=== PATIENT | male | born 1945 | race Caucasian/White ===

== ENCOUNTER 2023-05-25 09:12 | Emergency (ER) | payer MEDICARE, SELFPAY ==
[2023-05-25 09:17] VITALS: BP 200/100; PULSE 88; RESP 18; TEMP 36.7; O2SAT 98; BMI 28.7
--- NOTE | 2023-05-25 09:23 | PC.NURSE ---
PT C/O BILATERAL FOOT ITCHING. PT DOES APPEARS TO HAVE CHRONIC DISCOLORATION TO BILATERAL FOOT. PT STATES ATTEMPTED CREAM AT HOME WITH NO RELIEF. BILATERAL PEDAL PULSE STRONG
--- NOTE | 2023-05-25 09:34 | ED.SKABFB1 ---
HPI - Skin/Abscess/Foreign Bdy General Chief complaint: Skin/Abscess/Foreign Body Stated complaint: rash Time Seen by Provider: 05/25/23 09:34 Source: patient Mode of arrival: walk-in History of Present Illness HPI narrative: Presents to emergency department complaining of pruritus. Patient states he has been itchy since yesterday on my worse to bilateral feet and ankles and arms and back. He denies any rashes. Denies ever having anything like this before. He did an IV no bath and washed his feet and nothing has helped. He states he was not able to sleep all night because of the itchiness. She had some generic Benadryl he thinks he took 1 pill last night but did not take any this morning. He is on Coumadin his INR was 2.5 last time he had it checked last week. He denies any hematuria, dysuria. She denies any new medications. He has not changed detergents, or been exposed to anything unusual. Patient's states if he had a steroid he will feel better. He denies any nausea, vomiting. He states he took his hydralazine 100 mg by mouth this morning. Related Data Previous Rx's Medication Instructions Recorded hydroxyzine HCl 25 mg tablet 25 mg PO TID PRN itching #20 tabs 05/25/23 Allergies Allergy/AdvReac Type Severity Reaction Status Date / Time aspirin Allergy Unknown Verified 05/25/23 09:32 cephalexin [From Keflex] Allergy Unknown Verified 05/25/23 09:32 codeine Allergy Unknown Verified 05/25/23 09:32 indomethacin [From Indocin] Allergy Unknown Verified 05/25/23 09:32 metoclopramide [From Reglan] Allergy Unknown Verified 05/25/23 09:32 minocycline Allergy Unknown Verified 05/25/23 09:32 Penicillins Allergy Unknown Verified 05/25/23 09:32 Sulfa (Sulfonamide Allergy Unknown Verified 05/25/23 09:32 Antibiotics) tetracycline Allergy Unknown Verified 05/25/23 09:32 erytromycin ethylsuccinate Allergy Unknown Uncoded 05/25/23 09:32 Review of Systems ROS Status of ROS 10 or more systems reviewed and unremarkable except as noted in history and below Exam Narrative Exam Narrative: Nurses notes and vital signs reviewed and patient is not hypoxic. General: Nontoxic, Well-appearing and in no apparent distress. Skin: Warm, dry, no pallor noted. Excoriation to bilateral lower extremities feet and ankles. Right mid back and forearms. Head: Normocephalic, atraumatic. Neck: Supple, non-tender. Eye: Pupils are equal, round and EOMI. No scleral icterus. Ears, Nose, Mouth, and Throat: TM clear, no posterior oropharynx erythema or nasal mucosal hypertrophy, uvula is mid-line Oral mucosa is moist Cardiovascular: Regular Rate and Rhythm without murmur, gallop or rub. Respiratory: No accessory muscle use or respiratory distress. Lungs are clear to auscultation, no wheezing, rales or rhonchi Chest Wall: no tenderness Back: No midline thoracic or lumbar vertebral tenderness. No CVA tenderness Musculoskeletal: normal ROM, no calf or popliteal tenderness, no lower extremity edema/swelling, GI: Abdomen is soft, non-distended. Normal bowel sounds. No masses appreciated. No tenderness to palpation. No rebound, guarding, or rigidity noted. Neurological: A&O x4. No cranial nerve dysfunction observed. No truncal ataxia. Moves all extremities. Psychiatric: Cooperative and interactive. Normal mood and affect. Constitutional Vital Signs, click to edit/add: Last Vital Signs Temp 98.0 F 05/25/23 09:17 Pulse 88 05/25/23 09:17 Resp 18 05/25/23 09:17 BP 150/80 H 05/25/23 13:03 Pulse Ox 98 05/25/23 09:17 O2 Del Method Room Air 05/25/23 09:17 Course Vital Signs Vital signs: Vital Signs Temperature 98.0 F 05/25/23 09:17 Pulse Rate 88 05/25/23 09:17 Respiratory Rate 18 05/25/23 09:17 Blood Pressure 200/100 H 05/25/23 09:17 Pulse Oximetry 98 05/25/23 09:17 Oxygen Delivery Method Room Air 05/25/23 09:17 Temperature 98.0 F 05/25/23 09:17 Pulse Rate 88 05/25/23 09:17 Respiratory Rate 18 05/25/23 09:17 Blood Pressure 150/80 H 05/25/23 13:03 Pulse Oximetry 98 05/25/23 09:17 Oxygen Delivery Method Room Air 05/25/23 09:17 MDM - Skin/Abscess/Foreign Bdy MDM Narrative Medical decision making narrative: Patient was given Benadryl which helped a little bit but was still stating that he was a chief. Patient was given Decadron. He has requested steroid. I did lab work just because of the patient's history. We will also discussed warfarin rash but there is no signs of erythema multiforme. Patient has chronic kidney disease. The rest of his labs are unremarkable. Patient was given a prescription for Hydroxyzine, and advised follow-up with primary care doctor in the morning. At this time the patient is without objective evidence of an acute process requiring hospitalization or inpatient management. The patient has remained hemodynamically stable. No additional indication for emergent studies at this time. I answered all questions. Discussed discharge instructions including standard anticipatory guidance and what should prompt a return to the emergency department, including if they get worse are not getting better or develops any new or concerning symptoms. I've given them specific time frame in which to follow-up, and who to follow-up with. The patient demonstrates understanding. Patient is nontoxic and stable for discharge with outpatient follow-up. This note was created with the assistance of a speech recognition program. Although the intention is to generate documents that actually reflects the content of the visit, no guarantees can be provided that every mistake has been identified and corrected by editing. Differential Diagnosis Differential diagnosis: Likely abscess of skin or subcutaneous tissue, viral exanthem, dermatophytosis, urticaria, herpes zoster, allergic reaction to drug, cellulitis, eczema, insect bites, impetigo and contact dermatitis Lab Data Attestation: I reviewed the patient's lab results. Labs: Lab Results 05/25/23 Range/Units 09:49 WBC 7.7 (4.0-11.0) 10^3/uL RBC 3.66 L (4.70-6.10) 10^6/uL Hgb 11.5 L (14.0-18.0) g/dL Hct 34.3 L (42.0-54.0) % MCV 93.7 (80.0-94.0) fL MCH 31.4 (25.9-34.0) pg MCHC 33.5 (29.9-35.2) g/dL RDW 14.2 (11.0-15.0) % Plt Count 175 (150-450) 10^3/uL MPV 9.3 L (9.5-13.5) fL Neut % (Auto) 71.4 (43.0-75.0) % Lymph % (Auto) 12.7 L (20.5-60.0) % [place] % (Auto) 9.4 (1.7-12.0) % Eos % (Auto) 5.6 (0.9-7.0) % Baso % (Auto) 0.5 (0.2-2.0) % Neut # (Auto) 5.5 (1.4-6.5) 10^3/uL Lymph # (Auto) 1.0 L (1.2-3.8) 10^3/uL [place] # (Auto) 0.7 (0.3-0.8) 10^3/uL Eos # (Auto) 0.4 (0.0-0.7) 10^3/uL Baso # (Auto) 0.0 (0.0-0.1) 10^3/uL Abs Immat Gran (auto) 0.03 (0.00-0.03) 10^3/uL Imm/Tot Granulo (auto) 0.4 (0.0-0.5) % PT 21.9 H (9.0-11.6) sec INR 2.16 Sodium 141 (136-145) mmol/L Potassium 3.4 L (3.5-5.1) mmol/L Chloride 103 (98-107) mmol/L Carbon Dioxide 28.5 (21.0-32.0) mmol/L Anion Gap 12.9 BUN 26.0 H (7.0-18.0) mg/dL Creatinine 2.03 H (0.70-1.30) mg/dL Est GFR ( Amer) 39 L (>=60) Est GFR (Non-Af Amer) 32 L (>=60) BUN/Creatinine Ratio 12.8 Glucose 97 (74-106) mg/dL Calcium 8.4 L (8.5-10.1) mg/dL Total Bilirubin 0.4 (0.2-1.0) mg/dL AST 13 L (15-37) U/L ALT 18 (16-63) U/L Alkaline Phosphatase 94 (46-116) U/L Total Protein 7.6 (6.4-8.2) g/dL Albumin 3.8 (3.4-5.0) g/dL Globulin 3.8 g/dL Albumin/Globulin Ratio 1.0 Discharge Plan Discharge Chief Complaint: Skin/Abscess/Foreign Body Clinical Impression: Dermatitis, Chronic kidney disease (CKD), Hypertension Patient Disposition: Home, Self-Care Time of Disposition Decision: 13:06 Condition: Good Mode of Transportation: Private Vehicle Prescriptions / Home Meds: New hydroxyzine HCl 25 mg tablet 25 mg PO TID PRN (Reason: itching) Qty: 20 0RF Instructions: Chronic Kidney Disease (ED), Chronic Hypertension (ED), Dermatitis (ED) Stand Alone Forms: Portal Instructions Referrals: Physician,Non-Staff, MD [Primary Care Provider] - 1 week Discharge Date/Time: 05/25/23 13:19
[2023-05-25] MEDS: DIPHENHYDRAMINE HCL 50 MG/ML (1ML) VIAL IV (09:55)
[2023-05-25 09:58] LABS: Basophils Percent Auto 0.5 % (0.2-2.0); Eosinophils Absolute Auto 0.4 10^3/uL (0.0-0.7); Eosinophils Percent Auto 5.6 % (0.9-7.0); Hematocrit 34.3 % (42.0-54.0); Hemoglobin 11.5 g/dL (14.0-18.0); Immature Granulocytes Abs Auto 0.03 10^3/uL (0.00-0.03); Immature Granulocytes Pct Auto 0.4 % (0.0-0.5); Lymphocytes Percent Auto 12.7 % (20.5-60.0); Mean Corpuscular HGB Conc 33.5 g/dL (29.9-35.2); Mean Corpuscular Hemoglobin 31.4 pg (25.9-34.0); Mean Corpuscular Volume 93.7 fL (80.0-94.0); Mean Platelet Volume 9.3 fL (9.5-13.5); Monocytes Absolute Auto 0.7 10^3/uL (0.3-0.8); Monocytes Percent Auto 9.4 % (1.7-12.0); Neutrophils Absolute Auto 5.5 10^3/uL (1.4-6.5); Neutrophils Percent Auto 71.4 % (43.0-75.0); Platelet Count 175 10^3/uL (150-450); Red Blood Count 3.66 10^6/uL (4.70-6.10); Red Cell Distribution Width 14.2 % (11.0-15.0); White Blood Count 7.7 10^3/uL (4.0-11.0)
[2023-05-25 10:18] LABS: INR 2.16; Prothrombin Time 21.9 sec (9.0-11.6)
[2023-05-25 10:24] VITALS: BP 220/100
[2023-05-25] MEDS: HYDRALAZINE HCL 25 MG TABLET 50 MG PO (10:24)
[2023-05-25 10:25] LABS: Alanine Aminotransferase 18 U/L (16-63); Albumin Level 3.8 g/dL (3.4-5.0); Alkaline Phosphatase 94 U/L (46-116); Anion Gap 12.9; Aspartate Amino Transferase 13 U/L (15-37); BUN Creatinine Ratio 12.8; Bilirubin Total 0.4 mg/dL (0.2-1.0); Calcium 8.4 mg/dL (8.5-10.1); Carbon Dioxide 28.5 mmol/L (21.0-32.0); Chloride 103 mmol/L (98-107); Estimated GFR (African America 39 (>=60); Estimated GFR (Non-African Ame 32 (>=60); Globulin 3.8 g/dL; Glucose 97 mg/dL (74-106); Potassium 3.4 mmol/L (3.5-5.1); Sodium 141 mmol/L (136-145); Total Protein 7.6 g/dL (6.4-8.2)
[2023-05-25 11:35] VITALS: BP 220/100
[2023-05-25 12:21] VITALS: BP 220/100
[2023-05-25] MEDS: LORAZEPAM 2 MG/ML 1 ML VIAL 1 MG IV (12:21)
[2023-05-25] MEDS: ENALAPRILAT DIHYDRATE 1.25 MG/ML VIAL 2.5 MG IV (12:21)
[2023-05-25 13:03] VITALS: BP 150/80
== END 2023-05-25 13:19 | disposition home or self-care (01) ==
PROVIDERS: Emergency Provider Emergency Medicine
DX: Z79.01 Long term (current) use of anticoagulants (principal); L30.9 Dermatitis, unspecified; I12.9 Hypertensive chronic kidney disease with stage 1 through stage 4 chronic kidney disease, or unspecified chronic kidney disease; N18.9 Chronic kidney disease, unspecified
CPT/HCPCS: 36415; 80053; 85025; 85610; 96374; 96375; 99284

== ENCOUNTER 2023-06-02 20:13 | Emergency (ER) | payer MEDICARE, SELFPAY ==
[2023-06-02 20:39] VITALS: BP 179/79; PULSE 87; RESP 18; TEMP 37.1; BMI 26.2
--- NOTE | 2023-06-02 22:05 | ED.GENADUL1 ---
HPI - General Adult General Chief complaint: Abdominal Pain Stated complaint: constipation Time Seen by Provider: 06/02/23 21:57 Source: patient Mode of arrival: walker History of Present Illness HPI narrative: This 77-year-old male presents for evaluation of constipation. He states he has not taken his MiraLAX or stool softeners in the past 3 days and has not been able to have a bowel movement for the past 3 days. He did take MiraLAX this morning. He is not passing gas. He states he is unable to have a bowel movement. He is mildly nauseated but not had any vomiting. He has not recently had any diarrhea. He is not on any narcotic analgesics. He denies any chest pain or shortness of breath. He has been urinating normally. Related Data Home Medications Medication Instructions Recorded Confirmed carvedilol 6.25 mg tablet 6.25 mg PO DAILY 06/02/23 06/02/23 duloxetine 60 mg capsule,delayed 60 mg PO QAM 06/02/23 06/02/23 release dutasteride 0.5 mg capsule 0.5 mg PO DAILY 06/02/23 06/02/23 lactulose 10 gram/15 mL oral 15 ml PO DAILY 06/02/23 06/02/23 solution (Constulose) liothyronine 5 mcg tablet 5 mcg PO DAILY 06/02/23 06/02/23 magnesium oxide 400 mg (241.3 mg 400 mg PO DAILY 06/02/23 06/02/23 magnesium) tablet montelukast 10 mg tablet 10 mg PO DAILY 06/02/23 06/02/23 pantoprazole 20 mg tablet,delayed 20 mg PO DAILY 06/02/23 06/02/23 release rosuvastatin 5 mg tablet 5 mg PO DAILY 06/02/23 06/02/23 tamsulosin 0.4 mg capsule 0.4 mg PO BID 06/02/23 06/02/23 warfarin 5 mg tablet 5 mg PO DAILY 06/02/23 06/02/23 Previous Rx's Medication Instructions Recorded hydroxyzine HCl 25 mg tablet 25 mg PO TID PRN itching #20 tabs 05/25/23 Allergies Allergy/AdvReac Type Severity Reaction Status Date / Time aspirin Allergy Unknown Verified 05/25/23 09:32 cephalexin [From Keflex] Allergy Unknown Verified 05/25/23 09:32 codeine Allergy Unknown Verified 05/25/23 09:32 indomethacin [From Indocin] Allergy Unknown Verified 05/25/23 09:32 metoclopramide [From Reglan] Allergy Unknown Verified 05/25/23 09:32 minocycline Allergy Unknown Verified 05/25/23 09:32 Penicillins Allergy Unknown Verified 05/25/23 09:32 Sulfa (Sulfonamide Allergy Unknown Verified 05/25/23 09:32 Antibiotics) tetracycline Allergy Unknown Verified 05/25/23 09:32 erytromycin ethylsuccinate Allergy Unknown Uncoded 05/25/23 09:32 Review of Systems ROS Status of ROS 10 or more systems reviewed and unremarkable except as noted in history and below Exam Narrative Exam Narrative: Nurses note and vital signs reviewed and patient is not hypoxic.He is lying on his left side, no respiratory distress General: The patient appears well and in no apparent distress. Patient is resting comfortably on cart. Skin: Warm, dry, no pallor noted. There is no rash noted. Head: Normocephalic, atraumatic Eye: Normal conjunctiva, no drainage, EOMI. PERRL Cardiovascular: Regular Rate and Rhythm 1S2, no murmurs rubs or gallops appreciated Respiratory: Patient is in no distress, no accessory muscle use, lungs are clear to auscultation, no wheezing, rales or rhonchi Back: non-tender, no CVA tenderness bilaterally to percussion. GI: Normal bowel sounds, Soft with distended, nontender, large amount of soft stool in rectal vault, no rectal masses or bleeding noted Musculoskeletal: The patient has no evidence of calf tenderness, no pitting edema, symmetrical pulses noted bilaterally Neurological: A&O x4, normal speech Psychiatric: Cooperative Constitutional Vital Signs, click to edit/add: Last Vital Signs Temp 98.7 F 06/02/23 20:39 Pulse 87 06/02/23 20:39 Resp 18 06/02/23 20:39 BP 179/79 H 06/02/23 20:39 Course Course Hospital Course: 50 cc of surgilube was placed into the patients rectum and approx 30 minutes later he had a large formed bowel movmement, he then received a soap suds enema and passed a large volume of soft stool with resolution of his discomfort. He will be discharged home with [facility] to resume his medications to prevent constipation and a Rx for colace. Vital Signs Vital signs: Vital Signs Temperature 98.7 F 06/02/23 20:39 Pulse Rate 87 06/02/23 20:39 Respiratory Rate 18 06/02/23 20:39 Blood Pressure 179/79 H 06/02/23 20:39 Temperature 98.7 F 06/02/23 20:39 Pulse Rate 87 08 20:39 Respiratory Rate 18 06/02/23 20:39 Blood Pressure 179/79 H 06/02/23 20:39 Medical Decision Making [facility] Narrative Medical decision making narrative: This 77-year-old male presents for evaluation of constipation for the past 3 days. He is supposed to be taking MiraLAX on a daily basis but did not take it for the past 3 days until earlier today when he realized he was constipated. His abdomen is soft. He has not having any vomiting. He has not had any narcotic analgesics. His abdomen was soft. There was a large volume of soft stool in his rectum that he was unable to pass. 50 mL of surgery lube was placed into the rectum to loosen up his stool and he was unable to have a bowel movement on his own. He was then given a soapsuds enema with a large volume of stool recovered. He is feeling better and will be discharged home with prescription for Colace to use for the next 10 days. Discharge Plan Discharge Chief Complaint: Abdominal Pain Clinical Impression: Constipation Patient Disposition: Home, Self-Care Time of Disposition Decision: 23:38 Condition: Good Prescriptions / Home Meds: No Action hydroxyzine HCl 25 mg tablet 25 mg PO TID PRN (Reason: itching) Qty: 20 0RF carvedilol 6.25 mg tablet 6.25 mg PO DAILY duloxetine 60 mg capsule,delayed release(DR/EC) 60 mg PO QAM dutasteride 0.5 mg capsule 0.5 mg PO DAILY lactulose [Constulose] 10 gram/15 mL solution 15 ml PO DAILY liothyronine 5 mcg tablet 5 mcg PO DAILY magnesium oxide 400 mg (241.3 mg magnesium) tablet 400 mg PO DAILY montelukast 10 mg tablet 10 mg PO DAILY pantoprazole 20 mg tablet,delayed release (DR/EC) 20 mg PO DAILY rosuvastatin 5 mg tablet 5 mg PO DAILY tamsulosin 0.4 mg capsule 0.4 mg PO BID warfarin 5 mg tablet 5 mg PO DAILY Stand Alone Forms: Portal Instructions Referrals: Physician,Non-Staff, MD [Primary Care Provider] - 1 week
== END 2023-06-03 00:13 | disposition home or self-care (01) ==
PROVIDERS: Emergency Provider Emergency Medicine
DX: K59.00 Constipation, unspecified (principal); Z79.899 Other long term (current) drug therapy; Z79.01 Long term (current) use of anticoagulants
CPT/HCPCS: 99283

== ENCOUNTER 2023-08-25 14:07 | Emergency (ER) | payer MEDICARE, SELFPAY ==
[2023-08-25 14:09] VITALS: BP 184/96; PULSE 71; RESP 20; TEMP 36.9; O2SAT 98; BMI 25.7
--- NOTE | 2023-08-25 14:26 | XR_ITS ---
The [address] [address] Patient Name: ALBIN VILLALTA MRN: [id number] date: 1945 Sex: M Assigned Patient Location: ER Current Patient Location: ED.MAIN Accession/Order Number: [id number] Exam Date: 08/25/2023 14:40 Report Date: 08/25/2023 15:19 At the request of: SHANNON GREGORY Procedure: XR abdomen 1V EXAMINATION: XR abdomen 1V HISTORY: constipation , post abdominal pain, painful to sit COMPARISON: No relevant comparison available. FINDINGS: BOWEL GAS PATTERN: Large amount of stool within rectal vault. No abnormal bowel dilation or evidence of obstruction. CALCIFICATIONS: None significant. OTHER: Right scoliotic curvature of lumbar spine. Prior left hip replacement. Filter within the IVC. XR/XR abdomen 1V IMPRESSION: 1. Large stool ball within rectal vault suggestive of fecal impaction. No bowel obstruction. Electronically authenticated by: RILEY NEVES Date: 08/25/2023 15:19
--- NOTE | 2023-08-25 14:27 | ED.ABDPAIN1 ---
Documented by User: JUAN Lyons 08/25/23 16:03 HPI - Abdominal Pain General Chief Complaint: Abdominal Pain Stated Complaint: CONSTIPATION Time Seen by Provider: 08/25/23 14:26 Source: patient Mode of arrival: ambulance Limitations: no limitations History of Present Illness HPI narrative: 77-year-old male presents by squad for requesting an enema for constipation. His last good sized bowel movement was 3 days ago. He tried MiraLAX and a couple fleets enemas today with minimal relief. He is still passing gas. He states that he is uncomfortable. Denies radiation of pain. Denies fever, back pain, dysuria, n/v/d Related Data Home Medications Medication Instructions Recorded Confirmed carvedilol 6.25 mg tablet 6.25 mg PO DAILY 06/02/23 06/02/23 duloxetine 60 mg capsule,delayed 60 mg PO QAM 06/02/23 06/02/23 release dutasteride 0.5 mg capsule 0.5 mg PO DAILY 06/02/23 06/02/23 lactulose 10 gram/15 mL oral 15 ml PO DAILY 06/02/23 06/02/23 solution (Constulose) liothyronine 5 mcg tablet 5 mcg PO DAILY 06/02/23 06/02/23 magnesium oxide 400 mg (241.3 mg 400 mg PO DAILY 06/02/23 06/02/23 magnesium) tablet montelukast 10 mg tablet 10 mg PO DAILY 06/02/23 06/02/23 pantoprazole 20 mg tablet,delayed 20 mg PO DAILY 06/02/23 06/02/23 release rosuvastatin 5 mg tablet 5 mg PO DAILY 06/02/23 06/02/23 tamsulosin 0.4 mg capsule 0.4 mg PO BID 06/02/23 06/02/23 warfarin 5 mg tablet 5 mg PO DAILY 06/02/23 06/02/23 Previous Rx's Medication Instructions Recorded hydroxyzine HCl 25 mg tablet 25 mg PO TID PRN itching #20 tabs 05/25/23 Allergies Allergy/AdvReac Type Severity Reaction Status Date / Time aspirin Allergy Unknown Verified 05/25/23 09:32 cephalexin [From Keflex] Allergy Unknown Verified 05/25/23 09:32 codeine Allergy Unknown Verified 05/25/23 09:32 indomethacin [From Indocin] Allergy Unknown Verified 05/25/23 09:32 metoclopramide [From Reglan] Allergy Unknown Verified 05/25/23 09:32 minocycline Allergy Unknown Verified 05/25/23 09:32 Penicillins Allergy Unknown Verified 05/25/23 09:32 Sulfa (Sulfonamide Allergy Unknown Verified 05/25/23 09:32 Antibiotics) tetracycline Allergy Unknown Verified 05/25/23 09:32 erytromycin ethylsuccinate Allergy Unknown Uncoded 05/25/23 09:32 Review of Systems ROS Status of ROS 10 or more systems reviewed and unremarkable except as noted in history and below [facility] Social History Smoking status: Never smoker Exam Narrative Exam Narrative: General: alert, no distress, talking in full an complete sentences skin: warm, dry, intact head: normocephalic, atraumatic eyes: EOMI nose: nares patent neck: supple, trachea midline respiratory: non-labored extremities: FROM x 4, strength +5/5 abd: soft, minimal generalized tenderness, no guarding or rigidity, no peritoneal signs, normal BS neuro: A&Ox3 psych: appropriate mood and affect, cooperative Constitutional Vital Signs, click to edit/add: Last Vital Signs Temp 98.5 F 08/25/23 14:09 Pulse 71 08/25/23 14:09 Resp 20 08/25/23 14:09 BP 184/96 H 08/25/23 14:09 Pulse Ox 98 08/25/23 14:09 O2 Del Method Room Air 08/25/23 14:09 Course Vital Signs Vital signs: Vital Signs Temperature 98.5 F 08/25/23 14:09 Pulse Rate 71 08/25/23 14:09 Respiratory Rate 20 08/25/23 14:09 Blood Pressure 184/96 H 08/25/23 14:09 Pulse Oximetry 98 08/25/23 14:09 Oxygen Delivery Method Room Air 08/25/23 14:09 Temperature 98.5 F 08/25/23 14:09 Pulse Rate 71 08/25/23 14:09 Respiratory Rate 20 08/25/23 14:09 Blood Pressure 184/96 H 08/25/23 14:09 Pulse Oximetry 98 08/25/23 14:09 Oxygen Delivery Method Room Air 08/25/23 14:09 MDM - Abdominal Pain MDM Narrative Medical decision making narrative: Prelim x-ray shows a fecal impaction will be given a soapsuds enema. Patient had significant relief as fecal impaction was removed and he had 3 large bowel movements and complete relief of his pain. F/u with PCP. afebrile, not tachypneic, not tachycardic, tolerating p.o., not hypoxic, non toxic appearing and ambulating at baseline and hemodynamically stable to be d/c. answered all questions. pt in agreement with tx. educated when to return to ER. Discharge Plan Discharge Chief Complaint: Abdominal Pain Clinical Impression: Fecal impaction in rectum Constipation Qualifiers: Constipation type: unspecified constipation type Qualified Code(s): K59.00 - Constipation, unspecified Patient Disposition: Home, Self-Care Time of Disposition Decision: 16:01 Condition: Good Mode of Transportation: Private Vehicle Prescriptions / Home Meds: No Action hydroxyzine HCl 25 mg tablet 25 mg PO TID PRN (Reason: itching) Qty: 20 0RF carvedilol 6.25 mg tablet 6.25 mg PO DAILY duloxetine 60 mg capsule,delayed release(DR/EC) 60 mg PO QAM dutasteride 0.5 mg capsule 0.5 mg PO DAILY lactulose [Constulose] 10 gram/15 mL solution 15 ml PO DAILY liothyronine 5 mcg tablet 5 mcg PO DAILY magnesium oxide 400 mg (241.3 mg magnesium) tablet 400 mg PO DAILY montelukast 10 mg tablet 10 mg PO DAILY pantoprazole 20 mg tablet,delayed release (DR/EC) 20 mg PO DAILY rosuvastatin 5 mg tablet 5 mg PO DAILY tamsulosin 0.4 mg capsule 0.4 mg PO BID warfarin 5 mg tablet 5 mg PO DAILY Instructions: Constipation (ED), Fecal Impaction (ED) Stand Alone Forms: Portal Instructions Referrals: Physician,Non-Staff, [Primary Care Provider] - 1 week Documented by User: Jose Armando Egan MD 08/25/23 16:22 HPI - Abdominal Pain General Chief Complaint: Abdominal Pain Stated Complaint: CONSTIPATION Time Seen by Provider: 10/30/23 14:26 Related Data Home Medications Medication Instructions Recorded Confirmed carvedilol 6.25 mg tablet 6.25 mg PO DAILY 06/02/23 06/02/23 duloxetine 60 mg capsule,delayed 60 mg PO QAM 06/02/23 06/02/23 release dutasteride 0.5 mg capsule 0.5 mg PO DAILY 06/02/23 06/02/23 lactulose 10 gram/15 mL oral 15 ml PO DAILY 06/02/23 06/02/23 solution (Constulose) liothyronine 5 mcg tablet 5 mcg PO DAILY 06/02/23 06/02/23 magnesium oxide 400 mg (241.3 mg 400 mg PO DAILY 06/02/23 06/02/23 magnesium) tablet montelukast 10 mg tablet 10 mg PO DAILY 06/02/23 06/02/23 pantoprazole 20 mg tablet,delayed 20 mg PO DAILY 06/02/23 06/02/23 release rosuvastatin 5 mg tablet 5 mg PO DAILY 06/02/23 06/02/23 tamsulosin 0.4 mg capsule 0.4 mg PO BID 06/02/23 06/02/23 warfarin 5 mg tablet 5 mg PO DAILY 06/02/23 06/02/23 Previous Rx's Medication Instructions Recorded hydroxyzine HCl 25 mg tablet 25 mg PO TID PRN itching #20 tabs 05/25/23 Allergies Allergy/AdvReac Type Severity Reaction Status Date / Time aspirin Allergy Unknown Verified 05/25/23 09:32 cephalexin [From Keflex] Allergy Unknown Verified 05/25/23 09:32 codeine Allergy Unknown Verified 05/25/23 09:32 indomethacin [From Indocin] Allergy Unknown Verified 05/25/23 09:32 metoclopramide [From Reglan] Allergy Unknown Verified 05/25/23 09:32 minocycline Allergy Unknown Verified 05/25/23 09:32 Penicillins Allergy Unknown Verified 05/25/23 09:32 Sulfa (Sulfonamide Allergy Unknown Verified 05/25/23 09:32 Antibiotics) tetracycline Allergy Unknown Verified 05/25/23 09:32 erytromycin ethylsuccinate Allergy Unknown Uncoded 05/25/23 09:32 PFSH PFSH Social History Smoking status: Never smoker Exam Constitutional Vital Signs, click to edit/add: Last Vital Signs Temp 98.5 F 10/30/23 14:09 Pulse 71 08/25/23 14:09 Resp 20 08/25/23 14:09 BP 184/96 H 08/25/23 14:09 Pulse Ox 98 08/25/23 14:09 O2 Del Method Room Air 08/25/23 14:09 Course Vital Signs Vital signs: Vital Signs Temperature 98.5 F 08/25/23 14:09 Pulse Rate 71 08/25/23 14:09 Respiratory Rate 20 08/25/23 14:09 Blood Pressure 184/96 H 08/25/23 14:09 Pulse Oximetry 98 08/25/23 14:09 Oxygen Delivery Method Room Air 08/25/23 14:09 Temperature 98.5 F 08/25/23 14:09 Pulse Rate 71 08/25/23 14:09 Respiratory Rate 20 08/25/23 14:09 Blood Pressure 184/96 H 08/25/23 14:09 Pulse Oximetry 98 08/25/23 14:09 Oxygen Delivery Method Room Air 08/25/23 14:09 MDM - Abdominal Pain MDM Narrative Medical decision making narrative: Prelim x-ray shows a fecal impaction will be given a soapsuds enema. Patient had significant relief as fecal impaction was removed and he had 3 large bowel movements and complete relief of his pain. F/u with PCP. afebrile, not tachypneic, not tachycardic, tolerating p.o., not hypoxic, non toxic appearing and ambulating at baseline and hemodynamically stable to be d/c. answered all questions. pt in agreement with tx. educated when to return to ER. I, Dr Egan, have reviewed the above progress note and course of action in the ER; agree with the above. I have personally seen and evaluated this patient, gone over history and physical, and discussed disposition and treatment plan with the patient. Discharge Plan Discharge Chief Complaint: Abdominal Pain Clinical Impression: Fecal impaction in rectum Constipation Qualifiers: Constipation type: unspecified constipation type Qualified Code(s): K59.00 - Constipation, unspecified Patient Disposition: Home, Self-Care Time of Disposition Decision: 16:01 Condition: Good Mode of Transportation: Private Vehicle Prescriptions / Home Meds: No Action hydroxyzine HCl 25 mg tablet 25 mg PO TID PRN (Reason: itching) Qty: 20 0RF carvedilol 6.25 mg tablet 6.25 mg PO DAILY duloxetine 60 mg capsule,delayed release(DR/EC) 60 mg PO QAM dutasteride 0.5 mg capsule 0.5 mg PO DAILY lactulose [Constulose] 10 gram/15 mL solution 15 ml PO DAILY liothyronine 5 mcg tablet 5 mcg PO DAILY magnesium oxide 400 mg (241.3 mg magnesium) tablet 400 mg PO DAILY montelukast 10 mg tablet 10 mg PO DAILY pantoprazole 20 mg tablet,delayed release (DR/EC) 20 mg PO DAILY rosuvastatin 5 mg tablet 5 mg PO DAILY tamsulosin 0.4 mg capsule 0.4 mg PO BID warfarin 5 mg tablet 5 mg PO DAILY Instructions: Constipation (ED), Fecal Impaction (ED) Stand Alone Forms: Portal Instructions Referrals: Physician,Non-Staff, MD [Primary Care Provider] - 1 week
== END 2023-08-25 16:50 | disposition home or self-care (01) ==
PROVIDERS: Emergency Provider Emergency Medicine; PCP Internal Medicine
DX: K56.41 Fecal impaction (principal); Z79.899 Other long term (current) drug therapy; Z79.890 Hormone replacement therapy; Z79.01 Long term (current) use of anticoagulants
CPT/HCPCS: 74018; 99283

== ENCOUNTER 2023-11-28 16:11 | Emergency (ER) | payer MEDICARE, SELFPAY ==
--- NOTE | 2023-11-28 16:17 | ED.GENADUL1 ---
HPI - General Adult General Chief complaint: Abdominal Pain Stated complaint: Frequent Urination, Constipation Time Seen by Provider: 11/28/23 16:17 History of Present Illness HPI narrative: This patient is here complaining of frequency of urination. He has not seen any blood in urine. He does not have any back or flank pain. He is a very limited historian. He does admit to having a TURP several years ago. He admits to some hesitancy urination. He also admits to not having much of a bowel movement for the last several days despite taking some [id number] laxatives. He is not currently on any antibiotics. Allergy was noted. Related Data Home Medications Medication Instructions Recorded Confirmed carvedilol 6.25 mg tablet 6.25 mg PO DAILY 06/02/23 11/28/23 duloxetine 60 mg capsule,delayed 60 mg PO QAM 06/02/23 11/28/23 release dutasteride 0.5 mg capsule 0.5 mg PO DAILY 06/02/23 11/28/23 lactulose 10 gram/15 mL oral 15 ml PO DAILY 06/02/23 06/02/23 solution (Constulose) liothyronine 5 mcg tablet 5 mcg PO DAILY 06/02/23 11/28/23 magnesium oxide 400 mg (241.3 mg 400 mg PO DAILY 06/02/23 11/28/23 magnesium) tablet montelukast 10 mg tablet 10 mg PO DAILY 06/02/23 11/28/23 pantoprazole 20 mg tablet,delayed 20 mg PO DAILY 06/02/23 06/02/23 release rosuvastatin 5 mg tablet 5 mg PO DAILY 06/02/23 11/28/23 tamsulosin 0.4 mg capsule 0.4 mg PO BID 06/02/23 11/28/23 warfarin 5 mg tablet 5 mg PO DAILY 06/02/23 11/28/23 baclofen 10 mg tablet 10 mg PO BEDTIME 11/28/23 11/28/23 furosemide 40 mg tablet 40 mg PO DAILY 11/28/23 11/28/23 Previous Rx's Medication Instructions Recorded hydroxyzine HCl 25 mg tablet 25 mg PO TID PRN itching #20 tabs 05/25/23 Allergies Allergy/AdvReac Type Severity Reaction Status Date / Time aspirin Allergy Unknown Verified 05/25/23 09:32 cephalexin [From Keflex] Allergy Unknown Verified 05/25/23 09:32 codeine Allergy Unknown Verified 05/25/23 09:32 indomethacin [From Indocin] Allergy Unknown Verified 05/25/23 09:32 metoclopramide [From Reglan] Allergy Unknown Verified 05/25/23 09:32 minocycline Allergy Unknown Verified 05/25/23 09:32 Penicillins Allergy Unknown Verified 05/25/23 09:32 Sulfa (Sulfonamide Allergy Unknown Verified 05/25/23 09:32 Antibiotics) tetracycline Allergy Unknown Verified 05/25/23 09:32 erytromycin ethylsuccinate Allergy Unknown Uncoded 05/25/23 09:32 PFSH PFSH Social History Smoking status: Never smoker Exam Narrative Exam Narrative: Awake alert does not appear to be uncomfortable. Examination abdomen it is not distended there is no peritoneal findings or discomfort with palpation. External genitalia appear normal. He does have a diaper on. His legs do not show any peripheral edema. We asked the patient to void and then we did a postvoid bladder scan. He voided approximately 400 cc clear yellow urine. His postvoid bladder scan showed 70 cc urine. Medical Decision Making MDM Narrative Medical decision making narrative: The patient's urinalysis does not indicate any infection. His kidney function is stable. Glucose is normal. Does not have any indication of sepsis or urinary tract infection at this time. He has constipated, the abdominal series confirms stool bolus at the rectum. We will advise a fleets enema. Discharge Plan Discharge Chief Complaint: Abdominal Pain Clinical Impression: Acute constipation Patient Disposition: Home, Self-Care Time of Disposition Decision: 17:38 Prescriptions / Home Meds: No Action hydroxyzine HCl 25 mg tablet 25 mg PO TID PRN (Reason: itching) Qty: 20 0RF carvedilol 6.25 mg tablet 6.25 mg PO DAILY duloxetine 60 mg capsule,delayed release(DR/EC) 60 mg PO QAM dutasteride 0.5 mg capsule 0.5 mg PO DAILY lactulose [Constulose] 10 gram/15 mL solution 15 ml PO DAILY liothyronine 5 mcg tablet 5 mcg PO DAILY magnesium oxide 400 mg (241.3 mg magnesium) tablet 400 mg PO DAILY montelukast 10 mg tablet 10 mg PO DAILY pantoprazole 20 mg tablet,delayed release (DR/EC) 20 mg PO DAILY rosuvastatin 5 mg tablet 5 mg PO DAILY tamsulosin 0.4 mg capsule 0.4 mg PO BID warfarin 5 mg tablet 5 mg PO DAILY baclofen 10 mg tablet 10 mg PO BEDTIME furosemide 40 mg tablet 40 mg PO DAILY Additional Instructions: Use fleets enema. Antibiotics are not necessary as there is no infection. Follow-up with your primary care doctor as needed Stand Alone Forms: Portal Instructions Referrals: TAHIR MCGUIRE MD [Primary Care Provider] - 1 week
[2023-11-28 16:20] VITALS: BP 220/94; PULSE 75; RESP 16; TEMP 36.8; O2SAT 100; BMI 27.0
--- OUTSIDE RECORDS SUMMARY | 2023-11-28 16:27 | XMS_ITS | CCD ---
Author Name Unknown Address [address] [place] [address] Organization [facility] Care Team Providers Care Protective Signal Repairer Name Role Phone YARBROUGHCLARITZA Coleman Unavailable Unavailable NADERER, RUBEN SHIRA Unavailable Unavailabl e NADERER, RUBEN SHIRA Unavailable Unavailabl e NADERER, RUBEN SHIRA Unavailable Unavailabl e NADERER, RUBEN SHIRA Unavailable Unavailabl e NADERER, RUBEN SHIRA Unavailable Unavailabl e NADERER, RUBEN SHIRA Unavailable Unavailabl e NADERER, RUBEN SHIRA Unavailable Unavailabl e NADERER, RUBEN SHIRA Unavailable Unavailabl e NADERER, RUBEN SHIRA Unavailable Unavailabl e NADERER, RUBEN SHIRA Unavailable Unavailabl e NADERER, RUBEN SHIRA Unavailable Unavailabl e NADERER, RUBEN SHIRA Unavailable Unavailabl e NADERER, RUBEN SHIRA Unavailable Unavailabl e KAMMONA, KITTY A Unavailable Unavailable CINDY, ISIDRO FRANKY Unavailable Unavailable CINDY, ISIDRO FRANKY Unavailable Unavailable CINDY, ISIDRO FRANKY Unavailable Unavailable CINDY, ISIDRO FRANKY Unavailable Unavailable CINDY, ISIDRO FRANKY Unavailable Unavailable CINDY, ISIDRO FRANKY Unavailable Unavailable FORRESTERALBERT MENA Unavailable Unavailab le EDD, AHMED Unavailable Unavailable EDD, AHMED Unavailable Unavailable CINDY, ISIDRO FRANKY Unavailable Unavailable UNKNOWN, PHYSICIAN Referring Unavailable CALEB, INOCENCIA Admitting Unavailable JENNIFER YOST Attending Unavailable THEE MCGUIRE Primary Care Unavailable MAYNOR, DR HARO Primary Care Unavailable EDMUND POWELL Admitting Unavailable EDMUND POWELL Attending Unavailable EDMUND POWELL Consulting Unavailable SARY RIGGS Consulting Unavailable DEVENDRA GUTIERREZ Consulting Unavailable MELANIONE, DR HARO Primary Care Unavailable PAY ., DR CASANOVA Admitting Unavailable PAY ., DR CASANOVA Attending Unavailable PAY ., DR CASANOVA Consulting Unavailable VALONE, DR HARO Primary Care Unavailable VALONE, DR HARO Admitting Unavailable VALONE, DR HARO Attending Unavailable VALONE, DR HARO Primary Care Unavailable TERESA ., DR RICKS Admitting Unavailable TERESA ., DR RICKS Attending Unavailable WEST, DR MIKA Romero Consulting Unavailable ALEXIS ., JUAN FELDER Consulting UnavailJOSSELYN Cameron Consulting Unavailable NON STAFF Primary Care Provider UnavailLINO Drew Emergency Provider MarjorieBrittany Unavailable Michael Amador Attending Unavailable Michael Amador Admitting Unavailable NON STAFF Primary Care Unavailable DEBRA MUNGUIA Attending Unavailable Allergies Allergy Classification Reported Allergen(s) Allergy Type Date of Onset Reaction(s) Facility (3 sources) Aspirin Drug Allergy 06-24-20 13 Unknown Reaction [facility] Repository (3 sources) Cephalexin Drug Allergy 06-24-20 13 Unknown [facility] (3 sources) Codeine Drug Allergy 06-24-20 13 Unknown Reaction [facility] (2 sources) Erythromycin Drug Allergy 11-23-19 19 Unknown Reaction [facility] (2 sources) Iothalamate Drug Allergy 06-24-20 13 [facility] (3 sources) Minocycline Drug Allergy 06-24-20 13 Unknown Reaction [facility] (1 source) Penicillin Drug Allergy 11-23-19 19 [facility] (2 sources) Procyclidine Drug Allergy 06-24-20 13 [facility] (1 source) Sulfamethoxazole / Trimethoprim Drug Allergy 11-23-19 19 [facility] (3 sources) Sulfonamides (Antibiotic) Drug allergy (disorder) 04-27-20 17 Unknown Reaction [facility] (3 sources) Tetracycline Drug Allergy 06-24-20 13 Unknown Reaction [facility] (2 sources) Penicillins Drug allergy (disorder) 06-24-[address] [facility] Repository (1 source) E.E.S. Drug allergy (disorder) 06-24-[address] [facility] (3 sources) Cephalexin; Translations: [cephalexin] Drug Allergy 10-18-20 23 Unknown Reaction, Unknown [facility] (3 sources) Indomethacin; Translations: [indomethacin] Drug Allergy 10-18-20 Unknown Reaction, Unknown [facility] (1 source) Aspirin Drug Allergy Unknown [facility] Other (1 source) Codeine Drug Allergy Unknown [facility] Other (1 source) Erythromycin Drug Allergy Unknown [facility] Other (1 source) Metoclopramide Drug Allergy Unknown [facility] Other (1 source) Minocycline Drug Allergy Unknown [facility] Other (1 source) Penicillin G Drug Allergy Unknown Viroblock [facility] Other (1 source) Sulfamethoxazole / Trimethoprim Drug Allergy Unknown [facility] Other (1 source) Tetracycline Drug Allergy Unknown Viroblock [facility] Other (1 source) Aspirin Drug Allergy 10-18-20 [facility] Repository (1 source) Codeine Drug Allergy 10-18-20 [facility] (1 source) Erythromycin Drug Allergy 10-18-20 [facility] (1 source) Minocycline Drug Allergy 10-18-20 [facility] (1 source) Penicillins Drug allergy (disorder) 10-18-20 [facility] (1 source) Sulfonamides (Antibiotic) Drug allergy (disorder) 10-18-20 [facility] (1 source) Tetracycline Drug Allergy 10-18-20 [facility] Medications Current Medications Medication Drug Class(es) Dates Sig (Normalized) Sig (Original) carvedilol 6.25 mg oral tablet (1 source) alpha-Adrenergic Mae, beta-Adrenergic Mae Start: 10-18-2023 Carvedilol Active MG TABLET October 18, 2023 12:00am Centrum - (1 source) clindamycin 300 mg oral capsule (1 source) Lincosamide Antibacterial Start: 10-18-2023 take 300 mg by mouth four times daily Clindamycin Hcl Active 300 MG PO Four times daily 40 October 18, 2023 12:00am Clopidogrel & Aspirin (1 source) DULoxetine 60 mg delayed release oral capsule (2 sources) Serotonin and Norepinephrine Reuptake Inhibitor Start: 10-18-2023 Duloxetine Active MG PO October 18, 2023 12:00am Finerenone (1 source) Start: 10-18-2023 Finerenone (Ke rendia) 10 mg Tablet Active MG TABLET October 18, 2023 12:00am Furosemide (1 source) Loop Diuretic hydrALAZINE hydrochloride 100 mg oral tablet (2 sources) Arteriolar Vasodilator Start: 10-18-2023 Hydralazine Active M G TABLET October 18, 2023 12:00am Lactulose (1 source) Osmotic Laxative Start: 10-18-2023 Lactulose (Constulose) 10 gram/15 mL Syrup Active GM PO October 18, 2023 12:00am levothyroxine sodium 0.15 mg oral tablet (1 source) l-Thyroxine take 1 tablet by mouth once daily in the morning Magnesium (1 source) magnesium oxide 400 mg oral tablet (1 source) Start: 10-18-2023 Magnesium Oxide Active MG TABLET October 18, 2023 12:00am montelukast 10 mg oral tablet (2 sources) Leukotriene Receptor Antagonist Start: 10-18-2023 Montelukast Active MG TABLET October 18, 2023 12:00am pantoprazole 40 mg delayed release oral tablet (2 sources) Proton Pump Inhibitor Start: 10-18-2023 Pantoprazole Active MG PO October 18, 2023 12:00am Polyethylene Glycols (1 source) predniSONE 1 mg oral tablet (1 source) Start: 10-18-2023 Prednisone Active MG TABLET October 18, 2023 12:00am rosuvastatin calcium 5 mg oral tablet (1 source) HMG-CoA Reductase Inhibitor Start: 10-18-2023 Rosuvastatin Active MG TABLET October 18, 2023 12:00am tamsulosin hydrochloride 0.4 mg oral capsule (2 sources) alpha-Adrenergic Mae Start: 10-18-2023 Tamsulosin Active MG PO October 18, 2023 12:00am take 1 capsule by mouth every tw enty-four hours Vitamin D3 (1 source) warfarin sodium 5 mg oral tablet (1 source) Vitamin K Antagonist Start: 10-18-2023 Warfarin Active MG TABLET October 18, 2023 12:00am Problems Active Problems Problem Classification Problem Date Documented Da te Episodic/Chronic Anxiety disorders (1 source) Anxiety disorder, unspecified; Translations: [ANXIETY DISORDER UNSPECIFIED] Onset: 3 Chronic Congestive heart failure; nonhypertensive (1 source) Heart failure, unspecified; Translations: [HEART FAILURE UNSPECIFIED] Onset: 3 Chronic Disorders of lipid metabolism (1 source) Hyperlipidemia, unspecified; Translations: [Hyperlipidemia, unspecified] Onset: 8 Chronic Diverticulosis and diverticulitis (1 source) 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; Translations: [Diverticulosis of large intestine without perforation or abscess without bleeding] Chronic Esophageal disorders (1 source) Gastroesophageal reflux disease without esophagitis; Translations: [Gastro-esophageal reflux disease without esophagitis] Chronic Essential hypertension (2 sources) Essential (primary) hypertension; Translations: [Essential (primary) hypertension] Onset: 7 Chronic Gastroduodenal ulcer (2 sources) Peptic ulcer, site unspecified, unspecified as acute or chronic, without hemorrhage or perforation; Translations: [Peptic ulcer, site unspecified, unspecified as acute or chronic, without hemorrhage or perforation] Onset: 8 Chronic Genitourinary symptoms and ill-defined conditions (2 sources) Frequency of micturition; Translations: [Frequency of micturition] Onset: 8 Episodic Hemorrhoids (2 sources) Residual hemorrhoidal skin tags; Translations: [Hemorrhoids] Onset: 2 Episodic Hypertension with complications and secondary hypertension (1 source) Hypertensive heart disease with heart failure; Translations: [HTN HEART DISEASE W/HEART FAIL] Onset: 3 Chronic Malaise and fatigue (4 sources) Other fatigue; Translations: [Lack of energy] Onset: 7 Episodic Mood disorders (5 sources) Major depressive disorder, single episode, severe without psychotic features; Translations: [Major depressive disorder, recurrent severe without psychotic features] Onset: 8 Chronic Mood disorders (1 source) Mood disorders; Translations: [DEPRESSION UNSPECIFIED] Onset: 3 Other and unspecified benign neoplasm (1 source) History of polyp of colon; Translations: [Personal history of colonic polyps] Episodic Other gastrointestinal disorders (1 source) 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; Translations: [Irritable bowel syndrome with constipation] Chronic Other gastrointestinal disorders (1 source) Constipation; Translations: [Constipation, unspecified] Episodic Other nutritional; endocrine; and metabolic disorders (1 source) Weight loss; Translations: [Abnormal weight loss] Episodic Other skin disorders (2 sources) Localized swelling, mass and lump, head; Translations: [Localized swelling, mass and lump, head] Onset: 3 Episodic Other upper respiratory disease (1 source) Abscess of nasal septum; Translations: [Abscess, furuncle and carbuncle of nose] 10-18-2023 Episodic Suicide and intentional self-inflicted injury (1 source) Suicide attempt, initial encounter; Translations: [Suicide attempt, initial encounter] Onset: 8 Thyroid disorders (1 source) Hypothyroidism, unspecified; Translations: [HYPOTHYROIDISM UNSPECIFIED] Onset: 3 Chronic Unclassified (1 source) CONTACT W/AND (SUSP) EXPOS COVID-19; Translations: [CONTACT W/AND (SUSP) EXPOS COVID-19] Onset: 3 Past or Other Problems Problem Classification Problem Date Documented Da te Episodic/Chronic Abdominal hernia (1 source) Diaphragmatic hernia without obstruction or gangrene; Translations: [DIAPH HERNIA W/O OBST/GANGRENE] Onset: 10-31-2022 Episodic Abdominal pain (5 sources) Generalized abdominal pain; Translations: [Right lower quadrant pain] Onset: 03-12-2018 Episodic Gastrointestinal hemorrhage (4 sources) Hemorrhage of anus and rectum; Translations: [HEMORRHAGE OF ANUS AND RECTUM] Onset: 09-10-2022 Episodic Other aftercare (3 sources) Other retirement (current) drug therapy; Translations: [Other planisher (current) drug therapy] Onset: 03-12-2018 Episodic Other aftercare (1 source) care home (current) use of anticoagulants; Translations: [STONEHAND CURRNT USE ANTICOAGULANTS] Onset: 10-31-2022 Episodic Other and unspecified benign neoplasm (1 source) Personal history of colonic polyps; Translations: [PERSONAL HISTORY OF COLONIC POLYPS] Onset: 09-11-2022 Episodic Other fractures (1 source) Collapsed vertebra, not elsewhere classified, lumbar region, subsequent encounter for fracture with routine healing; Translations: [COLLAPSED VERT NEC LUMB SUB RTN HL] Onset: 07-20-2022 Episodic Other gastrointestinal disorders (1 source) Constipation, unspecified; Translations: [CONSTIPATION UNSPECIFIED] Onset: 05-15-2022 Episodic Other lower respiratory disease (4 sources) Shortness of breath; Translations: [SHORTNESS OF BREATH] Onset: 10-30-2022 Episodic Other nutritional; endocrine; and metabolic disorders (1 source) Abnormal weight loss; Translations: [Abnormal weight loss] Onset: 06-12-2018 Episodic Other upper respiratory infections (1 source) Acute maxillary sinusitis, unspecified; Translations: [Acute maxillary sinusitis, unspecified] Onset: 05-04-2018 Episodic Phlebitis; thrombophlebitis and thromboembolism (1 source) Personal history of other venous thrombosis and embolism; Translations: [PERS HX OTH VENOUS THROMBOSIS AND EMBO] Onset: 10-31-2022 Episodic Residual codes; unclassified (1 source) Acquired absence of other specified parts of digestive tract; Translations: [ACQ ABSENCE OTH PART DIGESTV TRACT] Onset: 10-31-2022 Episodic Unclassified (1 source) Encounter for screening for lipoid disorders; Translations: [Encounter for screening for lipoid disorders] Onset: 06-15-2018 Episodic Results Test Name Value Interpretation Reference Range Facility Activated partial thrombopla stin time (aPTT) in platelet poor plasma by coagulation aOrdered By: Michael Amador on 10-18-2023 aPTT Coag (PPP) [Time] 31.2 s 25.1-36.5 [facility] Comment on above: A hematocrit value g reater than 55% may lead to inaccurate results in coagulation testing. Patients having hematocrit values >55% require a special collection tube for coagulation studies. Please contact the laboratory at [phone] for redraw instructions. Alanine aminotransferase [En zymatic activity/volume] in Serum or PlasmaOrdered By: Michael Amador on 10-18-2023 ALT [Catalytic activity/Vol] 9 U/L 7-52 [facility] Albumin [Mass/volume] in Ser um or Plasma by Bromocresol green (BCG) dye binding methoOrdered By: Michael Amador on 10-18-2023 Albumin BCG dye [Mass/Vol] 3.9 g/dL 3.5-5.7 [facility] Alkaline phosphatase [Enzyma tic activity/volume] in Serum or PlasmaOrdered By: Michael Amador on 10-18-2023 ALP [Catalytic activity/Vol] 65 U/L 34-104 [facility] Aspartate aminotransferase [ Enzymatic activity/volume] in Serum or PlasmaOrdered By: Michael Amador on 10-18-2023 AST [Catalytic activity/Vol] 12 U/L 13-39 [facility] Basophils Auto (Bld) [#/Vol] Ordered By: Michael Amador on 10-18-2023 Basophils (Bld) [#/Vol] 0.0 10*3/uL 0.0-0.2 [facility] Basophils/100 WBC Auto (Bld) Ordered By: Michael Amador on 10-18-2023 Basophils/100 WBC (Bld) 0.3 % . [facility] Bilirubin.total [Mass/volume ] in Serum or PlasmaOrdered By: Michael Amador on 10-18-2023 Bilirubin [Mass/Vol] 0.5 mg/dL 0.3-1.0 [facility] Blood Cultureon 10-18-2023 Bacteria identified Cx Nom (Bld) NO GROWTH 5 DAYS PERFORMED BY: [place] [address] PATHOLOGIST TRANSITION TEACHER DAVID VERA M.D. [facility] Comment on above: Performed By: #### P TT, CUBLD, CBC, LACTIC, CMP, PT #### [facility] [address] [place] [id number] [facility] Bacteria identified Cx Nom (Bld) NO GROWTH 5 DAYS PERFORMED BY: [place] [address] PATHOLOGIST TRANSITION TEACHER DAVID VERA M.D. [facility] Comment on above: Performed By: #### P TT, CUBLD, CBC, LACTIC, CMP, PT #### [facility] [address] [place], [place] [id number] [place] CT sinus wo conon 10-18-2023 CT sinus wo con [facility] [place] [address] [place] [id number] Scan Report Signed Patient: Niels Mccullough JR MR#: [id number] : 1945 Acct:[id number] Age/Sex: 77 / M ADM Date: 10/18/23 Loc: ER Room: Type: [facility] ER Attending Dr: Copies to: Michael Amador APRN Ordering Provider: Michael Amador APRN Date of Service: 10/18/23 CT/CT sinus wo con: swelling nasal septum, abscess CT PARANASAL SINUSES WITHOUT CONTRAST: CLINICAL HISTORY: Swelling at the face and nose for the past 5 days. No relief with antibiotics. COMPARISON: None TECHNIQUE: Contiguous axial unenhanced images were obtained through the paranasal sinuses. Coronal reconstructions were also performed. This CT exam was performed using one or more following dose reduction techniques: Automated exposure control, adjustment of the mA and/or kV according to patient size, or use of iterative reconstruction technique. FINDINGS: There is appropriate development and pneumatization. There is minor frontal, ethmoid and sphenoid mucosal thickening. No air-fluid levels are present. The ostiomeatal complexes are patent. The nasal passages are clear. The no mastoid disease is seen. There is no bony destruction. Incidental note is made of degenerative change at the end of the condyles, greater on the right. The orbital contents appear symmetric. There is soft tissue swelling at the nose. Shotty upper cervical lymph nodes are seen. CT/CT sinus wo con IMPRESSION: MINIMAL CHRONIC SINUSITIS. SOFT TISSUE SWELLING AT THE NOSE. Impression dictated by: Rachel Briseno M.D.10/18/2023 1:17 PM Dictation Location: [place] [address] Transcribed By: [facility] 10/18/23 1317 Dictated By: Rachel Briseno MD 10/18/23 1312 Signed By: 10/18/23 1317 Normal [facility] Calcium [Mass/volume] in Ser um or PlasmaOrdered By: Michael Amador on 10-18-2023 Calcium [Mass/Vol] 9.0 mg/dL 8.6-10.3 [facility] Carbon dioxide, total [Moles /volume] in Serum or PlasmaOrdered By: Michael Amador on 10-18-2023 CO2 [Moles/Vol] 23.9 mmol/L 21.0-31.0 [facility] Chloride [Moles/volume] in S beth or PlasmaOrdered By: Michael Amador on 10-18-2023 Chloride [Moles/Vol] 105 mmol/L 98-107 [facility] Complete Blood Count Auto Di ffon 10-18-2023 Basophils (Bld) [#/Vol] 0.0 10*3/uL Normal 0.0-0.2 [facility] Comment on above: Result Comment: PERF ORMED BY: [place] [address] PATHOLOGIST TRANSITION TEACHER DAVID VERA M.D. Performed By: #### P TT, CUBLD, CBC, LACTIC, CMP, PT #### [address] Basophils/100 WBC (Bld) 0.3 % Normal . [facility] Comment on above: Performed By: #### P TT, CUBLD, CBC, LACTIC, CMP, PT #### [address] Eosinophils (Bld) [#/Vol] 0.1 10*3/uL Normal 0.0-0.45 [facility] Comment on above: Performed By: #### P TT, CUBLD, CBC, LACTIC, CMP, PT #### [address] Eosinophils/100 WBC (Bld) 0.9 % Normal . [facility] Comment on above: Performed By: #### P TT, CUBLD, CBC, LACTIC, CMP, PT #### [address] Erythrocyte distribution width (RBC) [Ratio] 14.9 % High 12.0-14.8 [facility] Comment on above: Performed By: #### P TT, CUBLD, CBC, LACTIC, CMP, PT #### [address] Hematocrit (Bld) [Volume fraction] 29.9 % Low 38.8-50.0 [facility] Comment on above: Performed By: #### P TT, CUBLD, CBC, LACTIC, CMP, PT #### [address] Hemoglobin (Bld) [Mass/Vol] 10.2 g/dL Low 13.0-17.0 [facility] Comment on above: Performed By: #### P TT, CUBLD, CBC, LACTIC, CMP, PT #### [address] Lymphocytes (Bld) [#/Vol] 0.9 10*3/uL Low 1.00-4.8 [facility] Comment on above: Performed By: #### P TT, CUBLD, CBC, LACTIC, CMP, PT #### [address] Lymphocytes/100 WBC (Bld) 10.2 % Normal . [facility] Comment on above: Performed By: #### P TT, CUBLD, CBC, LACTIC, CMP, PT #### [address] MCH (RBC) [Entitic mass] 32.4 pg Normal 27.5-35.2 [facility] Comment on above: Performed By: #### P TT, CUBLD, CBC, LACTIC, CMP, PT #### [address] MCV (RBC) [Entitic vol] 94.7 fL Normal 83.5-101 [facility] Comment on above: Performed By: #### P TT, CUBLD, CBC, LACTIC, CMP, PT #### [address] Mean Corpuscular HGB Conc 34.2 g/dL Normal 32.5-35.6 [facility] Comment on above: Performed By: #### P TT, CUBLD, CBC, LACTIC, CMP, PT #### [address] Monocytes (Bld) [#/Vol] 0.9 10*3/uL High 0.0-0.8 [facility] Comment on above: Performed By: #### P TT, CUBLD, CBC, LACTIC, CMP, PT #### [address] Monocytes/100 WBC (Bld) 19.23 % Normal 0.00-20.00 [facility] Comment on above: Performed By: #### P TT, CUBLD, CBC, LACTIC, CMP, PT #### [address] Monocytes/100 WBC (Bld) 9.6 % Normal . [facility] Comment on above: Performed By: #### P TT, CUBLD, CBC, LACTIC, CMP, PT #### [address] Neutrophils (Bld) [#/Vol] 7.2 10*3/uL Normal 1.8-7.7 [facility] Comment on above: Performed By: #### P TT, CUBLD, CBC, LACTIC, CMP, PT #### [address] Neutrophils/100 WBC (Bld) 79.0 % Normal . [facility] Comment on above: Performed By: #### P TT, CUBLD, CBC, LACTIC, CMP, PT #### [address] NRBC% 0.0 /100{WBC} Normal 0-0.5 [facility] Comment on above: Performed By: #### P TT, CUBLD, CBC, LACTIC, CMP, PT #### [address] Platelet mean volume (Bld) [Entitic vol] 7.0 fL Normal 6.6-10.1 [facility] Comment on above: Performed By: #### P TT, CUBLD, CBC, LACTIC, CMP, PT #### [place] [address] [place] Platelets (Bld) [#/Vol] 202 10*3/uL Normal 150-450 [facility] Comment on above: Performed By: #### P TT, CUBLD, CBC, LACTIC, CMP, PT #### [address] [place] [address] [place] RBC (Bld) [#/Vol] 3.15 10*6/uL Low 3.90-5.60 [facility] Comment on above: Performed By: #### P TT, CUBLD, CBC, LACTIC, CMP, PT #### [address] WBC (Bld) [#/Vol] 9.1 10*3/uL Normal 4.1-10.5 [facility] Comment on above: Performed By: #### P TT, CUBLD, CBC, LACTIC, CMP, PT #### [address] Comprehensive Metabolic Pane kalia 10-18-2023 Albumin [Mass/Vol] 3.9 g/dL Normal 3.5-5.7 [facility] Comment on above: Performed By: #### P TT, CUBLD, CBC, LACTIC, CMP, PT #### [address] Albumin/Globulin [Mass ratio] 1.1 {ratio} Normal [facility] Comment on above: Performed By: #### P TT, CUBLD, CBC, LACTIC, CMP, PT #### [address] ALP [Catalytic activity/Vol] 65 U/L Normal 34-104 [facility] Comment on above: Performed By: #### P TT, CUBLD, CBC, LACTIC, CMP, PT #### [address] ALT [Catalytic activity/Vol] 9 U/L Normal 7-52 [facility] Comment on above: Performed By: #### P TT, CUBLD, CBC, LACTIC, CMP, PT #### [address] Anion gap [Moles/Vol] 9.8 mmol/L Normal 6.0-15.0 [facility] Comment on above: Performed By: #### P TT, CUBLD, CBC, LACTIC, CMP, PT #### [facility] [address] AST [Catalytic activity/Vol] 12 U/L Low 13-39 [facility] Comment on above: Performed By: #### P TT, CUBLD, CBC, LACTIC, CMP, PT #### [facility] [address] Bilirubin [Mass/Vol] 0.5 mg/dL Normal 0.3-1.0 [facility] Comment on above: Performed By: #### P TT, CUBLD, CBC, LACTIC, CMP, PT #### [facility] [address] Calcium [Mass/Vol] 9.0 mg/dL Normal 8.6-10.3 [facility] Comment on above: Performed By: #### P TT, CUBLD, CBC, LACTIC, CMP, PT #### [address] Chloride [Moles/Vol] 105 mmol/L Normal 98-107 [facility] Comment on above: Performed By: #### P TT, CUBLD, CBC, LACTIC, CMP, PT #### [address] CO2 [Moles/Vol] 23.9 mmol/L Normal 21.0-31.0 [facility] Comment on above: Performed By: #### P TT, CUBLD, CBC, LACTIC, CMP, PT #### [facility] [address] [place] [address] [place] Creatinine [Mass/Vol] 1.98 mg/dL High 0.70-1.30 [facility] Comment on above: Performed By: #### P TT, CUBLD, CBC, LACTIC, CMP, PT #### [place] [address] [place] Creatinine Clr Calc Pharmacy 35.87 Normal [facility] Comment on above: Result Comment: PERF ORMED BY: [place] [address] PATHOLOGIST TRANSITION TEACHER JIANLAN SUN M.D. Performed By: #### P TT, CUBLD, CBC, LACTIC, CMP, PT #### [facility] [address] GFR/1.73 sq M.predicted MDRD (S/P/Bld) [Vol rate/Area] 34.364 mL/min/{1.73_m2} Normal [facility] [place] Comment on above: Performed By: #### P TT, CUBLD, CBC, LACTIC, CMP, PT #### [facility] [address] Globulin (S) [Mass/Vol] 3.7 g/dL [facility] Comment on above: Performed By: #### P TT, CUBLD, CBC, LACTIC, CMP, PT #### [facility] [address] Glucose [Mass/Vol] 114 mg/dL High 70-100 [facility] Comment on above: Result Comment: [facility] Glucose Reference Range is dependent on time and content of last meal. Glucose of more than 200 mg/dL in a nonstressed, ambulatory subject supports the diagnosis of Diabetes Mellitus. ADA recommended reference range Performed By: #### P TT, CUBLD, CBC, LACTIC, CMP, PT #### [facility] [address] Potassium [Moles/Vol] 3.7 mmol/L Normal 3.5-5.1 [facility] Comment on above: Performed By: #### P TT, CUBLD, CBC, LACTIC, CMP, PT #### [facility] [address] Protein [Mass/Vol] 7.6 g/dL Normal 6.4-8.9 [facility] Comment on above: Performed By: #### P TT, CUBLD, CBC, LACTIC, CMP, PT #### [facility] [address] Sodium [Moles/Vol] 135 mmol/L Low 136-145 [facility] Comment on above: Performed By: #### P TT, CUBLD, CBC, LACTIC, CMP, PT #### [facility] [address] [place] [address] [place] Urea nitrogen [Mass/Vol] 31 mg/dL High 7- [facility] Comment on above: Performed By: #### P TT, CUBLD, CBC, LACTIC, CMP, PT #### [facility] [address] [place] [address] [place] Creatinine [Mass/volume] in Serum or PlasmaOrdered By: Michael Amador on 10-18-2023 Creatinine [Mass/Vol] 1.98 mg/dL 0.70-1.30 [facility] ECG 12 lead ECGon 10-18-2023 ECG 12 lead ECG [facility] [place] [address] [place] [address] Electrocardiograph Report Signed Patient: Niels Mccullough JR MR#: [id number] : 1945 Acct:[id number] Age/Sex: 77 / M ADM Date: 10/18/23 Loc: ER Room: Type: [facility] ER Attending Dr: Ordering Provider: Michael Amador APRN Date of Service: 10/18/23 ECG/ECG 12 lead ECG: Dental/Oral Copies to: Test Reason : Blood Pressure : / mmHG Vent. Rate : 084 BPM Atrial Rate : 084 BPM P-R Int : 218 ms QRS Dur : 096 ms QT Int : 422 ms P-R-T Axes : 063 033 082 degrees QTc Int : 498 ms Sinus rhythm with 1st degree AV block Prolonged QT Abnormal ECG No previous ECGs available Confirmed by JAYESH ALEX MD ([id number]) on 10/18/2023 3:35:24 PM Referred By: Electronically Signed By:JAYESH ALEX MD Transcribed By: MUS Signed By Jayesh Alex MD 10/18/23 1537 Normal [facility] Eosinophils Auto (Bld) [#/Vo l]Ordered By: Michael Amador on 10-18-2023 Eosinophils (Bld) [#/Vol] 0.1 10*3/uL 0.0-0.45 [facility] Eosinophils/100 WBC Auto (Bl d)Ordered By: Michael Amador on 10-18-2023 Eosinophils/100 WBC (Bld) 0.9 % . [facility] Erythrocyte distribution wid th Auto (RBC) [Ratio]Ordered By: Michael Amador on 10-18-2023 Erythrocyte distribution width (RBC) [Ratio] 14.9 % 12.0-14.8 [facility] Globulin Calc (S) [Mass/Vol] Ordered By: Mihcael Amador on 10-18-2023 Globulin (S) [Mass/Vol] 3.7 g/dL [facility] Glucose [Mass/volume] in Ser um or PlasmaOrdered By: Michael Amador on 10-18-2023 Glucose [Mass/Vol] 114 mg/dL 70-100 [facility] Comment on above: ADA recommended refe rence rangeRandom Glucose Reference Range is dependent on time and content of last meal. Glucose of more than 200 mg/dL in a nonstressed, ambulatory subject supports the diagnosis of Diabetes Mellitus. Hematocrit Auto (Bld) [Volum e fraction]Ordered By: Michael Amador on 10-18-2023 Hematocrit (Bld) [Volume fraction] 29.9 % 38.8-50.0 [facility] Hemoglobin [Mass/volume] in BloodOrdered By: Michael Amador on 10-18-2023 Hemoglobin (Bld) [Mass/Vol] 10.2 g/dL 13.0-17.0 [facility] INR in Platelet poor plasma by Coagulation assayOrdered By: Michael Amador on 10-18-2023 INR Coag (PPP) [Relative time] 1.4 {INR} [facility] Comment on above: INR Therapeutic Rang e A) Pre- and Peroperative OAT started two weeks before surgery. NOT HIP SURGERY: 1.5 - 2.5 HIP SURGERY: 2 - 3B) Primary and secondary prevention of venous THROMBOSIS: 2 - 3C) Active venous thrombosis, pulmonary embolismand prevention of recurrent venous thrombosis: 2 - 3D) Prevention of arterial thromboembolismincluding patients with mechanical heart valves: 3 - 4.5 Lactate [Moles/volume] in Se rum or PlasmaOrdered By: Michael Amador on 10-18-2023 Lactate [Moles/Vol] 0.7 mmol/L 0.5-2.2 [facility] Lactic Acidon 10-18-2023 Lactate [Moles/Vol] 0.7 mmol/L Normal 0.5-2.2 [facility] Comment on above: Result Comment: PERF ORMED BY: [facility] [address] [place] [address] PATHOLOGIST TRANSITION TEACHER DAVID VERA M.D. Performed By: #### P TT, CUBLD, CBC, LACTIC, CMP, PT #### [facility] [address] Leukocytes [#/volume] correc alexys for nucleated erythrocytes in Blood by Automated counOrdered By: Michael Amador on 10-18-2023 WBC corrected for nucl RBC Auto (Bld) [#/Vol] 9.1 10*3/uL 4.1-10.5 [facility] Lymphocytes Auto (Bld) [#/Vo l]Ordered By: Michael Amador on 10-18-2023 Lymphocytes (Bld) [#/Vol] 0.9 10*3/uL 1.00-4.8 [facility] Lymphocytes/100 WBC Auto (Bl d)Ordered By: Michael Amador on 10-18-2023 Lymphocytes/100 WBC (Bld) 10.2 % . [facility] MCH Auto (RBC) [Entitic mass ]Ordered By: Michael Amador on 10-18-2023 MCH (RBC) [Entitic mass] 32.4 pg 27.5-35.2 [facility] MCHC Auto (RBC) [Mass/Vol]Or dered By: Michael Amador on 10-18-2023 MCHC (RBC) [Mass/Vol] 34.2 g/dL 32.5-35.6 [facility] MCV Auto (RBC) [Entitic vol] Ordered By: Michael Amador on 10-18-2023 MCV (RBC) [Entitic vol] 94.7 fL 83.5-101 [facility] Monocyte distribution width [Entitic volume] in Blood by AutomatedOrdered By: Michael Amador on 10-18-2023 Monocyte distribution width Auto (Bld) [Entitic vol] 19.23 % 0.00-20.00 [facility] Monocytes Auto (Bld) [#/Vol] Ordered By: Michael Amador on 10-18-2023 Monocytes (Bld) [#/Vol] 0.9 10*3/uL 0.0-0.8 [facility] Monocytes/100 WBC Auto (Bld) Ordered By: Michael Amador on 10-18-2023 Monocytes/100 WBC (Bld) 9.6 % . [facility] Neutrophils Auto (Bld) [#/Vo l]Ordered By: Michael Amador on 10-18-2023 Neutrophils (Bld) [#/Vol] 7.2 10*3/uL 1.8-7.7 [facility] Neutrophils/100 WBC Auto (Bl d)Ordered By: Michael Amador on 10-18-2023 Neutrophils/100 WBC (Bld) 79.0 % . [facility] No Panel InformationOrdered By: Michael Amador on 10-18-2023 Estimated GFR (CKD-EPI) 34.364 mL/Min [facility] Pharmacy Creatinine Clearance (Chem 35.87 [facility] Nucleated erythrocytes [Pres ence] in Blood by Automated countOrdered By: Michael Amador on 10-18-2023 Nucleated RBC Auto Ql (Bld) 0.0 /100{WBC} 0-0.5 [facility] Partial Thromboplastin Timeo n 10-18-2023 aPTT Coag (Bld) [Time] 31.2 s Normal 25.1-36.5 [facility] Comment on above: Result Comment: A he matocrit value greater than 55% may lead to inaccurate results in coagulation testing. Patients having hematocrit values >55% require a special collection tube for coagulation studies. Please contact the laboratory at [phone] for redraw instructions. PERFORMED BY: [place] [address] PATHOLOGIST TRANSITION TEACHER DAVID VERA M.D. Performed By: #### P TT, CUBLD, CBC, LACTIC, CMP, PT #### [address] Platelet mean volume Auto (B ld) [Entitic vol]Ordered By: Michael Amador on 10-18-2023 Platelet mean volume (Bld) [Entitic vol] 7.0 fL 6.6-10.1 [facility] Platelets Auto (Bld) [#/Vol] Ordered By: Michael Amador on 10-18-2023 Platelets (Bld) [#/Vol] 202 10*3/uL 150-450 [facility] Potassium [Moles/volume] in Serum or PlasmaOrdered By: Michael Amador on 10-18-2023 Potassium [Moles/Vol] 3.7 mmol/L 3.5-5.1 [facility] Protein [Mass/volume] in Ser um or PlasmaOrdered By: Michael Amador on 10-18-2023 Protein [Mass/Vol] 7.6 g/dL 6.4-8.9 [facility] Prothrombin Time INRon 10-18 INR Coag (PPP) [Relative time] 1.4 {INR} Normal [facility] Comment on above: Result Comment: INR Therapeutic Range A) Pre- and Peroperative OAT started two weeks before surgery. NOT HIP SURGERY: 1.5 - 2.5 HIP SURGERY: 2 - 3 B) Primary and secondary prevention of venous THROMBOSIS: 2 - 3 C) Active venous thrombosis, pulmonary embolism and prevention of recurrent venous thrombosis: 2 - 3 D) Prevention of arterial thromboembolism including patients with mechanical heart valves: 3 - 4.5 Performed By: #### P TT, CUBLD, CBC, LACTIC, CMP, PT #### [facility] [address] [place] [id number] [facility] PT Coag (PPP) [Time] 16.6 s High 9.0-12.9 [facility] Comment on above: Result Comment: A he matocrit value greater than 55% may lead to inaccurate results in coagulation testing. Patients having hematocrit values >55% require a special collection tube for coagulation studies. Please contact the laboratory at [phone] for redraw instructions. Performed By: #### P TT, CUBLD, CBC, LACTIC, CMP, PT #### [facility] [address] [place] [id number] [facility] Prothrombin time (PT)Ordered By: Michael Amador on 10-18-2023 PT Coag (PPP) [Time] 16.6 s 9.0-12.9 [facility] Comment on above: A hematocrit value g reater than 55% may lead to inaccurate results in coagulation testing. Patients having hematocrit values >55% require a special collection tube for coagulation studies. Please contact the laboratory at [phone] for redraw instructions. RBC Auto (Bld) [#/Vol]Ordere d By: Michael Amador on 10-18-2023 RBC (Bld) [#/Vol] 3.15 10*6/uL 3.90-5.60 [facility] Serum or plasma albumin/glob ulin mass ratioOrdered By: Michael Amador on 10-18-2023 Albumin/Globulin [Mass ratio] 1.1 {ratio} [facility] Serum or plasma anion gap de terminationOrdered By: Michael Amador on 10-18-2023 Anion gap [Moles/Vol] 9.8 mmol/L 6.0-15.0 [facility] Sodium [Moles/volume] in Ser um or PlasmaOrdered By: Michael Amador on 10-18-2023 Sodium [Moles/Vol] 135 mmol/L 136-145 [facility] Superficial Wound Cultureon 10-18-2023 Superficial Wound Culture ORGANISM: Staphylococcus aureus (O:STAAUR) Quantity of Growth Light Growth Aerobic DRE Charge (PCMIC38) SUSCEPTIBILITY ORGANISM: O:STAAUR ANTIBIOTIC INTERPRETATION DRE Azithromycin R >4 Ceftaroline S <0.5 Ciprofloxacin S <1 Clindamycin S 0.5 Levofloxacin S <1 Linezolid S 2 Oxacillin S 0.5 Penicillin JAMIE >2 Tetracycline S <4 Trimethoprim/Sulfamethoxaz ole S <0.5 Vancomycin S 1 S = SUSCEPTIBLE I = INTERMEDIATE R = RESISTANT BLANK = DATA NOT AVAILABLE, OR DRUG NOT ADVISABLE OR TESTED R* = RESISTANCE DUE TO EXTENDED SPECTRUM BETA-LACTAMASES ESBL = EXTENDED SPECTRUM BETA-LACTAMASE TFG = THYMIDINE-DEPENDENT STRAIN JAMIE = BETA-LACTAMASE POSITIVE IB = INDUCIBLE BETA-LACTAMASE. APPEARS IN PLACE OF 'S' WITH SPECIES KNOWN TO POSSESS INDUCIBLE BETA-LACTAMASES. POTENTIALLY THEY MAY BECOME RESISTANT TO ALL B-LACTAM DRUGS. PERFORMED BY: [place] [address] PATHOLOGIST TRANSITION TEACHER DAVID VERA M.D. Normal [facility] Comment on above: Performed By: #### C USUP #### [address] Urea nitrogen [Mass/volume] in Serum or PlasmaOrdered By: Michael Amador on 10-18-2023 Urea nitrogen [Mass/Vol] 31 mg/dL 05-20 [facility] WBC Auto (Bld) [#/Vol]Ordere d By: Michael Amador on 10-18-2023 WBC (Bld) [#/Vol] 9.1 10*3/uL 4.1-10.5 [facility] BNPon 10-30-2022 Natriuretic peptide B (Bld) [Mass/Vol] 4309.0 pg/mL Critically high <=1,800.0 [facility] Comment on above: Performed By: #### C BC #### [facility] [address] [place] [address] Dr. Kelsea Guillermo CBC AUTO DIFFon 10-30-2022 BASO # 0.0 103/ul Normal 0.0-0.1 [facility] Comment on above: Performed By: #### C BC #### [facility] [address] [place] [address] Dr. Kelsea Guillermo Basophils/100 WBC (Bld) 0.4 % Normal 0.2-2.0 [facility] Comment on above: Performed By: #### C BC #### [facility] [address] [place] [address] [address] Kelsea Guillermo EO # 0.5 103/ul Normal 0.0-0.[address] [facility] Comment on above: Performed By: #### C BC #### [facility] [address] [place] [address] Dr. Kelsea Guillermo Eosinophils/100 WBC (Bld) 6.4 % Normal 0.9-7.0 [facility] Comment on above: Performed By: #### C BC #### [facility] [address] [place] [address] Dr. Kelsea Guillermo Erythrocyte distribution width (RBC) [Ratio] 13.3 % Normal 11.0-15.0 [facility] Comment on above: Performed By: #### C BC #### [facility] [address] [place] [address] Dr. Kelsea Guillermo Hematocrit (Bld) [Volume fraction] 33.9 % Critically low 42.0-54.0 [facility] Comment on above: Performed By: #### C BC #### [facility] [address] [place] [address] Dr. Kelsea Guillermo Hemoglobin (Bld) [Mass/Vol] 11.6 g/dL Critically low 14.0-18.0 [facility] Comment on above: Performed By: #### C BC #### [facility] [address] [place] [address] Dr. Kelsea Guillermo IG # 0.02 10e3/ul Normal 0.00-0.03 [facility] Comment on above: Performed By: #### C BC #### [facility] [address] [place] [address] Dr. Kelsea Guillermo IG % 0.3 % Normal 0.0-0.5 [facility] Comment on above: Performed By: #### C BC #### [facility] [address] [place] [address] Dr. Kelsea Guillermo LYMPH # 1.0 103/ul Critically low 1.2-3.[address] [facility] Comment on above: Performed By: #### C BC #### [facility] [address] [place] [address] Dr. Kelsea Guillermo Lymphocytes/100 WBC (Bld) 14.0 % Critically low 20.5-60.0 [facility] Comment on above: Performed By: #### C BC #### [facility] [address] [place] [address] Dr. Kelsea Guillermo MANUAL DIFF REQ NO Normal [facility] Comment on above: Performed By: #### C BC #### [facility] [address] [place] [address] Dr. Kelsea Guillermo MCH (RBC) [Entitic mass] 32.5 pg Normal 25.9-34.[address] [facility] Comment on above: Performed By: #### C BC #### [facility] [address] [place] [address] Dr. Kelsea Guillermo MCHC (RBC) [Mass/Vol] 34.2 g/dL Normal 29.9-35.[address] [facility] Comment on above: Performed By: #### C BC #### [facility] [address] [place] [address] Dr. Kelsea Guillermo MCV (RBC) [Entitic vol] 95.0 fL Critically high 80.0-94.0 [facility] Comment on above: Performed By: #### C BC #### [facility] [address] [place] [address] Dr. Kelsea Guillermo MONO # 0.6 103/ul Normal 0.3-0.8 [facility] Comment on above: Performed By: #### C BC #### [facility] [address] [place] [address] Dr. Kelsea Guillermo Monocytes/100 WBC (Bld) 8.7 % Normal 1.7-12.0 [facility] Comment on above: Performed By: #### C BC #### [facility] [address] [place] [address] Dr. Kelsea Guillermo NEUT # 5.0 103/ul Normal 1.4-6.[address] [facility] Comment on above: Performed By: #### C BC #### [facility] [address] [place] [address] Dr. Kelsea Guillermo Neutrophils/100 WBC (Bld) 70.2 % Normal 43.0-75.[address] [facility] Comment on above: Performed By: #### C BC #### [facility] [address] [place] [address] Dr. Kelsea Guillermo Platelet mean volume (Bld) [Entitic vol] 9.1 fL Critically low 9.5-13.[address] [facility] Comment on above: Performed By: #### C BC #### [facility] [address] [place], [place] [address] Dr. Kelsea Guillermo PLT 171 103/ul Normal 150-[address] [facility] Comment on above: Performed By: #### C BC #### [facility] [address] [place], [place] [address] Dr. Kelsea Guillermo RBC 3.57 106/ul Critically low 4.70-6.[address] [facility] Comment on above: Performed By: #### C BC #### [facility] [address] [place], [place] [address] Dr. Kelsea Guillermo WBC 7.2 103/ul Normal 4.0-11.0 [facility] Comment on above: Performed By: #### C BC #### [facility] [address] [place], [place] [address] HEAD WO CONon 10-30-2022 CT HEAD WO CON CT SCAN OF THE HEAD WITHOUT CONTRAST, 10/30/2022 7:21 PM EST: COMPARISON: None CLINICAL HISTORY: HEADACHE and shortness of breath. TECHNIQUE: 3 mm axial images performed through the head without contrast. 3 mm sagittal and coronal MPR reconstructions performed. Dose reduction techniques were achieved by using automated exposure control and/or adjustment of mA and/or kV according to patient size and/or use of iterative reconstruction technique. FINDINGS: Age-related cerebral and cerebellar atrophy with associated ventricular prominence. Nonspecific periventricular white matter low attenuation, likely a sequela of small vessel disease. Some vague hypodensity seen along the peripheral aspect of the occipital lobes bilaterally, right greater than left (image #27, series 5). Some mild edema in this region cannot be excluded. No acute hemorrhage, or midline shift. Visualized paranasal sinuses, mastoid air cells and bony structures are unremarkable. Cerumen seen in the left external auditory canal. IMPRESSION: 1. Some vague hypodensity along the peripheral aspect of the occipital lobes bilaterally, right greater than left which may correspond to some nonspecific edema although this may also be chronic etiology. If this is of acute clinical concern MRI of the head without and with contrast can be considered. 2. Some age-related atrophy with associated ventricular prominence and periventricular white matter small vessel disease. 3. Mild chronic changes of left sphenoid sinusitis. 4. Cerumen in the left external auditory canal. results were called by Dr. Truong Elam to Dr. Tennille Jorge At 10/30/2022 8:26 PM EST. Electronically authenticated by: Truong ELAM Date: 2022-10-30 21:[address] [facility]on SARS-CoV-2 (COVID-19) RNA SHALA+probe Ql (Unsp spec) Not detected Normal NOT DETECTED [facility] Comment on above: Result Comment: When diagnostic testing is negative, the possibility of a false negative should be considered in the context of a patient's recent exposures and the presence of clinical signs and symptoms consistent with SARS-CoV-2. This test is not yet approved or cleared by the [place] FDA. When there are no FDA-approved or cleared tests available, and other criteria are met, FDA can make tests available under an emergency access mechanism called an Emergency Use Authorization (EUA). The EUA for this test is supported by the [place] of Health and Human Service's declaration that circumstances exist to justify the emergency use of in vitro diagnostics for the detection and/or diagnosis of the virus that causes COVID-19. This EUA will remain in effect for the duration of the COVID-19 declaration justifying emergency of IVDs, unless it is terminated or revoked by the FDA (after which the test may no longer be used). Performed By: #### [facility] #### [facility] [address] [place] [address] Dr. Kelsea Guillermo INFLUENZA A AND B AGon 10-30 [facility] SEE BELOW Normal [facility] Comment on above: Result Comment: Nega tive for Flu A protein angiten. Infection due to Flu A cannot be ruled out. Flu A angiten in the sample may be below the detection limit of the test. Performed By: #### C #### [facility] [address] [place] [address] Dr. [facility] Normal [facility] Comment on above: Result Comment: Nega tive for Flu B protein antigen. Infection due to Flu B cannot be ruled out. Flu B antigen in the sample may be below the detection limit of the test. Performed By: #### C BC #### [facility] [address] [place] [address] Dr. Kelsea Guillermo INFLUENZA A AG Negative Normal NEGATIVE SEE COMMENT [facility] Comment on above: Performed By: #### C BC #### [facility] [address] [place] [address] Dr. Kelsea Guillermo INFLUENZA B AG Negative Normal NEGATIVE SEE COMMENT [facility] Comment on above: Performed By: #### C BC #### [facility] [address] [place] [address] Dr. Kelsea Guillermo PROF 14(COMP METB)on 023 Albumin [Mass/Vol] 3.7 g/dL Normal 3.4-5.0 [facility] Comment on above: Performed By: #### C BC #### [facility] [address] [place] [address] Dr. Kelsea Guillermo Albumin/Globulin [Mass ratio] 0.9 {ratio} Normal [facility] Comment on above: Performed By: #### C BC #### [facility] [address] [place] [address] Dr. Kelsea Guillermo ALP [Catalytic activity/Vol] 110 U/L Normal 46-116 [facility] Comment on above: Performed By: #### C BC #### [facility] [address] [place] [address] Dr. Kelsea Guillermo ALT [Catalytic activity/Vol] 12 U/L Critically low 16-63 [facility] Comment on above: Performed By: #### C BC #### [facility] [address] [place] [address] Dr. Kelsea Guillermo Anion gap [Moles/Vol] 12.3 mmol/L Normal [facility] Comment on above: Performed By: #### C BC #### [facility] [address] [place] [address] Dr. Kelsea Guillermo AST [Catalytic activity/Vol] 18 U/L Normal 15-37 [facility] Comment on above: Performed By: #### C BC #### [facility] [address] [place] [address] [address] Kelsea Guillermo Bilirubin [Mass/Vol] 0.3 mg/dL Normal 0.2-1.0 [facility] Comment on above: Performed By: #### C BC #### [facility] [address] [place] [address] [address] Kelsea Guillermo Calcium [Mass/Vol] 8.4 mg/dL Critically low 8.5-10.1 [facility] [place] Comment on above: Performed By: #### C BC #### [facility] [address] [place] [address] [address] Kelsea Guillermo Chloride [Moles/Vol] 100 mmol/L Normal 98-107 [facility] Comment on above: Performed By: #### C BC #### [facility] [address] [place] [address] Dr. Kelsea Guillermo CO2 [Moles/Vol] 26.7 mmol/L Normal 21.0-32.0 [facility] Comment on above: Performed By: #### C BC #### [facility] [address] [place] [address] Dr. Kelsea Guillermo Creatinine [Mass/Vol] 2.01 mg/dL Critically high 0.70-1.30 [facility] Comment on above: Performed By: #### C BC #### [facility] [address] [place] [address] Dr. Kelsea Guillermo EGFR-AF NIGERIEN 39 mL/min/1.73m2 Critically low >=[address] [facility] Comment on above: Performed By: #### C BC #### [facility] [address] [place] [address] Dr. Kelsea Guillermo EGFR-NON AF NIGERIEN 32 mL/min/1.73m2 Critically low >=60 [facility] Comment on above: Performed By: #### C BC #### [facility] [address] [place] [address] Dr. Kelsea Guillermo Globulin (S) [Mass/Vol] 3.9 g/dL Normal [facility] Comment on above: Performed By: #### C BC #### [facility] [address] [address] [address] Kelsea Guillermo Glucose [Mass/Vol] 108 mg/dL Critically high 74-106 T [facility] Comment on above: Performed By: #### C BC #### [facility] [address] [address] [address] Kelsea Guillermo Potassium [Moles/Vol] 3.0 mmol/L Critically low 3.5-5.1 [facility] Comment on above: Performed By: #### C BC #### [facility] [address] [address] [address] Kelsea Guillermo Protein [Mass/Vol] 7.6 g/dL Normal 6.4-8.2 [facility] Comment on above: Performed By: #### C BC #### [facility] [address] [address] [address] Kelsea Guillermo Sodium [Moles/Vol] 136 mmol/L Normal 136-145 [facility] Comment on above: Performed By: #### C BC #### [facility] [address] [address] [address] Kelsea Guillermo Urea nitrogen [Mass/Vol] 24.0 mg/dL Critically high 7.0-18.0 [facility] Comment on above: Performed By: #### C BC #### [facility] [address] [address] [address] Kelsea Guillermo Urea nitrogen/Creatinine [Mass ratio] 11.9 mg/mg Normal [facility] Comment on above: Performed By: #### C BC #### [facility] [address] [address] [address] Kelsea Guillermo PROTIMEon 10-30-2022 INR Coag (PPP) [Relative time] 2.35 {INR} Normal [facility] Comment on above: Performed By: #### P T, PTT #### [facility] [address] [place] [address] Dr. Kelsea Guillermo INR GUIDELINES SEE BELOW Normal [facility] Comment on above: Result Comment: AGUILA RED INR: 2.0 - 3.0 CONDITIONS NOT LISTED BELOW 2.5 - 3.5 FOR PROSTHETIC HEART VALVE REPLACEMENT 2.5 - 3.5 RECURRENT THROMBOSIS Performed By: #### P T, PTT #### [facility] [address] [address] [address] Kelsea Guillermo PT Coag (PPP) [Time] 24.0 s Critically high 9.0-11.[address] [facility] Comment on above: Performed By: #### P T, PTT #### [facility] [address] [address] [address] Kelsea Guillermo PTTon 10-30-2022 aPTT Coag (Bld) [Time] 47.8 s Critically high 22.3-36. [address] [facility] Comment on above: Performed By: #### P T, PTT #### [facility] [address] [place] [address] Dr. Kelsea Guillermo TROPONIN, HIGH SENSITIVITYon 10-30-2022 HSTROP 21.8 pg/mL Normal 4.0-76.[address] [facility] Comment on above: Result Comment: CUT- OFF POINTS HAVE BEEN ESTABLISHED BASED ON THE FOURTH UNIVERSAL DEFINITIONS OF MYOCARDIAL INFARCTION. THE UPPER REFERENCE LIMIT (URL) OF TROPONIN, DEFINED THE 99TH PERCENTILE OF cTnI DISTRIBUTION IN A REFERENCE POPULATION, HAS BEEN CONFIRMED THE DECISION THRESHOLD FOR GA DIAGNOSIS. Performed By: #### C BC #### [facility] [address] [place] [address] Dr. Kelsea Guillermo XR CHEST 1 Von 10-30-2022 XR CHEST 1 V EXAMINATION: XR CHES T 1 V HISTORY: SHORTNESS OF BREATH COMPARISON: 05/13/2022 TECHNIQUE: AP erect FINDINGS: LUNGS: No significant pulmonary parenchymal abnormalities. VASCULATURE: No increased pulmonary vasculature. PLEURA: No pneumothorax, effusion, or pleural thickening. CARDIAC: No cardiomegaly or cardiac silhouette abnormality. MEDIASTINUM: No visible mass or adenopathy. BONES: No fracture or visible bone lesion. OTHER: Negative. IMPRESSION: No acute disease. Electronically authenticated by: MIKA MARI Date: 2022-10-30 20:[address] [facility] PROTIMEon 09-10-2022 INR Coag (PPP) [Relative time] 2.04 {INR} Normal [facility] Comment on above: Performed By: #### C BC #### [facility] [address] [place] [address] Dr. Kelsea Guillermo INR GUIDELINES SEE BELOW Normal [facility] Comment on above: Result Comment: AGUILA RED INR: 2.0 - 3.0 CONDITIONS NOT LISTED BELOW 2.5 - 3.5 FOR PROSTHETIC HEART VALVE REPLACEMENT 2.5 - 3.5 RECURRENT THROMBOSIS Performed By: #### C BC #### [facility] [address] [place] [address] Dr. Kelsea Guillermo PT Coag (PPP) [Time] 21.0 s Critically high 9.0-11.6 [facility] Comment on above: Performed By: #### C BC #### [facility] [address] [place] [address] Dr. Kelsea Guillermo CARDIAC ISIDRO 3-6on 2 CK [Catalytic activity/Vol] 62 U/L Normal 39-308 [facility] Comment on above: Performed By: #### C MREP #### [facility] [address] [place] [address] Dr. Kelsea Guillermo CK.MB [Mass/Vol] 1.28 ng/mL Normal <=3.[address] [facility] Comment on above: Performed By: #### C MREP #### [facility] [address] [place] [address] Dr. Kelsea uGillermo HSTROP 19.5 pg/mL Normal 4.0-76.1 [facility] Comment on above: Result Comment: CUT- OFF POINTS HAVE BEEN ESTABLISHED BASED ON THE FOURTH UNIVERSAL DEFINITIONS OF MYOCARDIAL INFARCTION. THE UPPER REFERENCE LIMIT (URL) OF TROPONIN, DEFINED THE 99TH PERCENTILE OF cTnI DISTRIBUTION IN A REFERENCE POPULATION, HAS BEEN CONFIRMED THE DECISION THRESHOLD FOR GA DIAGNOSIS. Performed By: #### C MREP #### [facility] [address] [place] [address] ABD/PELVIS WO CONon 05-14 CT ABD/PELVIS WO CON STUDY: CT abdomen p robert noncontrast TECHNIQUE: Axial slices were obtained from the diaphragmatic domes through the pelvis without intravenous contrast. Coronal and sagittal reformats were provided. Dose reduction techniques were achieved by using automated exposure control and/or adjustment of mA and/or kV according to patient size and/or use of iterative reconstruction technique. COMPARISON: CT abdomen pelvis 05/25/2020 HISTORY: Pain FINDINGS: Chest: Reticulations in bilateral lung bases may be senescent or related to interstitial process. There is calcific coronary artery disease. No pleural or pericardial effusion. Liver: Normal contour and attenuation. Biliary: The gallbladder is surgically absent. Common bile duct is unremarkable. Adrenals: Normal. Pancreas: Punctate parenchymal calcifications suggest prior pancreatitis. Spleen: Normal size. Renal: No hydronephrosis. Nonobstructing collecting system calcification in the left lower pole. The ureters are normal in course and caliber. The urinary bladder is unremarkable. Hollow viscera: Normal caliber. Large colonic diverticular burden. No acute inflammatory changes. Moderate to large retained colonic stool burden. Limited evaluation of the rectum metallic streak artifact Vascular: Atherosclerosis without aneurysm. IVC filter appears appropriate in position. Mesentery/retroperitoneum: No free fluid, free air or focal stranding. No pathologically enlarged lymph nodes. Pelvic viscera: Within normal limits. MSK: Moderate height loss of L1 compression deformity is compared to prior exam 05/25/2020. Uncomplicated appearing left total hip arthroplasty. There is approximately 4 mm retropulsion of posterior elements into the canal, progressed from 1 to 2 mm previously. Peripheral soft tissues are unremarkable. IMPRESSION: 1. No acute abdominopelvic findings. 2. Interval progression of compression deformity in L1. 3. Moderate to large retained colonic stool burden. Electronically authenticated by: SARY RIGGS Date: 2022-05-13 22:51 Normal [facility] LACTATE/LACTIC ACIDon 2021 Lactate [Moles/Vol] 0.5 mmol/L Normal 0.4-1.9 [facility] Comment on above: Performed By: #### L ACT #### [facility] [address] [address] [address] Kelsea Guillermo CARDIAC ISIDRO ADMITon 022 CK [Catalytic activity/Vol] 71 U/L Normal 39-[address] [facility] Comment on above: Performed By: #### C MP, CMADM #### [facility] [address] [place], [place] [address] Dr. Kelsea Guillermo CK.MB [Mass/Vol] 1.26 ng/mL Normal <=3.60 [facility] Comment on above: Performed By: #### C ALICIA, CMADM #### [facility] [address] [address] [address] Kelsea Guillermo HSTROP 17.5 pg/mL Normal 4.0-76.1 [facility] Comment on above: Result Comment: CUT- OFF POINTS HAVE BEEN ESTABLISHED BASED ON THE FOURTH UNIVERSAL DEFINITIONS OF MYOCARDIAL INFARCTION. THE UPPER REFERENCE LIMIT (URL) OF TROPONIN, DEFINED THE 99TH PERCENTILE OF cTnI DISTRIBUTION IN A REFERENCE POPULATION, HAS BEEN CONFIRMED THE DECISION THRESHOLD FOR GA DIAGNOSIS. Performed By: #### C ALICIA, CMADM #### [facility] [address] [address] [address] Kelsea Guillermo ROLAND 115 ng/mL Critically high 16-96 [facility] Comment on above: Performed By: #### C ALICIA, CMADM #### [facility] [address] [place] [address] Dr. Kelsea Guillermo CBC AUTO DIFFon 05-13-2022 BASO # 0.0 103/ul Normal 0.0-0.1 [facility] Comment on above: Performed By: #### C BC #### [facility] [address] [address] [address] Kelsea Guillermo Basophils/100 WBC (Bld) 0.5 % Normal 0.2-2.0 [facility] Comment on above: Performed By: #### C BC #### [facility] [address] [place] [address] Dr. Kelsea Guillermo EO # 0.4 103/ul Normal 0.0-0.[address] [facility] Comment on above: Performed By: #### C BC #### [facility] [address] [address] [address] Kelsea Guillermo Eosinophils/100 WBC (Bld) 5.3 % Normal 0.9-7.0 [facility] Comment on above: Performed By: #### C BC #### [facility] [address] [place] [address] Dr. Kelsea Guillermo Erythrocyte distribution width (RBC) [Ratio] 14.0 % Normal 11.0-15.0 [facility] Comment on above: Performed By: #### C BC #### [facility] [address] [place] [address] Dr. Kelsea Guillermo Hematocrit (Bld) [Volume fraction] 36.7 % Critically low 42.0-54.0 [facility] Comment on above: Performed By: #### C BC #### [facility] [address] [place] [address] Dr. Kelsea Guillermo Hemoglobin (Bld) [Mass/Vol] 11.8 g/dL Critically low 14.0-18.0 [facility] Comment on above: Performed By: #### C BC #### [facility] [address] [place] [address] Dr. Kelsea Guillermo IG # 0.09 10e3/ul Critically high 0.00-0.03 [facility] Comment on above: Performed By: #### C BC #### [facility] [address] [place] [address] Dr. Kelsea Guillermo IG % 1.2 % Critically high 0.0-0.5 [facility] Comment on above: Performed By: #### C BC #### [facility] [address] [place] [address] Dr. Kelsea Guillermo LYMPH # 1.6 103/ul Normal 1.2-3.8 [facility] Comment on above: Performed By: #### C BC #### [facility] [address] [place] [address] Dr. Kelsea Guillermo Lymphocytes/100 WBC (Bld) 21.9 % Normal 20.5-60.0 [facility] Comment on above: Performed By: #### C BC #### [facility] [address] [place] [address] Dr. Kelsea Guillermo MANUAL DIFF REQ NO Normal [facility] Comment on above: Performed By: #### C BC #### [facility] [address] [place] [address] Dr. Kelsea Guillermo MCH (RBC) [Entitic mass] 31.7 pg Normal 25.9-34.0 [facility] Comment on above: Performed By: #### C BC #### [facility] [address] [address] [address] Kelsea Guillermo MCHC (RBC) [Mass/Vol] 32.2 g/dL Normal 29.9-35.2 [facility] Comment on above: Performed By: #### C BC #### [facility] [address] [address] [address] Kelsea Guillermo MCV (RBC) [Entitic vol] 98.7 fL Critically high 80.0-94.0 [facility] Comment on above: Performed By: #### C BC #### [facility] [address] [place] [address] Dr. Kelsea Guillermo MONO # 0.7 103/ul Normal 0.3-0.8 [facility] Comment on above: Performed By: #### C BC #### [facility] [address] [place] [address] Dr. Kelsea Guillermo Monocytes/100 WBC (Bld) 9.4 % Normal 1.7-12.0 [facility] Comment on above: Performed By: #### C BC #### [facility] [address] [place] [address] Dr. Kelsea Guillermo NEUT # 4.5 103/ul Normal 1.4-6.5 [facility] Comment on above: Performed By: #### C BC #### [facility] [address] [place] [address] Dr. Kelsea Guillermo Neutrophils/100 WBC (Bld) 61.7 % Normal 43.0-75.[address] [facility] Comment on above: Performed By: #### C BC #### [facility] [address] [place] [address] Dr. Kelsea Guillermo Platelet mean volume (Bld) [Entitic vol] 9.3 fL Critically low 9.5-13.5 [facility] Comment on above: Performed By: #### C BC #### [facility] [address] [place] [address] Dr. Kelsea Guillermo PLT 207 103/ul Normal 150-[address] [facility] Comment on above: Performed By: #### C BC #### [facility] [address] [place] [address] Dr. Kelsea Guillermo RBC 3.72 106/ul Critically low 4.70-6.[address] [facility] Comment on above: Performed By: #### C BC #### [facility] [address] [place] [address] Dr. Kelsea Guillermo WBC 7.4 103/ul Normal 4.0-11.0 [facility] Comment on above: Performed By: #### C BC #### [facility] [address] [place] [address] Dr. Kelsea Guillermo ER URINE PROFILEon 2 Bilirubin Ql (U) Negative Normal NEGATIVE [facility] Comment on above: Performed By: #### C BC #### [facility] [address] [place] [address] Dr. Kelsea Guillermo Clarity (U) CLEAR Normal CLEAR [facility] Comment on above: Performed By: #### C BC #### [facility] [address] [place] [address] Dr. Kelsea Guillermo Color (U) LT. YELLOW Normal YELLOW [facility] Comment on above: Performed By: #### C BC #### [facility] [address] [place] [address] Dr. Kelsea CAMPBELL A micrscopic examina tion will be performed if indicated. Normal [facility] Comment on above: Performed By: #### C BC #### [facility] [address] [place] [address] Dr. Kelsea Guillermo Glucose Ql (U) Negative Normal NEGATIVE [facility] Comment on above: Performed By: #### C BC #### [facility] [address] [place] [address] Dr. Kelsea Guillermo Hemoglobin Ql (U) Negative Normal NEGATIVE [facility] Comment on above: Performed By: #### C BC #### [facility] [address] [place] [address] Dr. Kelsea Guillermo Ketones Ql (U) Negative Normal NEGATIVE [facility] Comment on above: Performed By: #### C BC #### [facility] [address] [place] [address] Dr. Kelsea Guillermo LEUKOCYTES Negative Normal NEGATIVE [facility] Comment on above: Performed By: #### C BC #### [facility] [address] [place] [address] Dr. Kelsea Guillermo Nitrite Ql (U) Negative Normal NEGATIVE [facility] Comment on above: Performed By: #### C BC #### [facility] [address] [place] [address] Dr. Kelsea Guillermo pH (U) 5.5 [pH] Normal 5-9 [facility] Comment on above: Performed By: #### C BC #### [facility] [address] [place] [address] Dr. Kelsea Guillermo Protein (U) [Mass/Vol] 30 mg/dL Abnormal NEGAT CANDACE/ TRACE [facility] Comment on above: Performed By: #### C BC #### [facility] [address] [place] [address] Dr. Kelsea Guillermo SPEC GRAVITY 1.020 Normal 1.005-<=1. 025 [facility] Comment on above: Performed By: #### C BC #### [facility] [address] [place] [address] Dr. Kelsea Guillermo UR MICRO IND NOT INDICATED Normal [facility] Comment on above: Performed By: #### C BC #### [facility] [address] [place] [address] Dr. Kelsea Guillermo Urobilinogen Qn (U) 0.2 {Jennifer'U}/dL Normal 0.2 - 1. 0 [facility] Comment on above: Performed By: #### C BC #### [facility] [address] [place] [address] Dr. Kelsea Guillermo LACTATE/LACTIC ACIDon 2021 Lactate [Moles/Vol] 0.8 mmol/L Normal 0.4-1.9 [facility] Comment on above: Performed By: #### C BC #### [facility] [address] [place] [address] Dr. Kelsea Guillermo PROF 14(COMP METB)on 022 Albumin [Mass/Vol] 3.7 g/dL Normal 3.4-5.0 [facility] Comment on above: Performed By: #### C MARK VARGAS #### [facility] [address] [address] [address] Kelsea Guillermo Albumin/Globulin [Mass ratio] 0.9 {ratio} Normal [facility] Comment on above: Performed By: #### C ALICIA, MARK #### [facility] [address] [address] [address] Kelsea Guillermo ALP [Catalytic activity/Vol] 133 U/L Critically high 46-116 [facility] Comment on above: Performed By: #### C MARK VARGAS #### [facility] [address] [address] [address] Kelsea Guillermo ALT [Catalytic activity/Vol] 18 U/L Normal 16-63 [facility] Comment on above: Performed By: #### C MARK VARGAS #### [facility] [address] [address] [address] Kelsea Guillermo Anion gap [Moles/Vol] 12.5 mmol/L Normal [facility] Comment on above: Performed By: #### C MARK VARGAS #### [facility] [address] [place] [address] Dr. Kelsea Guillermo AST [Catalytic activity/Vol] 14 U/L Critically low 15-37 [facility] Comment on above: Performed By: #### C MARK VARGAS #### [facility] [address] [address] [address] Kelsea Guillermo Bilirubin [Mass/Vol] 0.3 mg/dL Normal 0.2-1.0 [facility] Comment on above: Performed By: #### C MARK VARGAS #### [facility] [address] [address] [address] Kelsea Guillermo Calcium [Mass/Vol] 9.0 mg/dL Normal 8.5-10.1 [facility] Comment on above: Performed By: #### C MARK VARGAS #### [facility] [address] [address] [address] Kelsea Guillermo Chloride [Moles/Vol] 102 mmol/L Normal 98-[address] [facility] Comment on above: Performed By: #### C ALICIA, CMADM #### [facility] [address] [address] [address] Kelsea Guillermo CO2 [Moles/Vol] 27.7 mmol/L Normal 21.0-32.0 [facility] Comment on above: Performed By: #### C ALICIA, CMADM #### [facility] [address] [address] [address] Kelsea Guillermo Creatinine [Mass/Vol] 1.83 mg/dL Critically high 0.70-1.[address] [facility] Comment on above: Performed By: #### C ALICIA, CMADM #### [facility] [address] [place] [address] Dr. Kelsea Guillermo EGFR-AF NIGERIEN 44 mL/min/1.73m2 Critically low >=[address] [facility] Comment on above: Performed By: #### C ALICIA, CMADM #### [facility] [address] [address] [address] Kelsea Guillermo EGFR-NON AF NIGERIEN 36 mL/min/1.73m2 Critically low >=[address] [facility] Comment on above: Performed By: #### C ALICIA, CMADM #### [facility] [address] [place] [address] Dr. Kelsea Guillermo Globulin (S) [Mass/Vol] 4.2 g/dL Normal [facility] Comment on above: Performed By: #### C ALICIA, CMADM #### [facility] [address] [address] [address] Kelsea Guillermo Glucose [Mass/Vol] 101 mg/dL Normal 74-[address] [facility] Comment on above: Performed By: #### C ALICIA, CMADM #### [facility] [address] [place] [address] Dr. Kelsea Guillermo Potassium [Moles/Vol] 4.2 mmol/L Normal 3.5-5.[address] [facility] Comment on above: Performed By: #### C ALICIA, CMADM #### [facility] [address] [address] [address] Kelsea Guillermo Protein [Mass/Vol] 7.9 g/dL Normal 6.4-8.[address] [facility] Comment on above: Performed By: #### C ALICIA, CMADM #### [facility] [address] [place], [place] [address] Dr. Kelsea Guillermo Sodium [Moles/Vol] 138 mmol/L Normal 136-[address] [facility] Comment on above: Performed By: #### C ALICIA, CMADM #### [facility] [address] [address] [address] eKlsea Guillermo Urea nitrogen [Mass/Vol] 24.0 mg/dL Critically high 7.0-18.0 [facility] Comment on above: Performed By: #### C ALICIA, CMADM #### [facility] [address] [address] [address] Kelsea Guillermo Urea nitrogen/Creatinine [Mass ratio] 13.1 mg/mg Normal [facility] Comment on above: Performed By: #### C ALICIA, CMADM #### [facility] [address] [address] [address] Kelsea Guillermo XR CHEST 1 Von 05-13-2022 XR CHEST 1 V EXAM: XR CHEST 1 V a t 1957 hours HISTORY: Pain COMPARISON: 02/23/2021 TECHNIQUE: AP upright portable chest x-ray FINDINGS: The heart is not enlarged and the vasculature is not distended. No acute infiltrate, effusion or pneumothorax is identified. Slight chronic changes are seen at the left lung base and costophrenic angle. The osseous structures are grossly intact. IMPRESSION: No acute infiltrate or evidence of cardiac decompensation. The overall appearance of the chest is unchanged. Electronically authenticated by: DEVENDRA GUTIERREZ Date: 2022-05-13 20:[address] [facility] HIP LEFT 1 OR 2 VWS WITH PEL VISon 02-15-2022 HIP LEFT 1 OR 2 VWS WITH PELVIS [facility] Department of Radiology [address] [place] [id number] Patient Name: NIELS MCCULLOUGH : 1945 Sex: M Age: Race: White Pt. 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 COMPARISON: 02/04/2022 FINDINGS: The previously described left hip arthroplasty is again seen and is stable in appearance. Deformity of the left femoral neck is felt to be related to previous trauma and surgeries. No hardware abnormalities are seen. The remainder the visualized osseous structures are intact. There is a catheter in the mid pelvis with its tip most likely in urinary bladder. IMPRESSION: Normal-appearing left hip arthroplasty. Electronically signed: Mika Bolaños. Transcribed by: [email or web address], User Resident: Electronically Signed by: MIKA BOLAÑOS @ 02/18/2022 11:21 AM Normal [facility] Comment on above: Order Comment: evalu ate for Aspiration BASIC METABOLIC PANELon 04-1 Calcium [Mass/Vol] 7.7 mg/dL Low 8.6-10.3 [facility] Comment on above: Order Comment: No: D o not add to previous draw Performed By: #### 0 [id number] ####[facility] [place] [address], [facility] Chloride [Moles/Vol] 106 mmol/L Normal 98-107 [facility] Comment on above: Order Comment: No: D o not add to previous draw Performed By: #### 0 0071 ####[facility] [place] [address], [place] CO2 [Moles/Vol] 24 mmol/L Normal 21-31 [facility] Comment on above: Order Comment: No: D o not add to previous draw Performed By: #### 0 0071 ####[facility] [place] [address], [facility] Creatinine [Mass/Vol] 1.56 mg/dL High 0.70-1.30 [facility] Comment on above: Order Comment: No: D o not add to previous draw Performed By: #### 0 0071 ####[facility] [place] [address], [facility] eGFR- 53 ml/min/1.73sq m Abnormal >60 [facility] Comment on above: Order Comment: No: D o not add to previous draw Result Comment: Calc ulation may not be valid for patients over 70 years Performed By: #### 0 0071 ####[facility] [place] [address], [facility] eGFR- non- 44 ml/min/1.73sq m Abnormal >60 [facility] Comment on above: Order Comment: No: D o not add to previous draw Result Comment: Calc ulation may not be valid for patients over 70 years Performed By: #### 0 0071 ####[facility] [place] [address], [place] Glucose [Mass/Vol] 104 mg/dL High 70-100 [facility] Comment on above: Order Comment: No: D o not add to previous draw Performed By: #### 0 0071 ####[facility] [place] [address], [facility] Potassium [Moles/Vol] 3.8 mmol/L Normal 3.5-5.1 [facility] Comment on above: Order Comment: No: D o not add to previous draw Performed By: #### 0 0071 ####[facility] [place] [address], [facility] Sodium [Moles/Vol] 137 mmol/L Normal 136-145 [facility] Comment on above: Order Comment: No: D o not add to previous draw Performed By: #### 0 0071 ####[facility] [place] [address], [facility] Urea nitrogen [Mass/Vol] 27 mg/dL High 7-25 [facility] Comment on above: Order Comment: No: D o not add to previous draw Performed By: #### 0 0071 ####[facility] [facility].[address] CBC COMPLETE BLOOD COUNTon 0 - Erythrocyte distribution width (RBC) [Ratio] 14.5 % Normal 11.5-15.0 [facility] Comment on above: Order Comment: LEFT HIP SCREW HEAD TISSUE Performed By: #### 3 0338 #### [facility] [address] [place] [address], [facility] Hematocrit (Bld) [Volume fraction] 24.7 % Low 39.0-50.0 [facility] Comment on above: Order Comment: LEFT HIP SCREW HEAD TISSUE Performed By: #### 3 0338 #### [facility] [address] [place] [address], [facility] Hemoglobin (Bld) [Mass/Vol] 8.1 g/dL Low 13.0-17.0 [facility] Comment on above: Order Comment: LEFT HIP SCREW HEAD TISSUE Performed By: #### 3 0338 #### [facility] [address] MCH (RBC) [Entitic mass] 32.5 pg Normal 27.0-33.0 [facility] Comment on above: Order Comment: LEFT HIP SCREW HEAD TISSUE Performed By: #### 3 0338 #### [facility] [address] MCHC (RBC) [Mass/Vol] 32.8 g/dL Normal 32.0-35.0 [facility] Comment on above: Order Comment: LEFT HIP SCREW HEAD TISSUE Performed By: #### 3 0338 #### [facility] [address] [place] [address], [facility] MCV (RBC) [Entitic vol] 99.2 fL High 82.0-98.0 [facility] Comment on above: Order Comment: LEFT HIP SCREW HEAD TISSUE Performed By: #### 3 0338 #### [facility] [address] Nucleated RBC/100 WBC (Bld) [Ratio] 0 % Normal 0-0 [facility] Comment on above: Order Comment: LEFT HIP SCREW HEAD TISSUE Performed By: #### 3 0338 #### [facility] [address] [place] [address], [facility] PLAT CNT 177 10*3/uL Normal 150-400 [facility] Comment on above: Order Comment: LEFT HIP SCREW HEAD TISSUE Performed By: #### 3 0338 #### [facility] [address] [facility] [address], [facility] RBC (Bld) [#/Vol] 2.49 10*6/uL Low 4.20-5.70 [facility] Comment on above: Order Comment: LEFT HIP SCREW HEAD TISSUE Performed By: #### 3 0338 #### [facility] [address] WBC (Bld) [#/Vol] 10.19 10*3/uL Normal 4.00-10.60 [facility] Comment on above: Order Comment: LEFT HIP SCREW HEAD TISSUE Performed By: #### 3 0338 #### [facility] [address] [place] [address], [facility] PROTHROMBIN TIMEon 2 INR Coag (PPP) [Relative time] 1.25 {INR} High 0.91-1.16 [facility] Comment on above: Order Comment: LEFT HIP FLUID #2 Result Comment: ACCC P RECOMMENDED INR FOR WARFARIN THERAPY --------- ------- CONDITION INR PROPHYLAXIS OF VENOUS THROMBOSIS 2-3 (HIGH-RISK SURGERY) TREATMENT OF VENOUS THROMBOSIS 2-3 TREATMENT OF PULMONARY EMBOLISM 2-3 PREVENTION OF SYSTEMIC EMBOLISM: 2-3 ACUTE MYOCARDIAL INFARCTION TISSUE HEART VALVES VALVULAR HEART DISEASE ATRIAL FIBRILLATION RECURRENT SYSTEMIC EMBOLISM MECHANICAL HEART VALVE 2.5-3.5 FROM: ORAL ANTICOAGULANTS. MECHANISM OF ACTION, CLINICAL EFFECTIVENESS, AND OPTIMAL THERAPEUTIC RANGE. CHEST 1995;108:231S-246S. Performed By: #### 3 0318 #### [facility] [address] [place] [address], [facility] PT Coag (PPP) [Time] 15.7 s High 12.3-14.8 [facility] Comment on above: Order Comment: LEFT HIP FLUID #2 Result Comment: ALL RESULTS MUST BE INTERPRETED WITH RESPECT TO BLOOD DRAWING ARTIFACT OR DILUTION ERROR OF ANTICOAGULANT AT THE TIME OF SAMPLING. Performed By: #### 3 0318 #### [facility] [address] [place] [address], [facility] BASIC METABOLIC PANELon 04- Calcium [Mass/Vol] 7.9 mg/dL Low 8.6-10.3 [facility] Comment on above: Order Comment: evalu ate for Aspiration Performed By: #### 0 0071 ####[facility] [place] [address], [facility] Chloride [Moles/Vol] 104 mmol/L Normal 98-107 [facility] Comment on above: Order Comment: evalu ate for Aspiration Performed By: #### 0 0071 ####[facility] [place] [address], [facility] CO2 [Moles/Vol] 27 mmol/L Normal 21-31 [facility] Comment on above: Order Comment: evalu ate for Aspiration Performed By: #### 0 0071 ####[facility] [place] [address], [facility] Creatinine [Mass/Vol] 1.78 mg/dL High 0.70-1.30 [facility] Comment on above: Order Comment: evalu ate for Aspiration Performed By: #### 0 0071 ####[facility] [place] [address], [facility] eGFR- 45 ml/min/1.73sq m Abnormal >60 [facility] Comment on above: Order Comment: evalu ate for Aspiration Result Comment: Calc ulation may not be valid for patients over 70 years Performed By: #### 0 0071 ####[facility] [place] [address], [facility] eGFR- non- 37 ml/min/1.73sq m Abnormal >60 [facility] Comment on above: Order Comment: evalu ate for Aspiration Result Comment: Calc ulation may not be valid for patients over 70 years Performed By: #### 0 0071 ####[facility] [facility].[address] Glucose [Mass/Vol] 115 mg/dL High 70-100 [facility] Comment on above: Order Comment: evalu ate for Aspiration Performed By: #### 0 0071 ####[facility] [facility] [place] [address], [facility] Potassium [Moles/Vol] 3.6 mmol/L Normal 3.5-5.1 [facility] Comment on above: Order Comment: evalu ate for Aspiration Performed By: #### 0 0071 ####[facility] [facility].[address] Sodium [Moles/Vol] 136 mmol/L Normal 136-145 [facility] Comment on above: Order Comment: evalu ate for Aspiration Performed By: #### 0 0071 ####[facility] [facility].[address] Urea nitrogen [Mass/Vol] 35 mg/dL High 7-25 [facility] Comment on above: Order Comment: evalu ate for Aspiration Performed By: #### 0 0071 ####[facility] CBC W/DIFFon 02-06-2022 ABS IMM GRANS 0.1 10*3/uL Normal 0.0-0.2 [facility] Comment on above: Order Comment: No: D o not add to previous draw Performed By: #### 5 0103 #### [facility] [address] [place] [address], [facility] ABS NEUTROPHILS 9.3 10*3/uL High 1.6-7.6 [facility] Comment on above: Order Comment: No: D o not add to previous draw Performed By: #### 5 0103 #### [facility] [address] [place] [address], [facility] Basophils (Bld) [#/Vol] 0.0 10*3/uL Normal 0.0-0.2 [facility] Comment on above: Order Comment: No: D o not add to previous draw Performed By: #### 5 0103 #### [facility] [address] [place] [address], [facility] Basophils/100 WBC (Bld) 0.3 % Normal 0.0-1.0 [facility] Comment on above: Order Comment: No: D o not add to previous draw Performed By: #### 5 0103 #### [facility] [address] [place] [id number], [facility] Eosinophils (Bld) [#/Vol] 0.1 10*3/uL Normal 0.0-0.5 [facility] Comment on above: Order Comment: No: D o not add to previous draw Performed By: #### 5 0103 #### [facility] [address] [place] [id number], [facility] Eosinophils/100 WBC (Bld) 0.4 % Normal 0.0-6.0 [facility] Comment on above: Order Comment: No: D o not add to previous draw Performed By: #### 5 0103 #### [facility] [address] [place] [address], [facility] Erythrocyte distribution width (RBC) [Ratio] 14.6 % Normal 11.5-15.0 [facility] Comment on above: Order Comment: No: D o not add to previous draw Performed By: #### 5 0103 #### [facility] [address] [place] [id number], [facility] Hematocrit (Bld) [Volume fraction] 25.3 % Low 39.0-50.0 [facility] Comment on above: Order Comment: No: D o not add to previous draw Performed By: #### 5 0103 #### [facility] [address] [place] [id number], [facility] Hemoglobin (Bld) [Mass/Vol] 8.3 g/dL Low 13.0-17.0 [facility] Comment on above: Order Comment: No: D o not add to previous draw Performed By: #### 5 0103 #### [facility] [address] [place] [address], [facility] IMMATURE GRANS 0.6 % Normal 0.0-1.0 [facility] Comment on above: Order Comment: No: D o not add to previous draw Performed By: #### 5 0103 #### [facility] [address] [place] [address], [facility] Lymphocytes (Bld) [#/Vol] 1.3 10*3/uL Normal 1.2-4.0 [facility] Comment on above: Order Comment: No: D o not add to previous draw Performed By: #### 5 0103 #### [facility] [address] [facility] [place] [address], [facility] Lymphocytes/100 WBC (Bld) 10.8 % Low 20.0-45.0 [facility] Comment on above: Order Comment: No: D o not add to previous draw Performed By: #### 5 0103 #### [facility] [address] [facility] [place] [address], [facility] MCH (RBC) [Entitic mass] 31.8 pg Normal 27.0-33.0 [facility] Comment on above: Order Comment: No: D o not add to previous draw Performed By: #### 5 0103 #### [facility] [address] [place] [address], [facility] MCHC (RBC) [Mass/Vol] 32.8 g/dL Normal 32.0-35.0 [facility] Comment on above: Order Comment: No: D o not add to previous draw Performed By: #### 5 0103 #### [facility] [address] [place] [id number], [facility] MCV (RBC) [Entitic vol] 96.9 fL Normal 82.0-98.0 [facility] Comment on above: Order Comment: No: D o not add to previous draw Performed By: #### 5 0103 #### [facility] [address] [place] [address], [facility] Monocytes (Bld) [#/Vol] 1.1 10*3/uL High 0.1-1.0 [facility] Comment on above: Order Comment: No: D o not add to previous draw Performed By: #### 5 0103 #### [facility] [address] [place] [address], [facility] MONOS 9.1 % Normal 5.0-12.0 [facility] Comment on above: Order Comment: No: D o not add to previous draw Performed By: #### 5 0103 #### [facility] [address] [facility] [place] [address], [facility] Neutrophils/100 WBC (Bld) 78.8 % High 40.0-72.0 [facility] Comment on above: Order Comment: No: D o not add to previous draw Performed By: #### 5 0103 #### [facility] [address] [place] [address], [facility] Nucleated RBC/100 WBC (Bld) [Ratio] 0 % Normal 0-0 [facility] Comment on above: Order Comment: No: D o not add to previous draw Performed By: #### 5 0103 #### [facility] [address] [place] [address], [facility] PLAT CNT 182 10*3/uL Normal 150-400 [facility] Comment on above: Order Comment: No: D o not add to previous draw Performed By: #### 5 0103 #### [facility] [address] [facility] [place] [address], [facility] RBC (Bld) [#/Vol] 2.61 10*6/uL Low 4.20-5.70 [facility] Comment on above: Order Comment: No: D o not add to previous draw Performed By: #### 5 0103 #### [facility] [address] [facility]. [address] WBC (Bld) [#/Vol] 11.78 10*3/uL High 4.00-10.60 [facility] Comment on above: Order Comment: No: D o not add to previous draw Performed By: #### 5 0103 #### [facility] [address] [facility]. [address] PROTHROMBIN TIMEon 2 INR Coag (PPP) [Relative time] 1.18 {INR} High 0.91-1.16 [facility] Comment on above: Order Comment: No: D o not add to previous draw Result Comment: ACCC P RECOMMENDED INR FOR WARFARIN THERAPY --------- ------- CONDITION INR PROPHYLAXIS OF VENOUS THROMBOSIS 2-3 (HIGH-RISK SURGERY) TREATMENT OF VENOUS THROMBOSIS 2-3 TREATMENT OF PULMONARY EMBOLISM 2-3 PREVENTION OF SYSTEMIC EMBOLISM: 2-3 ACUTE MYOCARDIAL INFARCTION TISSUE HEART VALVES VALVULAR HEART DISEASE ATRIAL FIBRILLATION RECURRENT SYSTEMIC EMBOLISM MECHANICAL HEART VALVE 2.5-3.5 FROM: ORAL ANTICOAGULANTS. MECHANISM OF ACTION, CLINICAL EFFECTIVENESS, AND OPTIMAL THERAPEUTIC RANGE. CHEST 1995;108:231S-246S. Performed By: #### 5 6101 ####[facility] PT Coag (PPP) [Time] 15.1 s High 12.3-14.8 [facility] Comment on above: Order Comment: No: D o not add to previous draw Result Comment: ALL RESULTS MUST BE INTERPRETED WITH RESPECT TO BLOOD DRAWING ARTIFACT OR DILUTION ERROR OF ANTICOAGULANT AT THE TIME OF SAMPLING. Performed By: #### 5 6101 ####[facility] [place] [address], [place] UA,MICROSCOPIC REQUIREDon Appearance (U) SL CLOUDY Abnormal CLEAR The [facility] Comment on above: Order Comment: No: D o not add to previous draw Performed By: #### 9 0150 #### [facility] [address] [place] [address], [place] Bilirubin Ql (U) Negative Normal NEGATIVE The [facility] Comment on above: Order Comment: No: D o not add to previous draw Performed By: #### 9 0150 #### [facility] [address] [place] [address], [place] Color (U) YELLOW Normal YELLOW The [facility] Comment on above: Order Comment: No: D o not add to previous draw Performed By: #### 9 0150 #### [facility] [address] [place] [address], [place] EPIS NONE SEEN Normal FEW,OCC,NO NE SEEN The [facility] Comment on above: Order Comment: No: D o not add to previous draw Performed By: #### 9 0150 #### [facility] [address] [place] [address], [place] Glucose Ql (U) Negative Normal NEGATIVE The [facility] Comment on above: Order Comment: No: D o not add to previous draw Performed By: #### 9 0150 #### [facility] [address] [place] [address], [place] Hemoglobin Ql (U) SMALL Abnormal NEGATIVE The [facility] Comment on above: Order Comment: No: D o not add to previous draw Performed By: #### 9 0150 #### [facility] [address] [place] [address], [place] KETONE Negative Normal NEGATIVE The [facility] Comment on above: Order Comment: No: D o not add to previous draw Performed By: #### 9 0150 #### [facility] [address] [place] [address], [facility] LEUK JALYN Negative Normal NEGATIVE The [facility] Comment on above: Order Comment: No: D o not add to previous draw Performed By: #### 9 0150 #### [facility] [address] [place] [address], [facility] Nitrite Ql (U) Negative Normal NEGATIVE The [facility] Comment on above: Order Comment: No: D o not add to previous draw Performed By: #### 9 0150 #### [facility] [address] [place] [address], [facility] pH (U) 5.0 [pH] Normal 5.0-8.0 [facility] Comment on above: Order Comment: No: D o not add to previous draw Performed By: #### 9 0150 #### [facility] [address] [place] [address], [facility] Protein Ql (U) 30 mg/dL Abnormal NEGATIVE The [facility] Comment on above: Order Comment: No: D o not add to previous draw Performed By: #### 9 0150 #### [facility] [address] [place] [address], [facility] RBC 3-5 Abnormal NONE SEEN The [facility] Comment on above: Order Comment: No: D o not add to previous draw Performed By: #### 9 0150 #### [facility] [address] [place] [address], [facility] SPEC GRAV 1.016 Normal 1.015-1.02 0 [facility] Comment on above: Order Comment: No: D o not add to previous draw Performed By: #### 9 0150 #### [facility] [address] [place] [address], [facility] WBC UA 0-2 Abnormal NONE SEEN The [facility] Comment on above: Order Comment: No: D o not add to previous draw Performed By: #### 9 0150 #### [facility] [address] APTTon 02-05-2022 aPTT Coag (Bld) [Time] 34.1 s Normal 25.0-35.0 Th e [facility] Comment on above: Order Comment: if no t already doneNo: Do not add to previous draw Result Comment: ALL RESULTS MUST BE INTERPRETED WITH RESPECT TO BLOOD DRAWING ARTIFACT OR DILUTION ERROR OF ANTICOAGULANT AT THE TIME OF SAMPLING. THE APTT SHOULD NOT BE USED TO MONITOR UNFRACTIONATED HEPARIN THERAPY, THIS LABORATORY NO LONGER HAS AN ESTABLISHED THERAPEUTIC RANGE BASED ON THE APTT. IT IS RECOMMENDED THAT THE [facility] - HEPARIN ASSAY (ANTI-XA ACTIVITY) BE USED FOR THIS PURPOSE. Performed By: #### 5 7307, [id number] ####[facility] BASIC METABOLIC PANELon 01-25 Calcium [Mass/Vol] 8.2 mg/dL Low 8.6-10.3 The [facility] Comment on above: Order Comment: evalu ate for Aspiration Performed By: #### 0 0071 ####[facility] [place] [address], [facility] Chloride [Moles/Vol] 108 mmol/L High 98-107 The [facility] Comment on above: Order Comment: evalu ate for Aspiration Performed By: #### 0 0071 ####[facility] [place] [address], [facility] CO2 [Moles/Vol] 22 mmol/L Normal 21-31 The [facility] Comment on above: Order Comment: evalu ate for Aspiration Performed By: #### 0 0071 ####[facility] [place] [address], [facility] Creatinine [Mass/Vol] 1.64 mg/dL High 0.70-1.30 The [facility] Comment on above: Order Comment: evalu ate for Aspiration Performed By: #### 0 0071 ####[facility] [place] [address], [facility] eGFR- 50 ml/min/1.73sq m Abnormal >60 The [facility] Comment on above: Order Comment: evalu ate for Aspiration Result Comment: Calc ulation may not be valid for patients over 70 years Performed By: #### 0 0071 ####[facility] [place] [address], [facility] eGFR- non- 41 ml/min/1.73sq m Abnormal >60 The [facility] Comment on above: Order Comment: evalu ate for Aspiration Result Comment: Calc ulation may not be valid for patients over 70 years Performed By: #### 0 0071 ####[facility] [place] [address], [facility] Glucose [Mass/Vol] 145 mg/dL High 70-100 The [facility] Comment on above: Order Comment: evalu ate for Aspiration Performed By: #### 0 0071 ####[facility] [place] [address], [facility] Potassium [Moles/Vol] 3.9 mmol/L Normal 3.5-5.1 The [facility] Comment on above: Order Comment: evalu ate for Aspiration Performed By: #### 0 0071 ####[facility] [place] [address], [place] Sodium [Moles/Vol] 137 mmol/L Normal 136-145 The [facility] Comment on above: Order Comment: evalu ate for Aspiration Performed By: #### 0 0071 ####[facility] [place] [address], [place] Urea nitrogen [Mass/Vol] 27 mg/dL High 7-25 The [facility] Comment on above: Order Comment: evalu ate for Aspiration Performed By: #### 0 0071 ####[facility], [place] [address] Operative Reporton 2 Operative Report MR#: [id number] I [facility] Pt. Name: Niels Mccullough Jr Room #: [id number] Discharge Date: Birthdate: 1945 OPERATIVE REPORT DATE OF SURGERY: 02/04/2022 SURGEON: Vineet Gomez M.D. PRIMARY CARE PHYSICIAN: Thee Mcguire D.O. ASSISTANTS: 1. Paulino Britton M.D., resident orthopedic surgery. 2. first lamin Peterson. ANESTHESIA: By Dr. Nayak and Dr. Salazar. TYPE OF ANESTHESIA: General along with arterial line. PREOPERATIVE DIAGNOSES: 1. 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 2. 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 3. 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 4. Limb length discrepancy, left shorter as compared to right side by about 1.5 inches. SECONDARY DIAGNOSIS: 1. Cardiovascular disease with chronic anticoagulation. 2. Lumbosacral degenerative arthritis and radiculopathy with severe wasting of the hip girdle muscles. POSTOPERATIVE DIAGNOSES: 1. 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 2. 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 3. 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 4. Limb length discrepancy, left shorter as compared to right side by about 1.5 inches. PROCEDURES PERFORMED: 1. Conversion left total hip arthroplasty after removal of left hip hardware, debridement, and washout. 2. Superficial and deep removal of heterotrophic ossification, left hip joint along with debridement and complex primary hip arthroplasty. 3. Superficial and deep primary closure with bone grafting, left hip joint. BLOOD LOSS: More than usual 600 mL at the end of the procedure. SPECIMENS: Culture and sensitivity from the hip joint as well as multiple areas: 1. Fresh tissue from the left hip joint fluid. 2. Left hip fluid from the nail area. 3. Left hip head fresh tissue. 4. Intramedullary fresh tissue. IMPLANTS USED: 1. Alex and Nephew reflection 3-hole cup size 58 mm outer diameter with 3-hole hemispherical cup stick-tied coated. 2. 6.5 x 40 mm screw. 3. 6.5 x 25 mm screw. 4. Dual mobility Oxinium liner, inner diameter 44 mm and 58 mm outer diameter Oxinium dual mobility liner. 5. 28 mm inner diameter and 44 mm outer diameter dual mobility insert XLT. 6. Oxinium 28 mm outer diameter +0 taper adapter femoral head zirconium 2.5 Nb. 7. REDAPT femoral high offset size 19H, 240 mm length sleeveless stem revision femoral component. OTHER COMPLICATIONS: None. INDICATIONS FOR THE PROCEDURE: Mr. Mccullough is a 76-year-old male, who is known to have severe deafness and is status post left intertrochanteric fracture that was treated by Dr. King that went into loss of malunion initially with a further nonunion with shortening of the left lower extremity and severe pain of his left hip joint. The patient was seen at an outside ER and had x-rays, which revealed cut-out of the left femoral head screw into the acetabulum leading to further pain and difficulty in ambulation along with severe shortening of the left hip joint. The patient had x-rays, which reveal severe shortening of the left lower extremity with severe HO at the transverse acetabular ligament as well as cut-out of the femoral hip screw along with lateralization and secondary degenerative arthritis of the hip joint. The patient is unable to ambulate due to the severe pain. X-rays showed above-mentioned diagnosis. The patient is indicated for conversion to left hip arthroplasty. Details of the procedure and risks and benefits and treatment options were discussed at length with the patient. Risks and benefits were discussed, which are but not restricted to bleeding, infection, neurovascular injury, residual pain, stiffness, anesthetic risk, deep vein thrombosis, pulmonary embolism, myocardial infarction, stroke, mortality less than 1%, recurrent dislocations due to severe scarring and shortening, limb length discrepancy, need for further revision hip arthroplasty, need for posterior precautions at all times, physical therapy, use of a pillow in between 2 legs for prevention of dislocation, blood loss requiring f (more content not included)... Normal [facility] PROTHROMBIN TIMEon 2 INR Coag (PPP) [Relative time] 1.27 {INR} High 0.91-1.16 [facility] Comment on above: Order Comment: if no t already doneNo: Do not add to previous draw Result Comment: ACCC P RECOMMENDED INR FOR WARFARIN THERAPY --------- ------- CONDITION INR PROPHYLAXIS OF VENOUS THROMBOSIS 2-3 (HIGH-RISK SURGERY) TREATMENT OF VENOUS THROMBOSIS 2-3 TREATMENT OF PULMONARY EMBOLISM 2-3 PREVENTION OF SYSTEMIC EMBOLISM: 2-3 ACUTE MYOCARDIAL INFARCTION TISSUE HEART VALVES VALVULAR HEART DISEASE ATRIAL FIBRILLATION RECURRENT SYSTEMIC EMBOLISM MECHANICAL HEART VALVE 2.5-3.5 FROM: ORAL ANTICOAGULANTS. MECHANISM OF ACTION, CLINICAL EFFECTIVENESS, AND OPTIMAL THERAPEUTIC RANGE. CHEST 1995;108:231S-246S. Performed By: #### 5 7307, [id number] ####[facility].[address] PT Coag (PPP) [Time] 15.9 s High 12.3-14.8 [facility] Comment on above: Order Comment: if no t already doneNo: Do not add to previous draw Result Comment: ALL RESULTS MUST BE INTERPRETED WITH RESPECT TO BLOOD DRAWING ARTIFACT OR DILUTION ERROR OF ANTICOAGULANT AT THE TIME OF SAMPLING. Performed By: #### 5 7307, 35050 ####[facility].[address] *ANAEROBIC CULTUREon 022 *ANAEROBIC CULTURE Clinical Report: (D) Specimen/Source: TISSUE/INTRAOP SPEC Collected: 02/04/2022 17:29 Status: Final Last Updated: 02/09/2022 07:31 (1) LEFT HIP SCREW HEAD TISSUE CULT RES (Final) No Anaerobes Isolated 5 Days Normal [facility] Comment on above: Order Comment: No: D o not add to previous draw Performed By: #### 9 0150 #### [facility] [address] [place] [address], [facility] *ANAEROBIC CULTURE Clinical Report: (D) Specimen/Source: TISSUE/INTRAOP SPEC Collected: 02/04/2022 17:28 Status: Final Last Updated: 02/09/2022 07:31 (1) LEFT HIP NAIL HEAD CULT RES (Final) No Anaerobes Isolated 5 Days Normal [facility] Comment on above: Order Comment: LEFT HIP SCREW HEAD TISSUE Performed By: #### 3 0338 #### [facility] [address] [place] [address], [facility] *ANAEROBIC CULTURE Clinical Report: (D) Specimen/Source: FLUID/INTRAOP SPEC Collected: 02/04/2022 17:28 Status: Final Last Updated: 02/09/2022 07:31 (1) LEFT HIP FLUID #2 CULT RES (Final) No Anaerobes Isolated 5 Days Normal [facility] Comment on above: Order Comment: LEFT HIP SCREW HEAD TISSUE Performed By: #### 3 0338 #### [facility] [address] [place] [address], [facility] *ANAEROBIC CULTURE Clinical Report: (D) Specimen/Source: FLUID/INTRAOP SPEC Collected: 02/04/2022 17:26 Status: Final Last Updated: 02/09/2022 07:31 (1) LEFT HIP FLUID #1 CULT RES (Final) No Anaerobes Isolated 5 Days Normal [facility] Comment on above: Order Comment: LEFT HIP FLUID #2 Performed By: #### 3 0318 #### [facility] [address] [place] [address], [facility] *ANAEROBIC CULTURE Clinical Report: (D) Specimen/Source: TISSUE/INTRAOP SPEC Collected: 02/04/2022 17:25 Status: Final Last Updated: 02/09/2022 07:31 (1) LEFT HIP CULT RES (Final) No Anaerobes Isolated 5 Days Normal [facility] Comment on above: Order Comment: No: D o not add to previous draw Performed By: #### 9 0150 #### [facility] [address] [place] [address], [facility] *BODY FLUID CULTUREon 2021 *BODY FLUID CULTURE Clinical Report: (D) Specimen/Source: FLUID/INTRAOP SPEC Collected: 02/04/2022 17:28 Status: Final Last Updated: 02/09/2022 06:34 (1) LEFT HIP FLUID #2 GRAM (Final) Moderate Polys No Bacteria Seen CULT RES (Final) No Growth Day 5 Normal [facility] Comment on above: Order Comment: LEFT HIP FLUID #2 Performed By: #### 3 0318 #### [facility] [address] [place] [address], [facility] *BODY FLUID CULTURE Clinical Report: (D) Specimen/Source: FLUID/INTRAOP SPEC Collected: 02/04/2022 17:26 Status: Final Last Updated: 02/09/2022 06:34 (1) LEFT HIP FLUID #1 GRAM (Final) Moderate Polys No Bacteria Seen CULT RES (Final) No Growth Day 5 Normal [facility] Comment on above: Order Comment: LEFT HIP SCREW HEAD TISSUE Performed By: #### 3 0338 #### [facility] [address] [place] [address], [facility] *FUNGAL CULTUREon 02-04-2022 *FUNGAL CULTURE Clinical Report: (D) Specimen/Source: TISSUE/INTRAOP SPEC Collected: 02/04/2022 17:29 Status: Final Last Updated: 04/10/2022 08:13 (1) LEFT HIP SCREW HEAD TISSUE FS (Final) No Yeast or Fungal Elements Seen CULT RES (Final) Culture negative for fungus Normal [facility] Comment on above: Order Comment: LEFT HIP SCREW HEAD TISSUE Performed By: #### 3 0338 #### [facility] [address] [place] [address], [facility] *FUNGAL CULTURE Clinical Report: (D) Specimen/Source: FLUID/INTRAOP SPEC Collected: 02/04/2022 17:28 Status: Final Last Updated: 04/10/2022 08:13 (1) LEFT HIP FLUID #2 FS (Final) No Yeast or Fungal Elements Seen CULT RES (Final) Culture negative for fungus Normal [facility] Comment on above: Order Comment: LEFT HIP FLUID #2 Performed By: #### 3 0323 #### [facility] [address] [place] [address], [facility] *FUNGAL CULTURE Clinical Report: (D) Specimen/Source: TISSUE/INTRAOP SPEC Collected: 02/04/2022 17:28 Status: Final Last Updated: 04/10/2022 08:13 (1) LEFT HIP NAIL HEAD FS (Final) No Yeast or Fungal Elements Seen CULT RES (Final) Culture negative for fungus Normal [facility] Comment on above: Order Comment: LEFT HIP SCREW HEAD TISSUE Performed By: #### 3 0338 #### [facility] [address] [place] [address], [facility] *FUNGAL CULTURE Clinical Report: (D) Specimen/Source: FLUID/INTRAOP SPEC Collected: 02/04/2022 17:26 Status: Final Last Updated: 04/10/2022 08:13 (1) LEFT HIP FLUID #1 FS (Final) No Yeast or Fungal Elements Seen CULT RES (Final) Culture negative for fungus Normal [facility] Comment on above: Order Comment: LEFT HIP FLUID #2 Performed By: #### 3 0318 #### [facility] [address] [place] [address], [facility] *FUNGAL CULTURE Clinical Report: (D) Specimen/Source: TISSUE/INTRAOP SPEC Collected: 02/04/2022 17:25 Status: Final Last Updated: 04/10/2022 08:13 (1) LEFT HIP FS (Final) No Yeast or Fungal Elements Seen CULT RES (Final) Culture negative for fungus Normal [facility] Comment on above: Order Comment: LEFT HIP Performed By: #### 3 0323 #### [facility] [address] *TISSUE CULTUREon 02-04-2022 *TISSUE CULTURE Clinical Report: (D) Specimen/Source: TISSUE/INTRAOP SPEC Collected: 02/04/2022 17:29 Status: Final Last Updated: 02/09/2022 06:34 (1) LEFT HIP SCREW HEAD TISSUE GRAM (Final) Moderate Polys No Bacteria Seen CULT RES (Final) No Growth Day 5 Normal [facility] Comment on above: Order Comment: LEFT HIP SCREW HEAD TISSUE Performed By: #### 3 0338 #### [facility] [address] *TISSUE CULTURE Clinical Report: (D) Specimen/Source: TISSUE/INTRAOP SPEC Collected: 02/04/2022 17:28 Status: Final Last Updated: 02/09/2022 06:33 (1) LEFT HIP NAIL HEAD GRAM (Final) Moderate Polys No Bacteria Seen CULT RES (Final) No Growth Day 5 Normal [facility] Comment on above: Order Comment: LEFT HIP FLUID #2 Performed By: #### 3 0318 #### [facility] [address] *TISSUE CULTURE Clinical Report: (D) Specimen/Source: TISSUE/INTRAOP SPEC Collected: 02/04/2022 17:25 Status: Final Last Updated: 02/09/2022 06:33 (1) LEFT HIP GRAM (Final) Many Polys No Bacteria Seen CULT RES (Final) No Growth Day 5 Normal [facility] Comment on above: Order Comment: LEFT HIP SCREW HEAD TISSUE Performed By: #### 3 0338 #### [facility] [address] APTTon 02-04-2022 aPTT Coag (Bld) [Time] 43.4 s High 25.0-35.0 Th e [facility] Comment on above: Order Comment: No: D o not add to previous draw Result Comment: ALL RESULTS MUST BE INTERPRETED WITH RESPECT TO BLOOD DRAWING ARTIFACT OR DILUTION ERROR OF ANTICOAGULANT AT THE TIME OF SAMPLING. THE APTT SHOULD NOT BE USED TO MONITOR UNFRACTIONATED HEPARIN THERAPY, THIS LABORATORY NO LONGER HAS AN ESTABLISHED THERAPEUTIC RANGE BASED ON THE APTT. IT IS RECOMMENDED THAT THE [facility] - HEPARIN ASSAY (ANTI-XA ACTIVITY) BE USED FOR THIS PURPOSE. Performed By: #### 5 7307, 67324 ####[facility] [place] [address], [facility] ARTERIAL BLOOD GAS W/COOXon 02-04-2022 BASE EXCESS -2 mmol/L Normal -2-3 [facility] Comment on above: Performed By: #### 3 0318 #### [facility] [address] [place] [address], [facility] COHB 1.5 % Normal 0.0-1.5 [facility] Comment on above: Performed By: #### 3 0318 #### [facility] [address] [place] [address], [facility] DELIVERY SYSTEMS OR VENT Normal [facility] Comment on above: Performed By: #### 3 0318 #### [facility] [address] [place] [address], [facility] HCO3 (Bld) [Moles/Vol] 22 mmol/L Normal 21-28 Th e [facility] Comment on above: Performed By: #### 3 0318 #### [facility] [address] [place] [address], [facility] METHB 0.6 % Normal 0.0-1.5 [facility] Comment on above: Performed By: #### 3 0318 #### [facility] [address] [place] [address], [facility] MODALITY OR VENT Normal [facility] Comment on above: Performed By: #### 3 0318 #### [facility] [address] [place] [address], [facility] Oxygen (Bld) [Partial pressure] 203 mm[Hg] Critically high 83-108 [facility] Comment on above: Performed By: #### 3 0318 #### [facility] [address] [place] [address], [facility] Oxygen saturation in Blood 97.8 % High 94.0-97.0 [facility] Comment on above: Performed By: #### 3 0318 #### [facility] [address] [place] [address], [facility] PCO2 35 mmHg Normal 35-45 [facility] Comment on above: Performed By: #### 3 0318 #### [facility] [address] [place] [address], [facility] pH (Bld) 7.41 [pH] Normal 7.35-7.45 [facility] Comment on above: Performed By: #### 3 0318 #### [facility] [address] [place] [address], [facility] THB 10.0 g/dL Low 12.0-16.3 [facility] Comment on above: Performed By: #### 3 0318 #### [facility] [address] [place] [address], [facility] BASIC METABOLIC PANELon 01-25 Calcium [Mass/Vol] 8.6 mg/dL Normal 8.6-10.3 [facility] Comment on above: Order Comment: evalu ate for Aspiration Performed By: #### 1 0070, 34334, 03550 ####[facility] [place] [address], [facility] Chloride [Moles/Vol] 106 mmol/L Normal 98-107 [facility] Comment on above: Order Comment: evalu ate for Aspiration Performed By: #### 1 0, 10629, 46199 ####[facility] [place] [address], [place] CO2 [Moles/Vol] 25 mmol/L Normal 21-31 [facility] Comment on above: Order Comment: evalu ate for Aspiration Performed By: #### 1 0070, 09007, 57414 ####[facility] [place] [address], [facility] Creatinine [Mass/Vol] 1.52 mg/dL High 0.70-1.30 [facility] Comment on above: Order Comment: evalu ate for Aspiration Performed By: #### 1 0, 03975, 65137 ####[facility] [place] [address], [facility] eGFR- 54 ml/min/1.73sq m Abnormal >60 [facility] Comment on above: Order Comment: evalu ate for Aspiration Result Comment: Calc ulation may not be valid for patients over 70 years Performed By: #### 1 0, 54122, 12668 ####[facility] [place] [address], [facility] eGFR- non- 45 ml/min/1.73sq m Abnormal >60 [facility] Comment on above: Order Comment: evalu ate for Aspiration Result Comment: Calc ulation may not be valid for patients over 70 years Performed By: #### 1 0, 33948, 38556 ####[facility] [place] [address], [facility] Glucose [Mass/Vol] 98 mg/dL Normal 70-100 [facility] Comment on above: Order Comment: evalu ate for Aspiration Performed By: #### 1 0070, 22060, 49623 ####[facility] [place] [address], [place] Potassium [Moles/Vol] 3.7 mmol/L Normal 3.5-5.1 [facility] Comment on above: Order Comment: evalu ate for Aspiration Performed By: #### 1 0070, 92926, 48843 ####[facility] [place] [address], [place] Sodium [Moles/Vol] 139 mmol/L Normal 136-145 [facility] Comment on above: Order Comment: evalu ate for Aspiration Performed By: #### 1 0070, 91714, 54208 ####[facility] Urea nitrogen [Mass/Vol] 25 mg/dL Normal 7-25 [facility] Comment on above: Order Comment: evalu ate for Aspiration Performed By: #### 1 0070, 78112, 96577 ####[facility] CALCIUM IONIZED CBGLon 02-04 IONIZED CALCIUM 1.11 mmol/L Low 1.13-1.32 [facility] Comment on above: Performed By: #### 3 0318 #### [facility] [address] CBC COMPLETE BLOOD COUNTon 0 02-04-2022 Erythrocyte distribution width (RBC) [Ratio] 14.4 % Normal 11.5-15.0 [facility] Comment on above: Order Comment: LEFT HIP SCREW HEAD TISSUE Performed By: #### 3 0338 #### [facility] [address] [place] [address], [facility] Hematocrit (Bld) [Volume fraction] 34.1 % Low 39.0-50.0 [facility] Comment on above: Order Comment: LEFT HIP SCREW HEAD TISSUE Performed By: #### 3 0338 #### [facility] [address] [place] [address], [facility] Hemoglobin (Bld) [Mass/Vol] 11.3 g/dL Low 13.0-17.0 [facility] Comment on above: Order Comment: LEFT HIP SCREW HEAD TISSUE Performed By: #### 3 0338 #### [facility] [address] [place] [address], [facility] MCH (RBC) [Entitic mass] 32.1 pg Normal 27.0-33.0 [facility] Comment on above: Order Comment: LEFT HIP SCREW HEAD TISSUE Performed By: #### 3 0338 #### [facility] [address] [place] [address], [facility] MCHC (RBC) [Mass/Vol] 33.1 g/dL Normal 32.0-35.0 [facility] Comment on above: Order Comment: LEFT HIP SCREW HEAD TISSUE Performed By: #### 3 0338 #### [facility] [address] [place] [address], [facility] MCV (RBC) [Entitic vol] 96.9 fL Normal 82.0-98.0 [facility] Comment on above: Order Comment: LEFT HIP SCREW HEAD TISSUE Performed By: #### 3 0338 #### [facility] [address] [place] [address], [facility] Nucleated RBC/100 WBC (Bld) [Ratio] 0 % Normal 0-0 [facility] Comment on above: Order Comment: LEFT HIP SCREW HEAD TISSUE Performed By: #### 3 0338 #### [facility] [address] [place] [address], [facility] PLAT CNT 213 10*3/uL Normal 150-400 [facility] Comment on above: Order Comment: LEFT HIP SCREW HEAD TISSUE Performed By: #### 3 0338 #### [facility] [address] [place] [address], [facility] RBC (Bld) [#/Vol] 3.52 10*6/uL Low 4.20-5.70 [facility] Comment on above: Order Comment: LEFT HIP SCREW HEAD TISSUE Performed By: #### 3 0338 #### [facility] [address] [place] [address], [facility] WBC (Bld) [#/Vol] 8.15 10*3/uL Normal 4.00-10.60 [facility] Comment on above: Order Comment: LEFT HIP SCREW HEAD TISSUE Performed By: #### 3 0338 #### [facility] [address] [place] [address], [facility] MAGNESIUM BLOODon 02-04-2022 Magnesium [Mass/Vol] 2.2 mg/dL Normal 1.9-2.7 [facility] Comment on above: Order Comment: evalu ate for Aspiration Performed By: #### 1 0070, 08524, 19506 ####[facility] [place] [address], [facility] PHOSPHORUS BLOODon 2 Phosphate [Mass/Vol] 3.0 mg/dL Normal 2.5-5.0 [facility] Comment on above: Order Comment: No: D o not add to previous draw Performed By: #### 1 0070, 34291, 35764 ####[facility] [place] [address], [facility] POC GLUCOSE LABon 02-04-2022 Glucose [Mass/Vol] 99 mg/dL Normal 70-100 [facility] Comment on above: Performed By: #### 8 5499 ####[facility] [facility].[address] POC SARS COV2 IDon 2 SARS-CoV-2 (COVID-19) RNA SHALA+probe Ql (Unsp spec) Negative Normal NEGATIVE [facility] Comment on above: Result Comment: ID N OW COVID-19 assay performed on the ID NOW Instrument is a rapid molecular in vitro diagnostic test utilizing an isothermal nucleic acid amplification technology intended for the qualitative detection of nucleic acid from the SARS-CoV-2 virus in direct anterior nasal (nasal), nasopharyngeal or throat swabs from individuals who are suspected of COVID-19 by their healthcare provider within the first seven days of the onset of symptoms. Testing is limited to laboratories certified under the Clinical Laboratory Improvement Amendments of 1988 (CLIA), 42 U.S.C. ???263a,that meet the requirements to perform high, moderate, or waived complexity tests. The ID NOW COVID-19 assay is also authorized for use at the Point of Care (POC), i.e., in patient care settings operating under a CLIA Certificate of Waiver, Certificate of Compliance, or Certificate of Accreditation. Performed By: #### 3 1921 #### [place] [address], [facility] PORTABLE HIP LEFT 1 OR 2 VWS WITH PELVISon 02-04-2022 PORTABLE HIP LEFT 1 OR 2 VWS WITH PELVIS [facility] Department of Radiology [address] [place] [id number] Patient Name: NIELS MCCULLOUGH : 1945 Sex: M Age: Race: White Pt. Location: [id number] Patient Status: I Ordered Date: 02/04/2022 8:00:00 PM Completed Date: 02/04/2022 09:21 PM Requesting Provider: PAULINO BRITTON Attending Provider: MICHAEL MALONE Report Copy To: Signs & Symptoms: Post OP History: Comments: Hardware Evaluation, in PACU Exam: PORTABLE HIP LEFT 1 OR 2 VWS WITH PELVIS PORTABLE HIP LEFT 1 OR 2 VWS WITH PELVIS 02/04/2022 9:21 PM CLINICAL INDICATIONS: Post OP TECHNOLOGIST COMMENTS: Hardware Evaluation, post op left hip. QUESTION FOR THE RADIOLOGIST: Hardware Evaluation, in PACU PROTOCOL: AP(PA) and Lateral views were obtained. 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 Transcribed by: [email or web address], User Resident: Electronically Signed by: NOHEMI GRAVES @ 02/04/2022 09:32 PM Normal [facility] Comment on above: Order Comment: evalu ate for Aspiration POTASSIUM WHOLE BLOOD CBGLon 02-04-2022 Potassium [Moles/Vol] 3.5 mmol/L Normal 3.4-5.2 [facility] Comment on above: Performed By: #### 3 0318 #### [facility] [address] PROTHROMBIN TIMEon INR Coag (PPP) [Relative time] 1.70 {INR} High 0.91-1.16 [facility] Comment on above: Order Comment: No: D o not add to previous draw Result Comment: ACCC P RECOMMENDED INR FOR WARFARIN THERAPY --------- ------- CONDITION INR PROPHYLAXIS OF VENOUS THROMBOSIS 2-3 (HIGH-RISK SURGERY) TREATMENT OF VENOUS THROMBOSIS 2-3 TREATMENT OF PULMONARY EMBOLISM 2-3 PREVENTION OF SYSTEMIC EMBOLISM: 2-3 ACUTE MYOCARDIAL INFARCTION TISSUE HEART VALVES VALVULAR HEART DISEASE ATRIAL FIBRILLATION RECURRENT SYSTEMIC EMBOLISM MECHANICAL HEART VALVE 2.5-3.5 FROM: ORAL ANTICOAGULANTS. MECHANISM OF ACTION, CLINICAL EFFECTIVENESS, AND OPTIMAL THERAPEUTIC RANGE. CHEST 1995;108:231S-246S. Performed By: #### 5 7307, [id number] ####[facility] [facility] [address], [facility] PT Coag (PPP) [Time] 20.0 s High 12.3-14.8 [facility] Comment on above: Order Comment: No: D o not add to previous draw Result Comment: ALL RESULTS MUST BE INTERPRETED WITH RESPECT TO BLOOD DRAWING ARTIFACT OR DILUTION ERROR OF ANTICOAGULANT AT THE TIME OF SAMPLING. Performed By: #### 5 7307, [id number] ####[facility] [facility] [place] [address], [facility] INR Coag (PPP) [Relative time] 2.90 {INR} High 0.91-1.16 [facility] Comment on above: Order Comment: 12 ho urs post vitamin K administration/pre-procedure warfarin reversalNo: Do not add to previous draw Result Comment: ACCC P RECOMMENDED INR FOR WARFARIN THERAPY --------- ------- CONDITION INR PROPHYLAXIS OF VENOUS THROMBOSIS 2-3 (HIGH-RISK SURGERY) TREATMENT OF VENOUS THROMBOSIS 2-3 TREATMENT OF PULMONARY EMBOLISM 2-3 PREVENTION OF SYSTEMIC EMBOLISM: 2-3 ACUTE MYOCARDIAL INFARCTION TISSUE HEART VALVES VALVULAR HEART DISEASE ATRIAL FIBRILLATION RECURRENT SYSTEMIC EMBOLISM MECHANICAL HEART VALVE 2.5-3.5 FROM: ORAL ANTICOAGULANTS. MECHANISM OF ACTION, CLINICAL EFFECTIVENESS, AND OPTIMAL THERAPEUTIC RANGE. CHEST 1995;108:231S-246S. Performed By: #### 5 6101 ####[place] [address] [facility] [address], [facility] PT Coag (PPP) [Time] 30.1 s High 12.3-14.8 [facility] Comment on above: Order Comment: 12 ho urs post vitamin K administration/pre-procedure warfarin reversalNo: Do not add to previous draw Result Comment: ALL RESULTS MUST BE INTERPRETED WITH RESPECT TO BLOOD DRAWING ARTIFACT OR DILUTION ERROR OF ANTICOAGULANT AT THE TIME OF SAMPLING. Performed By: #### 5 6101 ####[facility] [facility] [place] [address], [facility] RBC'S 1 UNITon 02-04-2022 CROSSMATCH INTERP 1 COMP Normal [facility] Comment on above: Performed By: #### 8 6001 ####[facility] [facility] [place] [address], [facility] PRODUCT CODE 1 E0336 Normal [facility] Comment on above: Performed By: #### 8 6001 ####[facility] [facility] [place] [address], [facility] PRODUCT STATUS 1 RE Normal [facility] Comment on above: Result Comment: Resu lt changed by IF on 02/08/2022 07:21. The previous value was XM. Performed By: #### 8 6001 ####[facility] [facility] [place] [address], [facility] UNIT ABO 1 O Normal [facility] Comment on above: Performed By: #### 8 6001 ####[facility] [facility] [place] [address], [facility] UNIT ID 1 [id number] Normal [facility] Comment on above: Performed By: #### 8 6001 ####[facility] [place] [address], [facility] UNIT RH 1 Negative Normal [facility] Comment on above: Performed By: #### 8 6001 ####[facility] [place] [address], [facility] SODIUM WHOLE BLOOD CBGLon Sodium [Moles/Vol] 136.0 mmol/L Normal 136.0-146 . 0 [facility] Comment on above: Performed By: #### 3 0318 #### [facility] [address] [facility] [address], [facility] TYPE AND SCREENon 02-04-2022 ABO INTERPRETATION O Normal [facility] Comment on above: Performed By: #### 3 0318 #### [facility] [address] [place] [address], [facility] RH INTERPRETATION Negative Normal [facility] Comment on above: Performed By: #### 3 0318 #### [facility] [address] [facility]. [address] APTTon 02-03-2022 aPTT Coag (Bld) [Time] 64.0 s High 25.0-35.0 Th e [facility] Comment on above: Result Comment: ALL RESULTS MUST BE INTERPRETED WITH RESPECT TO BLOOD DRAWING ARTIFACT OR DILUTION ERROR OF ANTICOAGULANT AT THE TIME OF SAMPLING. THE APTT SHOULD NOT BE USED TO MONITOR UNFRACTIONATED HEPARIN THERAPY, THIS LABORATORY NO LONGER HAS AN ESTABLISHED THERAPEUTIC RANGE BASED ON THE APTT. IT IS RECOMMENDED THAT THE [facility] - HEPARIN ASSAY (ANTI-XA ACTIVITY) BE USED FOR THIS PURPOSE. Performed By: #### 5 6101, [id number] ####[facility] CBC W/DIFFon 02-03-2022 ABS IMM GRANS 0.0 10*3/uL Normal 0.0-0.2 [facility] Comment on above: Performed By: #### 3 0338 #### [facility] [address] [facility] [address], [facility] ABS NEUTROPHILS 5.8 10*3/uL Normal 1.6-7.6 [facility] Comment on above: Performed By: #### 3 0338 #### [facility] [address] [place] [address], [facility] Basophils (Bld) [#/Vol] 0.0 10*3/uL Normal 0.0-0.2 [facility] Comment on above: Performed By: #### 3 0338 #### [facility] [address] [place] [address], [facility] Basophils/100 WBC (Bld) 0.5 % Normal 0.0-1.0 [facility] Comment on above: Performed By: #### 3 0338 #### [facility] [address] [place] [address], [facility] Eosinophils (Bld) [#/Vol] 0.2 10*3/uL Normal 0.0-0.5 [facility] Comment on above: Performed By: #### 3 0338 #### [facility] [address] [place] [address], [facility] Eosinophils/100 WBC (Bld) 2.1 % Normal 0.0-6.0 [facility] Comment on above: Performed By: #### 3 0338 #### [facility] [address] [facility] Erythrocyte distribution width (RBC) [Ratio] 14.2 % Normal 11.5-15.0 [facility] Comment on above: Performed By: #### 3 0338 #### [facility] [address] [place] [address], [facility] Hematocrit (Bld) [Volume fraction] 33.2 % Low 39.0-50.0 [facility] Comment on above: Performed By: #### 3 0338 #### [facility] [address] [place] [address], [facility] Hemoglobin (Bld) [Mass/Vol] 11.3 g/dL Low 13.0-17.0 [facility] Comment on above: Performed By: #### 3 0338 #### [facility] [address] [place] [address], [facility] IMMATURE GRANS 0.4 % Normal 0.0-1.0 [facility] Comment on above: Performed By: #### 3 0338 #### [facility] [address] [facility] [address] Lymphocytes (Bld) [#/Vol] 1.0 10*3/uL Low 1.2-4.0 [facility] Comment on above: Performed By: #### 3 0338 #### [facility] [address] [facility] [place] [address], [facility] Lymphocytes/100 WBC (Bld) 12.6 % Low 20.0-45.0 [facility] Comment on above: Performed By: #### 3 0338 #### [facility] [address] MCH (RBC) [Entitic mass] 32.2 pg Normal 27.0-33.0 [facility] Comment on above: Performed By: #### 3 0338 #### [facility] [address] [facility]. [address] MCHC (RBC) [Mass/Vol] 34.0 g/dL Normal 32.0-35.0 [facility] Comment on above: Performed By: #### 3 0338 #### [facility] [address] [place] [address], [facility] MCV (RBC) [Entitic vol] 94.6 fL Normal 82.0-98.0 [facility] Comment on above: Performed By: #### 3 0338 #### [facility] [address] [facility] [address], [facility] Monocytes (Bld) [#/Vol] 0.7 10*3/uL Normal 0.1-1.0 [facility] Comment on above: Performed By: #### 3 0338 #### [facility] [address] [place] [address], [facility] MONOS 9.2 % Normal 5.0-12.0 [facility] Comment on above: Performed By: #### 3 0338 #### [facility] [address] Neutrophils/100 WBC (Bld) 75.2 % High 40.0-72.0 [facility] Comment on above: Performed By: #### 3 0338 #### [facility] [address] [facility]. [address] Nucleated RBC/100 WBC (Bld) [Ratio] 0 % Normal 0-0 [facility] Comment on above: Performed By: #### 3 0338 #### [facility] [address] PLAT CNT 190 10*3/uL Normal 150-400 [facility] Comment on above: Performed By: #### 3 0338 #### [facility] [address] RBC (Bld) [#/Vol] 3.51 10*6/uL Low 4.20-5.70 [facility] Comment on above: Performed By: #### 3 0338 #### [facility] [address] WBC (Bld) [#/Vol] 7.75 10*3/uL Normal 4.00-10.60 [facility] Comment on above: Performed By: #### 3 0338 #### [facility] [address] COMP METABOLIC PANELon 02-03 Albumin [Mass/Vol] 3.7 g/dL Normal 3.5-5.7 [facility] Comment on above: Performed By: #### 3 0318 #### [facility] [address] ALKALINE PHOSPH 89 IU/L Normal 34-104 [facility] Comment on above: Performed By: #### 3 0318 #### [facility] [address] [place] [address], [facility] ALT [Catalytic activity/Vol] 10 U/L Normal 7-52 [facility] Comment on above: Performed By: #### 3 0318 #### [facility] [address] [place] [address], [place] AST [Catalytic activity/Vol] 16 U/L Normal 13-39 [facility] Comment on above: Performed By: #### 3 0318 #### [facility] [address] [place] [address], [place] Bilirubin [Mass/Vol] 0.6 mg/dL Normal 0.3-1.0 [facility] Comment on above: Performed By: #### 3 0318 #### [facility] [address] [place] [address], [place] Calcium [Mass/Vol] 8.6 mg/dL Normal 8.6-10.3 [facility] Comment on above: Performed By: #### 3 0318 #### [facility] [address] [place] [address], [facility] Chloride [Moles/Vol] 103 mmol/L Normal 98-107 [facility] Comment on above: Performed By: #### 3 0318 #### [facility] [address] [place] [address], [place] CO2 [Moles/Vol] 27 mmol/L Normal 21-31 [facility] Comment on above: Performed By: #### 3 0318 #### [facility] [address] [place] [address], [place] Creatinine [Mass/Vol] 1.62 mg/dL High 0.70-1.30 [facility] Comment on above: Performed By: #### 3 0318 #### [facility] [address] [place] [address], [place] eGFR- 51 ml/min/1.73sq m Abnormal >60 [facility] Comment on above: Result Comment: Calc ulation may not be valid for patients over 70 years Performed By: #### 3 0318 #### [facility] [address] [place] [address], [facility] eGFR- non- 42 ml/min/1.73sq m Abnormal >60 [facility] Comment on above: Result Comment: Calc ulation may not be valid for patients over 70 years Performed By: #### 3 0318 #### [facility] [address] [place] [address], [place] Glucose [Mass/Vol] 90 mg/dL Normal 70-100 [facility] Comment on above: Performed By: #### 3 0318 #### [facility] [address] [place] [address], [place] Potassium [Moles/Vol] 3.5 mmol/L Normal 3.5-5.1 [facility] Comment on above: Performed By: #### 3 0318 #### [facility] [address] [place] [address], [place] Protein [Mass/Vol] 6.6 g/dL Normal 6.0-8.3 [facility] Comment on above: Performed By: #### 3 0318 #### [facility] [address] [place] [address], [place] Sodium [Moles/Vol] 138 mmol/L Normal 136-145 [facility] Comment on above: Performed By: #### 3 0318 #### [facility] [address] [place] [address], [place] Urea nitrogen [Mass/Vol] 23 mg/dL Normal 7-25 [facility] Comment on above: Performed By: #### 3 0318 #### [facility] [address] [place] [address], [place] POC SARS COV2 ANTIGEN NEGATI VEon 02-03-2022 POC SARS COV2 ANTIGEN NEG Negative Normal NEGATIVE [facility] Comment on above: Result Comment: Nega tive results should be treated as presumptive and confirmation with a molecular assay, if necessary, for patient management, may be performed. Negative results do not rule out SARS-CoV-2 infection and not should be used as the sole basis for treatment or patient management decisions, including infection control decisions. Negative results should be considered in the context of a patient's recent exposures, history, and the presence of clinical signs and symptoms consistent with COVID-19. The Clarity COVID-19 Antigen Rapid Test Cassette is a rapid chromatographic immunoassay intended for the qualitative detection of the nucleocapsid protein antigen from SARS-CoV-2 in direct nasopharyngeal swab (PANEL CUTTER) specimens from individuals who are suspected of COVID-19 by their healthcare provider within the first six days of symptom onset. Testing is limited to laboratories certified under the Clinical Laboratory Improvement Amendments of 1988 (CLIA), 42 U.S.C. ???263a, that meet the requirements to perform moderate complexity, high complexity, or waived tests. This test is authorized for use at the Point of Care (POC), i.e., in patient care settings operating under a CLIA Certificate of Waiver, Certificate of Compliance, or Certificate of Accreditation. Performed By: #### 3 2044 #### [address] PORTABLE CHEST 1 VIEWon 04- PORTABLE CHEST 1 VIEW [facility] Department of Radiology [address] [place] [id number] Patient Name: NIELS MCCULLOUGH : 1945 Sex: M Age: Race: White Pt. Location: [facility] Patient Status: E Ordered Date: 02/03/2022 8:05:00 AM Completed Date: 02/03/2022 08:31 AM Requesting Provider: TOMY BARLOW Attending Provider: CLIFF ALEX Report Copy To: Signs & Symptoms: Hypertension History: Comments: evaluate for Aspiration Exam: PORTABLE CHEST 1 VIEW PORTABLE CHEST 1 VIEW 02/03/2022 8:31 AM CLINICAL INDICATIONS: Hypertension TECHNOLOGIST COMMENTS: Hypertension QUESTION FOR THE RADIOLOGIST: evaluate for Aspiration PROTOCOL: AP(PA) view was obtained. COMPARISON: None FINDINGS: The trachea is midline. The heart is mildly prominent. There is interstitial prominence and perihilar vascular prominence with subtle bibasilar hazy airspace opacities. These findings are suggestive of congestive heart failure. The bony thorax is grossly intact. IMPRESSION: The heart is mildly prominent. There is interstitial prominence and perihilar vascular prominence with subtle bibasilar hazy airspace opacities. These findings are suggestive of congestive heart failure. Electronically signed: Isidro Nieto. Transcribed by: [email or web address], User Resident: Electronically Signed by: ISIDRO NIETO @ 02/03/2022 08:48 AM Normal [facility] Comment on above: Order Comment: evalu ate for Aspiration PROTHROMBIN TIMEon 2 INR Coag (PPP) [Relative time] 3.58 {INR} High 0.91-1.16 [facility] Comment on above: Order Comment: No: D o not add to previous draw Result Comment: ACCC P RECOMMENDED INR FOR WARFARIN THERAPY --------- ------- CONDITION INR PROPHYLAXIS OF VENOUS THROMBOSIS 2-3 (HIGH-RISK SURGERY) TREATMENT OF VENOUS THROMBOSIS 2-3 TREATMENT OF PULMONARY EMBOLISM 2-3 PREVENTION OF SYSTEMIC EMBOLISM: 2-3 ACUTE MYOCARDIAL INFARCTION TISSUE HEART VALVES VALVULAR HEART DISEASE ATRIAL FIBRILLATION RECURRENT SYSTEMIC EMBOLISM MECHANICAL HEART VALVE 2.5-3.5 FROM: ORAL ANTICOAGULANTS. MECHANISM OF ACTION, CLINICAL EFFECTIVENESS, AND OPTIMAL THERAPEUTIC RANGE. CHEST 1995;108:231S-246S. Performed By: #### 5 6101 ####[facility] PT Coag (PPP) [Time] 35.4 s High 12.3-14.8 [facility] Comment on above: Order Comment: No: D o not add to previous draw Result Comment: ALL RESULTS MUST BE INTERPRETED WITH RESPECT TO BLOOD DRAWING ARTIFACT OR DILUTION ERROR OF ANTICOAGULANT AT THE TIME OF SAMPLING. Performed By: #### 5 6101 ####[facility] INR Coag (PPP) [Relative time] 3.62 {INR} High 0.91-1.16 [facility] Comment on above: Result Comment: ACCC P RECOMMENDED INR FOR WARFARIN THERAPY --------- ------- CONDITION INR PROPHYLAXIS OF VENOUS THROMBOSIS 2-3 (HIGH-RISK SURGERY) TREATMENT OF VENOUS THROMBOSIS 2-3 TREATMENT OF PULMONARY EMBOLISM 2-3 PREVENTION OF SYSTEMIC EMBOLISM: 2-3 ACUTE MYOCARDIAL INFARCTION TISSUE HEART VALVES VALVULAR HEART DISEASE ATRIAL FIBRILLATION RECURRENT SYSTEMIC EMBOLISM MECHANICAL HEART VALVE 2.5-3.5 FROM: ORAL ANTICOAGULANTS. MECHANISM OF ACTION, CLINICAL EFFECTIVENESS, AND OPTIMAL THERAPEUTIC RANGE. CHEST 1995;108:231S-246S. Performed By: #### 3 0338 #### [facility] [address] [place] [address], [facility] PT Coag (PPP) [Time] 35.8 s High 12.3-14.8 [facility] Comment on above: Result Comment: ALL RESULTS MUST BE INTERPRETED WITH RESPECT TO BLOOD DRAWING ARTIFACT OR DILUTION ERROR OF ANTICOAGULANT AT THE TIME OF SAMPLING. Performed By: #### 3 0338 #### [facility] [address] [place] [id number], [facility] RBC'S 2 UNITSon 02-03-2022 CROSSMATCH INTERP 1 COMP Normal [facility] Comment on above: Performed By: #### 8 6002 ####[facility] [place] [address], [facility] CROSSMATCH INTERP 2 COMP Normal [facility] Comment on above: Performed By: #### 8 6002 ####[facility] [facility] PRODUCT CODE 1 E0336 Normal [facility] Comment on above: Performed By: #### 8 6002 ####[facility] [place] [address], [facility] PRODUCT CODE 2 E0336 Normal [facility] Comment on above: Performed By: #### 8 6002 ####[facility] [facility] [place] [address], [facility] PRODUCT STATUS 1 RE Normal [facility] Comment on above: Result Comment: Resu lt changed by IF on 02/04/2022 19:14. The previous value was XM. Result changed by IF on 02/04/2022 20:42. The previous value was IS. Result changed by IF on 02/08/2022 07:21. The previous value was XM. Performed By: #### 8 6002 ####[facility] PRODUCT STATUS 2 RE Normal [facility] Comment on above: Result Comment: Resu lt changed by IF on 02/04/2022 19:16. The previous value was XM. Performed By: #### 8 6002 ####[facility] [facility], [place] [id number] [place] [address] UNIT ABO 1 O Normal [facility] Comment on above: Performed By: #### 8 6002 ####[facility] [facility], [place] [address] [place] [address] UNIT ABO 2 O Normal [facility] Comment on above: Performed By: #### 8 6002 ####[facility] [facility].[address] UNIT ID 1 [id number] Normal [facility] Comment on above: Performed By: #### 8 6002 ####[facility] [facility].[address] UNIT ID 2 [id number] Normal [facility] Comment on above: Performed By: #### 8 6002 ####[facility] [facility].[address] UNIT RH 1 Negative Normal [facility] Comment on above: Performed By: #### 8 6002 ####[facility] [facility], [place] [address] [place] [address] UNIT RH 2 Negative Normal [facility] Comment on above: Performed By: #### 8 6002 ####[facility] [facility].[address] UA w/Reflex Cultureon 2017 Acetoacetic Acid,Ur Negative Normal NEG [facility] Comment on above: Performed By: #### U AX, UMICAO ####[facility] [place] [address] Bilirubin, SemiQt,Ur Negative Normal NEG [facility] Comment on above: Performed By: #### U AX, UMICAO ####[facility] [place] [address] Color YELLOW Normal YEL [facility] Comment on above: Performed By: #### U AX, UMICAO ####[address] [address] Glucose,Semi-qnt,Ur Negative Normal NEG [facility] Comment on above: Performed By: #### U AX, UMICAO ####[address] [address] Hemoglobin, Ur Negative Normal NEG [facility] Comment on above: Performed By: #### U AX, UMICAO ####[address] [place] [address] Leuckocyte Esterase Negative Normal NEG [facility] Comment on above: Performed By: #### U AX, UMICAO ####[address] [address] Nitrite,Ur Negative Normal NEG [facility] Comment on above: Performed By: #### U AX, UMICAO ####[address] [address] PH,Ur 7.0 Normal 5.0-8.0 [facility] Comment on above: Performed By: #### U AX, UMICAO ####[address] [address] Protein, Semi-qnt,Ur Negative Normal NEG [facility] Comment on above: Performed By: #### U AX, UMICAO ####[address] [address] Spec. [place],Ur 1.005 Normal 1.000-1.03 0 [facility] Comment on above: Performed By: #### ALYSSIA BRADFORD ####[address] [address] Turbidity CLOUDY Abnormal CLEAR [facility] Comment on above: Performed By: #### U ALYSSIA ALBRECHT ####[address] [address] Urobilinogen,Ur Normal Normal NORM [facility] Comment on above: Performed By: #### ALYSSIA BRADFORD ####[address] [address] Comment NOT REPORTED Normal [facility] Comment on above: Performed By: #### ALYSSIA BRADFORD ####[address] [address] Urinalysis,Microon [phone] ----- Normal [facility] Comment on above: Performed By: #### ALYSSIA BRADFORD ####[address] [address] Bacteria FEW Abnormal NONE [facility] Comment on above: Performed By: #### U ALYSSIA ALBRECHT ####[address] [address] Epithelial cells 0 TO 2 Normal [facility] Comment on above: Performed By: #### U AXALYSSIA ####[address] [address] RBC Test strip #/vol (U) 0 TO 2 Normal [facility] Comment on above: Performed By: #### U ALYSSIA ALBRECHT ####[address] [address] Urine WBC's 0 TO 2 Normal [facility] Comment on above: Performed By: #### U AX, UMICAO ####[facility] [place] [address] Amorphous Sediment NOT REPORTED Normal NONE [facility] Comment on above: Performed By: #### U AX, UMICAO ####[facility] [place] [address] Casts NOT REPORTED Normal [facility] Comment on above: Performed By: #### U AX, UMICAO ####[address] [address] Crystals NOT REPORTED Normal NONE [facility] Comment on above: Performed By: #### U AX, UMICAO ####[address] [address] Epithelial, Renal NOT REPORTED Normal 0 [facility] Comment on above: Performed By: #### U AX, UMICAO ####[address] [address] Mucus Strands NOT REPORTED Normal NONE [facility] Comment on above: Performed By: #### U AX, UMICAO ####[address] [place] [address] Other Observations NOT REPORTED Normal NREQ [facility] Comment on above: Performed By: #### U AX, UMICAO ####[address] [address] Trichomonas NOT REPORTED Normal NONE [facility] Comment on above: Performed By: #### U AX, UMICAO ####[address] [place] [address] Yeast NOT REPORTED Normal NONE [facility] Comment on above: Performed By: #### U AX, DICKO ####[facility] [place] [address] Acetaminophenon 08-16-2018 Acetaminophen mass conc <5 Low 10-30 [facility] Comment on above: Performed By: #### T ABA HERNADEZ, BMP ####[address] [place] [address] CBC with Diffon 08-16-2018 Abs. Basophil 0.03 k/uL Normal 0.00-0.20 [facility] Comment on above: Performed By: #### T ABA HERNADEZ, BMP ####[address] [place] [address] Abs.Imm.Granulocyte <0.03 Normal 0.00-0.30 [facility] Comment on above: Performed By: #### T ABA HERNADEZ, BMP ####[address] [place] [address] Abs.Neutrophil (Seg) 3.19 k/uL Normal 1.50-8.[address] [facility] Comment on above: Performed By: #### T ABA HERNADEZ, BMP ####[address] [place] [address] Basophils/100 WBC Auto (Bld) 1 % Normal 0-2 [facility] Comment on above: Performed By: #### T ABA HERNADEZ, BMP ####[address] [place] [address] Eosinophils Auto #/vol (Bld) 0.17 10*3/uL Normal 0.00-0.44 [facility] Comment on above: Performed By: #### T ABA HERNADEZ, BMP ####[address] [place] [address] Eosinophils/100 WBC Auto (Bld) 3 % Normal 1-4 [facility] Comment on above: Performed By: #### T ABA HERNADEZ, BMP ####[address] , [place] [address] Erythrocyte distribution width Auto Ratio (RBC) 12.6 % Normal 11.8-14.4 [facility] Comment on above: Performed By: #### T ABA HERNADEZ, BMP ####[address] , [facility] Hematocrit Auto Volume Fraction (Bld) 39.4 % Low 40.7-50.3 [facility] Comment on above: Performed By: #### T ABA HERNADEZ, BMP ####[address] [place] [address] Hemoglobin mass conc (Bld) 13.5 g/dL Normal 13.0-17.0 [facility] Comment on above: Performed By: #### T ABA HERNADEZ, BMP ####[address] , [place] [address] Immature granulocytes #/vol (Bld) 0 % Normal 0 [facility] Comment on above: Performed By: #### T ABA HERNADEZ, BMP ####[address] , [facility] Lymphocytes Auto #/vol (Bld) 1.54 10*3/uL Normal 1.10-3.70 [facility] Comment on above: Performed By: #### T ABA HERNADEZ, BMP ####[address] , [place] [address] Lymphocytes/100 WBC Auto (Bld) 28 % Normal 24-43 [facility] Comment on above: Performed By: #### T ABA HERNADEZ, BMP ####[address] [place] [address] MCH Auto Entitic mass (RBC) 33.4 pg Normal 25.2-33.5 [facility] Comment on above: Performed By: #### T ABA HERNADEZ, BMP ####[address] , [facility] MCHC Auto mass conc (RBC) 34.3 g/dL Normal 28.4-34.8 [facility] Comment on above: Performed By: #### T SH, CDP, BMP ####[address] , [facility] MCV Auto Entitic volume (RBC) 97.5 fL Normal 82.6-102.9 [facility] Comment on above: Performed By: #### T SH, CDP, BMP ####[address] [place] [address] Monocytes Auto #/vol (Bld) 0.66 10*3/uL Normal 0.10-1.20 [facility] Comment on above: Performed By: #### T SH, CDP, BMP ####[address] , [place] [address] Monocytes/100 WBC Auto (Bld) 12 % Normal 3-12 [facility] Comment on above: Performed By: #### T SH, CDP, BMP ####[address] [place] [address] Neutrophil (Seg) 56 % Normal 36-65 [facility] Comment on above: Performed By: #### T SH, CDP, BMP ####[address] [place] [address] NRBC Automated 0.0 per 100 WBC Normal 0.0 [facility] Comment on above: Performed By: #### T SH, CDP, BMP ####[address] [place] [id number] Platelet mean volume Auto Entitic volume (Bld) 8.7 fL Normal 8.1-13.5 [facility] Comment on above: Performed By: #### T SH, CDP, BMP ####[address] [place] [address] Platelets Auto #/vol (Bld) 163 10*3/uL Normal 138-453 [facility] Comment on above: Performed By: #### T ABA HERNADEZ, BMP ####[address] [place] [address] RBC Auto #/vol (Bld) 4.04 10*6/uL Low 4.21-5.77 [facility] Comment on above: Performed By: #### T ABA HERNADEZ, BMP ####[address] [place] [address] WBC Auto #/vol (Bld) 5.6 10*3/uL Normal 3.5-11.3 [facility] Comment on above: Performed By: #### T ABA HERNADEZ, BMP ####[address] [place] [address] Auto Diff Performed NOT REPORTED Normal [facility] Comment on above: Performed By: #### T ABA HERNADEZ, BMP ####[address] [place] [address] Platelets Auto #/vol (Bld) NOT REPORTED Normal [facility] Comment on above: Performed By: #### T ABA HERNADEZ, BMP ####[address] [place] [address] RBC morphology finding Nom (Bld) NOT REPORTED Normal [facility] Comment on above: Performed By: #### T ABA HERNADEZ, BMP ####[address] [place] [address] WBC Morphology NOT REPORTED Normal [facility] Comment on above: Performed By: #### T ABA HERNADEZ, BMP ####[address] [place] [address] Comp Metabolic Profon 2017 (cont.) Normal [facility] Comment on above: Result Comment: Aver age GFR for 70 or more years old: 75 mL/min/1.73sq mChronic Kidney Disease: <60 mL/min/1.73sq mKidney failure: <15 mL/min/1.73sq meGFR calculated using average adult body mass. Additional eGFR calculator available at:http://www.Bday/multiple_crcl_2012.htm Performed By: #### T ABA HERNADEZ, BMP ####[address] [place] [address] Albumin mass conc 4.0 g/dL Normal 3.5-5.2 [facility] Comment on above: Performed By: #### T ABA HERNADEZ, BMP ####[address] [place] [address] Albumin/Globulin mass ratio 1.7 {ratio} Normal 1.0-2.5 [facility] Comment on above: Performed By: #### T ABA HERNADEZ, BMP ####[address] [place] [id number] Alkaline Phos 71 U/L Normal 40-129 [facility] Comment on above: Performed By: #### T ABA HERNADEZ, BMP ####[address] [place] [address] ALT enzyme act/vol 10 U/L Normal 5-41 [facility] Comment on above: Performed By: #### T ABA HERNADEZ, BMP ####[address] , [facility]83 Anion gap 3 molar conc 10 mmol/L Normal 9-17 [facility] Comment on above: Performed By: #### T ABA HERNADEZ, BMP ####[address] [place] [address] AST enzyme act/vol 14 U/L Normal <40 [facility] Comment on above: Performed By: #### T ABA HERNADEZ, BMP ####[address] [place] [id number] Bilirubin Ql (U) 0.57 mg/dL Normal 0.3-1.2 [facility] Comment on above: Performed By: #### T MARICARMEN CDP, BMP ####[address] [place] [address] BUN/CRE Ratio 9 Normal 9-20 [facility] Comment on above: Performed By: #### T SH, CDP, BMP ####[address] [place] [address] Calcium mass conc 8.9 mg/dL Normal 8.6-10.4 [facility] Comment on above: Performed By: #### T ABA HERNADEZ, BMP ####[address] [place] [address] Chloride molar conc 95 mmol/L Low 98-107 [facility] Comment on above: Performed By: #### T ABA HERNADEZ, BMP ####[address] [place] [address] CO2 molar conc 29 mmol/L Normal 20-31 [facility] Comment on above: Performed By: #### T ABA HERNADEZ, BMP ####[address] [place] [address] Creatinine mass conc 1.42 mg/dL High 0.70-1.[address] [facility] Comment on above: Performed By: #### T MARICARMEN CDP, BMP ####[address] [place] [address] GFR, Amer 60 mL/min Low >60 [facility] Comment on above: Performed By: #### T MARICARMEN CDP, BMP ####[address] [place] [address] GFR,non Amer 49 mL/min Low >[address] [facility] Comment on above: Performed By: #### T SH, CDP, BMP ####[address] [place] [address] Glucose mass conc 111 mg/dL High 70-99 [facility] Comment on above: Performed By: #### T AAB HERNADEZ, BMP ####[address] [place] [address] Potassium molar conc 4.0 mmol/L Normal 3.7-5.[address] [facility] Comment on above: Performed By: #### T ABA HERNADEZ, BMP ####[address] [place] [address] Protein mass conc 6.4 g/dL Normal 6.4-8.3 [facility] Comment on above: Performed By: #### T ABA HERNADEZ, BMP ####[address] [place] [address] Sodium molar conc 134 mmol/L Low 135-144 [facility] Comment on above: Performed By: #### T ABA HERNADEZ, BMP ####[address] [place] [address] Staging: Normal [facility] Comment on above: Result Comment: Stag e 1: Some kidney damage normal GFRStage 2: Mild kidney damage GFR 60-89Stage 3: Moderate kidney damage GFR 30-59Stage 4: Severe kidney damage GFR 15-29Stage 5: Severe kidney damage GFR <15ESRD - chronic treatment by dialysis or transplant Performed By: #### T ABA HERNADEZ, BMP ####[address] [place] [address] Urea nitrogen mass conc 13 mg/dL Normal 8-23 [facility] Comment on above: Performed By: #### T ABA HERNADEZ, BMP ####[address] [place] [address] Drug Scr, Abuse, Uron 2017 Amphetamine(s),Ur Negative Normal NEG [facility] Comment on above: Performed By: #### T ABA HERNADEZ, BMP ####[address] [place] [address] Barbiturate(s),Ur Negative Normal NEG [facility] Comment on above: Performed By: #### T SH, CDP, BMP ####[address] [place] [address] Base excess Calculated molar conc (Bld) Negative Normal NEG [facility] Comment on above: Performed By: #### T SH, CDP, BMP ####[address] [place] [address] Benzodiazepine(s) Positive Abnormal NEG [facility] Comment on above: Performed By: #### T SH, CDP, BMP ####[facility] [address] [place] [address] Buprenorphrine, Ur Negative Normal NEG [facility] Comment on above: Performed By: #### T SH, CDP, BMP ####[facility] [address] , [facility]83 Cannabinoid(s),Ur Negative Normal NEG [facility] Comment on above: Performed By: #### T SH, CDP, BMP ####[facility] [address] [place] [address] Methadone Ql (U) Negative Normal NEG [facility] Comment on above: Performed By: #### T SH, CDP, BMP ####[facility] [address] , [facility] Methamphetamine, Ur Negative Normal NEG [facility] Comment on above: Performed By: #### T SH, CDP, BMP ####[facility] [address] [place] [address] Opiate(s), Ur Negative Normal NEG [facility] Comment on above: Performed By: #### T SH, CDP, BMP ####[address] [place] [address] Oxycodone, Urine Negative Normal NEG [facility] Comment on above: Performed By: #### T SH, CDP, BMP ####[address] [place] [address] Phencyclidine, Ur Negative Normal NEG [facility] Comment on above: Performed By: #### T ABA HERNADEZ, BMP ####[address] [place] [address] Propoxyphene,Urine Negative Normal NEG [facility] Comment on above: Performed By: #### T ABA HERNADEZ, BMP ####[address] [place] [address] Tricyclic antidepressants Screen Ql (U) Negative Normal NEG [facility] Comment on above: Result Comment: Drug screen results are to be used for medical purposes only. All positive results are unconfirmed. Testing for employment or legal uses should be sent to a reference laboratory for confirmation. Performed By: #### T ABA HERNADEZ, BMP ####[address] [place] [address] Interpretive Info NOT REPORTED Normal [facility] Comment on above: Performed By: #### T ABA HERNADEZ, BMP ####[address] [place] [address] MDMA, Urine NOT REPORTED Normal NEG [facility] Comment on above: Performed By: #### T ABA HERNADEZ, BMP ####[address] [place] [address] ED Noteon 08-16-2018 HIM IP Note OR Arcade Attendant Normal [facility] HIM IP Note OR Arcade Attendant Normal [facility] HIM IP Note OR Arcade Attendant Normal [facility] HIM IP Note OR Arcade Attendant Normal [facility] HIM IP Note OR Arcade Attendant Normal [facility] HIM IP Note OR Arcade Attendant Normal [facility] HIM IP Note OR Arcade Attendant Normal [facility] HIM IP Note OR Arcade Attendant Normal [facility] HIM IP Note OR Arcade Attendant Normal [facility] HIM IP Note OR Arcade Attendant Normal [facility] HIM IP Note OR Arcade Attendant Normal [facility] HIM IP Note OR Arcade Attendant Normal [facility] HIM IP Note OR Arcade Attendant Normal [facility] HIM IP Note OR Arcade Attendant Normal [facility] HIM IP Note OR Arcade Attendant Normal [facility] HIM IP Note OR Arcade Attendant Normal [facility] HIM IP Note OR Arcade Attendant Normal [facility] HIM IP Note OR Arcade Attendant Normal [facility] HIM IP Note OR Arcade Attendant Normal [facility] ED Provider Noteon 8 HIM IP Note OR Arcade Attendant Normal [facility] Ethanol Alcoholon 08-16-2018 Ethanol mass conc mg/dL Normal <10 [facility] Comment on above: Performed By: #### T ABA HERNADEZ, BMP ####[address] [place] [address] Ethanol percent <0.010 Normal [facility] Comment on above: Performed By: #### T ABA HERNADEZ, BMP ####[address] [place] [address] Salicylateon 08-16-2018 Salicylate <1 Low 3-10 [facility] Comment on above: Performed By: #### T ABA HERNADEZ, BMP ####[address] [place] [address] Thyroid Stim. Horm.on 2017 Thyrotropin Qn 0.80 m[IU]/L Normal 0.30-5.00 [facility] Comment on above: Performed By: #### T ABA HERNADEZ, BMP ####[address] , [place] [address] Thyroxine, Freeon 08-16-2018 Thyroxine, Free 1.43 ng/dL Normal 0.93-1.70 [facility] Comment on above: Performed By: #### T ABA HERNADEZ, BMP ####[address] [place] [address] Urinalysis w/ Microon 2017 ----- Normal [facility] Comment on above: Performed By: #### T ABA HERNADEZ, BMP ####[address] [place] [address] Acetaminophen mass conc Negative Normal NEG [facility] Comment on above: Performed By: #### T SH, CDP, BMP ####[address] [place] [address] Bacteria TRACE Abnormal NONE [facility] Comment on above: Performed By: #### T SH, CDP, BMP ####[address] [place] [address] Bilirubin, SemiQt,Ur Negative Normal NEG [facility] Comment on above: Performed By: #### T SH, CDP, BMP ####[address] [place] [address] Color YELLOW Normal YEL [facility] Comment on above: Performed By: #### T SH, CDP, BMP ####[address] [place] [address] Epithelial cells 0 TO 2 Normal 0-5 [facility] Comment on above: Performed By: #### T SH, CDP, BMP ####[address] [place] [address] Glucose,Semi-qnt,Ur Negative Normal [facility] Comment on above: Performed By: #### T SH, CDP, BMP ####[address] [place] [address] Hemoglobin, Ur Negative Normal [facility] Comment on above: Performed By: #### T SH, CDP, BMP ####[address] [place] [address] Leuckocyte Esterase Negative Normal [facility] Comment on above: Performed By: #### T SH, CDP, BMP ####[address] [place] [address] Nitrite,Ur Negative Normal NEG [facility] Comment on above: Performed By: #### T SH, CDP, BMP ####[address] [place] [address] PH,Ur 7.0 Normal 5.0-9.0 [facility] Comment on above: Performed By: #### T MARICARMEN CDP, BMP ####[address] [place] [address] Protein mass conc Negative Normal NEG [facility] Comment on above: Performed By: #### T MARICARMEN CDP, BMP ####[address] [place] [address] RBC Test strip #/vol (U) 0 TO 2 Normal 0-2 [facility] Comment on above: Performed By: #### T ABA HERNADEZ, BMP ####[address] [place] [address] Spec. [place],Ur <1.005 Low 1.010-1.02 0 [facility] Comment on above: Performed By: #### T ABA HERNADEZ, BMP ####[address] [place] [address] Turbidity CLEAR Normal CLEAR [facility] Comment on above: Performed By: #### T ABA HERNADEZ, BMP ####[address] [place] [address] Urine WBC's 0 TO 2 Normal 0-5 [facility] Comment on above: Performed By: #### T MARICARMEN CDP, BMP ####[address] [place] [address] Urobilinogen,Ur Normal Normal NORM [facility] Comment on above: Performed By: #### T MARICARMEN CDP, BMP ####[address] [place] [address] Amorphous Sediment NOT REPORTED Normal NONE [facility] Comment on above: Performed By: #### T MARICARMEN CDP, BMP ####[address] [place] [address] Casts NOT REPORTED Normal [facility] Comment on above: Performed By: #### T SH, CDP, BMP ####[address] [place] [address] Comment NOT REPORTED Normal [facility] Comment on above: Performed By: #### T SH, CDP, BMP ####[address] [place] [address] Crystals NOT REPORTED Normal NONE [facility] Comment on above: Performed By: #### T SH, CDP, BMP ####[address] [place] [address] Epithelial, Renal NOT REPORTED Normal 0 [facility] Comment on above: Performed By: #### T SH, CDP, BMP ####[address] [place] [address] Mucus Strands NOT REPORTED Normal NONE [facility] Comment on above: Performed By: #### T SH, CDP, BMP ####[address] [place] [address] Other Observations NOT REPORTED Normal NREQ [facility] Comment on above: Performed By: #### T SH, CDP, BMP ####[address] [place] [address] Trichomonas NOT REPORTED Normal NONE [facility] Comment on above: Performed By: #### T SH, CDP, BMP ####[address] [place] [address] Yeast NOT REPORTED Normal NONE [facility] Comment on above: Performed By: #### T SH, CDP, BMP ####[address] [place] [address] APTTon 08-06-2018 aPTT Coag time (Bld) 28.4 s Normal 23.2-34.[address] [facility] Comment on above: Performed By: #### T ABA HERNADEZ, BMP ####[address] , [place] [address] CBC with Diffon 08-06-2018 Abs. Basophil 0.03 k/uL Normal 0.00-0.20 [facility] Comment on above: Performed By: #### T ABA HERNADEZ, BMP ####[address] [place] [address] Abs.Imm.Granulocyte <0.03 Normal 0.00-0.30 [facility] Comment on above: Performed By: #### T ABA HERNADEZ BMP ####[address] [place] [address] Abs.Neutrophil (Seg) 4.25 k/uL Normal 1.50-8.[address] [facility] Comment on above: Performed By: #### T ABA HERNADEZ BMP ####[address] , [place] [address] Basophils/100 WBC Auto (Bld) 1 % Normal 0-2 [facility] Comment on above: Performed By: #### T ABA HERNADEZ BMP ####[address] [place] [address] Eosinophils Auto #/vol (Bld) 0.20 10*3/uL Normal 0.00-0.44 [facility] Comment on above: Performed By: #### T ABA HERNADEZ, BMP ####[address] [place] [address] Eosinophils/100 WBC Auto (Bld) 3 % Normal 1-4 [facility] Comment on above: Performed By: #### T ABA HERNADEZ, BMP ####[address] [place] [address] Erythrocyte distribution width Auto Ratio (RBC) 12.2 % Normal 11.8-14.4 [facility] Comment on above: Performed By: #### T ABA HERNADEZ, BMP ####[address] , [place] [address] Hematocrit Auto Volume Fraction (Bld) 39.4 % Low 40.7-50.3 [facility] Comment on above: Performed By: #### T MARICARMEN CDP, BMP ####[address] , [place] [address] Hemoglobin mass conc (Bld) 13.7 g/dL Normal 13.0-17.0 [facility] Comment on above: Performed By: #### T ABA HERNADEZ, BMP ####[address] , [facility]83 Immature granulocytes #/vol (Bld) 0 % Normal 0 [facility] Comment on above: Performed By: #### T ABA HERNADEZ, BMP ####[address] , [place] [address] Lymphocytes Auto #/vol (Bld) 1.12 10*3/uL Normal 1.10-3.70 [facility] Comment on above: Performed By: #### T ABA HERNADEZ, BMP ####[address] [place] [id number] Lymphocytes/100 WBC Auto (Bld) 18 % Low 24-43 [facility] Comment on above: Performed By: #### T ABA HERNADEZ, BMP ####[address] , [place] [address] MCH Auto Entitic mass (RBC) 33.6 pg High 25.2-33.5 [facility] Comment on above: Performed By: #### T ABA HERNADEZ, BMP ####[address] [place] [id number] MCHC Auto mass conc (RBC) 34.8 g/dL Normal 28.4-34.8 [facility] Comment on above: Performed By: #### T ABA HERNADEZ, BMP ####[address] , [facility] MCV Auto Entitic volume (RBC) 96.6 fL Normal 82.6-102.9 [facility] Comment on above: Performed By: #### T SH, CDP, BMP ####[address] [place] [address] Monocytes Auto #/vol (Bld) 0.61 10*3/uL Normal 0.10-1.20 [facility] Comment on above: Performed By: #### T SH, CDP, BMP ####[address] , [place] [address] Monocytes/100 WBC Auto (Bld) 10 % Normal 3-12 [facility] Comment on above: Performed By: #### T MARICARMEN, CDP, BMP ####[address] , [facility] Neutrophil (Seg) 68 % High 36-65 [facility] Comment on above: Performed By: #### T SH, CDP, BMP ####[address] , [facility] NRBC Automated 0.0 per 100 WBC Normal 0.0 [facility] Comment on above: Performed By: #### T MARICARMEN, CDP, BMP ####[address] [place] [address] Platelet mean volume Auto Entitic volume (Bld) 8.7 fL Normal 8.1-13.5 [facility] Comment on above: Performed By: #### T SH, CDP, BMP ####[address] [place] [address] Platelets Auto #/vol (Bld) 192 10*3/uL Normal 138-453 [facility] Comment on above: Performed By: #### T SH, CDP, BMP ####[address] , [facility] RBC Auto #/vol (Bld) 4.08 10*6/uL Low 4.21-5.77 [facility] Comment on above: Performed By: #### T ABA HERNADEZ, BMP ####[address] [place] [address] WBC Auto #/vol (Bld) 6.2 10*3/uL Normal 3.5-11.3 [facility] Comment on above: Performed By: #### ABA OLSON, BMP ####[address] [place] [address] Auto Diff Performed NOT REPORTED Normal [facility] Comment on above: Performed By: #### ABA OLSON, BMP ####[address] [place] [address] Platelets Auto #/vol (Bld) NOT REPORTED Normal [facility] Comment on above: Performed By: #### ABA OLSON, BMP ####[address] [place] [address] RBC morphology finding Nom (Bld) NOT REPORTED Normal [facility] Comment on above: Performed By: #### ABA OLSON, BMP ####[address] [place] [address] WBC Morphology NOT REPORTED Normal [facility] Comment on above: Performed By: #### ABA OLSON, BMP ####[address] [place] [address] CT ABDOMEN PELVIS WO CONTRAS Ton 08-06-2018 CT ABDOMEN PELVIS WO CONTRAST EXAMINATION:CT OF THE ABDOMEN AND PELVIS WITHOUT CONTRAST 08/06/2018 1:08 pmTECHNIQUE:CT of the abdomen and pelvis was performed without the administration ofintravenous contrast. Multiplanar reformatted images are provided for review.Dose modulation, iterative reconstruction, and/or weight based adjustment ofthe mA/kV was utilized to reduce the radiation dose to as low as reasonablyachievable.JAMEEL RISON:03/12/2018HISTORY:OR DERING SYSTEM PROVIDED HISTORY: ABD painTECHNOLOGIST PROVIDED HISTORY:FINDINGS:Lower Chest: Bibasilar peripheral reticular septal thickening consistent withmild fibrosis. UnchangedOrgans:The liver, spleen, pancreas and adrenal glands show no significantabnormality. Gallbladder is also grossly normal showing no evidence forgallstones.Bilateral renal pelvis. Nonobstructing 2 mm lower pole calculus in the leftkidney. No hydronephrosis. No ureteric calculus.GI/Bowel: There is limited evaluation due to absence of oral contrast.Stomach grossly normal. Small bowel shows no obstruction or focal lesions.Appendectomy. Colonic diverticulosis. No acute process.Pelvis: Urinary bladder grossly normal. No suspicious pelvic mass.Peritoneum/Retroperit oneum: No free intraperitoneal fluid or significantlymphadenopathy . IVC filter with the proximal and 3 cm caudad to the rightrenal vein.Bones/Soft Tissues: Dextrocurvature of the lumbar spine. Diffusedegenerative changes. No evidence for umbilical hernia or inguinal herniaIMPRESSION: 1. There is a 2 mm nonobstructing calculus lower pole left kidney. Noureteric calculi.2. No acute infective or inflammatory process.3. Minor bibasilar fibrosis unchanged.Interpreted by:FARRAH Arredondoigned by:Ketan Hartley MD08/06/18inal result Normal [facility] CT HEAD WO CONTRASTon 2017 CT HEAD WO CONTRAST EXAMINATION:CT OF TH E HEAD WITHOUT CONTRAST 08/06/2018 1:05 pmTECHNIQUE:CT of the head was performed without the administration of intravenouscontrast. Dose modulation, iterative reconstruction, and/or weight basedadjustment of the mA/kV was utilized to reduce the radiation dose to as lowas reasonably achievable.COMPARISON:None .HISTORY:ORDERING SYSTEM PROVIDED HISTORY: weaknessTECHNOLOGIST PROVIDED HISTORY:FINDINGS:BRAIN/RAMONA TRICLES: There is no acute intracranial hemorrhage, mass effect ormidline shift. No abnormal extra-axial fluid collection. The ray-whitedifferentiation is maintained without evidence of an acute infarct. There isno evidence of hydrocephalus. Scattered hypodensities are present in thewhite matter likely related to chronic microvascular change.ORBITS: The visualized portion of the orbits demonstrate no acute abnormality.SINUSES: Mild inflammatory changes are present the ethmoid air cells.Remainder of the paranasal sinuses are adequately aerated. Mastoid air cellsare adequately aerated.SOFT TISSUES/SKULL: No acute abnormality of the visualized skull or softtissues.IEstimated biologic radiation dose for this procedure:1381.76 mGy/cm2.IMPRESSION: No acute intracranial abnormality. Senescent changes including chronicmicrovascular change.Interpreted by:FARRAH Robbinsigned by:Ayanna Abrams MD08/06/inal result Normal [facility] Comp Metabolic Profon 2017 (cont.) Normal [facility] Comment on above: Result Comment: Aver age GFR for 70 or more years old: 75 mL/min/1.73sq mChronic Kidney Disease: <60 mL/min/1.73sq mKidney failure: <15 mL/min/1.73sq meGFR calculated using average adult body mass. Additional eGFR calculator available at:http://www.Bday/multiple_crcl_2011.htm Performed By: #### T ABA HERNADEZ BMP ####[address] [place] [address] Albumin mass conc 4.0 g/dL Normal 3.5-5.2 [facility] Comment on above: Performed By: #### ABA OLSON BMP ####[address] [place] [address] Albumin/Globulin mass ratio 1.4 {ratio} Normal 1.0-2.5 [facility] Comment on above: Performed By: #### ABA OLSON BMP ####[address] [place] [id number] Alkaline Phos 79 U/L Normal 40-129 [facility] Comment on above: Performed By: #### ABA OLSON BMP ####[address] [place] [address] ALT enzyme act/vol 11 U/L Normal 5-41 [facility] Comment on above: Performed By: #### ABA OLSON, BMP ####[address] [place] [id number] Anion gap 3 molar conc 12 mmol/L Normal 9-17 [facility] Comment on above: Performed By: #### T ABA HERNADEZ, BMP ####[address] [place] [address] AST enzyme act/vol 15 U/L Normal <40 [facility] Comment on above: Performed By: #### T ABA HERNADEZ, BMP ####[address] , [facility]83 Bilirubin Ql (U) 0.41 mg/dL Normal 0.3-1.2 [facility] Comment on above: Performed By: #### T ABA HERNADEZ, BMP ####[address] [place] [address] BUN/CRE Ratio 8 Low 9-20 [facility] Comment on above: Performed By: #### T ABA HERNADEZ, BMP ####[address] [place] [address] Calcium mass conc 9.1 mg/dL Normal 8.6-10.4 [facility] Comment on above: Performed By: #### T ABA HERNADEZ, BMP ####[address] [place] [address] Chloride molar conc 96 mmol/L Low 98-107 [facility] Comment on above: Performed By: #### T ABA HERNADEZ, BMP ####[address] [place] [address] CO2 molar conc 25 mmol/L Normal 20-31 [facility] Comment on above: Performed By: #### T ABA HERNADEZ, BMP ####[address] [place] [address] Creatinine mass conc 1.45 mg/dL High 0.70-1.[address] [facility] Comment on above: Performed By: #### T ABA HERNADEZ, BMP ####[address] [place] [address] GFR, Amer 58 mL/min Low >60 [facility] Comment on above: Performed By: #### T MARICARMEN CDP, BMP ####[address] [place] [address] GFR,non Amer 48 mL/min Low >[address] [facility] Comment on above: Performed By: #### T MARICARMEN, CDP, BMP ####[address] [place] [address] Glucose mass conc 100 mg/dL High 70-99 [facility] Comment on above: Performed By: #### T ABA HERNADEZ, BMP ####[address] [place] [address] Potassium molar conc 3.7 mmol/L Normal 3.7-5.[address] [facility] Comment on above: Performed By: #### T ABA HERNADEZ, BMP ####[address] [place] [address] Protein mass conc 6.8 g/dL Normal 6.4-8.3 [facility] Comment on above: Performed By: #### T MARICARMEN, CDP, BMP ####[address] [place] [address] Sodium molar conc 133 mmol/L Low 135-144 [facility] Comment on above: Performed By: #### T MARICARMEN, CDP, BMP ####[address] [place] [address] Staging: Normal [facility] Comment on above: Result Comment: Stag e 1: Some kidney damage normal GFRStage 2: Mild kidney damage GFR 60-89Stage 3: Moderate kidney damage GFR 30-59Stage 4: Severe kidney damage GFR 15-29Stage 5: Severe kidney damage GFR <15ESRD - chronic treatment by dialysis or transplant Performed By: #### T MARICARMEN, CDP, BMP ####[address] , [place] [phone] [phone] nitrogen mass conc 11 mg/dL Normal 8-23 [facility] Comment on above: Performed By: #### ABA OLSON, SHERRY ####[address] , [place] [phone] Provider Noteon 8 HIM IP Note OR [employer] Attendant Normal [facility] Lactic Acidon 08-06-2018 Lactate molar conc 0.8 mmol/L Normal 0.5-2.2 [facility] Comment on above: Performed By: #### ABA OLSON, BMP ####[address] [place] [address] Lactic Acid,Whole Bl NOT REPORTED Normal 0.7-2.1 [facility] Comment on above: Performed By: #### ABA OLSON BMP ####[address] [place] [address] PTon 08-06-2018 INR Coag RelTime (PPP) 1.0 {INR} Normal 0.9-1.2 [facility] Comment on above: Performed By: #### ABA OLSON BMP ####[address] [place] [address] Prothrombin time (PT) Coag time (PPP) 10.6 s Normal 9.7-12.2 [facility] Comment on above: Performed By: #### ABA OLSON, BMP ####[address] , [place] [id number](308 Thyroid Stim. Horm.on 2017 Thyrotropin Qn 0.37 m[IU]/L Normal 0.30-5.00 [facility] Comment on above: Performed By: #### ABA OLSON, BMP ####[address] [place] [address] Urinalysis, Routineon 2017 Acetaminophen mass conc Negative Normal NEG [facility] Comment on above: Performed By: #### T SH, CDP, BMP ####[address] [place] [address] Bilirubin, SemiQt,Ur Negative Normal NEG [facility] Comment on above: Performed By: #### T SH, CDP, BMP ####[address] [place] [address] Color YELLOW Normal YEL [facility] Comment on above: Performed By: #### T SH, CDP, BMP ####[address] [place] [address] Glucose,Semi-qnt,Ur Negative Normal NEG [facility] Comment on above: Performed By: #### T SH, CDP, BMP ####[address] [place] [address] Hemoglobin, Ur TRACE Abnormal NEG [facility] Comment on above: Performed By: #### T SH, CDP, BMP ####[address] [place] [address] Leuckocyte Esterase Negative Normal [facility] Comment on above: Performed By: #### T MARICARMEN, CDP, BMP ####[address] [place] [address] Nitrite,Ur Negative Normal NEG [facility] Comment on above: Performed By: #### T SH, CDP, BMP ####[address] [place] [address] PH,Ur 7.0 Normal 5.0-9.0 [facility] Comment on above: Performed By: #### T SH, CDP, BMP ####[address] [place] [address] Protein mass conc Negative Normal NEG [facility] Comment on above: Performed By: #### T SH, CDP, BMP ####[address] [place] [address] Spec. [place],Ur <1.005 Low 1.010-1.02 0 [facility] Comment on above: Performed By: #### T ABA HERNADEZ, BMP ####[address] [place] [id number] Turbidity CLEAR Normal CLEAR [facility] Comment on above: Performed By: #### T ABA HERNADEZ, BMP ####[address] [place] [address] Urobilinogen,Ur Normal Normal NORM [facility] Comment on above: Performed By: #### T ABA HERNADEZ, BMP ####[address] [place] [address] Comment NOT REPORTED Normal [facility] Comment on above: Performed By: #### T ABA HERNADEZ, BMP ####[address] [place] [address] Urinalysis,Microon 8 ----- Normal [facility] Comment on above: Performed By: #### T ABA HERNADEZ, BMP ####[address] [place] [address] Epithelial cells 0 TO 2 Normal 0-5 [facility] Comment on above: Performed By: #### T ABA HERNADEZ, BMP ####[address] [place] [address] RBC Test strip #/vol (U) 0 TO 2 Normal 0-2 [facility] Comment on above: Performed By: #### T ABA HERNADEZ, BMP ####[address] [place] [address] Urine WBC's 0 TO 2 Normal 0-5 [facility] Comment on above: Performed By: #### T ABA HERNADEZ, BMP ####[address] [place] [address] Amorphous Sediment NOT REPORTED Normal NONE [facility] Comment on above: Performed By: #### T SH, CDP, BMP ####[address] [place] [address] Bacteria NOT REPORTED Normal NONE [facility] Comment on above: Performed By: #### T SH, CDP, BMP ####[address] [place] [address] Casts NOT REPORTED Normal [facility] Comment on above: Performed By: #### T SH, CDP, BMP ####[address] [place] [address] Crystals NOT REPORTED Normal NONE [facility] Comment on above: Performed By: #### T SH, CDP, BMP ####[address] [place] [address] Epithelial, Renal NOT REPORTED Normal 0 [facility] Comment on above: Performed By: #### T SH, CDP, BMP ####[address] [place] [address] Mucus Strands NOT REPORTED Normal [facility] Comment on above: Performed By: #### T SH, CDP, BMP ####[address] [place] [address] Other Observations NOT REPORTED Normal NREQ [facility] Comment on above: Performed By: #### T SH, CDP, BMP ####[address] [place] [address] Trichomonas NOT REPORTED Normal NONE [facility] Comment on above: Performed By: #### T SH, CDP, BMP ####[address] [place] [address] Yeast NOT REPORTED Normal NONE [facility] Comment on above: Performed By: #### T SH, CDP, BMP ####[address] [place] [address] UA w/Reflex Cultureon 2017 Acetoacetic Acid,Ur Negative Normal [facility] Comment on above: Performed By: #### T SH, CDP, BMP ####[address] [place] [address] Bilirubin, SemiQt,Ur Negative Normal [facility] Comment on above: Performed By: #### T SH, CDP, BMP ####[address] [place] [address] Color YELLOW Normal YEL [facility] Comment on above: Performed By: #### T SH, CDP, BMP ####[address] [place] [address] Glucose,Semi-qnt,Ur Negative Normal [facility] Comment on above: Performed By: #### T SH, CDP, BMP ####[address] [place] [address] Hemoglobin, Ur Negative Normal [facility] Comment on above: Performed By: #### T SH, CDP, BMP ####[address] [place] [address] Leuckocyte Esterase Negative Normal [facility] Comment on above: Performed By: #### T SH, CDP, BMP ####[address] [place] [address] Nitrite,Ur Negative Normal [facility] Comment on above: Performed By: #### T SH, CDP, BMP ####[address] [place] [address] PH,Ur 7.0 Normal 5.0-9.0 [facility] Comment on above: Performed By: #### T SH, CDP, BMP ####[address] [place] [address] Protein, Semi-qnt,Ur Negative Normal NEG [facility] Comment on above: Performed By: #### T MARICARMEN, CDP, BMP ####[address] [place] [address] Spec. [place],Ur <1.005 Low 1.010-1.02 0 [facility] Comment on above: Performed By: #### T MARICARMEN, CDP, BMP ####[address] [place] [address] Turbidity CLEAR Normal CLEAR [facility] Comment on above: Performed By: #### T MARICARMEN, CDP, BMP ####[address] [place] [address] Urobilinogen,Ur Normal Normal NORM [facility] Comment on above: Performed By: #### T MARICARMEN CDP, BMP ####[address] [place] [address] Comment NOT REPORTED Normal [facility] Comment on above: Performed By: #### T ABA HERNADEZ, BMP ####[address] [place] [address] Urinalysis,Microon 8 ----- Normal [facility] Comment on above: Performed By: #### T MARICARMEN, CDP, BMP ####[address] [place] [address] Epithelial cells 0 TO 2 Normal 0-5 [facility] Comment on above: Performed By: #### T MARICARMEN, CDP, BMP ####[address] [place] [address] RBC Test strip #/vol (U) 0 TO 2 Normal 0-2 [facility] Comment on above: Performed By: #### T MARICARMEN, CDP, BMP ####[address] [place] [address] Urine WBC's 0 TO 2 Normal 0-5 [facility] Comment on above: Performed By: #### T MARICARMEN, CDP, BMP ####[address] [place] [address] Amorphous Sediment NOT REPORTED Normal NONE [facility] Comment on above: Performed By: #### T SH, CDP, BMP ####[address] [place] [address] Bacteria NOT REPORTED Normal NONE [facility] Comment on above: Performed By: #### T MARICARMEN, CDP, BMP ####[address] [place] [address] Casts NOT REPORTED Normal [facility] Comment on above: Performed By: #### T MARICARMEN CDP, BMP ####[address] [place] [address] Crystals NOT REPORTED Normal NONE [facility] Comment on above: Performed By: #### T MARICARMEN CDP, BMP ####[address] [place] [address] Epithelial, Renal NOT REPORTED Normal 0 [facility] Comment on above: Performed By: #### T MARICARMEN CDP, BMP ####[address] [place] [address] Mucus Strands NOT REPORTED Normal NONE [facility] Comment on above: Performed By: #### T MARICARMEN CDP, BMP ####[address] [place] [address] Other Observations NOT REPORTED Normal NREQ [facility] Comment on above: Performed By: #### T SH, CDP, BMP ####[address] [place] [address] Trichomonas NOT REPORTED Normal NONE [facility] Comment on above: Performed By: #### T SH, CDP, BMP ####[address] [place] [address] Yeast NOT REPORTED Normal NONE [facility] Comment on above: Performed By: #### T SH, CDP, BMP ####[address] , [place] [address] CBC with Diffon 06-15-2018 Abs. Basophil <0.03 Normal 0.00-0.20 [facility] Comment on above: Performed By: #### T ABA HERNADEZ, BMP ####[address] , [facility] Abs.Imm.Granulocyte 0.03 k/uL Normal 0.00-0.30 [facility] Comment on above: Performed By: #### T ABA HERNADEZ, BMP ####[address] [place] [address] Abs.Neutrophil (Seg) 3.87 k/uL Normal 1.50-8.[address] [facility] Comment on above: Performed By: #### T ABA HERNADEZ, BMP ####[address] , [place] [address] Basophils/100 WBC Auto (Bld) 0 % Normal 0-2 [facility] Comment on above: Performed By: #### T ABA HERNADEZ, BMP ####[address] [place] [address] Eosinophils Auto #/vol (Bld) 0.34 10*3/uL Normal 0.00-0.44 [facility] Comment on above: Performed By: #### T ABA HERNADEZ, BMP ####[address] , [place] [address] Eosinophils/100 WBC Auto (Bld) 6 % High 1-4 [facility] Comment on above: Performed By: #### T ABA HERNADEZ, BMP ####[address] [place] [address] Erythrocyte distribution width Auto Ratio (RBC) 12.9 % Normal 11.8-14.4 [facility] Comment on above: Performed By: #### T ABA HERNADEZ, BMP ####[address] [place] [id number] Hematocrit Auto Volume Fraction (Bld) 40.4 % Low 40.7-50.3 [facility] Comment on above: Performed By: #### T MARICARMEN CDP, BMP ####[address] , [facility] Hemoglobin mass conc (Bld) 14.0 g/dL Normal 13.0-17.0 [facility] Comment on above: Performed By: #### T MARICARMEN, CDP, BMP ####[address] [place] [address] Immature granulocytes #/vol (Bld) 1 % High 0 [facility] Comment on above: Performed By: #### T ABA HERNADEZ, BMP ####[address] [place] [id number] Lymphocytes Auto #/vol (Bld) 1.24 10*3/uL Normal 1.10-3.70 [facility] Comment on above: Performed By: #### T ABA HERNADEZ, BMP ####[address] [place] [address] Lymphocytes/100 WBC Auto (Bld) 21 % Low 24-43 [facility] Comment on above: Performed By: #### T MARICARMEN, ABA, BMP ####[address] [place] [address] MCH Auto Entitic mass (RBC) 33.7 pg High 25.2-33.5 [facility] Comment on above: Performed By: #### T MARICARMEN, CDP, BMP ####[address] [place] [address] MCHC Auto mass conc (RBC) 34.7 g/dL Normal 28.4-34.8 [facility] Comment on above: Performed By: #### T MARICARMEN, CDP, BMP ####[address] [place] [address] MCV Auto Entitic volume (RBC) 97.1 fL Normal 82.6-102.9 [facility] Comment on above: Performed By: #### T ABA HERNADEZ, BMP ####[address] , [facility] Monocytes Auto #/vol (Bld) 0.46 10*3/uL Normal 0.10-1.20 [facility] Comment on above: Performed By: #### T MARICARMEN, CDP, BMP ####[address] , [facility] Monocytes/100 WBC Auto (Bld) 8 % Normal 3-12 [facility] Comment on above: Performed By: #### T ABA HERNADEZ, BMP ####[address] , [facility]83 Neutrophil (Seg) 64 % Normal 36-65 [facility] Comment on above: Performed By: #### T ABA HERNADEZ, BMP ####[address] , [place] [address] NRBC Automated 0.0 per 100 WBC Normal 0.0 [facility] Comment on above: Performed By: #### T ABA HERNADEZ, BMP ####[address] , [facility] Platelet mean volume Auto Entitic volume (Bld) 9.0 fL Normal 8.1-13.5 [facility] Comment on above: Performed By: #### T MARICARMEN, ABA, BMP ####[address] , [facility] Platelets Auto #/vol (Bld) 157 10*3/uL Normal 138-453 [facility] Comment on above: Performed By: #### T MARICARMEN, CDP, BMP ####[address] , [facility] RBC Auto #/vol (Bld) 4.16 10*6/uL Low 4.21-5.77 [facility] Comment on above: Performed By: #### T ABA HERNADEZ, BMP ####[address] , [place] [address] WBC Auto #/vol (Bld) 6.0 10*3/uL Normal 3.5-11.3 [facility] Comment on above: Performed By: #### T ABA HERNADEZ, BMP ####[address] [place] [address] Auto Diff Performed NOT REPORTED Normal [facility] Comment on above: Performed By: #### T ABA HERNADEZ, BMP ####[address] [place] [address] Platelets Auto #/vol (Bld) NOT REPORTED Normal [facility] Comment on above: Performed By: #### T ABA HERNADEZ, BMP ####[address] [place] [address] RBC morphology finding Nom (Bld) NOT REPORTED Normal [facility] Comment on above: Performed By: #### T ABA HERNADEZ, BMP ####[address] [place] [address] WBC Morphology NOT REPORTED Normal [facility] Comment on above: Performed By: #### T ABA HERNADEZ, BMP ####[address] , [facility] Comp Metabol,Fastingon 06-15 (cont.) Normal [facility] Comment on above: Result Comment: Aver age GFR for 70 or more years old: 75 mL/min/1.73sq mChronic Kidney Disease: <60 mL/min/1.73sq mKidney failure: <15 mL/min/1.73sq meGFR calculated using average adult body mass. Additional eGFR calculator available at:http://www.[employer]emeriX/multiple_crcl_2012.htm Performed By: #### T ABA HERNADEZ, BMP ####[address] [place] [address] Albumin mass conc 4.0 g/dL Normal 3.5-5.2 [facility] Comment on above: Performed By: #### T MARICARMEN, CDP, BMP ####[address] [place] [address] Albumin/Globulin mass ratio 1.5 {ratio} Normal 1.0-2.5 [facility] Comment on above: Performed By: #### T MARICARMEN, CDP, BMP ####[address] [place] [address] Alkaline Phos 74 U/L Normal 40-129 [facility] Comment on above: Performed By: #### T MARICARMEN, CDP, BMP ####[address] [place] [address] ALT enzyme act/vol 10 U/L Normal 5-41 [facility] Comment on above: Performed By: #### T MARICARMEN, CDP, BMP ####[address] [place] [address] Anion gap 3 molar conc 11 mmol/L Normal 9-17 [facility] Comment on above: Performed By: #### T MARICARMEN, CDP, BMP ####[address] [place] [address] AST enzyme act/vol 15 U/L Normal <40 [facility] Comment on above: Performed By: #### T MARICARMEN, CDP, BMP ####[address] [place] [address] Bilirubin Ql (U) 0.50 mg/dL Normal 0.3-1.2 [facility] [facility] Comment on above: Performed By: #### T MARICARMEN, CDP, BMP ####[address] [place] [address] BUN/CRE Ratio 9 Normal 9-20 [facility] Comment on above: Performed By: #### T SH, CDP, BMP ####[address] [place] [address] Calcium mass conc 9.6 mg/dL Normal 8.6-10.4 [facility] Comment on above: Performed By: #### T SH, CDP, BMP ####[address] [place] [address] Chloride molar conc 102 mmol/L Normal 98-107 [facility] Comment on above: Performed By: #### T SH, CDP, BMP ####[address] [place] [address] CO2 molar conc 28 mmol/L Normal 20-31 [facility] Comment on above: Performed By: #### T SH, CDP, BMP ####[address] [place] [address] Creatinine mass conc 1.71 mg/dL High 0.70-1.[address] [facility] Comment on above: Performed By: #### T SH, CDP, BMP ####[address] [place] [address] GFR, Amer 48 mL/min Low >60 [facility] Comment on above: Performed By: #### T SH, CDP, BMP ####[address] [place] [address] GFR,non Amer 40 mL/min Low >[address] [facility] Comment on above: Performed By: #### T SH, CDP, BMP ####[address] [place] [address] Glucose mass conc 95 mg/dL Normal 70-99 [facility] Comment on above: Performed By: #### T SH, CDP, BMP ####[address] [place] [address] Potassium molar conc 4.3 mmol/L Normal 3.7-5.[address] [facility] Comment on above: Performed By: #### T SH, CDP, BMP ####[address] [place] [address] Protein mass conc 6.7 g/dL Normal 6.4-8.3 [facility] Comment on above: Performed By: #### T SH, CDP, BMP ####[address] [place] [address] Sodium molar conc 141 mmol/L Normal 135-144 [facility] Comment on above: Performed By: #### T SH, CDP, BMP ####[address] [place] [address] Staging: Normal [facility] Comment on above: Result Comment: Stag e 1: Some kidney damage normal GFRStage 2: Mild kidney damage GFR 60-89Stage 3: Moderate kidney damage GFR 30-59Stage 4: Severe kidney damage GFR 15-29Stage 5: Severe kidney damage GFR <15ESRD - chronic treatment by dialysis or transplant Performed By: #### T SH, CDP, BMP ####[address] [place] [address] Urea nitrogen mass conc 15 mg/dL Normal 8-23 [facility] Comment on above: Performed By: #### T MARICARMEN, CDP, BMP ####[address] [place] [address] Lipid Prof, Fastingon 2017 Cholesterol in HDL mass conc 53 mg/dL Normal >40 [facility] Comment on above: Result Comment: HDL Guidelines: <40 Undesirable 40-59 Borderline >59 Desirable Performed By: #### T SH, CDP, BMP ####[address] [place] [address] Cholesterol in LDL mass conc 55 mg/dL Normal 0-130 [facility] Comment on above: Result Comment: LDL Guidelines: <100 Desirable 100-129 Near to/above Desirable 130-159 Borderline >159 UndesirableDirect (measured) LDL and calculated LDL are not interchangeable tests. Performed By: #### T ABA HERNADEZ, BMP ####[address] [place] [address] Cholesterol mass conc 137 mg/dL Normal <200 [facility] Comment on above: Result Comment: Chol esterol Guidelines: <200 Desirable 200-240 Borderline >240 Undesirable Performed By: #### T ABA HERNADEZ, BMP ####[address] [place] [address] Cholesterol.total/Chol esterol in HDL mass ratio 2.6 {ratio} Normal <5 [facility] Comment on above: Performed By: #### T ABA HERNADEZ, BMP ####[address] [place] [address] Triglyceride,Fasting 147 mg/dL Normal <[address] [facility] Comment on above: Result Comment: Trig lyceride Guidelines: <150 Desirable 150- 199 Borderline 200-499 High >499 Very high Based on AHA Guidelines for fasting triglyceride, July 2012. Performed By: #### T ABA HERNADEZ, BMP ####[address] [place] [address] Cholesterol in VLDL mass conc NOT REPORTED Normal 11-25 [facility] Comment on above: Performed By: #### T ABA HERNADEZ, BMP ####[address] [place] [address] Thyroid Stim. Horm.on 2017 Thyrotropin Qn 0.43 m[IU]/L Normal 0.30-5.00 [facility] Comment on above: Performed By: #### T ABA HERNADEZ, BMP ####[address] [place] [address] Thyroxine, Freeon 06-15-2018 Thyroxine, Free 1.37 ng/dL Normal 0.93-1.70 [facility] Comment on above: Performed By: #### T ABA HERNADEZ, BMP ####[address] [place] [address] Group A Strep DNAon 05-05-20 18 Group A Strep DNA Specimen Description .THROAT SWABSpecial Requests NOT REPORTEDDirect Exam Negative: Specimen negative for Streptococcus pyogenes by DNA amplification.Report Status FINAL 05/05/2018 [facility] Comment on above: Performed By: #### G ASDNA ####[address] [phone] [place] [address] Strep Gr A Direct Agon 05-04 S. pyogenes Ag IA Ql (Unsp spec) Specimen Description .THROATSpecial Requests NOT REPORTEDDirect Exam Rapid Strep A negative. A negative Rapid Group A Strep Screen result does not rule out the possibility of Group A Streptococci in the specimen. A Group A strep DNA test will be performed. Report Status FINAL 05/04/2018 [facility] Comment on above: Performed By: #### S GPA ####[address] [place] [address] XR CHEST (2 VW)on 05-04-2018 Thyrotropin Qn REPORT: Chest, 2 views.INDICATION: Cough.FINDINGS: PA and lateral views of the chest show the heart to be normal in size. There may be mild underlying COPD. The lung lorenzo and costophrenic angles are clear. There is no evidence of a pneumothorax or free air beneath the diaphragm.Final report electronically signed by Bijan Miranda on 05/04/2018 10:57 AMIMPRESSION: NO ACTIVE INFILTRATE OR VASCULAR CONGESTION.Interpreted by:FARRAH Shresthaigned by:Bijan Miranda MD05/04/18inal result Normal [facility] H. pylori Antigenon 03-31-20 18 H. pylori Antigen Specimen Description .FECES Performed at [address] [place] [address] [phone] Special Requests NOT REPORTEDDirect Exam NEGATIVE Performed at [address] [id number] [phone] Report Status FINAL 03/31/2018 [facility] Comment on above: Performed By: #### F HPY ####[address] [place] [phone] [place] [address] CT ABDOMEN PELVIS W IV CONTR Suresh 03-13-2018 CT ABDOMEN PELVIS W IV CONTRAST REPORT: CT abdomen and pelvis with contrastTECHNIQUE: Contiguous thin axial slices through the abdomen and pelvis obtained after administration of 100 mL Isovue-300 IV as per protocol. Axial, coronal and sagittal reformats were made from the source images.INDICATION: Abdominal pain, generalizedFINDINGS: Compared to 09/13/2017ABDOMEN: Chronic changes in the lung bases. The liver is normal in size and contour. No focal hepatic lesion is identified. Gallbladder is surgically absent. No intra-or extrahepatic biliary ductal dilation. Normal symmetric enhancement of both kidneys. No perinephric inflammation, hydronephrosis or mass lesion. Punctate nonobstructing left nephrolith. The adrenal glands, spleen and pancreas are normal. Non-aneurysmal abdominal aorta. No free intraperitoneal air.PELVIS: No dilated loops of bowel, bowel wall thickening or pneumatosis. The appendix is surgically absent. Extensive diverticulosis but no acute diverticulitis. No free pelvic fluid. Degenerative changes of the spine and pelvis.1. No acute process seen in the abdomen or pelvis2. Punctate nonobstructing left nephrolith3. Extensive diverticulosisFinal report electronically signed by Jessa Garcia on 03/13/2018 9:14 AMInterpreted by:FARRAH Zelayaigned by:Jessa Garcia MD03/13/inal result Normal [facility] Basic Metabolic Profon 03-12 (cont.) Normal [facility] Comment on above: Result Comment: Aver age GFR for 70 or more years old: 75 mL/min/1.73sq mChronic Kidney Disease: <60 mL/min/1.73sq mKidney failure: <15 mL/min/1.73sq meGFR calculated using average adult body mass. Additional eGFR calculator available at:http://www.[employer]emeriX/multiple_crcl_2012.htm Performed By: #### B MP ####[address] [place] [address] Anion gap 3 molar conc 12 mmol/L Normal 9-17 [facility] Comment on above: Performed By: #### B MP ####[facility] [place] [address] BUN/CRE Ratio 13 Normal 9-20 [facility] Comment on above: Performed By: #### B MP ####[address] [place] [address] Calcium mass conc 9.2 mg/dL Normal 8.6-10.4 [facility] Comment on above: Performed By: #### B MP ####[address] [place] [address] Chloride molar conc 98 mmol/L Normal 98-107 [facility] Comment on above: Performed By: #### B MP ####[address] [place] [address] CO2 molar conc 27 mmol/L Normal 20-31 [facility] Comment on above: Performed By: #### B MP ####[address] [place] [address] Creatinine mass conc 1.44 mg/dL High 0.70-1.[address] [facility] Comment on above: Performed By: #### B MP ####[address] [place] [address] GFR, Amer 59 mL/min Low >60 [facility] Comment on above: Performed By: #### B MP ####[address] [place] [address] GFR,non Amer 48 mL/min Low >[address] [facility] Comment on above: Performed By: #### B MP ####[address] [place] [address] Glucose mass conc 98 mg/dL Normal 70-99 [facility] Comment on above: Performed By: #### B MP ####[address] [place] [address] Potassium molar conc 4.4 mmol/L Normal 3.7-5.[address] [facility] Comment on above: Performed By: #### B MP ####[address] [place] [address] Sodium molar conc 137 mmol/L Normal 135-144 [facility] Comment on above: Performed By: #### B MP ####[address] [place] [address] Staging: Normal [facility] Comment on above: Result Comment: Stag e 1: Some kidney damage normal GFRStage 2: Mild kidney damage GFR 60-89Stage 3: Moderate kidney damage GFR 30-59Stage 4: Severe kidney damage GFR 15-29Stage 5: Severe kidney damage GFR <15ESRD - chronic treatment by dialysis or transplantPerformed at [address] [place] [address] Performed By: #### B MP ####[address] [place] [address] Urea nitrogen mass conc 18 mg/dL Normal 8-23 [facility] Comment on above: Performed By: #### B MP ####[address] [id number] Basic Metabolic Profon 10-14 (cont.) Normal [facility] Comment on above: Result Comment: Aver age GFR for 70 or more years old: 75 mL/min/1.73sq mChronic Kidney Disease: <60 mL/min/1.73sq mKidney failure: <15 mL/min/1.73sq meGFR calculated using average adult body mass. Additional eGFR calculator available at:http://www.[employer].NemeriX/multiple_crcl_2011.htm Performed By: #### T SH, CDP, BMP ####[address] [place] [address] Anion gap 3 molar conc 13 mmol/L Normal 9-17 [facility] Comment on above: Performed By: #### T ABA HERNADEZ, BMP ####[address] [place] [address] BUN/CRE Ratio 16 Normal 9-20 [facility] Comment on above: Performed By: #### T ABA HERNADEZ, BMP ####[address] , [facility] Calcium mass conc 9.2 mg/dL Normal 8.6-10.4 [facility] Comment on above: Performed By: #### T ABA HERNADEZ, BMP ####[address] [place] [address] Chloride molar conc 94 mmol/L Low 98-107 [facility] Comment on above: Performed By: #### T ABA HERNADEZ, BMP ####[address] , [place] [address] CO2 molar conc 26 mmol/L Normal 20-31 [facility] Comment on above: Performed By: #### T ABA HERNADEZ, BMP ####[address] [place] [address] Creatinine mass conc 1.60 mg/dL High 0.70-1.[address] [facility] Comment on above: Performed By: #### T ABA HERNADEZ, BMP ####[address] , [facility] GFR, Amer 52 mL/min Low >60 [facility] Comment on above: Performed By: #### T ABA HERNADEZ, BMP ####[address] [place] [address] GFR,non Amer 43 mL/min Low >[address] [facility] Comment on above: Performed By: #### T ABA HERNADEZ, BMP ####[address] [place] [address] Glucose mass conc 108 mg/dL High 70-99 [facility] Comment on above: Performed By: #### T ABA HERNADEZ BMP ####[address] [place] [address] Potassium molar conc 3.9 mmol/L Normal 3.7-5.[address] [facility] Comment on above: Performed By: #### ABA OLSON, BMP ####[address] [place] [address] Sodium molar conc 133 mmol/L Low 135-144 [facility] Comment on above: Performed By: #### ABA OLSON BMP ####[address] [place] [address] Staging: Normal [facility] Comment on above: Result Comment: Stag e 1: Some kidney damage normal GFRStage 2: Mild kidney damage GFR 60-89Stage 3: Moderate kidney damage GFR 30-59Stage 4: Severe kidney damage GFR 15-29Stage 5: Severe kidney damage GFR <15ESRD - chronic treatment by dialysis or transplantPerformed at [address] [place] [address] Performed By: #### ABA OLSON BMP ####[address] [place] [address] Urea nitrogen mass conc 25 mg/dL High 8-23 [facility] Comment on above: Performed By: #### ABA OLSON BMP ####[address] [place] [address] CBC with Diffon 10-14-2017 Abs. Basophil 0.00 k/uL Normal 0.0-0.2 [facility] Comment on above: Performed By: #### ABA OLSON, BMP ####[address] [place] [address] Abs.Neutrophil (Seg) 8.99 k/uL High 1.8-7.[address] [facility] Comment on above: Performed By: #### T SH CDP, BMP ####[address] , [place] [address] Basophils/100 WBC Auto (Bld) 0 % Normal 0-2 [facility] Comment on above: Performed By: #### T SH CDP, BMP ####[address] , [place] [address] Eosinophils Auto #/vol (Bld) 0.21 10*3/uL Normal 0.0-0.4 [facility] Comment on above: Performed By: #### T ABA HERNADEZ, BMP ####[address] , [facility]83 Eosinophils/100 WBC Auto (Bld) 2 % Normal 0-8 [facility] Comment on above: Performed By: #### T MARICARMEN CDP, BMP ####[address] , [place] [address] Lymphocytes Auto #/vol (Bld) 1.18 10*3/uL Normal 1.0-4.8 [facility] Comment on above: Performed By: #### T ABA HERNADEZ, BMP ####[address] , [facility]83 Lymphocytes/100 WBC Auto (Bld) 11 % Low 24-44 [facility] Comment on above: Performed By: #### T MARICARMEN CDP, BMP ####[address] , [place] [address] Monocytes Auto #/vol (Bld) 0.32 10*3/uL Normal 0.0-1.0 [facility] Comment on above: Performed By: #### T MARICARMEN CDP, BMP ####[address] , [facility]83 Monocytes/100 WBC Auto (Bld) 3 % Normal 0-12 [facility] Comment on above: Performed By: #### T SH, CDP, BMP ####[address] [place] [address] Morphology Interp Azar (Bld) Normal Normal [facility] Comment on above: Result Comment: Perf ormed at [address] [place] [address] Performed By: #### T ABA HERNADEZ, BMP ####[address] [place] [address] Neutrophil (Seg) 84 % High 36-66 [facility] Comment on above: Performed By: #### T ABA HERNADEZ, BMP ####[address] [place] [address] Erythrocyte distribution width Auto Ratio (RBC) 14.0 % Normal 12.1-15.2 [facility] Comment on above: Performed By: #### T ABA HERNADEZ, BMP ####[address] [place] [address] Hematocrit Auto Volume Fraction (Bld) 44.7 % Normal 41-53 [facility] Comment on above: Performed By: #### T ABA HERNADEZ, BMP ####[address] [place] [address] Hemoglobin mass conc (Bld) 14.6 g/dL Normal 13.5-17.0 [facility] Comment on above: Performed By: #### T ABA HERNADEZ, BMP ####[address] [place] [address] MCH Auto Entitic mass (RBC) 32.2 pg Normal 26-34 [facility] Comment on above: Performed By: #### T ABA HERNADEZ, BMP ####[address] [place] [address] MCHC Auto mass conc (RBC) 32.6 g/dL Normal 31-37 [facility] Comment on above: Performed By: #### T ABA HERNADEZ, BMP ####[address] [place] [address] MCV Auto Entitic volume (RBC) 98.7 fL Normal 80-100 [facility] Comment on above: Performed By: #### T ABA HERNADEZ, BMP ####[address] [place] [address] Platelet mean volume Auto Entitic volume (Bld) 7.3 fL Normal 6.0-12.0 [facility] Comment on above: Performed By: #### T ABA HERNADEZ, BMP ####[address] [place] [address] Platelets Auto #/vol (Bld) 216 10*3/uL Normal 140-450 [facility] Comment on above: Performed By: #### T ABA HERNADEZ, BMP ####[address] [place] [address] RBC Auto #/vol (Bld) 4.53 10*6/uL Normal 4.5-5.9 [facility] Comment on above: Performed By: #### T ABA HERNADEZ, BMP ####[address] [place] [address] WBC Auto #/vol (Bld) 10.7 10*3/uL Normal 3.5-11.0 [facility] Comment on above: Performed By: #### T ABA HERNADEZ, BMP ####[address] [place] [address] Abs.Imm.Granulocyte NOT REPORTED Normal 0.00-0.30 [facility] Comment on above: Performed By: #### T ABA HERNADEZ, BMP ####[address] [place] [address] Auto Diff Performed NOT REPORTED Normal [facility] Comment on above: Performed By: #### T ABA HERNADEZ, BMP ####[address] , [place] [address] Immature granulocytes #/vol (Bld) NOT REPORTED Normal 0 [facility] Comment on above: Performed By: #### T ABA HERNADEZ, BMP ####[address] , [place] [phone] Platelets Auto #/vol (Bld) NOT REPORTED Normal [facility] Comment on above: Performed By: #### T MARICARMEN, ABA, BMP ####[address] , [place] [address] RBC morphology finding Nom (Bld) NOT REPORTED Normal [facility] Comment on above: Performed By: #### T MARICARMEN, ABA, BMP ####[address] [place] [address] WBC Morphology NOT REPORTED Normal [facility] Comment on above: Performed By: #### T MARICARMEN, ABA, BMP ####[address] , [place] [address] Thyroid Stim. Horm.on 2016 Thyrotropin Qn 0.23 m[IU]/L Low 0.30-5.00 [facility] Comment on above: Result Comment: Perf ormed at [address] [place] [address] Performed By: #### T MARICARMEN, ABA, BMP ####[address] [place] [address] PSA, [employer] 10-01-2017 Prostatic Spec. Ag 0.42 ug/L Normal <4.1 [facility] Comment on above: Result Comment: The Deonte ECLIA assay is used. Results obtained with different assay methods cannot be used interchangeably.Performed at [address] [place] [id number] [phone] Performed By: #### P SAD ####[address] [place] [address] Vital Signs Date Time Vital Sign Value Performing Clinician Facility 10-18-2023 12:16-0500 Heart rate 84 /min [facility] 10-18-2023 11:43-0500 Body height 185.42 cm [facility] 10-18-2023 11:43-0500 Body temperature 98.3 [degF] [facility] 10-18-2023 11:43-0500 Body weight 90.9 kg [facility] 10-18-2023 11:43-0500 Diastolic blood pressure 66 mm[Hg] [facility] 10-18-2023 11:43-0500 Respiratory rate 21 /min [facility] 10-18-2023 11:43-0500 SaO2% (BldA) [Mass fraction] 97 % [facility] 10-18-2023 11:43-0500 Systolic blood pressure 142 mm[Hg] [facility] 10-18-2023 10:20-0500 Body height 185.42 cm Brittany Amador Other [facility] Other 10-18-2023 10:20-0500 Body mass index (BMI) [Ratio] 26.36 kg/m2 Brittany Amador Other [facility] Other 10-18-2023 10:20-0500 Body temperature 98.9 [degF] Brittany Marjorie Other [facility] Other 10-18-2023 10:20-0500 Body weight 90.63 kg Brittany Amador Other [facility] Other 10-18-2023 10:20-0500 Respiratory rate 18 /min Brittany Amador Other [facility] Other 10-18-2023 10:20-0500 SaO2% (BldA) [Mass fraction] 99 % Brittany Amador Other [facility] Other Encounters Encounter Date Encounter Type Care Provider Facility Start: 11-20-2023 End: 11-20-2023 ambulatory DEBRA MUNGUIA Not Available Start: 10-18-2023 End: 10-18-2023 ambulatory Brittany Amador Other [facility] Other Start: 10-18-2023 Patient encounter procedure Brittany Amador [facility] Start: 10-18-2023 End: 10-18-2023 Emergency department patient visit Michael Amador Facility:[facility] Start: 10-18-2023 End: 10-18-2023 Emergency department patient visit [facility] Work Phone: Start: 03-10-[address] THEE MCGUIRE Facil ity:[facility] Start: 10-30-2022 End: 10-30-[address] THEE MCGUIRE Facility:[facility] Start: 09-10-2022 End: 09-10-[address] THEE MCGUIRE Facility:[facility] Start: 05-13-2022 End: 05-14-[address] THEE MCGUIRE Facility:[facility] Start: 02-03-2022 End: 02-07-2022 Evaluation and management of inpatient PHYSICIAN UNKNOWN Facility:[facility] Start: 08-17-2018 End: 08-31-2018 Evaluation and management of inpatient [facility] Start: 08-16-2018 End: 08-16-2018 Emergency department patient visit [facility] Start: 08-06-2018 End: 08-06-2018 Emergency department patient visit ISIDRO [facility] Start: 08-03-2018 End: 08-04-2018 Patient encounter [facility] WILKINS [facility] Start: 06-15-2018 End: 06-16-2018 [facility] Start: 05-04-2018 End: 05-04-2018 Emergency department patient visit [facility] Start: 03-30-2018 End: 03-31-2018 Patient encounter [facility]EN SILVA [facility] Start: 03-27-2018 End: 03-28-2018 [facility] Start: 03-12-2018 End: 03-15-2018 [facility] Start: 10-14-2017 End: 10-15-2017 [facility] Start: 10-01-2017 End: 10-02-2017 Patient encounter [facility] YARBR[facility] Procedures Date Procedure Procedure Detail Performing Clinician Start: 10-18-2023 CT of paranasal sinu s without contrast Start: 02-04-2022 Antibody screen PHYSICI AN UNKNOWN Comment on above: Performed By: #### 3 [id number] #### [address] Start: 08-31-2018 DISCHARGE PATIENT PJ PUGA Start: 08-19-2018 Microscopic urinalysis PJ PUGA Start: 08-19-2018 URINE RT REFLEX TO CULTURE PJ PUGA Start: 08-17-2018 DIETARY NUTRITION SUPPLEMENTS PJ MANCERAA Start: 08-17-2018 PATIENT STATUS (FROM ED OR OR/PROCEDURAL) PJ PUGA Start: 08-17-2018 IP CONSULT TO SOCIAL SECRETARY AL MEDICINE PJ PUGA Start: 08-17-2018 DIET GENERAL PJ GRAHAM UA Start: 08-17-2018 IP CONSULT TO DIETITIAN PJ PUGA Start: 08-17-2018 IP CONSULT TO HISTOR Y AND PHYSICAL PJ MANCERAA Start: 08-17-2018 MISCELLANEOUS NURSIN G CARE ORDER (SPECIFY) PJ PUGA Start: 08-17-2018 OT EVAL AND TREAT PJ MANCERAA Start: 08-17-2018 PT EVAL AND TREAT PJ PUGA Start: 08-17-2018 FULL CODE JP GRAHAM UA Start: 08-17-2018 MONITOR PJ GRAHAM UA Start: 08-16-2018 URINE DRUG SCREEN TK YARBROUGH Start: 08-16-2018 Urnls dip stick/tabl et reagent auto microscopy CLARITZA YARBORUGH Start: 08-16-2018 EKG 12-LEAD CLARITZA GIVENS Start: 08-16-2018 ACETAMINOPHEN LEVEL HEIDY YARBROUGH Start: 08-16-2018 Assay of free thyroxine CLARITZA YARBROUGH Start: 08-16-2018 Assay of thyroid sti mulating hormone tsh CLARITZA YARBROUGH Start: 08-16-2018 Blood count complete auto&auto difrntl wbc CLARITZA YARBROUGH Start: 08-16-2018 Comprehensive metabolic panel CLARITZA YARBROUGH Start: 08-16-2018 ETHANOL CLARITZA WA TERS Start: 08-16-2018 SALICYLATE LEVEL HEMANT K YARBROUGH Start: 08-16-2018 TELEMETRY MONITORING PA TRICK YARBROUGH Start: 08-16-2018 VITAL SIGNS CLARITZA WA TERS Start: 08-16-2018 SUICIDE PRECAUTIONS PAT SHAWANDA YARBROUGH Start: 08-06-2018 Ct abdomen & pelvis w/o contrast material CLARITZA YARBROUGH Start: 08-06-2018 Ct head/brain w/o co ntrast material CLARITZA YARBROUGH Start: 08-06-2018 Microscopic urinalysis CLARITZA YARBROUGH Start: 08-06-2018 Urnls dip stick/tabl et rgnt auto w/o microscopy CLARITZA YARBROUGH Start: 08-06-2018 INSERT PERIPHERAL IV PA TRICK YARBROUGH Start: 08-06-2018 EKG 12-LEAD CLARITZA WA TERS Start: 08-06-2018 Blood count complete auto&auto difrntl wbc CLARITZA YARBROUGH Start: 08-06-2018 Comprehensive metabolic panel CLARITZA YARBROUGH Start: 08-06-2018 LACTIC ACID, PLASMA PAT SHAWANDA YARBROUGH Start: 08-06-2018 Prothrombin time HEMANT K YARBROUGH Start: 08-06-2018 Thromboplastin time partial plasma/whole blood CLARITZA YARBROUGH Start: 08-06-2018 Assay of thyroid sti mulating hormone tsh CLARITZA YARBROUGH Start: 08-03-2018 Microscopic urinalysis CLARITZA YARBROUGH Start: 08-03-2018 URINE RT REFLEX TO CULTURE CLARITZA YARBROUGH Start: 06-15-2018 Assay of free thyroxine CLARITZA YARBROUGH Start: 06-15-2018 Assay of thyroid sti mulating hormone tsh CLARITZA YARBROUGH Start: 06-15-2018 Blood count complete auto&auto difrntl wbc CLARITZA YARBROUGH Start: 06-15-2018 Comprehensive metabolic panel CLARITZA YARBROUGH Start: 06-15-2018 Lipid panel CLARITZA WA TERS Start: 05-04-2018 Radiologic exam chest 2 views CLARITZA YARBROUGH Start: 05-04-2018 STREP A DNA PROBE, AMPLIFICATION CLARITZA YARBROUGH Start: 05-04-2018 STREP SCREEN GROUP A THROAT CLARITZA YARBROUGH Start: 03-30-2018 H. PYLORI ANTIGEN PATRI CK YARBROUGH Start: 03-12-2018 Ct abdomen & pelvis w/contrast material CLARITZA YARBROUGH Start: 03-12-2018 Basic metabolic pane l calcium total CLARITZA YARBROUGH Start: 10-14-2017 Basic metabolic 2000 panel - Serum or Plasma CLARITZA YARBROUGH Start: 10-14-2017 CBC WITH AUTO DIFFERENTIAL CLARITZA YARBROUGH Start: 10-14-2017 TSH WITHOUT REFLEX PATR ICK YARBROUGH Start: 10-01-2017 PSA, DIAGNOSTIC CLARITZA YARBROUGH Plan of Treatment Date Care Activity Detail Author Start: 10-18-2023 Bacteria identified in Blood by Culture [facility] Start: 10-18-2023 Superficial Wound Culture Superficial Wound Culture [facility] Bacteria identified in Unspecified specimen by Aerobe culture [facility] Patient Education Cellulitis (Sk in Infection), Adult (DC) [facility] Work Phone: Patient referral [facility] Work Phone: Payers Date Payer Category Payer Self-pay 2023 Unknown [id number] 2015 Medicare [id number] 1959 Medicare [id number] 1959 Private Health Insurance [id number] 1945 Unknown [id number] 2..[id number] 1945 Unknown [id number] 2.840.1.340634.3.579.2.173 1945 Unknown [id number] 2.16.840.1.448094.3.579.2.173 1945 Unknown [id number] 2.16.840.1.870594.3.579.2.173 1945 Unknown [id number] 2.16.840.1.441996.3.579.2.173 1945 Unknown [id number] 2.16.840.1.700302.3.579.2.173 1946 Unknown [id number] 2.16.840.1.060341.3.579.2.173 1946 Unknown [id number] 2.16.840.1.075507.3.579.2.173 1946 Unknown [id number] 2.16.840.1.635553.3.579.2.173 1946 Unknown [id number] 2.16.840.1.133018.3.579.2.173 1945 Unknown [id number] 2.16.840.1.945477.3.579.2.173 1945 Unknown [id number] 2.16.840.1.019448.3.579.2.176 1945 Unknown [id number] 2.16.840.1.569428.3.579.2.647 1945 Unknown [id number] 2.16.840.1.120181.3.579.2.593 1945 Unknown [id number] 2.16.840.1.022479.3.579.2.593 1946 Unknown [id number] 2.16.840.1.340470.3.579.2.593 1946 Unknown [id number] 2.16.840.1.346499.3.579.2.593 1945 Unknown [id number] 2.16.840.1.439375.3.579.2.125 9 Unknown [facility] BC/BS [id number] Unknown HCAP/HFA/FAP Active M [id number] Unknown [id number] 2.16.840.1.505447.3.579.2.531 Social History Date Type Detail Facility Start: 10-18-2023 Tobacco smoking status NHIS Never smoked tobacco (finding) [facility] Start: 1945 Sex Assigned At Male F [facility] Sex Assigned At Sex Assigned At Bir th Aiea [employer] Other Evaluation note 10-18-2023 Note Date & Type Note Facility 10-18-2023 Evaluation note Encounter Date Diagnosis Assessment Notes Sep, Facial swelling (ICD-10 - R22.0) Patient is referred to the emergency room due to failed outpatient therapy of 2 different antibiotics, worsening swelling of his face. [facility] Other Discharge summary note 02-07-2022 Note Date & Type Note Facility 02-07-2022 Note MR#: [id number] I [facility] Pt. Name: Niels Mccullough Jr Admitted: 02/03/2022 Discharged: 02/07/2022 Date of : 1945 Physician: Jennifer Yost MD DISCHARGE SUMMARY FINAL DIAGNOSES: 1. 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 2. Postoperative anemia. 3. Acute kidney injury. 4. Chronic anticoagulation with Coumadin. 5. Constipation. 6. Acute urinary retention. 7. History of deep vein thrombosis, on Coumadin. 8. Supratherapeutic INR. 9. Essential hypertension. HISTORY OF PRESENT ILLNESS AND HOSPITALIZATION COURSE: The patient is a 76-year-old male, who presented to the emergency department at [facility] as a transfer from an outside hospital due to left hip pain. This pain started almost 3 to 4 days prior to his presentation. X-ray at the outside hospital showed failed left cephalomedullary nail with screw cut out to through the femoral head as well as collapse of prior intertrochanteric fracture. The patient was admitted to the medical floor and he was seen by the Orthopedic Services. He had a left total hip arthroplasty done on February 04, 2022. During his hospitalization, he was found to have an acute kidney injury related to prerenal azotemia and he was started on IV fluids. Apparently, he takes Lasix as needed and that was held on discharge. On admission, his INR was supratherapeutic and was given vitamin K preoperatively. Postoperatively, Coumadin was resumed and he was bridged with Lovenox for 3 days. During his hospitalization, he was having constipation and he was given enema. He was also having acute urinary retention, which is related to the constipation and Augustin catheter was inserted. The patient will need to follow up with Urology as an outpatient. The patient was discharged in stable condition to [facility] facility on February 07, 2022. Plan of care was discussed with the son on the day of the discharge. MEDICATIONS ON DISCHARGE: As per the medication reconciliation list. INSTRUCTIONS ON DISCHARGE: Instructed to follow up with PCP within 1 week of discharge to repeat BMP and CBC. He was instructed to follow up with the orthopedic doctors as an outpatient and follow up with Urology as an outpatient. TIME OF DISCHARGE: 43 minutes. Electronically Signed by: Jennifer Yost MD 02/08/2022 03:29 P Jennifer Yost MD Date Dict: 02/07/2022/12:42 P/Jennifer Yost MD Date Trans: 02/07/2022 12:59 P/freddy [id number] cc: Thee Mcguire D.O. [address] [place] [address] José. [facility] [address] [facility] Evaluation note Note Date & Type Note Facility Evaluation note No assessment information [facility] Work Phone: History general Narrative - Reported Note Date & Type Note Facility History general Narrative - Reported Type Medical History prostatism Medical History Hypothyroidism Medical History chronic depression Medical History hypertension Surgical History TONSILLECTOMY Surgical History HEMORRHOIDS Surgical History INGUINAL HERNIA X2 RIGHT AND LE FT Surgical History RIGHT TESTICLE REMOVED/INFECTIO N 2013 Surgical History CHOLECYSTECTOMY/INFECTION Surgical History APPENDECTOMY Surgical History PROSTATE TURP Surgical History FEET INGROWN TOENAILS AND WARTS Hospitalization History SEE ABOVE Hospitalization History ADMITTED FOR LOW SODIUM 2017 [facility] Other Summary Purpose Family History No Family History Records FoundNo Family History Records FoundNo Family History Records FoundNo Family History Records FoundNo Family History Records FoundNo Family History Records Found Advance Directives No Advanced Directives Records Found Advance Directive Response Recorded Date/ Time Advance Directives No September 12:05pm Chief Complaint and Reason for Visit Chief Complaint facial swelling Additional Source Comments (unrecognized sect ion and content) No Status Records FoundNo Status Records FoundNo Status Records FoundNo Status Records FoundNo Status Records FoundNo Status Records Found INFORMATION SOURCE (unrecogn ized section and content) DATE CREATED AUTHOR 09/15/2018 [facility] DATE CREATED AUTHOR AUTHOR'S ORGANIZ ATION 10/03/2018 [facility] DATE CREATED AUTHOR AUTHOR'S ORGANIZ ATION 04/10/2022 [facility] DATE CREATED AUTHOR AUTHOR'S ORGANIZ ATION 03/11/2023 [facility] DATE CREATED AUTHOR AUTHOR'S ORGANIZ ATION 11/01/2023 [facility] DATE CREATED AUTHOR AUTHOR'S ORGANIZ ATION 11/22/2023 [facility] [employer] Care Teams (unrecognized sec tion and content) Team Status: Active Member Role Status Dates NON STAFF Primary Care Provider Active Team Status: Inactive Member Role Status Dates NON STAFF Primary Care Provider Active Michael Amador APRN Emergency Provider Active Goals (unrecognized section and content) Goals may be documented in a n alternate sectionNo Information REASON FOR VISIT (unrecogniz ed section and content) SINUS INFECTION, FACE SWOLLE N, CAN GET ANYTHING OUT OF NOSE, HARD TO BREATHE FOR RECORDS PERTAINING TO PATIENTS WHO ARE OR HAVE BEEN ENROLLED IN A CHEMICAL DEPENDENCY/SUBSTANCEABUSE PROGRAM, SOME INFORMATION MAY BE OMITTED. This clinical summary was aggregated from multiple sources. Caution should be exercised in using it in the provision of clinical care. This summary normalizes information from multiple sources, and as a consequence, information in this document may materially change the coding, format and clinical context of patient data. In addition, data may be omitted in some cases. CLINICAL DECISIONS SHOULD BE BASED ON THE PRIMARY CLINICAL RECORDS. [facility] [employer] [facility] provides no warranty or guarantee of the accuracy or completeness of information in this document.
[2023-11-28 16:28] VITALS: PULSE 75; RESP 21; O2SAT 99
--- NOTE | 2023-11-28 16:28 | ECG_ITS ---
[facility] Test Date: 2023-11-28 Pat Name: ALBIN VILLALTA Department: Room: - Gender: Male Emergency Room Doctor: : 1945 Requested By: TAHIR MCGUIRE Order Number: [id number] Reading MD: MARTHA WHITE Measurements Intervals Delta Rate: 76 P: 50 SD: 244 QRS: 44 QRSD: 106 T: 77 QT: 414 QTc: 444 Interpretive Statements 1100 Sinus rhythm 1570 with occasional ventricular premature complexes 2231 First degree AV block [address] depression 9150 abnormal ECG Compared to ECG 10/30/2022 18:51:26 No significant changes Electronically Signed On 11-30-2023 5:55:16 EST by MARTHA WHITE
[2023-11-28 16:30] VITALS: PULSE 74; RESP 13; O2SAT 99
--- NOTE | 2023-11-28 16:40 | XR_ITS ---
[address] [address] Patient Name: ALBIN VILLALTA MRN: [id number] date: 1945 Sex: M Assigned Patient Location: ER Current Patient Location: ED.MAIN Accession/Order Number: [id number] Exam Date: 11/28/2023 17:10 Report Date: 11/28/2023 17:46 At the request of: AVA QUEEN Procedure: XR acute abdomen series EXAM: XR acute abdomen series HISTORY: Abdominal pain COMPARISON: 08/25/2023 TECHNIQUE: Abdominal X-ray, 1 view FINDINGS: Support devices: None. Bowel: Mild dilatation of the transverse colon with air-fluid level. Stool is noted in the descending colon up to rectum. Follow-up is recommended to evaluate resolution. Additional findings: Degenerative changes of the lumbar spine and dextroscoliosis of the upper lumbar spine. IVC filter is noted overlying L2-L3 vertebral body. XR/XR acute abdomen series IMPRESSION: Mild dilatation of the transverse colon with air-fluid level. Stool is noted in the descending colon up to rectum. Follow-up is recommended to evaluate resolution. Electronically authenticated by: AMISH GUPTA Date: 11/28/2023 17:46
[2023-11-28 17:22] LABS: Alanine Aminotransferase 14 U/L (16-63); Albumin Globulin Ratio 0.8; Albumin Level 3.4 g/dL (3.4-5.0); Alkaline Phosphatase 92 U/L (46-116); Anion Gap 6.9; Aspartate Amino Transferase 14 U/L (15-37); BUN Creatinine Ratio 14.7; Bilirubin Total 0.3 mg/dL (0.2-1.0); Calcium 8.5 mg/dL (8.5-10.1); Carbon Dioxide 27.7 mmol/L (21.0-32.0); Chloride 102 mmol/L (98-107); Estimated GFR (African America 42 (>=60); Estimated GFR (Non-African Ame 34 (>=60); Globulin 4.2 g/dL; Glucose 109 mg/dL (74-106); Potassium 3.6 mmol/L (3.5-5.1); Sodium 133 mmol/L (136-145); Total Protein 7.6 g/dL (6.4-8.2)
[2023-11-28 17:26] LABS: Basophils Percent Auto 0.3 % (0.2-2.0); Eosinophils Absolute Auto 0.3 10^3/uL (0.0-0.7); Eosinophils Percent Auto 4.8 % (0.9-7.0); Hemoglobin 9.1 g/dL (14.0-18.0); Immature Granulocytes Abs Auto 0.01 10^3/uL (0.00-0.03); Immature Granulocytes Pct Auto 0.2 % (0.0-0.5); Lymphocytes Percent Auto 16.1 % (20.5-60.0); Mean Corpuscular HGB Conc 31.4 g/dL (29.9-35.2); Mean Corpuscular Hemoglobin 30.3 pg (25.9-34.0); Mean Corpuscular Volume 96.7 fL (80.0-94.0); Monocytes Absolute Auto 0.6 10^3/uL (0.3-0.8); Monocytes Percent Auto 10.7 % (1.7-12.0); Neutrophils Absolute Auto 4.1 10^3/uL (1.4-6.5); Neutrophils Percent Auto 67.9 % (43.0-75.0); Platelet Count 164 10^3/uL (150-450); Red Cell Distribution Width 14.2 % (11.0-15.0)
[2023-11-28 17:27] LABS: Bilirubin Urine NEGATIVE (NEGATIVE); Blood Urine NEGATIVE (NEGATIVE); Clarity Urine CLEAR (CLEAR); Color Urine LT. YELLOW (YELLOW); Glucose Urine UA NEGATIVE (NEGATIVE); Ketones Urine NEGATIVE (NEGATIVE); Leukocyte Esterase Urine NEGATIVE (NEGATIVE); Nitrite Urine NEGATIVE (NEGATIVE); Protein Urine TRACE mg/dL (NEG/TRACE); Specific Gravity Urine <=1.005 (1.005-1.025); Urobilinogen Urine 0.2 EU/dL (0.2-1.0)
[2023-11-28 17:32] LABS: Urine Microscopic Indicated NO
[2023-11-28 18:05] VITALS: BP 180/90
== END 2023-11-28 18:09 | disposition home or self-care (01) ==
PROVIDERS: Emergency Provider Emergency Medicine Emergency Medical Services; PCP Internal Medicine
DX: K59.00 Constipation, unspecified (principal); Z79.899 Other long term (current) drug therapy; Z79.01 Long term (current) use of anticoagulants; Z79.890 Hormone replacement therapy
CPT/HCPCS: 36415; 74022; 80053; 81003; 85025; 93005; 99285

== ENCOUNTER 2024-03-21 08:19 | Emergency (ER) | payer MEDICARE, SELFPAY ==
[2024-03-21 08:22] VITALS: BP 160/77; PULSE 90; TEMP 36.8; O2SAT 98; BMI 27.7
--- OUTSIDE RECORDS SUMMARY | 2024-03-21 08:24 | XMS_ITS | CCD ---
Author Organization [facility] Care Team Providers Care Packager Name Role Phone CLARITZA YARBROUGH Coleman Unavailable Unavailable NADERER, RUBEN SHIRA Unavailable [...] Unavailable CINDY, ISIDRO FRANKY Unavailable Unavailable FORRESTERALBERT L Unavailable Unavailab le EDD, AHMED Unavailable Unavailable EDD, AHMED Unavailable Unavailable CINDY, ISIDRO FRANKY Unavailable Unavailable UNKNOWN, PHYSICIAN Referring Unavailable CALEB, INOCENCIA Admitting Unavailable JENNIFER YOST Attending Unavailable THEE MCGUIRE Primary Care Unavailable MAYNOR, DR HARO Primary Care Unavailable EDMUND POWELL Admitting Unavailable EDMUND POWELL Attending Unavailable EDMUND POWELL Consulting Unavailable SARY RIGGS Consulting Unavailable DEVENDRA GUTIERREZ Consulting Unavailable MAYNOR, DR HARO Primary Care Unavailable PAY ., DR CASANOVA Admitting Unavailable PAY ., DR CASANOVA Attending Unavailable PAY ., DR CASANOVA Consulting Unavailable MELANIONE, DR HARO Primary Care Unavailable VALONE, DR HARO Admitting Unavailable VALONE, DR HARO Attending Unavailable VALONE, DR HARO Primary Care Unavailable HAY ., DR RICKS Admitting Unavailable HAY ., DR RICKS Attending Unavailable WESSON, DR MIKA Romero Consulting Unavailable ALEXIS ., JUAN FELDER Consulting UnavailJOSSELYN Cameron Consulting Unavailable NON STAFF Primary Care Provider UnavailLINO Drew Emergency Provider MarjorieBrittany Unavailable Michael Amador Attending Unavailable Michael Amador Admitting Unavailable NON STAFF Primary Care Unavailable DEBRA MUNGUIA Attending Unavailable DEBRA MUNGUIA Attending Unavailable Allergies Allergy Classification Reported Allergen(s) Allergy Type Date of Onset Reaction(s) Facility (3 sources) Aspirin Drug Allergy 06-24-20 13 Unknown Reaction [facility] Repository (3 sources) Cephalexin Drug Allergy 06-24-20 13 Unknown [facility] Repository (3 sources) Codeine Drug Allergy 06-24-20 13 Unknown Reaction [facility] Repository (2 sources) Erythromycin Drug Allergy 11-23-19 19 Unknown Reaction [facility] Repository (2 sources) Iothalamate Drug Allergy 06-24-20 13 [facility] Repository (3 sources) Minocycline Drug Allergy 06-24-20 13 Unknown Reaction [facility] Repository (1 source) Penicillin Drug Allergy 11-23-19 19 [facility] Repository (2 sources) Procyclidine Drug Allergy 06-24-20 13 [facility] Repository (1 source) Sulfamethoxazole / Trimethoprim Drug Allergy 11-23-19 19 [facility] Repository (3 sources) Sulfonamides (Antibiotic) Drug allergy (disorder) 04-27-20 17 Unknown Reaction [facility] Repository (3 sources) Tetracycline Drug Allergy 06-24-20 13 Unknown Reaction [facility] Repository (2 sources) Penicillins Drug allergy (disorder) 06-24-20 13 Swelling [facility] Repository (1 source) E.E.S. Drug allergy (disorder) 06-24-20 13 [facility] Repository (3 sources) Cephalexin; Translations: [cephalexin] Drug Allergy 10-18-20 Unknown Reaction, Unknown [facility] (3 sources) Indomethacin; Translations: [indomethacin] Drug Allergy 10-18-20 Unknown Reaction, Unknown [facility] (1 source) Aspirin Drug Allergy Unknown [facility] Other (1 source) Codeine Drug Allergy Unknown [facility] Other (1 source) Erythromycin Drug Allergy Unknown [facility] Other (1 source) Metoclopramide Drug Allergy Unknown [facility] Other (1 source) Minocycline Drug Allergy Unknown [facility] Other (1 source) Penicillin G Drug Allergy Unknown [facility] Other (1 source) Sulfamethoxazole / Trimethoprim Drug Allergy Unknown [facility] Other (1 source) Tetracycline Drug Allergy Unknown [facility] Other (1 source) Aspirin Drug Allergy 10-18-20 [facility] Repository (1 source) Codeine Drug Allergy 10-18-20 [facility] Repository (1 source) Erythromycin Drug Allergy 10-18-20 [facility] Repository (1 source) Metoclopramide Drug Allergy 10-18-20 [facility] Repository (1 source) Minocycline Drug Allergy 10-18-20 [facility] Repository (1 source) Penicillin Drug Allergy 10-18-20 [facility] Repository (1 source) Penicillins Drug allergy (disorder) 10-18-20 [facility] Repository (1 source) Sulfamethoxazole Drug Allergy 10-18-20 [facility] Repository (1 source) Sulfonamides (Antibiotic) Drug allergy (disorder) 10-18-20 [facility] Repository (1 source) Tetracycline Drug Allergy 10-18-20 [facility] Repository (1 source) Trimethoprim Drug Allergy 10-18-20 [facility] Repository Medications Current Medications Medication Drug Class(es) [...] 09-10-2022 Episodic Other aftercare (3 sources) 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; Translations: [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] Onset: 03-12-2018 Episodic Other aftercare (1 source) terminal carman (current) use of anticoagulants; Translations: [JAIL CURRNT USE ANTICOAGULANTS] Onset: 10-31-2022 Episodic Other and unspecified benign neoplasm (1 source) Personal history of colonic polyps; Translations: [PERSONAL HISTORY OF COLONIC POLYPS] Onset: 09-11-2022 Episodic Other fractures (1 source) Collapsed vertebra, not elsewhere classified, lumbar region, subsequent encounter for fracture with routine healing; Translations: [COLLAPSED VERT NEC LUMB SUB RTN HL] Onset: 05-15-2022 Episodic Other gastrointestinal disorders (1 source) Constipation, [...] aPTT Coag (PPP) [Time] 31.2 s 25.1-36.5 [facility] Comment on above: A hematocrit value g reater than 55% may lead to inaccurate results in coagulation testing. Patients having hematocrit values >55% require a special collection tube for coagulation studies. Please contact the laboratory at [phone] for redraw instructions. Alanine aminotransferase [En zymatic activity/volume] in Serum or PlasmaOrdered By: Michael Amador on 10-18-2023 ALT [Catalytic activity/Vol] 9 U/L 7-52 [facility] Albumin [Mass/volume] in Ser um or Plasma by Bromocresol green (BCG) dye binding methoOrdered By: Michael Amador on 10-18-2023 Albumin BCG dye [Mass/Vol] 3.9 g/dL 3.5-5.7 [facility] Alkaline phosphatase [Enzyma tic activity/volume] in Serum or PlasmaOrdered By: Michael Amador on 10-18-2023 ALP [Catalytic activity/Vol] 65 U/L 34-104 [facility] Aspartate aminotransferase [ Enzymatic activity/volume] in Serum or PlasmaOrdered By: Michael Amador on 10-18-2023 AST [Catalytic activity/Vol] 12 U/L 13-39 [facility] Basophils Auto (Bld) [#/Vol] Ordered By: Michael Amador on 10-18-2023 Basophils (Bld) [#/Vol] 0.0 10*3/uL 0.0-0.2 [facility] Basophils/100 WBC Auto (Bld) Ordered By: Michael Amador on 10-18-2023 Basophils/100 WBC (Bld) 0.3 % . [facility] Bilirubin.total [Mass/volume ] in Serum or PlasmaOrdered By: Michael Amador on 10-18-2023 Bilirubin [Mass/Vol] 0.5 mg/dL 0.3-1.0 [facility] Blood Cultureon 10-18-2023 Bacteria identified Cx Nom (Bld) NO GROWTH 5 DAYS PERFORMED BY: [place] [address] PATHOLOGIST STATEMENT PROCESSOR DAVID VERA M.D. [facility] Comment on above: Performed By: #### P TT, CUBLD, CBC, LACTIC, CMP, PT #### [facility] [address] [place] [address] Bacteria identified Cx Nom (Bld) NO GROWTH 5 DAYS PERFORMED BY: [place] [address] PATHOLOGIST STATEMENT PROCESSOR DAVID VERA M.D. [facility] Comment on above: Performed By: #### P TT, CUBLD, CBC, LACTIC, CMP, PT #### [facility] [address] [place] [address] [facility] [address] sinus wo conon 10-18-2023 CT sinus wo con [facility] [address] [place] [id number] Scan Report Signed Patient: Niels Mccullough JR MR#: [id number] : 1945 Acct:[id number] Age/Sex: 77 / M ADM Date: 10/18/23 Loc: ER Room: Type: [facility] ER Attending Dr: Copies to: Michael Amador [...] Rachel Briseno M.D.10/18/2023 1:17 PM Dictation Location: [place] [address] Transcribed By: [facility] 10/18/231316 Dictated By: Rachel Briseno MD 10/18/231311 Signed By: 10/18/23 1317 [facility] Calcium [Mass/volume] in Ser um or PlasmaOrdered By: Michael Amador on 10-18-2023 Calcium [Mass/Vol] 9.0 mg/dL 8.6-10.[address] [facility] Carbon dioxide, total [Moles /volume] in Serum or PlasmaOrdered By: Michael Amador on 10-18-2023 CO2 [Moles/Vol] 23.9 mmol/L 21.0-31.0 [facility] Chloride [Moles/volume] in S beth or PlasmaOrdered By: Michael Amador on 10-18-2023 Chloride [Moles/Vol] 105 mmol/L 98-107 [facility] Complete Blood Count Auto Di ffon 10-18-2023 Basophils (Bld) [#/Vol] 0.0 10*3/uL Normal 0.0-0.2 [facility] Comment on above: Result Comment: PERF ORMED BY: [place] [address] PATHOLOGIST STATEMENT PROCESSOR DAVID VERA M.D. Performed By: #### P TT, CUBLD, CBC, LACTIC, CMP, PT #### [address] Basophils/100 WBC (Bld) 0.3 % Normal . [facility] Comment on above: Performed By: #### P TT, CUBLD, CBC, LACTIC, CMP, PT #### [facility] [address] [place] [address] Eosinophils (Bld) [#/Vol] 0.1 10*3/uL Normal 0.0-0.45 [facility] Comment on above: Performed By: #### P TT, CUBLD, CBC, LACTIC, CMP, PT #### [address] Eosinophils/100 WBC (Bld) 0.9 % Normal . [facility] Comment on above: Performed By: #### P TT, CUBLD, CBC, LACTIC, CMP, PT #### [address] Erythrocyte distribution width (RBC) [Ratio] 14.9 % High 12.0-14.8 [facility] Comment on above: Performed By: #### P TT, CUBLD, CBC, LACTIC, CMP, PT #### [address] Hematocrit (Bld) [Volume fraction] 29.9 % Low 38.8-50.0 [facility] Comment on above: Performed By: #### P TT, CUBLD, CBC, LACTIC, CMP, PT #### [address] Hemoglobin (Bld) [Mass/Vol] 10.2 g/dL Low 13.0-17.0 [facility] Comment on above: Performed By: #### P TT, CUBLD, CBC, LACTIC, CMP, PT #### [address] Lymphocytes (Bld) [#/Vol] 0.9 10*3/uL Low 1.00-4.8 [facility] Comment on above: Performed By: #### P TT, CUBLD, CBC, LACTIC, CMP, PT #### [address] Lymphocytes/100 WBC (Bld) 10.2 % Normal . [facility] Comment on above: Performed By: #### P TT, CUBLD, CBC, LACTIC, CMP, PT #### [address] MCH (RBC) [Entitic mass] 32.4 pg Normal 27.5-35.2 [facility] Comment on above: Performed By: #### P TT, CUBLD, CBC, LACTIC, CMP, PT #### [address] MCV (RBC) [Entitic vol] 94.7 fL Normal 83.5-101 [facility] Comment on above: Performed By: #### P TT, CUBLD, CBC, LACTIC, CMP, PT #### [address] Mean Corpuscular HGB Conc 34.2 g/dL Normal 32.5-35.6 [facility] Comment on above: Performed By: #### P TT, CUBLD, CBC, LACTIC, CMP, PT #### [address] Monocytes (Bld) [#/Vol] 0.9 10*3/uL High 0.0-0.8 [facility] Comment on above: Performed By: #### P TT, CUBLD, CBC, LACTIC, CMP, PT #### [address] Monocytes/100 WBC (Bld) 19.23 % Normal 0.00-20.00 [facility] Comment on above: Performed By: #### P TT, CUBLD, CBC, LACTIC, CMP, PT #### [address] Monocytes/100 WBC (Bld) 9.6 % Normal . [facility] Comment on above: Performed By: #### P TT, CUBLD, CBC, LACTIC, CMP, PT #### [address] Neutrophils (Bld) [#/Vol] 7.2 10*3/uL Normal 1.8-7.7 [facility] Comment on above: Performed By: #### P TT, CUBLD, CBC, LACTIC, CMP, PT #### [address] Neutrophils/100 WBC (Bld) 79.0 % Normal . [facility] Comment on above: Performed By: #### P TT, CUBLD, CBC, LACTIC, CMP, PT #### [address] NRBC% 0.0 /100{WBC} Normal 0-0.5 [facility] Comment on above: Performed By: #### P TT, CUBLD, CBC, LACTIC, CMP, PT #### [address] Platelet mean volume (Bld) [Entitic vol] 7.0 fL Normal 6.6-10.1 [facility] Comment on above: Performed By: #### P TT, CUBLD, CBC, LACTIC, CMP, PT #### [facility] [address] Platelets (Bld) [#/Vol] 202 10*3/uL Normal 150-450 [facility] Comment on above: Performed By: #### P TT, CUBLD, CBC, LACTIC, CMP, PT #### [facility] [address] RBC (Bld) [#/Vol] 3.15 10*6/uL Low 3.90-5.60 [facility] Comment on above: Performed By: #### P TT, CUBLD, CBC, LACTIC, CMP, PT #### [facility] [address] WBC (Bld) [#/Vol] 9.1 10*3/uL Normal 4.1-10.[address] [facility] Comment on above: Performed By: #### P TT, CUBLD, CBC, LACTIC, CMP, PT #### [facility] [address] [place] [address] Comprehensive Metabolic Pane kalia 10-18-2023 Albumin [Mass/Vol] 3.9 g/dL Normal 3.5-5.[address] [facility] Comment on above: Performed By: #### P TT, CUBLD, CBC, LACTIC, CMP, PT #### [address] Albumin/Globulin [Mass ratio] 1.1 {ratio} Normal [facility] Comment on above: Performed By: #### P TT, CUBLD, CBC, LACTIC, CMP, PT #### [facility] [address] [place] [address] ALP [Catalytic activity/Vol] 65 U/L Normal 34-104 [facility] Comment on above: Performed By: #### P TT, CUBLD, CBC, LACTIC, CMP, PT #### [address] ALT [Catalytic activity/Vol] 9 U/L Normal 7-52 [facility] Comment on above: Performed By: #### P TT, CUBLD, CBC, LACTIC, CMP, PT #### [facility] [address] [place] [address] Anion gap [Moles/Vol] 9.8 mmol/L Normal 6.0-15.0 [facility] Comment on above: Performed By: #### P TT, CUBLD, CBC, LACTIC, CMP, PT #### [address] AST [Catalytic activity/Vol] 12 U/L Low 13-39 [facility] Comment on above: Performed By: #### P TT, CUBLD, CBC, LACTIC, CMP, PT #### [address] Bilirubin [Mass/Vol] 0.5 mg/dL Normal 0.3-1.0 [facility] Comment on above: Performed By: #### P TT, CUBLD, CBC, LACTIC, CMP, PT #### [address] Calcium [Mass/Vol] 9.0 mg/dL Normal 8.6-10.[address] [facility] Comment on above: Performed By: #### P TT, CUBLD, CBC, LACTIC, CMP, PT #### [address] Chloride [Moles/Vol] 105 mmol/L Normal 98-107 [facility] Comment on above: Performed By: #### P TT, CUBLD, CBC, LACTIC, CMP, PT #### [address] CO2 [Moles/Vol] 23.9 mmol/L Normal 21.0-31.0 [facility] Comment on above: Performed By: #### P TT, CUBLD, CBC, LACTIC, CMP, PT #### [address] Creatinine [Mass/Vol] 1.98 mg/dL High 0.70-1.30 [facility] Comment on above: Performed By: #### P TT, CUBLD, CBC, LACTIC, CMP, PT #### [address] [place] [address] [place] Creatinine Clr Calc Pharmacy 35.87 [facility] Comment on above: Result Comment: PERF ORMED BY: [place] [address] PATHOLOGIST STATEMENT PROCESSOR DAVID VERA M.D. Performed By: #### P TT, CUBLD, CBC, LACTIC, CMP, PT #### [address] GFR/1.73 sq M.predicted MDRD (S/P/Bld) [Vol rate/Area] 34.364 mL/min/{1.73_m2} [facility] Comment on above: Performed By: #### P TT, CUBLD, CBC, LACTIC, CMP, PT #### [address] Globulin (S) [Mass/Vol] 3.7 g/dL [facility] Comment on above: Performed By: #### P TT, CUBLD, CBC, LACTIC, CMP, PT #### [address] Glucose [Mass/Vol] 114 mg/dL High 70-[address] [facility] Comment on above: Result Comment: [facility] Glucose Reference Range is dependent on time and content of last meal. Glucose of more than 200 mg/dL in a nonstressed, ambulatory subject supports the diagnosis of Diabetes Mellitus. ADA recommended reference range Performed By: #### P TT, CUBLD, CBC, LACTIC, CMP, PT #### [address] Potassium [Moles/Vol] 3.7 mmol/L Normal 3.5-5.1 [facility] Comment on above: Performed By: #### P TT, CUBLD, CBC, LACTIC, CMP, PT #### [address] Protein [Mass/Vol] 7.6 g/dL Normal 6.4-8.[address] [facility] Comment on above: Performed By: #### P TT, CUBLD, CBC, LACTIC, CMP, PT #### [facility] [address] [place] [address] [place] Sodium [Moles/Vol] 135 mmol/L Low 136-[address] [facility] Comment on above: Performed By: #### P TT, CUBLD, CBC, LACTIC, CMP, PT #### [facility] [address] [place] [address] [place] Urea nitrogen [Mass/Vol] 31 mg/dL High 7-25 [facility] Comment on above: Performed By: #### P TT, CUBLD, CBC, LACTIC, CMP, PT #### [facility] [address] [place] [address] [place] Creatinine [Mass/volume] in Serum or PlasmaOrdered By: Michael Amador on 10-18-2023 Creatinine [Mass/Vol] 1.98 mg/dL 0.70-1.30 [facility] ECG 12 lead ECGon 10-18-2023 ECG 12 lead ECG [facility] [address] [place] [address] [place] [address] Electrocardiograph Report Signed Patient: Niels Mccullough JR MR#: [id number] : 1945 Acct:[id number] Age/Sex: 77 / M ADM Date: 10/18/23 Loc: ER Room: Type: [facility] ER Attending Dr: Ordering Provider: Michael [...] MUS Signed By Jayesh Alex MD 10/18/23 0545 Normal [facility] Eosinophils Auto (Bld) [#/Vo l]Ordered By: Michael Amador on 10-18-2023 Eosinophils (Bld) [#/Vol] 0.1 10*3/uL 0.0-0.45 [facility] Eosinophils/100 WBC Auto (Bl d)Ordered By: Michael Amador on 10-18-2023 Eosinophils/100 WBC (Bld) 0.9 % . [facility] Erythrocyte distribution wid th Auto (RBC) [Ratio]Ordered By: Michael Amador on 10-18-2023 Erythrocyte distribution width (RBC) [Ratio] 14.9 % 12.0-14.8 [facility] Globulin Calc (S) [Mass/Vol] Ordered By: Michael Amador on 10-18-2023 Globulin (S) [Mass/Vol] 3.7 g/dL [facility] Glucose [Mass/volume] in Ser um or PlasmaOrdered By: Michael Amador on 10-18-2023 Glucose [Mass/Vol] 114 mg/dL 70-[address] [facility] Comment on above: ADA recommended refe rence rangeRandom Glucose Reference Range is dependent on time and content of last meal. Glucose of more than 200 mg/dL in a nonstressed, ambulatory subject supports the diagnosis of Diabetes Mellitus. Hematocrit Auto (Bld) [Volum e fraction]Ordered By: Michael Amador on 10-18-2023 Hematocrit (Bld) [Volume fraction] 29.9 % 38.8-50.0 [facility] Hemoglobin [Mass/volume] in BloodOrdered By: Michael Amador 10-18-2023 Hemoglobin (Bld) [Mass/Vol] 10.2 g/dL 13.0-17.0 [facility] INR in Platelet poor plasma by Coagulation assayOrdered By: Michael Amador on 10-18-2023 INR Coag (PPP) [Relative time] 1.4 {INR} [facility] Comment on above: INR Therapeutic Rang e [...] on 10-18-2023 Lactate [Moles/Vol] 0.7 mmol/L 0.5-2.2 [facility] Lactic Acidon 10-18-2023 Lactate [Moles/Vol] 0.7 mmol/L Normal 0.5-2.2 [facility] Comment on above: Result Comment: PERF ORMED BY: [facility] [address] [place] [address] PATHOLOGIST STATEMENT PROCESSOR DAVID VERA M.D. Performed By: #### P TT, CUBLD, CBC, LACTIC, CMP, PT #### [facility] [address] [place] [address] Leukocytes [#/volume] correc alexys for nucleated erythrocytes in Blood by Automated counOrdered By: Michael Amador on 10-18-2023 WBC corrected for nucl RBC Auto (Bld) [#/Vol] 9.1 10*3/uL 4.1-10.5 [facility] Lymphocytes Auto (Bld) [#/Vo l]Ordered By: Michael Amador on 10-18-2023 Lymphocytes (Bld) [#/Vol] 0.9 10*3/uL 1.00-4.8 [facility] Lymphocytes/100 WBC Auto (Bl d)Ordered By: Michael Amador on 10-18-2023 Lymphocytes/100 WBC (Bld) 10.2 % . [facility] MCH Auto (RBC) [Entitic mass ]Ordered By: Michael Amador on 10-18-2023 MCH (RBC) [Entitic mass] 32.4 pg 27.5-35.2 [facility] MCHC Auto (RBC) [Mass/Vol]Or dered By: Michael Amador on 10-18-2023 MCHC (RBC) [Mass/Vol] 34.2 g/dL 32.5-35.6 [facility] MCV Auto (RBC) [Entitic vol] Ordered By: Michael Amador on 10-18-2023 MCV (RBC) [Entitic vol] 94.7 fL 83.5-101 [facility] Monocyte distribution width [Entitic volume] in Blood by AutomatedOrdered By: Michael Amador on 10-18-2023 Monocyte distribution width Auto (Bld) [Entitic vol] 19.23 % 0.00-20.00 [facility] Monocytes Auto (Bld) [#/Vol] Ordered By: Michael Amador on 10-18-2023 Monocytes (Bld) [#/Vol] 0.9 10*3/uL 0.0-0.8 [facility] Monocytes/100 WBC Auto (Bld) Ordered By: Michael Amador on 10-18-2023 Monocytes/100 WBC (Bld) 9.6 % . [facility] Neutrophils Auto (Bld) [#/Vo l]Ordered By: Michael Amador on 10-18-2023 Neutrophils (Bld) [#/Vol] 7.2 10*3/uL 1.8-7.7 [facility] Neutrophils/100 WBC Auto (Bl d)Ordered By: Michael Amador on 10-18-2023 Neutrophils/100 WBC (Bld) 79.0 % . [facility] No Panel InformationOrdered By: Michael Amador on 10-18-2023 Estimated GFR (CKD-EPI) 34.364 mL/Min [facility] Creatinine Clearance (Chem 35.87 [facility] Nucleated erythrocytes [Pres ence] in Blood by Automated countOrdered By: Michael Amador on 10-18-2023 Nucleated RBC Auto Ql (Bld) 0.0 /100{WBC} 0-0.5 [facility] Partial Thromboplastin Timeo n 10-18-2023 aPTT Coag (Bld) [Time] 31.2 s Normal 25.1-36.5 [facility] Comment on above: Result Comment: A he matocrit value greater than 55% may lead to inaccurate results in coagulation testing. Patients having hematocrit values >55% require a special collection tube for coagulation studies. Please contact the laboratory at [phone] for redraw instructions. PERFORMED BY: [facility] [address] PATHOLOGIST STATEMENT PROCESSOR JIANLAN SUN M.D. Performed By: #### P TT, CUBLD, CBC, LACTIC, CMP, PT #### [facility] [address] [place] [id number] [facility] Platelet mean volume Auto (B ld) [Entitic vol]Ordered By: Michael Amador on 10-18-2023 Platelet mean volume (Bld) [Entitic vol] 7.0 fL 6.6-10.1 [facility] Platelets Auto (Bld) [#/Vol] Ordered By: Michael Amador on 10-18-2023 Platelets (Bld) [#/Vol] 202 10*3/uL 150-450 [facility] Potassium [Moles/volume] in Serum or PlasmaOrdered By: Michael Amador on 10-18-2023 Potassium [Moles/Vol] 3.7 mmol/L 3.5-5.1 [facility] Protein [Mass/volume] in Ser um or PlasmaOrdered By: Michael Amador on 10-18-2023 Protein [Mass/Vol] 7.6 g/dL 6.4-8.[address] [facility] Prothrombin Time INRon 10-18 INR Coag (PPP) [Relative time] 1.4 {INR} Normal [facility] Comment on above: Result Comment: INR Therapeutic [...] TT, CUBLD, CBC, LACTIC, CMP, PT #### [facility] [address] [place] [address] [place] PT Coag (PPP) [Time] 16.6 s High 9.0-12.9 [facility] Comment on above: Result Comment: A he matocrit value greater than 55% may lead to inaccurate results in coagulation testing. Patients having hematocrit values >55% require a special collection tube for coagulation studies. Please contact the laboratory at [phone] for redraw instructions. Performed By: #### P TT, CUBLD, CBC, LACTIC, CMP, PT #### [facility] [address] Prothrombin time (PT)Ordered By: Michael Amador on 10-18-2023 PT Coag (PPP) [Time] 16.6 s 9.0-12.9 [facility] Comment on above: A hematocrit value g reater than 55% may lead to inaccurate results in coagulation testing. Patients having hematocrit values >55% require a special collection tube for coagulation studies. Please contact the laboratory at [phone] for redraw instructions. RBC Auto (Bld) [#/Vol]Ordere d By: Michael Amador on 10-18-2023 RBC (Bld) [#/Vol] 3.15 10*6/uL 3.90-5.60 [facility] Serum or plasma albumin/glob ulin mass ratioOrdered By: Michael Amador on 10-18-2023 Albumin/Globulin [Mass ratio] 1.1 {ratio} [facility] Serum or plasma anion gap de terminationOrdered By: Michael Amador on 10-18-2023 Anion gap [Moles/Vol] 9.8 mmol/L 6.0-15.0 [facility] Sodium [Moles/volume] in Ser um or PlasmaOrdered By: Michael Amador on 10-18-2023 Sodium [Moles/Vol] 135 mmol/L 136-[address] [facility] Superficial Wound Cultureon 10-18-2023 Superficial Wound [...] EXTENDED SPECTRUM BETA-LACTAMASE TFG = THYMIDINE-DEPENDENT STRAIN AJMIE = BETA-LACTAMASE POSITIVE IB = INDUCIBLE BETA-LACTAMASE. APPEARS IN PLACE OF 'S' WITH SPECIES KNOWN TO POSSESS INDUCIBLE BETA-LACTAMASES. POTENTIALLY THEY MAY BECOME RESISTANT TO ALL B-LACTAM DRUGS. PERFORMED BY: [facility] [address] [place] [address] PATHOLOGIST STATEMENT PROCESSOR DAVID VERA M.D. Normal [facility] Comment on above: Performed By: #### C USUP #### [address] Urea nitrogen [Mass/volume] in Serum or PlasmaOrdered By: Michael Amador on 10-18-2023 Urea nitrogen [Mass/Vol] 31 mg/dL 7- [facility] WBC Auto (Bld) [#/Vol]Ordere d By: Michael Amador on 10-18-2023 WBC (Bld) [#/Vol] 9.1 10*3/uL 4.1-10.[address] [facility] BNPon 10-30-2022 Natriuretic peptide B (Bld) [Mass/Vol] 4309.0 pg/mL Critically high <=1,800.0 [facility] Comment on above: Performed By: #### C BC #### [facility] [address] [address] [address] Kelsea Guillermo CBC AUTO DIFFon 10-30-2022 BASO # 0.0 103/ul Normal 0.0-0.1 [facility] Comment on above: Performed By: #### C BC #### [facility] [address] [address] [address] Kelsea Guillermo Basophils/100 WBC (Bld) 0.4 % Normal 0.2-2.0 [facility] Comment on above: Performed By: #### C BC #### [facility] [address] [address] [address] Kelsea Guillermo EO # 0.5 103/ul Normal 0.0-0.7 [facility] Comment on above: Performed By: #### C BC #### [facility] [address] [place] [address] Dr. Kelsea Guillermo Eosinophils/100 WBC (Bld) 6.4 % Normal 0.9-7.0 [facility] Comment on above: Performed By: #### C BC #### [facility] [address] [place] [address] Dr. Kelsea Guillermo Erythrocyte distribution width (RBC) [Ratio] 13.3 % Normal 11.0-15.0 [facility] Comment on above: Performed By: #### C BC #### [facility] [address] [place] [address] Dr. Kelsea Guillermo Hematocrit (Bld) [Volume fraction] 33.9 % Critically low 42.0-54.0 [facility] Comment on above: Performed By: #### C BC #### [facility] [address] [place] [address] Dr. Kelsea Guillermo Hemoglobin (Bld) [Mass/Vol] 11.6 g/dL Critically low 14.0-18.0 [facility] Comment on above: Performed By: #### C BC #### [facility] [address] [place] [address] Dr. Kelsea Guillermo IG # 0.02 10e3/ul Normal 0.00-0.03 [facility] Comment on above: Performed By: #### C BC #### [facility] [address] [place] [address] Dr. Kelsea Guillermo IG % 0.3 % Normal 0.0-0.5 [facility] Comment on above: Performed By: #### C BC #### [facility] [address] [place] [address] Dr. Kelsea Guillermo LYMPH # 1.0 103/ul Critically low 1.2-3.8 [facility] Comment on above: Performed By: #### C BC #### [facility] [address] [place] [address] Dr. Kelsea Guillermo Lymphocytes/100 WBC (Bld) 14.0 % Critically low 20.5-60.0 [facility] Comment on above: Performed By: #### C BC #### [facility] [address] [place] [address] Dr. Kelsea Guillermo MANUAL DIFF REQ NO Normal [facility] Comment on above: Performed By: #### C BC #### [facility] [address] [place] [address] Dr. Kelsea Guillermo MCH (RBC) [Entitic mass] 32.5 pg Normal 25.9-34.0 [facility] Comment on above: Performed By: #### C BC #### [facility] [address] [place] [address] Dr. Kelsea Guillermo MCHC (RBC) [Mass/Vol] 34.2 g/dL Normal 29.9-35.2 [facility] Comment on above: Performed By: #### C BC #### [facility] [address] [place] [address] Dr. Kelsea Guillermo MCV (RBC) [Entitic vol] 95.0 fL Critically high 80.0-94.0 [facility] Comment on above: Performed By: #### C BC #### [facility] [address] [place] [address] Dr. Kelsea Guillermo MONO # 0.6 103/ul Normal 0.3-0.8 [facility] Comment on above: Performed By: #### C BC #### [facility] [address] [place] [address] Dr. Kelsea Guillermo Monocytes/100 WBC (Bld) 8.7 % Normal 1.7-12.0 [facility] Comment on above: Performed By: #### C BC #### [facility] [address] [place] [address] Dr. Kelsea Guillermo NEUT # 5.0 103/ul Normal 1.4-6.5 [facility] Comment on above: Performed By: #### C BC #### [facility] [address] [place] [address] Dr. Kelsea Guillermo Neutrophils/100 WBC (Bld) 70.2 % Normal 43.0-75.0 [facility] Comment on above: Performed By: #### C BC #### [facility] [address] [place], [place] [address] Dr. Kelsea Guillermo Platelet mean volume (Bld) [Entitic vol] 9.1 fL Critically low 9.5-13.5 [facility] Comment on above: Performed By: #### C BC #### [facility] [address] [place], [place] [address] Dr. Kelsea Guillermo PLT 171 103/ul Normal 150-450 [facility] Comment on above: Performed By: #### C BC #### [facility] [id number] Kelsea Guillermo RBC 3.57 106/ul Critically low 4.70-6.10 [facility] Comment on above: Performed By: #### C BC #### [facility] [address] [address] [address] Kelsea Guillermo WBC 7.2 103/ul Normal 4.0-11.0 [facility] Comment on above: Performed By: #### C BC #### [facility] [address] HEAD WO CONon [...] Truong ELAM Date: 2022-10-30 21:14 Normal [facility] Covid-19 PCR (CVDTBH)on SARS-CoV-2 (COVID-19) RNA SHALA+probe Ql (Unsp spec) Not detected Normal NOT DETECTED [facility] Comment on above: Result Comment: When diagnostic [...] for this test is supported by the [place] of Health and Human Service's declaration that [...] longer be used). Performed By: #### [facility] #### [facility] [address] [place] [address] Dr. Kelsea Guillermo INFLUENZA A AND B AGon 10-30 INFLUANEGH SEE BELOW Normal [facility] Comment on above: Result Comment: Nega tive for Flu A protein angiten. Infection due to Flu A cannot be ruled out. Flu A angiten in the sample may be below the detection limit of the test. Performed By: #### C BC #### [facility] [address] [place] [address] Dr. Kelsea Guillermo [facility] SEE BELOW Normal [facility] Comment on above: Result Comment: Nega tive for Flu B protein antigen. Infection due to Flu B cannot be ruled out. Flu B antigen in the sample may be below the detection limit of the test. Performed By: #### C BC #### [facility] [address] [place] [address] Dr. Kelsea Guillermo INFLUENZA A AG Negative Normal NEGATIVE SEE COMMENT [facility] Comment on above: Performed By: #### C BC #### [facility] [address] [place] [address] Dr. Kelsea Guillermo INFLUENZA B AG Negative Normal NEGATIVE SEE COMMENT [facility] Comment on above: Performed By: #### C BC #### [facility] [address] [place] [address] Dr. Kelsea Guillermo PROF 14(COMP METB)on 023 Albumin [Mass/Vol] 3.7 g/dL Normal 3.4-5.0 [facility] Comment on above: Performed By: #### C BC #### [facility] [address] [place] [address] Dr. Kelsea Guillermo Albumin/Globulin [Mass ratio] 0.9 {ratio} Normal [facility] Comment on above: Performed By: #### C BC #### [facility] [address] [place] [address] Dr. Kelsea Guillermo ALP [Catalytic activity/Vol] 110 U/L Normal 46-116 [facility] Comment on above: Performed By: #### C BC #### [facility] [address] [place] [address] Dr. Kelsea Guillermo ALT [Catalytic activity/Vol] 12 U/L Critically low 16-63 [facility] Comment on above: Performed By: #### C BC #### [facility] [address] [place] [address] Dr. Kelsea Guillermo Anion gap [Moles/Vol] 12.3 mmol/L Normal [facility] Comment on above: Performed By: #### C BC #### [facility] [address] [address] [address] Kelsea Guillermo AST [Catalytic activity/Vol] 18 U/L Normal 15-37 [facility] Comment on above: Performed By: #### C BC #### [facility] [address] [address] [address] Kelsea Guillermo Bilirubin [Mass/Vol] 0.3 mg/dL Normal 0.2-1.0 [facility] Comment on above: Performed By: #### C BC #### [facility] [address] [address] [address] Kelsea Guillermo Calcium [Mass/Vol] 8.4 mg/dL Critically low 8.5-10.1 [facility] Comment on above: Performed By: #### C BC #### [facility] [address] [place] [address] Dr. Kelsea Guillermo Chloride [Moles/Vol] 100 mmol/L Normal 98-107 [facility] Comment on above: Performed By: #### C BC #### [facility] [address] [address] [address] Kelsea Guillermo CO2 [Moles/Vol] 26.7 mmol/L Normal 21.0-32.0 [facility] Comment on above: Performed By: #### C BC #### [facility] [address] [place] [address] Dr. Kelsea Guillermo Creatinine [Mass/Vol] 2.01 mg/dL Critically high 0.70-1.30 [facility] Comment on above: Performed By: #### C BC #### [facility] [address] [address] [address] Kelsea Guillermo EGFR-AF GAMBIAN 39 mL/min/1.73m2 Critically low >=60 [facility] Comment on above: Performed By: #### C BC #### [facility] [address] [address] [address] Kelsea Guillermo EGFR-NON AF GAMBIAN 32 mL/min/1.73m2 Critically low >=60 [facility] Comment on above: Performed By: #### C BC #### [facility] [address] [address] [address] Kelsea Guillermo Globulin (S) [Mass/Vol] 3.9 g/dL Normal [facility] Comment on above: Performed By: #### C BC #### [facility] [address] [address] [address] Kelsea Guillermo Glucose [Mass/Vol] 108 mg/dL Critically high 74-106 [facility] Comment on above: Performed By: #### C BC #### [facility] [address] [place] [address] Dr. Kelsea Guillermo Potassium [Moles/Vol] 3.0 mmol/L Critically low 3.5-5.1 [facility] Comment on above: Performed By: #### C BC #### [facility] [address] [place] [address] Dr. Kelsea Guillermo Protein [Mass/Vol] 7.6 g/dL Normal 6.4-8.2 [facility] Comment on above: Performed By: #### C BC #### [facility] [address] [place] [address] Dr. Kelsea Guillermo Sodium [Moles/Vol] 136 mmol/L Normal 136-145 [facility] Comment on above: Performed By: #### C BC #### [facility] [address] [place] [address] Dr. Kelsea Guillermo Urea nitrogen [Mass/Vol] 24.0 mg/dL Critically high 7.0-18.0 [facility] Comment on above: Performed By: #### C BC #### [facility] [address] [place] [address] Dr. Kelsea Guillermo Urea nitrogen/Creatinine [Mass ratio] 11.9 mg/mg Normal [facility] Comment on above: Performed By: #### C BC #### [facility] [address] [place] [address] Dr. Kelsea Guillermo PROTIMEon 10-30-2022 INR Coag (PPP) [Relative time] 2.35 {INR} Normal [facility] Comment on above: Performed By: #### P T, PTT #### [facility] [address] [address] [address] Kelsea Guillermo INR GUIDELINES SEE BELOW Normal [facility] Comment on above: Result Comment: AGUILA RED INR: 2.0 - 3.0 CONDITIONS NOT LISTED BELOW 2.5 - 3.5 FOR PROSTHETIC HEART VALVE REPLACEMENT 2.5 - 3.5 RECURRENT THROMBOSIS Performed By: #### P T, PTT #### [facility] [address] [place] [address] Dr. Kelsea Guillermo PT Coag (PPP) [Time] 24.0 s Critically high 9.0-11.6 [facility] Comment on above: Performed By: #### P T, PTT #### [facility] [address] [place] [address] Dr. Kelsea Guillermo PTTon 10-30-2022 aPTT Coag (Bld) [Time] 47.8 s Critically high 22.3-36. 2 [facility] Comment on above: Performed By: #### P T, PTT #### [facility] [address] [place] [address] Dr. Kelsea Guillermo TROPONIN, HIGH SENSITIVITYon 10-30-2022 HSTROP 21.8 pg/mL Normal 4.0-76.1 [facility] Comment on above: Result Comment: CUT- OFF POINTS HAVE BEEN ESTABLISHED BASED ON THE FOURTH UNIVERSAL DEFINITIONS OF MYOCARDIAL INFARCTION. THE UPPER REFERENCE LIMIT (URL) OF TROPONIN, DEFINED THE 99TH PERCENTILE OF cTnI DISTRIBUTION IN A REFERENCE POPULATION, HAS BEEN CONFIRMED THE DECISION THRESHOLD FOR NM DIAGNOSIS. Performed By: #### C BC #### [facility] [address] [place] [address] Dr. Kelsea Guillermo XR CHEST 1 Von [...] MIKA MARI Date: 2022-10-30 20:10 Normal [facility] PROTIMEon 09-10-2022 INR Coag (PPP) [Relative time] 2.04 {INR} Normal [facility] Comment on above: Performed By: #### C BC #### [facility] [address] [place] [address] Dr. Kelsea Guillermo INR GUIDELINES SEE BELOW Normal [facility] Comment on above: Result Comment: AGUILA RED INR: 2.0 - 3.0 CONDITIONS NOT LISTED BELOW 2.5 - 3.5 FOR PROSTHETIC HEART VALVE REPLACEMENT 2.5 - 3.5 RECURRENT THROMBOSIS Performed By: #### C BC #### [facility] [address] [place] [address] Dr. Kelsea Guillermo PT Coag (PPP) [Time] 21.0 s Critically high 9.0-11.6 [facility] Comment on above: Performed By: #### C BC #### [facility] [address] [place] [address] Dr. Kelsea Guillermo CARDIAC ISIDRO 3-6on 2 CK [Catalytic activity/Vol] 62 U/L Normal 39-308 [facility] Comment on above: Performed By: #### C MREP #### [facility] [address] [place] [address] Dr. Kelsea Guillermo CK.MB [Mass/Vol] 1.28 ng/mL Normal <=3.60 [facility] Comment on above: Performed By: #### C MREP #### [facility] [address] [place] [address] Dr. Kelsea Guillermo HSTROP 19.5 pg/mL Normal 4.0-76.1 [facility] Comment on above: Result Comment: CUT- OFF POINTS HAVE BEEN ESTABLISHED BASED ON THE FOURTH UNIVERSAL DEFINITIONS OF MYOCARDIAL INFARCTION. THE UPPER REFERENCE LIMIT (URL) OF TROPONIN, DEFINED THE 99TH PERCENTILE OF cTnI DISTRIBUTION IN A REFERENCE POPULATION, HAS BEEN CONFIRMED THE DECISION THRESHOLD FOR NM DIAGNOSIS. Performed By: #### C MREP #### [facility] [address] [place] [address] ABD/PELVIS WO CONon [...] by: SARY RIGGS Date: 2022-05-13 22:51 Normal [facility] LACTATE/LACTIC ACIDon 2021 Lactate [Moles/Vol] 0.5 mmol/L Normal 0.4-1.9 [facility] Comment on above: Performed By: #### L ACT #### [facility] [address] [place] [address] Dr. Kelsea Guillermo CARDIAC ISIDRO ADMITon 022 CK [Catalytic activity/Vol] 71 U/L Normal 39-308 [facility] Comment on above: Performed By: #### C LARISA VARGASDM #### [facility] [address] [place] [address] Dr. Kelsea Guillermo CK.MB [Mass/Vol] 1.26 ng/mL Normal <=3.60 [facility] Comment on above: Performed By: #### C LARISA VARGASDM #### [facility] [address] [place] [address] Dr. Kelsea Guillermo HSTROP 17.5 pg/mL Normal 4.0-76.1 [facility] Comment on above: Result Comment: CUT- OFF POINTS HAVE BEEN ESTABLISHED BASED ON THE FOURTH UNIVERSAL DEFINITIONS OF MYOCARDIAL INFARCTION. THE UPPER REFERENCE LIMIT (URL) OF TROPONIN, DEFINED THE 99TH PERCENTILE OF cTnI DISTRIBUTION IN A REFERENCE POPULATION, HAS BEEN CONFIRMED THE DECISION THRESHOLD FOR NM DIAGNOSIS. Performed By: #### C MARK VARGAS #### [facility] [address] [place] [address] Dr. Kelsea Guillermo ROLAND 115 ng/mL Critically high 16-96 [facility] Comment on above: Performed By: #### C MARK VARGAS #### [facility] [address] [place] [address] Dr. Kelsea Guillermo CBC AUTO DIFFon 05-13-2022 BASO # 0.0 103/ul Normal 0.0-0.1 [facility] Comment on above: Performed By: #### C BC #### [facility] [address] [place] [address] Dr. Kelsea Guillermo Basophils/100 WBC (Bld) 0.5 % Normal 0.2-2.0 [facility] Comment on above: Performed By: #### C BC #### [facility] [address] [place] [address] Dr. Kelsea Guillermo EO # 0.4 103/ul Normal 0.0-0.7 [facility] Comment on above: Performed By: #### C BC #### [facility] [address] [place] [address] Dr. Kelsea Guillermo Eosinophils/100 WBC (Bld) 5.3 % Normal 0.9-7.0 [facility] Comment on above: Performed By: #### C BC #### [facility] [address] [place] [address] Dr. Kelsea Guillermo Erythrocyte distribution width (RBC) [Ratio] 14.0 % Normal 11.0-15.0 [facility] Comment on above: Performed By: #### C BC #### [facility] [address] [place] [address] Dr. Kelsea Guillermo Hematocrit (Bld) [Volume fraction] 36.7 % Critically low 42.0-54.0 [facility] Comment on above: Performed By: #### C BC #### [facility] [address] [place] [address] Dr. Kelsea Guillermo Hemoglobin (Bld) [Mass/Vol] 11.8 g/dL Critically low 14.0-18.0 [facility] Comment on above: Performed By: #### C BC #### [facility] [address] [place] [address] Dr. Kelsea Guillermo IG # 0.09 10e3/ul Critically high 0.00-0.03 [facility] Comment on above: Performed By: #### C BC #### [facility] [address] [place] [address] Dr. Kelsea Guillermo IG % 1.2 % Critically high 0.0-0.5 [facility] Comment on above: Performed By: #### C BC #### [facility] [address] [place] [address] Dr. Kelsea Guillermo LYMPH # 1.6 103/ul Normal 1.2-3.8 [facility] Comment on above: Performed By: #### C BC #### [facility] [address] [place] [address] Dr. Kelsea Guillermo Lymphocytes/100 WBC (Bld) 21.9 % Normal 20.5-60.0 [facility] Comment on above: Performed By: #### C BC #### [facility] [address] [place] [address] Dr. Kelsea Guillermo MANUAL DIFF REQ NO Normal [facility] Comment on above: Performed By: #### C BC #### [facility] [address] [address] [address] Kelsea Guillermo MCH (RBC) [Entitic mass] 31.7 pg Normal 25.9-34.0 [facility] Comment on above: Performed By: #### C BC #### [facility] [address] [address] [address] Kelsea Guillermo MCHC (RBC) [Mass/Vol] 32.2 g/dL Normal 29.9-35.2 [facility] Comment on above: Performed By: #### C BC #### [facility] [address] [place] [address] Dr. Kelsea Guillermo MCV (RBC) [Entitic vol] 98.7 fL Critically high 80.0-94.0 [facility] Comment on above: Performed By: #### C BC #### [facility] [address] [place] [address] Dr. Kelsea Guillermo MONO # 0.7 103/ul Normal 0.3-0.8 [facility] Comment on above: Performed By: #### C BC #### [facility] [address] [place] [address] Dr. Kelsea Guillermo Monocytes/100 WBC (Bld) 9.4 % Normal 1.7-12.0 [facility] Comment on above: Performed By: #### C BC #### [facility] [address] [place] [address] Dr. Kelsea Guillermo NEUT # 4.5 103/ul Normal 1.4-6.5 [facility] Comment on above: Performed By: #### C BC #### [facility] [address] [place] [address] Dr. Kelsea Guillermo Neutrophils/100 WBC (Bld) 61.7 % Normal 43.0-75.0 [facility] Comment on above: Performed By: #### C BC #### [facility] [address] [place] [address] Dr. Kelsea Guillermo Platelet mean volume (Bld) [Entitic vol] 9.3 fL Critically low 9.5-13.5 [facility] Comment on above: Performed By: #### C BC #### [facility] [address] [place] [address] Dr. Kelsea Guillermo PLT 207 103/ul Normal 150-450 [facility] Comment on above: Performed By: #### C BC #### [facility] [address] [place] [address] Dr. Kelsea Guillermo RBC 3.72 106/ul Critically low 4.70-6.10 [facility] Comment on above: Performed By: #### C BC #### [facility] [address] [place] [address] Dr. Kelsea Guillermo WBC 7.4 103/ul Normal 4.0-11.0 [facility] Comment on above: Performed By: #### C BC #### [facility] [address] [place] [address] Dr. Kelsea Guillermo ER URINE PROFILEon 2 Bilirubin Ql (U) Negative Normal NEGATIVE [facility] Comment on above: Performed By: #### C BC #### [facility] [address] [place] [address] Dr. Kelsea Guillermo Clarity (U) CLEAR Normal CLEAR [facility] Comment on above: Performed By: #### C BC #### [facility] [address] [place] [address] Dr. Kelsea Guillermo Color (U) LT. YELLOW Normal YELLOW [facility] Comment on above: Performed By: #### C BC #### [facility] [address] [place] [address] Dr. Kelsea Guillermo ERUANOOPD A micrscopic examina tion will be performed if indicated. Normal [facility] Comment on above: Performed By: #### C BC #### [facility] [address] [place] [address] Dr. Kelsea Guillermo Glucose Ql (U) Negative Normal NEGATIVE [facility] Comment on above: Performed By: #### C BC #### [facility] [address] [place] [address] Dr. Kelsea Guillermo Hemoglobin Ql (U) Negative Normal NEGATIVE [facility] Comment on above: Performed By: #### C BC #### [facility] [address] [place] [address] Dr. Kelsea Guillermo Ketones Ql (U) Negative Normal NEGATIVE [facility] Comment on above: Performed By: #### C BC #### [facility] [address] [place] [address] Dr. Kelsea Guillermo LEUKOCYTES Negative Normal NEGATIVE [facility] Comment on above: Performed By: #### C BC #### [facility] [address] [place] [address] Dr. Kelsea Guillermo Nitrite Ql (U) Negative Normal NEGATIVE [facility] Comment on above: Performed By: #### C BC #### [facility] [address] [place] [address] Dr. Kelsea Guillermo pH (U) 5.5 [pH] Normal 5-9 [facility] Comment on above: Performed By: #### C BC #### [facility] [address] [place] [address] Dr. Kelsea Guillermo Protein (U) [Mass/Vol] 30 mg/dL Abnormal NEGAT CANDACE/ TRACE [facility] Comment on above: Performed By: #### C BC #### [facility] [address] [place] [address] Dr. Kelsea Guillermo SPEC GRAVITY 1.020 Normal 1.005-<=1. 025 [facility] Comment on above: Performed By: #### C BC #### [facility] [address] [place] [address] Dr. Kelsea Guillermo UR MICRO IND NOT INDICATED Normal [facility] Comment on above: Performed By: #### C BC #### [facility] [address] [place] [address] Dr. Kelsea Guillermo Urobilinogen Qn (U) 0.2 {Jennifer'U}/dL Normal 0.2 - 1. 0 [facility] Comment on above: Performed By: #### C BC #### [facility] [address] [place] [address] Dr. Kelsea Guillermo LACTATE/LACTIC ACIDon 2021 Lactate [Moles/Vol] 0.8 mmol/L Normal 0.4-1.9 [facility] Comment on above: Performed By: #### C BC #### [facility] [address] [address] [address] Kelsea Guillermo PROF 14(COMP METB)on 022 Albumin [Mass/Vol] 3.7 g/dL Normal 3.4-5.0 [facility] Comment on above: Performed By: #### C ALICIA, LARISADM #### [facility] [address] [address] [address] Kelsea Guillermo Albumin/Globulin [Mass ratio] 0.9 {ratio} Normal [facility] Comment on above: Performed By: #### C ALICIA, LARISADM #### [facility] [address] [place] [address] Dr. Kelsea Guillermo ALP [Catalytic activity/Vol] 133 U/L Critically high 46-116 [facility] Comment on above: Performed By: #### C ALICIA, CMADM #### [facility] [address] [place] [address] Dr. Kelsea Guillermo ALT [Catalytic activity/Vol] 18 U/L Normal 16-63 [facility] Comment on above: Performed By: #### C ALICIA, LARISADM #### [facility] [address] [address] [address] Kelsea Guillermo Anion gap [Moles/Vol] 12.5 mmol/L Normal [facility] Comment on above: Performed By: #### C ALICIA, CMADM #### [facility] [address] [place] [address] Dr. Kelsea Guillermo AST [Catalytic activity/Vol] 14 U/L Critically low 15-37 [facility] Comment on above: Performed By: #### C ALICIA, CMADM #### [facility] [address] [place] [address] Dr. Kelsea Guillermo Bilirubin [Mass/Vol] 0.3 mg/dL Normal 0.2-1.0 [facility] Comment on above: Performed By: #### C ALICIA, CMADM #### [facility] [address] [address] [address] Kelsea Guillermo Calcium [Mass/Vol] 9.0 mg/dL Normal 8.5-10.1 [facility] Comment on above: Performed By: #### C ALICIA, CMADM #### [facility] [address] [place] [address] Dr. Kelsea Guillermo Chloride [Moles/Vol] 102 mmol/L Normal 98-107 [facility] Comment on above: Performed By: #### C ALICIA, CMADM #### [facility] [address] [place] [address] Dr. Kelsea Guillermo CO2 [Moles/Vol] 27.7 mmol/L Normal 21.0-32.0 [facility] Comment on above: Performed By: #### C ALICIA, CMADM #### [facility] [address] [place] [address] Dr. Kelsea Guillermo Creatinine [Mass/Vol] 1.83 mg/dL Critically high 0.70-1.30 [facility] Comment on above: Performed By: #### C ALICIA, CMADM #### [facility] [address] [place] [address] Dr. Kelsea Guillermo EGFR-AF GAMBIAN 44 mL/min/1.73m2 Critically low >=60 [facility] Comment on above: Performed By: #### C ALICIA, CMADM #### [facility] [address] [place] [address] Dr. Kelsea Guillermo EGFR-NON AF GAMBIAN 36 mL/min/1.73m2 Critically low >=60 [facility] Comment on above: Performed By: #### C ALICIA, CMADM #### [facility] [address] [place] [address] Dr. Kelsea Guillermo Globulin (S) [Mass/Vol] 4.2 g/dL Normal [facility] Comment on above: Performed By: #### C ALICIA, CMADM #### [facility] [address] [place] [address] Dr. Kelsea Guillermo Glucose [Mass/Vol] 101 mg/dL Normal 74-106 [facility] Comment on above: Performed By: #### C ALICIA, CMADM #### [facility] [address] [address] [address] Kelsea Guillermo Potassium [Moles/Vol] 4.2 mmol/L Normal 3.5-5.1 [facility] Comment on above: Performed By: #### C MP, CMADM #### [facility] [address] [address] [address] Kelsea Guillermo Protein [Mass/Vol] 7.9 g/dL Normal 6.4-8.2 [facility] Comment on above: Performed By: #### C MP, CMADM #### [facility] [address] [address] [address] Kelsea Guillermo Sodium [Moles/Vol] 138 mmol/L Normal 136-145 [facility] Comment on above: Performed By: #### C ALICIA, CMADM #### [facility] [address] [address] [address] Kelsea Guillermo Urea nitrogen [Mass/Vol] 24.0 mg/dL Critically high 7.0-18.0 [facility] Comment on above: Performed By: #### C ALICIA, CMADM #### [facility] [address] [address] [address] Kelsea Guillermo Urea nitrogen/Creatinine [Mass ratio] 13.1 mg/mg Normal [facility] Comment on above: Performed By: #### C ALICIA, CMADM #### [facility] [address] [address] [address] Kelsea Guillermo XR CHEST 1 Von [...] DEVENDRA GUTIERREZ Date: 2022-05-13 20:48 Normal [facility] HIP LEFT 1 OR 2 VWS WITH PEL VISon 02-15-2022 HIP LEFT 1 OR 2 VWS WITH PELVIS [facility] Department of Radiology [address] [place] [address] Patient Name: NIELS MCCULLOUGH : 1945 [...] arthroplasty. Electronically signed: Mika Bolaños. Transcribed by: [email or web address], User Resident: Electronically Signed by: MIKA BOLAÑOS @ 02/18/2022 11:21 AM Normal [facility] Comment on above: Order Comment: evalu ate for Aspiration BASIC METABOLIC PANELon 01-25 Calcium [Mass/Vol] 7.7 mg/dL Low 8.6-10.3 [facility] Comment on above: Order Comment: No: D o not add to previous draw Performed By: #### 0 0071 ####[facility] [place] [address], [facility] Chloride [Moles/Vol] 106 mmol/L Normal 98-107 [facility] Comment on above: Order Comment: No: D o not add to previous draw Performed By: #### 0 0071 ####[facility] [place] [address], [facility] CO2 [Moles/Vol] 24 mmol/L Normal 21-31 [facility] Comment on above: Order Comment: No: D o not add to previous draw Performed By: #### 0 0071 ####[facility] [place] [address], [facility] Creatinine [Mass/Vol] 1.56 mg/dL High 0.70-1.30 [facility] Comment on above: Order Comment: No: D o not add to previous draw Performed By: #### 0 0071 ####[facility] [place] [address], [facility] eGFR- 53 ml/min/1.73sq m Abnormal >60 [facility] Comment on above: Order Comment: No: D o not add to previous draw Result Comment: Calc ulation may not be valid for patients over 70 years Performed By: #### 0 0071 ####[facility] [place] [address], [facility] eGFR- non- 44 ml/min/1.73sq m Abnormal >60 [facility] Comment on above: Order Comment: No: D o not add to previous draw Result Comment: Calc ulation may not be valid for patients over 70 years Performed By: #### 0 0071 ####[facility] [place] [address], [facility] Glucose [Mass/Vol] 104 mg/dL High 70-100 [facility] Comment on above: Order Comment: No: D o not add to previous draw Performed By: #### 0 0071 ####[facility] [place] [address], [facility] Potassium [Moles/Vol] 3.8 mmol/L Normal 3.5-5.1 [facility] Comment on above: Order Comment: No: D o not add to previous draw Performed By: #### 0 0071 ####[facility] [place] [address], [facility] Sodium [Moles/Vol] 137 mmol/L Normal 136-145 [facility] Comment on above: Order Comment: No: D o not add to previous draw Performed By: #### 0 0071 ####[facility] [facility] [place] [address], [facility] Urea nitrogen [Mass/Vol] 27 mg/dL High 7-25 [facility] Comment on above: Order Comment: No: D o not add to previous draw Performed By: #### 0 0071 ####[facility] [facility] [place] [address], [facility] CBC COMPLETE BLOOD COUNTon 0 - Erythrocyte distribution width (RBC) [Ratio] 14.5 % Normal 11.5-15.0 [facility] Comment on above: Order Comment: LEFT HIP SCREW HEAD TISSUE Performed By: #### 3 0338 #### [facility] [address] [place] [address], [facility] Hematocrit (Bld) [Volume fraction] 24.7 % Low 39.0-50.0 [facility] Comment on above: Order Comment: LEFT HIP SCREW HEAD TISSUE Performed By: #### 3 0338 #### [facility] [address] Hemoglobin (Bld) [Mass/Vol] 8.1 g/dL Low 13.0-17.0 [facility] Comment on above: Order Comment: LEFT HIP SCREW HEAD TISSUE Performed By: #### 3 0338 #### [facility] [address] MCH (RBC) [Entitic mass] 32.5 pg Normal 27.0-33.0 [facility] Comment on above: Order Comment: LEFT HIP SCREW HEAD TISSUE Performed By: #### 3 0338 #### [facility] [address] MCHC (RBC) [Mass/Vol] 32.8 g/dL Normal 32.0-35.0 [facility] Comment on above: Order Comment: LEFT HIP SCREW HEAD TISSUE Performed By: #### 3 0338 #### [facility] [address] [facility]. [address] MCV (RBC) [Entitic vol] 99.2 fL High 82.0-98.0 [facility] Comment on above: Order Comment: LEFT HIP SCREW HEAD TISSUE Performed By: #### 3 0338 #### [facility] [address] [facility]. [address] Nucleated RBC/100 WBC (Bld) [Ratio] 0 % Normal 0-0 [facility] Comment on above: Order Comment: LEFT HIP SCREW HEAD TISSUE Performed By: #### 3 0338 #### [facility] [address] [facility] [place] [address], [facility] PLAT CNT 177 10*3/uL Normal 150-400 [facility] Comment on above: Order Comment: LEFT HIP SCREW HEAD TISSUE Performed By: #### 3 0338 #### [facility] [address] [place] [address], [facility] RBC (Bld) [#/Vol] 2.49 10*6/uL Low 4.20-5.70 [facility] Comment on above: Order Comment: LEFT HIP SCREW HEAD TISSUE Performed By: #### 3 0338 #### [facility] [address] [place] [address], [facility] WBC (Bld) [#/Vol] 10.19 10*3/uL Normal 4.00-10.60 [facility] Comment on above: Order Comment: LEFT HIP SCREW HEAD TISSUE Performed By: #### 3 0338 #### [facility] [address] [facility]. [address] PROTHROMBIN TIMEon 2 INR Coag (PPP) [Relative time] 1.25 {INR} High 0.91-1.16 [facility] Comment on above: Order Comment: LEFT HIP [...] 1995;[id number]. Performed By: #### 3 0318 #### [facility] [address] [place] [address], [place] PT Coag (PPP) [Time] 15.7 s High 12.3-14.8 [facility] Comment on above: Order Comment: LEFT HIP FLUID #2 Result Comment: ALL RESULTS MUST BE INTERPRETED WITH RESPECT TO BLOOD DRAWING ARTIFACT OR DILUTION ERROR OF ANTICOAGULANT AT THE TIME OF SAMPLING. Performed By: #### 3 0318 #### [facility] [address] [place] [address], [facility] BASIC METABOLIC PANELon - Calcium [Mass/Vol] 7.9 mg/dL Low 8.6-10.3 [facility] Comment on above: Order Comment: evalu ate for Aspiration Performed By: #### 0 0071 ####[facility] [place] [address], [facility] Chloride [Moles/Vol] 104 mmol/L Normal 98-107 [facility] Comment on above: Order Comment: evalu ate for Aspiration Performed By: #### 0 0071 ####[facility] [place] [address], [facility] CO2 [Moles/Vol] 27 mmol/L Normal 21-31 [facility] Comment on above: Order Comment: evalu ate for Aspiration Performed By: #### 0 0071 ####[facility] [place] [address], [facility] Creatinine [Mass/Vol] 1.78 mg/dL High 0.70-1.30 [facility] Comment on above: Order Comment: evalu ate for Aspiration Performed By: #### 0 0071 ####[facility] [place] [address], [facility] eGFR- 45 ml/min/1.73sq m Abnormal >60 [facility] Comment on above: Order Comment: evalu ate for Aspiration Result Comment: Calc ulation may not be valid for patients over 70 years Performed By: #### 0 0071 ####[facility] [place] [address], [facility] eGFR- non- 37 ml/min/1.73sq m Abnormal >60 [facility] Comment on above: Order Comment: evalu ate for Aspiration Result Comment: Calc ulation may not be valid for patients over 70 years Performed By: #### 0 0071 ####[facility] [place] [address], [facility] Glucose [Mass/Vol] 115 mg/dL High 70-100 [facility] Comment on above: Order Comment: evalu ate for Aspiration Performed By: #### 0 0071 ####[facility] Potassium [Moles/Vol] 3.6 mmol/L Normal 3.5-5.1 [facility] Comment on above: Order Comment: evalu ate for Aspiration Performed By: #### 0 0071 ####[facility] Sodium [Moles/Vol] 136 mmol/L Normal 136-145 [facility] Comment on above: Order Comment: evalu ate for Aspiration Performed By: #### 0 0071 ####[facility] Urea nitrogen [Mass/Vol] 35 mg/dL High 7-25 [facility] Comment on above: Order Comment: evalu ate for Aspiration Performed By: #### 0 0071 ####[facility] CBC W/DIFFon 02-06-2022 ABS IMM GRANS 0.1 10*3/uL Normal 0.0-0.2 [facility] Comment on above: Order Comment: No: D o not add to previous draw Performed By: #### 5 0103 #### [facility] [address] [place] [address], [facility] ABS NEUTROPHILS 9.3 10*3/uL High 1.6-7.6 [facility] Comment on above: Order Comment: No: D o not add to previous draw Performed By: #### 5 0103 #### [facility] [address] [place] [address], [place] Basophils (Bld) [#/Vol] 0.0 10*3/uL Normal 0.0-0.2 [facility] Comment on above: Order Comment: No: D o not add to previous draw Performed By: #### 5 0103 #### [facility] [address] [place] [address], [place] Basophils/100 WBC (Bld) 0.3 % Normal 0.0-1.0 [facility] Comment on above: Order Comment: No: D o not add to previous draw Performed By: #### 5 0103 #### [facility] [address] [place] [address], [place] Eosinophils (Bld) [#/Vol] 0.1 10*3/uL Normal 0.0-0.5 [facility] Comment on above: Order Comment: No: D o not add to previous draw Performed By: #### 5 0103 #### [facility] [address] [place] [address], [facility] Eosinophils/100 WBC (Bld) 0.4 % Normal 0.0-6.0 [facility] Comment on above: Order Comment: No: D o not add to previous draw Performed By: #### 5 0103 #### [facility] [address] [place] [address], [place] Erythrocyte distribution width (RBC) [Ratio] 14.6 % Normal 11.5-15.0 [facility] Comment on above: Order Comment: No: D o not add to previous draw Performed By: #### 5 0103 #### [facility] [address] [place] [address], [place] Hematocrit (Bld) [Volume fraction] 25.3 % Low 39.0-50.0 [facility] Comment on above: Order Comment: No: D o not add to previous draw Performed By: #### 5 0103 #### [facility] [address] [place] [id number], [facility] Hemoglobin (Bld) [Mass/Vol] 8.3 g/dL Low 13.0-17.0 [facility] Comment on above: Order Comment: No: D o not add to previous draw Performed By: #### 5 0103 #### [facility] [address] [place] [id number], [facility] IMMATURE GRANS 0.6 % Normal 0.0-1.0 [facility] Comment on above: Order Comment: No: D o not add to previous draw Performed By: #### 5 0103 #### [facility] [address] [place] [id number], [facility] Lymphocytes (Bld) [#/Vol] 1.3 10*3/uL Normal 1.2-4.0 [facility] Comment on above: Order Comment: No: D o not add to previous draw Performed By: #### 5 0103 #### [facility] [address] [facility] [place] [address], [facility] Lymphocytes/100 WBC (Bld) 10.8 % Low 20.0-45.0 [facility] Comment on above: Order Comment: No: D o not add to previous draw Performed By: #### 5 0103 #### [facility] [address] [facility] [place] [address], [facility] MCH (RBC) [Entitic mass] 31.8 pg Normal 27.0-33.0 [facility] Comment on above: Order Comment: No: D o not add to previous draw Performed By: #### 5 0103 #### [facility] [address] [place] [id number], [facility] MCHC (RBC) [Mass/Vol] 32.8 g/dL Normal 32.0-35.0 [facility] Comment on above: Order Comment: No: D o not add to previous draw Performed By: #### 5 0103 #### [facility] [address] [place] [address], [facility] MCV (RBC) [Entitic vol] 96.9 fL Normal 82.0-98.0 [facility] Comment on above: Order Comment: No: D o not add to previous draw Performed By: #### 5 0103 #### [facility] [address] [facility] [address], [facility] Monocytes (Bld) [#/Vol] 1.1 10*3/uL High 0.1-1.0 [facility] Comment on above: Order Comment: No: D o not add to previous draw Performed By: #### 5 3 #### [facility] [address] [facility] [place] [address], [facility] MONOS 9.1 % Normal 5.0-12.0 [facility] Comment on above: Order Comment: No: D o not add to previous draw Performed By: #### 5 3 #### [facility] [address] [facility] [place] [address], [facility] Neutrophils/100 WBC (Bld) 78.8 % High 40.0-72.0 [facility] Comment on above: Order Comment: No: D o not add to previous draw Performed By: #### 5 0103 #### [facility] [address] [facility] [place] [address], [facility] Nucleated RBC/100 WBC (Bld) [Ratio] 0 % Normal 0-0 [facility] Comment on above: Order Comment: No: D o not add to previous draw Performed By: #### 5 0103 #### [facility] [address] [facility] [place] [address], [facility] PLAT CNT 182 10*3/uL Normal 150-400 The [facility] Comment on above: Order Comment: No: D o not add to previous draw Performed By: #### 5 3 #### [facility] [address] [place] [address], [facility] RBC (Bld) [#/Vol] 2.61 10*6/uL Low 4.20-5.70 [facility] Comment on above: Order Comment: No: D o not add to previous draw Performed By: #### 5 0103 #### [facility] [address] [facility] [place] [address], [facility] WBC (Bld) [#/Vol] 11.78 10*3/uL High 4.00-10.60 [facility] Comment on above: Order Comment: No: D o not add to previous draw Performed By: #### 5 0103 #### [facility] [address] [facility] PROTHROMBIN TIMEon 2 INR Coag (PPP) [Relative time] 1.18 {INR} High 0.91-1.16 [facility] Comment on above: Order Comment: No: D [...] CHEST 1995;108:231S-246S. Performed By: #### 5 6101 ####[facility] [place] [address], [place] PT Coag (PPP) [Time] 15.1 s High 12.3-14.8 [facility] Comment on above: Order Comment: No: D o not add to previous draw Result Comment: ALL RESULTS MUST BE INTERPRETED WITH RESPECT TO BLOOD DRAWING ARTIFACT OR DILUTION ERROR OF ANTICOAGULANT AT THE TIME OF SAMPLING. Performed By: #### 5 6101 ####[facility] [place] [address], [place] UA,MICROSCOPIC REQUIREDon Appearance (U) SL CLOUDY Abnormal CLEAR [facility] Comment on above: Order Comment: No: D o not add to previous draw Performed By: #### 9 0150 #### [facility] [address] [place] [address], [place] Bilirubin Ql (U) Negative Normal NEGATIVE The [facility] Comment on above: Order Comment: No: D o not add to previous draw Performed By: #### 9 0150 #### [facility] [address] [place] [address], [place] Color (U) YELLOW Normal YELLOW [facility] Comment on above: Order Comment: No: D o not add to previous draw Performed By: #### 9 0150 #### [facility] [address] [place] [address], [place] EPIS NONE SEEN Normal FEW,OCC,NO NE SEEN [facility] Comment on above: Order Comment: No: D o not add to previous draw Performed By: #### 9 0150 #### [facility] [address] [place] [address], [place] Glucose Ql (U) Negative Normal NEGATIVE The [facility] Comment on above: Order Comment: No: D o not add to previous draw Performed By: #### 9 0150 #### [facility] [address] [place] [address], [place] Hemoglobin Ql (U) SMALL Abnormal NEGATIVE The [facility] Comment on above: Order Comment: No: D o not add to previous draw Performed By: #### 9 0150 #### [facility] [address] [place] [address], [facility] KETONE Negative Normal NEGATIVE The [facility] Comment on above: Order Comment: No: D o not add to previous draw Performed By: #### 9 0150 #### [facility] [address] [place] [address], [facility] LEUK JALYN Negative Normal NEGATIVE The [facility] Comment on above: Order Comment: No: D o not add to previous draw Performed By: #### 9 0150 #### [facility] [address] [place] [address], [facility] Nitrite Ql (U) Negative Normal NEGATIVE The [facility] Comment on above: Order Comment: No: D o not add to previous draw Performed By: #### 9 0150 #### [facility] [address] [place] [address], [facility] pH (U) 5.0 [pH] Normal 5.0-8.0 [facility] Comment on above: Order Comment: No: D o not add to previous draw Performed By: #### 9 0150 #### [facility] [address] [place] [address], [facility] Protein Ql (U) 30 mg/dL Abnormal NEGATIVE The [facility] Comment on above: Order Comment: No: D o not add to previous draw Performed By: #### 9 0150 #### [facility] [address] [place] [address], [facility] RBC 3-5 Abnormal NONE SEEN The [facility] Comment on above: Order Comment: No: D o not add to previous draw Performed By: #### 9 0150 #### [facility] [address] [place] [address], [facility] SPEC GRAV 1.016 Normal 1.015-1.02 0 [facility] Comment on above: Order Comment: No: D o not add to previous draw Performed By: #### 9 0150 #### [facility] [address] [place] [address], [facility] WBC UA 0-2 Abnormal NONE SEEN The [facility] Comment on above: Order Comment: No: D o not add to previous draw Performed By: #### 9 0150 #### [facility] [address] [place] [address], [facility] APTTon 02-05-2022 aPTT Coag (Bld) [Time] 34.1 s Normal 25.0-35.0 Th e [facility] Comment on above: Order Comment: if no [...] THIS PURPOSE. Performed By: #### 5 7307, 70910 ####[facility] BASIC METABOLIC PANELon 01-25 Calcium [Mass/Vol] 8.2 mg/dL Low 8.6-10.3 [facility] Comment on above: Order Comment: evalu ate for Aspiration Performed By: #### 0 0071 ####[facility] [place] [address], [facility] Chloride [Moles/Vol] 108 mmol/L High 98-107 [facility] Comment on above: Order Comment: evalu ate for Aspiration Performed By: #### 0 0071 ####[facility] [place] [address], [facility] CO2 [Moles/Vol] 22 mmol/L Normal 21-31 [facility] Comment on above: Order Comment: evalu ate for Aspiration Performed By: #### 0 0071 ####[facility] [place] [address], [facility] Creatinine [Mass/Vol] 1.64 mg/dL High 0.70-1.30 [facility] Comment on above: Order Comment: evalu ate for Aspiration Performed By: #### 0 0071 ####[facility] [place] [address], [facility] eGFR- 50 ml/min/1.73sq m Abnormal >60 [facility] Comment on above: Order Comment: evalu ate for Aspiration Result Comment: Calc ulation may not be valid for patients over 70 years Performed By: #### 0 0071 ####[facility] eGFR- non- 41 ml/min/1.73sq m Abnormal >60 The [facility] Comment on above: Order Comment: evalu ate for Aspiration Result Comment: Calc ulation may not be valid for patients over 70 years Performed By: #### 0 0071 ####[facility] [place] [address], [facility] Glucose [Mass/Vol] 145 mg/dL High 70-100 The [facility] Comment on above: Order Comment: evalu ate for Aspiration Performed By: #### 0 0071 ####[facility] [place] [address], [facility] Potassium [Moles/Vol] 3.9 mmol/L Normal 3.5-5.1 [facility] Comment on above: Order Comment: evalu ate for Aspiration Performed By: #### 0 0071 ####[facility] [place] [address], [facility] Sodium [Moles/Vol] 137 mmol/L Normal 136-145 The [facility] Comment on above: Order Comment: evalu ate for Aspiration Performed By: #### 0 0071 ####[facility] Urea nitrogen [Mass/Vol] 27 mg/dL High 7-25 [facility] Comment on above: Order Comment: evalu ate for Aspiration Performed By: #### 0 0071 ####[facility] Operative Reporton 2 Operative Report MR#: [id number] I [facility] Pt. Name: Niels Mccullough Jr Room #: [id number] Discharge Date: Birthdate: 1945 OPERATIVE REPORT DATE [...] f (more content not included)... Normal The [facility] PROTHROMBIN TIMEon 2 INR Coag (PPP) [Relative time] 1.27 {INR} High 0.91-1.16 The [facility] Comment on above: Order Comment: if no [...] CHEST 1995;108:231S-246S. Performed By: #### 5 7307, [id number] ####[facility] PT Coag (PPP) [Time] 15.9 s High 12.3-14.8 The [facility] Comment on above: Order Comment: if no t already doneNo: Do not add to previous draw Result Comment: ALL RESULTS MUST BE INTERPRETED WITH RESPECT TO BLOOD DRAWING ARTIFACT OR DILUTION ERROR OF ANTICOAGULANT AT THE TIME OF SAMPLING. Performed By: #### 5 7307, 79095 ####[facility] *ANAEROBIC CULTUREon 022 *ANAEROBIC CULTURE Clinical Report: (D) Specimen/Source: TISSUE/INTRAOP SPEC Collected: 02/04/2022 17:29 Status: Final Last Updated: 02/09/2022 07:31 (1) LEFT HIP SCREW HEAD TISSUE CULT RES (Final) No Anaerobes Isolated 5 Days Normal The [facility] Comment on above: Order Comment: No: D o not add to previous draw Performed By: #### 9 0150 #### [facility] [address] [place] [address], [facility] *ANAEROBIC CULTURE Clinical Report: (D) Specimen/Source: TISSUE/INTRAOP SPEC Collected: 02/04/2022 17:28 Status: Final Last Updated: 02/09/2022 07:31 (1) LEFT HIP NAIL HEAD CULT RES (Final) No Anaerobes Isolated 5 Days Normal The [facility] Comment on above: Order Comment: LEFT HIP SCREW HEAD TISSUE Performed By: #### 3 0338 #### [facility] [address] [place] [address], [facility] *ANAEROBIC CULTURE Clinical Report: (D) Specimen/Source: FLUID/INTRAOP SPEC Collected: 02/04/2022 17:28 Status: Final Last Updated: 02/09/2022 07:31 (1) LEFT HIP FLUID #2 CULT RES (Final) No Anaerobes Isolated 5 Days Normal The [facility] Comment on above: Order Comment: LEFT HIP SCREW HEAD TISSUE Performed By: #### 3 0338 #### [facility] [address] [place] [address], [facility] *ANAEROBIC CULTURE Clinical Report: (D) Specimen/Source: FLUID/INTRAOP SPEC Collected: 02/04/2022 17:26 Status: Final Last Updated: 02/09/2022 07:31 (1) LEFT HIP FLUID #1 CULT RES (Final) No Anaerobes Isolated 5 Days Normal The [facility] Comment on above: Order Comment: LEFT HIP FLUID #2 Performed By: #### 3 0318 #### [facility] [address] [place] [address], [facility] *ANAEROBIC CULTURE Clinical Report: (D) Specimen/Source: TISSUE/INTRAOP SPEC Collected: 02/04/2022 17:25 Status: Final Last Updated: 02/09/2022 07:31 (1) LEFT HIP CULT RES (Final) No Anaerobes Isolated 5 Days Normal The [facility] Comment on above: Order Comment: No: D o not add to previous draw Performed By: #### 9 0150 #### [facility] [address] [place] [address], [facility] *BODY FLUID CULTUREon 2021 *BODY FLUID CULTURE Clinical Report: (D) Specimen/Source: FLUID/INTRAOP SPEC Collected: 02/04/2022 17:28 Status: Final Last Updated: 02/09/2022 06:34 (1) LEFT HIP FLUID #2 GRAM (Final) Moderate Polys No Bacteria Seen CULT RES (Final) No Growth Day 5 Normal The [facility] Comment on above: Order Comment: LEFT HIP FLUID #2 Performed By: #### 3 0318 #### [facility] [address] [place] [address], [facility] *BODY FLUID CULTURE Clinical Report: (D) Specimen/Source: FLUID/INTRAOP SPEC Collected: 02/04/2022 17:26 Status: Final Last Updated: 02/09/2022 06:34 (1) LEFT HIP FLUID #1 GRAM (Final) Moderate Polys No Bacteria Seen CULT RES (Final) No Growth Day 5 Normal The [facility] Comment on above: Order Comment: LEFT HIP SCREW HEAD TISSUE Performed By: #### 3 0338 #### [facility] [address] [place] [address], [facility] *FUNGAL CULTUREon 02-04-2022 *FUNGAL CULTURE Clinical Report: (D) Specimen/Source: TISSUE/INTRAOP SPEC Collected: 02/04/2022 17:29 Status: Final Last Updated: 04/10/2022 08:13 (1) LEFT HIP SCREW HEAD TISSUE FS (Final) No Yeast or Fungal Elements Seen CULT RES (Final) Culture negative for fungus Normal The [facility] Comment on above: Order Comment: LEFT HIP SCREW HEAD TISSUE Performed By: #### 3 0338 #### [facility] [address] [place] [address], [facility] *FUNGAL CULTURE Clinical Report: (D) Specimen/Source: FLUID/INTRAOP SPEC Collected: 02/04/2022 17:28 Status: Final Last Updated: 04/10/2022 08:13 (1) LEFT HIP FLUID #2 FS (Final) No Yeast or Fungal Elements Seen CULT RES (Final) Culture negative for fungus Normal The [facility] Comment on above: Order Comment: LEFT HIP FLUID #2 Performed By: #### 3 0323 #### [facility] [address] [place] [address], [facility] *FUNGAL CULTURE Clinical Report: (D) Specimen/Source: TISSUE/INTRAOP SPEC Collected: 02/04/2022 17:28 Status: Final Last Updated: 04/10/2022 08:13 (1) LEFT HIP NAIL HEAD FS (Final) No Yeast or Fungal Elements Seen CULT RES (Final) Culture negative for fungus Normal The [facility] Comment on above: Order Comment: LEFT HIP SCREW HEAD TISSUE Performed By: #### 3 0338 #### [facility] [address] [place] [address], [facility] *FUNGAL CULTURE Clinical Report: (D) Specimen/Source: FLUID/INTRAOP SPEC Collected: 02/04/2022 17:26 Status: Final Last Updated: 04/10/2022 08:13 (1) LEFT HIP FLUID #1 FS (Final) No Yeast or Fungal Elements Seen CULT RES (Final) Culture negative for fungus Normal The [facility] Comment on above: Order Comment: LEFT HIP FLUID #2 Performed By: #### 3 0318 #### [facility] [address] [place] [address], [facility] *FUNGAL CULTURE Clinical Report: (D) Specimen/Source: TISSUE/INTRAOP SPEC Collected: 02/04/2022 17:25 Status: Final Last Updated: 04/10/2022 08:13 (1) LEFT HIP FS (Final) No Yeast or Fungal Elements Seen CULT RES (Final) Culture negative for fungus Normal The [facility] Comment on above: Order Comment: LEFT HIP Performed By: #### 3 0323 #### [facility] [address] *TISSUE CULTUREon 02-04-2022 *TISSUE CULTURE Clinical Report: (D) Specimen/Source: TISSUE/INTRAOP SPEC Collected: 02/04/2022 17:29 Status: Final Last Updated: 02/09/2022 06:34 (1) LEFT HIP SCREW HEAD TISSUE GRAM (Final) Moderate Polys No Bacteria Seen CULT RES (Final) No Growth Day 5 Normal The [facility] Comment on above: Order Comment: LEFT HIP SCREW HEAD TISSUE Performed By: #### 3 0338 #### [facility] [address] *TISSUE CULTURE Clinical Report: (D) Specimen/Source: TISSUE/INTRAOP SPEC Collected: 02/04/2022 17:28 Status: Final Last Updated: 02/09/2022 06:33 (1) LEFT HIP NAIL HEAD GRAM (Final) Moderate Polys No Bacteria Seen CULT RES (Final) No Growth Day 5 Normal The [facility] Comment on above: Order Comment: LEFT HIP FLUID #2 Performed By: #### 3 0318 #### [facility] [address] *TISSUE CULTURE Clinical Report: (D) Specimen/Source: TISSUE/INTRAOP SPEC Collected: 02/04/2022 17:25 Status: Final Last Updated: 02/09/2022 06:33 (1) LEFT HIP GRAM (Final) Many Polys No Bacteria Seen CULT RES (Final) No Growth Day 5 Normal The [facility] Comment on above: Order Comment: LEFT HIP SCREW HEAD TISSUE Performed By: #### 3 0338 #### [facility] [address] APTTon 02-04-2022 aPTT Coag (Bld) [Time] 43.4 s High 25.0-35.0 Th e [facility] Comment on above: Order Comment: No: D [...] THIS PURPOSE. Performed By: #### 5 7307, 82977 ####[facility] ARTERIAL BLOOD GAS W/COOXon 02-04-2022 BASE EXCESS -2 mmol/L Normal -2-3 The [facility] Comment on above: Performed By: #### 3 0318 #### [facility] [address] [facility]. [address] COHB 1.5 % Normal 0.0-1.5 The [facility] Comment on above: Performed By: #### 3 0318 #### [facility] [address] DELIVERY SYSTEMS OR VENT Normal The [facility] Comment on above: Performed By: #### 3 0318 #### [facility] [address] [place] [address], [facility] HCO3 (Bld) [Moles/Vol] 22 mmol/L Normal 21-28 Th e [facility] Comment on above: Performed By: #### 3 0318 #### [facility] [address] [facility] [place] [address], [facility] METHB 0.6 % Normal 0.0-1.5 The [facility] Comment on above: Performed By: #### 3 0318 #### [facility] [address] [place] [address], [facility] MODALITY OR VENT Normal The [facility] Comment on above: Performed By: #### 3 0318 #### [facility] [address] [place] [address], [facility] Oxygen (Bld) [Partial pressure] 203 mm[Hg] Critically high 83-108 The [facility] Comment on above: Performed By: #### 3 0318 #### [facility] [address] Oxygen saturation in Blood 97.8 % High 94.0-97.0 The [facility] Comment on above: Performed By: #### 3 0318 #### [facility] [address] [facility]. [address] PCO2 35 mmHg Normal 35-45 The [facility] Comment on above: Performed By: #### 3 0318 #### [facility] [address] pH (Bld) 7.41 [pH] Normal 7.35-7.45 The [facility] Comment on above: Performed By: #### 3 0318 #### [facility] [address] [facility]. [address] THB 10.0 g/dL Low 12.0-16.3 The [facility] Comment on above: Performed By: #### 3 0318 #### [facility] [address] [facility]. [address] BASIC METABOLIC PANELon 04- Calcium [Mass/Vol] 8.6 mg/dL Normal 8.6-10.3 The [facility] Comment on above: Order Comment: evalu ate for Aspiration Performed By: #### 1 0070, [id number], 70664 ####[facility] [facility].[address] Chloride [Moles/Vol] 106 mmol/L Normal 98-107 The [facility] Comment on above: Order Comment: evalu ate for Aspiration Performed By: #### 1 0070, 03624, 66491 ####[facility] [id number], [facility] CO2 [Moles/Vol] 25 mmol/L Normal 21-31 The [facility] Comment on above: Order Comment: evalu ate for Aspiration Performed By: #### 1 0070, 37032, 25470 ####[facility] [place] [address], [place] Creatinine [Mass/Vol] 1.52 mg/dL High 0.70-1.30 The [facility] Comment on above: Order Comment: evalu ate for Aspiration Performed By: #### 1 0070, 00765, 26124 ####[facility] [place] [address], [facility] eGFR- 54 ml/min/1.73sq m Abnormal >60 The [facility] Comment on above: Order Comment: evalu ate for Aspiration Result Comment: Calc ulation may not be valid for patients over 70 years Performed By: #### 1 0070, 91908, 20298 ####[facility] [place] [address], [facility] eGFR- non- 45 ml/min/1.73sq m Abnormal >60 The [facility] Comment on above: Order Comment: evalu ate for Aspiration Result Comment: Calc ulation may not be valid for patients over 70 years Performed By: #### 1 0070, 58624, 10001 ####[facility] [place] [address], [place] Glucose [Mass/Vol] 98 mg/dL Normal 70-100 The [facility] Comment on above: Order Comment: evalu ate for Aspiration Performed By: #### 1 0070, 34148, 39344 ####[facility] [place] [address], [place] Potassium [Moles/Vol] 3.7 mmol/L Normal 3.5-5.1 The [facility] Comment on above: Order Comment: evalu ate for Aspiration Performed By: #### 1 0070, 87517, 57571 ####[facility] [place] [address], [facility] Sodium [Moles/Vol] 139 mmol/L Normal 136-145 The [facility] Comment on above: Order Comment: evalu ate for Aspiration Performed By: #### 1 0070, 52499, 06998 ####[facility] [place] [address], [facility] Urea nitrogen [Mass/Vol] 25 mg/dL Normal 7-25 The [facility] Comment on above: Order Comment: evalu ate for Aspiration Performed By: #### 1 0070, 31233, 70365 ####[facility] [place] [address], [facility] CALCIUM IONIZED CBGLon 02-04 IONIZED CALCIUM 1.11 mmol/L Low 1.13-1.32 The [facility] Comment on above: Performed By: #### 3 0318 #### [facility] [address] [place] [address], [facility] CBC COMPLETE BLOOD COUNTon 0 02-04-2022 Erythrocyte distribution width (RBC) [Ratio] 14.4 % Normal 11.5-15.0 The [facility] Comment on above: Order Comment: LEFT HIP SCREW HEAD TISSUE Performed By: #### 3 0338 #### [facility] [address] [place] [address], [facility] Hematocrit (Bld) [Volume fraction] 34.1 % Low 39.0-50.0 The [facility] Comment on above: Order Comment: LEFT HIP SCREW HEAD TISSUE Performed By: #### 3 0338 #### [facility] [address] [place] [address], [place] Hemoglobin (Bld) [Mass/Vol] 11.3 g/dL Low 13.0-17.0 The [facility] Comment on above: Order Comment: LEFT HIP SCREW HEAD TISSUE Performed By: #### 3 0338 #### [facility] [address] [place] [address], [facility] MCH (RBC) [Entitic mass] 32.1 pg Normal 27.0-33.0 [facility] Comment on above: Order Comment: LEFT HIP SCREW HEAD TISSUE Performed By: #### 3 0338 #### [facility] [address] [place] [address], [facility] MCHC (RBC) [Mass/Vol] 33.1 g/dL Normal 32.0-35.0 The [facility] Comment on above: Order Comment: LEFT HIP SCREW HEAD TISSUE Performed By: #### 3 0338 #### [facility] [address] [place] [address], [facility] MCV (RBC) [Entitic vol] 96.9 fL Normal 82.0-98.0 [facility] [facility] Comment on above: Order Comment: LEFT HIP SCREW HEAD TISSUE Performed By: #### 3 0338 #### [facility] [address] [place] [address], [facility] Nucleated RBC/100 WBC (Bld) [Ratio] 0 % Normal 0-0 [facility] Comment on above: Order Comment: LEFT HIP SCREW HEAD TISSUE Performed By: #### 3 0338 #### [facility] [address] [place] [address], [facility] PLAT CNT 213 10*3/uL Normal 150-400 [facility] Comment on above: Order Comment: LEFT HIP SCREW HEAD TISSUE Performed By: #### 3 0338 #### [facility] [address] [facility] [place] [address], [facility] RBC (Bld) [#/Vol] 3.52 10*6/uL Low 4.20-5.70 [facility] Comment on above: Order Comment: LEFT HIP SCREW HEAD TISSUE Performed By: #### 3 0338 #### [facility] [address] [place] [address], [facility] WBC (Bld) [#/Vol] 8.15 10*3/uL Normal 4.00-10.60 [facility] Comment on above: Order Comment: LEFT HIP SCREW HEAD TISSUE Performed By: #### 3 0338 #### [facility] [address] [place] [address], [facility] MAGNESIUM BLOODon 02-04-2022 Magnesium [Mass/Vol] 2.2 mg/dL Normal 1.9-2.7 [facility] Comment on above: Order Comment: evalu ate for Aspiration Performed By: #### 1 0070, [id number], 89712 ####[facility] PHOSPHORUS BLOODon 2 Phosphate [Mass/Vol] 3.0 mg/dL Normal 2.5-5.0 [facility] Comment on above: Order Comment: No: D o not add to previous draw Performed By: #### 1 0070, [id number], [id number] ####[facility] POC GLUCOSE LABon 02-04-2022 Glucose [Mass/Vol] 99 mg/dL Normal 70-100 [facility] Comment on above: Performed By: #### 8 5499 ####[facility] POC SARS COV2 IDon 2 SARS-CoV-2 (COVID-19) RNA SHALA+probe Ql (Unsp spec) Negative Normal NEGATIVE [facility] Comment on above: Result Comment: ID N [...] under the Clinical Laboratory Improvement Amendments of 1987 (CLIA), 42 U.S.C. ???263a,that meet the requirements to perform high, moderate, or waived complexity tests. The ID NOW COVID-19 assay is also authorized for use at the Point of Care (POC), i.e., in patient care settings operating under a CLIA Certificate of Waiver, Certificate of Compliance, or Certificate of Accreditation. Performed By: #### 3 1921 #### [address] PORTABLE HIP LEFT 1 OR 2 VWS WITH PELVISon 02-04-2022 PORTABLE HIP LEFT 1 OR 2 VWS WITH PELVIS [facility] Department of Radiology [address] [place] [id number] Patient Name: NIELS MCCULLOUGH : 1945 Sex: M Age: Race: White Pt. Location: [id number] Patient Status: I Ordered Date: 02/04/2022 8:00:00 [...] fracture Electronically signed: Nohemi Graves. Transcribed by: [email or web address], User Resident: Electronically Signed by: NOHEMI GRAVES @ 02/04/2022 09:32 PM Normal [facility] Comment on above: Order Comment: evalu ate for Aspiration POTASSIUM WHOLE BLOOD CBGLon 02-04-2022 Potassium [Moles/Vol] 3.5 mmol/L Normal 3.4-5.2 [facility] Comment on above: Performed By: #### 3 0318 #### [facility] [address] [facility]. [address] PROTHROMBIN TIMEon 2 INR Coag (PPP) [Relative time] 1.70 {INR} High 0.91-1.16 [facility] Comment on above: Order Comment: No: D [...] CHEST 1995;108:231S-246S. Performed By: #### 5 7307, 15482 ####[facility] [facility] [place] [address], [facility] PT Coag (PPP) [Time] 20.0 s High 12.3-14.8 [facility] Comment on above: Order Comment: No: D o not add to previous draw Result Comment: ALL RESULTS MUST BE INTERPRETED WITH RESPECT TO BLOOD DRAWING ARTIFACT OR DILUTION ERROR OF ANTICOAGULANT AT THE TIME OF SAMPLING. Performed By: #### 5 7307, 18335 ####[facility] [facility] [place] [address], [facility] INR Coag (PPP) [Relative time] 2.90 {INR} High 0.91-1.16 [facility] Comment on above: Order Comment: 12 ho [...] CHEST 1995;108:231S-246S. Performed By: #### 5 6101 ####[facility] [place] [address], [facility] PT Coag (PPP) [Time] 30.1 s High 12.3-14.8 [facility] Comment on above: Order Comment: 12 ho urs post vitamin K administration/pre-procedure warfarin reversalNo: Do not add to previous draw Result Comment: ALL RESULTS MUST BE INTERPRETED WITH RESPECT TO BLOOD DRAWING ARTIFACT OR DILUTION ERROR OF ANTICOAGULANT AT THE TIME OF SAMPLING. Performed By: #### 5 6101 ####[facility] [place] [address], [facility] RBC'S 1 UNITon 02-04-2022 CROSSMATCH INTERP 1 COMP Normal [facility] Comment on above: Performed By: #### 8 6001 ####[facility] [facility] [place] [address], [facility] PRODUCT CODE 1 E0336 Normal [facility] Comment on above: Performed By: #### 8 6001 ####[facility] [facility] [place] [address], [facility] PRODUCT STATUS 1 RE Normal [facility] Comment on above: Result Comment: Resu lt changed by IF on 02/08/2022 07:21. The previous value was XM. Performed By: #### 8 6001 ####[facility] [facility] [place] [address], [facility] UNIT ABO 1 O Normal [facility] Comment on above: Performed By: #### 8 6001 ####[facility] [place] [address], [facility] UNIT ID 1 [id number] Normal [facility] Comment on above: Performed By: #### 8 6001 ####[facility] [place] [address], [place] UNIT RH 1 Negative Normal [facility] Comment on above: Performed By: #### 8 6001 ####[facility] [place] [address], [facility] SODIUM WHOLE BLOOD CBGLon Sodium [Moles/Vol] 136.0 mmol/L Normal 136.0-146 . 0 [facility] Comment on above: Performed By: #### 3 0318 #### [facility] [address] [facility] [place] [address], [facility] TYPE AND SCREENon 02-04-2022 ABO INTERPRETATION O Normal [facility] Comment on above: Performed By: #### 3 0318 #### [facility] [address] [facility]. [address] RH INTERPRETATION Negative Normal [facility] Comment on above: Performed By: #### 3 0318 #### [facility] [address] [facility]. [address] APTTon 02-03-2022 aPTT Coag (Bld) [Time] 64.0 s High 25.0-35.0 Th e [facility] Comment on above: Result Comment: ALL RESULTS [...] THIS PURPOSE. Performed By: #### 5 6101, 45446 ####[facility] [facility] [place] [address], [facility] CBC W/DIFFon 02-03-2022 ABS IMM GRANS 0.0 10*3/uL Normal 0.0-0.2 [facility] Comment on above: Performed By: #### 3 0338 #### [facility] [address] [place] [address], [facility] ABS NEUTROPHILS 5.8 10*3/uL Normal 1.6-7.6 [facility] Comment on above: Performed By: #### 3 0338 #### [facility] [address] [place] [address], [facility] Basophils (Bld) [#/Vol] 0.0 10*3/uL Normal 0.0-0.2 [facility] Comment on above: Performed By: #### 3 0338 #### [facility] [address] [place] [address], [facility] Basophils/100 WBC (Bld) 0.5 % Normal 0.0-1.0 [facility] Comment on above: Performed By: #### 3 0338 #### [facility] [address] [place] [address], [facility] Eosinophils (Bld) [#/Vol] 0.2 10*3/uL Normal 0.0-0.5 [facility] Comment on above: Performed By: #### 3 0338 #### [facility] [address] [place] [address], [facility] Eosinophils/100 WBC (Bld) 2.1 % Normal 0.0-6.0 [facility] Comment on above: Performed By: #### 3 0338 #### [facility] [address] [place] [address], [facility] Erythrocyte distribution width (RBC) [Ratio] 14.2 % Normal 11.5-15.0 [facility] Comment on above: Performed By: #### 3 0338 #### [facility] [address] [place] [address], [facility] Hematocrit (Bld) [Volume fraction] 33.2 % Low 39.0-50.0 [facility] Comment on above: Performed By: #### 3 0338 #### [facility] [address] [place] [address], [facility] Hemoglobin (Bld) [Mass/Vol] 11.3 g/dL Low 13.0-17.0 [facility] Comment on above: Performed By: #### 3 0338 #### [facility] [address] [facility] [address], [facility] IMMATURE GRANS 0.4 % Normal 0.0-1.0 [facility] Comment on above: Performed By: #### 3 0338 #### [facility] [address] [place] [address], [facility] Lymphocytes (Bld) [#/Vol] 1.0 10*3/uL Low 1.2-4.0 [facility] Comment on above: Performed By: #### 3 0338 #### [facility] [address] [place] [address], [facility] Lymphocytes/100 WBC (Bld) 12.6 % Low 20.0-45.0 [facility] Comment on above: Performed By: #### 3 0338 #### [facility] [address] [place] [address], [facility] MCH (RBC) [Entitic mass] 32.2 pg Normal 27.0-33.0 [facility] Comment on above: Performed By: #### 3 0338 #### [facility] [address] [place] [address], [facility] MCHC (RBC) [Mass/Vol] 34.0 g/dL Normal 32.0-35.0 [facility] Comment on above: Performed By: #### 3 0338 #### [facility] [address] [place] [address], [facility] MCV (RBC) [Entitic vol] 94.6 fL Normal 82.0-98.0 [facility] Comment on above: Performed By: #### 3 0338 #### [facility] [address] [place] [address], [facility] Monocytes (Bld) [#/Vol] 0.7 10*3/uL Normal 0.1-1.0 [facility] Comment on above: Performed By: #### 3 0338 #### [facility] [address] [place] [address], [facility] MONOS 9.2 % Normal 5.0-12.0 [facility] Comment on above: Performed By: #### 3 0338 #### [facility] [address] [place] [address], [facility] Neutrophils/100 WBC (Bld) 75.2 % High 40.0-72.0 [facility] Comment on above: Performed By: #### 3 0338 #### [facility] [address] [facility] [place] [address], [facility] Nucleated RBC/100 WBC (Bld) [Ratio] 0 % Normal 0-0 [facility] Comment on above: Performed By: #### 3 0338 #### [facility] [address] [place] [address], [facility] PLAT CNT 190 10*3/uL Normal 150-400 [facility] Comment on above: Performed By: #### 3 0338 #### [facility] [address] [facility] [place] [address], [facility] RBC (Bld) [#/Vol] 3.51 10*6/uL Low 4.20-5.70 [facility] Comment on above: Performed By: #### 3 0338 #### [facility] [address] [facility] [place] [address], [facility] WBC (Bld) [#/Vol] 7.75 10*3/uL Normal 4.00-10.60 [facility] Comment on above: Performed By: #### 3 0338 #### [facility] [address] [place] [address], [facility] COMP METABOLIC PANELon 02-03 Albumin [Mass/Vol] 3.7 g/dL Normal 3.5-5.7 [facility] Comment on above: Performed By: #### 3 0318 #### [facility] [address] [place] [address], [place] ALKALINE PHOSPH 89 IU/L Normal 34-104 [facility] Comment on above: Performed By: #### 3 0318 #### [facility] [address] [place] [address], [place] ALT [Catalytic activity/Vol] 10 U/L Normal 7-52 [facility] Comment on above: Performed By: #### 3 0318 #### [facility] [address] [place] [address], [place] AST [Catalytic activity/Vol] 16 U/L Normal 13-39 [facility] Comment on above: Performed By: #### 3 0318 #### [facility] [address] [place] [address], [place] Bilirubin [Mass/Vol] 0.6 mg/dL Normal 0.3-1.0 [facility] Comment on above: Performed By: #### 3 0318 #### [facility] [address] [place] [address], [place] Calcium [Mass/Vol] 8.6 mg/dL Normal 8.6-10.3 [facility] Comment on above: Performed By: #### 3 0318 #### [facility] [address] [place] [address], [place] Chloride [Moles/Vol] 103 mmol/L Normal 98-107 [facility] Comment on above: Performed By: #### 3 0318 #### [facility] [address] [place] [address], [place] CO2 [Moles/Vol] 27 mmol/L Normal 21-31 [facility] Comment on above: Performed By: #### 3 0318 #### [facility] [address] [place] [address], [place] Creatinine [Mass/Vol] 1.62 mg/dL High 0.70-1.30 [facility] Comment on above: Performed By: #### 3 0318 #### [facility] [address] [place] [address], [place] eGFR- 51 ml/min/1.73sq m Abnormal >60 [facility] Comment on above: Result Comment: Calc ulation may not be valid for patients over 70 years Performed By: #### 3 0318 #### [facility] [address] [place] [address], [place] eGFR- non- 42 ml/min/1.73sq m Abnormal >60 [facility] Comment on above: Result Comment: Calc ulation may not be valid for patients over 70 years Performed By: #### 3 0318 #### [facility] [address] [place] [address], [place] Glucose [Mass/Vol] 90 mg/dL Normal 70-100 [facility] Comment on above: Performed By: #### 3 0318 #### [facility] [address] [place] [address], [place] Potassium [Moles/Vol] 3.5 mmol/L Normal 3.5-5.1 [facility] Comment on above: Performed By: #### 3 0318 #### [facility] [address] [place] [address], [place] Protein [Mass/Vol] 6.6 g/dL Normal 6.0-8.3 [facility] Comment on above: Performed By: #### 3 0318 #### [facility] [address] [place] [address], [place] Sodium [Moles/Vol] 138 mmol/L Normal 136-145 [facility] Comment on above: Performed By: #### 3 0318 #### [facility] [address] [place] [address], [place] Urea nitrogen [Mass/Vol] 23 mg/dL Normal 7-25 [facility] Comment on above: Performed By: #### 3 0318 #### [address] POC SARS COV2 ANTIGEN NEGATI VEon 02-03-2022 POC SARS COV2 ANTIGEN NEG Negative Normal NEGATIVE [facility] Comment on above: Result Comment: Nega tive [...] antigen from SARS-CoV-2 in direct nasopharyngeal swab (WIND[employer]ELOPER) specimens from individuals who are suspected of [...] Accreditation. Performed By: #### 3 2044 #### [address] PORTABLE CHEST 1 VIEWon 01-25 PORTABLE CHEST 1 VIEW [facility] Department of Radiology [address] [place] [address] Patient Name: NIELS MCCULLOUGH : 1945 Sex: M Age: Race: White Pt. Location: [facility] Patient Status: E Ordered Date: 02/03/2022 8:05:00 [...] failure. Electronically signed: Isidro Nieto. Transcribed by: [email or web address], User Resident: Electronically Signed by: ISIDRO NIETO @ 02/03/2022 08:48 AM Normal [facility] Comment on above: Order Comment: evalu ate for Aspiration PROTHROMBIN TIMEon 2 INR Coag (PPP) [Relative time] 3.58 {INR} High 0.91-1.16 [facility] Comment on above: Order Comment: No: D o not add to previous draw Result Comment: [facility] P RECOMMENDED INR FOR WARFARIN THERAPY --------- [...] CHEST 1995;108:231S-246S. Performed By: #### 5 6101 ####[facility] PT Coag (PPP) [Time] 35.4 s High 12.3-14.8 [facility] Comment on above: Order Comment: No: D o not add to previous draw Result Comment: ALL RESULTS MUST BE INTERPRETED WITH RESPECT TO BLOOD DRAWING ARTIFACT OR DILUTION ERROR OF ANTICOAGULANT AT THE TIME OF SAMPLING. Performed By: #### 5 6101 ####[facility] [facility].[address] INR Coag (PPP) [Relative time] 3.62 {INR} High 0.91-1.16 [facility] Comment on above: Result Comment: [facility] P [...] 1995;108:231S-246S. Performed By: #### 3 0338 #### [facility] [address] [place] [address], [facility] PT Coag (PPP) [Time] 35.8 s High 12.3-14.8 [facility] Comment on above: Result Comment: ALL RESULTS MUST BE INTERPRETED WITH RESPECT TO BLOOD DRAWING ARTIFACT OR DILUTION ERROR OF ANTICOAGULANT AT THE TIME OF SAMPLING. Performed By: #### 3 0338 #### [facility] [address] [place] [address], [facility] RBC'S 2 UNITSon 02-03-2022 CROSSMATCH INTERP 1 COMP Normal [facility] Comment on above: Performed By: #### 8 6002 ####[facility] [facility] [place] [address], [facility] CROSSMATCH INTERP 2 COMP Normal [facility] Comment on above: Performed By: #### 8 6002 ####[facility] [facility] [place] [address], [facility] PRODUCT CODE 1 E0336 Normal [facility] Comment on above: Performed By: #### 8 6002 ####[facility] [facility] [place] [address], [facility] PRODUCT CODE 2 E0336 Normal [facility] Comment on above: Performed By: #### 8 6002 ####[facility] [facility] [place] [address], [facility] PRODUCT STATUS 1 RE Normal [facility] Comment on above: Result Comment: Resu lt changed by IF on 02/04/2022 19:14. The previous value was XM. Result changed by IF on 02/04/2022 20:42. The previous value was IS. Result changed by IF on 02/08/2022 07:21. The previous value was XM. Performed By: #### 8 6002 ####[facility] [place] [address], [facility] PRODUCT STATUS 2 RE Normal [facility] Comment on above: Result Comment: Resu lt changed by IF on 02/04/2022 19:16. The previous value was XM. Performed By: #### 8 6002 ####[facility] [place] [address], [facility] UNIT ABO 1 O Normal [facility] Comment on above: Performed By: #### 8 6002 ####[facility] [place] [address], [facility] UNIT ABO 2 O Normal [facility] Comment on above: Performed By: #### 8 6002 ####[facility] [place] [address], [facility] UNIT ID 1 [id number] Normal [facility] Comment on above: Performed By: #### 8 6002 ####[facility] [place] [address], [facility] UNIT ID 2 [id number] Normal [facility] Comment on above: Performed By: #### 8 6002 ####[facility] [place] [address], [facility] UNIT RH 1 Negative Normal [facility] Comment on above: Performed By: #### 8 6002 ####[facility] [place] [address], [facility] UNIT RH 2 Negative Normal [facility] Comment on above: Performed By: #### 8 6002 ####[facility] [place] [address], [place] UA w/Reflex Cultureon 2017 Acetoacetic Acid,Ur Negative Normal NEG [facility] Comment on above: Performed By: #### U AXDICKO ####[address] [address] Bilirubin, SemiQt,Ur Negative Normal NEG [facility] Comment on above: Performed By: #### U AXERICICAO ####[address] [address] Color YELLOW Normal YEL [facility] Comment on above: Performed By: #### U ALYSSIA ALBRECHT ####[address] [address] Glucose,Semi-qnt,Ur Negative Normal NEG [facility] Comment on above: Performed By: #### ERIC BRADFORDICAO ####[address] [place] [address] Hemoglobin, Ur Negative Normal NEG [facility] Comment on above: Performed By: #### DICK BRADFORDO ####[address] [place] [address] Leuckocyte Esterase Negative Normal NEG [facility] Comment on above: Performed By: #### U AXERICICAO ####[address] [place] [address] Nitrite,Ur Negative Normal NEG [facility] Comment on above: Performed By: #### U AX UMICAO ####[address] [address] PH,Ur 7.0 Normal 5.0-8.0 [facility] Comment on above: Performed By: #### U AX UMICAO ####[address] [place] [address] Protein, Semi-qnt,Ur Negative Normal NEG [facility] Comment on above: Performed By: #### ALYSSIA BRADFORD ####[address] [address] Spec. [place],Ur 1.005 Normal 1.000-1.03 0 [facility] Comment on above: Performed By: #### ALYSSIA BRADFORD ####[address] [address] Turbidity CLOUDY Abnormal CLEAR [facility] Comment on above: Performed By: #### ALYSSIA BRADFORD ####[address] [address] Urobilinogen,Ur Normal Normal NORM [facility] Comment on above: Performed By: #### ALYSSIA BRADFORD ####[address] [address] Comment NOT REPORTED Normal [facility] Comment on above: Performed By: #### ALYSSIA BRADFORD ####[address] [address] Urinalysis,Microon 8 ----- Normal [facility] Comment on above: Performed By: #### ALYSSIA BRADFORD ####[address] [address] Bacteria FEW Abnormal NONE [facility] Comment on above: Performed By: #### ALYSSIA BRADFORD ####[address] [address] Epithelial cells 0 TO 2 Normal [facility] Comment on above: Performed By: #### ALYSSIA BRADFORD ####[address] [place] [address] RBC Test strip #/vol (U) 0 TO 2 Normal [facility] Comment on above: Performed By: #### U AX, UMICAO ####[address] [address] Urine WBC's 0 TO 2 Normal [facility] Comment on above: Performed By: #### U AX, UMICAO ####[address] [address] Amorphous Sediment NOT REPORTED Normal NONE [facility] Comment on above: Performed By: #### U AX UMICAO ####[address] [address] Casts NOT REPORTED Normal [facility] Comment on above: Performed By: #### U AX, UMICAO ####[address] [address] Crystals NOT REPORTED Normal NONE [facility] Comment on above: Performed By: #### U AX, UMICAO ####[address] [address] Epithelial, Renal NOT REPORTED Normal 0 [facility] Comment on above: Performed By: #### U AX, UMICAO ####[address] [address] Mucus Strands NOT REPORTED Normal NONE [facility] Comment on above: Performed By: #### U AX, UMICAO ####[address] [place] [address] Other Observations NOT REPORTED Normal NREQ [facility] Comment on above: Performed By: #### U AX, UMICAO ####[address] [address] Trichomonas NOT REPORTED Normal NONE [facility] Comment on above: Performed By: #### U ALYSSIA ALBRECHT ####[facility] [facility] [place] [address] Yeast NOT REPORTED Normal NONE [facility] Comment on above: Performed By: #### U ALYSSIA ALBRECHT ####[facility] [facility] [place] [address] Acetaminophenon 08-16-2018 Acetaminophen mass conc <5 Low 10-30 [facility] Comment on above: Performed By: #### T ABA HERNADEZ, BMP ####[address] [place] [address] CBC with Diffon 08-16-2018 Abs. Basophil 0.03 k/uL Normal 0.00-0.20 [facility] Comment on above: Performed By: #### T ABA HERNADEZ, BMP ####[address] [place] [address] Abs.Imm.Granulocyte <0.03 Normal 0.00-0.30 [facility] Comment on above: Performed By: #### T ABA HERNADEZ, BMP ####[address] [place] [address] Abs.Neutrophil (Seg) 3.19 k/uL Normal 1.50-8.10 [facility] Comment on above: Performed By: #### T ABA HERNADEZ, BMP ####[address] [place] [address] Basophils/100 WBC Auto (Bld) 1 % Normal 0-2 [facility] Comment on above: Performed By: #### T ABA HERNADEZ, BMP ####[address] [place] [address] Eosinophils Auto #/vol (Bld) 0.17 10*3/uL Normal 0.00-0.44 [facility] Comment on above: Performed By: #### T ABA HERNADEZ, BMP ####[address] , [place] [address] Eosinophils/100 WBC Auto (Bld) 3 % Normal 1-4 [facility] Comment on above: Performed By: #### T MARICARMEN CDP, BMP ####[address] , [place] [address] Erythrocyte distribution width Auto Ratio (RBC) 12.6 % Normal 11.8-14.4 [facility] Comment on above: Performed By: #### T ABA HERNADEZ, BMP ####[address] , [place] [address] Hematocrit Auto Volume Fraction (Bld) 39.4 % Low 40.7-50.3 [facility] Comment on above: Performed By: #### T ABA HERNADEZ, BMP ####[address] , [place] [address] Hemoglobin mass conc (Bld) 13.5 g/dL Normal 13.0-17.0 [facility] Comment on above: Performed By: #### T ABA HERNADEZ, BMP ####[address] , [place] [address] Immature granulocytes #/vol (Bld) 0 % Normal 0 [facility] Comment on above: Performed By: #### T ABA HRENADEZ, BMP ####[address] , [place] [address] Lymphocytes Auto #/vol (Bld) 1.54 10*3/uL Normal 1.10-3.70 [facility] Comment on above: Performed By: #### T ABA HERNADEZ, BMP ####[address] [place] [address] Lymphocytes/100 WBC Auto (Bld) 28 % Normal 24-43 [facility] Comment on above: Performed By: #### T ABA HERNADEZ, BMP ####[address] , [facility]83 MCH Auto Entitic mass (RBC) 33.4 pg Normal 25.2-33.5 [facility] Comment on above: Performed By: #### T ABA HERNADEZ, BMP ####[address] [place] [id number] MCHC Auto mass conc (RBC) 34.3 g/dL Normal 28.4-34.8 [facility] Comment on above: Performed By: #### T ABA HERNADEZ, BMP ####[address] [place] [address] MCV Auto Entitic volume (RBC) 97.5 fL Normal 82.6-102.9 [facility] Comment on above: Performed By: #### T ABA HERNADEZ, BMP ####[address] [place] [address] Monocytes Auto #/vol (Bld) 0.66 10*3/uL Normal 0.10-1.20 [facility] Comment on above: Performed By: #### T ABA HERNADEZ, BMP ####[address] , [facility]83 Monocytes/100 WBC Auto (Bld) 12 % Normal 3-12 [facility] Comment on above: Performed By: #### T ABA HERNADEZ, BMP ####[address] , [facility]83 Neutrophil (Seg) 56 % Normal 36-65 [facility] Comment on above: Performed By: #### T ABA HERNADEZ, BMP ####[address] [place] [address] NRBC Automated 0.0 per 100 WBC Normal 0.0 [facility] Comment on above: Performed By: #### T ABA HERNADEZ, BMP ####[address] [place] [address] Platelet mean volume Auto Entitic volume (Bld) 8.7 fL Normal 8.1-13.5 [facility] Comment on above: Performed By: #### T ABA HERNADEZ, BMP ####[address] [place] [address] Platelets Auto #/vol (Bld) 163 10*3/uL Normal 138-453 [facility] Comment on above: Performed By: #### T MARICARMEN, CDP, BMP ####[address] [place] [address] RBC Auto #/vol (Bld) 4.04 10*6/uL Low 4.21-5.77 [facility] Comment on above: Performed By: #### T ABA HERNADEZ, BMP ####[address] [place] [address] WBC Auto #/vol (Bld) 5.6 10*3/uL Normal 3.5-11.3 [facility] Comment on above: Performed By: #### T ABA HERNADEZ, BMP ####[address] [place] [address] Auto Diff Performed NOT REPORTED Normal [facility] Comment on above: Performed By: #### T ABA HERNADEZ, BMP ####[address] [place] [address] Platelets Auto #/vol (Bld) NOT REPORTED Normal [facility] Comment on above: Performed By: #### T MARICARMEN, CDP, BMP ####[address] [place] [address] RBC morphology finding Nom (Bld) NOT REPORTED Normal [facility] Comment on above: Performed By: #### T MARICARMEN, CDP, BMP ####[address] [place] [address] WBC Morphology NOT REPORTED Normal [facility] Comment on above: Performed By: #### T MARICARMEN, CDP, BMP ####[address] [place] [address] Comp Metabolic Profon 2017 (cont.) Normal [facility] Comment on above: Result Comment: Aver age GFR for 70 or more years old: 75 mL/min/1.73sq mChronic Kidney Disease: <60 mL/min/1.73sq mKidney failure: <15 mL/min/1.73sq meGFR calculated using average adult body mass. Additional eGFR calculator available at:http://www.[employer]/multiple_crcl_2012.htm Performed By: #### T ABA HERNADEZ BMP ####[address] [place] [address] Albumin mass conc 4.0 g/dL Normal 3.5-5.2 [facility] Comment on above: Performed By: #### T ABA HERNADEZ BMP ####[address] [place] [address] Albumin/Globulin mass ratio 1.7 {ratio} Normal 1.0-2.5 [facility] Comment on above: Performed By: #### ABA OLSON BMP ####[address] [place] [address] Alkaline Phos 71 U/L Normal 40-129 [facility] Comment on above: Performed By: #### T ABA HERNADEZ, BMP ####[address] [place] [address] ALT enzyme act/vol 10 U/L Normal 5-41 [facility] Comment on above: Performed By: #### T ABA HERNADEZ, BMP ####[address] [place] [address] Anion gap 3 molar conc 10 mmol/L Normal 9-17 [facility] Comment on above: Performed By: #### T ABA HERNADEZ, BMP ####[address] [place] [address] AST enzyme act/vol 14 U/L Normal <40 [facility] Comment on above: Performed By: #### T ABA HERNADEZ, BMP ####[address] [place] [address] Bilirubin Ql (U) 0.57 mg/dL Normal 0.3-1.2 [facility] Comment on above: Performed By: #### T ABA HERNADEZ, BMP ####[address] [place] [address] BUN/CRE Ratio 9 Normal 9-20 [facility] Comment on above: Performed By: #### T ABA HERNADEZ BMP ####[address] [place] [address] Calcium mass conc 8.9 mg/dL Normal 8.6-10.4 [facility] Comment on above: Performed By: #### T ABA HERNADEZ, BMP ####[address] [place] [address] Chloride molar conc 95 mmol/L Low 98-107 [facility] Comment on above: Performed By: #### T ABA HERNADEZ, BMP ####[address] [place] [address] CO2 molar conc 29 mmol/L Normal 20-31 [facility] Comment on above: Performed By: #### T ABA HERNADEZ, BMP ####[address] [place] [address] Creatinine mass conc 1.42 mg/dL High 0.70-1.20 [facility] Comment on above: Performed By: #### T ABA HERNADEZ, BMP ####[address] [place] [address] GFR, Amer 60 mL/min Low >60 [facility] Comment on above: Performed By: #### T ABA HERNADEZ, BMP ####[address] [place] [address] GFR,non Amer 49 mL/min Low >60 [facility] Comment on above: Performed By: #### T ABA HERNADEZ, BMP ####[address] [place] [address] Glucose mass conc 111 mg/dL High 70-99 [facility] Comment on above: Performed By: #### T ABA HERNADEZ, BMP ####[address] [place] [address] Potassium molar conc 4.0 mmol/L Normal 3.7-5.3 [facility] Comment on above: Performed By: #### T ABA HERNADEZ, BMP ####[address] [place] [address] Protein mass conc 6.4 g/dL Normal 6.4-8.3 [facility] Comment on above: Performed By: #### T ABA HERNADEZ, BMP ####[address] [place] [address] Sodium molar conc 134 mmol/L Low 135-144 [facility] Comment on above: Performed By: #### T ABA HERNADEZ, BMP ####[address] [place] [address] Staging: Normal [facility] Comment on above: Result Comment: Stag e 1: Some kidney damage normal GFRStage 2: Mild kidney damage GFR 60-89Stage 3: Moderate kidney damage GFR 30-59Stage 4: Severe kidney damage GFR 15-29Stage 5: Severe kidney damage GFR <15ESRD - chronic treatment by dialysis or transplant Performed By: #### T ABA HERNADEZ, BMP ####[address] [place] [address] Urea nitrogen mass conc 13 mg/dL Normal 8-23 [facility] Comment on above: Performed By: #### T ABA HERNADEZ, BMP ####[address] [place] [address] Drug Scr, Abuse, Uron 2017 Amphetamine(s),Ur Negative Normal NEG [facility] Comment on above: Performed By: #### T SH, CDP, BMP ####[address] [place] [address] Barbiturate(s),Ur Negative Normal [facility] Comment on above: Performed By: #### T SH, CDP, BMP ####[address] [place] [address] Base excess Calculated molar conc (Bld) Negative Normal NEG [facility] Comment on above: Performed By: #### T SH, CDP, BMP ####[address] [place] [address] Benzodiazepine(s) Positive Abnormal [facility] Comment on above: Performed By: #### T SH, CDP, BMP ####[facility] [address] [place] [address] Buprenorphrine, Ur Negative Normal [facility] Comment on above: Performed By: #### T SH, CDP, BMP ####[facility] [address] [place] [address] Cannabinoid(s),Ur Negative Normal [facility] Comment on above: Performed By: #### T SH, CDP, BMP ####[facility] [address] [place] [address] Methadone Ql (U) Negative Normal [facility] Comment on above: Performed By: #### T SH, CDP, BMP ####[address] [place] [address] Methamphetamine, Ur Negative Normal [facility] Comment on above: Performed By: #### T SH, CDP, BMP ####[address] [place] [address] Opiate(s), Ur Negative Normal NEG [facility] Comment on above: Performed By: #### T MARICARMEN CDP, BMP ####[address] [place] [address] Oxycodone, Urine Negative Normal NEG [facility] Comment on above: Performed By: #### T MARICARMEN CDP, BMP ####[address] [place] [address] Phencyclidine, Ur Negative Normal NEG [facility] Comment on above: Performed By: #### T MARICARMEN CDP, BMP ####[address] [place] [address] Propoxyphene,Urine Negative Normal NEG [facility] Comment on above: Performed By: #### T MARICARMEN CDP, BMP ####[address] [place] [address] Tricyclic antidepressants Screen Ql (U) Negative Normal NEG [facility] Comment on above: Result Comment: Drug screen results are to be used for medical purposes only. All positive results are unconfirmed. Testing for employment or legal uses should be sent to a reference laboratory for confirmation. Performed By: #### T ABA HERNADEZ, BMP ####[address] [place] [address] Interpretive Info NOT REPORTED Normal [facility] Comment on above: Performed By: #### T ABA HERNADEZ, BMP ####[address] [place] [address] MDMA, Urine NOT REPORTED Normal NEG [facility] Comment on above: Performed By: #### T ABA HERNADEZ, BMP ####[address] , [place] [address] ED Noteon 08-16-2018 HIM IP Note OR Emergency Response Technician Normal [facility] HIM IP Note OR Emergency Response Technician Normal [facility] HIM IP Note OR Emergency Response Technician Normal [facility] HIM IP Note OR Emergency Response Technician Normal [facility] HIM IP Note OR Emergency Response Technician Normal [facility] HIM IP Note OR Emergency Response Technician Normal [facility] HIM IP Note OR Emergency Response Technician Normal [facility] HIM IP Note OR Emergency Response Technician Normal [facility] HIM IP Note OR Emergency Response Technician Normal [facility] HIM IP Note OR Emergency Response Technician Normal [facility] HIM IP Note OR Emergency Response Technician Normal [facility] HIM IP Note OR Emergency Response Technician Normal [facility] HIM IP Note OR Emergency Response Technician Normal [facility] HIM IP Note OR Emergency Response Technician Normal [facility] HIM IP Note OR Emergency Response Technician Normal [facility] HIM IP Note OR Emergency Response Technician Normal [facility] HIM IP Note OR Emergency Response Technician Normal [facility] HIM IP Note OR Emergency Response Technician Normal [facility] HIM IP Note OR Emergency Response Technician Normal [facility] ED Provider Noteon 8 HIM IP Note OR Emergency Response Technician Normal [facility] Ethanol Alcoholon 08-16-2018 Ethanol mass conc mg/dL Normal <10 [facility] Comment on above: Performed By: #### T ABA HERNADEZ, BMP ####[address] [place] [address] Ethanol percent <0.010 Normal [facility] Comment on above: Performed By: #### T ABA HERNADEZ, BMP ####[address] [place] [address] Salicylateon 08-16-2018 Salicylate <1 Low 3-10 [facility] Comment on above: Performed By: #### T ABA HERNADEZ, BMP ####[facility] [address] [place] [address] Thyroid Stim. Horm.on 2017 Thyrotropin Qn 0.80 m[IU]/L Normal 0.30-5.00 [facility] Comment on above: Performed By: #### T ABA HERNADEZ, BMP ####[address] [place] [address] Thyroxine, Freeon 08-16-2018 Thyroxine, Free 1.43 ng/dL Normal 0.93-1.70 [facility] Comment on above: Performed By: #### T ABA HERNADEZ, BMP ####[address] [place] [address] Urinalysis w/ Microon 2017 ----- Normal [facility] Comment on above: Performed By: #### T MARICARMEN CDP, BMP ####[address] [place] [address] Acetaminophen mass conc Negative Normal NEG [facility] Comment on above: Performed By: #### T MARICARMEN CDP, BMP ####[address] [place] [address] Bacteria TRACE Abnormal NONE [facility] Comment on above: Performed By: #### T ABA HERNADEZ, BMP ####[address] [place] [address] Bilirubin, SemiQt,Ur Negative Normal NEG [facility] Comment on above: Performed By: #### T ABA HERNADEZ, BMP ####[address] [place] [address] Color YELLOW Normal YEL [facility] Comment on above: Performed By: #### T ABA HERNADEZ, BMP ####[address] [place] [address] Epithelial cells 0 TO 2 Normal 0-5 [facility] Comment on above: Performed By: #### T ABA HERNADEZ, BMP ####[address] [place] [address] Glucose,Semi-qnt,Ur Negative Normal [facility] Comment on above: Performed By: #### T ABA HERNADEZ, BMP ####[address] [place] [address] Hemoglobin, Ur Negative Normal [facility] Comment on above: Performed By: #### T ABA HERNADEZ, BMP ####[address] [place] [address] Leuckocyte Esterase Negative Normal NEG [facility] Comment on above: Performed By: #### T SH, CDP, BMP ####[address] [place] [address] Nitrite,Ur Negative Normal NEG [facility] Comment on above: Performed By: #### T SH, CDP, BMP ####[address] [place] [address] PH,Ur 7.0 Normal 5.0-9.0 [facility] Comment on above: Performed By: #### T SH, CDP, BMP ####[address] [place] [address] Protein mass conc Negative Normal NEG [facility] Comment on above: Performed By: #### T SH, CDP, BMP ####[address] [place] [address] RBC Test strip #/vol (U) 0 TO 2 Normal 0-2 [facility] Comment on above: Performed By: #### T SH, CDP, BMP ####[address] [place] [address] Spec. [place],Ur <1.005 Low 1.010-1.02 0 [facility] Comment on above: Performed By: #### T SH, CDP, BMP ####[address] [place] [address] Turbidity CLEAR Normal CLEAR [facility] Comment on above: Performed By: #### T SH, CDP, BMP ####[address] [place] [address] Urine WBC's 0 TO 2 Normal 0-5 [facility] Comment on above: Performed By: #### T SH, CDP, BMP ####[address] [place] [address] Urobilinogen,Ur Normal Normal NORM [facility] Comment on above: Performed By: #### T SH, CDP, BMP ####[address] [place] [address] Amorphous Sediment NOT REPORTED Normal NONE [facility] Comment on above: Performed By: #### T SH, CDP, BMP ####[address] [place] [address] Casts NOT REPORTED Normal [facility] Comment on above: Performed By: #### T MARICARMEN, CDP, BMP ####[address] [place] [address] Comment NOT REPORTED Normal [facility] Comment on above: Performed By: #### T MARICARMEN CDP, BMP ####[address] [place] [address] Crystals NOT REPORTED Normal NONE [facility] Comment on above: Performed By: #### T ABA HERNADEZ, BMP ####[address] [place] [address] Epithelial, Renal NOT REPORTED Normal 0 [facility] Comment on above: Performed By: #### T ABA HERNADEZ, BMP ####[address] [place] [address] Mucus Strands NOT REPORTED Normal NONE [facility] Comment on above: Performed By: #### T ABA HERNADEZ, BMP ####[address] [place] [address] Other Observations NOT REPORTED Normal NREQ [facility] Comment on above: Performed By: #### T MARICARMEN, CDP, BMP ####[address] [place] [address] Trichomonas NOT REPORTED Normal NONE [facility] Comment on above: Performed By: #### T SH, CDP, BMP ####[address] [place] [address] Yeast NOT REPORTED Normal NONE [facility] Comment on above: Performed By: #### T ABA HERNADEZ, BMP ####[address] , [place] [address] APTTon 08-06-2018 aPTT Coag time (Bld) 28.4 s Normal 23.2-34.4 [facility] Comment on above: Performed By: #### T ABA HERNADEZ, BMP ####[address] , [place] [address] CBC with Diffon 08-06-2018 Abs. Basophil 0.03 k/uL Normal 0.00-0.20 [facility] Comment on above: Performed By: #### T ABA HERNADEZ, BMP ####[address] [place] [address] Abs.Imm.Granulocyte <0.03 Normal 0.00-0.30 [facility] Comment on above: Performed By: #### T ABA HERNADEZ, BMP ####[address] [place] [address] Abs.Neutrophil (Seg) 4.25 k/uL Normal 1.50-8.10 [facility] Comment on above: Performed By: #### T ABA HERNADEZ, BMP ####[address] [place] [address] Basophils/100 WBC Auto (Bld) 1 % Normal 0-2 [facility] Comment on above: Performed By: #### T ABA HERNADEZ, BMP ####[address] [place] [address] Eosinophils Auto #/vol (Bld) 0.20 10*3/uL Normal 0.00-0.44 [facility] Comment on above: Performed By: #### T ABA HERNADEZ, BMP ####[address] [place] [address] Eosinophils/100 WBC Auto (Bld) 3 % Normal 1-4 [facility] Comment on above: Performed By: #### T ABA HERNADEZ, BMP ####[address] [place] [address] Erythrocyte distribution width Auto Ratio (RBC) 12.2 % Normal 11.8-14.4 [facility] Comment on above: Performed By: #### T ABA HERNADEZ, BMP ####[address] [place] [address] Hematocrit Auto Volume Fraction (Bld) 39.4 % Low 40.7-50.3 [facility] Comment on above: Performed By: #### T ABA HERNADEZ, BMP ####[address] [place] [address] Hemoglobin mass conc (Bld) 13.7 g/dL Normal 13.0-17.0 [facility] Comment on above: Performed By: #### T ABA HERNADEZ, BMP ####[address] , [place] [address] Immature granulocytes #/vol (Bld) 0 % Normal 0 [facility] Comment on above: Performed By: #### T ABA HERNADEZ, BMP ####[address] [place] [address] Lymphocytes Auto #/vol (Bld) 1.12 10*3/uL Normal 1.10-3.70 [facility] Comment on above: Performed By: #### T ABA HERNADEZ, BMP ####[address] , [place] [address] Lymphocytes/100 WBC Auto (Bld) 18 % Low 24-43 [facility] Comment on above: Performed By: #### T ABA HERNADEZ, BMP ####[address] [place] [address] MCH Auto Entitic mass (RBC) 33.6 pg High 25.2-33.5 [facility] Comment on above: Performed By: #### T ABA HERNADEZ, BMP ####[address] , [facility] MCHC Auto mass conc (RBC) 34.8 g/dL Normal 28.4-34.8 [facility] Comment on above: Performed By: #### T SH, CDP, BMP ####[address] , [facility] MCV Auto Entitic volume (RBC) 96.6 fL Normal 82.6-102.9 [facility] Comment on above: Performed By: #### T SH, CDP, BMP ####[address] , [place] [address] Monocytes Auto #/vol (Bld) 0.61 10*3/uL Normal 0.10-1.20 [facility] Comment on above: Performed By: #### T MARICARMEN, CDP, BMP ####[address] , [place] [address] Monocytes/100 WBC Auto (Bld) 10 % Normal 3-12 [facility] Comment on above: Performed By: #### T MARICARMEN, ABA, BMP ####[address] , [place] [address] Neutrophil (Seg) 68 % High 36-65 [facility] Comment on above: Performed By: #### T MARICARMEN, CDP, BMP ####[address] , [place] [address] NRBC Automated 0.0 per 100 WBC Normal 0.0 [facility] Comment on above: Performed By: #### T SH, CDP, BMP ####[address] [place] [address] Platelet mean volume Auto Entitic volume (Bld) 8.7 fL Normal 8.1-13.5 [facility] Comment on above: Performed By: #### T SH, CDP, BMP ####[address] [place] [address] Platelets Auto #/vol (Bld) 192 10*3/uL Normal 138-453 [facility] Comment on above: Performed By: #### T ABA HERNADEZ, BMP ####[address] [place] [address] RBC Auto #/vol (Bld) 4.08 10*6/uL Low 4.21-5.77 [facility] Comment on above: Performed By: #### ABA OLSON, BMP ####[address] [place] [address] WBC Auto #/vol (Bld) 6.2 10*3/uL Normal 3.5-11.3 [facility] Comment on above: Performed By: #### T ABA HERNADEZ, BMP ####[address] [place] [address] Auto Diff Performed NOT REPORTED Normal [facility] Comment on above: Performed By: #### ABA OLSON, BMP ####[address] [place] [address] Platelets Auto #/vol (Bld) NOT REPORTED Normal [facility] Comment on above: Performed By: #### T ABA HERNADEZ, BMP ####[address] [place] [address] RBC morphology finding Nom (Bld) NOT REPORTED Normal [facility] Comment on above: Performed By: #### T ABA HERNADEZ, BMP ####[address] [place] [address] WBC Morphology NOT REPORTED Normal [facility] Comment on above: Performed By: #### ABA OLSON, BMP ####[address] [place] [address] CT ABDOMEN PELVIS WO CONTRAS Ton 08-06-2018 [...] Minor bibasilar fibrosis unchanged.Interpreted by:FARRAH Arredondoigned by:Ketan Hatrley MD08/06/inal result Normal [facility] CT HEAD WO CONTRASTon 2017 CT HEAD [...] including chronicmicrovascular change.Interpreted by:FARRAH Robbinsigned by:Ayanna Abrams MD08/06/18inal result Normal [facility] Comp Metabolic Profon 2017 (cont.) Normal [facility] Comment on above: Result Comment: Aver age GFR for 70 or more years old: 75 mL/min/1.73sq mChronic Kidney Disease: <60 mL/min/1.73sq mKidney failure: <15 mL/min/1.73sq meGFR calculated using average adult body mass. Additional eGFR calculator available at:http://[email or web address]/multiple_crcl_2012.htm Performed By: #### T ABA HERNADEZ BMP ####[address] [place] [address] Albumin mass conc 4.0 g/dL Normal 3.5-5.2 [facility] Comment on above: Performed By: #### T ABA HERNADEZ BMP ####[address] [place] [address] Albumin/Globulin mass ratio 1.4 {ratio} Normal 1.0-2.5 [facility] Comment on above: Performed By: #### T ABA HERNADEZ BMP ####[address] [place] [address] Alkaline Phos 79 U/L Normal 40-129 [facility] Comment on above: Performed By: #### T ABA HERNADEZ BMP ####[address] [place] [address] ALT enzyme act/vol 11 U/L Normal 5-41 [facility] Comment on above: Performed By: #### T MARICARMEN CDP, BMP ####[address] [place] [address] Anion gap 3 molar conc 12 mmol/L Normal 9-17 [facility] Comment on above: Performed By: #### T MARICARMEN CDP, BMP ####[address] [place] [address] AST enzyme act/vol 15 U/L Normal <40 [facility] Comment on above: Performed By: #### T ABA HERNADEZ, BMP ####[address] [place] [address] Bilirubin Ql (U) 0.41 mg/dL Normal 0.3-1.2 [facility] Comment on above: Performed By: #### T ABA HERNADEZ, BMP ####[address] [place] [address] BUN/CRE Ratio 8 Low 9-20 [facility] Comment on above: Performed By: #### T ABA HERNADEZ, BMP ####[address] [place] [address] Calcium mass conc 9.1 mg/dL Normal 8.6-10.4 [facility] Comment on above: Performed By: #### T MARICARMEN CDP, BMP ####[address] [place] [address] Chloride molar conc 96 mmol/L Low 98-107 [facility] Comment on above: Performed By: #### T MARICARMEN CDP, BMP ####[address] [place] [address] CO2 molar conc 25 mmol/L Normal 20-31 [facility] Comment on above: Performed By: #### T ABA HERNADEZ, BMP ####[address] [place] [address] Creatinine mass conc 1.45 mg/dL High 0.70-1.20 [facility] Comment on above: Performed By: #### T SH, CDP, BMP ####[address] [place] [address] GFR, Amer 58 mL/min Low >60 [facility] Comment on above: Performed By: #### T SH, CDP, BMP ####[address] [place] [address] GFR,non Amer 48 mL/min Low >60 [facility] Comment on above: Performed By: #### T SH, CDP, BMP ####[address] [place] [address] Glucose mass conc 100 mg/dL High 70-99 [facility] Comment on above: Performed By: #### T SH, CDP, BMP ####[address] [place] [address] Potassium molar conc 3.7 mmol/L Normal 3.7-5.3 [facility] Comment on above: Performed By: #### T SH, CDP, BMP ####[address] [place] [address] Protein mass conc 6.8 g/dL Normal 6.4-8.3 [facility] Comment on above: Performed By: #### T SH, CDP, BMP ####[address] [place] [address] Sodium molar conc 133 mmol/L Low 135-144 [facility] Comment on above: Performed By: #### T SH, CDP, BMP ####[address] [place] [address] Staging: Normal [facility] Comment on above: Result Comment: Stag e 1: Some kidney damage normal GFRStage 2: Mild kidney damage GFR 60-89Stage 3: Moderate kidney damage GFR 30-59Stage 4: Severe kidney damage GFR 15-29Stage 5: Severe kidney damage GFR <15ESRD - chronic treatment by dialysis or transplant Performed By: #### T ABA HERNADEZ BMP ####[address] [place] [address] Urea nitrogen mass conc 11 mg/dL Normal 8-23 [facility] Comment on above: Performed By: #### T ABA HERNADEZ, BMP ####[address] [place] [address] ED Provider Noteon 8 HIM IP Note OR Emergency Response Technician Normal [facility] Lactic Acidon 08-06-2018 Lactate molar conc 0.8 mmol/L Normal 0.5-2.2 [facility] Comment on above: Performed By: #### ABA OLSON BMP ####[address] [place] [address] Lactic Acid,Whole Bl NOT REPORTED Normal 0.7-2.1 [facility] Comment on above: Performed By: #### ABA OLSON BMP ####[address] [place] [address] PTon 08-06-2018 INR Coag RelTime (PPP) 1.0 {INR} Normal 0.9-1.2 [facility] Comment on above: Performed By: #### ABA OLSON, BMP ####[address] [place] [address] Prothrombin time (PT) Coag time (PPP) 10.6 s Normal 9.7-12.2 [facility] Comment on above: Performed By: #### ABA OLSON BMP ####[address] , [place] [address] Thyroid Stim. Horm.on 2017 Thyrotropin Qn 0.37 m[IU]/L Normal 0.30-5.00 [facility] Comment on above: Performed By: #### T SH, CDP, BMP ####[address] [place] [address] Urinalysis, Routineon 2017 Acetaminophen mass conc Negative Normal NEG [facility] Comment on above: Performed By: #### T SH, CDP, BMP ####[address] [place] [address] Bilirubin, SemiQt,Ur Negative Normal NEG [facility] Comment on above: Performed By: #### T SH, CDP, BMP ####[address] [place] [address] Color YELLOW Normal [facility] Comment on above: Performed By: #### T SH, CDP, BMP ####[address] [place] [address] Glucose,Semi-qnt,Ur Negative Normal [facility] Comment on above: Performed By: #### T SH, CDP, BMP ####[address] [place] [address] Hemoglobin, Ur TRACE Abnormal NEG [facility] Comment on above: Performed By: #### T SH, CDP, BMP ####[address] [place] [address] Leuckocyte Esterase Negative Normal [facility] Comment on above: Performed By: #### T SH, CDP, BMP ####[address] [place] [address] Nitrite,Ur Negative Normal [facility] Comment on above: Performed By: #### T SH, CDP, BMP ####[address] [place] [address] PH,Ur 7.0 Normal 5.0-9.0 [facility] Comment on above: Performed By: #### T SH, CDP, BMP ####[address] [place] [address] Protein mass conc Negative Normal NEG [facility] Comment on above: Performed By: #### T ABA HERNADEZ, BMP ####[address] [place] [address] Spec. [place],Ur <1.005 Low 1.010-1.02 0 [facility] Comment on above: Performed By: #### T ABA HERNADEZ, BMP ####[address] [place] [address] Turbidity CLEAR Normal CLEAR [facility] Comment on above: Performed By: #### T ABA HERNADEZ, BMP ####[address] [place] [address] Urobilinogen,Ur Normal Normal NORM [facility] Comment on above: Performed By: #### T ABA HERNADEZ, BMP ####[address] [place] [address] Comment NOT REPORTED Normal [facility] Comment on above: Performed By: #### T ABA HERNADEZ, BMP ####[address] [place] [address] Urinalysis,Microon 8 ----- Normal [facility] Comment on above: Performed By: #### T ABA HERNADEZ, BMP ####[address] [place] [address] Epithelial cells 0 TO 2 Normal 0-5 [facility] Comment on above: Performed By: #### T ABA HERNADEZ, BMP ####[address] [place] [address] RBC Test strip #/vol (U) 0 TO 2 Normal 0-2 [facility] Comment on above: Performed By: #### T ABA HERNADEZ, BMP ####[address] [place] [address] Urine WBC's 0 TO 2 Normal 0-5 [facility] Comment on above: Performed By: #### T SH, CDP, BMP ####[address] [place] [address] Amorphous Sediment NOT REPORTED Normal NONE [facility] Comment on above: Performed By: #### T SH, CDP, BMP ####[address] [place] [address] Bacteria NOT REPORTED Normal NONE [facility] Comment on above: Performed By: #### T SH, CDP, BMP ####[address] [place] [address] Casts NOT REPORTED Normal [facility] Comment on above: Performed By: #### T SH, CDP, BMP ####[address] [place] [address] Crystals NOT REPORTED Normal NONE [facility] Comment on above: Performed By: #### T SH, CDP, BMP ####[address] [place] [address] Epithelial, Renal NOT REPORTED Normal 0 [facility] Comment on above: Performed By: #### T SH, CDP, BMP ####[address] [place] [address] Mucus Strands NOT REPORTED Normal NONE [facility] Comment on above: Performed By: #### T SH, CDP, BMP ####[address] [place] [address] Other Observations NOT REPORTED Normal NREQ [facility] Comment on above: Performed By: #### T SH, CDP, BMP ####[address] [place] [address] Trichomonas NOT REPORTED Normal NONE [facility] Comment on above: Performed By: #### T SH, CDP, BMP ####[address] [place] [address] Yeast NOT REPORTED Normal NONE [facility] Comment on above: Performed By: #### T ABA HERNADEZ, BMP ####[address] [place] [address] UA w/Reflex Cultureon 2017 Acetoacetic Acid,Ur Negative Normal NEG [facility] Comment on above: Performed By: #### T MARICARMEN CDP, BMP ####[address] [place] [address] Bilirubin, SemiQt,Ur Negative Normal NEG [facility] Comment on above: Performed By: #### T ABA HERNADEZ, BMP ####[address] [place] [address] Color YELLOW Normal YEL [facility] Comment on above: Performed By: #### T ABA HERNADEZ, BMP ####[address] [place] [address] Glucose,Semi-qnt,Ur Negative Normal [facility] Comment on above: Performed By: #### T ABA HERNADEZ, BMP ####[address] [place] [address] Hemoglobin, Ur Negative Normal [facility] Comment on above: Performed By: #### T ABA HERNADEZ, BMP ####[address] [place] [address] Leuckocyte Esterase Negative Normal NEG [facility] Comment on above: Performed By: #### T MARICARMEN CDP, BMP ####[address] [place] [address] Nitrite,Ur Negative Normal [facility] Comment on above: Performed By: #### T MARICARMEN CDP, BMP ####[address] [place] [address] PH,Ur 7.0 Normal 5.0-9.0 [facility] Comment on above: Performed By: #### T SH, CDP, BMP ####[address] [place] [address] Protein, Semi-qnt,Ur Negative Normal NEG [facility] Comment on above: Performed By: #### T SH, CDP, BMP ####[address] [place] [address] Spec. [place],Ur <1.005 Low 1.010-1.02 0 [facility] Comment on above: Performed By: #### T SH, CDP, BMP ####[address] [place] [address] Turbidity CLEAR Normal CLEAR [facility] Comment on above: Performed By: #### T SH, CDP, BMP ####[address] [place] [address] Urobilinogen,Ur Normal Normal NORM [facility] Comment on above: Performed By: #### T SH, CDP, BMP ####[address] [place] [address] Comment NOT REPORTED Normal [facility] Comment on above: Performed By: #### T SH, CDP, BMP ####[address] [place] [address] Urinalysis,Microon 8 ----- Normal [facility] Comment on above: Performed By: #### T SH, CDP, BMP ####[address] [place] [address] Epithelial cells 0 TO 2 Normal 0-5 [facility] Comment on above: Performed By: #### T SH, CDP, BMP ####[address] [place] [address] RBC Test strip #/vol (U) 0 TO 2 Normal 0-2 [facility] Comment on above: Performed By: #### T MARICARMEN CDP, BMP ####[address] [place] [address] Urine WBC's 0 TO 2 Normal 0-5 [facility] Comment on above: Performed By: #### T MARICARMEN, CDP, BMP ####[address] [place] [address] Amorphous Sediment NOT REPORTED Normal NONE [facility] Comment on above: Performed By: #### T MARICARMEN, CDP, BMP ####[address] [place] [address] Bacteria NOT REPORTED Normal NONE [facility] Comment on above: Performed By: #### T MARICARMEN CDP, BMP ####[address] [place] [address] Casts NOT REPORTED Normal [facility] Comment on above: Performed By: #### T MARICARMEN CDP, BMP ####[address] [place] [address] Crystals NOT REPORTED Normal NONE [facility] Comment on above: Performed By: #### T MARICARMEN CDP, BMP ####[address] [place] [address] Epithelial, Renal NOT REPORTED Normal 0 [facility] Comment on above: Performed By: #### T MARICARMEN CDP, BMP ####[address] [place] [address] Mucus Strands NOT REPORTED Normal NONE [facility] Comment on above: Performed By: #### T MARICARMEN CDP, BMP ####[address] [place] [address] Other Observations NOT REPORTED [facility] Comment on above: Performed By: #### T MARICARMEN, CDP, BMP ####[address] [place] [address] Trichomonas NOT REPORTED Normal NONE [facility] Comment on above: Performed By: #### T ABA HERNADEZ, BMP ####[address] [place] [address] Yeast NOT REPORTED Normal NONE [facility] Comment on above: Performed By: #### T ABA HERNADEZ, BMP ####[address] [place] [address] CBC with Diffon 06-15-2018 Abs. Basophil <0.03 Normal 0.00-0.20 [facility] Comment on above: Performed By: #### T ABA HERNADEZ, BMP ####[address] [place] [address] Abs.Imm.Granulocyte 0.03 k/uL Normal 0.00-0.30 [facility] Comment on above: Performed By: #### T ABA HERNADEZ, BMP ####[address] [place] [address] Abs.Neutrophil (Seg) 3.87 k/uL Normal 1.50-8.10 [facility] Comment on above: Performed By: #### T ABA HERNADEZ, BMP ####[address] [place] [address] Basophils/100 WBC Auto (Bld) 0 % Normal 0-2 [facility] Comment on above: Performed By: #### T ABA HERNADEZ, BMP ####[address] [place] [address] Eosinophils Auto #/vol (Bld) 0.34 10*3/uL Normal 0.00-0.44 [facility] Comment on above: Performed By: #### T ABA HERNADEZ, BMP ####[address] [place] [address] Eosinophils/100 WBC Auto (Bld) 6 % High 1-4 [facility] Comment on above: Performed By: #### T ABA HERNADEZ, BMP ####[address] , [facility] Erythrocyte distribution width Auto Ratio (RBC) 12.9 % Normal 11.8-14.4 [facility] Comment on above: Performed By: #### T MARICARMEN CDP, BMP ####[address] , [place] [address] Hematocrit Auto Volume Fraction (Bld) 40.4 % Low 40.7-50.3 [facility] Comment on above: Performed By: #### T ABA HERNADEZ, BMP ####[address] [place] [id number] Hemoglobin mass conc (Bld) 14.0 g/dL Normal 13.0-17.0 [facility] Comment on above: Performed By: #### T ABA HERNADEZ, BMP ####[address] , [place] [address] Immature granulocytes #/vol (Bld) 1 % High 0 [facility] Comment on above: Performed By: #### T AAB HERNADEZ, BMP ####[address] , [place] [address] Lymphocytes Auto #/vol (Bld) 1.24 10*3/uL Normal 1.10-3.70 [facility] Comment on above: Performed By: #### T ABA HERNADEZ, BMP ####[address] , [facility] Lymphocytes/100 WBC Auto (Bld) 21 % Low 24-43 [facility] Comment on above: Performed By: #### T ABA HERNADEZ, BMP ####[address] [place] [id number] MCH Auto Entitic mass (RBC) 33.7 pg High 25.2-33.5 [facility] Comment on above: Performed By: #### T ABA HERNADEZ, BMP ####[address] [place] [address] MCHC Auto mass conc (RBC) 34.7 g/dL Normal 28.4-34.8 [facility] Comment on above: Performed By: #### T MARICARMEN CDP, BMP ####[address] , [facility] MCV Auto Entitic volume (RBC) 97.1 fL Normal 82.6-102.9 [facility] Comment on above: Performed By: #### T MARICARMEN, CDP, BMP ####[address] [place] [address] Monocytes Auto #/vol (Bld) 0.46 10*3/uL Normal 0.10-1.20 [facility] Comment on above: Performed By: #### T MARICARMEN, CDP, BMP ####[address] , [facility] Monocytes/100 WBC Auto (Bld) 8 % Normal 3-12 [facility] Comment on above: Performed By: #### T MARICARMEN, ABA, BMP ####[address] [place] [address] Neutrophil (Seg) 64 % Normal 36-65 [facility] Comment on above: Performed By: #### T MARICARMEN, CDP, BMP ####[address] [place] [address] NRBC Automated 0.0 per 100 WBC Normal 0.0 [facility] Comment on above: Performed By: #### T SH, CDP, BMP ####[address] [place] [address] Platelet mean volume Auto Entitic volume (Bld) 9.0 fL Normal 8.1-13.5 [facility] Comment on above: Performed By: #### T MARICARMEN, CDP, BMP ####[address] [place] [address] Platelets Auto #/vol (Bld) 157 10*3/uL Normal 138-453 [facility] Comment on above: Performed By: #### T ABA HERNADEZ, BMP ####[address] [place] [address] RBC Auto #/vol (Bld) 4.16 10*6/uL Low 4.21-5.77 [facility] Comment on above: Performed By: #### T ABA HERNADEZ, BMP ####[address] [place] [address] WBC Auto #/vol (Bld) 6.0 10*3/uL Normal 3.5-11.3 [facility] Comment on above: Performed By: #### T ABA HERNADEZ, BMP ####[address] [place] [address] Auto Diff Performed NOT REPORTED Normal [facility] Comment on above: Performed By: #### T ABA HERNADEZ, BMP ####[address] [place] [address] Platelets Auto #/vol (Bld) NOT REPORTED Normal [facility] Comment on above: Performed By: #### T ABA HERNADEZ, BMP ####[address] [place] [address] RBC morphology finding Nom (Bld) NOT REPORTED Normal [facility] Comment on above: Performed By: #### T ABA HERNADEZ, BMP ####[address] [place] [address] WBC Morphology NOT REPORTED Normal [facility] Comment on above: Performed By: #### T ABA HERNADEZ, BMP ####[address] [place] [address] Comp Metabol,Fastingon 06-15 (cont.) Normal [facility] Comment on above: Result Comment: Aver age GFR for 70 or more years old: 75 mL/min/1.73sq mChronic Kidney Disease: <60 mL/min/1.73sq mKidney failure: <15 mL/min/1.73sq meGFR calculated using average adult body mass. Additional eGFR calculator available at:http://www.[employer]/multiple_crcl_2012.htm Performed By: #### T ABA HERNADEZ, BMP ####[address] [place] [address] Albumin mass conc 4.0 g/dL Normal 3.5-5.2 [facility] Comment on above: Performed By: #### T ABA HERNADEZ, BMP ####[address] [place] [address] Albumin/Globulin mass ratio 1.5 {ratio} Normal 1.0-2.5 [facility] Comment on above: Performed By: #### T ABA HERNADEZ, BMP ####[address] [place] [address] Alkaline Phos 74 U/L Normal 40-129 [facility] Comment on above: Performed By: #### T ABA HERNADEZ, BMP ####[address] [place] [address] ALT enzyme act/vol 10 U/L Normal 5-41 [facility] Comment on above: Performed By: #### T ABA HERNADEZ, BMP ####[address] [place] [address] Anion gap 3 molar conc 11 mmol/L Normal 9-17 [facility] Comment on above: Performed By: #### T ABA HERNADEZ, BMP ####[address] [place] [address] AST enzyme act/vol 15 U/L Normal <40 [facility] Comment on above: Performed By: #### T MARICARMEN, CDP, BMP ####[address] [place] [address] Bilirubin Ql (U) 0.50 mg/dL Normal 0.3-1.2 [facility] Comment on above: Performed By: #### T SH, CDP, BMP ####[address] [place] [address] BUN/CRE Ratio 9 Normal 9-20 [facility] Comment on above: Performed By: #### T SH, CDP, BMP ####[address] [place] [address] Calcium mass conc 9.6 mg/dL Normal 8.6-10.4 [facility] Comment on above: Performed By: #### T SH, CDP, BMP ####[address] [place] [address] Chloride molar conc 102 mmol/L Normal 98-107 [facility] Comment on above: Performed By: #### T SH, CDP, BMP ####[address] [place] [address] CO2 molar conc 28 mmol/L Normal 20-31 [facility] Comment on above: Performed By: #### T SH, CDP, BMP ####[address] [place] [address] Creatinine mass conc 1.71 mg/dL High 0.70-1.20 [facility] Comment on above: Performed By: #### T SH, CDP, BMP ####[address] [place] [address] GFR, Amer 48 mL/min Low >60 [facility] Comment on above: Performed By: #### T SH, CDP, BMP ####[address] [place] [address] GFR,non Amer 40 mL/min Low >60 [facility] Comment on above: Performed By: #### T SH, CDP, BMP ####[address] [place] [address] Glucose mass conc 95 mg/dL Normal 70-99 [facility] Comment on above: Performed By: #### T SH, CDP, BMP ####[address] [place] [address] Potassium molar conc 4.3 mmol/L Normal 3.7-5.3 [facility] Comment on above: Performed By: #### T SH, CDP, BMP ####[address] [place] [address] Protein mass conc 6.7 g/dL Normal 6.4-8.3 [facility] Comment on above: Performed By: #### T MARICARMEN, CDP, BMP ####[address] [place] [address] Sodium molar conc 141 mmol/L Normal 135-144 [facility] Comment on above: Performed By: #### T MARICARMEN, CDP, BMP ####[address] [place] [address] Staging: Normal [facility] Comment on above: Result Comment: Stag e 1: Some kidney damage normal GFRStage 2: Mild kidney damage GFR 60-89Stage 3: Moderate kidney damage GFR 30-59Stage 4: Severe kidney damage GFR 15-29Stage 5: Severe kidney damage GFR <15ESRD - chronic treatment by dialysis or transplant Performed By: #### T SH, CDP, BMP ####[address] [place] [address] Urea nitrogen mass conc 15 mg/dL Normal 8-23 [facility] Comment on above: Performed By: #### T SH, CDP, BMP ####[address] [place] [address] Lipid Prof, Fastingon 2017 Cholesterol in HDL mass conc 53 mg/dL Normal >40 [facility] Comment on above: Result Comment: HDL Guidelines: <40 Undesirable 40-59 Borderline >59 Desirable Performed By: #### T SH, CDP, BMP ####[address] [place] [address] Cholesterol in LDL mass conc 55 mg/dL Normal 0-130 [facility] Comment on above: Result Comment: LDL Guidelines: <100 Desirable 100-129 Near to/above Desirable 130-159 Borderline >159 UndesirableDirect (measured) LDL and calculated LDL are not interchangeable tests. Performed By: #### T ABA HERNADEZ, BMP ####[address] [place] [address] Cholesterol mass conc 137 mg/dL Normal <200 [facility] Comment on above: Result Comment: Chol esterol Guidelines: <200 Desirable 200-240 Borderline >240 Undesirable Performed By: #### T ABA HERNADEZ, BMP ####[address] [place] [address] Cholesterol.total/Chol esterol in HDL mass ratio 2.6 {ratio} Normal <5 [facility] Comment on above: Performed By: #### T ABA HERNADEZ, BMP ####[address] [facility] Triglyceride,Fasting 147 mg/dL Normal <150 [facility] Comment on above: Result Comment: Trig lyceride Guidelines: <150 Desirable 150- 199 Borderline 200-499 High >499 Very high Based on AHA Guidelines for fasting triglyceride, July 2012. Performed By: #### T ABA HERNADEZ, BMP ####[address] [place] [address] Cholesterol in VLDL mass conc NOT REPORTED Normal 11-25 [facility] Comment on above: Performed By: #### T ABA HERNADEZ, BMP ####[address] [place] [address] Thyroid Stim. Horm.on 2017 Thyrotropin Qn 0.43 m[IU]/L Normal 0.30-5.00 [facility] Comment on above: Performed By: #### T ABA HERNADEZ, BMP ####[address] [place] [address] Thyroxine, Freeon 06-15-2018 Thyroxine, Free 1.37 ng/dL Normal 0.93-1.70 [facility] Comment on above: Performed By: #### T SH, CDP, BMP ####[address] [place] [address] Group A Strep DNAon 05-05-20 18 Group A Strep DNA Specimen Description .THROAT SWABSpecial Requests NOT REPORTEDDirect Exam Negative: Specimen negative for Streptococcus pyogenes by DNA amplification.Report Status FINAL 05/05/2018 [facility] Comment on above: Performed By: #### G ASDNA ####[address] [place], [place] [phone] [place] [address] Strep Gr A Direct Agon 05-04 S. pyogenes Ag IA Ql (Unsp spec) Specimen Description .THROATSpecial Requests NOT REPORTEDDirect Exam Rapid Strep A negative. A negative Rapid Group A Strep Screen result does not rule out the possibility of Group A Streptococci in the specimen. A Group A strep DNA test will be performed. Report Status FINAL 05/04/2018 [facility] Comment on above: Performed By: #### S GPA ####[address] [place] [address] XR CHEST (2 VW)on 05-04-2018 [...] CONGESTION.Interpreted by:FARRAH Shresthaigned by:Bijan Miranda MD05/04/18inal result [facility] H. pylori Antigenon 03-31-20 18 H. pylori Antigen Specimen Description .FECES Performed at [address] [place] [address] [phone] Special Requests NOT REPORTEDDirect Exam NEGATIVE Performed at [facility] [address] [place], [place] [id number] [phone] Report Status FINAL 03/31/2018 Normal [facility] Comment on above: Performed By: #### F HPY ####[facility] [place] [phone] [place] [address] CT ABDOMEN PELVIS W IV [...] 03/13/2018 9:14 AMInterpreted by:FARRAH Zelayaigned by:Jessa Garcia MD03/13/18inal result Normal [facility] Basic Metabolic Profon 03-12 (cont.) Normal [facility] Comment on above: Result Comment: Aver age GFR for 70 or more years old: 75 mL/min/1.73sq mChronic Kidney Disease: <60 mL/min/1.73sq mKidney failure: <15 mL/min/1.73sq meGFR calculated using average adult body mass. Additional eGFR calculator available at:http://www.[employer].PostPath/multiple_crcl_2011.htm Performed By: #### B MP ####[address] [place] [address] Anion gap 3 molar conc 12 mmol/L Normal 9-17 [facility] Comment on above: Performed By: #### B MP ####[address] [place] [address] BUN/CRE Ratio 13 Normal 9-20 [facility] Comment on above: Performed By: #### B MP ####[address] [place] [address] Calcium mass conc 9.2 mg/dL Normal 8.6-10.4 [facility] Comment on above: Performed By: #### B MP ####[address] [place] [address] Chloride molar conc 98 mmol/L Normal 98-107 [facility] Comment on above: Performed By: #### B MP ####[address] [place] [address] CO2 molar conc 27 mmol/L Normal 20-31 [facility] Comment on above: Performed By: #### B MP ####[address] [place] [address] Creatinine mass conc 1.44 mg/dL High 0.70-1.20 [facility] Comment on above: Performed By: #### B MP ####[address] [place] [address] GFR, Amer 59 mL/min Low >60 [facility] Comment on above: Performed By: #### B MP ####[address] [place] [address] GFR,non Amer 48 mL/min Low >60 [facility] Comment on above: Performed By: #### B MP ####[address] , [place] [phone] Glucose mass conc 98 mg/dL Normal 70-99 [facility] Comment on above: Performed By: #### B MP ####[address] [phone] Potassium molar conc 4.4 mmol/L Normal 3.7-5.3 [facility] Comment on above: Performed By: #### B MP ####[address] [phone] Sodium molar conc 137 mmol/L Normal 135-144 [facility] Comment on above: Performed By: #### B MP ####[address] [address] Staging: Normal [facility] Comment on above: Result Comment: Stag e 1: Some kidney damage normal GFRStage 2: Mild kidney damage GFR 60-89Stage 3: Moderate kidney damage GFR 30-59Stage 4: Severe kidney damage GFR 15-29Stage 5: Severe kidney damage GFR <15ESRD - chronic treatment by dialysis or transplantPerformed at [address] [place], [place] [id number] [phone] Performed By: #### B MP ####[address] , [place] [phone] Urea nitrogen mass conc 18 mg/dL Normal 8-23 [facility] Comment on above: Performed By: #### B MP ####[address] , [place] [id number] Basic Metabolic Profon 10-14 (cont.) Normal [facility] Comment on above: Result Comment: Aver age GFR for 70 or more years old: 75 mL/min/1.73sq mChronic Kidney Disease: <60 mL/min/1.73sq mKidney failure: <15 mL/min/1.73sq meGFR calculated using average adult body mass. Additional eGFR calculator available at:http://www.[employer].PostPath/multiple_crcl_2012.htm Performed By: #### T ABA HERNADEZ, BMP ####[address] [place] [address] Anion gap 3 molar conc 13 mmol/L Normal 9-17 [facility] Comment on above: Performed By: #### T ABA HERNADEZ, BMP ####[address] [place] [address] BUN/CRE Ratio 16 Normal 9-20 [facility] Comment on above: Performed By: #### T ABA HERNADEZ, BMP ####[address] [place] [address] Calcium mass conc 9.2 mg/dL Normal 8.6-10.4 [facility] Comment on above: Performed By: #### T ABA HERNADEZ, BMP ####[address] [place] [address] Chloride molar conc 94 mmol/L Low 98-107 [facility] Comment on above: Performed By: #### T ABA HERNADEZ, BMP ####[address] [place] [address] CO2 molar conc 26 mmol/L Normal 20-31 [facility] Comment on above: Performed By: #### T ABA HERNADEZ, BMP ####[address] [place] [address] Creatinine mass conc 1.60 mg/dL High 0.70-1.20 [facility] Comment on above: Performed By: #### T ABA HERNADEZ, BMP ####[address] [place] [address] GFR, Amer 52 mL/min Low >60 [facility] Comment on above: Performed By: #### T ABA HERNADEZ, BMP ####[address] [place] [address] GFR,non Amer 43 mL/min Low >60 [facility] Comment on above: Performed By: #### T ABA HERNADEZ, BMP ####[address] [place] [address] Glucose mass conc 108 mg/dL High 70-99 [facility] Comment on above: Performed By: #### T ABA HERNADEZ, BMP ####[address] [place] [address] Potassium molar conc 3.9 mmol/L Normal 3.7-5.3 [facility] Comment on above: Performed By: #### T ABA HERNADEZ, BMP ####[address] [place] [address] Sodium molar conc 133 mmol/L Low 135-144 [facility] Comment on above: Performed By: #### T ABA HERNADEZ, BMP ####[address] [place] [address] Staging: Normal [facility] Comment on above: Result Comment: Stag e 1: Some kidney damage normal GFRStage 2: Mild kidney damage GFR 60-89Stage 3: Moderate kidney damage GFR 30-59Stage 4: Severe kidney damage GFR 15-29Stage 5: Severe kidney damage GFR <15ESRD - chronic treatment by dialysis or transplantPerformed at [address] [place] [address] Performed By: #### T ABA HERNADEZ, BMP ####[address] [place] [address] Urea nitrogen mass conc 25 mg/dL High 8-23 [facility] Comment on above: Performed By: #### T ABA HERNADEZ, BMP ####[address] [place] [address] CBC with Diffon 10-14-2017 Abs. Basophil 0.00 k/uL Normal 0.0-0.2 [facility] Comment on above: Performed By: #### T ABA HERNADEZ, BMP ####[address] [place] [address] Abs.Neutrophil (Seg) 8.99 k/uL High 1.8-7.7 [facility] Comment on above: Performed By: #### T ABA HERNADEZ, BMP ####[address] , [facility] Basophils/100 WBC Auto (Bld) 0 % Normal 0-2 [facility] Comment on above: Performed By: #### T ABA HERNADEZ, BMP ####[address] [place] [address] Eosinophils Auto #/vol (Bld) 0.21 10*3/uL Normal 0.0-0.4 [facility] Comment on above: Performed By: #### T ABA HERNADEZ, BMP ####[address] [place] [address] Eosinophils/100 WBC Auto (Bld) 2 % Normal 0-8 [facility] Comment on above: Performed By: #### T ABA HERNADEZ, BMP ####[address] [place] [id number] Lymphocytes Auto #/vol (Bld) 1.18 10*3/uL Normal 1.0-4.8 [facility] Comment on above: Performed By: #### T ABA HERNADEZ, BMP ####[address] , [facility]83 Lymphocytes/100 WBC Auto (Bld) 11 % Low 24-44 [facility] Comment on above: Performed By: #### T ABA HERNADEZ, BMP ####[address] [place] [id number] Monocytes Auto #/vol (Bld) 0.32 10*3/uL Normal 0.0-1.0 [facility] Comment on above: Performed By: #### T ABA HERNADEZ, BMP ####[address] [place] [address] Monocytes/100 WBC Auto (Bld) 3 % Normal 0-12 [facility] Comment on above: Performed By: #### T ABA HERNADEZ, BMP ####[address] [place] [address] Morphology Interp Azar (Bld) Normal Normal [facility] Comment on above: Result Comment: Perf ormed at [address] [place] [address] Performed By: #### T ABA HERNADEZ, BMP ####[address] [place] [address] Neutrophil (Seg) 84 % High 36-66 [facility] Comment on above: Performed By: #### T ABA HERNADEZ, BMP ####[address] [place] [address] Erythrocyte distribution width Auto Ratio (RBC) 14.0 % Normal 12.1-15.2 [facility] Comment on above: Performed By: #### T ABA HERNADEZ, BMP ####[address] [place] [address] Hematocrit Auto Volume Fraction (Bld) 44.7 % Normal 41-53 [facility] Comment on above: Performed By: #### T ABA HERNADEZ, BMP ####[address] [place] [address] Hemoglobin mass conc (Bld) 14.6 g/dL Normal 13.5-17.0 [facility] Comment on above: Performed By: #### T ABA HERNADEZ, BMP ####[address] [place] [address] MCH Auto Entitic mass (RBC) 32.2 pg Normal 26-34 [facility] Comment on above: Performed By: #### T ABA HERNADEZ, BMP ####[address] [place] [address] MCHC Auto mass conc (RBC) 32.6 g/dL Normal 31-37 [facility] Comment on above: Performed By: #### T ABA HERNADEZ, BMP ####[address] [place] [address] MCV Auto Entitic volume (RBC) 98.7 fL Normal 80-100 [facility] Comment on above: Performed By: #### T ABA HERNADEZ, BMP ####[address] [place] [address] Platelet mean volume Auto Entitic volume (Bld) 7.3 fL Normal 6.0-12.0 [facility] Comment on above: Performed By: #### T ABA HERNADEZ, BMP ####[address] [place] [address] Platelets Auto #/vol (Bld) 216 10*3/uL Normal 140-450 [facility] Comment on above: Performed By: #### T ABA HERNADEZ, BMP ####[address] [place] [address] RBC Auto #/vol (Bld) 4.53 10*6/uL Normal 4.5-5.9 [facility] Comment on above: Performed By: #### T ABA HERNADEZ, BMP ####[address] [place] [address] WBC Auto #/vol (Bld) 10.7 10*3/uL Normal 3.5-11.0 [facility] Comment on above: Performed By: #### T ABA HERNADEZ, BMP ####[address] [place] [address] Abs.Imm.Granulocyte NOT REPORTED Normal 0.00-0.30 [facility] Comment on above: Performed By: #### T ABA HERNADEZ, BMP ####[address] [place] [address] Auto Diff Performed NOT REPORTED Normal [facility] Comment on above: Performed By: #### T ABA HERNADEZ, BMP ####[address] [place] [address] Immature granulocytes #/vol (Bld) NOT REPORTED Normal 0 [facility] Comment on above: Performed By: #### T ABA HERNADEZ, BMP ####[address] [place] [address] Platelets Auto #/vol (Bld) NOT REPORTED Normal [facility] Comment on above: Performed By: #### T ABA HERNADEZ, BMP ####[address] [place] [address] RBC morphology finding Nom (Bld) NOT REPORTED Normal [facility] Comment on above: Performed By: #### T ABA HERNADEZ, BMP ####[address] [place] [address] WBC Morphology NOT REPORTED Normal [facility] Comment on above: Performed By: #### T ABA HERNADEZ, BMP ####[address] [place] [address] Thyroid Stim. Horm.on 2016 Thyrotropin Qn 0.23 m[IU]/L Low 0.30-5.00 [facility] Comment on above: Result Comment: Perf ormed at [address] [place] [address] Performed By: #### T ABA HERNADEZ, BMP ####[address] [place] [address] PSA, [employer] 10-01-2017 Prostatic Spec. Ag 0.42 ug/L Normal <4.1 [facility] Comment on above: Result Comment: The Deonte ECLIA assay is used. Results obtained with different assay methods cannot be used interchangeably.Performed at [address] [place] [address] [phone] Performed By: #### P SAD ####[address] [place] [address] Vital Signs Date Time Vital Sign Value Performing Clinician Facility 10-18-2023 12:16-0500 Heart rate 84 /min [facility] 10-18-2023 11:43-0500 Body height 185.42 cm [facility] 10-18-2023 11:43-0500 Body temperature 98.3 [degF] [facility] 10-18-2023 11:43-0500 Body weight 90.9 kg [facility] 10-18-2023 11:43-0500 Diastolic blood pressure 66 mm[Hg] [facility] 10-18-2023 11:43-0500 Respiratory rate 21 /min [facility] 10-18-2023 11:43-0500 SaO2% (BldA) [Mass fraction] 97 % [facility] 10-18-2023 11:43-0500 Systolic blood pressure 142 mm[Hg] [facility] 10-18-2023 10:20-0500 Body height 185.42 cm Brittany Amador Other [facility] [employer] Other 10-18-2023 10:20-0500 Body mass index (BMI) [Ratio] 26.36 kg/m2 Brittany Amador Other [facility] [employer] Other 10-18-2023 10:20-0500 Body temperature 98.9 [degF] Brittany Amador Other [facility] Other 10-18-2023 10:20-0500 Body weight 90.63 kg Brittany Amador Other [facility] Other 10-18-2023 10:20-0500 Respiratory rate 18 /min Brittany Amador Other [facility] Other 10-18-2023 10:20-0500 SaO2% (BldA) [Mass fraction] 99 % Brittany Adenmond Other [facility] Other Encounters Encounter Date Encounter Type Care Provider Facility Start: 02-26-2024 End: 02-26-2024 ambulatory DEBRA MUNGUIA Not Available Start: 11-20-2023 End: 11-20-2023 ambulatory DEBRA MUNGUIA Not Available Start: 10-18-2023 End: 10-18-2023 ambulatory Brittany Adenmond Other [facility] Other Start: 10-18-2023 Patient encounter procedure Brittany Adenmond [facility] Start: 10-18-2023 End: 10-18-2023 Emergency department patient visit Michael Amador Facility:[facility] Start: 10-18-2023 End: 10-18-2023 Emergency department patient visit [facility] Work Phone: Start: 03-10-[address] THEE MCGUIRE [facility] ity:H1 Start: 10-30-2022 End: 10-30-[address] THEE MCGUIRE Facility:[facility]1 Start: 09-10-2022 End: 09-10-[address] THEE MCGUIRE Facility:[facility] Start: 05-13-2022 End: 05-14-[address] THEE MCGUIRE Facility:[facility] Start: 02-03-2022 End: 02-07-2022 Evaluation and management of inpatient PHYSICIAN UNKNOWN Facility:[facility] Start: 08-17-2018 End: 08-31-2018 [facility] Start: 08-16-2018 End: 08-16-2018 Emergency department patient visit [facility] Start: 08-06-2018 End: 08-06-2018 Emergency department patient visit [facility] Start: 08-03-2018 End: 08-04-2018 Patient encounter ISIDRO [facility] Start: 06-15-2018 End: 06-16-2018 Patient encounter ISIDRO WHITE [facility] Start: 05-04-2018 End: 05-04-2018 [facility] Start: 03-30-2018 End: 03-31-2018 Patient encounter RUBEN RIOS [facility] Start: 03-27-2018 End: 03-28-2018 Patient encounter RUBEN RIOS [facility] Start: 03-12-2018 End: 03-15-2018 Patient encounter RUBEN RIOS [facility] Start: 10-14-2017 End: 10-15-2017 [facility] Start: 10-01-2017 End: 10-02-2017 Patient encounter CLARITZA YARBROUGH [facility] Procedures Date Procedure Procedure Detail Performing Clinician Start: 10-18-2023 CT of paranasal sinu s without contrast Start: 02-04-2022 Antibody screen PHYSICI AN UNKNOWN Comment on above: Performed By: #### 3 0318 #### [address] Start: 08-31-2018 DISCHARGE PATIENT PJ PUGA Start: 08-19-2018 Microscopic urinalysis PJ PUGA Start: 08-19-2018 URINE RT REFLEX TO CULTURE PJ PARRJUA Start: 08-17-2018 DIETARY NUTRITION SUPPLEMENTS PJ PARRJUA Start: 08-17-2018 PATIENT STATUS (FROM ED OR OR/PROCEDURAL) PJ PARRJUA Start: 08-17-2018 IP CONSULT TO FIELD IRONWORKER AL MEDICINE PJ PARRJUA Start: 08-17-2018 DIET GENERAL ANOOPTIMMY MUSTAFA Start: 08-17-2018 IP CONSULT TO DIETITIAN ANOOPTMIMY PUGA Start: 08-17-2018 IP CONSULT TO HISTOR Y AND PHYSICAL ANOOPTIMMY PUGA Start: 08-17-2018 MISCELLANEOUS NURSIN G CARE ORDER (SPECIFY) PJ PARRJUA Start: 08-17-2018 OT EVAL AND TREAT PJ PARRJUA Start: 08-17-2018 PT EVAL AND TREAT PJ PARRJUA Start: 08-17-2018 FULL CODE AHTIMMY MUSTAFA Start: 08-17-2018 MONITOR PJ MUSTAFA Start: 08-16-2018 URINE DRUG SCREEN PATRI CK YARBROUGH Start: 08-16-2018 Urnls dip stick/tabl et reagent auto microscopy CLARITZA YARBROUGH Start: 08-16-2018 EKG 12-LEAD CLARITZA TODD TERS Start: 08-16-2018 ACETAMINOPHEN LEVEL PAT SHAWANDA YARBROUGH Start: 08-16-2018 Assay of free thyroxine [...] CLARITZA YARBROUGH Start: 06-15-2018 Comprehensive metabolic panel CLARITZASHAWANDA YARBROUGH Start: 06-15-2018 Lipid panel CLARITZA GIVENS Start: 05-04-2018 Radiologic exam chest 2 views CLARITZASHAWANDA YARBROUGH Start: 05-04-2018 STREP A DNA PROBE, AMPLIFICATION CLARITZA YARBROUGH Start: 05-04-2018 STREP SCREEN GROUP A THROAT CLARITZASHAWANDA YARBROUGH Start: 03-30-2018 H. PYLORI ANTIGEN PATRI CK YARBROUGH Start: 03-12-2018 Ct abdomen & pelvis w/contrast material CLARITZASHAWANDA YARBROUGH Start: 03-12-2018 Basic metabolic pane l calcium total CLARITZA YARBROUGH Start: 10-14-2017 Basic metabolic 2000 panel - Serum or Plasma CLARITZASHAWANDA YARBROUGH Start: 10-14-2017 CBC WITH AUTO DIFFERENTIAL CLARITZASHAWANDA YARBROUGH Start: 10-14-2017 TSH WITHOUT REFLEX PATR ICK YARBROUGH Start: 10-01-2017 PSA, DIAGNOSTIC CLARITZASHAWANDA YARBROUGH Plan of Treatment Date Care Activity Detail Author Start: 10-18-2023 Bacteria identified in Blood by Culture [facility] Start: 10-18-2023 Superficial Wound Culture Superficial Wound Culture [facility] Bacteria identified in Unspecified specimen by Aerobe culture [facility] Patient Education Cellulitis (Sk in Infection), Adult (DC) [facility] Work Phone: Patient referral [facility] Work Phone: Payers Date Payer Category Payer Self-pay 2023 Unknown [id number] 2015 Medicare [id number] 1958 Medicare [id number] 1959 Private Health Insurance [id number] 1945 Unknown [id number] 2..840.1.295315.3.579.2.173 1946 Unknown [id number] 2.0.1.037981.3.579.2.173 1946 Unknown [id number] 2..840.1.156948.3.579.2.173 1946 Unknown [id number] 2.16.840.1.811191.3.579.2.173 1946 Unknown [id number] 2.16.840.1.307600.3.579.2.173 1946 Unknown [id number] 2.16.840.1.545079.3.579.2.173 1946 Unknown [id number] 2.16.840.1.167429.3.579.2.173 1946 Unknown [id number] 2.16.840.1.010851.3.579.2.173 1946 Unknown [id number] 2.16.840.1.876401.3.579.2.173 1946 Unknown [id number] 2.16.840.1.179246.3.579.2.173 1946 Unknown [id number] 2.16.840.1.589146.3.579.2.173 1946 Unknown [id number] 2.16.840.1.324397.3.579.2.176 1946 Unknown [id number] 2.16.840.1.869165.3.579.2.647 1946 Unknown [id number] 2.16.840.1.486467.3.579.2.593 1946 Unknown [id number] 2.16.840.1.556102.3.579.2.593 1946 Unknown [id number] 2.16.840.1.146160.3.579.2.593 1946 Unknown [id number] 2.16.840.1.786923.3.579.2.593 1946 Unknown [id number] 2.16.840.1.098534.3.579.2.125 9 1946 Unknown [id number] 2.16.840.1.397607.3.579.2.125 9 Unknown [place] BC/BS [id number] Unknown HCAP/HFA/FAP Active M [id number] Unknown [id number] 2.16.840.1.938529.3.579.2.531 Social History Date Type Detail Facility Start: 10-18-2023 Tobacco smoking status NHIS Never smoked tobacco (finding) [facility] Start: 1945 Sex Assigned At Male F [facility] Sex Assigned At Sex Assigned At Bir th [facility] Other Evaluation note 10-18-2023 Note Date & Type Note Facility 10-18-2023 Evaluation note Encounter Date Diagnosis Assessment Notes Sep, Facial swelling (ICD-10 - R22.0) Patient is referred to the emergency room due to failed outpatient therapy of 2 different antibiotics, worsening swelling of his face. [facility] [employer] Other Discharge summary note 02-07-2022 Note Date & Type Note Facility 02-07-2022 Note MR#: [id number] I [facility] Pt. Name: Jamel Perez Niels Monique Admitted: 02/03/2022 Discharged: 02/07/2022 Date of : [...] who presented to the emergency department at [facility] as a transfer from an outside hospital [...] patient was discharged in stable condition to nursing home facility on February 07, 2022. Plan of [...] Yost MD Date Trans: 02/07/2022 12:59 P/freddy [id number] cc: Thee Mcguire D.O. [facility] [address] [facility] Evaluation note Note Date & Type Note Facility Evaluation note No [facility] Work [facility]: History general Narrative - Reported Note Date & Type Note Facility History general Narrative - Reported Type Medical History prostatism Medical History Hypothyroidism Medical History chronic depression Medical History hypertension Surgical History TONSILLECTOMY Surgical History HEMORRHOIDS Surgical History INGUINAL HERNIA X2 RIGHT AND LE FT Surgical History RIGHT TESTICLE REMOVED/INFECTIO N 2012 Surgical History CHOLECYSTECTOMY/INFECTION Surgical History APPENDECTOMY Surgical History PROSTATE TURP Surgical History FEET INGROWN TOENAILS AND WARTS Hospitalization History SEE ABOVE Hospitalization History ADMITTED FOR LOW SODIUM 2016 [facility] Other Summary Purpose Family History No Family [...] section and content) DATE CREATED AUTHOR 09/15/2018 [facility] DATE CREATED AUTHOR AUTHOR'S ORGANIZ ATION 10/03/2018 [facility] DATE CREATED AUTHOR AUTHOR'S ORGANIZ ATION 04/10/2022 [facility] DATE CREATED AUTHOR AUTHOR'S ORGANIZ ATION 03/11/2023 [facility] DATE CREATED AUTHOR AUTHOR'S ORGANIZ ATION 12/05/2023 [facility] DATE CREATED AUTHOR AUTHOR'S ORGANIZ ATION 02/27/2024 [facility] EPIC Care Teams (unrecognized [...] BE BASED ON THE PRIMARY CLINICAL RECORDS. [facility] provides no warranty or guarantee of the accuracy or completeness of information in this document.
[2024-03-21 08:31] VITALS: O2SAT 97
--- NOTE | 2024-03-21 08:40 | XR_ITS ---
[address] [address] Patient Name: ALBIN VILLALTA MRN: [id number] date: 1945 Sex: M Assigned Patient Location: ER Current Patient Location: ER Accession/Order Number: [id number] Exam Date: 03/21/2024 09:00 Report Date: 03/21/2024 09:49 At the request of: CHARLEE SILVA Procedure: XR lumbar spine 2-3V EXAMINATION: XR lumbar spine 2-3V, XR sacrum coccyx min 2V HISTORY: pain COMPARISON: CT abdomen pelvis 05/13/2022 FINDINGS: BONES: Moderate right convex curvature of lumbar spine. Stable moderate compression fracture of L1. Multilevel moderate-marked degenerative facet arthropathy. DISC SPACES: Multilevel moderate disc space narrowing. PARASPINOUS: Filter within the IVC. Left hip replacement. OTHER: Negative. XR/XR lumbar spine 2-3V IMPRESSION: 1. No appreciable acute abnormality of the thoracic or lumbar spine. 2. Stable multilevel degenerative changes. 3. Grossly stable remote compression fracture of L1. Electronically authenticated by: RILEY NEVES Date: 03/21/2024 09:49
--- NOTE | 2024-03-21 08:40 | XR_ITS ---
[address] [address] Patient Name: ALBIN VILLALTA MRN: [id number] date: 1945 Sex: M Assigned Patient Location: ER Current Patient Location: ER Accession/Order Number: [id number] Exam Date: 03/21/2024 09:00 Report Date: 03/21/2024 09:49 At the request of: CHARLEE SILVA Procedure: XR sacrum coccyx min 2V EXAMINATION: XR lumbar spine 2-3V, XR sacrum coccyx min 2V HISTORY: pain COMPARISON: CT abdomen pelvis 05/13/2022 FINDINGS: BONES: Moderate right convex curvature of lumbar spine. Stable moderate compression fracture of L1. Multilevel moderate-marked degenerative facet arthropathy. DISC SPACES: Multilevel moderate disc space narrowing. PARASPINOUS: Filter within the IVC. Left hip replacement. OTHER: Negative. XR/XR sacrum coccyx min 2V IMPRESSION: 1. No appreciable acute abnormality of the thoracic or lumbar spine. 2. Stable multilevel degenerative changes. 3. Grossly stable remote compression fracture of L1. Electronically authenticated by: RILEY NEVES Date: 03/21/2024 09:49
[2024-03-21] MEDS: TRAMADOL HCL 50 MG TABLET PO (09:08)
[2024-03-21] MEDS: PREDNISONE 20 MG TABLET 40 MG PO (09:08)
[2024-03-21 10:06] VITALS: BP 160/78; PULSE 73; O2SAT 99
--- NOTE | 2024-03-21 10:22 | CT_ITS ---
[address] [address] Patient Name: ALBIN VILLALTA MRN: [id number] date: 1945 Sex: M Assigned Patient Location: ER Current Patient Location: ER Accession/Order Number: [id number] Exam Date: 03/21/2024 10:50 Report Date: 03/21/2024 11:54 At the request of: CHARLEE SILVA Procedure: CT abdomen pelvis wo con EXAMINATION: CT abdomen pelvis wo con HISTORY: back pain and abd pain COMPARISON: CT abdomen pelvis 05/13/2022 TECHNIQUE: Axial, Coronal, and Sagittal images were obtained without and/or with IV contrast as indicated by examination type. Dose reduction techniques were achieved by using automated exposure control and/or adjustment of mA and/or kV according to patient size and/or use of iterative reconstruction technique. FINDINGS: LUNG BASES: No visible pulmonary or pleural disease. LIVER: No enlargement, atrophy, suspicious density, or significant focal lesion. BILIARY: Cholecystectomy. PANCREAS: No lesion, fluid collection, or abnormal duct dilatation. SPLEEN: No enlargement or focal lesion. ADRENALS: No mass or enlargement. KIDNEYS: Nonobstructing 4 mm stone within left kidney. BOWEL/MESENTERY: Mild circumferential wall thickening and trace amount of stranding of the pericolonic fat involving the hepatic flexure. Mild colitis of distal colon without acute inflammatory changes. No bowel obstruction. AORTA/VASCULAR: Filter within the IVC. No aortic aneurysm or dissection. RETROPERITONEUM: No mass or adenopathy. LYMPH NODES: No adenopathy. URINARY BLADDER: No visible focal wall thickening, lesion, or calculus. PELVIC ORGANS: No visible mass. Pelvic organs appropriate for patient age. ABDOMINAL WALL: No mass or hernia. BONES: Right convex curvature of thoracolumbar spine. Moderate compression fracture of L1 and multilevel degenerative disc disease. Prior left hip replacement. OTHER: Negative. CT/CT abdomen pelvis wo con IMPRESSION: 1. Possible mild colitis involving the hepatic flexure of the colon. 2. Nonobstructing left nephrolithiasis. 3. Stable moderate compression fracture of L1 vertebral body and multilevel degenerative changes. Electronically authenticated by: RILEY NEVES Date: 03/21/2024 11:54
[2024-03-21 10:39] LABS: Basophils Percent Auto 0.4 % (0.2-2.0); Eosinophils Absolute Auto 0.5 10^3/uL (0.0-0.7); Eosinophils Percent Auto 5.9 % (0.9-7.0); Hematocrit 31.8 % (42.0-54.0); Hemoglobin 10.2 g/dL (14.0-18.0); Immature Granulocytes Abs Auto 0.03 10^3/uL (0.00-0.03); Immature Granulocytes Pct Auto 0.4 % (0.0-0.5); Lymphocytes Absolute Auto 1.1 10^3/uL (1.2-3.8); Lymphocytes Percent Auto 13.4 % (20.5-60.0); Mean Corpuscular HGB Conc 32.1 g/dL (29.9-35.2); Mean Corpuscular Volume 90.3 fL (80.0-94.0); Mean Platelet Volume 9.7 fL (9.5-13.5); Monocytes Absolute Auto 0.6 10^3/uL (0.3-0.8); Monocytes Percent Auto 6.9 % (1.7-12.0); Neutrophils Absolute Auto 6.2 10^3/uL (1.4-6.5); Platelet Count 198 10^3/uL (150-450); Red Blood Count 3.52 10^6/uL (4.70-6.10); Red Cell Distribution Width 16.7 % (11.0-15.0); White Blood Count 8.5 10^3/uL (4.0-11.0)
[2024-03-21 10:55] LABS: INR 2.74; Prothrombin Time 26.3 sec (9.0-11.6)
[2024-03-21 10:58] VITALS: BP 170/90; PULSE 80; O2SAT 98
[2024-03-21 10:59] LABS: Carbon Dioxide 27.4 mmol/L (21.0-32.0); Chloride 99 mmol/L (98-107); Glucose 122 mg/dL (74-106); Potassium 3.4 mmol/L (3.5-5.1); Sodium 139 mmol/L (136-145)
[2024-03-21 11:00] LABS: Alanine Aminotransferase 20 U/L (16-63); Albumin Globulin Ratio 0.9; Albumin Level 4.1 g/dL (3.4-5.0); Alkaline Phosphatase 116 U/L (46-116); Aspartate Amino Transferase 22 U/L (15-37); Bilirubin Total 0.4 mg/dL (0.2-1.0); Calcium 8.9 mg/dL (8.5-10.1); Estimated GFR (African America 34 (>=60); Estimated GFR (Non-African Ame 28 (>=60); Globulin 4.4 g/dL; Total Protein 8.5 g/dL (6.4-8.2)
--- NOTE | 2024-03-21 11:05 | ED.GENADUL1 ---
HPI HPI - General Adult General Chief complaint: Back Pain/Injury Stated complaint: BACK PAIN Time Seen by Provider: 03/21/24 08:33 Source: patient Mode of arrival: walk-in Limitations: no limitations History of Present Illness HPI narrative: The patient have history of chronic back pain coming to the ER after he was trying to sit down yesterday when he started having pain also on the, he did not have any fall or trauma but he mentioned that he might have slid too quickly to the chair, the patient denies any numbness tingling down his legs denies any weakness, no incontinence of urine or stool Related Data Home Medications ?Medication ?Instructions ?Recorded ?Confirmed carvedilol 6.25 mg tablet 6.25 mg PO DAILY 06/02/23 11/28/23 duloxetine 60 mg capsule,delayed 60 mg PO QAM 06/02/23 11/28/23 release dutasteride 0.5 mg capsule 0.5 mg PO DAILY 06/02/23 11/28/23 lactulose 10 gram/15 mL oral 15 ml PO DAILY 06/02/23 06/02/23 solution (Constulose) liothyronine 5 mcg tablet 5 mcg PO DAILY 06/02/23 11/28/23 magnesium oxide 400 mg (241.3 mg 400 mg PO DAILY 06/02/23 11/28/23 magnesium) tablet montelukast 10 mg tablet 10 mg PO DAILY 06/02/23 11/28/23 pantoprazole 20 mg tablet,delayed 20 mg PO DAILY 06/02/23 06/02/23 release rosuvastatin 5 mg tablet 5 mg PO DAILY 06/02/23 11/28/23 tamsulosin 0.4 mg capsule 0.4 mg PO BID 06/02/23 11/28/23 warfarin 5 mg tablet 5 mg PO DAILY 06/02/23 11/28/23 baclofen 10 mg tablet 10 mg PO BEDTIME 11/28/23 11/28/23 furosemide 40 mg tablet 40 mg PO DAILY 11/28/23 11/28/23 trazodone 50 mg tablet mg 03/21/24 Previous Rx's ?Medication ?Instructions ?Recorded hydroxyzine HCl 25 mg tablet 25 mg PO TID PRN itching #20 tabs 05/25/23 prednisone 20 mg tablet 40 mg (2 x 20 mg) PO DAILY #10 tabs 03/21/24 tramadol 50 mg tablet 50 mg PO Q6H PRN pain #12 tabs 03/21/24 Allergies Allergy/AdvReac Type Severity Reaction Status Date / Time aspirin Allergy Unknown Verified 05/25/23 09:32 cephalexin [From Keflex] Allergy Unknown Verified 05/25/23 09:32 codeine Allergy Unknown Verified 05/25/23 09:32 indomethacin [From Indocin] Allergy Unknown Verified 05/25/23 09:32 metoclopramide [From Reglan] Allergy Unknown Verified 05/25/23 09:32 minocycline Allergy Unknown Verified 05/25/23 09:32 Penicillins Allergy Unknown Verified 05/25/23 09:32 Sulfa (Sulfonamide Allergy Unknown Verified 05/25/23 09:32 Antibiotics) tetracycline Allergy Unknown Verified 05/25/23 09:32 erytromycin ethylsuccinate Allergy Unknown Uncoded 05/25/23 09:32 Opioid HPI Opioid Management Most Recent Opioid Data: Last ED Pain Assessment 03/21/24 11:46 Review of Systems ROS Status of ROS 10 or more systems reviewed and unremarkable except as noted in history and below [facility] Social History Smoking status: Never smoker Exam Narrative Exam Narrative: Nurses notes and vital signs reviewed and patient is not hypoxic. General: Well-appearing and in no apparent distress. Skin: Warm, dry, no pallor noted. No rash. Head: Normocephalic, atraumatic. Neck: Supple, non-tender. Eye: Pupils are equal, round and EOMI. No scleral icterus. Ears, Nose, Mouth, and Throat: TM are clear, no nasal mucosal hypertrophy. Oral mucosa is moist, no posterior oropharynx erythema, uvula is mid-line Cardiovascular: Regular Rate and Rhythm without murmur, gallop or rub. Respiratory: No accessory muscle use or respiratory distress. Lungs are clear to auscultation, no wheezing, rales or rhonchi Chest Wall: no tenderness Back: No midline thoracic or lumbar vertebral tenderness. No CVA tenderness the patient have only very mild tenderness in the upper sacral area as well as the right paraspinal muscle level Musculoskeletal: normal ROM, no calf or popliteal tenderness, no lower extremity edema/swelling GI: Abdomen is soft, non-distended. Normal bowel sounds. No masses appreciated. No tenderness to palpation. No rebound, guarding, or rigidity noted. Neurological: A&O x4. No cranial nerve dysfunction observed. No truncal ataxia. Moves all extremities. Sensation intact. Psychiatric: Cooperative and interactive. Normal mood and affect. Constitutional Vital Signs, click to edit/add: Last Vital Signs Temp 98.3 F 03/21/24 08:22 Pulse 80 03/21/24 11:46 Resp 18 03/21/24 11:46 BP 166/80 H 03/21/24 11:46 Pulse Ox 95 03/21/24 11:46 O2 Del Method Room Air 03/21/24 08:31 Course Vital Signs Vital signs: Vital Signs Temperature 98.3 F 03/21/24 08:22 Pulse Rate 90 03/21/24 08:22 Respiratory Rate 18 03/21/24 08:22 Blood Pressure 160/77 H 03/21/24 08:22 Pulse Oximetry 98 03/21/24 08:22 Oxygen Delivery Method Room Air 03/21/24 08:22 Temperature 98.3 F 03/21/24 08:22 Pulse Rate 80 03/21/24 11:46 Respiratory Rate 18 03/21/24 11:46 Blood Pressure 166/80 H 03/21/24 11:46 Pulse Oximetry 95 03/21/24 11:46 Oxygen Delivery Method Room Air 03/21/24 08:31 Medical Decision Making MDM Narrative Medical decision making narrative: CBC and chemistry showed no acute significant pathology but there is a mild increase in the creatinine The patient blood pressure was 150 systolic at the bedside evaluation with a manual blood pressure check INR therapeutic The patient feeling better after initial treatment the CAT scan of the abdomen pelvis showed no acute significant pathology except for the compression fracture The patient instructed to follow-up with his primary care doctor as outpatient for further evaluation his blood pressure And he also instructed to use prednisone for the next 5 days as well as tramadol as needed for pain The patient is to follow up with primary care physician in next 2-3 days or to return to the emergency department should any of the signs or symptoms worsen or new symptoms develop. The patient agrees with the following Diagnosis and Treatment plan and the patient will be discharged home. Lab Data Labs: Lab Results 03/21/24 Range/Units 10:29 WBC 8.5 (4.0-11.0) 10^3/uL RBC 3.52 L (4.70-6.10) 10^6/uL Hgb 10.2 L (14.0-18.0) g/dL Hct 31.8 L (42.0-54.0) % MCV 90.3 (80.0-94.0) fL MCH 29.0 (25.9-34.0) pg MCHC 32.1 (29.9-35.2) g/dL RDW 16.7 H (11.0-15.0) % Plt Count 198 (150-450) 10^3/uL MPV 9.7 (9.5-13.5) fL Neut % (Auto) 73.0 (43.0-75.0) % Lymph % (Auto) 13.4 L (20.5-60.0) % [place] % (Auto) 6.9 (1.7-12.0) % Eos % (Auto) 5.9 (0.9-7.0) % Baso % (Auto) 0.4 (0.2-2.0) % Neut # (Auto) 6.2 (1.4-6.5) 10^3/uL Lymph # (Auto) 1.1 L (1.2-3.8) 10^3/uL [place] # (Auto) 0.6 (0.3-0.8) 10^3/uL Eos # (Auto) 0.5 (0.0-0.7) 10^3/uL Baso # (Auto) 0.0 (0.0-0.1) 10^3/uL Abs Immat Gran (auto) 0.03 (0.00-0.03) 10^3/uL Imm/Tot Granulo (auto) 0.4 (0.0-0.5) % PT 26.3 H (9.0-11.6) sec INR 2.74 Sodium 139 (136-145) mmol/L Potassium 3.4 L (3.5-5.1) mmol/L Chloride 99 (98-107) mmol/L Carbon Dioxide 27.4 (21.0-32.0) mmol/L Anion Gap 16.0 BUN 34.0 H (7.0-18.0) mg/dL Creatinine 2.27 H (0.70-1.30) mg/dL Est GFR ( Amer) 34 L (>=60) Est GFR (Non-Af Amer) 28 L (>=60) BUN/Creatinine Ratio 15.0 Glucose 122 H (74-106) mg/dL Calcium 8.9 (8.5-10.1) mg/dL Total Bilirubin 0.4 (0.2-1.0) mg/dL AST 22 (15-37) U/L ALT 20 (16-63) U/L Alkaline Phosphatase 116 (46-116) U/L Total Protein 8.5 H (6.4-8.2) g/dL Albumin 4.1 (3.4-5.0) g/dL Globulin 4.4 g/dL Albumin/Globulin Ratio 0.9 Discharge Plan Discharge Stand Alone Forms: Portal Instructions Chief Complaint: Back Pain/Injury Clinical Impression: Strain of lumbar region Qualifiers: Encounter type: initial encounter Qualified Code(s): S39.012A - Strain of muscle, fascia and tendon of lower back, initial encounter Patient Disposition: Home, Self-Care Time of Disposition Decision: 09:55 Condition: Good Prescriptions / Home Meds: New tramadol 50 mg tablet 50 mg PO Q6H PRN (Reason: pain ) Qty: 12 0RF prednisone 20 mg tablet 40 mg PO DAILY Qty: 10 0RF No Action trazodone 50 mg tablet hydroxyzine HCl 25 mg tablet 25 mg PO TID PRN (Reason: itching) Qty: 20 0RF carvedilol 6.25 mg tablet 6.25 mg PO DAILY duloxetine 60 mg capsule,delayed release(DR/EC) 60 mg PO QAM dutasteride 0.5 mg capsule 0.5 mg PO DAILY lactulose [Constulose] 10 gram/15 mL solution 15 ml PO DAILY liothyronine 5 mcg tablet 5 mcg PO DAILY magnesium oxide 400 mg (241.3 mg magnesium) tablet 400 mg PO DAILY montelukast 10 mg tablet 10 mg PO DAILY pantoprazole 20 mg tablet,delayed release (DR/EC) 20 mg PO DAILY rosuvastatin 5 mg tablet 5 mg PO DAILY tamsulosin 0.4 mg capsule 0.4 mg PO BID warfarin 5 mg tablet 5 mg PO DAILY baclofen 10 mg tablet 10 mg PO BEDTIME furosemide 40 mg tablet 40 mg PO DAILY Print Language: Croatian Instructions: Back Pain (ED) Referrals: TAHIR MCGUIRE MD [Primary Care Provider] - 1 week
[2024-03-21 11:46] VITALS: BP 166/80; PULSE 80; O2SAT 95
[2024-03-21 12:19] VITALS: BP 166/82; PULSE 83; O2SAT 98
== END 2024-03-21 12:23 | disposition home or self-care (01) ==
PROVIDERS: Emergency Provider Emergency Medicine; PCP Internal Medicine
DX: S39.012A Strain of muscle, fascia and tendon of lower back, initial encounter (principal); X50.9XXA Other and unspecified overexertion or strenuous movements or postures, initial encounter; Z79.01 Long term (current) use of anticoagulants
CPT/HCPCS: 36415; 72100; 72220; 74176; 80053; 85025; 85610; 99285

== ENCOUNTER 2024-04-10 05:53 | Emergency (ER) | payer MEDICARE, SELFPAY ==
[2024-04-10] VITALS (15 sets, daily range): BP systolic 154–218; BP diastolic 80–92; PULSE 72–84; TEMP 37.1; O2SAT 95–99; BMI 27.1
--- OUTSIDE RECORDS SUMMARY | 2024-04-10 06:01 | XMS_ITS ---
Patient Summarization (C-CDA 2.1 CCD) Created on: April 10, 2024 NIELS MCCULLOUGH JR. : 1945 Sex: Male Author Organization Sample organization Care Team Providers Care Qa Engineer Name Role Phone CLARITZA YARBROUGH Coleman Unavailable [...] CINDY, ISIDRO FRANKY Unavailable Unavailable CINDY, ISIDRO FARNKY Unavailable Unavailable FORRESTER, ALBERT L Unavailable Unavailab le EDD, AHMED Unavailable Unavailable EDD, AHMED Unavailable Unavailable CINDY, ISIDRO FRANKY Unavailable Unavailable UNKNOWN, PHYSICIAN Referring Unavailable CALEB, INOCENCIA Admitting Unavailable JENNIFER YOST Attending Unavailable THEE MCGUIRE Primary Care Unavailable VALONE, DR HARO Primary Care Unavailable EDMUND POWELL Admitting Unavailable EDMUND POWELL Attending Unavailable DEMUND POWELL Consulting Unavailable SARY RIGGS Consulting Unavailable DEVENDRA GUTIERREZ Consulting Unavailable VALONE, DR HARO Primary Care Unavailable PAY ., DR CASANOVA Admitting Unavailable PAY ., DR CASANOVA Attending Unavailable PAY ., DR CASANOVA Consulting Unavailable VALONE, DR HARO Primary Care Unavailable VALONE, DR HARO Admitting Unavailable VALONE, DR HARO Attending Unavailable VALONE, DR HARO Primary Care Unavailable HAY ., DR RICKS Admitting Unavailable HAY ., DR RICKS Attending Unavailable WEST, DR MIKA V Consulting Unavailable ALEXIS ., JUAN FELDER Consulting [...] Drug Allergy 06-24-20 13 Unknown Reaction [facility] (3 sources) Cephalexin Drug Allergy 06-24-20 13 Unknown [facility] (3 sources) Codeine Drug Allergy 06-24-20 13 Unknown Reaction [facility] (2 sources) Erythromycin Drug Allergy 11-23-19 19 Unknown Reaction [facility] (2 sources) Iothalamate Drug Allergy 06-24-20 13 [facility] (3 sources) Minocycline Drug Allergy 06-24-20 13 Unknown Reaction [facility] (1 source) Penicillin Drug Allergy 11-23-19 19 [facility] (2 sources) Procyclidine Drug Allergy 06-24-20 13 [facility] (1 source) Sulfamethoxazole / Trimethoprim Drug Allergy 11-23-19 19 [facility] (3 sources) Sulfonamides (Antibiotic) Drug allergy (disorder) 04-27-20 17 Unknown Reaction [facility] (3 sources) Tetracycline Drug Allergy 06-24-20 13 Unknown Reaction [facility] (2 sources) Penicillins Drug allergy (disorder) 06-24-20 13 Swelling [facility] (1 source) E.E.S. Drug allergy (disorder) 06-24-20 13 [facility] (3 sources) Cephalexin; Translations: [cephalexin] Drug Allergy 10-18-20 Unknown Reaction, Unknown [facility] (3 sources) Indomethacin; Translations: [indomethacin] Drug Allergy 10-18-20 Unknown Reaction, Unknown [facility] (1 source) Aspirin Drug Allergy Unknown [facility] Other (1 source) Codeine Drug Allergy Unknown [facility] Other (1 source) Erythromycin Drug Allergy Unknown [facility] Other (1 source) Metoclopramide Drug Allergy Unknown [facility] Other (1 source) Minocycline Drug Allergy Unknown [facility] Other (1 source) Penicillin G Drug Allergy Unknown [facility] Other (1 source) Sulfamethoxazole / Trimethoprim Drug Allergy Unknown [facility] Other (1 source) Tetracycline Drug Allergy Unknown [facility] Other (1 source) Aspirin Drug Allergy 10-18-20 [facility] (1 source) Codeine Drug Allergy 10-18-20 [facility] (1 source) Erythromycin Drug Allergy 10-18-20 [facility] (1 source) Metoclopramide Drug Allergy 10-18-20 [facility] (1 source) Minocycline Drug Allergy 10-18-20 [facility] (1 source) Penicillin Drug Allergy 10-18-20 [facility] (1 source) Penicillins Drug allergy (disorder) 10-18-20 [facility] (1 source) Sulfamethoxazole Drug Allergy 10-18-20 [facility] (1 source) Sulfonamides (Antibiotic) Drug allergy (disorder) 10-18-20 [facility] (1 source) Tetracycline Drug Allergy 10-18-20 [facility] (1 source) Trimethoprim Drug Allergy 10-18-20 [facility] Repository Encounters Encounter Date Encounter Type Care Provider Facility Start: 02-26-2024 End: 02-26-2024 ambulatory DEBRA MUNGUIA Not Available Start: 11-20-2023 End: 11-20-2023 ambulatory DEBRA MUNGUIA Not Available Start: 10-18-2023 End: 10-18-2023 ambulatory Brittany Amador Other [facility] Other Start: 10-18-2023 Patient encounter procedure Brittany Amador [facility] Richard Start: 10-18-2023 End: 10-18-2023 Emergency department patient visit Michael Amador Facility:[facility] Start: 10-18-2023 End: 10-18-2023 Emergency department patient visit [facility] Work Phone: Start: 03-10-[address] THEE MCGUIRE Facil ity:[facility]1 Start: 10-30-2022 End: 10-30-[address] THEE MCGUIRE Facility:[facility] Start: 09-10-2022 End: 09-10-[address] THEE MCGUIRE Facility:[facility] Start: 05-13-2022 End: 05-14-[address] THEE MCGUIRE Facility:[facility] Start: 02-03-2022 End: 02-07-2022 Evaluation and management of inpatient PHYSICIAN UNKNOWN Facility:[facility] Start: 08-17-2018 End: 08-31-2018 Evaluation and management of inpatient [facility] Start: 08-16-2018 End: 08-16-2018 Emergency department patient visit [facility] Start: 08-06-2018 End: 08-06-2018 Emergency department patient visit [facility] Start: 08-03-2018 End: 08-04-2018 Patient encounter [facility] Start: 06-15-2018 End: 06-16-2018 Patient encounter ISIDRO [facility] Start: 05-04-2018 End: 05-04-2018 Emergency department patient visit [facility] Start: 03-30-2018 End: 03-31-2018 Patient encounter [facility]EN [facility] Start: 03-27-2018 End: 03-28-2018 Patient encounter RUBEN RIOS [facility] Start: 03-12-2018 End: 03-15-2018 Patient encounter RUBEN RIOS [facility] Start: 10-14-2017 End: 10-15-2017 Patient encounter RUBEN [facility] Start: 10-01-2017 End: 10-02-2017 Patient encounter CLARITZA [facility] Medications Current Medications Medication Drug Class(es) Dates [...] Active MG TABLET October 18, 2023 12:00am Payers Date Payer Category Payer Self-pay 2023 Unknown [id number] 2015 Medicare [id number] 1959 Medicare [id number] 1959 Private Health Insurance [id number] 1945 Unknown [id number] 1945 Unknown [id number] 2.16840.1.483510.3.579.2.173 1945 Unknown [id number] .[id number] 1945 Unknown [id number] 2.16.840.1.569258.3.579.2.173 1945 Unknown [id number] 2.16.840.1.230378.3.579.2.173 1945 Unknown [id number] 2.16.840.1.264083.3.579.2.173 1945 Unknown [id number] 2.16.840.1.482874.3.579.2.173 1945 Unknown [id number] 2.16.840.1.810064.3.579.2.173 1945 Unknown [id number] 2.16.840.1.322413.3.579.2.173 1945 Unknown [id number] 2.16.840.1.979111.3.579.2.173 1945 Unknown [id number] 2.16.840.1.266737.3.579.2.173 1945 Unknown [id number] 2.16.840.1.055465.3.579.2.176 1945 Unknown [id number] 2.16.840.1.684737.3.579.2.647 1945 Unknown [id number] 2.16.840.1.718354.3.579.2.593 1945 Unknown [id number] 2.16.840.1.810918.3.579.2.593 1945 Unknown [id number] 2.16.840.1.990561.3.579.2.593 1945 Unknown [id number] 2.16.840.1.995262.3.579.2.593 1945 Unknown [id number] 2.16.840.1.679845.3.579.2.125 9 1945 Unknown [id number] 2.16.840.1.898747.3.579.2.125 9 Unknown Delia BC/BS [id number] Unknown HCAP/HFA/FAP Active M [id number] Unknown [id number] [id number]1 Plan of Treatment Date Care Activity Detail Author Start: 10-18-2023 Bacteria identified in Blood by Culture [facility] Start: 10-18-2023 Superficial Wound Culture Superficial Wound Culture [facility] Bacteria identified in Unspecified specimen by Aerobe culture [facility] Patient Education Cellulitis (Sk in Infection), Adult (DC) [facility] Work Phone: Patient referral [facility] Work Phone: Problems Active Problems Problem Classification Problem Date [...] 09-10-2022 Episodic Other aftercare (3 sources) Other assisted (current) drug therapy; Translations: [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 Start: 08-31-2018 DISCHARGE PATIENT PJ PUGA Start: 08-19-2018 Microscopic urinalysis PJ PARRJUA Start: 08-19-2018 URINE RT REFLEX TO CULTURE PJ PUGA Start: 08-17-2018 DIETARY NUTRITION SUPPLEMENTS PJ PUGA Start: 08-17-2018 PATIENT STATUS (FROM ED OR OR/PROCEDURAL) PJ PUGA Start: 08-17-2018 IP CONSULT TO SCHOOL PSYCHOLOGIST ASSISTANT AL MEDICINE PJ PUGA Start: 08-17-2018 DIET GENERAL PJ MUSTAFA Start: 08-17-2018 IP CONSULT TO DIETITIAN PJ PUGA Start: 08-17-2018 IP CONSULT TO HISTOR Y AND PHYSICAL PJ PUGA Start: 08-17-2018 MISCELLANEOUS NURSIN G CARE ORDER (SPECIFY) PJ PUGA Start: 08-17-2018 OT EVAL AND TREAT PJ PUGA Start: 08-17-2018 PT EVAL AND TREAT PJ PUGA Start: 08-17-2018 FULL CODE PJ MUSTAFA Start: 08-17-2018 MONITOR PJ MUSTAFA Start: 08-16-2018 URINE DRUG SCREEN PATRI CK YARBROUGH Start: 08-16-2018 Urnls dip stick/tabl et reagent auto microscopy CLARITZA YARBROUGH Start: 08-16-2018 EKG 12-LEAD CLARITZA WA TERS Start: 08-16-2018 ACETAMINOPHEN LEVEL PAT SHAWANDA [...] complete auto&auto difrntl wbc CLARITZA YARBROUGH Start: 10-11-2018 Comprehensive metabolic panel CLARITZA YARBROUGH Start: 08-06-2018 [...] YARBROUGH Start: 10-01-2017 PSA, DIAGNOSTIC CLARITZA YARBROUGH Results Test Name Value Interpretation Reference Range Facility Activated partial thrombopla stin time (aPTT) in platelet poor plasma by coagulation aOrdered By: Michael Amador on 10-18-2023 aPTT Coag (PPP) [Time] 31.2 s 25.1-36.5 [facility] Comment on above: A hematocrit value g reater than 55% may lead to inaccurate results in coagulation testing. Patients having hematocrit values >55% require a special collection tube for coagulation studies. Please contact the laboratory at [phone] for redraw instructions. Alanine aminotransferase [En zymatic activity/volume] in Serum or PlasmaOrdered By: Michael Amador on 10-18-2023 ALT [Catalytic activity/Vol] 9 U/L 7-52 [facility] Albumin [Mass/volume] in Ser um or Plasma by Bromocresol green (BCG) dye binding methoOrdered By: Michael Amador on 10-18-2023 Albumin BCG dye [Mass/Vol] 3.9 g/dL 3.5-5.7 [facility] Alkaline phosphatase [Enzyma tic activity/volume] in Serum or PlasmaOrdered By: Michael Amador on 10-18-2023 ALP [Catalytic activity/Vol] 65 U/L 34-104 [facility] Aspartate aminotransferase [ Enzymatic activity/volume] in Serum or PlasmaOrdered By: Michael Amador on 10-18-2023 AST [Catalytic activity/Vol] 12 U/L 13-39 [facility] Basophils Auto (Bld) [#/Vol] Ordered By: Michael Amador on 10-18-2023 Basophils (Bld) [#/Vol] 0.0 10*3/uL 0.0-0.2 [facility] Basophils/100 WBC Auto (Bld) Ordered By: Michael Amador on 10-18-2023 Basophils/100 WBC (Bld) 0.3 % . [facility] Bilirubin.total [Mass/volume ] in Serum or PlasmaOrdered By: Michael Amador on 10-18-2023 Bilirubin [Mass/Vol] 0.5 mg/dL 0.3-1.0 [facility] Blood Cultureon 10-18-2023 Bacteria identified Cx Nom (Bld) NO GROWTH 5 DAYS PERFORMED BY: [place] [address] PATHOLOGIST BAKER SECOND DAVID VERA M.D. Normal [facility] Comment on above: Performed By: #### P TT, CUBLD, CBC, LACTIC, CMP, PT #### [facility] [address] [place] [address] CT sinus wo conon 10-18-2023 CT sinus wo con [facility] Main [place] [address] [place] [address] CT Scan Report Signed Patient: Niels Mccullough JR MR#: [id number] : 1945 Acct:[id number] Age/Sex: 77 / M ADM Date: 10/18/23 Loc: ER Room: Type: [facility] ER Attending Dr: Copies to: Michael Amador [...] Rachel Briseno M.D.10/18/2023 1:17 PM Dictation Location: [place] [address] Transcribed By: EMILIO 10/18/23 131 Dictated By: Rachel Briseno MD 10/18/23 1312 Signed By: 10/18/23 1317 Normal [facility] Calcium [Mass/volume] in Ser um or PlasmaOrdered By: Michael Amador on 10-18-2023 Calcium [Mass/Vol] 9.0 mg/dL 8.6-10.3 [facility] Carbon dioxide, total [Moles /volume] in Serum or PlasmaOrdered By: Michael Amador on 10-18-2023 CO2 [Moles/Vol] 23.9 mmol/L 21.0-31.0 [facility] Chloride [Moles/volume] in S beth or PlasmaOrdered By: Michael Amador on 10-18-2023 Chloride [Moles/Vol] 105 mmol/L 98-107 [facility] Complete Blood Count Auto Di ffon 10-18-2023 Basophils (Bld) [#/Vol] 0.0 10*3/uL Normal 0.0-0.2 [facility] Comment on above: Result Comment: PERF ORMED BY: [place] [address] PATHOLOGIST BAKER SECOND DAVID VERA M.D. Performed By: #### P TT, CUBLD, CBC, LACTIC, CMP, PT #### [address] Basophils/100 WBC (Bld) 0.3 % Normal . [facility] Comment on above: Performed By: #### P TT, CUBLD, CBC, LACTIC, CMP, PT #### [facility] [address] [place] [address] Eosinophils (Bld) [#/Vol] 0.1 10*3/uL Normal 0.0-0.45 [facility] Comment on above: Performed By: #### P TT, CUBLD, CBC, LACTIC, CMP, PT #### [facility] [address] [place] [address] Eosinophils/100 WBC (Bld) 0.9 % Normal . [facility] Comment on above: Performed By: #### P TT, CUBLD, CBC, LACTIC, CMP, PT #### [facility] [address] [place] [address] Erythrocyte distribution width (RBC) [Ratio] 14.9 % High 12.0-14.8 [facility] Comment on above: Performed By: #### P TT, CUBLD, CBC, LACTIC, CMP, PT #### [facility] [address] [place] [address] Hematocrit (Bld) [Volume fraction] 29.9 % Low 38.8-50.0 [facility] Comment on above: Performed By: #### P TT, CUBLD, CBC, LACTIC, CMP, PT #### [address] [place] [address] [place] Hemoglobin (Bld) [Mass/Vol] 10.2 g/dL Low 13.0-17.0 [facility] Comment on above: Performed By: #### P TT, CUBLD, CBC, LACTIC, CMP, PT #### [address] Lymphocytes (Bld) [#/Vol] 0.9 10*3/uL Low 1.00-4.8 [facility] Comment on above: Performed By: #### P TT, CUBLD, CBC, LACTIC, CMP, PT #### [address] Lymphocytes/100 WBC (Bld) 10.2 % Normal . [facility] Comment on above: Performed By: #### P TT, CUBLD, CBC, LACTIC, CMP, PT #### [address] MCH (RBC) [Entitic mass] 32.4 pg Normal 27.5-35.2 [facility] Comment on above: Performed By: #### P TT, CUBLD, CBC, LACTIC, CMP, PT #### [address] MCV (RBC) [Entitic vol] 94.7 fL Normal 83.5-101 [facility] Comment on above: Performed By: #### P TT, CUBLD, CBC, LACTIC, CMP, PT #### [address] Mean Corpuscular HGB Conc 34.2 g/dL Normal 32.5-35.6 [facility] Comment on above: Performed By: #### P TT, CUBLD, CBC, LACTIC, CMP, PT #### [address] Monocytes (Bld) [#/Vol] 0.9 10*3/uL High 0.0-0.8 [facility] Comment on above: Performed By: #### P TT, CUBLD, CBC, LACTIC, CMP, PT #### [place] [address] [place] Monocytes/100 WBC (Bld) 19.23 % Normal 0.00-20.00 [facility] Comment on above: Performed By: #### P TT, CUBLD, CBC, LACTIC, CMP, PT #### [address] Monocytes/100 WBC (Bld) 9.6 % Normal . [facility] Comment on above: Performed By: #### P TT, CUBLD, CBC, LACTIC, CMP, PT #### [address] Neutrophils (Bld) [#/Vol] 7.2 10*3/uL Normal 1.8-7.7 [facility] Comment on above: Performed By: #### P TT, CUBLD, CBC, LACTIC, CMP, PT #### [address] Neutrophils/100 WBC (Bld) 79.0 % Normal . [facility] Comment on above: Performed By: #### P TT, CUBLD, CBC, LACTIC, CMP, PT #### [place] [address] [place] NRBC% 0.0 /100{WBC} Normal 0-0.5 [facility] Comment on above: Performed By: #### P TT, CUBLD, CBC, LACTIC, CMP, PT #### [place] [address] [place] Platelet mean volume (Bld) [Entitic vol] 7.0 fL Normal 6.6-10.1 [facility] Comment on above: Performed By: #### P TT, CUBLD, CBC, LACTIC, CMP, PT #### [place] [address] [place] Platelets (Bld) [#/Vol] 202 10*3/uL Normal 150-450 [facility] Comment on above: Performed By: #### P TT, CUBLD, CBC, LACTIC, CMP, PT #### [place] [address] [place] RBC (Bld) [#/Vol] 3.15 10*6/uL Low 3.90-5.60 [facility] Comment on above: Performed By: #### P TT, CUBLD, CBC, LACTIC, CMP, PT #### [address] WBC (Bld) [#/Vol] 9.1 10*3/uL Normal 4.1-10.5 [facility] Comment on above: Performed By: #### P TT, CUBLD, CBC, LACTIC, CMP, PT #### [address] Comprehensive Metabolic Pane k[place] 10-18-2023 Albumin [Mass/Vol] 3.9 g/dL Normal 3.5-5.7 [facility] Comment on above: Performed By: #### P TT, CUBLD, CBC, LACTIC, CMP, PT #### [address] Albumin/Globulin [Mass ratio] 1.1 {ratio} Normal [facility] Comment on above: Performed By: #### P TT, CUBLD, CBC, LACTIC, CMP, PT #### [address] ALP [Catalytic activity/Vol] 65 U/L Normal 34-104 [facility] Comment on above: Performed By: #### P TT, CUBLD, CBC, LACTIC, CMP, PT #### [address] ALT [Catalytic activity/Vol] 9 U/L Normal 7-52 [facility] Comment on above: Performed By: #### P TT, CUBLD, CBC, LACTIC, CMP, PT #### [address] Anion gap [Moles/Vol] 9.8 mmol/L Normal 6.0-15.0 [facility] Comment on above: Performed By: #### P TT, CUBLD, CBC, LACTIC, CMP, PT #### [address] AST [Catalytic activity/Vol] 12 U/L Low 13-39 [facility] Comment on above: Performed By: #### P TT, CUBLD, CBC, LACTIC, CMP, PT #### [facility] [address] Bilirubin [Mass/Vol] 0.5 mg/dL Normal 0.3-1.0 [facility] Comment on above: Performed By: #### P TT, CUBLD, CBC, LACTIC, CMP, PT #### [facility] [address] Calcium [Mass/Vol] 9.0 mg/dL Normal 8.6-10.3 [facility] Comment on above: Performed By: #### P TT, CUBLD, CBC, LACTIC, CMP, PT #### [facility] [address] Chloride [Moles/Vol] 105 mmol/L Normal 98-107 [facility] Comment on above: Performed By: #### P TT, CUBLD, CBC, LACTIC, CMP, PT #### [facility] [address] CO2 [Moles/Vol] 23.9 mmol/L Normal 21.0-31.0 [facility] Comment on above: Performed By: #### P TT, CUBLD, CBC, LACTIC, CMP, PT #### [facility] [address] [place] [address] [place] Creatinine [Mass/Vol] 1.98 mg/dL High 0.70-1.30 [facility] Comment on above: Performed By: #### P TT, CUBLD, CBC, LACTIC, CMP, PT #### [facility] [address] [place] [address] [place] Creatinine Clr Calc Pharmacy 35.87 Normal [facility] Comment on above: Result Comment: PERF ORMED BY: [place] [address] PATHOLOGIST BAKER SECOND DAVID VERA M.D. Performed By: #### P TT, CUBLD, CBC, LACTIC, CMP, PT #### [facility] [address] [place] [address] [place] GFR/1.73 sq M.predicted MDRD (S/P/Bld) [Vol rate/Area] 34.364 mL/min/{1.73_m2} Normal [facility] Comment on above: Performed By: #### P TT, CUBLD, CBC, LACTIC, CMP, PT #### [facility] [address] Globulin (S) [Mass/Vol] 3.7 g/dL [facility] Comment on above: Performed By: #### P TT, CUBLD, CBC, LACTIC, CMP, PT #### [facility] [address] Glucose [Mass/Vol] 114 mg/dL High 70-100 [facility] Comment on above: Result Comment: [place] Glucose Reference Range is dependent on time and content of last meal. Glucose of more than 200 mg/dL in a nonstressed, ambulatory subject supports the diagnosis of Diabetes Mellitus. ADA recommended reference range Performed By: #### P TT, CUBLD, CBC, LACTIC, CMP, PT #### [facility] [address] Potassium [Moles/Vol] 3.7 mmol/L Normal 3.5-5.1 [facility] Comment on above: Performed By: #### P TT, CUBLD, CBC, LACTIC, CMP, PT #### [facility] [address] [place] [address] [place] Protein [Mass/Vol] 7.6 g/dL Normal 6.4-8.9 [facility] Comment on above: Performed By: #### P TT, CUBLD, CBC, LACTIC, CMP, PT #### [facility] [address] [place] [address] [place] Sodium [Moles/Vol] 135 mmol/L Low 136-145 [facility] Comment on above: Performed By: #### P TT, CUBLD, CBC, LACTIC, CMP, PT #### [facility] [address] [place] [address] [place] Urea nitrogen [Mass/Vol] 31 mg/dL High 7-25 [facility] Comment on above: Performed By: #### P TT, CUBLD, CBC, LACTIC, CMP, PT #### [facility] [address] Creatinine [Mass/volume] in Serum or PlasmaOrdered By: Michael Amador on 10-18-2023 Creatinine [Mass/Vol] 1.98 mg/dL 0.70-1.30 [facility] ECG 12 lead ECGon 10-18-2023 ECG 12 lead ECG [facility] Main [place] [address] [place] [address] Electrocardiograph Report Signed Patient: Niels Mccullough JR MR#: [id number] : 1945 Acct:[id number] Age/Sex: 77 / M ADM Date: 10/18/23 Loc: ER Room: Type: [facility] ER Attending Dr: Ordering Provider: Michael Amador [...] MUS Signed By Jayesh Alex MD 10/18/23 1535 Normal [facility] Eosinophils Auto (Bld) [#/Vo l]Ordered By: Michael Amador on 10-18-2023 Eosinophils (Bld) [#/Vol] 0.1 10*3/uL 0.0-0.45 [facility] Eosinophils/100 WBC Auto (Bl d)Ordered By: Michael Amador on 10-18-2023 Eosinophils/100 WBC (Bld) 0.9 % . [facility] Erythrocyte distribution wid th Auto (RBC) [Ratio]Ordered By: Michael Amador on 10-18-2023 Erythrocyte distribution width (RBC) [Ratio] 14.9 % 12.0-14.8 [facility] Globulin Calc (S) [Mass/Vol] Ordered By: Michael Amador on 10-18-2023 Globulin (S) [Mass/Vol] 3.7 g/dL [facility] Glucose [Mass/volume] in Ser um or PlasmaOrdered By: Michael Amador on 10-18-2023 Glucose [Mass/Vol] 114 mg/dL 70-100 [facility] Comment on above: ADA recommended refe rence rangeRandom Glucose Reference Range is dependent on time and content of last meal. Glucose of more than 200 mg/dL in a nonstressed, ambulatory subject supports the diagnosis of Diabetes Mellitus. Hematocrit Auto (Bld) [Volum e fraction]Ordered By: Michael Amador on 10-18-2023 Hematocrit (Bld) [Volume fraction] 29.9 % 38.8-50.0 [facility] Hemoglobin [Mass/volume] in BloodOrdered By: Michael Amador on 10-18-2023 Hemoglobin (Bld) [Mass/Vol] 10.2 g/dL 13.0-17.0 [facility] INR in Platelet poor plasma by Coagulation assayOrdered By: Michael Amador on 10-18-2023 INR Coag (PPP) [Relative time] 1.4 {INR} [facility] Comment on above: INR Therapeutic Rang [...] Lactate [Moles/Vol] 0.7 mmol/L 0.5-2.2 [facility] Lactic Acidon 10-18-2023 Lactate [Moles/Vol] 0.7 mmol/L Normal 0.5-2.2 [facility] Comment on above: Result Comment: PERF ORMED BY: [facility] [address] [place] [address] PATHOLOGIST BAKER SECOND DAVID VERA M.D. Performed By: #### P TT, CUBLD, CBC, LACTIC, CMP, PT #### [facility] [address] Leukocytes [#/volume] correc alexys for nucleated erythrocytes in Blood by Automated counOrdered By: Michael Amador on 10-18-2023 WBC corrected for nucl RBC Auto (Bld) [#/Vol] 9.1 10*3/uL 4.1-10.5 [facility] Lymphocytes Auto (Bld) [#/Vo l]Ordered By: Michael Amador on 10-18-2023 Lymphocytes (Bld) [#/Vol] 0.9 10*3/uL 1.00-4.8 [facility] Lymphocytes/100 WBC Auto (Bl d)Ordered By: Michael Amador on 10-18-2023 Lymphocytes/100 WBC (Bld) 10.2 % . [facility] MCH Auto (RBC) [Entitic mass ]Ordered By: Michael Amador on 10-18-2023 MCH (RBC) [Entitic mass] 32.4 pg 27.5-35.2 [facility] MCHC Auto (RBC) [Mass/Vol]Or dered By: Michael Amador on 10-18-2023 MCHC (RBC) [Mass/Vol] 34.2 g/dL 32.5-35.6 [facility] MCV Auto (RBC) [Entitic vol] Ordered By: Michael Amador on 10-18-2023 MCV (RBC) [Entitic vol] 94.7 fL 83.5-101 [facility] Monocyte distribution width [Entitic volume] in Blood by AutomatedOrdered By: Michael Amador on 10-18-2023 Monocyte distribution width Auto (Bld) [Entitic vol] 19.23 % 0.00-20.00 [facility] Monocytes Auto (Bld) [#/Vol] Ordered By: Michael Amador on 10-18-2023 Monocytes (Bld) [#/Vol] 0.9 10*3/uL 0.0-0.8 [facility] Monocytes/100 WBC Auto (Bld) Ordered By: Michael Amador on 10-18-2023 Monocytes/100 WBC (Bld) 9.6 % . [facility] Neutrophils Auto (Bld) [#/Vo l]Ordered By: Michael Amador on 10-18-2023 Neutrophils (Bld) [#/Vol] 7.2 10*3/uL 1.8-7.7 [facility] Neutrophils/100 WBC Auto (Bl d)Ordered By: Michael Amador on 10-18-2023 Neutrophils/100 WBC (Bld) 79.0 % . [facility] No Panel InformationOrdered By: Michael Amador on 10-18-2023 Estimated GFR (CKD-EPI) 34.364 mL/Min [facility] Creatinine Clearance (Chem 35.87 [facility] Nucleated erythrocytes [Pres ence] in Blood by Automated countOrdered By: Michael Amador on 10-18-2023 Nucleated RBC Auto Ql (Bld) 0.0 /100{WBC} 0-0.5 [facility] Partial Thromboplastin Timeo n 10-18-2023 aPTT Coag (Bld) [Time] 31.2 s Normal 25.1-36.5 [facility] Comment on above: Result Comment: A he matocrit value greater than 55% may lead to inaccurate results in coagulation testing. Patients having hematocrit values >55% require a special collection tube for coagulation studies. Please contact the laboratory at [phone] for redraw instructions. PERFORMED BY: [place] [address] PATHOLOGIST BAKER SECOND DAVID VERA M.D. Performed By: #### P TT, CUBLD, CBC, LACTIC, CMP, PT #### [address] Platelet mean volume Auto (B ld) [Entitic vol]Ordered By: Michael Amador on 10-18-2023 Platelet mean volume (Bld) [Entitic vol] 7.0 fL 6.6-10.1 [facility] Platelets Auto (Bld) [#/Vol] Ordered By: Michael Amador on 10-18-2023 Platelets (Bld) [#/Vol] 202 10*3/uL 150-450 [facility] Potassium [Moles/volume] in Serum or PlasmaOrdered By: Michael Amador on 10-18-2023 Potassium [Moles/Vol] 3.7 mmol/L 3.5-5.1 [facility] Protein [Mass/volume] in Ser um or PlasmaOrdered By: Michael Amador on 10-18-2023 Protein [Mass/Vol] 7.6 g/dL 6.4-8.9 [facility] Prothrombin Time INRon 10-18 INR Coag (PPP) [Relative time] 1.4 {INR} Normal [facility] Comment on above: Result Comment: INR [...] TT, CUBLD, CBC, LACTIC, CMP, PT #### [facility] [address] PT Coag (PPP) [Time] 16.6 s High 9.0-12.9 [facility] Comment on above: Result Comment: A he matocrit value greater than 55% may lead to inaccurate results in coagulation testing. Patients having hematocrit values >55% require a special collection tube for coagulation studies. Please contact the laboratory at [phone] for redraw instructions. Performed By: #### P TT, CUBLD, CBC, LACTIC, CMP, PT #### [facility] [address] Prothrombin time (PT)Ordered By: Michael Amador on 10-18-2023 PT Coag (PPP) [Time] 16.6 s 9.0-12.9 [facility] Comment on above: A hematocrit value g reater than 55% may lead to inaccurate results in coagulation testing. Patients having hematocrit values >55% require a special collection tube for coagulation studies. Please contact the laboratory at [phone] for redraw instructions. RBC Auto (Bld) [#/Vol]Ordere d By: Michael Amador on 10-18-2023 RBC (Bld) [#/Vol] 3.15 10*6/uL 3.90-5.60 [facility] Serum or plasma albumin/glob ulin mass ratioOrdered By: Michael Amador on 10-18-2023 Albumin/Globulin [Mass ratio] 1.1 {ratio} [facility] Serum or plasma anion gap de terminationOrdered By: Michael Amador on 10-18-2023 Anion gap [Moles/Vol] 9.8 mmol/L 6.0-15.0 [facility] Sodium [Moles/volume] in Ser um or PlasmaOrdered By: Michael Amador on 10-18-2023 Sodium [Moles/Vol] 135 mmol/L 136-145 [facility] Superficial Wound Cultureon 10-18-2023 Superficial Wound Culture ORGANISM: Staphylococcus aureus (O:STAAUR) Quantity of Growth Light Growth Aerobic DRE Charge (PCMIC38) SUSCEPTIBILITY ORGANISM: O:STAAUR ANTIBIOTIC INTERPRETATION RDE Azithromycin R >4 Ceftaroline S <0.5 Ciprofloxacin [...] RESISTANT TO ALL B-LACTAM DRUGS. PERFORMED BY: [facility] [address] [place] [address] PATHOLOGIST BAKER SECOND DAVID VERA M.D. Normal [facility] Comment on above: Performed By: #### C USUP #### [address] Urea nitrogen [Mass/volume] in Serum or PlasmaOrdered By: Michael Amador on 10-18-2023 Urea nitrogen [Mass/Vol] 31 mg/dL 05-20 [facility] WBC Auto (Bld) [#/Vol]Ordere d By: Michael Amador on 10-18-2023 WBC (Bld) [#/Vol] 9.1 10*3/uL 4.1-10.5 [facility] BNPon 10-30-2022 Natriuretic peptide B (Bld) [Mass/Vol] 4309.0 pg/mL Critically high <=1,800.0 [facility] Comment on above: Performed By: #### C BC #### [facility] [address] [place] [address] Dr. Kelsea Guillermo CBC AUTO DIFFon 10-30-2022 BASO # 0.0 103/ul Normal 0.0-0.1 [facility] Comment on above: Performed By: #### C BC #### [facility] [address] [place] [address] [address] Kelsea Guillermo Basophils/100 WBC (Bld) 0.4 % Normal 0.2-2.0 [facility] Comment on above: Performed By: #### C BC #### [facility] [address] [place] [address] Dr. Kelsea Guillermo EO # 0.5 103/ul Normal 0.0-0.7 [facility] Comment on above: Performed By: #### C BC #### [facility] [address] [address] [address] Kelsea Guillermo Eosinophils/100 WBC (Bld) 6.4 % Normal 0.9-7.0 [facility] Comment on above: Performed By: #### C BC #### [facility] [address] [place] [address] Dr. Kelsea Guillermo Erythrocyte distribution width (RBC) [Ratio] 13.3 % Normal 11.0-15.0 [facility] Comment on above: Performed By: #### C BC #### [facility] [address] [place] [address] Dr. Kelsea Guillermo Hematocrit (Bld) [Volume fraction] 33.9 % Critically low 42.0-54.0 [facility] Comment on above: Performed By: #### C BC #### [facility] [address] [place] [address] Dr. Kelsea Guillermo Hemoglobin (Bld) [Mass/Vol] 11.6 g/dL Critically low 14.0-18.0 [facility] Comment on above: Performed By: #### C BC #### [facility] [address] [place] [address] Dr. Kelsea Guillermo IG # 0.02 10e3/ul Normal 0.00-0.03 [facility] Comment on above: Performed By: #### C BC #### [facility] [address] [place] [address] Dr. Kelsea Guillermo IG % 0.3 % Normal 0.0-0.5 [facility] Comment on above: Performed By: #### C BC #### [facility] [address] [place] [address] Dr. Kelsea Guillermo LYMPH # 1.0 103/ul Critically low 1.2-3.8 [facility] Comment on above: Performed By: #### C BC #### [facility] [address] [place] [address] Dr. Kelsea Guillermo Lymphocytes/100 WBC (Bld) 14.0 % Critically low 20.5-60.0 [facility] Comment on above: Performed By: #### C BC #### [facility] [address] [place] [address] Dr. Kelsea Guillermo MANUAL DIFF REQ NO Normal [facility] Comment on above: Performed By: #### C BC #### [facility] [address] [place] [address] Dr. Kelsea Guillermo MCH (RBC) [Entitic mass] 32.5 pg Normal 25.9-34.0 [facility] Comment on above: Performed By: #### C BC #### [facility] [address] [place] [address] Dr. Kelsea Guillermo MCHC (RBC) [Mass/Vol] 34.2 g/dL Normal 29.9-35.2 [facility] Comment on above: Performed By: #### C BC #### [facility] [address] [place] [address] Dr. Kelsea Guillermo MCV (RBC) [Entitic vol] 95.0 fL Critically high 80.0-94.0 [facility] Comment on above: Performed By: #### C BC #### [facility] [address] [place] [address] Dr. Kelsea Guillermo MONO # 0.6 103/ul Normal 0.3-0.8 [facility] Comment on above: Performed By: #### C BC #### [facility] [address] [place] [address] Dr. Kelsea Guillermo Monocytes/100 WBC (Bld) 8.7 % Normal 1.7-12.0 [facility] Comment on above: Performed By: #### C BC #### [facility] [address] [place] [address] Dr. Kelsea Guillermo NEUT # 5.0 103/ul Normal 1.4-6.5 [facility] Comment on above: Performed By: #### C BC #### [facility] [address] [place] [address] Dr. Kelsea Guillermo Neutrophils/100 WBC (Bld) 70.2 % Normal 43.0-75.0 [facility] Comment on above: Performed By: #### C BC #### [facility] [address] [place] [address] Dr. Kelsea Guillermo Platelet mean volume (Bld) [Entitic vol] 9.1 fL Critically low 9.5-13.5 [facility] Comment on above: Performed By: #### C BC #### [facility] [address] [place] [address] Dr. Kelsea Guillermo PLT 171 103/ul Normal 150-450 [facility] Comment on above: Performed By: #### C BC #### [facility] [address] [address] [address] Kelsea Guillermo RBC 3.57 106/ul Critically low 4.70-6.10 [facility] Comment on above: Performed By: #### C BC #### [facility] [id number] Kelsea Guillermo WBC 7.2 103/ul Normal 4.0-11.0 [facility] Comment on above: Performed By: #### C BC #### [facility] [id number] Kelsea Guillermo CT HEAD WO CONon [...] Truong ELAM Date: 2022-10-30 21:14 Normal [facility] Covid-19 PCR (CVDTB)on SARS-CoV-2 (COVID-19) RNA SHALA+probe Ql (Unsp spec) Not detected Normal NOT DETECTED [facility] Comment on above: Result Comment: When diagnostic [...] for this test is supported by the Senior Accounts Payable Clerk of Health and Human Service's declaration that [...] longer be used). Performed By: #### C VDTB #### [facility] [address] [place] [address] Dr. Kelsea Guillermo INFLUENZA A AND B AGon 10-30 [facility] SEE BELOW Normal [facility] Comment on above: Result Comment: Nega tive for Flu A protein angiten. Infection due to Flu A cannot be ruled out. Flu A angiten in the sample may be below the detection limit of the test. Performed By: #### C BC #### [facility] [address] [place] [address] Dr. [facility]ill[facility] BEL[facility] Normal [facility] Comment on above: Result Comment: Nega tive for Flu B protein antigen. Infection due to Flu B cannot be ruled out. Flu B antigen in the sample may be below the detection limit of the test. Performed By: #### C BC #### [facility] [address] [place] [address] Dr. Kelsea Guillermo INFLUENZA A AG Negative Normal NEGATIVE SEE COMMENT [facility] Comment on above: Performed By: #### C BC #### [facility] [address] [place] [address] Dr. Kelsea Guillermo INFLUENZA B AG Negative Normal NEGATIVE SEE COMMENT [facility] Comment on above: Performed By: #### C BC #### [facility] [address] [place] [address] Dr. Kelsea Guillermo PROF 14(COMP METB)on 023 Albumin [Mass/Vol] 3.7 g/dL Normal 3.4-5.0 [facility] Comment on above: Performed By: #### C BC #### [facility] [address] [place] [address] Dr. Kelsea Guillermo Albumin/Globulin [Mass ratio] 0.9 {ratio} Normal [facility] Comment on above: Performed By: #### C BC #### [facility] [address] [place] [address] Dr. Kelsea Guillermo ALP [Catalytic activity/Vol] 110 U/L Normal 46-116 [facility] Comment on above: Performed By: #### C BC #### [facility] [address] [place] [address] Dr. Kelsea Guillermo ALT [Catalytic activity/Vol] 12 U/L Critically low 16-63 [facility] Comment on above: Performed By: #### C BC #### [facility] [address] [place] [address] Dr. Kelsea Guillermo Anion gap [Moles/Vol] 12.3 mmol/L Normal [facility] Comment on above: Performed By: #### C BC #### [facility] [address] [place] [address] Dr. Kelsea Guillermo AST [Catalytic activity/Vol] 18 U/L Normal 15-37 [facility] Comment on above: Performed By: #### C BC #### [facility] [address] [place] [address] Dr. Kelsea Guillermo Bilirubin [Mass/Vol] 0.3 mg/dL Normal 0.2-1.0 [facility] Comment on above: Performed By: #### C BC #### [facility] [address] [place] [address] Dr. Kelsea Guillermo Calcium [Mass/Vol] 8.4 mg/dL Critically low 8.5-10.1 [facility] Comment on above: Performed By: #### C BC #### [facility] [address] [address] [address] Kelsea Guillermo Chloride [Moles/Vol] 100 mmol/L Normal 98-107 [facility] Comment on above: Performed By: #### C BC #### [facility] [address] [place] [address] Dr. Kelsea Guillermo CO2 [Moles/Vol] 26.7 mmol/L Normal 21.0-32.0 [facility] Comment on above: Performed By: #### C BC #### [facility] [address] [place] [address] Dr. Kelsea Guillermo Creatinine [Mass/Vol] 2.01 mg/dL Critically high 0.70-1.30 [facility] Comment on above: Performed By: #### C BC #### [facility] [address] [place] [address] Dr. Kelsea Guillermo EGFR-AF NIGERIAN 39 mL/min/1.73m2 Critically low >=60 [facility] Comment on above: Performed By: #### C BC #### [facility] [address] [place] [address] Dr. Kelsea Guillermo EGFR-NON AF NIGERIAN 32 mL/min/1.73m2 Critically low >=60 [facility] Comment on above: Performed By: #### C BC #### [facility] [address] [place] [address] Dr. Kelsea Guillermo Globulin (S) [Mass/Vol] 3.9 g/dL Normal [facility] Comment on above: Performed By: #### C BC #### [facility] [address] [place] [address] Dr. Kelsea Guillermo Glucose [Mass/Vol] 108 mg/dL Critically high 74-106 [facility] Comment on above: Performed By: #### C BC #### [facility] [address] [address] [address] Kelsea Guillermo Potassium [Moles/Vol] 3.0 mmol/L Critically low 3.5-5.1 [facility] Comment on above: Performed By: #### C BC #### [facility] [address] [place] [address] Dr. Kelsea Guillermo Protein [Mass/Vol] 7.6 g/dL Normal 6.4-8.2 [facility] Comment on above: Performed By: #### C BC #### [facility] [address] [place] [address] Dr. Kelsea Guillermo Sodium [Moles/Vol] 136 mmol/L Normal 136-145 [facility] Comment on above: Performed By: #### C BC #### [facility] [address] [place] [address] Dr. Kelsea Guillermo Urea nitrogen [Mass/Vol] 24.0 mg/dL Critically high 7.0-18.0 [facility] Comment on above: Performed By: #### C BC #### [facility] [address] [place] [address] Dr. Kelsea Guillermo Urea nitrogen/Creatinine [Mass ratio] 11.9 mg/mg Normal [facility] Comment on above: Performed By: #### C BC #### [facility] [address] [place] [address] Dr. Kelsea Guillermo PROTIMEon 10-30-2022 INR Coag (PPP) [Relative time] 2.35 {INR} Normal [facility] Comment on above: Performed By: #### P T, PTT #### [facility] [address] [place] [address] Dr. Kelsea Guillermo INR GUIDELINES SEE BELOW Normal [facility] Comment on above: Result Comment: AGUILA RED INR: 2.0 - 3.0 CONDITIONS NOT LISTED BELOW 2.5 - 3.5 FOR PROSTHETIC HEART VALVE REPLACEMENT 2.5 - 3.5 RECURRENT THROMBOSIS Performed By: #### P T, PTT #### [facility] [address] [place] [address] Dr. Kelsea Guillermo PT Coag (PPP) [Time] 24.0 s Critically high 9.0-11.6 [facility] Comment on above: Performed By: #### P T, PTT #### [facility] [address] [place] [address] Dr. Kelsea Guillermo PTTon 10-30-2022 aPTT Coag (Bld) [Time] 47.8 s Critically high 22.3-36. 2 [facility] Comment on above: Performed By: #### P T, PTT #### [facility] [address] [place] [address] Dr. Kelsea Guillermo TROPONIN, HIGH SENSITIVITYon 10-30-2022 HSTROP 21.8 pg/mL Normal 4.0-76.1 [facility] Comment on above: Result Comment: CUT- OFF POINTS HAVE BEEN ESTABLISHED BASED ON THE FOURTH UNIVERSAL DEFINITIONS OF MYOCARDIAL INFARCTION. THE UPPER REFERENCE LIMIT (URL) OF TROPONIN, DEFINED THE 99TH PERCENTILE OF cTnI DISTRIBUTION IN A REFERENCE POPULATION, HAS BEEN CONFIRMED THE DECISION THRESHOLD FOR OK DIAGNOSIS. Performed By: #### C BC #### [facility] [address] [place] [address] Dr. Kelsea Guillermo XR CHEST 1 Von [...] MIKA MARI Date: 2022-10-30 20:10 Normal [facility] PROTIMEon 09-10-2022 INR Coag (PPP) [Relative time] 2.04 {INR} Normal [facility] Comment on above: Performed By: #### C BC #### [facility] [address] [place] [address] Dr. Kelsea Guillermo INR GUIDELINES SEE BELOW Normal [facility] Comment on above: Result Comment: AGUILA RED INR: 2.0 - 3.0 CONDITIONS NOT LISTED BELOW 2.5 - 3.5 FOR PROSTHETIC HEART VALVE REPLACEMENT 2.5 - 3.5 RECURRENT THROMBOSIS Performed By: #### C BC #### [facility] [address] [place], [place] [address] Dr. Kelsea Guillermo PT Coag (PPP) [Time] 21.0 s Critically high 9.0-11.6 [facility] Comment on above: Performed By: #### C BC #### [facility] [address] [place], [place] [address] Dr. Kelsea Guillermo CARDIAC ISIDRO 3-6on 2 CK [Catalytic activity/Vol] 62 U/L Normal 39-308 [facility] Comment on above: Performed By: #### C MREP #### [facility] [address] [place] [address] Dr. Kelsea Guillermo CK.MB [Mass/Vol] 1.28 ng/mL Normal <=3.60 [facility] Comment on above: Performed By: #### C MREP #### [facility] [address] [place] [address] Dr. Kelsea Guillermo HSTROP 19.5 pg/mL Normal 4.0-76.1 [facility] Comment on above: Result Comment: CUT- OFF POINTS HAVE BEEN ESTABLISHED BASED ON THE FOURTH UNIVERSAL DEFINITIONS OF MYOCARDIAL INFARCTION. THE UPPER REFERENCE LIMIT (URL) OF TROPONIN, DEFINED THE 99TH PERCENTILE OF cTnI DISTRIBUTION IN A REFERENCE POPULATION, HAS BEEN CONFIRMED THE DECISION THRESHOLD FOR OK DIAGNOSIS. Performed By: #### C MREP #### [facility] [address] [place] [id number] ABD/PELVIS WO CONon [...] SARY RIGGS Date: 2022-05-13 22:51 Normal [facility] LACTATE/LACTIC ACIDon 2021 Lactate [Moles/Vol] 0.5 mmol/L Normal 0.4-1.9 [facility] Comment on above: Performed By: #### L ACT #### [facility] [address] [place], [place] [address] Dr. Kelsea Guillermo CARDIAC ISIDRO ADMITon 022 CK [Catalytic activity/Vol] 71 U/L Normal 39-308 [facility] Comment on above: Performed By: #### C MARK VARGAS #### [facility] [address] [place], [place] [address] Dr. Kelsea Guillermo CK.MB [Mass/Vol] 1.26 ng/mL Normal <=3.60 [facility] Comment on above: Performed By: #### C MARK VARGAS #### [facility] [address] [place] [address] Dr. Kelsea Guillermo HSTROP 17.5 pg/mL Normal 4.0-76.1 [facility] Comment on above: Result Comment: CUT- OFF POINTS HAVE BEEN ESTABLISHED BASED ON THE FOURTH UNIVERSAL DEFINITIONS OF MYOCARDIAL INFARCTION. THE UPPER REFERENCE LIMIT (URL) OF TROPONIN, DEFINED THE 99TH PERCENTILE OF cTnI DISTRIBUTION IN A REFERENCE POPULATION, HAS BEEN CONFIRMED THE DECISION THRESHOLD FOR OK DIAGNOSIS. Performed By: #### C ALICIA, CMADM #### [facility] [address] [place] [address] Dr. Kelsea Guillermo ROLAND 115 ng/mL Critically high 16-96 [facility] Comment on above: Performed By: #### C LARISA VARGASDM #### [facility] [address] [place] [address] Dr. Kelsea Guillermo CBC AUTO DIFFon 05-13-2022 BASO # 0.0 103/ul Normal 0.0-0.1 [facility] Comment on above: Performed By: #### C BC #### [facility] [address] [place] [address] Dr. Kelsea Guillermo Basophils/100 WBC (Bld) 0.5 % Normal 0.2-2.0 [facility] Comment on above: Performed By: #### C BC #### [facility] [address] [place] [address] Dr. Kelsea Guillermo EO # 0.4 103/ul Normal 0.0-0.7 [facility] Comment on above: Performed By: #### C BC #### [facility] [address] [place] [address] Dr. Kelsea Guillermo Eosinophils/100 WBC (Bld) 5.3 % Normal 0.9-7.0 [facility] Comment on above: Performed By: #### C BC #### [facility] [address] [place] [address] Dr. Kelsea Guillermo Erythrocyte distribution width (RBC) [Ratio] 14.0 % Normal 11.0-15.0 [facility] Comment on above: Performed By: #### C BC #### [facility] [address] [place] [address] Dr. Kelsea Guillermo Hematocrit (Bld) [Volume fraction] 36.7 % Critically low 42.0-54.0 [facility] Comment on above: Performed By: #### C BC #### [facility] [address] [place] [address] Dr. Kelsea Guillermo Hemoglobin (Bld) [Mass/Vol] 11.8 g/dL Critically low 14.0-18.0 [facility] Comment on above: Performed By: #### C BC #### [facility] [address] [place] [address] Dr. Kelsea Guillermo IG # 0.09 10e3/ul Critically high 0.00-0.03 [facility] Comment on above: Performed By: #### C BC #### [facility] [address] [place] [address] Dr. Kelsea Guillermo IG % 1.2 % Critically high 0.0-0.5 [facility] Comment on above: Performed By: #### C BC #### [facility] [address] [place] [address] Dr. Kelsea Guillermo LYMPH # 1.6 103/ul Normal 1.2-3.8 [facility] Comment on above: Performed By: #### C BC #### [facility] [address] [place] [address] Dr. Kelsea Guillermo Lymphocytes/100 WBC (Bld) 21.9 % Normal 20.5-60.0 [facility] Comment on above: Performed By: #### C BC #### [facility] [address] [place] [address] Dr. Kelsea Guillermo MANUAL DIFF REQ NO Normal [facility] Comment on above: Performed By: #### C BC #### [facility] [address] [place] [address] Dr. Kelsea Guillermo MCH (RBC) [Entitic mass] 31.7 pg Normal 25.9-34.0 [facility] Comment on above: Performed By: #### C BC #### [facility] [address] [place], [place] [id number] Dr. Kelsea Guillermo MCHC (RBC) [Mass/Vol] 32.2 g/dL Normal 29.9-35.2 [facility] Comment on above: Performed By: #### C BC #### [facility] [address] [place] [address] Dr. Kelsea Guillermo MCV (RBC) [Entitic vol] 98.7 fL Critically high 80.0-94.0 [facility] Comment on above: Performed By: #### C BC #### [facility] [address] [place] [address] Dr. Kelsea Guillermo MONO # 0.7 103/ul Normal 0.3-0.8 [facility] Comment on above: Performed By: #### C BC #### [facility] [address] [place] [address] Dr. Kelsea Guillermo Monocytes/100 WBC (Bld) 9.4 % Normal 1.7-12.0 [facility] Comment on above: Performed By: #### C BC #### [facility] [address] [place] [address] Dr. Klesea Guillermo NEUT # 4.5 103/ul Normal 1.4-6.5 [facility] Comment on above: Performed By: #### C BC #### [facility] [address] [place] [address] Dr. Kelsea Guillermo Neutrophils/100 WBC (Bld) 61.7 % Normal 43.0-75.0 [facility] Comment on above: Performed By: #### C BC #### [facility] [address] [place] [address] Dr. Kelsea Guillermo Platelet mean volume (Bld) [Entitic vol] 9.3 fL Critically low 9.5-13.5 [facility] Comment on above: Performed By: #### C BC #### [facility] [address] [place] [address] Dr. Kelsea Guillermo PLT 207 103/ul Normal 150-450 [facility] Comment on above: Performed By: #### C BC #### [facility] [address] [place] [address] Dr. Kelsea Guillermo RBC 3.72 106/ul Critically low 4.70-6.10 [facility] Comment on above: Performed By: #### C BC #### [facility] [address] [place] [address] Dr. Kelsea Guillermo WBC 7.4 103/ul Normal 4.0-11.0 [facility] Comment on above: Performed By: #### C BC #### [facility] [address] [place] [address] Dr. Kelsea Guillermo ER URINE PROFILEon 2 Bilirubin Ql (U) Negative Normal NEGATIVE [facility] Comment on above: Performed By: #### C BC #### [facility] [address] [place] [address] Dr. Kelsea Guillermo Clarity (U) CLEAR Normal CLEAR [facility] Comment on above: Performed By: #### C BC #### [facility] [address] [place] [address] Dr. Kelsea Guillermo Color (U) LT. YELLOW Normal YELLOW [facility] Comment on above: Performed By: #### C BC #### [facility] [address] [place] [address] Dr. Kelsea CAMPBELL A micrscopic examina tion will be performed if indicated. Normal [facility] Comment on above: Performed By: #### C BC #### [facility] [address] [place] [address] Dr. Kelsea Guillermo Glucose Ql (U) Negative Normal NEGATIVE [facility] Comment on above: Performed By: #### C BC #### [facility] [address] [place] [address] Dr. Kelsea Guillermo Hemoglobin Ql (U) Negative Normal NEGATIVE [facility] Comment on above: Performed By: #### C BC #### [facility] [address] [place] [address] Dr. Kelsea Guillermo Ketones Ql (U) Negative Normal NEGATIVE [facility] Comment on above: Performed By: #### C BC #### [facility] [address] [place] [address] Dr. Kelsea Guillermo LEUKOCYTES Negative Normal NEGATIVE [facility] Comment on above: Performed By: #### C BC #### [facility] [address] [place] [address] Dr. Kelsea Guillermo Nitrite Ql (U) Negative Normal NEGATIVE [facility] Comment on above: Performed By: #### C BC #### [facility] [address] [place] [address] Dr. Kelsea Guillermo pH (U) 5.5 [pH] Normal 5-9 [facility] Comment on above: Performed By: #### C BC #### [facility] [address] [place] [address] Dr. Kelsea Guillermo Protein (U) [Mass/Vol] 30 mg/dL Abnormal NEGAT CANDACE/ TRACE [facility] Comment on above: Performed By: #### C BC #### [facility] [address] [place] [address] Dr. Kelsea Guillermo SPEC GRAVITY 1.020 Normal 1.005-<=1. 025 [facility] Comment on above: Performed By: #### C BC #### [facility] [address] [place] [address] Dr. Kelsea Guillermo UR MICRO IND NOT INDICATED Normal [facility] Comment on above: Performed By: #### C BC #### [facility] [address] [place] [address] Dr. Kelsea Guillermo Urobilinogen Qn (U) 0.2 {Jennifer'U}/dL Normal 0.2 - 1. 0 [facility] Comment on above: Performed By: #### C BC #### [facility] [address] [place] [address] Dr. Kelsea Guillermo LACTATE/LACTIC ACIDon 2021 Lactate [Moles/Vol] 0.8 mmol/L Normal 0.4-1.9 [facility] Comment on above: Performed By: #### C BC #### [facility] [address] [place] [address] Dr. Kelsea Guillermo PROF 14(COMP METB)on 022 Albumin [Mass/Vol] 3.7 g/dL Normal 3.4-5.0 [facility] Comment on above: Performed By: #### C MP, CMADM #### [facility] [address] [address] [address] Kelsea Guillermo Albumin/Globulin [Mass ratio] 0.9 {ratio} Normal [facility] Comment on above: Performed By: #### C MP, CMADM #### [facility] [address] [address] [address] Kelsea Guillermo ALP [Catalytic activity/Vol] 133 U/L Critically high 46-116 [facility] Comment on above: Performed By: #### C MP, CMADM #### [facility] [address] [address] [address] Kelsea Guillermo ALT [Catalytic activity/Vol] 18 U/L Normal 16-63 [facility] Comment on above: Performed By: #### C MP, CMADM #### [facility] [address] [address] [address] Kelsea Guillermo Anion gap [Moles/Vol] 12.5 mmol/L Normal [facility] Comment on above: Performed By: #### C MP, CMADM #### [facility] [address] [address] [address] Kelsea Guillermo AST [Catalytic activity/Vol] 14 U/L Critically low 15-37 [facility] Comment on above: Performed By: #### C MP, CMADM #### [facility] [address] [address] [address] Kelsea Guillermo Bilirubin [Mass/Vol] 0.3 mg/dL Normal 0.2-1.0 [facility] Comment on above: Performed By: #### C MP, CMADM #### [facility] [address] [address] [address] Kelsea Guillermo Calcium [Mass/Vol] 9.0 mg/dL Normal 8.5-10.1 [facility] Comment on above: Performed By: #### C MP, CMADM #### [facility] [address] [address] [address] Kelsea Guillermo Chloride [Moles/Vol] 102 mmol/L Normal 98-107 [facility] Comment on above: Performed By: #### C ALICIA, CMADM #### [facility] [address] [place] [address] Dr. Kelsea Guillermo CO2 [Moles/Vol] 27.7 mmol/L Normal 21.0-32.0 [facility] Comment on above: Performed By: #### C MP, CMADM #### [facility] [address] [place] [address] Dr. Kelsea Guillermo Creatinine [Mass/Vol] 1.83 mg/dL Critically high 0.70-1.30 [facility] Comment on above: Performed By: #### C ALICIA, CMADM #### [facility] [address] [place] [address] Dr. Kelsea Guillermo EGFR-AF NIGERIAN 44 mL/min/1.73m2 Critically low >=60 [facility] Comment on above: Performed By: #### C ALICIA, CMADM #### [facility] [address] [place] [address] Dr. Kelsea Guillermo EGFR-NON AF NIGERIAN 36 mL/min/1.73m2 Critically low >=60 [facility] Comment on above: Performed By: #### C ALICIA, CMADM #### [facility] [address] [place] [address] Dr. Kelsea Guillermo Globulin (S) [Mass/Vol] 4.2 g/dL Normal [facility] Comment on above: Performed By: #### C ALICIA, CMADM #### [facility] [address] [place] [address] Dr. Kelsea Guillermo Glucose [Mass/Vol] 101 mg/dL Normal 74-106 [facility] Comment on above: Performed By: #### C ALICIA, CMADM #### [facility] [address] [place] [address] Dr. Kelsea Guillermo Potassium [Moles/Vol] 4.2 mmol/L Normal 3.5-5.1 [facility] Comment on above: Performed By: #### C ALICIA, CMADM #### [facility] [address] [place] [address] Dr. Kelsea Guillermo Protein [Mass/Vol] 7.9 g/dL Normal 6.4-8.2 [facility] Comment on above: Performed By: #### C ALICIA, CMADM #### [facility] [address] [address] [address] Kelsea Guillermo Sodium [Moles/Vol] 138 mmol/L Normal 136-145 [facility] Comment on above: Performed By: #### C ALICIA, CMADM #### [facility] [address] [place] [address] Dr. Kelsea Guillermo Urea nitrogen [Mass/Vol] 24.0 mg/dL Critically high 7.0-18.0 [facility] Comment on above: Performed By: #### C ALICIA, CMADM #### [facility] [address] [place] [address] Dr. Kelsea Guillermo Urea nitrogen/Creatinine [Mass ratio] 13.1 mg/mg Normal [facility] Comment on above: Performed By: #### C ALICIA, CMADM #### [facility] [address] [place] [address] Dr. Kelsea Guillermo XR CHEST 1 Von [...] DEVENDRA GUTIERREZ Date: 2022-05-13 20:48 Normal [facility] HIP LEFT 1 OR 2 VWS WITH PEL VISon 02-15-2022 HIP LEFT 1 OR 2 VWS WITH PELVIS [facility] Department of Radiology [address] [place] [id number] Patient Name: NIELS MCCULLOUGH : 1945 [...] arthroplasty. Electronically signed: Mika Bolaños. Transcribed by: [email or web address], User Resident: Electronically Signed by: MIKA BOLAÑOS @ 02/18/2022 11:21 AM Normal [facility] Comment on above: Order Comment: evalu ate for Aspiration BASIC METABOLIC PANELon 04-1 Calcium [Mass/Vol] 7.7 mg/dL Low 8.6-10.3 [facility] Comment on above: Order Comment: No: D o not add to previous draw Performed By: #### 0 0071 ####[facility] [id number], [facility] Chloride [Moles/Vol] 106 mmol/L Normal 98-107 [facility] Comment on above: Order Comment: No: D o not add to previous draw Performed By: #### 0 0071 ####[facility] [place] [address], [facility] CO2 [Moles/Vol] 24 mmol/L Normal 21-31 [facility] Comment on above: Order Comment: No: D o not add to previous draw Performed By: #### 0 0071 ####[facility] [id number], [facility] Creatinine [Mass/Vol] 1.56 mg/dL High 0.70-1.30 [facility] Comment on above: Order Comment: No: D o not add to previous draw Performed By: #### 0 0071 ####[facility] [facility] [place] [address], [facility] eGFR- 53 ml/min/1.73sq m Abnormal >60 [facility] Comment on above: Order Comment: No: D o not add to previous draw Result Comment: Calc ulation may not be valid for patients over 70 years Performed By: #### 0 0071 ####[facility] [facility] [place] [address], [facility] eGFR- non- 44 ml/min/1.73sq m Abnormal >60 [facility] Comment on above: Order Comment: No: D o not add to previous draw Result Comment: Calc ulation may not be valid for patients over 70 years Performed By: #### 0 0071 ####[facility] [place] [address], [facility] Glucose [Mass/Vol] 104 mg/dL High 70-100 [facility] Comment on above: Order Comment: No: D o not add to previous draw Performed By: #### 0 0071 ####[facility] [place] [address], [facility] Potassium [Moles/Vol] 3.8 mmol/L Normal 3.5-5.1 [facility] Comment on above: Order Comment: No: D o not add to previous draw Performed By: #### 0 0071 ####[facility] [place] [address], [facility] Sodium [Moles/Vol] 137 mmol/L Normal 136-145 [facility] Comment on above: Order Comment: No: D o not add to previous draw Performed By: #### 0 0071 ####[facility] [facility] [place] [address], [facility] Urea nitrogen [Mass/Vol] 27 mg/dL High 7-25 [facility] Comment on above: Order Comment: No: D o not add to previous draw Performed By: #### 0 0071 ####[facility] [facility] CBC COMPLETE BLOOD COUNTon 0 - Erythrocyte distribution width (RBC) [Ratio] 14.5 % Normal 11.5-15.0 [facility] Comment on above: Order Comment: LEFT HIP SCREW HEAD TISSUE Performed By: #### 3 0338 #### [facility] [address] [place] [address], [facility] Hematocrit (Bld) [Volume fraction] 24.7 % Low 39.0-50.0 [facility] Comment on above: Order Comment: LEFT HIP SCREW HEAD TISSUE Performed By: #### 3 0338 #### [facility] [address] [place] [address], [facility] Hemoglobin (Bld) [Mass/Vol] 8.1 g/dL Low 13.0-17.0 [facility] Comment on above: Order Comment: LEFT HIP SCREW HEAD TISSUE Performed By: #### 3 0338 #### [facility] [address] [place] [address], [facility] MCH (RBC) [Entitic mass] 32.5 pg Normal 27.0-33.0 [facility] Comment on above: Order Comment: LEFT HIP SCREW HEAD TISSUE Performed By: #### 3 0338 #### [facility] [address] [place] [address], [facility] MCHC (RBC) [Mass/Vol] 32.8 g/dL Normal 32.0-35.0 [facility] Comment on above: Order Comment: LEFT HIP SCREW HEAD TISSUE Performed By: #### 3 0338 #### [facility] [address] [place] [address], [facility] MCV (RBC) [Entitic vol] 99.2 fL High 82.0-98.0 [facility] Comment on above: Order Comment: LEFT HIP SCREW HEAD TISSUE Performed By: #### 3 0338 #### [facility] [address] [place] [address], [facility] Nucleated RBC/100 WBC (Bld) [Ratio] 0 % Normal 0-0 [facility] Comment on above: Order Comment: LEFT HIP SCREW HEAD TISSUE Performed By: #### 3 0338 #### [facility] [address] [place] [address], [facility] PLAT CNT 177 10*3/uL Normal 150-400 [facility] Comment on above: Order Comment: LEFT HIP SCREW HEAD TISSUE Performed By: #### 3 0338 #### [facility] [address] [place] [address], [facility] RBC (Bld) [#/Vol] 2.49 10*6/uL Low 4.20-5.70 [facility] Comment on above: Order Comment: LEFT HIP SCREW HEAD TISSUE Performed By: #### 3 0338 #### [facility] [address] WBC (Bld) [#/Vol] 10.19 10*3/uL Normal 4.00-10.60 [facility] Comment on above: Order Comment: LEFT HIP SCREW HEAD TISSUE Performed By: #### 3 0338 #### [facility] [address] PROTHROMBIN TIMEon 2 INR Coag (PPP) [Relative time] 1.25 {INR} High 0.91-1.16 [facility] Comment on above: Order Comment: LEFT [...] 1995;108:[id number]. Performed By: #### 3 0318 #### [facility] [address] [place] [address], [facility] PT Coag (PPP) [Time] 15.7 s High 12.3-14.8 [facility] Comment on above: Order Comment: LEFT HIP FLUID #2 Result Comment: ALL RESULTS MUST BE INTERPRETED WITH RESPECT TO BLOOD DRAWING ARTIFACT OR DILUTION ERROR OF ANTICOAGULANT AT THE TIME OF SAMPLING. Performed By: #### 3 0318 #### [facility] [address] [place] [address], [facility] BASIC METABOLIC PANELon 04-1 Calcium [Mass/Vol] 7.9 mg/dL Low 8.6-10.3 [facility] Comment on above: Order Comment: evalu ate for Aspiration Performed By: #### 0 0071 ####[facility] [place] [address], [place] Chloride [Moles/Vol] 104 mmol/L Normal 98-107 [facility] Comment on above: Order Comment: evalu ate for Aspiration Performed By: #### 0 0071 ####[facility] [place] [address], [place] CO2 [Moles/Vol] 27 mmol/L Normal 21-31 [facility] Comment on above: Order Comment: evalu ate for Aspiration Performed By: #### 0 0071 ####[facility] [place] [address], [facility] Creatinine [Mass/Vol] 1.78 mg/dL High 0.70-1.30 [facility] Comment on above: Order Comment: evalu ate for Aspiration Performed By: #### 0 0071 ####[facility] [facility] [place] [address], [facility] eGFR- 45 ml/min/1.73sq m Abnormal >60 [facility] Comment on above: Order Comment: evalu ate for Aspiration Result Comment: Calc ulation may not be valid for patients over 70 years Performed By: #### 0 0071 ####[facility] [place] [address], [facility] eGFR- non- 37 ml/min/1.73sq m Abnormal >60 [facility] Comment on above: Order Comment: evalu ate for Aspiration Result Comment: Calc ulation may not be valid for patients over 70 years Performed By: #### 0 0071 ####[facility] [place] [address], [place] Glucose [Mass/Vol] 115 mg/dL High 70-100 [facility] Comment on above: Order Comment: evalu ate for Aspiration Performed By: #### 0 0071 ####[facility] [facility] [place] [address], [facility] Potassium [Moles/Vol] 3.6 mmol/L Normal 3.5-5.1 [facility] Comment on above: Order Comment: evalu ate for Aspiration Performed By: #### 0 0071 ####[facility] [facility] [place] [address], [facility] Sodium [Moles/Vol] 136 mmol/L Normal 136-145 [facility] Comment on above: Order Comment: evalu ate for Aspiration Performed By: #### 0 0071 ####[facility] [facility].[address] Urea nitrogen [Mass/Vol] 35 mg/dL High 7-25 [facility] Comment on above: Order Comment: evalu ate for Aspiration Performed By: #### 0 0071 ####[facility] [facility] [place] [address], [facility] CBC W/DIFFon 02-06-2022 ABS IMM GRANS 0.1 10*3/uL Normal 0.0-0.2 [facility] Comment on above: Order Comment: No: D o not add to previous draw Performed By: #### 5 0103 #### [facility] [address] [facility] [place] [address], [facility] ABS NEUTROPHILS 9.3 10*3/uL High 1.6-7.6 [facility] Comment on above: Order Comment: No: D o not add to previous draw Performed By: #### 5 0103 #### [facility] [address] [facility] [place] [address], [facility] Basophils (Bld) [#/Vol] 0.0 10*3/uL Normal 0.0-0.2 [facility] Comment on above: Order Comment: No: D o not add to previous draw Performed By: #### 5 0103 #### [facility] [address] [place] [address], [facility] Basophils/100 WBC (Bld) 0.3 % Normal 0.0-1.0 [facility] Comment on above: Order Comment: No: D o not add to previous draw Performed By: #### 5 0103 #### [facility] [address] [place] [id number], [facility] Eosinophils (Bld) [#/Vol] 0.1 10*3/uL Normal 0.0-0.5 [facility] Comment on above: Order Comment: No: D o not add to previous draw Performed By: #### 5 0103 #### [facility] [address] [place] [address], [facility] Eosinophils/100 WBC (Bld) 0.4 % Normal 0.0-6.0 [facility] Comment on above: Order Comment: No: D o not add to previous draw Performed By: #### 5 0103 #### [facility] [address] [facility] [address], [facility] Erythrocyte distribution width (RBC) [Ratio] 14.6 % Normal 11.5-15.0 [facility] Comment on above: Order Comment: No: D o not add to previous draw Performed By: #### 5 0103 #### [facility] [address] [place] [id number], [facility] Hematocrit (Bld) [Volume fraction] 25.3 % Low 39.0-50.0 [facility] Comment on above: Order Comment: No: D o not add to previous draw Performed By: #### 5 0103 #### [facility] [address] [place] [id number], [facility] Hemoglobin (Bld) [Mass/Vol] 8.3 g/dL Low 13.0-17.0 [facility] Comment on above: Order Comment: No: D o not add to previous draw Performed By: #### 5 0103 #### [facility] [address] [place] [address], [facility] IMMATURE GRANS 0.6 % Normal 0.0-1.0 [facility] Comment on above: Order Comment: No: D o not add to previous draw Performed By: #### 5 0103 #### [facility] [address] [place] [address], [facility] Lymphocytes (Bld) [#/Vol] 1.3 10*3/uL Normal 1.2-4.0 [facility] Comment on above: Order Comment: No: D o not add to previous draw Performed By: #### 5 0103 #### [facility] [address] [place] [address], [facility] Lymphocytes/100 WBC (Bld) 10.8 % Low 20.0-45.0 [facility] Comment on above: Order Comment: No: D o not add to previous draw Performed By: #### 5 0103 #### [facility] [address] [facility] [place] [address], [facility] MCH (RBC) [Entitic mass] 31.8 pg Normal 27.0-33.0 [facility] Comment on above: Order Comment: No: D o not add to previous draw Performed By: #### 5 0103 #### [facility] [address] [facility] [place] [address], [facility] MCHC (RBC) [Mass/Vol] 32.8 g/dL Normal 32.0-35.0 [facility] Comment on above: Order Comment: No: D o not add to previous draw Performed By: #### 5 0103 #### [facility] [address] [place] [address], [facility] MCV (RBC) [Entitic vol] 96.9 fL Normal 82.0-98.0 [facility] Comment on above: Order Comment: No: D o not add to previous draw Performed By: #### 5 0103 #### [facility] [address] [place] [address], [facility] Monocytes (Bld) [#/Vol] 1.1 10*3/uL High 0.1-1.0 [facility] Comment on above: Order Comment: No: D o not add to previous draw Performed By: #### 5 0103 #### [facility] [address] [place] [address], [facility] MONOS 9.1 % Normal 5.0-12.0 [facility] Comment on above: Order Comment: No: D o not add to previous draw Performed By: #### 5 0103 #### [facility] [address] [place] [address], [facility] Neutrophils/100 WBC (Bld) 78.8 % High 40.0-72.0 [facility] Comment on above: Order Comment: No: D o not add to previous draw Performed By: #### 5 0103 #### [facility] [address] [place] [id number], [facility] Nucleated RBC/100 WBC (Bld) [Ratio] 0 % Normal 0-0 [facility] Comment on above: Order Comment: No: D o not add to previous draw Performed By: #### 5 0103 #### [facility] [address] [place] [id number], [facility] PLAT CNT 182 10*3/uL Normal 150-400 [facility] Comment on above: Order Comment: No: D o not add to previous draw Performed By: #### 5 0103 #### [facility] [address] [place] [id number], [facility] RBC (Bld) [#/Vol] 2.61 10*6/uL Low 4.20-5.70 [facility] Comment on above: Order Comment: No: D o not add to previous draw Performed By: #### 5 0103 #### [facility] [address] [facility]. [address] WBC (Bld) [#/Vol] 11.78 10*3/uL High 4.00-10.60 [facility] Comment on above: Order Comment: No: D o not add to previous draw Performed By: #### 5 0103 #### [facility] [address] PROTHROMBIN TIMEon 2 INR Coag (PPP) [Relative time] 1.18 {INR} High 0.91-1.16 [facility] Comment on above: Order Comment: No: [...] CHEST 1995;108:231S-246S. Performed By: #### 5 6101 ####[facility] PT Coag (PPP) [Time] 15.1 s High 12.3-14.8 [facility] Comment on above: Order Comment: No: D o not add to previous draw Result Comment: ALL RESULTS MUST BE INTERPRETED WITH RESPECT TO BLOOD DRAWING ARTIFACT OR DILUTION ERROR OF ANTICOAGULANT AT THE TIME OF SAMPLING. Performed By: #### 5 6101 ####[facility] [place] [address], [place] UA,MICROSCOPIC REQUIREDon Appearance (U) SL CLOUDY Abnormal CLEAR [facility] Comment on above: Order Comment: No: D o not add to previous draw Performed By: #### 9 0150 #### [facility] [address] [place] [address], [place] Bilirubin Ql (U) Negative Normal NEGATIVE [facility] Comment on above: Order Comment: No: D o not add to previous draw Performed By: #### 9 0150 #### [facility] [address] [place] [address], [place] Color (U) YELLOW Normal YELLOW [facility] Comment on above: Order Comment: No: D o not add to previous draw Performed By: #### 9 0150 #### [facility] [address] [place] [address], [place] EPIS NONE SEEN Normal FEW,OCC,NO NE SEEN [facility] Comment on above: Order Comment: No: D o not add to previous draw Performed By: #### 9 0150 #### [facility] [address] [place] [address], [place] Glucose Ql (U) Negative Normal NEGATIVE [facility] Comment on above: Order Comment: No: D o not add to previous draw Performed By: #### 9 0150 #### [facility] [address] [place] [address], [place] Hemoglobin Ql (U) SMALL Abnormal NEGATIVE [facility] Comment on above: Order Comment: No: D o not add to previous draw Performed By: #### 9 0150 #### [facility] [address] [place] [address], [place] KETONE Negative Normal NEGATIVE [facility] Comment on above: Order Comment: No: D o not add to previous draw Performed By: #### 9 0150 #### [facility] [address] [place] [address], [facility] LEUK JALYN Negative Normal NEGATIVE [facility] Comment on above: Order Comment: No: D o not add to previous draw Performed By: #### 9 0150 #### [facility] [address] [place] [address], [facility] Nitrite Ql (U) Negative Normal NEGATIVE [facility] Comment on above: Order Comment: No: D o not add to previous draw Performed By: #### 9 0150 #### [facility] [address] [place] [address], [facility] pH (U) 5.0 [pH] Normal 5.0-8.0 [facility] Comment on above: Order Comment: No: D o not add to previous draw Performed By: #### 9 0150 #### [facility] [address] [place] [address], [facility] Protein Ql (U) 30 mg/dL Abnormal NEGATIVE [facility] Comment on above: Order Comment: No: D o not add to previous draw Performed By: #### 9 0150 #### [facility] [address] [facility] [place] [address], [facility] RBC 3-5 Abnormal NONE SEEN [facility] Comment on above: Order Comment: No: D o not add to previous draw Performed By: #### 9 0150 #### [facility] [address] [place] [address], [facility] SPEC GRAV 1.016 Normal 1.015-1.02 0 [facility] Comment on above: Order Comment: No: D o not add to previous draw Performed By: #### 9 0150 #### [facility] [address] [place] [address], [facility] WBC UA 0-2 Abnormal NONE SEEN [facility] Comment on above: Order Comment: No: D o not add to previous draw Performed By: #### 9 0150 #### [facility] [address] [place] [address], [facility] APTTon 02-05-2022 aPTT Coag (Bld) [Time] 34.1 s Normal 25.0-35.0 [facility] Comment on above: Order Comment: if [...] THIS PURPOSE. Performed By: #### 5 7307, 28092 ####[facility]3000 [facility].[address] BASIC METABOLIC PANELon 01-25 Calcium [Mass/Vol] 8.2 mg/dL Low 8.6-10.3 [facility] Comment on above: Order Comment: evalu ate for Aspiration Performed By: #### 0 0071 ####[facility] [facility] [place] [address], [facility] Chloride [Moles/Vol] 108 mmol/L High 98-107 [facility] Comment on above: Order Comment: evalu ate for Aspiration Performed By: #### 0 0071 ####[facility] [facility] [place] [address], [facility] CO2 [Moles/Vol] 22 mmol/L Normal 21-31 [facility] Comment on above: Order Comment: evalu ate for Aspiration Performed By: #### 0 0071 ####[facility] [facility] [place] [address], [facility] Creatinine [Mass/Vol] 1.64 mg/dL High 0.70-1.30 [facility] Comment on above: Order Comment: evalu ate for Aspiration Performed By: #### 0 0071 ####[facility] [place] [address], [facility] eGFR- 50 ml/min/1.73sq m Abnormal >60 [facility] Comment on above: Order Comment: evalu ate for Aspiration Result Comment: Calc ulation may not be valid for patients over 70 years Performed By: #### 0 0071 ####[facility] [place] [address], [facility] eGFR- non- 41 ml/min/1.73sq m Abnormal >60 [facility] Comment on above: Order Comment: evalu ate for Aspiration Result Comment: Calc ulation may not be valid for patients over 70 years Performed By: #### 0 0071 ####[facility] [place] [address], [facility] Glucose [Mass/Vol] 145 mg/dL High 70-100 [facility] Comment on above: Order Comment: evalu ate for Aspiration Performed By: #### 0 0071 ####[facility] [place] [address], [place] Potassium [Moles/Vol] 3.9 mmol/L Normal 3.5-5.1 [facility] Comment on above: Order Comment: evalu ate for Aspiration Performed By: #### 0 0071 ####[facility] [place] [address], [place] Sodium [Moles/Vol] 137 mmol/L Normal 136-145 [facility] Comment on above: Order Comment: evalu ate for Aspiration Performed By: #### 0 0071 ####[facility] [place] [address], [place] Urea nitrogen [Mass/Vol] 27 mg/dL High 7-25 [facility] Comment on above: Order Comment: evalu ate for Aspiration Performed By: #### 0 0071 ####[facility] [place] [address], [facility] Operative Reporton 2 Operative Report MR#: [id number] [facility] Pt. Name: Niels Mccullough Jr Room #: [id number] Discharge Date: Birthdate: 1945 OPERATIVE REPORT DATE OF SURGERY: 02/04/2022 SURGEON: Vineet Gomez M.D. PRIMARY CARE PHYSICIAN: Thee Mcguire D.O. ASSISTANTS: 1. Paulino Britton M.D., resident orthopedic surgery. 2. first Kristen assist. ANESTHESIA: By Dr. Nayak and Dr. Salazar. [...] f (more content not included)... Normal [facility] PROTHROMBIN TIMEon 2 INR Coag (PPP) [Relative time] 1.27 {INR} High 0.91-1.16 [facility] Comment on above: Order Comment: if [...] CHEST 1995;108:231S-246S. Performed By: #### 5 7307, 69989 ####[facility] PT Coag (PPP) [Time] 15.9 s High 12.3-14.8 [facility] Comment on above: Order Comment: if no t already doneNo: Do not add to previous draw Result Comment: ALL RESULTS MUST BE INTERPRETED WITH RESPECT TO BLOOD DRAWING ARTIFACT OR DILUTION ERROR OF ANTICOAGULANT AT THE TIME OF SAMPLING. Performed By: #### 5 7307, 79853 ####[facility] *ANAEROBIC CULTUREon 04-11-2 022 *ANAEROBIC CULTURE Clinical Report: (D) Specimen/Source: TISSUE/INTRAOP SPEC Collected: 02/04/2022 17:25 Status: Final Last Updated: 02/09/2022 07:31 (1) LEFT HIP CULT RES (Final) No Anaerobes Isolated 5 Days Normal [facility] Comment on above: Order Comment: No: D o not add to previous draw Performed By: #### 9 0150 #### [facility] [address] [place] [address], [facility] *ANAEROBIC CULTURE Clinical Report: (D) Specimen/Source: FLUID/INTRAOP SPEC Collected: 02/04/2022 17:26 Status: Final Last Updated: 02/09/2022 07:31 (1) LEFT HIP FLUID #1 CULT RES (Final) No Anaerobes Isolated 5 Days Normal [facility] Comment on above: Order Comment: LEFT HIP FLUID #2 Performed By: #### 3 0318 #### [facility] [address] [place] [address], [facility] *ANAEROBIC CULTURE Clinical Report: (D) Specimen/Source: TISSUE/INTRAOP SPEC Collected: 02/04/2022 17:28 Status: Final Last Updated: 02/09/2022 07:31 (1) LEFT HIP NAIL HEAD CULT RES (Final) No Anaerobes Isolated 5 Days Normal [facility] Comment on above: Order Comment: LEFT HIP SCREW HEAD TISSUE Performed By: #### 3 0338 #### [facility] [address] [place] [address], [facility] *ANAEROBIC CULTURE Clinical Report: (D) Specimen/Source: FLUID/INTRAOP SPEC Collected: 02/04/2022 17:28 Status: Final Last Updated: 02/09/2022 07:31 (1) LEFT HIP FLUID #2 CULT RES (Final) No Anaerobes Isolated 5 Days Normal [facility] Comment on above: Order Comment: LEFT HIP SCREW HEAD TISSUE Performed By: #### 3 0338 #### [facility] [address] [facility] [address], [facility] *ANAEROBIC CULTURE Clinical Report: (D) Specimen/Source: TISSUE/INTRAOP SPEC Collected: 02/04/2022 17:29 Status: Final Last Updated: 02/09/2022 07:31 (1) LEFT HIP SCREW HEAD TISSUE CULT RES (Final) No Anaerobes Isolated 5 Days Normal [facility] Comment on above: Order Comment: No: D o not add to previous draw Performed By: #### 9 0150 #### [facility] [address] [place] [address], [facility] *BODY FLUID CULTUREon 2021 *BODY FLUID CULTURE Clinical Report: (D) Specimen/Source: FLUID/INTRAOP SPEC Collected: 02/04/2022 17:26 Status: Final Last Updated: 02/09/2022 06:34 (1) LEFT HIP FLUID #1 GRAM (Final) Moderate Polys No Bacteria Seen CULT RES (Final) No Growth Day 5 Normal [facility] Comment on above: Order Comment: LEFT HIP SCREW HEAD TISSUE Performed By: #### 3 0338 #### [facility] [address] *BODY FLUID CULTURE Clinical Report: (D) Specimen/Source: FLUID/INTRAOP SPEC Collected: 02/04/2022 17:28 Status: Final Last Updated: 02/09/2022 06:34 (1) LEFT HIP FLUID #2 GRAM (Final) Moderate Polys No Bacteria Seen CULT RES (Final) No Growth Day 5 Normal [facility] Comment on above: Order Comment: LEFT HIP FLUID #2 Performed By: #### 3 0318 #### [facility] [address] [place] [address], [facility] *FUNGAL CULTUREon 02-04-2022 *FUNGAL CULTURE Clinical Report: (D) Specimen/Source: TISSUE/INTRAOP SPEC Collected: 02/04/2022 17:25 Status: Final Last Updated: 04/10/2022 08:13 (1) LEFT HIP FS (Final) No Yeast or Fungal Elements Seen CULT RES (Final) Culture negative for fungus Normal [facility] Comment on above: Order Comment: LEFT HIP Performed By: #### 3 0323 #### [facility] [address] *FUNGAL CULTURE Clinical Report: (D) Specimen/Source: FLUID/INTRAOP SPEC Collected: 02/04/2022 17:26 Status: Final Last Updated: 04/10/2022 08:13 (1) LEFT HIP FLUID #1 FS (Final) No Yeast or Fungal Elements Seen CULT RES (Final) Culture negative for fungus Normal [facility] Comment on above: Order Comment: LEFT HIP FLUID #2 Performed By: #### 3 0318 #### [facility] [address] [place] [address], [facility] *FUNGAL CULTURE Clinical Report: (D) Specimen/Source: FLUID/INTRAOP SPEC Collected: 02/04/2022 17:28 Status: Final Last Updated: 04/10/2022 08:13 (1) LEFT HIP FLUID #2 FS (Final) No Yeast or Fungal Elements Seen CULT RES (Final) Culture negative for fungus Normal [facility] Comment on above: Order Comment: LEFT HIP FLUID #2 Performed By: #### 3 0323 #### [facility] [address] [place] [address], [facility] *FUNGAL CULTURE Clinical Report: (D) Specimen/Source: TISSUE/INTRAOP SPEC Collected: 02/04/2022 17:28 Status: Final Last Updated: 04/10/2022 08:13 (1) LEFT HIP NAIL HEAD FS (Final) No Yeast or Fungal Elements Seen CULT RES (Final) Culture negative for fungus Normal [facility] Comment on above: Order Comment: LEFT HIP SCREW HEAD TISSUE Performed By: #### 3 0338 #### [facility] [address] [place] [address], [facility] *FUNGAL CULTURE Clinical Report: (D) Specimen/Source: TISSUE/INTRAOP SPEC Collected: 02/04/2022 17:29 Status: Final Last Updated: 04/10/2022 08:13 (1) LEFT HIP SCREW HEAD TISSUE FS (Final) No Yeast or Fungal Elements Seen CULT RES (Final) Culture negative for fungus Normal [facility] Comment on above: Order Comment: LEFT HIP SCREW HEAD TISSUE Performed By: #### 3 0338 #### [facility] [address] [place], [place] [address] [place] [address] *TISSUE CULTUREon 02-04-2022 *TISSUE CULTURE Clinical Report: (D) Specimen/Source: TISSUE/INTRAOP SPEC Collected: 02/04/2022 17:25 Status: Final Last Updated: 02/09/2022 06:33 (1) LEFT HIP GRAM (Final) Many Polys No Bacteria Seen CULT RES (Final) No Growth Day 5 Normal [facility] Comment on above: Order Comment: LEFT HIP SCREW HEAD TISSUE Performed By: #### 3 0338 #### [facility] [address] [place], [place] [address] [place] [address] *TISSUE CULTURE Clinical Report: (D) Specimen/Source: TISSUE/INTRAOP SPEC Collected: 02/04/2022 17:28 Status: Final Last Updated: 02/09/2022 06:33 (1) LEFT HIP NAIL HEAD GRAM (Final) Moderate Polys No Bacteria Seen CULT RES (Final) No Growth Day 5 Normal [facility] Comment on above: Order Comment: LEFT HIP FLUID #2 Performed By: #### 3 0318 #### [facility] [address] [place] [address], [facility] *TISSUE CULTURE Clinical Report: (D) Specimen/Source: TISSUE/INTRAOP SPEC Collected: 02/04/2022 17:29 Status: Final Last Updated: 02/09/2022 06:34 (1) LEFT HIP SCREW HEAD TISSUE GRAM (Final) Moderate Polys No Bacteria Seen CULT RES (Final) No Growth Day 5 Normal [facility] Comment on above: Order Comment: LEFT HIP SCREW HEAD TISSUE Performed By: #### 3 0338 #### [facility] [address] [place] [address], [facility] APTTon 02-04-2022 aPTT Coag (Bld) [Time] 43.4 s High 25.0-35.0 [facility] Comment on above: Order Comment: No: [...] THIS PURPOSE. Performed By: #### 5 7307, 07363 ####[facility] [place] [address], [facility] ARTERIAL BLOOD GAS W/COOXon 02-04-2022 BASE EXCESS -2 mmol/L Normal -2-3 [facility] Comment on above: Performed By: #### 3 0318 #### [facility] [address] [place] [address], [place] COHB 1.5 % Normal 0.0-1.5 [facility] Comment on above: Performed By: #### 3 8 #### [facility] [address] [place] [address], [facility] DELIVERY SYSTEMS OR VENT Normal [facility] Comment on above: Performed By: #### 3 0318 #### [facility] [address] [place] [address], [place] HCO3 (Bld) [Moles/Vol] 22 mmol/L Normal 21-28 [facility] Comment on above: Performed By: #### 3 8 #### [facility] [address] [place] [address], [place] METHB 0.6 % Normal 0.0-1.5 [facility] Comment on above: Performed By: #### 3 0318 #### [facility] [address] [place] [address], [place] MODALITY OR VENT Normal [facility] Comment on above: Performed By: #### 3 0318 #### [facility] [address] [place] [address], [place] Oxygen (Bld) [Partial pressure] 203 mm[Hg] Critically high 83-108 [facility] Comment on above: Performed By: #### 3 8 #### [facility] [address] [place] [address], [place] Oxygen saturation in Blood 97.8 % High 94.0-97.0 [facility] Comment on above: Performed By: #### 3 0318 #### [facility] [address] [place] [address], [place] PCO2 35 mmHg Normal 35-45 [facility] Comment on above: Performed By: #### 3 0318 #### [facility] [address] [place] [address], [place] pH (Bld) 7.41 [pH] Normal 7.35-7.45 [facility] Comment on above: Performed By: #### 3 0318 #### [facility] [address] [place] [address], [place] THB 10.0 g/dL Low 12.0-16.3 [facility] Comment on above: Performed By: #### 3 0318 #### [facility] [address] [place] [address], [place] BASIC METABOLIC PANELon 01-25 Calcium [Mass/Vol] 8.6 mg/dL Normal 8.6-10.3 [facility] Comment on above: Order Comment: evalu ate for Aspiration Performed By: #### 1 69, 01570, 94388 ####[facility] [place] [address], [place] Chloride [Moles/Vol] 106 mmol/L Normal 98-107 [facility] Comment on above: Order Comment: evalu ate for Aspiration Performed By: #### 1 69, 66719, 11398 ####[facility] [place] [address], [place] CO2 [Moles/Vol] 25 mmol/L Normal 21-31 [facility] Comment on above: Order Comment: evalu ate for Aspiration Performed By: #### 1 69, , 74083 ####[facility] [place] [address], [facility] Creatinine [Mass/Vol] 1.52 mg/dL High 0.70-1.30 [facility] Comment on above: Order Comment: evalu ate for Aspiration Performed By: #### 1 0, 13341, 19311 ####[facility] [place] [address], [facility] eGFR- 54 ml/min/1.73sq m Abnormal >60 [facility] Comment on above: Order Comment: evalu ate for Aspiration Result Comment: Calc ulation may not be valid for patients over 70 years Performed By: #### 1 0, 56436, 01415 ####[facility] [place] [address], [facility] eGFR- non- 45 ml/min/1.73sq m Abnormal >60 [facility] Comment on above: Order Comment: evalu ate for Aspiration Result Comment: Calc ulation may not be valid for patients over 70 years Performed By: #### 1 0, 02151, 30408 ####[facility] [place] [address], [facility] Glucose [Mass/Vol] 98 mg/dL Normal 70-100 [facility] Comment on above: Order Comment: evalu ate for Aspiration Performed By: #### 1 0, 19411, 92868 ####[facility] [place] [address], [place] Potassium [Moles/Vol] 3.7 mmol/L Normal 3.5-5.1 [facility] Comment on above: Order Comment: evalu ate for Aspiration Performed By: #### 1 0070, 41937, 24091 ####[facility] [place] [address], [place] Sodium [Moles/Vol] 139 mmol/L Normal 136-145 [facility] Comment on above: Order Comment: evalu ate for Aspiration Performed By: #### 1 0070, 74287, 30473 ####[facility] Urea nitrogen [Mass/Vol] 25 mg/dL Normal 7-25 [facility] Comment on above: Order Comment: evalu ate for Aspiration Performed By: #### 1 0070, 89959, 69888 ####[facility] CALCIUM IONIZED CBGLon 02-04 IONIZED CALCIUM 1.11 mmol/L Low 1.13-1.32 [facility] Comment on above: Performed By: #### 3 0318 #### [facility] [address] CBC COMPLETE BLOOD COUNTon 0 02-04-2022 Erythrocyte distribution width (RBC) [Ratio] 14.4 % Normal 11.5-15.0 [facility] Comment on above: Order Comment: LEFT HIP SCREW HEAD TISSUE Performed By: #### 3 0338 #### [facility] [address] [facility] [place] [address], [facility] Hematocrit (Bld) [Volume fraction] 34.1 % Low 39.0-50.0 [facility] Comment on above: Order Comment: LEFT HIP SCREW HEAD TISSUE Performed By: #### 3 0338 #### [facility] [address] [place] [address], [facility] Hemoglobin (Bld) [Mass/Vol] 11.3 g/dL Low 13.0-17.0 [facility] Comment on above: Order Comment: LEFT HIP SCREW HEAD TISSUE Performed By: #### 3 0338 #### [facility] [address] [place] [address], [facility] MCH (RBC) [Entitic mass] 32.1 pg Normal 27.0-33.0 [facility] Comment on above: Order Comment: LEFT HIP SCREW HEAD TISSUE Performed By: #### 3 0338 #### [facility] [address] [place] [id number], [facility] MCHC (RBC) [Mass/Vol] 33.1 g/dL Normal 32.0-35.0 [facility] Comment on above: Order Comment: LEFT HIP SCREW HEAD TISSUE Performed By: #### 3 0338 #### [facility] [address] [place] [address], [facility] MCV (RBC) [Entitic vol] 96.9 fL Normal 82.0-98.0 [facility] Comment on above: Order Comment: LEFT HIP SCREW HEAD TISSUE Performed By: #### 3 0338 #### [facility] [address] [facility] [place] [address], [facility] Nucleated RBC/100 WBC (Bld) [Ratio] 0 % Normal 0-0 [facility] Comment on above: Order Comment: LEFT HIP SCREW HEAD TISSUE Performed By: #### 3 0338 #### [facility] [address] [place] [address], [facility] PLAT CNT 213 10*3/uL Normal 150-400 [facility] Comment on above: Order Comment: LEFT HIP SCREW HEAD TISSUE Performed By: #### 3 0338 #### [facility] [address] [facility] [place] [id number], [facility] RBC (Bld) [#/Vol] 3.52 10*6/uL Low 4.20-5.70 [facility] Comment on above: Order Comment: LEFT HIP SCREW HEAD TISSUE Performed By: #### 3 0338 #### [facility] [address] [place] [id number], [facility] WBC (Bld) [#/Vol] 8.15 10*3/uL Normal 4.00-10.60 [facility] Comment on above: Order Comment: LEFT HIP SCREW HEAD TISSUE Performed By: #### 3 0338 #### [facility] [address] [place] [id number], [facility] MAGNESIUM BLOODon 02-04-2022 Magnesium [Mass/Vol] 2.2 mg/dL Normal 1.9-2.7 [facility] Comment on above: Order Comment: evalu ate for Aspiration Performed By: #### 1 0070, 91948, 39672 ####[facility] [facility] [place] [address], [facility] PHOSPHORUS BLOODon 2 Phosphate [Mass/Vol] 3.0 mg/dL Normal 2.5-5.0 [facility] Comment on above: Order Comment: No: D o not add to previous draw Performed By: #### 1 0070, 49318, 87877 ####[facility]3000 [facility].[address] POC GLUCOSE LABon 02-04-2022 Glucose [Mass/Vol] 99 mg/dL Normal 70-100 [facility] Comment on above: Performed By: #### 8 5499 ####[facility]3000 [facility].[address] POC SARS COV2 IDon 2 SARS-CoV-2 (COVID-19) RNA SHALA+probe Ql (Unsp spec) Negative Normal NEGATIVE [facility] Comment on above: Result Comment: ID [...] Accreditation. Performed By: #### 3 1921 #### [place], [place] [address], [facility] PORTABLE HIP LEFT 1 OR 2 VWS WITH PELVISon 02-04-2022 PORTABLE HIP LEFT 1 OR 2 VWS WITH PELVIS [facility] Department of Radiology [address] [place] [phone] Patient Name: NIELS MCCULLOUGH : 1945 Sex: M Age: Race: White Pt. Location: [address] [place] [address] Patient Status: I Ordered Date: 02/04/2022 8:00:00 [...] fracture Electronically signed: Nohemi Graves. Transcribed by: [email or web address], User Resident: Electronically Signed by: NOHEMI GRAVES @ 02/04/2022 09:32 PM Normal [facility] Comment on above: Order Comment: evalu ate for Aspiration POTASSIUM WHOLE BLOOD CBGLon 02-04-2022 Potassium [Moles/Vol] 3.5 mmol/L Normal 3.4-5.2 [facility] Comment on above: Performed By: #### 3 0318 #### [facility] 3000 [facility]. [address] PROTHROMBIN TIMEon 2 INR Coag (PPP) [Relative time] 2.90 {INR} High 0.91-1.16 [facility] Comment on above: Order Comment: 12 [...] RANGE. CHEST 1995;108:231S-246S. Performed By: #### 5 6100 ####[facility] [place] [address], [facility] INR Coag (PPP) [Relative time] 1.70 {INR} High 0.91-1.16 [facility] Comment on above: Order Comment: No: [...] CHEST 1995;108:231S-246S. Performed By: #### 5 7307, [address]37[address] ####[facility] [place] [address], [facility] PT Coag (PPP) [Time] 30.1 s High 12.3-14.8 [facility] Comment on above: Order Comment: 12 ho urs post vitamin K administration/pre-procedure warfarin reversalNo: Do not add to previous draw Result Comment: ALL RESULTS MUST BE INTERPRETED WITH RESPECT TO BLOOD DRAWING ARTIFACT OR DILUTION ERROR OF ANTICOAGULANT AT THE TIME OF SAMPLING. Performed By: #### 5 6101 ####[facility] [facility] [place] [address], [facility] PT Coag (PPP) [Time] 20.0 s High 12.3-14.8 [facility] Comment on above: Order Comment: No: D o not add to previous draw Result Comment: ALL RESULTS MUST BE INTERPRETED WITH RESPECT TO BLOOD DRAWING ARTIFACT OR DILUTION ERROR OF ANTICOAGULANT AT THE TIME OF SAMPLING. Performed By: #### 5 7307, [id number] ####[facility] [facility] [place] [address], [facility] RBC'S 1 UNITon 02-04-2022 CROSSMATCH INTERP 1 COMP Normal [facility] Comment on above: Performed By: #### 8 6001 ####[facility] [facility].[address] PRODUCT CODE 1 E0336 Normal [facility] Comment on above: Performed By: #### 8 6001 ####[facility]3000 [facility].[address] PRODUCT STATUS 1 RE Normal [facility] Comment on above: Result Comment: Resu lt changed by IF on 02/08/2022 07:21. The previous value was XM. Performed By: #### 8 6001 ####[facility] [facility].[address] UNIT ABO 1 O Normal [facility] Comment on above: Performed By: #### 8 6001 ####[facility] [facility].[address] UNIT ID 1 [id number] Normal [facility] Comment on above: Performed By: #### 8 6001 ####[facility] [facility].[address] UNIT RH 1 Negative Normal [facility] Comment on above: Performed By: #### 8 6001 ####[facility] [facility] [place] [address], [facility] SODIUM WHOLE BLOOD CBGLon Sodium [Moles/Vol] 136.0 mmol/L Normal 136.0-146 . 0 [facility] Comment on above: Performed By: #### 3 0318 #### [facility] [address] TYPE AND SCREENon 02-04-2022 ABO INTERPRETATION O Normal [facility] Comment on above: Performed By: #### 3 0318 #### [facility] [address] RH INTERPRETATION Negative Normal [facility] Comment on above: Performed By: #### 3 0318 #### [facility] [address] APTTon 02-03-2022 aPTT Coag (Bld) [Time] 64.0 s High 25.0-35.0 Th e [facility] Comment on above: Result Comment: ALL [...] THIS PURPOSE. Performed By: #### 5 6101, [id number] ####[facility] CBC W/DIFFon 02-03-2022 ABS IMM GRANS 0.0 10*3/uL Normal 0.0-0.2 [facility] Comment on above: Performed By: #### 3 0338 #### [facility] [address] ABS NEUTROPHILS 5.8 10*3/uL Normal 1.6-7.6 [facility] Comment on above: Performed By: #### 3 0338 #### [facility] [address] Basophils (Bld) [#/Vol] 0.0 10*3/uL Normal 0.0-0.2 [facility] Comment on above: Performed By: #### 3 0338 #### [facility] [address] [place] [address], [facility] Basophils/100 WBC (Bld) 0.5 % Normal 0.0-1.0 [facility] Comment on above: Performed By: #### 3 0338 #### [facility] [address] [facility] [place] [address], [facility] Eosinophils (Bld) [#/Vol] 0.2 10*3/uL Normal 0.0-0.5 [facility] Comment on above: Performed By: #### 3 0338 #### [facility] [address] [facility] [place] [address], [facility] Eosinophils/100 WBC (Bld) 2.1 % Normal 0.0-6.0 [facility] Comment on above: Performed By: #### 3 0338 #### [facility] [address] Erythrocyte distribution width (RBC) [Ratio] 14.2 % Normal 11.5-15.0 [facility] Comment on above: Performed By: #### 3 0338 #### [facility] [address] Hematocrit (Bld) [Volume fraction] 33.2 % Low 39.0-50.0 [facility] Comment on above: Performed By: #### 3 0338 #### [facility] [address] [facility] [place] [address], [facility] Hemoglobin (Bld) [Mass/Vol] 11.3 g/dL Low 13.0-17.0 [facility] Comment on above: Performed By: #### 3 0338 #### [facility] [address] [place] [address], [facility] IMMATURE GRANS 0.4 % Normal 0.0-1.0 [facility] Comment on above: Performed By: #### 3 0338 #### [facility] [address] Lymphocytes (Bld) [#/Vol] 1.0 10*3/uL Low 1.2-4.0 [facility] Comment on above: Performed By: #### 3 0338 #### [facility] [address] Lymphocytes/100 WBC (Bld) 12.6 % Low 20.0-45.0 [facility] Comment on above: Performed By: #### 3 0338 #### [facility] [address] MCH (RBC) [Entitic mass] 32.2 pg Normal 27.0-33.0 [facility] Comment on above: Performed By: #### 3 0338 #### [facility] [address] MCHC (RBC) [Mass/Vol] 34.0 g/dL Normal 32.0-35.0 [facility] Comment on above: Performed By: #### 3 0338 #### [facility] [address] MCV (RBC) [Entitic vol] 94.6 fL Normal 82.0-98.0 [facility] Comment on above: Performed By: #### 3 0338 #### [facility] [address] [place] [address], [facility] Monocytes (Bld) [#/Vol] 0.7 10*3/uL Normal 0.1-1.0 [facility] Comment on above: Performed By: #### 3 0338 #### [facility] [address] [place] [address], [facility] MONOS 9.2 % Normal 5.0-12.0 [facility] Comment on above: Performed By: #### 3 0338 #### [facility] [address] [place] [address], [facility] Neutrophils/100 WBC (Bld) 75.2 % High 40.0-72.0 [facility] Comment on above: Performed By: #### 3 0338 #### [facility] [address] [facility] [place] [address], [facility] Nucleated RBC/100 WBC (Bld) [Ratio] 0 % Normal 0-0 [facility] Comment on above: Performed By: #### 3 0338 #### [facility] [address] [facility] [place] [address], [facility] PLAT CNT 190 10*3/uL Normal 150-400 [facility] Comment on above: Performed By: #### 3 0338 #### [facility] [address] [facility]. [address] RBC (Bld) [#/Vol] 3.51 10*6/uL Low 4.20-5.70 [facility] Comment on above: Performed By: #### 3 0338 #### [facility] [address] [facility]. [address] WBC (Bld) [#/Vol] 7.75 10*3/uL Normal 4.00-10.60 [facility] Comment on above: Performed By: #### 3 0338 #### [facility] [address] [facility]. [address] COMP METABOLIC PANELon 02-03 Albumin [Mass/Vol] 3.7 g/dL Normal 3.5-5.7 [facility] Comment on above: Performed By: #### 3 0318 #### [facility] [address] [facility]. [address] ALKALINE PHOSPH 89 IU/L Normal 34-104 [facility] Comment on above: Performed By: #### 3 0318 #### [facility] [address] [facility]. [address] ALT [Catalytic activity/Vol] 10 U/L Normal 7-52 [facility] Comment on above: Performed By: #### 3 0318 #### [facility] [address] [place] [address], [facility] AST [Catalytic activity/Vol] 16 U/L Normal 13-39 [facility] Comment on above: Performed By: #### 3 0318 #### [facility] [address] [place] [address], [facility] Bilirubin [Mass/Vol] 0.6 mg/dL Normal 0.3-1.0 [facility] Comment on above: Performed By: #### 3 0318 #### [facility] [address] [place] [address], [facility] Calcium [Mass/Vol] 8.6 mg/dL Normal 8.6-10.3 [facility] Comment on above: Performed By: #### 3 0318 #### [facility] [address] [place] [address], [facility] Chloride [Moles/Vol] 103 mmol/L Normal 98-107 [facility] Comment on above: Performed By: #### 3 0318 #### [facility] [address] [place] [address], [facility] CO2 [Moles/Vol] 27 mmol/L Normal 21-31 [facility] Comment on above: Performed By: #### 3 0318 #### [facility] [address] [place] [address], [facility] Creatinine [Mass/Vol] 1.62 mg/dL High 0.70-1.30 [facility] Comment on above: Performed By: #### 3 0318 #### [facility] [address] [place] [address], [facility] eGFR- 51 ml/min/1.73sq m Abnormal >60 [facility] Comment on above: Result Comment: Calc ulation may not be valid for patients over 70 years Performed By: #### 3 0318 #### [facility] [address] [place] [address], [facility] eGFR- non- 42 ml/min/1.73sq m Abnormal >60 [facility] Comment on above: Result Comment: Calc ulation may not be valid for patients over 70 years Performed By: #### 3 0318 #### [facility] [address] [place] [address], [facility] Glucose [Mass/Vol] 90 mg/dL Normal 70-100 [facility] Comment on above: Performed By: #### 3 0318 #### [facility] [address] [place] [address], [facility] Potassium [Moles/Vol] 3.5 mmol/L Normal 3.5-5.1 [facility] Comment on above: Performed By: #### 3 0318 #### [facility] [address] [place] [address], [facility] Protein [Mass/Vol] 6.6 g/dL Normal 6.0-8.3 [facility] Comment on above: Performed By: #### 3 0318 #### [facility] [address] [place] [address], [facility] Sodium [Moles/Vol] 138 mmol/L Normal 136-145 [facility] Comment on above: Performed By: #### 3 0318 #### [facility] [address] [place] [address], [facility] Urea nitrogen [Mass/Vol] 23 mg/dL Normal 7-25 [facility] Comment on above: Performed By: #### 3 0318 #### [facility] [address] [place] [address], [facility] POC SARS COV2 ANTIGEN NEGATI VEon 02-03-2022 POC SARS COV2 ANTIGEN NEG Negative Normal NEGATIVE [facility] Comment on above: Result Comment: Nega [...] antigen from SARS-CoV-2 in direct nasopharyngeal swab ([employer]) specimens from individuals who are suspected of [...] Accreditation. Performed By: #### 3 2044 #### [address] PORTABLE CHEST 1 VIEWon 04- PORTABLE CHEST 1 VIEW [facility] Department of Radiology [address] [place] [phone] Patient Name: NIELS MCCULLOUGH : 1945 Sex: M Age: Race: White Pt. Location: [facility] Patient Status: E Ordered Date: 02/03/2022 8:05:00 [...] failure. Electronically signed: Isidro Nieto. Transcribed by: [email or web address], User Resident: Electronically Signed by: ISIDRO NIETO @ 02/03/2022 08:48 AM Normal [facility] Comment on above: Order Comment: evalu ate for Aspiration PROTHROMBIN TIMEon 2 INR Coag (PPP) [Relative time] 3.62 {INR} High 0.91-1.16 [facility] Comment on above: Result Comment: ACCC [...] 1995;108:231S-246S. Performed By: #### 3 0338 #### [facility] [address] [place] [address], [facility] INR Coag (PPP) [Relative time] 3.58 {INR} High 0.91-1.16 [facility] Comment on above: Order Comment: No: [...] CHEST 1995;108:231S-246S. Performed By: #### 5 6101 ####[facility] [facility] [address], [facility] PT Coag (PPP) [Time] 35.8 s High 12.3-14.8 [facility] Comment on above: Result Comment: ALL RESULTS MUST BE INTERPRETED WITH RESPECT TO BLOOD DRAWING ARTIFACT OR DILUTION ERROR OF ANTICOAGULANT AT THE TIME OF SAMPLING. Performed By: #### 3 0338 #### [facility] [address] PT Coag (PPP) [Time] 35.4 s High 12.3-14.8 [facility] Comment on above: Order Comment: No: D o not add to previous draw Result Comment: ALL RESULTS MUST BE INTERPRETED WITH RESPECT TO BLOOD DRAWING ARTIFACT OR DILUTION ERROR OF ANTICOAGULANT AT THE TIME OF SAMPLING. Performed By: #### 5 6101 ####[facility] [facility].[address] RBC'S 2 UNITSon 02-03-2022 CROSSMATCH INTERP 1 COMP Normal [facility] Comment on above: Performed By: #### 8 6002 ####[facility] [facility].[address] CROSSMATCH INTERP 2 COMP Normal [facility] Comment on above: Performed By: #### 8 6002 ####[facility] [facility].[address] PRODUCT CODE 1 E0336 Normal [facility] Comment on above: Performed By: #### 8 6002 ####[facility] [facility] [place] [address], [facility] PRODUCT CODE 2 E0336 Normal [facility] Comment on above: Performed By: #### 8 6002 ####[facility]3000 [facility].[address] PRODUCT STATUS 1 RE Normal [facility] Comment on above: Result Comment: Resu lt changed by IF on 02/04/2022 19:14. The previous value was XM. Result changed by IF on 02/04/2022 20:42. The previous value was IS. Result changed by IF on 02/08/2022 07:21. The previous value was XM. Performed By: #### 8 6002 ####[facility] [facility] [place] [address], [facility] PRODUCT STATUS 2 RE Normal [facility] Comment on above: Result Comment: Resu lt changed by IF on 02/04/2022 19:16. The previous value was XM. Performed By: #### 8 6002 ####[facility] [facility] [place] [address], [facility] UNIT ABO 1 O Normal [facility] Comment on above: Performed By: #### 8 6002 ####[facility] [facility] [place] [address], [facility] UNIT ABO 2 O Normal [facility] Comment on above: Performed By: #### 8 6002 ####[facility] [facility].[place], [place] [address] [place] [address] UNIT ID 1 [id number] Normal [facility] Comment on above: Performed By: #### 8 6002 ####[facility]3000 [facility].[address] UNIT ID 2 [id number] Normal [facility] Comment on above: Performed By: #### 8 6002 ####[facility] [facility] [place] [address], [facility] UNIT RH 1 Negative Normal [facility] Comment on above: Performed By: #### 8 6002 ####[facility] [facility].[place], [place] [address] [place] [address] UNIT RH 2 Negative Normal [facility] Comment on above: Performed By: #### 8 6002 ####[facility] [facility] [place] [address], [facility] UA w/Reflex Cultureon 2017 Acetoacetic Acid,Ur Negative Normal NEG [facility] Comment on above: Performed By: #### U AX UMDEEPTHIO ####[facility] [place] [address] Bilirubin, SemiQt,Ur Negative Normal NEG [facility] Comment on above: Performed By: #### U AX, UMICAO ####[facility] [place] [address] Color YELLOW Normal YEL [facility] Comment on above: Performed By: #### U AX, UMICAO ####[facility] [place] [address] Comment NOT REPORTED Normal [facility] Comment on above: Performed By: #### U AX, UMICAO ####[facility] [place] [address] Glucose,Semi-qnt,Ur Negative Normal NEG [facility] Comment on above: Performed By: #### U AX, UMICAO ####[facility] [place] [address] Hemoglobin, Ur Negative Normal NEG [facility] Comment on above: Performed By: #### U AX, UMICAO ####[facility] [place] [address] Leuckocyte Esterase Negative Normal NEG [facility] Comment on above: Performed By: #### U AX, UMICAO ####[facility] [place] [address] Nitrite,Ur Negative Normal NEG [facility] Comment on above: Performed By: #### U AX, UMICAO ####[facility] [place] [address] PH,Ur 7.0 Normal 5.0-8.0 [facility] Comment on above: Performed By: #### U AX, UMICAO ####[facility] [place] [address] Protein, Semi-qnt,Ur Negative Normal NEG [facility] Comment on above: Performed By: #### U AX, UMICAO ####[facility] [place] [address] Spec. [place],Ur 1.005 Normal 1.000-1.03 0 [facility] Comment on above: Performed By: #### U AX, UMICAO ####[address] [address] Turbidity CLOUDY Abnormal CLEAR [facility] Comment on above: Performed By: #### U AX, UMICAO ####[address] [address] Urobilinogen,Ur Normal Normal NORM [facility] Comment on above: Performed By: #### U AX, UMICAO ####[address] [address] Urinalysis,Microon 8 ----- Normal [facility] Comment on above: Performed By: #### U AX, UMICAO ####[address] [address] Amorphous Sediment NOT REPORTED Normal NONE [facility] Comment on above: Performed By: #### U AX, UMICAO ####[address] [address] Bacteria FEW Abnormal NONE [facility] Comment on above: Performed By: #### U AX, UMICAO ####[address] [address] Casts NOT REPORTED Normal [facility] Comment on above: Performed By: #### U AX, UMICAO ####[address] [address] Crystals NOT REPORTED Normal NONE [facility] Comment on above: Performed By: #### U AX, UMICAO ####[facility] [facility] [place] [address] Epithelial cells 0 TO [address] [facility] Comment on above: Performed By: #### U AX, UMICAO ####[facility] [facility] [place] [address] Epithelial, Renal NOT REPORTED Normal 0 [facility] Comment on above: Performed By: #### U AX, UMICAO ####[facility] [facility] [place] [address] Mucus Strands NOT REPORTED Normal NONE [facility] Comment on above: Performed By: #### U AX, UMICAO ####[facility] [place] [address].[facility] [place] [address] Other Observations NOT REPORTED Normal NREQ [facility] Comment on above: Performed By: #### U AX, UMICAO ####[facility] [facility] [place] [address] RBC Test strip #/vol (U) 0 TO 2 Normal [facility] Comment on above: Performed By: #### U AX, UMICAO ####[facility] [facility] [place] [address] Trichomonas NOT REPORTED Normal NONE [facility] Comment on above: Performed By: #### U AX, UMICAO ####[facility] [facility] [place] [address] Urine WBC's 0 TO 2 Normal [facility] Comment on above: Performed By: #### U AX, UMICAO ####[address] [place] [address] Yeast NOT REPORTED Normal NONE [facility] Comment on above: Performed By: #### U AX, UMICAO ####[facility] [place] [address] Acetaminophenon 08-16-2018 Acetaminophen mass conc <5 Low 10-30 [facility] Comment on above: Performed By: #### T ABA HERNADEZ, BMP ####[address] [place] [address] CBC with Diffon 08-16-2018 Abs. Basophil 0.03 k/uL Normal 0.00-0.20 [facility] Comment on above: Performed By: #### T ABA HERNADEZ, BMP ####[address] [place] [address] Abs.Imm.Granulocyte <0.03 Normal 0.00-0.30 [facility] Comment on above: Performed By: #### T ABA HERNADEZ, BMP ####[address] [place] [address] Abs.Neutrophil (Seg) 3.19 k/uL Normal 1.50-8.10 [facility] Comment on above: Performed By: #### T ABA HERNADEZ, BMP ####[address] [place] [address] Auto Diff Performed NOT REPORTED Normal [facility] Comment on above: Performed By: #### T ABA HERNADEZ, BMP ####[address] [place] [address] Basophils/100 WBC Auto (Bld) 1 % Normal 0-2 [facility] Comment on above: Performed By: #### T ABA HERNADEZ, BMP ####[address] [place] [address] Eosinophils Auto #/vol (Bld) 0.17 10*3/uL Normal 0.00-0.44 [facility] Comment on above: Performed By: #### T ABA HERNADEZ, BMP ####[address] [place] [id number] Eosinophils/100 WBC Auto (Bld) 3 % Normal 1-4 [facility] Comment on above: Performed By: #### T ABA HERNADEZ, BMP ####[address] , [facility] Erythrocyte distribution width Auto Ratio (RBC) 12.6 % Normal 11.8-14.4 [facility] Comment on above: Performed By: #### T ABA HERNADEZ, BMP ####[address] , [facility]83 Hematocrit Auto Volume Fraction (Bld) 39.4 % Low 40.7-50.3 [facility] Comment on above: Performed By: #### T ABA HERNADEZ, BMP ####[address] , [place] [address] Hemoglobin mass conc (Bld) 13.5 g/dL Normal 13.0-17.0 [facility] Comment on above: Performed By: #### T ABA HERNADEZ, BMP ####[address] , [facility]83 Immature granulocytes #/vol (Bld) 0 % Normal 0 [facility] Comment on above: Performed By: #### T ABA HERNADEZ, BMP ####[address] , [facility]83 Lymphocytes Auto #/vol (Bld) 1.54 10*3/uL Normal 1.10-3.70 [facility] Comment on above: Performed By: #### T ABA HERNADEZ, BMP ####[address] , [facility]83 Lymphocytes/100 WBC Auto (Bld) 28 % Normal 24-43 [facility] Comment on above: Performed By: #### T ABA HERNADEZ, BMP ####[address] , [facility]83 MCH Auto Entitic mass (RBC) 33.4 pg Normal 25.2-33.5 [facility] Comment on above: Performed By: #### T ABA HERNADEZ, BMP ####[address] , [place] [address] MCHC Auto mass conc (RBC) 34.3 g/dL Normal 28.4-34.8 [facility] Comment on above: Performed By: #### T ABA HERNADEZ, BMP ####[address] , [facility]83 MCV Auto Entitic volume (RBC) 97.5 fL Normal 82.6-102.9 [facility] Comment on above: Performed By: #### T ABA HERNADEZ, BMP ####[address] , [facility]83 Monocytes Auto #/vol (Bld) 0.66 10*3/uL Normal 0.10-1.20 [facility] Comment on above: Performed By: #### T ABA HERNADEZ, BMP ####[address] , [place] [address] Monocytes/100 WBC Auto (Bld) 12 % Normal 3-12 [facility] Comment on above: Performed By: #### T ABA HERNADEZ, BMP ####[address] , [facility]83 Neutrophil (Seg) 56 % Normal 36-65 [facility] Comment on above: Performed By: #### T ABA HERNADEZ, BMP ####[address] , [place] [address] NRBC Automated 0.0 per 100 WBC Normal 0.0 [facility] Comment on above: Performed By: #### T ABA HERNADEZ, BMP ####[address] , [facility]83 Platelet mean volume Auto Entitic volume (Bld) 8.7 fL Normal 8.1-13.5 [facility] Comment on above: Performed By: #### T MARICARMEN CDP, BMP ####[address] [place] [address] Platelets Auto #/vol (Bld) NOT REPORTED Normal [facility] Comment on above: Performed By: #### T SH, CDP, BMP ####[address] [place] [address] Platelets Auto #/vol (Bld) 163 10*3/uL Normal 138-453 [facility] Comment on above: Performed By: #### T MARICARMEN, CDP, BMP ####[address] [place] [address] RBC Auto #/vol (Bld) 4.04 10*6/uL Low 4.21-5.77 [facility] Comment on above: Performed By: #### T ABA HERNADEZ, BMP ####[address] [place] [address] RBC morphology finding Nom (Bld) NOT REPORTED Normal [facility] Comment on above: Performed By: #### T ABA HERNADEZ, BMP ####[address] [place] [address] WBC Auto #/vol (Bld) 5.6 10*3/uL Normal 3.5-11.3 [facility] Comment on above: Performed By: #### T ABA HERNADEZ, BMP ####[address] [place] [address] WBC Morphology NOT REPORTED Normal [facility] Comment on above: Performed By: #### T ABA HERNADEZ, BMP ####[address] [place] [address] Comp Metabolic Profon 2017 (cont.) Normal [facility] Comment on above: Result Comment: Aver age GFR for 70 or more years old: 75 mL/min/1.73sq mChronic Kidney Disease: <60 mL/min/1.73sq mKidney failure: <15 mL/min/1.73sq meGFR calculated using average adult body mass. Additional eGFR calculator available at:http://www.Bizen.Cleanify/multiple_crcl_2012.htm Performed By: #### T ABA HERNADEZ, BMP ####[address] [place] [address] Albumin mass conc 4.0 g/dL Normal 3.5-5.2 [facility] Comment on above: Performed By: #### T ABA HERNADEZ, BMP ####[address] [place] [address] Albumin/Globulin mass ratio 1.7 {ratio} Normal 1.0-2.5 [facility] Comment on above: Performed By: #### T ABA HERNADEZ, BMP ####[address] [place] [address] Alkaline Phos 71 U/L Normal 40-129 [facility] Comment on above: Performed By: #### T ABA HERNADEZ, BMP ####[address] [place] [address] ALT enzyme act/vol 10 U/L Normal 5-41 [facility] Comment on above: Performed By: #### T ABA HERNADEZ, BMP ####[address] [place] [address] Anion gap 3 molar conc 10 mmol/L Normal 9-17 [facility] Comment on above: Performed By: #### T ABA HERNADEZ, BMP ####[address] [place] [address] AST enzyme act/vol 14 U/L Normal <40 [facility] Comment on above: Performed By: #### T ABA HERNADEZ, BMP ####[address] [place] [address] Bilirubin Ql (U) 0.57 mg/dL Normal 0.3-1.2 [facility] Comment on above: Performed By: #### T SH, CDP, BMP ####[facility] [place] [address] BUN/CRE Ratio 9 Normal 9-20 [facility] Comment on above: Performed By: #### T SH, CDP, BMP ####[facility] [place] [address] Calcium mass conc 8.9 mg/dL Normal 8.6-10.4 [facility] Comment on above: Performed By: #### T SH, CDP, BMP ####[address] [place] [address] Chloride molar conc 95 mmol/L Low 98-107 [facility] Comment on above: Performed By: #### T SH, CDP, BMP ####[address] [place] [address] CO2 molar conc 29 mmol/L Normal 20-31 [facility] Comment on above: Performed By: #### T SH, CDP, BMP ####[address] [place] [address] Creatinine mass conc 1.42 mg/dL High 0.70-1.20 [facility] Comment on above: Performed By: #### T SH, CDP, BMP ####[address] [place] [address] GFR, Amer 60 mL/min Low >60 [facility] Comment on above: Performed By: #### T SH, CDP, BMP ####[address] [place] [address] GFR,non Amer 49 mL/min Low >60 [facility] Comment on above: Performed By: #### T SH, CDP, BMP ####[address] [place] [address] Glucose mass conc 111 mg/dL High 70-99 [facility] Comment on above: Performed By: #### T SH, CDP, BMP ####[address] [place] [address] Potassium molar conc 4.0 mmol/L Normal 3.7-5.3 [facility] Comment on above: Performed By: #### T SH, CDP, BMP ####[address] [place] [address] Protein mass conc 6.4 g/dL Normal 6.4-8.3 [facility] Comment on above: Performed By: #### T SH, CDP, BMP ####[address] [place] [address] Sodium molar conc 134 mmol/L Low 135-144 [facility] Comment on above: Performed By: #### T SH, CDP, BMP ####[address] [place] [address] Staging: Normal [facility] Comment on above: Result Comment: Stag e 1: Some kidney damage normal GFRStage 2: Mild kidney damage GFR 60-89Stage 3: Moderate kidney damage GFR 30-59Stage 4: Severe kidney damage GFR 15-29Stage 5: Severe kidney damage GFR <15ESRD - chronic treatment by dialysis or transplant Performed By: #### T SH, CDP, BMP ####[address] [place] [address] Urea nitrogen mass conc 13 mg/dL Normal 8-23 [facility] Comment on above: Performed By: #### T SH, CDP, BMP ####[address] [place] [address] Drug Scr, Abuse, Uron 2017 Amphetamine(s),Ur Negative Normal NEG [facility] Comment on above: Performed By: #### T SH, CDP, BMP ####[address] [place] [address] Barbiturate(s),Ur Negative Normal NEG [facility] Comment on above: Performed By: #### T SH, CDP, BMP ####[address] [place] [address] Base excess Calculated molar conc (Bld) Negative Normal NEG [facility] Comment on above: Performed By: #### T SH, CDP, BMP ####[address] [place] [address] Benzodiazepine(s) Positive Abnormal NEG [facility] Comment on above: Performed By: #### T SH, CDP, BMP ####[address] [place] [address] Buprenorphrine, Ur Negative Normal NEG [facility] Comment on above: Performed By: #### T SH, CDP, BMP ####[address] [place] [address] Cannabinoid(s),Ur Negative Normal [facility] Comment on above: Performed By: #### T SH, CDP, BMP ####[address] [place] [address] Interpretive Info NOT REPORTED Normal [facility] Comment on above: Performed By: #### T SH, CDP, BMP ####[address] [place] [address] MDMA, Urine NOT REPORTED Normal NEG [facility] Comment on above: Performed By: #### T SH, CDP, BMP ####[address] [place] [address] Methadone Ql (U) Negative Normal NEG [facility] Comment on above: Performed By: #### T SH, CDP, BMP ####[address] [place] [address] Methamphetamine, Ur Negative Normal [facility] Comment on above: Performed By: #### T SH, CDP, BMP ####[address] [place] [address] Opiate(s), Ur Negative Normal NEG [facility] Comment on above: Performed By: #### T ABA HERNADEZ, BMP ####[address] , [place] [address] Oxycodone, Urine Negative Normal NEG [facility] Comment on above: Performed By: #### T ABA HERNADEZ, BMP ####[address] [place] [address] Phencyclidine, Ur Negative Normal NEG [facility] Comment on above: Performed By: #### T ABA HERNADEZ, BMP ####[address] , [place] [address] Propoxyphene,Urine Negative Normal NEG [facility] Comment on above: Performed By: #### T ABA HERNADEZ, BMP ####[address] [place] [address] Tricyclic antidepressants Screen Ql (U) Negative Normal NEG [facility] Comment on above: Result Comment: Drug screen results are to be used for medical purposes only. All positive results are unconfirmed. Testing for employment or legal uses should be sent to a reference laboratory for confirmation. Performed By: #### T ABA HERNADEZ, BMP ####[address] , [place] [address] ED Noteon 08-16-2018 HIM IP Note OR Bobbin Dumper Normal [facility] HIM IP Note OR Bobbin Dumper Normal [facility] HIM IP Note OR Bobbin Dumper [facility] HIM IP Note OR Bobbin Dumper Normal [facility] ED Provider Noteon 8 HIM IP Note OR Bobbin Dumper Normal [facility] Ethanol Alcoholon 08-16-2018 Ethanol mass conc mg/dL Normal <10 [facility] Comment on above: Performed By: #### T SH, CDP, BMP ####[address] [place] [address] Ethanol percent <0.010 Normal [facility] Comment on above: Performed By: #### T ABA HERNADEZ, BMP ####[address] [place] [address] Salicylateon 08-16-2018 Salicylate <1 Low 3-10 [facility] Comment on above: Performed By: #### T ABA HERNADEZ, BMP ####[address] [place] [address] Thyroid Stim. Horm.on 2017 Thyrotropin Qn 0.80 m[IU]/L Normal 0.30-5.00 [facility] Comment on above: Performed By: #### T ABA HERNADEZ, BMP ####[address] [place] [address] Thyroxine, Freeon 08-16-2018 Thyroxine, Free 1.43 ng/dL Normal 0.93-1.70 [facility] Comment on above: Performed By: #### T ABA HERNADEZ, BMP ####[address] [place] [address] Urinalysis w/ Microon 2017 ----- Normal [facility] Comment on above: Performed By: #### T ABA HERNADEZ, BMP ####[address] [place] [address] Acetaminophen mass conc Negative Normal NEG [facility] Comment on above: Performed By: #### T ABA HERNADEZ, BMP ####[address] [place] [address] Amorphous Sediment NOT REPORTED Normal NONE [facility] Comment on above: Performed By: #### T ABA HERNADEZ, BMP ####[address] [place] [address] Bacteria TRACE Abnormal NONE [facility] Comment on above: Performed By: #### T ABA HERNADEZ, BMP ####[address] [place] [address] Bilirubin, SemiQt,Ur Negative Normal NEG [facility] Comment on above: Performed By: #### T SH, CDP, BMP ####[address] [place] [address] Casts NOT REPORTED Normal [facility] Comment on above: Performed By: #### T SH, CDP, BMP ####[address] [place] [address] Color YELLOW Normal YEL [facility] Comment on above: Performed By: #### T SH, CDP, BMP ####[address] [place] [address] Comment NOT REPORTED Normal [facility] Comment on above: Performed By: #### T SH, CDP, BMP ####[address] [place] [address] Crystals NOT REPORTED Normal NONE [facility] Comment on above: Performed By: #### T SH, CDP, BMP ####[address] [place] [address] Epithelial cells 0 TO 2 Normal 0-5 [facility] Comment on above: Performed By: #### T SH, CDP, BMP ####[address] [place] [address] Epithelial, Renal NOT REPORTED Normal 0 [facility] Comment on above: Performed By: #### T SH, CDP, BMP ####[address] [place] [address] Glucose,Semi-qnt,Ur Negative Normal NEG [facility] Comment on above: Performed By: #### T SH, CDP, BMP ####[address] [place] [address] Hemoglobin, Ur Negative Normal NEG [facility] Comment on above: Performed By: #### T SH, CDP, BMP ####[address] [place] [address] Leuckocyte Esterase Negative Normal NEG [facility] Comment on above: Performed By: #### T ABA HERNADEZ, BMP ####[address] [place] [address] Mucus Strands NOT REPORTED Normal NONE [facility] Comment on above: Performed By: #### T MARICARMEN CDP, BMP ####[address] [place] [address] Nitrite,Ur Negative Normal NEG [facility] Comment on above: Performed By: #### T ABA HERNADEZ, BMP ####[address] [place] [address] Other Observations NOT REPORTED Normal NREQ [facility] Comment on above: Performed By: #### T ABA HERNADEZ, BMP ####[address] , [facility]83 PH,Ur 7.0 Normal 5.0-9.0 [facility] Comment on above: Performed By: #### T ABA HERNADEZ, BMP ####[address] [place] [address] Protein mass conc Negative Normal NEG [facility] Comment on above: Performed By: #### T ABA HERNADEZ, BMP ####[address] , [facility]83 RBC Test strip #/vol (U) 0 TO 2 Normal 0-2 [facility] Comment on above: Performed By: #### T MARICARMEN, CDP, BMP ####[address] [place] [address] Spec. [place],Ur <1.005 Low 1.010-1.02 0 [facility] Comment on above: Performed By: #### T MARICARMEN, CDP, BMP ####[address] [place] [address] Trichomonas NOT REPORTED Normal NONE [facility] Comment on above: Performed By: #### T SH, CDP, BMP ####[address] [place] [address] Turbidity CLEAR Normal CLEAR [facility] Comment on above: Performed By: #### T SH, CDP, BMP ####[address] [place] [id number] Urine WBC's 0 TO 2 Normal 0-5 [facility] Comment on above: Performed By: #### T SH, CDP, BMP ####[address] [place] [address] Urobilinogen,Ur Normal Normal NORM [facility] Comment on above: Performed By: #### T MARICARMEN, CDP, BMP ####[address] [place] [address] Yeast NOT REPORTED Normal NONE [facility] Comment on above: Performed By: #### T MARICARMEN, CDP, BMP ####[address] [place] [address] APTTon 08-06-2018 aPTT Coag time (Bld) 28.4 s Normal 23.2-34.4 [facility] Comment on above: Performed By: #### T MARICARMEN, CDP, BMP ####[address] [place] [address] CBC with Diffon 08-06-2018 Abs. Basophil 0.03 k/uL Normal 0.00-0.20 [facility] Comment on above: Performed By: #### T MARICARMEN, CDP, BMP ####[address] [place] [address] Abs.Imm.Granulocyte <0.03 Normal 0.00-0.30 [facility] Comment on above: Performed By: #### T SH, CDP, BMP ####[address] [place] [address] Abs.Neutrophil (Seg) 4.25 k/uL Normal 1.50-8.10 [facility] Comment on above: Performed By: #### T ABA HERNADEZ, BMP ####[address] [place] [address] Auto Diff Performed NOT REPORTED Normal [facility] Comment on above: Performed By: #### T ABA HERNADEZ, BMP ####[address] [place] [address] Basophils/100 WBC Auto (Bld) 1 % Normal 0-2 [facility] Comment on above: Performed By: #### T ABA HERNADEZ, BMP ####[address] [place] [address] Eosinophils Auto #/vol (Bld) 0.20 10*3/uL Normal 0.00-0.44 [facility] Comment on above: Performed By: #### T ABA HERNADEZ, BMP ####[address] , [facility]83 Eosinophils/100 WBC Auto (Bld) 3 % Normal 1-4 [facility] Comment on above: Performed By: #### T ABA HERNADEZ, BMP ####[address] [place] [address] Erythrocyte distribution width Auto Ratio (RBC) 12.2 % Normal 11.8-14.4 [facility] Comment on above: Performed By: #### T ABA HERNADEZ, BMP ####[address] [place] [address] Hematocrit Auto Volume Fraction (Bld) 39.4 % Low 40.7-50.3 [facility] Comment on above: Performed By: #### T ABA HERNADEZ, BMP ####[address] [place] [address] Hemoglobin mass conc (Bld) 13.7 g/dL Normal 13.0-17.0 [facility] Comment on above: Performed By: #### T ABA HERNADEZ, BMP ####[address] , [place] [address] Immature granulocytes #/vol (Bld) 0 % Normal 0 [facility] Comment on above: Performed By: #### T ABA HERNADEZ, BMP ####[address] , [place] [address] Lymphocytes Auto #/vol (Bld) 1.12 10*3/uL Normal 1.10-3.70 [facility] Comment on above: Performed By: #### T ABA HERNADEZ, BMP ####[address] [place] [address] Lymphocytes/100 WBC Auto (Bld) 18 % Low 24-43 [facility] Comment on above: Performed By: #### T ABA HERNADEZ, BMP ####[address] , [place] [address] MCH Auto Entitic mass (RBC) 33.6 pg High 25.2-33.5 [facility] Comment on above: Performed By: #### T ABA HERNADEZ, BMP ####[address] , [facility]83 MCHC Auto mass conc (RBC) 34.8 g/dL Normal 28.4-34.8 [facility] Comment on above: Performed By: #### T ABA HERNADEZ, BMP ####[address] [place] [address] MCV Auto Entitic volume (RBC) 96.6 fL Normal 82.6-102.9 [facility] Comment on above: Performed By: #### T ABA HERNADEZ, BMP ####[address] [place] [address] Monocytes Auto #/vol (Bld) 0.61 10*3/uL Normal 0.10-1.20 [facility] Comment on above: Performed By: #### T ABA HERNADEZ, BMP ####[address] [place] [address] Monocytes/100 WBC Auto (Bld) 10 % Normal 3-12 [facility] Comment on above: Performed By: #### T SH, CDP, BMP ####[address] [place] [address] Neutrophil (Seg) 68 % High 36-65 [facility] Comment on above: Performed By: #### T SH, CDP, BMP ####[address] [place] [address] NRBC Automated 0.0 per 100 WBC Normal 0.0 [facility] Comment on above: Performed By: #### T MARICARMEN, CDP, BMP ####[address] [place] [id number] Platelet mean volume Auto Entitic volume (Bld) 8.7 fL Normal 8.1-13.5 [facility] Comment on above: Performed By: #### T ABA HERNADEZ, BMP ####[address] [place] [address] Platelets Auto #/vol (Bld) NOT REPORTED Normal [facility] Comment on above: Performed By: #### T MARICARMEN, CDP, BMP ####[address] [place] [address] Platelets Auto #/vol (Bld) 192 10*3/uL Normal 138-453 [facility] Comment on above: Performed By: #### T MARICARMEN, CDP, BMP ####[address] [place] [address] RBC Auto #/vol (Bld) 4.08 10*6/uL Low 4.21-5.77 [facility] Comment on above: Performed By: #### T SH, CDP, BMP ####[address] , [facility]83 RBC morphology finding Nom (Bld) NOT REPORTED Normal [facility] Comment on above: Performed By: #### T ABA HERNADEZ, BMP ####[address] [place] [address] WBC Auto #/vol (Bld) 6.2 10*3/uL Normal 3.5-11.3 [facility] Comment on above: Performed By: #### T ABA HERNADEZ, BMP ####[address] [place] [address] WBC Morphology NOT REPORTED Normal [facility] Comment on above: Performed By: #### T ABA HERNADEZ, BMP ####[address] [place] [address] CT ABDOMEN PELVIS WO CONTRAS Ton 08-06-2018 [...] as reasonablyachievable.JAMEEL RISON:03/12/2018HISTORY:OR DERING SYSTEM PROVIDED HISTORY: [facility] painTECHNOLOGIST PROVIDED HISTORY:FINDINGS:Lower Chest: Bibasilar peripheral 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 Additional eGFR calculator available at:http://www.Bizen.com/multiple_crcl_2012.htm Performed By: #### T ABA HERNADEZ, BMP ####[address] [place] [address] Albumin mass conc 4.0 g/dL Normal 3.5-5.2 [facility] Comment on above: Performed By: #### T ABA HERNADEZ, BMP ####[address] [place] [address] Albumin/Globulin mass ratio 1.4 {ratio} Normal 1.0-2.5 [facility] Comment on above: Performed By: #### ABA OLSON, BMP ####[address] [place] [address] Alkaline Phos 79 U/L Normal 40-129 [facility] Comment on above: Performed By: #### ABA OLSON, BMP ####[address] [place] [address] ALT enzyme act/vol 11 U/L Normal 5-41 [facility] Comment on above: Performed By: #### T ABA HERNADEZ, BMP ####[address] [place] [address] Anion gap 3 molar conc 12 mmol/L Normal 9-17 [facility] Comment on above: Performed By: #### T ABA HERNADEZ, BMP ####[address] [place] [address] AST enzyme act/vol 15 U/L Normal <40 [facility] Comment on above: Performed By: #### T ABA HERNADEZ, BMP ####[address] [place] [address] Bilirubin Ql (U) 0.41 mg/dL Normal 0.3-1.2 [facility] Comment on above: Performed By: #### ABA OLSON, BMP ####[address] [place] [address] BUN/CRE Ratio 8 Low 9-20 [facility] Comment on above: Performed By: #### T MARICARMEN CDP, BMP ####[address] [place] [address] Calcium mass conc 9.1 mg/dL Normal 8.6-10.4 [facility] Comment on above: Performed By: #### T MARICARMEN CDP, BMP ####[address] [place] [address] Chloride molar conc 96 mmol/L Low 98-107 [facility] Comment on above: Performed By: #### T ABA HERNADEZ, BMP ####[address] [place] [address] CO2 molar conc 25 mmol/L Normal 20-31 [facility] Comment on above: Performed By: #### T ABA HERNADEZ, BMP ####[address] [place] [address] Creatinine mass conc 1.45 mg/dL High 0.70-1.20 [facility] Comment on above: Performed By: #### T ABA HERNADEZ, BMP ####[address] [place] [address] GFR, Amer 58 mL/min Low >60 [facility] Comment on above: Performed By: #### T MARICARMEN CDP, BMP ####[address] [place] [address] GFR,non Amer 48 mL/min Low >60 [facility] Comment on above: Performed By: #### T MARICARMEN CDP, BMP ####[address] [place] [address] Glucose mass conc 100 mg/dL High 70-99 [facility] Comment on above: Performed By: #### T MARICARMEN CDP, BMP ####[address] [place] [address] Potassium molar conc 3.7 mmol/L Normal 3.7-5.3 [facility] Comment on above: Performed By: #### T ABA HERNADEZ, BMP ####[address] [place] [address] Protein mass conc 6.8 g/dL Normal 6.4-8.3 [facility] Comment on above: Performed By: #### T ABA HERNADEZ, BMP ####[address] [place] [address] Sodium molar conc 133 mmol/L Low 135-144 [facility] Comment on above: Performed By: #### T ABA HERNADEZ, BMP ####[address] [place] [address] Staging: Normal [facility] Comment on above: Result Comment: Stag e 1: Some kidney damage normal GFRStage 2: Mild kidney damage GFR 60-89Stage 3: Moderate kidney damage GFR 30-59Stage 4: Severe kidney damage GFR 15-29Stage 5: Severe kidney damage GFR <15ESRD - chronic treatment by dialysis or transplant Performed By: #### T ABA HERNADEZ, BMP ####[address] [place] [address] Urea nitrogen mass conc 11 mg/dL Normal 8-23 [facility] Comment on above: Performed By: #### T ABA HERNADEZ, BMP ####[address] , [place] [address] ED Provider Noteon 8 HIM IP Note OR Bobbin Dumper Normal [facility] Lactic Acidon 08-06-2018 Lactate molar conc 0.8 mmol/L Normal 0.5-2.2 [facility] Comment on above: Performed By: #### T ABA HERNADEZ, BMP ####[address] [place] [address] Lactic Acid,Whole Bl NOT REPORTED Normal 0.7-2.1 [facility] Comment on above: Performed By: #### T ABA HERNADEZ, BMP ####[address] [place] [address] PTon 08-06-2018 INR Coag RelTime (PPP) 1.0 {INR} Normal 0.9-1.2 [facility] Comment on above: Performed By: #### T ABA HERNADEZ, BMP ####[address] [place] [address] Prothrombin time (PT) Coag time (PPP) 10.6 s Normal 9.7-12.2 [facility] Comment on above: Performed By: #### T ABA HERNADEZ, BMP ####[address] [place] [address] Thyroid Stim. Horm.on 2017 Thyrotropin Qn 0.37 m[IU]/L Normal 0.30-5.00 [facility] Comment on above: Performed By: #### T ABA HERNADEZ, BMP ####[address] [place] [address] Urinalysis, Routineon 2017 Acetaminophen mass conc Negative Normal NEG [facility] Comment on above: Performed By: #### T ABA HERNADEZ, BMP ####[address] [place] [address] Bilirubin, SemiQt,Ur Negative Normal NEG [facility] Comment on above: Performed By: #### T ABA HERNADEZ, BMP ####[address] [place] [address] Color YELLOW Normal YEL [facility] Comment on above: Performed By: #### T ABA HERNADEZ, BMP ####[address] [place] [address] Comment NOT REPORTED Normal [facility] Comment on above: Performed By: #### T ABA HERNADEZ, BMP ####[address] [place] [address] Glucose,Semi-qnt,Ur Negative Normal NEG [facility] Comment on above: Performed By: #### T MARICARMEN CDP, BMP ####[address] [place] [address] Hemoglobin, Ur TRACE Abnormal NEG [facility] Comment on above: Performed By: #### T ABA HERNADEZ, BMP ####[address] [place] [address] Leuckocyte Esterase Negative Normal NEG [facility] Comment on above: Performed By: #### T ABA HERNADEZ, BMP ####[address] [place] [address] Nitrite,Ur Negative Normal NEG [facility] Comment on above: Performed By: #### T ABA HERNADEZ, BMP ####[address] [place] [address] PH,Ur 7.0 Normal 5.0-9.0 [facility] Comment on above: Performed By: #### T ABA HERNADEZ, BMP ####[address] [place] [address] Protein mass conc Negative Normal NEG [facility] Comment on above: Performed By: #### T ABA HERNADEZ, BMP ####[address] [place] [address] Spec. [place],Ur <1.005 Low 1.010-1.02 0 [facility] Comment on above: Performed By: #### T ABA HERNADEZ, BMP ####[address] [place] [address] Turbidity CLEAR Normal CLEAR [facility] Comment on above: Performed By: #### T ABA HERNADEZ, BMP ####[address] [place] [address] Urobilinogen,Ur Normal Normal NORM [facility] Comment on above: Performed By: #### T SH, CDP, BMP ####[address] [place] [address] Urinalysis,Microon 8 ----- Normal [facility] Comment on above: Performed By: #### T SH, CDP, BMP ####[address] [place] [address] Amorphous Sediment NOT REPORTED Normal NONE [facility] Comment on above: Performed By: #### T SH, CDP, BMP ####[address] [place] [address] Bacteria NOT REPORTED Normal NONE [facility] Comment on above: Performed By: #### T SH, CDP, BMP ####[address] [place] [address] Casts NOT REPORTED Normal [facility] Comment on above: Performed By: #### T SH, CDP, BMP ####[address] [place] [address] Crystals NOT REPORTED Normal NONE [facility] Comment on above: Performed By: #### T SH, CDP, BMP ####[address] [place] [address] Epithelial cells 0 TO 2 Normal 0-5 [facility] Comment on above: Performed By: #### T SH, CDP, BMP ####[address] [place] [address] Epithelial, Renal NOT REPORTED Normal 0 [facility] Comment on above: Performed By: #### T SH, CDP, BMP ####[address] [place] [address] Mucus Strands NOT REPORTED Normal NONE [facility] Comment on above: Performed By: #### T SH, CDP, BMP ####[address] [place] [address] Other Observations NOT REPORTED Normal NREQ [facility] Comment on above: Performed By: #### T ABA HERNADEZ, BMP ####[address] [place] [address] RBC Test strip #/vol (U) 0 TO 2 Normal 0-2 [facility] Comment on above: Performed By: #### T ABA HERNADEZ, BMP ####[address] [place] [address] Trichomonas NOT REPORTED Normal NONE [facility] Comment on above: Performed By: #### T ABA HERNADEZ, BMP ####[address] [place] [address] Urine WBC's 0 TO 2 Normal 0-5 [facility] Comment on above: Performed By: #### T ABA HERNADEZ, BMP ####[address] [place] [address] Yeast NOT REPORTED Normal NONE [facility] Comment on above: Performed By: #### T ABA HERNADEZ, BMP ####[address] [place] [address] UA w/Reflex Cultureon 2017 Acetoacetic Acid,Ur Negative Normal NEG [facility] Comment on above: Performed By: #### T ABA HERNADEZ, BMP ####[address] [place] [address] Bilirubin, SemiQt,Ur Negative Normal NEG [facility] Comment on above: Performed By: #### T ABA HERNADEZ, BMP ####[address] [place] [address] Color YELLOW Normal YEL [facility] Comment on above: Performed By: #### T ABA HERNADEZ, BMP ####[address] [place] [address] Comment NOT REPORTED Normal [facility] Comment on above: Performed By: #### T SH, CDP, BMP ####[address] [place] [address] Glucose,Semi-qnt,Ur Negative Normal NEG [facility] Comment on above: Performed By: #### T SH, CDP, BMP ####[address] [place] [address] Hemoglobin, Ur Negative Normal NEG [facility] Comment on above: Performed By: #### T SH, CDP, BMP ####[address] [place] [address] Leuckocyte Esterase Negative Normal NEG [facility] Comment on above: Performed By: #### T SH, CDP, BMP ####[address] [place] [address] Nitrite,Ur Negative Normal NEG [facility] Comment on above: Performed By: #### T SH, CDP, BMP ####[address] [place] [address] PH,Ur 7.0 Normal 5.0-9.0 [facility] Comment on above: Performed By: #### T SH, CDP, BMP ####[address] [place] [address] Protein, Semi-qnt,Ur Negative Normal NEG [facility] Comment on above: Performed By: #### T SH, CDP, BMP ####[address] [place] [address] Spec. [place],Ur <1.005 Low 1.010-1.02 0 [facility] Comment on above: Performed By: #### T SH, CDP, BMP ####[address] [place] [address] Turbidity CLEAR Normal CLEAR [facility] Comment on above: Performed By: #### T SH, CDP, BMP ####[address] [place] [address] Urobilinogen,Ur Normal Normal NORM [facility] Comment on above: Performed By: #### T SH, CDP, BMP ####[address] [place] [address] Urinalysis,Microon 8 ----- Normal [facility] Comment on above: Performed By: #### T SH, CDP, BMP ####[address] [place] [address] Amorphous Sediment NOT REPORTED Normal NONE [facility] Comment on above: Performed By: #### T MARICARMEN, CDP, BMP ####[address] [place] [address] Bacteria NOT REPORTED Normal NONE [facility] Comment on above: Performed By: #### T MARICARMEN, CDP, BMP ####[address] [place] [address] Casts NOT REPORTED Normal [facility] Comment on above: Performed By: #### T MARICARMEN, CDP, BMP ####[address] [place] [address] Crystals NOT REPORTED Normal NONE [facility] Comment on above: Performed By: #### T MARICARMEN, CDP, BMP ####[address] [place] [address] Epithelial cells 0 TO 2 Normal 0-5 [facility] Comment on above: Performed By: #### T SH, CDP, BMP ####[address] [place] [address] Epithelial, Renal NOT REPORTED Normal 0 [facility] Comment on above: Performed By: #### T SH, CDP, BMP ####[address] [place] [address] Mucus Strands NOT REPORTED Normal NONE [facility] Comment on above: Performed By: #### T SH, CDP, BMP ####[address] [place] [address] Other Observations NOT REPORTED [facility] Comment on above: Performed By: #### T SH, CDP, BMP ####[address] , [place] [address] RBC Test strip #/vol (U) 0 TO 2 Normal 0-2 [facility] Comment on above: Performed By: #### T SH, ABA, BMP ####[address] [place] [address] Trichomonas NOT REPORTED Normal NONE [facility] Comment on above: Performed By: #### T MARICARMEN, CDP, BMP ####[address] [place] [address] Urine WBC's 0 TO 2 Normal 0-5 [facility] Comment on above: Performed By: #### T MARICARMEN, ABA, BMP ####[address] , [place] [address] Yeast NOT REPORTED Normal [facility] Comment on above: Performed By: #### T MARICARMEN, CDP, BMP ####[address] [place] [address] CBC with Diffon 06-15-2018 Abs. Basophil <0.03 Normal 0.00-0.20 [facility] Comment on above: Performed By: #### T SH, CDP, BMP ####[address] [place] [address] Abs.Imm.Granulocyte 0.03 k/uL Normal 0.00-0.30 [facility] Comment on above: Performed By: #### T SH, CDP, BMP ####[address] , [facility]83 Abs.Neutrophil (Seg) 3.87 k/uL Normal 1.50-8.10 [facility] Comment on above: Performed By: #### T ABA HERNADEZ, BMP ####[address] , [place] [address] Auto Diff Performed NOT REPORTED Normal [facility] Comment on above: Performed By: #### T ABA HERNADEZ, BMP ####[address] , [facility] Basophils/100 WBC Auto (Bld) 0 % Normal 0-2 [facility] Comment on above: Performed By: #### T ABA HERNADEZ, BMP ####[address] [place] [address] Eosinophils Auto #/vol (Bld) 0.34 10*3/uL Normal 0.00-0.44 [facility] Comment on above: Performed By: #### T ABA HERNADEZ, BMP ####[address] , [place] [address] Eosinophils/100 WBC Auto (Bld) 6 % High 1-4 [facility] Comment on above: Performed By: #### T ABA HERNADEZ, BMP ####[address] [place] [address] Erythrocyte distribution width Auto Ratio (RBC) 12.9 % Normal 11.8-14.4 [facility] Comment on above: Performed By: #### T ABA HERNADEZ, BMP ####[address] , [facility]83 Hematocrit Auto Volume Fraction (Bld) 40.4 % Low 40.7-50.3 [facility] Comment on above: Performed By: #### T ABA HERNADEZ, BMP ####[address] [place] [address] Hemoglobin mass conc (Bld) 14.0 g/dL Normal 13.0-17.0 [facility] Comment on above: Performed By: #### T ABA HERNADEZ, BMP ####[address] [place] [address] Immature granulocytes #/vol (Bld) 1 % High 0 [facility] Comment on above: Performed By: #### T ABA HERNADEZ, BMP ####[address] , [place] [address] Lymphocytes Auto #/vol (Bld) 1.24 10*3/uL Normal 1.10-3.70 [facility] Comment on above: Performed By: #### T ABA HERNADEZ, BMP ####[address] [place] [address] Lymphocytes/100 WBC Auto (Bld) 21 % Low 24-43 [facility] Comment on above: Performed By: #### T ABA HERNADEZ, BMP ####[address] , [place] [address] MCH Auto Entitic mass (RBC) 33.7 pg High 25.2-33.5 [facility] Comment on above: Performed By: #### T ABA HERNADEZ, BMP ####[address] [place] [address] MCHC Auto mass conc (RBC) 34.7 g/dL Normal 28.4-34.8 [facility] Comment on above: Performed By: #### T ABA HERNADEZ, BMP ####[address] , [place] [address] MCV Auto Entitic volume (RBC) 97.1 fL Normal 82.6-102.9 [facility] Comment on above: Performed By: #### T ABA HERNADEZ, BMP ####[address] [place] [address] Monocytes Auto #/vol (Bld) 0.46 10*3/uL Normal 0.10-1.20 [facility] Comment on above: Performed By: #### T ABA HERNADEZ, BMP ####[address] [place] [address] Monocytes/100 WBC Auto (Bld) 8 % Normal 3-12 [facility] Comment on above: Performed By: #### T ABA HERNADEZ, BMP ####[address] [place] [address] Neutrophil (Seg) 64 % Normal 36-65 [facility] Comment on above: Performed By: #### T ABA HERNADEZ, BMP ####[address] [place] [address] NRBC Automated 0.0 per 100 WBC Normal 0.0 [facility] Comment on above: Performed By: #### T ABA HERNADEZ, BMP ####[address] [place] [address] Platelet mean volume Auto Entitic volume (Bld) 9.0 fL Normal 8.1-13.5 [facility] Comment on above: Performed By: #### T ABA HERNADEZ, BMP ####[address] [place] [address] Platelets Auto #/vol (Bld) NOT REPORTED Normal [facility] Comment on above: Performed By: #### T ABA HERNADEZ, BMP ####[address] [place] [address] Platelets Auto #/vol (Bld) 157 10*3/uL Normal 138-453 [facility] Comment on above: Performed By: #### T ABA HERNADEZ, BMP ####[address] [place] [address] RBC Auto #/vol (Bld) 4.16 10*6/uL Low 4.21-5.77 [facility] Comment on above: Performed By: #### T ABA HERNADEZ, BMP ####[address] [place] [address] RBC morphology finding Nom (Bld) NOT REPORTED Normal [facility] Comment on above: Performed By: #### T ABA HERNADEZ, BMP ####[address] [place] [address] WBC Auto #/vol (Bld) 6.0 10*3/uL Normal 3.5-11.3 [facility] Comment on above: Performed By: #### T ABA HERNADEZ, BMP ####[address] [place] [address] WBC Morphology NOT REPORTED Normal [facility] Comment on above: Performed By: #### T ABA HERNADEZ, BMP ####[address] [place] [address] Comp Metabol,Fastingon 06-15 (cont.) Normal [facility] Comment on above: Result Comment: Aver age GFR for 70 or more years old: 75 mL/min/1.73sq mChronic Kidney Disease: <60 mL/min/1.73sq mKidney failure: <15 mL/min/1.73sq meGFR calculated using average adult body mass. Additional eGFR calculator available at:http://www.Freespee/multiple_crcl_2012.htm Performed By: #### T ABA HERNADEZ, BMP ####[address] [place] [address] Albumin mass conc 4.0 g/dL Normal 3.5-5.2 [facility] Comment on above: Performed By: #### T ABA HERNADEZ, BMP ####[address] [place] [address] Albumin/Globulin mass ratio 1.5 {ratio} Normal 1.0-2.5 [facility] Comment on above: Performed By: #### T ABA HERNADEZ, BMP ####[address] [place] [address] Alkaline Phos 74 U/L Normal 40-129 [facility] Comment on above: Performed By: #### T MARICARMEN, CDP, BMP ####[address] [place] [address] ALT enzyme act/vol 10 U/L Normal 5-41 [facility] Comment on above: Performed By: #### T SH, CDP, BMP ####[address] [place] [address] Anion gap 3 molar conc 11 mmol/L Normal 9-17 [facility] Comment on above: Performed By: #### T SH, CDP, BMP ####[address] [place] [address] AST enzyme act/vol 15 U/L Normal <40 [facility] Comment on above: Performed By: #### T SH, CDP, BMP ####[address] [place] [address] Bilirubin Ql (U) 0.50 mg/dL Normal 0.3-1.2 [facility] Comment on above: Performed By: #### T MARICARMEN, CDP, BMP ####[address] [place] [address] BUN/CRE Ratio 9 Normal 9-20 [facility] Comment on above: Performed By: #### T MARICARMEN, CDP, BMP ####[address] [place] [address] Calcium mass conc 9.6 mg/dL Normal 8.6-10.4 [facility] Comment on above: Performed By: #### T SH, CDP, BMP ####[address] [place] [address] Chloride molar conc 102 mmol/L Normal 98-107 [facility] Comment on above: Performed By: #### T SH, CDP, BMP ####[address] [place] [address] CO2 molar conc 28 mmol/L Normal 20-31 [facility] Comment on above: Performed By: #### T SH, CDP, BMP ####[address] [place] [address] Creatinine mass conc 1.71 mg/dL High 0.70-1.20 [facility] Comment on above: Performed By: #### T SH, CDP, BMP ####[address] [place] [address] GFR, Amer 48 mL/min Low >60 [facility] Comment on above: Performed By: #### T SH, CDP, BMP ####[address] [place] [address] GFR,non Amer 40 mL/min Low >60 [facility] Comment on above: Performed By: #### T SH, CDP, BMP ####[address] [place] [address] Glucose mass conc 95 mg/dL Normal 70-99 [facility] Comment on above: Performed By: #### T SH, CDP, BMP ####[address] [place] [address] Potassium molar conc 4.3 mmol/L Normal 3.7-5.3 [facility] Comment on above: Performed By: #### T SH, CDP, BMP ####[address] [place] [address] Protein mass conc 6.7 g/dL Normal 6.4-8.3 [facility] Comment on above: Performed By: #### T SH, CDP, BMP ####[address] [place] [address] Sodium molar conc 141 mmol/L Normal 135-144 [facility] Comment on above: Performed By: #### T SH, CDP, BMP ####[address] [place] [address] Staging: Normal [facility] Comment on above: Result Comment: Stag e 1: Some kidney damage normal GFRStage 2: Mild kidney damage GFR 60-89Stage 3: Moderate kidney damage GFR 30-59Stage 4: Severe kidney damage GFR 15-29Stage 5: Severe kidney damage GFR <15ESRD - chronic treatment by dialysis or transplant Performed By: #### T ABA HERNADEZ, BMP ####[address] [place] [address] Urea nitrogen mass conc 15 mg/dL Normal 8-23 [facility] Comment on above: Performed By: #### T MARICARMEN, ABA, BMP ####[address] [place] [address] Lipid Prof, Fastingon 2017 Cholesterol in HDL mass conc 53 mg/dL Normal >40 [facility] Comment on above: Result Comment: HDL Guidelines: <40 Undesirable 40-59 Borderline >59 Desirable Performed By: #### T ABA HERNADEZ, BMP ####[address] [place] [address] Cholesterol in LDL mass conc 55 mg/dL Normal 0-130 [facility] Comment on above: Result Comment: LDL Guidelines: <100 Desirable 100-129 Near to/above Desirable 130-159 Borderline >159 UndesirableDirect (measured) LDL and calculated LDL are not interchangeable tests. Performed By: #### T ABA HERNADEZ, BMP ####[address] [place] [address] Cholesterol in VLDL mass conc NOT REPORTED Normal 1-30 [facility] Comment on above: Performed By: #### T MARICARMEN, ABA, BMP ####[address] [place] [address] Cholesterol mass conc 137 mg/dL Normal <200 [facility] Comment on above: Result Comment: Chol esterol Guidelines: <200 Desirable 200-240 Borderline >240 Undesirable Performed By: #### T MARICARMEN, ABA, BMP ####[address] [place] [address] Cholesterol.total/Chol esterol in HDL mass ratio 2.6 {ratio} Normal <5 [facility] Comment on above: Performed By: #### T ABA HERNADEZ, BMP ####[address] [place], [place] [phone] Triglyceride,Fasting 147 mg/dL Normal <150 [facility] Comment on above: Result Comment: Trig lyceride Guidelines: <150 Desirable 150- 199 Borderline 200-499 High >499 Very high Based on AHA Guidelines for fasting triglyceride, July 2012. Performed By: #### T ABA HERNADEZ, BMP ####[address] [place] [address] Thyroid Stim. Horm.on 2017 Thyrotropin Qn 0.43 m[IU]/L Normal 0.30-5.00 [facility] Comment on above: Performed By: #### T ABA HERNADEZ, BMP ####[address] [place], [place] [phone] Thyroxine, Freeon 06-15-2018 Thyroxine, Free 1.37 ng/dL Normal 0.93-1.70 [facility] Comment on above: Performed By: #### T ABA HERNADEZ, BMP ####[address] [place], [place] [address] Group A Strep DNAon 05-05-20 18 Group A Strep DNA Specimen Description .THROAT SWABSpecial Requests NOT REPORTEDDirect Exam Negative: Specimen negative for Streptococcus pyogenes by DNA amplification.Report Status FINAL 05/05/2018 Normal [facility] Comment on above: Performed By: #### G ASDNA ####[facility] [address] [place] [phone] [place], [place] [address] Strep Gr A Direct Agon 05-04 S. pyogenes Ag IA Ql (Unsp spec) Specimen Description .THROATSpecial Requests NOT REPORTEDDirect Exam Rapid Strep A negative. A negative Rapid Group A Strep Screen result does not rule out the possibility of Group A Streptococci in the specimen. A Group A strep DNA test will be performed. Report Status FINAL 05/04/2018 [facility] Comment on above: Performed By: #### S GPA ####[address] [place] [address] XR CHEST (2 VW)on 05-04-2018 Thyrotropin [...] OR VASCULAR CONGESTION.Interpreted by:FARRAH Shresthaigned by:Bijan Miranda MD05/04/inal result Normal [facility] H. pylori Antigenon 03-31-20 H. pylori Antigen Specimen Description .FECES Performed at [address] [place] [address] [phone] Special Requests NOT REPORTEDDirect Exam NEGATIVE Performed at [address] [id number] [phone] Report Status FINAL 03/31/2018 [facility] Comment on above: Performed By: #### F HPY ####[address] [phone] [place] [address] CT ABDOMEN PELVIS W IV CONTR [...] by:FARRAH Zelayaigned by:Jessa Garcia MD03/13/18inal result Normal [facility] Basic Metabolic Profon 03-12 (cont.) Normal [facility] Comment on above: Result Comment: Aver age GFR for 70 or more years old: 75 mL/min/1.73sq mChronic Kidney Disease: <60 mL/min/1.73sq mKidney failure: <15 mL/min/1.73sq meGFR calculated using average adult body mass. Additional eGFR calculator available at:http://www.Bizen.Cleanify/multiple_crcl_2012.htm Performed By: #### B MP ####[address] [place] [address] Anion gap 3 molar conc 12 mmol/L Normal 9-17 [facility] Comment on above: Performed By: #### B MP ####[address] [place] [address] BUN/CRE Ratio 13 Normal 9-20 [facility] Comment on above: Performed By: #### B MP ####[address] [place] [address] Calcium mass conc 9.2 mg/dL Normal 8.6-10.4 [facility] Comment on above: Performed By: #### B MP ####[address] [place] [address] Chloride molar conc 98 mmol/L Normal 98-107 [facility] Comment on above: Performed By: #### B MP ####[facility] [place] [address] CO2 molar conc 27 mmol/L Normal 20-31 [facility] Comment on above: Performed By: #### B MP ####[facility] [place] [address] Creatinine mass conc 1.44 mg/dL High 0.70-1.20 [facility] Comment on above: Performed By: #### B MP ####[facility] [place] [address] GFR, Amer 59 mL/min Low >60 [facility] Comment on above: Performed By: #### B MP ####[address] [place] [address] GFR,non Amer 48 mL/min Low >60 [facility] Comment on above: Performed By: #### B MP ####[address] [place] [address] Glucose mass conc 98 mg/dL Normal 70-99 [facility] Comment on above: Performed By: #### B MP ####[address] [place] [address] Potassium molar conc 4.4 mmol/L Normal 3.7-5.3 [facility] Comment on above: Performed By: #### B MP ####[address] [place] [address] Sodium molar conc 137 mmol/L Normal 135-144 [facility] Comment on above: Performed By: #### B MP ####[address] [place] [address] Staging: Normal [facility] Comment on above: Result Comment: Stag e 1: Some kidney damage normal GFRStage 2: Mild kidney damage GFR 60-89Stage 3: Moderate kidney damage GFR 30-59Stage 4: Severe kidney damage GFR 15-29Stage 5: Severe kidney damage GFR <15ESRD - chronic treatment by dialysis or transplantPerformed at [address] [place], [place] [id number] [phone] Performed By: #### B MP ####[address] , [place] [phone] Urea nitrogen mass conc 18 mg/dL Normal 8-23 [facility] Comment on above: Performed By: #### B MP ####[address] , [place] [address] Basic Metabolic Profon 10-14 (cont.) Normal [facility] Comment on above: Result Comment: Aver age GFR for 70 or more years old: 75 mL/min/1.73sq mChronic Kidney Disease: <60 mL/min/1.73sq mKidney failure: <15 mL/min/1.73sq meGFR calculated using average adult body mass. Additional eGFR calculator available at:http://www.Bizen.Cleanify/multiple_crcl_2012.htm Performed By: #### T ABA HERNADEZ, BMP ####[address] [place] [address] Anion gap 3 molar conc 13 mmol/L Normal 9-17 [facility] Comment on above: Performed By: #### T ABA HERNADEZ, BMP ####[address] [place] [address] BUN/CRE Ratio 16 Normal 9-20 [facility] Comment on above: Performed By: #### T ABA HERNADEZ, BMP ####[address] [place] [address] Calcium mass conc 9.2 mg/dL Normal 8.6-10.4 [facility] Comment on above: Performed By: #### T ABA HERNADEZ, BMP ####[address] [place] [address] Chloride molar conc 94 mmol/L Low 98-107 [facility] Comment on above: Performed By: #### T ABA HERNADEZ, BMP ####[address] [place] [address] CO2 molar conc 26 mmol/L Normal 20-31 [facility] Comment on above: Performed By: #### T ABA HERNADEZ, BMP ####[address] [place] [address] Creatinine mass conc 1.60 mg/dL High 0.70-1.20 [facility] Comment on above: Performed By: #### T ABA HERNADEZ, BMP ####[address] [place] [address] GFR, Amer 52 mL/min Low >60 [facility] Comment on above: Performed By: #### T ABA HERNADEZ, BMP ####[address] [place] [address] GFR,non Amer 43 mL/min Low >60 [facility] Comment on above: Performed By: #### T ABA HERNADEZ, BMP ####[address] [place] [address] Glucose mass conc 108 mg/dL High 70-99 [facility] Comment on above: Performed By: #### T ABA HERNADEZ, BMP ####[address] [place] [address] Potassium molar conc 3.9 mmol/L Normal 3.7-5.3 [facility] Comment on above: Performed By: #### T ABA HERNADEZ, BMP ####[address] [place] [address] Sodium molar conc 133 mmol/L Low 135-144 [facility] Comment on above: Performed By: #### T ABA HERNADEZ, BMP ####[address] [place] [address] Staging: Normal [facility] Comment on above: Result Comment: Stag e 1: Some kidney damage normal GFRStage 2: Mild kidney damage GFR 60-89Stage 3: Moderate kidney damage GFR 30-59Stage 4: Severe kidney damage GFR 15-29Stage 5: Severe kidney damage GFR <15ESRD - chronic treatment by dialysis or transplantPerformed at [address] [place] [address] Performed By: #### T MARICARMEN, ABA, BMP ####[address] , [facility]83 Urea nitrogen mass conc 25 mg/dL High 8- [facility] Comment on above: Performed By: #### T ABA HERNADEZ, BMP ####[address] , [place] [address] CBC with Diffon 10-14-2017 Abs. Basophil 0.00 k/uL Normal 0.0-0.2 [facility] Comment on above: Performed By: #### T ABA HERNADEZ, BMP ####[address] [place] [address] Abs.Imm.Granulocyte NOT REPORTED Normal 0.00-0.30 [facility] Comment on above: Performed By: #### T ABA HERNADEZ, BMP ####[address] , [place] [address] Abs.Neutrophil (Seg) 8.99 k/uL High 1.8-7.7 [facility] Comment on above: Performed By: #### T MARICARMEN, CDP, BMP ####[address] , [place] [address] Auto Diff Performed NOT REPORTED Normal [facility] Comment on above: Performed By: #### T MARICARMEN, CDP, BMP ####[address] [place] [id number] Basophils/100 WBC Auto (Bld) 0 % Normal 0-2 [facility] Comment on above: Performed By: #### T ABA HERNADEZ, BMP ####[address] [place] [address] Eosinophils Auto #/vol (Bld) 0.21 10*3/uL Normal 0.0-0.4 [facility] Comment on above: Performed By: #### T ABA HERNADEZ, BMP ####[address] [place] [address] Eosinophils/100 WBC Auto (Bld) 2 % Normal 0-8 [facility] Comment on above: Performed By: #### T ABA HERNADEZ, BMP ####[address] [place] [address] Erythrocyte distribution width Auto Ratio (RBC) 14.0 % Normal 12.1-15.2 [facility] Comment on above: Performed By: #### T ABA HERNADEZ, BMP ####[address] , [place] [address] Hematocrit Auto Volume Fraction (Bld) 44.7 % Normal 41-53 [facility] Comment on above: Performed By: #### T ABA HERNADEZ, BMP ####[address] [place] [address] Hemoglobin mass conc (Bld) 14.6 g/dL Normal 13.5-17.0 [facility] Comment on above: Performed By: #### T ABA HERNADEZ, BMP ####[address] [place] [address] Immature granulocytes #/vol (Bld) NOT REPORTED Normal 0 [facility] Comment on above: Performed By: #### T ABA HERNADEZ, BMP ####[address] [place] [address] Lymphocytes Auto #/vol (Bld) 1.18 10*3/uL Normal 1.0-4.8 [facility] Comment on above: Performed By: #### T SH, CDP, BMP ####[address] , [place] [address] Lymphocytes/100 WBC Auto (Bld) 11 % Low 24-44 [facility] Comment on above: Performed By: #### T SH, CDP, BMP ####[address] , [facility]83 MCH Auto Entitic mass (RBC) 32.2 pg Normal 26-34 [facility] Comment on above: Performed By: #### T MARICARMEN, CDP, BMP ####[address] , [place] [address] MCHC Auto mass conc (RBC) 32.6 g/dL Normal 31-37 [facility] Comment on above: Performed By: #### T ABA HERNADEZ, BMP ####[address] [place] [address] MCV Auto Entitic volume (RBC) 98.7 fL Normal 80-100 [facility] Comment on above: Performed By: #### T ABA HERNADEZ, BMP ####[address] , [place] [address] Monocytes Auto #/vol (Bld) 0.32 10*3/uL Normal 0.0-1.0 [facility] Comment on above: Performed By: #### T ABA HERNADEZ, BMP ####[address] , [facility]83 Monocytes/100 WBC Auto (Bld) 3 % Normal 0-12 [facility] Comment on above: Performed By: #### T ABA HERNADEZ, BMP ####[address] [place] [address] Morphology Interp Azar (Bld) Normal Normal [facility] Comment on above: Result Comment: Perf ormed at [address] [place], [place] [address] Performed By: #### T MARICARMEN, CDP, BMP ####[address] [place] [address] Neutrophil (Seg) 84 % High 36-66 [facility] Comment on above: Performed By: #### T SH, CDP, BMP ####[address] [place] [address] Platelet mean volume Auto Entitic volume (Bld) 7.3 fL Normal 6.0-12.0 [facility] Comment on above: Performed By: #### T MARICARMEN, CDP, BMP ####[address] [place] [address] Platelets Auto #/vol (Bld) NOT REPORTED Normal [facility] Comment on above: Performed By: #### T MARICARMEN CDP, BMP ####[address] [place] [address] Platelets Auto #/vol (Bld) 216 10*3/uL Normal 140-450 [facility] Comment on above: Performed By: #### T ABA HERNADEZ, BMP ####[address] [place] [address] RBC Auto #/vol (Bld) 4.53 10*6/uL Normal 4.5-5.9 [facility] Comment on above: Performed By: #### T MARICARMEN, CDP, BMP ####[address] [place] [address] RBC morphology finding Nom (Bld) NOT REPORTED Normal [facility] Comment on above: Performed By: #### T SH, CDP, BMP ####[address] [place] [address] WBC Auto #/vol (Bld) 10.7 10*3/uL Normal 3.5-11.0 [facility] Comment on above: Performed By: #### T MARICARMEN, CDP, BMP ####[address] [place], [place] [id number] WBC Morphology NOT REPORTED Normal [facility] Comment on above: Performed By: #### T AAB HERNADEZ, BMP ####[address] [id number] Thyroid Stim. Horm.on 2016 Thyrotropin Qn 0.23 m[IU]/L Low 0.30-5.00 [facility] Comment on above: Result Comment: Perf ormed at [address] [place] [address] Performed By: #### T ABA HERNADEZ, BMP ####[address] [place] [address] PSA, [employer] 10-01-2017 Prostatic Spec. Ag 0.42 ug/L Normal <4.1 [facility] Comment on above: Result Comment: The [employer]onte ECLIA assay is used. Results obtained with different assay methods cannot be used interchangeably.Performed at [address] [place] [id number] [phone] Performed By: #### P SAD ####[address] [id number] Social History Date Type Detail Facility Start: 10-18-2023 Tobacco smoking status NHIS Never smoked tobacco (finding) [facility] Start: 1945 Sex Assigned At Male F [facility] Sex Assigned At Sex Assigned At [facility] [employer] Other Vital Signs Date Time Vital Sign Value Performing Clinician Facility 10-18-2023 12:16-0500 Heart rate 84 /min [facility] 10-18-2023 11:43-0500 Body height 185.42 cm [facility] 10-18-2023 11:43-0500 Body temperature 98.3 [degF] [facility] 10-18-2023 11:43-0500 Body weight 90.9 kg [facility] 10-18-2023 11:43-0500 Diastolic blood pressure 66 mm[Hg] [facility] 10-18-2023 11:43-0500 Respiratory rate 21 /min [facility] 10-18-2023 11:43-0500 SaO2% (BldA) [Mass fraction] 97 % [facility] 10-18-2023 11:43-0500 Systolic blood pressure 142 mm[Hg] [facility] 10-18-2023 10:20-0500 Body height 185.42 cm Brittany Amador Other [facility] Other 10-18-2023 10:20-0500 Body mass index (BMI) [Ratio] 26.36 kg/m2 Brittany Amador Other [facility] Other 10-18-2023 10:20-0500 Body temperature 98.9 [degF] Brittany Amador Other [facility] Other 10-18-2023 10:20-0500 Body weight 90.63 kg Brittany Amador Other [facility] Other 10-18-2023 10:20-0500 Respiratory rate 18 /min Brittany Amador Other [facility] Other 10-18-2023 10:20-0500 SaO2% (BldA) [Mass fraction] 99 % Brittany Amador Other [facility] Other Evaluation note 10-18-2023 Note Date & Type Note Facility 10-18-2023 Evaluation note Encounter Date Diagnosis Assessment Notes Sep, Facial swelling (ICD-10 - R22.0) Patient is referred to the emergency room due to failed outpatient therapy of 2 different antibiotics, worsening swelling of his face. [facility] Other Discharge summary note 02-07-2022 Note Date & Type Note Facility 02-07-2022 Note MR#: [id number] I [facility] Pt. Name: Niels Mccullough Jr Admitted: [...] who presented to the emergency department at [facility] as a transfer from an outside hospital [...] patient [facility] on [facility] 07, 2022. Plan of [...] P/Jennifer Yost MD Date Trans: 02/07/2022 12:59 P/mmo [id number] cc: Thee Mcguire D.O. [facility] [place] [address] [facility] Evaluation note Note Date & Type Note Facility Evaluation note No assessment information [facility]: History general Narrative [...] Hospitalization History ADMITTED FOR LOW SODIUM 2017 [facility] Other Summary Purpose Family History No Family [...] section and content) DATE CREATED AUTHOR 09/15/2018 [facility] DATE CREATED AUTHOR AUTHOR'S ORGANIZ ATION 10/03/2018 [facility] DATE CREATED AUTHOR AUTHOR'S ORGANIZ ATION 04/10/2022 [facility] DATE CREATED AUTHOR AUTHOR'S ORGANIZ ATION 03/11/2023 [facility] DATE CREATED AUTHOR AUTHOR'S ORGANIZ ATION 12/05/2023 [facility] DATE CREATED AUTHOR AUTHOR'S ORGANIZ ATION 02/27/2024 [facility] Care Teams (unrecognized sec tion and content) [...] BE BASED ON THE PRIMARY CLINICAL RECORDS. [employer] provides no warranty or guarantee of the accuracy or completeness of information in this document.
--- NOTE | 2024-04-10 06:17 | ED.BACK1 ---
Documented by User: Siva Rehman MD 04/10/24 19:33 HPI HPI - Back Pain/Injury General Chief Complaint: Urogenital-Male Stated Complaint: BACK PAIN Time Seen by Provider: 04/10/24 06:16 Source: patient Mode of arrival: ambulance Limitations: no limitations History of Present Illness HPI Narrative: patient has past history of DVT and takes coumadin. Long history of back pain. States his physician gives him injections in his back over the past couple of years. Last time he had injections was this past Friday. States the injection did not help and now his sciatica pain is worse. Denies weakness of the RLE. Also states he is on flomax and a water pill to help him to urinate. Does not feel they are working as well in the past couple of days. Not passing much urine and worried about his kidney. No fever. legs do not feel weak. laying on the left hip to lessen right sciatica pain BP is elevated. Did not take his BP medication. Denies headache or dizziness Related Data Home Medications ?Medication ?Instructions ?Recorded ?Confirmed carvedilol 6.25 mg tablet 6.25 mg PO DAILY 06/02/23 04/10/24 duloxetine 60 mg capsule,delayed 60 mg PO QAM 06/02/23 04/10/24 release dutasteride 0.5 mg capsule 0.5 mg PO DAILY 06/02/23 04/10/24 lactulose 10 gram/15 mL oral 15 ml PO DAILY 06/02/23 04/10/24 solution (Constulose) liothyronine 5 mcg tablet 5 mcg PO DAILY 06/02/23 04/10/24 magnesium oxide 400 mg (241.3 mg 400 mg PO DAILY 06/02/23 04/10/24 magnesium) tablet montelukast 10 mg tablet 10 mg PO DAILY 06/02/23 04/10/24 pantoprazole 20 mg tablet,delayed 20 mg PO DAILY 06/02/23 04/10/24 release rosuvastatin 5 mg tablet 5 mg PO DAILY 06/02/23 04/10/24 tamsulosin 0.4 mg capsule 0.4 mg PO BID 06/02/23 04/10/24 warfarin 5 mg tablet 5 mg PO DAILY 06/02/23 04/10/24 baclofen 10 mg tablet 10 mg PO BEDTIME 11/28/23 11/28/23 furosemide 40 mg tablet 40 mg PO DAILY 11/28/23 04/10/24 trazodone 50 mg tablet 50 mg PO BEDTIME 03/21/24 04/10/24 Previous Rx's ?Medication ?Instructions ?Recorded hydroxyzine HCl 25 mg tablet 25 mg PO TID PRN itching #20 tabs 05/25/23 methylprednisolone 4 mg tablets in 4 mg PO DAILY #21 ea 04/10/24 a dose pack (Medrol (Codey)) tramadol 50 mg tablet 50 mg PO BID PRN pain #6 tabs 04/10/24 Allergies Allergy/AdvReac Type Severity Reaction Status Date / Time aspirin Allergy Unknown Verified 05/25/23 09:32 cephalexin [From Keflex] Allergy Unknown Verified 05/25/23 09:32 codeine Allergy Unknown Verified 05/25/23 09:32 indomethacin [From Indocin] Allergy Unknown Verified 05/25/23 09:32 metoclopramide [From Reglan] Allergy Unknown Verified 05/25/23 09:32 minocycline Allergy Unknown Verified 05/25/23 09:32 Penicillins Allergy Unknown Verified 05/25/23 09:32 Sulfa (Sulfonamide Allergy Unknown Verified 05/25/23 09:32 Antibiotics) tetracycline Allergy Unknown Verified 05/25/23 09:32 erytromycin ethylsuccinate Allergy Unknown Uncoded 05/25/23 09:32 Opioid HPI Opioid Management Most Recent Opioid Data: Last Pain Scale 10 04/10/24 06:47 Last ED Pain Assessment 04/10/24 08:17 Last MAR Pain Assessment 04/10/24 06:47 Review of Systems ROS Status of ROS 10 or more systems reviewed and unremarkable except as noted in history and below [facility] Social History Smoking status: Never smoker Exam Constitutional Vital Signs, click to edit/add: Last Vital Signs Temp 98.7 F 04/10/24 05:55 Pulse 77 04/10/24 10:15 Resp 16 04/10/24 10:15 BP 154/82 H 04/10/24 10:15 Pulse Ox 99 04/10/24 10:15 O2 Del Method Room Air 04/10/24 05:55 Common normals: no apparent distress (mod distress), oriented x3, alert and well nourished HENNM Common normals: normocephalic Eye Common normals: EOMs intact bilaterally and conjunctivae normal Respiratory Common normals: normal respiratory effort, no retractions and no use of accessory muscles Cardio Common normals: regular rate, regular rhythm, S1 normal heart sound and S2 normal heart sound GI Common normals: Normal to inspection, nondistended, normoactive bowel sounds present, soft to palpation and non-tender Back & Pelvis Other: right SI tenderness that reprodues pain Extremity Common normals: normal to inspection and full ROM Neuro Common normals: oriented x3, CN's II-XII intact bilaterally, moves all extremities and no focal motor deficits Psych Appearance: grossly normal Course Vital Signs Vital signs: Vital Signs Temperature 98.7 F 04/10/24 05:55 Pulse Rate 83 04/10/24 05:55 Respiratory Rate 16 04/10/24 05:55 Blood Pressure 218/92 H 04/10/24 05:55 Pulse Oximetry 98 04/10/24 05:55 Oxygen Delivery Method Room Air 04/10/24 05:55 Temperature 98.7 F 04/10/24 05:55 Pulse Rate 77 04/10/24 10:15 Respiratory Rate 16 04/10/24 10:15 Blood Pressure 154/82 H 04/10/24 10:15 Pulse Oximetry 99 04/10/24 10:15 Oxygen Delivery Method Room Air 04/10/24 05:55 MDM - Back Pain/Injury MDM Narrative Medical decision making narrative: patient presents with complicated history of right sciatica pain for which he has received injection on and off for a few years. Last injection 5 days ago. States did not help and now pain is worse. Also complaining of decreased urine output and does not feel his flomax is working. Normal bowel movement. Pain radiates down the right lower extremity and he denies leg weakness. BP is elevated due to pain and him not taking him BP medication. labs ordered along with medication for his pain and BP. bladder scan also ordered. care transferred to Dr Perdomo at shift change Lab Data Labs: Lab Results 04/10/24 04/10/24 Range/Units 05:55 07:10 WBC 6.2 (4.0-11.0) 10^3/uL RBC 3.04 L (4.70-6.10) 10^6/uL Hgb 8.7 L (14.0-18.0) g/dL Hct 27.0 L (42.0-54.0) % MCV 88.8 (80.0-94.0) fL MCH 28.6 (25.9-34.0) pg MCHC 32.2 (29.9-35.2) g/dL RDW 16.6 H (11.0-15.0) % Plt Count 194 (150-450) 10^3/uL MPV 9.5 (9.5-13.5) fL Neut % (Auto) 66.7 (43.0-75.0) % Lymph % (Auto) 18.1 L (20.5-60.0) % [place] % (Auto) 11.5 (1.7-12.0) % Eos % (Auto) 2.9 (0.9-7.0) % Baso % (Auto) 0.5 (0.2-2.0) % Neut # (Auto) 4.1 (1.4-6.5) 10^3/uL Lymph # (Auto) 1.1 L (1.2-3.8) 10^3/uL [place] # (Auto) 0.7 (0.3-0.8) 10^3/uL Eos # (Auto) 0.2 (0.0-0.7) 10^3/uL Baso # (Auto) 0.0 (0.0-0.1) 10^3/uL Abs Immat Gran (auto) 0.02 (0.00-0.03) 10^3/uL Imm/Tot Granulo (auto) 0.3 (0.0-0.5) % PT 26.1 H (9.0-11.6) sec INR 2.72 Sodium 138 (136-145) mmol/L Potassium 3.6 (3.5-5.1) mmol/L Chloride 99 (98-107) mmol/L Carbon Dioxide 27.6 (21.0-32.0) mmol/L Anion Gap 15.0 BUN 31.0 H (7.0-18.0) mg/dL Creatinine 2.33 H (0.70-1.30) mg/dL Est GFR ( Amer) 33 L (>=60) Est GFR (Non-Af Amer) 27 L (>=60) BUN/Creatinine Ratio 13.3 Glucose 101 (74-106) mg/dL Lactate 0.7 (0.4-2.0) mmol/L Calcium 8.2 L (8.5-10.1) mg/dL Troponin I High Sens 22.4 (4.0-76.1) pg/mL Urine Color Lt. yellow (YELLOW) Urine Clarity Clear (CLEAR) Urine pH 6.0 (5.0-9.0) Ur Specific [place] <=1.005 A (1.005-1.025) Urine Protein Negative (NEG/TRACE) mg/dL Urine Glucose (UA) Negative (NEGATIVE) mg/dL Urine Ketones Negative (NEGATIVE) mg/dL Urine Occult Blood Negative (NEGATIVE) Urine Nitrite Negative (NEGATIVE) Urine Bilirubin Negative (NEGATIVE) Urine Urobilinogen 0.2 (0.2-1.0) EU/dL Ur Leukocyte Esterase Negative (NEGATIVE) Discharge Plan Discharge Stand Alone Forms: Portal Instructions Chief Complaint: Urogenital-Male Clinical Impression: Hypertensive urgency, Right sciatic nerve pain, Benign prostatic hyperplasia (BPH) with straining on urination Patient Disposition: Home, Self-Care Time of Disposition Decision: 08:38 Condition: Good Mode of Transportation: Private Vehicle Prescriptions / Home Meds: New tramadol 50 mg tablet 50 mg PO BID PRN (Reason: pain) Qty: 6 0RF methylprednisolone [Medrol (Codey)] 4 mg tablets,dose pack 4 mg PO DAILY Qty: 21 0RF Rx Instructions: TAKE PER DOSEPAK INSTRUCTIONS No Action trazodone 50 mg tablet 50 mg PO BEDTIME hydroxyzine HCl 25 mg tablet 25 mg PO TID PRN (Reason: itching) Qty: 20 0RF carvedilol 6.25 mg tablet 6.25 mg PO DAILY duloxetine 60 mg capsule,delayed release(DR/EC) 60 mg PO QAM dutasteride 0.5 mg capsule 0.5 mg PO DAILY lactulose [Constulose] 10 gram/15 mL solution 15 ml PO DAILY liothyronine 5 mcg tablet 5 mcg PO DAILY magnesium oxide 400 mg (241.3 mg magnesium) tablet 400 mg PO DAILY montelukast 10 mg tablet 10 mg PO DAILY pantoprazole 20 mg tablet,delayed release (DR/EC) 20 mg PO DAILY rosuvastatin 5 mg tablet 5 mg PO DAILY tamsulosin 0.4 mg capsule 0.4 mg PO BID warfarin 5 mg tablet 5 mg PO DAILY baclofen 10 mg tablet 10 mg PO BEDTIME furosemide 40 mg tablet 40 mg PO DAILY Print Language: Kenyan Instructions: Hypertensive Crisis (ED), Back Pain (ED) Additional Instructions: Call the office of your primary care doctor to arrange for follow-up within the above-stated timeframe. Follow-up with your primary care doctor about this ED visit. You should review your labs, imaging, and diagnoses from this ED visit with your primary care physician. There may be non-emergent findings that need further evaluation. If you were prescribed medications you should discuss possible side-effects and drug interactions with your pharmacist. Call 911 or go to the nearest Emergency Department if you develop any new or worsening symptoms. Seek immediate medical attention if you develop: increasing pain, numbness, tingling, weakness, loss of motion in your arms or legs, loss of control of your urine or stool, fever, abdominal pain, chest pain, shortness of breath, or any new or worsening symptoms. If you are unable to urinate for greater than 6 hours or having increasing abdominal pain return to the ED. Follow-up with whomever manages your Warfarin closely and let them know you need an INR check this week. New medications have the potential to cause your INR level to become unstable. You should have your INR monitored closely over the next week. Return to the ED with any signs of bleeding. Referrals: TAHIR MCGUIRE MD [Primary Care Provider] - 1 week Harsha Benitez MD [Physician] - 1 week (Follow-up to discuss your difficulty initiating urine stream. ) Discharge Date/Time: 04/10/24 10:17 Documented by User: Navin Perdomo MD 04/10/24 08:50 HPI HPI - Back Pain/Injury General Chief Complaint: Urogenital-Male Stated Complaint: BACK PAIN Time Seen by Provider: 04/10/24 06:16 Related Data Home Medications ?Medication ?Instructions ?Recorded ?Confirmed carvedilol 6.25 mg tablet 6.25 mg PO DAILY 06/02/23 04/10/24 duloxetine 60 mg capsule,delayed 60 mg PO QAM 06/02/23 04/10/24 release dutasteride 0.5 mg capsule 0.5 mg PO DAILY 06/02/23 04/10/24 lactulose 10 gram/15 mL oral 15 ml PO DAILY 06/02/23 04/10/24 solution (Constulose) liothyronine 5 mcg tablet 5 mcg PO DAILY 06/02/23 04/10/24 magnesium oxide 400 mg (241.3 mg 400 mg PO DAILY 06/02/23 04/10/24 magnesium) tablet montelukast 10 mg tablet 10 mg PO DAILY 06/02/23 04/10/24 pantoprazole 20 mg tablet,delayed 20 mg PO DAILY 06/02/23 04/10/24 release rosuvastatin 5 mg tablet 5 mg PO DAILY 06/02/23 04/10/24 tamsulosin 0.4 mg capsule 0.4 mg PO BID 06/02/23 04/10/24 warfarin 5 mg tablet 5 mg PO DAILY 06/02/23 04/10/24 baclofen 10 mg tablet 10 mg PO BEDTIME 11/28/23 11/28/23 furosemide 40 mg tablet 40 mg PO DAILY 11/28/23 04/10/24 trazodone 50 mg tablet 50 mg PO BEDTIME 03/21/24 04/10/24 Previous Rx's ?Medication ?Instructions ?Recorded hydroxyzine HCl 25 mg tablet 25 mg PO TID PRN itching #20 tabs 05/25/23 methylprednisolone 4 mg tablets in 4 mg PO DAILY #21 ea 04/10/24 a dose pack (Medrol (Codey)) tramadol 50 mg tablet 50 mg PO BID PRN pain #6 tabs 04/10/24 Allergies Allergy/AdvReac Type Severity Reaction Status Date / Time aspirin Allergy Unknown Verified 05/25/23 09:32 cephalexin [From Keflex] Allergy Unknown Verified 05/25/23 09:32 codeine Allergy Unknown Verified 05/25/23 09:32 indomethacin [From Indocin] Allergy Unknown Verified 05/25/23 09:32 metoclopramide [From Reglan] Allergy Unknown Verified 05/25/23 09:32 minocycline Allergy Unknown Verified 05/25/23 09:32 Penicillins Allergy Unknown Verified 05/25/23 09:32 Sulfa (Sulfonamide Allergy Unknown Verified 05/25/23 09:32 Antibiotics) tetracycline Allergy Unknown Verified 05/25/23 09:32 erytromycin ethylsuccinate Allergy Unknown Uncoded 05/25/23 09:32 Opioid HPI Opioid Management Most Recent Opioid Data: Last Pain Scale 10 04/10/24 06:47 Last ED Pain Assessment 04/10/24 08:17 Last MAR Pain Assessment 04/10/24 06:47 [facility] Social History Smoking status: Never smoker Exam Constitutional Vital Signs, click to edit/add: Last Vital Signs Temp 98.7 F 04/10/24 05:55 Pulse 77 04/10/24 10:15 Resp 16 04/10/24 10:15 BP 154/82 H 04/10/24 10:15 Pulse Ox 99 04/10/24 10:15 O2 Del Method Room Air 04/10/24 05:55 Course Vital Signs Vital signs: Vital Signs Temperature 98.7 F 04/10/24 05:55 Pulse Rate 83 04/10/24 05:55 Respiratory Rate 16 04/10/24 05:55 Blood Pressure 218/92 H 04/10/24 05:55 Pulse Oximetry 98 04/10/24 05:55 Oxygen Delivery Method Room Air 04/10/24 05:55 Temperature 98.7 F 04/10/24 05:55 Pulse Rate 77 04/10/24 10:15 Respiratory Rate 16 04/10/24 10:15 Blood Pressure 154/82 H 04/10/24 10:15 Pulse Oximetry 99 04/10/24 10:15 Oxygen Delivery Method Room Air 04/10/24 05:55 MDM - Back Pain/Injury MDM Narrative Medical decision making narrative: patient presents with complicated history of right sciatica pain for which he has received injection on and off for a few years. Last injection 5 days ago. States did not help and now pain is worse. Also complaining of decreased urine output and does not feel his flomax is working. Normal bowel movement. Pain radiates down the right lower extremity and he denies leg weakness. BP is elevated due to pain and him not taking him BP medication. labs ordered along with medication for his pain and BP. bladder scan also ordered. care transferred to Dr Perdomo at shift change Signout note: Patient seen and evaluated at the bedside. His blood pressure has decreased significantly. His pain is significantly improved. He is able ambulated the department at his baseline. He did not have any urine retention. His renal function is at his baseline. Urinalysis without evidence of infection. Findings were discussed with the patient. He has acute on chronic back pain, typical for him. There is no signs of acute cord compressing lesion. Patient has had longstanding issues with BPH, has trouble initiating urine stream. He is not acutely retaining at this time. Recommended follow-up with Dr. Benitez. Discussed return precautions to the ER for this. Patient reports tramadol and steroids have worked for him in the past for his sciatica flares. These will be prescribed. Patient is on Coumadin however, we discussed the risk of unstable INR. We discussed return precautions for this. We discussed follow-up with his prescribing physician for early INR checked this week to ensure that he is not becoming supratherapeutic. Patient agrees with this plan. Return precautions were discussed. All questions were answered. The patient was discharged home. Navin Perdomo DO, [facility] Medical Records Attestation: I reviewed the patient's medical records. Lab Data Attestation: I reviewed the patient's lab results. Labs: Lab Results 04/10/24 04/10/24 Range/Units 05:55 07:10 WBC 6.2 (4.0-11.0) 10^3/uL RBC 3.04 L (4.70-6.10) 10^6/uL Hgb 8.7 L (14.0-18.0) g/dL Hct 27.0 L (42.0-54.0) % MCV 88.8 (80.0-94.0) fL MCH 28.6 (25.9-34.0) pg MCHC 32.2 (29.9-35.2) g/dL RDW 16.6 H (11.0-15.0) % Plt Count 194 (150-450) 10^3/uL MPV 9.5 (9.5-13.5) fL Neut % (Auto) 66.7 (43.0-75.0) % Lymph % (Auto) 18.1 L (20.5-60.0) % [place] % (Auto) 11.5 (1.7-12.0) % Eos % (Auto) 2.9 (0.9-7.0) % Baso % (Auto) 0.5 (0.2-2.0) % Neut # (Auto) 4.1 (1.4-6.5) 10^3/uL Lymph # (Auto) 1.1 L (1.2-3.8) 10^3/uL [place] # (Auto) 0.7 (0.3-0.8) 10^3/uL Eos # (Auto) 0.2 (0.0-0.7) 10^3/uL Baso # (Auto) 0.0 (0.0-0.1) 10^3/uL Abs Immat Gran (auto) 0.02 (0.00-0.03) 10^3/uL Imm/Tot Granulo (auto) 0.3 (0.0-0.5) % PT 26.1 H (9.0-11.6) sec INR 2.72 Sodium 138 (136-145) mmol/L Potassium 3.6 (3.5-5.1) mmol/L Chloride 99 (98-107) mmol/L Carbon Dioxide 27.6 (21.0-32.0) mmol/L Anion Gap 15.0 BUN 31.0 H (7.0-18.0) mg/dL Creatinine 2.33 H (0.70-1.30) mg/dL Est GFR ( Amer) 33 L (>=60) Est GFR (Non-Af Amer) 27 L (>=60) BUN/Creatinine Ratio 13.3 Glucose 101 (74-106) mg/dL Lactate 0.7 (0.4-2.0) mmol/L Calcium 8.2 L (8.5-10.1) mg/dL Troponin I High Sens 22.4 (4.0-76.1) pg/mL Urine Color Lt. yellow (YELLOW) Urine Clarity Clear (CLEAR) Urine pH 6.0 (5.0-9.0) Ur Specific [place] <=1.005 A (1.005-1.025) Urine Protein Negative (NEG/TRACE) mg/dL Urine Glucose (UA) Negative (NEGATIVE) mg/dL Urine Ketones Negative (NEGATIVE) mg/dL Urine Occult Blood Negative (NEGATIVE) Urine Nitrite Negative (NEGATIVE) Urine Bilirubin Negative (NEGATIVE) Urine Urobilinogen 0.2 (0.2-1.0) EU/dL Ur Leukocyte Esterase Negative (NEGATIVE) Discharge Plan Discharge Stand Alone Forms: Portal Instructions Chief Complaint: Urogenital-Male Clinical Impression: Hypertensive urgency, Right sciatic nerve pain, Benign prostatic hyperplasia (BPH) with straining on urination Patient Disposition: Home, Self-Care Time of Disposition Decision: 08:38 Condition: Good Mode of Transportation: Private Vehicle Prescriptions / Home Meds: New tramadol 50 mg tablet 50 mg PO BID PRN (Reason: pain) Qty: 6 0RF methylprednisolone [Medrol (Codey)] 4 mg tablets,dose pack 4 mg PO DAILY Qty: 21 0RF Rx Instructions: TAKE PER DOSEPAK INSTRUCTIONS No Action trazodone 50 mg tablet 50 mg PO BEDTIME hydroxyzine HCl 25 mg tablet 25 mg PO TID PRN (Reason: itching) Qty: 20 0RF carvedilol 6.25 mg tablet 6.25 mg PO DAILY duloxetine 60 mg capsule,delayed release(DR/EC) 60 mg PO QAM dutasteride 0.5 mg capsule 0.5 mg PO DAILY lactulose [Constulose] 10 gram/15 mL solution 15 ml PO DAILY liothyronine 5 mcg tablet 5 mcg PO DAILY magnesium oxide 400 mg (241.3 mg magnesium) tablet 400 mg PO DAILY montelukast 10 mg tablet 10 mg PO DAILY pantoprazole 20 mg tablet,delayed release (DR/EC) 20 mg PO DAILY rosuvastatin 5 mg tablet 5 mg PO DAILY tamsulosin 0.4 mg capsule 0.4 mg PO BID warfarin 5 mg tablet 5 mg PO DAILY baclofen 10 mg tablet 10 mg PO BEDTIME furosemide 40 mg tablet 40 mg PO DAILY Print Language: [place] Instructions: Hypertensive Crisis (ED), Back Pain (ED) Additional Instructions: Call the office of your primary care doctor to arrange for follow-up within the above-stated timeframe. Follow-up with your primary care doctor about this ED visit. You should review your labs, imaging, and diagnoses from this ED visit with your primary care physician. There may be non-emergent findings that need further evaluation. If you were prescribed medications you should discuss possible side-effects and drug interactions with your pharmacist. Call 911 or go to the nearest Emergency Department if you develop any new or worsening symptoms. Seek immediate medical attention if you develop: increasing pain, numbness, tingling, weakness, loss of motion in your arms or legs, loss of control of your urine or stool, fever, abdominal pain, chest pain, shortness of breath, or any new or worsening symptoms. If you are unable to urinate for greater than 6 hours or having increasing abdominal pain return to the ED. Follow-up with whomever manages your Warfarin closely and let them know you need an INR check this week. New medications have the potential to cause your INR level to become unstable. You should have your INR monitored closely over the next week. Return to the ED with any signs of bleeding. Referrals: TAHIR MCGUIRE MD [Primary Care Provider] - 1 week Harsha Benitez MD [Physician] - 1 week (Follow-up to discuss your difficulty initiating urine stream. ) Discharge Date/Time: 04/10/24 10:17
[2024-04-10 06:34] LABS: Basophils Percent Auto 0.5 % (0.2-2.0); Eosinophils Absolute Auto 0.2 10^3/uL (0.0-0.7); Eosinophils Percent Auto 2.9 % (0.9-7.0); Hemoglobin 8.7 g/dL (14.0-18.0); Immature Granulocytes Abs Auto 0.02 10^3/uL (0.00-0.03); Immature Granulocytes Pct Auto 0.3 % (0.0-0.5); Lymphocytes Absolute Auto 1.1 10^3/uL (1.2-3.8); Lymphocytes Percent Auto 18.1 % (20.5-60.0); Mean Corpuscular HGB Conc 32.2 g/dL (29.9-35.2); Mean Corpuscular Hemoglobin 28.6 pg (25.9-34.0); Mean Corpuscular Volume 88.8 fL (80.0-94.0); Mean Platelet Volume 9.5 fL (9.5-13.5); Monocytes Absolute Auto 0.7 10^3/uL (0.3-0.8); Monocytes Percent Auto 11.5 % (1.7-12.0); Neutrophils Absolute Auto 4.1 10^3/uL (1.4-6.5); Neutrophils Percent Auto 66.7 % (43.0-75.0); Platelet Count 194 10^3/uL (150-450); Red Blood Count 3.04 10^6/uL (4.70-6.10); Red Cell Distribution Width 16.6 % (11.0-15.0); White Blood Count 6.2 10^3/uL (4.0-11.0)
[2024-04-10 06:39] LABS: INR 2.72; Prothrombin Time 26.1 sec (9.0-11.6)
[2024-04-10 06:46] LABS: BUN Creatinine Ratio 13.3; Calcium 8.2 mg/dL (8.5-10.1); Carbon Dioxide 27.6 mmol/L (21.0-32.0); Chloride 99 mmol/L (98-107); Estimated GFR (African America 33 (>=60); Estimated GFR (Non-African Ame 27 (>=60); Glucose 101 mg/dL (74-106); Potassium 3.6 mmol/L (3.5-5.1); Sodium 138 mmol/L (136-145); Troponin I High Sensitivity 22.4 pg/mL (4.0-76.1)
[2024-04-10] MEDS: FENTANYL CITRATE/PF 100 MCG/2 ML VIAL IV (06:47)
[2024-04-10] MEDS: METHYLPREDNISOLONE SOD SUCC PF 125 MG/2 ML VIAL IVP (06:47)
[2024-04-10] MEDS: HYDRALAZINE HCL 20 MG/ML VIAL 5 MG IVP (06:48)
[2024-04-10] MEDS: LIDOCAINE 2% JELLY 20 ML UR (06:48)
[2024-04-10 06:49] LABS: Lactate/Lactic Acid 0.7 mmol/L (0.4-2.0)
[2024-04-10 07:49] LABS: Bilirubin Urine NEGATIVE (NEGATIVE); Blood Urine NEGATIVE (NEGATIVE); Clarity Urine CLEAR (CLEAR); Color Urine LT. YELLOW (YELLOW); Glucose Urine UA NEGATIVE (NEGATIVE); Ketones Urine NEGATIVE (NEGATIVE); Leukocyte Esterase Urine NEGATIVE (NEGATIVE); Nitrite Urine NEGATIVE (NEGATIVE); Protein Urine NEGATIVE (NEG/TRACE); Specific Gravity Urine <=1.005 (1.005-1.025); Urobilinogen Urine 0.2 EU/dL (0.2-1.0)
[2024-04-10 07:55] LABS: Urine Microscopic Indicated NO
== END 2024-04-10 10:17 | disposition home or self-care (01) ==
PROVIDERS: Internal Medicine; Emergency Provider Student in an Organized Health Care Education/Training Program; PCP Internal Medicine
DX: M54.31 Sciatica, right side (principal); I16.0 Hypertensive urgency; N40.1 Benign prostatic hyperplasia with lower urinary tract symptoms; R39.16 Straining to void; Z86.718 Personal history of other venous thrombosis and embolism; Z79.01 Long term (current) use of anticoagulants
CPT/HCPCS: 36415; 80048; 81003; 83605; 84484; 85025; 85610; 99284; J0360; J2919; J3010

== ENCOUNTER 2024-04-12 13:25 | Emergency (ER) | payer MEDICARE, SELFPAY ==
[2024-04-12 13:28] VITALS: BP 157/74; PULSE 77; TEMP 37; O2SAT 97; BMI 27.1
--- NOTE | 2024-04-12 13:33 | ED_ITS ---
HPI HPI - General Adult General Chief complaint: Abdominal Pain Stated complaint: 3 DAYS CONSTIPATION Time Seen by Provider: 04/12/24 13:31 Source: patient Mode of arrival: walk-in Limitations: no limitations History of Present Illness HPI narrative: This patient arrived by squad. He called from his home where he lives independently. He says his son checks in on him once a day or so. He said he has not had a bowel movement since last . He tried taking enema at home and got a little bit but not much. He has been here before for that problem. He has not had any vomiting. Does not have severe abdominal pain. He also tried some MiraLAX and lactulose at home as well. Has not been running a fever at home. He does not offer any other complaints except he said he felt little bit dizzy when he standing up and he felt that he might be dehydrated Related Data Home Medications ?Medication ?Instructions ?Recorded ?Confirmed carvedilol 6.25 mg tablet 6.25 mg PO DAILY 06/02/23 04/10/24 duloxetine 60 mg capsule,delayed 60 mg PO QAM 06/02/23 04/10/24 release dutasteride 0.5 mg capsule 0.5 mg PO DAILY 06/02/23 04/10/24 lactulose 10 gram/15 mL oral 15 ml PO DAILY 06/02/23 04/10/24 solution (Constulose) liothyronine 5 mcg tablet 5 mcg PO DAILY 06/02/23 04/10/24 magnesium oxide 400 mg (241.3 mg 400 mg PO DAILY 06/02/23 04/10/24 magnesium) tablet montelukast 10 mg tablet 10 mg PO DAILY 06/02/23 04/10/24 pantoprazole 20 mg tablet,delayed 20 mg PO DAILY 06/02/23 04/10/24 release rosuvastatin 5 mg tablet 5 mg PO DAILY 06/02/23 04/10/24 tamsulosin 0.4 mg capsule 0.4 mg PO BID 06/02/23 04/10/24 warfarin 5 mg tablet 5 mg PO DAILY 06/02/23 04/10/24 baclofen 10 mg tablet 10 mg PO BEDTIME 11/28/23 11/28/23 furosemide 40 mg tablet 40 mg PO DAILY 11/28/23 04/10/24 trazodone 50 mg tablet 50 mg PO BEDTIME 03/21/24 04/10/24 Previous Rx's ?Medication ?Instructions ?Recorded hydroxyzine HCl 25 mg tablet 25 mg PO TID PRN itching #20 tabs 05/25/23 methylprednisolone 4 mg tablets in 4 mg PO DAILY #21 ea 04/10/24 a dose pack (Medrol (Codey)) tramadol 50 mg tablet 50 mg PO BID PRN pain #6 tabs 04/10/24 Allergies Allergy/AdvReac Type Severity Reaction Status Date / Time aspirin Allergy Unknown Verified 05/25/23 09:32 cephalexin [From Keflex] Allergy Unknown Verified 05/25/23 09:32 codeine Allergy Unknown Verified 05/25/23 09:32 indomethacin [From Indocin] Allergy Unknown Verified 05/25/23 09:32 metoclopramide [From Reglan] Allergy Unknown Verified 05/25/23 09:32 minocycline Allergy Unknown Verified 05/25/23 09:32 Penicillins Allergy Unknown Verified 05/25/23 09:32 Sulfa (Sulfonamide Allergy Unknown Verified 05/25/23 09:32 Antibiotics) tetracycline Allergy Unknown Verified 05/25/23 09:32 erytromycin ethylsuccinate Allergy Unknown Uncoded 05/25/23 09:32 Opioid HPI Opioid Management Most Recent Opioid Data: Last Pain Scale 10 04/10/24 06:47 Last ED Pain Assessment 04/10/24 08:17 [facility] Social History Smoking status: Never smoker Exam Narrative Exam Narrative: Awake alert [place] x 3. Reasonable historian. Vital signs are stable he does not appear acutely ill or toxic. He is not writhing in discomfort and is resting comfortably. Examination abdomen shows her to be nondistended there is no rebound rigidity or peritoneal findings. Has no tenderness in the right or upper or right lower quadrant. No tenderness to palpation left lower quadrant. He just has diffuse fullness in the lower suprapubic area. Constitutional Vital Signs, click to edit/add: Last Vital Signs Temp 98.6 F 04/12/24 13:28 Pulse 85 04/12/24 16:35 Resp 18 04/12/24 16:35 BP 136/88 04/12/24 16:35 Pulse Ox 96 04/12/24 16:35 O2 Del Method Room Air 04/12/24 16:35 Course Vital Signs Vital signs: Vital Signs Temperature 98.6 F 04/12/24 13:28 Pulse Rate 77 04/12/24 13:28 Respiratory Rate 18 04/12/24 13:28 Blood Pressure 157/74 H 04/12/24 13:28 Pulse Oximetry 97 04/12/24 13:28 Oxygen Delivery Method Room Air 04/12/24 13:28 Temperature 98.6 F 04/12/24 13:28 Pulse Rate 85 04/12/24 16:35 Respiratory Rate 18 04/12/24 16:35 Blood Pressure 136/88 04/12/24 16:35 Pulse Oximetry 96 04/12/24 16:35 Oxygen Delivery Method Room Air 04/12/24 16:35 Medical Decision Making MDM Narrative Medical decision making narrative: Patient is abdominal series consistent with with a very large stool burden in the rectal vault area. Also his TSH is substantially elevated which may contribute to the constipation problem. He is taking supplemental thyroid medication. His BUN modestly elevated consistent with clinical dehydration. He we will give some fluids and administer the enema. His primary care doctor will have to adjust her thyroid medications as appropriate. Initial enema but numbers were unsuccessful. He was not able to retain fluids but with persistence and a digital rectal examination he had a very large bowel movement. His TSH is substantially elevated and this was discussed with his primary care doctor. He also was recently in the hospital and was given Ultram for low back pain which may be contributing so I will switch him to Toradol. I did reexamine his ribs there is no evidence of bruising or ecchymosis over his left anterior lateral chest wall area. Abdominal series x-ray chest study does not show any obvious pneumothorax hemothorax or rib abnormality. I do not believe he would necessarily benefit from a rib study x-ray I told him he has bruised ribs. Will treat him empirically Lab Data Labs: Lab Results 04/12/24 Range/Units 13:46 WBC 8.7 (4.0-11.0) 10^3/uL RBC 3.24 L (4.70-6.10) 10^6/uL Hgb 9.1 L (14.0-18.0) g/dL Hct 29.2 L (42.0-54.0) % MCV 90.1 (80.0-94.0) fL MCH 28.1 (25.9-34.0) pg MCHC 31.2 (29.9-35.2) g/dL RDW 17.0 H (11.0-15.0) % Plt Count 220 (150-450) 10^3/uL MPV 9.0 L (9.5-13.5) fL Neut % (Auto) 73.8 (43.0-75.0) % Lymph % (Auto) 16.7 L (20.5-60.0) % [place] % (Auto) 8.4 (1.7-12.0) % Eos % (Auto) 0.6 L (0.9-7.0) % Baso % (Auto) 0.2 (0.2-2.0) % Neut # (Auto) 6.4 (1.4-6.5) 10^3/uL Lymph # (Auto) 1.5 (1.2-3.8) 10^3/uL [place] # (Auto) 0.7 (0.3-0.8) 10^3/uL Eos # (Auto) 0.1 (0.0-0.7) 10^3/uL Baso # (Auto) 0.0 (0.0-0.1) 10^3/uL Abs Immat Gran (auto) 0.03 (0.00-0.03) 10^3/uL Imm/Tot Granulo (auto) 0.3 (0.0-0.5) % Sodium 138 (136-145) mmol/L Potassium 3.4 L (3.5-5.1) mmol/L Chloride 100 (98-107) mmol/L Carbon Dioxide 27.4 (21.0-32.0) mmol/L Anion Gap 14.0 BUN 35.0 H (7.0-18.0) mg/dL Creatinine 2.38 H (0.70-1.30) mg/dL Est GFR ( Amer) 32 L (>=60) Est GFR (Non-Af Amer) 27 L (>=60) BUN/Creatinine Ratio 14.7 Glucose 107 H (74-106) mg/dL Calcium 8.4 L (8.5-10.1) mg/dL Total Bilirubin 0.4 (0.2-1.0) mg/dL AST 21 (15-37) U/L ALT 23 (16-63) U/L Alkaline Phosphatase 99 (46-116) U/L Total Protein 7.4 (6.4-8.2) g/dL Albumin 3.4 (3.4-5.0) g/dL Globulin 4.0 g/dL Albumin/Globulin Ratio 0.9 Lipase 21.0 (16.0-77.0) U/L TSH 11.824 H (0.358-3.740) uIU/mL Discharge Plan Discharge Chief Complaint: Abdominal Pain Clinical Impression: Constipation Qualifiers: Constipation type: unspecified constipation type Qualified Code(s): K59.00 - Constipation, unspecified Prescriptions / Home Meds: No Action trazodone 50 mg tablet 50 mg PO BEDTIME hydroxyzine HCl 25 mg tablet 25 mg PO TID PRN (Reason: itching) Qty: 20 0RF carvedilol 6.25 mg tablet 6.25 mg PO DAILY duloxetine 60 mg capsule,delayed release(DR/EC) 60 mg PO QAM dutasteride 0.5 mg capsule 0.5 mg PO DAILY lactulose [Constulose] 10 gram/15 mL solution 15 ml PO DAILY liothyronine 5 mcg tablet 5 mcg PO DAILY magnesium oxide 400 mg (241.3 mg magnesium) tablet 400 mg PO DAILY montelukast 10 mg tablet 10 mg PO DAILY pantoprazole 20 mg tablet,delayed release (DR/EC) 20 mg PO DAILY rosuvastatin 5 mg tablet 5 mg PO DAILY tamsulosin 0.4 mg capsule 0.4 mg PO BID warfarin 5 mg tablet 5 mg PO DAILY baclofen 10 mg tablet 10 mg PO BEDTIME furosemide 40 mg tablet 40 mg PO DAILY tramadol 50 mg tablet 50 mg PO BID PRN (Reason: pain) Qty: 6 0RF methylprednisolone [Medrol (Codey)] 4 mg tablets,dose pack 4 mg PO DAILY Qty: 21 0RF Rx Instructions: TAKE PER DOSEPAK INSTRUCTIONS Print Language: American Referrals: TAHIR MCGUIRE MD [Primary Care Provider] - 1 week
[2024-04-12] MEDS: 0.9 % SODIUM CHLORIDE 1,000 ML 1000 ML IV (13:45)
[2024-04-12 13:59] LABS: Basophils Percent Auto 0.2 % (0.2-2.0); Eosinophils Absolute Auto 0.1 10^3/uL (0.0-0.7); Eosinophils Percent Auto 0.6 % (0.9-7.0); Hematocrit 29.2 % (42.0-54.0); Hemoglobin 9.1 g/dL (14.0-18.0); Immature Granulocytes Abs Auto 0.03 10^3/uL (0.00-0.03); Immature Granulocytes Pct Auto 0.3 % (0.0-0.5); Lymphocytes Absolute Auto 1.5 10^3/uL (1.2-3.8); Lymphocytes Percent Auto 16.7 % (20.5-60.0); Mean Corpuscular HGB Conc 31.2 g/dL (29.9-35.2); Mean Corpuscular Hemoglobin 28.1 pg (25.9-34.0); Mean Corpuscular Volume 90.1 fL (80.0-94.0); Monocytes Absolute Auto 0.7 10^3/uL (0.3-0.8); Monocytes Percent Auto 8.4 % (1.7-12.0); Neutrophils Absolute Auto 6.4 10^3/uL (1.4-6.5); Neutrophils Percent Auto 73.8 % (43.0-75.0); Platelet Count 220 10^3/uL (150-450); Red Blood Count 3.24 10^6/uL (4.70-6.10); White Blood Count 8.7 10^3/uL (4.0-11.0)
--- NOTE | 2024-04-12 14:05 | XR_ITS ---
The [address] [address] Patient Name: ALBIN VILLALTA MRN: [id number] date: 1945 Sex: M Assigned Patient Location: ED.MAIN Current Patient Location: ED.MAIN Accession/Order Number: [id number] Exam Date: 04/12/2024 13:50 Report Date: 04/12/2024 14:21 At the request of: AVA QUEEN Procedure: XR acute abdomen series EXAMINATION: XR acute abdomen series HISTORY: Abdominal pain COMPARISON: XR acute abdomen series 11/28/2023 FINDINGS: LUNGS: Approximately 1.5 cm subtle rounded opacity within lateral right midlung. Chronic opacity within lateral left lung base suspected represent a prominent pericardial fat pad. MEDIASTINUM: No abnormal widening. BOWEL GAS PATTERN: Air-filled ascending and transverse colon with moderate amount of stool in the descending and sigmoid colon. Large amount stool suspected within the rectal vault. FREE AIR: None. CALCIFICATIONS: None significant. BONES: [Replacement. Scoliotic curvature and degenerative changes of lumbar spine. OTHER: Filter within IVC. XR/XR acute abdomen series IMPRESSION: 1. Small patchy opacities within right midlung; acute infiltrates suspected. Development of a lung nodule since 11/28/23 cannot be excluded. 2. Large amount stool within rectal vault suggestive of fecal impaction. Moderate amount of stool within mid-distal colon. Electronically authenticated by: RILEY NEVES Date: 04/12/2024 14:21
[2024-04-12 14:15] LABS: Alanine Aminotransferase 23 U/L (16-63); Albumin Globulin Ratio 0.9; Albumin Level 3.4 g/dL (3.4-5.0); Alkaline Phosphatase 99 U/L (46-116); Aspartate Amino Transferase 21 U/L (15-37); BUN Creatinine Ratio 14.7; Bilirubin Total 0.4 mg/dL (0.2-1.0); Calcium 8.4 mg/dL (8.5-10.1); Carbon Dioxide 27.4 mmol/L (21.0-32.0); Chloride 100 mmol/L (98-107); Estimated GFR (African America 32 (>=60); Estimated GFR (Non-African Ame 27 (>=60); Glucose 107 mg/dL (74-106); Potassium 3.4 mmol/L (3.5-5.1); Sodium 138 mmol/L (136-145); Total Protein 7.4 g/dL (6.4-8.2)
[2024-04-12 14:23] LABS: Thyroid Stimulating Hormone 11.824 uIU/mL (0.358-3.740)
[2024-04-12 16:35] VITALS: BP 136/88; PULSE 85; O2SAT 96
--- NOTE | 2024-04-12 16:41 | PC.NURSE ---
Patient had large BM after 2 enemas and digital disimpaction. Patient does feel relief but is concerned about it happening again.
== END 2024-04-12 17:31 | disposition home or self-care (01) ==
PROVIDERS: Emergency Provider Emergency Medicine Emergency Medical Services; PCP Internal Medicine
DX: K59.00 Constipation, unspecified (principal)
CPT/HCPCS: 36415; 74022; 80053; 83690; 84443; 85025; 96360; 99285

== ENCOUNTER 2024-08-03 02:24 | Emergency (ER) | payer MEDICARE, SELFPAY ==
[2024-08-03 02:30] VITALS: BP 204/97; PULSE 80; TEMP 37; O2SAT 97; BMI 26.4
--- NOTE | 2024-08-03 02:32 | ED_ITS ---
HPI - Abdominal Pain General Chief Complaint: Abdominal Pain Stated Complaint: ABD PAIN Time Seen by Provider: 08/03/24 02:25 Source: patient Mode of arrival: ambulance Limitations: no limitations History of Present Illness HPI narrative: This 78-year-old male with a history of constipation is brought to the emergency department by EMS from home for evaluation of lower abdominal pain and urinary retention. The patient states he has been having urinary issues for the past several weeks. He states he has been straining all night to try to urinate but has not been successful. He has pain in his lower abdomen. He does have a history of constipation but states that he has had 2 bowel movements throughout the day yesterday and does not think he is constipated. He denies any chest pain or shortness of breath. He has not had a fever. The last time he urinated was at 5 PM last night and is currently 2:30 AM. He denies any back pain. He denies any fevers or chills. He has not had any vomiting or diarrhea. Related Data Home Medications ?Medication ?Instructions ?Recorded ?Confirmed carvedilol 6.25 mg tablet 6.25 mg PO DAILY 06/02/23 04/10/24 duloxetine 60 mg capsule,delayed 60 mg PO QAM 06/02/23 04/10/24 release dutasteride 0.5 mg capsule 0.5 mg PO DAILY 06/02/23 04/10/24 lactulose 10 gram/15 mL oral 15 ml PO DAILY 06/02/23 04/10/24 solution (Constulose) liothyronine 5 mcg tablet 5 mcg PO DAILY 06/02/23 04/10/24 magnesium oxide 400 mg (241.3 mg 400 mg PO DAILY 06/02/23 04/10/24 magnesium) tablet montelukast 10 mg tablet 10 mg PO DAILY 06/02/23 04/10/24 pantoprazole 20 mg tablet,delayed 20 mg PO DAILY 06/02/23 04/10/24 release rosuvastatin 5 mg tablet 5 mg PO DAILY 06/02/23 04/10/24 tamsulosin 0.4 mg capsule 0.4 mg PO BID 06/02/23 04/10/24 warfarin 5 mg tablet 5 mg PO DAILY 06/02/23 04/10/24 baclofen 10 mg tablet 10 mg PO BEDTIME 11/28/23 11/28/23 furosemide 40 mg tablet 40 mg PO DAILY 11/28/23 04/10/24 trazodone 50 mg tablet 50 mg PO BEDTIME 03/21/24 04/10/24 Previous Rx's ?Medication ?Instructions ?Recorded hydroxyzine HCl 25 mg tablet 25 mg PO TID PRN itching #20 tabs 05/25/23 methylprednisolone 4 mg tablets in 4 mg PO DAILY #21 ea 04/10/24 a dose pack (Medrol (Codey)) tramadol 50 mg tablet 50 mg PO BID PRN pain #6 tabs 04/10/24 Allergies Allergy/AdvReac Type Severity Reaction Status Date / Time aspirin Allergy Unknown Unknown Verified 08/03/24 02:30 cephalexin [From Keflex] Allergy Unknown Unknown Verified 08/03/24 02:30 codeine Allergy Unknown Unknown Verified 08/03/24 02:30 indomethacin [From Indocin] Allergy Unknown Unknown Verified 08/03/24 02:30 metoclopramide [From Reglan] Allergy Unknown Unknown Verified 08/03/24 02:30 minocycline Allergy Unknown Unknown Verified 08/03/24 02:30 Penicillins Allergy Unknown Unknown Verified 08/03/24 02:30 Sulfa (Sulfonamide Allergy Unknown Unknown Verified 08/03/24 02:30 Antibiotics) tetracycline Allergy Unknown Unknown Verified 08/03/24 02:30 erytromycin ethylsuccinate Allergy Unknown Unknown Uncoded 08/03/24 02:30 Review of Systems ROS Status of ROS 10 or more systems reviewed and unremark able except as noted in history and below PFSH PFSH Social History Smoking status: Never smoker Little interest or pleasure in doing things: not at all Feeling down, depressed, or hopeless: not at all Exam Narrative Exam Narrative: Vital signs and Nursing Notes reviewed: Patient is afebrile with a normal pulse, blood pressure is elevated at 204/97, he is not hypoxic with pulse ox of 97% on room air General: Awake, alert, oriented, nontoxic but uncomfortable appearing elderly male, no respiratory distress HEENT: Normocephalic atraumatic, mucous membranes are moist and pink, eyes are clear, normal conjunctiva, vision is grossly intact Neck: Supple, no meningeal signs, no anterior or posterior cervical lymphadenopathy Chest: Lungs are clear to auscultation with good air entry, there is no wheezing rhonchi or rales appreciated no accessory muscle use, patient is speaking in complete sentences-no chest wall tenderness to palpation CVS: Regular rate and rhythm S1-S2, no murmurs rubs or gallops, pulses are brisk and equal bilaterally ABD: Soft, lateral lower abdominal pain with tenderness and fullness over the bladder, bladder scan revealed greater than 600 cc of retained urine in the bladder Extremities: Moving all extremities, no lower extremity tenderness or swelling noted, negative Homans' sign, pulses are brisk and equal bilaterally Skin: Normal in appearance without rash,pallor, petechiae or purpura Neuro: No focal deficits; speech is clear, there is no facial droop, upper and lower extremity strength and sensation is intact Constitutional Vital Signs, click to edit/add: Last Vital Signs Temp 98.6 F 08/03/24 02:30 Pulse 78 08/03/24 03:47 Resp 18 08/03/24 03:47 BP 189/99 H 08/03/24 03:47 Pulse Ox 95 08/03/24 03:47 O2 Del Method Room Air 08/03/24 03:47 Course Vital Signs Vital signs: Vital Signs Temperature 98.6 F 08/03/24 02:30 Pulse Rate 80 08/03/24 02:30 Respiratory Rate 20 08/03/24 02:30 Blood Pressure 204/97 H 08/03/24 02:30 Pulse Oximetry 97 08/03/24 02:30 Oxygen Delivery Method Room Air 08/03/24 02:30 Temperature 98.6 F 08/03/24 02:30 Pulse Rate 78 08/03/24 03:47 Respiratory Rate 18 08/03/24 03:47 Blood Pressure 189/99 H 08/03/24 03:47 Pulse Oximetry 95 08/03/24 03:47 Oxygen Delivery Method Room Air 08/03/24 03:47 MDM - Abdominal Pain MDM Narrative Medical decision making narrative: This 78-year-old male with a history of chronic constipation and BPH presents for evaluation of lower abdominal pain and urinary retention. He had been trying to urinate all night since 5 PM but was unable to pass any urine. His bladder was distended upon arrival and a Augustin catheter was placed with return of greater than 600 cc of clear yellow urine. Urine is negative for infection. Due to the abdominal pain and history of constipation and x-ray was ordered that shows a questionable dilated loop of bowel in the left hemiabdomen that was concerning for bowel obstruction. A noncontrast CT scan was ordered. He has a normal white count, his hemoglobin is mildly low at 9.5. Platelet count was stable at 163. His creatinine is mildly elevated compared to his baseline at 2 .5. Electrolytes and liver function tests are otherwise normal. He was given IV fluids. He has not required any pain medication or nausea medication. Non contrast CT scan of the abdomen pelvis was ordered and the results are included in the body of this report. It does not show any bowel obstruction but does show nonobstructive bowel gas pattern with a large amount of stool within the colon. This may be part of the reason the patient has urinary retention. It shows a stable 4.8 mm right renal cyst and a 3.1 mm nonobstructive left renal calculus with atherosclerotic disease colonic diverticula without diverticulitis and a small hiatal hernia. The results of the CT scan were discussed with the patient. He is anxious to be discharged home. He will be discharged home with the Augustin catheter in place and has follow-up with Dr. Mcguire in 2 days. He is currently on MiraLAX and lactulose and was encouraged to continue taking that for his constipation. Medical Records Attestation: I reviewed the patient's medical records. Medical records narrative: [place] [address] XRay Report Signed Patient: ALBIN VILLALTA Jr. MR#: [id number] : 1945 Acct:[id number] Age/Sex: 78 / M ADM Date: 08/03/24 Loc: ER Attending Dr: Ordering Physician: Kelly Chinchilla Date of Service: 08/03/24 Procedure(s): XR acute abdomen series Accession Number(s): [id number] cc: Kelly Chinchilla; TAHIR MCGUIRE D.O.~ The [address] [address] Patient Name: ALBIN VILLALTA MRN: [id number] date: 1945 Sex: M Assigned Patient Location: ER Current Patient Location: ER Accession/Order Number: [id number] Exam Date: 08/03/2024 03:18 Report Date: 08/03/2024 04:04 At the request of: KELLY MARKER Procedure: XR acute abdomen series EXAM: XR acute abdomen series HISTORY: abdominal pain, hx constipation COMPARISON: Acute abdomen series dated 04/12/2024. TECHNIQUE: One view of the chest and 2 views of the abdomen were obtained. FINDINGS: Dental amalgam is noted. An IVC filter is noted. A left hip arthroplasty is partially imaged. The cardiac silhouette is stable in size. Aortic atherosclerotic disease is seen. There is interstitial prominence. Again seen are hazy airspace opacities in the mid right lung. There is no significant pneumothorax or pleural effusion. There is an air-filled dilated loop of small bowel measuring up to 3.5 cm. No intraperitoneal free air is seen. No acute osseous abnormality is seen. XR/XR acute abdomen series IMPRESSION: 1. Interstitial prominence that could represent edema and/or bronchitis. 2. Stable airspace opacities in the mid right lung. These could be further evaluated with a CT of the chest as clinically indicated. 3. There is an air-filled dilated loop of small bowel in the left hemiabdomen which could represent enteritis or an early small bowel obstruction. Electronically authenticated by: Octavio ESTRADA Date: 08/03/2024 04:04 [place] [address] CT Scan Report Signed Patient: ALBIN VILLALTA Jr. MR#: [id number] : 1945 Acct:[id number] Age/Sex: 78 / M ADM Date: 08/03/24 Loc: ER Attending Dr: Ordering Physician: Kelly Chinchilla Date of Service: 08/03/24 Procedure(s): CT abdomen pelvis wo con Accession Number(s): [id number] cc: TAHIR MCGUIRE D.O.~ The [address] [address] Patient Name: ALBIN VILLALTA MRN: [id number] date: 1945 Sex: M Assigned Patient Location: ER Current Patient Location: ER Accession/Order Number: [id number] Exam Date: 08/03/2024 04:50 Report Date: 08/03/2024 05:30 At the request of: KELLY MARKER Procedure: CT abdomen pelvis wo con EXAM: CT abdomen pelvis wo con HISTORY: Bowel gas pattern suggesting either an enteritis or early small bowel obstruction on the acute abdominal series dated 2023. COMPARISON: Acute abdominal series dated 08/03/[address] abdomen/pelvis dated 03/21/2020. TECHNIQUE: Routine CT abdomen/pelvis without intravenous contrast. FINDINGS: Lung bases: The interstitial markings and groundglass opacities at both lung bases are stable. There is no new consolidation or pleural effusion. Liver: Unremarkable. Gallbladder: Previous cholecystectomy. There is no significant biliary dilatation. Pancreas: There are a few small calcifications within the pancreas. Spleen: Unremarkable. Adrenal glands: Unremarkable. Kidneys: There is a stable 4.8 mm Bosniak 2 right renal cyst, complicated with proteinaceous debris and/or blood degradation products. There is a 3.1 mm nonobstructive left renal calculus. Bowel: There is a large amount of stool within the colon. There are colonic diverticula without diverticulitis. The appendix is not identified. There is a small hiatal hernia. The distal esophagus is unremarkable. There is gastric wall thickening which may be accentuated by underdistention. Fluid and air-fluid levels within nondilated jejunal and ileal small bowel loops. Correlate with clinical symptoms of a gastroenteritis. At the present time, the bowel gas pattern does not appear obstructive. Inflammation: There is no free air, free fluid or inflammatory reaction. Vasculature: Mild aortic valvular calcification. Mild mitral annular calcification. Mild atheromatous calcification descending thoracic and abdominal aorta. Mild atheromatous calcification iliac and right common femoral artery. The caval filter within the IVC is unchanged in position, 2.1 cm below the renal veins. Lymphadenopathy: There are no pathologically enlarged lymph nodes. Pelvis: A portion of the pelvis is obscured by beam hardening artifact from a left hip replacement. The balloon tip of a Augustin catheter is within the urinary bladder. The small amount of gas within the urinary bladder is most likely related to the Augustin catheter. There is circumferential thickening of the wall the urinary bladder which may in part be related to underdistention. Correlation should be made with a urinalysis to exclude a cystitis. The prostate gland is small. Osseous: The bony structures are osteopenic. There is mild to moderate dextroscoliosis of the thoracic spine. There is a stable compression fracture of the L1 vertebral body. There are degenerative changes at numerous levels along the thoracolumbar spine. There is a partially imaged left hip replacement. There are mild degenerative changes at the right hip joint. CT/CT abdomen pelvis wo con IMPRESSION: The bowel gas pattern is nonobstructive with a large amount of stool within the colon. There are colonic diverticula without diverticulitis. There is a small hiatal hernia. There is gastric wall thickening which may be accentuated by underdistention and fluid and air-fluid levels within nondilated jejunal and ileal small bowel loops. Correlate with clinical findings of a gastroenteritis. There is no free air, free fluid or inflammatory reaction. Stable 4.8 mm Bosniak 2 right renal cyst. There is a 3.1 mm nonobstructive left renal calculus. Atherosclerotic disease as described. Stable caval filter within the IVC, 2.1 cm below the renal veins. Balloon tip of a Augustin catheter within the urinary bladder. The gas within the urinary bladder is most likely related to the Augustin catheter. There is circumferential thickening of the wall the urinary bladder which may in part be related to underdistention. Correlation should be made with a urinalysis to exclude a cystitis. The bony structures are osteopenic. Stable compression fracture of the L1 vertebral body. Electronically authenticated by: DEVENDRA MILLER Date: 08/03/2024 05:30 Lab Data Labs: Lab Results 08/03/24 08/03/24 Range/Units 02:55 02:56 WBC 6.3 (4.0-11.0) 10^3/uL RBC 3.30 L (4.70-6.10) 10^6/uL Hgb 9.5 L (14.0-18.0) g/dL Hct 29.7 L (42.0-54.0) % MCV 90.0 (80.0-94.0) fL MCH 28.8 (25.9-34.0) pg MCHC 32.0 (29.9-35.2) g/dL RDW 15.4 H (11.0-15.0) % Plt Count 163 (150-450) 10^3/uL MPV 9.6 (9.5-13.5) fL Neut % (Auto) 51.6 (43.0-75.0) % Lymph % (Auto) 24.2 (20.5-60.0) % [place] % (Auto) 13.4 H (1.7-12.0) % Eos % (Auto) 10.0 H (0.9-7.0) % Baso % (Auto) 0.6 (0.2-2.0) % Neut # (Auto) 3.3 (1.4-6.5) 10^3/uL Lymph # (Auto) 1.5 (1.2-3.8) 10^3/uL [place] # (Auto) 0.9 H (0.3-0.8) 10^3/uL Eos # (Auto) 0.6 (0.0-0.7) 10^3/uL Baso # (Auto) 0.0 (0.0-0.1) 10^3/uL Abs Immat Gran (auto) 0.01 (0.00-0.03) 10^3/uL Imm/Tot Granulo (auto) 0.2 (0.0-0.5) % PT 11.2 (9.0-11.6) sec INR 1.06 Sodium 137 (136-145) mmol/L Potassium 3.5 (3.5-5.1) mmol/L Chloride 99 (98-107) mmol/L Carbon Dioxide 24.8 (21.0-32.0) mmol/L Anion Gap 16.7 BUN 31.0 H (7.0-18.0) mg/dL Creatinine 2.51 H (0.70-1.30) mg/dL Est GFR ( Amer) 30 L (>=60 mL/min/1.73m^2) Est GFR (Non-Af Amer) 25 L (>=60 mL/min/1.73m^2) BUN/Creatinine Ratio 12.4 Glucose 106 (74-106) mg/dL Lactate 0.6 (0.4-2.0) mmol/L Calcium 8.9 (8.5-10.1) mg/dL Total Bilirubin 0.3 (0.2-1.0) mg/dL AST 14 L (15-37) U/L ALT 13 L (16-63) U/L Alkaline Phosphatase 88 (46-116) U/L Total Protein 7.5 (6.4-8.2) g/dL Albumin 3.8 (3.4-5.0) g/dL Globulin 3.7 g/dL Albumin/Globulin Ratio 1.0 Urine Color Lt. yellow (YELLOW) Urine Clarity Clear (CLEAR) Urine pH 6.0 (5.0-9.0) Ur Specific [place] 1.010 (1.005-1.025) Urine Protein Negative (NEG/TRACE) mg/dL Urine Glucose (UA) Negative (NEGATIVE) mg/dL Urine Ketones Negative (NEGATIVE) mg/dL Urine Occult Blood Negative (NEGATIVE) Urine Nitrite Negative (NEGATIVE) Urine Bilirubin Negative (NEGATIVE) Urine Urobilinogen 0.2 (0.2-1.0) EU/dL Ur Leukocyte Esterase Negative (NEGATIVE) Urine RBC None seen (0-2) #/HPF Urine WBC None seen (NONE SEEN) #/HPF Ur Squamous Epith Cells None seen (NONE/RARE) #/LPF Urine Crystals None seen (None Seen) #/HPF Urine Bacteria Trace A (NONE SEEN) #/HPF Urine Casts None seen (NONE SEEN) #/LPF Urine Mucus None seen (NONE SEEN) Discharge Plan Discharge Chief Complaint: Abdominal Pain Clinical Impression: Acute urinary retention, Acute on chronic renal insufficiency Patient Disposition: Home, Self-Care Time of Disposition Decision: 06:11 Condition: Good Prescriptions / Home Meds: No Action trazodone 50 mg tablet 50 mg PO BEDTIME hydroxyzine HCl 25 mg tablet 25 mg PO TID PRN (Reason: itching) Qty: 20 0RF carvedilol 6.25 mg tablet 6.25 mg PO DAILY duloxetine 60 mg capsule,delayed release(DR/EC) 60 mg PO QAM dutasteride 0.5 mg capsule 0.5 mg PO DAILY lactulose [Constulose] 10 gram/15 mL solution 15 ml PO DAILY liothyronine 5 mcg tablet 5 mcg PO DAILY magnesium oxide 400 mg (241.3 mg magnesium) tablet 400 mg PO DAILY montelukast 10 mg tablet 10 mg PO DAILY pantoprazole 20 mg tablet,delayed release (DR/EC) 20 mg PO DAILY rosuvastatin 5 mg tablet 5 mg PO DAILY tamsulosin 0.4 mg capsule 0.4 mg PO BID warfarin 5 mg tablet 5 mg PO DAILY baclofen 10 mg tablet 10 mg PO BEDTIME furosemide 40 mg tablet 40 mg PO DAILY tramadol 50 mg tablet 50 mg PO BID PRN (Reason: pain) Qty: 6 0RF methylprednisolone [Medrol (Codey)] 4 mg tablets,dose pack 4 mg PO DAILY Qty: 21 0RF Rx Instructions: TAKE PER DOSEPAK INSTRUCTIONS Print Language: Sudanese Instructions: Urinary Retention in Men (ED), Chronic Kidney Disease (ED), Augustin Catheter Placement and Care (ED) Referrals: TAHIR MCGUIRE DO [Primary Care Provider] - 1 week Harsha Benitez MD [Physician] - 1 week (acute urinary retention)
--- NOTE | 2024-08-03 02:39 | XR_ITS ---
The [address] [address] Patient Name: ALBIN VILLALTA MRN: [id number] date: 1945 Sex: M Assigned Patient Location: ER Current Patient Location: ER Accession/Order Number: [id number] Exam Date: 08/03/2024 03:18 Report Date: 08/03/2024 04:04 At the request of: TRACIE MARKER Procedure: XR acute abdomen series EXAM: XR acute abdomen series HISTORY: abdominal pain, hx constipation COMPARISON: Acute abdomen series dated 04/12/2024. TECHNIQUE: One view of the chest and 2 views of the abdomen were obtained. FINDINGS: Dental amalgam is noted. An IVC filter is noted. A left hip arthroplasty is partially imaged. The cardiac silhouette is stable in size. Aortic atherosclerotic disease is seen. There is interstitial prominence. Again seen are hazy airspace opacities in the mid right lung. There is no significant pneumothorax or pleural effusion. There is an air-filled dilated loop of small bowel measuring up to 3.5 cm. No intraperitoneal free air is seen. No acute osseous abnormality is seen. XR/XR acute abdomen series IMPRESSION: 1. Interstitial prominence that could represent edema and/or bronchitis. 2. Stable airspace opacities in the mid right lung. These could be further evaluated with a CT of the chest as clinically indicated. 3. There is an air-filled dilated loop of small bowel in the left hemiabdomen which could represent enteritis or an early small bowel obstruction. Electronically authenticated by: Octavio ESTRADA Date: 08/03/2024 04:04
[2024-08-03] MEDS: LIDOCAINE 2% JELLY 10 ML UR (02:46)
[2024-08-03 03:08] LABS: Basophils Percent Auto 0.6 % (0.2-2.0); Eosinophils Absolute Auto 0.6 10^3/uL (0.0-0.7); Hematocrit 29.7 % (42.0-54.0); Hemoglobin 9.5 g/dL (14.0-18.0); Immature Granulocytes Abs Auto 0.01 10^3/uL (0.00-0.03); Immature Granulocytes Pct Auto 0.2 % (0.0-0.5); Lymphocytes Absolute Auto 1.5 10^3/uL (1.2-3.8); Lymphocytes Percent Auto 24.2 % (20.5-60.0); Mean Corpuscular Hemoglobin 28.8 pg (25.9-34.0); Mean Platelet Volume 9.6 fL (9.5-13.5); Monocytes Absolute Auto 0.9 10^3/uL (0.3-0.8); Monocytes Percent Auto 13.4 % (1.7-12.0); Neutrophils Absolute Auto 3.3 10^3/uL (1.4-6.5); Neutrophils Percent Auto 51.6 % (43.0-75.0); Platelet Count 163 10^3/uL (150-450); Red Cell Distribution Width 15.4 % (11.0-15.0); White Blood Count 6.3 10^3/uL (4.0-11.0)
[2024-08-03 03:08] LABS: Bilirubin Urine NEGATIVE (NEGATIVE); Blood Urine NEGATIVE (NEGATIVE); Clarity Urine CLEAR (CLEAR); Color Urine LT. YELLOW (YELLOW); Glucose Urine UA NEGATIVE (NEGATIVE); Ketones Urine NEGATIVE (NEGATIVE); Leukocyte Esterase Urine NEGATIVE (NEGATIVE); Nitrite Urine NEGATIVE (NEGATIVE); Protein Urine NEGATIVE (NEG/TRACE); Urobilinogen Urine 0.2 EU/dL (0.2-1.0)
--- OUTSIDE RECORDS SUMMARY | 2024-08-03 03:14 | XMS_ITS | CCD ---
Author Organization [facility] Care Team Providers Care Manager Actuarial Name Role Phone CLARITZA YARBROUGH Coleman Unavailable [...] Unavailable PAY ., DR CASANOVA Consulting Unavailable MAYNOR, DR HARO Primary Care Unavailable VALONE, DR HARO Admitting Unavailable VALONE, DR HARO Attending Unavailable VALONE, DR HARO Primary Care Unavailable HAY ., DR RICKS Admitting Unavailable HAY ., DR RICKS Attending Unavailable STELLA, DR MIKA Romero Consulting Unavailable ALEXIS ., JUAN FELDER Consulting UnavailJOSSELYN Cameron Consulting Unavailable NON STAFF Primary Care Provider UnavailLINO Drew Emergency Provider [phone] MarjorieBrittany Unavailable Michael Amador Attending Unavailable Michael Amador Admitting Unavailable NON STAFF Primary Care Unavailable DEBRA MUNGIUA Attending Unavailable DEBRA MUNGUIA Attending Unavailable DEBRA MUNGUIA Attending Unavailable Allergies Allergy Classification Reported Allergen(s) Allergy Type Date of Onset Reaction(s) Facility (3 sources) Aspirin Drug Allergy 06-24-20 13 Unknown Reaction [facility] Repository (3 sources) Cephalexin Drug Allergy 06-24-20 13 Unknown [facility] (3 sources) Codeine Drug Allergy 06-24-20 13 Unknown Reaction [facility] Rep[facility] (2 sources) Erythromycin Drug Allergy 11-23-19 19 Unknown Reaction [facility] (2 sources) Iothalamate Drug Allergy 06-24-20 13 [facility] Rep[facility] (3 sources) Minocycline Drug Allergy 06-24-20 13 Unknown Reaction [facility] (1 source) Penicillin Drug Allergy 11-23-19 19 [facility] Rep[facility] (2 sources) Procyclidine Drug Allergy 06-24-20 13 [facility] (1 source) Sulfamethoxazole / Trimethoprim Drug Allergy 11-23-19 19 [facility] (3 sources) Sulfonamides (Antibiotic) Drug allergy (disorder) 04-27-20 17 Unknown Reaction [facility] (3 sources) Tetracycline Drug Allergy 06-24-20 13 Unknown Reaction [facility] (2 sources) Penicillins Drug allergy (disorder) 06-24-20 13 Swelling [facility] Rep[facility] (1 source) E.E.S. Drug allergy (disorder) 06-24-20 13 [facility] Rep[facility] (3 sources) Cephalexin; Translations: [cephalexin] Drug Allergy 10-18-20 23 Unknown Reaction, Unknown [facility] (3 sources) Indomethacin; Translations: [indomethacin] Drug Allergy 10-18-20 Unknown Reaction, Unknown [facility] (1 source) Aspirin Drug Allergy Unknown [facility] Other (1 source) Codeine Drug Allergy Unknown [facility] Other (1 source) Erythromycin Drug Allergy Unknown [facility] Other (1 source) Metoclopramide Drug Allergy Unknown [facility] Other (1 source) Minocycline Drug Allergy Unknown [facility] Other (1 source) Penicillin G Drug Allergy Unknown [facility] Other (1 source) Sulfamethoxazole / Trimethoprim Drug Allergy Unknown [facility] Other (1 source) Tetracycline Drug Allergy Unknown [facility] Other (1 source) Aspirin Drug Allergy 10-18-20 [facility] Repository (1 source) Codeine Drug Allergy 10-18-20 [facility] Repository (1 source) Erythromycin Drug Allergy 10-18-20 [facility] Repository (1 source) Metoclopramide Drug Allergy 10-18-20 [facility] Repository (1 source) Minocycline Drug Allergy 10-18-20 [facility] Repository (1 source) Penicillin Drug Allergy 10-18-20 [facility] Repository (1 source) Penicillins Drug allergy (disorder) 10-18-20 [facility] Repository (1 source) Sulfamethoxazole Drug Allergy 10-18-20 [facility] Repository (1 source) Sulfonamides (Antibiotic) Drug allergy (disorder) 10-18-20 [facility] Repository (1 source) Tetracycline Drug Allergy 10-18-20 [facility] Repository (1 source) Trimethoprim Drug Allergy 10-18-20 [facility] Repository Medications Current Medications Medication [...] 09-10-2022 Episodic Other aftercare (3 sources) Other fci (current) drug therapy; Translations: [Other fci (current) drug therapy] Onset: 03-12-2018 Episodic Other aftercare (1 source) 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 Patients having hematocrit values >55% require a special collection tube for coagulation studies. Please contact the laboratory at [phone] for redraw instructions. Alanine aminotransferase [En zymatic activity/volume] in Serum or PlasmaOrdered By: Michael Amador on 10-18-2023 ALT [Catalytic activity/Vol] 9 U/L 7-52 [facility] Albumin [Mass/volume] in Ser um or Plasma by Bromocresol green (BCG) dye binding methoOrdered By: Michael Amador on 10-18-2023 Albumin BCG dye [Mass/Vol] 3.9 g/dL 3.5-5.7 [facility] Alkaline phosphatase [Enzyma tic activity/volume] in Serum or PlasmaOrdered By: Michael Amador on 10-18-2023 ALP [Catalytic activity/Vol] 65 U/L 34-104 [facility] Aspartate aminotransferase [ Enzymatic activity/volume] in Serum or PlasmaOrdered By: Michael Amador on 10-18-2023 AST [Catalytic activity/Vol] 12 U/L 13-39 [facility] Basophils Auto (Bld) [#/Vol] Ordered By: Michael Amador on 10-18-2023 Basophils (Bld) [#/Vol] 0.0 10*3/uL 0.0-0.2 [facility] Basophils/100 WBC Auto (Bld) Ordered By: Michael Amador on 10-18-2023 Basophils/100 WBC (Bld) 0.3 % . [facility] Bilirubin.total [Mass/volume ] in Serum or PlasmaOrdered By: Michael Amador on 10-18-2023 Bilirubin [Mass/Vol] 0.5 mg/dL 0.3-1.0 [facility] Blood Cultureon 10-18-2023 Bacteria identified Cx Nom (Bld) NO GROWTH 5 DAYS PERFORMED BY: [place] [address] PATHOLOGIST EXPANDER MACHINE OPERATOR DAVID VERA M.D. [facility] Comment on above: Performed By: #### P TT, CUBLD, CBC, LACTIC, CMP, PT #### [address] Bacteria identified Cx Nom (Bld) NO GROWTH 5 DAYS PERFORMED BY: [place] [address] PATHOLOGIST EXPANDER MACHINE OPERATOR DVAID VERA M.D. [facility] Comment on above: Performed By: #### P TT, CUBLD, CBC, LACTIC, CMP, PT #### [facility] [address] [id number] [facility] CT sinus wo conon 10-18-2023 CT sinus wo con [facility] [place] [id number] Scan Report Signed Patient: Niels Mccullough JR MR#: [id number] : 1945 Acct:[id number] Age/Sex: 77 / M ADM Date: 10/18/23 Loc: ER Room: Type: [facility] ER Attending Dr: Copies to: Michael [...] Rachel Briseno M.D.10/18/2023 1:17 PM Dictation Location: [place] [address] Transcribed By: [facility] 10/18/231316 Dictated By: Rachel Briseno MD 10/18/231311 Signed By: 10/18/23 131 [facility] Calcium [Mass/volume] in Ser um or PlasmaOrdered By: Michael Amador on 10-18-2023 Calcium [Mass/Vol] 9.0 mg/dL 8.6-10.[address] [facility] Carbon dioxide, total [Moles /volume] in Serum or PlasmaOrdered By: Michael Amador on 10-18-2023 CO2 [Moles/Vol] 23.9 mmol/L 21.0-31.0 [facility] Chloride [Moles/volume] in S beth or PlasmaOrdered By: Michael Amador on 10-18-2023 Chloride [Moles/Vol] 105 mmol/L 98-107 [facility] Complete Blood Count Auto Di ffon 10-18-2023 Basophils (Bld) [#/Vol] 0.0 10*3/uL Normal 0.0-0.2 [facility] Comment on above: Result Comment: PERF ORMED BY: [place] [address] PATHOLOGIST EXPANDER MACHINE OPERATOR DAVID VERA M.D. Performed By: #### P TT, CUBLD, CBC, LACTIC, CMP, PT #### [facility] [address] [place] [address] Basophils/100 WBC (Bld) 0.3 % Normal . [facility] Comment on above: Performed By: #### P TT, CUBLD, CBC, LACTIC, CMP, PT #### [facility] [address] [place] [address] Eosinophils (Bld) [#/Vol] 0.1 10*3/uL Normal 0.0-0.45 [facility] Comment on above: Performed By: #### P TT, CUBLD, CBC, LACTIC, CMP, PT #### [facility] [address] [place] [address] Eosinophils/100 WBC (Bld) 0.9 % Normal . [facility] Comment on above: Performed By: #### P TT, CUBLD, CBC, LACTIC, CMP, PT #### [facility] [address] [place] [address] Erythrocyte distribution width (RBC) [Ratio] 14.9 % High 12.0-14.8 [facility] Comment on above: Performed By: #### P TT, CUBLD, CBC, LACTIC, CMP, PT #### [address] Hematocrit (Bld) [Volume fraction] 29.9 % Low 38.8-50.0 [facility] Comment on above: Performed By: #### P TT, CUBLD, CBC, LACTIC, CMP, PT #### [address] Hemoglobin (Bld) [Mass/Vol] 10.2 g/dL Low 13.0-17.0 [facility] Comment on above: Performed By: #### P TT, CUBLD, CBC, LACTIC, CMP, PT #### [address] Lymphocytes (Bld) [#/Vol] 0.9 10*3/uL Low 1.00-4.8 [facility] Comment on above: Performed By: #### P TT, CUBLD, CBC, LACTIC, CMP, PT #### [address] Lymphocytes/100 WBC (Bld) 10.2 % Normal . [facility] Comment on above: Performed By: #### P TT, CUBLD, CBC, LACTIC, CMP, PT #### [address] MCH (RBC) [Entitic mass] 32.4 pg Normal 27.5-35.2 [facility] Comment on above: Performed By: #### P TT, CUBLD, CBC, LACTIC, CMP, PT #### [address] MCV (RBC) [Entitic vol] 94.7 fL Normal 83.5-101 [facility] Comment on above: Performed By: #### P TT, CUBLD, CBC, LACTIC, CMP, PT #### [address] Mean Corpuscular HGB Conc 34.2 g/dL Normal 32.5-35.6 [facility] Comment on above: Performed By: #### P TT, CUBLD, CBC, LACTIC, CMP, PT #### [address] Monocytes (Bld) [#/Vol] 0.9 10*3/uL High 0.0-0.8 [facility] Comment on above: Performed By: #### P TT, CUBLD, CBC, LACTIC, CMP, PT #### [place] [address] [place] Monocytes/100 WBC (Bld) 19.23 % Normal 0.00-20.00 [facility] Comment on above: Performed By: #### P TT, CUBLD, CBC, LACTIC, CMP, PT #### [address] Monocytes/100 WBC (Bld) 9.6 % Normal . [facility] Comment on above: Performed By: #### P TT, CUBLD, CBC, LACTIC, CMP, PT #### [address] Neutrophils (Bld) [#/Vol] 7.2 10*3/uL Normal 1.8-7.7 [facility] Comment on above: Performed By: #### P TT, CUBLD, CBC, LACTIC, CMP, PT #### [address] Neutrophils/100 WBC (Bld) 79.0 % Normal . [facility] Comment on above: Performed By: #### P TT, CUBLD, CBC, LACTIC, CMP, PT #### [address] NRBC% 0.0 /100{WBC} Normal 0-0.5 [facility] Comment on above: Performed By: #### P TT, CUBLD, CBC, LACTIC, CMP, PT #### [address] Platelet mean volume (Bld) [Entitic vol] 7.0 fL Normal 6.6-10.1 [facility] Comment on above: Performed By: #### P TT, CUBLD, CBC, LACTIC, CMP, PT #### [facility] [address] Platelets (Bld) [#/Vol] 202 10*3/uL Normal 150-450 [facility] Comment on above: Performed By: #### P TT, CUBLD, CBC, LACTIC, CMP, PT #### [facility] [address] [place] [address] RBC (Bld) [#/Vol] 3.15 10*6/uL Low 3.90-5.60 [facility] Comment on above: Performed By: #### P TT, CUBLD, CBC, LACTIC, CMP, PT #### [facility] [address] [place] [address] WBC (Bld) [#/Vol] 9.1 10*3/uL Normal 4.1-10.[address] [facility] Comment on above: Performed By: #### P TT, CUBLD, CBC, LACTIC, CMP, PT #### [facility] [address] [place] [address] Comprehensive Metabolic Pane kalia 10-18-2023 Albumin [Mass/Vol] 3.9 g/dL Normal 3.5-5.[address] [facility] Comment on above: Performed By: #### P TT, CUBLD, CBC, LACTIC, CMP, PT #### [address] Albumin/Globulin [Mass ratio] 1.1 {ratio} Normal [facility] Comment on above: Performed By: #### P TT, CUBLD, CBC, LACTIC, CMP, PT #### [facility] [address] [place] [address] ALP [Catalytic activity/Vol] 65 U/L Normal 34-104 [facility] Comment on above: Performed By: #### P TT, CUBLD, CBC, LACTIC, CMP, PT #### [facility] [address] [place] [address] ALT [Catalytic activity/Vol] 9 U/L Normal 7-52 [facility] Comment on above: Performed By: #### P TT, CUBLD, CBC, LACTIC, CMP, PT #### [address] Anion gap [Moles/Vol] 9.8 mmol/L Normal 6.0-15.0 [facility] Comment on above: Performed By: #### P TT, CUBLD, CBC, LACTIC, CMP, PT #### [address] AST [Catalytic activity/Vol] 12 U/L Low 13-39 [facility] Comment on above: Performed By: #### P TT, CUBLD, CBC, LACTIC, CMP, PT #### [address] Bilirubin [Mass/Vol] 0.5 mg/dL Normal 0.3-1.0 [facility] Comment on above: Performed By: #### P TT, CUBLD, CBC, LACTIC, CMP, PT #### [address] Calcium [Mass/Vol] 9.0 mg/dL Normal 8.6-10.[address] [facility] Comment on above: Performed By: #### P TT, CUBLD, CBC, LACTIC, CMP, PT #### [address] Chloride [Moles/Vol] 105 mmol/L Normal 98-107 [facility] Comment on above: Performed By: #### P TT, CUBLD, CBC, LACTIC, CMP, PT #### [address] CO2 [Moles/Vol] 23.9 mmol/L Normal 21.0-31.0 [facility] Comment on above: Performed By: #### P TT, CUBLD, CBC, LACTIC, CMP, PT #### [address] Creatinine [Mass/Vol] 1.98 mg/dL High 0.70-1.30 [facility] Comment on above: Performed By: #### P TT, CUBLD, CBC, LACTIC, CMP, PT #### [address] Creatinine Clr Calc Pharmacy 35.87 [facility] Comment on above: Result Comment: PERF ORMED BY: [place] [address] PATHOLOGIST EXPANDER MACHINE OPERATOR DAVID VERA M.D. Performed By: #### P TT, CUBLD, CBC, LACTIC, CMP, PT #### [address] GFR/1.73 sq M.predicted MDRD (S/P/Bld) [Vol rate/Area] 34.364 mL/min/{1.73_m2} [facility] Comment on above: Performed By: #### P TT, CUBLD, CBC, LACTIC, CMP, PT #### [address] Globulin (S) [Mass/Vol] 3.7 g/dL [facility] Comment on above: Performed By: #### P TT, CUBLD, CBC, LACTIC, CMP, PT #### [address] Glucose [Mass/Vol] 114 mg/dL High 70-[address] [facility] Comment on above: Result Comment: [place] om Glucose Reference Range is dependent on time and content of last meal. Glucose of more than 200 mg/dL in a nonstressed, ambulatory subject supports the diagnosis of Diabetes Mellitus. ADA recommended reference range Performed By: #### P TT, CUBLD, CBC, LACTIC, CMP, PT #### [address] Potassium [Moles/Vol] 3.7 mmol/L Normal 3.5-5.1 [facility] Comment on above: Performed By: #### P TT, CUBLD, CBC, LACTIC, CMP, PT #### [address] Protein [Mass/Vol] 7.6 g/dL Normal 6.4-8.[address] [facility] Comment on above: Performed By: #### P TT, CUBLD, CBC, LACTIC, CMP, PT #### [facility] [address] [id number] [place] Sodium [Moles/Vol] 135 mmol/L Low 136-[address] [facility] Comment on above: Performed By: #### P TT, CUBLD, CBC, LACTIC, CMP, PT #### [facility] [address] [id number] [place] Urea nitrogen [Mass/Vol] 31 mg/dL High 7-25 [facility] Comment on above: Performed By: #### P TT, CUBLD, CBC, LACTIC, CMP, PT #### [facility] [address] Creatinine [Mass/volume] in Serum or PlasmaOrdered By: Michael Amador on 10-18-2023 Creatinine [Mass/Vol] 1.98 mg/dL 0.70-1.30 [facility] ECG 12 lead ECGon 10-18-2023 ECG 12 lead ECG [facility] [place] [address] [place] [address] Electrocardiograph Report Signed Patient: Niels Mccullough JR MR#: [id number] : 1945 Acct:[id number] Age/Sex: 77 / M ADM Date: 10/18/23 Loc: ER Room: Type: [facility] ER Attending Dr: Ordering Provider: Michael [...] MUS Signed By Jayesh Alex MD 10/18/23 5417 Normal [facility] Eosinophils Auto (Bld) [#/Vo l]Ordered By: Michael Amador on 10-18-2023 Eosinophils (Bld) [#/Vol] 0.1 10*3/uL 0.0-0.45 [facility] Eosinophils/100 WBC Auto (Bl d)Ordered By: Michael Amador on 10-18-2023 Eosinophils/100 WBC (Bld) 0.9 % . [facility] Erythrocyte distribution wid th Auto (RBC) [Ratio]Ordered By: Michael Amador on 10-18-2023 Erythrocyte distribution width (RBC) [Ratio] 14.9 % 12.0-14.8 [facility] Globulin Calc (S) [Mass/Vol] Ordered By: Michael Amador on 10-18-2023 Globulin (S) [Mass/Vol] 3.7 g/dL [facility] Glucose [Mass/volume] in Ser um or PlasmaOrdered By: Michael Amador on 10-18-2023 Glucose [Mass/Vol] 114 mg/dL 70-[address] [facility] Comment on above: ADA recommended refe rence rangeRandom Glucose Reference Range is dependent on time and content of last meal. Glucose of more than 200 mg/dL in a nonstressed, ambulatory subject supports the diagnosis of Diabetes Mellitus. Hematocrit Auto (Bld) [Volum e fraction]Ordered By: Michael Amador on 10-18-2023 Hematocrit (Bld) [Volume fraction] 29.9 % 38.8-50.0 [facility] Hemoglobin [Mass/volume] in BloodOrdered By: Michael Amador on 10-18-2023 Hemoglobin (Bld) [Mass/Vol] 10.2 g/dL 13.0-17.0 [facility] INR in Platelet poor plasma by Coagulation assayOrdered By: Michael Amador on 10-18-2023 INR Coag (PPP) [Relative time] 1.4 {INR} [facility] Comment on above: INR Therapeutic [...] on 10-18-2023 Lactate [Moles/Vol] 0.7 mmol/L 0.5-2.2 [facility] Lactic Acidon 10-18-2023 Lactate [Moles/Vol] 0.7 mmol/L Normal 0.5-2.2 [facility] Comment on above: Result Comment: PERF ORMED BY: [facility] [address] [place] [address] PATHOLOGIST EXPANDER MACHINE OPERATOR DAVID VERA M.D. Performed By: #### P TT, CUBLD, CBC, LACTIC, CMP, PT #### [address] Leukocytes [#/volume] correc alexys for nucleated erythrocytes in Blood by Automated counOrdered By: Michael Amador on 10-18-2023 WBC corrected for nucl RBC Auto (Bld) [#/Vol] 9.1 10*3/uL 4.1-10.5 [facility] Lymphocytes Auto (Bld) [#/Vo l]Ordered By: Michael Amador on 10-18-2023 Lymphocytes (Bld) [#/Vol] 0.9 10*3/uL 1.00-4.8 [facility] Lymphocytes/100 WBC Auto (Bl d)Ordered By: Michael Amador on 10-18-2023 Lymphocytes/100 WBC (Bld) 10.2 % . [facility] MCH Auto (RBC) [Entitic mass ]Ordered By: Michael Amador on 10-18-2023 MCH (RBC) [Entitic mass] 32.4 pg 27.5-35.2 [facility] MCHC Auto (RBC) [Mass/Vol]Or dered By: Michael Amador on 10-18-2023 MCHC (RBC) [Mass/Vol] 34.2 g/dL 32.5-35.6 [facility] MCV Auto (RBC) [Entitic vol] Ordered By: Michael Amaodr on 10-18-2023 MCV (RBC) [Entitic vol] 94.7 fL 83.5-101 [facility] Monocyte distribution width [Entitic volume] in Blood by AutomatedOrdered By: Michael Amador on 10-18-2023 Monocyte distribution width Auto (Bld) [Entitic vol] 19.23 % 0.00-20.00 [facility] Monocytes Auto (Bld) [#/Vol] Ordered By: Michael Amador on 10-18-2023 Monocytes (Bld) [#/Vol] 0.9 10*3/uL 0.0-0.8 [facility] Monocytes/100 WBC Auto (Bld) Ordered By: Michael Amador on 10-18-2023 Monocytes/100 WBC (Bld) 9.6 % . [facility] Neutrophils Auto (Bld) [#/Vo l]Ordered By: Michael Amador on 10-18-2023 Neutrophils (Bld) [#/Vol] 7.2 10*3/uL 1.8-7.7 [facility] Neutrophils/100 WBC Auto (Bl d)Ordered By: Michael Amador on 10-18-2023 Neutrophils/100 WBC (Bld) 79.0 % . [facility] No Panel InformationOrdered By: Michael Amador on 10-18-2023 Estimated GFR (CKD-EPI) 34.364 mL/Min [facility] Pharmacy Creatinine Clearance (Chem 35.87 [facility] Nucleated erythrocytes [Pres ence] in Blood by Automated countOrdered By: Michael Amador on 10-18-2023 Nucleated RBC Auto Ql (Bld) 0.0 /100{WBC} 0-0.5 [facility] Partial Thromboplastin Timeo n 10-18-2023 aPTT Coag (Bld) [Time] 31.2 s Normal 25.1-36.5 [facility] Comment on above: Result Comment: A he matocrit value greater than 55% may lead to inaccurate results in coagulation testing. Patients having hematocrit values >55% require a special collection tube for coagulation studies. Please contact the laboratory at [phone] for redraw instructions. PERFORMED BY: [place] [address] [place] [address] PATHOLOGIST EXPANDER MACHINE OPERATOR DAVID VERA M.D. Performed By: #### P TT, CUBLD, CBC, LACTIC, CMP, PT #### [facility] [address] [id number] [facility] Platelet mean volume Auto (B ld) [Entitic vol]Ordered By: Michael Amador on 10-18-2023 Platelet mean volume (Bld) [Entitic vol] 7.0 fL 6.6-10.1 [facility] Platelets Auto (Bld) [#/Vol] Ordered By: Michael Amador on 10-18-2023 Platelets (Bld) [#/Vol] 202 10*3/uL 150-450 [facility] Potassium [Moles/volume] in Serum or PlasmaOrdered By: Michael Amador on 10-18-2023 Potassium [Moles/Vol] 3.7 mmol/L 3.5-5.1 [facility] Protein [Mass/volume] in Ser um or PlasmaOrdered By: Michael Amador on 10-18-2023 Protein [Mass/Vol] 7.6 g/dL 6.4-8.[address] [facility] Prothrombin Time INRon 10-18 INR Coag (PPP) [Relative time] 1.4 {INR} Normal [facility] Comment on above: Result Comment: [...] TT, CUBLD, CBC, LACTIC, CMP, PT #### [facility] [address] [id number] [facility] PT Coag (PPP) [Time] 16.6 s High 9.0-12.9 [facility] Comment on above: Result Comment: A he matocrit value greater than 55% may lead to inaccurate results in coagulation testing. Patients having hematocrit values >55% require a special collection tube for coagulation studies. Please contact the laboratory at [phone] for redraw instructions. Performed By: #### P TT, CUBLD, CBC, LACTIC, CMP, PT #### [facility] [address] Prothrombin time (PT)Ordered By: Michael Amador on 10-18-2023 PT Coag (PPP) [Time] 16.6 s 9.0-12.9 [facility] Comment on above: A hematocrit value g reater than 55% may lead to inaccurate results in coagulation testing. Patients having hematocrit values >55% require a special collection tube for coagulation studies. Please contact the laboratory at [phone] for redraw instructions. RBC Auto (Bld) [#/Vol]Ordere d By: Michael Amador on 10-18-2023 RBC (Bld) [#/Vol] 3.15 10*6/uL 3.90-5.60 [facility] Serum or plasma albumin/glob ulin mass ratioOrdered By: Michael Amador on 10-18-2023 Albumin/Globulin [Mass ratio] 1.1 {ratio} [facility] Serum or plasma anion gap de terminationOrdered By: Michael Amador on 10-18-2023 Anion gap [Moles/Vol] 9.8 mmol/L 6.0-15.0 [facility] Sodium [Moles/volume] in Ser um or PlasmaOrdered By: Michael Amador on 10-18-2023 Sodium [Moles/Vol] 135 mmol/L 136-[address] [facility] Superficial Wound Cultureon 10-18-2023 Superficial Wound Culture [...] RESISTANT TO ALL B-LACTAM DRUGS. PERFORMED BY: [facility] [address] [place] [address] PATHOLOGIST EXPANDER MACHINE OPERATOR DAVID VERA M.D. Normal [facility] Comment on above: Performed By: #### C USUP #### [address] Urea nitrogen [Mass/volume] in Serum or PlasmaOrdered By: Michael Amador on 10-18-2023 Urea nitrogen [Mass/Vol] 31 mg/dL 7 [facility] WBC Auto (Bld) [#/Vol]Ordere d By: Michael Amador on 10-18-2023 WBC (Bld) [#/Vol] 9.1 10*3/uL 4.1-10.[address] [facility] BNPon 10-30-2022 Natriuretic peptide B (Bld) [Mass/Vol] 4309.0 pg/mL Critically high <=1,800.0 [facility] Comment on above: Performed By: #### C BC #### [facility] [address] [address] [address] Kelsea Guillermo CBC AUTO DIFFon 10-30-2022 BASO # 0.0 103/ul Normal 0.0-0.1 [facility] Comment on above: Performed By: #### C BC #### [facility] [address] [address] [address] Kelsea Guillermo Basophils/100 WBC (Bld) 0.4 % Normal 0.2-2.0 [facility] Comment on above: Performed By: #### C BC #### [facility] [address] [address] [address] Kelsea Guillermo EO # 0.5 103/ul Normal 0.0-0.7 [facility] Comment on above: Performed By: #### C BC #### [facility] [address] [place] [address] Dr. Kelsea Guillermo Eosinophils/100 WBC (Bld) 6.4 % Normal 0.9-7.0 [facility] Comment on above: Performed By: #### C BC #### [facility] [address] [place] [address] Dr. Kelsea Guillermo Erythrocyte distribution width (RBC) [Ratio] 13.3 % Normal 11.0-15.0 [facility] Comment on above: Performed By: #### C BC #### [facility] [address] [place] [address] Dr. Kelsea Guillermo Hematocrit (Bld) [Volume fraction] 33.9 % Critically low 42.0-54.0 [facility] Comment on above: Performed By: #### C BC #### [facility] [address] [place] [address] Dr. Kelsea Guillermo Hemoglobin (Bld) [Mass/Vol] 11.6 g/dL Critically low 14.0-18.0 [facility] Comment on above: Performed By: #### C BC #### [facility] [address] [place] [address] Dr. Kelsea Guillermo IG # 0.02 10e3/ul Normal 0.00-0.03 [facility] Comment on above: Performed By: #### C BC #### [facility] [address] [place] [address] Dr. Kelsea Guillermo IG % 0.3 % Normal 0.0-0.5 [facility] Comment on above: Performed By: #### C BC #### [facility] [address] [place] [address] Dr. Kelsea Guillermo LYMPH # 1.0 103/ul Critically low 1.2-3.8 [facility] Comment on above: Performed By: #### C BC #### [facility] [address] [place] [address] Dr. Kelsea Guillermo Lymphocytes/100 WBC (Bld) 14.0 % Critically low 20.5-60.0 [facility] Comment on above: Performed By: #### C BC #### [facility] [address] [place] [address] Dr. Kelsea Guillermo MANUAL DIFF REQ NO Normal [facility] Comment on above: Performed By: #### C BC #### [facility] [address] [place] [address] Dr. Kelsea Guillermo MCH (RBC) [Entitic mass] 32.5 pg Normal 25.9-34.0 [facility] Comment on above: Performed By: #### C BC #### [facility] [address] [place] [address] Dr. Kelsea Guillermo MCHC (RBC) [Mass/Vol] 34.2 g/dL Normal 29.9-35.2 [facility] Comment on above: Performed By: #### C BC #### [facility] [address] [place] [address] Dr. Kelsea Guillermo MCV (RBC) [Entitic vol] 95.0 fL Critically high 80.0-94.0 [facility] Comment on above: Performed By: #### C BC #### [facility] [address] [place] [address] Dr. Kelsea Guillermo MONO # 0.6 103/ul Normal 0.3-0.8 [facility] Comment on above: Performed By: #### C BC #### [facility] [address] [place] [address] Dr. Kelsea Guillermo Monocytes/100 WBC (Bld) 8.7 % Normal 1.7-12.0 [facility] Comment on above: Performed By: #### C BC #### [facility] [address] [place] [address] Dr. Kelsea Guillermo NEUT # 5.0 103/ul Normal 1.4-6.5 [facility] Comment on above: Performed By: #### C BC #### [facility] [address] [place] [address] Dr. Kelsea Guillermo Neutrophils/100 WBC (Bld) 70.2 % Normal 43.0-75.0 [facility] Comment on above: Performed By: #### C BC #### [facility] [address] [place], [place] [address] Dr. Kelsea Guillermo Platelet mean volume (Bld) [Entitic vol] 9.1 fL Critically low 9.5-13.5 [facility] Comment on above: Performed By: #### C BC #### [facility] [address] [place], [place] [address] Dr. Kelsea Guillermo PLT 171 103/ul Normal 150-450 [facility] Comment on above: Performed By: #### C BC #### [facility] [address] [place], [place] [address] Dr. Kelsea Guillermo RBC 3.57 106/ul Critically low 4.70-6.10 [facility] Comment on above: Performed By: #### C BC #### [facility] [address] [place], [place] [address] Dr. Kelsea Guillermo WBC 7.2 103/ul Normal 4.0-11.0 [facility] Comment on above: Performed By: #### C BC #### [facility] [address] [place], [place] [address] HEAD WO CONon [...] Truong ELAM Date: 2022-10-30 21:14 Normal [facility] Covid-19 PCR ([facility])on SARS-CoV-2 (COVID-19) RNA SHALA+probe Ql (Unsp spec) Not detected Normal NOT DETECTED [facility] Comment on above: Result Comment: When diagnostic [...] for this test is supported by the [place] of Health and Human Service's declaration that [...] longer be used). Performed By: #### C [facility] #### [facility] [address] [place] [address] Dr. Kelsea Guillermo INFLUENZA A AND B AGon 10-30 INFLUANEGH SEE BELOW Normal [facility] Comment on above: Result Comment: Nega tive for Flu A protein angiten. Infection due to Flu A cannot be ruled out. Flu A angiten in the sample may be below the detection limit of the test. Performed By: #### C BC #### [facility] [address] [place] [address] Dr. Kelsea Guillermo [facility] SEE BELOW Normal [facility] Comment on above: Result Comment: Nega tive for Flu B protein antigen. Infection due to Flu B cannot be ruled out. Flu B antigen in the sample may be below the detection limit of the test. Performed By: #### C BC #### [facility] [address] [place] [address] Dr. Kelsea Guillermo INFLUENZA A AG Negative Normal NEGATIVE SEE COMMENT [facility] Comment on above: Performed By: #### C BC #### [facility] [address] [place] [address] Dr. Kelsea Guillermo INFLUENZA B AG Negative Normal NEGATIVE SEE COMMENT [facility] Comment on above: Performed By: #### C BC #### [facility] [address] [place] [address] Dr. Kelsea Guillermo PROF 14(COMP METB)on 023 Albumin [Mass/Vol] 3.7 g/dL Normal 3.4-5.0 [facility] Comment on above: Performed By: #### C BC #### [facility] [address] [place] [address] Dr. Kelsea Guillermo Albumin/Globulin [Mass ratio] 0.9 {ratio} Normal [facility] Comment on above: Performed By: #### C BC #### [facility] [address] [place] [address] Dr. Kelsea Guillermo ALP [Catalytic activity/Vol] 110 U/L Normal 46-116 [facility] Comment on above: Performed By: #### C BC #### [facility] [address] [place] [address] Dr. Kelsea Guillermo ALT [Catalytic activity/Vol] 12 U/L Critically low 16-63 [facility] Comment on above: Performed By: #### C BC #### [facility] [address] [place] [address] Dr. Kelsea Guillermo Anion gap [Moles/Vol] 12.3 mmol/L Normal [facility] Comment on above: Performed By: #### C BC #### [facility] [address] [address] [address] Kelsea Guillermo AST [Catalytic activity/Vol] 18 U/L Normal 15-37 [facility] Comment on above: Performed By: #### C BC #### [facility] [address] [address] [address] Kelsea Guillermo Bilirubin [Mass/Vol] 0.3 mg/dL Normal 0.2-1.0 [facility] Comment on above: Performed By: #### C BC #### [facility] [address] [address] [address] Kelsea Guillermo Calcium [Mass/Vol] 8.4 mg/dL Critically low 8.5-10.1 [facility] Comment on above: Performed By: #### C BC #### [facility] [address] [address] [address] Kelsea Guillermo Chloride [Moles/Vol] 100 mmol/L Normal 98-107 [facility] Comment on above: Performed By: #### C BC #### [facility] [address] [address] [address] Kelsea Guillermo CO2 [Moles/Vol] 26.7 mmol/L Normal 21.0-32.0 [facility] Comment on above: Performed By: #### C BC #### [facility] [address] [address] [address] Kelsea Guillermo Creatinine [Mass/Vol] 2.01 mg/dL Critically high 0.70-1.30 [facility] Comment on above: Performed By: #### C BC #### [facility] [address] [address] [address] Kelsea Guillermo EGFR-AF GUYANESE 39 mL/min/1.73m2 Critically low >=60 [facility] Comment on above: Performed By: #### C BC #### [facility] [address] [address] [address] Kelsea Guillermo EGFR-NON AF GUYANESE 32 mL/min/1.73m2 Critically low >=60 [facility] Comment on above: Performed By: #### C BC #### [facility] [address] [address] [address] Kelsea Guillermo Globulin (S) [Mass/Vol] 3.9 g/dL Normal [facility] Comment on above: Performed By: #### C BC #### [facility] [address] [address] [address] Kelsea Guillermo Glucose [Mass/Vol] 108 mg/dL Critically high 74-106 [facility] Comment on above: Performed By: #### C BC #### [facility] [address] [place] [address] Dr. Kelsea Guillermo Potassium [Moles/Vol] 3.0 mmol/L Critically low 3.5-5.1 [facility] Comment on above: Performed By: #### C BC #### [facility] [address] [place] [address] Dr. Kelsea Guillermo Protein [Mass/Vol] 7.6 g/dL Normal 6.4-8.2 [facility] Comment on above: Performed By: #### C BC #### [facility] [address] [place] [address] Dr. Kelsea Guillermo Sodium [Moles/Vol] 136 mmol/L Normal 136-145 [facility] Comment on above: Performed By: #### C BC #### [facility] [address] [place] [address] Dr. Kelsea Guillermo Urea nitrogen [Mass/Vol] 24.0 mg/dL Critically high 7.0-18.0 [facility] Comment on above: Performed By: #### C BC #### [facility] [address] [place] [address] Dr. Kelsea Guillermo Urea nitrogen/Creatinine [Mass ratio] 11.9 mg/mg Normal [facility] Comment on above: Performed By: #### C BC #### [facility] [address] [place] [address] Dr. Kelsea Guillermo PROTIMEon 10-30-2022 INR Coag (PPP) [Relative time] 2.35 {INR} Normal [facility] Comment on above: Performed By: #### P T, PTT #### [facility] [address] [place] [address] Dr. Kelsea Guillermo INR GUIDELINES SEE BELOW Normal [facility] Comment on above: Result Comment: AGUILA RED INR: 2.0 - 3.0 CONDITIONS NOT LISTED BELOW 2.5 - 3.5 FOR PROSTHETIC HEART VALVE REPLACEMENT 2.5 - 3.5 RECURRENT THROMBOSIS Performed By: #### P T, PTT #### [facility] [address] [place] [address] Dr. Kelsea Guillermo PT Coag (PPP) [Time] 24.0 s Critically high 9.0-11.6 [facility] Comment on above: Performed By: #### P T, PTT #### [facility] [address] [place] [address] Dr. Kelsea Guillermo PTTon 10-30-2022 aPTT Coag (Bld) [Time] 47.8 s Critically high 22.3-36. 2 [facility] Comment on above: Performed By: #### P T, PTT #### [facility] [address] [place] [address] Dr. Kelsea Guillermo TROPONIN, HIGH SENSITIVITYon 10-30-2022 HSTROP 21.8 pg/mL Normal 4.0-76.1 [facility] Comment on above: Result Comment: CUT- OFF POINTS HAVE BEEN ESTABLISHED BASED ON THE FOURTH UNIVERSAL DEFINITIONS OF MYOCARDIAL INFARCTION. THE UPPER REFERENCE LIMIT (URL) OF TROPONIN, DEFINED THE 99TH PERCENTILE OF cTnI DISTRIBUTION IN A REFERENCE POPULATION, HAS BEEN CONFIRMED THE DECISION THRESHOLD FOR PR DIAGNOSIS. Performed By: #### C BC #### [facility] [address] [place] [address] Dr. Kelsea Guillermo XR CHEST 1 Von [...] MIKA MARI Date: 2022-10-30 20:10 Normal [facility] PROTIMEon 09-10-2022 INR Coag (PPP) [Relative time] 2.04 {INR} Normal [facility] Comment on above: Performed By: #### C BC #### [facility] [address] [place] [address] Dr. Kelsea Guillermo INR GUIDELINES SEE BELOW Normal [facility] Comment on above: Result Comment: AGUILA RED INR: 2.0 - 3.0 CONDITIONS NOT LISTED BELOW 2.5 - 3.5 FOR PROSTHETIC HEART VALVE REPLACEMENT 2.5 - 3.5 RECURRENT THROMBOSIS Performed By: #### C BC #### [facility] [address] [place] [address] Dr. Kelsea Guillermo PT Coag (PPP) [Time] 21.0 s Critically high 9.0-11.6 [facility] Comment on above: Performed By: #### C BC #### [facility] [address] [place] [address] Dr. Kelsea Guillermo CARDIAC ISIDRO 3-6on 2 CK [Catalytic activity/Vol] 62 U/L Normal 39-308 [facility] Comment on above: Performed By: #### C MREP #### [facility] [address] [place] [address] Dr. Kelsea Guillermo CK.MB [Mass/Vol] 1.28 ng/mL Normal <=3.60 [facility] Comment on above: Performed By: #### C MREP #### [facility] [address] [place] [address] Dr. Kelsea Guillermo HSTROP 19.5 pg/mL Normal 4.0-76.1 [facility] Comment on above: Result Comment: CUT- OFF POINTS HAVE BEEN ESTABLISHED BASED ON THE FOURTH UNIVERSAL DEFINITIONS OF MYOCARDIAL INFARCTION. THE UPPER REFERENCE LIMIT (URL) OF TROPONIN, DEFINED THE 99TH PERCENTILE OF cTnI DISTRIBUTION IN A REFERENCE POPULATION, HAS BEEN CONFIRMED THE DECISION THRESHOLD FOR PR DIAGNOSIS. Performed By: #### C MREP #### [facility] [address] [place] [address] ABD/PELVIS WO CONon [...] SARY RIGGS Date: 2022-05-13 22:51 Normal [facility] LACTATE/LACTIC ACIDon 2021 Lactate [Moles/Vol] 0.5 mmol/L Normal 0.4-1.9 [facility] Comment on above: Performed By: #### L ACT #### [facility] [address] [address] [address] Kelsea Guillermo CARDIAC ISIDRO ADMITon 022 CK [Catalytic activity/Vol] 71 U/L Normal 39-308 [facility] Comment on above: Performed By: #### C MARK VARGAS #### [facility] [address] [place] [address] Dr. Kelsea Guillermo CK.MB [Mass/Vol] 1.26 ng/mL Normal <=3.60 [facility] Comment on above: Performed By: #### C MARK VARGAS #### [facility] [address] [place] [address] Dr. Kelsea Guillermo HSTROP 17.5 pg/mL Normal 4.0-76.1 [facility] Comment on above: Result Comment: CUT- OFF POINTS HAVE BEEN ESTABLISHED BASED ON THE FOURTH UNIVERSAL DEFINITIONS OF MYOCARDIAL INFARCTION. THE UPPER REFERENCE LIMIT (URL) OF TROPONIN, DEFINED THE 99TH PERCENTILE OF cTnI DISTRIBUTION IN A REFERENCE POPULATION, HAS BEEN CONFIRMED THE DECISION THRESHOLD FOR PR DIAGNOSIS. Performed By: #### C MARK VARGAS #### [facility] [address] [place] [address] Dr. Kelsea Guillermo ROLAND 115 ng/mL Critically high 16-96 [facility] Comment on above: Performed By: #### C MARK VARGAS #### [facility] [address] [place] [address] Dr. Kelsea Guillermo CBC AUTO DIFFon 05-13-2022 BASO # 0.0 103/ul Normal 0.0-0.1 [facility] Comment on above: Performed By: #### C BC #### [facility] [address] [place] [address] Dr. Kelsea Guillermo Basophils/100 WBC (Bld) 0.5 % Normal 0.2-2.0 [facility] Comment on above: Performed By: #### C BC #### [facility] [address] [place] [address] Dr. Kelsea Guillermo EO # 0.4 103/ul Normal 0.0-0.7 [facility] Comment on above: Performed By: #### C BC #### [facility] [address] [place] [address] Dr. Kelsea Guillermo Eosinophils/100 WBC (Bld) 5.3 % Normal 0.9-7.0 [facility] Comment on above: Performed By: #### C BC #### [facility] [address] [place] [address] Dr. Kelsea Guillermo Erythrocyte distribution width (RBC) [Ratio] 14.0 % Normal 11.0-15.0 [facility] Comment on above: Performed By: #### C BC #### [facility] [address] [place] [address] Dr. Kelsea Guillermo Hematocrit (Bld) [Volume fraction] 36.7 % Critically low 42.0-54.0 [facility] Comment on above: Performed By: #### C BC #### [facility] [address] [place] [address] Dr. Kelsea Guillermo Hemoglobin (Bld) [Mass/Vol] 11.8 g/dL Critically low 14.0-18.0 [facility] Comment on above: Performed By: #### C BC #### [facility] [address] [place] [address] Dr. Kelsea Guillermo IG # 0.09 10e3/ul Critically high 0.00-0.03 [facility] Comment on above: Performed By: #### C BC #### [facility] [address] [place] [address] Dr. Kelsea Guillermo IG % 1.2 % Critically high 0.0-0.5 [facility] Comment on above: Performed By: #### C BC #### [facility] [address] [place] [address] Dr. Kelsea Guillermo LYMPH # 1.6 103/ul Normal 1.2-3.8 [facility] Comment on above: Performed By: #### C BC #### [facility] [address] [place] [address] Dr. Kelsea Guillermo Lymphocytes/100 WBC (Bld) 21.9 % Normal 20.5-60.0 [facility] Comment on above: Performed By: #### C BC #### [facility] [address] [place] [address] Dr. Kelsea Guillermo MANUAL DIFF REQ NO Normal [facility] Comment on above: Performed By: #### C BC #### [facility] [address] [place] [address] Dr. Kelsea Guillermo MCH (RBC) [Entitic mass] 31.7 pg Normal 25.9-34.0 [facility] Comment on above: Performed By: #### C BC #### [facility] [address] [place] [address] Dr. Kelsea Guillermo MCHC (RBC) [Mass/Vol] 32.2 g/dL Normal 29.9-35.2 [facility] Comment on above: Performed By: #### C BC #### [facility] [address] [place] [address] Dr. Kelsea Guillermo MCV (RBC) [Entitic vol] 98.7 fL Critically high 80.0-94.0 [facility] Comment on above: Performed By: #### C BC #### [facility] [address] [place] [address] Dr. Kelsea Guillermo MONO # 0.7 103/ul Normal 0.3-0.8 [facility] Comment on above: Performed By: #### C BC #### [facility] [address] [place] [address] Dr. Kelsea Guillermo Monocytes/100 WBC (Bld) 9.4 % Normal 1.7-12.0 [facility] Comment on above: Performed By: #### C BC #### [facility] [address] [place] [address] Dr. Kelsea Guillermo NEUT # 4.5 103/ul Normal 1.4-6.5 [facility] Comment on above: Performed By: #### C BC #### [facility] [address] [place] [address] Dr. Kelsea Guillermo Neutrophils/100 WBC (Bld) 61.7 % Normal 43.0-75.0 [facility] Comment on above: Performed By: #### C BC #### [facility] [address] [place] [address] Dr. Kelsea Guillermo Platelet mean volume (Bld) [Entitic vol] 9.3 fL Critically low 9.5-13.5 [facility] Comment on above: Performed By: #### C BC #### [facility] [address] [place] [address] Dr. Kelsea Guillermo PLT 207 103/ul Normal 150-450 [facility] Comment on above: Performed By: #### C BC #### [facility] [address] [place] [address] Dr. Kelsea Guillermo RBC 3.72 106/ul Critically low 4.70-6.10 [facility] Comment on above: Performed By: #### C BC #### [facility] [address] [place] [address] Dr. Kelsea Guillermo WBC 7.4 103/ul Normal 4.0-11.0 [facility] Comment on above: Performed By: #### C BC #### [facility] [address] [place] [address] Dr. Kelsea Guillermo ER URINE PROFILEon 2 Bilirubin Ql (U) Negative Normal NEGATIVE [facility] Comment on above: Performed By: #### C BC #### [facility] [address] [place] [address] Dr. Kelsea Guillermo Clarity (U) CLEAR Normal CLEAR [facility] Comment on above: Performed By: #### C BC #### [facility] [address] [place] [address] Dr. Kelsea Guillermo Color (U) LT. YELLOW Normal YELLOW [facility] Comment on above: Performed By: #### C BC #### [facility] [address] [place] [address] Dr. Kelsea Guillermo ERUAHDustin A micrscopic examina tion will be performed if indicated. Normal [facility] Comment on above: Performed By: #### C BC #### [facility] [address] [place] [address] Dr. Kelsea Guillermo Glucose Ql (U) Negative Normal NEGATIVE [facility] Comment on above: Performed By: #### C BC #### [facility] [address] [place] [address] Dr. Kelsea Guillermo Hemoglobin Ql (U) Negative Normal NEGATIVE [facility] Comment on above: Performed By: #### C BC #### [facility] [address] [place] [address] Dr. Kelsea Guillermo Ketones Ql (U) Negative Normal NEGATIVE [facility] Comment on above: Performed By: #### C BC #### [facility] [address] [place] [address] Dr. Kelsea Guillermo LEUKOCYTES Negative Normal NEGATIVE [facility] Comment on above: Performed By: #### C BC #### [facility] [address] [place] [address] Dr. Kelsea Guillermo Nitrite Ql (U) Negative Normal NEGATIVE [facility] Comment on above: Performed By: #### C BC #### [facility] [address] [place] [address] Dr. Kelsea Guillermo pH (U) 5.5 [pH] Normal 5-9 [facility] Comment on above: Performed By: #### C BC #### [facility] [address] [place] [address] Dr. Kelsea Guillermo Protein (U) [Mass/Vol] 30 mg/dL Abnormal NEGAT CANDACE/ TRACE [facility] Comment on above: Performed By: #### C BC #### [facility] [address] [place] [address] Dr. Kelsea Guillermo SPEC GRAVITY 1.020 Normal 1.005-<=1. 025 [facility] Comment on above: Performed By: #### C BC #### [facility] [address] [place] [address] Dr. Kelsea Guillermo UR MICRO IND NOT INDICATED Normal [facility] Comment on above: Performed By: #### C BC #### [facility] [address] [place] [address] Dr. Kelsea Guillermo Urobilinogen Qn (U) 0.2 {Jennifer'U}/dL Normal 0.2 - 1. 0 [facility] Comment on above: Performed By: #### C BC #### [facility] [address] [place] [address] Dr. Kelsea Guillermo LACTATE/LACTIC ACIDon 2021 Lactate [Moles/Vol] 0.8 mmol/L Normal 0.4-1.9 [facility] Comment on above: Performed By: #### C BC #### [facility] [address] [place] [address] Dr. Kelsea Guillermo PROF 14(COMP METB)on 022 Albumin [Mass/Vol] 3.7 g/dL Normal 3.4-5.0 [facility] Comment on above: Performed By: #### C ALICIA, CMADM #### [facility] [address] [place] [address] Dr. Kelsea Guillermo Albumin/Globulin [Mass ratio] 0.9 {ratio} Normal [facility] Comment on above: Performed By: #### C ALICIA, CMADM #### [facility] [address] [place] [address] Dr. Kelsea Guillermo ALP [Catalytic activity/Vol] 133 U/L Critically high 46-116 [facility] Comment on above: Performed By: #### C ALICIA, CMADM #### [facility] [address] [place] [address] Dr. Kelsea Guillermo ALT [Catalytic activity/Vol] 18 U/L Normal 16-63 [facility] Comment on above: Performed By: #### C ALICIA, CMADM #### [facility] [address] [place] [address] Dr. Kelsea Guillermo Anion gap [Moles/Vol] 12.5 mmol/L Normal [facility] Comment on above: Performed By: #### C ALICIA, CMADM #### [facility] [address] [place] [address] Dr. Kelsea Guillermo AST [Catalytic activity/Vol] 14 U/L Critically low 15-37 [facility] Comment on above: Performed By: #### C ALICIA, CMADM #### [facility] [address] [place] [address] Dr. Kelsea Guillermo Bilirubin [Mass/Vol] 0.3 mg/dL Normal 0.2-1.0 [facility] Comment on above: Performed By: #### C MP, CMADM #### [facility] [address] [address] [address] Kelsea Guillermo Calcium [Mass/Vol] 9.0 mg/dL Normal 8.5-10.1 [facility] Comment on above: Performed By: #### C MP, CMADM #### [facility] [address] [address] [address] Kelsea Guillermo Chloride [Moles/Vol] 102 mmol/L Normal 98-107 [facility] Comment on above: Performed By: #### C MP, CMADM #### [facility] [address] [address] [address] Kelsea Guillermo CO2 [Moles/Vol] 27.7 mmol/L Normal 21.0-32.0 [facility] Comment on above: Performed By: #### C MP, CMADM #### [facility] [address] [place] [address] Dr. Kelsea Guillermo Creatinine [Mass/Vol] 1.83 mg/dL Critically high 0.70-1.30 [facility] Comment on above: Performed By: #### C MP, CMADM #### [facility] [address] [address] [address] Kelsea Guillermo EGFR-AF GUYANESE 44 mL/min/1.73m2 Critically low >=60 [facility] Comment on above: Performed By: #### C MP, CMADM #### [facility] [address] [address] [address] Kelsea Guillermo EGFR-NON AF GUYANESE 36 mL/min/1.73m2 Critically low >=60 [facility] Comment on above: Performed By: #### C MP, CMADM #### [facility] [address] [address] [address] Kelsea Guillermo Globulin (S) [Mass/Vol] 4.2 g/dL Normal [facility] Comment on above: Performed By: #### C MP, CMADM #### [facility] [address] [address] [address] Kelsea Guillermo Glucose [Mass/Vol] 101 mg/dL Normal 74-106 [facility] Comment on above: Performed By: #### C MP, CMADM #### [facility] [address] [address] [address] Kelsea Guillermo Potassium [Moles/Vol] 4.2 mmol/L Normal 3.5-5.1 [facility] Comment on above: Performed By: #### C MP, CMADM #### [facility] [address] [address] [address] Kelsea Guillermo Protein [Mass/Vol] 7.9 g/dL Normal 6.4-8.2 [facility] Comment on above: Performed By: #### C MP, CMADM #### [facility] [address] [address] [address] Kelsea Guillermo Sodium [Moles/Vol] 138 mmol/L Normal 136-145 [facility] Comment on above: Performed By: #### C MP, CMADM #### [facility] [address] [address] [address] Kelsea Guillermo Urea nitrogen [Mass/Vol] 24.0 mg/dL Critically high 7.0-18.0 [facility] Comment on above: Performed By: #### C MP, CMADM #### [facility] [address] [place] [address] Dr. Kelsea Guillermo Urea nitrogen/Creatinine [Mass ratio] 13.1 mg/mg Normal [facility] Comment on above: Performed By: #### C ALICIA, CMADM #### [facility] [address] [place] [address] Dr. Kelsea Guillermo XR CHEST 1 Von [...] DEVENDRA GUTIERREZ Date: 2022-05-13 20:48 Normal [facility] HIP LEFT 1 OR 2 VWS WITH PEL VISon 02-15-2022 HIP LEFT 1 OR 2 VWS WITH PELVIS [facility] Department of Radiology [address] [place] [address] Patient Name: NIELS MCCULLOUGH : 1945 Sex: M Age: Race: White Pt. Location: 85 Patient Status: D Ordered Date: 02/15/2022 2:40:00 [...] arthroplasty. Electronically signed: Mika Bolaños. Transcribed by: [email or web address], User Resident: Electronically Signed by: MIKA BOLAÑOS @ 02/18/2022 11:21 AM Normal [facility] Comment on above: Order Comment: evalu ate for Aspiration BASIC METABOLIC PANELon 01-25 Calcium [Mass/Vol] 7.7 mg/dL Low 8.6-10.3 [facility] Comment on above: Order Comment: No: D o not add to previous draw Performed By: #### 0 0071 ####[facility] [place] [address], [facility] Chloride [Moles/Vol] 106 mmol/L Normal 98-107 [facility] Comment on above: Order Comment: No: D o not add to previous draw Performed By: #### 0 0071 ####[facility] [place] [address], [facility] CO2 [Moles/Vol] 24 mmol/L Normal 21-31 [facility] Comment on above: Order Comment: No: D o not add to previous draw Performed By: #### 0 0071 ####[facility] [place] [address], [facility] Creatinine [Mass/Vol] 1.56 mg/dL High 0.70-1.30 [facility] Comment on above: Order Comment: No: D o not add to previous draw Performed By: #### 0 0071 ####[facility] [place] [address], [facility] eGFR- 53 ml/min/1.73sq m Abnormal >60 [facility] Comment on above: Order Comment: No: D o not add to previous draw Result Comment: Calc ulation may not be valid for patients over 70 years Performed By: #### 0 0071 ####[facility] [place] [address], [facility] eGFR- non- 44 ml/min/1.73sq m Abnormal >60 [facility] Comment on above: Order Comment: No: D o not add to previous draw Result Comment: Calc ulation may not be valid for patients over 70 years Performed By: #### 0 0071 ####[facility] [place] [address], [facility] Glucose [Mass/Vol] 104 mg/dL High 70-100 [facility] Comment on above: Order Comment: No: D o not add to previous draw Performed By: #### 0 0071 ####[facility] [facility] [address], [facility] Potassium [Moles/Vol] 3.8 mmol/L Normal 3.5-5.1 [facility] Comment on above: Order Comment: No: D o not add to previous draw Performed By: #### 0 0071 ####[facility] [facility] [address], [facility] Sodium [Moles/Vol] 137 mmol/L Normal 136-145 [facility] Comment on above: Order Comment: No: D o not add to previous draw Performed By: #### 0 0071 ####[facility] [facility] [address], [facility] Urea nitrogen [Mass/Vol] 27 mg/dL High 7-25 [facility] Comment on above: Order Comment: No: D o not add to previous draw Performed By: #### 0 0071 ####[facility] [facility].[address] CBC COMPLETE BLOOD COUNTon 0 - Erythrocyte distribution width (RBC) [Ratio] 14.5 % Normal 11.5-15.0 [facility] Comment on above: Order Comment: LEFT HIP SCREW HEAD TISSUE Performed By: #### 3 0338 #### [facility] [address] [place] [id number], [facility] Hematocrit (Bld) [Volume fraction] 24.7 % Low 39.0-50.0 [facility] Comment on above: Order Comment: LEFT HIP SCREW HEAD TISSUE Performed By: #### 3 0338 #### [facility] [address] [place] [address], [facility] Hemoglobin (Bld) [Mass/Vol] 8.1 g/dL Low 13.0-17.0 [facility] Comment on above: Order Comment: LEFT HIP SCREW HEAD TISSUE Performed By: #### 3 0338 #### [facility] [address] [facility] [place] [address], [facility] MCH (RBC) [Entitic mass] 32.5 pg Normal 27.0-33.0 [facility] Comment on above: Order Comment: LEFT HIP SCREW HEAD TISSUE Performed By: #### 3 0338 #### [facility] [address] [facility] [place] [address], [facility] MCHC (RBC) [Mass/Vol] 32.8 g/dL Normal 32.0-35.0 [facility] Comment on above: Order Comment: LEFT HIP SCREW HEAD TISSUE Performed By: #### 3 0338 #### [facility] [address] [place] [address], [facility] MCV (RBC) [Entitic vol] 99.2 fL High 82.0-98.0 [facility] Comment on above: Order Comment: LEFT HIP SCREW HEAD TISSUE Performed By: #### 3 0338 #### [facility] [address] Nucleated RBC/100 WBC (Bld) [Ratio] 0 % Normal 0-0 [facility] Comment on above: Order Comment: LEFT HIP SCREW HEAD TISSUE Performed By: #### 3 0338 #### [facility] [address] [place] [address], [facility] PLAT CNT 177 10*3/uL Normal 150-400 [facility] Comment on above: Order Comment: LEFT HIP SCREW HEAD TISSUE Performed By: #### 3 0338 #### [facility] [address] [place] [address], [facility] RBC (Bld) [#/Vol] 2.49 10*6/uL Low 4.20-5.70 [facility] Comment on above: Order Comment: LEFT HIP SCREW HEAD TISSUE Performed By: #### 3 0338 #### [facility] [address] [place] [address], [facility] WBC (Bld) [#/Vol] 10.19 10*3/uL Normal 4.00-10.60 [facility] Comment on above: Order Comment: LEFT HIP SCREW HEAD TISSUE Performed By: #### 3 0338 #### [facility] [address] [facility]. [address] PROTHROMBIN TIMEon 2 INR Coag (PPP) [Relative time] 1.25 {INR} High 0.91-1.16 [facility] Comment on above: Order Comment: LEFT [...] 1995;[id number]. Performed By: #### 3 0318 #### [facility] [address] [place] [address], [facility] PT Coag (PPP) [Time] 15.7 s High 12.3-14.8 The [facility] Comment on above: Order Comment: LEFT HIP FLUID #2 Result Comment: ALL RESULTS MUST BE INTERPRETED WITH RESPECT TO BLOOD DRAWING ARTIFACT OR DILUTION ERROR OF ANTICOAGULANT AT THE TIME OF SAMPLING. Performed By: #### 3 0318 #### [facility] [address] [place] [address], [facility] BASIC METABOLIC PANELon - Calcium [Mass/Vol] 7.9 mg/dL Low 8.6-10.3 [facility] Comment on above: Order Comment: evalu ate for Aspiration Performed By: #### 0 0071 ####[facility] [place] [address], [facility] Chloride [Moles/Vol] 104 mmol/L Normal 98-107 [facility] Comment on above: Order Comment: evalu ate for Aspiration Performed By: #### 0 0071 ####[facility] [place] [address], [facility] CO2 [Moles/Vol] 27 mmol/L Normal 21-31 [facility] Comment on above: Order Comment: evalu ate for Aspiration Performed By: #### 0 0071 ####[facility] [facility] [address], [facility] Creatinine [Mass/Vol] 1.78 mg/dL High 0.70-1.30 The [facility] Comment on above: Order Comment: evalu ate for Aspiration Performed By: #### 0 0071 ####[facility] [place] [address], [facility] eGFR- 45 ml/min/1.73sq m Abnormal >60 [facility] Comment on above: Order Comment: evalu ate for Aspiration Result Comment: Calc ulation may not be valid for patients over 70 years Performed By: #### 0 0071 ####[facility] eGFR- non- 37 ml/min/1.73sq m Abnormal >60 [facility] Comment on above: Order Comment: evalu ate for Aspiration Result Comment: Calc ulation may not be valid for patients over 70 years Performed By: #### 0 0071 ####[facility] [facility] [place] [address], [facility] Glucose [Mass/Vol] 115 mg/dL High 70-100 The [facility] Comment on above: Order Comment: evalu ate for Aspiration Performed By: #### 0 0071 ####[facility] [facility].[address] Potassium [Moles/Vol] 3.6 mmol/L Normal 3.5-5.1 [facility] Comment on above: Order Comment: evalu ate for Aspiration Performed By: #### 0 0071 ####[facility] [facility].[address] Sodium [Moles/Vol] 136 mmol/L Normal 136-145 [facility] Comment on above: Order Comment: evalu ate for Aspiration Performed By: #### 0 0071 ####[facility] [facility].[address] Urea nitrogen [Mass/Vol] 35 mg/dL High 7-25 [facility] Comment on above: Order Comment: evalu ate for Aspiration Performed By: #### 0 0071 ####[facility] [facility] [place] [address], [facility] CBC W/DIFFon 02-06-2022 ABS IMM GRANS 0.1 10*3/uL Normal 0.0-0.2 [facility] Comment on above: Order Comment: No: D o not add to previous draw Performed By: #### 5 0103 #### [facility] [address] [place] [address], [facility] ABS NEUTROPHILS 9.3 10*3/uL High 1.6-7.6 [facility] Comment on above: Order Comment: No: D o not add to previous draw Performed By: #### 5 0103 #### [facility] [address] [place] [address], [facility] Basophils (Bld) [#/Vol] 0.0 10*3/uL Normal 0.0-0.2 [facility] Comment on above: Order Comment: No: D o not add to previous draw Performed By: #### 5 0103 #### [facility] [address] [place] [address], [facility] Basophils/100 WBC (Bld) 0.3 % Normal 0.0-1.0 [facility] Comment on above: Order Comment: No: D o not add to previous draw Performed By: #### 5 0103 #### [facility] [address] [place] [address], [facility] Eosinophils (Bld) [#/Vol] 0.1 10*3/uL Normal 0.0-0.5 [facility] Comment on above: Order Comment: No: D o not add to previous draw Performed By: #### 5 0103 #### [facility] [address] [place] [address], [facility] Eosinophils/100 WBC (Bld) 0.4 % Normal 0.0-6.0 [facility] Comment on above: Order Comment: No: D o not add to previous draw Performed By: #### 5 0103 #### [facility] [address] [place] [address], [facility] Erythrocyte distribution width (RBC) [Ratio] 14.6 % Normal 11.5-15.0 [facility] Comment on above: Order Comment: No: D o not add to previous draw Performed By: #### 5 0103 #### [facility] [address] [place] [address], [place] Hematocrit (Bld) [Volume fraction] 25.3 % Low 39.0-50.0 [facility] Comment on above: Order Comment: No: D o not add to previous draw Performed By: #### 5 0103 #### [facility] [address] [place] [address], [facility] Hemoglobin (Bld) [Mass/Vol] 8.3 g/dL Low 13.0-17.0 [facility] Comment on above: Order Comment: No: D o not add to previous draw Performed By: #### 5 0103 #### [facility] [address] [place] [address], [facility] IMMATURE GRANS 0.6 % Normal 0.0-1.0 [facility] Comment on above: Order Comment: No: D o not add to previous draw Performed By: #### 5 0103 #### [facility] [address] [facility] [place] [address], [facility] Lymphocytes (Bld) [#/Vol] 1.3 10*3/uL Normal 1.2-4.0 [facility] Comment on above: Order Comment: No: D o not add to previous draw Performed By: #### 5 0103 #### [facility] [address] [facility] [place] [address], [facility] Lymphocytes/100 WBC (Bld) 10.8 % Low 20.0-45.0 [facility] Comment on above: Order Comment: No: D o not add to previous draw Performed By: #### 5 0103 #### [facility] [address] [facility] [place] [address], [facility] MCH (RBC) [Entitic mass] 31.8 pg Normal 27.0-33.0 [facility] Comment on above: Order Comment: No: D o not add to previous draw Performed By: #### 5 0103 #### [facility] [address] [place] [id number], [facility] MCHC (RBC) [Mass/Vol] 32.8 g/dL Normal 32.0-35.0 [facility] Comment on above: Order Comment: No: D o not add to previous draw Performed By: #### 5 0103 #### [facility] [address] [facility] [place] [address], [facility] MCV (RBC) [Entitic vol] 96.9 fL Normal 82.0-98.0 [facility] Comment on above: Order Comment: No: D o not add to previous draw Performed By: #### 5 0103 #### [facility] [address] [place] [address], [facility] Monocytes (Bld) [#/Vol] 1.1 10*3/uL High 0.1-1.0 [facility] Comment on above: Order Comment: No: D o not add to previous draw Performed By: #### 5 0103 #### [facility] [address] [place] [address], [facility] MONOS 9.1 % Normal 5.0-12.0 [facility] Comment on above: Order Comment: No: D o not add to previous draw Performed By: #### 5 0103 #### [facility] [address] [facility] [address], [facility] Neutrophils/100 WBC (Bld) 78.8 % High 40.0-72.0 [facility] Comment on above: Order Comment: No: D o not add to previous draw Performed By: #### 5 0103 #### [facility] [address] [place] [address], [facility] Nucleated RBC/100 WBC (Bld) [Ratio] 0 % Normal 0-0 [facility] Comment on above: Order Comment: No: D o not add to previous draw Performed By: #### 5 0103 #### [facility] [address] [place] [address], [facility] PLAT CNT 182 10*3/uL Normal 150-400 [facility] Comment on above: Order Comment: No: D o not add to previous draw Performed By: #### 5 3 #### [facility] [address] [place] [address], [facility] RBC (Bld) [#/Vol] 2.61 10*6/uL Low 4.20-5.70 [facility] Comment on above: Order Comment: No: D o not add to previous draw Performed By: #### 5 0103 #### [facility] [address] [place] [address], [facility] WBC (Bld) [#/Vol] 11.78 10*3/uL High 4.00-10.60 [facility] Comment on above: Order Comment: No: D o not add to previous draw Performed By: #### 5 0103 #### [facility] [address] [facility] [address] PROTHROMBIN TIMEon 2 INR Coag (PPP) [Relative time] 1.18 {INR} High 0.91-1.16 [facility] Comment on above: Order Comment: No: [...] RANGE. CHEST 1995;108:231S-246S. Performed By: #### 5 2821 ####[facility] [place] [address], [place] PT Coag (PPP) [Time] 15.1 s High 12.3-14.8 [facility] Comment on above: Order Comment: No: D o not add to previous draw Result Comment: ALL RESULTS MUST BE INTERPRETED WITH RESPECT TO BLOOD DRAWING ARTIFACT OR DILUTION ERROR OF ANTICOAGULANT AT THE TIME OF SAMPLING. Performed By: #### 5 6101 ####[facility] [place] [address], [place] UA,MICROSCOPIC REQUIREDon Appearance (U) SL CLOUDY Abnormal CLEAR [facility] Comment on above: Order Comment: No: D o not add to previous draw Performed By: #### 9 0150 #### [facility] [address] [place] [address], [place] Bilirubin Ql (U) Negative Normal NEGATIVE [facility] Comment on above: Order Comment: No: D o not add to previous draw Performed By: #### 9 0150 #### [facility] [address] [place] [address], [place] Color (U) YELLOW Normal YELLOW [facility] Comment on above: Order Comment: No: D o not add to previous draw Performed By: #### 9 0150 #### [facility] [address] [place] [address], [place] EPIS NONE SEEN Normal FEW,OCC,NO NE SEEN [facility] Comment on above: Order Comment: No: D o not add to previous draw Performed By: #### 9 0150 #### [facility] [address] [place] [address], [place] Glucose Ql (U) Negative Normal NEGATIVE [facility] Comment on above: Order Comment: No: D o not add to previous draw Performed By: #### 9 0150 #### [facility] [address] [place] [address], [place] Hemoglobin Ql (U) SMALL Abnormal NEGATIVE [facility] Comment on above: Order Comment: No: D o not add to previous draw Performed By: #### 9 0150 #### [facility] [address] [place] [address], [facility] KETONE Negative Normal NEGATIVE [facility] Comment on above: Order Comment: No: D o not add to previous draw Performed By: #### 9 0150 #### [facility] [address] [place] [address], [facility] LEUK JALYN Negative Normal NEGATIVE [facility] Comment on above: Order Comment: No: D o not add to previous draw Performed By: #### 9 0150 #### [facility] [address] [place] [address], [place] Nitrite Ql (U) Negative Normal NEGATIVE [facility] Comment on above: Order Comment: No: D o not add to previous draw Performed By: #### 9 0150 #### [facility] [address] [place] [address], [facility] pH (U) 5.0 [pH] Normal 5.0-8.0 [facility] Comment on above: Order Comment: No: D o not add to previous draw Performed By: #### 9 0150 #### [facility] [address] [place] [address], [facility] Protein Ql (U) 30 mg/dL Abnormal NEGATIVE [facility] Comment on above: Order Comment: No: D o not add to previous draw Performed By: #### 9 0150 #### [facility] [address] [place] [address], [facility] RBC 3-5 Abnormal NONE SEEN [facility] Comment on above: Order Comment: No: D o not add to previous draw Performed By: #### 9 0150 #### [facility] [address] [place] [address], [place] SPEC GRAV 1.016 Normal 1.015-1.02 0 [facility] Comment on above: Order Comment: No: D o not add to previous draw Performed By: #### 9 0150 #### [facility] [address] [facility] [place] [address], [facility] WBC UA 0-2 Abnormal NONE SEEN [facility] Comment on above: Order Comment: No: D o not add to previous draw Performed By: #### 9 0150 #### [facility] [address] [facility]. [address] APTTon 02-05-2022 aPTT Coag (Bld) [Time] 34.1 s Normal 25.0-35.0 Th e [facility] Comment on above: Order Comment: if [...] THIS PURPOSE. Performed By: #### 5 7307, [id number] ####[facility] BASIC METABOLIC PANELon 01-25 Calcium [Mass/Vol] 8.2 mg/dL Low 8.6-10.3 [facility] Comment on above: Order Comment: evalu ate for Aspiration Performed By: #### 0 0071 ####[facility] [place] [address], [facility] Chloride [Moles/Vol] 108 mmol/L High 98-107 [facility] Comment on above: Order Comment: evalu ate for Aspiration Performed By: #### 0 0071 ####[facility] [place] [address], [facility] CO2 [Moles/Vol] 22 mmol/L Normal 21-31 [facility] Comment on above: Order Comment: evalu ate for Aspiration Performed By: #### 0 0071 ####[facility] [place] [address], [facility] Creatinine [Mass/Vol] 1.64 mg/dL High 0.70-1.30 [facility] Comment on above: Order Comment: evalu ate for Aspiration Performed By: #### 0 0071 ####[facility] [place] [address], [facility] eGFR- 50 ml/min/1.73sq m Abnormal >60 [facility] Comment on above: Order Comment: evalu ate for Aspiration Result Comment: Calc ulation may not be valid for patients over 70 years Performed By: #### 0 0071 ####[facility] [place] [address], [facility] eGFR- non- 41 ml/min/1.73sq m Abnormal >60 [facility] Comment on above: Order Comment: evalu ate for Aspiration Result Comment: Calc ulation may not be valid for patients over 70 years Performed By: #### 0 0071 ####[facility] [place] [address], [facility] Glucose [Mass/Vol] 145 mg/dL High 70-100 [facility] Comment on above: Order Comment: evalu ate for Aspiration Performed By: #### 0 0071 ####[facility] [place] [address], [facility] Potassium [Moles/Vol] 3.9 mmol/L Normal 3.5-5.1 [facility] Comment on above: Order Comment: evalu ate for Aspiration Performed By: #### 0 0071 ####[facility] [place] [address], [facility] Sodium [Moles/Vol] 137 mmol/L Normal 136-145 [facility] Comment on above: Order Comment: evalu ate for Aspiration Performed By: #### 0 0071 ####[facility] [place] [address], [facility] Urea nitrogen [Mass/Vol] 27 mg/dL High 7-25 [facility] Comment on above: Order Comment: evalu ate for Aspiration Performed By: #### 0 0071 ####[facility] Operative Reporton 2 Operative Report MR#: [id number] I [facility] Pt. Name: Niels Mccullough Jr Room #: 6AB [id number] Discharge Date: Birthdate: 1945 OPERATIVE REPORT DATE [...] f (more content not included)... Normal [facility] PROTHROMBIN TIMEon 2 INR Coag (PPP) [Relative time] 1.27 {INR} High 0.91-1.16 [facility] Comment on above: Order Comment: if [...] CHEST 1995;108:231S-246S. Performed By: #### 5 7307, 74423 ####[facility] PT Coag (PPP) [Time] 15.9 s High 12.3-14.8 [facility] Comment on above: Order Comment: if no t already doneNo: Do not add to previous draw Result Comment: ALL RESULTS MUST BE INTERPRETED WITH RESPECT TO BLOOD DRAWING ARTIFACT OR DILUTION ERROR OF ANTICOAGULANT AT THE TIME OF SAMPLING. Performed By: #### 5 7307, 63055 ####[facility] *ANAEROBIC CULTUREon 022 *ANAEROBIC CULTURE Clinical Report: (D) Specimen/Source: TISSUE/INTRAOP SPEC Collected: 02/04/2022 17:29 Status: Final Last Updated: 02/09/2022 07:31 (1) LEFT HIP SCREW HEAD TISSUE CULT RES (Final) No Anaerobes Isolated 5 Days Normal [facility] Comment on above: Order Comment: No: D o not add to previous draw Performed By: #### 9 0150 #### [facility] [address] [place] [address], [facility] *ANAEROBIC CULTURE Clinical Report: (D) Specimen/Source: TISSUE/INTRAOP SPEC Collected: 02/04/2022 17:28 Status: Final Last Updated: 02/09/2022 07:31 (1) LEFT HIP NAIL HEAD CULT RES (Final) No Anaerobes Isolated 5 Days Normal [facility] Comment on above: Order Comment: LEFT HIP SCREW HEAD TISSUE Performed By: #### 3 0338 #### [facility] [address] [facility] [place] [address], [facility] *ANAEROBIC CULTURE Clinical Report: (D) Specimen/Source: FLUID/INTRAOP SPEC Collected: 02/04/2022 17:28 Status: Final Last Updated: 02/09/2022 07:31 (1) LEFT HIP FLUID #2 CULT RES (Final) No Anaerobes Isolated 5 Days Normal [facility] Comment on above: Order Comment: LEFT HIP SCREW HEAD TISSUE Performed By: #### 3 0338 #### [facility] [address] [place] [address], [facility] *ANAEROBIC CULTURE Clinical Report: (D) Specimen/Source: FLUID/INTRAOP SPEC Collected: 02/04/2022 17:26 Status: Final Last Updated: 02/09/2022 07:31 (1) LEFT HIP FLUID #1 CULT RES (Final) No Anaerobes Isolated 5 Days Normal [facility] Comment on above: Order Comment: LEFT HIP FLUID #2 Performed By: #### 3 0318 #### [facility] [address] [place] [address], [facility] *ANAEROBIC CULTURE Clinical Report: (D) Specimen/Source: TISSUE/INTRAOP SPEC Collected: 02/04/2022 17:25 Status: Final Last Updated: 02/09/2022 07:31 (1) LEFT HIP CULT RES (Final) No Anaerobes Isolated 5 Days Normal [facility] Comment on above: Order Comment: No: D o not add to previous draw Performed By: #### 9 0150 #### [facility] [address] [place] [address], [facility] *BODY FLUID CULTUREon 2021 *BODY FLUID CULTURE Clinical Report: (D) Specimen/Source: FLUID/INTRAOP SPEC Collected: 02/04/2022 17:28 Status: Final Last Updated: 02/09/2022 06:34 (1) LEFT HIP FLUID #2 GRAM (Final) Moderate Polys No Bacteria Seen CULT RES (Final) No Growth Day 5 Normal [facility] Comment on above: Order Comment: LEFT HIP FLUID #2 Performed By: #### 3 0318 #### [facility] [address] [facility] [place] [address], [facility] *BODY FLUID CULTURE Clinical Report: (D) Specimen/Source: FLUID/INTRAOP SPEC Collected: 02/04/2022 17:26 Status: Final Last Updated: 02/09/2022 06:34 (1) LEFT HIP FLUID #1 GRAM (Final) Moderate Polys No Bacteria Seen CULT RES (Final) No Growth Day 5 Normal [facility] Comment on above: Order Comment: LEFT HIP SCREW HEAD TISSUE Performed By: #### 3 0338 #### [facility] [address] [facility] [place] [address], [facility] *FUNGAL CULTUREon 02-04-2022 *FUNGAL CULTURE Clinical Report: (D) Specimen/Source: TISSUE/INTRAOP SPEC Collected: 02/04/2022 17:29 Status: Final Last Updated: 04/10/2022 08:13 (1) LEFT HIP SCREW HEAD TISSUE FS (Final) No Yeast or Fungal Elements Seen CULT RES (Final) Culture negative for fungus Normal [facility] Comment on above: Order Comment: LEFT HIP SCREW HEAD TISSUE Performed By: #### 3 0338 #### [facility] [address] *FUNGAL CULTURE Clinical Report: (D) Specimen/Source: FLUID/INTRAOP SPEC Collected: 02/04/2022 17:28 Status: Final Last Updated: 04/10/2022 08:13 (1) LEFT HIP FLUID #2 FS (Final) No Yeast or Fungal Elements Seen CULT RES (Final) Culture negative for fungus Normal [facility] Comment on above: Order Comment: LEFT HIP FLUID #2 Performed By: #### 3 0323 #### [facility] [address] [place] [address], [facility] *FUNGAL CULTURE Clinical Report: (D) Specimen/Source: TISSUE/INTRAOP SPEC Collected: 02/04/2022 17:28 Status: Final Last Updated: 04/10/2022 08:13 (1) LEFT HIP NAIL HEAD FS (Final) No Yeast or Fungal Elements Seen CULT RES (Final) Culture negative for fungus Normal [facility] Comment on above: Order Comment: LEFT HIP SCREW HEAD TISSUE Performed By: #### 3 0338 #### [facility] [address] [place] [address], [facility] *FUNGAL CULTURE Clinical Report: (D) Specimen/Source: FLUID/INTRAOP SPEC Collected: 02/04/2022 17:26 Status: Final Last Updated: 04/10/2022 08:13 (1) LEFT HIP FLUID #1 FS (Final) No Yeast or Fungal Elements Seen CULT RES (Final) Culture negative for fungus Normal [facility] Comment on above: Order Comment: LEFT HIP FLUID #2 Performed By: #### 3 0318 #### [facility] [address] [place] [address], [place] *FUNGAL CULTURE Clinical Report: (D) Specimen/Source: TISSUE/INTRAOP SPEC Collected: 02/04/2022 17:25 Status: Final Last Updated: 04/10/2022 08:13 (1) LEFT HIP FS (Final) No Yeast or Fungal Elements Seen CULT RES (Final) Culture negative for fungus Normal [facility] Comment on above: Order Comment: LEFT HIP Performed By: #### 3 0323 #### [facility] [address] [place] [address], [facility] *TISSUE CULTUREon 02-04-2022 *TISSUE CULTURE Clinical Report: (D) Specimen/Source: TISSUE/INTRAOP SPEC Collected: 02/04/2022 17:29 Status: Final Last Updated: 02/09/2022 06:34 (1) LEFT HIP SCREW HEAD TISSUE GRAM (Final) Moderate Polys No Bacteria Seen CULT RES (Final) No Growth Day 5 Normal [facility] Comment on above: Order Comment: LEFT HIP SCREW HEAD TISSUE Performed By: #### 3 0338 #### [facility] [address] [place] [address], [facility] *TISSUE CULTURE Clinical Report: (D) Specimen/Source: TISSUE/INTRAOP SPEC Collected: 02/04/2022 17:28 Status: Final Last Updated: 02/09/2022 06:33 (1) LEFT HIP NAIL HEAD GRAM (Final) Moderate Polys No Bacteria Seen CULT RES (Final) No Growth Day 5 Normal [facility] Comment on above: Order Comment: LEFT HIP FLUID #2 Performed By: #### 3 0318 #### [facility] [address] [place] [address], [facility] *TISSUE CULTURE Clinical Report: (D) Specimen/Source: TISSUE/INTRAOP SPEC Collected: 02/04/2022 17:25 Status: Final Last Updated: 02/09/2022 06:33 (1) LEFT HIP GRAM (Final) Many Polys No Bacteria Seen CULT RES (Final) No Growth Day 5 Normal [facility] Comment on above: Order Comment: LEFT HIP SCREW HEAD TISSUE Performed By: #### 3 0338 #### [facility] [address] APTTon 02-04-2022 aPTT Coag (Bld) [Time] 43.4 s High 25.0-35.0 Th e [facility] Comment on above: Order Comment: No: [...] THIS PURPOSE. Performed By: #### 5 7307, 70600 ####[facility] ARTERIAL BLOOD GAS W/COOXon 02-04-2022 BASE EXCESS -2 mmol/L Normal -2-3 [facility] Comment on above: Performed By: #### 3 0318 #### [facility] [address] COHB 1.5 % Normal 0.0-1.5 [facility] Comment on above: Performed By: #### 3 0318 #### [facility] [address] DELIVERY SYSTEMS OR VENT Normal [facility] Comment on above: Performed By: #### 3 0318 #### [facility] [address] HCO3 (Bld) [Moles/Vol] 22 mmol/L Normal 21-28 Th e [facility] Comment on above: Performed By: #### 3 0318 #### [facility] [address] [place] [address], [facility] METHB 0.6 % Normal 0.0-1.5 [facility] Comment on above: Performed By: #### 3 0318 #### [facility] [address] [place] [address], [facility] MODALITY OR VENT Normal [facility] Comment on above: Performed By: #### 3 0318 #### [facility] [address] [place] [address], [facility] Oxygen (Bld) [Partial pressure] 203 mm[Hg] Critically high 83-108 [facility] Comment on above: Performed By: #### 3 0318 #### [facility] [address] Oxygen saturation in Blood 97.8 % High 94.0-97.0 [facility] Comment on above: Performed By: #### 3 0318 #### [facility] [address] [facility] [place] [address], [facility] PCO2 35 mmHg Normal 35-45 [facility] Comment on above: Performed By: #### 3 0318 #### [facility] [address] [facility] [place] [address], [facility] pH (Bld) 7.41 [pH] Normal 7.35-7.45 [facility] Comment on above: Performed By: #### 3 0318 #### [facility] [address] [facility] [place] [address], [facility] THB 10.0 g/dL Low 12.0-16.3 [facility] Comment on above: Performed By: #### 3 0318 #### [facility] [address] [place] [address], [facility] BASIC METABOLIC PANELon 04- Calcium [Mass/Vol] 8.6 mg/dL Normal 8.6-10.3 [facility] Comment on above: Order Comment: evalu ate for Aspiration Performed By: #### 1 0070, 79454, 70877 ####[facility] [place] [address], [facility] Chloride [Moles/Vol] 106 mmol/L Normal 98-107 [facility] Comment on above: Order Comment: evalu ate for Aspiration Performed By: #### 1 0070, 64449, 34254 ####[facility] [place] [address], [facility] CO2 [Moles/Vol] 25 mmol/L Normal 21-31 [facility] Comment on above: Order Comment: evalu ate for Aspiration Performed By: #### 1 0070, 78821, 74759 ####[facility] [place] [address], [place] Creatinine [Mass/Vol] 1.52 mg/dL High 0.70-1.30 [facility] Comment on above: Order Comment: evalu ate for Aspiration Performed By: #### 1 0070, 78515, 60281 ####[facility] [place] [address], [facility] eGFR- 54 ml/min/1.73sq m Abnormal >60 [facility] Comment on above: Order Comment: evalu ate for Aspiration Result Comment: Calc ulation may not be valid for patients over 70 years Performed By: #### 1 0070, 37338, 20108 ####[facility] [place] [address], [place] eGFR- non- 45 ml/min/1.73sq m Abnormal >60 [facility] Comment on above: Order Comment: evalu ate for Aspiration Result Comment: Calc ulation may not be valid for patients over 70 years Performed By: #### 1 0070, 08495, 24260 ####[facility] [place] [address], [place] Glucose [Mass/Vol] 98 mg/dL Normal 70-100 [facility] Comment on above: Order Comment: evalu ate for Aspiration Performed By: #### 1 0070, 84670, 76682 ####[facility] [place] [address], [place] Potassium [Moles/Vol] 3.7 mmol/L Normal 3.5-5.1 [facility] Comment on above: Order Comment: evalu ate for Aspiration Performed By: #### 1 0070, 86557, 87663 ####[facility] [place] [address], [facility] Sodium [Moles/Vol] 139 mmol/L Normal 136-145 [facility] Comment on above: Order Comment: evalu ate for Aspiration Performed By: #### 1 0070, 87320, 47303 ####[facility] [place] [address], [facility] Urea nitrogen [Mass/Vol] 25 mg/dL Normal 7-25 [facility] Comment on above: Order Comment: evalu ate for Aspiration Performed By: #### 1 0070, 00482, 86684 ####[facility] [place] [address], [facility] CALCIUM IONIZED CBGLon 02-04 IONIZED CALCIUM 1.11 mmol/L Low 1.13-1.32 [facility] Comment on above: Performed By: #### 3 0318 #### [facility] [address] [place] [address], [facility] CBC COMPLETE BLOOD COUNTon 0 02-04-2022 Erythrocyte distribution width (RBC) [Ratio] 14.4 % Normal 11.5-15.0 [facility] Comment on above: Order Comment: LEFT HIP SCREW HEAD TISSUE Performed By: #### 3 0338 #### [facility] [address] [place] [address], [facility] Hematocrit (Bld) [Volume fraction] 34.1 % Low 39.0-50.0 [facility] Comment on above: Order Comment: LEFT HIP SCREW HEAD TISSUE Performed By: #### 3 0338 #### [facility] [address] [place] [address], [facility] Hemoglobin (Bld) [Mass/Vol] 11.3 g/dL Low 13.0-17.0 [facility] Comment on above: Order Comment: LEFT HIP SCREW HEAD TISSUE Performed By: #### 3 0338 #### [facility] [address] [facility] [place] [address], [facility] MCH (RBC) [Entitic mass] 32.1 pg Normal 27.0-33.0 [facility] Comment on above: Order Comment: LEFT HIP SCREW HEAD TISSUE Performed By: #### 3 0338 #### [facility] [address] [facility] MCHC (RBC) [Mass/Vol] 33.1 g/dL Normal 32.0-35.0 [facility] Comment on above: Order Comment: LEFT HIP SCREW HEAD TISSUE Performed By: #### 3 0338 #### [facility] [address] [facility] MCV (RBC) [Entitic vol] 96.9 fL Normal 82.0-98.0 [facility] Comment on above: Order Comment: LEFT HIP SCREW HEAD TISSUE Performed By: #### 3 0338 #### [facility] [address] Nucleated RBC/100 WBC (Bld) [Ratio] 0 % Normal 0-0 [facility] Comment on above: Order Comment: LEFT HIP SCREW HEAD TISSUE Performed By: #### 3 0338 #### [facility] [address] [place] [address], [facility] PLAT CNT 213 10*3/uL Normal 150-400 [facility] Comment on above: Order Comment: LEFT HIP SCREW HEAD TISSUE Performed By: #### 3 0338 #### [facility] [address] [facility] [place] [address], [facility] RBC (Bld) [#/Vol] 3.52 10*6/uL Low 4.20-5.70 [facility] Comment on above: Order Comment: LEFT HIP SCREW HEAD TISSUE Performed By: #### 3 0338 #### [facility] [address] WBC (Bld) [#/Vol] 8.15 10*3/uL Normal 4.00-10.60 [facility] Comment on above: Order Comment: LEFT HIP SCREW HEAD TISSUE Performed By: #### 3 0338 #### [facility] [address] [place] [address], [facility] MAGNESIUM BLOODon 02-04-2022 Magnesium [Mass/Vol] 2.2 mg/dL Normal 1.9-2.7 [facility] Comment on above: Order Comment: evalu ate for Aspiration Performed By: #### 1 0070, [id number], 69831 ####[facility] PHOSPHORUS BLOODon 2 Phosphate [Mass/Vol] 3.0 mg/dL Normal 2.5-5.0 The [facility] Comment on above: Order Comment: No: D o not add to previous draw Performed By: #### 1 0070, 44168, 42679 ####[facility] POC GLUCOSE LABon 02-04-2022 Glucose [Mass/Vol] 99 mg/dL Normal 70-100 [facility] Comment on above: Performed By: #### 8 5499 ####[facility] POC SARS COV2 IDon 2 SARS-CoV-2 (COVID-19) RNA SHALA+probe Ql (Unsp spec) Negative Normal NEGATIVE The [facility] Comment on above: Result Comment: ID [...] Accreditation. Performed By: #### 3 1921 #### [address] PORTABLE HIP LEFT 1 OR 2 VWS WITH PELVISon 02-04-2022 PORTABLE HIP LEFT 1 OR 2 VWS WITH PELVIS [facility] Department of Radiology [address] [place] [id number] Patient Name: NIELS MCCULLOUGH : 1945 Sex: M Age: Race: White Pt. Location: [address] [place] [address] Patient Status: I Ordered Date: 02/04/2022 8:00:00 [...] fracture Electronically signed: Nohemi Graves. Transcribed by: [id number], User Resident: Electronically Signed by: NOHEMI GRAVES @ 02/04/2022 09:32 PM Normal [facility] Comment on above: Order Comment: evalu ate for Aspiration POTASSIUM WHOLE BLOOD CBGLon 02-04-2022 Potassium [Moles/Vol] 3.5 mmol/L Normal 3.4-5.2 [facility] Comment on above: Performed By: #### 3 0318 #### [facility] [address] PROTHROMBIN TIMEon 2 INR Coag (PPP) [Relative time] 1.70 {INR} High 0.91-1.16 The [facility] Comment on above: Order Comment: No: [...] CHEST 1995;108:231S-246S. Performed By: #### 5 7307, 50698 ####[facility]3000 [facility] [place] [address], [facility] PT Coag (PPP) [Time] 20.0 s High 12.3-14.8 The [facility] Comment on above: Order Comment: No: D o not add to previous draw Result Comment: ALL RESULTS MUST BE INTERPRETED WITH RESPECT TO BLOOD DRAWING ARTIFACT OR DILUTION ERROR OF ANTICOAGULANT AT THE TIME OF SAMPLING. Performed By: #### 5 7307, 94814 ####[facility]3000 [facility].[address] INR Coag (PPP) [Relative time] 2.90 {INR} High 0.91-1.16 The [facility] Comment on above: Order Comment: 12 [...] CHEST 1995;108:231S-246S. Performed By: #### 5 6101 ####[facility] [place] [address], [facility] PT Coag (PPP) [Time] 30.1 s High 12.3-14.8 The [facility] Comment on above: Order Comment: 12 ho urs post vitamin K administration/pre-procedure warfarin reversalNo: Do not add to previous draw Result Comment: ALL RESULTS MUST BE INTERPRETED WITH RESPECT TO BLOOD DRAWING ARTIFACT OR DILUTION ERROR OF ANTICOAGULANT AT THE TIME OF SAMPLING. Performed By: #### 5 6101 ####[facility]3000 [facility] [place] [address], [facility] RBC'S 1 UNITon 02-04-2022 CROSSMATCH INTERP 1 COMP Normal [facility] Comment on above: Performed By: #### 8 6001 ####[facility]3000 [facility] [place] [address], [facility] PRODUCT CODE 1 E0336 Normal [facility] Comment on above: Performed By: #### 8 6001 ####[facility] [facility] [place] [address], [facility] PRODUCT STATUS 1 RE Normal [facility] Comment on above: Result Comment: Resu lt changed by IF on 02/08/2022 07:21. The previous value was XM. Performed By: #### 8 6001 ####[facility] [facility] [place] [address], [facility] UNIT ABO 1 O Normal [facility] Comment on above: Performed By: #### 8 6001 ####[facility] [facility] [place] [address], [facility] UNIT ID 1 [id number] Normal The [facility] Comment on above: Performed By: #### 8 6001 ####[facility] [facility] [place] [address], [facility] UNIT RH 1 Negative Normal [facility] Comment on above: Performed By: #### 8 6001 ####[facility]3000 [facility].[address] SODIUM WHOLE BLOOD CBGLon Sodium [Moles/Vol] 136.0 mmol/L Normal 136.0-146 . 0 [facility] Comment on above: Performed By: #### 3 0318 #### [facility] [address] [facility] [place] [address], [facility] TYPE AND SCREENon 02-04-2022 ABO INTERPRETATION O Normal The [facility] Comment on above: Performed By: #### 3 0318 #### [facility] [address] [facility] [place] [address], [facility] RH INTERPRETATION Negative Normal [facility] Comment on above: Performed By: #### 3 0318 #### [facility] [address] [facility]. [address] APTTon 02-03-2022 aPTT Coag (Bld) [Time] 64.0 s High 25.0-35.0 Th e [facility] Comment on above: Result Comment: ALL [...] THIS PURPOSE. Performed By: #### 5 6101, 79821 ####[facility]3000 [facility] [address], [facility] CBC W/DIFFon 02-03-2022 ABS IMM GRANS 0.0 10*3/uL Normal 0.0-0.2 The [facility] Comment on above: Performed By: #### 3 0338 #### [facility] [address] [facility] [place] [address], [facility] ABS NEUTROPHILS 5.8 10*3/uL Normal 1.6-7.6 The [facility] Comment on above: Performed By: #### 3 0338 #### [facility] [address] [place] [address], [facility] Basophils (Bld) [#/Vol] 0.0 10*3/uL Normal 0.0-0.2 The [facility] Comment on above: Performed By: #### 3 0338 #### [facility] [address] [place] [address], [facility] Basophils/100 WBC (Bld) 0.5 % Normal 0.0-1.0 The [facility] Comment on above: Performed By: #### 3 0338 #### [facility] [address] [place] [address], [facility] Eosinophils (Bld) [#/Vol] 0.2 10*3/uL Normal 0.0-0.5 The [facility] Comment on above: Performed By: #### 3 0338 #### [facility] [address] [place] [address], [facility] Eosinophils/100 WBC (Bld) 2.1 % Normal 0.0-6.0 The [facility] Comment on above: Performed By: #### 3 0338 #### [facility] [address] [place] [address], [facility] Erythrocyte distribution width (RBC) [Ratio] 14.2 % Normal 11.5-15.0 The [facility] Comment on above: Performed By: #### 3 0338 #### [facility] [address] [place] [id number], [facility] Hematocrit (Bld) [Volume fraction] 33.2 % Low 39.0-50.0 The [facility] Comment on above: Performed By: #### 3 0338 #### [facility] [address] [place] [address], [facility] Hemoglobin (Bld) [Mass/Vol] 11.3 g/dL Low 13.0-17.0 The [facility] Comment on above: Performed By: #### 3 0338 #### [facility] [address] IMMATURE GRANS 0.4 % Normal 0.0-1.0 The [facility] Comment on above: Performed By: #### 3 0338 #### [facility] [address] [place] [address], [facility] Lymphocytes (Bld) [#/Vol] 1.0 10*3/uL Low 1.2-4.0 The [facility] Comment on above: Performed By: #### 3 0338 #### [facility] [address] [place] [address], [facility] Lymphocytes/100 WBC (Bld) 12.6 % Low 20.0-45.0 The [facility] Comment on above: Performed By: #### 3 0338 #### [facility] [address] MCH (RBC) [Entitic mass] 32.2 pg Normal 27.0-33.0 The [facility] Comment on above: Performed By: #### 3 0338 #### [facility] [address] [place] [address], [facility] MCHC (RBC) [Mass/Vol] 34.0 g/dL Normal 32.0-35.0 The [facility] Comment on above: Performed By: #### 3 0338 #### [facility] [address] [place] [address], [facility] MCV (RBC) [Entitic vol] 94.6 fL Normal 82.0-98.0 The [facility] Comment on above: Performed By: #### 3 0338 #### [facility] [address] [place] [address], [facility] Monocytes (Bld) [#/Vol] 0.7 10*3/uL Normal 0.1-1.0 The [facility] Comment on above: Performed By: #### 3 0338 #### [facility] [address] [place] [address], [facility] MONOS 9.2 % Normal 5.0-12.0 The [facility] Comment on above: Performed By: #### 3 0338 #### [facility] [address] [place] [address], [facility] Neutrophils/100 WBC (Bld) 75.2 % High 40.0-72.0 The [facility] Comment on above: Performed By: #### 3 0338 #### [facility] [address] [facility] [place] [address], [facility] Nucleated RBC/100 WBC (Bld) [Ratio] 0 % Normal 0-0 The [facility] Comment on above: Performed By: #### 3 0338 #### [facility] [address] [facility] [place] [address], [facility] PLAT CNT 190 10*3/uL Normal 150-400 [facility] Comment on above: Performed By: #### 3 0338 #### [facility] [address] [facility] [place] [address], [facility] RBC (Bld) [#/Vol] 3.51 10*6/uL Low 4.20-5.70 [facility] Comment on above: Performed By: #### 3 0338 #### [facility] [address] [facility] [address], [facility] WBC (Bld) [#/Vol] 7.75 10*3/uL Normal 4.00-10.60 [facility] Comment on above: Performed By: #### 3 0338 #### [facility] [address] [facility]. [address] COMP METABOLIC PANELon 02-03 Albumin [Mass/Vol] 3.7 g/dL Normal 3.5-5.7 [facility] Comment on above: Performed By: #### 3 0318 #### [facility] [address] [place] [address], [place] ALKALINE PHOSPH 89 IU/L Normal 34-104 [facility] Comment on above: Performed By: #### 3 0318 #### [facility] [address] [place] [address], [place] ALT [Catalytic activity/Vol] 10 U/L Normal 7-52 [facility] Comment on above: Performed By: #### 3 0318 #### [facility] [address] [place] [address], [place] AST [Catalytic activity/Vol] 16 U/L Normal 13-39 [facility] Comment on above: Performed By: #### 3 0318 #### [facility] [address] [place] [address], [place] Bilirubin [Mass/Vol] 0.6 mg/dL Normal 0.3-1.0 [facility] Comment on above: Performed By: #### 3 0318 #### [facility] [address] [place] [address], [place] Calcium [Mass/Vol] 8.6 mg/dL Normal 8.6-10.3 [facility] Comment on above: Performed By: #### 3 0318 #### [facility] [address] [place] [address], [place] Chloride [Moles/Vol] 103 mmol/L Normal 98-107 [facility] Comment on above: Performed By: #### 3 0318 #### [facility] [address] [place] [address], [place] CO2 [Moles/Vol] 27 mmol/L Normal 21-31 [facility] Comment on above: Performed By: #### 3 0318 #### [facility] [address] [place] [address], [place] Creatinine [Mass/Vol] 1.62 mg/dL High 0.70-1.30 [facility] Comment on above: Performed By: #### 3 0318 #### [facility] [address] [place] [address], [place] eGFR- 51 ml/min/1.73sq m Abnormal >60 [facility] Comment on above: Result Comment: Calc ulation may not be valid for patients over 70 years Performed By: #### 3 0318 #### [facility] [address] [place] [address], [place] eGFR- non- 42 ml/min/1.73sq m Abnormal >60 [facility] Comment on above: Result Comment: Calc ulation may not be valid for patients over 70 years Performed By: #### 3 0318 #### [facility] [address] [place] [address], [place] Glucose [Mass/Vol] 90 mg/dL Normal 70-100 [facility] Comment on above: Performed By: #### 3 0318 #### [facility] [address] [place] [address], [place] Potassium [Moles/Vol] 3.5 mmol/L Normal 3.5-5.1 [facility] Comment on above: Performed By: #### 3 0318 #### [facility] [address] [place] [address], [place] Protein [Mass/Vol] 6.6 g/dL Normal 6.0-8.3 [facility] Comment on above: Performed By: #### 3 0318 #### [facility] [address] [place] [address], [place] Sodium [Moles/Vol] 138 mmol/L Normal 136-145 [facility] Comment on above: Performed By: #### 3 0318 #### [facility] [address] [place] [address], [place] Urea nitrogen [Mass/Vol] 23 mg/dL Normal 7-25 [facility] Comment on above: Performed By: #### 3 0318 #### [address] POC SARS COV2 ANTIGEN NEGATI VEon 02-03-2022 POC SARS COV2 ANTIGEN NEG Negative Normal NEGATIVE [facility] Comment on above: Result Comment: Nega [...] antigen from SARS-CoV-2 in direct nasopharyngeal swab ([employer]) specimens from individuals who are suspected of [...] Accreditation. Performed By: #### 3 2044 #### [address] PORTABLE CHEST 1 VIEWon 01-25 PORTABLE CHEST 1 VIEW [facility] Department of Radiology [address] [place] [id number] Patient Name: NIELS MCCULLOUGH : 1945 Sex: M Age: Race: White Pt. Location: [facility] Patient Status: E Ordered Date: 02/03/2022 [...] failure. Electronically signed: Isidro Nieto. Transcribed by: [id number], User Resident: Electronically Signed by: ISIDRO NIETO @ 02/03/2022 08:48 AM Normal [facility] Comment on above: Order Comment: evalu ate for Aspiration PROTHROMBIN TIMEon 2 INR Coag (PPP) [Relative time] 3.58 {INR} High 0.91-1.16 [facility] Comment on above: Order Comment: No: D o not add to previous draw Result Comment: ACC P RECOMMENDED INR FOR WARFARIN THERAPY --------- [...] CHEST 1995;108:231S-246S. Performed By: #### 5 6101 ####[facility] PT Coag (PPP) [Time] 35.4 s High 12.3-14.8 [facility] Comment on above: Order Comment: No: D o not add to previous draw Result Comment: ALL RESULTS MUST BE INTERPRETED WITH RESPECT TO BLOOD DRAWING ARTIFACT OR DILUTION ERROR OF ANTICOAGULANT AT THE TIME OF SAMPLING. Performed By: #### 5 6101 ####[facility] INR Coag (PPP) [Relative time] 3.62 {INR} High 0.91-1.16 [facility] Comment on above: Result Comment: ACCC [...] 1995;108:231S-246S. Performed By: #### 3 0338 #### [facility] [address] [place] [address], [facility] PT Coag (PPP) [Time] 35.8 s High 12.3-14.8 [facility] Comment on above: Result Comment: ALL RESULTS MUST BE INTERPRETED WITH RESPECT TO BLOOD DRAWING ARTIFACT OR DILUTION ERROR OF ANTICOAGULANT AT THE TIME OF SAMPLING. Performed By: #### 3 0338 #### [facility] [address] [place] [address], [facility] RBC'S 2 UNITSon 02-03-2022 CROSSMATCH INTERP 1 COMP Normal [facility] Comment on above: Performed By: #### 8 6002 ####[facility] [facility] [address], [facility] CROSSMATCH INTERP 2 COMP Normal [facility] Comment on above: Performed By: #### 8 6002 ####[facility] [facility] [address], [facility] PRODUCT CODE 1 E0336 Normal [facility] Comment on above: Performed By: #### 8 6002 ####[facility] [facility] [place] [address], [facility] PRODUCT CODE 2 E0336 Normal [facility] Comment on above: Performed By: #### 8 6002 ####[facility] [facility] [address], [facility] PRODUCT STATUS 1 RE Normal [facility] Comment on above: Result Comment: Resu lt changed by IF on 02/04/2022 19:14. The previous value was XM. Result changed by IF on 02/04/2022 20:42. The previous value was IS. Result changed by IF on 02/08/2022 07:21. The previous value was XM. Performed By: #### 8 6002 ####[facility] [place] [address], [facility] PRODUCT STATUS 2 RE Normal [facility] Comment on above: Result Comment: Resu lt changed by IF on 02/04/2022 19:16. The previous value was XM. Performed By: #### 8 6002 ####[facility] [place] [address], [facility] UNIT ABO 1 O Normal [facility] Comment on above: Performed By: #### 8 6002 ####[facility] [place] [address], [facility] UNIT ABO 2 O Normal [facility] Comment on above: Performed By: #### 8 6002 ####[facility] [place] [address], [facility] UNIT ID 1 [id number] Normal [facility] Comment on above: Performed By: #### 8 6002 ####[facility] [place] [address], [facility] UNIT ID 2 [id number] Normal [facility] Comment on above: Performed By: #### 8 6002 ####[facility] [place] [address], [place] UNIT RH 1 Negative Normal [facility] Comment on above: Performed By: #### 8 6002 ####[facility] [place] [address], [place] UNIT RH 2 Negative Normal [facility] Comment on above: Performed By: #### 8 6002 ####[facility], [place] [address] UA w/Reflex Cultureon 2017 Acetoacetic Acid,Ur Negative Normal NEG [facility] Comment on above: Performed By: #### DICK BRADFORDO ####[facility] [place] [address] Bilirubin, SemiQt,Ur Negative Normal NEG [facility] Comment on above: Performed By: #### DICK BRADFORDO ####[facility] [place] [address] Color YELLOW Normal YEL [facility] Comment on above: Performed By: #### ALYSSIA BRADFORD ####[address] [address] Glucose,Semi-qnt,Ur Negative Normal NEG [facility] Comment on above: Performed By: #### ALYSSIA BRADFORD ####[address] [address] Hemoglobin, Ur Negative Normal NEG [facility] Comment on above: Performed By: #### ALYSSIA BRADFORD ####[address] [address] Leuckocyte Esterase Negative Normal NEG [facility] Comment on above: Performed By: #### ERIC BRADFORDICAO ####[address] [address] Nitrite,Ur Negative Normal NEG [facility] Comment on above: Performed By: #### U AXERICICAO ####[address] [address] PH,Ur 7.0 Normal 5.0-8.0 [facility] Comment on above: Performed By: #### U ERIC ALBRECHTICAO ####[address] [place] [address] Protein, Semi-qnt,Ur Negative Normal NEG [facility] Comment on above: Performed By: #### ALYSSIA BRADFORD ####[address] [address] Spec. [place],Ur 1.005 Normal 1.000-1.03 0 [facility] Comment on above: Performed By: #### ALYSSIA BRADFORD ####[address] [address] Turbidity CLOUDY Abnormal CLEAR [facility] Comment on above: Performed By: #### ALYSSIA BRADFORD ####[address] [address] Urobilinogen,Ur Normal Normal NORM [facility] Comment on above: Performed By: #### ALYSSIA BRADFORD ####[address] [address] Comment NOT REPORTED Normal [facility] Comment on above: Performed By: #### ALYSSIA BRADFORD ####[address] [address] Urinalysis,Microon 201 8 ----- Normal [facility] Comment on above: Performed By: #### ALYSSIA BRADFORD ####[address] [address] Bacteria FEW Abnormal NONE [facility] Comment on above: Performed By: #### ALYSSIA BRADFORD ####[address] [address] Epithelial cells 0 TO 2 Normal [facility] Comment on above: Performed By: #### ALYSSIA BRADFORD ####[place] [address] [place] [address] RBC Test strip #/vol (U) 0 TO 2 Normal [facility] Comment on above: Performed By: #### U AX, UMICAO ####[facility] [place] [address] Urine WBC's 0 TO 2 Normal [facility] Comment on above: Performed By: #### U AX UMICAO ####[facility] [place] [address] Amorphous Sediment NOT REPORTED Normal NONE [facility] Comment on above: Performed By: #### U AX UMICAO ####[address] [place] [address] Casts NOT REPORTED Normal [facility] Comment on above: Performed By: #### U AX UMICAO ####[address] [place] [address] Crystals NOT REPORTED Normal NONE [facility] Comment on above: Performed By: #### U AX UMICAO ####[address] [place] [address] Epithelial, Renal NOT REPORTED Normal 0 [facility] Comment on above: Performed By: #### U AX UMICAO ####[address] [place] [address] Mucus Strands NOT REPORTED Normal NONE [facility] Comment on above: Performed By: #### U AX, UMICAO ####[address] [place] [address] Other Observations NOT REPORTED Normal NREQ [facility] Comment on above: Performed By: #### U AX UMICAO ####[address] [place] [address] Trichomonas NOT REPORTED Normal NONE [facility] Comment on above: Performed By: #### U ALYSSIA ALBRECHT ####[facility] [facility] [place] [address] Yeast NOT REPORTED Normal NONE [facility] Comment on above: Performed By: #### U ALYSSIA ALBRECHT ####[facility] [facility] [place] [address] Acetaminophenon 08-16-2018 Acetaminophen mass conc <5 Low 10-30 [facility] Comment on above: Performed By: #### T ABA HERNADEZ, BMP ####[address] [place] [id number] CBC with Diffon 08-16-2018 Abs. Basophil 0.03 k/uL Normal 0.00-0.20 [facility] Comment on above: Performed By: #### T ABA HERNADEZ, BMP ####[address] [place] [address] Abs.Imm.Granulocyte <0.03 Normal 0.00-0.30 [facility] Comment on above: Performed By: #### T ABA HERNADEZ, BMP ####[address] [place] [address] Abs.Neutrophil (Seg) 3.19 k/uL Normal 1.50-8.10 [facility] Comment on above: Performed By: #### T ABA HERNADEZ, BMP ####[address] [place] [address] Basophils/100 WBC Auto (Bld) 1 % Normal 0-2 [facility] Comment on above: Performed By: #### T ABA HERNADEZ, BMP ####[address] [place] [address] Eosinophils Auto #/vol (Bld) 0.17 10*3/uL Normal 0.00-0.44 [facility] Comment on above: Performed By: #### T ABA HERNADEZ, BMP ####[address] , [place] [address] Eosinophils/100 WBC Auto (Bld) 3 % Normal 1-4 [facility] Comment on above: Performed By: #### T ABA HERNADEZ, BMP ####[address] , [place] [address] Erythrocyte distribution width Auto Ratio (RBC) 12.6 % Normal 11.8-14.4 [facility] Comment on above: Performed By: #### T ABA HERNADEZ, BMP ####[address] , [place] [address] Hematocrit Auto Volume Fraction (Bld) 39.4 % Low 40.7-50.3 [facility] Comment on above: Performed By: #### T ABA HERNADEZ, BMP ####[address] , [place] [address] Hemoglobin mass conc (Bld) 13.5 g/dL Normal 13.0-17.0 [facility] Comment on above: Performed By: #### T ABA HERNADEZ, BMP ####[address] , [place] [address] Immature granulocytes #/vol (Bld) 0 % Normal 0 [facility] Comment on above: Performed By: #### T ABA HERNADEZ, BMP ####[address] , [place] [address] Lymphocytes Auto #/vol (Bld) 1.54 10*3/uL Normal 1.10-3.70 [facility] Comment on above: Performed By: #### T ABA HERNADEZ, BMP ####[address] , [facility] Lymphocytes/100 WBC Auto (Bld) 28 % Normal 24-43 [facility] Comment on above: Performed By: #### T ABA HERNADEZ, BMP ####[address] [place] [address] MCH Auto Entitic mass (RBC) 33.4 pg Normal 25.2-33.5 [facility] Comment on above: Performed By: #### T ABA HERNADEZ, BMP ####[address] [place] [address] MCHC Auto mass conc (RBC) 34.3 g/dL Normal 28.4-34.8 [facility] Comment on above: Performed By: #### T ABA HERNADEZ, BMP ####[address] [place] [address] MCV Auto Entitic volume (RBC) 97.5 fL Normal 82.6-102.9 [facility] Comment on above: Performed By: #### T ABA HERNADEZ, BMP ####[address] [place] [address] Monocytes Auto #/vol (Bld) 0.66 10*3/uL Normal 0.10-1.20 [facility] Comment on above: Performed By: #### T ABA HERNADEZ, BMP ####[address] [place] [address] Monocytes/100 WBC Auto (Bld) 12 % Normal 3-12 [facility] Comment on above: Performed By: #### T ABA HERNADEZ, BMP ####[address] [place] [address] Neutrophil (Seg) 56 % Normal 36-65 [facility] Comment on above: Performed By: #### T ABA HERNADEZ, BMP ####[address] [place] [address] NRBC Automated 0.0 per 100 WBC Normal 0.0 [facility] Comment on above: Performed By: #### T ABA HERNADEZ, BMP ####[address] [place] [address] Platelet mean volume Auto Entitic volume (Bld) 8.7 fL Normal 8.1-13.5 [facility] Comment on above: Performed By: #### T MARICARMEN CDP, BMP ####[address] [place] [address] Platelets Auto #/vol (Bld) 163 10*3/uL Normal 138-453 [facility] Comment on above: Performed By: #### T MARICARMEN, CDP, BMP ####[address] [place] [address] RBC Auto #/vol (Bld) 4.04 10*6/uL Low 4.21-5.77 [facility] Comment on above: Performed By: #### T ABA HERNADEZ, BMP ####[address] [place] [address] WBC Auto #/vol (Bld) 5.6 10*3/uL Normal 3.5-11.3 [facility] Comment on above: Performed By: #### T ABA HERNADEZ, BMP ####[address] [place] [address] Auto Diff Performed NOT REPORTED Normal [facility] Comment on above: Performed By: #### T ABA HERNADEZ, BMP ####[address] [place] [address] Platelets Auto #/vol (Bld) NOT REPORTED Normal [facility] Comment on above: Performed By: #### T MARICARMEN, CDP, BMP ####[address] [place] [address] RBC morphology finding Nom (Bld) NOT REPORTED Normal [facility] Comment on above: Performed By: #### T MARICARMEN, CDP, BMP ####[address] [place] [address] WBC Morphology NOT REPORTED Normal [facility] Comment on above: Performed By: #### T SH, CDP, BMP ####[address] [place] [address] Comp Metabolic Profon 2017 (cont.) Normal [facility] Comment on above: Result Comment: Aver age GFR for 70 or more years old: 75 mL/min/1.73sq mChronic Kidney Disease: <60 mL/min/1.73sq mKidney failure: <15 mL/min/1.73sq meGFR calculated using average adult body mass. Additional eGFR calculator available at:http://www.InnoCentive/multiple_crcl_2011.htm Performed By: #### T ABA HERNADEZ, BMP ####[address] [place] [address] Albumin mass conc 4.0 g/dL Normal 3.5-5.2 [facility] Comment on above: Performed By: #### ABA OLSON BMP ####[address] [place] [address] Albumin/Globulin mass ratio 1.7 {ratio} Normal 1.0-2.5 [facility] Comment on above: Performed By: #### ABA OLSON, BMP ####[address] [place] [address] Alkaline Phos 71 U/L Normal 40-129 [facility] Comment on above: Performed By: #### ABA OLSON, BMP ####[address] [place] [address] ALT enzyme act/vol 10 U/L Normal 5-41 [facility] Comment on above: Performed By: #### ABA OLSON, BMP ####[address] [place] [address] Anion gap 3 molar conc 10 mmol/L Normal 9-17 [facility] Comment on above: Performed By: #### ABA OLSON, BMP ####[address] [place] [address] AST enzyme act/vol 14 U/L Normal <40 [facility] Comment on above: Performed By: #### T ABA HERNADEZ, BMP ####[address] [place] [address] Bilirubin Ql (U) 0.57 mg/dL Normal 0.3-1.2 [facility] Comment on above: Performed By: #### T ABA HERNADEZ, BMP ####[address] [place] [address] BUN/CRE Ratio 9 Normal 9-20 [facility] Comment on above: Performed By: #### T ABA HERNADEZ, BMP ####[address] [place] [address] Calcium mass conc 8.9 mg/dL Normal 8.6-10.4 [facility] Comment on above: Performed By: #### T ABA HERNADEZ, BMP ####[address] [place] [address] Chloride molar conc 95 mmol/L Low 98-107 [facility] Comment on above: Performed By: #### T ABA HERNADEZ, BMP ####[address] [place] [address] CO2 molar conc 29 mmol/L Normal 20-31 [facility] Comment on above: Performed By: #### T ABA HERNADEZ, BMP ####[address] [place] [address] Creatinine mass conc 1.42 mg/dL High 0.70-1.20 [facility] Comment on above: Performed By: #### T ABA HERNADEZ, BMP ####[address] [place] [address] GFR, Amer 60 mL/min Low >60 [facility] Comment on above: Performed By: #### T ABA HERNADEZ, BMP ####[address] [place] [address] GFR,non Amer 49 mL/min Low >60 [facility] Comment on above: Performed By: #### T ABA HERNADEZ, BMP ####[address] [place] [address] Glucose mass conc 111 mg/dL High 70-99 [facility] Comment on above: Performed By: #### T ABA HERNADEZ, BMP ####[address] [place] [address] Potassium molar conc 4.0 mmol/L Normal 3.7-5.3 [facility] Comment on above: Performed By: #### T ABA HERNADEZ, BMP ####[address] [place] [address] Protein mass conc 6.4 g/dL Normal 6.4-8.3 [facility] Comment on above: Performed By: #### T ABA HERNADEZ, BMP ####[address] [place] [address] Sodium molar conc 134 mmol/L Low 135-144 [facility] Comment on above: Performed By: #### T ABA HERNADEZ, BMP ####[address] [place] [address] Staging: Normal [facility] Comment on above: Result Comment: Stag e 1: Some kidney damage normal GFRStage 2: Mild kidney damage GFR 60-89Stage 3: Moderate kidney damage GFR 30-59Stage 4: Severe kidney damage GFR 15-29Stage 5: Severe kidney damage GFR <15ESRD - chronic treatment by dialysis or transplant Performed By: #### T MARICARMEN CDP, BMP ####[address] [place] [address] Urea nitrogen mass conc 13 mg/dL Normal 8-23 [facility] Comment on above: Performed By: #### T ABA HERNADEZ, BMP ####[address] [place] [address] Drug Scr, Abuse, Uron 2017 Amphetamine(s),Ur Negative Normal NEG [facility] Comment on above: Performed By: #### T SH, CDP, BMP ####[address] [place] [address] Barbiturate(s),Ur Negative Normal NEG [facility] Comment on above: Performed By: #### T SH, CDP, BMP ####[address] [place] [address] Base excess Calculated molar conc (Bld) Negative Normal [facility] Comment on above: Performed By: #### T SH, CDP, BMP ####[address] [place] [address] Benzodiazepine(s) Positive Abnormal NEG [facility] Comment on above: Performed By: #### T SH, CDP, BMP ####[facility] [address] [place] [address] Buprenorphrine, Ur Negative Normal [facility] Comment on above: Performed By: #### T SH, CDP, BMP ####[address] [place] [address] Cannabinoid(s),Ur Negative Normal [facility] Comment on above: Performed By: #### T SH, CDP, BMP ####[facility] [address] [place] [address] Methadone Ql (U) Negative Normal [facility] Comment on above: Performed By: #### T SH, CDP, BMP ####[facility] [address] [place] [address] Methamphetamine, Ur Negative Normal [facility] Comment on above: Performed By: #### T SH, CDP, BMP ####[address] [place] [address] Opiate(s), Ur Negative Normal NEG [facility] Comment on above: Performed By: #### T ABA HERNADEZ, BMP ####[address] [place] [address] Oxycodone, Urine Negative Normal NEG [facility] Comment on above: Performed By: #### T ABA HERNADEZ, BMP ####[address] [place] [address] Phencyclidine, Ur Negative Normal NEG [facility] Comment on above: Performed By: #### T ABA HERNADEZ, BMP ####[address] [place] [address] Propoxyphene,Urine Negative Normal NEG [facility] Comment on above: Performed By: #### T ABA HERNADEZ, BMP ####[address] [place] [address] Tricyclic antidepressants Screen Ql (U) Negative Normal NEG [facility] Comment on above: Result Comment: Drug screen results are to be used for medical purposes only. All positive results are unconfirmed. Testing for employment or legal uses should be sent to a reference laboratory for confirmation. Performed By: #### T ABA HERNADEZ, BMP ####[address] [place] [address] Interpretive Info NOT REPORTED Normal [facility] Comment on above: Performed By: #### T ABA HERNADEZ, BMP ####[address] [place] [address] MDMA, Urine NOT REPORTED Normal NEG [facility] Comment on above: Performed By: #### T ABA HERNADEZ, BMP ####[address] [place], [place] [address] ED Noteon 08-16-2018 HIM IP Note OR Blind Lacer Normal [facility] HIM IP Note OR [place] Normal [facility] HIM IP Note OR [place] Normal [facility] HIM IP Note OR [place] Normal [facility] HIM IP Note OR [place] Normal [facility] HIM IP Note OR [place] Normal [facility] HIM IP Note OR [place] Normal [facility] HIM IP Note OR [place] Normal [facility] HIM IP Note OR [place] Normal [facility] HIM IP Note OR [place] Normal [facility] HIM IP Note OR [place] Normal [facility] HIM IP Note OR [place] Normal [facility] HIM IP Note OR [place] Normal [facility] HIM IP Note OR [place] Normal [facility] HIM IP Note OR [place] Normal [facility] HIM IP Note OR [place] Normal [facility] HIM IP Note OR [place] Normal [facility] HIM IP Note OR [place] Normal [facility] HIM IP Note OR [place] Normal [facility] ED Provider Noteon 8 HIM IP Note OR [place] Normal [facility] Ethanol Alcoholon 08-16-2018 Ethanol mass conc mg/dL Normal <10 [facility] Comment on above: Performed By: #### T ABA HERNADEZ, BMP ####[address] , [place] [address] Ethanol percent <0.010 Normal [facility] Comment on above: Performed By: #### T ABA HERNADEZ BMP ####[address] , [facility]83 Salicylateon 08-16-2018 Salicylate <1 Low 3-10 [facility] Comment on above: Performed By: #### T ABA HERNADEZ BMP ####[address] [place] [address] Thyroid Stim. Horm.on 2017 Thyrotropin Qn 0.80 m[IU]/L Normal 0.30-5.00 [facility] Comment on above: Performed By: #### T ABA HERNADEZ, BMP ####[address] [place] [id number] Thyroxine, Freeon 08-16-2018 Thyroxine, Free 1.43 ng/dL Normal 0.93-1.70 [facility] Comment on above: Performed By: #### T SH, CDP, BMP ####[address] [place] [address] Urinalysis w/ Microon 2017 ----- Normal [facility] Comment on above: Performed By: #### T MARICARMEN, CDP, BMP ####[address] [place] [address] Acetaminophen mass conc Negative Normal NEG [facility] Comment on above: Performed By: #### T MARICARMEN, CDP, BMP ####[address] [place] [address] Bacteria TRACE Abnormal NONE [facility] Comment on above: Performed By: #### T MARICARMEN CDP, BMP ####[address] [place] [address] Bilirubin, SemiQt,Ur Negative Normal NEG [facility] Comment on above: Performed By: #### T MARICARMEN CDP, BMP ####[address] [place] [address] Color YELLOW Normal YEL [facility] Comment on above: Performed By: #### T MARICARMEN CDP, BMP ####[address] [place] [address] Epithelial cells 0 TO 2 Normal 0-5 [facility] Comment on above: Performed By: #### T MARICARMEN CDP, BMP ####[address] [place] [address] Glucose,Semi-qnt,Ur Negative Normal NEG [facility] Comment on above: Performed By: #### T MARICARMEN CDP, BMP ####[address] [place] [address] Hemoglobin, Ur Negative Normal NEG [facility] Comment on above: Performed By: #### T MARICARMEN, CDP, BMP ####[address] [place] [address] Leuckocyte Esterase Negative Normal NEG [facility] Comment on above: Performed By: #### T SH, CDP, BMP ####[address] [place] [address] Nitrite,Ur Negative Normal NEG [facility] Comment on above: Performed By: #### T SH, CDP, BMP ####[address] [place] [address] PH,Ur 7.0 Normal 5.0-9.0 [facility] Comment on above: Performed By: #### T SH, CDP, BMP ####[address] [place] [address] Protein mass conc Negative Normal NEG [facility] Comment on above: Performed By: #### T SH, CDP, BMP ####[address] [place] [address] RBC Test strip #/vol (U) 0 TO 2 Normal 0-2 [facility] Comment on above: Performed By: #### T SH, CDP, BMP ####[address] [place] [address] Spec. [place],Ur <1.005 Low 1.010-1.02 0 [facility] Comment on above: Performed By: #### T SH, CDP, BMP ####[address] [place] [address] Turbidity CLEAR Normal CLEAR [facility] Comment on above: Performed By: #### T SH, CDP, BMP ####[address] [place] [address] Urine WBC's 0 TO 2 Normal 0-5 [facility] Comment on above: Performed By: #### T SH, CDP, BMP ####[address] [place] [address] Urobilinogen,Ur Normal Normal NORM [facility] Comment on above: Performed By: #### T SH, CDP, BMP ####[address] [place] [address] Amorphous Sediment NOT REPORTED Normal NONE [facility] Comment on above: Performed By: #### T SH, CDP, BMP ####[address] [place] [address] Casts NOT REPORTED Normal [facility] Comment on above: Performed By: #### T SH, CDP, BMP ####[address] [place] [address] Comment NOT REPORTED Normal [facility] Comment on above: Performed By: #### T SH, CDP, BMP ####[address] [place] [address] Crystals NOT REPORTED Normal NONE [facility] Comment on above: Performed By: #### T MARICARMEN CDP, BMP ####[address] [place] [address] Epithelial, Renal NOT REPORTED Normal 0 [facility] Comment on above: Performed By: #### T MARICARMEN CDP, BMP ####[address] [place] [address] Mucus Strands NOT REPORTED Normal NONE [facility] Comment on above: Performed By: #### T MARICARMEN CDP, BMP ####[address] [place] [address] Other Observations NOT REPORTED Normal NREQ [facility] Comment on above: Performed By: #### T SH, CDP, BMP ####[address] [place] [address] Trichomonas NOT REPORTED Normal NONE [facility] Comment on above: Performed By: #### T SH, CDP, BMP ####[address] [place] [address] Yeast NOT REPORTED Normal NONE [facility] Comment on above: Performed By: #### T ABA HERNADEZ, BMP ####[address] , [place] [address] APTTon 08-06-2018 aPTT Coag time (Bld) 28.4 s Normal 23.2-34.4 [facility] Comment on above: Performed By: #### T ABA HERNADEZ, BMP ####[address] , [place] [address] CBC with Diffon 08-06-2018 Abs. Basophil 0.03 k/uL Normal 0.00-0.20 [facility] Comment on above: Performed By: #### T ABA HERNADEZ, BMP ####[address] , [place] [address] Abs.Imm.Granulocyte <0.03 Normal 0.00-0.30 [facility] Comment on above: Performed By: #### ABA OLSON, BMP ####[address] , [place] [address] Abs.Neutrophil (Seg) 4.25 k/uL Normal 1.50-8.10 [facility] Comment on above: Performed By: #### T ABA HERNADEZ, BMP ####[address] , [facility] Basophils/100 WBC Auto (Bld) 1 % Normal 0-2 [facility] Comment on above: Performed By: #### T ABA HERNADEZ, BMP ####[address] , [place] [address] Eosinophils Auto #/vol (Bld) 0.20 10*3/uL Normal 0.00-0.44 [facility] Comment on above: Performed By: #### T ABA HERNADEZ, BMP ####[address] , [place] [address] Eosinophils/100 WBC Auto (Bld) 3 % Normal 1-4 [facility] Comment on above: Performed By: #### T ABA HERNADEZ, BMP ####[address] , [place] [address] Erythrocyte distribution width Auto Ratio (RBC) 12.2 % Normal 11.8-14.4 [facility] Comment on above: Performed By: #### T ABA HERNADEZ, BMP ####[address] , [place] [address] Hematocrit Auto Volume Fraction (Bld) 39.4 % Low 40.7-50.3 [facility] Comment on above: Performed By: #### T ABA HERNADEZ, BMP ####[address] [place] [address] Hemoglobin mass conc (Bld) 13.7 g/dL Normal 13.0-17.0 [facility] Comment on above: Performed By: #### T ABA HERNADEZ, BMP ####[address] , [place] [address] Immature granulocytes #/vol (Bld) 0 % Normal 0 [facility] Comment on above: Performed By: #### T ABA HERNADEZ, BMP ####[address] , [place] [address] Lymphocytes Auto #/vol (Bld) 1.12 10*3/uL Normal 1.10-3.70 [facility] Comment on above: Performed By: #### T ABA HERNADEZ, BMP ####[address] [place] [address] Lymphocytes/100 WBC Auto (Bld) 18 % Low 24-43 [facility] Comment on above: Performed By: #### T ABA HERNADEZ, BMP ####[address] [place] [address] MCH Auto Entitic mass (RBC) 33.6 pg High 25.2-33.5 [facility] Comment on above: Performed By: #### T ABA HERNADEZ, BMP ####[address] [place] [address] MCHC Auto mass conc (RBC) 34.8 g/dL Normal 28.4-34.8 [facility] Comment on above: Performed By: #### T SH CDP, BMP ####[address] [place] [id number] MCV Auto Entitic volume (RBC) 96.6 fL Normal 82.6-102.9 [facility] Comment on above: Performed By: #### T MARICARMEN, CDP, BMP ####[address] [place] [address] Monocytes Auto #/vol (Bld) 0.61 10*3/uL Normal 0.10-1.20 [facility] Comment on above: Performed By: #### T ABA HERNADEZ, BMP ####[address] , [facility]83 Monocytes/100 WBC Auto (Bld) 10 % Normal 3-12 [facility] Comment on above: Performed By: #### T ABA HERNADEZ, BMP ####[address] [place] [id number] Neutrophil (Seg) 68 % High 36-65 [facility] Comment on above: Performed By: #### T MARICARMEN CDP, BMP ####[address] [place] [address] NRBC Automated 0.0 per 100 WBC Normal 0.0 [facility] Comment on above: Performed By: #### T MARICARMEN, CDP, BMP ####[address] [place] [address] Platelet mean volume Auto Entitic volume (Bld) 8.7 fL Normal 8.1-13.5 [facility] Comment on above: Performed By: #### T MARICARMEN, CDP, BMP ####[address] [place] [id number] Platelets Auto #/vol (Bld) 192 10*3/uL Normal 138-453 [facility] Comment on above: Performed By: #### T ABA HERNADEZ, BMP ####[address] [place] [address] RBC Auto #/vol (Bld) 4.08 10*6/uL Low 4.21-5.77 [facility] Comment on above: Performed By: #### T ABA HERNADEZ, BMP ####[address] [place] [address] WBC Auto #/vol (Bld) 6.2 10*3/uL Normal 3.5-11.3 [facility] Comment on above: Performed By: #### T ABA HERNADEZ, BMP ####[address] [place] [address] Auto Diff Performed NOT REPORTED Normal [facility] Comment on above: Performed By: #### T ABA HERNADEZ, BMP ####[address] [place] [address] Platelets Auto #/vol (Bld) NOT REPORTED Normal [facility] Comment on above: Performed By: #### T ABA HERNADEZ, BMP ####[address] [place] [address] RBC morphology finding Nom (Bld) NOT REPORTED Normal [facility] Comment on above: Performed By: #### T ABA HERNADEZ, BMP ####[address] [place] [address] WBC Morphology NOT REPORTED Normal [facility] Comment on above: Performed By: #### T ABA HERNADEZ, BMP ####[address] [place] [address] CT ABDOMEN PELVIS WO CONTRAS Ton 08-06-2018 [...] by:FARRAH Arredondoigned by:Ketan Hartley MD08/06/18inal result Normal [facility] CT HEAD WO CONTRASTon 2017 CT [...] by:FARRAH Robbinsigned by:Ayanna Abrams MD08/06/18inal result Normal [facility] Comp Metabolic Profon 2017 (cont.) Normal [facility] Comment on above: Result Comment: Aver age GFR for 70 or more years old: 75 mL/min/1.73sq mChronic Kidney Disease: <60 mL/min/1.73sq mKidney failure: <15 mL/min/1.73sq meGFR calculated using average adult body mass. Additional eGFR calculator available at:http://www.[employer].Pixelated/multiple_crcl_2012.htm Performed By: #### T ABA HERNADEZ, BMP ####[address] [place] [address] Albumin mass conc 4.0 g/dL Normal 3.5-5.2 [facility] Comment on above: Performed By: #### T ABA HERNADEZ, BMP ####[address] [place] [address] Albumin/Globulin mass ratio 1.4 {ratio} Normal 1.0-2.5 [facility] Comment on above: Performed By: #### T ABA HERNADEZ, BMP ####[address] [place] [address] Alkaline Phos 79 U/L Normal 40-129 [facility] Comment on above: Performed By: #### T SH, CDP, BMP ####[address] [place] [address] ALT enzyme act/vol 11 U/L Normal 5-41 [facility] Comment on above: Performed By: #### T SH, CDP, BMP ####[address] [place] [address] Anion gap 3 molar conc 12 mmol/L Normal 9-17 [facility] Comment on above: Performed By: #### T MARICARMEN, CDP, BMP ####[address] [place] [address] AST enzyme act/vol 15 U/L Normal <40 [facility] Comment on above: Performed By: #### T MARICARMEN, CDP, BMP ####[address] [place] [address] Bilirubin Ql (U) 0.41 mg/dL Normal 0.3-1.2 [facility] Comment on above: Performed By: #### T MARICARMEN CDP, BMP ####[address] [place] [address] BUN/CRE Ratio 8 Low 9-20 [facility] Comment on above: Performed By: #### T MARICARMEN, CDP, BMP ####[address] [place] [address] Calcium mass conc 9.1 mg/dL Normal 8.6-10.4 [facility] Comment on above: Performed By: #### T MARICARMEN, CDP, BMP ####[address] [place] [address] Chloride molar conc 96 mmol/L Low 98-107 [facility] Comment on above: Performed By: #### T MARICARMEN, CDP, BMP ####[address] [place] [address] CO2 molar conc 25 mmol/L Normal 20-31 [facility] Comment on above: Performed By: #### T MARICARMEN, CDP, BMP ####[address] [place] [address] Creatinine mass conc 1.45 mg/dL High 0.70-1.20 [facility] Comment on above: Performed By: #### T SH, CDP, BMP ####[address] [place] [address] GFR, Amer 58 mL/min Low >60 [facility] Comment on above: Performed By: #### T SH, CDP, BMP ####[address] [place] [address] GFR,non Amer 48 mL/min Low >60 [facility] Comment on above: Performed By: #### T SH, CDP, BMP ####[address] [place] [address] Glucose mass conc 100 mg/dL High 70-99 [facility] Comment on above: Performed By: #### T SH, CDP, BMP ####[address] [place] [address] Potassium molar conc 3.7 mmol/L Normal 3.7-5.3 [facility] Comment on above: Performed By: #### T SH, CDP, BMP ####[address] [place] [address] Protein mass conc 6.8 g/dL Normal 6.4-8.3 [facility] Comment on above: Performed By: #### T SH, CDP, BMP ####[address] [place] [address] Sodium molar conc 133 mmol/L Low 135-144 [facility] Comment on above: Performed By: #### T SH, CDP, BMP ####[address] [place] [address] Staging: Normal [facility] Comment on above: Result Comment: Stag e 1: Some kidney damage normal GFRStage 2: Mild kidney damage GFR 60-89Stage 3: Moderate kidney damage GFR 30-59Stage 4: Severe kidney damage GFR 15-29Stage 5: Severe kidney damage GFR <15ESRD - chronic treatment by dialysis or transplant Performed By: #### T ABA HERNADEZ BMP ####[address] [place], [place] [address] Urea nitrogen mass conc 11 mg/dL Normal 8-23 [facility] Comment on above: Performed By: #### T ABA HERNADEZ BMP ####[address] [place] [address] ED Provider Noteon 8 HIM IP Note OR Blind Lacer Normal [facility] Lactic Acidon 08-06-2018 Lactate molar conc 0.8 mmol/L Normal 0.5-2.2 [facility] Comment on above: Performed By: #### ABA OLSON BMP ####[address] [place] [address] Lactic Acid,Whole Bl NOT REPORTED Normal 0.7-2.1 [facility] Comment on above: Performed By: #### ABA OLSON BMP ####[address] [place], [place] [phone] PTon 08-06-2018 INR Coag RelTime (PPP) 1.0 {INR} Normal 0.9-1.2 [facility] Comment on above: Performed By: #### ABA OLSON BMP ####[address] [place], [place] [id number] Prothrombin time (PT) Coag time (PPP) 10.6 s Normal 9.7-12.2 [facility] Comment on above: Performed By: #### ABA OLSON, BMP ####[address] [place] [address] Thyroid Stim. Horm.on 2017 Thyrotropin Qn 0.37 m[IU]/L Normal 0.30-5.00 [facility] Comment on above: Performed By: #### T SH, CDP, BMP ####[address] [place] [address] Urinalysis, Routineon 2017 Acetaminophen mass conc Negative Normal NEG [facility] Comment on above: Performed By: #### T SH, CDP, BMP ####[address] [place] [address] Bilirubin, SemiQt,Ur Negative Normal NEG [facility] Comment on above: Performed By: #### T SH, CDP, BMP ####[address] [place] [address] Color YELLOW Normal YEL [facility] Comment on above: Performed By: #### T SH, CDP, BMP ####[address] [place] [address] Glucose,Semi-qnt,Ur Negative Normal [facility] Comment on above: Performed By: #### T SH, CDP, BMP ####[address] [place] [address] Hemoglobin, Ur TRACE Abnormal NEG [facility] Comment on above: Performed By: #### T SH, CDP, BMP ####[address] [place] [address] Leuckocyte Esterase Negative Normal NEG [facility] Comment on above: Performed By: #### T SH, CDP, BMP ####[address] [place] [address] Nitrite,Ur Negative Normal [facility] Comment on above: Performed By: #### T SH, CDP, BMP ####[address] [place] [address] PH,Ur 7.0 Normal 5.0-9.0 [facility] Comment on above: Performed By: #### T SH, CDP, BMP ####[address] [place] [address] Protein mass conc Negative Normal NEG [facility] Comment on above: Performed By: #### T ABA HERNADEZ, BMP ####[address] [place] [address] Spec. [place],Ur <1.005 Low 1.010-1.02 0 [facility] Comment on above: Performed By: #### T ABA HERNADEZ, BMP ####[address] [place] [address] Turbidity CLEAR Normal CLEAR [facility] Comment on above: Performed By: #### T ABA HERNADEZ, BMP ####[address] [place] [address] Urobilinogen,Ur Normal Normal NORM [facility] Comment on above: Performed By: #### T ABA HERNADEZ, BMP ####[address] [place] [address] Comment NOT REPORTED Normal [facility] Comment on above: Performed By: #### T ABA HERNADEZ, BMP ####[address] [place] [address] Urinalysis,Microon 8 ----- Normal [facility] Comment on above: Performed By: #### T ABA HERNADEZ, BMP ####[address] [place] [address] Epithelial cells 0 TO 2 Normal 0-5 [facility] Comment on above: Performed By: #### T ABA HERNADEZ, BMP ####[address] [place] [address] RBC Test strip #/vol (U) 0 TO 2 Normal 0-2 [facility] Comment on above: Performed By: #### T ABA HERNADEZ, BMP ####[address] [place] [address] Urine WBC's 0 TO 2 Normal 0-5 [facility] Comment on above: Performed By: #### T SH CDP, BMP ####[address] [place] [address] Amorphous Sediment NOT REPORTED Normal NONE [facility] Comment on above: Performed By: #### T SH, CDP, BMP ####[address] [place] [address] Bacteria NOT REPORTED Normal NONE [facility] Comment on above: Performed By: #### T MARICARMEN CDP, BMP ####[address] [place] [address] Casts NOT REPORTED Normal [facility] Comment on above: Performed By: #### T MARICARMEN CDP, BMP ####[address] [place] [address] Crystals NOT REPORTED Normal NONE [facility] Comment on above: Performed By: #### T SH CDP, BMP ####[address] [place] [address] Epithelial, Renal NOT REPORTED Normal 0 [facility] Comment on above: Performed By: #### T SH CDP, BMP ####[address] [place] [address] Mucus Strands NOT REPORTED Normal NONE [facility] Comment on above: Performed By: #### T SH, CDP, BMP ####[address] [place] [address] Other Observations NOT REPORTED Normal NREQ [facility] Comment on above: Performed By: #### T SH, CDP, BMP ####[address] [place] [address] Trichomonas NOT REPORTED Normal NONE [facility] Comment on above: Performed By: #### T SH, CDP, BMP ####[address] [place] [address] Yeast NOT REPORTED Normal NONE [facility] Comment on above: Performed By: #### T ABA HERNADEZ, BMP ####[address] [place] [address] UA w/Reflex Cultureon 2017 Acetoacetic Acid,Ur Negative Normal NEG [facility] Comment on above: Performed By: #### T ABA HERNADEZ, BMP ####[address] [place] [address] Bilirubin, SemiQt,Ur Negative Normal NEG [facility] Comment on above: Performed By: #### T ABA HERNADEZ, BMP ####[address] [place] [address] Color YELLOW Normal YEL [facility] Comment on above: Performed By: #### T ABA HERNADEZ, BMP ####[address] [place] [address] Glucose,Semi-qnt,Ur Negative Normal [facility] Comment on above: Performed By: #### T ABA HERNADEZ, BMP ####[address] [place] [address] Hemoglobin, Ur Negative Normal NEG [facility] Comment on above: Performed By: #### T ABA HERNADEZ, BMP ####[address] [place] [address] Leuckocyte Esterase Negative Normal NEG [facility] Comment on above: Performed By: #### T ABA HERNADEZ, BMP ####[address] [place] [address] Nitrite,Ur Negative Normal [facility] Comment on above: Performed By: #### T ABA HERNADEZ, BMP ####[address] [place] [address] PH,Ur 7.0 Normal 5.0-9.0 [facility] Comment on above: Performed By: #### T SH, CDP, BMP ####[address] [place] [address] Protein, Semi-qnt,Ur Negative Normal NEG [facility] Comment on above: Performed By: #### T SH, CDP, BMP ####[address] [place] [address] Spec. [place],Ur <1.005 Low 1.010-1.02 0 [facility] Comment on above: Performed By: #### T MARICARMEN, CDP, BMP ####[address] [place] [address] Turbidity CLEAR Normal CLEAR [facility] Comment on above: Performed By: #### T MARICARMEN, CDP, BMP ####[address] , [facility] Urobilinogen,Ur Normal Normal NORM [facility] Comment on above: Performed By: #### T SH, CDP, BMP ####[address] [place] [address] Comment NOT REPORTED Normal [facility] Comment on above: Performed By: #### T SH, CDP, BMP ####[address] [place] [address] Urinalysis,Microon 8 ----- Normal [facility] Comment on above: Performed By: #### T SH, CDP, BMP ####[address] [place] [address] Epithelial cells 0 TO 2 Normal 0-5 [facility] Comment on above: Performed By: #### T SH, CDP, BMP ####[address] [place] [address] RBC Test strip #/vol (U) 0 TO 2 Normal 0-2 [facility] Comment on above: Performed By: #### T SH CDP, BMP ####[address] [place] [address] Urine WBC's 0 TO 2 Normal 0-5 [facility] Comment on above: Performed By: #### T SH, CDP, BMP ####[address] [place] [address] Amorphous Sediment NOT REPORTED Normal NONE [facility] Comment on above: Performed By: #### T MARICARMEN, CDP, BMP ####[address] [place] [address] Bacteria NOT REPORTED Normal NONE [facility] Comment on above: Performed By: #### T MARICARMEN, CDP, BMP ####[address] [place] [address] Casts NOT REPORTED Normal [facility] Comment on above: Performed By: #### T MARICARMEN CDP, BMP ####[address] [place] [address] Crystals NOT REPORTED Normal NONE [facility] Comment on above: Performed By: #### T MARICARMEN CDP, BMP ####[address] [place] [address] Epithelial, Renal NOT REPORTED Normal 0 [facility] Comment on above: Performed By: #### T MARICARMEN, CDP, BMP ####[address] [place] [address] Mucus Strands NOT REPORTED Normal [facility] Comment on above: Performed By: #### T MARICARMEN CDP, BMP ####[address] [place] [address] Other Observations NOT REPORTED Normal NREQ [facility] Comment on above: Performed By: #### T MARICARMEN, CDP, BMP ####[address] [place] [address] Trichomonas NOT REPORTED Normal NONE [facility] Comment on above: Performed By: #### T ABA HERNADEZ, BMP ####[address] [place] [address] Yeast NOT REPORTED Normal NONE [facility] Comment on above: Performed By: #### T ABA HERNADEZ, BMP ####[address] [place] [address] CBC with Diffon 06-15-2018 Abs. Basophil <0.03 Normal 0.00-0.20 [facility] Comment on above: Performed By: #### T ABA HERNADEZ, BMP ####[address] [place] [address] Abs.Imm.Granulocyte 0.03 k/uL Normal 0.00-0.30 [facility] Comment on above: Performed By: #### T BAA HERNADEZ, BMP ####[address] [place] [address] Abs.Neutrophil (Seg) 3.87 k/uL Normal 1.50-8.10 [facility] Comment on above: Performed By: #### T ABA HERNADEZ BMP ####[address] [place] [address] Basophils/100 WBC Auto (Bld) 0 % Normal 0-2 [facility] Comment on above: Performed By: #### T ABA HERNADEZ, BMP ####[address] [place] [address] Eosinophils Auto #/vol (Bld) 0.34 10*3/uL Normal 0.00-0.44 [facility] Comment on above: Performed By: #### T ABA HERNADEZ, BMP ####[address] [place] [address] Eosinophils/100 WBC Auto (Bld) 6 % High 1-4 [facility] Comment on above: Performed By: #### T ABA HERNADEZ, BMP ####[address] [place] [address] Erythrocyte distribution width Auto Ratio (RBC) 12.9 % Normal 11.8-14.4 [facility] Comment on above: Performed By: #### T ABA HERNADEZ, BMP ####[address] [place] [address] Hematocrit Auto Volume Fraction (Bld) 40.4 % Low 40.7-50.3 [facility] Comment on above: Performed By: #### T ABA HERNADEZ, BMP ####[address] [place] [address] Hemoglobin mass conc (Bld) 14.0 g/dL Normal 13.0-17.0 [facility] Comment on above: Performed By: #### T ABA HERNADEZ, BMP ####[address] [place] [address] Immature granulocytes #/vol (Bld) 1 % High 0 [facility] Comment on above: Performed By: #### T ABA HERNADEZ, BMP ####[address] [place] [address] Lymphocytes Auto #/vol (Bld) 1.24 10*3/uL Normal 1.10-3.70 [facility] Comment on above: Performed By: #### T ABA HERNADEZ, BMP ####[address] [place] [address] Lymphocytes/100 WBC Auto (Bld) 21 % Low 24-43 [facility] Comment on above: Performed By: #### T ABA HERNADEZ, BMP ####[address] [place] [id number] MCH Auto Entitic mass (RBC) 33.7 pg High 25.2-33.5 [facility] Comment on above: Performed By: #### T ABA HERNADEZ, BMP ####[address] , [facility] MCHC Auto mass conc (RBC) 34.7 g/dL Normal 28.4-34.8 [facility] Comment on above: Performed By: #### T MARICARMEN, CDP, BMP ####[address] , [facility] MCV Auto Entitic volume (RBC) 97.1 fL Normal 82.6-102.9 [facility] Comment on above: Performed By: #### T SH, CDP, BMP ####[address] , [place] [address] Monocytes Auto #/vol (Bld) 0.46 10*3/uL Normal 0.10-1.20 [facility] Comment on above: Performed By: #### T MARICARMEN, ABA, BMP ####[address] , [facility] Monocytes/100 WBC Auto (Bld) 8 % Normal 3-12 [facility] Comment on above: Performed By: #### T MARICARMEN, ABA, BMP ####[address] , [place] [address] Neutrophil (Seg) 64 % Normal 36-65 [facility] Comment on above: Performed By: #### T MARICARMEN, CDP, BMP ####[address] , [facility] NRBC Automated 0.0 per 100 WBC Normal 0.0 [facility] Comment on above: Performed By: #### T SH, CDP, BMP ####[address] , [facility] Platelet mean volume Auto Entitic volume (Bld) 9.0 fL Normal 8.1-13.5 [facility] Comment on above: Performed By: #### T SH, CDP, BMP ####[address] , [facility] Platelets Auto #/vol (Bld) 157 10*3/uL Normal 138-453 [facility] Comment on above: Performed By: #### T ABA HERNADEZ, BMP ####[address] [place] [address] RBC Auto #/vol (Bld) 4.16 10*6/uL Low 4.21-5.77 [facility] Comment on above: Performed By: #### T ABA HERNADEZ, BMP ####[address] [place] [address] WBC Auto #/vol (Bld) 6.0 10*3/uL Normal 3.5-11.3 [facility] Comment on above: Performed By: #### T ABA HERNADEZ, BMP ####[address] [place] [address] Auto Diff Performed NOT REPORTED Normal [facility] Comment on above: Performed By: #### ABA OLSON, BMP ####[address] [place] [address] Platelets Auto #/vol (Bld) NOT REPORTED Normal [facility] Comment on above: Performed By: #### T ABA HERNADEZ, BMP ####[address] [place] [address] RBC morphology finding Nom (Bld) NOT REPORTED Normal [facility] Comment on above: Performed By: #### T ABA HERNADEZ, BMP ####[address] [place] [address] WBC Morphology NOT REPORTED Normal [facility] Comment on above: Performed By: #### ABA OLSON, BMP ####[address] [place] [address] Comp Metabol,Fastingon 06-15 (cont.) Normal [facility] Comment on above: Result Comment: Aver age GFR for 70 or more years old: 75 mL/min/1.73sq mChronic Kidney Disease: <60 mL/min/1.73sq mKidney failure: <15 mL/min/1.73sq meGFR calculated using average adult body mass. Additional eGFR calculator available at:http://www.Inno[employer]ive/multiple_crcl_2012.htm Performed By: #### T ABA HERNADEZ, BMP ####[address] [place] [address] Albumin mass conc 4.0 g/dL Normal 3.5-5.2 [facility] Comment on above: Performed By: #### T ABA HERNADEZ, BMP ####[address] [place] [address] Albumin/Globulin mass ratio 1.5 {ratio} Normal 1.0-2.5 [facility] Comment on above: Performed By: #### T ABA HERNADEZ, BMP ####[address] [place] [address] Alkaline Phos 74 U/L Normal 40-129 [facility] Comment on above: Performed By: #### T ABA HERNADEZ, BMP ####[address] [place] [address] ALT enzyme act/vol 10 U/L Normal 5-41 [facility] Comment on above: Performed By: #### T ABA HERNADEZ, BMP ####[address] [place] [address] Anion gap 3 molar conc 11 mmol/L Normal 9-17 [facility] Comment on above: Performed By: #### T ABA HERNADEZ, BMP ####[address] [place] [address] AST enzyme act/vol 15 U/L Normal <40 [facility] Comment on above: Performed By: #### T ABA HERNADEZ, BMP ####[address] [place] [address] Bilirubin Ql (U) 0.50 mg/dL Normal 0.3-1.2 [facility] Comment on above: Performed By: #### T SH, CDP, BMP ####[address] [place] [address] BUN/CRE Ratio 9 Normal 9-20 [facility] Comment on above: Performed By: #### T SH, CDP, BMP ####[address] [place] [address] Calcium mass conc 9.6 mg/dL Normal 8.6-10.4 [facility] Comment on above: Performed By: #### T SH, CDP, BMP ####[address] [place] [address] Chloride molar conc 102 mmol/L Normal 98-107 [facility] Comment on above: Performed By: #### T SH, CDP, BMP ####[address] [place] [address] CO2 molar conc 28 mmol/L Normal 20-31 [facility] Comment on above: Performed By: #### T SH, CDP, BMP ####[address] [place] [address] Creatinine mass conc 1.71 mg/dL High 0.70-1.20 [facility] Comment on above: Performed By: #### T SH, CDP, BMP ####[address] [place] [address] GFR, Amer 48 mL/min Low >60 [facility] Comment on above: Performed By: #### T SH, CDP, BMP ####[address] [place] [address] GFR,non Amer 40 mL/min Low >60 [facility] Comment on above: Performed By: #### T SH, CDP, BMP ####[address] [place] [address] Glucose mass conc 95 mg/dL Normal 70-99 [facility] Comment on above: Performed By: #### T ABA HERNADEZ, BMP ####[address] [place] [address] Potassium molar conc 4.3 mmol/L Normal 3.7-5.3 [facility] Comment on above: Performed By: #### T ABA HERNADEZ, BMP ####[address] [place] [address] Protein mass conc 6.7 g/dL Normal 6.4-8.3 [facility] Comment on above: Performed By: #### T ABA HERNADEZ, BMP ####[address] [place] [address] Sodium molar conc 141 mmol/L Normal 135-144 [facility] Comment on above: Performed By: #### T ABA HERNADEZ, BMP ####[address] [place] [address] Staging: Normal [facility] Comment on above: Result Comment: Stag e 1: Some kidney damage normal GFRStage 2: Mild kidney damage GFR 60-89Stage 3: Moderate kidney damage GFR 30-59Stage 4: Severe kidney damage GFR 15-29Stage 5: Severe kidney damage GFR <15ESRD - chronic treatment by dialysis or transplant Performed By: #### T ABA HERNADEZ, BMP ####[address] [place] [address] Urea nitrogen mass conc 15 mg/dL Normal 8-23 [facility] Comment on above: Performed By: #### T ABA HERNADEZ, BMP ####[address] [place] [address] Lipid Prof, Fastingon 2017 Cholesterol in HDL mass conc 53 mg/dL Normal >40 [facility] Comment on above: Result Comment: HDL Guidelines: <40 Undesirable 40-59 Borderline >59 Desirable Performed By: #### T ABA HERNADEZ, BMP ####[address] [place] [address] Cholesterol in LDL mass conc 55 mg/dL Normal 0-130 [facility] Comment on above: Result Comment: LDL Guidelines: <100 Desirable 100-129 Near to/above Desirable 130-159 Borderline >159 UndesirableDirect (measured) LDL and calculated LDL are not interchangeable tests. Performed By: #### T ABA HERNADEZ, BMP ####[address] [place] [address] Cholesterol mass conc 137 mg/dL Normal <200 [facility] Comment on above: Result Comment: Chol esterol Guidelines: <200 Desirable 200-240 Borderline >240 Undesirable Performed By: #### T ABA HERNADEZ, BMP ####[address] [place] [address] Cholesterol.total/Chol esterol in HDL mass ratio 2.6 {ratio} Normal <5 [facility] Comment on above: Performed By: #### T ABA HERNADEZ, BMP ####[address] [place] [address] Triglyceride,Fasting 147 mg/dL Normal <150 [facility] Comment on above: Result Comment: Trig lyceride Guidelines: <150 Desirable 150- 199 Borderline 200-499 High >499 Very high Based on AHA Guidelines for fasting triglyceride, July 2012. Performed By: #### T ABA HERNADEZ, BMP ####[address] [place] [address] Cholesterol in VLDL mass conc NOT REPORTED Normal -30 [facility] Comment on above: Performed By: #### T BAA HERNADEZ, BMP ####[address] [place] [address] Thyroid Stim. Horm.on 2017 Thyrotropin Qn 0.43 m[IU]/L Normal 0.30-5.00 [facility] Comment on above: Performed By: #### T ABA HERNADEZ, BMP ####[address] [place] [address] Thyroxine, Freeon 06-15-2018 Thyroxine, Free 1.37 ng/dL Normal 0.93-1.70 [facility] Comment on above: Performed By: #### T SH, CDP, BMP ####[address] [place] [address] Group A Strep DNAon 05-05-20 18 Group A Strep DNA Specimen Description .THROAT SWABSpecial Requests NOT REPORTEDDirect Exam Negative: Specimen negative for Streptococcus pyogenes by DNA amplification.Report Status FINAL 05/05/2018 [facility] Comment on above: Performed By: #### G ASDNA ####[place] [address] [place], [place] [phone] [place] [address] Strep Gr A Direct Agon 05-04 S. pyogenes Ag IA Ql (Unsp spec) Specimen Description .THROATSpecial Requests NOT REPORTEDDirect Exam Rapid Strep A negative. A negative Rapid Group A Strep Screen result does not rule out the possibility of Group A Streptococci in the specimen. A Group A strep DNA test will be performed. Report Status FINAL 05/04/2018 [facility] Comment on above: Performed By: #### S GPA ####[address] [place] [address] XR CHEST (2 VW)on 05-04-2018 [...] OR VASCULAR CONGESTION.Interpreted by:FARRAH Shresthaigned by:Bijan Miranda MD05/04/18Final result [facility] H. pylori Antigenon 03-31-20 18 H. pylori Antigen Specimen Description .FECES Performed at [address] [place] [address] [phone] Special Requests NOT REPORTEDDirect Exam NEGATIVE Performed at [facility] [address] [place] [address] [phone] Report Status FINAL 03/31/2018 Normal [facility] Comment on above: Performed By: #### F HPY ####[facility] [place], [place] [phone] [place] [address] CT ABDOMEN PELVIS W IV [...] by:FARRAH Zelayaigned by:Jessa Garcia MD03/13/18inal result Normal [facility] Basic Metabolic Profon 03-12 (cont.) Normal [facility] Comment on above: Result Comment: Aver age GFR for 70 or more years old: 75 mL/min/1.73sq mChronic Kidney Disease: <60 mL/min/1.73sq mKidney failure: <15 mL/min/1.73sq meGFR calculated using average adult body mass. Additional eGFR calculator available at:http://www.[employer].Pixelated/multiple_crcl_2011.htm Performed By: #### B MP ####[address] [place] [address] Anion gap 3 molar conc 12 mmol/L Normal 9-17 [facility] Comment on above: Performed By: #### B MP ####[address] [place] [address] BUN/CRE Ratio 13 Normal 9-20 [facility] Comment on above: Performed By: #### B MP ####[address] [place] [address] Calcium mass conc 9.2 mg/dL Normal 8.6-10.4 [facility] Comment on above: Performed By: #### B MP ####[address] [place] [address] Chloride molar conc 98 mmol/L Normal 98-107 [facility] Comment on above: Performed By: #### B MP ####[address] [place] [address] CO2 molar conc 27 mmol/L Normal 20-31 [facility] Comment on above: Performed By: #### B MP ####[address] [place] [address] Creatinine mass conc 1.44 mg/dL High 0.70-1.20 [facility] Comment on above: Performed By: #### B MP ####[address] [place] [address] GFR, Amer 59 mL/min Low >60 [facility] Comment on above: Performed By: #### B MP ####[address] [place] [address] GFR,non Amer 48 mL/min Low >60 [facility] Comment on above: Performed By: #### B MP ####[address] [phone] Glucose mass conc 98 mg/dL Normal 70-99 [facility] Comment on above: Performed By: #### B MP ####[address] [place] [address] Potassium molar conc 4.4 mmol/L Normal 3.7-5.3 [facility] Comment on above: Performed By: #### B MP ####[address] [place] [address] Sodium molar conc 137 mmol/L Normal 135-144 [facility] Comment on above: Performed By: #### B MP ####[address] [place] [address] Staging: Normal [facility] Comment on above: Result Comment: Stag e 1: Some kidney damage normal GFRStage 2: Mild kidney damage GFR 60-89Stage 3: Moderate kidney damage GFR 30-59Stage 4: Severe kidney damage GFR 15-29Stage 5: Severe kidney damage GFR <15ESRD - chronic treatment by dialysis or transplantPerformed at [address] [place] [address] Performed By: #### B MP ####[address] [place] [address] Urea nitrogen mass conc 18 mg/dL Normal 8-23 [facility] Comment on above: Performed By: #### B MP ####[address] [place] [address] Basic Metabolic Profon 10-14 (cont.) Normal [facility] Comment on above: Result Comment: Aver age GFR for 70 or more years old: 75 mL/min/1.73sq mChronic Kidney Disease: <60 mL/min/1.73sq mKidney failure: <15 mL/min/1.73sq meGFR calculated using average adult body mass. Additional eGFR calculator available at:http://[email or web address] on Demand.Pixelated/multiple_crcl_2011.htm Performed By: #### T ABA HERNADEZ, BMP ####[address] [place] [address] Anion gap 3 molar conc 13 mmol/L Normal 9-17 [facility] Comment on above: Performed By: #### T ABA HERNADEZ, BMP ####[address] [place] [address] BUN/CRE Ratio 16 Normal 9-20 [facility] Comment on above: Performed By: #### T ABA HERNADEZ, BMP ####[address] [place] [address] Calcium mass conc 9.2 mg/dL Normal 8.6-10.4 [facility] Comment on above: Performed By: #### T ABA HERNADEZ, BMP ####[address] [place] [address] Chloride molar conc 94 mmol/L Low 98-107 [facility] Comment on above: Performed By: #### T ABA HERNADEZ, BMP ####[address] [place] [address] CO2 molar conc 26 mmol/L Normal 20-31 [facility] Comment on above: Performed By: #### T ABA HERNADEZ, BMP ####[address] [place] [address] Creatinine mass conc 1.60 mg/dL High 0.70-1.20 [facility] Comment on above: Performed By: #### T ABA HERNADEZ, BMP ####[address] [place] [address] GFR, Amer 52 mL/min Low >60 [facility] Comment on above: Performed By: #### T ABA HERNADEZ, BMP ####[address] [place] [address] GFR,non Amer 43 mL/min Low >60 [facility] Comment on above: Performed By: #### T ABA HERNADEZ, BMP ####[address] [place] [address] Glucose mass conc 108 mg/dL High 70-99 [facility] Comment on above: Performed By: #### T ABA HERNADEZ, BMP ####[address] [place] [address] Potassium molar conc 3.9 mmol/L Normal 3.7-5.3 [facility] Comment on above: Performed By: #### T ABA HERNADEZ, BMP ####[address] [place] [address] Sodium molar conc 133 mmol/L Low 135-144 [facility] Comment on above: Performed By: #### T ABA HERNADEZ, BMP ####[address] [place] [address] Staging: Normal [facility] Comment on above: Result Comment: Stag e 1: Some kidney damage normal GFRStage 2: Mild kidney damage GFR 60-89Stage 3: Moderate kidney damage GFR 30-59Stage 4: Severe kidney damage GFR 15-29Stage 5: Severe kidney damage GFR <15ESRD - chronic treatment by dialysis or transplantPerformed at [address] [place] [address] Performed By: #### T ABA HERNADEZ, BMP ####[address] [place] [address] Urea nitrogen mass conc 25 mg/dL High 8-23 [facility] Comment on above: Performed By: #### T ABA HERNADEZ, BMP ####[address] [place] [address] CBC with Diffon 10-14-2017 Abs. Basophil 0.00 k/uL Normal 0.0-0.2 [facility] Comment on above: Performed By: #### T MARICARMEN CDP, BMP ####[address] , [place] [address] Abs.Neutrophil (Seg) 8.99 k/uL High 1.8-7.7 [facility] Comment on above: Performed By: #### T MARICARMEN CDP, BMP ####[address] , [facility] Basophils/100 WBC Auto (Bld) 0 % Normal 0-2 [facility] Comment on above: Performed By: #### T ABA HERNADEZ, BMP ####[address] , [place] [address] Eosinophils Auto #/vol (Bld) 0.21 10*3/uL Normal 0.0-0.4 [facility] Comment on above: Performed By: #### T ABA HERNADEZ, BMP ####[address] , [place] [address] Eosinophils/100 WBC Auto (Bld) 2 % Normal 0-8 [facility] Comment on above: Performed By: #### T ABA HERNADEZ, BMP ####[address] , [facility] Lymphocytes Auto #/vol (Bld) 1.18 10*3/uL Normal 1.0-4.8 [facility] Comment on above: Performed By: #### T MARICARMEN CDP, BMP ####[address] , [place] [address] Lymphocytes/100 WBC Auto (Bld) 11 % Low 24-44 [facility] Comment on above: Performed By: #### T MARICARMEN CDP, BMP ####[address] , [place] [address] Monocytes Auto #/vol (Bld) 0.32 10*3/uL Normal 0.0-1.0 [facility] Comment on above: Performed By: #### T ABA HERNADEZ, BMP ####[address] [place] [address] Monocytes/100 WBC Auto (Bld) 3 % Normal 0-12 [facility] Comment on above: Performed By: #### T ABA HERNADEZ, BMP ####[address] [place] [address] Morphology Interp Azar (Bld) Normal Normal [facility] Comment on above: Result Comment: Perf ormed at [address] [place] [address] Performed By: #### T ABA HERNADEZ, BMP ####[address] [place] [address] Neutrophil (Seg) 84 % High 36-66 [facility] Comment on above: Performed By: #### T ABA HERNADEZ, BMP ####[address] [place] [address] Erythrocyte distribution width Auto Ratio (RBC) 14.0 % Normal 12.1-15.2 [facility] Comment on above: Performed By: #### T ABA HERNADEZ, BMP ####[address] [place] [address] Hematocrit Auto Volume Fraction (Bld) 44.7 % Normal 41-53 [facility] Comment on above: Performed By: #### T ABA HERNADEZ, BMP ####[address] [place] [address] Hemoglobin mass conc (Bld) 14.6 g/dL Normal 13.5-17.0 [facility] Comment on above: Performed By: #### T MARICARMEN CDP, BMP ####[address] [place] [address] MCH Auto Entitic mass (RBC) 32.2 pg Normal 26-34 [facility] Comment on above: Performed By: #### T SH, CDP, BMP ####[address] [place] [address] MCHC Auto mass conc (RBC) 32.6 g/dL Normal 31-37 [facility] Comment on above: Performed By: #### T ABA HERNADEZ, BMP ####[address] , [facility]83 MCV Auto Entitic volume (RBC) 98.7 fL Normal 80-100 [facility] Comment on above: Performed By: #### T ABA HERNADEZ, BMP ####[address] [place] [id number] Platelet mean volume Auto Entitic volume (Bld) 7.3 fL Normal 6.0-12.0 [facility] Comment on above: Performed By: #### T ABA HERNADEZ, BMP ####[address] [place] [address] Platelets Auto #/vol (Bld) 216 10*3/uL Normal 140-450 [facility] Comment on above: Performed By: #### T ABA HERNADEZ, BMP ####[address] , [facility]83 RBC Auto #/vol (Bld) 4.53 10*6/uL Normal 4.5-5.9 [facility] Comment on above: Performed By: #### T ABA HERNADEZ, BMP ####[address] [place] [address] WBC Auto #/vol (Bld) 10.7 10*3/uL Normal 3.5-11.0 [facility] Comment on above: Performed By: #### T ABA HERNADEZ, BMP ####[address] [place] [id number] Abs.Imm.Granulocyte NOT REPORTED Normal 0.00-0.30 [facility] Comment on above: Performed By: #### T ABA HERNADEZ, BMP ####[address] [place] [address] Auto Diff Performed NOT REPORTED Normal [facility] Comment on above: Performed By: #### T ABA HERNADEZ, BMP ####[address] [place] [address] Immature granulocytes #/vol (Bld) NOT REPORTED Normal 0 [facility] Comment on above: Performed By: #### T ABA HERNADEZ, BMP ####[address] [place] [address] Platelets Auto #/vol (Bld) NOT REPORTED Normal [facility] Comment on above: Performed By: #### T ABA HERNADEZ, BMP ####[address] [place] [address] RBC morphology finding Nom (Bld) NOT REPORTED Normal [facility] Comment on above: Performed By: #### T ABA HERNADEZ, BMP ####[address] [place] [address] WBC Morphology NOT REPORTED Normal [facility] Comment on above: Performed By: #### T ABA HERNADEZ, BMP ####[address] [place] [address] Thyroid Stim. Horm.on 2016 Thyrotropin Qn 0.23 m[IU]/L Low 0.30-5.00 [facility] Comment on above: Result Comment: Perf ormed at [address] [place] [address] Performed By: #### T ABA HERNADEZ, BMP ####[address] [place] [address] PSA, [employer] 10-01-2017 Prostatic Spec. Ag 0.42 ug/L Normal <4.1 [facility] Comment on above: Result Comment: The Deonte ECLIA assay is used. Results obtained with different assay methods cannot be used interchangeably.Performed at [address] [place] [address] ([phone] Performed By: #### P SAD ####[address] [place] [address] Vital Signs Date Time Vital Sign Value Performing Clinician Facility 10-18-2023 12:16-0500 Heart rate 84 /min [facility] 10-18-2023 11:43-0500 Body height 185.42 cm [facility] 10-18-2023 11:43-0500 Body temperature 98.3 [degF] [facility] 10-18-2023 11:43-0500 Body weight 90.9 kg [facility] 10-18-2023 11:43-0500 Diastolic blood pressure 66 mm[Hg] [facility] 10-18-2023 11:43-0500 Respiratory rate 21 /min [facility] 10-18-2023 11:43-0500 SaO2% (BldA) [Mass fraction] 97 % [facility] 10-18-2023 11:43-0500 Systolic blood pressure 142 mm[Hg] [facility] 10-18-2023 10:20-0500 Body height 185.42 cm Brittany Amador Other [facility] [employer] Other 10-18-2023 10:20-0500 Body mass index (BMI) [Ratio] 26.36 kg/m2 Brittany Amador Other [employer] [facility] [employer] Other 10-18-2023 10:20-0500 Body temperature 98.9 [degF] Brittany Amador Other [facility] Other 10-18-2023 10:20-0500 Body weight 90.63 kg Brittany Amador Other [employer] [facility] [employer] Other 10-18-2023 10:20-0500 Respiratory rate 18 /min Brittany Amador Other [facility] Other 10-18-2023 10:20-0500 SaO2% (BldA) [Mass fraction] 99 % Brittany Marjorie Other [facility] Other Encounters Encounter Date Encounter Type Care Provider Facility Start: 06-16-2024 ambulatory Facility:Óscar Ramirez Start: 06-10-2024 End: 06-10-2024 ambulatory DEBRA MUNGUIA Not Available Start: 02-26-2024 End: 02-26-2024 ambulatory DEBRA MUNGUIA Not Available Start: 11-20-2023 End: 11-20-2023 ambulatory DEBRA MUNGUIA Not Available Start: 10-18-2023 End: 10-18-2023 ambulatory Brittany Marjorie Other [facility] Other Start: 10-18-2023 Patient encounter procedure Brittany Amador [facility] Start: 10-18-2023 End: 10-18-2023 Emergency department patient visit Michael Amador Facility:[facility] Start: 10-18-2023 End: 10-18-2023 Emergency department patient visit [facility] Work Phone: Start: 03-10-[address] THEE MCGUIRE [facility] ity:H1 Start: 10-30-2022 End: 10-30-[address] THEE MCGUIRE Facility:[facility]1 Start: 09-10-2022 End: 09-10-[address] THEE MCGUIRE Facility:[facility]1 Start: 05-13-2022 End: 05-14-[address] THEE MCGUIRE Facility:[facility]1 Start: 02-03-2022 End: 02-07-2022 Evaluation and management of inpatient PHYSICIAN UNKNOWN Facility:[facility] Start: 08-17-2018 End: 08-31-2018 Evaluation and management of inpatient PJ EDD [facility] Start: 08-16-2018 End: 08-16-2018 Emergency department patient visit ISIDRO WHITE [facility] Start: 08-06-2018 End: 08-06-2018 Emergency department patient visit ISIDRO WILKINS CINDY [facility] Start: 08-03-2018 End: 08-04-2018 [facility] Start: 06-15-2018 End: 06-16-2018 [facility] Start: 05-04-2018 End: 05-04-2018 Emergency department [facility] Start: 03-30-2018 End: 03-31-2018 Patient encounter [facility] RIOS [facility] Start: 03-27-2018 End: 03-28-2018 [facility] Start: 03-12-2018 End: 03-15-2018 [facility] Start: 10-14-2017 End: 10-15-2017 Patient encounter [facility] Start: 10-01-2017 End: 10-02-2017 [facility] Procedures Date Procedure Procedure Detail Performing Clinician Start: 10-18-2023 CT of paranasal sinu s without contrast Start: 02-04-2022 Antibody screen PHYSICI AN UNKNOWN Comment on above: Performed By: #### 3 0318 #### [address] Start: 08-31-2018 DISCHARGE PATIENT PJ PUGA Start: 08-19-2018 Microscopic urinalysis PJ PARRJUA Start: 08-19-2018 URINE RT REFLEX TO CULTURE JP PARRJUA Start: 08-17-2018 DIETARY NUTRITION SUPPLEMENTS ANOOPMED EDD Start: 08-17-2018 PATIENT STATUS (FROM ED OR OR/PROCEDURAL) PJ PARRJUA Start: 08-17-2018 IP CONSULT TO TECHNICAL LEAD AL MEDICINE PJ PUGA Start: 08-17-2018 DIET GENERAL ANOOPTIMMY MUSTAFA Start: 08-17-2018 IP CONSULT TO DIETITIAN ANOOPTIMMY PUGA Start: 08-17-2018 IP CONSULT TO HISTOR Y AND PHYSICAL ANOOPTIMMY PUGA Start: 08-17-2018 MISCELLANEOUS NURSIN G CARE ORDER (SPECIFY) PJ PUGA Start: 08-17-2018 OT EVAL AND TREAT PJ MANCERAA Start: 08-17-2018 PT EVAL AND TREAT PJ MANCERAA Start: 08-17-2018 FULL CODE PJ MUSTAFA Start: [...] YARBROUGH Start: 06-15-2018 Assay of free thyroxine CLARTIZA YARBROUGH Start: 06-15-2018 Assay of thyroid sti mulating hormone tsh CLARITZA YARBROUGH Start: 06-15-2018 Blood count complete auto&auto difrntl wbc CLARITZA YARBROUGH Start: 06-15-2018 Comprehensive metabolic panel CLARITZA YARBROUGH Start: 06-15-2018 Lipid panel CLARITZA GIVENS Start: 05-04-2018 Radiologic exam chest 2 views CLARITZA YARBROUGH Start: 05-04-2018 STREP A DNA PROBE, AMPLIFICATION CLARITZA YARBROUGH Start: 05-04-2018 STREP SCREEN GROUP A THROAT CLARITZASHAWANDA YARBROUGH Start: 03-30-2018 H. PYLORI ANTIGEN PATRI CK YARBROUGH Start: 03-12-2018 Ct abdomen & pelvis w/contrast material CLARITZASHAWANDA YARBROUGH Start: 03-12-2018 Basic metabolic pane l calcium total CLARITZASHAWANDA YARBROUGH Start: 10-14-2017 Basic metabolic 2000 panel - Serum or Plasma CLARITZA YARBROUGH Start: 10-14-2017 CBC WITH AUTO DIFFERENTIAL CLARITZASHAWANDA YARBROUGH Start: 10-14-2017 TSH WITHOUT REFLEX PATR ICK YARBROUGH Start: 10-01-2017 PSA, DIAGNOSTIC CLARITZA YARBROUGH Plan of Treatment Date Care Activity Detail Author Start: 10-18-2023 Bacteria identified in Blood by Culture [facility] Start: 10-18-2023 Superficial Wound Culture Superficial Wound Culture [facility] Bacteria identified in Unspecified specimen by Aerobe culture [facility] Patient Education Cellulitis (Sk in Infection), Adult (DC) [facility] Work Phone: Patient referral [facility] Work Phone: Payers Date Payer Category Payer Self-pay 2023 Unknown [id number] 2015 Medicare [id number] 2012 Unknown [id number] 1959 Medicare [id number] 1959 Private Health Insurance [id number] 1945 Unknown [id number] [id number] 1946 Unknown [id number] 2.16.840.1.481466.3.579.2.173 1946 Unknown [id number] 2.16.840.1.847683.3.579.2.173 1946 Unknown [id number] 2.16.840.1.028682.3.579.2.173 1946 Unknown [id number] 2.16.840.1.625204.3.579.2.173 1946 Unknown [id number] 2.16.840.1.335281.3.579.2.173 1946 Unknown [id number] 2.16.840.1.797541.3.579.2.173 1946 Unknown [id number] 2.16.840.1.197983.3.579.2.173 1946 Unknown [id number] 2.16840.1.374551.3.579.2.173 1946 Unknown [id number] 2.16.840.1.861420.3.579.2.173 1946 Unknown [id number] 2.16.840.1.138778.3.579.2.173 1946 Unknown [id number] 2.16.840.1.819299.3.579.2.176 1946 Unknown [id number] 2.16.840.1.790758.3.579.2.647 1946 Unknown [id number] 2.16.840.1.953913.3.579.2.593 1946 Unknown [id number] 2.16.840.1.041568.3.579.2.593 1946 Unknown [id number] 2.16.840.1.954239.3.579.2.593 1946 Unknown [id number] 2.16.840.1.023250.3.579.2.593 1946 Unknown [id number] 2.16.840.1.586957.3.579.2.125 9 1946 Unknown [id number] 2.16.840.1.016318.3.579.2.125 9 1946 Unknown [id number] 2.16.840.1.413848.3.579.2.125 9 Unknown [employer] BC/BS [id number] Unknown HCAP/HFA/FAP Active M [id number] Unknown [id number] 2.16.840.1.791235.3.579.2.531 Social History Date Type Detail Facility Start: 10-18-2023 Tobacco smoking status NHIS Never smoked tobacco (finding) [facility] Start: 1945 Sex Assigned At Male F [facility] Sex Assigned At Sex Assigned At Bir th [facility] Other Evaluation note 10-18-2023 Note Date & Type Note Facility 10-18-2023 Evaluation note Encounter Date Diagnosis Assessment Notes Sep, Facial swelling (ICD-10 - R22.0) Patient is referred to the emergency room due to failed outpatient therapy of 2 different antibiotics, worsening swelling of his face. [facility] Other Discharge summary note 02-07-2022 Note Date & Type Note Facility 02-07-2022 Note MR#: [id number] I [facility] Pt. Name: Niels Mccullough Jr Admitted: [...] who presented to the emergency department at [facility] as a transfer from an outside hospital [...] [facility] on February 07, 2022. Plan of [...] by: Jennifer Yost MD 02/08/2022 03:29 P eJnnifer Yost MD Date Dict: 02/07/2022/12:42 P/Jennifer Yost MD Date Trans: 02/07/2022 12:59 P/freddy [id number] cc: Thee Mcguire D.O. [address] [place] [address] [place] [address] [facility] Evaluation note Note Date & Type Note Facility Evaluation note No assessment information availa [facility] Work Phone: History general Narrative - [...] Hospitalization History ADMITTED FOR LOW SODIUM 2017 [facility] Other Summary Purpose Family History No Family [...] section and content) DATE CREATED AUTHOR 09/15/2018 [facility] DATE CREATED AUTHOR AUTHOR'S ORGANIZ ATION 10/03/2018 [facility] DATE CREATED AUTHOR AUTHOR'S ORGANIZ ATION 04/10/2022 [facility] DATE CREATED AUTHOR AUTHOR'S ORGANIZ ATION 03/11/2023 [facility] DATE CREATED AUTHOR AUTHOR'S ORGANIZ ATION 12/05/2023 [facility] DATE CREATED AUTHOR AUTHOR'S ORGANIZ ATION 06/12/2024 [facility] EPIC DATE CREATED AUTHOR AUTHOR'S ORGANIZ ATION 06/18/2024 [facility] Care Teams (unrecognized sec tion and content) [...] BE BASED ON THE PRIMARY CLINICAL RECORDS. [facility]. provides no warranty or guarantee of the accuracy or completeness of information in this document.
[2024-08-03 03:20] LABS: INR 1.06; Prothrombin Time 11.2 sec (9.0-11.6)
[2024-08-03 03:24] LABS: Lactate/Lactic Acid 0.6 mmol/L (0.4-2.0)
[2024-08-03 03:30] LABS: Alanine Aminotransferase 13 U/L (16-63); Albumin Level 3.8 g/dL (3.4-5.0); Alkaline Phosphatase 88 U/L (46-116); Anion Gap 16.7; Aspartate Amino Transferase 14 U/L (15-37); BUN Creatinine Ratio 12.4; Bilirubin Total 0.3 mg/dL (0.2-1.0); Calcium 8.9 mg/dL (8.5-10.1); Carbon Dioxide 24.8 mmol/L (21.0-32.0); Chloride 99 mmol/L (98-107); Estimated GFR (African America 30 (>=60 mL/min/1.73m^2); Estimated GFR (Non-African Ame 25 (>=60 mL/min/1.73m^2); Globulin 3.7 g/dL; Glucose 106 mg/dL (74-106); Potassium 3.5 mmol/L (3.5-5.1); Sodium 137 mmol/L (136-145); Total Protein 7.5 g/dL (6.4-8.2)
[2024-08-03 03:36] LABS: Bacteria Urine TRACE #/HPF (NONE SEEN); Cast Seen? NONE SEEN #/LPF (NONE SEEN); Crystals Seen? None Seen #/HPF (None Seen); Mucus Urine NONE SEEN (NONE SEEN); RBC Urine NONE SEEN #/HPF (0-2); Squamous Epithelial Cell Urine NONE SEEN #/LPF (NONE/RARE); WBC Urine NONE SEEN #/HPF (NONE SEEN)
[2024-08-03 03:47] VITALS: BP 189/99; PULSE 78; O2SAT 95
--- NOTE | 2024-08-03 04:13 | CT_ITS ---
The [address] [address] Patient Name: ALBIN VILLALTA MRN: [id number] date: 1945 Sex: M Assigned Patient Location: ER Current Patient Location: ER Accession/Order Number: [id number] Exam Date: 08/03/2024 04:50 Report Date: 08/03/2024 05:30 At the request of: TRACIE MARKER Procedure: CT abdomen pelvis wo con EXAM: CT abdomen pelvis wo con HISTORY: Bowel gas pattern suggesting either an enteritis or early small bowel obstruction on the acute abdominal series dated 2023. COMPARISON: Acute abdominal series dated 08/03/[address] abdomen/pelvis dated 03/21/2020. TECHNIQUE: Routine CT abdomen/pelvis without intravenous contrast. FINDINGS: Lung bases: The interstitial markings and groundglass opacities at both lung bases are stable. There is no new consolidation or pleural effusion. Liver: Unremarkable. Gallbladder: Previous cholecystectomy. There is no significant biliary dilatation. Pancreas: There are a few small calcifications within the pancreas. Spleen: Unremarkable. Adrenal glands: Unremarkable. Kidneys: There is a stable 4.8 mm Bosniak 2 right renal cyst, complicated with proteinaceous debris and/or blood degradation products. There is a 3.1 mm nonobstructive left renal calculus. Bowel: There is a large amount of stool within the colon. There are colonic diverticula without diverticulitis. The appendix is not identified. There is a small hiatal hernia. The distal esophagus is unremarkable. There is gastric wall thickening which may be accentuated by underdistention. Fluid and air-fluid levels within nondilated jejunal and ileal small bowel loops. Correlate with clinical symptoms of a gastroenteritis. At the present time, the bowel gas pattern does not appear obstructive. Inflammation: There is no free air, free fluid or inflammatory reaction. Vasculature: Mild aortic valvular calcification. Mild mitral annular calcification. Mild atheromatous calcification descending thoracic and abdominal aorta. Mild atheromatous calcification iliac and right common femoral artery. The caval filter within the IVC is unchanged in position, 2.1 cm below the renal veins. Lymphadenopathy: There are no pathologically enlarged lymph nodes. Pelvis: A portion of the pelvis is obscured by beam hardening artifact from a left hip replacement. The balloon tip of a Augustin catheter is within the urinary bladder. The small amount of gas within the urinary bladder is most likely related to the Augustin catheter. There is circumferential thickening of the wall the urinary bladder which may in part be related to underdistention. Correlation should be made with a urinalysis to exclude a cystitis. The prostate gland is small. Osseous: The bony structures are osteopenic. There is mild to moderate dextroscoliosis of the thoracic spine. There is a stable compression fracture of the L1 vertebral body. There are degenerative changes at numerous levels along the thoracolumbar spine. There is a partially imaged left hip replacement. There are mild degenerative changes at the right hip joint. CT/CT abdomen pelvis wo con IMPRESSION: The bowel gas pattern is nonobstructive with a large amount of stool within the colon. There are colonic diverticula without diverticulitis. There is a small hiatal hernia. There is gastric wall thickening which may be accentuated by underdistention and fluid and air-fluid levels within nondilated jejunal and ileal small bowel loops. Correlate with clinical findings of a gastroenteritis. There is no free air, free fluid or inflammatory reaction. Stable 4.8 mm Bosniak 2 right renal cyst. There is a 3.1 mm nonobstructive left renal calculus. Atherosclerotic disease as described. Stable caval filter within the IVC, 2.1 cm below the renal veins. Balloon tip of a Augustin catheter within the urinary bladder. The gas within the urinary bladder is most likely related to the Augustin catheter. There is circumferential thickening of the wall the urinary bladder which may in part be related to underdistention. Correlation should be made with a urinalysis to exclude a cystitis. The bony structures are osteopenic. Stable compression fracture of the L1 vertebral body. Electronically authenticated by: DEVENDRA MILLER Date: 08/03/2024 05:30
== END 2024-08-03 06:40 | disposition home or self-care (01) ==
PROVIDERS: Emergency Provider Emergency Medicine; PCP Internal Medicine
DX: R33.9 Retention of urine, unspecified (principal); N18.9 Chronic kidney disease, unspecified
CPT/HCPCS: 36415; 51702; 74022; 74176; 80053; 81001; 83605; 85025; 85610; 99285

== ENCOUNTER 2024-09-20 07:03 | Emergency (ER) | payer MEDICARE, SELFPAY ==
[2024-09-20 07:06] VITALS: BP 168/91; PULSE 88; TEMP 36.8; O2SAT 98; BMI 27.1
--- NOTE | 2024-09-20 07:20 | ED.GENADUL1 ---
HPI HPI - General Adult General Chief complaint: Urogenital-Male Stated complaint: URINARY RETENTION Time Seen by Provider: 09/20/24 07:18 Source: patient Mode of arrival: ambulance Limitations: physical limitation History of Present Illness HPI narrative: Patient is a 78-year-old male who is presenting to the ER with chief complaint of urinary retention. Patient has had a Augustin catheter previously. Patient has prostate history, he has not exactly or specifically sure what he has. Patient has a few test coming up in October at Dr. Benitez to see what type of prostate history is undergoing. Patient has no fever or chills. Patient has moderate to severe suprapubic discomfort. Patient is coming in by EMS. Patient has no nausea, vomiting, diarrhea, constipation, or any other acute complaints. Patient says that he has only 1 testicle, it was removed 2030 years ago because he kept getting urinary tract infections. All systems are negative except as noted/marked. All systems reviewed and otherwise negative. Nurses note and vital signs reviewed and patient is not hypoxic. General: The patient appears well and in no apparent distress. Patient is resting comfortably on cart. Patient is not toxic, lethargic, or listless Skin: Warm, dry, no pallor noted. There is no rash noted. No petechiae, purpura. Head: Normocephalic, atraumatic Eye: Normal conjunctiva, no drainage, EOMI. PERRL Ears, Nose, Mouth, and Throat: oral mucosa is moist. Nares patent. Mouth without vesicles. Cardiovascular: Regular Rate and Rhythm, no murmur, gallop, rub Respiratory: Patient is in no distress, no accessory muscle use, lungs are clear to auscultation, no wheezing, rales or rhonchi Back: non-tender, no CVA tenderness bilaterally to percussion. No CT LS midline pain GI: Moderate to severe suprapubic tenderness to palpation, otherwise the rest of his abdomen is no tenderness to palpation, no masses appreciated. No rebound, guarding, or rigidity noted. No distention. : Patient is circumcised, patient has 1 testicle, no tenderness to palpation to his testicle, no rash, lesion, redness, or any other acute signs of infection to the perineum, scrotum, penis. Musculoskeletal: Patient has full range of motion of all of the extremities, no motor, sensory, or focal neurological deficits Neurological: A&O x4, normal speech Psychiatric: Cooperative Related Data Home Medications ?Medication ?Instructions ?Recorded ?Confirmed carvedilol 6.25 mg tablet 6.25 mg PO DAILY 06/02/23 04/10/24 duloxetine 60 mg capsule,delayed 60 mg PO QAM 06/02/23 04/10/24 release dutasteride 0.5 mg capsule 0.5 mg PO DAILY 06/02/23 04/10/24 lactulose 10 gram/15 mL oral 15 ml PO DAILY 06/02/23 04/10/24 solution (Constulose) liothyronine 5 mcg tablet 5 mcg PO DAILY 06/02/23 04/10/24 magnesium oxide 400 mg (241.3 mg 400 mg PO DAILY 06/02/23 04/10/24 magnesium) tablet montelukast 10 mg tablet 10 mg PO DAILY 06/02/23 04/10/24 pantoprazole 20 mg tablet,delayed 20 mg PO DAILY 06/02/23 04/10/24 release rosuvastatin 5 mg tablet 5 mg PO DAILY 06/02/23 04/10/24 tamsulosin 0.4 mg capsule 0.4 mg PO BID 06/02/23 04/10/24 warfarin 5 mg tablet 5 mg PO DAILY 06/02/23 04/10/24 baclofen 10 mg tablet 10 mg PO BEDTIME 11/28/23 11/28/23 furosemide 40 mg tablet 40 mg PO DAILY 11/28/23 04/10/24 trazodone 50 mg tablet 50 mg PO BEDTIME 03/21/24 04/10/24 Previous Rx's ?Medication ?Instructions ?Recorded hydroxyzine HCl 25 mg tablet 25 mg PO TID PRN itching #20 tabs 05/25/23 methylprednisolone 4 mg tablets in 4 mg PO DAILY #21 ea 04/10/24 a dose pack (Medrol (Codey)) tramadol 50 mg tablet 50 mg PO BID PRN pain #6 tabs 04/10/24 Allergies Allergy/AdvReac Type Severity Reaction Status Date / Time aspirin Allergy Unknown Unknown Verified 08/03/24 02:30 cephalexin (From Keflex) Allergy Unknown Unknown Verified 08/03/24 02:30 codeine Allergy Unknown Unknown Verified 08/03/24 02:30 indomethacin (From Indocin) Allergy Unknown Unknown Verified 08/03/24 02:30 metoclopramide (From Reglan) Allergy Unknown Unknown Verified 08/03/24 02:30 minocycline Allergy Unknown Unknown Verified 08/03/24 02:30 Penicillins Allergy Unknown Unknown Verified 08/03/24 02:30 Sulfa (Sulfonamide Allergy Unknown Unknown Verified 08/03/24 02:30 Antibiotics) tetracycline Allergy Unknown Unknown Verified 08/03/24 02:30 erytromycin ethylsuccinate Allergy Unknown Unknown Uncoded 08/03/24 02:30 Opioid HPI Opioid Management Most Recent Opioid Data: Last Pain Scale 10 04/10/24 06:47 04/10/24 PFS PFS Social History Smoking status: Never smoker Little interest or pleasure in doing things: not at all Feeling down, depressed, or hopeless: not at all Exam Constitutional Vital Signs, click to edit/add: Last Vital Signs Temp 98.2 F 09/20/24 07:06 Pulse 88 09/20/24 07:06 Resp 18 09/20/24 07:06 BP 168/91 H 09/20/24 07:06 Pulse Ox 98 09/20/24 07:06 O2 Del Method Nasal Cannula 09/20/24 07:06 Course Vital Signs Vital signs: Vital Signs Temperature 98.2 F 09/20/24 07:06 Pulse Rate 88 09/20/24 07:06 Respiratory Rate 18 09/20/24 07:06 Blood Pressure 168/91 H 09/20/24 07:06 Pulse Oximetry 98 09/20/24 07:06 Oxygen Delivery Method Nasal Cannula 09/20/24 07:06 Temperature 98.2 F 09/20/24 07:06 Pulse Rate 88 09/20/24 07:06 Respiratory Rate 18 09/20/24 07:06 Blood Pressure 168/91 H 09/20/24 07:06 Pulse Oximetry 98 09/20/24 07:06 Oxygen Delivery Method Nasal Cannula 09/20/24 07:06 Medical Decision Making MDM Narrative Medical decision making narrative: Patient urine is clean. Initial bladder scan was approximately 375 cc. Patient has had over 800 cc out when bladder has been drained with Augustin catheter. Patient feels much better. Patient has minimal pain, spasm and discomfort at discharge, he is given a Tylenol. Otherwise patient feels much better. Patient will follow-up with PCP and Dr. Benitez. Augustin catheter education was done at bedside and on discharge paperwork. No question at discharge. Lab Data Labs: Lab Results 09/20/24 Range/Units 07:50 Urine Color Lt. yellow (YELLOW) Urine Clarity Clear (CLEAR) Urine pH 6.0 (5.0-9.0) Ur Specific [place] 1.010 (1.005-1.025) Urine Protein Trace (NEG/TRACE) mg/dL Urine Glucose (UA) Negative (NEGATIVE) mg/dL Urine Ketones Negative (NEGATIVE) mg/dL Urine Occult Blood Negative (NEGATIVE) Urine Nitrite Negative (NEGATIVE) Urine Bilirubin Negative (NEGATIVE) Urine Urobilinogen 0.2 (0.2-1.0) EU/dL Ur Leukocyte Esterase Negative (NEGATIVE) Urine RBC 0-2 (0-2) #/HPF Urine WBC None seen (NONE SEEN) #/HPF Ur Squamous Epith Cells Rare (NONE/RARE) #/LPF Urine Crystals None seen (None Seen) #/HPF Urine Bacteria Trace A (NONE SEEN) #/HPF Urine Casts None seen (NONE SEEN) #/LPF Urine Mucus None seen (NONE SEEN) Discharge Plan Discharge Chief Complaint: Urogenital-Male Clinical Impression: Acute urinary retention Patient Disposition: Home, Self-Care Time of Disposition Decision: 08:19 Condition: Fair Prescriptions / Home Meds: No Action trazodone 50 mg tablet 50 mg PO BEDTIME hydroxyzine HCl 25 mg tablet 25 mg PO TID PRN (Reason: itching) Qty: 20 0RF carvedilol 6.25 mg tablet 6.25 mg PO DAILY duloxetine 60 mg capsule,delayed release(DR/EC) 60 mg PO QAM dutasteride 0.5 mg capsule 0.5 mg PO DAILY lactulose [Constulose] 10 gram/15 mL solution 15 ml PO DAILY liothyronine 5 mcg tablet 5 mcg PO DAILY magnesium oxide 400 mg (241.3 mg magnesium) tablet 400 mg PO DAILY montelukast 10 mg tablet 10 mg PO DAILY pantoprazole 20 mg tablet,delayed release (DR/EC) 20 mg PO DAILY rosuvastatin 5 mg tablet 5 mg PO DAILY tamsulosin 0.4 mg capsule 0.4 mg PO BID warfarin 5 mg tablet 5 mg PO DAILY baclofen 10 mg tablet 10 mg PO BEDTIME furosemide 40 mg tablet 40 mg PO DAILY tramadol 50 mg tablet 50 mg PO BID PRN (Reason: pain) Qty: 6 0RF methylprednisolone [Medrol (Codey)] 4 mg tablets,dose pack 4 mg PO DAILY Qty: 21 0RF Rx Instructions: TAKE PER DOSEPAK INSTRUCTIONS Print Language: Serbian Instructions: Urinary Retention in Men (ED), Augustin Catheter Placement and Care (ED) Additional Instructions: Augustin catheter education done at bedside and on discharge paperwork. Call Dr. Benitez office today to move up your appointment from October secondary to urinary retention and because you have a Augustin catheter in place. Follow-up with your PCP as needed as well. Referrals: TAHIR MCGUIRE DO [Primary Care Provider] - 1 week Harsha Benitez MD [Physician] - 1 week
[2024-09-20 07:58] LABS: Bilirubin Urine NEGATIVE (NEGATIVE); Blood Urine NEGATIVE (NEGATIVE); Clarity Urine CLEAR (CLEAR); Color Urine LT. YELLOW (YELLOW); Glucose Urine UA NEGATIVE (NEGATIVE); Ketones Urine NEGATIVE (NEGATIVE); Leukocyte Esterase Urine NEGATIVE (NEGATIVE); Nitrite Urine NEGATIVE (NEGATIVE); Protein Urine TRACE mg/dL (NEG/TRACE); Urobilinogen Urine 0.2 EU/dL (0.2-1.0)
--- NOTE | 2024-09-20 08:02 | PC.NURSE ---
PT HAD A GUIDO CATHETER FOR APPROX 5 WEEKS -- MANAGED BY DR YARBROUGH. RECENTLY TOOK IT OUT AND NOW HAVING LOWER ABD PRESSURE AND URINARY RETENTION. BLADDER SCAN 378ML. PLACED GUIDO CATHETER.
[2024-09-20] MEDS: ACETAMINOPHEN 325 MG TABLET 650 MG PO (08:19)
[2024-09-20 08:21] LABS: Bacteria Urine TRACE #/HPF (NONE SEEN); Cast Seen? NONE SEEN #/LPF (NONE SEEN); Crystals Seen? None Seen #/HPF (None Seen); Mucus Urine NONE SEEN (NONE SEEN); RBC Urine 0-2 #/HPF (0-2); Squamous Epithelial Cell Urine RARE #/LPF (NONE/RARE); WBC Urine NONE SEEN #/HPF (NONE SEEN)
== END 2024-09-20 09:00 | disposition home or self-care (01) ==
PROVIDERS: Emergency Provider Emergency Medicine; PCP Internal Medicine
DX: R33.9 Retention of urine, unspecified (principal); Z87.440 Personal history of urinary (tract) infections
CPT/HCPCS: 51702; 81001; 99283

== ENCOUNTER 2024-09-28 04:26 | Emergency (ER) | payer MEDICARE, SELFPAY ==
[2024-09-28] VITALS (19 sets, daily range): BP systolic 148–188; BP diastolic 71–88; PULSE 69–79; TEMP 36.4; O2SAT 94–97; BMI 26.4
--- NOTE | 2024-09-28 04:39 | ED_ITS ---
HPI HPI - General Adult General Chief complaint: Chest Pain Stated complaint: CHEST PAIN Time Seen by Provider: 09/28/24 04:39 Source: patient Mode of arrival: ambulance Limitations: no limitations History of Present Illness HPI narrative: Patient presenting to the urgency department for evaluation of chest pain. Patient states that for the last 2 hours she has been having chest pain, co nstant, 10 out of 10 right in the center of his chest. No radiation. No shortness of breath, nausea, vomiting, diaphoresis. EMS reports they gave him a sublingual nitro which did not change the pain. He has had no radiation of the pain. Over the last 2 hours nothing is made it better, nothing is made it worse. Is not positional, is not reproducible. Has been constant for the last 2 hours. Patient states this is never happened in the past. States that he has a history of CHF, and hypertension but no CAD or hyperlipidemia. Denies smoking. Denies significant family cardiac history. No recent travel, cancer, surgery, immobility. No complaints at this time Related Data Home Medications ?Medication ?Instructions ?Recorded ?Confirmed carvedilol 6.25 mg tablet 6.25 mg PO DAILY 06/02/23 09/28/24 duloxetine 60 mg capsule,delayed 60 mg PO QAM 06/02/23 09/28/24 release dutasteride 0.5 mg capsule 0.5 mg PO DAILY 06/02/23 09/28/24 lactulose 10 gram/15 mL oral 15 ml PO DAILY 06/02/23 04/10/24 solution (Constulose) liothyronine 5 mcg tablet 5 mcg PO DAILY 06/02/23 09/28/24 magnesium oxide 400 mg (241.3 mg 400 mg PO DAILY 06/02/23 04/10/24 magnesium) tablet montelukast 10 mg tablet 10 mg PO DAILY 06/02/23 09/28/24 pantoprazole 20 mg tablet,delayed 20 mg PO DAILY 06/02/23 09/28/24 release rosuvastatin 5 mg tablet 5 mg PO DAILY 06/02/23 09/28/24 tamsulosin 0.4 mg capsule 0.4 mg PO BID 06/02/23 09/28/24 furosemide 40 mg tablet 40 mg PO DAILY 11/28/23 09/28/24 trazodone 50 mg tablet 50 mg PO BEDTIME 03/21/24 09/28/24 Previous Rx's ?Medication ?Instructions ?Recorded hydroxyzine HCl 25 mg tablet 25 mg PO TID PRN itching #20 tabs 05/25/23 methylprednisolone 4 mg tablets in 4 mg PO DAILY #21 ea 04/10/24 a dose pack (Medrol (Codey)) tramadol 50 mg tablet 50 mg PO BID PRN pain #6 tabs 04/10/24 Allergies Allergy/AdvReac Type Severity Reaction Status Date / Time aspirin Allergy Unknown Unknown Verified 09/28/24 04:32 cephalexin (From Keflex) Allergy Unknown Unknown Verified 09/28/24 04:32 codeine Allergy Unknown Unknown Verified 09/28/24 04:32 indomethacin (From Indocin) Allergy Unknown Unknown Verified 09/28/24 04:32 metoclopramide (From Reglan) Allergy Unknown Unknown Verified 09/28/24 04:32 minocycline Allergy Unknown Unknown Verified 09/28/24 04:32 Penicillins Allergy Unknown Unknown Verified 09/28/24 04:32 Sulfa (Sulfonamide Allergy Unknown Unknown Verified 09/28/24 04:32 Antibiotics) tetracycline Allergy Unknown Unknown Verified 09/28/24 04:32 erytromycin ethylsuccinate Allergy Unknown Unknown Uncoded 09/28/24 04:32 Opioid HPI Opioid Management Most Recent Opioid Data: Last Pain Scale 2 09/28/24 04:42 09/28/24 Review of Systems ROS Narrative Negative unless otherwise stated in the HPI PFSH PFSH Social History Smoking status: Never smoker Little interest or pleasure in doing things: not at all Feeling down, depressed, or hopeless: not at all Exam Narrative Exam Narrative: General: NAD, AAOx3, no distress Neck: Supple, no LAD, no bruit Respiratory: respiratory effort normal, speaks in full sentences, no tripod position, no accessory muscle use. Lungs clear to auscultation without rhonchi, wheezes, rales Cardiac: Regular rate and rhythm, no edema, regular s1/s2, no m/g/r Abdomen: Soft, ND/NT. No evidence of fluid wave. No pulsatile masses on exam, rebound tenderness, [place]me[place] sign or pain over Mcburney's point. Constitutional Vital Signs, click to edit/add: Last Vital Signs Temp 97.6 F 09/28/24 04:27 Pulse 70 09/28/24 06:10 Resp 17 09/28/24 06:10 BP 153/88 H 09/28/24 06:00 Pulse Ox 97 09/28/24 06:10 O2 Del Method Room Air 09/28/24 04:27 Course Vital Signs Vital signs: Vital Signs Temperature 97.6 F 09/28/24 04:27 Pulse Rate 74 09/28/24 04:27 Respiratory Rate 18 09/28/24 04:27 Blood Pressure 188/88 H 09/28/24 04:27 Pulse Oximetry 97 09/28/24 04:27 Oxygen Delivery Method Room Air 09/28/24 04:27 Temperature 97.6 F 09/28/24 04:27 Pulse Rate 70 09/28/24 06:10 Respiratory Rate 17 09/28/24 06:10 Blood Pressure 153/88 H 09/28/24 06:00 Pulse Oximetry 97 09/28/24 06:10 Oxygen Delivery Method Room Air 09/28/24 04:27 Medical Decision Making MDM Narrative Medical decision making narrative: MDM Patient with history as above presented with chest pain. History obtained from patient. Patient was nontoxic, stable. Ambulatory. Exam as above. EKG reviewed. Labs reviewed. Independently reviewed imaging. Reviewed external records. Differential diagnosis considered. Overall presentation is consistent with chest pain, hypokalemia 0543 patient states pain is significantly improved 0641 patient states pain has come back a little bit, sublingual nitro was ordered. Patient thinks it was the morphine that helped him prior. Potassium was noted to be low, was supplemented in the emergency department. 0700 patient was signed out at normal change of shift pending repeat troponin for ultimate disposition. Patient does not want to go patient theoretically has a heart score of 4 and would qualify for inpatient. will await second troponin Lab Data Labs: Lab Results 09/28/24 Range/Units 04:35 WBC 6.3 (4.0-11.0) 10^3/uL RBC 3.19 L (4.70-6.10) 10^6/uL Hgb 9.2 L (14.0-18.0) g/dL Hct 29.3 L (42.0-54.0) % MCV 91.8 (80.0-94.0) fL MCH 28.8 (25.9-34.0) pg MCHC 31.4 (29.9-35.2) g/dL RDW 15.8 H (11.0-15.0) % Plt Count 212 (150-450) 10^3/uL MPV 9.5 (9.5-13.5) fL Neut % (Auto) 58.3 (43.0-75.0) % Lymph % (Auto) 21.2 (20.5-60.0) % [place] % (Auto) 11.0 (1.7-12.0) % Eos % (Auto) 8.8 H (0.9-7.0) % Baso % (Auto) 0.5 (0.2-2.0) % Neut # (Auto) 3.7 (1.4-6.5) 10^3/uL Lymph # (Auto) 1.3 (1.2-3.8) 10^3/uL [place] # (Auto) 0.7 (0.3-0.8) 10^3/uL Eos # (Auto) 0.6 (0.0-0.7) 10^3/uL Baso # (Auto) 0.0 (0.0-0.1) 10^3/uL Abs Immat Gran (auto) 0.01 (0.00-0.03) 10^3/uL Imm/Tot Granulo (auto) 0.2 (0.0-0.5) % PT 10.3 (9.0-11.6) sec INR 0.97 APTT 25.3 (22.3-36.2) sec Sodium 140 (136-145) mmol/L Potassium 3.3 L (3.5-5.1) mmol/L Chloride 103 (98-107) mmol/L Carbon Dioxide 28.4 (21.0-32.0) mmol/L Anion Gap 11.9 BUN 24.0 H (7.0-18.0) mg/dL Creatinine 2.09 H (0.70-1.30) mg/dL Est GFR ( Amer) 38 L (>=60 mL/min/1.73m^2) Est GFR (Non-Af Amer) 31 L (>=60 mL/min/1.73m^2) BUN/Creatinine Ratio 11.5 Glucose 111 H (74-106) mg/dL Calcium 8.9 (8.5-10.1) mg/dL Total Bilirubin 0.3 (0.2-1.0) mg/dL AST 12 L (15-37) U/L ALT 13 L (16-63) U/L Alkaline Phosphatase 82 (46-116) U/L Troponin I High Sens 38.3 (4.0-76.1) pg/mL Total Protein 7.0 (6.4-8.2) g/dL Albumin 3.2 L (3.4-5.0) g/dL Globulin 3.8 g/dL Albumin/Globulin Ratio 0.8 Discharge Plan Discharge Chief Complaint: Chest Pain Clinical Impression: Chest pain, Acute hypokalemia Patient Disposition: Still a Patient Prescriptions / Home Meds: No Action trazodone 50 mg tablet 50 mg PO BEDTIME hydroxyzine HCl 25 mg tablet 25 mg PO TID PRN (Reason: itching) Qty: 20 0RF carvedilol 6.25 mg tablet 6.25 mg PO DAILY duloxetine 60 mg capsule,delayed release(DR/EC) 60 mg PO QAM dutasteride 0.5 mg capsule 0.5 mg PO DAILY lactulose [Constulose] 10 gram/15 mL solution 15 ml PO DAILY liothyronine 5 mcg tablet 5 mcg PO DAILY magnesium oxide 400 mg (241.3 mg magnesium) tablet 400 mg PO DAILY montelukast 10 mg tablet 10 mg PO DAILY pantoprazole 20 mg tablet,delayed release (DR/EC) 20 mg PO DAILY rosuvastatin 5 mg tablet 5 mg PO DAILY tamsulosin 0.4 mg capsule 0.4 mg PO BID furosemide 40 mg tablet 40 mg PO DAILY tramadol 50 mg tablet 50 mg PO BID PRN (Reason: pain) Qty: 6 0RF methylprednisolone [Medrol (Codey)] 4 mg tablets,dose pack 4 mg PO DAILY Qty: 21 0RF Rx Instructions: TAKE PER DOSEPAK INSTRUCTIONS Print Language: [place]ib[place]ian Referrals: TAHIR MCGUIRE DO [Primary Care Provider] - 1 week
--- OUTSIDE RECORDS SUMMARY | 2024-09-28 04:41 | XMS_ITS | CCD ---
Author Organization [facility] Care Team Providers Care Indirect Fire Infantryman Name Role Phone CLARITZA YARBROUGH Coleman Unavailable [...] NADERER, RUBEN SHIRA Unavailable Unavailabl e NADERER, URBEN SHIRA Unavailable Unavailabl e NADERER, RUBEN SHIRA [...] Admitting Unavailable EDMUND POWELL Attending Unavailable EDMUND POEWLL Consulting Unavailable SARY RIGGS Consulting Unavailable DEVENDRA [...] Unavailable HAY ., DR RICKS Attending Unavailable [place], DR MKIA Romero Consulting Unavailable ALEXIS ., JUAN FELDER Consulting UnavailJOSSELYN Cameron Consulting Unavailable NON STAFF Primary Care Provider UnavailLINO Drew Emergency Provider MarjorieBrittany Unavailable Michael Amador Attending Unavailable Michael Amador Admitting Unavailable NON STAFF Primary Care Unavailable DEBRA MUNGUIA Attending Unavailable DEBRA MUNGUIA Attending Unavailable DEBRA MUNGUIA Attending Unavailable THEE MCGUIRE JR Primary Care Physician Elizabeth Victoria Attending Unavailable Elizabeth Victoria Attending Unavailable Claritza YARBROUGH Attending Unavailable Elizabeth Victoria Attending Unavailable Elizabeth Victoria Attending Unavailable Allergies Allergy Classification Reported Allergen(s) Allergy Type Date of Onset Reaction(s) Facility (4 sources) Aspirin; Translations: [aspirin] Drug Allergy 06-24-20 13 Unknown Reaction [facility] Repository (4 sources) Cephalexin; Translations: [Keflex] Drug Allergy 06-24-20 13 Unknown [facility] Repository (4 sources) Codeine; Translations: [codeine] Drug Allergy 06-24-20 13 Unknown Reaction [facility] Repository (2 sources) Erythromycin Drug Allergy 11-23-19 19 Unknown Reaction [facility] (2 sources) Iothalamate Drug Allergy 06-24-20 13 [facility] Rep[facility] (4 sources) Minocycline; Translations: [minocycline] Drug Allergy 06-24-20 13 Unknown Reaction [facility] (6 sources) Penicillin; Translations: [penicillin] Drug Allergy 11-23-19 19 Nausea (finding) [facility] (2 sources) Procyclidine Drug Allergy 06-24-20 13 [facility] (1 source) Sulfamethoxazole / Trimethoprim Drug Allergy 11-23-19 19 [facility] (3 sources) Sulfonamides (Antibiotic) Drug allergy (disorder) 04-27-20 17 Unknown Reaction [facility] (4 sources) Tetracycline; Translations: [tetracycline] Drug Allergy 06-24-20 13 Unknown Reaction [facility] (2 sources) Penicillins Drug allergy (disorder) 06-24-20 13 Swelling [facility] (1 source) E.E.S. Drug allergy (disorder) 06-24-20 13 [facility] (12 sources) Cephalexin; Translations: [cephalexin] Drug Allergy 10-18-20 Nausea (finding), Diarrhea (finding) [facility] (8 sources) Indomethacin; Translations: [indomethacin] Drug Allergy 10-18-20 Nausea (finding) [facility] (5 sources) Aspirin; Translations: [aspirin] Drug Allergy Fatigue (finding) [facility] (5 sources) Codeine; Translations: [codeine] Drug Allergy Nausea (finding) [facility] (6 sources) Erythromycin; Translations: [erythromycin] Drug Allergy Nausea (finding) [facility] (1 source) Metoclopramide Drug Allergy Unknown [facility] Other (5 sources) Minocycline; Translations: [minocycline] Drug Allergy Eruption of skin (disorder) [facility] (1 source) Penicillin G Drug Allergy Unknown [facility] Other (1 source) Sulfamethoxazole / Trimethoprim Drug Allergy Unknown [facility] Other (5 sources) Tetracycline; Translations: [tetracycline] Drug Allergy Nausea (finding) [facility] (1 source) Aspirin Drug Allergy 10-18-20 [facility] (1 source) Codeine Drug Allergy 10-18-20 [facility] (1 source) Erythromycin Drug Allergy 10-18-20 [facility] (1 source) Metoclopramide Drug Allergy 10-18-20 [facility] (1 source) Minocycline Drug Allergy 10-18-20 [facility] (1 source) Penicillin Drug Allergy 10-18-20 [facility] (1 source) Penicillins Drug allergy (disorder) 10-18-20 [facility] (1 source) Sulfamethoxazole Drug Allergy 10-18-20 [facility] (1 source) Sulfonamides (Antibiotic) Drug allergy (disorder) 10-18-20 [facility] (1 source) Tetracycline Drug Allergy 10-18-20 [facility] (1 source) Trimethoprim Drug Allergy 10-18-20 [facility] (5 sources) Sulfonamides (Antibiotic); Translations: [sulfa drugs] Propensity to adverse reactions to drug Nausea (finding) [facility] Medications Current Medications Medication Drug Class(es) Dates Sig (Normalized) Sig (Original) Antihistamine & Nasal Decongestant 60 mg-120 mg oral tablet, extended release (4 sources) Start: 08-12-2024 take 1 tablet by mouth every twelve hours Antihistamine & Nasal Decongestant 60 mg-120 mg oral tablet, extended release tab(s), Oral, q12hr, Refill(s) 0 Start Date: 08/12/24 Status: Ordered carvedilol 6.25 mg oral tablet (5 sources) alpha-Adrenergic Mae, beta-Adrenergic Mae Start: 08-12-2024 take 1 tablet by mouth once daily in the morning carvedilol 6.25 mg Tab take 1 tablet by mouth every morning Start Date: 08/12/24 Status: Ordered Start: 10-18-2023 Carvedilol Act candace MG TABLET October 18, 2023 12:00am Centrum - (1 source) clindamycin 300 mg oral capsule (1 source) Lincosamide Antibacterial Start: 10-18-20 take 300 mg by mouth four times daily Clindamycin Hcl Active 300 MG PO Four times daily 40 October 18, 2023 12:00am Clopidogrel & Aspirin (1 source) DULoxetine 60 mg delayed release oral capsule (6 sources) Serotonin and Norepinephrine Reuptake Inhibitor Start: 08-12-20 take 1 capsule by mouth at bedtime duloxetine 60 mg oral delayed release capsule TAKE 1 CAPSULE AT BEDTIME. Start Date: 08/12/24 Status: Ordered Start: 10-18-2023 Duloxetine Act candace MG PO October 18, 2023 12:00am dutasteride 0.5 mg oral capsule (4 sources) 5-alpha Reductase Inhibitor Start: 08-12-2024 take 1 capsule by mouth once daily dutasteride 0.5 mg Cap TAKE 1 CAPSULE BY MOUTH EVERY DAY Start Date: 08/12/24 Status: Ordered Finerenone (1 source) Start: 10-18-2023 Finerenone (Kerendia) 10 mg Tablet Active MG TABLET October 18, 2023 12:00am finerenone 20 MG Oral Tablet [Kerendia] (4 sources) Start: 08-12-2024 take 1 mg by mouth once daily Kerendia 20 mg oral tablet mg tab(s), Oral, Daily, Refills(s) 0 Start Date: 08/12/24 Status: Ordered Furosemide (1 source) Loop Diuretic hydrALAZINE hydrochloride 100 mg oral tablet (6 sources) Arteriolar Vasodilator Start: 08-12-2024 take 1 tablet by mouth twice daily hydrALAZINE 100 mg oral tablet 100 mg = 1 tab(s), Oral, BID, # 180 tab(s), Refills(s) 0 Start Date: 08/12/24 Status: Ordered Start: 10-18-2023 Hydralazine Ac tive MG TABLET October 18, 2023 12:00am Lactulose (1 source) Osmotic Laxative Start: 10-18-2023 Lactulose (Constulose) 10 gram/15 mL Syrup Active GM PO October 18, 2023 12:00am levothyroxine sodium 0.15 mg oral tablet (1 source) l-Thyroxine take 1 tablet by mouth once daily in the morning Magnesium (1 source) magnesium oxide 400 mg oral tablet (5 sources) Start: 08-12-2024 take 1 tablet by mouth once daily magnesium oxide 400 mg Tab take 1 tablet by mouth once daily Start Date: 08/12/24 Status: Ordered Start: 10-18-2023 Magnesium Oxid e Active MG TABLET October 18, 2023 12:00am montelukast 10 mg oral tablet (10 sources) Leukotriene Receptor Antagonist Start: 08-12-2024 take 1 tablet by mouth once daily montelukast 10 mg Tab take 1 tablet by mouth once daily Start Date: 08/12/24 Status: Ordered Start: 10-18-2023 Montelukast Ac tive MG TABLET October 18, 2023 12:00am Polyethylene Glycols (1 source) predniSONE 1 mg oral tablet (1 source) Start: 3 Prednisone Active MG TABLET October 18, 2023 12:00am rivaroxaban 15 mg oral tablet (2 sources) Factor Xa Inhibitor Start: 4 End: 4 take 1 tablet by mouth twice daily Xarelto 15 mg oral tablet 15 mg, Oral, BID, DVT/PE Treatment and CrCl 30 ml/min and above, X 21 day(s), # 42 tab(s), Refills(s) 0 Start Date: 08/12/24 Stop Date: 09/02/24 Status: Ordered tamsulosin hydrochloride 0.4 mg oral capsule (6 sources) alpha-Adrenergic Mae Start: 4 take 1 capsule by mouth twice daily tamsulosin 0.4 mg Cap 0.4 mg = 1 cap(s), TAKE 1 CAPSULE BY MOUTH TWICE DAILY Start Date: 08/12/24 Status: Ordered Start: 10-18-2023 Tamsulosin Act candace MG PO October 18, 2023 12:00am take 1 capsule by [facility] every twenty-four hours Vitamin D3 (1 source) warfarin sodium 5 mg oral tablet (1 source) Vitamin K Antagonist Start: 10-18-2023 Warfarin Active MG TABLET October 18, 2023 12:00am Completed/Discontinued Medications Medication Drug Class(es) Dates Sig (Normalized) Sig (Original) liothyronine sodium 0.005 mg oral tablet (4 sources) l-Triiodothyroni ne Start: 08-12-2024 liothyronine 5 mcg Tab 5 mcg = 1 tab(s), TAKE 4 TABLETS BY MOUTH ON MON, FRI, FRI, AND SUN. - TAKE 3 TABLETS ON FRI, , AND SAT. Start Date: 08/12/24 Status: Ordered pantoprazole 20 mg delayed release oral tablet (6 sources) Proton Pump Inhibitor Start: 08-12-2024 take 1 tablet by mouth once daily Pantoprazole [address] Tab 20 mg = 1 tab(s), take 1 tablet by mouth once daily Start Date: 08/12/24 Status: Ordered Start: 10-18-2023 Pantoprazole A ctive MG PO October 18, 2023 12:00am rosuvastatin calcium 5 mg oral tablet (5 sources) HMG-CoA Reductase Inhibitor Start: 08-12-2024 take 1 tablet by mouth once daily rosuvastatin 5 mg Tab 5 mg = 1 tab(s), take 1 tablet by mouth once daily Start Date: 08/12/24 Status: Ordered Start: 10-18-2023 Rosuvastatin A ctive MG TABLET October 18, 2023 12:00am traZODone hydrochloride 50 mg oral tablet (4 sources) Serotonin Reuptake Inhibitor Start: 08-12-2024 take 1 tablet by mouth at bedtime traZODONE 50 mg Tab 50 mg = 1 tab(s), TAKE 1 TABLET BY MOUTH AT BEDTIME Start Date: 08/12/24 Status: Ordered Problems Active Problems Problem Classification Problem Date Documented Da te Episodic/Chronic Anxiety disorders (1 source) Anxiety disorder, unspecified; Translations: [ANXIETY DISORDER UNSPECIFIED] Onset: 3 Chronic Calculus of urinary tract (1 source) Kidney stone; Translations: [Calculus of kidney] Onset: 4 Episodic Congestive heart failure; nonhypertensive (1 source) Heart [...] 8 Chronic Genitourinary symptoms and ill-defined conditions (4 sources) Frequency of micturition; Translations: [Retention of urine] Onset: 8 Episodic Hemorrhoids (2 sources) Residual hemorrhoidal skin tags; Translations: [Hemorrhoids] Onset: 2 Episodic Hyperplasia of prostate (2 sources) Benign prostatic hypertrophy with outflow obstruction; Translations: [Benign prostatic hyperplasia with lower urinary tract symptoms] Onset: 4 Chronic Hypertension with complications and secondary hypertension (1 [...] [Personal history of colonic polyps] Episodic Other diseases of kidney and ureters (1 source) 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; Translations: [Cyst of kidney, acquired] Onset: 4 Episodic Other diseases of kidney and ureters (1 source) Urinary tract obstruction; Translations: [Other obstructive and reflux uropathy] Onset: 4 Episodic Other gastrointestinal disorders (1 source) 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; Translations: [Irritable bowel syndrome with constipation] Chronic Other gastrointestinal disorders (2 sources) Constipation, unspecified; Translations: [CONSTIPATION UNSPECIFIED] Onset: 2 Episodic Other gastrointestinal disorders (1 source) Constipation; Translations: [...] 09-10-2022 Episodic Other aftercare (3 sources) Other keeper helper (current) drug therapy; Translations: [Other keeper helper (current) drug therapy] Onset: 03-12-2018 Episodic Other aftercare (1 source) nursing home (current) use of anticoagulants; Translations: [LONG-TERM CURRNT USE ANTICOAGULANTS] Onset: 10-31-2022 Episodic Other and unspecified benign neoplasm (1 source) Personal history of colonic polyps; Translations: [PERSONAL HISTORY OF COLONIC POLYPS] Onset: 09-11-2022 Episodic Other fractures (1 source) Collapsed vertebra, not elsewhere classified, lumbar region, subsequent encounter for fracture with routine healing; Translations: [COLLAPSED VERT NEC LUMB SUB RTN HL] Onset: 05-15-2022 Episodic Other lower respiratory disease [...] Test Name Value Interpretation Reference Range Facility Ambulatory Visit Summaryon 1 Ambulatory Visit Summary Ambulatory Visit Summary NIELS MCCULLOUGH JR :1945 Visit Date:08/12/2024 Ambulatory Visit Instructions Your Diagnosis Urinary retention Constipation BPH with urinary obstruction Kidney stone Renal cyst Other obstructive and reflux uropathy Your Care Team Attending Physician - Julien WALLS, Elizabeth Foote Primary Care Physician - THEE MCGUIRE JR, DO This Is Your Medications List Contact prescribing physician if questions or concerns carvedilol (carvedilol 6.25 mg Tab) duloxetine (duloxetine 60 mg oral delayed release capsule) dutasteride (dutasteride 0.5 mg Cap) fexofenadine-pseudoephedri ne (Antihistamine & Nasal Decongestant 60 mg-120 mg oral tablet, extended release) finerenone (Kerendia 20 mg oral tablet) hydrALAZINE (hydrALAZINE 100 mg oral tablet) liothyronine (liothyronine 5 mcg Tab) magnesium oxide (magnesium oxide 400 mg Tab) montelukast (montelukast 10 mg Tab) montelukast (montelukast 10 mg Tab) pantoprazole (Pantoprazole [address] Tab) rivaroxaban (Xarelto 15 mg oral tablet) rosuvastatin (rosuvastatin 5 mg Tab) tamsulosin (tamsulosin 0.4 mg Cap) trazodone (traZODONE 50 mg Tab) Discharge Vitals Heart Rate (Peripheral) 70 Blood Pressure 142/72 Height 180 cm Height 71 in Weight 78 kg Weight 171.6 lb BMI 24.07 What to do next Scheduled Follow-Up Appointments 2023 8:30 AM EST Where: [facility] [address] [id number]- Medications What How Much When Instructions Unchanged carvedilol (carvedilol 6.25 mg Tab) take 1 tablet by mouth every morning Contact prescribing physician if questions or concerns Unchanged duloxetine (duloxetine 60 mg oral delayed release capsule) TAKE 1 CAPSULE AT BEDTIME. Contact prescribing physician if questions or concerns Unchanged dutasteride (dutasteride 0.5 mg Cap) TAKE 1 CAPSULE BY MOUTH EVERY DAY Contact prescribing physician if questions or concerns Unchanged fexofenadine-pseudoephedri ne (Antihistamine & Nasal Decongestant 60 mg-120 mg oral tablet, extended release) By Mouth Every 12 hours Contact prescribing physician if questions or concerns Unchanged finerenone (Kerendia 20 mg oral tablet) By Mouth Every day Contact prescribing physician if questions or concerns Unchanged hydrALAZINE (hydrALAZINE 100 mg oral tablet) 1 Tablets By Mouth 2 times a day Contact prescribing physician if questions or concerns Unchanged liothyronine (liothyronine 5 mcg Tab) 1 Tablets TAKE 4 TABLETS BY MOUTH ON MON, WED, FRI, AND FRI. - TAKE 3 TABLETS ON FRI, , AND SAT. Contact prescribing physician if questions or concerns Unchanged magnesium oxide (magnesium oxide 400 mg Tab) take 1 tablet by mouth once daily Contact prescribing physician if questions or concerns Unchanged montelukast (montelukast 10 mg Tab) take 1 tablet by mouth once daily Contact prescribing physician if questions or concerns Unchanged montelukast (montelukast 10 mg Tab) take 1 tablet by mouth once daily Contact prescribing physician if questions or concerns Unchanged pantoprazole (Pantoprazole [address] Tab) 1 Tablets take 1 tablet by mouth once daily Contact prescribing physician if questions or concerns Unchanged rivaroxaban (Xarelto 15 mg oral tablet) 15 Milligram By Mouth 2 times a day Duration: 21 Days DVT/ PE Treatment and CrCl 30 ml/ min and above Contact prescribing physician if questions or concerns Unchanged rosuvastatin (rosuvastatin 5 mg Tab) 1 Tablets take 1 tablet by mouth once daily Contact prescribing physician if questions or concerns Unchanged tamsulosin (tamsulosin 0.4 mg Cap) 1 Capsules TAKE 1 CAPSULE BY MOUTH TWICE DAILY Contact prescribing physician if questions or concerns Unchanged trazodone (traZODONE 50 mg Tab) 1 Tablets TAKE 1 TABLET BY MOUTH AT BEDTIME Contact prescribing physician if questions or concerns Allergies Keflex (Diarrhea) aspirin (Fatigue) cephalexin (Nausea) codeine (Nausea) erythromycin (Nauseous) indomethacin (Nauseous) minocycline (Rash) penicillin (Nausea) sulfa drugs (Nausea) tetracycline (Nausea) Patient Survey You may receive a survey via text or e-mail asking about your office visit. Please share your experience with us by completing your survey. We appreciate your feedback and thank you for choosing us for your care. Normal [facility] Activated partial thrombopla stin time (aPTT) in platelet poor plasma by coagulation aOrdered By: Michael Amador on 10-18-2023 aPTT Coag (PPP) [Time] 31.2 s 25.1-36.5 [facility] Comment on above: A hematocrit value g reater than 55% may lead to inaccurate results in coagulation testing. Patients having hematocrit values >55% require a special collection tube for coagulation studies. Please contact the laboratory at [phone] for redraw instructions. Alanine aminotransferase [En zymatic activity/volume] in Serum or PlasmaOrdered By: Michael Amador on 10-18-2023 ALT [Catalytic activity/Vol] 9 U/L 7-52 [facility] Albumin [Mass/volume] in Ser um or Plasma by Bromocresol green (BCG) dye binding methoOrdered By: Michael Amador on 10-18-2023 Albumin BCG dye [Mass/Vol] 3.9 g/dL 3.5-5.7 [facility] Alkaline phosphatase [Enzyma tic activity/volume] in Serum or PlasmaOrdered By: Michael Amador on 10-18-2023 ALP [Catalytic activity/Vol] 65 U/L 34-104 [facility] Aspartate aminotransferase [ Enzymatic activity/volume] in Serum or PlasmaOrdered By: Michael Amador on 10-18-2023 AST [Catalytic activity/Vol] 12 U/L 13-39 [facility] Basophils Auto (Bld) [#/Vol] Ordered By: Michael Amador on 10-18-2023 Basophils (Bld) [#/Vol] 0.0 10*3/uL 0.0-0.2 [facility] Basophils/100 WBC Auto (Bld) Ordered By: Michael Amador on 10-18-2023 Basophils/100 WBC (Bld) 0.3 % . [facility] Bilirubin.total [Mass/volume ] in Serum or PlasmaOrdered By: Michael Amador on 10-18-2023 Bilirubin [Mass/Vol] 0.5 mg/dL 0.3-1.0 [facility] Blood Cultureon 10-18-2023 Bacteria identified Cx Nom (Bld) NO GROWTH 5 DAYS PERFORMED BY: [place] [address] PATHOLOGIST [employer]OTTOM WORKER DAVID VERA M.D. [facility] Comment on above: Performed By: #### P TT, CUBLD, CBC, LACTIC, CMP, PT #### [facility] [address] [place] [address] Bacteria identified Cx Nom (Bld) NO GROWTH 5 DAYS PERFORMED BY: [place] [address] PATHOLOGIST [employer]OTTOM WORKER DAVID VERA M.D. [facility] Comment on above: Performed By: #### P TT, CUBLD, CBC, LACTIC, CMP, PT #### [address] sinus wo conon 10-18-2023 CT sinus wo con [facility] [place] [address] [place] [address] CT Scan Report Signed Patient: Niels Mccullough JR MR#: [id number] : 1945 Acct:[id number] Age/Sex: 77 / M ADM Date: 10/18/23 Loc: ER Room: Type: [facility] ER Attending Dr: Copies to: Michael [...] Rachel Briseno M.D.10/18/2023 1:17 PM Dictation Location: [place] [address] Transcribed By: [facility] 10/18/23 131 Dictated By: Rachel Briseno MD 10/18/23 1312 Signed By: 10/18/23 131 Normal [facility] Calcium [Mass/volume] in Ser um or PlasmaOrdered By: Michael Amador on 10-18-2023 Calcium [Mass/Vol] 9.0 mg/dL 8.6-10.3 [facility] Carbon dioxide, total [Moles /volume] in Serum or PlasmaOrdered By: Michael Amador on 10-18-2023 CO2 [Moles/Vol] 23.9 mmol/L 21.0-31.0 [facility] Chloride [Moles/volume] in S beth or PlasmaOrdered By: Michael Amador on 10-18-2023 Chloride [Moles/Vol] 105 mmol/L 98-107 [facility] Complete Blood Count Auto Di ffon 10-18-2023 Basophils (Bld) [#/Vol] 0.0 10*3/uL Normal 0.0-0.2 [facility] Comment on above: Result Comment: PERF ORMED BY: [place] [address] PATHOLOGIST [employer] WORKER DAVID VERA M.D. Performed By: #### P TT, CUBLD, CBC, LACTIC, CMP, PT #### [address] Basophils/100 WBC (Bld) 0.3 % Normal . [facility] Comment on above: Performed By: #### P TT, CUBLD, CBC, LACTIC, CMP, PT #### [address] Eosinophils (Bld) [#/Vol] 0.1 10*3/uL Normal 0.0-0.45 [facility] Comment on above: Performed By: #### P TT, CUBLD, CBC, LACTIC, CMP, PT #### [address] Eosinophils/100 WBC (Bld) 0.9 % Normal . [facility] Comment on above: Performed By: #### P TT, CUBLD, CBC, LACTIC, CMP, PT #### [address] Erythrocyte distribution width (RBC) [Ratio] 14.9 % High 12.0-14.8 [facility] Comment on above: Performed By: #### P TT, CUBLD, CBC, LACTIC, CMP, PT #### [address] Hematocrit (Bld) [Volume fraction] 29.9 % Low 38.8-50.0 [facility] Comment on above: Performed By: #### P TT, CUBLD, CBC, LACTIC, CMP, PT #### [address] Hemoglobin (Bld) [Mass/Vol] 10.2 g/dL Low 13.0-17.0 [facility] Comment on above: Performed By: #### P TT, CUBLD, CBC, LACTIC, CMP, PT #### [address] Lymphocytes (Bld) [#/Vol] 0.9 10*3/uL Low 1.00-4.8 [facility] Comment on above: Performed By: #### P TT, CUBLD, CBC, LACTIC, CMP, PT #### [address] Lymphocytes/100 WBC (Bld) 10.2 % Normal . [facility] Comment on above: Performed By: #### P TT, CUBLD, CBC, LACTIC, CMP, PT #### [address] MCH (RBC) [Entitic mass] 32.4 pg Normal 27.5-35.2 [facility] Comment on above: Performed By: #### P TT, CUBLD, CBC, LACTIC, CMP, PT #### [address] MCV (RBC) [Entitic vol] 94.7 fL Normal 83.5-101 [facility] Comment on above: Performed By: #### P TT, CUBLD, CBC, LACTIC, CMP, PT #### [address] Mean Corpuscular HGB Conc 34.2 g/dL Normal 32.5-35.6 [facility] Comment on above: Performed By: #### P TT, CUBLD, CBC, LACTIC, CMP, PT #### [address] Monocytes (Bld) [#/Vol] 0.9 10*3/uL High 0.0-0.8 [facility] Comment on above: Performed By: #### P TT, CUBLD, CBC, LACTIC, CMP, PT #### [address] Monocytes/100 WBC (Bld) 19.23 % Normal 0.00-20.00 [facility] Comment on above: Performed By: #### P TT, CUBLD, CBC, LACTIC, CMP, PT #### [address] Monocytes/100 WBC (Bld) 9.6 % Normal . [facility] Comment on above: Performed By: #### P TT, CUBLD, CBC, LACTIC, CMP, PT #### [address] Neutrophils (Bld) [#/Vol] 7.2 10*3/uL Normal 1.8-7.7 [facility] Comment on above: Performed By: #### P TT, CUBLD, CBC, LACTIC, CMP, PT #### [address] Neutrophils/100 WBC (Bld) 79.0 % Normal . [facility] Comment on above: Performed By: #### P TT, CUBLD, CBC, LACTIC, CMP, PT #### [address] NRBC% 0.0 /100{WBC} Normal 0-0.5 [facility] Comment on above: Performed By: #### P TT, CUBLD, CBC, LACTIC, CMP, PT #### [address] Platelet mean volume (Bld) [Entitic vol] 7.0 fL Normal 6.6-10.1 [facility] Comment on above: Performed By: #### P TT, CUBLD, CBC, LACTIC, CMP, PT #### [address] Platelets (Bld) [#/Vol] 202 10*3/uL Normal 150-450 [facility] [place] Comment on above: Performed By: #### P TT, CUBLD, CBC, LACTIC, CMP, PT #### [address] RBC (Bld) [#/Vol] 3.15 10*6/uL Low 3.90-5.60 [facility] Comment on above: Performed By: #### P TT, CUBLD, CBC, LACTIC, CMP, PT #### [address] WBC (Bld) [#/Vol] 9.1 10*3/uL Normal 4.1-10.5 [facility] Comment on above: Performed By: #### P TT, CUBLD, CBC, LACTIC, CMP, PT #### [address] Comprehensive Metabolic Pane [place] 10-18-2023 Albumin [Mass/Vol] 3.9 g/dL Normal 3.5-5.7 [facility] Comment on above: Performed By: #### P TT, CUBLD, CBC, LACTIC, CMP, PT #### [facility] [address] Albumin/Globulin [Mass ratio] 1.1 {ratio} Normal [facility] Comment on above: Performed By: #### P TT, CUBLD, CBC, LACTIC, CMP, PT #### [facility] [address] ALP [Catalytic activity/Vol] 65 U/L Normal 34-104 [facility] Comment on above: Performed By: #### P TT, CUBLD, CBC, LACTIC, CMP, PT #### [address] ALT [Catalytic activity/Vol] 9 U/L Normal 7-52 [facility] Comment on above: Performed By: #### P TT, CUBLD, CBC, LACTIC, CMP, PT #### [address] Anion gap [Moles/Vol] 9.8 mmol/L Normal 6.0-15.0 [facility] Comment on above: Performed By: #### P TT, CUBLD, CBC, LACTIC, CMP, PT #### [address] AST [Catalytic activity/Vol] 12 U/L Low 13-39 [facility] Comment on above: Performed By: #### P TT, CUBLD, CBC, LACTIC, CMP, PT #### [facility] [address] [place] [address] [place] Bilirubin [Mass/Vol] 0.5 mg/dL Normal 0.3-1.0 [facility] Comment on above: Performed By: #### P TT, CUBLD, CBC, LACTIC, CMP, PT #### [address] Calcium [Mass/Vol] 9.0 mg/dL Normal 8.6-10.3 [facility] Comment on above: Performed By: #### P TT, CUBLD, CBC, LACTIC, CMP, PT #### [address] [place] [address] [place] Chloride [Moles/Vol] 105 mmol/L Normal 98-107 [facility] Comment on above: Performed By: #### P TT, CUBLD, CBC, LACTIC, CMP, PT #### [facility] [address] CO2 [Moles/Vol] 23.9 mmol/L Normal 21.0-31.0 [facility] Comment on above: Performed By: #### P TT, CUBLD, CBC, LACTIC, CMP, PT #### [facility] [address] Creatinine [Mass/Vol] 1.98 mg/dL High 0.70-1.30 [facility] Comment on above: Performed By: #### P TT, CUBLD, CBC, LACTIC, CMP, PT #### [place] [address] [place] Creatinine Clr Calc Pharmacy 35.87 [facility] Comment on above: Result Comment: PERF ORMED BY: [place] [address] PATHOLOGIST [employer] DAVID VERA M.D. Performed By: #### P TT, CUBLD, CBC, LACTIC, CMP, PT #### [address] GFR/1.73 sq M.predicted MDRD (S/P/Bld) [Vol rate/Area] 34.364 mL/min/{1.73_m2} [facility] Comment on above: Performed By: #### P TT, CUBLD, CBC, LACTIC, CMP, PT #### [facility] [address] [place] [address] [place] Globulin (S) [Mass/Vol] 3.7 g/dL [facility] Comment on above: Performed By: #### P TT, CUBLD, CBC, LACTIC, CMP, PT #### [facility] [address] [place] [address] [place] Glucose [Mass/Vol] 114 mg/dL High 70-100 [facility] Comment on above: Result Comment: [facility] Glucose Reference Range is dependent on time and content of last meal. Glucose of more than 200 mg/dL in a nonstressed, ambulatory subject supports the diagnosis of Diabetes Mellitus. ADA recommended reference range Performed By: #### P TT, CUBLD, CBC, LACTIC, CMP, PT #### [facility] [address] Potassium [Moles/Vol] 3.7 mmol/L Normal 3.5-5.1 [facility] Comment on above: Performed By: #### P TT, CUBLD, CBC, LACTIC, CMP, PT #### [facility] [address] Protein [Mass/Vol] 7.6 g/dL Normal 6.4-8.9 [facility] Comment on above: Performed By: #### P TT, CUBLD, CBC, LACTIC, CMP, PT #### [facility] [address] [place] [address] [place] Sodium [Moles/Vol] 135 mmol/L Low 136-145 [facility] Comment on above: Performed By: #### P TT, CUBLD, CBC, LACTIC, CMP, PT #### [facility] [address] [place] [address] [place] Urea nitrogen [Mass/Vol] 31 mg/dL High 7-25 [facility] Comment on above: Performed By: #### P TT, CUBLD, CBC, LACTIC, CMP, PT #### [facility] [address] [place] [address] [place] Creatinine [Mass/volume] in Serum or PlasmaOrdered By: Michael Amador on 10-18-2023 Creatinine [Mass/Vol] 1.98 mg/dL 0.70-1.30 [facility] ECG 12 lead ECGon 10-18-2023 ECG 12 lead ECG [facility] [address] [place] [address] Electrocardiograph Report Signed Patient: Niels Mccullough JR MR#: [id number] : 1945 Acct:[id number] Age/Sex: 77 / M ADM Date: 10/18/23 Loc: ER Room: Type: [facility] ER Attending Dr: Ordering Provider: Michael Amador [...] By Jayesh Alex MD 10/18/23 1535 Normal [facility] Eosinophils Auto (Bld) [#/Vo l]Ordered By: Michael Amador on 10-18-2023 Eosinophils (Bld) [#/Vol] 0.1 10*3/uL 0.0-0.45 [facility] Eosinophils/100 WBC Auto (Bl d)Ordered By: Michael Amador on 10-18-2023 Eosinophils/100 WBC (Bld) 0.9 % . [facility] Erythrocyte distribution wid th Auto (RBC) [Ratio]Ordered By: Michael Amador on 10-18-2023 Erythrocyte distribution width (RBC) [Ratio] 14.9 % 12.0-14.8 [facility] Globulin Calc (S) [Mass/Vol] Ordered By: Mcihael Amador on 10-18-2023 Globulin (S) [Mass/Vol] 3.7 g/dL [facility] Glucose [Mass/volume] in Ser um or PlasmaOrdered By: Michael Amador on 10-18-2023 Glucose [Mass/Vol] 114 mg/dL 70-100 [facility] Comment on above: ADA recommended refe rence rangeRandom Glucose Reference Range is dependent on time and content of last meal. Glucose of more than 200 mg/dL in a nonstressed, ambulatory subject supports the diagnosis of Diabetes Mellitus. Hematocrit Auto (Bld) [Volum e fraction]Ordered By: Michael Amador on 10-18-2023 Hematocrit (Bld) [Volume fraction] 29.9 % 38.8-50.0 [facility] Hemoglobin [Mass/volume] in BloodOrdered By: Michael Amador on 10-18-2023 Hemoglobin (Bld) [Mass/Vol] 10.2 g/dL 13.0-17.0 [facility] INR in Platelet poor plasma by Coagulation assayOrdered By: Michael Amador on 10-18-2023 INR Coag (PPP) [Relative time] 1.4 {INR} [facility] Comment on above: INR Therapeutic Rang e [...] on 10-18-2023 Lactate [Moles/Vol] 0.7 mmol/L 0.5-2.2 [facility] Lactic Acidon 10-18-2023 Lactate [Moles/Vol] 0.7 mmol/L Normal 0.5-2.2 [facility] Comment on above: Result Comment: PERF ORMED BY: [place] [address] PATHOLOGIST [employer] DAVID VERA M.D. Performed By: #### P TT, CUBLD, CBC, LACTIC, CMP, PT #### [facility] [address] [place] [address] Leukocytes [#/volume] correc alexys for nucleated erythrocytes in Blood by Automated counOrdered By: Michale Amador on 10-18-2023 WBC corrected for nucl RBC Auto (Bld) [#/Vol] 9.1 10*3/uL 4.1-10.5 [facility] Lymphocytes Auto (Bld) [#/Vo l]Ordered By: Michael Amador on 10-18-2023 Lymphocytes (Bld) [#/Vol] 0.9 10*3/uL 1.00-4.8 [facility] Lymphocytes/100 WBC Auto (Bl d)Ordered By: Michael Amador on 10-18-2023 Lymphocytes/100 WBC (Bld) 10.2 % . [facility] MCH Auto (RBC) [Entitic mass ]Ordered By: Michael Amador on 10-18-2023 MCH (RBC) [Entitic mass] 32.4 pg 27.5-35.2 [facility] MCHC Auto (RBC) [Mass/Vol]Or dered By: Michael Amador on 10-18-2023 MCHC (RBC) [Mass/Vol] 34.2 g/dL 32.5-35.6 [facility] MCV Auto (RBC) [Entitic vol] Ordered By: Michael Amador on 10-18-2023 MCV (RBC) [Entitic vol] 94.7 fL 83.5-101 [facility] Monocyte distribution width [Entitic volume] in Blood by AutomatedOrdered By: Michael Amador on 10-18-2023 Monocyte distribution width Auto (Bld) [Entitic vol] 19.23 % 0.00-20.00 [facility] Monocytes Auto (Bld) [#/Vol] Ordered By: Michael Amador on 10-18-2023 Monocytes (Bld) [#/Vol] 0.9 10*3/uL 0.0-0.8 [facility] Monocytes/100 WBC Auto (Bld) Ordered By: Michael Amador on 10-18-2023 Monocytes/100 WBC (Bld) 9.6 % . [facility] Neutrophils Auto (Bld) [#/Vo l]Ordered By: Michael Amador on 10-18-2023 Neutrophils (Bld) [#/Vol] 7.2 10*3/uL 1.8-7.7 [facility] Neutrophils/100 WBC Auto (Bl d)Ordered By: Michael Amador on 10-18-2023 Neutrophils/100 WBC (Bld) 79.0 % . [facility] No Panel InformationOrdered By: Michael Amador on 10-18-2023 Estimated GFR (CKD-EPI) 34.364 mL/Min [facility] Creatinine Clearance (Chem 35.87 [facility] Nucleated erythrocytes [Pres ence] in Blood by Automated countOrdered By: Michael Amador on 10-18-2023 Nucleated RBC Auto Ql (Bld) 0.0 /100{WBC} 0-0.5 [facility] Partial Thromboplastin Timeo n 10-18-2023 aPTT Coag (Bld) [Time] 31.2 s Normal 25.1-36.5 [facility] Comment on above: Result Comment: A he matocrit value greater than 55% may lead to inaccurate results in coagulation testing. Patients having hematocrit values >55% require a special collection tube for coagulation studies. Please contact the laboratory at [phone] for redraw instructions. PERFORMED BY: [place] [address] PATHOLOGIST [employer] DAVID VERA M.D. Performed By: #### P TT, CUBLD, CBC, LACTIC, CMP, PT #### [facility] [address] Platelet mean volume Auto (B ld) [Entitic vol]Ordered By: Michael Amador on 10-18-2023 Platelet mean volume (Bld) [Entitic vol] 7.0 fL 6.6-10.1 [facility] Platelets Auto (Bld) [#/Vol] Ordered By: Michael Amador on 10-18-2023 Platelets (Bld) [#/Vol] 202 10*3/uL 150-450 [facility] Potassium [Moles/volume] in Serum or PlasmaOrdered By: Michael Amador on 10-18-2023 Potassium [Moles/Vol] 3.7 mmol/L 3.5-5.1 [facility] Protein [Mass/volume] in Ser um or PlasmaOrdered By: Michael Amador on 10-18-2023 Protein [Mass/Vol] 7.6 g/dL 6.4-8.9 [facility] Prothrombin Time INRon 10-18 INR Coag (PPP) [Relative time] 1.4 {INR} Normal [facility] Comment on above: Result Comment: INR Therapeutic [...] TT, CUBLD, CBC, LACTIC, CMP, PT #### [facility] [address] [place] [id number] [facility] PT Coag (PPP) [Time] 16.6 s High 9.0-12.9 [facility] Comment on above: Result Comment: A he matocrit value greater than 55% may lead to inaccurate results in coagulation testing. Patients having hematocrit values >55% require a special collection tube for coagulation studies. Please contact the laboratory at [phone] for redraw instructions. Performed By: #### P TT, CUBLD, CBC, LACTIC, CMP, PT #### [facility] [address] [place] [id number] [facility] Prothrombin time (PT)Ordered By: Michael Amador on 10-18-2023 PT Coag (PPP) [Time] 16.6 s 9.0-12.9 [facility] Comment on above: A hematocrit value g reater than 55% may lead to inaccurate results in coagulation testing. Patients having hematocrit values >55% require a special collection tube for coagulation studies. Please contact the laboratory at [phone] for redraw instructions. RBC Auto (Bld) [#/Vol]Ordere d By: Michael Amador on 10-18-2023 RBC (Bld) [#/Vol] 3.15 10*6/uL 3.90-5.60 [facility] Serum or plasma albumin/glob ulin mass ratioOrdered By: Michael Amador on 10-18-2023 Albumin/Globulin [Mass ratio] 1.1 {ratio} [facility] Serum or plasma anion gap de terminationOrdered By: Michael Amador on 10-18-2023 Anion gap [Moles/Vol] 9.8 mmol/L 6.0-15.0 [facility] Sodium [Moles/volume] in Ser um or PlasmaOrdered By: Michael Amador on 10-18-2023 Sodium [Moles/Vol] 135 mmol/L 136-145 [facility] Superficial Wound Cultureon 10-18-2023 Superficial Wound [...] RESISTANT TO ALL B-LACTAM DRUGS. PERFORMED BY: [place] [address] PATHOLOGIST [employer] WORK[employer] DAVID VERA M.D. [facility] Comment on above: Performed By: #### C USUP #### [address] Urea nitrogen [Mass/volume] in Serum or PlasmaOrdered By: Michael Amador on 10-18-2023 Urea nitrogen [Mass/Vol] 31 mg/dL 7-25 [facility] WBC Auto (Bld) [#/Vol]Ordere d By: Michael Amador on 10-18-2023 WBC (Bld) [#/Vol] 9.1 10*3/uL 4.1-10.5 [facility] BNPon 10-30-2022 Natriuretic peptide B (Bld) [Mass/Vol] 4309.0 pg/mL Critically high <=1,800.0 [facility] Comment on above: Performed By: #### C BC #### [facility] [address] [place] [address] Dr. Kelsea Guillermo CBC AUTO DIFFon 10-30-2022 BASO # 0.0 103/ul Normal 0.0-0.1 [facility] Comment on above: Performed By: #### C BC #### [facility] [address] [place] [address] Dr. Kelsea Guillermo Basophils/100 WBC (Bld) 0.4 % Normal 0.2-2.0 [facility] Comment on above: Performed By: #### C BC #### [facility] [address] [place] [address] Dr. Kelsea Guillermo EO # 0.5 103/ul Normal 0.0-0.7 [facility] Comment on above: Performed By: #### C BC #### [facility] [address] [place] [address] Dr. Kelsea Guillermo Eosinophils/100 WBC (Bld) 6.4 % Normal 0.9-7.0 [facility] Comment on above: Performed By: #### C BC #### [facility] [address] [place] [address] Dr. Kelsea Guillermo Erythrocyte distribution width (RBC) [Ratio] 13.3 % Normal 11.0-15.0 [facility] Comment on above: Performed By: #### C BC #### [facility] [address] [place] [address] Dr. Kelsea Guillermo Hematocrit (Bld) [Volume fraction] 33.9 % Critically low 42.0-54.0 [facility] Comment on above: Performed By: #### C BC #### [facility] [address] [place] [address] Dr. Kelsea Guillermo Hemoglobin (Bld) [Mass/Vol] 11.6 g/dL Critically low 14.0-18.0 [facility] Comment on above: Performed By: #### C BC #### [facility] [address] [place] [address] Dr. Kelsea Guillermo IG # 0.02 10e3/ul Normal 0.00-0.03 [facility] Comment on above: Performed By: #### C BC #### [facility] [address] [place] [address] Dr. Kelsea Guillermo IG % 0.3 % Normal 0.0-0.5 [facility] Comment on above: Performed By: #### C BC #### [facility] [address] [place] [address] Dr. Kelsea Guillermo LYMPH # 1.0 103/ul Critically low 1.2-3.8 [facility] Comment on above: Performed By: #### C BC #### [facility] [address] [place] [address] Dr. Kelsea Guillermo Lymphocytes/100 WBC (Bld) 14.0 % Critically low 20.5-60.0 [facility] Comment on above: Performed By: #### C BC #### [facility] [address] [place] [address] Dr. Kelsea Guillermo MANUAL DIFF REQ NO Normal [facility] Comment on above: Performed By: #### C BC #### [facility] [address] [place] [address] Dr. Kelsea Guillermo MCH (RBC) [Entitic mass] 32.5 pg Normal 25.9-34.0 [facility] Comment on above: Performed By: #### C BC #### [facility] [address] [place] [address] Dr. Kelsea Guillermo MCHC (RBC) [Mass/Vol] 34.2 g/dL Normal 29.9-35.2 [facility] Comment on above: Performed By: #### C BC #### [facility] [address] [place] [address] Dr. Kelsea Guillermo MCV (RBC) [Entitic vol] 95.0 fL Critically high 80.0-94.0 [facility] Comment on above: Performed By: #### C BC #### [facility] [address] [place] [address] Dr. Kelsea Guillermo MONO # 0.6 103/ul Normal 0.3-0.8 [facility] Comment on above: Performed By: #### C BC #### [facility] [address] [place] [address] Dr. Kelsea Guillermo Monocytes/100 WBC (Bld) 8.7 % Normal 1.7-12.0 [facility] Comment on above: Performed By: #### C BC #### [facility] [address] [place] [address] Dr. Kelsea Guillermo NEUT # 5.0 103/ul Normal 1.4-6.5 [facility] Comment on above: Performed By: #### C BC #### [facility] [address] [place] [address] Dr. Kelsea Guillermo Neutrophils/100 WBC (Bld) 70.2 % Normal 43.0-75.0 [facility] Comment on above: Performed By: #### C BC #### [facility] [address] [place] [address] Dr. Kelsea Guillermo Platelet mean volume (Bld) [Entitic vol] 9.1 fL Critically low 9.5-13.5 [facility] Comment on above: Performed By: #### C BC #### [facility] [address] [place] [address] Dr. Kelsea Guillermo PLT 171 103/ul Normal 150-450 [facility] Comment on above: Performed By: #### C BC #### [facility] [address] [place] [address] Dr. Kelsea Guillermo RBC 3.57 106/ul Critically low 4.70-6.10 [facility] Comment on above: Performed By: #### C BC #### [facility] [address] [place] [address] Dr. Kelsea Guillermo WBC 7.2 103/ul Normal 4.0-11.0 [facility] Comment on above: Performed By: #### C BC #### [facility] [address] [place] [address] HEAD WO CONon [...] canal. results were called by Dr. Truong Mccann to Dr. Tennille Jorge At 10/30/2022 8:26 PM EST. Electronically authenticated by: Truong MCCANN Date: 2022-10-30 21:14 Normal [facility] Covid-19 PCR (CVDTB)on SARS-CoV-2 (COVID-19) RNA SHALA+probe Ql (Unsp spec) Not detected Normal NOT DETECTED [facility] Comment on above: Result Comment: When diagnostic [...] for this test is supported by the [place] of Health and Human Service's declaration that [...] used). Performed By: #### C VDTB #### [facility] [address] [place] [address] Dr. Kelsea Guillermo INFLUENZA A AND B AGon 10-30 [facility] SEE BELOW Normal [facility] Comment on above: Result Comment: Nega tive for Flu A protein angiten. Infection due to Flu A cannot be ruled out. Flu A angiten in the sample may be below the detection limit of the test. Performed By: #### C BC #### [facility] [address] [place] [address] Dr. Kelsea Guillermo [facility] SEE BELOW Normal [facility] Comment on above: Result Comment: Nega tive for Flu B protein antigen. Infection due to Flu B cannot be ruled out. Flu B antigen in the sample may be below the detection limit of the test. Performed By: #### C BC #### [facility] [address] [place] [address] Dr. Kelsea Guillermo INFLUENZA A AG Negative Normal NEGATIVE SEE COMMENT [facility] Comment on above: Performed By: #### C BC #### [facility] [address] [place] [address] Dr. Kelsea Guillermo INFLUENZA B AG Negative Normal NEGATIVE SEE COMMENT [facility] Comment on above: Performed By: #### C BC #### [facility] [address] [place] [address] Dr. Kelsea Guillermo PROF 14(COMP METB)on 023 Albumin [Mass/Vol] 3.7 g/dL Normal 3.4-5.0 [facility] Comment on above: Performed By: #### C BC #### [facility] [address] [place] [address] Dr. Kelsea Guillermo Albumin/Globulin [Mass ratio] 0.9 {ratio} Normal [facility] Comment on above: Performed By: #### C BC #### [facility] [address] [place] [address] Dr. Kelsea Guillermo ALP [Catalytic activity/Vol] 110 U/L Normal 46-116 [facility] Comment on above: Performed By: #### C BC #### [facility] [address] [place] [address] Dr. Kelsea Guillermo ALT [Catalytic activity/Vol] 12 U/L Critically low 16-63 [facility] Comment on above: Performed By: #### C BC #### [facility] [address] [place] [address] Dr. Kelsea Guillermo Anion gap [Moles/Vol] 12.3 mmol/L Normal Th [facility] Comment on above: Performed By: #### C BC #### [facility] [address] [place] [address] Dr. Kelsea Guillermo AST [Catalytic activity/Vol] 18 U/L Normal 15-37 [facility] Comment on above: Performed By: #### C BC #### [facility] [address] [place] [address] Dr. Kelsea Guillermo Bilirubin [Mass/Vol] 0.3 mg/dL Normal 0.2-1.0 [facility] Comment on above: Performed By: #### C BC #### [facility] [address] [place] [address] Dr. Kelsea Guillermo Calcium [Mass/Vol] 8.4 mg/dL Critically low 8.5-10.1 [facility] Comment on above: Performed By: #### C BC #### [facility] [address] [place] [address] Dr. Kelsea Guillermo Chloride [Moles/Vol] 100 mmol/L Normal 98-107 [facility] Comment on above: Performed By: #### C BC #### [facility] [address] [place] [address] Dr. Kelsea Guillermo CO2 [Moles/Vol] 26.7 mmol/L Normal 21.0-32.0 [facility] Comment on above: Performed By: #### C BC #### [facility] [address] [address] [address] Kelsea Guillermo Creatinine [Mass/Vol] 2.01 mg/dL Critically high 0.70-1.30 [facility] Comment on above: Performed By: #### C BC #### [facility] [address] [address] [address] Kelsea Guillermo EGFR-AF SWAZI 39 mL/min/1.73m2 Critically low >=60 [facility] Comment on above: Performed By: #### C BC #### [facility] [address] [address] [address] Kelsea Guillermo EGFR-NON AF SWAZI 32 mL/min/1.73m2 Critically low >=60 [facility] Comment on above: Performed By: #### C BC #### [facility] [address] [address] [address] Kelsea Guillermo Globulin (S) [Mass/Vol] 3.9 g/dL Normal [facility] Comment on above: Performed By: #### C BC #### [facility] [address] [address] [address] Kelsea Guillermo Glucose [Mass/Vol] 108 mg/dL Critically high 74-106 T [facility] Comment on above: Performed By: #### C BC #### [facility] [address] [address] [address] Kelsea Guillermo Potassium [Moles/Vol] 3.0 mmol/L Critically low 3.5-5.1 [facility] Comment on above: Performed By: #### C BC #### [facility] [address] [address] [address] Kelsea Guillermo Protein [Mass/Vol] 7.6 g/dL Normal 6.4-8.2 [facility] Comment on above: Performed By: #### C BC #### [facility] [address] [address] [address] Kelsea Guillermo Sodium [Moles/Vol] 136 mmol/L Normal 136-145 [facility] Comment on above: Performed By: #### C BC #### [facility] [address] [place] [address] Dr. Kelsea Guillermo Urea nitrogen [Mass/Vol] 24.0 mg/dL Critically high 7.0-18.0 [facility] Comment on above: Performed By: #### C BC #### [facility] [address] [place] [address] Dr. Kelsea Guillermo Urea nitrogen/Creatinine [Mass ratio] 11.9 mg/mg Normal [facility] Comment on above: Performed By: #### C BC #### [facility] [address] [place] [address] Dr. Kelsea Guillermo PROTIMEon 10-30-2022 INR Coag (PPP) [Relative time] 2.35 {INR} Normal [facility] Comment on above: Performed By: #### P T, PTT #### [facility] [address] [place] [address] Dr. Kelsea Guillermo INR GUIDELINES SEE BELOW Normal [facility] Comment on above: Result Comment: AGUILA RED INR: 2.0 - 3.0 CONDITIONS NOT LISTED BELOW 2.5 - 3.5 FOR PROSTHETIC HEART VALVE REPLACEMENT 2.5 - 3.5 RECURRENT THROMBOSIS Performed By: #### P T, PTT #### [facility] [address] [place] [address] Dr. Kelsea Guillermo PT Coag (PPP) [Time] 24.0 s Critically high 9.0-11.6 [facility] Comment on above: Performed By: #### P T, PTT #### [facility] [address] [place] [address] Dr. Kelsea Guillermo PTTon 10-30-2022 aPTT Coag (Bld) [Time] 47.8 s Critically high 22.3-36. 2 [facility] Comment on above: Performed By: #### P T, PTT #### [facility] [address] [place] [address] Dr. Kelsea Guillermo TROPONIN, HIGH SENSITIVITYon 10-30-2022 HSTROP 21.8 pg/mL Normal 4.0-76.1 [facility] Comment on above: Result Comment: CUT- OFF POINTS HAVE BEEN ESTABLISHED BASED ON THE FOURTH UNIVERSAL DEFINITIONS OF MYOCARDIAL INFARCTION. THE UPPER REFERENCE LIMIT (URL) OF TROPONIN, DEFINED THE 99TH PERCENTILE OF cTnI DISTRIBUTION IN A REFERENCE POPULATION, HAS BEEN CONFIRMED THE DECISION THRESHOLD FOR DE DIAGNOSIS. Performed By: #### C BC #### [facility] [address] [place] [address] Dr. Kelsea Guillermo XR CHEST 1 Von [...] MIKA MARI Date: 2022-10-30 20:10 Normal [facility] PROTIMEon 09-10-2022 INR Coag (PPP) [Relative time] 2.04 {INR} Normal [facility] Comment on above: Performed By: #### C BC #### [facility] [address] [place] [address] Dr. Kelsea Guillermo INR GUIDELINES SEE BELOW Normal [facility] Comment on above: Result Comment: AGUILA RED INR: 2.0 - 3.0 CONDITIONS NOT LISTED BELOW 2.5 - 3.5 FOR PROSTHETIC HEART VALVE REPLACEMENT 2.5 - 3.5 RECURRENT THROMBOSIS Performed By: #### C BC #### [facility] [address] [place] [address] Dr. Kelsea Guillermo PT Coag (PPP) [Time] 21.0 s Critically high 9.0-11.6 [facility] Comment on above: Performed By: #### C BC #### [facility] [address] [place] [address] Dr. Kelsea Guillermo CARDIAC ISIDRO 3-6on 2 CK [Catalytic activity/Vol] 62 U/L Normal 39-308 [facility] Comment on above: Performed By: #### C MREP #### [facility] [address], [place] [address] Dr. Kelsea Guillermo CK.MB [Mass/Vol] 1.28 ng/mL Normal <=3.60 [facility] Comment on above: Performed By: #### C MREP #### [facility] [address], [place] [address] Dr. Kelsea Guillermo HSTROP 19.5 pg/mL Normal 4.0-76.1 [facility] Comment on above: Result Comment: CUT- OFF POINTS HAVE BEEN ESTABLISHED BASED ON THE FOURTH UNIVERSAL DEFINITIONS OF MYOCARDIAL INFARCTION. THE UPPER REFERENCE LIMIT (URL) OF TROPONIN, DEFINED THE 99TH PERCENTILE OF cTnI DISTRIBUTION IN A REFERENCE POPULATION, HAS BEEN CONFIRMED THE DECISION THRESHOLD FOR DE DIAGNOSIS. Performed By: #### C MREP #### [facility] [address], [place] [address] ABD/PELVIS WO CONon [...] SARY RIGGS Date: 2022-05-13 22:51 Normal [facility] LACTATE/LACTIC ACIDon 2021 Lactate [Moles/Vol] 0.5 mmol/L Normal 0.4-1.9 [facility] Comment on above: Performed By: #### L ACT #### [facility] [address] [place] [address] Dr. Kelsea Guillermo CARDIAC ISIDRO ADMITon 022 CK [Catalytic activity/Vol] 71 U/L Normal 39-308 [facility] Comment on above: Performed By: #### C ALICIA, LARISADM #### [facility] [address] [place] [address] Dr. Kelsea Guillermo CK.MB [Mass/Vol] 1.26 ng/mL Normal <=3.60 [facility] Comment on above: Performed By: #### C ALICIA, LARISADM #### [facility] [address] [place] [address] Dr. Kelsea Guillermo HSTROP 17.5 pg/mL Normal 4.0-76.1 [facility] Comment on above: Result Comment: CUT- OFF POINTS HAVE BEEN ESTABLISHED BASED ON THE FOURTH UNIVERSAL DEFINITIONS OF MYOCARDIAL INFARCTION. THE UPPER REFERENCE LIMIT (URL) OF TROPONIN, DEFINED THE 99TH PERCENTILE OF cTnI DISTRIBUTION IN A REFERENCE POPULATION, HAS BEEN CONFIRMED THE DECISION THRESHOLD FOR DE DIAGNOSIS. Performed By: #### C ALICIA, CMADM #### [facility] [address] [place] [address] Dr. Kelsea Guillermo ROLAND 115 ng/mL Critically high 16-96 [facility] Comment on above: Performed By: #### C ALICIA, CMADM #### [facility] [address] [place] [address] Dr. Kelsea Guillermo CBC AUTO DIFFon 05-13-2022 BASO # 0.0 103/ul Normal 0.0-0.1 [facility] Comment on above: Performed By: #### C BC #### [facility] [address] [place] [address] Dr. Kelsea Guillermo Basophils/100 WBC (Bld) 0.5 % Normal 0.2-2.0 [facility] Comment on above: Performed By: #### C BC #### [facility] [address] [place] [address] Dr. Kelsea Guillermo EO # 0.4 103/ul Normal 0.0-0.7 [facility] Comment on above: Performed By: #### C BC #### [facility] [address] [place] [address] Dr. Kelsea Guillermo Eosinophils/100 WBC (Bld) 5.3 % Normal 0.9-7.0 [facility] Comment on above: Performed By: #### C BC #### [facility] [address] [place] [address] Dr. Kelsea Guillermo Erythrocyte distribution width (RBC) [Ratio] 14.0 % Normal 11.0-15.0 [facility] Comment on above: Performed By: #### C BC #### [facility] [address] [place] [address] Dr. Kelsea Guillermo Hematocrit (Bld) [Volume fraction] 36.7 % Critically low 42.0-54.0 [facility] Comment on above: Performed By: #### C BC #### [facility] [address] [place] [address] Dr. Kelsea Guillermo Hemoglobin (Bld) [Mass/Vol] 11.8 g/dL Critically low 14.0-18.0 [facility] Comment on above: Performed By: #### C BC #### [facility] [address] [place] [address] Dr. Kelsea Guillermo IG # 0.09 10e3/ul Critically high 0.00-0.03 [facility] Comment on above: Performed By: #### C BC #### [facility] [address] [place] [address] Dr. Kelsea Guillermo IG % 1.2 % Critically high 0.0-0.5 [facility] Comment on above: Performed By: #### C BC #### [facility] [address] [place] [address] Dr. Kelsea Guillermo LYMPH # 1.6 103/ul Normal 1.2-3.8 [facility] Comment on above: Performed By: #### C BC #### [facility] [address] [place] [address] Dr. Kelsea Guillermo Lymphocytes/100 WBC (Bld) 21.9 % Normal 20.5-60.0 [facility] Comment on above: Performed By: #### C BC #### [facility] [address] [place] [address] Dr. Kelsea Guillermo MANUAL DIFF REQ NO Normal [facility] Comment on above: Performed By: #### C BC #### [facility] [address] [place] [address] Dr. Kelsea Guillermo MCH (RBC) [Entitic mass] 31.7 pg Normal 25.9-34.0 [facility] Comment on above: Performed By: #### C BC #### [facility] [address] [place] [address] Dr. Kelsea Guillermo MCHC (RBC) [Mass/Vol] 32.2 g/dL Normal 29.9-35.2 [facility] Comment on above: Performed By: #### C BC #### [facility] [address] [place] [address] Dr. Kelsea Guillermo MCV (RBC) [Entitic vol] 98.7 fL Critically high 80.0-94.0 [facility] Comment on above: Performed By: #### C BC #### [facility] [address] [place] [address] Dr. Kelsea Guillermo MONO # 0.7 103/ul Normal 0.3-0.8 [facility] Comment on above: Performed By: #### C BC #### [facility] [address] [place] [address] Dr. Kelsea Guillermo Monocytes/100 WBC (Bld) 9.4 % Normal 1.7-12.0 [facility] Comment on above: Performed By: #### C BC #### [facility] [address] [place] [address] Dr. Kelsea Guillermo NEUT # 4.5 103/ul Normal 1.4-6.5 [facility] Comment on above: Performed By: #### C BC #### [facility] [address] [place] [address] Dr. Kelsea Guillermo Neutrophils/100 WBC (Bld) 61.7 % Normal 43.0-75.0 [facility] Comment on above: Performed By: #### C BC #### [facility] [address] [place] [address] Dr. Kelsea Guillermo Platelet mean volume (Bld) [Entitic vol] 9.3 fL Critically low 9.5-13.5 [facility] Comment on above: Performed By: #### C BC #### [facility] [address] [place] [address] Dr. Kelsea Guillermo PLT 207 103/ul Normal 150-450 [facility] Comment on above: Performed By: #### C BC #### [facility] [address] [place] [address] Dr. Kelsea Guillermo RBC 3.72 106/ul Critically low 4.70-6.10 [facility] Comment on above: Performed By: #### C BC #### [facility] [address] [place] [address] Dr. Kelsea Guillermo WBC 7.4 103/ul Normal 4.0-11.0 [facility] Comment on above: Performed By: #### C BC #### [facility] [address] [place] [address] Dr. Kelsea Guillermo ER URINE PROFILEon 2 Bilirubin Ql (U) Negative Normal NEGATIVE [facility] Comment on above: Performed By: #### C BC #### [facility] [address] [place] [address] Dr. Kelsea Guillermo Clarity (U) CLEAR Normal CLEAR [facility] Comment on above: Performed By: #### C BC #### [facility] [address] [place] [address] Dr. Kelsea Guillermo Color (U) LT. YELLOW Normal YELLOW [facility] Comment on above: Performed By: #### C BC #### [facility] [address] [place] [address] Dr. Kelsea Guillermo ERUAHD A micrscopic examina tion will be performed if indicated. Normal [facility] Comment on above: Performed By: #### C BC #### [facility] [address] [place] [address] Dr. Kelsea Guillermo Glucose Ql (U) Negative Normal NEGATIVE [facility] Comment on above: Performed By: #### C BC #### [facility] [address] [place] [address] Dr. Kelsea Guillermo Hemoglobin Ql (U) Negative Normal NEGATIVE [facility] Comment on above: Performed By: #### C BC #### [facility] [address] [place] [address] Dr. Kelsea Guillermo Ketones Ql (U) Negative Normal NEGATIVE [facility] Comment on above: Performed By: #### C BC #### [facility] [address] [place] [address] Dr. Kelsea Guillermo LEUKOCYTES Negative Normal NEGATIVE [facility] Comment on above: Performed By: #### C BC #### [facility] [address] [place] [address] Dr. Kelsea Guillermo Nitrite Ql (U) Negative Normal NEGATIVE [facility] Comment on above: Performed By: #### C BC #### [facility] [address] [place] [address] Dr. Kelsea Guillermo pH (U) 5.5 [pH] Normal 5-9 [facility] Comment on above: Performed By: #### C BC #### [facility] [address] [place] [address] Dr. Kelsea Guillermo Protein (U) [Mass/Vol] 30 mg/dL Abnormal NEGAT CANDACE/ TRACE [facility] Comment on above: Performed By: #### C BC #### [facility] [address] [place] [address] Dr. Kelsea Guillermo SPEC GRAVITY 1.020 Normal 1.005-<=1. 025 [facility] Comment on above: Performed By: #### C BC #### [facility] [address] [place] [address] Dr. Kelsea Guillermo UR MICRO IND NOT INDICATED Normal [facility] Comment on above: Performed By: #### C BC #### [facility] [address] [place] [address] Dr. Kelsea Guillermo Urobilinogen Qn (U) 0.2 {Jennifer'U}/dL Normal 0.2 - 1. 0 [facility] Comment on above: Performed By: #### C BC #### [facility] [address] [place] [address] Dr. Kelsea Guillermo LACTATE/LACTIC ACIDon 2021 Lactate [Moles/Vol] 0.8 mmol/L Normal 0.4-1.9 [facility] Comment on above: Performed By: #### C BC #### [facility] [address] [place] [address] Dr. Kelsea Guillermo PROF 14(COMP METB)on 022 Albumin [Mass/Vol] 3.7 g/dL Normal 3.4-5.0 [facility] Comment on above: Performed By: #### C MARK VARGAS #### [facility] [address] [place] [address] Dr. Kelsea Guillermo Albumin/Globulin [Mass ratio] 0.9 {ratio} Normal [facility] Comment on above: Performed By: #### C MARK VARGAS #### [facility] [address] [place] [address] Dr. Kelsea Guillermo ALP [Catalytic activity/Vol] 133 U/L Critically high 46-116 [facility] Comment on above: Performed By: #### C MARK VARGAS #### [facility] [address] [place] [address] Dr. Kelsea Guillermo ALT [Catalytic activity/Vol] 18 U/L Normal 16-63 [facility] Comment on above: Performed By: #### C MP, CMADM #### [facility] [address] [place] [address] [address] Kelsea Guillermo Anion gap [Moles/Vol] 12.5 mmol/L Normal [facility] Comment on above: Performed By: #### C MP, CMADM #### [facility] [address] [place] [address] [address] Kelsea Guillermo AST [Catalytic activity/Vol] 14 U/L Critically low 15-37 [facility] Comment on above: Performed By: #### C MP, CMADM #### [facility] [address] [place] [address] [address] Kelsea Guillermo Bilirubin [Mass/Vol] 0.3 mg/dL Normal 0.2-1.0 [facility] Comment on above: Performed By: #### C MP, CMADM #### [facility] [address] [place] [address] [address] Kelsea Guillermo Calcium [Mass/Vol] 9.0 mg/dL Normal 8.5-10.1 [facility] Comment on above: Performed By: #### C MP, CMADM #### [facility] [address] [place] [address] [address] Kelsea Guillermo Chloride [Moles/Vol] 102 mmol/L Normal 98-107 [facility] Comment on above: Performed By: #### C MP, CMADM #### [facility] [address] [place] [address] [address] Kelsea Guillermo CO2 [Moles/Vol] 27.7 mmol/L Normal 21.0-32.0 [facility] Comment on above: Performed By: #### C MP, CMADM #### [facility] [address] [place] [address] [address] Kelsea Guillermo Creatinine [Mass/Vol] 1.83 mg/dL Critically high 0.70-1.30 [facility] Comment on above: Performed By: #### C MP, CMADM #### [facility] [address] [place] [address] [address] Kelsea Guillermo EGFR-AF SWAZI 44 mL/min/1.73m2 Critically low >=60 [facility] Comment on above: Performed By: #### C MP, CMADM #### [facility] [address] [place] [address] [address] Kelsea Guillermo EGFR-NON AF SWAZI 36 mL/min/1.73m2 Critically low >=60 [facility] Comment on above: Performed By: #### C MP, CMADM #### [facility] [address] [place] [address] Dr. Kelsea Guillermo Globulin (S) [Mass/Vol] 4.2 g/dL Normal [facility] Comment on above: Performed By: #### C MP, CMADM #### [facility] [address] [place] [address] Dr. Kelsea Guillermo Glucose [Mass/Vol] 101 mg/dL Normal 74-106 [facility] Comment on above: Performed By: #### C ALICIA, CMADM #### [facility] [address] [place] [address] Dr. Kelsea Guillermo Potassium [Moles/Vol] 4.2 mmol/L Normal 3.5-5.1 [facility] Comment on above: Performed By: #### C ALICIA, CMADM #### [facility] [address] [place] [address] Dr. Kelsea Guillermo Protein [Mass/Vol] 7.9 g/dL Normal 6.4-8.2 [facility] Comment on above: Performed By: #### C MP, CMADM #### [facility] [address] [place] [address] Dr. Kelsea Guillermo Sodium [Moles/Vol] 138 mmol/L Normal 136-145 [facility] Comment on above: Performed By: #### C MP, CMADM #### [facility] [address] [place] [address] Dr. Kelsea Guillermo Urea nitrogen [Mass/Vol] 24.0 mg/dL Critically high 7.0-18.0 [facility] Comment on above: Performed By: #### C MP, CMADM #### [facility] [address] [place] [address] Dr. Kelsea Guillermo Urea nitrogen/Creatinine [Mass ratio] 13.1 mg/mg Normal [facility] Comment on above: Performed By: #### C ALICIA, LARISA #### [facility] [address] [place] [id number] Kelsea Guillermo XR CHEST 1 Von [...] DEVENDRA GUTIERREZ Date: 2022-05-13 20:48 Normal [facility] HIP LEFT 1 OR 2 VWS WITH PEL VISon 02-15-2022 HIP LEFT 1 OR 2 VWS WITH PELVIS [facility] Department of Radiology [address] [place] [id number] Patient Name: NIELS MCCULLOUGH : 1945 Sex: M Age: Race: White Pt. Location: 84 Patient Status: D Ordered Date: 02/15/2022 2:40:00 PM Completed Date: 02/15/2022 02:38 PM Requesting Provider: VINEET GARZA Attending Provider: VINEET GARZA Report Copy To: Signs & Symptoms: Z96.649 [...] arthroplasty. Electronically signed: Mika Bolaños. Transcribed by: [email or web address], User Resident: Electronically Signed by: MIKA BOLAÑOS @ 02/18/2022 11:21 AM Normal [facility] Comment on above: Order Comment: evalu ate for Aspiration BASIC METABOLIC PANELon 04- Calcium [Mass/Vol] 7.7 mg/dL Low 8.6-10.3 [facility] Comment on above: Order Comment: No: D o not add to previous draw Performed By: #### 0 0071 ####[facility] [place] [address], [facility] Chloride [Moles/Vol] 106 mmol/L Normal 98-107 [facility] Comment on above: Order Comment: No: D o not add to previous draw Performed By: #### 0 0071 ####[facility] [place] [address], [place] CO2 [Moles/Vol] 24 mmol/L Normal 21-31 [facility] Comment on above: Order Comment: No: D o not add to previous draw Performed By: #### 0 0071 ####[facility] [place] [address], [facility] Creatinine [Mass/Vol] 1.56 mg/dL High 0.70-1.30 [facility] Comment on above: Order Comment: No: D o not add to previous draw Performed By: #### 0 0071 ####[facility] [place] [address], [facility] eGFR- 53 ml/min/1.73sq m Abnormal >60 [facility] Comment on above: Order Comment: No: D o not add to previous draw Result Comment: Calc ulation may not be valid for patients over 70 years Performed By: #### 0 0071 ####[facility] [place] [address], [facility] eGFR- non- 44 ml/min/1.73sq m Abnormal >60 [facility] Comment on above: Order Comment: No: D o not add to previous draw Result Comment: Calc ulation may not be valid for patients over 70 years Performed By: #### 0 0071 ####[facility] [place] [address], [facility] Glucose [Mass/Vol] 104 mg/dL High 70-100 [facility] Comment on above: Order Comment: No: D o not add to previous draw Performed By: #### 0 0071 ####[facility] [place] [address], [facility] Potassium [Moles/Vol] 3.8 mmol/L Normal 3.5-5.1 [facility] Comment on above: Order Comment: No: D o not add to previous draw Performed By: #### 0 0071 ####[facility] [id number], [place] Sodium [Moles/Vol] 137 mmol/L Normal 136-145 [facility] Comment on above: Order Comment: No: D o not add to previous draw Performed By: #### 0 0071 ####[facility] [place] [address], [facility] Urea nitrogen [Mass/Vol] 27 mg/dL High 7-25 [facility] Comment on above: Order Comment: No: D o not add to previous draw Performed By: #### 0 0071 ####[facility] [id number], [facility] CBC COMPLETE BLOOD COUNTon 0 - Erythrocyte distribution width (RBC) [Ratio] 14.5 % Normal 11.5-15.0 [facility] Comment on above: Order Comment: LEFT HIP SCREW HEAD TISSUE Performed By: #### 3 0338 #### [facility] [address] [place] [address], [facility] Hematocrit (Bld) [Volume fraction] 24.7 % Low 39.0-50.0 [facility] Comment on above: Order Comment: LEFT HIP SCREW HEAD TISSUE Performed By: #### 3 0338 #### [facility] [address] [place] [address], [facility] Hemoglobin (Bld) [Mass/Vol] 8.1 g/dL Low 13.0-17.0 [facility] Comment on above: Order Comment: LEFT HIP SCREW HEAD TISSUE Performed By: #### 3 0338 #### [facility] [address] [place] [address], [facility] MCH (RBC) [Entitic mass] 32.5 pg Normal 27.0-33.0 [facility] Comment on above: Order Comment: LEFT HIP SCREW HEAD TISSUE Performed By: #### 3 0338 #### [facility] [address] [place] [address], [place] MCHC (RBC) [Mass/Vol] 32.8 g/dL Normal 32.0-35.0 [facility] Comment on above: Order Comment: LEFT HIP SCREW HEAD TISSUE Performed By: #### 3 0338 #### [facility] [address] [place] [address], [facility] MCV (RBC) [Entitic vol] 99.2 fL High 82.0-98.0 [facility] Comment on above: Order Comment: LEFT HIP SCREW HEAD TISSUE Performed By: #### 3 0338 #### [facility] [address] [place] [address], [facility] Nucleated RBC/100 WBC (Bld) [Ratio] 0 % Normal 0-0 [facility] Comment on above: Order Comment: LEFT HIP SCREW HEAD TISSUE Performed By: #### 3 0338 #### [facility] [address] [place] [address], [facility] PLAT CNT 177 10*3/uL Normal 150-400 [facility] Comment on above: Order Comment: LEFT HIP SCREW HEAD TISSUE Performed By: #### 3 0338 #### [facility] [address] [place] [address], [facility] RBC (Bld) [#/Vol] 2.49 10*6/uL Low 4.20-5.70 [facility] Comment on above: Order Comment: LEFT HIP SCREW HEAD TISSUE Performed By: #### 3 0338 #### [facility] [address] [place] [address], [facility] WBC (Bld) [#/Vol] 10.19 10*3/uL Normal 4.00-10.60 [facility] Comment on above: Order Comment: LEFT HIP SCREW HEAD TISSUE Performed By: #### 3 0338 #### [facility] [address] [place] [address], [facility] PROTHROMBIN TIMEon 2 INR Coag (PPP) [Relative time] 1.25 {INR} High 0.91-1.16 [facility] Comment on above: Order Comment: LEFT HIP FLUID #2 Result Comment: [facility] P RECOMMENDED INR FOR WARFARIN THERAPY --------- [...] 1995;108:[id number]. Performed By: #### 3 0318 #### [facility] [address] PT Coag (PPP) [Time] 15.7 s High 12.3-14.8 [facility] Comment on above: Order Comment: LEFT HIP FLUID #2 Result Comment: ALL RESULTS MUST BE INTERPRETED WITH RESPECT TO BLOOD DRAWING ARTIFACT OR DILUTION ERROR OF ANTICOAGULANT AT THE TIME OF SAMPLING. Performed By: #### 3 0318 #### [facility]. [address] BASIC METABOLIC PANELon 04- Calcium [Mass/Vol] 7.9 mg/dL Low 8.6-10.3 [facility] Comment on above: Order Comment: evalu ate for Aspiration Performed By: #### 0 0071 ####[facility] [place] [address], [facility] Chloride [Moles/Vol] 104 mmol/L Normal 98-107 [facility] Comment on above: Order Comment: evalu ate for Aspiration Performed By: #### 0 0071 ####[facility] [place] [address], [facility] CO2 [Moles/Vol] 27 mmol/L Normal 21-31 [facility] Comment on above: Order Comment: evalu ate for Aspiration Performed By: #### 0 0071 ####[facility] [place] [address], [facility] Creatinine [Mass/Vol] 1.78 mg/dL High 0.70-1.30 [facility] Comment on above: Order Comment: evalu ate for Aspiration Performed By: #### 0 0071 ####[facility] [place] [address], [facility] eGFR- 45 ml/min/1.73sq m Abnormal >60 [facility] Comment on above: Order Comment: evalu ate for Aspiration Result Comment: Calc ulation may not be valid for patients over 70 years Performed By: #### 0 0071 ####[facility] [place] [address], [facility] eGFR- non- 37 ml/min/1.73sq m Abnormal >60 [facility] Comment on above: Order Comment: evalu ate for Aspiration Result Comment: Calc ulation may not be valid for patients over 70 years Performed By: #### 0 0071 ####[facility] [place] [address], [facility] Glucose [Mass/Vol] 115 mg/dL High 70-100 [facility] Comment on above: Order Comment: evalu ate for Aspiration Performed By: #### 0 0071 ####[facility] [place] [address], [facility] Potassium [Moles/Vol] 3.6 mmol/L Normal 3.5-5.1 [facility] Comment on above: Order Comment: evalu ate for Aspiration Performed By: #### 0 0071 ####[facility] [place] [address], [facility] Sodium [Moles/Vol] 136 mmol/L Normal 136-145 [facility] Comment on above: Order Comment: evalu ate for Aspiration Performed By: #### 0 0071 ####[facility] [address] Urea nitrogen [Mass/Vol] 35 mg/dL High 7-25 [facility] Comment on above: Order Comment: evalu ate for Aspiration Performed By: #### 0 0071 ####[facility] [place] [address], [facility] CBC W/DIFFon 02-06-2022 ABS IMM GRANS 0.1 10*3/uL Normal 0.0-0.2 [facility] Comment on above: Order Comment: No: D o not add to previous draw Performed By: #### 5 0103 #### [facility] [address] [place] [address], [facility] ABS NEUTROPHILS 9.3 10*3/uL High 1.6-7.6 [facility] Comment on above: Order Comment: No: D o not add to previous draw Performed By: #### 5 0103 #### [facility] [address] [place] [address], [facility] Basophils (Bld) [#/Vol] 0.0 10*3/uL Normal 0.0-0.2 [facility] Comment on above: Order Comment: No: D o not add to previous draw Performed By: #### 5 0103 #### [facility] [address] [facility] [place] [address], [facility] Basophils/100 WBC (Bld) 0.3 % Normal 0.0-1.0 [facility] Comment on above: Order Comment: No: D o not add to previous draw Performed By: #### 5 0103 #### [facility] [address] [facility] [place] [address], [facility] Eosinophils (Bld) [#/Vol] 0.1 10*3/uL Normal 0.0-0.5 [facility] Comment on above: Order Comment: No: D o not add to previous draw Performed By: #### 5 0103 #### [facility] [address] [place] [address], [facility] Eosinophils/100 WBC (Bld) 0.4 % Normal 0.0-6.0 [facility] Comment on above: Order Comment: No: D o not add to previous draw Performed By: #### 5 0103 #### [facility] [address] [place] [address], [facility] Erythrocyte distribution width (RBC) [Ratio] 14.6 % Normal 11.5-15.0 [facility] Comment on above: Order Comment: No: D o not add to previous draw Performed By: #### 5 0103 #### [facility] [address] [place] [address], [facility] Hematocrit (Bld) [Volume fraction] 25.3 % Low 39.0-50.0 [facility] Comment on above: Order Comment: No: D o not add to previous draw Performed By: #### 5 0103 #### [facility] [address] [place] [address], [facility] Hemoglobin (Bld) [Mass/Vol] 8.3 g/dL Low 13.0-17.0 [facility] Comment on above: Order Comment: No: D o not add to previous draw Performed By: #### 5 0103 #### [facility] [address] [facility] [place] [address], [facility] IMMATURE GRANS 0.6 % Normal 0.0-1.0 [facility] Comment on above: Order Comment: No: D o not add to previous draw Performed By: #### 5 0103 #### [facility] [address] [facility] [place] [address], [facility] Lymphocytes (Bld) [#/Vol] 1.3 10*3/uL Normal 1.2-4.0 [facility] Comment on above: Order Comment: No: D o not add to previous draw Performed By: #### 5 0103 #### [facility] [address] Lymphocytes/100 WBC (Bld) 10.8 % Low 20.0-45.0 [facility] Comment on above: Order Comment: No: D o not add to previous draw Performed By: #### 5 0103 #### [facility] [address] [place] [address], [facility] MCH (RBC) [Entitic mass] 31.8 pg Normal 27.0-33.0 [facility] Comment on above: Order Comment: No: D o not add to previous draw Performed By: #### 5 0103 #### [facility] [address] MCHC (RBC) [Mass/Vol] 32.8 g/dL Normal 32.0-35.0 [facility] Comment on above: Order Comment: No: D o not add to previous draw Performed By: #### 5 0103 #### [facility] [address] [place] [address], [facility] MCV (RBC) [Entitic vol] 96.9 fL Normal 82.0-98.0 [facility] Comment on above: Order Comment: No: D o not add to previous draw Performed By: #### 5 0103 #### [facility] [address] [place] [address], [facility] Monocytes (Bld) [#/Vol] 1.1 10*3/uL High 0.1-1.0 [facility] Comment on above: Order Comment: No: D o not add to previous draw Performed By: #### 5 0103 #### [facility] [address] [place] [address], [facility] MONOS 9.1 % Normal 5.0-12.0 [facility] Comment on above: Order Comment: No: D o not add to previous draw Performed By: #### 5 3 #### [facility] [address] [place] [address], [facility] Neutrophils/100 WBC (Bld) 78.8 % High 40.0-72.0 [facility] Comment on above: Order Comment: No: D o not add to previous draw Performed By: #### 5 0103 #### [facility] [address] [place] [address], [facility] Nucleated RBC/100 WBC (Bld) [Ratio] 0 % Normal 0-0 [facility] Comment on above: Order Comment: No: D o not add to previous draw Performed By: #### 5 0103 #### [facility] [address] [place] [address], [facility] PLAT CNT 182 10*3/uL Normal 150-400 [facility] Comment on above: Order Comment: No: D o not add to previous draw Performed By: #### 5 0103 #### [facility] [address] [place] [address], [facility] RBC (Bld) [#/Vol] 2.61 10*6/uL Low 4.20-5.70 [facility] Comment on above: Order Comment: No: D o not add to previous draw Performed By: #### 5 0103 #### [facility] [address] [place] [id number], [place] WBC (Bld) [#/Vol] 11.78 10*3/uL High 4.00-10.60 [facility] Comment on above: Order Comment: No: D o not add to previous draw Performed By: #### 5 0103 #### [facility] [address] [place] [address], [facility] PROTHROMBIN TIMEon 2 INR Coag (PPP) [Relative time] 1.18 {INR} High 0.91-1.16 [facility] Comment on above: Order Comment: No: [...] CHEST 1995;108:231S-246S. Performed By: #### 5 6101 ####[facility].[address] PT Coag (PPP) [Time] 15.1 s High 12.3-14.8 [facility] Comment on above: Order Comment: No: D o not add to previous draw Result Comment: ALL RESULTS MUST BE INTERPRETED WITH RESPECT TO BLOOD DRAWING ARTIFACT OR DILUTION ERROR OF ANTICOAGULANT AT THE TIME OF SAMPLING. Performed By: #### 5 6101 ####[facility] [place] [address], [facility] UA,MICROSCOPIC REQUIREDon Appearance (U) SL CLOUDY Abnormal CLEAR [facility] Comment on above: Order Comment: No: D o not add to previous draw Performed By: #### 9 0150 #### [facility] [address] [place] [address], [facility] Bilirubin Ql (U) Negative Normal NEGATIVE [facility] Comment on above: Order Comment: No: D o not add to previous draw Performed By: #### 9 0150 #### [facility] [address] [place] [address], [facility] Color (U) YELLOW Normal YELLOW [facility] Comment on above: Order Comment: No: D o not add to previous draw Performed By: #### 9 0150 #### [facility] [address] [place] [address], [facility] EPIS NONE SEEN Normal FEW,OCC,NO NE SEEN [facility] Comment on above: Order Comment: No: D o not add to previous draw Performed By: #### 9 0150 #### [facility] [address] [place] [address], [place] Glucose Ql (U) Negative Normal NEGATIVE [facility] Comment on above: Order Comment: No: D o not add to previous draw Performed By: #### 9 0150 #### [facility] [address] [place] [address], [place] Hemoglobin Ql (U) SMALL Abnormal NEGATIVE [facility] Comment on above: Order Comment: No: D o not add to previous draw Performed By: #### 9 0150 #### [facility] [address] [place] [address], [place] KETONE Negative Normal NEGATIVE [facility] Comment on above: Order Comment: No: D o not add to previous draw Performed By: #### 9 0150 #### [facility] [address] [place] [address], [place] LEUK JALYN Negative Normal NEGATIVE [facility] Comment on above: Order Comment: No: D o not add to previous draw Performed By: #### 9 0150 #### [facility] [address] [place] [address], [place] Nitrite Ql (U) Negative Normal NEGATIVE [facility] Comment on above: Order Comment: No: D o not add to previous draw Performed By: #### 9 0150 #### [facility] [address] [place] [address], [place] pH (U) 5.0 [pH] Normal 5.0-8.0 [facility] Comment on above: Order Comment: No: D o not add to previous draw Performed By: #### 9 0150 #### [facility] [address] [facility]. [address] Protein Ql (U) 30 mg/dL Abnormal NEGATIVE [facility] Comment on above: Order Comment: No: D o not add to previous draw Performed By: #### 9 0150 #### [facility] [address] [facility]. [address] RBC 3-5 Abnormal NONE SEEN [facility] Comment on above: Order Comment: No: D o not add to previous draw Performed By: #### 9 0150 #### [facility] [address] SPEC GRAV 1.016 Normal 1.015-1.02 0 [facility] Comment on above: Order Comment: No: D o not add to previous draw Performed By: #### 9 0150 #### [facility] [address] WBC UA 0-2 Abnormal NONE SEEN [facility] Comment on above: Order Comment: No: D o not add to previous draw Performed By: #### 9 0150 #### [facility] [address] APTTon 02-05-2022 aPTT Coag (Bld) [Time] 34.1 s Normal 25.0-35.0 [facility] Comment on above: Order Comment: if [...] THIS PURPOSE. Performed By: #### 5 7307, 08303 ####[facility] [place] [address], [facility] BASIC METABOLIC PANELon 04- Calcium [Mass/Vol] 8.2 mg/dL Low 8.6-10.3 [facility] Comment on above: Order Comment: evalu ate for Aspiration Performed By: #### 0 0071 ####[facility] [place] [address], [facility] Chloride [Moles/Vol] 108 mmol/L High 98-107 [facility] Comment on above: Order Comment: evalu ate for Aspiration Performed By: #### 0 0071 ####[facility] [place] [address], [facility] CO2 [Moles/Vol] 22 mmol/L Normal 21-31 [facility] Comment on above: Order Comment: evalu ate for Aspiration Performed By: #### 0 0071 ####[facility] [place] [address], [facility] Creatinine [Mass/Vol] 1.64 mg/dL High 0.70-1.30 [facility] Comment on above: Order Comment: evalu ate for Aspiration Performed By: #### 0 0071 ####[facility] [place] [address], [facility] eGFR- 50 ml/min/1.73sq m Abnormal >60 [facility] Comment on above: Order Comment: evalu ate for Aspiration Result Comment: Calc ulation may not be valid for patients over 70 years Performed By: #### 0 0071 ####[facility] [place] [address], [facility] eGFR- non- 41 ml/min/1.73sq m Abnormal >60 [facility] Comment on above: Order Comment: evalu ate for Aspiration Result Comment: Calc ulation may not be valid for patients over 70 years Performed By: #### 0 0071 ####[facility] [place] [address], [place] Glucose [Mass/Vol] 145 mg/dL High 70-100 [facility] Comment on above: Order Comment: evalu ate for Aspiration Performed By: #### 0 0071 ####[facility] [place] [address], [place] Potassium [Moles/Vol] 3.9 mmol/L Normal 3.5-5.1 [facility] Comment on above: Order Comment: evalu ate for Aspiration Performed By: #### 0 0071 ####[facility] [id number], [place] Sodium [Moles/Vol] 137 mmol/L Normal 136-145 [facility] Comment on above: Order Comment: evalu ate for Aspiration Performed By: #### 0 0071 ####[facility] [place] [address], [place] Urea nitrogen [Mass/Vol] 27 mg/dL High 7-25 [facility] Comment on above: Order Comment: evalu ate for Aspiration Performed By: #### 0 0071 ####[facility] Operative Reporton 2 Operative Report MR#: [id number] I [facility] Pt. Name: Niels Mccullough Jr Room #: [id number] Discharge Date: Birthdate: 1945 OPERATIVE REPORT DATE OF SURGERY: 02/04/2022 SURGEON: Vineet Garza M.D. PRIMARY CARE PHYSICIAN: Thee Mcguire D.O. ASSISTANTS: 1. Paulino Elliott M.D., resident orthopedic surgery. 2. first lamin [...] f (more content not included)... Normal [facility] PROTHROMBIN TIMEon 2 INR Coag (PPP) [Relative time] 1.27 {INR} High 0.91-1.16 [facility] Comment on above: Order Comment: if [...] CHEST 1995;108:231S-246S. Performed By: #### 5 7307, 62660 ####[facility] [address] PT Coag (PPP) [Time] 15.9 s High 12.3-14.8 [facility] Comment on above: Order Comment: if no t already doneNo: Do not add to previous draw Result Comment: ALL RESULTS MUST BE INTERPRETED WITH RESPECT TO BLOOD DRAWING ARTIFACT OR DILUTION ERROR OF ANTICOAGULANT AT THE TIME OF SAMPLING. Performed By: #### 5 7307, 26791 ####[facility] [address] *ANAEROBIC CULTUREon 022 *ANAEROBIC CULTURE Clinical Report: (D) Specimen/Source: TISSUE/INTRAOP SPEC Collected: 02/04/2022 17:29 Status: Final Last Updated: 02/09/2022 07:31 (1) LEFT HIP SCREW HEAD TISSUE CULT RES (Final) No Anaerobes Isolated 5 Days Normal [facility] Comment on above: Order Comment: No: D o not add to previous draw Performed By: #### 9 0150 #### [facility] 3000 [facility]. [address] *ANAEROBIC CULTURE Clinical Report: (D) Specimen/Source: TISSUE/INTRAOP SPEC Collected: 02/04/2022 17:28 Status: Final Last Updated: 02/09/2022 07:31 (1) LEFT HIP NAIL HEAD CULT RES (Final) No Anaerobes Isolated 5 Days Normal [facility] Comment on above: Order Comment: LEFT HIP SCREW HEAD TISSUE Performed By: #### 3 0338 #### [facility] [address] [place] [address], [facility] *ANAEROBIC CULTURE Clinical Report: (D) Specimen/Source: FLUID/INTRAOP SPEC Collected: 02/04/2022 17:28 Status: Final Last Updated: 02/09/2022 07:31 (1) LEFT HIP FLUID #2 CULT RES (Final) No Anaerobes Isolated 5 Days Normal [facility] Comment on above: Order Comment: LEFT HIP SCREW HEAD TISSUE Performed By: #### 3 0338 #### [facility] [address] [facility] [place] [address], [facility] *ANAEROBIC CULTURE Clinical Report: (D) Specimen/Source: FLUID/INTRAOP SPEC Collected: 02/04/2022 17:26 Status: Final Last Updated: 02/09/2022 07:31 (1) LEFT HIP FLUID #1 CULT RES (Final) No Anaerobes Isolated 5 Days Normal [facility] Comment on above: Order Comment: LEFT HIP FLUID #2 Performed By: #### 3 0318 #### [facility] [address] [place] [address], [facility] *ANAEROBIC CULTURE Clinical Report: (D) Specimen/Source: TISSUE/INTRAOP SPEC Collected: 02/04/2022 17:25 Status: Final Last Updated: 02/09/2022 07:31 (1) LEFT HIP CULT RES (Final) No Anaerobes Isolated 5 Days Normal [facility] Comment on above: Order Comment: No: D o not add to previous draw Performed By: #### 9 0150 #### [facility] [address] [place] [address], [facility] *BODY FLUID CULTUREon 2021 *BODY FLUID CULTURE Clinical Report: (D) Specimen/Source: FLUID/INTRAOP SPEC Collected: 02/04/2022 17:28 Status: Final Last Updated: 02/09/2022 06:34 (1) LEFT HIP FLUID #2 GRAM (Final) Moderate Polys No Bacteria Seen CULT RES (Final) No Growth Day 5 Normal [facility] Comment on above: Order Comment: LEFT HIP FLUID #2 Performed By: #### 3 0318 #### [facility] [address] [place], [place] [id number] [place] [address] *BODY FLUID CULTURE Clinical Report: (D) Specimen/Source: FLUID/INTRAOP SPEC Collected: 02/04/2022 17:26 Status: Final Last Updated: 02/09/2022 06:34 (1) LEFT HIP FLUID #1 GRAM (Final) Moderate Polys No Bacteria Seen CULT RES (Final) No Growth Day 5 Normal [facility] Comment on above: Order Comment: LEFT HIP SCREW HEAD TISSUE Performed By: #### 3 0338 #### [facility] [address] *FUNGAL CULTUREon 02-04-2022 *FUNGAL CULTURE Clinical Report: (D) Specimen/Source: TISSUE/INTRAOP SPEC Collected: 02/04/2022 17:29 Status: Final Last Updated: 04/10/2022 08:13 (1) LEFT HIP SCREW HEAD TISSUE FS (Final) No Yeast or Fungal Elements Seen CULT RES (Final) Culture negative for fungus Normal [facility] Comment on above: Order Comment: LEFT HIP SCREW HEAD TISSUE Performed By: #### 3 0338 #### [facility] [address] *FUNGAL CULTURE Clinical Report: (D) Specimen/Source: FLUID/INTRAOP SPEC Collected: 02/04/2022 17:28 Status: Final Last Updated: 04/10/2022 08:13 (1) LEFT HIP FLUID #2 FS (Final) No Yeast or Fungal Elements Seen CULT RES (Final) Culture negative for fungus Normal [facility] Comment on above: Order Comment: LEFT HIP FLUID #2 Performed By: #### 3 0323 #### [facility] [address] [place] [address], [facility] *FUNGAL CULTURE Clinical Report: (D) Specimen/Source: TISSUE/INTRAOP SPEC Collected: 02/04/2022 17:28 Status: Final Last Updated: 04/10/2022 08:13 (1) LEFT HIP NAIL HEAD FS (Final) No Yeast or Fungal Elements Seen CULT RES (Final) Culture negative for fungus Normal [facility] Comment on above: Order Comment: LEFT HIP SCREW HEAD TISSUE Performed By: #### 3 0338 #### [facility] [address] *FUNGAL CULTURE Clinical Report: (D) Specimen/Source: FLUID/INTRAOP SPEC Collected: 02/04/2022 17:26 Status: Final Last Updated: 04/10/2022 08:13 (1) LEFT HIP FLUID #1 FS (Final) No Yeast or Fungal Elements Seen CULT RES (Final) Culture negative for fungus Normal [facility] Comment on above: Order Comment: LEFT HIP FLUID #2 Performed By: #### 3 0318 #### [facility] [address] *FUNGAL CULTURE Clinical Report: (D) Specimen/Source: TISSUE/INTRAOP SPEC Collected: 02/04/2022 17:25 Status: Final Last Updated: 04/10/2022 08:13 (1) LEFT HIP FS (Final) No Yeast or Fungal Elements Seen CULT RES (Final) Culture negative for fungus Normal [facility] Comment on above: Order Comment: LEFT HIP Performed By: #### 3 0323 #### [facility] [address] [place], [place] [id number] [place] [address] *TISSUE CULTUREon 02-04-2022 *TISSUE CULTURE Clinical Report: (D) Specimen/Source: TISSUE/INTRAOP SPEC Collected: 02/04/2022 17:29 Status: Final Last Updated: 02/09/2022 06:34 (1) LEFT HIP SCREW HEAD TISSUE GRAM (Final) Moderate Polys No Bacteria Seen CULT RES (Final) No Growth Day 5 Normal [facility] Comment on above: Order Comment: LEFT HIP SCREW HEAD TISSUE Performed By: #### 3 0338 #### [facility] [address] [place], [place] [id number] [place] [address] *TISSUE CULTURE Clinical Report: (D) Specimen/Source: TISSUE/INTRAOP SPEC Collected: 02/04/2022 17:28 Status: Final Last Updated: 02/09/2022 06:33 (1) LEFT HIP NAIL HEAD GRAM (Final) Moderate Polys No Bacteria Seen CULT RES (Final) No Growth Day 5 Normal [facility] Comment on above: Order Comment: LEFT HIP FLUID #2 Performed By: #### 3 0318 #### [facility] [address] *TISSUE CULTURE Clinical Report: (D) Specimen/Source: TISSUE/INTRAOP SPEC Collected: 02/04/2022 17:25 Status: Final Last Updated: 02/09/2022 06:33 (1) LEFT HIP GRAM (Final) Many Polys No Bacteria Seen CULT RES (Final) No Growth Day 5 Normal [facility] Comment on above: Order Comment: LEFT HIP SCREW HEAD TISSUE Performed By: #### 3 0338 #### [facility] [address] APTTon 02-04-2022 aPTT Coag (Bld) [Time] 43.4 s High 25.0-35.0 [facility] Comment on above: Order Comment: No: [...] THIS PURPOSE. Performed By: #### 5 7307, 74043 ####[facility] [address] ARTERIAL BLOOD GAS W/COOXon 02-04-2022 BASE EXCESS -2 mmol/L Normal -2-3 [facility] Comment on above: Performed By: #### 3 0318 #### [facility] [address] [facility] [place] [address], [facility] COHB 1.5 % Normal 0.0-1.5 [facility] Comment on above: Performed By: #### 3 0318 #### [facility] [address] [place] [address], [place] DELIVERY SYSTEMS OR VENT Normal [facility] Comment on above: Performed By: #### 3 0318 #### [facility] [address] [place] [address], [place] HCO3 (Bld) [Moles/Vol] 22 mmol/L Normal 21-28 [facility] Comment on above: Performed By: #### 3 0318 #### [facility] [address] [place] [address], [place] METHB 0.6 % Normal 0.0-1.5 [facility] Comment on above: Performed By: #### 3 8 #### [facility] [address] [place] [address], [place] MODALITY OR VENT Normal [facility] Comment on above: Performed By: #### 3 0318 #### [facility] [address] [place] [address], [place] Oxygen (Bld) [Partial pressure] 203 mm[Hg] Critically high 83-108 [facility] Comment on above: Performed By: #### 3 0318 #### [facility] [address] [place] [address], [place] Oxygen saturation in Blood 97.8 % High 94.0-97.0 [facility] Comment on above: Performed By: #### 3 0318 #### [facility] [address] [place] [address], [place] PCO2 35 mmHg Normal 35-45 [facility] Comment on above: Performed By: #### 3 0318 #### [facility] [address] [place] [address], [place] pH (Bld) 7.41 [pH] Normal 7.35-7.45 [facility] Comment on above: Performed By: #### 3 8 #### [facility] [address] [place] [address], [facility] THB 10.0 g/dL Low 12.0-16.3 [facility] Comment on above: Performed By: #### 3 0318 #### [facility] [address] [place] [address], [facility] BASIC METABOLIC PANELon 01-25 Calcium [Mass/Vol] 8.6 mg/dL Normal 8.6-10.3 [facility] Comment on above: Order Comment: evalu ate for Aspiration Performed By: #### 1 0070, 00699, 11284 ####[facility] [place] [address], [facility] Chloride [Moles/Vol] 106 mmol/L Normal 98-107 [facility] Comment on above: Order Comment: evalu ate for Aspiration Performed By: #### 1 0070, 52995, 82160 ####[facility] [place] [address], [facility] CO2 [Moles/Vol] 25 mmol/L Normal 21-31 [facility] Comment on above: Order Comment: evalu ate for Aspiration Performed By: #### 1 0070, 48661, 47727 ####[facility] [place] [address], [facility] Creatinine [Mass/Vol] 1.52 mg/dL High 0.70-1.30 [facility] Comment on above: Order Comment: evalu ate for Aspiration Performed By: #### 1 0070, 86040, 16924 ####[facility] [place] [address], [facility] eGFR- 54 ml/min/1.73sq m Abnormal >60 [facility] Comment on above: Order Comment: evalu ate for Aspiration Result Comment: Calc ulation may not be valid for patients over 70 years Performed By: #### 1 0070, 03531, 39913 ####[facility] [place] [address], [facility] eGFR- non- 45 ml/min/1.73sq m Abnormal >60 [facility] Comment on above: Order Comment: evalu ate for Aspiration Result Comment: Calc ulation may not be valid for patients over 70 years Performed By: #### 1 0070, 96673, 12784 ####[facility] [place] [address], [facility] Glucose [Mass/Vol] 98 mg/dL Normal 70-100 [facility] Comment on above: Order Comment: evalu ate for Aspiration Performed By: #### 1 0070, 56222, 79380 ####[facility] [facility] [place] [address], [facility] Potassium [Moles/Vol] 3.7 mmol/L Normal 3.5-5.1 [facility] Comment on above: Order Comment: evalu ate for Aspiration Performed By: #### 1 0070, 11540, 17175 ####[facility] [place] [address], [facility] Sodium [Moles/Vol] 139 mmol/L Normal 136-145 [facility] Comment on above: Order Comment: evalu ate for Aspiration Performed By: #### 1 0070, 61735, 48066 ####[facility] [place] [address], [facility] Urea nitrogen [Mass/Vol] 25 mg/dL Normal 7-25 [facility] Comment on above: Order Comment: evalu ate for Aspiration Performed By: #### 1 0070, 25199, 90690 ####[facility] [id number], [facility] CALCIUM IONIZED CBGLon 02-04 IONIZED CALCIUM 1.11 mmol/L Low 1.13-1.32 [facility] Comment on above: Performed By: #### 3 0318 #### [facility] [address] CBC COMPLETE BLOOD COUNTon 0 - Erythrocyte distribution width (RBC) [Ratio] 14.4 % Normal 11.5-15.0 [facility] Comment on above: Order Comment: LEFT HIP SCREW HEAD TISSUE Performed By: #### 3 0338 #### [facility] [address] [place] [address], [facility] Hematocrit (Bld) [Volume fraction] 34.1 % Low 39.0-50.0 [facility] Comment on above: Order Comment: LEFT HIP SCREW HEAD TISSUE Performed By: #### 3 0338 #### [facility] [address] [place] [address], [facility] Hemoglobin (Bld) [Mass/Vol] 11.3 g/dL Low 13.0-17.0 [facility] Comment on above: Order Comment: LEFT HIP SCREW HEAD TISSUE Performed By: #### 3 0338 #### [facility] [address] [place] [id number], [facility] MCH (RBC) [Entitic mass] 32.1 pg Normal 27.0-33.0 [facility] Comment on above: Order Comment: LEFT HIP SCREW HEAD TISSUE Performed By: #### 3 0338 #### [facility] [address] [place] [address], [facility] MCHC (RBC) [Mass/Vol] 33.1 g/dL Normal 32.0-35.0 [facility] Comment on above: Order Comment: LEFT HIP SCREW HEAD TISSUE Performed By: #### 3 0338 #### [facility] [address] [place] [address], [facility] MCV (RBC) [Entitic vol] 96.9 fL Normal 82.0-98.0 [facility] Comment on above: Order Comment: LEFT HIP SCREW HEAD TISSUE Performed By: #### 3 0338 #### [facility] [address] [place] [id number], [facility] Nucleated RBC/100 WBC (Bld) [Ratio] 0 % Normal 0-0 [facility] Comment on above: Order Comment: LEFT HIP SCREW HEAD TISSUE Performed By: #### 3 0338 #### [facility] [address] [place] [address], [facility] PLAT CNT 213 10*3/uL Normal 150-400 [facility] Comment on above: Order Comment: LEFT HIP SCREW HEAD TISSUE Performed By: #### 3 0338 #### [facility] [address] [facility] [place] [address], [facility] RBC (Bld) [#/Vol] 3.52 10*6/uL Low 4.20-5.70 [facility] Comment on above: Order Comment: LEFT HIP SCREW HEAD TISSUE Performed By: #### 3 0338 #### [facility] [address] [facility] [place] [address], [facility] WBC (Bld) [#/Vol] 8.15 10*3/uL Normal 4.00-10.60 [facility] Comment on above: Order Comment: LEFT HIP SCREW HEAD TISSUE Performed By: #### 3 0338 #### [facility] [address] [place] [address], [facility] MAGNESIUM BLOODon 02-04-2022 Magnesium [Mass/Vol] 2.2 mg/dL Normal 1.9-2.7 [facility] Comment on above: Order Comment: evalu ate for Aspiration Performed By: #### 1 0, 40206, 01903 ####[facility] [place] [address], [facility] PHOSPHORUS BLOODon 2 Phosphate [Mass/Vol] 3.0 mg/dL Normal 2.5-5.0 [facility] Comment on above: Order Comment: No: D o not add to previous draw Performed By: #### 1 0, 14308, 02946 ####[facility] [place] [address], [facility] POC GLUCOSE LABon 02-04-2022 Glucose [Mass/Vol] 99 mg/dL Normal 70-100 [facility] Comment on above: Performed By: #### 8 5499 ####[facility] POC SARS COV2 IDon 2 SARS-CoV-2 (COVID-19) RNA SHALA+probe Ql (Unsp spec) Negative Normal NEGATIVE [facility] Comment on above: Result Comment: ID [...] Accreditation. Performed By: #### 3 1921 #### [facility] [address] PORTABLE HIP LEFT 1 OR 2 VWS WITH PELVISon 02-04-2022 PORTABLE HIP LEFT 1 OR 2 VWS WITH PELVIS [facility] Department of Radiology [address] [place] [id number] Patient Name: NIELS MCCULLOUGH : 1945 Sex: M Age: Race: White Pt. Location: [id number] Patient Status: I Ordered Date: 02/04/2022 8:00:00 PM Completed Date: 02/04/2022 09:21 PM Requesting Provider: PAULINO ELLIOTT Attending Provider: MICHAEL MALONE Report Copy To: [...] fracture Electronically signed: Nohemi Graves. Transcribed by: [email or web address], User Resident: Electronically Signed by: NOHEMI GRAVES @ 02/04/2022 09:32 PM Normal [facility] Comment on above: Order Comment: evalu ate for Aspiration POTASSIUM WHOLE BLOOD CBGLon 02-04-2022 Potassium [Moles/Vol] 3.5 mmol/L Normal 3.4-5.2 [facility] Comment on above: Performed By: #### 3 0318 #### [place] [address] [place] [address], [facility] PROTHROMBIN TIMEon INR Coag (PPP) [Relative time] 1.70 {INR} High 0.91-1.16 [facility] Comment on above: Order Comment: No: D o not add to previous draw Result Comment: [facility] P RECOMMENDED INR FOR WARFARIN THERAPY --------- [...] CHEST 1995;108:231S-246S. Performed By: #### 5 7307, 92346 ####[facility] [place] [address], [facility] PT Coag (PPP) [Time] 20.0 s High 12.3-14.8 [facility] Comment on above: Order Comment: No: D o not add to previous draw Result Comment: ALL RESULTS MUST BE INTERPRETED WITH RESPECT TO BLOOD DRAWING ARTIFACT OR DILUTION ERROR OF ANTICOAGULANT AT THE TIME OF SAMPLING. Performed By: #### 5 7307, 07160 ####[facility] [place] [address], [facility] INR Coag (PPP) [Relative time] 2.90 {INR} High 0.91-1.16 [facility] Comment on above: Order Comment: 12 ho urs post vitamin K administration/pre-procedure warfarin reversalNo: Do not add to previous draw Result Comment: [facility] P RECOMMENDED INR FOR WARFARIN THERAPY --------- [...] CHEST 1995;108:231S-246S. Performed By: #### 5 6101 ####[place] [address] [address] PT Coag (PPP) [Time] 30.1 s High 12.3-14.8 [facility] Comment on above: Order Comment: 12 ho urs post vitamin K administration/pre-procedure warfarin reversalNo: Do not add to previous draw Result Comment: ALL RESULTS MUST BE INTERPRETED WITH RESPECT TO BLOOD DRAWING ARTIFACT OR DILUTION ERROR OF ANTICOAGULANT AT THE TIME OF SAMPLING. Performed By: #### 5 6101 ####[facility] [facility].[address] RBC'S 1 UNITon 02-04-2022 CROSSMATCH INTERP 1 COMP Normal [facility] Comment on above: Performed By: #### 8 6001 ####[facility] [facility].[address] PRODUCT CODE 1 E0336 Normal [facility] Comment on above: Performed By: #### 8 6001 ####[facility] [facility].[address] PRODUCT STATUS 1 RE Normal [facility] Comment on above: Result Comment: Resu lt changed by IF on 02/08/2022 07:21. The previous value was XM. Performed By: #### 8 6001 ####[facility] [facility].[address] UNIT ABO 1 O Normal [facility] Comment on above: Performed By: #### 8 6001 ####[facility] [facility] UNIT ID 1 [id number] Normal [facility] Comment on above: Performed By: #### 8 6001 ####[facility] [facility] [address], [facility] UNIT RH 1 Negative Normal [facility] Comment on above: Performed By: #### 8 6001 ####[facility] [facility].[address] SODIUM WHOLE BLOOD CBGLon Sodium [Moles/Vol] 136.0 mmol/L Normal 136.0-146 . 0 [facility] Comment on above: Performed By: #### 3 0318 #### [facility] [address] [place] [address], [facility] TYPE AND SCREENon 02-04-2022 ABO INTERPRETATION O Normal [facility] Comment on above: Performed By: #### 3 0318 #### [facility] [address] [place] [address], [facility] RH INTERPRETATION Negative Normal [facility] Comment on above: Performed By: #### 3 0318 #### [facility] [address] [place] [address], [facility] APTTon 02-03-2022 aPTT Coag (Bld) [Time] 64.0 s High 25.0-35.0 Th e [facility] Comment on above: Result Comment: ALL [...] THIS PURPOSE. Performed By: #### 5 6101, 14791 ####[facility] CBC W/DIFFon 02-03-2022 ABS IMM GRANS 0.0 10*3/uL Normal 0.0-0.2 [facility] Comment on above: Performed By: #### 3 0338 #### [facility] [address] [place] [address], [facility] ABS NEUTROPHILS 5.8 10*3/uL Normal 1.6-7.6 [facility] Comment on above: Performed By: #### 3 0338 #### [facility] [address] [place] [address], [facility] Basophils (Bld) [#/Vol] 0.0 10*3/uL Normal 0.0-0.2 [facility] Comment on above: Performed By: #### 3 0338 #### [facility] [address] [place] [address], [facility] Basophils/100 WBC (Bld) 0.5 % Normal 0.0-1.0 [facility] Comment on above: Performed By: #### 3 0338 #### [facility] [address] [place] [address], [facility] Eosinophils (Bld) [#/Vol] 0.2 10*3/uL Normal 0.0-0.5 [facility] Comment on above: Performed By: #### 3 0338 #### [facility] [address] [place] [address], [facility] Eosinophils/100 WBC (Bld) 2.1 % Normal 0.0-6.0 [facility] Comment on above: Performed By: #### 3 0338 #### [facility] [address] [facility]. [address] Erythrocyte distribution width (RBC) [Ratio] 14.2 % Normal 11.5-15.0 [facility] Comment on above: Performed By: #### 3 0338 #### [facility] [address] Hematocrit (Bld) [Volume fraction] 33.2 % Low 39.0-50.0 [facility] Comment on above: Performed By: #### 3 0338 #### [facility] [address] Hemoglobin (Bld) [Mass/Vol] 11.3 g/dL Low 13.0-17.0 [facility] Comment on above: Performed By: #### 3 0338 #### [facility] [address] IMMATURE GRANS 0.4 % Normal 0.0-1.0 [facility] Comment on above: Performed By: #### 3 0338 #### [facility] [address] Lymphocytes (Bld) [#/Vol] 1.0 10*3/uL Low 1.2-4.0 [facility] Comment on above: Performed By: #### 3 0338 #### [facility] [address] Lymphocytes/100 WBC (Bld) 12.6 % Low 20.0-45.0 [facility] Comment on above: Performed By: #### 3 0338 #### [facility] [address] MCH (RBC) [Entitic mass] 32.2 pg Normal 27.0-33.0 [facility] Comment on above: Performed By: #### 3 0338 #### [facility] [address] MCHC (RBC) [Mass/Vol] 34.0 g/dL Normal 32.0-35.0 [facility] Comment on above: Performed By: #### 3 0338 #### [facility] [address] [facility] [place] [address], [facility] MCV (RBC) [Entitic vol] 94.6 fL Normal 82.0-98.0 [facility] Comment on above: Performed By: #### 3 0338 #### [facility] [address] [place] [address], [facility] Monocytes (Bld) [#/Vol] 0.7 10*3/uL Normal 0.1-1.0 [facility] Comment on above: Performed By: #### 3 0338 #### [facility] [address] [facility]. [address] MONOS 9.2 % Normal 5.0-12.0 [facility] Comment on above: Performed By: #### 3 0338 #### [facility] [address] [place] [address], [facility] Neutrophils/100 WBC (Bld) 75.2 % High 40.0-72.0 [facility] Comment on above: Performed By: #### 3 0338 #### [facility] [address] [place] [address], [facility] Nucleated RBC/100 WBC (Bld) [Ratio] 0 % Normal 0-0 [facility] Comment on above: Performed By: #### 3 0338 #### [facility] [address] [place] [address], [facility] PLAT CNT 190 10*3/uL Normal 150-400 [facility] Comment on above: Performed By: #### 3 0338 #### [facility] [address] [facility] [place] [address], [facility] RBC (Bld) [#/Vol] 3.51 10*6/uL Low 4.20-5.70 [facility] Comment on above: Performed By: #### 3 0338 #### [facility] [address] [place] [address], [facility] WBC (Bld) [#/Vol] 7.75 10*3/uL Normal 4.00-10.60 [facility] Comment on above: Performed By: #### 3 0338 #### [facility] [address] [place] [address], [facility] COMP METABOLIC PANELon 02-03 Albumin [Mass/Vol] 3.7 g/dL Normal 3.5-5.7 [facility] Comment on above: Performed By: #### 3 0318 #### [facility] [address] [place] [id number], [facility] ALKALINE PHOSPH 89 IU/L Normal 34-104 [facility] Comment on above: Performed By: #### 3 0318 #### [facility] [address] [place] [address], [facility] ALT [Catalytic activity/Vol] 10 U/L Normal 7-52 [facility] Comment on above: Performed By: #### 3 0318 #### [facility] [address] [place] [address], [facility] AST [Catalytic activity/Vol] 16 U/L Normal 13-39 [facility] Comment on above: Performed By: #### 3 0318 #### [facility] [address] [place] [address], [facility] Bilirubin [Mass/Vol] 0.6 mg/dL Normal 0.3-1.0 [facility] Comment on above: Performed By: #### 3 0318 #### [facility] [address] [place] [address], [facility] Calcium [Mass/Vol] 8.6 mg/dL Normal 8.6-10.3 [facility] Comment on above: Performed By: #### 3 0318 #### [facility] [address] [place] [address], [place] Chloride [Moles/Vol] 103 mmol/L Normal 98-107 [facility] Comment on above: Performed By: #### 3 0318 #### [facility] [address] [place] [address], [place] CO2 [Moles/Vol] 27 mmol/L Normal 21-31 [facility] Comment on above: Performed By: #### 3 0318 #### [facility] [address] [place] [address], [place] Creatinine [Mass/Vol] 1.62 mg/dL High 0.70-1.30 [facility] Comment on above: Performed By: #### 3 0318 #### [facility] [address] [place] [address], [place] eGFR- 51 ml/min/1.73sq m Abnormal >60 [facility] Comment on above: Result Comment: Calc ulation may not be valid for patients over 70 years Performed By: #### 3 0318 #### [facility] [address] [place] [address], [place] eGFR- non- 42 ml/min/1.73sq m Abnormal >60 [facility] Comment on above: Result Comment: Calc ulation may not be valid for patients over 70 years Performed By: #### 3 0318 #### [facility] [address] [place] [address], [place] Glucose [Mass/Vol] 90 mg/dL Normal 70-100 [facility] Comment on above: Performed By: #### 3 0318 #### [facility] [address] [place] [address], [place] Potassium [Moles/Vol] 3.5 mmol/L Normal 3.5-5.1 [facility] Comment on above: Performed By: #### 3 0318 #### [facility] [address] [place] [address], [facility] Protein [Mass/Vol] 6.6 g/dL Normal 6.0-8.3 [facility] Comment on above: Performed By: #### 3 0318 #### [facility] [address] [place] [address], [facility] Sodium [Moles/Vol] 138 mmol/L Normal 136-145 [facility] Comment on above: Performed By: #### 3 0318 #### [facility] [address] [place] [address], [facility] Urea nitrogen [Mass/Vol] 23 mg/dL Normal 7-25 [facility] Comment on above: Performed By: #### 3 0318 #### [facility] [address] POC SARS COV2 ANTIGEN NEGATI VEon 02-03-2022 POC SARS COV2 ANTIGEN NEG Negative Normal NEGATIVE [facility] Comment on above: Result Comment: Nega [...] antigen from SARS-CoV-2 in direct nasopharyngeal swab (NARCOTICS AND/OR VICE DETECTIVE) specimens from individuals who are suspected of [...] Accreditation. Performed By: #### 3 2044 #### [place] [address], [facility] PORTABLE CHEST 1 VIEWon 01-25 PORTABLE CHEST 1 VIEW [facility] Department of Radiology [address] [place] [id number] Patient Name: NIELS MCCULLOUGH : 1945 Sex: M Age: Race: White Pt. Location: [facility] Patient Status: E Ordered Date: 02/03/2022 [...] failure. Electronically signed: Isidro Nieto. Transcribed by: [email or web address], User Resident: Electronically Signed by: ISIDRO NIETO @ 02/03/2022 08:48 AM Normal [facility] Comment on above: Order Comment: evalu ate for Aspiration PROTHROMBIN TIMEon 2 INR Coag (PPP) [Relative time] 3.58 {INR} High 0.91-1.16 [facility] Comment on above: Order Comment: No: [...] RANGE. CHEST 1995;108:231S-246S. Performed By: #### 5 7831 ####[facility] [place] [address], [facility] PT Coag (PPP) [Time] 35.4 s High 12.3-14.8 [facility] Comment on above: Order Comment: No: D o not add to previous draw Result Comment: ALL RESULTS MUST BE INTERPRETED WITH RESPECT TO BLOOD DRAWING ARTIFACT OR DILUTION ERROR OF ANTICOAGULANT AT THE TIME OF SAMPLING. Performed By: #### 5 2031 ####[facility] INR Coag (PPP) [Relative time] 3.62 {INR} High 0.91-1.16 [facility] Comment on above: Result Comment: [facility] P RECOMMENDED INR FOR WARFARIN THERAPY --------- [...] 1995;108:231S-246S. Performed By: #### 3 0338 #### [facility] [address] [place] [address], [facility] PT Coag (PPP) [Time] 35.8 s High 12.3-14.8 [facility] Comment on above: Result Comment: ALL RESULTS MUST BE INTERPRETED WITH RESPECT TO BLOOD DRAWING ARTIFACT OR DILUTION ERROR OF ANTICOAGULANT AT THE TIME OF SAMPLING. Performed By: #### 3 0338 #### [facility] [address] [place] [address], [facility] RBC'S 2 UNITSon 02-03-2022 CROSSMATCH INTERP 1 COMP Normal [facility] Comment on above: Performed By: #### 8 6002 ####[facility] [place] [address], [facility] CROSSMATCH INTERP 2 COMP Normal [facility] Comment on above: Performed By: #### 8 6002 ####[facility] [place] [address], [facility] PRODUCT CODE 1 E0336 Normal [facility] Comment on above: Performed By: #### 8 6002 ####[facility] [place] [address], [facility] PRODUCT CODE 2 E0336 Normal [facility] Comment on above: Performed By: #### 8 6002 ####[facility] [place] [address], [facility] PRODUCT STATUS 1 RE Normal [facility] Comment on above: Result Comment: Resu lt changed by IF on 02/04/2022 19:14. The previous value was XM. Result changed by IF on 02/04/2022 20:42. The previous value was IS. Result changed by IF on 02/08/2022 07:21. The previous value was XM. Performed By: #### 8 6002 ####[facility] [place] [address], [facility] PRODUCT STATUS 2 RE Normal [facility] Comment on above: Result Comment: Resu lt changed by IF on 02/04/2022 19:16. The previous value was XM. Performed By: #### 8 6002 ####[facility] [place] [address], [facility] UNIT ABO 1 O Normal [facility] Comment on above: Performed By: #### 8 6002 ####[facility] [place] [address], [facility] UNIT ABO 2 O Normal [facility] Comment on above: Performed By: #### 8 6002 ####[facility] [place] [address], [place] UNIT ID 1 [id number] Normal [facility] Comment on above: Performed By: #### 8 6002 ####[facility] [facility] [address], [facility] UNIT ID 2 [id number] Normal [facility] Comment on above: Performed By: #### [id number] ####[facility] [place] [address], [facility] RH 1 Negative Normal [facility] Comment on above: Performed By: #### [id number] ####[facility] [place] [address], [facility] RH 2 Negative Normal [facility] Comment on above: Performed By: #### [id number] ####[facility] [facility] [place] [address], [facility] UA w/Reflex Cultureon 2017 Acetoacetic Acid,Ur Negative Normal NEG [facility] Comment on above: Performed By: #### U AX UMDEEPTHIO ####[facility] [facility] [place] [address] Bilirubin, SemiQt,Ur Negative Normal NEG [facility] Comment on above: Performed By: #### U AX UMICAO ####[facility] [facility] [place] [address] Color YELLOW Normal YEL [facility] Comment on above: Performed By: #### U AX UMICAO ####[facility] [place] [address].[place] [address] Glucose,Semi-qnt,Ur Negative Normal NEG [facility] Comment on above: Performed By: #### U AX UMICAO ####[facility] [place] [address].[place] [address] Hemoglobin, Ur Negative Normal NEG [facility] Comment on above: Performed By: #### U AX UMICAO ####[facility] [place] [address] Leuckocyte Esterase Negative Normal NEG [facility] Comment on above: Performed By: #### U AX, UMICAO ####[facility] [place] [address] Nitrite,Ur Negative Normal NEG [facility] Comment on above: Performed By: #### U AX, UMICAO ####[facility] [place] [address] PH,Ur 7.0 Normal 5.0-8.0 [facility] Comment on above: Performed By: #### U AX, UMICAO ####[facility] [place] [address].[place] [address] Protein, Semi-qnt,Ur Negative Normal NEG [facility] Comment on above: Performed By: #### U AX, UMICAO ####[facility] [facility] [address] Spec. [place],Ur 1.005 Normal 1.000-1.03 0 [facility] Comment on above: Performed By: #### U AX, UMICAO ####[facility] [facility] [place] [address] Turbidity CLOUDY Abnormal CLEAR [facility] Comment on above: Performed By: #### U AX, UMICAO ####[facility] [place], [place] [address]e [facility] [address] Urobilinogen,Ur Normal Normal NORM [facility] Comment on above: Performed By: #### U AX, UMICAO ####[facility] [place], [place] [address] [place] [address] Comment NOT REPORTED Normal [facility] Comment on above: Performed By: #### U AX, UMICAO ####[address] [place] [address] Urinalysis,Microon 8 ----- Normal [facility] Comment on above: Performed By: #### U AX, UMICAO ####[address] [address] Bacteria FEW Abnormal NONE [facility] Comment on above: Performed By: #### U AX, UMICAO ####[address] [address] Epithelial cells 0 TO 2 Normal [facility] Comment on above: Performed By: #### U AX, UMICAO ####[address] [address] RBC Test strip #/vol (U) 0 TO 2 Normal [facility] Comment on above: Performed By: #### U AX, UMICAO ####[address] [address] Urine WBC's 0 TO 2 Normal [facility] Comment on above: Performed By: #### U AX, UMICAO ####[address] [address] Amorphous Sediment NOT REPORTED Normal NONE [facility] Comment on above: Performed By: #### U AX, UMICAO ####[address] [address] Casts NOT REPORTED Normal [facility] Comment on above: Performed By: #### U AX, UMICAO ####[address] [place] [address] Crystals NOT REPORTED Normal NONE [facility] Comment on above: Performed By: #### U AX, UMICAO ####[facility] [facility] [place] [address] Epithelial, Renal NOT REPORTED Normal 0 [facility] Comment on above: Performed By: #### U AX, UMICAO ####[facility] [facility] [address] Mucus Strands NOT REPORTED Normal NONE [facility] Comment on above: Performed By: #### U AX, UMICAO ####[facility] [facility] [address] Other Observations NOT REPORTED Normal NREQ [facility] Comment on above: Performed By: #### U AX, UMICAO ####[facility] [facility] [address] Trichomonas NOT REPORTED Normal NONE [facility] Comment on above: Performed By: #### U AX, UMICAO ####[facility] [facility] [place] [address] Yeast NOT REPORTED Normal NONE [facility] Comment on above: Performed By: #### U AX, UMICAO ####[facility] [facility] [place] [address] Acetaminophenon 08-16-2018 Acetaminophen mass conc <5 Low 10-[address] [facility] Comment on above: Performed By: #### T ABA HERNADEZ, BMP ####[address] , [place] [id number] CBC with Diffon 08-16-2018 Abs. Basophil 0.03 k/uL Normal 0.00-0.[address] [facility] Comment on above: Performed By: #### T ABA HERNADEZ, BMP ####[address] , [place] [address] Abs.Imm.Granulocyte <0.03 Normal 0.00-0.[address] [facility] Comment on above: Performed By: #### T ABA HERNADEZ, BMP ####[address] , [place] [address] Abs.Neutrophil (Seg) 3.19 k/uL Normal 1.50-8.10 [facility] Comment on above: Performed By: #### T ABA HERNADEZ, BMP ####[address] , [place] [address] Basophils/100 WBC Auto (Bld) 1 % Normal 0-[address] [facility] Comment on above: Performed By: #### T ABA HERNADEZ, BMP ####[address] , [place] [address] Eosinophils Auto #/vol (Bld) 0.17 10*3/uL Normal 0.00-0.[address] [facility] Comment on above: Performed By: #### T ABA HERNADEZ, BMP ####[address] , [place] [address] Eosinophils/100 WBC Auto (Bld) 3 % Normal 1-[address] [facility] Comment on above: Performed By: #### T ABA HERNADEZ, BMP ####[address] , [place] [address] Erythrocyte distribution width Auto Ratio (RBC) 12.6 % Normal 11.8-14.[address] [facility] Comment on above: Performed By: #### T ABA HERNADEZ, BMP ####[address] , [place] [address] Hematocrit Auto Volume Fraction (Bld) 39.4 % Low 40.7-50.[address] [facility] Comment on above: Performed By: #### T ABA HERNADEZ, BMP ####[address] [place] [address] Hemoglobin mass conc (Bld) 13.5 g/dL Normal 13.0-17.[address] [facility] Comment on above: Performed By: #### T SH, CDP, BMP ####[address] , [place] [address] Immature granulocytes #/vol (Bld) 0 % Normal [address] [facility] Comment on above: Performed By: #### T MARICARMEN CDP, BMP ####[address] , [place] [address] Lymphocytes Auto #/vol (Bld) 1.54 10*3/uL Normal 1.10-3.[address] [facility] Comment on above: Performed By: #### T MARICARMEN CDP, BMP ####[address] [place] [address] Lymphocytes/100 WBC Auto (Bld) 28 % Normal 24-[address] [facility] Comment on above: Performed By: #### T ABA HERNADEZ, BMP ####[address] , [place] [address] MCH Auto Entitic mass (RBC) 33.4 pg Normal 25.2-33.[address] [facility] Comment on above: Performed By: #### T ABA HERNADEZ, BMP ####[address] [place] [address] MCHC Auto mass conc (RBC) 34.3 g/dL Normal 28.4-34.[address] [facility] Comment on above: Performed By: #### T ABA HERNADEZ, BMP ####[address] , [place] [address] MCV Auto Entitic volume (RBC) 97.5 fL Normal 82.6-102.[address] [facility] Comment on above: Performed By: #### T MARICARMEN CDP, BMP ####[address] , [place] [address] Monocytes Auto #/vol (Bld) 0.66 10*3/uL Normal 0.10-1.[address] [facility] Comment on above: Performed By: #### T MARICARMEN, CDP, BMP ####[address] [place] [address] Monocytes/100 WBC Auto (Bld) 12 % Normal 3-[address] [facility] Comment on above: Performed By: #### T MARICARMEN CDP, BMP ####[address] [place] [address] Neutrophil (Seg) 56 % Normal 36-[address] [facility] Comment on above: Performed By: #### T MARICARMEN CDP, BMP ####[address] [place] [address] NRBC Automated 0.0 per 100 WBC Normal 0.[address] [facility] Comment on above: Performed By: #### T ABA HERNADEZ, BMP ####[address] [place] [address] Platelet mean volume Auto Entitic volume (Bld) 8.7 fL Normal 8.1-13.[address] [facility] Comment on above: Performed By: #### T ABA HERNADEZ, BMP ####[address] [place] [address] Platelets Auto #/vol (Bld) 163 10*3/uL Normal 138-[address] [facility] Comment on above: Performed By: #### T MARICARMEN CDP, BMP ####[address] [place] [address] RBC Auto #/vol (Bld) 4.04 10*6/uL Low 4.21-5.77 [facility] Comment on above: Performed By: #### T MARICARMEN, CDP, BMP ####[address] [place] [address] WBC Auto #/vol (Bld) 5.6 10*3/uL Normal 3.5-11.3 [facility] Comment on above: Performed By: #### T MARICARMEN, CDP, BMP ####[address] [place] [address] Auto Diff Performed NOT REPORTED Normal [facility] Comment on above: Performed By: #### T ABA HERNADEZ, BMP ####[address] [place] [address] Platelets Auto #/vol (Bld) NOT REPORTED Normal [facility] Comment on above: Performed By: #### T MARICARMEN, ABA, BMP ####[address] [place] [address] RBC morphology finding Nom (Bld) NOT REPORTED Normal [facility] Comment on above: Performed By: #### T ABA HERNADEZ, BMP ####[address] [place] [address] WBC Morphology NOT REPORTED Normal [facility] Comment on above: Performed By: #### T ABA HERNADEZ, BMP ####[address] [place] [address] Comp Metabolic Profon 2017 (cont.) Normal [facility] Comment on above: Result Comment: Aver age GFR for 70 or more years old: 75 mL/min/1.73sq mChronic Kidney Disease: <60 mL/min/1.73sq mKidney failure: <15 mL/min/1.73sq meGFR calculated using average adult body mass. Additional eGFR calculator available at:[email or web address] Performed By: #### T ABA HERNADEZ, BMP ####[address] [place] [address] Albumin mass conc 4.0 g/dL Normal 3.5-5.[address] [facility] Comment on above: Performed By: #### T MARICARMEN, ABA, BMP ####[address] [place] [address] Albumin/Globulin mass ratio 1.7 {ratio} Normal 1.0-2.[address] [facility] Comment on above: Performed By: #### T MARICARMEN, ABA, BMP ####[address] [place] [address] Alkaline Phos 71 U/L Normal 40-[address] [facility] Comment on above: Performed By: #### T MARICARMEN CDP, BMP ####[address] [place] [address] ALT enzyme act/vol 10 U/L Normal 5-[address] [facility] Comment on above: Performed By: #### T MARICARMEN CDP, BMP ####[address] [place] [address] Anion gap 3 molar conc 10 mmol/L Normal 9-17 [facility] Comment on above: Performed By: #### T ABA HERNADEZ, BMP ####[address] [place] [address] AST enzyme act/vol 14 U/L Normal <[address] [facility] Comment on above: Performed By: #### T ABA HERNADEZ, BMP ####[address] [place] [address] Bilirubin Ql (U) 0.57 mg/dL Normal 0.3-1.[address] [facility] Comment on above: Performed By: #### T ABA HERNADEZ, BMP ####[address] [place] [address] BUN/CRE Ratio 9 Normal 9-[address] [facility] Comment on above: Performed By: #### T MARICARMEN CDP, BMP ####[address] [place] [address] Calcium mass conc 8.9 mg/dL Normal 8.6-10.[address] [facility] Comment on above: Performed By: #### T MARICARMEN CDP, BMP ####[address] [place] [address] Chloride molar conc 95 mmol/L Low 98-[address] [facility] Comment on above: Performed By: #### T MARICARMEN CDP, BMP ####[address] [place] [address] CO2 molar conc 29 mmol/L Normal 20-[address] [facility] Comment on above: Performed By: #### T SH, CDP, BMP ####[address] [place] [address] Creatinine mass conc 1.42 mg/dL High 0.70-1.20 [facility] Comment on above: Performed By: #### T SH, CDP, BMP ####[address] [place] [address] GFR, Amer 60 mL/min Low >[address] [facility] Comment on above: Performed By: #### T SH, CDP, BMP ####[address] [place] [address] GFR,non Amer 49 mL/min Low >60 [facility] Comment on above: Performed By: #### T SH, CDP, BMP ####[address] [place] [address] Glucose mass conc 111 mg/dL High 70-[address] [facility] Comment on above: Performed By: #### T SH, CDP, BMP ####[address] [place] [address] Potassium molar conc 4.0 mmol/L Normal 3.7-5.3 [facility] Comment on above: Performed By: #### T SH, CDP, BMP ####[address] [place] [address] Protein mass conc 6.4 g/dL Normal 6.4-8.[address] [facility] Comment on above: Performed By: #### T SH, CDP, BMP ####[address] [place] [address] Sodium molar conc 134 mmol/L Low 135-[address] [facility] Comment on above: Performed By: #### T SH, CDP, BMP ####[address] [place] [address] Staging: Normal [facility] Comment on above: Result Comment: Stag e 1: Some kidney damage normal GFRStage 2: Mild kidney damage GFR 60-89Stage 3: Moderate kidney damage GFR 30-59Stage 4: Severe kidney damage GFR 15-29Stage 5: Severe kidney damage GFR <15ESRD - chronic treatment by dialysis or transplant Performed By: #### T SH, CDP, BMP ####[address] [place] [address] Urea nitrogen mass conc 13 mg/dL Normal 8-[address] [facility] Comment on above: Performed By: #### T SH, CDP, BMP ####[address] [place] [address] Drug Scr, Abuse, Uron 2017 Amphetamine(s),Ur Negative Normal NEG [facility] Comment on above: Performed By: #### T SH, CDP, BMP ####[address] [place] [address] Barbiturate(s),Ur Negative Normal NEG [facility] Comment on above: Performed By: #### T SH, CDP, BMP ####[address] [place] [address] Base excess Calculated molar conc (Bld) Negative Normal NEG [facility] Comment on above: Performed By: #### T SH, CDP, BMP ####[address] [place] [address] Benzodiazepine(s) Positive Abnormal NEG [facility] Comment on above: Performed By: #### T SH, CDP, BMP ####[address] [place] [address] Buprenorphrine, Ur Negative Normal NEG [facility] Comment on above: Performed By: #### T SH, CDP, BMP ####[address] [place] [address] Cannabinoid(s),Ur Negative Normal NEG [facility] Comment on above: Performed By: #### T SH, CDP, BMP ####[address] [place] [address] Methadone Ql (U) Negative Normal NEG [facility] Comment on above: Performed By: #### T MARICARMEN, CDP, BMP ####[address] [place] [address] Methamphetamine, Ur Negative Normal NEG [facility] Comment on above: Performed By: #### T MARICARMEN CDP, BMP ####[address] [place] [address] Opiate(s), Ur Negative Normal NEG [facility] Comment on above: Performed By: #### T MARICARMEN CDP, BMP ####[address] [place] [address] Oxycodone, Urine Negative Normal [facility] Comment on above: Performed By: #### T MARICARMEN CDP, BMP ####[facility] [address] [place] [address] Phencyclidine, Ur Negative Normal NEG [facility] Comment on above: Performed By: #### T MARICARMEN CDP, BMP ####[facility] [address] [place] [address] Propoxyphene,Urine Negative Normal NEG [facility] Comment on above: Performed By: #### T MARICARMEN, CDP, BMP ####[address] [place] [address] Tricyclic antidepressants Screen Ql (U) Negative Normal [facility] Comment on above: Result Comment: Drug screen results are to be used for medical purposes only. All positive results are unconfirmed. Testing for employment or legal uses should be sent to a reference laboratory for confirmation. Performed By: #### T SH, CDP, BMP ####[facility] [address] [place] [address] Interpretive Info NOT REPORTED Normal [facility] Comment on above: Performed By: #### T ABA HERNADEZ BMP ####[address] , [place] [address] MDMA, Urine NOT REPORTED Normal NEG [facility] Comment on above: Performed By: #### T ABA HERNADEZ BMP ####[address] , [place] [address] ED Noteon 08-16-2018 HIM IP Note OR Form Builder Normal [facility] HIM IP Note OR Form Builder Normal [facility] HIM IP Note OR Form Builder Normal [facility] HIM IP Note OR Form Builder Normal [facility] HIM IP Note [facility] Form Builder Normal [facility] HIM IP Note [facility] Form Builder Normal [facility] HIM IP Note [facility] Form Builder Normal [facility] HIM IP Note [facility] Form Builder Normal [facility] HIM IP Note [facility] Form Builder Normal [facility] HIM IP Note [facility] Form Builder Normal [facility] HIM IP Note [facility] Form Builder Normal [facility] HIM IP Note [facility] Form Builder Normal [facility] HIM IP Note [facility] Form Builder Normal [facility] HIM IP Note [facility] Form Builder Normal [facility] HIM IP Note OR Form Builder Normal [facility] HIM IP Note [facility] Form Builder Normal [facility] HIM IP Note OR Form Builder Normal [facility] HIM IP Note OR Form Builder Normal [facility] HIM IP Note OR Form Builder Normal [facility] ED Provider Noteon 8 HIM IP Note OR Form Builder Normal [facility] Ethanol Alcoholon 08-16-2018 Ethanol mass conc mg/dL Normal <[address] [facility] Comment on above: Performed By: #### T ABA HERNADEZ BMP ####[facility] [address] [place], [place] [address] Ethanol percent <0.[address] [facility] Comment on above: Performed By: #### T ABA HERNADEZ BMP ####[facility] [address] [place] [address]( Salicylateon 08-16-2018 Salicylate <1 Low 3-[address] [facility] Comment on above: Performed By: #### T ABA HERNADEZ, BMP ####[address] [place] [address] Thyroid Stim. Horm.on 2017 Thyrotropin Qn 0.80 m[IU]/L Normal 0.30-5.[address] [facility] Comment on above: Performed By: #### T ABA HERNADEZ, BMP ####[address] [place] [address] Thyroxine, Freeon 08-16-2018 Thyroxine, Free 1.43 ng/dL Normal 0.93-1.[address] [facility] Comment on above: Performed By: #### T ABA HERNADEZ, BMP ####[address] [place] [address] Urinalysis w/ Microon 2017 ----- Normal [facility] Comment on above: Performed By: #### T ABA HERNADEZ, BMP ####[address] [place] [address] Acetaminophen mass conc Negative Normal NEG [facility] Comment on above: Performed By: #### T ABA HERNADEZ, BMP ####[address] [place] [address] Bacteria TRACE Abnormal NONE [facility] Comment on above: Performed By: #### T ABA HERNADEZ, BMP ####[address] [place] [address] Bilirubin, SemiQt,Ur Negative Normal NEG [facility] Comment on above: Performed By: #### T ABA HERNADEZ, BMP ####[address] [place] [address] Color YELLOW Normal YEL [facility] Comment on above: Performed By: #### T ABA HERNADEZ, BMP ####[address] [place] [address] Epithelial cells 0 TO 2 Normal 0-[address] [facility] Comment on above: Performed By: #### T MARICARMEN CDP, BMP ####[address] [place] [address] Glucose,Semi-qnt,Ur Negative Normal NEG [facility] Comment on above: Performed By: #### T ABA HERNADEZ, BMP ####[address] [place] [address] Hemoglobin, Ur Negative Normal NEG [facility] Comment on above: Performed By: #### T ABA HERNADEZ, BMP ####[address] [place] [address] Leuckocyte Esterase Negative Normal NEG [facility] Comment on above: Performed By: #### T ABA HERNADEZ, BMP ####[address] [place] [address] Nitrite,Ur Negative Normal NEG [facility] Comment on above: Performed By: #### T ABA HERNADEZ, BMP ####[address] [place] [address] PH,Ur 7.0 Normal 5.0-9.[address] [facility] Comment on above: Performed By: #### T ABA HERNADEZ, BMP ####[address] [place] [address] Protein mass conc Negative Normal NEG [facility] Comment on above: Performed By: #### T ABA HERNADEZ, BMP ####[address] [place] [address] RBC Test strip #/vol (U) 0 TO 2 Normal 0-[address] [facility] Comment on above: Performed By: #### T ABA HERNADEZ, BMP ####[address] [place] [address] Spec. [place],Ur <1.005 Low 1.010-1.[address] [facility] Comment on above: Performed By: #### T MARICARMEN CDP, BMP ####[address] [place] [address] Turbidity CLEAR Normal CLEAR [facility] Comment on above: Performed By: #### T SH, CDP, BMP ####[address] [place] [address] Urine WBC's 0 TO 2 Normal 0-[address] [facility] Comment on above: Performed By: #### T MARICARMEN, CDP, BMP ####[address] [place] [address] Urobilinogen,Ur Normal Normal NORM [facility] Comment on above: Performed By: #### T MARICARMEN CDP, BMP ####[address] [place] [address] Amorphous Sediment NOT REPORTED Normal NONE [facility] Comment on above: Performed By: #### T SH, CDP, BMP ####[address] [place] [address] Casts NOT REPORTED Normal [facility] Comment on above: Performed By: #### T MARICARMEN, CDP, BMP ####[address] [place] [address] Comment NOT REPORTED Normal [facility] Comment on above: Performed By: #### T SH, CDP, BMP ####[address] [place] [address] Crystals NOT REPORTED Normal NONE [facility] Comment on above: Performed By: #### T SH, CDP, BMP ####[address] [place] [address] Epithelial, Renal NOT REPORTED Normal [address] [facility] Comment on above: Performed By: #### T SH, CDP, BMP ####[address] [place] [address] Mucus Strands NOT REPORTED Normal NONE [facility] Comment on above: Performed By: #### T ABA HERNADEZ, BMP ####[address] [place] [address] Other Observations NOT REPORTED Normal NREQ [facility] Comment on above: Performed By: #### T ABA HERNADEZ, BMP ####[address] [place] [address] Trichomonas NOT REPORTED Normal NONE [facility] Comment on above: Performed By: #### T ABA HERNADEZ, BMP ####[address] , [place] [address] Yeast NOT REPORTED Normal NONE [facility] Comment on above: Performed By: #### T ABA HERNADEZ, BMP ####[address] , [facility]83 APTTon 08-06-2018 aPTT Coag time (Bld) 28.4 s Normal 23.2-34.4 [facility] Comment on above: Performed By: #### T ABA HERNADEZ, BMP ####[address] [place] [id number] CBC with Diffon 08-06-2018 Abs. Basophil 0.03 k/uL Normal 0.00-0.[address] [facility] Comment on above: Performed By: #### T ABA HERNADEZ, BMP ####[address] , [facility]83 Abs.Imm.Granulocyte <0.03 Normal 0.00-0.[address] [facility] Comment on above: Performed By: #### T ABA HERNADEZ, BMP ####[address] [place] [address] Abs.Neutrophil (Seg) 4.25 k/uL Normal 1.50-8.10 [facility] Comment on above: Performed By: #### T ABA HERNADEZ, BMP ####[address] , [place] [address] Basophils/100 WBC Auto (Bld) 1 % Normal 0-[address] [facility] Comment on above: Performed By: #### T MARICARMEN CDP, BMP ####[address] [place] [address] Eosinophils Auto #/vol (Bld) 0.20 10*3/uL Normal 0.00-0.[address] [facility] Comment on above: Performed By: #### T ABA HERNADEZ, BMP ####[address] [place] [address] Eosinophils/100 WBC Auto (Bld) 3 % Normal 1-[address] [facility] Comment on above: Performed By: #### T ABA HERNADEZ, BMP ####[address] [place] [address] Erythrocyte distribution width Auto Ratio (RBC) 12.2 % Normal 11.8-14.[address] [facility] Comment on above: Performed By: #### T ABA HERNADEZ, BMP ####[address] , [place] [address] Hematocrit Auto Volume Fraction (Bld) 39.4 % Low 40.7-50.[address] [facility] Comment on above: Performed By: #### T ABA HERNADEZ, BMP ####[address] [place] [address] Hemoglobin mass conc (Bld) 13.7 g/dL Normal 13.0-17.[address] [facility] Comment on above: Performed By: #### T ABA HERNADEZ, BMP ####[address] [place] [address] Immature granulocytes #/vol (Bld) 0 % Normal [address] [facility] Comment on above: Performed By: #### T ABA HERNADEZ, BMP ####[address] , [place] [address] Lymphocytes Auto #/vol (Bld) 1.12 10*3/uL Normal 1.10-3.[address] [facility] Comment on above: Performed By: #### T MARICARMEN CDP, BMP ####[address] , [facility]83 Lymphocytes/100 WBC Auto (Bld) 18 % Low 24-[address] [facility] Comment on above: Performed By: #### T MARICARMEN CDP, BMP ####[address] , [place] [address] MCH Auto Entitic mass (RBC) 33.6 pg High 25.2-33.[address] [facility] Comment on above: Performed By: #### T ABA HERNADEZ, BMP ####[address] , [facility]83 MCHC Auto mass conc (RBC) 34.8 g/dL Normal 28.4-34.[address] [facility] Comment on above: Performed By: #### T ABA HERNADEZ, BMP ####[address] [place] [address] MCV Auto Entitic volume (RBC) 96.6 fL Normal 82.6-102.[address] [facility] Comment on above: Performed By: #### T ABA HERNADEZ, BMP ####[address] , [place] [address] Monocytes Auto #/vol (Bld) 0.61 10*3/uL Normal 0.10-1.[address] [facility] Comment on above: Performed By: #### T ABA HERNADEZ, BMP ####[address] , [facility]83 Monocytes/100 WBC Auto (Bld) 10 % Normal 3-[address] [facility] Comment on above: Performed By: #### T ABA HERNADEZ, BMP ####[address] [place] [address] Neutrophil (Seg) 68 % High 36-[address] [facility] Comment on above: Performed By: #### T ABA HERNADEZ, BMP ####[address] [place] [address] NRBC Automated 0.0 per 100 WBC Normal 0.[address] [facility] Comment on above: Performed By: #### T ABA HERNADEZ, BMP ####[address] , [facility]83 Platelet mean volume Auto Entitic volume (Bld) 8.7 fL Normal 8.1-13.[address] [facility] Comment on above: Performed By: #### T ABA HERNADEZ, BMP ####[address] , [facility]83 Platelets Auto #/vol (Bld) 192 10*3/uL Normal 138-[address] [facility] Comment on above: Performed By: #### T ABA HERNADEZ, BMP ####[address] , [facility]83 RBC Auto #/vol (Bld) 4.08 10*6/uL Low 4.21-5.77 [facility] Comment on above: Performed By: #### T ABA HERNADEZ, BMP ####[address] [place] [address] WBC Auto #/vol (Bld) 6.2 10*3/uL Normal 3.5-11.3 [facility] Comment on above: Performed By: #### T ABA HERNADEZ, BMP ####[address] [place] [address] Auto Diff Performed NOT REPORTED Normal [facility] Comment on above: Performed By: #### T ABA HERNADEZ, BMP ####[address] , [facility]83 Platelets Auto #/vol (Bld) NOT REPORTED Normal [facility] Comment on above: Performed By: #### T MARICARMEN, CDP, BMP ####[facility] [place] [address] RBC morphology finding Nom (Bld) NOT REPORTED Normal [facility] Comment on above: Performed By: #### T MARICARMEN, CDP, BMP ####[facility] [place] , [place] [address] WBC Morphology NOT REPORTED Normal [facility] Comment on above: Performed By: #### T SH, CDP, BMP ####[address] [place] [address] CT ABDOMEN PELVIS WO CONTRAS Ton 08-06-2018 [...] by:FARRAH Arredondoigned by:Ketan Hartley MD08/06/18inal result Normal [facility] CT HEAD WO CONTRASTon 2017 CT [...] by:FARRAH Robbinsigned by:Ayanna Abrams MD08/06/18inal result Normal [facility] Comp Metabolic Profon 2017 (cont.) Normal [facility] Comment on above: Result Comment: Aver age GFR for 70 or more years old: 75 mL/min/1.73sq mChronic Kidney Disease: <60 mL/min/1.73sq mKidney failure: <15 mL/min/1.73sq meGFR calculated using average adult body mass. Additional eGFR calculator available at:[email or web address] Performed By: #### T SH, CDP, BMP ####[address] [place] [address] Albumin mass conc 4.0 g/dL Normal 3.5-5.[address] [facility] Comment on above: Performed By: #### T SH, CDP, BMP ####[address] [place] [address] Albumin/Globulin mass ratio 1.4 {ratio} Normal 1.0-2.[address] [facility] Comment on above: Performed By: #### T SH, CDP, BMP ####[address] [place] [address] Alkaline Phos 79 U/L Normal 40-[address] [facility] Comment on above: Performed By: #### T SH, CDP, BMP ####[address] [place] [address] ALT enzyme act/vol 11 U/L Normal 5-[address] [facility] Comment on above: Performed By: #### T SH, CDP, BMP ####[address] [place] [address] Anion gap 3 molar conc 12 mmol/L Normal 9-17 [facility] Comment on above: Performed By: #### T SH, CDP, BMP ####[address] [place] [address] AST enzyme act/vol 15 U/L Normal <[address] [facility] Comment on above: Performed By: #### T SH, CDP, BMP ####[address] [place] [address] Bilirubin Ql (U) 0.41 mg/dL Normal 0.3-1.[address] [facility] Comment on above: Performed By: #### T SH, CDP, BMP ####[address] [place] [address] BUN/CRE Ratio 8 Low 9-[address] [facility] Comment on above: Performed By: #### T SH, CDP, BMP ####[address] [place] [address] Calcium mass conc 9.1 mg/dL Normal 8.6-10.[address] [facility] Comment on above: Performed By: #### T SH, CDP, BMP ####[address] [place] [address] Chloride molar conc 96 mmol/L Low 98-[address] [facility] Comment on above: Performed By: #### T SH, CDP, BMP ####[address] [place] [address] CO2 molar conc 25 mmol/L Normal 20-[address] [facility] Comment on above: Performed By: #### T SH, CDP, BMP ####[address] [place] [address] Creatinine mass conc 1.45 mg/dL High 0.70-1.20 [facility] Comment on above: Performed By: #### T SH, CDP, BMP ####[address] [place] [address] GFR, Amer 58 mL/min Low >[address] [facility] Comment on above: Performed By: #### T SH, CDP, BMP ####[address] [place] [address] GFR,non Amer 48 mL/min Low >60 [facility] Comment on above: Performed By: #### T SH, CDP, BMP ####[address] [place] [address] Glucose mass conc 100 mg/dL High 70-[address] [facility] Comment on above: Performed By: #### T SH, CDP, BMP ####[address] [place] [address] Potassium molar conc 3.7 mmol/L Normal 3.7-5.3 [facility] Comment on above: Performed By: #### T ABA HERNADEZ, BMP ####[address] [place] [address] Protein mass conc 6.8 g/dL Normal 6.4-8.[address] [facility] Comment on above: Performed By: #### T ABA HERNADEZ, BMP ####[address] , [place] [address] Sodium molar conc 133 mmol/L Low 135-[address] [facility] Comment on above: Performed By: #### T ABA HERNADEZ, BMP ####[address] [place], [place] [id number] Staging: Normal [facility] Comment on above: Result Comment: Stag e 1: Some kidney damage normal GFRStage 2: Mild kidney damage GFR 60-89Stage 3: Moderate kidney damage GFR 30-59Stage 4: Severe kidney damage GFR 15-29Stage 5: Severe kidney damage GFR <15ESRD - chronic treatment by dialysis or transplant Performed By: #### T ABA HERNADEZ, BMP ####[address] [place] [address] Urea nitrogen mass conc 11 mg/dL Normal 8-[address] [facility] Comment on above: Performed By: #### T ABA HERNADEZ, BMP ####[address] , [place] [address] ED Provider Noteon 8 HIM IP Note OR Form Builder Normal [facility] Lactic Acidon 08-06-2018 Lactate molar conc 0.8 mmol/L Normal 0.5-2.[address] [facility] Comment on above: Performed By: #### T ABA HERNADEZ, BMP ####[address] [place], [place] [id number] Lactic Acid,Whole Bl NOT REPORTED Normal 0.7-2.1 [facility] Comment on above: Performed By: #### T ABA HERNADEZ, BMP ####[address] [place] [address] PTon 08-06-2018 INR Coag RelTime (PPP) 1.0 {INR} Normal 0.9-1.2 [facility] Comment on above: Performed By: #### T ABA HERNADEZ, BMP ####[address] [place] [address] Prothrombin time (PT) Coag time (PPP) 10.6 s Normal 9.7-12.[address] [facility] Comment on above: Performed By: #### T ABA HERNADEZ, BMP ####[address] [place] [address] Thyroid Stim. Horm.on 2017 Thyrotropin Qn 0.37 m[IU]/L Normal 0.30-5.[address] [facility] Comment on above: Performed By: #### T ABA HERNADEZ, BMP ####[address] [place] [address] Urinalysis, Routineon 2017 Acetaminophen mass conc Negative Normal NEG [facility] Comment on above: Performed By: #### T ABA HERNADEZ, BMP ####[address] [place] [address] Bilirubin, SemiQt,Ur Negative Normal NEG [facility] Comment on above: Performed By: #### T ABA HERNADEZ, BMP ####[address] [place] [address] Color YELLOW Normal YEL [facility] Comment on above: Performed By: #### T ABA HERNADEZ, BMP ####[address] [place] [address] Glucose,Semi-qnt,Ur Negative Normal NEG [facility] Comment on above: Performed By: #### T ABA HERNADEZ, BMP ####[address] [place] [address] Hemoglobin, Ur TRACE Abnormal NEG [facility] Comment on above: Performed By: #### T SH, CDP, BMP ####[address] [place] [address] Leuckocyte Esterase Negative Normal NEG [facility] Comment on above: Performed By: #### T SH, CDP, BMP ####[address] [place] [address] Nitrite,Ur Negative Normal NEG [facility] Comment on above: Performed By: #### T SH, CDP, BMP ####[address] [place] [address] PH,Ur 7.0 Normal 5.0-9.[address] [facility] Comment on above: Performed By: #### T SH, CDP, BMP ####[address] [place] [address] Protein mass conc Negative Normal NEG [facility] Comment on above: Performed By: #### T SH, CDP, BMP ####[address] [place] [address] Spec. [place],Ur <1.005 Low 1.010-1.[address] [facility] Comment on above: Performed By: #### T SH, CDP, BMP ####[address] [place] [address] Turbidity CLEAR Normal CLEAR [facility] Comment on above: Performed By: #### T SH, CDP, BMP ####[address] [place] [address] Urobilinogen,Ur Normal Normal NORM [facility] Comment on above: Performed By: #### T SH, CDP, BMP ####[address] [place] [address] Comment NOT REPORTED Normal [facility] Comment on above: Performed By: #### T SH, CDP, BMP ####[address] [place] [address] Urinalysis,Microon 8 ----- Normal [facility] Comment on above: Performed By: #### T MARICARMEN CDP, BMP ####[address] [place] [address] Epithelial cells 0 TO 2 Normal 0-[address] [facility] Comment on above: Performed By: #### T MARICARMEN CDP, BMP ####[address] [place] [address] RBC Test strip #/vol (U) 0 TO 2 Normal 0-[address] [facility] Comment on above: Performed By: #### T ABA HERANDEZ, BMP ####[address] [place] [address] Urine WBC's 0 TO 2 Normal 0-[address] [facility] Comment on above: Performed By: #### T ABA HERNADEZ, BMP ####[address] [place] [address] Amorphous Sediment NOT REPORTED Normal NONE [facility] Comment on above: Performed By: #### T ABA HERNADEZ, BMP ####[address] [place] [address] Bacteria NOT REPORTED Normal NONE [facility] Comment on above: Performed By: #### T ABA HERNADEZ, BMP ####[address] [place] [address] Casts NOT REPORTED Normal [facility] Comment on above: Performed By: #### T ABA HERNADEZ, BMP ####[address] [place] [address] Crystals NOT REPORTED Normal NONE [facility] Comment on above: Performed By: #### T MARICARMEN CDP, BMP ####[address] [place] [address] Epithelial, Renal NOT REPORTED Normal [address] [facility] Comment on above: Performed By: #### T SH, CDP, BMP ####[address] [place] [address] Mucus Strands NOT REPORTED Normal NONE [facility] Comment on above: Performed By: #### T SH, CDP, BMP ####[address] [place] [address] Other Observations NOT REPORTED Normal NREQ [facility] Comment on above: Performed By: #### T SH, CDP, BMP ####[address] [place] [address] Trichomonas NOT REPORTED Normal NONE [facility] Comment on above: Performed By: #### T SH, CDP, BMP ####[address] [place] [address] Yeast NOT REPORTED Normal [place] Comment on above: Performed By: #### T SH, CDP, BMP ####[address] [place] [address] UA w/Reflex Cultureon 2017 Acetoacetic Acid,Ur Negative Normal NEG [facility] Comment on above: Performed By: #### T SH, CDP, BMP ####[address] [place] [address] Bilirubin, SemiQt,Ur Negative Normal NEG [facility] Comment on above: Performed By: #### T SH, CDP, BMP ####[address] [place] [address] Color YELLOW Normal YEL [facility] Comment on above: Performed By: #### T SH, CDP, BMP ####[address] [place] [address] Glucose,Semi-qnt,Ur Negative Normal NEG [facility] Comment on above: Performed By: #### T SH, CDP, BMP ####[address] [place] [address] Hemoglobin, Ur Negative Normal NEG [facility] Comment on above: Performed By: #### T MARICARMEN CDP, BMP ####[address] [place] [address] Leuckocyte Esterase Negative Normal NEG [facility] Comment on above: Performed By: #### T MARICARMEN CDP, BMP ####[address] [place] [address] Nitrite,Ur Negative Normal NEG [facility] Comment on above: Performed By: #### T MARICARMEN CDP, BMP ####[address] [place] [address] PH,Ur 7.0 Normal 5.0-9.[address] [facility] Comment on above: Performed By: #### T MARICARMEN CDP, BMP ####[address] [place] [address] Protein, Semi-qnt,Ur Negative Normal NEG [facility] Comment on above: Performed By: #### T MARICARMEN CDP, BMP ####[address] [place] [address] Spec. [place],Ur <1.005 Low 1.010-1.[address] [facility] Comment on above: Performed By: #### T MARICARMEN CDP, BMP ####[address] [place] [address] Turbidity CLEAR Normal CLEAR [facility] Comment on above: Performed By: #### T MARICARMEN CDP, BMP ####[address] [place] [address] Urobilinogen,Ur Normal Normal NORM [facility] Comment on above: Performed By: #### T MARICARMEN CDP, BMP ####[address] [place] [address] Comment NOT REPORTED Normal [facility] Comment on above: Performed By: #### T SH, CDP, BMP ####[address] [place] [address] Urinalysis,Microon 8 ----- Normal [facility] Comment on above: Performed By: #### T MARICARMEN, CDP, BMP ####[address] [place] [address] Epithelial cells 0 TO 2 Normal 0-[address] [facility] Comment on above: Performed By: #### T ABA HERNADEZ, BMP ####[address] [place] [address] RBC Test strip #/vol (U) 0 TO 2 Normal 0-[address] [facility] Comment on above: Performed By: #### T ABA HERNADEZ, BMP ####[address] [place] [address] Urine WBC's 0 TO 2 Normal 0-[address] [facility] Comment on above: Performed By: #### T ABA HERNADEZ, BMP ####[address] [place] [address] Amorphous Sediment NOT REPORTED Normal [facility] Comment on above: Performed By: #### T SH, CDP, BMP ####[address] [place] [address] Bacteria NOT REPORTED Normal [place] Comment on above: Performed By: #### T SH, CDP, BMP ####[address] [place] [address] Casts NOT REPORTED Normal [facility] Comment on above: Performed By: #### T SH, CDP, BMP ####[address] [place] [address] Crystals NOT REPORTED Normal [place] Comment on above: Performed By: #### T SH, CDP, BMP ####[address] [place] [address] Epithelial, Renal NOT REPORTED Normal [address] [facility] Comment on above: Performed By: #### T ABA HERNADEZ, BMP ####[address] [place] [address] Mucus Strands NOT REPORTED Normal NONE [facility] Comment on above: Performed By: #### T ABA HERNADEZ, BMP ####[address] [place] [address] Other Observations NOT REPORTED Normal NREQ [facility] Comment on above: Performed By: #### T ABA HERNADEZ, BMP ####[address] [place] [address] Trichomonas NOT REPORTED Normal NONE [facility] Comment on above: Performed By: #### T ABA HERNADEZ, BMP ####[address] [place] [address] Yeast NOT REPORTED Normal NONE [facility] Comment on above: Performed By: #### T ABA HERNADEZ BMP ####[address] [place] [address] CBC with Diffon 06-15-2018 Abs. Basophil <0.03 Normal 0.00-0.[address] [facility] Comment on above: Performed By: #### T ABA HERNADEZ, BMP ####[address] [place] [id number] Abs.Imm.Granulocyte 0.03 k/uL Normal 0.00-0.[address] [facility] Comment on above: Performed By: #### T ABA HERNADEZ, BMP ####[address] [place] [address] Abs.Neutrophil (Seg) 3.87 k/uL Normal 1.50-8.10 [facility] Comment on above: Performed By: #### T ABA HERNADEZ, BMP ####[address] [place] [address] Basophils/100 WBC Auto (Bld) 0 % Normal 0-[address] [facility] Comment on above: Performed By: #### T MARICARMEN CDP, BMP ####[address] , [place] [address] Eosinophils Auto #/vol (Bld) 0.34 10*3/uL Normal 0.00-0.[address] [facility] Comment on above: Performed By: #### T ABA HERNADEZ, BMP ####[address] [place] [address] Eosinophils/100 WBC Auto (Bld) 6 % High 1-[address] [facility] Comment on above: Performed By: #### T ABA HERNADEZ, BMP ####[address] [place] [address] Erythrocyte distribution width Auto Ratio (RBC) 12.9 % Normal 11.8-14.[address] [facility] Comment on above: Performed By: #### T ABA HERNADEZ, BMP ####[address] [place] [address] Hematocrit Auto Volume Fraction (Bld) 40.4 % Low 40.7-50.[address] [facility] Comment on above: Performed By: #### T ABA HERNADEZ, BMP ####[address] , [place] [address] Hemoglobin mass conc (Bld) 14.0 g/dL Normal 13.0-17.[address] [facility] Comment on above: Performed By: #### T ABA HERNADEZ, BMP ####[address] [place] [address] Immature granulocytes #/vol (Bld) 1 % High [address] [facility] Comment on above: Performed By: #### T ABA HERNADEZ, BMP ####[address] [place] [address] Lymphocytes Auto #/vol (Bld) 1.24 10*3/uL Normal 1.10-3.[address] [facility] Comment on above: Performed By: #### T ABA HERNADEZ, BMP ####[address] , [facility]83 Lymphocytes/100 WBC Auto (Bld) 21 % Low 24-[address] [facility] Comment on above: Performed By: #### T ABA HERNADEZ, BMP ####[address] , [facility]83 MCH Auto Entitic mass (RBC) 33.7 pg High 25.2-33.[address] [facility] Comment on above: Performed By: #### T ABA HERNADEZ, BMP ####[address] , [place] [address] MCHC Auto mass conc (RBC) 34.7 g/dL Normal 28.4-34.[address] [facility] Comment on above: Performed By: #### T ABA HERNADEZ, BMP ####[address] , [facility]83 MCV Auto Entitic volume (RBC) 97.1 fL Normal 82.6-102.[address] [facility] Comment on above: Performed By: #### T ABA HERNADEZ, BMP ####[address] , [place] [address] Monocytes Auto #/vol (Bld) 0.46 10*3/uL Normal 0.10-1.[address] [facility] Comment on above: Performed By: #### T ABA HERNADEZ, BMP ####[address] [place] [address] Monocytes/100 WBC Auto (Bld) 8 % Normal 3-[address] [facility] Comment on above: Performed By: #### T ABA HERNADEZ, BMP ####[address] , [place] [address] Neutrophil (Seg) 64 % Normal 36-[address] [facility] Comment on above: Performed By: #### T ABA HERNADEZ, BMP ####[address] [place] [address] NRBC Automated 0.0 per 100 WBC Normal 0.[address] [facility] Comment on above: Performed By: #### T ABA HERNADEZ, BMP ####[address] , [facility]83 Platelet mean volume Auto Entitic volume (Bld) 9.0 fL Normal 8.1-13.[address] [facility] Comment on above: Performed By: #### T ABA HERNADEZ, BMP ####[address] , [facility]83 Platelets Auto #/vol (Bld) 157 10*3/uL Normal 138-[address] [facility] Comment on above: Performed By: #### T ABA HERNADEZ, BMP ####[address] , [facility]83 RBC Auto #/vol (Bld) 4.16 10*6/uL Low 4.21-5.77 [facility] Comment on above: Performed By: #### T ABA HERNADEZ, BMP ####[address] [place] [address] WBC Auto #/vol (Bld) 6.0 10*3/uL Normal 3.5-11.3 [facility] Comment on above: Performed By: #### T ABA HERNADEZ, BMP ####[address] , [place] [address] Auto Diff Performed NOT REPORTED Normal [facility] Comment on above: Performed By: #### T MARICARMEN CDP, BMP ####[address] , [facility]83 Platelets Auto #/vol (Bld) NOT REPORTED Normal [facility] Comment on above: Performed By: #### T ABA HERNADEZ, BMP ####[address] [place] [address] RBC morphology finding Nom (Bld) NOT REPORTED Normal [facility] Comment on above: Performed By: #### T ABA HERNADEZ, BMP ####[address] [place] [address] WBC Morphology NOT REPORTED Normal [facility] Comment on above: Performed By: #### T ABA HERNADEZ, BMP ####[address] [place] [address] Comp Metabol,Fastingon 06-15 (cont.) Normal [facility] Comment on above: Result Comment: Aver age GFR for 70 or more years old: 75 mL/min/1.73sq mChronic Kidney Disease: <60 mL/min/1.73sq mKidney failure: <15 mL/min/1.73sq meGFR calculated using average adult body mass. Additional eGFR calculator available at:http://www.[employer]/multiple_crcl_2012.htm Performed By: #### T ABA HERNADEZ, BMP ####[address] [place] [address] Albumin mass conc 4.0 g/dL Normal 3.5-5.[address] [facility] Comment on above: Performed By: #### T ABA HERNADEZ, BMP ####[address] [place] [address] Albumin/Globulin mass ratio 1.5 {ratio} Normal 1.0-2.[address] [facility] Comment on above: Performed By: #### T ABA HERNADEZ, BMP ####[address] [place] [address] Alkaline Phos 74 U/L Normal 40-[address] [facility] Comment on above: Performed By: #### T ABA HERNADEZ, BMP ####[address] [place] [address] ALT enzyme act/vol 10 U/L Normal 5-[address] [facility] Comment on above: Performed By: #### T ABA HERNADEZ, BMP ####[address] [place] [address] Anion gap 3 molar conc 11 mmol/L Normal 9-17 [facility] Comment on above: Performed By: #### T ABA HERNADEZ, BMP ####[address] [place] [address] AST enzyme act/vol 15 U/L Normal <[address] [facility] Comment on above: Performed By: #### T ABA HERNADEZ, BMP ####[address] [place] [address] Bilirubin Ql (U) 0.50 mg/dL Normal 0.3-1.[address] [facility] Comment on above: Performed By: #### T ABA HERNADEZ, BMP ####[address] [place] [address] BUN/CRE Ratio 9 Normal 9-[address] [facility] Comment on above: Performed By: #### T ABA HERNADEZ, BMP ####[address] [place] [address] Calcium mass conc 9.6 mg/dL Normal 8.6-10.[address] [facility] Comment on above: Performed By: #### T ABA HERNADEZ, BMP ####[address] [place] [address] Chloride molar conc 102 mmol/L Normal 98-[address] [facility] Comment on above: Performed By: #### T ABA HERNADEZ, BMP ####[address] [place] [address] CO2 molar conc 28 mmol/L Normal 20-[address] [facility] Comment on above: Performed By: #### T ABA HERNADEZ, BMP ####[address] [place] [address] Creatinine mass conc 1.71 mg/dL High 0.70-1.20 [facility] Comment on above: Performed By: #### T ABA HERNADEZ, BMP ####[address] [place] [address] GFR, Amer 48 mL/min Low >[address] [facility] Comment on above: Performed By: #### T ABA HERNADEZ, BMP ####[address] [place] [address] GFR,non Amer 40 mL/min Low >60 [facility] Comment on above: Performed By: #### T ABA HERNADEZ, BMP ####[address] [place] [address] Glucose mass conc 95 mg/dL Normal 70-[address] [facility] Comment on above: Performed By: #### T ABA HERNADEZ, BMP ####[address] [place] [address] Potassium molar conc 4.3 mmol/L Normal 3.7-5.3 [facility] Comment on above: Performed By: #### T ABA HERNADEZ, BMP ####[address] [place] [address] Protein mass conc 6.7 g/dL Normal 6.4-8.[address] [facility] Comment on above: Performed By: #### T ABA HERNADEZ, BMP ####[address] [place] [address] Sodium molar conc 141 mmol/L Normal 135-[address] [facility] Comment on above: Performed By: #### T ABA HERNADEZ, BMP ####[address] [place] [address] Staging: Normal [facility] Comment on above: Result Comment: Stag e 1: Some kidney damage normal GFRStage 2: Mild kidney damage GFR 60-89Stage 3: Moderate kidney damage GFR 30-59Stage 4: Severe kidney damage GFR 15-29Stage 5: Severe kidney damage GFR <15ESRD - chronic treatment by dialysis or transplant Performed By: #### T ABA HERNADEZ BMP ####[address] [place] [address] Urea nitrogen mass conc 15 mg/dL Normal 8-[address] [facility] Comment on above: Performed By: #### T ABA HERNADEZ, BMP ####[address] [place] [address] Lipid Prof, Fastingon 2017 Cholesterol in HDL mass conc 53 mg/dL Normal >[address] [facility] Comment on above: Result Comment: HDL Guidelines: <40 Undesirable 40-59 Borderline >59 Desirable Performed By: #### T ABA HERNADEZ, BMP ####[address] [place] [address] Cholesterol in LDL mass conc 55 mg/dL Normal 0-[address] [facility] Comment on above: Result Comment: LDL Guidelines: <100 Desirable 100-129 Near to/above Desirable 130-159 Borderline >159 UndesirableDirect (measured) LDL and calculated LDL are not interchangeable tests. Performed By: #### T ABA HERNADEZ, BMP ####[address] [place] [address] Cholesterol mass conc 137 mg/dL Normal <200 [facility] Comment on above: Result Comment: Chol esterol Guidelines: <200 Desirable 200-240 Borderline >240 Undesirable Performed By: #### T ABA HERNADEZ, BMP ####[address] [place] [address] Cholesterol.total/Chol esterol in HDL mass ratio 2.6 {ratio} Normal <[address] [facility] Comment on above: Performed By: #### T ABA HERNADEZ, BMP ####[address] [place] [address] Triglyceride,Fasting 147 mg/dL Normal <150 [facility] Comment on above: Result Comment: Trig lyceride Guidelines: <150 Desirable 150- 199 Borderline 200-499 High >499 Very high Based on AHA Guidelines for fasting triglyceride, July 2012. Performed By: #### T ABA HERNADEZ, BMP ####[address] , [place] [id number] Cholesterol in VLDL mass conc NOT REPORTED Normal 1-[address] [facility] Comment on above: Performed By: #### T ABA HERNADEZ, BMP ####[address] [place] [address] Thyroid Stim. Horm.on 2017 Thyrotropin Qn 0.43 m[IU]/L Normal 0.30-5.[address] [facility] Comment on above: Performed By: #### T ABA HERNADEZ, BMP ####[address] , [place] [phone] Thyroxine, Freeon 06-15-2018 Thyroxine, Free 1.37 ng/dL Normal 0.93-1.[address] [facility] Comment on above: Performed By: #### T ABA HERNADEZ, BMP ####[address] [place] [address] Group A Strep DNAon 05-05-20 18 Group A Strep DNA Specimen Description .THROAT SWABSpecial Requests NOT REPORTEDDirect Exam Negative: Specimen negative for Streptococcus pyogenes by DNA amplification.Report Status FINAL 05/05/2018 [facility] Comment on above: Performed By: #### G ASDNA ####[place] [address] [place], [place] [phone] [place] [address] Strep Gr A Direct Agon 05-04 S. pyogenes Ag IA Ql (Unsp spec) Specimen Description .THROATSpecial Requests NOT REPORTEDDirect Exam Rapid Strep A negative. A negative Rapid Group A Strep Screen result does not rule out the possibility of Group A Streptococci in the specimen. A Group A strep DNA test will be performed. Report Status FINAL 05/04/2018 [facility] Comment on above: Performed By: #### S GPA ####[address] [place] [address] XR CHEST (2 VW)on 05-04-2018 [...] by:FARRAH Shresthaigned by:Bijan Miranda MD05/04/inal result Normal [facility] H. pylori Antigenon 03-31-20 H. pylori Antigen Specimen Description .FECES Performed at [address] [place] [address] ([phone] Special Requests NOT REPORTEDDirect Exam NEGATIVE Performed at [address] [id number] [phone] Report Status FINAL 03/31/[address] [facility] Comment on above: Performed By: #### F HPY ####[address] [phone] [place] [address] CT ABDOMEN PELVIS W IV [...] by:FARRAH Zelayaigned by:Jessa Garcia MD03/13/inal result Normal [facility] Basic Metabolic Profon 03-12 (cont.) Normal [facility] Comment on above: Result Comment: Aver age GFR for 70 or more years old: 75 mL/min/1.73sq mChronic Kidney Disease: <60 mL/min/1.73sq mKidney failure: <15 mL/min/1.73sq meGFR calculated using average adult body mass. Additional eGFR calculator available at:http://www.[employer]/multiple_crcl_2012.htm Performed By: #### B MP ####[address] [place] [address] Anion gap 3 molar conc 12 mmol/L Normal - [facility] Comment on above: Performed By: #### B MP ####[address] [place] [address] BUN/CRE Ratio 13 Normal - [facility] Comment on above: Performed By: #### B MP ####[address] [place] [address] Calcium mass conc 9.2 mg/dL Normal 8.6-10.[address] [facility] Comment on above: Performed By: #### B MP ####[address] [place] [address] Chloride molar conc 98 mmol/L Normal 98-[address] [facility] Comment on above: Performed By: #### B MP ####[address] [place] [address] CO2 molar conc 27 mmol/L Normal 20-[address] [facility] Comment on above: Performed By: #### B MP ####[address] [place] [address] Creatinine mass conc 1.44 mg/dL High 0.70-1.20 [facility] Comment on above: Performed By: #### B MP ####[address] [place] [address] GFR, Amer 59 mL/min Low >[address] [facility] Comment on above: Performed By: #### B MP ####[address] [place] [address] GFR,non Amer 48 mL/min Low >60 [facility] Comment on above: Performed By: #### B MP ####[address] [place] [address] Glucose mass conc 98 mg/dL Normal 70-[address] [facility] Comment on above: Performed By: #### B MP ####[address] [place] [address] Potassium molar conc 4.4 mmol/L Normal 3.7-5.3 [facility] Comment on above: Performed By: #### B MP ####[address] [place] [address] Sodium molar conc 137 mmol/L Normal 135-[address] [facility] Comment on above: Performed By: #### B MP ####[address] [place] [address] Staging: Normal [facility] Comment on above: Result Comment: Stag e 1: Some kidney damage normal GFRStage 2: Mild kidney damage GFR 60-89Stage 3: Moderate kidney damage GFR 30-59Stage 4: Severe kidney damage GFR 15-29Stage 5: Severe kidney damage GFR <15ESRD - chronic treatment by dialysis or transplantPerformed at [address] [place], [place] [id number] [phone] Performed By: #### B MP ####[address] , [place] [phone] Urea nitrogen mass conc 18 mg/dL Normal 8-[address] [facility] Comment on above: Performed By: #### B MP ####[address] , [place] [phone] Metabolic Profon 10-14 (cont.) Normal [facility] Comment on above: Result Comment: Aver age GFR for 70 or more years old: 75 mL/min/1.73sq mChronic Kidney Disease: <60 mL/min/1.73sq mKidney failure: <15 mL/min/1.73sq meGFR calculated using average adult body mass. Additional eGFR calculator available at:http://www.[employer]/multiple_crcl_2012.htm Performed By: #### T ABA HERNADEZ, BMP ####[address] [place] [address] Anion gap 3 molar conc 13 mmol/L Normal 9-17 [facility] Comment on above: Performed By: #### T ABA HERNADEZ, BMP ####[address] , [place] [phone] BUN/CRE Ratio 16 Normal 9-[address] [facility] Comment on above: Performed By: #### T MARICARMEN CDP, BMP ####[address] [place] [address] Calcium mass conc 9.2 mg/dL Normal 8.6-10.[address] [facility] Comment on above: Performed By: #### T MARICARMEN, CDP, BMP ####[address] [place] [address] Chloride molar conc 94 mmol/L Low 98-[address] [facility] Comment on above: Performed By: #### T SH, CDP, BMP ####[address] [place] [address] CO2 molar conc 26 mmol/L Normal 20-[address] [facility] Comment on above: Performed By: #### T SH, CDP, BMP ####[address] [place] [address] Creatinine mass conc 1.60 mg/dL High 0.70-1.20 [facility] Comment on above: Performed By: #### T SH, CDP, BMP ####[address] [place] [address] GFR, Amer 52 mL/min Low >[address] [facility] Comment on above: Performed By: #### T SH, CDP, BMP ####[address] [place] [address] GFR,non Amer 43 mL/min Low >60 [facility] Comment on above: Performed By: #### T SH, CDP, BMP ####[address] [place] [address] Glucose mass conc 108 mg/dL High 70-[address] [facility] Comment on above: Performed By: #### T SH, CDP, BMP ####[address] [place] [address] Potassium molar conc 3.9 mmol/L Normal 3.7-5.3 [facility] Comment on above: Performed By: #### T SH, CDP, BMP ####[address] [place] [address] Sodium molar conc 133 mmol/L Low 135-[address] [facility] Comment on above: Performed By: #### T SH, CDP, BMP ####[address] [place] [address] Staging: Normal [facility] Comment on above: Result Comment: Stag e 1: Some kidney damage normal GFRStage 2: Mild kidney damage GFR 60-89Stage 3: Moderate kidney damage GFR 30-59Stage 4: Severe kidney damage GFR 15-29Stage 5: Severe kidney damage GFR <15ESRD - chronic treatment by dialysis or transplantPerformed at [address] [place] [address] Performed By: #### T ABA HERNADEZ, BMP ####[address] [place] [address] Urea nitrogen mass conc 25 mg/dL High 8-[address] [facility] Comment on above: Performed By: #### T ABA HERNADEZ BMP ####[address] [place] [address] CBC with Diffon 10-14-2017 Abs. Basophil 0.00 k/uL Normal 0.0-0.[address] [facility] Comment on above: Performed By: #### ABA OLSON, BMP ####[address] , [facility]83 Abs.Neutrophil (Seg) 8.99 k/uL High 1.8-7.7 [facility] Comment on above: Performed By: #### T ABA HERNADEZ, BMP ####[address] [place] [address] Basophils/100 WBC Auto (Bld) 0 % Normal 0-[address] [facility] Comment on above: Performed By: #### T ABA HERNADEZ, BMP ####[address] [place] [address] Eosinophils Auto #/vol (Bld) 0.21 10*3/uL Normal 0.0-0.[address] [facility] Comment on above: Performed By: #### T ABA HERNADEZ, BMP ####[address] [place] [address] Eosinophils/100 WBC Auto (Bld) 2 % Normal 0-[address] [facility] Comment on above: Performed By: #### T ABA HERNADEZ, BMP ####[address] [place] [address] Lymphocytes Auto #/vol (Bld) 1.18 10*3/uL Normal 1.0-4.[address] [facility] Comment on above: Performed By: #### T SH, CDP, BMP ####[address] [place] [address] Lymphocytes/100 WBC Auto (Bld) 11 % Low 24-[address] [facility] Comment on above: Performed By: #### T MARICARMEN, CDP, BMP ####[address] [place] [address] Monocytes Auto #/vol (Bld) 0.32 10*3/uL Normal 0.0-1.[address] [facility] Comment on above: Performed By: #### T ABA HERNADEZ, BMP ####[address] , [facility]83 Monocytes/100 WBC Auto (Bld) 3 % Normal 0-[address] [facility] Comment on above: Performed By: #### T ABA HERNADEZ, BMP ####[address] [place] [address] Morphology Interp Azar (Bld) Normal Normal [facility] Comment on above: Result Comment: Perf ormed at [address] [place] [address] Performed By: #### T SH, CDP, BMP ####[address] [place] [address] Neutrophil (Seg) 84 % High 36-[address] [facility] Comment on above: Performed By: #### T MARICARMEN CDP, BMP ####[address] [place] [address] Erythrocyte distribution width Auto Ratio (RBC) 14.0 % Normal 12.1-15.[address] [facility] Comment on above: Performed By: #### T SH, CDP, BMP ####[address] [place] [address] Hematocrit Auto Volume Fraction (Bld) 44.7 % Normal 41-[address] [facility] Comment on above: Performed By: #### T MARICARMEN CDP, BMP ####[address] [place] [address] Hemoglobin mass conc (Bld) 14.6 g/dL Normal 13.5-17.[address] [facility] Comment on above: Performed By: #### T ABA HERNADEZ, BMP ####[address] , [facility]83 MCH Auto Entitic mass (RBC) 32.2 pg Normal 26-[address] [facility] Comment on above: Performed By: #### T ABA HERNADEZ, BMP ####[address] , [place] [address] MCHC Auto mass conc (RBC) 32.6 g/dL Normal 31-[address] [facility] Comment on above: Performed By: #### T ABA HERNADEZ, BMP ####[address] [place] [id number] MCV Auto Entitic volume (RBC) 98.7 fL Normal 80-[address] [facility] Comment on above: Performed By: #### T ABA HERNADEZ, BMP ####[address] , [facility]83 Platelet mean volume Auto Entitic volume (Bld) 7.3 fL Normal 6.0-12.[address] [facility] Comment on above: Performed By: #### T ABA HERNADEZ, BMP ####[address] , [facility]83 Platelets Auto #/vol (Bld) 216 10*3/uL Normal 140-[address] [facility] Comment on above: Performed By: #### T ABA HERNADEZ, BMP ####[address] , [facility]83 RBC Auto #/vol (Bld) 4.53 10*6/uL Normal 4.5-5.9 [facility] Comment on above: Performed By: #### T SH, CDP, BMP ####[address] [place] [address] WBC Auto #/vol (Bld) 10.7 10*3/uL Normal 3.5-11.0 [facility] Comment on above: Performed By: #### T SH, CDP, BMP ####[address] [place] [address] Abs.Imm.Granulocyte NOT REPORTED Normal 0.00-0.30 [facility] Comment on above: Performed By: #### T SH, CDP, BMP ####[address] [place] [address] Auto Diff Performed NOT REPORTED Normal [facility] Comment on above: Performed By: #### T SH, CDP, BMP ####[address] [place] [address] Immature granulocytes #/vol (Bld) NOT REPORTED Normal [address] [facility] Comment on above: Performed By: #### T SH, CDP, BMP ####[address] [place] [address] Platelets Auto #/vol (Bld) NOT REPORTED Normal [facility] Comment on above: Performed By: #### T SH, CDP, BMP ####[address] [place] [id number] RBC morphology finding Nom (Bld) NOT REPORTED Normal [facility] Comment on above: Performed By: #### T SH, CDP, BMP ####[address] [place] [id number] WBC Morphology NOT REPORTED Normal [facility] Comment on above: Performed By: #### T SH, CDP, BMP ####[address] [place] [address] Thyroid Stim. Horm.on 2016 Thyrotropin Qn 0.23 m[IU]/L Low 0.30-5.[address] [facility] Comment on above: Result Comment: Perf ormed at [address] [place] [id number] [phone] Performed By: #### T ABA HERNADEZ, BMP ####[address] 1848[address] PSA, [employer] 10-01-2017 Prostatic Spec. Ag 0.42 ug/L Normal <4.[address] [facility] Comment on above: Result Comment: The [employer] ECLIA assay is used. Results obtained with different assay methods cannot be used interchangeably.Performed at [address] [place] [address] [phone] Performed By: #### P SAD ####[address] [place] [address] Vital Signs Date Time Vital Sign Value Performing Clinician Facility 08-12-2024 08:30-0400 Blood Pressure Location Elizabeth Victoria [facility] 08-12-2024 08:30-0400 Diastolic blood pressure 72 mm[Hg] Elizabeth Victoria [facility] 08-12-2024 08:30-0400 Heart rate 70 /min Elizabeth Victoria [facility] 08-12-2024 08:30-0400 Systolic blood pressure 142 mm[Hg] Elizabeth Victoria [facility] 10-18-2023 12:16-0500 Heart rate 84 /min [facility] 10-18-2023 11:43-0500 Body height 185.42 cm [facility] 10-18-2023 11:43-0500 Body temperature 98.3 [degF] [facility] 10-18-2023 11:43-0500 Body weight 90.9 kg [facility] 10-18-2023 11:43-0500 Diastolic blood pressure 66 mm[Hg] [facility] 10-18-2023 11:43-0500 Respiratory rate 21 /min [facility] 10-18-2023 11:43-0500 SaO2% (BldA) [Mass fraction] 97 % [facility] 10-18-2023 11:43-0500 Systolic blood pressure 142 mm[Hg] [facility] 10-18-2023 10:20-0500 Body height 185.42 cm Brittany Marjorie Other [facility] Other 10-18-2023 10:20-0500 Body mass index (BMI) [Ratio] 26.36 kg/m2 Brittany Marjorie Other [facility] Other 10-18-2023 10:20-0500 Body temperature 98.9 [degF] Brittany Marjorie Other [facility] Other 10-18-2023 10:20-0500 Body weight 90.63 kg Brittany Marjorie Other [facility] Other 10-18-2023 10:20-0500 Respiratory rate 18 /min Brittany Adenmond Other [facility] Other 10-18-2023 10:20-0500 SaO2% (BldA) [Mass fraction] 99 % Brittany Marjorie Other [facility] Other Encounters Encounter Date Encounter Type Care Provider Facility Start: 09-10-2024 End: 09-10-2024 ambulatory Claritza YARBROUGH Facility:[facility] Start: 09-10-2024 End: 09-10-2024 Patient encounter procedure [facility] Start: 09-07-2024 End: 09-07-2024 ambulatory Elizabeth J Galea Facility:[facility] Start: 09-07-2024 End: 09-07-2024 Patient encounter procedure Elizabeth J Galea [facility] Start: 09-02-2024 ambulatory Elizabeth J Galea Facility :[facility] Start: 08-18-2024 End: 08-18-2024 ambulatory Elizabeth J Galea Facility:[facility] Start: 08-18-2024 End: 08-18-2024 Patient encounter procedure Elizabeth J Galea [facility] Start: 08-12-2024 End: 08-12-2024 ambulatory Elizabeth J Galea Facility:[facility] Start: 08-12-2024 End: 08-12-2024 Patient encounter procedure Elizabeth J Galea [facility] Start: 06-16-2024 ambulatory Elizabeth Galea Facility:[facility] Start: 06-10-2024 End: 06-10-2024 ambulatory DEBRA MUNGUIA Not Available Start: 02-26-2024 End: 02-26-2024 ambulatory DEBRA MUNGUIA Not Available Start: 11-20-2023 End: 11-20-2023 ambulatory DEBRA MUNGUIA Not Available Start: 10-18-2023 End: 10-18-2023 ambulatory Brittany Amador Other [facility] Other Start: 10-18-2023 Patient encounter procedure Brittany Amador [facility] Start: 10-18-2023 End: 10-18-2023 Emergency department patient visit Michael Amador Facility:[facility] Start: 10-18-2023 End: 10-18-2023 Emergency department [facility] [facility] Work Phone: Start: 03-10-[address] THEE MCGUIRE Facil ity:H1 Start: 10-30-2022 End: 10-30-[address] THEE MCGUIRE Facility:H1 Start: 09-10-2022 End: 09-10-[address] THEE MCGUIRE Facility:H1 Start: 05-13-2022 End: 05-14-[address] THEE MCGUIRE Facility:H1 Start: 02-03-2022 End: 02-07-2022 Evaluation and management of inpatient PHYSICIAN UNKNOWN Facility:[facility] [place] Start: 08-17-2018 End: 08-31-2018 [facility] Start: 08-16-2018 End: 08-16-2018 Emergency department patient visit [facility] Start: 08-06-2018 End: 08-06-2018 Emergency department patient visit [facility] Start: 08-03-2018 End: 08-04-2018 Patient encounter [facility] Start: 06-15-2018 End: 06-16-2018 Patient encounter ISIDRO [facility] Start: 05-04-2018 End: 05-04-2018 Emergency department patient visit [facility] Start: 03-30-2018 End: 03-31-2018 Patient encounter RUBEN SILVA [facility] Start: 03-27-2018 End: 03-28-2018 [facility] Start: 03-12-2018 End: 03-15-2018 Patient encounter RUBEN RIOS [facility] Start: 10-14-2017 End: 10-15-2017 Patient encounter RUBEN RIOS [facility] Start: 10-01-2017 End: 10-02-2017 Patient encounter [facility] Procedures Date Procedure Procedure Detail Performing Clinician Start: 10-18-2023 CT of paranasal sinu s without contrast Start: 02-04-2022 Antibody screen PHYSICI AN UNKNOWN Comment on above: Performed By: #### [id number] #### [facility] [address] Start: 08-31-2018 DISCHARGE PATIENT PJ PUGA Start: 08-19-2018 Microscopic urinalysis PJ PUGA Start: 08-19-2018 URINE RT REFLEX TO CULTURE PJ PUGA Start: 08-17-2018 DIETARY NUTRITION SUPPLEMENTS PJ PUGA Start: 08-17-2018 PATIENT STATUS (FROM ED OR OR/PROCEDURAL) PJ PUGA Start: 08-17-2018 IP CONSULT TO DENTAL INSTRUMENT MAKER AL MEDICINE PJ PUGA Start: 08-17-2018 DIET [...] CODE PJ MUSTAFA Start: 08-17-2018 MONITOR PJ GRAHAM UA Start: 08-16-2018 URINE DRUG SCREEN PATRI CK YARBROUGH Start: 08-16-2018 Urnls dip stick/tabl et reagent auto microscopy [facility] Start: 08-16-2018 EKG 12-LEAD CLARITZA WA TERS Start: 08-16-[address] [facility] YARBROUGH Start: 08-16-2018 Assay of free thyroxine [facility] Start: 08-16-2018 Assay of thyroid sti mulating hormone tsh [facility] Start: 08-16-2018 Blood count complete auto&auto difrntl wbc CLARITZA YARBROUGH Start: 08-16-2018 Comprehensive metabolic panel [facility] Start: 08-16-2018 ETHANOL CLARITZA WA TERS Start: 08-16-2018 SALICYLATE LEVEL HEMANT K YARBROUGH Start: 10-21-2018 TELEMETRY MONITORING PA TRICK YARBROUGH Start: 08-16-2018 VITAL SIGNS CLARITZA TODD TERS Start: 08-16-2018 SUICIDE PRECAUTIONS PAT YARBROUGH Start: 08-06-2018 Ct abdomen & pelvis w/o contrast material CLARITZA YARBROUGH Start: 08-06-2018 Ct head/brain w/o co ntrast material CLARITZA YARBROUGH Start: 08-06-2018 Microscopic urinalysis CLARITZA YARBROUGH Start: 08-06-2018 Urnls dip stick/tabl et rgnt auto w/o microscopy CLARITZA YARBROUGH Start: 08-06-2018 INSERT PERIPHERAL IV PA TRICK YARBROUGH Start: 08-06-2018 EKG 12-LEAD CLARITZA TODD TERS Start: 08-06-2018 Blood count complete auto&auto difrntl wbc CLARITZA YARBROUGH Start: 08-06-2018 Comprehensive metabolic panel CLARITZA YARBROUGH Start: 08-06-2018 LACTIC ACID, PLASMA PAT YARBROUGH Start: 08-06-2018 Prothrombin time HEMANT K [...] 10-18-2023 Bacteria identified in Blood by Culture [facility] Start: 10-18-2023 Superficial Wound Culture Superficial Wound Culture [facility] Bacteria identified in Unspecified specimen by Aerobe culture [facility] Patient Education Cellulitis (Sk in Infection), Adult (DC) [facility] Work Phone: Patient referral [facility] Work Phone: Payers Date Payer Category Payer Medicare [id number] 2023 Self-pay 2023 Unknown [id number] 2015 Medicare [id number] 2012 Unknown [id number] 1959 Medicare [id number] 1959 Private Health Insurance [id number] 1946 Unknown [id number] 2.16.840.1.782890.3.579.2.173 1946 Unknown [id number] 2.16.840.1.553870.3.579.2.173 1946 Unknown [id number] 2.16.840.1.134592.3.579.2.173 1946 Unknown [id number] 2.16.840.1.551720.3.579.2.173 1946 Unknown [id number] 2.16.840.1.289674.3.579.2.173 1946 Unknown [id number] 2.16.840.1.668003.3.579.2.173 1946 Unknown [id number] 2.16.840.1.605869.3.579.2.173 1946 Unknown [id number] 2.16.840.1.682395.3.579.2.173 1946 Unknown [id number] 2.16.840.1.557098.3.579.2.173 1946 Unknown [id number] 2.16.840.1.512749.3.579.2.173 1946 Unknown [id number] 2.16.840.1.575685.3.579.2.173 1946 Unknown [id number] 2.16.840.1.752128.3.579.2.176 1946 Unknown [id number] 2.16.840.1.824440.3.579.2.647 1946 Unknown [id number] 2.16.840.1.627532.3.579.2.593 1946 Unknown [id number] 2.16.840.1.607727.3.579.2.593 1946 Unknown [id number] 2.16.840.1.247772.3.579.2.593 1946 Unknown [id number] 2.16.840.1.270859.3.579.2.593 1946 Unknown [id number] 2.16.840.1.350437.3.579.2.125 9 1946 Unknown [id number] 2.16.840.1.166476.3.579.2.125 9 1946 Unknown [id number] 2.16.840.1.909768.3.579.2.125 9 1946 Unknown [id number] 2.16.840.1.152001.3.579.2.727 1946 Unknown [id number] 2.16.840.1.375886.3.579.2.727 1946 Unknown [id number] 2.16.840.1.365723.3.579.2.727 1946 Unknown [id number] 2.16.840.1.718378.3.579.2.727 1946 Unknown [id number] 2.16.840.1.013918.3.579.2.727 Unknown Delia BC/BS [id number] Unknown HCAP/HFA/FAP Active M [id number] Unknown [id number] 2.16.840.1.067038.3.579.2.531 Social History Date Type Detail Facility Start: 10-18-2023 End: 08-12-2024 Tobacco smoking status NHIS Never smoked tobacco (finding) [facility] Start: 1945 Sex Assigned At Male F [facility] Sex Assigned At [facility] Tobacco smoking status Never [facility] Functional Status Date Assessment Result Facility 08-12-2024 Functional Status N/A [facility] Clinical Notes 02-07-2022 to 09-13-2024 Note Date & Type Note Facility 09-13-2024 Note Urology Office/Clini c Note Chief Complaint referral- urinary retention- has augustin HPI Staff 78 yr old male here with referral from Thee Mcguire D.O. for Urinary retention. Pt has seen Dr Yarbrough in the past? Pt has augustin. pt would like to discuss getting Augustin removed. pt states he has some important events coming up and cannot go if he has the augustin in. pt states this started 08/03/24, he was away for the night and he found he could not urinate, so he went to ER, [facility], they cathed him and filled a urinal. pt states he is not having issues with augustin, but would like to discuss other options for emptying bladder. History of Present Illness Staff HPI reviewed and agree. Review of Systems PHQ Score Initial Depression Screen Score: 0 SCORE no fever, chills, malaise, myalgia. no rash/lesions. no chest pain, palpitations, or SOB. no abdominal pain, nausea, vomiting. 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 Pt has augustin today from [facility] ER on 08/03/24. Previous [address] Yarbrough pt. 08/03/24 - BUN 31, Cre 2.51, GFR 25 1. Urinary retention (R33.9: Retention of urine, unspecified) 08/03/24 CT abd/pelvis w/o con - stable 4.8mm Bosniak 2 R renal cyst, 3.1, nonobstructive L renal calculus, circumferential thickening of the wall of the urinary bladder Pt here for ER f/u and referral from PCP for urinary retention. Pt went to [facility] ER on 08/03 for inability to urinate and abdominal pain. Pt was found to be severely constipated and had over 600ml urine return with augustin placement. Urine was not infected at ER. CT showed large amount of stool within the colon. Pt reports that he remains constipated today but he would like the augustin removed. Discussed with patient that since he remains constipated, if we removed augustin he would likely go into retention again. Pt reports that he has a concert coming up and would like to go to orthodoxy without the large augustin bag. Advised pt we could change it to leg bag today and teach him how to switch to large bag at night. Pt agreeable. Discussed bowel management with patient and not being able to remove augustin until he is having regular bowel movements. Pt verbalizes understanding. Also briefly discussed repeating cystoscopy with Dr. Yarbrough due to recent retention episode. Will assess after patient's bowels are regular and augustin is removed. Pt being scheduled for nurse visit fill/pull in 3 weeks. If bowels are regular, may complete fill and pull. Will schedule cystoscopy with Dr. Yarbrough at that time. The risks and benefits for cystoscopy have been discussed. The risks include bleeding, infection, and irritation of the bladder and urinary channel, among others. The patient, after being informed of procedural details and after questions have been answered, wishes to proceed. Full informed consent has been obtained. Will order Local anesthesia. -Augustin management/teaching today with leg bag -Augustin to remain in place for 3 weeks while patient manages his constipation -Aggressive bowel management -If pt is no longer constipated, may complete fill/pull in 3 weeks -If pt passes fill/pull, will schedule pt for cysto with Dr. Yarbrough due to BPH -If pt fails fill/pull, will need to replace augustin and schedule cysto/uros with Dr. Yarbrough -F/U pending above Ordered: E&M of New Patient Moderate 45-59 Min 09328 2. Constipation (K59.00: Constipation, unspecified) 08/03/24 CT abd/pelvis w/o con - large amount of stool within the colon -See #1 Ordered: E&M of New Patient Moderate 45-59 Min 88713 3. 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 Yarbrough Pt is currently taking Flomax BID and Dutasteride daily. Discussed with patient that he is on max BPH medication therapy and even though he had previous TURP, prostate tissue can have regrowth. Next step would be cystoscopy with Dr. Yarbrough pending above. Pt verbalizes understanding. -Continue Flomax 0.4mg PO BID -Continue Dutasteride 0.5mg PO daily -See #1 Ordered: E&M of New Patient Moderate 45-59 Min 37523 4. Kidney stone (N20.0: Calculus of kidney) 08/03/24 CT abd/pelvis w/o con - 3.1mm nonobstructive L renal calculus Ordered: E&M of New Patient Moderate 45-59 Min 50364 5. Renal cyst (N28.1: Cyst of kidney, acquired) 08/03/24 CT abd/pelvis w/o con - stable 4.8mm Bosniak 2 R renal cyst -BRIDGER in 6-12 months for surveillance Ordered: E&M of (more content not included)... [facility] Comment on above: Result Comment: Elec tronically Signed By: Julien WALLS, Elizabeth Foote\.br\Date and Time Signed: 09/13/24 15:28 EST 09-10-2024 Hospital Discharge instructions Patient Education 09/10/2024 10:34:28 Urodynamic Testing Urodynamic Testing Urodynamic tests are done to determine how well your lower urinary tract is working. The lower urinary tract includes your bladder and the part of your body that drains urine from the bladder (urethra). When your kidneys filter your blood, urine is stored in your bladder until you feel the urge to urinate. Urination requires coordination between the nerves and muscles of your bladder and urethra. When your lower urinary tract is working well, you should be able to: Start urinating when your bladder is full. Empty your bladder completely. Control the flow of your urine. Why do I need urodynamic testing? You may need urodynamic testing to help find the cause of any of these problems: Leaking urine (incontinence). Problems starting or stopping your urine flow. Frequent or painful urination. Frequent urinary tract infections. Being unable to empty your bladder completely. Having strong urges to pass urine (urgency). Having a weak flow of urine. What are the risks? Generally, these tests are safe. However, some of the tests have risks, including: Discomfort. Frequent urge to urinate. Bleeding. Infection. Allergic reactions to medicines or dyes (contrast material). What happens before the test? Ask your health care provider about changing or stopping your regular medicines. This is especially important if you are taking diabetes medicines or blood thinners. You may be asked to avoid urinating before coming to the test so that you arrive with a full bladder. Tell a health care provider about: ?Any allergies you have. ?All medicines you are taking, including vitamins, herbs, eye drops, creams, and biqz-dsk-rtylxjl medicines. ?Whether you are or may be . What happens during the test? You may have various urodynamic tests. The tests may be done separately or may all be done during one visit. You may be given an antibiotic medicine before or after testing to help prevent infection. The types of tests that may be done include: Uroflowmetry This test measures how much urine you pass and how long it takes to pass. You will urinate into a certain type of toilet or device (flowmeter). The device will measure the volume and the time of your urine flow. These measurements will be sent to a computer that creates a graph of your urine flow. Postvoid residual measurement This test measures how much urine is left in your bladder after you urinate. The test may be done with ultrasound. In this method, sound waves and a computer will be used to create an image of your bladder. The test can also be done by inserting a thin, flexible tube (catheter) into your bladder after you urinate. The remaining urine will be removed through the catheter so it can be measured. Remaining urine will be measured in milliliters (mL). If you have more than 100 mL left in your bladder after you urinate, your bladder is not emptying as it should. Cystometric testing This test uses a type of bladder catheter that can measure pressure. You may be given a medicine to numb the area (local anesthetic). The area around the opening of your urethra will be cleaned. A urinary catheter will be passed through your urethra into your bladder and used to empty your bladder completely. A measuring catheter will be placed, and your bladder will be filled with warm, germ-free (sterile) water. Pressure measurements will be taken: ?As your bladder fills. ?When you feel the need to urinate. ?As your bladder is emptied. You may be asked to cough or bear down to check for leakage. In some cases, your bladder may be filled with a material that shows up on X-rays (contrast material) so that X-ray pictures can be taken during the test. Electromyogram This test measures the electrical activity of the nerves and muscles of your bladder and the opening of your urethra. Sticky patches (electrodes) will be placed near your rectum and urethra to measure electrical activity. The measurements will show how well your nerves are communicating with your muscles. What can I expect after the test? You should be able to go home right away and do your usual activities. You may be told to drink a glass of water every 30 minutes for the first 2 hours after testing. Taking a warm bath or using warm, wet cloths (warm compresses) may relieve any discomfort near your urethra. What do the results mean? Talk with your health care provider about what your results mean. Some common causes for abnormal results from urodynamic tests include: Enlarged prostate in men. Overactive bladder. Urinary tract infection. Nervous system diseases. Spinal cord damage. Questions to ask your health care provider Ask your health care provider, or the department that is doing the test: When will my results be ready? How will I get my results? What are my treatment options? What other tests do I need? What are my next steps? Contact a health care provider if: You have pain. You have blood in your urine. You have chills. You have a fever. Summary Urodynamic tests are done to determine how well your lower urinary tract is working. The lower urinary tract includes your bladder and urethra. You may need urodynamic testing to help find the cause of various problems with urination, such as leaking urine (incontinence) or problems starting or stopping your urine flow. You may have various urodynamic tests. The tests may be done separately or may all be done during one testing visit. Talk with your health care provider about what your results mean. Contact your health care provider if you have pain, chills, a fever, or blood in your urine. This information is not intended to replace advice given to you by your health care provider. Make sure you discuss any questions you have with your health care provider. Document Revised: 06/26/2022 Document Reviewed: 05/18/2021 [employer] Patient Education 2023 [employer]. 09/10/2024 10:34:17 Cystoscopy Cystoscopy Cystoscopy is a procedure that is used to help diagnose and sometimes treat conditions that affect the lower urinary tract. The lower urinary tract includes the bladder and the urethra. The urethra is the tube that drains urine from the bladder. Cystoscopy is done using a thin, tube-shaped instrument with a light and camera at the end (cystoscope). The cystoscope may be hard or flexible, depending on the goal of the procedure. The cystoscope is inserted through the urethra, into the bladder. Cystoscopy may be recommended if you have: Urinary tract infections that keep coming back. Blood in the urine (hematuria). An inability to control when you urinate (urinary incontinence) or an overactive bladder. Unusual cells found in a urine sample. A blockage in the urethra, such as a urinary stone. Painful urination. An abnormality in the bladder found during an intravenous pyelogram (IVP) or CT scan. Cystoscopy may also be done to remove a sample of tissue to be examined under a microscope (biopsy). Tell a health care provider about: Any allergies you have. All medicines you are taking, including vitamins, herbs, eye drops, creams, and odjv-fbp-bogygcv medicines. Any problems you or family members have had with anesthetic medicines. Any blood disorders you have. Any surgeries you have had. Any medical conditions you have. Whether you are or may be . What are the risks? Generally, this is a safe procedure. However, problems may occur, including: Infection. Bleeding. Allergic reactions to medicines. Damage to other structures or organs. What happens before the procedure? Medicines Ask your health care provider about: Changing or stopping your regular medicines. This is especially important if you are taking diabetes medicines or blood thinners. Taking medicines such as aspirin and ibuprofen. These medicines can thin your blood. Do not take these medicines unless your health care provider tells you to take them. Taking sbkx-wgw-pffvaml medicines, vitamins, herbs, and supplements. Tests You may have an exam or testing, such as: X-rays of the bladder, urethra, or kidneys. CT scan of the abdomen or pelvis. Urine tests to check for signs of infection. General instructions Follow instructions from your health care provider about eating or drinking restrictions. Ask your health care provider what steps will be taken to help prevent infection. These steps may include: ?Washing skin with a germ-killing soap. ?Taking antibiotic medicine. Plan to have a responsible adult take you home from the hospital or clinic. What happens during the procedure? You will be given one or more of the following: ?A medicine to help you relax (sedative). ?A medicine to numb the area (local anesthetic). The area around the opening of your urethra will be cleaned. The cystoscope will be passed through your urethra into your bladder. Germ-free (sterile) fluid will flow through the cystoscope to fill your bladder. The fluid will stretch your bladder so that your health care provider can clearly examine your bladder miramontes. Your doctor will look at the urethra and bladder. Your doctor may take a biopsy or remove stones. The cystoscope will be removed, and your bladder will be emptied. The procedure may vary among health care providers and hospitals. What can I expect after the procedure? After the procedure, it is common to have: Some soreness or pain in your abdomen and urethra. Urinary symptoms. These include: ?Mild pain or burning when you urinate. Pain should stop within a few minutes after you urinate. This may last for up to 1 week. ?A small amount of blood in your urine for several days. ?Feeling like you need to urinate but producing only a small amount of urine. Follow these instructions at home: Medicines Take txmo-lce-moxvqck and prescription medicines only as told by your health care provider. If you were prescribed an antibiotic medicine, take it as told by your health care provider. Do not stop taking the antibiotic even if you start to feel better. General instructions Return to your normal activities as told by your health care provider. Ask your health care provider what activities are safe for you. If you were given a sedative during the procedure, it can affect you for several hours. Do not drive or operate machinery until your health care provider says that it is safe. Watch for any blood in your urine. If the amount of blood in your urine increases, call your health care provider. Follow instructions from your health care provider about eating or drinking restrictions. If a tissue sample was removed for testing (biopsy) during your procedure, it is up to you to get your test results. Ask your health care provider, or the department that is doing the test, when your results will be ready. Drink enough fluid to keep your urine pale yellow. Keep all follow-up visits. This is important. Contact a health care provider if: You have pain that gets worse or does not get better with medicine, especially pain when you urinate. You have trouble urinating. You have more blood in your urine. Get help right away if: You have blood clots in your urine. You have abdominal pain. You have a fever or chills. You are unable to urinate. Summary Cystoscopy is a procedure that is used to help diagnose and sometimes treat conditions that affect the lower urinary tract. Cystoscopy is done using a thin, tube-shaped instrument with a light and camera at the end. After the procedure, it is common to have some soreness or pain in your abdomen and urethra. Watch for any blood in your urine. If the amount of blood in your urine increases, call your health care provider. If you were prescribed an antibiotic medicine, take it as told by your health care provider. Do not stop taking the antibiotic even if you start to feel better. This information is not intended to replace advice given to you by your health care provider. Make sure you discuss any questions you have with your health care provider. Document Revised: 06/26/2022 Document Reviewed: 05/25/2021 [employer] Patient Education 2023 [employer] [facility] Tana 09-10-2024 Note Patient Education Procedures Urodynamic Testing Urodynamic tests are done to determine how well your lower urinary tract is working. The lower urinary tract includes your bladder and the part of your body that drains urine from the bladder (urethra). When your kidneys filter your blood, urine is stored in your bladder until you feel the urge to urinate. Urination requires coordination between the nerves and muscles of your bladder and urethra. When your lower urinary tract is working well, you should be able to: ??? Start urinating when your bladder is full. ??? Empty your bladder completely. ??? Control the flow of your urine. Why do I need urodynamic testing? You may need urodynamic testing to help find the cause of any of these problems: ??? Leaking urine (incontinence). ??? Problems starting or stopping your urine flow. ??? Frequent or painful urination. ??? Frequent urinary tract infections. ??? Being unable to empty your bladder completely. ??? Having strong urges to pass urine (urgency). ??? Having a weak flow of urine. What are the risks? Generally, these tests are safe. However, some of the tests have risks, including: ??? Discomfort. ??? Frequent urge to urinate. ??? Bleeding. ??? Infection. ??? Allergic reactions to medicines or dyes (contrast material). What happens before the test? Ask your health care provider about changing or stopping your regular medicines. This is especially important if you are taking diabetes medicines or blood thinners. ??? You may be asked to avoid urinating before coming to the test so that you arrive with a full bladder. ??? Tell a health care provider about: ? Any allergies you have. ? All medicines you are taking, including vitamins, herbs, eye drops, creams, and ikgi-ema-wecbnof medicines. ? Whether you are or may be . What happens during the test? You may have various urodynamic tests. The tests may be done separately or may all be done during one visit. You may be given an antibiotic medicine before or after testing to help prevent infection. The types of tests that may be done include: Uroflowmetry This test measures how much urine you pass and how long it takes to pass. ??? You will urinate into a certain type of toilet or device (flowmeter). ??? The device will measure the volume and the time of your urine flow. ??? These measurements will be sent to a computer that creates a graph of your urine flow. Postvoid residual measurement This test measures how much urine is left in your bladder after you urinate. ??? The test may be done with ultrasound. In this method, sound waves and a computer will be used to create an image of your bladder. ??? The test can also be done by inserting a thin, flexible tube (catheter) into your bladder after you urinate. The remaining urine will be removed through the catheter so it can be measured. ??? Remaining urine will be measured in milliliters (mL). If you have more than 100 mL left in your bladder after you urinate, your bladder is not emptying as it should. Cystometric testing This test uses a type of bladder catheter that can measure pressure. ??? You may be given a medicine to numb the area (local anesthetic). ??? The area around the opening of your urethra will be cleaned. ??? A urinary catheter will be passed through your urethra into your bladder and used to empty your bladder completely. ??? A measuring catheter will be placed, and your bladder will be filled with warm, germ-free (sterile) water. ??? Pressure measurements will be taken: ? As your bladder fills. ? When you feel the need to urinate. ? As your bladder is emptied. ??? You may be asked to cough or bear down to check for leakage. ??? In some cases, your bladder may be filled with a material that shows up on X-rays (contrast material) so that X-ray pictures can be taken during the test. Electromyogram This test measures the electrical activity of the nerves and muscles of your bladder and the opening of your urethra. ??? Sticky patches (electrodes) will be placed near your rectum and urethra to measure electrical activity. ??? The measurements will show how well your nerves are communicating with your muscles. What can I expect after the test? You should be able to go home right away and do your usual activities. ??? You may be told to drink a glass of water every 30 minutes for the first 2 hours after testing. ??? Taking a warm bath or using warm, wet cloths (warm compresses) may relieve any discomfort near your urethra. What do the results mean? Talk with your health care provider about what your results mean. Some common causes for abnormal results from urodynamic tests include: ??? Enlarged prostate in men. ??? Overactive bladder. ??? Urinary tract infection. ??? Nervous system diseases. ??? Spinal cord damage. Questions to ask your health care provide (more content not included)... [facility] 08-12-2024 Hospital Discharge instructions Patient Education 08/12/2024 09:55:24 Benign Prostatic Hyperplasia Benign Prostatic Hyperplasia Benign prostatic hyperplasia (BPH) is an enlarged prostate gland that is caused by the normal aging process. The prostate may get bigger as a man gets older. The condition is not caused by cancer. The prostate is a walnut-sized gland that is involved in the production of semen. It is located in front of the rectum and below the bladder. The bladder stores urine. The urethra carries stored urine out of the body. An enlarged prostate can press on the urethra. This can make it harder to pass urine. The buildup of urine in the bladder can cause infection. Back pressure and infection may progress to bladder damage and kidney (renal) failure. What are the causes? This condition is part of the normal aging process. However, not all men develop problems from this condition. If the prostate enlarges away from the urethra, urine flow will not be blocked. If it enlarges toward the urethra and compresses it, there will be problems passing urine. What increases the risk? This condition is more likely to develop in men older than 50 years. What are the signs or symptoms? Symptoms of this condition include: Getting up often during the night to urinate. Needing to urinate frequently during the day. Difficulty starting urine flow. Decrease in size and strength of your urine stream. Leaking (dribbling) after urinating. Inability to pass urine. This needs immediate treatment. Inability to completely empty your bladder. Pain when you pass urine. This is more common if there is also an infection. Urinary tract infection (UTI). How is this diagnosed? This condition is diagnosed based on your medical history, a physical exam, and your symptoms. Tests will also be done, such as: A post-void bladder scan. This measures any amount of urine that may remain in your bladder after you finish urinating. A digital rectal exam. In a rectal exam, your health care provider checks your prostate by putting a lubricated, gloved finger into your rectum to feel the back of your prostate gland. This exam detects the size of your gland and any abnormal lumps or growths. An exam of your urine (urinalysis). A prostate specific antigen (PSA) screening. This is a blood test used to screen for prostate cancer. An ultrasound. This test uses sound waves to electronically produce a picture of your prostate gland. Your health care provider may refer you to a specialist in kidney and prostate diseases (urologist). How is this treated? Once symptoms begin, your health care provider will monitor your condition (active surveillance or watchful waiting). Treatment for this condition will depend on the severity of your condition. Treatment may include: Observation and yearly exams. This may be the only treatment needed if your condition and symptoms are mild. Medicines to relieve your symptoms, including: ?Medicines to shrink the prostate. ?Medicines to relax the muscle of the prostate. Surgery in severe cases. Surgery may include: ?Prostatectomy. In this procedure, the prostate tissue is removed completely through an open incision or with a laparoscope or robotics. ?Transurethral resection of the prostate (TURP). In this procedure, a tool is inserted through the opening at the tip of the penis (urethra). It is used to cut away tissue of the inner core of the prostate. The pieces are removed through the same opening of the penis. This removes the blockage. ?Transurethral incision (TUIP). In this procedure, small cuts are made in the prostate. This lessens the prostate's pressure on the urethra. ?Transurethral microwave thermotherapy (TUMT). This procedure uses microwaves to create heat. The heat destroys and removes a small amount of prostate tissue. ?Transurethral needle ablation (TUNA). This procedure uses radio frequencies to destroy and remove a small amount of prostate tissue. ?Interstitial laser coagulation (ILC). This procedure uses a laser to destroy and remove a small amount of prostate tissue. ?Transurethral electrovaporization (TUVP). This procedure uses electrodes to destroy and remove a small amount of prostate tissue. ?Prostatic urethral lift. This procedure inserts an implant to push the lobes of the prostate away from the urethra. Follow these instructions at home: Take fhgy-wmx-wcahyee and prescription medicines only as told by your health care provider. Monitor your symptoms for any changes. Contact your health care provider with any changes. Avoid drinking large amounts of liquid before going to bed or out in public. Avoid or reduce how much caffeine or alcohol you drink. Give yourself time when you urinate. Keep all follow-up visits. This is important. Contact a health care provider if: You have unexplained back pain. Your symptoms do not get better with treatment. You develop side effects from the medicine you are taking. Your urine becomes very dark or has a bad smell. Your lower abdomen becomes distended and you have trouble passing urine. Get help right away if: You have a fever or chills. You suddenly cannot urinate. You feel light-headed or very dizzy, or you faint. There are large amounts of blood or clots in your urine. Your urinary problems become hard to manage. You develop moderate to severe low back or flank pain. The flank is the side of your body between the ribs and the hip. These symptoms may be an emergency. Get help right away. Call 911. Do not wait to see if the symptoms will go away. Do not drive yourself to the hospital. Summary Benign prostatic hyperplasia (BPH) is an enlarged prostate that is caused by the normal aging process. It is not caused by cancer. An enlarged prostate can press on the urethra. This can make it hard to pass urine. This condition is more likely to develop in men older than 50 years. Get help right away if you suddenly cannot urinate. This information is not intended to replace advice given to you by your health care provider. Make sure you discuss any questions you have with your health care provider. Document Revised: 05/01/2022 Document Reviewed: 05/01/2022 [employer] Patient Education 2023 [employer] Follow Up Care 08/09/2024 13:41:59 With:LINNEA PICKARD, Claritza Cee, URL Address: [address] [place] [phone]- When: Unknown Comments:pending fill/pull [facility] 08-12-2024 Note Patient Education Urology Benign Prostatic Hyperplasia Benign prostatic hyperplasia (BPH) is an enlarged prostate gland that is caused by the normal aging process. The prostate may get bigger as a man gets older. The condition is not caused by cancer. The prostate is a walnut-sized gland that is involved in the production of semen. It is located in front of the rectum and below the bladder. The bladder stores urine. The urethra carries stored urine out of the body. An enlarged prostate can press on the urethra. This can make it harder to pass urine. The buildup of urine in the bladder can cause infection. Back pressure and infection may progress to bladder damage and kidney (renal) failure. What are the causes? This condition is part of the normal aging process. However, not all men develop problems from this condition. If the prostate enlarges away from the urethra, urine flow will not be blocked. If it enlarges toward the urethra and compresses it, there will be problems passing urine. What increases the risk? This condition is more likely to develop in men older than 50 years. What are the signs or symptoms? Symptoms of this condition include: ? Getting up often during the night to urinate. ? Needing to urinate frequently during the day. ? Difficulty starting urine flow. ? Decrease in size and strength of your urine stream. ? Leaking (dribbling) after urinating. ? Inability to pass urine. This needs immediate treatment. ? Inability to completely empty your bladder. ? Pain when you pass urine. This is more common if there is also an infection. ? Urinary tract infection (UTI). How is this diagnosed? This condition is diagnosed based on your medical history, a physical exam, and your symptoms. Tests will also be done, such as: ? A post-void bladder scan. This measures any amount of urine that may remain in your bladder after you finish urinating. ? A digital rectal exam. In a rectal exam, your health care provider checks your prostate by putting a lubricated, gloved finger into your rectum to feel the back of your prostate gland. This exam detects the size of your gland and any abnormal lumps or growths. ? An exam of your urine (urinalysis). ? A prostate specific antigen (PSA) screening. This is a blood test used to screen for prostate cancer. ? An ultrasound. This test uses sound waves to electronically produce a picture of your prostate gland. Your health care provider may refer you to a specialist in kidney and prostate diseases (urologist). How is this treated? Once symptoms begin, your health care provider will monitor your condition (active surveillance or watchful waiting). Treatment for this condition will depend on the severity of your condition. Treatment may include: ? Observation and yearly exams. This may be the only treatment needed if your condition and symptoms are mild. ? Medicines to relieve your symptoms, including: ? Medicines to shrink the prostate. ? Medicines to relax the muscle of the prostate. ? Surgery in severe cases. Surgery may include: ? Prostatectomy. In this procedure, the prostate tissue is removed completely through an open incision or with a laparoscope or robotics. ? Transurethral resection of the prostate (TURP). In this procedure, a tool is inserted through the opening at the tip of the penis (urethra). It is used to cut away tissue of the inner core of the prostate. The pieces are removed through the same opening of the penis. This removes the blockage. ? Transurethral incision (TUIP). In this procedure, small cuts are made in the prostate. This lessens the prostate's pressure on the urethra. ? Transurethral microwave thermotherapy (TUMT). This procedure uses microwaves to create heat. The heat destroys and removes a small amount of prostate tissue. ? Transurethral needle ablation (TUNA). This procedure uses radio frequencies to destroy and remove a small amount of prostate tissue. ? Interstitial laser coagulation (ILC). This procedure uses a laser to destroy and remove a small amount of prostate tissue. ? Transurethral electrovaporization (TUVP). This procedure uses electrodes to destroy and remove a small amount of prostate tissue. ? Prostatic urethral lift. This procedure inserts an implant to push the lobes of the prostate away from the urethra. Follow these instructions at home: ? Take gfry-nix-ceyvhlm and prescription medicines only as told by your health care provider. ? Monitor your symptoms for any changes. Contact your health care provider with any changes. ? Avoid drinking large amounts of liquid before going to bed or out in public. ? Avoid or reduce how much caffeine or alcohol you drink. ? Give yourself time when you urinate. ? Keep all follow-up visits. This is important. Contact a health care provider if: ? You have unexplained back pain. ? Your symptoms do not get better with treatment. ? You develop side effec (more content not included)... [facility] 10-18-2023 Evaluation note Encounter Date Diagnosis Assessment Notes Sep, Facial swelling (ICD-10 - R22.0) Patient is referred to the emergency room due to failed outpatient therapy of 2 different antibiotics, worsening swelling of his face. [facility] Other 04-14-2022 NoteMR#: [id number] I [facility] Pt. Name: Niels Mccullough Jr Admitted: [...] who presented to the emergency department at [facility] as a transfer from an outside hospital [...] [facility], 2022. Plan of [...] Yost MD Date Trans: 02/07/2022 12:59 P/freddy [id number] cc: Thee Mcguire D.O. [address] [place] [address] [facility] [id number] Future Appointments Appointment Date:09/02/2024 08:30:00 AM Scheduled Provider: Location:[facility] Appointment Type:URO Nurse Visit [facility] evaluation + Plan note Future Appointments Appointment Date:09/10/2024 09:30:00 AM Scheduled Provider: Location:[facility] Appointment Type:URO Nurse Visit [facility] evaluation noteNo assessment information available [facility] Work Phone: History general Narrative - Reported* Type Description Date Medical History prostatism Medical History Hypothyroidism Medical History chronic depression Medical History hypertension Surgical History TONSILLECTOMY Surgical History HEMORRHOIDS Surgical History INGUINAL HERNIA X2 RIGHT AND LE FT Surgical History RIGHT TESTICLE REMOVED/INFECTIO N 2012 Surgical History CHOLECYSTECTOMY/INFECTION Surgical History APPENDECTOMY Surgical History PROSTATE TURP Surgical History FEET INGROWN TOENAILS AND WARTS Hospitalization History SEE ABOVE Hospitalization History ADMITTED FOR LOW SODIUM 2017 [facility] Other Hospital course Narrative No data available for this section [facility] Discharge instructions No data available for this section [facility] progress note No data available for this section [facility] Summary Purpose Family History No Family History Records FoundNo Family History Records FoundNo Family History Records FoundNo Family History Records FoundNo Family History Records FoundNo Family History Records Found No data available for this section No data available for this section No data available for this section No data available for this section No Family History Records Found Advance Directives No [...] section and content) DATE CREATED AUTHOR 09/15/2018 [facility] DATE CREATED AUTHOR AUTHOR'S ORGANIZ ATION 10/03/2018 [facility] DATE CREATED AUTHOR AUTHOR'S ORGANIZ ATION 04/10/2022 [facility] DATE CREATED AUTHOR AUTHOR'S ORGANIZ ATION 03/11/2023 [facility] DATE CREATED AUTHOR AUTHOR'S ORGANIZ ATION 12/05/2023 [facility] DATE CREATED AUTHOR AUTHOR'S ORGANIZ ATION 06/12/2024 [facility] DATE CREATED AUTHOR AUTHOR'S ORGANIZ ATION 09/15/2024 [facility] Care Teams (unrecognized sec tion and content) Team Status: Active Member Role Status Dates NON STAFF Primary Care Provider Active Team Status: Inactive Member Role Status Dates NON STAFF Primary Care Provider Active Michael Amador APRN Emergency Provider Active Goals (unrecognized section and content) Goals may be documented in a n alternate sectionNo Information No data available for this section No data available for this section No data available for this section No data available for this section REASON FOR VISIT (unrecogniz ed section and [...] BE BASED ON THE PRIMARY CLINICAL RECORDS. [facility]. provides no warranty or guarantee of the accuracy or completeness of information in this document.
--- NOTE | 2024-09-28 04:46 | XR_ITS ---
The [address] [address] Patient Name: ALBIN VILLALTA MRN: [id number] date: 1945 Sex: M Assigned Patient Location: ER Current Patient Location: ER Accession/Order Number: [id number] Exam Date: 09/28/2024 05:20 Report Date: 09/28/2024 05:41 At the request of: SOSA HUDDLESTON Procedure: XR chest 1V EXAM: XR chest 1V HISTORY: chest pain COMPARISON: None. TECHNIQUE: One view of the chest was obtained. FINDINGS: The cardiac silhouette is normal in size. There are mild bibasilar opacities. There is no significant pneumothorax or pleural effusion. No acute osseous abnormality is seen. XR/XR chest 1V IMPRESSION: 1. Mild suspected bibasilar atelectasis with otherwise clear lungs. Electronically authenticated by: Octavio ESTRADA Date: 09/28/2024 05:41
[2024-09-28] MEDS: MORPHINE SULFATE 4 MG/ML VIAL IV (04:55)
[2024-09-28] MEDS: NITROGLYCERIN 0.4 MG BOTTLE PO ×2 (04:55→06:41)
[2024-09-28 05:00] LABS: Basophils Percent Auto 0.5 % (0.2-2.0); Eosinophils Absolute Auto 0.6 10^3/uL (0.0-0.7); Eosinophils Percent Auto 8.8 % (0.9-7.0); Hematocrit 29.3 % (42.0-54.0); Hemoglobin 9.2 g/dL (14.0-18.0); Immature Granulocytes Abs Auto 0.01 10^3/uL (0.00-0.03); Immature Granulocytes Pct Auto 0.2 % (0.0-0.5); Lymphocytes Absolute Auto 1.3 10^3/uL (1.2-3.8); Lymphocytes Percent Auto 21.2 % (20.5-60.0); Mean Corpuscular HGB Conc 31.4 g/dL (29.9-35.2); Mean Corpuscular Hemoglobin 28.8 pg (25.9-34.0); Mean Corpuscular Volume 91.8 fL (80.0-94.0); Mean Platelet Volume 9.5 fL (9.5-13.5); Monocytes Absolute Auto 0.7 10^3/uL (0.3-0.8); Neutrophils Absolute Auto 3.7 10^3/uL (1.4-6.5); Neutrophils Percent Auto 58.3 % (43.0-75.0); Platelet Count 212 10^3/uL (150-450); Red Blood Count 3.19 10^6/uL (4.70-6.10); Red Cell Distribution Width 15.8 % (11.0-15.0); White Blood Count 6.3 10^3/uL (4.0-11.0)
[2024-09-28 05:04] LABS: INR 0.97; Partial Thromboplastin Time 25.3 sec (22.3-36.2); Prothrombin Time 10.3 sec (9.0-11.6)
[2024-09-28 05:06] LABS: Alanine Aminotransferase 13 U/L (16-63); Albumin Globulin Ratio 0.8; Albumin Level 3.2 g/dL (3.4-5.0); Alkaline Phosphatase 82 U/L (46-116); Anion Gap 11.9; Aspartate Amino Transferase 12 U/L (15-37); BUN Creatinine Ratio 11.5; Bilirubin Total 0.3 mg/dL (0.2-1.0); Calcium 8.9 mg/dL (8.5-10.1); Carbon Dioxide 28.4 mmol/L (21.0-32.0); Chloride 103 mmol/L (98-107); Estimated GFR (African America 38 (>=60 mL/min/1.73m^2); Estimated GFR (Non-African Ame 31 (>=60 mL/min/1.73m^2); Globulin 3.8 g/dL; Glucose 111 mg/dL (74-106); Potassium 3.3 mmol/L (3.5-5.1); Sodium 140 mmol/L (136-145)
[2024-09-28 05:08] LABS: Troponin I High Sensitivity 38.3 pg/mL (4.0-76.1)
--- NOTE | 2024-09-28 05:35 | ECG_ITS ---
The [facility] Test Date: 2024-09-28 Pat Name: ALBIN VILLALTA Department: Room: - Gender: Male Manager Transmission: : 1945 Requested By: TAHIR MCGUIRE Order Number: [id number] Reading MD: LOU BARNETT Measurements Intervals [place] Rate: 74 P: 40 SC: 282 QRS: 37 QRSD: 100 T: 65 QT: 420 QTc: 447 Interpretive Statements 1100 Sinus rhythm 2231 First degree AV block 9150 abnormal ECG Compared to ECG 09/28/2024 04:30:15 No significant changes Electronically Signed On 09-28-2024 6:47:43 EST by LOU BARNETT
--- NOTE | 2024-09-28 05:50 | ECG_ITS ---
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
[2024-09-28] MEDS: POTASSIUM CHLORIDE 10 MEQ ER TABLET 40 MEQ PO (06:40)
[2024-09-28 08:11] LABS: Troponin I High Sensitivity 35.6 pg/mL (4.0-76.1)
== END 2024-09-28 09:05 | disposition home or self-care (01) ==
PROVIDERS: Emergency Provider Emergency Medicine; PCP Internal Medicine
DX: R07.9 Chest pain, unspecified (principal); E87.6 Hypokalemia; I11.0 Hypertensive heart disease with heart failure; I50.9 Heart failure, unspecified
CPT/HCPCS: 36415; 71045; 80053; 84484; 85025; 85610; 85730; 93005; 96374; 99285; J2270

== ENCOUNTER 2024-12-06 12:49 | Emergency (ER) | payer MEDICARE, SELFPAY ==
[2024-12-06 12:59] VITALS: BP 158/86; PULSE 81; TEMP 36.7; O2SAT 97; BMI 26.4
--- NOTE | 2024-12-06 13:26 | XR_ITS ---
[address] [address] Patient Name: ALBIN VILLALTA MRN: [id number] date: 1945 Sex: M Assigned Patient Location: ER Current Patient Location: ED.MAIN Accession/Order Number: [id number] Exam Date: 12/06/2024 13:40 Report Date: 12/06/2024 14:39 At the request of: BRADFORD ESPINOZA Procedure: XR abdomen min 2V EXAMINATION: XR abdomen min 2V HISTORY: constipation COMPARISON: No relevant comparison available. FINDINGS: BOWEL GAS PATTERN: Multiple air-fluid levels in the right abdomen. Large amount of stool in the rectum measuring 9.8 cm transversely CALCIFICATIONS: None significant. OTHER: Degenerative changes of the spine. Left hip arthroplasty. IVC filter. No abnormal gaseous collections. XR/XR abdomen min 2V IMPRESSION: Large amount of stool in the rectum. Electronically authenticated by: MIKA MARI Date: 12/06/2024 14:39
--- NOTE | 2024-12-06 13:27 | ED.GENADUL1 ---
HPI HPI - General Adult General Chief complaint: Abdominal Pain Stated complaint: CONSTIPATED Time Seen by Provider: 12/06/24 13:19 Source: patient Mode of arrival: walk-in Limitations: no limitations History of Present Illness HPI narrative: Patient is a 79-year-old male who presents to the emergency department for constipation. He states he has not had a bowel movement in the last 3 days. He has been using Dulcolax suppositories without improvement. He has minimal abdominal pain, he denies fevers or vomiting. He reports moderate rectal pain, he has a history of hemorrhoid surgery in the past. He has been to this emergency department multiple times in the past for constipation. He did not try any home enemas. He states he takes MiraLAX daily but did not take his lactulose over the weekend as it is prescribed. Related Data Home Medications ?Medication ?Instructions ?Recorded ?Confirmed carvedilol 6.25 mg tablet 6.25 mg PO DAILY 06/02/23 09/28/24 duloxetine 60 mg capsule,delayed 60 mg PO QAM 06/02/23 09/28/24 release dutasteride 0.5 mg capsule 0.5 mg PO DAILY 06/02/23 09/28/24 lactulose 10 gram/15 mL oral 15 ml PO DAILY 06/02/23 04/10/24 solution (Constulose) liothyronine 5 mcg tablet 5 mcg PO DAILY 06/02/23 09/28/24 magnesium oxide 400 mg (241.3 mg 400 mg PO DAILY 06/02/23 04/10/24 magnesium) tablet montelukast 10 mg tablet 10 mg PO DAILY 06/02/23 09/28/24 pantoprazole 20 mg tablet,delayed 20 mg PO DAILY 06/02/23 09/28/24 release rosuvastatin 5 mg tablet 5 mg PO DAILY 06/02/23 09/28/24 tamsulosin 0.4 mg capsule 0.4 mg PO BID 06/02/23 09/28/24 furosemide 40 mg tablet 40 mg PO DAILY 11/28/23 09/28/24 trazodone 50 mg tablet 50 mg PO BEDTIME 03/21/24 09/28/24 Previous Rx's ?Medication ?Instructions ?Recorded hydroxyzine HCl 25 mg tablet 25 mg PO TID PRN itching #20 tabs 05/25/23 methylprednisolone 4 mg tablets in 4 mg PO DAILY #21 ea 04/10/24 a dose pack (Medrol (Codey)) tramadol 50 mg tablet 50 mg PO BID PRN pain #6 tabs 04/10/24 glycerin (adult) 1 supp SC DAILY PRN constipation 12/06/24 #12 ea Allergies Allergy/AdvReac Type Severity Reaction Status Date / Time aspirin Allergy Unknown Unknown Verified 12/06/24 12:59 cephalexin (From Keflex) Allergy Unknown Unknown Verified 12/06/24 12:59 codeine Allergy Unknown Unknown Verified 12/06/24 12:59 indomethacin (From Indocin) Allergy Unknown Unknown Verified 12/06/24 12:59 metoclopramide (From Reglan) Allergy Unknown Unknown Verified 12/06/24 12:59 minocycline Allergy Unknown Unknown Verified 12/06/24 12:59 Penicillins Allergy Unknown Unknown Verified 12/06/24 12:59 Sulfa (Sulfonamide Allergy Unknown Unknown Verified 12/06/24 12:59 Antibiotics) tetracycline Allergy Unknown Unknown Verified 12/06/24 12:59 erytromycin ethylsuccinate Allergy Unknown Unknown Uncoded 12/06/24 12:59 Opioid HPI Opioid Management Most Recent Opioid Data: Last Pain Scale 2 09/28/24 04:42 09/28/24 Review of Systems ROS Constitutional Denies: fever or chills Ears, nose, mouth, and throat Denies: throat pain or nasal congestion Cardiovascular Denies: chest pain Respiratory Denies: shortness of breath Gastrointestinal Reports: abdominal pain, constipation and rectal pain; Denies: nausea, vomiting or diarrhea Integumentary/Breast Denies: rash Hematologic/Lymphatic Denies: easy bruising or easy bleeding PFSH PFSH Social History Smoking status: Never smoker Little interest or pleasure in doing things: not at all Feeling down, depressed, or hopeless: not at all Exam Narrative Exam Narrative: Gen.: Awake, alert, in no distress Head: Normocephalic, atraumatic ENT: Moist mucous membranes Respiratory: No respiratory distress Gastrointestinal: Abdomen is soft, nondistended and nontender to palpation; rectal exam performed with Tangela Cedillo RN at bedside for the duration of the exam. Patient with moderate soft stool noted in the rectal vault, minimal rectal bleeding noted. Some soft stool was able to be disimpacted. Extremities: Moves extremities equally Psych: Normal mood and affect Neuro: No focal neuro deficit Skin: Warm, dry, intact Constitutional Vital Signs, click to edit/add: Last Vital Signs Temp 98.1 F 12/06/24 12:59 Pulse 81 12/06/24 12:59 Resp 20 12/06/24 12:59 BP 158/86 H 12/06/24 12:59 Pulse Ox 97 12/06/24 12:59 O2 Del Method Room Air 12/06/24 12:59 Course Vital Signs Vital signs: Vital Signs Temperature 98.1 F 12/06/24 12:59 Pulse Rate 81 12/06/24 12:59 Respiratory Rate 20 12/06/24 12:59 Blood Pressure 158/86 H 12/06/24 12:59 Pulse Oximetry 97 12/06/24 12:59 Oxygen Delivery Method Room Air 12/06/24 12:59 Temperature 98.1 F 12/06/24 12:59 Pulse Rate 81 12/06/24 12:59 Respiratory Rate 20 12/06/24 12:59 Blood Pressure 158/86 H 12/06/24 12:59 Pulse Oximetry 97 12/06/24 12:59 Oxygen Delivery Method Room Air 12/06/24 12:59 Medical Decision Making MDM Narrative Medical decision making narrative: X-rays show large volume of stool in the rectum. Viscous lidocaine was applied topically for the patient's comfort and an enema is administered. He is discharged home to continue MiraLAX, lactulose and he was given a prescription for glycerin suppositories. Follow-up with PCP and return to the ER if symptoms change or worsen SUPERVISED APC VISIT, PHYSICIAN ATTESTATION: Based on the medical record the care appears appropriate. ? Medical Records Medical records reviewed: Yes I reviewed the patient's medical records Imaging Data Abdominal x-ray: Attestation: I have reviewed the pertinent imaging results. Radiologist's impression: ITS Impressions Abdomen X-Ray 12/06/24 13:26 IMPRESSION: Large amount of stool in the rectum. Electronically authenticated by: MIKA MARI Date: 12/06/2024 14:39 Discharge Plan Discharge Chief Complaint: Abdominal Pain Clinical Impression: Constipation Patient Disposition: Home, Self-Care Time of Disposition Decision: 14:43 Condition: Good Prescriptions / Home Meds: New glycerin (adult) Suppository 1 supp SC DAILY PRN (Reason: constipation) Qty: 12 0RF No Action trazodone 50 mg tablet 50 mg PO BEDTIME hydroxyzine HCl 25 mg tablet 25 mg PO TID PRN (Reason: itching) Qty: 20 0RF carvedilol 6.25 mg tablet 6.25 mg PO DAILY duloxetine 60 mg capsule,delayed release(DR/EC) 60 mg PO QAM dutasteride 0.5 mg capsule 0.5 mg PO DAILY lactulose [Constulose] 10 gram/15 mL solution 15 ml PO DAILY liothyronine 5 mcg tablet 5 mcg PO DAILY magnesium oxide 400 mg (241.3 mg magnesium) tablet 400 mg PO DAILY montelukast 10 mg tablet 10 mg PO DAILY pantoprazole 20 mg tablet,delayed release (DR/EC) 20 mg PO DAILY rosuvastatin 5 mg tablet 5 mg PO DAILY tamsulosin 0.4 mg capsule 0.4 mg PO BID furosemide 40 mg tablet 40 mg PO DAILY tramadol 50 mg tablet 50 mg PO BID PRN (Reason: pain) Qty: 6 0RF methylprednisolone [Medrol (Codey)] 4 mg tablets,dose pack 4 mg PO DAILY Qty: 21 0RF Rx Instructions: TAKE PER DOSEPAK INSTRUCTIONS Print Language: Slovak Instructions: Constipation (ED) Referrals: TAHIR MCGUIRE DO [Primary Care Provider] - 1 week
[2024-12-06] MEDS: LIDOCAINE VISCOUS 2% 15 ML SOLUTION TOPICAL (14:10)
== END 2024-12-06 15:25 | disposition home or self-care (01) ==
PROVIDERS: Emergency Provider Emergency Medicine; PCP Internal Medicine
DX: K59.00 Constipation, unspecified (principal)
CPT/HCPCS: 74019; 99283

== ENCOUNTER 2024-12-25 10:28 | Emergency (ER) | payer MEDICARE, SELFPAY ==
[2024-12-25 10:38] VITALS: BP 185/74; PULSE 71; PULSE 72; TEMP 37.1; O2SAT 98; BMI 26.4
--- OUTSIDE RECORDS SUMMARY | 2024-12-25 10:39 | XMS_ITS | CCD ---
Author Organization [facility] Care Team Providers Care Data Center Technician Name Role Phone YARBROUGHCLARITZA Coleman Unavailable Unavailable NADERER, RUBEN SHIRA Unavailable Unavailabl e NADERER, RUBEN SHIRA Unavailable Unavailabl e NADERER, RUBEN SHIRA Unavailable Unavailabl e NADERER, RUBEN SHIRA Unavailable Unavailabl e NADERER, RUBEN SHIRA Unavailable Unavailabl e NADERER, RUBEN SHIRA Unavailable Unavailabl e NADERER, RUBEN SHIRA Unavailable Unavailabl e NADERER, RUBEN HSIRA Unavailable Unavailabl e NADERER, RUBEN SHIRA Unavailable [...] Consulting Unavailable SARY RIGGS Consulting Unavailable DEVENDRA GUTIERERZ Consulting Unavailable MAYNOR, DR HARO Primary Care Unavailable PAY ., DR CASANOVA Admitting Unavailable PAY ., DR CASANOVA Attending Unavailable PAY ., DR CASANOVA Consulting Unavailable MELANIONE, DR HARO Primary Care Unavailable VALONE, DR HARO Admitting Unavailable VALONE, DR HARO Attending Unavailable VALONE, DR HARO Primary Care Unavailable HAY ., DR RICKS Admitting Unavailable HAY ., DR RICKS Attending Unavailable TUPELO, DR MIKA Romero Consulting Unavailable ALEXIS ., JUAN FELDER Consulting UnavailJOSSELYN Cameron Consulting Unavailable NON STAFF Primary Care Provider UnavailLINO Drew Emergency Provider MarjorieBrittany Unavailable Michael Amador Attending Unavailable Michael Amador Admitting Unavailable NON STAFF Primary Care Unavailable THEE MCGUIRE JR Primary Care Physician Thee Mcguire MD Primary Care Provider SMITH MUNGUIA Attending Unavailable SMITH MUNGUIA Attending Unavailable SMITH MUNGUIA Attending Unavailable SMITH MUNGUIA Attending Unavailable Gallula, Elizabeth Foote Attending Unavailable Galea, Elizabeth Foote Attending Unavailable Claritza YARBROUGH Attending Unavailable Galea, Elizabeth Foote Attending Unavailable Claritza YARBROUGH Referring Unavailable Claritza YARBROUGH Admitting Unavailable Claritza YARBROUGH Attending Unavailable Galea, Elizabeth Foote Attending Unavailable Claritza YARBROUGH Referring Unavailable DO TYLER Attending Unavailab le Allergies Allergy Classification Reported Allergen(s) Allergy Type Date of Onset Reaction(s) Facility (4 sources) Aspirin; Translations: [aspirin] Drug Allergy 06-24-20 13 Unknown Reaction [facility] Repository (4 sources) Cephalexin; Translations: [Keflex] Drug Allergy 06-24-20 13 Unknown [facility] (4 sources) Codeine; Translations: [codeine] Drug Allergy 06-24-20 13 Unknown Reaction [facility] (2 sources) Erythromycin Drug Allergy 11-23-19 19 Unknown Reaction [facility] (2 sources) Iothalamate Drug Allergy 06-24-20 13 [facility] (4 sources) Minocycline; Translations: [minocycline] Drug Allergy 06-24-20 13 Unknown Reaction [facility] (7 sources) Penicillin; Translations: [penicillin] Drug Allergy 11-23-19 19 Nausea (finding) [facility] (2 sources) Procyclidine Drug Allergy 06-24-20 13 [facility] (1 source) Sulfamethoxazole / Trimethoprim Drug Allergy 11-23-19 19 [facility] (3 sources) Sulfonamides (Antibiotic) Drug allergy (disorder) 04-27-20 17 Unknown Reaction [facility] (4 sources) Tetracycline; Translations: [tetracycline] Drug Allergy 06-24-20 13 Unknown Reaction [facility] (2 sources) Penicillins Drug allergy (disorder) 06-24-20 13 Swelling [facility] Repository (1 source) E.E.S. Drug allergy (disorder) 06-24-20 13 [facility] (16 sources) Cephalexin; Translations: [cephalexin] Drug Allergy 10-18-20 Nausea (finding), Diarrhea (finding), Rash [facility] (11 sources) Indomethacin; Translations: [indomethacin] Drug Allergy 10-18-20 Nausea (finding), Unknown [facility] (6 sources) Aspirin; Translations: [aspirin] Drug Allergy Fatigue (finding) [facility] (8 sources) Codeine; Translations: [codeine] Drug Allergy 11-20-19 Nausea (finding), Unknown [facility] (9 sources) Erythromycin; Translations: [erythromycin] Drug Allergy 11-20-19 Nausea (finding), Unknown [facility] (3 sources) Metoclopramide Drug Allergy 11-20-19 24 Unknown [employer] [facility] Other (6 sources) Minocycline; Translations: [minocycline] Drug Allergy Eruption of skin (disorder) [facility] (3 sources) Penicillin G Drug Allergy 11-20-19 24 Unknown [employer] [facility] Other (3 sources) Sulfamethoxazole / Trimethoprim Drug Allergy 11-20-19 24 Unknown [employer] [facility] Other (8 sources) Tetracycline; Translations: [tetracycline] Drug Allergy 11-20-19 Nausea (finding), Unknown [facility] (1 source) Aspirin Drug Allergy 10-18-20 [facility] (1 source) Codeine Drug Allergy 10-18-20 [facility] (1 source) Erythromycin Drug Allergy 10-18-20 [facility] (1 source) Metoclopramide Drug Allergy 10-18-20 [facility] (1 source) Minocycline Drug Allergy 10-18-20 [facility] (1 source) Penicillin Drug Allergy 10-18-20 [facility] (1 source) Penicillins Drug allergy (disorder) 10-18-20 [facility] (1 source) Sulfamethoxazole Drug Allergy 10-18-20 [facility] (1 source) Sulfonamides (Antibiotic) Drug allergy (disorder) 10-18-20 [facility] (1 source) Tetracycline Drug Allergy 10-18-20 [facility] (1 source) Trimethoprim Drug Allergy 10-18-20 [facility] (6 sources) Sulfonamides (Antibiotic); Translations: [sulfa drugs] Propensity to adverse reactions to drug Nausea (finding) [facility] (2 sources) Aluminum aspirin Drug Allergy 11-20-19 Rash [facility] (2 sources) Minocycline Drug Allergy 11-20-19 Unknown [facility] Medications Current Medications Medication Drug Class(es) Dates Sig (Normalized) Sig (Original) Antihistamine & Nasal Decongestant 60 mg-120 mg oral tablet, extended release (5 sources) Start: 08-12-2024 take 1 tablet by mouth every twelve hours Antihistamine & Nasal Decongestant 60 mg-120 mg oral tablet, extended release tab(s), Oral, q12hr, Refill(s) 0 Start Date: 08/12/24 Status: Ordered baclofen 10 mg oral tablet (2 sources) gamma-Aminobutyr ic Acid-ergic Agonist Start: 10-31-2023 take 1 tablet by mouth at bedtime baclofen (Lioresal) 10 MG tablet Take 10 mg by mouth at bedtime 10/31/2023 Active carvedilol 6.25 mg oral tablet (8 sources) alpha-Adrenergic Mae, beta-Adrenergic Mae Start: 08-12-2024 [...] DULoxetine 60 mg delayed release oral capsule (9 sources) Serotonin and Norepinephrine Reuptake Inhibitor Start: 08-12-20 take 1 capsule by mouth at bedtime duloxetine 60 mg oral delayed release capsule TAKE 1 CAPSULE AT BEDTIME. Start Date: 08/12/24 Status: Ordered Start: 10-18-2023 Duloxetine Act candace MG PO October 18, 2023 12:00am dutasteride 0.5 mg oral capsule (7 sources) 5-alpha Reductase Inhibitor Start: 08-28-2023 take 1 capsule by mouth once daily dutasteride 0.5 mg Cap TAKE 1 CAPSULE BY MOUTH EVERY DAY Start Date: 08/12/24 Status: Ordered Finerenone (1 source) Start: 10-18-2023 Finerenone (Kerendia) 10 mg Tablet Active MG TABLET October 18, 2023 12:00am finerenone 20 MG Oral Tablet [Kerendia] (5 sources) Start: 08-12-2024 take 1 mg by mouth once daily Kerendia 20 mg oral tablet mg tab(s), Oral, Daily, Refills(s) 0 Start Date: 08/12/24 Status: Ordered furosemide 40 mg oral tablet (3 sources) Loop Diuretic Start: 11-12-2023 take 1 tablet by mouth in the morning furosemide (Lasix) 40 MG tablet Take 40 mg by mouth in the morning. 11/12/2023 Active hydrALAZINE hydrochloride 100 mg oral tablet (9 sources) Arteriolar Vasodilator Start: 10-18-2023 Hydralazine Active M G TABLET October 18, 2023 12:00am Start: 09-16-2023 take 1 tablet by mine th twice daily hydrALAZINE 100 mg oral tablet 100 mg = 1 tab(s), Oral, BID, # 180 tab(s), Refills(s) 0 Start Date: 08/12/24 Status: Ordered lactulose 667 mg/ml oral solution (3 sources) Osmotic Laxative Start: 11-11-2023 Constulose 10 GM/15ML solution TAKE 15 MLS THREE TO FOUR TIMES A DAY 11/11/2023 Active Start: 10-18-2023 Lactulose (Con stulose) 10 gram/15 mL Syrup Active GM PO October 18, 2023 12:00am levothyroxine sodium 0.15 mg oral tablet (1 source) l-Thyroxine take 1 tablet by mouth once daily in the morning Magnesium (1 source) magnesium oxide 400 mg oral tablet (8 sources) Start: 2023 take 1 tablet by mouth once daily magnesium oxide 400 mg Tab take 1 tablet by mouth once daily Start Date: 08/12/24 Status: Ordered Start: 10-18-2023 Magnesium Oxid e Active MG TABLET October 18, 2023 12:00am montelukast 10 mg oral tablet (14 sources) Leukotriene Receptor Antagonist Start: 08-12-2024 take 1 tablet by mouth once daily montelukast 10 mg Tab take 1 tablet by mouth once daily Start Date: 08/12/24 Status: Ordered Start: 10-18-2023 Montelukast Ac tive MG TABLET October 18, 2023 12:00am polyethylene glycol 3350 91783 mg powder for oral solution (2 sources) Osmotic Laxative polyethylene gl ycol, PEG, 3350 (MiraLax) 17 g packet 1 (one) time each day at the same time Active Polyethylene Glycols (1 source) predniSONE 1 mg [...] Ordered tamsulosin hydrochloride 0.4 mg oral capsule (7 sources) alpha-Adrenergic Mae Start: 4 take 1 capsule by mouth twice daily tamsulosin 0.4 mg Cap 0.4 mg = 1 cap(s), TAKE 1 CAPSULE BY MOUTH TWICE DAILY Start Date: 08/12/24 Status: Ordered Start: 10-18-2023 Tamsulosin Act candace MG PO October 18, 2023 12:00am take 1 capsule by mo [facility] every twenty-four hours Vitamin D3 (1 source) warfarin sodium 5 mg oral tablet (1 source) Vitamin K Antagonist Start: 10-18-2023 Warfarin Active MG TABLET October 18, 2023 12:00am Completed/Discontinued Medications Medication Drug Class(es) Dates Sig (Normalized) Sig (Original) ciprofloxacin 500 mg oral tablet (1 source) Quinolone Antimicrobial Start: 11-01-2024 take 1 tablet by mouth once daily Cipro 500 mg Tab 500 mg = 1 tab(s), Oral, Daily, Take 1 tablet the day before the procedure and 1 tablet after the procedure, # 2 tab(s), Refills(s) 0, Pharmacy: [id number], 180, cm, 08/12/24 9:35:00 EDT, Height/Length Dosing, 78, kg, 08/12/24 9:35:00 EDT, Weight Dosing Start Date: 11/01/24 Status: Ordered liothyronine sodium 0.005 mg oral tablet (7 sources) l-Triiodothyronine Start: 08-12-2024 liothyronine 5 mcg Tab 5 mcg = 1 tab(s), TAKE 4 TABLETS BY MOUTH ON MON, WED, FRI, AND SUN. - TAKE 3 TABLETS ON FRI, , AND SAT. Start Date: 08/12/24 Status: Ordered liothyronine (Cy tomel) 5 MCG tablet TAKE 4 TABLETS BY MOUTH FRI,WED,AND,FRI, SUN AND 3 TABLETS TU,,SAT Active pantoprazole 20 mg delayed release oral tablet (9 sources) Proton Pump Inhibitor Start: 08-12-2024 take 1 tablet by mouth once daily Pantoprazole [address] Tab 20 mg = 1 tab(s), take 1 tablet by mouth once daily Start Date: 08/12/24 Status: Ordered Start: 10-18-2023 Pantoprazole A ctive MG PO October 18, 2023 12:00am take 1 tablet by mine th in the morning pantoprazole (ProtoNix) 40 MG EC tablet Take 40 mg by mouth in the morning. Active rosuvastatin calcium 5 mg oral tablet (6 sources) HMG-CoA Reductase Inhibitor Start: 08-12-2024 take 1 tablet by mouth once daily rosuvastatin 5 mg Tab 5 mg = 1 tab(s), take 1 tablet by mouth once daily Start Date: 08/12/24 Status: Ordered Start: 10-18-2023 Rosuvastatin A ctive MG TABLET October 18, 2023 12:00am traZODone hydrochloride 50 mg oral tablet (5 sources) Serotonin Reuptake Inhibitor Start: 08-12-2024 take 1 tablet by mouth at bedtime traZODONE 50 mg Tab 50 mg = 1 tab(s), TAKE 1 TABLET BY MOUTH AT BEDTIME Start Date: 08/12/24 Status: Ordered Problems Active Problems Problem Classification Problem Date Documented Da te Episodic/Chronic Acquired foot deformities (1 source) Hallux valgus (acquired), left foot; Translations: [Hallux valgus (acquired)] 10-07-2024 Chronic Acquired foot deformities (1 source) Hallux valgus (acquired), right foot; Translations: [Hallux valgus (acquired)] 10-07-2024 Chronic Anxiety disorders (2 sources) Anxiety disorder, unspecified; Translations: [Anxiety] Onset: 3 09-13-2024 Chronic Calculus of urinary tract (1 source) Kidney stone; Translations: [Calculus of kidney] Onset: 4 Episodic Chronic obstructive pulmonary disease and bronchiectasis (1 source) Pulmonary emphysema 09-13-2024 Chronic Congestive heart failure; nonhypertensive (1 source) Heart failure, unspecified; Translations: [HEART FAILURE UNSPECIFIED] Onset: 3 Chronic Disorders of lipid metabolism (2 sources) Hyperlipidemia, unspecified; Translations: [Hyperlipidemia] Onset: 8 09-13-2024 Chronic Diverticulosis and diverticulitis (2 sources) 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; Translations: [Diverticulosis of large intestine without perforation or abscess without bleeding] 09-13-2024 Chronic Esophageal disorders (2 sources) Gastroesophageal reflux disease without esophagitis; Translations: [Gastro-esophageal reflux disease without esophagitis] 09-13-2024 Chronic Essential hypertension (3 sources) Essential (primary) hypertension; Translations: [Hypertensive disorder] Onset: 7 09-13-2024 Chronic Gastroduodenal ulcer (3 sources) Peptic ulcer, site unspecified, unspecified as acute or chronic, without hemorrhage or perforation; Translations: [Peptic ulcer] Onset: 8 09-13-2024 Chronic Genitourinary symptoms and ill-defined conditions (5 sources) Frequency of micturition; Translations: [Retention of urine] Onset: 8 Episodic Hemorrhoids (2 sources) Residual hemorrhoidal skin tags; Translations: [Hemorrhoids] Onset: 2 Episodic Hyperplasia of prostate (3 sources) Benign prostatic hypertrophy with outflow obstruction; Translations: [Benign prostatic hyperplasia with lower urinary tract symptoms] Onset: 4 Chronic Hypertension with complications and secondary hypertension (1 source) Hypertensive heart disease with heart failure; Translations: [HTN HEART DISEASE W/HEART FAIL] Onset: 3 Chronic Malaise and fatigue (4 sources) Other fatigue; Translations: [Lack of energy] Onset: 7 Episodic Mood disorders (6 sources) Major depressive disorder, single episode, severe without psychotic features; Translations: [Major depressive disorder, recurrent severe without psychotic features] Onset: 8 09-13-2024 Chronic Mood disorders (1 source) Mood disorders; Translations: [DEPRESSION UNSPECIFIED] Onset: 3 Mycoses (1 source) Pain in toe; Translations: [Tinea unguium] 10-07-2024 Episodic Osteoarthritis (1 source) Arthritis 09-13-2024 Chronic Other and unspecified benign neoplasm (1 source) [...] constipation] Chronic Other gastrointestinal disorders (1 source) Irritable bowel syndrome 09-13-2024 Chronic Other gastrointestinal disorders (2 sources) Constipation, unspecified; Translations: [CONSTIPATION UNSPECIFIED] Onset: 2 Episodic Other gastrointestinal disorders (1 source) Constipation; Translations: [Constipation, unspecified] Episodic Other gastrointestinal disorders (1 source) Chronic constipation 09-13-2024 Episodic Other male genital disorders (1 source) Secondary erectile dysfunction 09-13-2024 Chronic Other nutritional; endocrine; and metabolic disorders (1 source) Weight loss; Translations: [Abnormal weight loss] Episodic Other skin disorders (2 sources) Localized swelling, mass and lump, head; Translations: [Localized swelling, mass and lump, head] Onset: 3 Episodic Other skin disorders (1 source) Asteatosis cutis; Translations: [Xerosis cutis] 10-07-2024 Episodic Other upper respiratory disease (1 source) Abscess of nasal septum; Translations: [Abscess, furuncle and carbuncle of nose] 10-18-2023 Episodic Phlebitis; thrombophlebitis and thromboembolism (2 sources) Personal history of other venous thrombosis and embolism; Translations: [Deep venous thrombosis] Onset: 3 09-13-2024 Episodic Suicide and intentional self-inflicted injury (1 source) Suicide attempt, initial encounter; Translations: [Suicide attempt, initial encounter] Onset: 8 Thyroid disorders (2 sources) Hypothyroidism, unspecified; Translations: [Hypothyroidism] Onset: 3 09-13-2024 Chronic Unclassified (1 source) CONTACT W/AND (SUSP) [...] Episodic Other aftercare (3 sources) Other termite treater helper (current) drug therapy; Translations: [Other termite treater helper (current) drug therapy] Onset: 03-12-2018 Episodic Other aftercare (1 source) retirement (current) use of anticoagulants; Translations: [DIGITAL IMAGER CURRNT USE ANTICOAGULANTS] Onset: 10-31-2022 Episodic Other [...] [Acute maxillary sinusitis, unspecified] Onset: 05-04-2018 Episodic Residual codes; unclassified (1 source) Acquired absence of other specified parts of digestive tract; Translations: [ACQ ABSENCE OTH PART DIGESTV TRACT] Onset: 10-31-2022 Episodic Unclassified (1 source) Encounter for screening for lipoid disorders; Translations: [Encounter for screening for lipoid disorders] Onset: 06-15-2018 Episodic Results Test Name Value Interpretation Reference Range Facility Main OR Intraoperative Recor don 11-09-2024 Main OR Intraoperative Record Main OR Intraoperative Record IntraOp Document Type FTURO Summary Primary Physician: Claritza YARBROUGH MD Finalized Date/Time: 11/09/24 11:16:23 Pt. Name: NIELS MCCULLOUGH JR/Sex: 1945 Male Med Rec #: [id number] Physician: Claritza YARBROUGH MD Financial #: [id number] Pt. Type: O Room/Bed: / Admit/Disch: 11/09/24 08:48:02 - Institution: Case Times FTURO Entry 1 Patient Times In Room 11/09/24 11:02:00 Out Room 11/09/24 11:16:00 Procedure Times Start 11/09/24 11:07:00 Stop 11/09/24 11:08:00 Anesthesia Times Last Modified By: Adilene Crowley 11/09/24 11:16:10 Case Attendance FTURO Entry 1 Entry 2 Entry 3 Case Attendee LINNEA PICKARD, Adilene Bonilla BOX TOE FLANGER STITCHDOWNS, Amie Monique Role Performed Surgeon - Primary Professor Of Management - Primary Scrub - Primary Time In 11/09/24 11:02:00 11/09/24 11:02:00 11/09/24 11:02:00 Time Out 11/09/24 11:16:00 11/09/24 11:16:00 11/09/24 11:16:00 Procedure CYSTOSCOPY LOCAL CYSTOSCOPY LOCAL CYSTOSCOPY LOCAL Comments Last Modified By: Adilene Crowley Kelsie E Burgderfer, Kelsie E 11/09/24 11:16:11 11/09/24 11:16:11 11/09/24 11:16:11 Surgical Procedures FTURO Entry 1 Procedure Description Procedure CYSTOSCOPY LOCAL Surgeon Description CYSTOSCOPY LOCAL Primary Procedure Yes Primary Surgeon Claritza YARBROUGH MD 11/09/24 11:07:00 Stop 11/09/24 11:08:00 Anesthesia Type Local Surgical Service Urology Wound Class 2 - Clean-Contaminated Last Modified By: Adilene Crowley 11/09/24 11:09:08 General Case Data FTURO Pre-Care Text: Classifies surgical wound, implements aseptic technique, initiates traffic control Entry 1 Case Information OR URO 1 FT Case Level None Wound Class 2 - Clean-Contaminated Specialty Urology Preop Diagnosis FEELING OF INCOMPLETE Postop Same As Preop Yes EMPTYING, BPH WITH OBSTRUCTION Postop Diagnosis FEELING OF INCOMPLETE Outcomes Met? Yes EMPTYING, BPH WITH OBSTRUCTION Last Modified By: Adilene Crowley 11/09/24 11:04:22 Post-Care Text: The patient is free from signs and symptoms of infection EU IntraOp - FTURO Pre-Care Text: Implements protective measures prior to operative or invasive procedure, confirms identity before the operative or invasive procedure, verifies operative procedure, surgical site, and laterality Entry 1 EU Perioperative Protocols Procedure(s) CYSTOSCOPY LOCAL Patient Identity Birthday, ID Band Verified (select at Check, Patient least 2): Participation Consents / H and P H&P, Surgery/Procedure Operative Site N/A Verified Consent Marking Verified Surgical Site Yes Laterality Verified n/a Verified Procedure Verified Yes Correct Patient Yes Position Verified Availability Equipment, Medication Time Out Claritza YARBROUGH MD, Verified (If Participants Adilene Crowley, Applicable) Amie Franco CST Time Out Complete 11/09/24 11:04:00 Allergies Reviewed? Yes Allergies Reviewed Self/Patient With Body Position Supine Prep Area PENIS Prep Agents Betadine Solution Skin. Condition Intact, [place], Warm, & Description N/A Dry Additional None Specimens Comment N/A Specimens Collected Vitals - EU Blood Pressure 194/90 Pulse 75 bpm Respirations 18 br/min SPO2 98 % EBL 0 I&O - EU Total Intake 0 mL Total Output 0 mL Outcomes Met? Yes Last Modified By: Adilene Crowley 11/09/24 11:05:31 Post-Care Text: The patient is free from signs and symptoms of injury caused by extraneous objects Sign Out FTURO Entry 1 Before Patient Leaves OR Nurse verbally Yes Nurse verbally n/a confirms with the confirms with the team the name of team that the procedure(s) instrument, sponge, recorded and needle counts are correct (or N/A) Nurse verbally n/a Nurse verbally Yes confirms with the confirms with the team how the team whether there specimen is labeled are any equipment (including patient problems to be name), if applicable addressed Sign Out Complete 11/09/24 11:08:00 Last Modified By: Adilene Crowley 11/09/24 11:09:06 Case Comments Finalized By: Adilene Crowley Document Signatures Signed By: Adilene Crowley 11/09/24 11:16 Adilene Crowley 11/09/24 11:16 Adilene Crowley 11/09/24 11:16 Adilene Crowley 11/09/24 11:16 [facility] Main OR Preoperative Recordo n 11-09-2024 Main OR Preoperative Record Main OR Preoperative Record Holding Area Document Type FTURO Summary Primary Physician: Claritza YARBROUGH MD Finalized Date/Time: 11/09/24 11:04:12 Pt. Name: NIELS MCCULLOUGH JR /Sex: 1945 Male [facility] Rec #: [id number] Physician: Claritza YARBROUGH MD Financial #: [id number] Pt. Type: O Room/Bed: / Admit/Disch: 11/09/24 08:48:02 - Institution: Case Times Holding FTURO Pre-Care Text: Verifies consent for planned procedure, identifies individual values and wishes concerning care, includes family members in perioperative teaching Secures patient's records' belongings, and valuables, maintains patient's dignity and privacy, and maintains patient confidentiality Entry 1 In Holding 11/09/24 10:41:00 Outcomes Met? Yes Last Modified By: Erica Reddy LPN 11/09/24 10:41:32 Post-Care Text: The patient participates in decisions affecting his or her perioperative plan of care The patient's right to privacy is maintained Surgery Checklist FTURO Entry 1 Patient Birthday, ID Band Procedure History and Physical, Identification: Check, Patient Verification: Surgical Consent, With Participation Patient NPO after Midnight: n/a Personal Items: Glasses Limitations: walker Complaints of Pain: No Skin Integrity Intact, [place], Warm, & Dry Vitals - EU Blood Pressure 194/90 Pulse 75 bpm Respirations 18 br/min SPO2 98 % Additional None RN Reviewed Yes Specimens Collected Last Modified By: Adilene Crowley 11/09/24 11:04:01 Finalized By: Adilene Crowley Document Signatures Signed By: Adilene Crowley 11/09/24 11:04 Adilene Crowley 11/09/24 11:04 Erica Reddy LPN 11/09/24 10:42 Adilene Crowley 11/09/24 11:[address] [facility] Operative Reporton Operative Report Operative Report Patient: NIELS MCCULLOUGH JR Age: 79 years Sex: Male : 1945 Associated Diagnoses: None Author: Claritza YARBROUGH MD Procedure Operative Information Details: Date/ Time: 11/09/2024 11:14:00. Pre-Op Dx: Urinary Retention - R33.9. Post-Op Dx: Same. Anesthesia Type: Local. Procedure: Local Cystoscopy. Complications: None. Risks/Benefits/Informed Consent: Surgical risks, benefits, details of the procedure have been explained to the patient, Full informed consent has been obtained. Intraoperative Information Prepped: Patient is brought back to the endoscopy suite, Patient is placed in supine position, Patient prepped in the usual fashion with Betadine solution, 2% Xylocaine Jelly is placed per Urethra, After waiting several minutes the Cystoscope is introduced. The Urethra is: Normal. The Prostatic Urethra is: Unobstructed. The Bladder is: Trabeculated (Moderate (2), No bladder tumors. Small diverticuli.). The ureteral orifices: Show efflux of clear urine. Devices Implanted: None. Removal: Cystoscope is removed, The patient tolerated it well. Postoperative Information Discharge: Patient is discharged home with antibiotic coverage, Follow up arranged. He will get taught intermittent cath and we will now conduct a voiding trial. Follow-up will be in 4 months with a physician ladies locker room attendant. Normal [facility] Comment on above: Result Comment: Elec tronically Signed By: LINNEA PICKARD, Claritza Cee\.br\Date and Time Signed: 11/09/24 11:15 EST Ambulatory Visit Summaryon 1 Ambulatory Visit Summary Ambulatory Visit Summary NIELS MCCULLOUGH JR :1945 Visit Date:08/12/2024 Ambulatory Visit Instructions Your Diagnosis Urinary retention Constipation BPH with urinary obstruction Kidney stone Renal cyst Other obstructive and reflux uropathy Your Care Team Attending Physician - Elizabeth Stallworth Primary Care Physician - THEE MCGUIRE JR, [...] 8:30 AM EST Where: [facility] [address] [place] [id number]- Medications What How Much When Instructions Unchanged [...] Tablets TAKE 4 TABLETS BY MOUTH ON FRI, WED, FRI, AND FRI. - TAKE 3 TABLETS ON FRI, , AND FRI. Contact prescribing physician if questions or concerns [...] for choosing us for your care. Normal [facility] Activated partial thrombopla stin time (aPTT) in platelet poor plasma by coagulation aOrdered By: Michael Amador on 10-18-2023 aPTT Coag (PPP) [Time] 31.2 s 25.1-36.5 [facility] Comment on above: A hematocrit value g reater than 55% may lead to inaccurate results in coagulation testing. Patients having hematocrit values >55% require a special collection tube for coagulation studies. Please contact the laboratory at [phone] for redraw instructions. Alanine aminotransferase [En zymatic activity/volume] in Serum or PlasmaOrdered By: Michael Amador on 10-18-2023 ALT [Catalytic activity/Vol] 9 U/L 7-52 [facility] Albumin [Mass/volume] in Ser um or Plasma by Bromocresol green (BCG) dye binding methoOrdered By: Michael Amador on 10-18-2023 Albumin BCG dye [Mass/Vol] 3.9 g/dL 3.5-5.7 [facility] Alkaline phosphatase [Enzyma tic activity/volume] in Serum or PlasmaOrdered By: Michael Amador on 10-18-2023 ALP [Catalytic activity/Vol] 65 U/L 34-104 [facility] Aspartate aminotransferase [ Enzymatic activity/volume] in Serum or PlasmaOrdered By: Michael Amador on 10-18-2023 AST [Catalytic activity/Vol] 12 U/L 13-39 [facility] Basophils Auto (Bld) [#/Vol] Ordered By: Michael Amador on 10-18-2023 Basophils (Bld) [#/Vol] 0.0 10*3/uL 0.0-0.2 [facility] Basophils/100 WBC Auto (Bld) Ordered By: Michael Amador on 10-18-2023 Basophils/100 WBC (Bld) 0.3 % . [facility] Bilirubin.total [Mass/volume ] in Serum or PlasmaOrdered By: Micheal Amador on 10-18-2023 Bilirubin [Mass/Vol] 0.5 mg/dL 0.3-1.0 [facility] Blood Cultureon 10-18-2023 Bacteria identified Cx Nom (Bld) NO GROWTH 5 DAYS PERFORMED BY: [place] [address] PATHOLOGIST FIELD TRAFFIC INVESTIGATOR DAVID VERA M.D. [facility] Comment on above: Performed By: #### P TT, CUBLD, CBC, LACTIC, CMP, PT #### [facility] [address] [place] [address] [facility] Bacteria identified Cx Nom (Bld) NO GROWTH 5 DAYS PERFORMED BY: [place] [address] PATHOLOGIST FIELD TRAFFIC INVESTIGATOR DAVID VERA M.D. [facility] Comment on above: Performed By: #### P TT, CUBLD, CBC, LACTIC, CMP, PT #### [facility] [address] [place], [place] [id number] [place] CT sinus wo conon 10-18-2023 CT sinus wo con [facility] Main [place] [address] [place] [address] [address] Scan Report Signed Patient: Niels Mccullough JR MR#: [id number] : 1945 Acct:[id number] Age/Sex: 77 / M ADM Date: 10/18/23 Loc: ER Room: Type: [facility] ER Attending Dr: Copies to: Michael [...] Rachel Briseno M.D.10/18/2023 1:17 PM Dictation Location: [place] [address] Transcribed By: [facility] 10/18/23 1317 Dictated By: Rachel Briseno MD 10/18/23 1312 Signed By: 10/18/23 1317 Normal [facility] Calcium [Mass/volume] in Ser um or PlasmaOrdered By: Michael Amador on 10-18-2023 Calcium [Mass/Vol] 9.0 mg/dL 8.6-10.3 [facility] Carbon dioxide, total [Moles /volume] in Serum or PlasmaOrdered By: Michael Amador on 10-18-2023 CO2 [Moles/Vol] 23.9 mmol/L 21.0-31.0 [facility] Chloride [Moles/volume] in S beth or PlasmaOrdered By: Michael Amador on 10-18-2023 Chloride [Moles/Vol] 105 mmol/L 98-107 [facility] Complete Blood Count Auto Di ffon 10-18-2023 Basophils (Bld) [#/Vol] 0.0 10*3/uL Normal 0.0-0.2 [facility] Comment on above: Result Comment: PERF ORMED BY: [place] [address] PATHOLOGIST FIELD TRAFFIC INVESTIGATOR DAVID VERA M.D. Performed By: #### P TT, CUBLD, CBC, LACTIC, CMP, PT #### [address] Basophils/100 WBC (Bld) 0.3 % Normal . [facility] Comment on above: Performed By: #### P TT, CUBLD, CBC, LACTIC, CMP, PT #### [address] Eosinophils (Bld) [#/Vol] 0.1 10*3/uL Normal 0.0-0.45 [facility] Comment on above: Performed By: #### P TT, CUBLD, CBC, LACTIC, CMP, PT #### [address] Eosinophils/100 WBC (Bld) 0.9 % Normal . [facility] Comment on above: Performed By: #### P TT, CUBLD, CBC, LACTIC, CMP, PT #### [address] Erythrocyte distribution width (RBC) [Ratio] 14.9 % High 12.0-14.8 [facility] Comment on above: Performed By: #### P TT, CUBLD, CBC, LACTIC, CMP, PT #### [address] Hematocrit (Bld) [Volume fraction] 29.9 % Low 38.8-50.0 [facility] Comment on above: Performed By: #### P TT, CUBLD, CBC, LACTIC, CMP, PT #### [address] Hemoglobin (Bld) [Mass/Vol] 10.2 g/dL Low 13.0-17.0 [facility] Comment on above: Performed By: #### P TT, CUBLD, CBC, LACTIC, CMP, PT #### [address] Lymphocytes (Bld) [#/Vol] 0.9 10*3/uL Low 1.00-4.8 [facility] Comment on above: Performed By: #### P TT, CUBLD, CBC, LACTIC, CMP, PT #### [address] Lymphocytes/100 WBC (Bld) 10.2 % Normal . [facility] Comment on above: Performed By: #### P TT, CUBLD, CBC, LACTIC, CMP, PT #### [address] MCH (RBC) [Entitic mass] 32.4 pg Normal 27.5-35.2 [facility] Comment on above: Performed By: #### P TT, CUBLD, CBC, LACTIC, CMP, PT #### [address] MCV (RBC) [Entitic vol] 94.7 fL Normal 83.5-101 [facility] Comment on above: Performed By: #### P TT, CUBLD, CBC, LACTIC, CMP, PT #### [address] Mean Corpuscular HGB Conc 34.2 g/dL Normal 32.5-35.6 [facility] Comment on above: Performed By: #### P TT, CUBLD, CBC, LACTIC, CMP, PT #### [address] Monocytes (Bld) [#/Vol] 0.9 10*3/uL High 0.0-0.8 [facility] Comment on above: Performed By: #### P TT, CUBLD, CBC, LACTIC, CMP, PT #### [address] Monocytes/100 WBC (Bld) 19.23 % Normal 0.00-20.00 [facility] Comment on above: Performed By: #### P TT, CUBLD, CBC, LACTIC, CMP, PT #### [address] Monocytes/100 WBC (Bld) 9.6 % Normal . [facility] Comment on above: Performed By: #### P TT, CUBLD, CBC, LACTIC, CMP, PT #### [address] Neutrophils (Bld) [#/Vol] 7.2 10*3/uL Normal 1.8-7.7 [facility] Comment on above: Performed By: #### P TT, CUBLD, CBC, LACTIC, CMP, PT #### [address] Neutrophils/100 WBC (Bld) 79.0 % Normal . [facility] Comment on above: Performed By: #### P TT, CUBLD, CBC, LACTIC, CMP, PT #### [address] NRBC% 0.0 /100{WBC} Normal 0-0.5 [facility] Comment on above: Performed By: #### P TT, CUBLD, CBC, LACTIC, CMP, PT #### [address] Platelet mean volume (Bld) [Entitic vol] 7.0 fL Normal 6.6-10.1 [facility] Comment on above: Performed By: #### P TT, CUBLD, CBC, LACTIC, CMP, PT #### [place] [address] [place] Platelets (Bld) [#/Vol] 202 10*3/uL Normal 150-450 [facility] Comment on above: Performed By: #### P TT, CUBLD, CBC, LACTIC, CMP, PT #### [address] [place] [address] [place] RBC (Bld) [#/Vol] 3.15 10*6/uL Low 3.90-5.60 [facility] Comment on above: Performed By: #### P TT, CUBLD, CBC, LACTIC, CMP, PT #### [address] WBC (Bld) [#/Vol] 9.1 10*3/uL Normal 4.1-10.5 [facility] Comment on above: Performed By: #### P TT, CUBLD, CBC, LACTIC, CMP, PT #### [address] Comprehensive Metabolic Pane [place] 10-18-2023 Albumin [Mass/Vol] 3.9 g/dL Normal 3.5-5.7 [facility] Comment on above: Performed By: #### P TT, CUBLD, CBC, LACTIC, CMP, PT #### [address] Albumin/Globulin [Mass ratio] 1.1 {ratio} Normal [facility] Comment on above: Performed By: #### P TT, CUBLD, CBC, LACTIC, CMP, PT #### [address] ALP [Catalytic activity/Vol] 65 U/L Normal 34-104 [facility] Comment on above: Performed By: #### P TT, CUBLD, CBC, LACTIC, CMP, PT #### [address] ALT [Catalytic activity/Vol] 9 U/L Normal 7-52 [facility] Comment on above: Performed By: #### P TT, CUBLD, CBC, LACTIC, CMP, PT #### [address] Anion gap [Moles/Vol] 9.8 mmol/L Normal 6.0-15.0 [facility] Comment on above: Performed By: #### P TT, CUBLD, CBC, LACTIC, CMP, PT #### [facility] [address] AST [Catalytic activity/Vol] 12 U/L Low 13-39 [facility] Comment on above: Performed By: #### P TT, CUBLD, CBC, LACTIC, CMP, PT #### [facility] [address] Bilirubin [Mass/Vol] 0.5 mg/dL Normal 0.3-1.0 [facility] Comment on above: Performed By: #### P TT, CUBLD, CBC, LACTIC, CMP, PT #### [facility] [address] Calcium [Mass/Vol] 9.0 mg/dL Normal 8.6-10.3 [facility] Comment on above: Performed By: #### P TT, CUBLD, CBC, LACTIC, CMP, PT #### [address] Chloride [Moles/Vol] 105 mmol/L Normal 98-107 [facility] Comment on above: Performed By: #### P TT, CUBLD, CBC, LACTIC, CMP, PT #### [address] CO2 [Moles/Vol] 23.9 mmol/L Normal 21.0-31.0 [facility] Comment on above: Performed By: #### P TT, CUBLD, CBC, LACTIC, CMP, PT #### [facility] [address] [place] [address] [place] Creatinine [Mass/Vol] 1.98 mg/dL High 0.70-1.30 [facility] Comment on above: Performed By: #### P TT, CUBLD, CBC, LACTIC, CMP, PT #### [place] [address] [place] Creatinine Clr Calc Pharmacy 35.87 Normal [facility] Comment on above: Result Comment: PERF ORMED BY: [place] [address] PATHOLOGIST FIELD TRAFFIC INVESTIGATOR JIANLAN SUN M.D. Performed By: #### P TT, CUBLD, CBC, LACTIC, CMP, PT #### [facility] [address] GFR/1.73 sq M.predicted MDRD (S/P/Bld) [Vol rate/Area] 34.364 mL/min/{1.73_m2} Normal [facility] Comment on above: Performed By: #### P TT, CUBLD, CBC, LACTIC, CMP, PT #### [facility] [address] Globulin (S) [Mass/Vol] 3.7 g/dL [facility] Comment on above: Performed By: #### P TT, CUBLD, CBC, LACTIC, CMP, PT #### [facility] [address] Glucose [Mass/Vol] 114 mg/dL High 70-100 [facility] Comment on above: Result Comment: [facility] Glucose Reference Range is dependent on time and content of last meal. Glucose of more than 200 mg/dL in a nonstressed, ambulatory subject supports the diagnosis of Diabetes Mellitus. ADA recommended reference range Performed By: #### P TT, CUBLD, CBC, LACTIC, CMP, PT #### [facility] [address] Potassium [Moles/Vol] 3.7 mmol/L Normal 3.5-5.1 [facility] Comment on above: Performed By: #### P TT, CUBLD, CBC, LACTIC, CMP, PT #### [facility] [address] Protein [Mass/Vol] 7.6 g/dL Normal 6.4-8.9 [facility] Comment on above: Performed By: #### P TT, CUBLD, CBC, LACTIC, CMP, PT #### [facility] [address] Sodium [Moles/Vol] 135 mmol/L Low 136-145 [facility] Comment on above: Performed By: #### P TT, CUBLD, CBC, LACTIC, CMP, PT #### [facility] [address] [place] [address] [place] Urea nitrogen [Mass/Vol] 31 mg/dL High 7- [facility] Comment on above: Performed By: #### P TT, CUBLD, CBC, LACTIC, CMP, PT #### [facility] [address] [place] [address] [place] Creatinine [Mass/volume] in Serum or PlasmaOrdered By: Michael Amador on 10-18-2023 Creatinine [Mass/Vol] 1.98 mg/dL 0.70-1.30 [facility] ECG 12 lead ECGon 10-18-2023 ECG 12 lead ECG [facility] Main [place] [address] [place] [address] Electrocardiograph Report Signed Patient: Niels Mccullough JR MR#: [id number] : 1945 Acct:[id number] Age/Sex: 77 / M ADM Date: 10/18/23 Loc: ER Room: Type: [facility] ER Attending Dr: Ordering Provider: [...] MUS Signed By Jayesh Alex MD 10/18/23 1532 Normal [facility] Eosinophils Auto (Bld) [#/Vo l]Ordered By: Michael Amador on 10-18-2023 Eosinophils (Bld) [#/Vol] 0.1 10*3/uL 0.0-0.45 [facility] Eosinophils/100 WBC Auto (Bl d)Ordered By: Michael Amador on 10-18-2023 Eosinophils/100 WBC (Bld) 0.9 % . [facility] Erythrocyte distribution wid th Auto (RBC) [Ratio]Ordered By: Michael Amador on 10-18-2023 Erythrocyte distribution width (RBC) [Ratio] 14.9 % 12.0-14.8 [facility] Globulin Calc (S) [Mass/Vol] Ordered By: Michael Amador on 10-18-2023 Globulin (S) [Mass/Vol] 3.7 g/dL [facility] Glucose [Mass/volume] in Ser um or PlasmaOrdered By: Michael Amador on 10-18-2023 Glucose [Mass/Vol] 114 mg/dL 70-100 [facility] Comment on above: ADA recommended refe rence rangeRandom Glucose Reference Range is dependent on time and content of last meal. Glucose of more than 200 mg/dL in a nonstressed, ambulatory subject supports the diagnosis of Diabetes Mellitus. Hematocrit Auto (Bld) [Volum e fraction]Ordered By: Michael Amador on 10-18-2023 Hematocrit (Bld) [Volume fraction] 29.9 % 38.8-50.0 [facility] Hemoglobin [Mass/volume] in BloodOrdered By: Michael Amador on 10-18-2023 Hemoglobin (Bld) [Mass/Vol] 10.2 g/dL 13.0-17.0 [facility] INR in Platelet poor plasma by Coagulation assayOrdered By: Michael Amador on 10-18-2023 INR Coag (PPP) [Relative time] 1.4 {INR} [facility] Comment on above: INR Therapeutic Rang [...] on 10-18-2023 Lactate [Moles/Vol] 0.7 mmol/L 0.5-2.2 [facility] Lactic Acidon 10-18-2023 Lactate [Moles/Vol] 0.7 mmol/L Normal 0.5-2.2 [facility] Comment on above: Result Comment: PERF ORMED BY: [facility] [address] [place] [address] PATHOLOGIST FIELD TRAFFIC INVESTIGATOR DAVID VERA M.D. Performed By: #### P TT, CUBLD, CBC, LACTIC, CMP, PT #### [facility] [address] Leukocytes [#/volume] correc alexys for nucleated erythrocytes in Blood by Automated counOrdered By: Michael Amador on 10-18-2023 WBC corrected for nucl RBC Auto (Bld) [#/Vol] 9.1 10*3/uL 4.1-10.5 [facility] Lymphocytes Auto (Bld) [#/Vo l]Ordered By: Michael Amador on 10-18-2023 Lymphocytes (Bld) [#/Vol] 0.9 10*3/uL 1.00-4.8 [facility] Lymphocytes/100 WBC Auto (Bl d)Ordered By: Michael Amador on 10-18-2023 Lymphocytes/100 WBC (Bld) 10.2 % . [facility] MCH Auto (RBC) [Entitic mass ]Ordered By: Michael Amador on 10-18-2023 MCH (RBC) [Entitic mass] 32.4 pg 27.5-35.2 [facility] MCHC Auto (RBC) [Mass/Vol]Or dered By: Michael Amador on 10-18-2023 MCHC (RBC) [Mass/Vol] 34.2 g/dL 32.5-35.6 [facility] MCV Auto (RBC) [Entitic vol] Ordered By: Michael Amador on 10-18-2023 MCV (RBC) [Entitic vol] 94.7 fL 83.5-101 [facility] Monocyte distribution width [Entitic volume] in Blood by AutomatedOrdered By: Michael Amador on 10-18-2023 Monocyte distribution width Auto (Bld) [Entitic vol] 19.23 % 0.00-20.00 [facility] Monocytes Auto (Bld) [#/Vol] Ordered By: Michael Amador on 10-18-2023 Monocytes (Bld) [#/Vol] 0.9 10*3/uL 0.0-0.8 [facility] Monocytes/100 WBC Auto (Bld) Ordered By: Michael Amador on 10-18-2023 Monocytes/100 WBC (Bld) 9.6 % . [facility] Neutrophils Auto (Bld) [#/Vo l]Ordered By: Michael Amador on 10-18-2023 Neutrophils (Bld) [#/Vol] 7.2 10*3/uL 1.8-7.7 [facility] Neutrophils/100 WBC Auto (Bl d)Ordered By: Michael Amador on 10-18-2023 Neutrophils/100 WBC (Bld) 79.0 % . [facility] No Panel InformationOrdered By: Michael Amador on 10-18-2023 Estimated GFR (CKD-EPI) 34.364 mL/Min [facility] Creatinine Clearance (Chem 35.87 [facility] Nucleated erythrocytes [Pres ence] in Blood by Automated countOrdered By: Michael Amador on 10-18-2023 Nucleated RBC Auto Ql (Bld) 0.0 /100{WBC} 0-0.5 [facility] Partial Thromboplastin Timeo n 10-18-2023 aPTT Coag (Bld) [Time] 31.2 s Normal 25.1-36.5 [facility] Comment on above: Result Comment: A he matocrit value greater than 55% may lead to inaccurate results in coagulation testing. Patients having hematocrit values >55% require a special collection tube for coagulation studies. Please contact the laboratory at [phone] for redraw instructions. PERFORMED BY: [place] [address] PATHOLOGIST FIELD TRAFFIC INVESTIGATOR DAVID VERA M.D. Performed By: #### P TT, CUBLD, CBC, LACTIC, CMP, PT #### [address] Platelet mean volume Auto (B ld) [Entitic vol]Ordered By: Michael Amador on 10-18-2023 Platelet mean volume (Bld) [Entitic vol] 7.0 fL 6.6-10.1 [facility] Platelets Auto (Bld) [#/Vol] Ordered By: Michael Amador on 10-18-2023 Platelets (Bld) [#/Vol] 202 10*3/uL 150-450 [facility] Potassium [Moles/volume] in Serum or PlasmaOrdered By: Michael Amador on 10-18-2023 Potassium [Moles/Vol] 3.7 mmol/L 3.5-5.1 [facility] Protein [Mass/volume] in Ser um or PlasmaOrdered By: Michael Amador on 10-18-2023 Protein [Mass/Vol] 7.6 g/dL 6.4-8.9 [facility] Prothrombin Time INRon 10-18 INR Coag (PPP) [Relative time] 1.4 {INR} Normal [facility] Comment on above: Result Comment: INR [...] CUBLD, CBC, LACTIC, CMP, PT #### [facility] [address] [place] [id number] [facility] PT Coag (PPP) [Time] 16.6 s High 9.0-12.9 [facility] Comment on above: Result Comment: A he matocrit value greater than 55% may lead to inaccurate results in coagulation testing. Patients having hematocrit values >55% require a special collection tube for coagulation studies. Please contact the laboratory at [phone] for redraw instructions. Performed By: #### P TT, CUBLD, CBC, LACTIC, CMP, PT #### [facility] [address] [place] [id number] [facility] Prothrombin time (PT)Ordered By: Michael Amador on 10-18-2023 PT Coag (PPP) [Time] 16.6 s 9.0-12.9 [facility] Comment on above: A hematocrit value g reater than 55% may lead to inaccurate results in coagulation testing. Patients having hematocrit values >55% require a special collection tube for coagulation studies. Please contact the laboratory at [phone] for redraw instructions. RBC Auto (Bld) [#/Vol]Ordere d By: Michael Amador on 10-18-2023 RBC (Bld) [#/Vol] 3.15 10*6/uL 3.90-5.60 [facility] Serum or plasma albumin/glob ulin mass ratioOrdered By: Michael Amador on 10-18-2023 Albumin/Globulin [Mass ratio] 1.1 {ratio} [facility] Serum or plasma anion gap de terminationOrdered By: Michael Amador on 10-18-2023 Anion gap [Moles/Vol] 9.8 mmol/L 6.0-15.0 [facility] Sodium [Moles/volume] in Ser um or PlasmaOrdered By: Michael Amador on 10-18-2023 Sodium [Moles/Vol] 135 mmol/L 136-145 [facility] Superficial Wound Cultureon 10-18-2023 Superficial [...] RESISTANT TO ALL B-LACTAM DRUGS. PERFORMED BY: [place] [address] PATHOLOGIST FIELD TRAFFIC INVESTIGATOR DAVID VERA M.D. Normal [facility] Comment on above: Performed By: #### C USUP #### [address] Urea nitrogen [Mass/volume] in Serum or PlasmaOrdered By: Michael Amador on 10-18-2023 Urea nitrogen [Mass/Vol] 31 mg/dL 05-20 [facility] WBC Auto (Bld) [#/Vol]Ordere d By: Michael Amador on 10-18-2023 WBC (Bld) [#/Vol] 9.1 10*3/uL 4.1-10.5 [facility] BNPon 10-30-2022 Natriuretic peptide B (Bld) [Mass/Vol] 4309.0 pg/mL Critically high <=1,800.0 [facility] Comment on above: Performed By: #### C BC #### [facility] [address] [place] [address] Dr. Kelsea Guillermo CBC AUTO DIFFon 10-30-2022 BASO # 0.0 103/ul Normal 0.0-0.1 [facility] Comment on above: Performed By: #### C BC #### [facility] [address] [place] [address] Dr. Kelsea Guillermo Basophils/100 WBC (Bld) 0.4 % Normal 0.2-2.0 [facility] Comment on above: Performed By: #### C BC #### [facility] [address] [place] [address] [address] Kelsea Guillermo EO # 0.5 103/ul Normal 0.0-0.7 [facility] Comment on above: Performed By: #### C BC #### [facility] [address] [place] [address] Dr. Kelsea Guillermo Eosinophils/100 WBC (Bld) 6.4 % Normal 0.9-7.0 [facility] Comment on above: Performed By: #### C BC #### [facility] [address] [place] [address] Dr. Kelsea Guillermo Erythrocyte distribution width (RBC) [Ratio] 13.3 % Normal 11.0-15.0 [facility] Comment on above: Performed By: #### C BC #### [facility] [address] [place] [address] Dr. Kelsea Guillermo Hematocrit (Bld) [Volume fraction] 33.9 % Critically low 42.0-54.0 [facility] Comment on above: Performed By: #### C BC #### [facility] [address] [place] [address] Dr. Kelsea Guillermo Hemoglobin (Bld) [Mass/Vol] 11.6 g/dL Critically low 14.0-18.0 [facility] Comment on above: Performed By: #### C BC #### [facility] [address] [place] [address] Dr. Kelsea Guillermo IG # 0.02 10e3/ul Normal 0.00-0.03 [facility] Comment on above: Performed By: #### C BC #### [facility] [address] [place] [address] Dr. Kelsea Guillermo IG % 0.3 % Normal 0.0-0.5 [facility] Comment on above: Performed By: #### C BC #### [facility] [address] [place] [address] Dr. Kelsea Guillermo LYMPH # 1.0 103/ul Critically low 1.2-3.8 [facility] Comment on above: Performed By: #### C BC #### [facility] [address] [place] [address] Dr. Kelsea Guillermo Lymphocytes/100 WBC (Bld) 14.0 % Critically low 20.5-60.0 [facility] Comment on above: Performed By: #### C BC #### [facility] [address] [place] [address] Dr. Kelsea Guillermo MANUAL DIFF REQ NO Normal [facility] Comment on above: Performed By: #### C BC #### [facility] [address] [place] [address] Dr. Kelsea Guillermo MCH (RBC) [Entitic mass] 32.5 pg Normal 25.9-34.0 [facility] Comment on above: Performed By: #### C BC #### [facility] [address] [place] [address] Dr. Kelsea Guillermo MCHC (RBC) [Mass/Vol] 34.2 g/dL Normal 29.9-35.2 [facility] Comment on above: Performed By: #### C BC #### [facility] [address] [place] [address] Dr. Kelsea Guillermo MCV (RBC) [Entitic vol] 95.0 fL Critically high 80.0-94.0 [facility] Comment on above: Performed By: #### C BC #### [facility] [address] [place] [address] Dr. Kelsea Guillermo MONO # 0.6 103/ul Normal 0.3-0.8 [facility] Comment on above: Performed By: #### C BC #### [facility] [address] [place] [address] Dr. Kelsea Guillermo Monocytes/100 WBC (Bld) 8.7 % Normal 1.7-12.0 [facility] Comment on above: Performed By: #### C BC #### [facility] [address] [place] [address] Dr. Kelsea Guillermo NEUT # 5.0 103/ul Normal 1.4-6.5 [facility] Comment on above: Performed By: #### C BC #### [facility] [address] [place] [address] Dr. Kelsea Guillermo Neutrophils/100 WBC (Bld) 70.2 % Normal 43.0-75.0 [facility] Comment on above: Performed By: #### C BC #### [facility] [address] [place] [address] Dr. Kelsea Guillermo Platelet mean volume (Bld) [Entitic vol] 9.1 fL Critically low 9.5-13.5 [facility] Comment on above: Performed By: #### C BC #### [facility] [address], [place] [address] Dr. Kelsea Guillermo PLT 171 103/ul Normal 150-450 [facility] Comment on above: Performed By: #### C BC #### [facility] [address], [place] [address] Dr. Kelsea Guillermo RBC 3.57 106/ul Critically low 4.70-6.10 [facility] Comment on above: Performed By: #### C BC #### [facility] [address], [place] [address] Dr. Kelsea Guillermo WBC 7.2 103/ul Normal 4.0-11.0 [facility] Comment on above: Performed By: #### C BC #### [facility] [address], [place] [address] HEAD WO CONon [...] Truong MCCANN Date: 2022-10-30 21:14 Normal [facility] Cov[facility]on SARS-CoV-2 (COVID-19) RNA SHALA+probe Ql (Unsp spec) Not detected Normal NOT DETECTED [facility] Comment on above: Result Comment: When [...] for this test is supported by the [employer] of Health and Human Service's declaration that [...] longer be used). Performed By: #### C [facility] #### [facility] [address] [place] [address] Dr. Kelsea Guillermo INFLUENZA A AND B AGon 10-30 [facility] SEE BELOW Normal [facility] Comment on above: Result Comment: Nega tive for Flu A protein angiten. Infection due to Flu A cannot be ruled out. Flu A angiten in the sample may be below the detection limit of the test. Performed By: #### C #### [facility] [address] [place] [address] Dr. Kelse[facility]ill[facility] Normal [facility] Comment on above: Result Comment: Nega tive for Flu B protein antigen. Infection due to Flu B cannot be ruled out. Flu B antigen in the sample may be below the detection limit of the test. Performed By: #### C BC #### [facility] [address] [place] [address] Dr. Kelsea Guillermo INFLUENZA A AG Negative Normal NEGATIVE SEE COMMENT [facility] Comment on above: Performed By: #### C BC #### [facility] [address] [place] [address] Dr. Kelsea Guillermo INFLUENZA B AG Negative Normal NEGATIVE SEE COMMENT [facility] Comment on above: Performed By: #### C BC #### [facility] [address] [place] [address] Dr. Kelsea Guillermo PROF 14(COMP METB)on 023 Albumin [Mass/Vol] 3.7 g/dL Normal 3.4-5.0 [facility] Comment on above: Performed By: #### C BC #### [facility] [address] [place] [address] Dr. Kelsea Guillermo Albumin/Globulin [Mass ratio] 0.9 {ratio} Normal [facility] Comment on above: Performed By: #### C BC #### [facility] [address] [place] [address] Dr. Kelsea Guillermo ALP [Catalytic activity/Vol] 110 U/L Normal 46-116 [facility] Comment on above: Performed By: #### C BC #### [facility] [address] [place] [address] Dr. Kelsea Guillermo ALT [Catalytic activity/Vol] 12 U/L Critically low 16-63 [facility] Comment on above: Performed By: #### C BC #### [facility] [address] [place] [address] Dr. Kelsea Guillermo Anion gap [Moles/Vol] 12.3 mmol/L Normal [facility] Comment on above: Performed By: #### C BC #### [facility] [address] [place] [address] Dr. Kelsea Guillermo AST [Catalytic activity/Vol] 18 U/L Normal 15-37 [facility] Comment on above: Performed By: #### C BC #### [facility] [address] [place] [address] [address] Kelsea Guillermo Bilirubin [Mass/Vol] 0.3 mg/dL Normal 0.2-1.0 [facility] Comment on above: Performed By: #### C BC #### [facility] [address] [address] [address] Kelsea Guillermo Calcium [Mass/Vol] 8.4 mg/dL Critically low 8.5-10.1 [facility] Comment on above: Performed By: #### C BC #### [facility] [address] [address] [address] Kelsea Guillermo Chloride [Moles/Vol] 100 mmol/L Normal 98-107 [facility] Comment on above: Performed By: #### C BC #### [facility] [address] [place] [address] Dr. Kelsea Guillermo CO2 [Moles/Vol] 26.7 mmol/L Normal 21.0-32.0 [facility] Comment on above: Performed By: #### C BC #### [facility] [address] [place] [address] Dr. Kelsea Guillermo Creatinine [Mass/Vol] 2.01 mg/dL Critically high 0.70-1.30 [facility] Comment on above: Performed By: #### C BC #### [facility] [address] [place] [address] Dr. Kelsea Guillermo EGFR-AF LAO 39 mL/min/1.73m2 Critically low >=60 [facility] Comment on above: Performed By: #### C BC #### [facility] [address] [place] [address] Dr. Kelsea Guillermo EGFR-NON AF LAO 32 mL/min/1.73m2 Critically low >=60 [facility] Comment on above: Performed By: #### C BC #### [facility] [address] [place] [address] Dr. Kelsea Guillermo Globulin (S) [Mass/Vol] 3.9 g/dL Normal [facility] Comment on above: Performed By: #### C BC #### [facility] [address] [address] [address] Kelsea Guillermo Glucose [Mass/Vol] 108 mg/dL Critically high 74-106 [facility] Comment on above: Performed By: #### C BC #### [facility] [address] [address] [address] Kelsea Guillermo Potassium [Moles/Vol] 3.0 mmol/L Critically low 3.5-5.1 [facility] Comment on above: Performed By: #### C BC #### [facility] [address] [address] [address] Kelsea Guillermo Protein [Mass/Vol] 7.6 g/dL Normal 6.4-8.2 [facility] Comment on above: Performed By: #### C BC #### [facility] [address] [address] [address] Kelsea Guillermo Sodium [Moles/Vol] 136 mmol/L Normal 136-145 [facility] Comment on above: Performed By: #### C BC #### [facility] [address] [address] [address] Kelsea Guillermo Urea nitrogen [Mass/Vol] 24.0 mg/dL Critically high 7.0-18.0 [facility] Comment on above: Performed By: #### C BC #### [facility] [address] [address] [address] Kelsea Guillermo Urea nitrogen/Creatinine [Mass ratio] 11.9 mg/mg Normal [facility] Comment on above: Performed By: #### C BC #### [facility] [address] [address] [address] Kelsea Guillermo PROTIMEon 10-30-2022 INR Coag (PPP) [Relative time] 2.35 {INR} Normal [facility] Comment on above: Performed By: #### P T, PTT #### [facility] [address] [place] [address] Dr. Kelsea Guillermo INR GUIDELINES SEE BELOW Normal [facility] Comment on above: Result Comment: AGUILA RED INR: 2.0 - 3.0 CONDITIONS NOT LISTED BELOW 2.5 - 3.5 FOR PROSTHETIC HEART VALVE REPLACEMENT 2.5 - 3.5 RECURRENT THROMBOSIS Performed By: #### P T, PTT #### [facility] [address] [address] [address] Kelsea Guillermo PT Coag (PPP) [Time] 24.0 s Critically high 9.0-11.6 [facility] Comment on above: Performed By: #### P T, PTT #### [facility] [address] [address] [address] Kelsea Guillermo PTTon 10-30-2022 aPTT Coag (Bld) [Time] 47.8 s Critically high 22.3-36. 2 [facility] Comment on above: Performed By: #### P T, PTT #### [facility] [address] [place] [address] Dr. Kelsea Guillermo TROPONIN, HIGH SENSITIVITYon 10-30-2022 HSTROP 21.8 pg/mL Normal 4.0-76.1 [facility] Comment on above: Result Comment: CUT- OFF POINTS HAVE BEEN ESTABLISHED BASED ON THE FOURTH UNIVERSAL DEFINITIONS OF MYOCARDIAL INFARCTION. THE UPPER REFERENCE LIMIT (URL) OF TROPONIN, DEFINED THE 99TH PERCENTILE OF cTnI DISTRIBUTION IN A REFERENCE POPULATION, HAS BEEN CONFIRMED THE DECISION THRESHOLD FOR CO DIAGNOSIS. Performed By: #### C BC #### [facility] [address] [place] [address] Dr. Kelsea Guillermo XR CHEST 1 Von [...] MIKA MARI Date: 2022-10-30 20:10 Normal [facility] PROTIMEon 09-10-2022 INR Coag (PPP) [Relative time] 2.04 {INR} Normal [facility] Comment on above: Performed By: #### C BC #### [facility] [address] [place] [address] Dr. Kelsea Guillermo INR GUIDELINES SEE BELOW Normal [facility] Comment on above: Result Comment: AGUILA RED INR: 2.0 - 3.0 CONDITIONS NOT LISTED BELOW 2.5 - 3.5 FOR PROSTHETIC HEART VALVE REPLACEMENT 2.5 - 3.5 RECURRENT THROMBOSIS Performed By: #### C BC #### [facility] [address] [place] [address] Dr. Kelsea Guillermo PT Coag (PPP) [Time] 21.0 s Critically high 9.0-11.6 [facility] Comment on above: Performed By: #### C BC #### [facility] [address] [place] [address] Dr. Kelsea Guillermo CARDIAC ISIDRO 3-6on 2 CK [Catalytic activity/Vol] 62 U/L Normal 39-308 [facility] Comment on above: Performed By: #### C MREP #### [facility] [address] [place] [address] Dr. Kelsea Guillermo CK.MB [Mass/Vol] 1.28 ng/mL Normal <=3.60 [facility] Comment on above: Performed By: #### C MREP #### [facility] [address] [place] [address] Dr. Kelsea Guillermo HSTROP 19.5 pg/mL Normal 4.0-76.1 [facility] Comment on above: Result Comment: CUT- OFF POINTS HAVE BEEN ESTABLISHED BASED ON THE FOURTH UNIVERSAL DEFINITIONS OF MYOCARDIAL INFARCTION. THE UPPER REFERENCE LIMIT (URL) OF TROPONIN, DEFINED THE 99TH PERCENTILE OF cTnI DISTRIBUTION IN A REFERENCE POPULATION, HAS BEEN CONFIRMED THE DECISION THRESHOLD FOR CO DIAGNOSIS. Performed By: #### C MREP #### [facility] [address] [place] [address] ABD/PELVIS WO CONon [...] by: SARY RIGGS Date: 2022-05-13 22:51 Normal [facility] LACTATE/LACTIC ACIDon 2021 Lactate [Moles/Vol] 0.5 mmol/L Normal 0.4-1.9 [facility] Comment on above: Performed By: #### L ACT #### [facility] [address] [place] [address] [address] Kelsea Guillermo CARDIAC ISIDRO ADMITon 022 CK [Catalytic activity/Vol] 71 U/L Normal 39-308 [facility] Comment on above: Performed By: #### C MP, CMADM #### [facility] [address], [place] [address] Dr. eKlsea Guillermo CK.MB [Mass/Vol] 1.26 ng/mL Normal <=3.60 [facility] Comment on above: Performed By: #### C ALICIA, CMADM #### [facility] [address] [address] [address] Kelsea Guillermo HSTROP 17.5 pg/mL Normal 4.0-76.1 [facility] Comment on above: Result Comment: CUT- OFF POINTS HAVE BEEN ESTABLISHED BASED ON THE FOURTH UNIVERSAL DEFINITIONS OF MYOCARDIAL INFARCTION. THE UPPER REFERENCE LIMIT (URL) OF TROPONIN, DEFINED THE 99TH PERCENTILE OF cTnI DISTRIBUTION IN A REFERENCE POPULATION, HAS BEEN CONFIRMED THE DECISION THRESHOLD FOR CO DIAGNOSIS. Performed By: #### C ALICIA, CMADM #### [facility] [address] [address] [address] Kelsea Guillermo ROLAND 115 ng/mL Critically high 16-96 [facility] Comment on above: Performed By: #### C ALICIA, CMADM #### [facility] [address] [place] [address] Dr. Kelsea Guillermo CBC AUTO DIFFon 05-13-2022 BASO # 0.0 103/ul Normal 0.0-0.1 [facility] Comment on above: Performed By: #### C BC #### [facility] [address] [address] [address] Kelsea Guillermo Basophils/100 WBC (Bld) 0.5 % Normal 0.2-2.0 [facility] Comment on above: Performed By: #### C BC #### [facility] [address] [place] [address] Dr. Kelsea Guillermo EO # 0.4 103/ul Normal 0.0-0.7 [facility] Comment on above: Performed By: #### C BC #### [facility] [address] [address] [address] Kelsea Guillermo Eosinophils/100 WBC (Bld) 5.3 % Normal 0.9-7.0 [facility] Comment on above: Performed By: #### C BC #### [facility] [address] [place] [address] Dr. Kelsea Guillermo Erythrocyte distribution width (RBC) [Ratio] 14.0 % Normal 11.0-15.0 [facility] Comment on above: Performed By: #### C BC #### [facility] [address] [place] [address] Dr. Kelsea Guillermo Hematocrit (Bld) [Volume fraction] 36.7 % Critically low 42.0-54.0 [facility] Comment on above: Performed By: #### C BC #### [facility] [address] [place] [address] Dr. Kelsea Guillermo Hemoglobin (Bld) [Mass/Vol] 11.8 g/dL Critically low 14.0-18.0 [facility] Comment on above: Performed By: #### C BC #### [facility] [address] [place] [address] Dr. Kelsea Guillermo IG # 0.09 10e3/ul Critically high 0.00-0.03 [facility] Comment on above: Performed By: #### C BC #### [facility] [address] [place] [address] Dr. Kelsea Guillermo IG % 1.2 % Critically high 0.0-0.5 [facility] Comment on above: Performed By: #### C BC #### [facility] [address] [place] [address] Dr. Kelsea Guillermo LYMPH # 1.6 103/ul Normal 1.2-3.8 [facility] Comment on above: Performed By: #### C BC #### [facility] [address] [place] [address] Dr. Kelsea Guillermo Lymphocytes/100 WBC (Bld) 21.9 % Normal 20.5-60.0 [facility] Comment on above: Performed By: #### C BC #### [facility] [address] [place] [address] Dr. Kelsea Guillermo MANUAL DIFF REQ NO Normal [facility] Comment on above: Performed By: #### C BC #### [facility] [address] [place] [address] Dr. Kelsea Guillermo MCH (RBC) [Entitic mass] 31.7 pg Normal 25.9-34.0 [facility] Comment on above: Performed By: #### C BC #### [facility] [address] [address] [address] Kelsea Guillermo MCHC (RBC) [Mass/Vol] 32.2 g/dL Normal 29.9-35.2 [facility] Comment on above: Performed By: #### C BC #### [facility] [address] [address] [address] Kelsea Guillermo MCV (RBC) [Entitic vol] 98.7 fL Critically high 80.0-94.0 [facility] Comment on above: Performed By: #### C BC #### [facility] [address] [place] [address] Dr. Kelsea Guillermo MONO # 0.7 103/ul Normal 0.3-0.8 [facility] Comment on above: Performed By: #### C BC #### [facility] [address] [place] [address] Dr. Kelsea Guillermo Monocytes/100 WBC (Bld) 9.4 % Normal 1.7-12.0 [facility] Comment on above: Performed By: #### C BC #### [facility] [address] [place] [address] Dr. Kelsea Guillermo NEUT # 4.5 103/ul Normal 1.4-6.5 [facility] Comment on above: Performed By: #### C BC #### [facility] [address] [place] [address] Dr. Kelsea Guillermo Neutrophils/100 WBC (Bld) 61.7 % Normal 43.0-75.0 [facility] Comment on above: Performed By: #### C BC #### [facility] [address] [place] [address] Dr. Kelsea Guillermo Platelet mean volume (Bld) [Entitic vol] 9.3 fL Critically low 9.5-13.5 [facility] Comment on above: Performed By: #### C BC #### [facility] [address] [place] [address] Dr. Kelsea Guillermo PLT 207 103/ul Normal 150-450 [facility] Comment on above: Performed By: #### C BC #### [facility] [address] [place] [address] Dr. Kelsea Guillermo RBC 3.72 106/ul Critically low 4.70-6.10 [facility] Comment on above: Performed By: #### C BC #### [facility] [address] [place] [address] Dr. Kelsea Guillermo WBC 7.4 103/ul Normal 4.0-11.0 [facility] Comment on above: Performed By: #### C BC #### [facility] [address] [place] [address] Dr. Kelsea Guillermo ER URINE PROFILEon 2 Bilirubin Ql (U) Negative Normal NEGATIVE [facility] Comment on above: Performed By: #### C BC #### [facility] [address] [place] [address] Dr. Kelsea Guillermo Clarity (U) CLEAR Normal CLEAR [facility] Comment on above: Performed By: #### C BC #### [facility] [address] [place] [address] Dr. Kelsea Guillermo Color (U) LT. YELLOW Normal YELLOW [facility] Comment on above: Performed By: #### C BC #### [facility] [address] [place] [address] Dr. Kelsea CAMPBELL A micrscopic examina tion will be performed if indicated. Normal [facility] Comment on above: Performed By: #### C BC #### [facility] [address] [place] [address] Dr. Kelsea Guillermo Glucose Ql (U) Negative Normal NEGATIVE [facility] Comment on above: Performed By: #### C BC #### [facility] [address] [place] [address] Dr. Kelsea Guillermo Hemoglobin Ql (U) Negative Normal NEGATIVE [facility] Comment on above: Performed By: #### C BC #### [facility] [address] [place] [address] Dr. Kelsea Guillermo Ketones Ql (U) Negative Normal NEGATIVE [facility] Comment on above: Performed By: #### C BC #### [facility] [address] [place] [address] Dr. Kelsea Guillermo LEUKOCYTES Negative Normal NEGATIVE [facility] Comment on above: Performed By: #### C BC #### [facility] [address] [place] [address] Dr. Kelsea Guillermo Nitrite Ql (U) Negative Normal NEGATIVE [facility] Comment on above: Performed By: #### C BC #### [facility] [address] [place] [address] Dr. Kelsea Guillermo pH (U) 5.5 [pH] Normal 5-9 [facility] Comment on above: Performed By: #### C BC #### [facility] [address] [place] [address] Dr. Kelsea Guillermo Protein (U) [Mass/Vol] 30 mg/dL Abnormal NEGAT CANDACE/ TRACE [facility] Comment on above: Performed By: #### C BC #### [facility] [address] [place] [address] Dr. Kelsea Guillermo SPEC GRAVITY 1.020 Normal 1.005-<=1. 025 [facility] Comment on above: Performed By: #### C BC #### [facility] [address] [place] [address] Dr. Kelsea Guillermo UR MICRO IND NOT INDICATED Normal [facility] Comment on above: Performed By: #### C BC #### [facility] [address] [place] [address] Dr. Kelsea Guillermo Urobilinogen Qn (U) 0.2 {Jennifer'U}/dL Normal 0.2 - 1. 0 [facility] Comment on above: Performed By: #### C BC #### [facility] [address] [place] [address] Dr. Kelsea Guillermo LACTATE/LACTIC ACIDon 2021 Lactate [Moles/Vol] 0.8 mmol/L Normal 0.4-1.9 [facility] Comment on above: Performed By: #### C BC #### [facility] [address] [place] [address] Dr. Kelsea Guillermo PROF 14(COMP METB)on 022 Albumin [Mass/Vol] 3.7 g/dL Normal 3.4-5.0 [facility] Comment on above: Performed By: #### C MARK VARGAS #### [facility] [address] [address] [address] Kelsea Guillermo Albumin/Globulin [Mass ratio] 0.9 {ratio} Normal [facility] Comment on above: Performed By: #### C ALICIA, MARK #### [facility] [address] [address] [address] Kelsea Guillermo ALP [Catalytic activity/Vol] 133 U/L Critically high 46-116 [facility] Comment on above: Performed By: #### C MARK VARGAS #### [facility] [address] [address] [address] Kelsea Guillermo ALT [Catalytic activity/Vol] 18 U/L Normal 16-63 [facility] Comment on above: Performed By: #### C MARK VARGAS #### [facility] [address] [address] [address] Kelsea Guillermo Anion gap [Moles/Vol] 12.5 mmol/L Normal [facility] Comment on above: Performed By: #### C MARK VARGAS #### [facility] [address] [place] [address] Dr. Kelsea Guillermo AST [Catalytic activity/Vol] 14 U/L Critically low 15-37 [facility] Comment on above: Performed By: #### C MARK VARGAS #### [facility] [address] [address] [address] Kelsea Guillermo Bilirubin [Mass/Vol] 0.3 mg/dL Normal 0.2-1.0 [facility] Comment on above: Performed By: #### C MARK VARGAS #### [facility] [address] [address] [address] Kelsea Guillermo Calcium [Mass/Vol] 9.0 mg/dL Normal 8.5-10.1 [facility] Comment on above: Performed By: #### C MARK VARGAS #### [facility] [address] [address] [address] Kelsea Guillermo Chloride [Moles/Vol] 102 mmol/L Normal 98-107 [facility] Comment on above: Performed By: #### C ALICIA, CMADM #### [facility] [address] [address] [address] Kelsea Guillermo CO2 [Moles/Vol] 27.7 mmol/L Normal 21.0-32.0 [facility] Comment on above: Performed By: #### C ALICIA, CMADM #### [facility] [address] [address] [address] Kelsea Guillermo Creatinine [Mass/Vol] 1.83 mg/dL Critically high 0.70-1.30 [facility] Comment on above: Performed By: #### C ALICIA, CMADM #### [facility] [address] [place] [address] Dr. Kelsea Guillermo EGFR-AF LAO 44 mL/min/1.73m2 Critically low >=60 [facility] Comment on above: Performed By: #### C ALICIA, CMADM #### [facility] [address] [address] [address] Kelsea Guillermo EGFR-NON AF LAO 36 mL/min/1.73m2 Critically low >=60 [facility] Comment on above: Performed By: #### C ALICIA, CMADM #### [facility] [address] [place] [address] Dr. Kelsea Guillermo Globulin (S) [Mass/Vol] 4.2 g/dL Normal [facility] Comment on above: Performed By: #### C ALICIA, CMADM #### [facility] [address] [address] [address] Kelsea Guillermo Glucose [Mass/Vol] 101 mg/dL Normal 74-106 [facility] Comment on above: Performed By: #### C ALICIA, CMADM #### [facility] [address] [place] [address] Dr. Kelsea Guillermo Potassium [Moles/Vol] 4.2 mmol/L Normal 3.5-5.1 [facility] Comment on above: Performed By: #### C ALICIA, CMADM #### [facility] [address] [address] [address] Kelsea Guillermo Protein [Mass/Vol] 7.9 g/dL Normal 6.4-8.2 [facility] Comment on above: Performed By: #### C ALICIA, CMADM #### [facility] [address], [place] [address] Dr. Kelsea Guillermo Sodium [Moles/Vol] 138 mmol/L Normal 136-145 [facility] Comment on above: Performed By: #### C ALICIA, CMADM #### [facility] [address] [address] [address] Kelsea Guillermo Urea nitrogen [Mass/Vol] 24.0 mg/dL Critically high 7.0-18.0 [facility] Comment on above: Performed By: #### C ALICIA, CMADM #### [facility] [address] [address] [address] Kelsea Guillermo Urea nitrogen/Creatinine [Mass ratio] 13.1 mg/mg Normal [facility] Comment on above: Performed By: #### C ALICIA, CMADM #### [facility] [address] [address] [address] Kelsea Guillermo XR CHEST 1 Von [...] DEVENDRA GUTIERREZ Date: 2022-05-13 20:48 Normal [facility] HIP LEFT 1 OR 2 VWS WITH PEL VISon 02-15-2022 HIP LEFT 1 OR 2 VWS WITH PELVIS [facility] Department of Radiology [address] [place] [id number] Patient Name: NIELS MCCULLOUGH : 1945 [...] arthroplasty. Electronically signed: Mika Bolaños. Transcribed by: [id number], User Resident: Electronically Signed by: MIKA BOLAÑOS @ 02/18/2022 11:21 AM Normal [facility] Comment on above: Order Comment: evalu ate for Aspiration BASIC METABOLIC PANELon 04-1 Calcium [Mass/Vol] 7.7 mg/dL Low 8.6-10.3 [facility] Comment on above: Order Comment: No: D o not add to previous draw Performed By: #### 0 0071 ####[facility] [place] [address], [facility] Chloride [Moles/Vol] 106 mmol/L Normal 98-107 [facility] Comment on above: Order Comment: No: D o not add to previous draw Performed By: #### 0 0071 ####[facility] [place] [address], [place] CO2 [Moles/Vol] 24 mmol/L Normal 21-31 [facility] Comment on above: Order Comment: No: D o not add to previous draw Performed By: #### 0 0071 ####[facility] [place] [address], [facility] Creatinine [Mass/Vol] 1.56 mg/dL High 0.70-1.30 [facility] Comment on above: Order Comment: No: D o not add to previous draw Performed By: #### 0 0071 ####[facility] [place] [address], [facility] eGFR- 53 ml/min/1.73sq m Abnormal >60 [facility] Comment on above: Order Comment: No: D o not add to previous draw Result Comment: Calc ulation may not be valid for patients over 70 years Performed By: #### 0 0071 ####[facility] [place] [address], [facility] eGFR- non- 44 ml/min/1.73sq m Abnormal >60 [facility] Comment on above: Order Comment: No: D o not add to previous draw Result Comment: Calc ulation may not be valid for patients over 70 years Performed By: #### 0 0071 ####[facility] [place] [address], [place] Glucose [Mass/Vol] 104 mg/dL High 70-100 [facility] Comment on above: Order Comment: No: D o not add to previous draw Performed By: #### 0 0071 ####[facility] [place] [address], [facility] Potassium [Moles/Vol] 3.8 mmol/L Normal 3.5-5.1 [facility] Comment on above: Order Comment: No: D o not add to previous draw Performed By: #### 0 0071 ####[facility] [facility] [place] [address], [facility] Sodium [Moles/Vol] 137 mmol/L Normal 136-145 [facility] Comment on above: Order Comment: No: D o not add to previous draw Performed By: #### 0 0071 ####[facility] [facility] [place] [address], [facility] Urea nitrogen [Mass/Vol] 27 mg/dL High 7-25 [facility] Comment on above: Order Comment: No: D o not add to previous draw Performed By: #### 0 0071 ####[facility] [facility].[address] CBC COMPLETE BLOOD COUNTon 0 - Erythrocyte distribution width (RBC) [Ratio] 14.5 % Normal 11.5-15.0 [facility] Comment on above: Order Comment: LEFT HIP SCREW HEAD TISSUE Performed By: #### 3 0338 #### [facility] [address] [place] [address], [facility] Hematocrit (Bld) [Volume fraction] 24.7 % Low 39.0-50.0 [facility] Comment on above: Order Comment: LEFT HIP SCREW HEAD TISSUE Performed By: #### 3 0338 #### [facility] [address] [place] [address], [facility] Hemoglobin (Bld) [Mass/Vol] 8.1 g/dL Low 13.0-17.0 [facility] Comment on above: Order Comment: LEFT HIP SCREW HEAD TISSUE Performed By: #### 3 0338 #### [facility] [address] MCH (RBC) [Entitic mass] 32.5 pg Normal 27.0-33.0 [facility] Comment on above: Order Comment: LEFT HIP SCREW HEAD TISSUE Performed By: #### 3 0338 #### [facility] [address] MCHC (RBC) [Mass/Vol] 32.8 g/dL Normal 32.0-35.0 [facility] Comment on above: Order Comment: LEFT HIP SCREW HEAD TISSUE Performed By: #### 3 0338 #### [facility] [address] [place] [place] [address], [facility] MCV (RBC) [Entitic vol] 99.2 fL High 82.0-98.0 [facility] Comment on above: Order Comment: LEFT HIP SCREW HEAD TISSUE Performed By: #### 3 0338 #### [facility] [address] Nucleated RBC/100 WBC (Bld) [Ratio] 0 % Normal 0-0 [facility] Comment on above: Order Comment: LEFT HIP SCREW HEAD TISSUE Performed By: #### 3 0338 #### [facility] [address] [place] [address], [facility] PLAT CNT 177 10*3/uL Normal 150-400 [facility] Comment on above: Order Comment: LEFT HIP SCREW HEAD TISSUE Performed By: #### 3 0338 #### [facility] [address] [facility] [place] [address], [facility] RBC (Bld) [#/Vol] 2.49 10*6/uL Low 4.20-5.70 [facility] Comment on above: Order Comment: LEFT HIP SCREW HEAD TISSUE Performed By: #### 3 0338 #### [facility] [address] WBC (Bld) [#/Vol] 10.19 10*3/uL Normal 4.00-10.60 [facility] Comment on above: Order Comment: LEFT HIP SCREW HEAD TISSUE Performed By: #### 3 0338 #### [facility] [address] [place] [address], [facility] PROTHROMBIN TIMEon 2 INR Coag (PPP) [Relative time] 1.25 {INR} High 0.91-1.16 [facility] Comment on above: Order Comment: [...] 1995;108:231S-246S. Performed By: #### 3 0318 #### [facility] [address] [place] [address], [facility] PT Coag (PPP) [Time] 15.7 s High 12.3-14.8 [facility] Comment on above: Order Comment: LEFT HIP FLUID #2 Result Comment: ALL RESULTS MUST BE INTERPRETED WITH RESPECT TO BLOOD DRAWING ARTIFACT OR DILUTION ERROR OF ANTICOAGULANT AT THE TIME OF SAMPLING. Performed By: #### 3 0318 #### [facility] [address] [place] [address], [facility] BASIC METABOLIC PANELon 04- Calcium [Mass/Vol] 7.9 mg/dL Low 8.6-10.3 [facility] Comment on above: Order Comment: evalu ate for Aspiration Performed By: #### 0 0071 ####[facility] [place] [address], [facility] Chloride [Moles/Vol] 104 mmol/L Normal 98-107 [facility] Comment on above: Order Comment: evalu ate for Aspiration Performed By: #### 0 0071 ####[facility] [facility] [place] [address], [facility] CO2 [Moles/Vol] 27 mmol/L Normal 21-31 [facility] Comment on above: Order Comment: evalu ate for Aspiration Performed By: #### 0 0071 ####[facility] [facility] [place] [place] [address], [facility] Creatinine [Mass/Vol] 1.78 mg/dL High 0.70-1.30 [facility] Comment on above: Order Comment: evalu ate for Aspiration Performed By: #### 0 0071 ####[facility] [facility] [place] [place] [address], [facility] eGFR- 45 ml/min/1.73sq m Abnormal >60 [facility] Comment on above: Order Comment: evalu ate for Aspiration Result Comment: Calc ulation may not be valid for patients over 70 years Performed By: #### 0 0071 ####[facility] [facility] [place] [place] [address], [facility] eGFR- non- 37 ml/min/1.73sq m Abnormal >60 [facility] Comment on above: Order Comment: evalu ate for Aspiration Result Comment: Calc ulation may not be valid for patients over 70 years Performed By: #### 0 0071 ####[facility] [facility].[address] Glucose [Mass/Vol] 115 mg/dL High 70-100 [facility] Comment on above: Order Comment: evalu ate for Aspiration Performed By: #### 0 0071 ####[facility] [facility] [address], [facility] Potassium [Moles/Vol] 3.6 mmol/L Normal 3.5-5.1 [facility] Comment on above: Order Comment: evalu ate for Aspiration Performed By: #### 0 0071 ####[facility] [facility].[address] Sodium [Moles/Vol] 136 mmol/L Normal 136-145 [facility] Comment on above: Order Comment: evalu ate for Aspiration Performed By: #### 0 0071 ####[facility] [facility].[address] Urea nitrogen [Mass/Vol] 35 mg/dL High 7-25 [facility] Comment on above: Order Comment: evalu ate for Aspiration Performed By: #### 0 0071 ####[facility] CBC W/DIFFon 02-06-2022 ABS IMM GRANS 0.1 10*3/uL Normal 0.0-0.2 [facility] Comment on above: Order Comment: No: D o not add to previous draw Performed By: #### 5 0103 #### [facility] [address] [facility] [place] [address], [facility] ABS NEUTROPHILS 9.3 10*3/uL High 1.6-7.6 [facility] Comment on above: Order Comment: No: D o not add to previous draw Performed By: #### 5 0103 #### [facility] [address] [place] [address], [facility] Basophils (Bld) [#/Vol] 0.0 10*3/uL Normal 0.0-0.2 [facility] Comment on above: Order Comment: No: D o not add to previous draw Performed By: #### 5 0103 #### [facility] [address] [place] [address], [facility] Basophils/100 WBC (Bld) 0.3 % Normal 0.0-1.0 [facility] Comment on above: Order Comment: No: D o not add to previous draw Performed By: #### 5 0103 #### [facility] [address] [place] [id number], [facility] Eosinophils (Bld) [#/Vol] 0.1 10*3/uL Normal 0.0-0.5 [facility] Comment on above: Order Comment: No: D o not add to previous draw Performed By: #### 5 0103 #### [facility] [address] [place] [id number], [facility] Eosinophils/100 WBC (Bld) 0.4 % Normal 0.0-6.0 [facility] Comment on above: Order Comment: No: D o not add to previous draw Performed By: #### 5 0103 #### [facility] [address] [facility] [place] [address], [facility] Erythrocyte distribution width (RBC) [Ratio] 14.6 % Normal 11.5-15.0 [facility] Comment on above: Order Comment: No: D o not add to previous draw Performed By: #### 5 0103 #### [facility] [address] [place] [id number], [facility] Hematocrit (Bld) [Volume fraction] 25.3 % Low 39.0-50.0 [facility] Comment on above: Order Comment: No: D o not add to previous draw Performed By: #### 5 0103 #### [facility] [address] [place] [id number], [facility] Hemoglobin (Bld) [Mass/Vol] 8.3 g/dL Low 13.0-17.0 [facility] Comment on above: Order Comment: No: D o not add to previous draw Performed By: #### 5 0103 #### [facility] [address] [facility] [address], [facility] IMMATURE GRANS 0.6 % Normal 0.0-1.0 [facility] Comment on above: Order Comment: No: D o not add to previous draw Performed By: #### 5 0103 #### [facility] [address] [facility] [place] [address], [facility] Lymphocytes (Bld) [#/Vol] 1.3 10*3/uL Normal 1.2-4.0 [facility] Comment on above: Order Comment: No: D o not add to previous draw Performed By: #### 5 0103 #### [facility] [address] [facility] [place] [address], [facility] Lymphocytes/100 WBC (Bld) 10.8 % Low 20.0-45.0 [facility] Comment on above: Order Comment: No: D o not add to previous draw Performed By: #### 5 0103 #### [facility] [address] [facility] [place] [address], [facility] MCH (RBC) [Entitic mass] 31.8 pg Normal 27.0-33.0 [facility] Comment on above: Order Comment: No: D o not add to previous draw Performed By: #### 5 0103 #### [facility] [address] [facility] [place] [address], [facility] MCHC (RBC) [Mass/Vol] 32.8 g/dL Normal 32.0-35.0 [facility] Comment on above: Order Comment: No: D o not add to previous draw Performed By: #### 5 0103 #### [facility] [address] [place] [id number], [facility] MCV (RBC) [Entitic vol] 96.9 fL Normal 82.0-98.0 [facility] Comment on above: Order Comment: No: D o not add to previous draw Performed By: #### 5 0103 #### [facility] [address] [place] [address], [facility] Monocytes (Bld) [#/Vol] 1.1 10*3/uL High 0.1-1.0 [facility] Comment on above: Order Comment: No: D o not add to previous draw Performed By: #### 5 0103 #### [facility] [address] [place] [address], [facility] MONOS 9.1 % Normal 5.0-12.0 [facility] Comment on above: Order Comment: No: D o not add to previous draw Performed By: #### 5 0103 #### [facility] [address] [facility] [place] [address], [facility] Neutrophils/100 WBC (Bld) 78.8 % High 40.0-72.0 [facility] Comment on above: Order Comment: No: D o not add to previous draw Performed By: #### 5 0103 #### [facility] [address] [facility] [place] [address], [facility] Nucleated RBC/100 WBC (Bld) [Ratio] 0 % Normal 0-0 [facility] Comment on above: Order Comment: No: D o not add to previous draw Performed By: #### 5 0103 #### [facility] [address] [facility] [place] [address], [facility] PLAT CNT 182 10*3/uL Normal 150-400 [facility] Comment on above: Order Comment: No: D o not add to previous draw Performed By: #### 5 0103 #### [facility] [address] [facility] [place] [address], [facility] RBC (Bld) [#/Vol] 2.61 10*6/uL Low 4.20-5.70 [facility] Comment on above: Order Comment: No: D o not add to previous draw Performed By: #### 5 0103 #### [facility] [address] [facility]. [address] WBC (Bld) [#/Vol] 11.78 10*3/uL High 4.00-10.60 [facility] Comment on above: Order Comment: No: D o not add to previous draw Performed By: #### 5 0103 #### [facility] [address] [facility]. [address] PROTHROMBIN TIMEon 2 INR Coag (PPP) [Relative time] 1.18 {INR} High 0.91-1.16 [facility] Comment on above: Order Comment: [...] CHEST 1995;108:231S-246S. Performed By: #### 5 6101 ####[facility] PT Coag (PPP) [Time] 15.1 s High 12.3-14.8 [facility] Comment on above: Order Comment: No: D o not add to previous draw Result Comment: ALL RESULTS MUST BE INTERPRETED WITH RESPECT TO BLOOD DRAWING ARTIFACT OR DILUTION ERROR OF ANTICOAGULANT AT THE TIME OF SAMPLING. Performed By: #### 5 6101 ####[facility] [place] [address], [place] UA,MICROSCOPIC REQUIREDon Appearance (U) SL CLOUDY Abnormal CLEAR [facility] Comment on above: Order Comment: No: D o not add to previous draw Performed By: #### 9 0150 #### [facility] [address] [place] [address], [place] Bilirubin Ql (U) Negative Normal NEGATIVE [facility] Comment on above: Order Comment: No: D o not add to previous draw Performed By: #### 9 0150 #### [facility] [address] [place] [address], [place] Color (U) YELLOW Normal YELLOW [facility] Comment on above: Order Comment: No: D o not add to previous draw Performed By: #### 9 0150 #### [facility] [address] [place] [address], [place] EPIS NONE SEEN Normal FEW,OCC,NO NE SEEN [facility] Comment on above: Order Comment: No: D o not add to previous draw Performed By: #### 9 0150 #### [facility] [address] [place] [address], [place] Glucose Ql (U) Negative Normal NEGATIVE [facility] Comment on above: Order Comment: No: D o not add to previous draw Performed By: #### 9 0150 #### [facility] [address] [place] [address], [place] Hemoglobin Ql (U) SMALL Abnormal NEGATIVE [facility] Comment on above: Order Comment: No: D o not add to previous draw Performed By: #### 9 0150 #### [facility] [address] [place] [address], [place] KETONE Negative Normal NEGATIVE [facility] Comment on above: Order Comment: No: D o not add to previous draw Performed By: #### 9 0150 #### [facility] [address] [place] [address], [facility] LEUK JALYN Negative Normal NEGATIVE [facility] Comment on above: Order Comment: No: D o not add to previous draw Performed By: #### 9 0150 #### [facility] [address] [place] [address], [facility] Nitrite Ql (U) Negative Normal NEGATIVE [facility] Comment on above: Order Comment: No: D o not add to previous draw Performed By: #### 9 0150 #### [facility] [address] [facility] [place] [place] [address], [facility] pH (U) 5.0 [pH] Normal 5.0-8.0 [facility] Comment on above: Order Comment: No: D o not add to previous draw Performed By: #### 9 0150 #### [facility] [address] [place] [address], [facility] Protein Ql (U) 30 mg/dL Abnormal NEGATIVE [facility] Comment on above: Order Comment: No: D o not add to previous draw Performed By: #### 9 0150 #### [facility] [address] [place] [address], [facility] RBC 3-5 Abnormal NONE SEEN [facility] Comment on above: Order Comment: No: D o not add to previous draw Performed By: #### 9 0150 #### [facility] [address] [facility] [place] [place] [address], [facility] SPEC GRAV 1.016 Normal 1.015-1.02 0 [facility] Comment on above: Order Comment: No: D o not add to previous draw Performed By: #### 9 0150 #### [facility] [address] [place] [address], [facility] WBC UA 0-2 Abnormal NONE SEEN [facility] Comment on above: Order Comment: No: D o not add to previous draw Performed By: #### 9 0150 #### [facility] [address] APTTon 02-05-2022 aPTT Coag (Bld) [Time] 34.1 s Normal 25.0-35.0 [facility] Comment on above: Order Comment: [...] THIS PURPOSE. Performed By: #### 5 7307, [id number] ####[facility] BASIC METABOLIC PANELon 01-25 Calcium [Mass/Vol] 8.2 mg/dL Low 8.6-10.3 [facility] Comment on above: Order Comment: evalu ate for Aspiration Performed By: #### 0 0071 ####[facility] [place] [address], [facility] Chloride [Moles/Vol] 108 mmol/L High 98-107 [facility] Comment on above: Order Comment: evalu ate for Aspiration Performed By: #### 0 0071 ####[facility] [place] [address], [facility] CO2 [Moles/Vol] 22 mmol/L Normal 21-31 [facility] Comment on above: Order Comment: evalu ate for Aspiration Performed By: #### 0 0071 ####[facility] [place] [address], [facility] Creatinine [Mass/Vol] 1.64 mg/dL High 0.70-1.30 [facility] Comment on above: Order Comment: evalu ate for Aspiration Performed By: #### 0 0071 ####[facility] [place] [address], [facility] eGFR- 50 ml/min/1.73sq m Abnormal >60 [facility] Comment on above: Order Comment: evalu ate for Aspiration Result Comment: Calc ulation may not be valid for patients over 70 years Performed By: #### 0 0071 ####[facility] [place] [address], [facility] eGFR- non- 41 ml/min/1.73sq m Abnormal >60 [facility] Comment on above: Order Comment: evalu ate for Aspiration Result Comment: Calc ulation may not be valid for patients over 70 years Performed By: #### 0 0071 ####[facility] [place] [address], [facility] Glucose [Mass/Vol] 145 mg/dL High 70-100 [facility] Comment on above: Order Comment: evalu ate for Aspiration Performed By: #### 0 0071 ####[facility] [place] [address], [facility] Potassium [Moles/Vol] 3.9 mmol/L Normal 3.5-5.1 [facility] Comment on above: Order Comment: evalu ate for Aspiration Performed By: #### 0 0071 ####[facility] [place] [address], [place] Sodium [Moles/Vol] 137 mmol/L Normal 136-145 [facility] Comment on above: Order Comment: evalu ate for Aspiration Performed By: #### 0 0071 ####[facility] [place] [address], [place] Urea nitrogen [Mass/Vol] 27 mg/dL High 7-25 [facility] Comment on above: Order Comment: evalu ate for Aspiration Performed By: #### 0 0071 ####[facility], [place] [address] Operative Reporton 2 Operative Report MR#: [id number] I [facility] Pt. Name: Niels Mccullough Jr Room #: [id number] Discharge Date: Birthdate: 1945 OPERATIVE REPORT DATE OF SURGERY: 02/04/2022 SURGEON: Vineet Garza M.D. PRIMARY CARE PHYSICIAN: Thee Mcguire D.O. ASSISTANTS: 1. Paulnio Elliott M.D., resident orthopedic surgery. 2. first [...] f (more content not included)... Normal [facility] PROTHROMBIN TIMEon 2 INR Coag (PPP) [Relative time] 1.27 {INR} High 0.91-1.16 [facility] Comment on above: Order Comment: [...] CHEST 1995;108:231S-246S. Performed By: #### 5 7307, [id number] ####[facility] [facility].[address] PT Coag (PPP) [Time] 15.9 s High 12.3-14.8 [facility] Comment on above: Order Comment: if no t already doneNo: Do not add to previous draw Result Comment: ALL RESULTS MUST BE INTERPRETED WITH RESPECT TO BLOOD DRAWING ARTIFACT OR DILUTION ERROR OF ANTICOAGULANT AT THE TIME OF SAMPLING. Performed By: #### 5 7307, [id number] ####[facility] [facility].[address] *ANAEROBIC CULTUREon 022 *ANAEROBIC CULTURE Clinical Report: (D) Specimen/Source: TISSUE/INTRAOP SPEC Collected: 02/04/2022 17:29 Status: Final Last Updated: 02/09/2022 07:31 (1) LEFT HIP SCREW HEAD TISSUE CULT RES (Final) No Anaerobes Isolated 5 Days Normal [facility] Comment on above: Order Comment: No: D o not add to previous draw Performed By: #### [id number] #### [facility] [address] [place] [address], [facility] *ANAEROBIC CULTURE Clinical Report: (D) Specimen/Source: TISSUE/INTRAOP SPEC Collected: 02/04/2022 17:28 Status: Final Last Updated: 02/09/2022 07:31 (1) LEFT HIP NAIL HEAD CULT RES (Final) No Anaerobes Isolated 5 Days Normal [facility] Comment on above: Order Comment: LEFT HIP SCREW HEAD TISSUE Performed By: #### 3 0338 #### [facility] [address] [place] [address], [facility] *ANAEROBIC CULTURE Clinical Report: (D) Specimen/Source: FLUID/INTRAOP SPEC Collected: 02/04/2022 17:28 Status: Final Last Updated: 02/09/2022 07:31 (1) LEFT HIP FLUID #2 CULT RES (Final) No Anaerobes Isolated 5 Days Normal [facility] Comment on above: Order Comment: LEFT HIP SCREW HEAD TISSUE Performed By: #### 3 0338 #### [facility] [address] [place] [address], [facility] *ANAEROBIC CULTURE Clinical Report: (D) Specimen/Source: FLUID/INTRAOP SPEC Collected: 02/04/2022 17:26 Status: Final Last Updated: 02/09/2022 07:31 (1) LEFT HIP FLUID #1 CULT RES (Final) No Anaerobes Isolated 5 Days Normal [facility] Comment on above: Order Comment: LEFT HIP FLUID #2 Performed By: #### 3 0318 #### [facility] [address] [place] [address], [facility] *ANAEROBIC CULTURE Clinical Report: (D) Specimen/Source: TISSUE/INTRAOP SPEC Collected: 02/04/2022 17:25 Status: Final Last Updated: 02/09/2022 07:31 (1) LEFT HIP CULT RES (Final) No Anaerobes Isolated 5 Days Normal [facility] Comment on above: Order Comment: No: D o not add to previous draw Performed By: #### 9 0150 #### [facility] [address] [place] [address], [facility] *BODY FLUID CULTUREon 2021 *BODY FLUID CULTURE Clinical Report: (D) Specimen/Source: FLUID/INTRAOP SPEC Collected: 02/04/2022 17:28 Status: Final Last Updated: 02/09/2022 06:34 (1) LEFT HIP FLUID #2 GRAM (Final) Moderate Polys No Bacteria Seen CULT RES (Final) No Growth Day 5 Normal [facility] Comment on above: Order Comment: LEFT HIP FLUID #2 Performed By: #### 3 0318 #### [facility] [address] [place] [address], [facility] *BODY FLUID CULTURE Clinical Report: (D) Specimen/Source: FLUID/INTRAOP SPEC Collected: 02/04/2022 17:26 Status: Final Last Updated: 02/09/2022 06:34 (1) LEFT HIP FLUID #1 GRAM (Final) Moderate Polys No Bacteria Seen CULT RES (Final) No Growth Day 5 Normal [facility] Comment on above: Order Comment: LEFT HIP SCREW HEAD TISSUE Performed By: #### 3 0338 #### [facility] [address] [place] [address], [facility] *FUNGAL CULTUREon 02-04-2022 *FUNGAL CULTURE Clinical Report: (D) Specimen/Source: TISSUE/INTRAOP SPEC Collected: 02/04/2022 17:29 Status: Final Last Updated: 04/10/2022 08:13 (1) LEFT HIP SCREW HEAD TISSUE FS (Final) No Yeast or Fungal Elements Seen CULT RES (Final) Culture negative for fungus Normal [facility] Comment on above: Order Comment: LEFT HIP SCREW HEAD TISSUE Performed By: #### 3 0338 #### [facility] [address] [place] [address], [facility] *FUNGAL CULTURE Clinical Report: (D) Specimen/Source: FLUID/INTRAOP SPEC Collected: 02/04/2022 17:28 Status: Final Last Updated: 04/10/2022 08:13 (1) LEFT HIP FLUID #2 FS (Final) No Yeast or Fungal Elements Seen CULT RES (Final) Culture negative for fungus Normal [facility] Comment on above: Order Comment: LEFT HIP FLUID #2 Performed By: #### 3 0323 #### [facility] [address] [facility] [place] [address], [facility] *FUNGAL CULTURE Clinical Report: (D) Specimen/Source: TISSUE/INTRAOP SPEC Collected: 02/04/2022 17:28 Status: Final Last Updated: 04/10/2022 08:13 (1) LEFT HIP NAIL HEAD FS (Final) No Yeast or Fungal Elements Seen CULT RES (Final) Culture negative for fungus Normal [facility] Comment on above: Order Comment: LEFT HIP SCREW HEAD TISSUE Performed By: #### 3 0338 #### [facility] [address] [facility] [place] [address], [facility] *FUNGAL CULTURE Clinical Report: (D) Specimen/Source: FLUID/INTRAOP SPEC Collected: 02/04/2022 17:26 Status: Final Last Updated: 04/10/2022 08:13 (1) LEFT HIP FLUID #1 FS (Final) No Yeast or Fungal Elements Seen CULT RES (Final) Culture negative for fungus Normal [facility] Comment on above: Order Comment: LEFT HIP FLUID #2 Performed By: #### 3 0318 #### [facility] [address] [facility] [place] [place] [address], [facility] *FUNGAL CULTURE Clinical Report: (D) Specimen/Source: TISSUE/INTRAOP SPEC Collected: 02/04/2022 17:25 Status: Final Last Updated: 04/10/2022 08:13 (1) LEFT HIP FS (Final) No Yeast or Fungal Elements Seen CULT RES (Final) Culture negative for fungus Normal [facility] Comment on above: Order Comment: LEFT HIP Performed By: #### 3 0323 #### [facility] [address] *TISSUE CULTUREon 02-04-2022 *TISSUE CULTURE Clinical Report: (D) Specimen/Source: TISSUE/INTRAOP SPEC Collected: 02/04/2022 17:29 Status: Final Last Updated: 02/09/2022 06:34 (1) LEFT HIP SCREW HEAD TISSUE GRAM (Final) Moderate Polys No Bacteria Seen CULT RES (Final) No Growth Day 5 Normal [facility] Comment on above: Order Comment: LEFT HIP SCREW HEAD TISSUE Performed By: #### 3 0338 #### [facility] [address] *TISSUE CULTURE Clinical Report: (D) Specimen/Source: TISSUE/INTRAOP SPEC Collected: 02/04/2022 17:28 Status: Final Last Updated: 02/09/2022 06:33 (1) LEFT HIP NAIL HEAD GRAM (Final) Moderate Polys No Bacteria Seen CULT RES (Final) No Growth Day 5 Normal [facility] Comment on above: Order Comment: LEFT HIP FLUID #2 Performed By: #### 3 0318 #### [facility] [address] *TISSUE CULTURE Clinical Report: (D) Specimen/Source: TISSUE/INTRAOP SPEC Collected: 02/04/2022 17:25 Status: Final Last Updated: 02/09/2022 06:33 (1) LEFT HIP GRAM (Final) Many Polys No Bacteria Seen CULT RES (Final) No Growth Day 5 Normal [facility] Comment on above: Order Comment: LEFT HIP SCREW HEAD TISSUE Performed By: #### 3 0338 #### [facility] [address] APTTon 02-04-2022 aPTT Coag (Bld) [Time] 43.4 s High 25.0-35.0 [facility] Comment on above: Order Comment: [...] THIS PURPOSE. Performed By: #### 5 7307, [id number] ####[facility] [facility] [address], [facility] ARTERIAL BLOOD GAS W/COOXon 02-04-2022 BASE EXCESS -2 mmol/L Normal -2-3 [facility] Comment on above: Performed By: #### 3 0318 #### [facility] [address] [place] [address], [facility] COHB 1.5 % Normal 0.0-1.5 [facility] Comment on above: Performed By: #### 3 0318 #### [facility] [address] [facility] [place] [place] [address], [facility] DELIVERY SYSTEMS OR VENT Normal [facility] Comment on above: Performed By: #### 3 0318 #### [facility] [address] [place] [address], [facility] HCO3 (Bld) [Moles/Vol] 22 mmol/L Normal 21-28 [facility] Comment on above: Performed By: #### 3 0318 #### [facility] [address] [place] [address], [facility] METHB 0.6 % Normal 0.0-1.5 [facility] Comment on above: Performed By: #### 3 0318 #### [facility] [address] [facility] [place] [place] [address], [facility] MODALITY OR VENT Normal [facility] Comment on above: Performed By: #### 3 0318 #### [facility] [address] [place] [address], [facility] Oxygen (Bld) [Partial pressure] 203 mm[Hg] Critically high 83-108 [facility] Comment on above: Performed By: #### 3 0318 #### [facility] [address] [place] [address], [facility] Oxygen saturation in Blood 97.8 % High 94.0-97.0 [facility] Comment on above: Performed By: #### 3 0318 #### [facility] [address] [place] [address], [facility] PCO2 35 mmHg Normal 35-45 [facility] Comment on above: Performed By: #### 3 0318 #### [facility] [address] [place] [address], [facility] pH (Bld) 7.41 [pH] Normal 7.35-7.45 [facility] Comment on above: Performed By: #### 3 0318 #### [facility] [address] [place] [address], [facility] THB 10.0 g/dL Low 12.0-16.3 [facility] Comment on above: Performed By: #### 3 0318 #### [facility] [address] [place] [address], [facility] BASIC METABOLIC PANELon 01-25 Calcium [Mass/Vol] 8.6 mg/dL Normal 8.6-10.3 [facility] Comment on above: Order Comment: evalu ate for Aspiration Performed By: #### 1 0070, [id number], 48438 ####[facility] [place] [address], [facility] Chloride [Moles/Vol] 106 mmol/L Normal 98-107 [facility] Comment on above: Order Comment: evalu ate for Aspiration Performed By: #### 1 0, 97601, 09255 ####[facility] [place] [address], [place] CO2 [Moles/Vol] 25 mmol/L Normal 21-31 [facility] Comment on above: Order Comment: evalu ate for Aspiration Performed By: #### 1 0070, 99568, 47026 ####[facility] [place] [address], [facility] Creatinine [Mass/Vol] 1.52 mg/dL High 0.70-1.30 [facility] Comment on above: Order Comment: evalu ate for Aspiration Performed By: #### 1 0, 66038, 63968 ####[facility] [place] [address], [facility] eGFR- 54 ml/min/1.73sq m Abnormal >60 [facility] Comment on above: Order Comment: evalu ate for Aspiration Result Comment: Calc ulation may not be valid for patients over 70 years Performed By: #### 1 0, 16191, 57009 ####[facility] [place] [address], [facility] eGFR- non- 45 ml/min/1.73sq m Abnormal >60 [facility] Comment on above: Order Comment: evalu ate for Aspiration Result Comment: Calc ulation may not be valid for patients over 70 years Performed By: #### 1 0, 96593, 88618 ####[facility] [place] [address], [facility] Glucose [Mass/Vol] 98 mg/dL Normal 70-100 [facility] Comment on above: Order Comment: evalu ate for Aspiration Performed By: #### 1 0070, 77952, 10552 ####[facility] [place] [address], [place] Potassium [Moles/Vol] 3.7 mmol/L Normal 3.5-5.1 [facility] Comment on above: Order Comment: evalu ate for Aspiration Performed By: #### 1 0070, 91026, 86462 ####[facility] [place] [address], [place] Sodium [Moles/Vol] 139 mmol/L Normal 136-145 [facility] Comment on above: Order Comment: evalu ate for Aspiration Performed By: #### 1 0070, 27149, 05191 ####[facility] Urea nitrogen [Mass/Vol] 25 mg/dL Normal 7-25 [facility] Comment on above: Order Comment: evalu ate for Aspiration Performed By: #### 1 0070, 82658, 37524 ####[facility] CALCIUM IONIZED CBGLon 02-04 IONIZED CALCIUM 1.11 mmol/L Low 1.13-1.32 [facility] Comment on above: Performed By: #### 3 0318 #### [facility] [address] CBC COMPLETE BLOOD COUNTon 0 02-04-2022 Erythrocyte distribution width (RBC) [Ratio] 14.4 % Normal 11.5-15.0 [facility] Comment on above: Order Comment: LEFT HIP SCREW HEAD TISSUE Performed By: #### 3 0338 #### [facility] [address] [facility] [place] [place] [address], [facility] Hematocrit (Bld) [Volume fraction] 34.1 % Low 39.0-50.0 [facility] Comment on above: Order Comment: LEFT HIP SCREW HEAD TISSUE Performed By: #### 3 0338 #### [facility] [address] [place] [address], [facility] Hemoglobin (Bld) [Mass/Vol] 11.3 g/dL Low 13.0-17.0 [facility] Comment on above: Order Comment: LEFT HIP SCREW HEAD TISSUE Performed By: #### 3 0338 #### [facility] [address] [place] [address], [facility] MCH (RBC) [Entitic mass] 32.1 pg Normal 27.0-33.0 [facility] Comment on above: Order Comment: LEFT HIP SCREW HEAD TISSUE Performed By: #### 3 0338 #### [facility] [address] [place] [address], [facility] MCHC (RBC) [Mass/Vol] 33.1 g/dL Normal 32.0-35.0 [facility] Comment on above: Order Comment: LEFT HIP SCREW HEAD TISSUE Performed By: #### 3 0338 #### [facility] [address] [place] [address], [facility] MCV (RBC) [Entitic vol] 96.9 fL Normal 82.0-98.0 [facility] Comment on above: Order Comment: LEFT HIP SCREW HEAD TISSUE Performed By: #### 3 0338 #### [facility] [address] [place] [address], [facility] Nucleated RBC/100 WBC (Bld) [Ratio] 0 % Normal 0-0 [facility] Comment on above: Order Comment: LEFT HIP SCREW HEAD TISSUE Performed By: #### 3 0338 #### [facility] [address] [facility] [address], [facility] PLAT CNT 213 10*3/uL Normal 150-400 [facility] Comment on above: Order Comment: LEFT HIP SCREW HEAD TISSUE Performed By: #### 3 0338 #### [facility] [address] [facility] [place] [address], [facility] RBC (Bld) [#/Vol] 3.52 10*6/uL Low 4.20-5.70 [facility] Comment on above: Order Comment: LEFT HIP SCREW HEAD TISSUE Performed By: #### 3 0338 #### [facility] [address] [place] [address], [facility] WBC (Bld) [#/Vol] 8.15 10*3/uL Normal 4.00-10.60 [facility] Comment on above: Order Comment: LEFT HIP SCREW HEAD TISSUE Performed By: #### 3 0338 #### [facility] [address] [place] [address], [facility] MAGNESIUM BLOODon 02-04-2022 Magnesium [Mass/Vol] 2.2 mg/dL Normal 1.9-2.7 [facility] Comment on above: Order Comment: evalu ate for Aspiration Performed By: #### 1 0070, 96513, 47477 ####[facility] [facility] [place] [address], [facility] PHOSPHORUS BLOODon 2 Phosphate [Mass/Vol] 3.0 mg/dL Normal 2.5-5.0 [facility] Comment on above: Order Comment: No: D o not add to previous draw Performed By: #### 1 0070, 16635, 53312 ####[facility] [facility] [place] [address], [facility] POC GLUCOSE LABon 02-04-2022 Glucose [Mass/Vol] 99 mg/dL Normal 70-100 [facility] Comment on above: Performed By: #### 8 5499 ####[facility] [facility].[address] POC SARS COV2 IDon 2 SARS-CoV-2 (COVID-19) RNA SHALA+probe Ql (Unsp spec) Negative Normal NEGATIVE [facility] Comment on above: Result Comment: [...] Accreditation. Performed By: #### 3 1921 #### [place] [address], [facility] PORTABLE HIP LEFT 1 OR 2 VWS WITH PELVISon 02-04-2022 PORTABLE HIP LEFT 1 OR 2 VWS WITH PELVIS [facility] Department of Radiology [address] [place] [id number] Patient Name: NIELS MCCULLOUGH : 1945 Sex: M Age: Race: White Pt. Location: [id number] Patient Status: I Ordered Date: 02/04/2022 8:00:00 [...] fracture Electronically signed: Nohemi Graves. Transcribed by: [email or web address], User Resident: Electronically Signed by: NOHEMI GRAVES @ 02/04/2022 09:32 PM Normal [facility] Comment on above: Order Comment: evalu ate for Aspiration POTASSIUM WHOLE BLOOD CBGLon 02-04-2022 Potassium [Moles/Vol] 3.5 mmol/L Normal 3.4-5.2 [facility] Comment on above: Performed By: #### 3 0318 #### [facility] [address] PROTHROMBIN TIMEon INR Coag (PPP) [Relative time] 1.70 {INR} High 0.91-1.16 [facility] Comment on above: Order Comment: [...] CHEST 1995;[id number]. Performed By: #### 5 7307, 55191 ####[facility] [facility] [address], [facility] PT Coag (PPP) [Time] 20.0 s High 12.3-14.8 [facility] Comment on above: Order Comment: No: D o not add to previous draw Result Comment: ALL RESULTS MUST BE INTERPRETED WITH RESPECT TO BLOOD DRAWING ARTIFACT OR DILUTION ERROR OF ANTICOAGULANT AT THE TIME OF SAMPLING. Performed By: #### 5 7307, 13242 ####[facility] [facility] [address], [facility] INR Coag (PPP) [Relative time] 2.90 {INR} High 0.91-1.16 [facility] Comment on above: Order Comment: [...] CHEST 1995;[id number]. Performed By: #### 5 6101 ####[place] [id number] [facility] [address], [facility] PT Coag (PPP) [Time] 30.1 s High 12.3-14.8 [facility] Comment on above: Order Comment: 12 ho urs post vitamin K administration/pre-procedure warfarin reversalNo: Do not add to previous draw Result Comment: ALL RESULTS MUST BE INTERPRETED WITH RESPECT TO BLOOD DRAWING ARTIFACT OR DILUTION ERROR OF ANTICOAGULANT AT THE TIME OF SAMPLING. Performed By: #### 5 6101 ####[facility] [facility] [address], [facility] RBC'S 1 UNITon 02-04-2022 CROSSMATCH INTERP 1 COMP Normal [facility] Comment on above: Performed By: #### 8 6001 ####[facility] [place] [address], [facility] PRODUCT CODE 1 E0336 Normal [facility] Comment on above: Performed By: #### 8 6001 ####[facility] [place] [address], [facility] PRODUCT STATUS 1 RE Normal [facility] Comment on above: Result Comment: Resu lt changed by IF on 02/08/2022 07:21. The previous value was XM. Performed By: #### 8 6001 ####[facility] [place] [address], [facility] UNIT ABO 1 O Normal [facility] Comment on above: Performed By: #### 8 6001 ####[facility] [place] [address], [facility] UNIT ID 1 [id number] Normal [facility] Comment on above: Performed By: #### 8 6001 ####[facility] [place] [address], [facility] UNIT RH 1 Negative Normal [facility] Comment on above: Performed By: #### 8 6001 ####[facility] [facility] [place] [address], [facility] SODIUM WHOLE BLOOD CBGLon Sodium [Moles/Vol] 136.0 mmol/L Normal 136.0-146 . 0 [facility] Comment on above: Performed By: #### 3 0318 #### [facility] [address] [facility] [address], [facility] TYPE AND SCREENon 02-04-2022 ABO INTERPRETATION O Normal [facility] Comment on above: Performed By: #### 3 0318 #### [facility] [address] [facility] [place] [address], [facility] RH INTERPRETATION Negative Normal [facility] Comment on above: Performed By: #### 3 0318 #### [facility] [address] [facility]. [address] APTTon 02-03-2022 aPTT Coag (Bld) [Time] 64.0 s High 25.0-35.0 Th e [facility] Comment on above: Result Comment: [...] THIS PURPOSE. Performed By: #### 5 6101, 21506 ####[facility] CBC W/DIFFon 02-03-2022 ABS IMM GRANS 0.0 10*3/uL Normal 0.0-0.2 [facility] Comment on above: Performed By: #### 3 0338 #### [facility] [address] [facility] [address], [facility] ABS NEUTROPHILS 5.8 10*3/uL Normal 1.6-7.6 [facility] Comment on above: Performed By: #### 3 0338 #### [facility] [address] [place] [address], [facility] Basophils (Bld) [#/Vol] 0.0 10*3/uL Normal 0.0-0.2 [facility] Comment on above: Performed By: #### 3 0338 #### [facility] [address] [place] [address], [facility] Basophils/100 WBC (Bld) 0.5 % Normal 0.0-1.0 [facility] Comment on above: Performed By: #### 3 0338 #### [facility] [address] [place] [address], [facility] Eosinophils (Bld) [#/Vol] 0.2 10*3/uL Normal 0.0-0.5 [facility] Comment on above: Performed By: #### 3 0338 #### [facility] [address] [facility] [address], [facility] Eosinophils/100 WBC (Bld) 2.1 % Normal 0.0-6.0 [facility] Comment on above: Performed By: #### 3 0338 #### [facility] [address] [facility] [address] Erythrocyte distribution width (RBC) [Ratio] 14.2 % Normal 11.5-15.0 [facility] Comment on above: Performed By: #### 3 0338 #### [facility] [address] [facility] [place] [address], [facility] Hematocrit (Bld) [Volume fraction] 33.2 % Low 39.0-50.0 [facility] Comment on above: Performed By: #### 3 0338 #### [facility] [address] [facility] [address], [facility] Hemoglobin (Bld) [Mass/Vol] 11.3 g/dL Low 13.0-17.0 [facility] Comment on above: Performed By: #### 3 0338 #### [facility] [address] [place] [address], [facility] IMMATURE GRANS 0.4 % Normal 0.0-1.0 [facility] Comment on above: Performed By: #### 3 0338 #### [facility] [address] [facility] [address] Lymphocytes (Bld) [#/Vol] 1.0 10*3/uL Low 1.2-4.0 [facility] Comment on above: Performed By: #### [id number] #### [facility] 3000 [facility] [place] [address], [facility] Lymphocytes/100 WBC (Bld) 12.6 % Low 20.0-45.0 [facility] Comment on above: Performed By: #### [id number] #### [facility] [address] MCH (RBC) [Entitic mass] 32.2 pg Normal 27.0-33.0 [facility] Comment on above: Performed By: #### [id number] #### [facility] 3000 [facility]. [address] MCHC (RBC) [Mass/Vol] 34.0 g/dL Normal 32.0-35.0 [facility] Comment on above: Performed By: #### [id number] #### [facility] [address] [place] [address], [facility] MCV (RBC) [Entitic vol] 94.6 fL Normal 82.0-98.0 [facility] Comment on above: Performed By: #### [id number] #### [facility] [address] [facility] [place] [address], [facility] Monocytes (Bld) [#/Vol] 0.7 10*3/uL Normal 0.1-1.0 [facility] Comment on above: Performed By: #### 3 0338 #### [facility] [address] [place] [address], [facility] MONOS 9.2 % Normal 5.0-12.0 [facility] Comment on above: Performed By: #### 3 0338 #### [facility] [address] Neutrophils/100 WBC (Bld) 75.2 % High 40.0-72.0 [facility] Comment on above: Performed By: #### 3 0338 #### [facility] [address] [facility]. [address] Nucleated RBC/100 WBC (Bld) [Ratio] 0 % Normal 0-0 [facility] Comment on above: Performed By: #### 3 0338 #### [facility] [address] PLAT CNT 190 10*3/uL Normal 150-400 [facility] Comment on above: Performed By: #### 3 0338 #### [facility] [address] RBC (Bld) [#/Vol] 3.51 10*6/uL Low 4.20-5.70 [facility] Comment on above: Performed By: #### 3 0338 #### [facility] [address] WBC (Bld) [#/Vol] 7.75 10*3/uL Normal 4.00-10.60 [facility] Comment on above: Performed By: #### 3 0338 #### [facility] [address] COMP METABOLIC PANELon 02-03 Albumin [Mass/Vol] 3.7 g/dL Normal 3.5-5.7 [facility] Comment on above: Performed By: #### 3 0318 #### [facility] [address] ALKALINE PHOSPH 89 IU/L Normal 34-104 [facility] Comment on above: Performed By: #### 3 0318 #### [facility] [address] [place] [address], [facility] ALT [Catalytic activity/Vol] 10 U/L Normal 7-52 [facility] Comment on above: Performed By: #### 3 0318 #### [facility] [address] [place] [address], [place] AST [Catalytic activity/Vol] 16 U/L Normal 13-39 [facility] Comment on above: Performed By: #### 3 0318 #### [facility] [address] [place] [address], [place] Bilirubin [Mass/Vol] 0.6 mg/dL Normal 0.3-1.0 [facility] Comment on above: Performed By: #### 3 0318 #### [facility] [address] [place] [address], [place] Calcium [Mass/Vol] 8.6 mg/dL Normal 8.6-10.3 [facility] Comment on above: Performed By: #### 3 0318 #### [facility] [address] [place] [address], [facility] Chloride [Moles/Vol] 103 mmol/L Normal 98-107 [facility] Comment on above: Performed By: #### 3 0318 #### [facility] [address] [place] [address], [place] CO2 [Moles/Vol] 27 mmol/L Normal 21-31 [facility] Comment on above: Performed By: #### 3 0318 #### [facility] [address] [place] [address], [place] Creatinine [Mass/Vol] 1.62 mg/dL High 0.70-1.30 [facility] Comment on above: Performed By: #### 3 0318 #### [facility] [address] [place] [address], [place] eGFR- 51 ml/min/1.73sq m Abnormal >60 [facility] Comment on above: Result Comment: Calc ulation may not be valid for patients over 70 years Performed By: #### 3 0318 #### [facility] [address] [place] [address], [facility] eGFR- non- 42 ml/min/1.73sq m Abnormal >60 [facility] Comment on above: Result Comment: Calc ulation may not be valid for patients over 70 years Performed By: #### 3 0318 #### [facility] [address] [place] [address], [place] Glucose [Mass/Vol] 90 mg/dL Normal 70-100 [facility] Comment on above: Performed By: #### 3 0318 #### [facility] [address] [place] [address], [place] Potassium [Moles/Vol] 3.5 mmol/L Normal 3.5-5.1 [facility] Comment on above: Performed By: #### 3 0318 #### [facility] [address] [place] [address], [place] Protein [Mass/Vol] 6.6 g/dL Normal 6.0-8.3 [facility] Comment on above: Performed By: #### 3 0318 #### [facility] [address] [place] [address], [place] Sodium [Moles/Vol] 138 mmol/L Normal 136-145 [facility] Comment on above: Performed By: #### 3 0318 #### [facility] [address] [place] [address], [place] Urea nitrogen [Mass/Vol] 23 mg/dL Normal 7-25 [facility] Comment on above: Performed By: #### 3 0318 #### [facility] [address] [place] [address], [place] POC SARS COV2 ANTIGEN NEGATI VEon 02-03-2022 POC SARS COV2 ANTIGEN NEG Negative Normal NEGATIVE [facility] Comment on above: Result Comment: [...] antigen from SARS-CoV-2 in direct nasopharyngeal swab (EXTRACT OPERATOR) specimens from individuals who are suspected of [...] Accreditation. Performed By: #### 3 2044 #### [address] PORTABLE CHEST 1 VIEWon 04- PORTABLE CHEST [address] [facility] Department of Radiology [address] [place] [id number] Patient Name: NIELS MCCULLOUGH : 1945 Sex: M Age: Race: White Pt. Location: [facility] Patient Status: E Ordered Date: [...] failure. Electronically signed: Isidro Nieto. Transcribed by: [email or web address], User Resident: Electronically Signed by: ISIDRO NIETO @ 02/03/2022 08:48 AM Normal [facility] Comment on above: Order Comment: evalu ate for Aspiration PROTHROMBIN TIMEon 2 INR Coag (PPP) [Relative time] 3.58 {INR} High 0.91-1.16 [facility] Comment on above: Order Comment: [...] CHEST 1995;108:231S-246S. Performed By: #### 5 6101 ####[facility] PT Coag (PPP) [Time] 35.4 s High 12.3-14.8 [facility] Comment on above: Order Comment: No: D o not add to previous draw Result Comment: ALL RESULTS MUST BE INTERPRETED WITH RESPECT TO BLOOD DRAWING ARTIFACT OR DILUTION ERROR OF ANTICOAGULANT AT THE TIME OF SAMPLING. Performed By: #### 5 6101 ####[facility] INR Coag (PPP) [Relative time] 3.62 {INR} High 0.91-1.16 [facility] Comment on above: Result Comment: [...] 1995;108:231S-246S. Performed By: #### 3 0338 #### [facility] [address] [place] [address], [facility] PT Coag (PPP) [Time] 35.8 s High 12.3-14.8 [facility] Comment on above: Result Comment: ALL RESULTS MUST BE INTERPRETED WITH RESPECT TO BLOOD DRAWING ARTIFACT OR DILUTION ERROR OF ANTICOAGULANT AT THE TIME OF SAMPLING. Performed By: #### 3 0338 #### [facility] [address] [place] [id number], [facility] RBC'S 2 UNITSon 02-03-2022 CROSSMATCH INTERP 1 COMP Normal [facility] Comment on above: Performed By: #### 8 6002 ####[facility] [facility] [place] [place] [address], [facility] CROSSMATCH INTERP 2 COMP Normal [facility] Comment on above: Performed By: #### 8 6002 ####[facility]3000 [facility] PRODUCT CODE 1 E0336 Normal [facility] Comment on above: Performed By: #### 8 6002 ####[facility] [facility] [place] [place] [address], [facility] PRODUCT CODE 2 E0336 Normal [facility] Comment on above: Performed By: #### 8 6002 ####[facility] [facility] [address], [facility] PRODUCT STATUS 1 RE Normal [facility] Comment on above: Result Comment: Resu lt changed by IF on 02/04/2022 19:14. The previous value was XM. Result changed by IF on 02/04/2022 20:42. The previous value was IS. Result changed by IF on 02/08/2022 07:21. The previous value was XM. Performed By: #### 8 6002 ####[facility] PRODUCT STATUS 2 RE Normal [facility] Comment on above: Result Comment: Resu lt changed by IF on 02/04/2022 19:16. The previous value was XM. Performed By: #### 8 6002 ####[facility]3000 [facility], [place] [id number] [place] [address] UNIT ABO 1 O Normal [facility] Comment on above: Performed By: #### 8 6002 ####[facility]3000 [facility], [place] [id number] [place] [address] UNIT ABO 2 O Normal [facility] Comment on above: Performed By: #### 8 6002 ####[facility]3000 [facility].[address] UNIT ID 1 [id number] Normal [facility] Comment on above: Performed By: #### 8 6002 ####[facility]3000 [facility].[address] UNIT ID 2 [id number] Normal [facility] Comment on above: Performed By: #### 8 6002 ####[facility]3000 [facility].[address] UNIT RH 1 Negative Normal [facility] Comment on above: Performed By: #### 8 6002 ####[facility]3000 [facility], [place] [id number] [place] [address] UNIT RH 2 Negative Normal [facility] Comment on above: Performed By: #### 8 6002 ####[facility]3000 [facility].[address] UA w/Reflex Cultureon 2017 Acetoacetic Acid,Ur Negative Normal NEG [facility] Comment on above: Performed By: #### U AX, UMICAO ####[facility] [place] [address] Bilirubin, SemiQt,Ur Negative Normal NEG [facility] Comment on above: Performed By: #### U AX, UMICAO ####[facility] [place] [address] Color YELLOW Normal YEL [facility] Comment on above: Performed By: #### U AX, UMICAO ####[address] [address] Glucose,Semi-qnt,Ur Negative Normal NEG [facility] Comment on above: Performed By: #### U AX, UMICAO ####[address] [address] Hemoglobin, Ur Negative Normal NEG [facility] Comment on above: Performed By: #### U AX, UMICAO ####[address] [place] [address] Leuckocyte Esterase Negative Normal NEG [facility] Comment on above: Performed By: #### U AX, UMICAO ####[address] [address] Nitrite,Ur Negative Normal NEG [facility] Comment on above: Performed By: #### U AX, UMICAO ####[address] [address] PH,Ur 7.0 Normal 5.0-8.0 [facility] Comment on above: Performed By: #### U AX, UMICAO ####[address] [address] Protein, Semi-qnt,Ur Negative Normal NEG [facility] Comment on above: Performed By: #### U AX, UMICAO ####[address] [address] Spec. [place],Ur 1.005 Normal 1.000-1.03 0 [facility] Comment on above: Performed By: #### ALYSSIA BRADFORD ####[address] [address] Turbidity CLOUDY Abnormal CLEAR [facility] Comment on above: Performed By: #### U ALYSSIA ALBRECHT ####[address] [address] Urobilinogen,Ur Normal Normal NORM [facility] Comment on above: Performed By: #### ALYSSIA BRADFORD ####[address] [address] Comment NOT REPORTED Normal [facility] Comment on above: Performed By: #### ALYSSIA BRADFORD ####[address] [address] Urinalysis,Microon [phone] ----- Normal [facility] Comment on above: Performed By: #### ALYSSIA BRADFORD ####[address] [address] Bacteria FEW Abnormal NONE [facility] Comment on above: Performed By: #### U ALYSSIA ALBRECHT ####[address] [address] Epithelial cells 0 TO 2 Normal [facility] Comment on above: Performed By: #### U AXALYSSIA ####[address] [address] RBC Test strip #/vol (U) 0 TO 2 Normal [facility] Comment on above: Performed By: #### U ALYSSIA ALBRECHT ####[address] [address] Urine WBC's 0 TO 2 Normal [facility] Comment on above: Performed By: #### U AX, UMICAO ####[facility] [place] [address] Amorphous Sediment NOT REPORTED Normal NONE [facility] Comment on above: Performed By: #### U AX, UMICAO ####[facility] [place] [address] Casts NOT REPORTED Normal [facility] Comment on above: Performed By: #### U AX, UMICAO ####[address] [address] Crystals NOT REPORTED Normal NONE [facility] Comment on above: Performed By: #### U AX, UMICAO ####[address] [address] Epithelial, Renal NOT REPORTED Normal 0 [facility] Comment on above: Performed By: #### U AX, UMICAO ####[address] [address] Mucus Strands NOT REPORTED Normal NONE [facility] Comment on above: Performed By: #### U AX, UMICAO ####[address] [place] [address] Other Observations NOT REPORTED Normal NREQ [facility] Comment on above: Performed By: #### U AX, UMICAO ####[address] [address] Trichomonas NOT REPORTED Normal NONE [facility] Comment on above: Performed By: #### U AX, UMICAO ####[address] [place] [address] Yeast NOT REPORTED Normal NONE [facility] Comment on above: Performed By: #### U AX, DICKO ####[facility] [place] [address] Acetaminophenon 08-16-2018 Acetaminophen mass conc <5 Low 10-30 [facility] Comment on above: Performed By: #### T ABA HENRADEZ, BMP ####[address] [place] [address] CBC with Diffon 08-16-2018 Abs. Basophil 0.03 k/uL Normal 0.00-0.20 [facility] Comment on above: Performed By: #### T ABA HERNADEZ, BMP ####[address] [place] [address] Abs.Imm.Granulocyte <0.03 Normal 0.00-0.30 [facility] Comment on above: Performed By: #### T ABA HERNADEZ, BMP ####[address] [place] [address] Abs.Neutrophil (Seg) 3.19 k/uL Normal 1.50-8.10 [place] Comment on above: Performed By: #### T ABA HERNADEZ, BMP ####[address] [place] [address] Basophils/100 WBC Auto (Bld) 1 % Normal 0-2 [facility] Comment on above: Performed By: #### T ABA HERNADEZ, BMP ####[address] [place] [address] Eosinophils Auto #/vol (Bld) 0.17 10*3/uL Normal 0.00-0.44 [facility] Comment on above: Performed By: #### T ABA HERNADEZ, BMP ####[address] [place] [address] Eosinophils/100 WBC Auto (Bld) 3 % Normal 1-4 [facility] Comment on above: Performed By: #### T ABA HERNADEZ, BMP ####[address] , [place] [address] Erythrocyte distribution width Auto Ratio (RBC) 12.6 % Normal 11.8-14.4 [facility] Comment on above: Performed By: #### T ABA HERNADEZ, BMP ####[address] , [facility]83 Hematocrit Auto Volume Fraction (Bld) 39.4 % Low 40.7-50.3 [facility] Comment on above: Performed By: #### T ABA HERNADEZ, BMP ####[address] [place] [address] Hemoglobin mass conc (Bld) 13.5 g/dL Normal 13.0-17.0 [facility] Comment on above: Performed By: #### T ABA HERNADEZ, BMP ####[address] , [place] [address] Immature granulocytes #/vol (Bld) 0 % Normal 0 [facility] Comment on above: Performed By: #### T ABA HERNADEZ, BMP ####[address] , [facility]83 Lymphocytes Auto #/vol (Bld) 1.54 10*3/uL Normal 1.10-3.70 [facility] Comment on above: Performed By: #### T ABA HERNADEZ, BMP ####[address] , [place] [address] Lymphocytes/100 WBC Auto (Bld) 28 % Normal 24-43 [facility] Comment on above: Performed By: #### T ABA HERNADEZ, BMP ####[address] [place] [address] MCH Auto Entitic mass (RBC) 33.4 pg Normal 25.2-33.5 [facility] Comment on above: Performed By: #### T ABA HERNADEZ, BMP ####[address] , [facility]83 MCHC Auto mass conc (RBC) 34.3 g/dL Normal 28.4-34.8 [facility] Comment on above: Performed By: #### T SH, CDP, BMP ####[address] , [facility]83 MCV Auto Entitic volume (RBC) 97.5 fL Normal 82.6-102.9 [facility] Comment on above: Performed By: #### T SH, CDP, BMP ####[address] [place] [address] Monocytes Auto #/vol (Bld) 0.66 10*3/uL Normal 0.10-1.20 [facility] Comment on above: Performed By: #### T SH, CDP, BMP ####[address] , [place] [address] Monocytes/100 WBC Auto (Bld) 12 % Normal 3-12 [facility] Comment on above: Performed By: #### T SH, CDP, BMP ####[address] [place] [address] Neutrophil (Seg) 56 % Normal 36-65 [facility] Comment on above: Performed By: #### T SH, CDP, BMP ####[address] [place] [address] NRBC Automated 0.0 per 100 WBC Normal 0.0 [facility] Comment on above: Performed By: #### T SH, CDP, BMP ####[address] [place] [id number] Platelet mean volume Auto Entitic volume (Bld) 8.7 fL Normal 8.1-13.5 [facility] Comment on above: Performed By: #### T SH, CDP, BMP ####[address] [place] [address] Platelets Auto #/vol (Bld) 163 10*3/uL Normal 138-453 [facility] Comment on above: Performed By: #### T ABA HERNADEZ, BMP ####[address] [place] [address] RBC Auto #/vol (Bld) 4.04 10*6/uL Low 4.21-5.77 [facility] Comment on above: Performed By: #### T ABA HERNADEZ, BMP ####[address] [place] [address] WBC Auto #/vol (Bld) 5.6 10*3/uL Normal 3.5-11.3 [facility] Comment on above: Performed By: #### T ABA HERNADEZ, BMP ####[address] [place] [address] Auto Diff Performed NOT REPORTED Normal [facility] Comment on above: Performed By: #### T ABA HERNADEZ, BMP ####[address] [place] [address] Platelets Auto #/vol (Bld) NOT REPORTED Normal [facility] Comment on above: Performed By: #### T ABA HERNADEZ, BMP ####[address] [place] [address] RBC morphology finding Nom (Bld) NOT REPORTED Normal [facility] Comment on above: Performed By: #### T ABA HERNADEZ, BMP ####[address] [place] [address] WBC Morphology NOT REPORTED Normal [facility] Comment on above: Performed By: #### T ABA HERNADEZ, BMP ####[address] [place] [address] Comp Metabolic Profon 2017 (cont.) Normal [facility] Comment on above: Result Comment: Aver age GFR for 70 or more years old: 75 mL/min/1.73sq mChronic Kidney Disease: <60 mL/min/1.73sq mKidney failure: <15 mL/min/1.73sq meGFR calculated using average adult body mass. Additional eGFR calculator available at:http://www.[employer]/multiple_crcl_2012.htm Performed By: #### T ABA HERNADEZ, BMP ####[address] [place] [address] Albumin mass conc 4.0 g/dL Normal 3.5-5.2 [facility] Comment on above: Performed By: #### T ABA HERNADEZ, BMP ####[address] [place] [address] Albumin/Globulin mass ratio 1.7 {ratio} Normal 1.0-2.5 [facility] Comment on above: Performed By: #### T ABA HERNADEZ, BMP ####[address] [place] [id number] Alkaline Phos 71 U/L Normal 40-129 [facility] Comment on above: Performed By: #### T ABA HERNADEZ, BMP ####[address] [place] [address] ALT enzyme act/vol 10 U/L Normal 5-41 [facility] Comment on above: Performed By: #### T ABA HERNADEZ, BMP ####[address] , [facility]83 Anion gap 3 molar conc 10 mmol/L Normal 9-17 [facility] Comment on above: Performed By: #### T ABA HERNADEZ, BMP ####[address] [place] [address] AST enzyme act/vol 14 U/L Normal <40 [facility] Comment on above: Performed By: #### T ABA HERNADEZ, BMP ####[address] [place] [id number] Bilirubin Ql (U) 0.57 mg/dL Normal 0.3-1.2 [facility] Comment on above: Performed By: #### T MARICARMEN CDP, BMP ####[address] [place] [address] BUN/CRE Ratio 9 Normal 9-20 [facility] Comment on above: Performed By: #### T SH, CDP, BMP ####[address] [place] [address] Calcium mass conc 8.9 mg/dL Normal 8.6-10.4 [facility] Comment on above: Performed By: #### T ABA HERNADEZ, BMP ####[address] [place] [address] Chloride molar conc 95 mmol/L Low 98-107 [facility] Comment on above: Performed By: #### T ABA HERNADEZ, BMP ####[address] [place] [address] CO2 molar conc 29 mmol/L Normal 20-31 [facility] Comment on above: Performed By: #### T ABA HERNADEZ, BMP ####[address] [place] [address] Creatinine mass conc 1.42 mg/dL High 0.70-1.20 [place] Comment on above: Performed By: #### T MARICARMEN CDP, BMP ####[address] [place] [address] GFR, Amer 60 mL/min Low >60 [facility] Comment on above: Performed By: #### T MARICARMEN CDP, BMP ####[address] [place] [address] GFR,non Amer 49 mL/min Low >60 [place] Comment on above: Performed By: #### T SH, CDP, BMP ####[address] [place] [address] Glucose mass conc 111 mg/dL High 70-99 [facility] Comment on above: Performed By: #### T ABA HERNADEZ, BMP ####[address] [place] [address] Potassium molar conc 4.0 mmol/L Normal 3.7-5.3 [place] Comment on above: Performed By: #### T ABA HERNADEZ, BMP ####[address] [place] [address] Protein mass conc 6.4 g/dL Normal 6.4-8.3 [facility] Comment on above: Performed By: #### T ABA HERNADEZ, BMP ####[address] [place] [address] Sodium molar conc 134 mmol/L Low 135-144 [facility] Comment on above: Performed By: #### T ABA HERNADEZ, BMP ####[address] [place] [address] Staging: Normal [facility] Comment on above: Result Comment: Stag e 1: Some kidney damage normal GFRStage 2: Mild kidney damage GFR 60-89Stage 3: Moderate kidney damage GFR 30-59Stage 4: Severe kidney damage GFR 15-29Stage 5: Severe kidney damage GFR <15ESRD - chronic treatment by dialysis or transplant Performed By: #### T ABA HERNADEZ, BMP ####[address] [place] [address] Urea nitrogen mass conc 13 mg/dL Normal 8-23 [facility] Comment on above: Performed By: #### T ABA HERNADEZ, BMP ####[address] [place] [address] Drug Scr, Abuse, Uron 2017 Amphetamine(s),Ur Negative Normal NEG [facility] Comment on above: Performed By: #### T ABA HERNADEZ, BMP ####[address] [place] [address] Barbiturate(s),Ur Negative Normal NEG [facility] Comment on above: Performed By: #### T SH, CDP, BMP ####[address] [place] [address] Base excess Calculated molar conc (Bld) Negative Normal NEG [facility] Comment on above: Performed By: #### T SH, CDP, BMP ####[address] [place] [address] Benzodiazepine(s) Positive Abnormal NEG [facility] Comment on above: Performed By: #### T SH, CDP, BMP ####[facility] [address] [place] [address] Buprenorphrine, Ur Negative Normal NEG [facility] Comment on above: Performed By: #### T SH, CDP, BMP ####[facility] [address] , [facility]83 Cannabinoid(s),Ur Negative Normal NEG [facility] Comment on above: Performed By: #### T SH, CDP, BMP ####[facility] [address] [place] [address] Methadone Ql (U) Negative Normal NEG [facility] Comment on above: Performed By: #### T SH, CDP, BMP ####[facility] [address] , [facility]83 Methamphetamine, Ur Negative Normal NEG [facility] Comment on above: Performed By: #### T SH, CDP, BMP ####[facility] [address] [place] [address] Opiate(s), Ur Negative Normal NEG [facility] Comment on above: Performed By: #### T SH, CDP, BMP ####[address] [place] [address] Oxycodone, Urine Negative Normal NEG [facility] Comment on above: Performed By: #### T SH, CDP, BMP ####[address] [place] [address] Phencyclidine, Ur Negative Normal NEG [facility] Comment on above: Performed By: #### T ABA HERNADEZ, BMP ####[address] [place] [address] Propoxyphene,Urine Negative Normal NEG [facility] Comment on above: Performed By: #### T ABA HERNADEZ, BMP ####[address] [place] [address] Tricyclic antidepressants Screen Ql (U) Negative Normal NEG [facility] Comment on above: Result Comment: Drug screen results are to be used for medical purposes only. All positive results are unconfirmed. Testing for employment or legal uses should be sent to a reference laboratory for confirmation. Performed By: #### T ABA HERNADEZ, BMP ####[address] [place] [address] Interpretive Info NOT REPORTED Normal [facility] Comment on above: Performed By: #### T ABA HERNADEZ, BMP ####[address] [place] [address] MDMA, Urine NOT REPORTED Normal NEG [facility] Comment on above: Performed By: #### T ABA HERNADEZ, BMP ####[address] [place] [address] ED Noteon 08-16-2018 HIM IP Note OR Automatic Brine Mixer Operator Normal [facility] HIM IP Note OR Automatic Brine Mixer Operator Normal [facility] HIM IP Note OR Automatic Brine Mixer Operator Normal [facility] HIM IP Note OR Automatic Brine Mixer Operator Normal [facility] HIM IP Note OR Automatic Brine Mixer Operator Normal [facility] HIM IP Note OR Automatic Brine Mixer Operator Normal [facility] HIM IP Note OR Automatic Brine Mixer Operator Normal [facility] HIM IP Note OR Automatic Brine Mixer Operator Normal [facility] HIM IP Note OR Automatic Brine Mixer Operator Normal [facility] HIM IP Note OR Automatic Brine Mixer Operator Normal [facility] HIM IP Note OR Automatic Brine Mixer Operator Normal [facility] HIM IP Note OR Automatic Brine Mixer Operator Normal [facility] HIM IP Note OR Automatic Brine Mixer Operator Normal [facility] HIM IP Note OR Automatic Brine Mixer Operator Normal [facility] HIM IP Note OR Automatic Brine Mixer Operator Normal [facility] HIM IP Note OR Automatic Brine Mixer Operator Normal [facility] HIM IP Note OR Automatic Brine Mixer Operator Normal [facility] HIM IP Note OR Automatic Brine Mixer Operator Normal [facility] HIM IP Note OR Automatic Brine Mixer Operator Normal [facility] ED Provider Noteon 8 HIM IP Note OR Automatic Brine Mixer Operator Normal [facility] Ethanol Alcoholon 08-16-2018 Ethanol mass conc mg/dL Normal <10 [facility] Comment on above: Performed By: #### T ABA HERNADEZ, BMP ####[address] [place] [address] Ethanol percent <0.010 Normal [facility] Comment on above: Performed By: #### T ABA HERNADEZ, BMP ####[address] [place] [address] Salicylateon 08-16-2018 Salicylate <1 Low 3-10 [facility] Comment on above: Performed By: #### T ABA HERNADEZ, BMP ####[address] [place] [address] Thyroid Stim. Horm.on 2017 Thyrotropin Qn 0.80 m[IU]/L Normal 0.30-5.00 [facility] Comment on above: Performed By: #### T ABA HERNADEZ, BMP ####[address] , [place] [id number] Thyroxine, Freeon 08-16-2018 Thyroxine, Free 1.43 ng/dL Normal 0.93-1.70 [facility] Comment on above: Performed By: #### T ABA HERNADEZ, BMP ####[address] [place] [address] Urinalysis w/ Microon 2017 ----- Normal [facility] Comment on above: Performed By: #### T ABA HERNADEZ, BMP ####[address] [place] [address] Acetaminophen mass conc Negative Normal NEG [facility] Comment on above: Performed By: #### T SH, CDP, BMP ####[address] [place] [address] Bacteria TRACE Abnormal NONE [facility] Comment on above: Performed By: #### T SH, CDP, BMP ####[address] [place] [address] Bilirubin, SemiQt,Ur Negative Normal NEG [place] Comment on above: Performed By: #### T SH, CDP, BMP ####[address] [place] [address] Color YELLOW Normal YEL [facility] Comment on above: Performed By: #### T SH, CDP, BMP ####[address] [place] [address] Epithelial cells 0 TO 2 Normal 0-5 [facility] Comment on above: Performed By: #### T SH, CDP, BMP ####[address] [place] [address] Glucose,Semi-qnt,Ur Negative Normal [facility] Comment on above: Performed By: #### T SH, CDP, BMP ####[address] [place] [address] Hemoglobin, Ur Negative Normal [facility] Comment on above: Performed By: #### T SH, CDP, BMP ####[address] [place] [address] Leuckocyte Esterase Negative Normal [facility] Comment on above: Performed By: #### T SH, CDP, BMP ####[address] [place] [address] Nitrite,Ur Negative Normal NEG [facility] Comment on above: Performed By: #### T SH, CDP, BMP ####[address] [place] [address] PH,Ur 7.0 Normal 5.0-9.0 [facility] Comment on above: Performed By: #### T MARICARMEN CDP, BMP ####[address] [place] [address] Protein mass conc Negative Normal NEG [facility] Comment on above: Performed By: #### T MARICARMEN CDP, BMP ####[address] [place] [address] RBC Test strip #/vol (U) 0 TO 2 Normal 0-2 [facility] Comment on above: Performed By: #### T ABA HENRADEZ, BMP ####[address] [place] [address] Spec. [place],Ur <1.005 Low 1.010-1.02 0 [facility] Comment on above: Performed By: #### T ABA HERNADEZ, BMP ####[address] [place] [address] Turbidity CLEAR Normal CLEAR [facility] Comment on above: Performed By: #### T ABA HERNADEZ, BMP ####[address] [place] [address] Urine WBC's 0 TO 2 Normal 0-5 [facility] Comment on above: Performed By: #### T MARICARMEN CDP, BMP ####[address] [place] [address] Urobilinogen,Ur Normal Normal NORM [facility] Comment on above: Performed By: #### T MARICARMEN CDP, BMP ####[address] [place] [address] Amorphous Sediment NOT REPORTED Normal NONE [place] Comment on above: Performed By: #### T MARICARMEN CDP, BMP ####[address] [place] [address] Casts NOT REPORTED Normal [facility] Comment on above: Performed By: #### T SH, CDP, BMP ####[address] [place] [address] Comment NOT REPORTED Normal [facility] Comment on above: Performed By: #### T SH, CDP, BMP ####[address] [place] [address] Crystals NOT REPORTED Normal NONE [facility] Comment on above: Performed By: #### T SH, CDP, BMP ####[address] [place] [address] Epithelial, Renal NOT REPORTED Normal 0 [facility] Comment on above: Performed By: #### T SH, CDP, BMP ####[address] [place] [address] Mucus Strands NOT REPORTED Normal NONE [facility] Comment on above: Performed By: #### T SH, CDP, BMP ####[address] [place] [address] Other Observations NOT REPORTED Normal NREQ [place] Comment on above: Performed By: #### T SH, CDP, BMP ####[address] [place] [address] Trichomonas NOT REPORTED Normal NONE [facility] Comment on above: Performed By: #### T SH, CDP, BMP ####[address] [place] [address] Yeast NOT REPORTED Normal NONE [facility] Comment on above: Performed By: #### T SH, CDP, BMP ####[address] [place] [address] APTTon 08-06-2018 aPTT Coag time (Bld) 28.4 s Normal 23.2-34.4 [place] Comment on above: Performed By: #### T ABA HERNADEZ, BMP ####[address] , [place] [address] CBC with Diffon 08-06-2018 Abs. Basophil 0.03 k/uL Normal 0.00-0.20 [facility] Comment on above: Performed By: #### T ABA HERNADEZ, BMP ####[address] [place] [address] Abs.Imm.Granulocyte <0.03 Normal 0.00-0.30 [facility] Comment on above: Performed By: #### T ABA HERNADEZ BMP ####[address] [place] [address] Abs.Neutrophil (Seg) 4.25 k/uL Normal 1.50-8.10 [place] Comment on above: Performed By: #### T ABA HERNADEZ BMP ####[address] , [place] [address] Basophils/100 WBC Auto (Bld) 1 % Normal 0-2 [facility] Comment on above: Performed By: #### T ABA HERNADEZ BMP ####[address] [place] [address] Eosinophils Auto #/vol (Bld) 0.20 10*3/uL Normal 0.00-0.44 [facility] Comment on above: Performed By: #### T ABA HERNADEZ, BMP ####[address] [place] [address] Eosinophils/100 WBC Auto (Bld) 3 % Normal 1-4 [facility] Comment on above: Performed By: #### T ABA HERNADEZ, BMP ####[address] [place] [address] Erythrocyte distribution width Auto Ratio (RBC) 12.2 % Normal 11.8-14.4 [facility] Comment on above: Performed By: #### T ABA HERNADEZ, BMP ####[address] , [place] [address] Hematocrit Auto Volume Fraction (Bld) 39.4 % Low 40.7-50.3 [facility] Comment on above: Performed By: #### T MARICARMEN CDP, BMP ####[address] , [place] [address] Hemoglobin mass conc (Bld) 13.7 g/dL Normal 13.0-17.0 [facility] Comment on above: Performed By: #### T ABA HERNADEZ, BMP ####[address] , [facility]83 Immature granulocytes #/vol (Bld) 0 % Normal 0 [facility] Comment on above: Performed By: #### T ABA HERNADEZ, BMP ####[address] , [place] [address] Lymphocytes Auto #/vol (Bld) 1.12 10*3/uL Normal 1.10-3.70 [facility] Comment on above: Performed By: #### T ABA HERNADEZ, BMP ####[address] [place] [id number] Lymphocytes/100 WBC Auto (Bld) 18 % Low 24-43 [facility] Comment on above: Performed By: #### T ABA HERNADEZ, BMP ####[address] , [place] [address] MCH Auto Entitic mass (RBC) 33.6 pg High 25.2-33.5 [facility] Comment on above: Performed By: #### T ABA HERNADEZ, BMP ####[address] [place] [id number] MCHC Auto mass conc (RBC) 34.8 g/dL Normal 28.4-34.8 [facility] Comment on above: Performed By: #### T ABA HERNADEZ, BMP ####[address] , [facility]83 MCV Auto Entitic volume (RBC) 96.6 fL Normal 82.6-102.9 [facility] Comment on above: Performed By: #### T SH, CDP, BMP ####[address] [place] [address] Monocytes Auto #/vol (Bld) 0.61 10*3/uL Normal 0.10-1.20 [facility] Comment on above: Performed By: #### T SH, CDP, BMP ####[address] , [place] [address] Monocytes/100 WBC Auto (Bld) 10 % Normal 3-12 [facility] Comment on above: Performed By: #### T MARICARMEN, CDP, BMP ####[address] , [facility]83 Neutrophil (Seg) 68 % High 36-65 [facility] Comment on above: Performed By: #### T SH, CDP, BMP ####[address] , [facility]83 NRBC Automated 0.0 per 100 WBC Normal 0.0 [facility] Comment on above: Performed By: #### T MARICARMEN, CDP, BMP ####[address] [place] [address] Platelet mean volume Auto Entitic volume (Bld) 8.7 fL Normal 8.1-13.5 [facility] Comment on above: Performed By: #### T SH, CDP, BMP ####[address] [place] [address] Platelets Auto #/vol (Bld) 192 10*3/uL Normal 138-453 [facility] Comment on above: Performed By: #### T SH, CDP, BMP ####[address] , [facility]83 RBC Auto #/vol (Bld) 4.08 10*6/uL Low 4.21-5.77 [facility] Comment on above: Performed By: #### T ABA HERNADEZ, BMP ####[address] [place] [address] WBC Auto #/vol (Bld) 6.2 10*3/uL Normal 3.5-11.3 [facility] Comment on above: Performed By: #### ABA OLSON, BMP ####[address] [place] [address] Auto Diff Performed NOT REPORTED Normal [facility] Comment on above: Performed By: #### ABA OLSON, BMP ####[address] [place] [address] Platelets Auto #/vol (Bld) NOT REPORTED Normal [facility] Comment on above: Performed By: #### ABA OLSON, BMP ####[address] [place] [address] RBC morphology finding Nom (Bld) NOT REPORTED Normal [facility] Comment on above: Performed By: #### ABA OLSON, BMP ####[address] [place] [address] WBC Morphology NOT REPORTED Normal [facility] Comment on above: Performed By: #### ABA OLSON, BMP ####[address] [place] [address] CT ABDOMEN PELVIS WO CONTRAS Ton 08-06-2018 [...] by:FARRAH Arredondoigned by:Ketan Hartley MD08/06/18inal result Normal [facility] CT HEAD WO CONTRASTon 2017 [...] by:FARRAH Robbinsigned by:Ayanna Abrams MD08/06/inal result Normal [facility] Comp Metabolic Profon 2017 (cont.) Normal [facility] Comment on above: Result Comment: Aver age GFR for 70 or more years old: 75 mL/min/1.73sq mChronic Kidney Disease: <60 mL/min/1.73sq mKidney failure: <15 mL/min/1.73sq meGFR calculated using average adult body mass. Additional eGFR calculator available at:http://www.[employer]/multiple_crcl_2011.htm Performed By: #### T ABA HERNADEZ BMP ####[address] [place] [address] Albumin mass conc 4.0 g/dL Normal 3.5-5.2 [facility] Comment on above: Performed By: #### ABA OLSON BMP ####[address] [place] [address] Albumin/Globulin mass ratio 1.4 {ratio} Normal 1.0-2.5 [facility] Comment on above: Performed By: #### ABA OLSON BMP ####[address] [place] [id number] Alkaline Phos 79 U/L Normal 40-129 [facility] Comment on above: Performed By: #### ABA OLSON BMP ####[address] [place] [address] ALT enzyme act/vol 11 U/L Normal 5-41 [facility] Comment on above: Performed By: #### ABA OLSON, BMP ####[address] [place] [id number] Anion gap 3 molar conc 12 mmol/L Normal 9-17 [facility] Comment on above: Performed By: #### T ABA HERNADEZ, BMP ####[address] [place] [address] AST enzyme act/vol 15 U/L Normal <40 [facility] Comment on above: Performed By: #### T ABA HERNADEZ, BMP ####[address] , [facility]83 Bilirubin Ql (U) 0.41 mg/dL Normal 0.3-1.2 [facility] Comment on above: Performed By: #### T ABA HERNADEZ, BMP ####[address] [place] [address] BUN/CRE Ratio 8 Low 9-20 [facility] Comment on above: Performed By: #### T ABA HERNADEZ, BMP ####[address] [place] [address] Calcium mass conc 9.1 mg/dL Normal 8.6-10.4 [facility] Comment on above: Performed By: #### T ABA HERNADEZ, BMP ####[address] [place] [address] Chloride molar conc 96 mmol/L Low 98-107 [facility] Comment on above: Performed By: #### T ABA HERNADEZ, BMP ####[address] [place] [address] CO2 molar conc 25 mmol/L Normal 20-31 [facility] Comment on above: Performed By: #### T ABA HERNADEZ, BMP ####[address] [place] [address] Creatinine mass conc 1.45 mg/dL High 0.70-1.20 [place] Comment on above: Performed By: #### T ABA HERNADEZ, BMP ####[address] [place] [address] GFR, Amer 58 mL/min Low >60 [facility] Comment on above: Performed By: #### T MARICARMEN CDP, BMP ####[address] [place] [address] GFR,non Amer 48 mL/min Low >60 [place] Comment on above: Performed By: #### T MARICARMEN, CDP, BMP ####[address] [place] [address] Glucose mass conc 100 mg/dL High 70-99 [facility] Comment on above: Performed By: #### T ABA HERNADEZ, BMP ####[address] [place] [address] Potassium molar conc 3.7 mmol/L Normal 3.7-5.3 [place] Comment on above: Performed By: #### T ABA HERNADEZ, BMP ####[address] [place] [address] Protein mass conc 6.8 g/dL Normal 6.4-8.3 [facility] Comment on above: Performed By: #### T MARICARMEN, CDP, BMP ####[address] [place] [address] Sodium molar conc 133 mmol/L Low 135-144 [facility] Comment on above: Performed By: #### T MARICARMEN, CDP, BMP ####[address] [place] [address] Staging: Normal [facility] Comment on above: Result Comment: Stag e 1: Some kidney damage normal GFRStage 2: Mild kidney damage GFR 60-89Stage 3: Moderate kidney damage GFR 30-59Stage 4: Severe kidney damage GFR 15-29Stage 5: Severe kidney damage GFR <15ESRD - chronic treatment by dialysis or transplant Performed By: #### T MARICARMEN, CDP, BMP ####[address] , [place] [phone] nitrogen mass conc 11 mg/dL Normal 8-23 [facility] Comment on above: Performed By: #### ABA OLSON, SHERRY ####[address] , [place] [phone] ED Provider Noteon 8 HIM IP Note OR Automatic Brine Mixer Operator Normal [facility] Lactic Acidon 08-06-2018 Lactate molar conc 0.8 mmol/L Normal 0.5-2.2 [facility] Comment on above: Performed By: #### ABA OLSON, BMP ####[address] [place] [address] Lactic Acid,Whole Bl NOT REPORTED Normal 0.7-2.1 [facility] Comment on above: Performed By: #### ABA OLSON BMP ####[address] [place] [address] PTon 08-06-2018 INR Coag RelTime (PPP) 1.0 {INR} Normal 0.9-1.2 [facility] Comment on above: Performed By: #### ABA OLSON BMP ####[address] [place] [address] Prothrombin time (PT) Coag time (PPP) 10.6 s Normal 9.7-12.2 [facility] Comment on above: Performed By: #### ABA OLSON, BMP ####[address] , [place] [id number] Thyroid Stim. Horm.on 2017 Thyrotropin Qn 0.37 m[IU]/L Normal 0.30-5.00 [facility] Comment on above: Performed By: #### ABA OLSON, BMP ####[address] [place] [address] Urinalysis, Routineon 2017 Acetaminophen mass conc Negative Normal NEG [facility] Comment on above: Performed By: #### T SH, CDP, BMP ####[address] [place] [address] Bilirubin, SemiQt,Ur Negative Normal NEG [place] Comment on above: Performed By: #### T SH, CDP, BMP ####[address] [place] [address] Color YELLOW Normal YEL [facility] Comment on above: Performed By: #### T SH, CDP, BMP ####[address] [place] [address] Glucose,Semi-qnt,Ur Negative Normal NEG [facility] Comment on above: Performed By: #### T SH, CDP, BMP ####[address] [place] [address] Hemoglobin, Ur TRACE Abnormal NEG [facility] Comment on above: Performed By: #### T SH, CDP, BMP ####[address] [place] [address] Leuckocyte Esterase Negative Normal [facility] Comment on above: Performed By: #### T MARICARMEN, CDP, BMP ####[address] [place] [address] Nitrite,Ur Negative Normal NEG [facility] Comment on above: Performed By: #### T SH, CDP, BMP ####[address] [place] [address] PH,Ur 7.0 Normal 5.0-9.0 [facility] Comment on above: Performed By: #### T SH, CDP, BMP ####[address] [place] [address] Protein mass conc Negative Normal NEG [facility] Comment on above: Performed By: #### T SH, CDP, BMP ####[address] [place] [address] Spec. [place],Ur <1.005 Low 1.010-1.02 0 [facility] Comment on above: Performed By: #### T ABA HERNADEZ, BMP ####[address] [place] [id number] Turbidity CLEAR Normal CLEAR [facility] Comment on above: Performed By: #### T ABA HERNADEZ, BMP ####[address] [place] [address] Urobilinogen,Ur Normal Normal NORM [facility] Comment on above: Performed By: #### T ABA HERNADEZ, BMP ####[address] [place] [address] Comment NOT REPORTED Normal [facility] Comment on above: Performed By: #### T ABA HERNADEZ, BMP ####[address] [place] [address] Urinalysis,Microon 8 ----- Normal [facility] Comment on above: Performed By: #### T ABA HERNADEZ, BMP ####[address] [place] [address] Epithelial cells 0 TO 2 Normal 0-5 [facility] Comment on above: Performed By: #### T ABA HERNADEZ, BMP ####[address] [place] [address] RBC Test strip #/vol (U) 0 TO 2 Normal 0-2 [facility] Comment on above: Performed By: #### T ABA HERNADEZ, BMP ####[address] [place] [address] Urine WBC's 0 TO 2 Normal 0-5 [facility] Comment on above: Performed By: #### T ABA HERNADEZ, BMP ####[address] [place] [address] Amorphous Sediment NOT REPORTED Normal NONE [place] Comment on above: Performed By: #### T SH, CDP, BMP ####[address] [place] [address] Bacteria NOT REPORTED Normal NONE [facility] Comment on above: Performed By: #### T SH, CDP, BMP ####[address] [place] [address] Casts NOT REPORTED Normal [facility] Comment on above: Performed By: #### T SH, CDP, BMP ####[address] [place] [address] Crystals NOT REPORTED Normal NONE [facility] Comment on above: Performed By: #### T SH, CDP, BMP ####[address] [place] [address] Epithelial, Renal NOT REPORTED Normal 0 [facility] Comment on above: Performed By: #### T SH, CDP, BMP ####[address] [place] [address] Mucus Strands NOT REPORTED Normal [facility] Comment on above: Performed By: #### T SH, CDP, BMP ####[address] [place] [address] Other Observations NOT REPORTED Normal NREQ [place] Comment on above: Performed By: #### T SH, CDP, BMP ####[address] [place] [address] Trichomonas NOT REPORTED Normal NONE [facility] Comment on above: Performed By: #### T SH, CDP, BMP ####[address] [place] [address] Yeast NOT REPORTED Normal NONE [facility] Comment on above: Performed By: #### T SH, CDP, BMP ####[address] [place] [address] UA w/Reflex Cultureon 2017 Acetoacetic Acid,Ur Negative Normal [facility] Comment on above: Performed By: #### T SH, CDP, BMP ####[address] [place] [address] Bilirubin, SemiQt,Ur Negative Normal [facility] Comment on above: Performed By: #### T SH, CDP, BMP ####[address] [place] [address] Color YELLOW Normal YEL [facility] Comment on above: Performed By: #### T SH, CDP, BMP ####[address] [place] [address] Glucose,Semi-qnt,Ur Negative Normal [facility] Comment on above: Performed By: #### T SH, CDP, BMP ####[address] [place] [address] Hemoglobin, Ur Negative Normal [facility] Comment on above: Performed By: #### T SH, CDP, BMP ####[address] [place] [address] Leuckocyte Esterase Negative Normal [facility] Comment on above: Performed By: #### T SH, CDP, BMP ####[address] [place] [address] Nitrite,Ur Negative Normal [facility] Comment on above: Performed By: #### T SH, CDP, BMP ####[address] [place] [address] PH,Ur 7.0 Normal 5.0-9.0 [facility] Comment on above: Performed By: #### T SH, CDP, BMP ####[address] [place] [address] Protein, Semi-qnt,Ur Negative Normal NEG [place] Comment on above: Performed By: #### T MARICARMEN, CDP, BMP ####[address] [place] [address] Spec. [place],Ur <1.005 Low 1.010-1.02 0 [facility] Comment on above: Performed By: #### T MARICARMEN, CDP, BMP ####[address] [place] [address] Turbidity CLEAR Normal CLEAR [facility] Comment on above: Performed By: #### T MARICARMEN, CDP, BMP ####[address] [place] [address] Urobilinogen,Ur Normal Normal NORM [facility] Comment on above: Performed By: #### T MARICARMEN CDP, BMP ####[address] [place] [address] Comment NOT REPORTED Normal [facility] Comment on above: Performed By: #### T ABA HERNADEZ, BMP ####[address] [place] [address] Urinalysis,Microon 8 ----- Normal [facility] Comment on above: Performed By: #### T MARICAREMN, CDP, BMP ####[address] [place] [address] Epithelial cells 0 TO 2 Normal 0-5 [facility] Comment on above: Performed By: #### T MARICARMEN, CDP, BMP ####[address] [place] [address] RBC Test strip #/vol (U) 0 TO 2 Normal 0-2 [facility] Comment on above: Performed By: #### T MARICARMEN, CDP, BMP ####[address] [place] [address] Urine WBC's 0 TO 2 Normal 0-5 [facility] Comment on above: Performed By: #### T MARICARMEN, CDP, BMP ####[address] [place] [address] Amorphous Sediment NOT REPORTED Normal NONE [place] Comment on above: Performed By: #### T SH, CDP, BMP ####[address] [place] [address] Bacteria NOT REPORTED Normal NONE [facility] Comment on above: Performed By: #### T MARICARMEN, CDP, BMP ####[address] [place] [address] Casts NOT REPORTED Normal [facility] Comment on above: Performed By: #### T MARICARMEN CDP, BMP ####[address] [place] [address] Crystals NOT REPORTED Normal NONE [facility] Comment on above: Performed By: #### T MARICARMEN CDP, BMP ####[address] [place] [address] Epithelial, Renal NOT REPORTED Normal 0 [facility] Comment on above: Performed By: #### T MARICARMEN CDP, BMP ####[address] [place] [address] Mucus Strands NOT REPORTED Normal NONE [facility] Comment on above: Performed By: #### T MARICARMEN CDP, BMP ####[address] [place] [address] Other Observations NOT REPORTED Normal NREQ [place] Comment on above: Performed By: #### T SH, CDP, BMP ####[address] [place] [address] Trichomonas NOT REPORTED Normal NONE [facility] Comment on above: Performed By: #### T SH, CDP, BMP ####[address] [place] [address] Yeast NOT REPORTED Normal NONE [facility] Comment on above: Performed By: #### T SH, CDP, BMP ####[address] , [place] [address] CBC with Diffon 06-15-2018 Abs. Basophil <0.03 Normal 0.00-0.20 [facility] Comment on above: Performed By: #### T ABA HERNADEZ, BMP ####[address] , [facility]83 Abs.Imm.Granulocyte 0.03 k/uL Normal 0.00-0.30 [facility] Comment on above: Performed By: #### T ABA HERNADEZ, BMP ####[address] [place] [address] Abs.Neutrophil (Seg) 3.87 k/uL Normal 1.50-8.10 [place] Comment on above: Performed By: #### T ABA HERNADEZ, BMP ####[address] , [place] [address] Basophils/100 WBC Auto (Bld) 0 % Normal 0-2 [facility] Comment on above: Performed By: #### T ABA HERNADEZ, BMP ####[address] [place] [address] Eosinophils Auto #/vol (Bld) 0.34 10*3/uL Normal 0.00-0.44 [facility] Comment on above: Performed By: #### T ABA HERNADEZ, BMP ####[address] , [place] [address] Eosinophils/100 WBC Auto (Bld) 6 % High 1-4 [facility] Comment on above: Performed By: #### T ABA HERNADEZ, BMP ####[address] [place] [address] Erythrocyte distribution width Auto Ratio (RBC) 12.9 % Normal 11.8-14.4 [facility] Comment on above: Performed By: #### T ABA HERNADEZ, BMP ####[address] [place] [id number] Hematocrit Auto Volume Fraction (Bld) 40.4 % Low 40.7-50.3 [facility] Comment on above: Performed By: #### T MARICARMEN CDP, BMP ####[address] , [facility]83 Hemoglobin mass conc (Bld) 14.0 g/dL Normal 13.0-17.0 [facility] Comment on above: Performed By: #### T MARICARMEN, CDP, BMP ####[address] [place] [address] Immature granulocytes #/vol (Bld) 1 % High 0 [facility] Comment on above: Performed By: #### T ABA HERNADEZ, BMP ####[address] [place] [id number] Lymphocytes Auto #/vol (Bld) 1.24 10*3/uL Normal 1.10-3.70 [facility] Comment on above: Performed By: #### T ABA HERNADEZ, BMP ####[address] [place] [address] Lymphocytes/100 WBC Auto (Bld) 21 % Low 24-43 [facility] Comment on above: Performed By: #### T MARICARMEN, ABA, BMP ####[address] [place] [address] MCH Auto Entitic mass (RBC) 33.7 pg High 25.2-33.5 [facility] Comment on above: Performed By: #### T MARICARMEN, CDP, BMP ####[address] [place] [address] MCHC Auto mass conc (RBC) 34.7 g/dL Normal 28.4-34.8 [facility] Comment on above: Performed By: #### T MARICARMEN, CDP, BMP ####[address] [place] [address] MCV Auto Entitic volume (RBC) 97.1 fL Normal 82.6-102.9 [facility] Comment on above: Performed By: #### T ABA HERNADEZ, BMP ####[address] , [facility]83 Monocytes Auto #/vol (Bld) 0.46 10*3/uL Normal 0.10-1.20 [facility] Comment on above: Performed By: #### T MARICARMEN, CDP, BMP ####[address] , [facility]83 Monocytes/100 WBC Auto (Bld) 8 % Normal 3-12 [facility] Comment on above: Performed By: #### T ABA HERNADEZ, BMP ####[address] , [facility]83 Neutrophil (Seg) 64 % Normal 36-65 [facility] Comment on above: Performed By: #### T ABA HERNADEZ, BMP ####[address] , [place] [address] NRBC Automated 0.0 per 100 WBC Normal 0.0 [facility] Comment on above: Performed By: #### T ABA HERNADEZ, BMP ####[address] , [facility]83 Platelet mean volume Auto Entitic volume (Bld) 9.0 fL Normal 8.1-13.5 [facility] Comment on above: Performed By: #### T MARICARMEN, ABA, BMP ####[address] , [facility]83 Platelets Auto #/vol (Bld) 157 10*3/uL Normal 138-453 [facility] Comment on above: Performed By: #### T MARICARMEN, CDP, BMP ####[address] , [facility]83 RBC Auto #/vol (Bld) 4.16 10*6/uL Low 4.21-5.77 [facility] Comment on above: Performed By: #### T ABA HERNADEZ, BMP ####[address] , [place] [address] WBC Auto #/vol (Bld) 6.0 10*3/uL Normal 3.5-11.3 [facility] Comment on above: Performed By: #### T ABA HERNADEZ, BMP ####[address] [place] [address] Auto Diff Performed NOT REPORTED Normal [facility] Comment on above: Performed By: #### T ABA HERNADEZ, BMP ####[address] [place] [address] Platelets Auto #/vol (Bld) NOT REPORTED Normal [facility] Comment on above: Performed By: #### T ABA HERNADEZ, BMP ####[address] [place] [address] RBC morphology finding Nom (Bld) NOT REPORTED Normal [facility] Comment on above: Performed By: #### T ABA HERNADEZ, BMP ####[address] [place] [address] WBC Morphology NOT REPORTED Normal [facility] Comment on above: Performed By: #### T ABA HERNADEZ, BMP ####[address] , [facility]83 Comp Metabol,Fastingon 06-15 (cont.) Normal [facility] Comment on above: Result Comment: Aver age GFR for 70 or more years old: 75 mL/min/1.73sq mChronic Kidney Disease: <60 mL/min/1.73sq mKidney failure: <15 mL/min/1.73sq meGFR calculated using average adult body mass. Additional eGFR calculator available at:http://www.[employer]/multiple_crcl_2012.htm Performed By: #### T ABA HERNADEZ, BMP ####[address] [place] [address] Albumin mass conc 4.0 g/dL Normal 3.5-5.2 [facility] Comment on above: Performed By: #### T MARICARMEN, CDP, BMP ####[address] [place] [address] Albumin/Globulin mass ratio 1.5 {ratio} Normal 1.0-2.5 [facility] Comment on above: Performed By: #### T MARICARMEN, CDP, BMP ####[address] [place] [address] Alkaline Phos 74 U/L Normal 40-129 [facility] Comment on above: Performed By: #### T MARICARMEN, CDP, BMP ####[address] [place] [address] ALT enzyme act/vol 10 U/L Normal 5-41 [facility] Comment on above: Performed By: #### T MARICARMEN, CDP, BMP ####[address] [place] [address] Anion gap 3 molar conc 11 mmol/L Normal 9-17 [facility] Comment on above: Performed By: #### T MARICARMEN, CDP, BMP ####[address] [place] [address] AST enzyme act/vol 15 U/L Normal <40 [facility] Comment on above: Performed By: #### T MARICARMEN, CDP, BMP ####[address] [place] [address] Bilirubin Ql (U) 0.50 mg/dL Normal 0.3-1.2 [facility] Comment on above: Performed By: #### T MARICARMEN, CDP, BMP ####[address] [place] [address] BUN/CRE Ratio 9 Normal 9-20 [facility] Comment on above: Performed By: #### T SH, CDP, BMP ####[address] [place] [address] Calcium mass conc 9.6 mg/dL Normal 8.6-10.4 [facility] Comment on above: Performed By: #### T SH, CDP, BMP ####[address] [place] [address] Chloride molar conc 102 mmol/L Normal 98-107 [facility] Comment on above: Performed By: #### T SH, CDP, BMP ####[address] [place] [address] CO2 molar conc 28 mmol/L Normal 20-31 [facility] Comment on above: Performed By: #### T SH, CDP, BMP ####[address] [place] [address] Creatinine mass conc 1.71 mg/dL High 0.70-1.20 [place] Comment on above: Performed By: #### T SH, CDP, BMP ####[address] [place] [address] GFR, Amer 48 mL/min Low >60 [facility] Comment on above: Performed By: #### T SH, CDP, BMP ####[address] [place] [address] GFR,non Amer 40 mL/min Low >60 [place] Comment on above: Performed By: #### T SH, CDP, BMP ####[address] [place] [address] Glucose mass conc 95 mg/dL Normal 70-99 [facility] Comment on above: Performed By: #### T SH, CDP, BMP ####[address] [place] [address] Potassium molar conc 4.3 mmol/L Normal 3.7-5.3 [place] Comment on above: Performed By: #### T SH, CDP, BMP ####[address] [place] [address] Protein mass conc 6.7 g/dL Normal 6.4-8.3 [facility] Comment on above: Performed By: #### T SH, CDP, BMP ####[address] [place] [address] Sodium molar conc 141 mmol/L Normal 135-144 [facility] Comment on above: Performed By: #### T SH, CDP, BMP ####[address] [place] [address] Staging: Normal [facility] Comment on above: Result Comment: Stag e 1: Some kidney damage normal GFRStage 2: Mild kidney damage GFR 60-89Stage 3: Moderate kidney damage GFR 30-59Stage 4: Severe kidney damage GFR 15-29Stage 5: Severe kidney damage GFR <15ESRD - chronic treatment by dialysis or transplant Performed By: #### T SH, CDP, BMP ####[address] [place] [address] Urea nitrogen mass conc 15 mg/dL Normal 8-23 [facility] Comment on above: Performed By: #### T MARICARMEN, CDP, BMP ####[address] [place] [address] Lipid Prof, Fastingon 2017 Cholesterol in HDL mass conc 53 mg/dL Normal >40 [facility] Comment on above: Result Comment: HDL Guidelines: <40 Undesirable 40-59 Borderline >59 Desirable Performed By: #### T SH, CDP, BMP ####[address] [place] [address] Cholesterol in LDL mass conc 55 mg/dL Normal 0-130 [facility] Comment on above: Result Comment: LDL Guidelines: <100 Desirable 100-129 Near to/above Desirable 130-159 Borderline >159 UndesirableDirect (measured) LDL and calculated LDL are not interchangeable tests. Performed By: #### T ABA HERNADEZ, BMP ####[address] [place] [address] Cholesterol mass conc 137 mg/dL Normal <200 [facility] Comment on above: Result Comment: Chol esterol Guidelines: <200 Desirable 200-240 Borderline >240 Undesirable Performed By: #### T ABA HERNADEZ, BMP ####[address] [place] [address] Cholesterol.total/Chol esterol in HDL mass ratio 2.6 {ratio} Normal <5 [facility] Comment on above: Performed By: #### T ABA HERNADEZ, BMP ####[address] [place] [address] Triglyceride,Fasting 147 mg/dL Normal <150 [place] Comment on above: Result Comment: Trig lyceride Guidelines: <150 Desirable 150- 199 Borderline 200-499 High >499 Very high Based on AHA Guidelines for fasting triglyceride, July 2012. Performed By: #### T ABA HERNADEZ, BMP ####[address] [place] [address] Cholesterol in VLDL mass conc NOT REPORTED Normal 11-25 [facility] Comment on above: Performed By: #### T ABA HERNADEZ, BMP ####[address] [place] [address] Thyroid Stim. Horm.on 2017 Thyrotropin Qn 0.43 m[IU]/L Normal 0.30-5.00 [facility] Comment on above: Performed By: #### T ABA HERNADEZ, BMP ####[address] [place] [address] Thyroxine, Freeon 06-15-2018 Thyroxine, Free 1.37 ng/dL Normal 0.93-1.70 [facility] Comment on above: Performed By: #### T ABA HERNADEZ, BMP ####[address] [place] [address] Group A Strep DNAon 05-05-20 18 Group A Strep DNA Specimen Description .THROAT SWABSpecial Requests NOT REPORTEDDirect Exam Negative: Specimen negative for Streptococcus pyogenes by DNA amplification.Report Status FINAL 05/05/2018 [facility] Comment on above: Performed By: #### G ASDNA ####[address] [phone] [place] [address] Strep Gr A Direct Agon 05-04 S. pyogenes Ag IA Ql (Unsp spec) Specimen Description .THROATSpecial Requests NOT REPORTEDDirect Exam Rapid Strep A negative. A negative Rapid Group A Strep Screen result does not rule out the possibility of Group A Streptococci in the specimen. A Group A strep DNA test will be performed. Report Status FINAL 05/04/2018 [facility] Comment on above: Performed By: #### S GPA ####[address] [place] [address] XR CHEST (2 VW)on 05-04-2018 [...] by:FARRAH Shresthaigned by:Bijan Miranda MD05/04/18inal result Normal [facility] H. pylori Antigenon 03-31-20 18 H. pylori Antigen Specimen Description .FECES Performed at [address] [place] [address] [phone] Special Requests NOT REPORTEDDirect Exam NEGATIVE Performed at [address] [id number] [phone] Report Status FINAL 03/31/2018 [facility] Comment on above: Performed By: #### F HPY ####[address] [place] [phone] [place] [address] CT ABDOMEN PELVIS W IV [...] by:FARRAH Zelayaigned by:Jessa Garcia MD03/13/inal result Normal [facility] Basic Metabolic Profon 03-12 (cont.) Normal [facility] Comment on above: Result Comment: Aver age GFR for 70 or more years old: 75 mL/min/1.73sq mChronic Kidney Disease: <60 mL/min/1.73sq mKidney failure: <15 mL/min/1.73sq meGFR calculated using average adult body mass. Additional eGFR calculator available at:http://www.[employer]/multiple_crcl_2012.htm Performed By: #### B MP ####[address] [place] [address] Anion gap 3 molar conc 12 mmol/L Normal 9-17 [facility] Comment on above: Performed By: #### B MP ####[facility] [place] [address] BUN/CRE Ratio 13 Normal 9-20 [facility] Comment on above: Performed By: #### B MP ####[address] [place] [address] Calcium mass conc 9.2 mg/dL Normal 8.6-10.4 [facility] Comment on above: Performed By: #### B MP ####[address] [place] [address] Chloride molar conc 98 mmol/L Normal 98-107 [facility] Comment on above: Performed By: #### B MP ####[address] [place] [address] CO2 molar conc 27 mmol/L Normal 20-31 [facility] Comment on above: Performed By: #### B MP ####[address] [place] [address] Creatinine mass conc 1.44 mg/dL High 0.70-1.20 [place] Comment on above: Performed By: #### B MP ####[address] [place] [address] GFR, Amer 59 mL/min Low >60 [facility] Comment on above: Performed By: #### B MP ####[address] [place] [address] GFR,non Amer 48 mL/min Low >60 [place] Comment on above: Performed By: #### B MP ####[address] [place] [address] Glucose mass conc 98 mg/dL Normal 70-99 [facility] Comment on above: Performed By: #### B MP ####[address] [place] [address] Potassium molar conc 4.4 mmol/L Normal 3.7-5.3 [place] Comment on above: Performed By: #### B MP ####[address] [place] [address] Sodium molar conc 137 mmol/L Normal 135-144 [facility] Comment on above: Performed By: #### B MP ####[address] [place] [address] Staging: Normal [facility] Comment on above: Result Comment: Stag e 1: Some kidney damage normal GFRStage 2: Mild kidney damage GFR 60-89Stage 3: Moderate kidney damage GFR 30-59Stage 4: Severe kidney damage GFR 15-29Stage 5: Severe kidney damage GFR <15ESRD - chronic treatment by dialysis or transplantPerformed at [address] [place] [address] Performed By: #### B MP ####[address] [place] [address] Urea nitrogen mass conc 18 mg/dL Normal 8-23 [facility] Comment on above: Performed By: #### B MP ####[address] [id number] Basic Metabolic Profon 10-14 (cont.) Normal [facility] Comment on above: Result Comment: Aver age GFR for 70 or more years old: 75 mL/min/1.73sq mChronic Kidney Disease: <60 mL/min/1.73sq mKidney failure: <15 mL/min/1.73sq meGFR calculated using average adult body mass. Additional eGFR calculator available at:http://www.[employer]/multiple_crcl_2011.htm Performed By: #### T SH, CDP, BMP ####[address] [place] [address] Anion gap 3 molar conc 13 mmol/L Normal 9-17 [facility] Comment on above: Performed By: #### T ABA HERNADEZ, BMP ####[address] [place] [address] BUN/CRE Ratio 16 Normal 9-20 [facility] Comment on above: Performed By: #### T ABA HERNADEZ, BMP ####[address] , [facility]83 Calcium mass conc 9.2 mg/dL Normal 8.6-10.4 [facility] Comment on above: Performed By: #### T ABA HERNADEZ, BMP ####[address] [place] [address] Chloride molar conc 94 mmol/L Low 98-107 [facility] Comment on above: Performed By: #### T ABA HERNADEZ, BMP ####[address] , [place] [address] CO2 molar conc 26 mmol/L Normal 20-31 [facility] Comment on above: Performed By: #### T ABA HERNADEZ, BMP ####[address] [place] [address] Creatinine mass conc 1.60 mg/dL High 0.70-1.20 [place] Comment on above: Performed By: #### T ABA HERNADEZ, BMP ####[address] , [facility]83 GFR, Amer 52 mL/min Low >60 [facility] Comment on above: Performed By: #### T ABA HERNADEZ, BMP ####[address] [place] [address] GFR,non Amer 43 mL/min Low >60 [place] Comment on above: Performed By: #### T ABA HERNADEZ, BMP ####[address] [place] [address] Glucose mass conc 108 mg/dL High 70-99 [facility] Comment on above: Performed By: #### T ABA HERNADEZ BMP ####[address] [place] [address] Potassium molar conc 3.9 mmol/L Normal 3.7-5.3 [place] Comment on above: Performed By: #### ABA OLSON, BMP ####[address] [place] [address] Sodium molar conc 133 mmol/L Low 135-144 [facility] Comment on above: Performed By: #### ABA OLSON BMP ####[address] [place] [address] Staging: Normal [facility] Comment on above: Result Comment: Stag e 1: Some kidney damage normal GFRStage 2: Mild kidney damage GFR 60-89Stage 3: Moderate kidney damage GFR 30-59Stage 4: Severe kidney damage GFR 15-29Stage 5: Severe kidney damage GFR <15ESRD - chronic treatment by dialysis or transplantPerformed at [address] [place] [address] Performed By: #### ABA OLSON BMP ####[address] [place] [address] Urea nitrogen mass conc 25 mg/dL High 8-23 [facility] Comment on above: Performed By: #### ABA OLSON BMP ####[address] [place] [address] CBC with Diffon 10-14-2017 Abs. Basophil 0.00 k/uL Normal 0.0-0.2 [facility] Comment on above: Performed By: #### ABA OLSON, BMP ####[address] [place] [address] Abs.Neutrophil (Seg) 8.99 k/uL High 1.8-7.7 [place] Comment on above: Performed By: #### T SH CDP, BMP ####[address] , [place] [address] Basophils/100 WBC Auto (Bld) 0 % Normal 0-2 [facility] Comment on above: Performed By: #### T SH CDP, BMP ####[address] , [place] [address] Eosinophils Auto #/vol (Bld) 0.21 10*3/uL Normal 0.0-0.4 [facility] Comment on above: Performed By: #### T ABA HERNADEZ, BMP ####[address] , [facility]83 Eosinophils/100 WBC Auto (Bld) 2 % Normal 0-8 [facility] Comment on above: Performed By: #### T MARICARMEN CDP, BMP ####[address] , [place] [address] Lymphocytes Auto #/vol (Bld) 1.18 10*3/uL Normal 1.0-4.8 [facility] Comment on above: Performed By: #### T ABA HERNADEZ, BMP ####[address] , [facility]83 Lymphocytes/100 WBC Auto (Bld) 11 % Low 24-44 [facility] Comment on above: Performed By: #### T MARICARMEN CDP, BMP ####[address] , [place] [address] Monocytes Auto #/vol (Bld) 0.32 10*3/uL Normal 0.0-1.0 [facility] Comment on above: Performed By: #### T MARICARMEN CDP, BMP ####[address] , [facility]83 Monocytes/100 WBC Auto (Bld) 3 % Normal 0-12 [facility] Comment on above: Performed By: #### T SH, CDP, BMP ####[address] [place] [address] Morphology Interp Azar (Bld) Normal Normal [facility] Comment on above: Result Comment: Perf ormed at [address] [place] [address] Performed By: #### T ABA HERNADEZ, BMP ####[address] [place] [address] Neutrophil (Seg) 84 % High 36-66 [facility] Comment on above: Performed By: #### T ABA HERNADEZ, BMP ####[address] [place] [address] Erythrocyte distribution width Auto Ratio (RBC) 14.0 % Normal 12.1-15.2 [facility] Comment on above: Performed By: #### T ABA HERNADEZ, BMP ####[address] [place] [address] Hematocrit Auto Volume Fraction (Bld) 44.7 % Normal 41-53 [facility] Comment on above: Performed By: #### T ABA HERNADEZ, BMP ####[address] [place] [address] Hemoglobin mass conc (Bld) 14.6 g/dL Normal 13.5-17.0 [facility] Comment on above: Performed By: #### T ABA HERNADEZ, BMP ####[address] [place] [address] MCH Auto Entitic mass (RBC) 32.2 pg Normal 26-34 [facility] Comment on above: Performed By: #### T ABA HERNADEZ, BMP ####[address] [place] [address] MCHC Auto mass conc (RBC) 32.6 g/dL Normal 31-37 [facility] Comment on above: Performed By: #### T ABA HERNADEZ, BMP ####[address] [place] [address] MCV Auto Entitic volume (RBC) 98.7 fL Normal 80-100 [facility] Comment on above: Performed By: #### T ABA HERNADEZ, BMP ####[address] [place] [address] Platelet mean volume Auto Entitic volume (Bld) 7.3 fL Normal 6.0-12.0 [facility] Comment on above: Performed By: #### T ABA HERNADEZ, BMP ####[address] [place] [address] Platelets Auto #/vol (Bld) 216 10*3/uL Normal 140-450 [facility] Comment on above: Performed By: #### T ABA HERNADEZ, BMP ####[address] [place] [address] RBC Auto #/vol (Bld) 4.53 10*6/uL Normal 4.5-5.9 [facility] Comment on above: Performed By: #### T ABA HERNADEZ, BMP ####[address] [place] [address] WBC Auto #/vol (Bld) 10.7 10*3/uL Normal 3.5-11.0 [facility] Comment on above: Performed By: #### T ABA HERNADEZ, BMP ####[address] [place] [address] Abs.Imm.Granulocyte NOT REPORTED Normal 0.00-0.30 [facility] Comment on above: Performed By: #### T ABA HERNADEZ, BMP ####[address] [place] [address] Auto Diff Performed NOT REPORTED Normal [facility] Comment on above: Performed By: #### T ABA HERNADEZ, BMP ####[address] , [place] [address] Immature granulocytes #/vol (Bld) NOT REPORTED Normal 0 [facility] Comment on above: Performed By: #### T ABA HERNADEZ, BMP ####[address] , [place] [phone] Platelets Auto #/vol (Bld) NOT REPORTED Normal [facility] Comment on above: Performed By: #### T MARICARMEN, ABA, BMP ####[address] , [place] [id number] RBC morphology finding Nom (Bld) NOT REPORTED Normal [facility] Comment on above: Performed By: #### T MARICARMEN, ABA, BMP ####[address] [place] [address] WBC Morphology NOT REPORTED Normal [facility] Comment on above: Performed By: #### T MARICARMEN, ABA, BMP ####[address] , [place] [id number] Thyroid Stim. Horm.on 2016 Thyrotropin Qn 0.23 m[IU]/L Low 0.30-5.00 [facility] Comment on above: Result Comment: Perf ormed at [address] [place] [address] Performed By: #### T MARICARMEN, ABA, BMP ####[address] [place] [address] PSA, [employer] 10-01-2017 Prostatic Spec. Ag 0.42 ug/L Normal <4.1 [facility] Comment on above: Result Comment: The [employer] ECLIA assay is used. Results obtained with different assay methods cannot be used interchangeably.Performed at [address] [place] [id number] [phone] Performed By: #### P SAD ####[address] [place] [address] Vital Signs Date Time Vital Sign Value Performing Clinician Facility 10-14-2024 09:05-0500 Body height 185.4 cm Smith Munguia DPM Work Phone: [facility] 10-14-2024 09:05-0500 Body mass index (BMI) [Ratio] 26.39 kg/m2 Smith Munguia DPM Work Phone: [facility] 10-14-2024 09:05-0500 Body weight 90.72 kg Smith Munguia DPM Work Phone: [facility] 10-14-2024 09:05-0500 Respiratory rate 16 /min Smith Munguia DPM Work Phone: [facility] 08-12-2024 08:30-0400 Blood Pressure Location [facility] 08-12-2024 08:30-0400 Diastolic blood pressure 72 mm[Hg] Elizabeth Galea [facility] 08-12-2024 08:30-0400 Heart rate 70 /min Elizabeth Galea [facility] 08-12-2024 08:30-0400 Systolic blood pressure 142 mm[Hg] Elizabeth Galea [facility] 10-18-2023 12:16-0500 Heart rate 84 /min [facility] 10-18-2023 11:43-0500 Body height 185.42 cm [facility] 10-18-2023 11:43-0500 Body temperature 98.3 [degF] [facility] 10-18-2023 11:43-0500 Body weight 90.9 kg [facility] 10-18-2023 11:43-0500 Diastolic blood pressure 66 mm[Hg] [facility] 10-18-2023 11:43-0500 Respiratory rate 21 /min [facility] 10-18-2023 11:43-0500 SaO2% (BldA) [Mass fraction] 97 % [facility] 10-18-2023 11:43-0500 Systolic blood pressure 142 mm[Hg] [facility] 10-18-2023 10:20-0500 Body height 185.42 cm Brittany Amador Other [employer] Other 10-18-2023 10:20-0500 Body mass index (BMI) [Ratio] 26.36 kg/m2 Brittany Amador Other [employer] Other 10-18-2023 10:20-0500 Body temperature 98.9 [degF] Brittany Amador Other [employer] Other 10-18-2023 10:20-0500 Body weight 90.63 kg Brittany Amador Other [employer] Other 10-18-2023 10:20-0500 Respiratory rate 18 /min Brittany Amador Other [employer] Other 10-18-2023 10:20-0500 SaO2% (BldA) [Mass fraction] 99 % Brittany Amador Other [employer] Other Encounters Encounter Date Encounter Type Care Provider Facility Start: 03-11-2025 ambulatory Claritza Snideri ty:[facility] Start: 11-09-2024 End: 11-09-2024 ambulatory Claritza YARBROUGH Facility:[facility] Start: 11-09-2024 End: 11-09-2024 Patient encounter procedure Claritza YARBROUGH [facility] Start: 10-14-2024 End: 10-14-2024 Stalin Munguia DPM Work Phone: [facility] Start: 10-14-2024 End: 10-14-2024 Bamboo flowsheet Smith Munguia DPM Work Phone: [facility] Start: 10-14-2024 End: 10-14-2024 Patient encounter procedure Smith Munguia DPM Work Phone: [facility] Comment on above: 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); Xerosis cutis; Hav (hallux abducto valgus), left; Hav (hallux abducto valgus), right Start: 10-14-2024 End: 10-14-2024 ambulatory SMITH MUNGUIA Not Available Start: 09-10-2024 End: 09-10-2024 ambulatory Claritza YARBROUGH Facility:[facility] Start: 09-10-2024 End: 09-10-2024 Patient encounter procedure Claritza YARBROUGH [facility] Start: 09-07-2024 End: 09-07-2024 ambulatory Elizabeth J Galea Facility:[facility] Start: 09-07-2024 End: 09-07-2024 Patient encounter procedure Elizabeth J Galea [facility] Start: 09-02-2024 ambulatory Elizabeth J Galea Facility :[facility] Start: 08-18-2024 End: 08-18-2024 [facility] Start: 08-18-2024 End: 08-18-2024 Patient encounter procedure Elizabeth J Galea [facility] Start: 08-12-2024 End: 08-12-2024 ambulatory Elizabeth J Galea Facility:[facility] Start: 08-12-2024 End: 08-12-2024 Patient encounter procedure Elizabeth J Galea [facility] Start: 06-16-2024 ambulatory Elizabeth Victoria Facility:[facility] Start: 06-10-2024 End: 06-10-2024 ambulatory SMITH MUNGUIA Not Available Start: 02-26-2024 End: 02-26-2024 ambulatory SMITH MUNGUIA Not Available Start: 11-20-2023 End: 11-20-2023 ambulatory SMITH MUNGUIA Not Available Start: 10-18-2023 End: 10-18-2023 ambulatory Brittany Amador Other [employer] Other Start: 10-18-2023 Patient encounter procedure Brittany Marjorie [facility] Start: 10-18-2023 End: 10-18-2023 Emergency department patient visit Michael Amador Facility:[facility] Start: 10-18-2023 End: 10-18-2023 Emergency department patient visit [facility] Work Phone: Start: 03-10-[address] THEE MCGUIRE Facil ity:[facility] Start: 10-30-2022 End: 10-30-[address] THEE MCGUIRE Facility:[facility] Start: 09-10-2022 End: 09-10-[address] THEE MCGUIRE Facility:[facility] Start: 05-13-2022 End: 05-14-[address] THEE MCGUIRE Facility:[facility] Start: 02-03-2022 End: 02-07-2022 Evaluation and management of inpatient PHYSICIAN UNKNOWN Facility:[facility] Start: 08-17-2018 End: 08-31-2018 Evaluation and management of inpatient PJ PUGA [facility] Start: 08-16-2018 End: 08-16-2018 Emergency department patient visit [facility] Start: 08-06-2018 End: 08-06-2018 Emergency department patient visit [facility] Start: 08-03-2018 End: 08-04-2018 [facility] Start: 06-15-2018 End: 06-16-2018 [facility] Start: 05-04-2018 End: 05-04-2018 Emergency department patient visit RUBEN RIOS [facility] Start: 03-30-2018 End: 03-31-2018 [facility] Start: 03-27-2018 End: 03-28-2018 [facility] Start: 03-12-2018 End: 03-15-2018 Patient encounter RUBEN RIOS [facility] Start: 10-14-2017 End: 10-15-2017 [facility] Start: 10-01-2017 End: 10-02-2017 Patient encounter CLARITZA YARBROUGH [facility] Procedures Date Procedure Procedure Detail Performing Clinician Start: 10-18-2023 CT of paranasal sinu s without contrast Start: 02-04-2022 Antibody screen PHYSICI AN UNKNOWN Comment on above: Performed By: #### 3 [id number] #### [address] Start: 08-31-2018 DISCHARGE PATIENT PJ PUGA Start: 08-19-2018 Microscopic urinalysis PJ PUGA Start: 08-19-2018 URINE RT REFLEX TO CULTURE PJ PUGA Start: 08-17-2018 DIETARY NUTRITION SUPPLEMENTS ANOOPMED EDD Start: 08-17-2018 PATIENT STATUS (FROM ED OR OR/PROCEDURAL) PJ MANCERAA Start: 08-17-2018 IP CONSULT TO INTAKE COUNSELOR AL MEDICINE PJ PUGA Start: 08-17-2018 DIET GENERAL PJ PARRQamar UA Start: 08-17-2018 IP CONSULT TO DIETITIAN PJ PARRJUA Start: 08-17-2018 IP CONSULT TO HISTOR Y AND PHYSICAL PJ MANCERAA Start: 08-17-2018 MISCELLANEOUS NURSIN G CARE ORDER (SPECIFY) PJ MANCERAA Start: 08-17-2018 OT EVAL AND TREAT PJ MANCERAA Start: 08-17-2018 PT EVAL AND TREAT PJ PUGA Start: 08-17-2018 FULL CODE PJ GRAHAM UA Start: 08-17-2018 MONITOR PJ GRAHAM UA Start: 08-16-2018 URINE DRUG SCREEN PATRI CK YARBROUGH Start: 08-16-2018 Urnls dip stick/tabl et reagent auto microscopy CLARITZA YARBROUGH Start: 08-16-2018 EKG 12-LEAD CLARITZA TDOD TERS Start: 08-16-2018 ACETAMINOPHEN LEVEL PAT SHAWANDA [...] CLARITZA YARBROUGH Start: 03-30-2018 H. PYLORI ANTIGEN TK YARBROUGH Start: 03-12-2018 Ct abdomen & pelvis w/contrast material CLARITZA YARBROUGH Start: 03-12-2018 Basic metabolic pane l calcium total CLAIRTZA YARBROUGH Start: 10-14-2017 Basic metabolic 2000 panel - Serum or Plasma CLARITZA YARBROUGH Start: 10-14-2017 CBC WITH AUTO DIFFERENTIAL CLARITZA YARBROUGH Start: 10-14-2017 TSH WITHOUT REFLEX HEIDYR YNES YARBROUGH Start: 10-01-2017 PSA, DIAGNOSTIC CLARITZA YARBROUGH Start: 07-22-2013 Exploration of scrotum Claritza YARBROUGH Comment on above: Right hemiscrotal ex ploration/excision of r hemiscrotal abscess cavity/drainiage Start: 07-08-2013 Right total orchidectomy Claritza YARBROUGH Start: 10-04-2010 Transurethral prostatectomy Claritza YARBROUGH Start: 07-03-2010 Cystoscopy Claritza MONIQUERegulo Start: 07-03-2010 Urodynamic studies Je YARBROUGH Start: 12-19-2008 Cystoscopy Claritza TODD CHON Start: 09-26-2003 Prostatotomy by styles surethral approach Claritza YARBROUGH Appendectomy Claritza YARBROUGH Cardiac catheterization Je YARBROUGH Colonoscopy Claritza YARBROUGH Education about post operative care after adenotonsillectomy Claritza YARBROUGH Hemorrhoidectomy Claritza HAMLET FUNK Insertion of inferio r vena caval filter Claritza YARBROUGH Operative procedure on foot Claritza YARBROUGH Procedure on wrist Claritza SCHMIDT Repair of inguinal hernia Juan YARBROUGH Plan of Treatment Date Care Activity Detail Author Start: 01-06-2025 End: 01-06-2025 Patient encounter procedure 01/06/2025 9:20 AM EDT Procedure Visit [facility] [address] [facility] [address] [place] [id number] Smith Munguia DPM [address] [address] [facility] Start: 10-14-2024 End: 10-14-2024 Patient encounter procedure 10/14/2024 9:20 AM EST Procedure Visit [facility] [address] [id number] Smith Munguia DPM [address] [address] Pain due to onychomycosis of toenails of both feet (Primary Dx); Xerosis cutis; Hav (hallux abducto valgus), left; Hav (hallux abducto valgus), right [facility] Comment on above: 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); Xerosis cutis; Hav (hallux abducto valgus), left; Hav (hallux abducto valgus), right Start: 06-27-2024 Influenza vaccination Influenza Vacc ine (#1) [facility] Start: 10-18-2023 Bacteria identified in Blood by Culture [facility] Start: 10-18-2023 Superficial Wound Culture Superficial Wound Culture [facility] Start: 06-27-2018 Pneumococcal Vaccine : 65+ Years (2 of 2 - PPSV23 or PCV20) Pneumococcal Vaccine: 65+ Years (2 of 2 - PPSV23 or PCV20) [facility] Bacteria identified in Unspecified specimen by Aerobe culture [facility] Patient Education Cellulitis (Sk in Infection), Adult (DC) [facility] Work Phone: Patient referral [facility] Work Phone: Immunizations Immunization Date Immunization Notes Care Provider Fa cility 08-06-2022 influenza virus vacc ine, unspecified formulation Smith Munguia DPM Work Phone: [facility] Payers Date Payer Category Payer Unknown 2023 Medicare [id number] 2023 Self-pay 2023 Unknown [id number] 2015 Medicare [id number] 2012 Private Health Insurance [employer] [place] m[place] [id number] 2012 Unknown [id number] 1997 [place] [address] [id number] 1959 Medicare [id number] 1959 Private Health Insurance [id number] 1946 Unknown [id number] 2.16.840.1.218529.3.579.2 .173 1946 Unknown [id number] 2.16.840.1.264368.3.579.2 .173 1946 Unknown [id number] 2.16.840.1.906704.3.579.2 .173 1946 Unknown [id number] 2.16.840.1.836004.3.579.2 .173 1946 Unknown [id number] 2.16.840.1.968773.3.579.2 .173 1946 Unknown [id number] 2.16.840.1.286544.3.579.2 .173 1946 Unknown [id number] 2.16.840.1.950126.3.579.2 .173 1946 Unknown [id number] 2.16.840.1.936692.3.579.2 .173 1946 Unknown [id number] 2.16.840.1.722987.3.579.2 .173 1946 Unknown [id number] 2.16.840.1.566794.3.579.2 .173 1946 Unknown [id number] 2.16.840.1.767719.3.579.2 .173 1946 Unknown [id number] 2.16.840.1.077528.3.579.2 .176 1946 Unknown [id number] 2.16.840.1.988611.3.579.2 .647 1946 Unknown [id number] 2.16.840.1.969647.3.579.2 .593 1946 Unknown [id number] 2.16.840.1.055686.3.579.2 .593 1946 Unknown [id number] 2.16.840.1.411684.3.579.2 .593 1946 Unknown [id number] 2.16.840.1.062177.3.579.2 .593 1946 Unknown [id number] 2.16.840.1.929620.3.579.2 .1259 1946 Unknown [id number] 2.16.840.1.895295.3.579.2 .1259 1946 Unknown [id number] 2.16.840.1.393486.3.579.2 .1259 1946 Unknown [id number] 2.16.840.1.035809.3.579.2 .1259 1946 Unknown [id number] 2.16.840.1.132168.3.579.2 .727 1946 Unknown [id number] 2.16.840.1.505345.3.579.2 .727 1946 Unknown [id number] 2.16.840.1.365078.3.579.2 .727 1946 Unknown [id number] 2.16.840.1.431725.3.579.2 .727 1946 Unknown [id number] 2.16.840.1.058570.3.579.2 .727 1946 Unknown [id number] 2.16.840.1.342498.3.579.2 .727 1946 Unknown [id number] 2.16.840.1.763828.3.579.2 .72 Unknown Strawn BC/BS [id number] Unknown HCAP/HFA/FAP Active M [id number] Unknown [id number] 2.16.840.1.461980.3.579.2 .531 Social History Date Type Detail Facility Start: 10-18-2023 End: 08-12-2024 Tobacco smoking status NHIS Never smoked tobacco (finding) [facility] Start: 1945 Sex Assigned At Male [facility] Start: 06-10-2024 Sex Assigned At F [facility] Tobacco smoking status Never [facility] Start: 11-20-2023 Tobacco use and exposure Smokeless tobacco non-user [facility] Start: 06-10-2024 End: 10-14-2024 Alcoholic beverage intake Defer [facility] Start: 06-10-2024 History of Social function [facility] Start: 1945 Sex assigned at Not on file [facility] Functional Status Date Assessment Result Facility 11-09-2024 Functional Status N/A [facility] 08-12-2024 Functional Status N/A [facility] Clinical Notes 02-07-2022 to 11-09-2024 Smith Munguia, LUIS - 10/14/2024 9:20 AM EST Note Date & Type Note Facility 11-09-2024 Hospital Discharge instructions Patient Education 11/09/2024 11:17:58 [facility] - Cystoscopy Discharge Instructions (CUSTOM) Cystoscopy Voiding after the procedure: there may be some pain, burning, urgency, frequency and blood tinged urine following the procedure. These symptoms usually resolve within 2-5 days. Drink the amount of fluid it takes to keep the urine pink to yellow or clear in color. Drinking enough water and fluids will help to ease any discomfort after your procedure. If you are having problems that seem out of the ordinary, please call. If unable to contact your physician and you feel it is an emergency, go to the nearest emergency room or call 911 Diet you may resume your normal diet. Activity you may resume your normal activities Call if you have a fever over 100 degrees. Follow Up Care 09/13/2024 15:33:51 With:Claritza YARBROUGH Address: [address] [place] [address] [place] [address] Business (1) When:03/09/2025 11:16:19 Comments:With a PA or nurse practitioner [facility] 11-09-2024 Note Patient Education Custom Cystoscopy ??? Voiding after the procedure: there may be some pain, burning, urgency, frequency and blood tinged urine following the procedure. These symptoms usually resolve within 2-5 days. Drink the amount of fluid it takes to keep the urine pink to yellow or clear in color. Drinking enough water and fluids will help to ease any discomfort after your procedure. ??? If you are having problems that seem out of the ordinary, please call. ??? If unable to contact your physician and you feel it is an emergency, go to the nearest emergency room or call 911 ??? Diet ??? you may resume your normal diet. ??? Activity ??? you may resume your normal activities ??? Call if you have a fever over [address] [facility] 10-14-2024 History of Present illness Narrative Patient: Niels Mccullough Jr. : 1945 PCP: Thee Mcguire MD SUBJECTIVE Patient presents today with a CC of elongated, thick nails. Pt states nails have been elongated and thick for many years and cause pain with ambulation in shoegear. Pt has tried previous treatment with minimal relief. Pt presents today for nail care and treatment. Pt has hx of xerosis and hav b/l . Allergies: Allergies Allergen Reactions Codeine Unknown Erythromycin Unknown Indomethacin Unknown Metoclopramide Unknown Minocycline Unknown Penicillin G Unknown Sulfamethoxazole-Trimethoprim Unknown Tetracycline Unknown Aspirin Rash Cephalexin Rash Past Medical History: Past Medical History: Diagnosis Date BPH (benign prostatic hyperplasia) Chronic constipation CKD (chronic kidney disease) Depression with anxiety Diverticulitis ED (erectile dysfunction) Hemorrhoids Hiatal hernia HTN (hypertension) (CMS/HCC) Hypothyroid (CMS/HCC) IBS (irritable bowel syndrome) Osteoarthritis Peptic ulcer disease Medications: Current Outpatient Medications: baclofen (Lioresal) 10 MG tablet, Take 10 mg by mouth at bedtime, Disp: , Rfl: carvedilol (Coreg) 6.25 MG tablet, Take 6.25 mg by mouth in the morning., Disp: , Rfl: Constulose 10 GM/15ML solution, TAKE 15 MLS THREE TO FOUR TIMES A DAY, Disp: , Rfl: DULoxetine (Cymbalta) [address] capsule, Take 60 mg by mouth in the morning., Disp: , Rfl: dutasteride (Avodart) 0.5 MG capsule, Take 0.5 mg by mouth in the morning., Disp: , Rfl: furosemide (Lasix) 40 MG tablet, Take 40 mg by mouth in the morning., Disp: , Rfl: hydrALAZINE (Apresoline) 100 MG tablet, take 1 tablet by mouth twice a day (HOLD IF BP IS LESS THAN 110), Disp: , Rfl: liothyronine (Cytomel) 5 MCG tablet, TAKE 4 TABLETS BY MOUTH MON,WED,AND,FRI, SUN AND 3 TABLETS ,,SAT, Disp: , Rfl: magnesium oxide (Mag-Ox) 400 (240 Mg) MG tablet, Take 400 mg by mouth in the morning., Disp: , Rfl: montelukast (Singulair) 10 MG tablet, Take 10 mg by mouth in the morning., Disp: , Rfl: pantoprazole (ProtoNix) 40 MG EC tablet, Take 40 mg by mouth in the morning., Disp: , Rfl: polyethylene glycol, PEG, 3350 (MiraLax) 17 g packet, 1 (one) time each day at the same time, Disp: , Rfl: Social History: Social History Socioeconomic History Marital status: Spouse name: Not on file Number of children: Not on file Years of education: Not on file Highest education level: Not on file Occupational History Not on file Tobacco Use Smoking status: Never Smokeless tobacco: Never Vaping Use Vaping status: Unknown Substance and Sexual Activity Alcohol use: Defer Drug use: Defer Sexual activity: Defer Other Topics Concern Not on file Social History Narrative Not on file Social Drivers of Health Financial Resource Strain: Not on file Food Insecurity: Not on file Transportation Needs: Not on file Physical Activity: Not on file Stress: Not on file Social Connections: Not on file Intimate Partner Violence: Not on file Housing Stability: Not on file ROS: Gastrointestinal: denies abdominal pain, ulcers, or changes in appetite or bowel habits OBJECTIVE LE EXAM: DERM: Elongated thick yellow crumbly nails digits 1 through 10. Negative hair growth b/l feet. . Negative Dry and scaly skin noted to bilateral feet with small fissures to heels with negative drainage or erythema PIPJ rubor bilateral 2nd digits with notable dorsal medial eminence rubor bilateral 1st metatarsal VASC: Positive palpable pedal pulses bilaterally NEURO: Gross sensation intact to bilateral feet ORTHO: Positive pain on palpation to nails 1 through 10 HAV deformity bilaterally Flexion deformities bilateral 2nd digits ASSESSMENT 1. Pain due to onychomycosis of toenails of both feet 2. Xerosis cutis 3. Hav (hallux abducto valgus), left 4. Hav (hallux abducto valgus), right PLAN Discussed proper foot care with patient today. Debride nails in length and thickness digits 1 through 10 Patient education on condition and treatment of condition. Patient encouraged to use creams daily and offered prescription and patient continue with home health applying weekly Smith Munguia DPM documented in this encounter [facility] 09-13-2024 Note Urology Office/Clini c Note Chief [...] not urinate, so he went to ER, [facility], they cathed him and filled a urinal. 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 Pt has augustin today from [facility] ER on 08/03/24. Previous Dr[address] Yarbrough [...] PCP for urinary retention. Pt went to [facility] ER on 08/03 for inability to [...] up and would like to go to [facility] without the large augustin bag. Advised pt [...] E&M of New Patient Moderate 45-59 Min 13601 2. Constipation (K59.00: Constipation, unspecified) 08/03/24 CT abd/pelvis w/o con - large amount of stool within the colon -See #1 Ordered: E&M of New Patient Moderate 45-59 Min 90318 3. BPH with urinary obstruction (N40.1: Benign [...] E&M of New Patient Moderate 45-59 Min 76519 4. Kidney stone (N20.0: Calculus of kidney) 08/03/24 CT abd/pelvis w/o con - 3.1mm nonobstructive L renal calculus Ordered: E&M of New Patient Moderate 45-59 Min 80678 5. Renal cyst (N28.1: Cyst of kidney, acquired) 08/03/24 CT abd/pelvis w/o con - stable 4.8mm Bosniak 2 R renal cyst -BRIDGER in 6-12 months for surveillance Ordered: E&M of (more content not included)... [facility] Comment on above: Result Comment: Elec tronically [...] including vitamins, herbs, eye drops, creams, and jnzm-ceu-txmxoam medicines. ?Whether you are or may be [...] provider. Document Revised: 06/26/2022 Document Reviewed: 05/18/2021 [employer] Patient Education 2023 [employer]. 09/10/2024 10:34:17 Cystoscopy Cystoscopy Cystoscopy is a [...] including vitamins, herbs, eye drops, creams, and qeqi-qkc-fllgxmp medicines. Any problems you or family members [...] provider tells you to take them. Taking mxih-slf-chenzta medicines, vitamins, herbs, and supplements. Tests You [...] Follow these instructions at home: Medicines Take ygtd-jwx-kdnqfzz and prescription medicines only as told by [...] provider. Document Revised: 06/26/2022 Document Reviewed: 05/25/2021 [employer] Patient Education 2023 [employer]. [facility] 09-10-2024 Note Patient Education Procedures Urodynamic Testing [...] including vitamins, herbs, eye drops, creams, and xdfe-aqv-xlxvtnn medicines. ? Whether you are or may [...] health care provide (more content not included)... [facility] 08-12-2024 Hospital Discharge instructions Patient Education 08/12/2024 [...] urethra. Follow these instructions at home: Take warj-zpz-olgludp and prescription medicines only as told by [...] provider. Document Revised: 05/01/2022 Document Reviewed: 05/01/2022 [employer] Patient Education 2023 [employer]. Follow Up Care 08/09/2024 13:41:59 With:LINNEA PICKARD, Claritza Cee, URL Address: [address] [place], [place] [id number]- When: Unknown Comments:pending fill/pull [facility] 08-12-2024 Note Patient Education Urology Benign Prostatic [...] Follow these instructions at home: ? Take noty-rjd-ontzjgm and prescription medicines only as told by [...] develop side effec (more content not included)... [facility] 10-18-2023 Evaluation note Encounter Date Diagnosis Assessment Notes Sep, Facial swelling (ICD-10 - R22.0) Patient is referred to the emergency room due to failed outpatient therapy of 2 different antibiotics, worsening swelling of his face. [employer] Other 04-14-2022 NoteMR#: [id number] I [facility] Pt. Name: Niels Mccullough Jr Admitted: 02/03/2022 [...] who presented to the emergency department at [facility] as a transfer from an outside hospital [...] [facility] 07, 2022. Plan of [...] Yost MD Date Trans: 02/07/2022 12:59 P/mmo [id number] cc: Thee Mcguire D.O. [address] [place] [address] [address] [place] [address] Future Appointments Appointment Date:09/02/2024 08:30:00 AM Scheduled Provider: Location:[facility] Appointment Type:URO Nurse Visit [facility] evaluation + Plan note Future Appointments Appointment Date:09/10/2024 09:30:00 AM Scheduled Provider: Location:[facility] Appointment Type:URO Nurse Visit [facility] evaluation + Plan note Future Appointments Appointment Date:03/11/2025 11:20:00 AM Scheduled Provider:ADRY TYLER PA-C Location:[facility] Appointment Type:URO Office Visit [facility] Evaluation noteNo assessment information available [facility] Work Phone: Evaluation note* Diagnosis Pain due to onychomycosis of toenails of both feet- Primary Xerosis cutis Other specified disease of sebaceous glands Hav (hallux abducto valgus), left Hav (hallux abducto valgus), right documented in this encounter [facility] Narrative - Reported* Type Description Date [...] Hospitalization History ADMITTED FOR LOW SODIUM 2016 [employer] Other Hospital course Narrative No data available for this section [facility] Hospital Discharge instructions No data available for this section [facility] progress note No data available for this section [facility] Local Labs Summary Purpose Family History No Family History Records FoundNo Family History Records FoundNo Family History Records FoundNo Family History Records FoundNo Family History Records Found No data available for this section No data available for this section No data available for this section No data available for this section No Family History Records Found No data available [...] section and content) DATE CREATED AUTHOR [facility] DATE CREATED AUTHOR AUTHOR'S ORGANIZ ATION 10/03/2018 [facility] DATE CREATED AUTHOR AUTHOR'S ORGANIZ ATION 04/10/[address] [facility] DATE CREATED AUTHOR AUTHOR'S ORGANIZ ATION 03/11/2023 [facility] DATE CREATED AUTHOR AUTHOR'S ORGANIZ ATION 12/05/2023 [facility] DATE CREATED AUTHOR AUTHOR'S ORGANIZ ATION 10/17/2024 [facility] DATE CREATED AUTHOR AUTHOR'S ORGANIZ ATION 11/16/2024 [facility] Teams (unrecognized sec tion and content) Team Status: Active Member Role Status Dates NON STAFF Primary Care Provider Active Team Status: Inactive Member Role Status Dates NON STAFF Primary Care Provider Active Michael Amador APRN Emergency Provider Active Data Center Technician Relationship Specialty Start Date End Date Thee Mcguire MD [address] [place] [id number] PCP - General Internal Medicine 11/20/23 Data Center Technician Relationship Specialty Start Date End Date Thee Mcguire MD [facility] [place], [place] [id number] PCP - General Internal Medicine 11/20/23 Goals (unrecognized section and content) Goals may be documented in a n alternate sectionNo Information No data available for this section No data available for this section No data available for this section No data available for this section No data available for this section REASON FOR VISIT (unrecogniz ed section and content) Reason Comments Toenail Care FOR RECORDS PERTAINING TO PATIENTS WHO ARE [...] BE BASED ON THE PRIMARY CLINICAL RECORDS. [employer] provides no warranty or guarantee of the accuracy or completeness of information in this document.
[2024-12-25 10:40] VITALS: PULSE 70; O2SAT 98
[2024-12-25 10:49] VITALS: PULSE 73
[2024-12-25 10:57] VITALS: O2SAT 97
[2024-12-25 11:00] VITALS: PULSE 77; O2SAT 98
[2024-12-25 11:02] VITALS: BP 183/73; PULSE 76; O2SAT 97
--- NOTE | 2024-12-25 11:14 | ECG_ITS ---
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
--- NOTE | 2024-12-25 11:14 | XR_ITS ---
The [address] [address] Patient Name: ALBIN VILLALTA MRN: [id number] date: 1945 Sex: M Assigned Patient Location: ER Current Patient Location: ER Accession/Order Number: [id number] Exam Date: 12/25/2024 12:31 Report Date: 12/25/2024 12:33 At the request of: MILLICENT MOORE Procedure: XR chest 1V XR chest 1V 12/25/2024 11:59 AM SIGNS AND SYMPTOMS: ^chest pain PROTOCOL: Frontal radiograph of the chest COMPARISON: 09/28/2024 FINDINGS: The trachea is midline. The heart and mediastinal structures are within normal limits. Chronic interstitial changes are noted. There is a pleural-based area of consolidation in the left lower chest which is new compared to the prior exam. This is of uncertain etiology but may be infectious in nature. The bony thorax is intact. XR/XR chest 1V IMPRESSION: There is a pleural-based area of consolidation in the left lower chest which is new compared to the prior exam. This is of uncertain etiology but may be infectious in nature. Chronic interstitial changes are noted. Impression dictated by: Jacob Nieto M.D.12/25/2024 12:33 PM [facility]ictation [facility] Electronically authenticated by: [id number] Y Date: 12/25/2024 12:33
[2024-12-25 11:21] LABS: Basophils Percent Auto 0.3 % (0.2-2.0); Eosinophils Absolute Auto 0.3 10^3/uL (0.0-0.7); Eosinophils Percent Auto 4.9 % (0.9-7.0); Hematocrit 30.1 % (42.0-54.0); Hemoglobin 9.8 g/dL (14.0-18.0); Immature Granulocytes Abs Auto 0.03 10^3/uL (0.00-0.03); Immature Granulocytes Pct Auto 0.4 % (0.0-0.5); Lymphocytes Percent Auto 13.7 % (20.5-60.0); Mean Corpuscular HGB Conc 32.6 g/dL (29.9-35.2); Mean Corpuscular Hemoglobin 30.2 pg (25.9-34.0); Mean Corpuscular Volume 92.6 fL (80.0-94.0); Mean Platelet Volume 10.1 fL (9.5-13.5); Monocytes Absolute Auto 0.5 10^3/uL (0.3-0.8); Monocytes Percent Auto 7.7 % (1.7-12.0); Neutrophils Absolute Auto 5.1 10^3/uL (1.4-6.5); Platelet Count 189 10^3/uL (150-450); Red Blood Count 3.25 10^6/uL (4.70-6.10); Red Cell Distribution Width 15.3 % (11.0-15.0)
[2024-12-25 11:40] LABS: Anion Gap 12.5; BUN Creatinine Ratio 12.9; Calcium 8.7 mg/dL (8.5-10.1); Chloride 104 mmol/L (98-107); Estimated GFR (African America 37 (>=60 mL/min/1.73m^2); Estimated GFR (Non-African Ame 31 (>=60 mL/min/1.73m^2); Glucose 108 mg/dL (74-106); Potassium 3.5 mmol/L (3.5-5.1); Sodium 138 mmol/L (136-145); Troponin I High Sensitivity 15.3 pg/mL (4.0-76.1)
[2024-12-25 12:29] LABS: Troponin I High Sensitivity 15.6 pg/mL (4.0-76.1)
--- NOTE | 2024-12-25 13:09 | ED.CHESTPAI1 ---
HPI - Chest Pain General Chief Complaint: Chest Pain Stated Complaint: CHEST PAIN Time Seen by Provider: 12/25/24 10:32 Source: patient Mode of arrival: walk-in Limitations: no limitations History of Present Illness HPI narrative: cc = chest pain Last night the patient developed anterior left-sided chest pain. He says it is worse with certain movements and coughing. Sometimes when he takes a deep breath he feels some of the pain, but not every time. The pain has been coming and going and by the time he arrived to the emergency department had subsided. He initially denied any recent illness, recent injury, or other etiology that might of caused the pain. But on talking with him further he noted that he had a cough that started a day or 2 ago. It is nonproductive and mild. He does have a history, in the past, of CHF exacerbations, but denies any lower extremity swelling, increased shortness of breath or exertional dyspnea. Related Data Home Medications ?Medication ?Instructions ?Recorded ?Confirmed carvedilol 6.25 mg tablet 6.25 mg PO DAILY 06/02/23 12/25/24 duloxetine 60 mg capsule,delayed 60 mg PO QAM 06/02/23 12/25/24 release dutasteride 0.5 mg capsule 0.5 mg PO DAILY 06/02/23 12/25/24 liothyronine 5 mcg tablet 5 mcg PO DAILY 06/02/23 12/25/24 magnesium oxide 400 mg (241.3 mg 400 mg PO DAILY 06/02/23 12/25/24 magnesium) tablet montelukast 10 mg tablet 10 mg PO DAILY 06/02/23 12/25/24 pantoprazole 20 mg tablet,delayed 20 mg PO DAILY 06/02/23 12/25/24 release rosuvastatin 5 mg tablet 5 mg PO DAILY 06/02/23 12/25/24 tamsulosin 0.4 mg capsule 0.4 mg PO BID 06/02/23 12/25/24 furosemide 40 mg tablet 40 mg PO DAILY 11/28/23 12/25/24 trazodone 50 mg tablet 50 mg PO BEDTIME 03/21/24 12/25/24 hydralazine 100 mg tablet 100 mg PO BID 12/25/24 12/25/24 Previous Rx's ?Medication ?Instructions ?Recorded hydroxyzine HCl 25 mg tablet 25 mg PO TID PRN itching #20 tabs 05/25/23 azithromycin 250 mg tablet See Rx Instructions PO .COMPLEX #6 12/25/24 tabs Allergies Allergy/AdvReac Type Severity Reaction Status Date / Time aspirin Allergy Unknown Unknown Verified 12/06/24 12:59 cephalexin (From Keflex) Allergy Unknown Unknown Verified 12/06/24 12:59 codeine Allergy Unknown Unknown Verified 12/06/24 12:59 indomethacin (From Indocin) Allergy Unknown Unknown Verified 12/06/24 12:59 metoclopramide (From Reglan) Allergy Unknown Unknown Verified 12/06/24 12:59 minocycline Allergy Unknown Unknown Verified 12/06/24 12:59 Penicillins Allergy Unknown Unknown Verified 12/06/24 12:59 Sulfa (Sulfonamide Allergy Unknown Unknown Verified 12/06/24 12:59 Antibiotics) tetracycline Allergy Unknown Unknown Verified 12/06/24 12:59 erytromycin ethylsuccinate Allergy Unknown Unknown Uncoded 12/06/24 12:59 PFSH PFSH Social History Smoking status: Never smoker Little interest or pleasure in doing things: not at all Feeling down, depressed, or hopeless: not at all Exam Narrative Exam Narrative: Nurses notes and vital signs reviewed and patient is not hypoxic. afebrile General: Well-appearing and in no apparent distress. Skin: Warm, dry, no pallor noted. No rash. Head: Normocephalic, atraumatic. Eye: Pupils are equal, round and EOMI. No scleral icterus. Ears, Nose, Mouth, and Throat: Oral mucosa is moist Cardiovascular: Regular Rate and Rhythm without murmur, gallop or rub. Respiratory: No accessory muscle use or respiratory distress. Lungs are clear to auscultation, no wheezing, rales or rhonchi Chest Wall: Palpation of the left chest reproduces some of the tenderness/pain that the patient experienced Musculoskeletal: normal ROM, no calf or popliteal tenderness, no lower extremity edema/swelling GI: Abdomen is soft, non-distended. Normal bowel sounds. No tenderness to palpation. No rebound, guarding, or rigidity noted. Neurological: A&O x4. No cranial nerve dysfunction observed. No truncal ataxia. Moves all extremities. Sensation intact. Psychiatric: Cooperative and interactive. Normal mood and affect. Constitutional Vital Signs, click to edit/add: Last Vital Signs Temp 98.7 F 12/25/24 10:38 Pulse 76 12/25/24 11:02 Resp 18 12/25/24 11:02 BP 183/73 H 12/25/24 11:02 Pulse Ox 97 12/25/24 11:02 O2 Del Method Room Air 12/25/24 10:57 Course Vital Signs Vital signs: Vital Signs Temperature 98.7 F 12/25/24 10:38 Pulse Rate 72 12/25/24 10:38 Respiratory Rate 18 12/25/24 10:38 Blood Pressure 185/74 H 12/25/24 10:38 Pulse Oximetry 98 12/25/24 10:38 Oxygen Delivery Method Room Air 12/25/24 10:38 Temperature 98.7 F 12/25/24 10:38 Pulse Rate 76 12/25/24 11:02 Respiratory Rate 18 12/25/24 11:02 Blood Pressure 183/73 H 12/25/24 11:02 Pulse Oximetry 97 12/25/24 11:02 Oxygen Delivery Method Room Air 12/25/24 10:57 MDM - Chest Pain MDM Narrative Medical decision making narrative: Patient was placed on outside physical damage appraiser and EKG obtained. Blood drawn and sent for evaluation. Portable chest x-ray obtained. EKG, troponin x 2, BNP do not suggest acute cardiac etiology. Chest x-ray reveals some consolidation left lower chest which appears new compared to prior exam on September 2024. This may be infectious in nature. With the patient's description of recent cough, I will go ahead and treated for this with an antibiotic Lab Data Attestation: I reviewed the patient's lab results. Labs: Lab Results 12/25/24 12/25/24 Range/Units 10:45 12:06 WBC 7.0 (4.0-11.0) 10^3/uL RBC 3.25 L (4.70-6.10) 10^6/uL Hgb 9.8 L (14.0-18.0) g/dL Hct 30.1 L (42.0-54.0) % MCV 92.6 (80.0-94.0) fL MCH 30.2 (25.9-34.0) pg MCHC 32.6 (29.9-35.2) g/dL RDW 15.3 H (11.0-15.0) % Plt Count 189 (150-450) 10^3/uL MPV 10.1 (9.5-13.5) fL Neut % (Auto) 73.0 (43.0-75.0) % Lymph % (Auto) 13.7 L (20.5-60.0) % Newberry % (Auto) 7.7 (1.7-12.0) % Eos % (Auto) 4.9 (0.9-7.0) % Baso % (Auto) 0.3 (0.2-2.0) % Neut # (Auto) 5.1 (1.4-6.5) 10^3/uL Lymph # (Auto) 1.0 L (1.2-3.8) 10^3/uL Newberry # (Auto) 0.5 (0.3-0.8) 10^3/uL Eos # (Auto) 0.3 (0.0-0.7) 10^3/uL Baso # (Auto) 0.0 (0.0-0.1) 10^3/uL Abs Immat Gran (auto) 0.03 (0.00-0.03) 10^3/uL Imm/Tot Granulo (auto) 0.4 (0.0-0.5) % Sodium 138 (136-145) mmol/L Potassium 3.5 (3.5-5.1) mmol/L Chloride 104 (98-107) mmol/L Carbon Dioxide 25.0 (21.0-32.0) mmol/L Anion Gap 12.5 BUN 27.0 H (7.0-18.0) mg/dL Creatinine 2.09 H (0.70-1.30) mg/dL Est GFR ( Amer) 37 L (>=60 mL/min/1.73m^2) Est GFR (Non-Af Amer) 31 L (>=60 mL/min/1.73m^2) BUN/Creatinine Ratio 12.9 Glucose 108 H (74-106) mg/dL Calcium 8.7 (8.5-10.1) mg/dL Troponin I High Sens 15.3 15.6 (4.0-76.1) pg/mL NT-Pro-B Natriuret Pep 1526.0 (<=1800.0) pg/mL Imaging Data Chest x-ray: Radiologist's impression: ITS Impressions Chest X-Ray 12/25/24 11:14 IMPRESSION: There is a pleural-based area of consolidation in the left lower chest which is new compared to the prior exam. This is of uncertain etiology but may be infectious in nature. Chronic interstitial changes are noted. Impression dictated by: Jacob Nieto M.D.12/25/2024 12:33 PM Dictation Location: [place] [address] Electronically authenticated by: [id number] Y Date: 12/25/2024 12:33 Heart Score History: Slightly/Non-Suspicious ECG: Normal Age: >65 years Risk Factors: 1 or 2 Risk Factors Troponin: <Normal Limit Total Heart Score Recommendations & Risks:: 3 Discharge Plan Discharge Chief Complaint: Chest Pain Clinical Impression: Pleurisy Patient Disposition: Home, Self-Care Time of Disposition Decision: 13:14 Prescriptions / Home Meds: New azithromycin 250 mg tablet See Rx Instructions .ROUTE .COMPLEX Qty: 6 0RF Rx Instructions: For 250 mg dose pack: take 500 mg today (day 1), then 250 mg for 4 days (days 2-5) No Action trazodone 50 mg tablet 50 mg PO BEDTIME hydroxyzine HCl 25 mg tablet 25 mg PO TID PRN (Reason: itching) Qty: 20 0RF carvedilol 6.25 mg tablet 6.25 mg PO DAILY duloxetine 60 mg capsule,delayed release(DR/EC) 60 mg PO QAM dutasteride 0.5 mg capsule 0.5 mg PO DAILY liothyronine 5 mcg tablet 5 mcg PO DAILY magnesium oxide 400 mg (241.3 mg magnesium) tablet 400 mg PO DAILY montelukast 10 mg tablet 10 mg PO DAILY pantoprazole 20 mg tablet,delayed release (DR/EC) 20 mg PO DAILY rosuvastatin 5 mg tablet 5 mg PO DAILY tamsulosin 0.4 mg capsule 0.4 mg PO BID furosemide 40 mg tablet 40 mg PO DAILY hydralazine 100 mg tablet 100 mg PO BID Print Language: Serbian Instructions: Pleurisy (ED) Referrals: TAHIR MCGUIRE DO [Primary Care Provider] - 1 week
== END 2024-12-25 13:36 | disposition home or self-care (01) ==
PROVIDERS: Emergency Provider Emergency Medicine; PCP Internal Medicine
DX: R09.1 Pleurisy (principal); I50.9 Heart failure, unspecified
CPT/HCPCS: 36415; 71045; 80048; 83880; 84484; 85025; 93005; 99285

== ENCOUNTER 2025-09-11 18:43 | Emergency (ER) | payer MEDICARE, SELFPAY ==
--- OUTSIDE RECORDS SUMMARY | 2025-09-01 13:40 | XMS_ITS | Encounter Summary ---
Author Organization [facility] Address [address] [place] [address] Care Team Providers Care Book Jogger Name Role Phone Thee Burdick MD Primary Care Provider + [phone] Reason for Visit * ReasonCommentsHeel Pain Encounter Details DateTypeDepartmentCare Team (Latest Contact Info)Wjullupmdlw95/06/2025 1:40 PM ESTOffice Visit [facility] [address] [facility] [address] [place] [address] Smith Collier, DPLane [address] [facility] [address] [place] [address] Xerosis cutis (Primary Dx); Hav (hallux abducto valgus), left; Hav (hallux abducto valgus), right; Plantar fasciitis; Heel spur, right Social History Tobacco UseTypesPacks/DayYears UsedDateSmoking Tobacco: NeverSmokeless Tobacco: Never Tobacco Cessation:Counseling Given: Yes Alcohol UseStandard Drinks/WeekCommentsDefer0 (1 standard drink = 0.6 oz pure alcohol)Sex and Gender InformationValueDate RecordedSex Assigned at BirthNot on fileLegal LilZgwc0501/08/2023 6:51 PM EDTGender IdentityNot on fileSexual OrientationNot on filedocumented as of this encounter Last Filed Vital Signs Vital SignReadingTime TakenCommentsBlood Pressure--Pulse--Temperature-- Respiratory Iptr204811/01/2024 12:55 PM ESTOxygen Saturation--Inhaled Oxygen Concentration--Xltftf67.7 kg (200 lb)09/01/2025 12:55 PM WEAFxcviy142.4 cm (6' 1 )09/01/2025 12:55 PM ESTBody Mass Index26.39111/01/2024 12:55 PM ESTdocumented in this encounter Progress Notes * Smith Collier, DPM - 09/01/2025 1:40 PM EST Patient: Niels Mccullough : 1945 PCP: Thee Burdick MD SUBJECTIVE This is a 79-year-old male who presents today with a chief complaint of right heel pain for the past 4 weeks. States pain up to 7 out 10 as denies any treatment states pain with 1st steps in the morning Pt has hx of xerosis and hav [...] (erectile dysfunction) Hemorrhoids Hiatal hernia HTN (hypertension) Hypothyroid IBS (irritable bowel syndrome) Osteoarthritis Peptic ulcer [...] a day (HOLD IF BP IS LESS [id number]), Disp: , Rfl: liothyronine (Cytomel) 5 MCG tablet, TAKE 4 TABLETS BY MOUTH MON,WED,AND,FRI, SUN AND 3 TABLETS MOR JONES,SAT, Disp: , Rfl: magnesium oxide (Mag-Ox) 400 [...] time each day at the same time, Disp:, Rfl: Social History: Social History Socioeconomic History [...] 10. Negative hair growth b/l feet. . positive Dry and scaly skin noted to bilateral feet with small fissures to heels with negative drainage or erythema PIPJ rubor bilateral 2nd digits with notable dorsal medial eminence rubor bilateral 1st metatarsal VASC: Positive palpable pedal pulses bilaterally NEURO: Gross sensation intact to bilateral feet ORTHO: Positive pain on palpation to toenails of the left 1,2,3,4,5 toes and right 1,2,3,4,5 toes HAV deformity bilaterally Flexion deformities bilateral 2nd digits Positive pain on palpation to the right medial calcaneal tubercle Ultrasound DIAGNOSTIC US REPORT - verbal order for ultrasound today The plantar arch and heel of the right foot were scanned today using a 12MHz linear probe in the transverse and sagittal planes, concerning the plantar fascia. Images were obtained. FINDINGS - US exam demonstrates hypo-echoic thickening of plantar fascia with its origin at the medial plantartuberosity of the calcaneus. Small calcaneal enthesophyte to right plantar calcaneus The area of thickening and inflammation is greater than 4mm (norm = 4 mm). IMPRESSION - Right heel plantar fasciitis with heel spur ASSESSMENT 1. Xerosis cutis 2. Hav (hallux abducto valgus), left 3. Hav (hallux abducto valgus), right 4. Plantar fasciitis 5. Heel spur, right PLAN Patient encouraged to use creams daily and patient continue with home health applying weekly Reviewed ultrasound today with patient Patient to continue with oral anti - inflammatories as needed for pain and recommended OTC medications such as tylenol or Ibuprofen Pt given steroid injection to right medial calcaneal tubercle under US guidance with visualization of injected fluid into area of concern per imaging. Injection of 1cc kenalog 10 and 2cc xylocaine 2% plain. Informed patient of risks and benefits of injection including non resolution of symptoms,steroid flare, tendon damage or rupture. Pt consents to proceed. This is the patients 1st injection Smith Collier DPM documented in this encounter Plan of Treatment DateTypeDepartmentCare Team (Latest Contact Info)Esxcjnrrdks14/20/2025 11:00 AM ESTOffice Visit [facility] [address] [phone] Smith Collier DPM [address] [address] 10/13/2025 9:30 AM ESTProcedure Visit [facility] [address] [phone] Smith Collier DPM [address] [address] documented as of this encounter Visit Diagnoses Diagnosis Xerosis cutis- Primary Other specified disease of sebaceous glands Hav (hallux abducto valgus), left Hav (hallux abducto valgus), right Plantar fasciitis Plantar fascial fibromatosis Heel spur, right Xerosis cutis- Primary Other specified disease of sebaceous glands Hav (hallux abducto valgus), left Hav (hallux abducto valgus), right Plantar fasciitis Plantar fascial fibromatosis documented in this encounter Care Teams Team MemberRelationshipSpecialtyStart DateEnd Date Thee Burdick MD [address] [place] [address] PCP - GeneralInternal Medicine11/20/23documented as of this encounter
[2025-09-11 18:46] VITALS: BP 180/92; PULSE 61; TEMP 36.8; O2SAT 98; BMI 25.8
--- NOTE | 2025-09-11 18:58 | XR_ITS ---
The [address] [address] Patient Name: ALBIN VILLALTA MRN: [id number] date: 1945 Sex: M Assigned Patient Location: ED.MAIN Current Patient Location: Accession/Order Number: [id number] Exam Date: 09/11/2025 19:00 Report Date: 09/12/2025 08:03 At the request of: MILLICENT MOORE Procedure: XR chest 1V PORTABLE AP ERECT CHEST 1857 hours CLINICAL HISTORY: Right-sided chest pain and shortness of breath COMPARISON: 12/25/2024 The cardiac and mediastinal silhouettes are similar. There are continued interstitial changes as well as atelectasis and/or scarring. No new focal consolidation is seen. There is no sizable effusion or pneumothorax. The osseous structures are intact. XR/XR chest 1V IMPRESSION: SIMILAR CHRONIC APPEARING CHANGES. NO DEFINITE ACUTE FINDINGS Impression dictated by: Rachel Briseno M.D. 09/12/2025 8:03 AM Dictation Location: [place] [address] Electronically authenticated by: [id number] Y Date: 09/12/2025 08:03
--- NOTE | 2025-09-11 18:58 | ECG_ITS ---
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 Measurements Intervals [place] Rate: 59 P: 17 NM: 240 QRS: 6 QRSD: 102 T: 63 QT: 446 QTc: 446 Interpretive Statements 1100 Sinus rhythm 2231 First degree AV block [address] depression 9150 abnormal ECG Compared to ECG 12/25/2024 10:36:49 ST (T wave) deviation now present Sinus arrhythmia no longer present Electronically Signed On 09-11-2025 22:37:02 EST by AMBER VITALE M.D.
[2025-09-11 19:02] LABS: Hematocrit 28.5 % (42.0-54.0); Hemoglobin 9.4 g/dL (14.0-18.0); Immature Granulocytes Abs Auto 0.01 10^3/uL (0.00-0.03); Immature Granulocytes Pct Auto 0.2 % (0.0-0.5); Lymphocytes Absolute Auto 1.3 10^3/uL (1.2-3.8); Mean Corpuscular HGB Conc 33.0 g/dL (29.9-35.2); Mean Corpuscular Hemoglobin 31.5 pg (25.9-34.0); Mean Corpuscular Volume 95.6 fL (80.0-94.0); Platelet Count 141 10^3/uL (150-450); Red Blood Count 2.98 10^6/uL (4.70-6.10); White Blood Count 6.4 10^3/uL (4.0-11.0)
--- OUTSIDE RECORDS SUMMARY | 2025-09-11 19:17 | XMS_ITS | CCD ---
Author Organization [facility] Care Team Providers Care [employer] Name Role Phone CLARITZA YARBROUGH Unavailable Unavailable NADERER, RUBEN SHIRA Unavailable Unavailabl [...] Unavailable CINDY, ISIDRO FRANKY Unavailable Unavailable FORRESTERALBERT JERRY Unavailable Unavailab le EDD, AHMED Unavailable Unavailable [...] Unavailable HAY ., DR RICKS Admitting Unavailable TERESA ., DR RICKS Attending Unavailable ATMORE, DR MIKA Romero Consulting Unavailable ALEXIS ., JUAN FELDER Consulting UnavailJOSSELYN Cameron Consulting Unavailable NON STAFF Primary Care Provider UnavailLINO Drew Emergency Provider MarjorieBrittany Unavailable Michael Amador Attending Unavailable Michael Amador Admitting Unavailable NON STAFF Primary Care Unavailable THEE MCGUIRE JR Primary Care Physician [phone] Thee Mcguire MD Primary Care Provider Elizabeth Victoria Attending Unavailable Claritza YARBROUGH Referring Unavailable DO TYLER Attending Unavailab Claritza Waldron Attending Unavailable Julien, Elizabeth Foote Attending Unavailable Claritza YARBROUGH Referring Unavailable Claritza YARBROUGH Admitting Unavailable Claritza YARBROUGH Attending Unavailable Gallula, Elizabeth Foote Attending Unavailable Julien, Elizabeth Foote Attending Unavailable Thee Mcguire MD Primary Care Provider SMITH MUNGUIA Attending Unavailable SMITH MUNGUIA Attending Unavailable SMITH MUNGUIA Attending Unavailable SMITH MUNGUIA Attending Unavailable SMITH MUNGUIA Attending Unavailable Allergies Allergy ClassificationReported Allergen(s)Allergy TypeDate of OnsetReaction(s) Facility (4 sources)Aspirin; Translations: [aspirin]Drug Pywdezq88-87-4184Cavkbai ReactionThe [facility] Repository (4 sources)Cephalexin; Translations: [Keflex]Drug Debuylb31-74-8457ZwnbhhjKgm [facility] Repository (4 sources)Codeine; Translations: [codeine]Drug Zbnghds00-61-1865Bnpjmat ReactionThe [facility] Repository (2 sources)ErythromycinDrug Zeaxgts76-01-6448Wjcjgav ReactionThe [facility] Repository (2 sources)IothalamateDrug Nuzmstx92-05-4271Jdz [facility] Repository (4 sources)Minocycline; Translations: [minocycline]Drug Yftbncy84-30-3779Iogbnwy ReactionThe [facility] Repository (8 sources)Penicillin; Translations: [penicillin]Drug Lzgocnk49-54-1871Lsklxd (finding)The [facility] Repository (2 sources)ProcyclidineDrug Icrwgrs39-62-8881Ype [facility] Repository (1 source)Sulfamethoxazole / TrimethoprimDrug Ohkxqow48-60-0985Ekx [facility] Repository (3 sources)Sulfonamides (Antibiotic)Drug allergy (disorder)97-13-3781Oeupmwz ReactionThe [facility] Repository (4 sources)Tetracycline; Translations: [tetracycline]Drug Xrhlzqu68-97-3583 Unknown ReactionThe [facility] Repository (2 sources)PenicillinsDrug allergy (disorder)46-26-1596ClzgwmcvTts [facility] Repository (1 source)E.E.S.Drug allergy (disorder)98-85-7623Izs [facility] Repository (20 sources)Cephalexin; Translations: [cephalexin]Drug Fbkqtoj85-00-4000Pxoena (finding), Diarrhea (finding), [place] (20 sources)Indomethacin; Translations: [indomethacin]Drug Niudkjk21-98-1651 Nausea (finding), [facility] (7 sources)Aspirin; Translations: [aspirin]Drug AllergyFatigue (finding) [facility] (18 sources)Codeine; Translations: [codeine]Drug Tyvcbnq43-70-6309Egmnem (finding), UnknownExec[facility] (19 sources)Erythromycin; Translations: [erythromycin]Drug Bptviyx28-94-7631 Nausea (finding), UnknownExec[facility] (12 sources)MetoclopramideDrug Rpojxcz98-57-7374BbecdkoWnnwb [facility] [employer] Other (7 sources)Minocycline; Translations: [minocycline]Drug AllergyEruption of skin (disorder)[facility] (12 sources)Penicillin GDrug Txgiwdf33-45-7057AqdkpijKnwtr [facility] Other (12 sources)Sulfamethoxazole / TrimethoprimDrug Pexyzps70-21-6889OfsujetQhlpbAvalanche [employer] Other (18 sources)Tetracycline; Translations: [tetracycline]Drug Wczktrr52-06-7339 Nausea (finding), UnknownExec[facility] (1 source)AspirinDrug Nvftwcg91-65-4820GgvepwfboSelect [facility] Repository (1 source)CodeineDrug Rvyixtt10-97-8445JjmwcgcmwSelect [facility] Repository (1 source)ErythromycinDrug Qkqieeu96-99-6905KrdjlgandSelect Medical [facility] Repository (1 source)MetoclopramideDrug Jftudzr42-05-2455XdjublpcySelect [facility] Repository (1 source)MinocyclineDrug Uhqajsy45-74-5236BnzpbvhacSelect [facility] Repository (1 source)PenicillinDrug Qagmzxg27-93-5863TlzavhkxhSelect [facility] Repository (1 source)PenicillinsDrug allergy (disorder)97-49-9884KnaccgukzSelect Medical [facility] Repository (1 source)SulfamethoxazoleDrug Axvhhvb34-85-2181TjyveftcqSelect [facility] Repository (1 source)Sulfonamides (Antibiotic)Drug allergy (disorder)68-46-5679Tcygfmx[address] [place] [address] Repository (1 source)TetracyclineDrug Ctgajrv69-75-8589AgruhnmveSelect [facility] Repository (1 source)TrimethoprimDrug Ahqpafj91-32-9482DmtuehluhSelect [facility] Repository (7 sources)Sulfonamides (Antibiotic); Translations: [sulfa drugs]Propensity to adverse reactions to drugNausea (finding)[facility] (11 sources)Aluminum aspirinDrug Niywylt66-68-1549UktbRLPS Healthcare (11 sources)MinocyclineDrug Xpyzhqh15-91-8180YqgpvlpQKOC Healthcare Medications Current Medications MedicationDrug Class(es)DatesSig (Normalized)Sig (Original)Antihistamine & Nasal Decongestant 60 mg-120 mg oral tablet, extended release (6 sources)Start: 26-82-7898wcso 1 tablet by mouth every twelve hours Antihistamine & Nasal Decongestant 60 mg-120 mg oral tablet, extended release tab(s), Oral, q12hr, Refill(s) 0 Start Date: 08/12/24 Status: Ordered Repeat number: 1Start: 45-32-8077jhis 1 tablet by mouth every twelve hoursAntihistamine & Nasal Decongestant 60 mg-120 mg oral tablet, extended release tab(s), Oral, q12hr, Refill(s) 0 Start Date: 08/12/24 Status: Orderedbaclofen 10 mg oral tablet (11 sources)gamma-Aminobutyric Acid-ergic AgonistStart: 13-53-3428nuaf 1 tablet by mouth at bedtimebaclofen (Lioresal) 10 MG tablet Take 10 mg by mouth at bedtime 10/31/2023 Activecarvedilol 6.25 mg oral tablet (18 sources)alpha-Adrenergic Mae, beta-Adrenergic BlockerStart: 08-12-2024 take 1 tablet by mouth once daily in the morningcarvedilol 6.25 mg Tab take 1 tablet by mouth every morning Start Date: 08/12/24 Status: Ordered Repeat number: 1Start: 50-34-0591Xximhooeig Active MG TABLET October 18, 2023 12:00amCentrum - (1 source)clindamycin 300 mg oral capsule (1 source)Lincosamide AntibacterialStart: 59-59-5353rnzp 300 mg by mouth four times dailyClindamycin Hcl Active 300 MG PO Four times daily 40 October 18, 2023 12:00amClopidogrel & Aspirin (1 source)DULoxetine 60 mg delayed release oral capsule (19 sources)Serotonin and Norepinephrine Reuptake InhibitorStart: 69-27-9568hwix 1 capsule by mouth at bedtimeduloxetine 60 mg oral delayed release capsule TAKE 1 CAPSULE AT BEDTIME. Start Date: 08/12/24 Status: Ordered Repeat number: 1 Start: 92-61-7217Rbomkwzhpo Active MG PO October 18, 2023 12:00amdutasteride 0.5 mg oral capsule (17 sources)5-alpha Reductase InhibitorStart: 78-65-4624uyst 1 capsule by mouth in the morningdutasteride (Avodart) 0.5 MG capsule Take 0.5 mg by mouth in the morning. 08/28/2023 ActiveFinerenone (1 source)Start: 60-43-5634Tbdqlxbguo (Kerendia) 10 mg Tablet Active MG TABLET October 18, 2023 12:00amfinerenone 20 MG Oral Tablet [Kerendia] (6 sources)Start: 53-30-9612lwgx 1 mg by mouth once dailyKerendia 20 mg oral tablet mg tab(s), Oral, Daily, Refills(s) 0 Start Date: 08/12/24 Status: Ordered Repeat number: 1Start: 73-90-3268xsth 1 mg by mouth once dailyKerendia 20 mg oral tablet mg tab(s), Oral, Daily, Refills(s) 0 Start Date: 08/12/24 Status: Orderedfurosemide 40 mg oral tablet (12 sources)Loop DiureticStart: 78-39-7827jiju 1 tablet by mouth in the morning furosemide (Lasix) 40 MG tablet Take 40 mg by mouth in the morning. 11/12/2023 ActivehydrALAZINE hydrochloride 100 mg oral tablet (19 sources)Arteriolar VasodilatorStart: 42-84-2009Dyyqdfgavnv Active MG TABLET October 18, 2023 12:00amStart: 87-76-4113mhxm 1 tablet by mouth twice daily hydrALAZINE (Apresoline) 100 MG tablet take 1 tablet by mouth twice a day (HOLD IF BP IS LESS THAN 110) 09/16/2023 Activelactulose 667 mg/ml oral solution (12 sources)Osmotic LaxativeStart: 40-05-3530Buobmiagkf 10 GM/15ML solution TAKE 15 MLS THREE TO FOUR TIMES A DAY 11/11/2023 ActiveStart: 11-98-7279Rryojkaku (Constulose) 10 gram/15 mL Syrup Active GM PO October 18, 2023 12:00am levothyroxine sodium 0.15 mg oral tablet (1 source)l-Thyroxinetake 1 tablet by mouth once daily in the morningMagnesium (1 source)magnesium oxide 400 mg oral tablet (18 sources)Start: 74-13-3396wdhb 1 tablet by mouth in the morningmagnesium oxide (Mag-Ox) 400 (240 Mg) MG tablet Take 400 mg by mouth in the morning. 2023 ActiveStart: 04-53-3028Osucqdlno Oxide Active MG TABLET October 18, 2023 12:00ammontelukast 10 mg oral tablet (20 sources)Leukotriene Receptor AntagonistStart: 40-41-4928dynn 1 tablet by mouth once dailymontelukast 10 mg Tab take 1 tablet by mouth once daily Start Date: 08/12/24 Status: Ordered Repeatnumber: 1Start: 07-84-2309Ccqpaiotrrl Active MG TABLET October 18, 2023 12:00ampolyethylene glycol 3350 37424 mg powder for oral solution (11 sources)Osmotic Laxativepolyethylene glycol, PEG, 3350 (MiraLax) 17 g packet 1 (one) time each day at the same time ActivePolyethylene Glycols (1 source)predniSONE 1 mg oral tablet (1 source)Start: 90-56-6734Cyefmbebwk Active MG TABLET October 18, 2023 12:00amrivaroxaban 15 mg oral tablet (2 sources)Factor Xa InhibitorStart: 08-12-2024 End: 53-52-1088oorl 1 tablet by mouth twice dailyXarelto 15 mg oral tablet 15 mg, Oral, BID, DVT/PE Treatment and CrCl 30 ml/min and above, X 21 day(s), # 42 tab(s), Refills(s) 0 Start Date: 08/12/24 Stop Date: 09/02/24 Status: Ordered tamsulosin hydrochloride 0.4 mg oral capsule (8 sources)alpha-Adrenergic BlockerStart: 80-23-2225scyx 1 capsule by mouth twice dailytamsulosin 0.4 mg Cap 0.4 mg = 1 cap(s), TAKE 1 CAPSULE BY MOUTH TWICE DAILY Start Date: 08/12/24 Status: Ordered Repeat number: 1Start: 63-40-7705Wwlzsmgzgi Active MG PO October 18, 2023 12:00amtake 1 capsule by mouth every twenty-four hoursVitamin D3 (1 source)warfarin sodium 5 mg oral tablet (1 source)Vitamin K AntagonistStart: 59-14-6314Jyhauwcq Active MG TABLET October 18, 2023 12:00am Completed/Discontinued Medications MedicationDrug Class(es)DatesSig (Normalized)Sig (Original)ciprofloxacin 500 mg oral tablet (2 sources)Quinolone AntimicrobialStart: 47-98-7957jnuw 1 tablet by mouth once dailyCipro 500 mg Tab 500 mg = 1 tab(s), Oral, Daily, Take 1 tablet the day before the procedure and 1 tablet after the procedure, # 2 tab(s), Refills(s) 0, Pharmacy: [id number], 180, cm, 08/12/24 9:35:00 EDT, Height/Length Dosing, 78, kg, 08/12/24 9:35:00 EDT, Weight Dosing Start Date: Status: Ordered Quantity: 2.0 Unit: tab(s) Repeat number: 1liothyronine sodium 0.005 mg oral tablet (17 sources)l-TriiodothyronineStart: 69-17-9788icklolhlfssm 5 mcg Tab 5 mcg = 1 tab(s), TAKE 4 TABLETS BY MOUTH ON FRI, FRI, FRI, AND SUN. - TAKE 3 TABLETS ON FRI, , AND SAT. Start Date: 08/12/24 Status: Ordered Repeat number: 1 liothyronine (Cytomel) 5 MCG tablet TAKE 4 TABLETS BY MOUTH FRI,FRI,AND,FRI, SUN AND 3 TABLETS ,,SAT Activepantoprazole 20 mg delayed release oral tablet (19 sources)Proton Pump InhibitorStart: 25-20-1103olxx 1 tablet by mouth once dailyPantoprazole [address] Tab 20 mg = 1 tab(s), take 1 tablet by mouth once daily Start Date: 08/12/24 Status: Ordered Repeat number: 1Start: 10-18-2023 Pantoprazole Active MG PO October 18, 2023 12:00amtake 1 tablet by mouth in the morningpantoprazole (ProtoNix) 40 MG EC tablet Take 40 mg by mouth in the morning. Activerosuvastatin calcium 5 mg oral tablet (7 sources)HMG-CoA Reductase InhibitorStart: 73-49-5827aigl 1 tablet by mouth once dailyrosuvastatin 5 mg Tab 5 mg = 1 tab(s), take 1 tablet by mouth once daily Start Date: 08/12/24 Status: Ordered Repeat number: 1Start: 10-18-2023 Rosuvastatin Active MG TABLET October 18, 2023 12:00amtraZODone hydrochloride 50 mg oral tablet (6 sources)Serotonin Reuptake InhibitorStart: 76-15-6614iote 1 tablet by mouth at bedtimetraZODONE 50 mg Tab 50 mg = 1 tab(s), TAKE 1 TABLET BY MOUTH AT BEDTIME Start Date: 08/12/24 Status: Ordered Repeat number: 1 Problems Active Problems Problem ClassificationProblemDateDocumented DateEpisodic/ChronicAcquired foot deformities (5 sources)Hallux valgus (acquired), left foot; Translations: [Hallux valgus (acquired)]94-68-4227GpvmnwrEjqclnqf foot deformities (5 sources)Hallux valgus (acquired), right foot; Translations: [Hallux valgus (acquired)]55-19-4782NvztwbwOhruccf disorders (3 sources)Anxiety disorder, unspecified; Translations: [Anxiety]Onset: 651968-13-1348JfequsiRhdhkwta of urinary tract (1 source)Kidney stone; Translations: [Calculus of kidney]Onset: 08-12-2024 EpisodicChronic obstructive pulmonary disease and bronchiectasis (2 sources)Pulmonary jwjxdhxyk41-94-9249WcivbiuSeuzysxnat heart failure; nonhypertensive (1 source)Heart failure, unspecified; Translations: [HEART FAILURE UNSPECIFIED] Onset: 89-03-7371BygqqvrMvfsomkzj of lipid metabolism (3 sources)Hyperlipidemia, unspecified; Translations: [Hyperlipidemia]Onset: 707325-59-4837VfyblwvVwipqdvpzlckgj and diverticulitis (3 sources)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; Translations: [Diverticulosis of large intestine without perforation or abscess without bleeding]99-52-7898UqyulybAyqvqmvhya disorders (3 sources)Gastroesophageal reflux disease without esophagitis; Translations: [Gastro-esophageal reflux disease without esophagitis]15-08-4954FstbxofNttzoocqw hypertension (4 sources)Essential (primary) hypertension; Translations: [Hypertensive disorder]Onset: 604603-48-6907WxrsvlvOcefkshbwrxtda ulcer (4 sources)Peptic ulcer, site unspecified, unspecified as acute or chronic, without hemorrhage or perforation;Translations: [Peptic ulcer]Onset: 03-30-2018 15-24-9340KyouvslTuosfedqqkilj symptoms and ill-defined conditions (5 sources)Frequency of micturition; Translations: [Retention of urine]Onset: 36-62-8731DxunqshuApfvokrtizp (2 sources)Residual hemorrhoidal skin tags; Translations: [Hemorrhoids]Onset: 08-33-1914EfqvwuhfTqogiqxqhmt of prostate (4 sources)Benign prostatic hypertrophy with outflow obstruction; Translations: [Benign prostatic hyperplasia with lower urinary tract symptoms]Onset: 96-81-9288PprxoadRkikablojrol with complications and secondary hypertension (1 source)Hypertensive heart disease with heart failure; Translations: [HTN HEART DISEASE W/HEART FAIL]Onset: 73-31-2147OpunqkcLippuuz and fatigue (4 sources)Other fatigue; Translations: [Lack of energy]Onset: 10-14-2017 EpisodicMood disorders (7 sources)Major depressive disorder, single episode, severe without psychotic features; Translations: [Major depressive disorder, recurrent severe without psychotic features]Onset: 029469-61-2892UtjypirWppj disorders (1 source)Mood disorders; Translations: [DEPRESSION UNSPECIFIED]Onset: 05-13-0635Ggekizc (4 sources)Pain in toe; Translations: [Tinea unguium]05-38-3796Lsrmiyhn Osteoarthritis (2 sources)Udmiebzwm37-82-3694QfiqkuvJidkl and unspecified benign neoplasm (1 source)History of polyp of colon; Translations: [Personal history of colonic polyps]EpisodicOther connective tissue disease (2 sources)Plantar fasciitis; Translations: [Plantar fascial fibromatosis] 69-58-8967SayombalOiuqy connective tissue disease (2 sources)Calcaneal spur of right foot; Translations: [Calcaneal spur, right foot]48-61-0200MikssvgyCrjzx diseases of kidney and ureters (1 source)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; Translations: [Cyst of kidney, acquired]Onset: 59-21-3584IefglxgmXzcew diseases of kidney and ureters (1 source)Urinary tract obstruction; Translations: [Other obstructive and reflux uropathy]Onset: 63-09-5630PlzgujqpRqzzi gastrointestinal disorders (1 source)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; Translations: [Irritable bowel syndrome with constipation]ChronicOther gastrointestinal disorders (2 sources)Irritable bowel okhwtrvt39-90-1196WrdjvuwUiryv gastrointestinal disorders (2 sources)Constipation, unspecified; Translations: [CONSTIPATION UNSPECIFIED] Onset: 26-03-6184VhtljqhpXwytc gastrointestinal disorders (1 source)Constipation; Translations: [Constipation, unspecified]EpisodicOther gastrointestinal disorders (2 sources)Chronic bjribizljwbj92-77-8295GxpvntnrGazzp male genital disorders (2 sources)Secondary erectile eyenbgaxlho69-28-1247PgaujmoJjtxt nutritional; endocrine; and metabolic disorders (1 source)Weight loss; Translations: [Abnormal weight loss]EpisodicOther skin disorders (2 sources)Localized swelling, mass and lump, head; Translations: [Localized swelling, mass and lump, head]Onset: 63-81-9012NxphqmtjCnabs skin disorders (5 sources)Asteatosis cutis; Translations: [Xerosis cutis]66-62-7323Exouurgj Other upper respiratory disease (1 source)Abscess of nasal septum; Translations: [Abscess, furuncle and carbuncle of nose]89-64-7410UuibshgvQasivprfk; thrombophlebitis and thromboembolism (3 sources)Personal history of other venous thrombosis and embolism; Translations: [Deep venous thrombosis]Onset: 203670-20-2682AquychohHsiaxba and intentional self-inflicted injury (1 source)Suicide attempt, initial encounter; Translations: [Suicide attempt, initial encounter]Onset: 00-79-3591Cqtxysf disorders (3 sources)Hypothyroidism, unspecified; Translations: [Hypothyroidism]Onset: 620903-42-6841RqqodkuIfxkvdcobnzn (1 source)CONTACT W/AND (SUSP) EXPOS COVID-19; Translations: [CONTACT W/AND (SUSP) EXPOS COVID-19]Onset: 10-31-2022 Past or Other Problems Problem ClassificationProblemDateDocumented DateEpisodic/ChronicAbdominal hernia (1 source)Diaphragmatic hernia without obstruction or gangrene; Translations: [DIAPH HERNIA W/O OBST/GANGRENE]Onset: 87-77-7544BzidkrgeZmuvevkkr pain (5 sources)Generalized abdominal pain; Translations: [Right lower quadrant pain] Onset: 99-33-6829BsvpmawjWzwcoqtqahhftdle hemorrhage (4 sources)Hemorrhage of anus and rectum; Translations: [HEMORRHAGE OF ANUS AND RECTUM]Onset: 86-33-3396LdgifzcdTxjtl aftercare (3 sources)Other custodial (current) drug therapy; Translations: [Other custodial (current) drug therapy]Onset: 92-98-9184AlowasczYzmlo aftercare (1 source)halfway (current) use of anticoagulants; Translations: [INTERMEDIATE CURRNT USE ANTICOAGULANTS]Onset: 94-49-5048NmfdomqhKkulf and unspecified benign neoplasm (1 source)Personal history of colonic polyps; Translations: [PERSONAL HISTORY OF COLONIC POLYPS]Onset: 65-69-6211GuafwpyfVpegs fractures (1 source)Collapsed vertebra, not elsewhere classified, lumbar region, subsequent encounter for fracture withroutine healing; Translations: [COLLAPSED VERT NEC LUMB SUB RTN HL]Onset: 07-50-0773PkrhdqeeAlxul lower respiratory disease (4 sources)Shortness of breath; Translations: [SHORTNESS OF BREATH]Onset: 57-00-2691YdoupsiuKrqsd nutritional; endocrine; and metabolic disorders (1 source)Abnormal weight loss; Translations: [Abnormal weight loss]Onset: 09-31-0359NfynutsrGgdbv upper respiratory infections (1 source)Acute maxillary sinusitis, unspecified; Translations: [Acute maxillary sinusitis, unspecified]Onset: 73-19-1727TagdjdpxVhaivyud codes; unclassified (1 source)Acquired absence of other specified parts of digestive tract; Translations: [ACQ ABSENCE OTH PART DIGESTV TRACT]Onset: 84-67-3800Ftmmxrww Unclassified (1 source)Encounter for screening for lipoid disorders; Translations: [Encounter for screening for lipoid disorders]Onset: 86-26-6511Xzhbwhec Results Test NameValueInterpretationReference RangeFacilityPatient Letter FTon 01-42-3175Cmkyxfc Letter FTPatient Letter FT March 22, 2025 NIELS MCCULLOUGH [address] [place] [address] : 1945 Dear Mr. Niels Mccullough, [facility] has been trying to reach you concerning rescheduling the appointment you cancelled. It is important that we continue to monitor you, regarding your cathing volumes, and for your cathing supplies. Please call the office to reschedule this appointment and bring your cathing volumes for 1 week prior. Thank you for your cooperation in this matter, so we can continue to provide you with quality care. Sincerely, [facility] ( , option #3NormalFisher [facility] Intraoperative Recordon [id number] OR Intraoperative RecordMain OR Intraoperative Record IntraOp Document Type FTURO Summary Primary Physician: Claritza YARBROUGH MD Finalized Date/Time: 11/09/24 11:16:23 Pt. Name: NIELS MCCULLOUGH JR Kayden Acosta/Sex: 1945 Male Med Rec #: [id number] Physician: Claritza YARBROUGH MD Financial #: [id number] Pt. Type: O Room/Bed: / Admit/Disch: 11/09/24 08:48:02 - Institution: Case Times FTURO Entry 1 Patient Times In Room 11/09/24 11:02:00 Out Room 11/09/24 11:16:00 Procedure Times Start 11/09/24 11:07:00 Stop 11/09/24 11:08:00 Anesthesia Times Last Modified By: Adilene Crowley 11/09/24 11:16:10 Case Attendance FTURO Entry 1 Entry 2 Entry 3 Case Attendee Claritza YARBROUGH MD, Kelsie E McClain ENERGY DERIVATIVES TRADER, Amie Monique Role Performed Surgeon - Primary Software Project Engineer - Primary Scrub - Primary Time In [...] LOCAL Primary Procedure Yes Primary Surgeon Claritza YARBORUGH MD Start 11/09/24 11:07:00 Stop 11/09/24 11:08:00 Anesthesia Type [...] Position Verified Availability Equipment, Medication Time Out LINNEA PICKARD, Claritza Cee, Verified (If Participants Adilene Crowley, Applicable) Amie Franco CST Time Out Complete 11/09/24 11:04:00 Allergies Reviewed? Yes Allergies Reviewed Self/Patient With Body Position Supine Prep Area PENIS Prep Agents Betadine Solution Skin. Condition Intact, [place], Warm, & Description N/A Dry Additional None [...] Adilene Crowley 11/09/24 11:16 Adilene Crowley 11/09/24 11:16Normal [facility] Preoperative Recordon [id number] OR Preoperative RecordMain OR Preoperative Record Holding Area Document Type FTURO Summary Primary Physician: Claritza YARBROUGH MD Finalized Date/Time: 11/09/24 11:04:12 Pt. Name: JAMEL INELS PEREZ/Sex: 1945 Male Med Rec #: [id number] Physician: Claritza YARBROUGH MD Financial #: [id number] Pt. Type: O Room/Bed: / Admit/Disch: 11/09/24 [...] or her perioperative plan of care The patient'sright to privacy is maintained Surgery Checklist FTURO Entry 1 Patient Birthday, ID Band Procedure History and Physical, Identification: Check, Patient Verification: Surgical Consent, With Participation Patient NPO after Midnight: n/a Personal Items: Glasses Limitations: walker Complaints of Pain: No Skin Integrity Intact, [place], Warm, & Dry Vitals - EU Blood Pressure 194/90 Pulse 75 bpm Respirations 18 br/min SPO2 98 % Additional None RN Reviewed Yes Specimens Collected Last Modified By: Adilene Crowley 11/09/24 11:04:01 Finalized By: Adilene Crowley Document Signatures Signed By: Adilene Crowley 11/09/24 11:04 Adilene Crowley 11/09/24 11:04 Barry CHAVARRIAAliciaErica D 11/09/24 10:42 Adilene Crowley 11/09/24 11:04NoSouthern Ohio Medical CenterOperative Reporton [id number] ReportOperative Report Patient: NIELS MCCULLOUGH JR Age: 79 [...] be in 4 months with a physician bone glue maker.[facility] Defiance HospitalComment on above:Result Comment: Electronically Signed By: Claritza YARBROUGH MD\.br\Date and Time Signed: 11/09/24 11:15 ESTAmbulatory Visit Summaryon 67-96-6020Rohqhenasv Visit SummaryAmbulatory Visit Summary NIELS MCCULLOUGH JR :1945 Visit Date:08/12/2024 Ambulatory Visit Instructions Your Diagnosis Urinary retention Constipation BPH with urinary obstruction Kidney stone Renal cyst Other obstructive and reflux uropathy Your Care Team Attending Physician - Julien WALLS, Elizabeth Foote Primary Care Physician - THEE CMGUIRE JR, DO This Is Your Medications List Contact prescribing physician if questions or concerns carvedilol (carvedilol 6.25 mg Tab) duloxetine (duloxetine 60 mg oral delayed release capsule) dutasteride (dutasteride 0.5 mg Cap) fexofenadine-pseudoephedrine (Antihistamine & Nasal Decongestant 60 mg-120 mg [...] 8:30 AM EST Where: [facility] [address] [place] [address]- Medications What How Much When Instructions Unchanged [...] prescribing physician if questions or concerns Unchanged fexofenadine-pseudoephedrine (Antihistamine & Nasal Decongestant 60 mg-120 mg [...] 4 TABLETS BY MOUTH ON MON, WED, FRI,AND SUN. - TAKE 3 TABLETS ON FRI, , AND SAT. Contact prescribing physician if questions or concerns Unchanged magnesium oxide (magnesium oxide 400 mg Tab) take 1 tablet by mouth once daily Contact prescribing physician if questions or concerns Unchanged montelukast (montelukast 10 mg Tab) take 1 tablet by mouth once daily Contact prescribingphysician if questions or concerns Unchanged montelukast (montelukast 10 mg Tab) take 1 tablet by mouth once daily Contact prescribingphysician if questions or concerns Unchanged pantoprazole (Pantoprazole [...] TAKE 1 CAPSULE BY MOUTH TWICE DAILY Contactprescribing physician if questions or concerns Unchanged trazodone [...] you for choosing us for your care. [facility] Defiance HospitalActivated partial thromboplastin time (aPTT) in platelet poor plasma by coagulation aOrdered By: Michael Amador on 89-55-2716jZZK Coag (PPP) [Time]31.2 s25.1-36.5FKettering Health SpringfieldComment on above:A hematocrit value greater than 55% may lead to inaccurate results in coagulation testing. Patientshaving hematocrit values >55% require a special collection tube for coagulation studies. Please contact the laboratory at [phone] for redraw instructions.Alanine aminotransferase [Enzymatic activity/volume] in Serum or PlasmaOrdered By: Michael Amador on 01-85-1742KBZ [Catalytic activity/Vol]9 U/L7-52[facility] [place] Albumin [Mass/volume] in Serum or Plasma by Bromocresol green (BCG) dye binding methoOrdered By: Michael Amador on 41-89-4808Uoqaffr BCG dye [Mass/Vol]3.9 g/dL 3.5-5.7FKettering Health SpringfieldAlkaline phosphatase [Enzymatic activity/volume] in Serum or PlasmaOrdered By: Michael Amador on 23-71-6944NFJ [Catalytic activity/Vol]65 U/R44-485OqlamyiekSelect Medical [facility] Clinic Rehabilitation Hospital, BeachwoodAspartate aminotransferase [Enzymatic activity/volume] in Serum or PlasmaOrdered By: Michael Amador on 88-05-6406TDS [Catalytic activity/Vol]12 U/A41-87ZwnfsxmkiSelect Medical [facility] Clinic Rehabilitation Hospital, BeachwoodBasophils Auto (Bld) [#/Vol]Ordered By: Michael Amador on 40-80-8646Qmxajkrju (Bld) [#/Vol]0.0 10*3/uL0.0-0.2FKettering Health SpringfieldBasophils/100 WBC Auto (Bld)Ordered By: Michael Amador on 10-18-2023 Basophils/100 WBC (Bld)0.3 %.[facility], BeachwoodBilirubin.total [Mass/volume] in Serum or PlasmaOrdered By: Michael Amador on 10-18-2023 Bilirubin [Mass/Vol]0.5 mg/dL0.3-1.0[facility], BeachwoodBlood Cultureon 60-38-8377Xyogmlku identified Cx Nom (Bld)NO GROWTH 5 DAYS PERFORMED BY: [facility] [address] [place] [address] PATHOLOGIST LAPPING MACHINE OPERATOR DAVID VERA M.D.[facility] Cleveland Medical CenterComment on above: Performed By: #### PTT, CUBLD, CBC, LACTIC, CMP, PT #### [facility] [address] [place] [address] USABacteria identified Cx Nom (Bld)NO GROWTH 5 DAYS PERFORMED BY: [place] [address] PATHOLOGIST LAPPING MACHINE OPERATOR DAVID VERA M.D.[facility] Cleveland Medical CenterComment on above: Performed By: #### PTT, CUBLD, CBC, LACTIC, CMP, PT #### [facility] [address] [place] [address] USACT sinus wo conon 13-40-5220HO sinus wo [facility] [place] [address] [place] [address] CT Scan Report Signed Patient: Niels Mccullough JR MR#: [id number] : 1945 Acct:[id number] Age/Sex: 77 / M ADM Date: 10/18/23 Loc: ER Room: Type: [facility] ER Attending Dr: Copies to: Michael [...] Rachel Briseno M.D.10/18/2023 1:17 PM Dictation Location: [place] [address] Transcribed By: EMILIO 10/18/231316 Dictated By: Rachel Briseno MD 10/18/231311 Signed By: 10/18/231316NormalSelect Medical [facility] Rehabilitation Hospital, BeachwoodCalcium [Mass/volume] in Serum or PlasmaOrdered By: Michael Amador on 89-14-2377Tmzgjsx [Mass/Vol]9.0 mg/dL8.6-10.3FKettering Health SpringfieldCarbon dioxide, total [Moles/volume] in Serum or PlasmaOrdered By: Michael Amador on 14-84-1429JU5 [Moles/Vol]23.9 mmol/L21.0-31.0[facility], BeachwoodChloride [Moles/volume] in Serum or PlasmaOrdered By: Michael Amador on 10-18-2023 Chloride [Moles/Vol]105 mmol/G54-575IvhimtwmvSelect Medical [facility] Clinic Rehabilitation Hospital, BeachwoodComplete Blood Count Auto Diffon 88-60-2203Sdbzqbffa (Bld) [#/Vol]0.0 10*3/uLNormal 0.0-0.2FKettering Health SpringfieldComment on above:Result Comment: PERFORMED BY: [place] [address] PATHOLOGIST LAPPING MACHINE OPERATOR DAVID VERA M.D.Performed By: #### PTT, CUBLD, CBC, LACTIC, CMP, PT #### [facility] [address] [place] [address] USABasophils/100 WBC (Bld)0.3 %Normal.[facility], BeachwoodComment on above:Performed By: #### PTT, CUBLD, CBC, LACTIC, CMP, PT #### [facility] [address] [place] [address] USAEosinophils (Bld) [#/Vol]0.1 10*3/uLNormal0.0-0.45 [facility], BeachwoodComment on above:Performed By: #### PTT, CUBLD, CBC, LACTIC, CMP, PT #### [place] [address] USAEosinophils/100 WBC (Bld)0.9 %Normal.[facility], BeachwoodComment on above:Performed By: #### PTT, CUBLD, CBC, LACTIC, CMP, PT #### [place] [address] USAErythrocyte distribution width (RBC) [Ratio]14.9 %High 12.0-14.8[facility], BeachwoodComment on above:Performed By: #### PTT, CUBLD, CBC, LACTIC, CMP, PT #### [place] [address] USAHematocrit (Bld) [Volume fraction]29.9 %Low38.8-50.0 [facility], BeachwoodComment on above:Performed By: #### PTT, CUBLD, CBC, LACTIC, CMP, PT #### [place] [address] USAHemoglobin (Bld) [Mass/Vol]10.2 g/dLLow13.0-17.0[facility], BeachwoodComment on above:Performed By: #### PTT, CUBLD, CBC, LACTIC, CMP, PT #### [place] [address] USALymphocytes (Bld) [#/Vol]0.9 10*3/uLLow1.00-4.8[facility], BeachwoodComment on above:Performed By: #### PTT, CUBLD, CBC, LACTIC, CMP, PT #### [place] [address] USALymphocytes/100 WBC (Bld)10.2 %Normal.[facility], BeachwoodComment on above:Performed By: #### PTT, CUBLD, CBC, LACTIC, CMP, PT #### [place] [address] USAMCH (RBC) [Entitic mass]32.4 anKvtvnq65.5-35.2FKettering Health SpringfieldComment on above:Performed By: #### PTT, CUBLD, CBC, LACTIC, CMP, PT #### [place] [address] USAMCV (RBC) [Entitic vol]94.7 xZWvteiq53.5-101[facility], BeachwoodComment on above:Performed By: #### PTT, CUBLD, CBC, LACTIC, CMP, PT #### [place] [address] USAMean Corpuscular HGB Conc34.2 g/yQXhmcqk47.5-35.6FKettering Health SpringfieldComment on above:Performed By: #### PTT, CUBLD, CBC, LACTIC, CMP, PT #### [place] [address] USAMonocytes (Bld) [#/Vol]0.9 10*3/uLHigh0.0-0.8[facility], BeachwoodComment on above:Performed By: #### PTT, CUBLD, CBC, LACTIC, CMP, PT #### [place] [address] USAMonocytes/100 WBC (Bld)19.23 %Normal0.00-20.00[facility], BeachwoodComment on above:Performed By: #### PTT, CUBLD, CBC, LACTIC, CMP, PT #### [place] [address] USAMonocytes/100 WBC (Bld)9.6 %Normal.[facility], BeachwoodComment on above:Performed By: #### PTT, CUBLD, CBC, LACTIC, CMP, PT #### [place] [address] USANeutrophils (Bld) [#/Vol]7.2 10*3/uLNormal1.8-7.7FKettering Health SpringfieldComment on above:Performed By: #### PTT, CUBLD, CBC, LACTIC, CMP, PT #### [place] [id number] USANeutrophils/100 WBC (Bld)79.0 %Normal.[facility], BeachwoodComment on above:Performed By: #### PTT, CUBLD, CBC, LACTIC, CMP, PT #### [facility] [address] [place] [address] USANRBC%0.0 /100{WBC}Normal0-0.5FKettering Health SpringfieldComment on above:Performed By: #### PTT, CUBLD, CBC, LACTIC, CMP, PT #### [facility] [address] [place] [address] USAPlatelet mean volume (Bld) [Entitic vol]7.0 fLNormal 6.6-10.1FKettering Health SpringfieldComment on above:Performed By: #### PTT, CUBLD, CBC, LACTIC, CMP, PT #### [facility] [address] [place] [address] USAPlatelets (Bld) [#/Vol]202 10*3/cMDvpega093-159QnhutxdsdSelect Medical [facility] Clinic Rehabilitation Hospital, BeachwoodComment on above:Performed By: #### PTT, CUBLD, CBC, LACTIC, CMP, PT #### [facility] [address] [place] [address] USARBC (Bld) [#/Vol]3.15 10*6/uLLow3.90-5.60[facility], BeachwoodComment on above:Performed By: #### PTT, CUBLD, CBC, LACTIC, CMP, PT #### [facility] [address] [place] [address] USAWBC (Bld) [#/Vol]9.1 10*3/uLNormal4.1-10.5FKettering Health SpringfieldComment on above:Performed By: #### PTT, CUBLD, CBC, LACTIC, CMP, PT #### [facility] [address] [place] [address] USAComprehensive Metabolic Panelon 94-23-5758Untjffc [Mass/Vol]3.9 g/dLNormal3.5-5.7FKettering Health SpringfieldComment on above:Performed By: #### PTT, CUBLD, CBC, LACTIC, CMP, PT #### [place] [address] USAAlbumin/Globulin [Mass ratio]1.1 {ratio}NormalSelect Medical Cleveland Clinic Rehabilitation Hospital, BeachwoodComment on above:Performed By: #### PTT, CUBLD, CBC, LACTIC, CMP, PT #### [facility] [address] [place] [address] USAALP [Catalytic activity/Vol]65 U/TTbobsl71-472GjquibgyzSelect Medical [facility] Clinic Rehabilitation Hospital, BeachwoodComment on above:Performed By: #### PTT, CUBLD, CBC, LACTIC, CMP, PT #### [place] [address] USAALT [Catalytic activity/Vol]9 U/LNormal7-52[facility], BeachwoodComment on above:Performed By: #### PTT, CUBLD, CBC, LACTIC, CMP, PT #### [place] [address] USAAnion gap [Moles/Vol]9.8 mmol/LNormal6.0-15.0[facility], BeachwoodComment on above:Performed By: #### PTT, CUBLD, CBC, LACTIC, CMP, PT #### [place] [address] USAAST [Catalytic activity/Vol]12 U/HDzc65-52HajmrvffsSelect Medical [facility] Clinic Rehabilitation Hospital, BeachwoodComment on above:Performed By: #### PTT, CUBLD, CBC, LACTIC, CMP, PT #### [place] [address] USABilirubin [Mass/Vol]0.5 mg/dLNormal0.3-1.0[facility], BeachwoodComment on above:Performed By: #### PTT, CUBLD, CBC, LACTIC, CMP, PT #### [place] [address] USACalcium [Mass/Vol]9.0 mg/dLNormal8.6-10.3FKettering Health SpringfieldComment on above:Performed By: #### PTT, CUBLD, CBC, LACTIC, CMP, PT #### [facility] [address] [place] [address] USAChloride [Moles/Vol]105 mmol/DRttyev17-586ZbzsklkkvSelect Medical [facility] Clinic Rehabilitation Hospital, BeachwoodComment on above:Performed By: #### PTT, CUBLD, CBC, LACTIC, CMP, PT #### [place] [address] USACO2 [Moles/Vol]23.9 mmol/TEzmgbe32.0-31.0[facility], BeachwoodComment on above:Performed By: #### PTT, CUBLD, CBC, LACTIC, CMP, PT #### [place] [address] USACreatinine [Mass/Vol]1.98 mg/dLHigh0.70-1.30[facility], BeachwoodComment on above:Performed By: #### PTT, CUBLD, CBC, LACTIC, CMP, PT #### [place] [address] USACreatinine Clr Calc Scbwfngy19.87NoWilson Street HospitalComment on above:Result Comment: PERFORMED BY: [place] [address] PATHOLOGIST LAPPING MACHINE OPERATOR DAVID VERA M.D.Performed By: #### PTT, CUBLD, CBC, LACTIC, CMP, PT #### [place] [address] USAGFR/1.73 sq M.predicted MDRD (S/P/Bld) [Vol rate/Area] 34.364 mL/min/{1.73_m2}[facility] CenterComment on above: Performed By: #### PTT, CUBLD, CBC, LACTIC, CMP, PT #### [place] [address] USAGlobulin (S) [Mass/Vol]3.7 g/dLUniversity Hospitals Cleveland Medical CenterComment on above:Performed By: #### PTT, CUBLD, CBC, LACTIC, CMP, PT #### [place] [address] USAGlucose [Mass/Vol]114 mg/oVLolc37-711TqzbvaayrSelect Medical Cleveland Clinic Rehabilitation Hospital, BeachwoodComment on above:Result Comment: Random Glucose Reference Range is dependent on time and content of last meal. Glucose of more than 200 mg/dL in a nonstressed, ambulatory subject supports the diagnosis of Diabetes Mellitus. ADA recommended reference rangePerformed By: #### PTT, CUBLD, CBC, LACTIC, CMP, PT #### [facility] [address] [place] [address] USAPotassium [Moles/Vol]3.7 mmol/LNormal3.5-5.1FKettering Health SpringfieldComment on above:Performed By: #### PTT, CUBLD, CBC, LACTIC, CMP, PT #### [place] [address] USAProtein [Mass/Vol]7.6 g/dLNormal6.4-8.9[facility], BeachwoodComment on above:Performed By: #### PTT, CUBLD, CBC, LACTIC, CMP, PT #### [facility] [address] [place] [address] USASodium [Moles/Vol]135 mmol/QHdv364-925PqwmeiyzqSelect Medical [facility] Clinic Rehabilitation Hospital, BeachwoodComment on above:Performed By: #### PTT, CUBLD, CBC, LACTIC, CMP, PT #### [facility] [address] [place] [address] USAUrea nitrogen [Mass/Vol]31 mg/dLHigh7-25[facility], BeachwoodComment on above:Performed By: #### PTT, CUBLD, CBC, LACTIC, CMP, PT #### [place] [address] USACreatinine [Mass/volume] in Serum or PlasmaOrdered By: Michael Amador on 83-58-7697Skglpgqghg [Mass/Vol]1.98 mg/dL0.70-1.30[facility], BeachwoodECG 12 lead ECGon 68-64-7512XKJ 12 lead ECGTHE [facility] [place] [address] [place] [address] Electrocardiograph Report Signed Patient: JamelNiels Kayden PEREZ MR#: [id number] : 1945 Acct:[id number] Age/Sex: 77 / M ADM Date: 10/18/23 Loc: ER Room: Type: [facility] ER Attending Dr: Ordering Provider: Michael [...] MUS Signed By Jayesh Alex MD 10/18/23 1535NormalSelect Medical [facility] Clinic Rehabilitation Hospital, BeachwoodEosinophils Auto (Bld) [#/Vol]Ordered By: Michael Amador on 84-79-6272Cwncrmuqrql (Bld) [#/Vol]0.1 10*3/uL0.0-0.45 [facility], BeachwoodEosinophils/100 WBC Auto (Bld)Ordered By: Michael Amador on 32-79-1805Nuvhwibugbn/100 WBC (Bld)0.9 %.[facility], BeachwoodErythrocyte distribution width Auto (RBC) [Ratio]Ordered By: Michael Amador on 35-04-0339Mhhrzpymtrr distribution width (RBC) [Ratio]14.9 % 12.0-14.8[facility], BeachwoodGlobulin Calc (S) [Mass/Vol]Ordered By: Michael Amador on 54-56-7426Zlmsezny (S) [Mass/Vol]3.7 g/dLSelect Medical Cleveland Clinic Rehabilitation Hospital, BeachwoodGlucose [Mass/volume] in Serum or PlasmaOrdered By: Michael Amador on 24-46-6753Qcyidcl [Mass/Vol]114 mg/zZ18-493SmascpeosSelect Medical Cleveland Clinic Rehabilitation Hospital, BeachwoodComment on above:ADA recommended reference rangeRandom Glucose Reference Range is dependent on time and content of last meal. Glucose of more than 200 mg/dL in a nonstressed, ambulatory subject supports the diagnosisof Diabetes Mellitus.Hematocrit Auto (Bld) [Volume fraction]Ordered By: Michael Amador on 47-82-1221Dymuswtfui (Bld) [Volume fraction]29.9 %38.8-50.0[facility], BeachwoodHemoglobin [Mass/volume] in BloodOrdered By: Michael Amador on 57-36-1585Pvzvlrxwkc (Bld) [Mass/Vol]10.2 g/dL13.0-17.0[facility], BeachwoodINR in Platelet poor plasma by Coagulation assayOrdered By: Michael Amador on 99-95-7493FXC Coag (PPP) [Relative time]1.4 {INR}[facility], BeachwoodComment on above:INR Therapeutic Range A) Pre- and Peroperative OAT started two weeks before surgery. NOT HIP SURGERY: 1.5 - 2.5 HIP SURGERY: 2 - 3B) Primary and secondary prevention of venous THROMBOSIS: 2 - 3C) Active venous thrombosis, pulmonary embolismand prevention of recurrent venous thrombosis: 2 - 3D) Prevention of arterial thromboembolismincluding patients with mechanical heart valves: 3 - 4.5Lactate [Moles/volume] in Serum or PlasmaOrdered By: Michael Amador on 55-04-3424Raadseo [Moles/Vol]0.7 mmol/L 0.5-2.2FKettering Health SpringfieldLactic Acidon 06-28-2073Lkcmuyx [Moles/Vol]0.7 mmol/LNormal0.5-2.2FKettering Health SpringfieldComment on above:Result Comment: PERFORMED BY: [place] [address] PATHOLOGIST LAPPING MACHINE OPERATOR DAVID VERA M.D.Performed By: #### PTT, CUBLD, CBC, LACTIC, CMP, PT #### [place] [address] USALeukocytes [#/volume] corrected for nucleated erythrocytes in Blood by Automated counOrdered By: Michael Amador on 49-05-7104TBD corrected for nucl RBC Auto (Bld) [#/Vol]9.1 10*3/uL4.1-10.5FKettering Health SpringfieldLymphocytes Auto (Bld) [#/Vol]Ordered By: Michael Amador on 10-18-2023 Lymphocytes (Bld) [#/Vol]0.9 10*3/uL1.00-4.8[facility] [place] Lymphocytes/100 WBC Auto (Bld)Ordered By: Michael Amador on 10-18-2023 Lymphocytes/100 WBC (Bld)10.2 %.[facility] HospitalH Auto (RBC) [Entitic mass]Ordered By: Michael Amador on 22-55-3244QXX (RBC) [Entitic mass] 32.4 pg27.5-35.2FKettering Health SpringfieldMCHC Auto (RBC) [Mass/Vol] Ordered By: Michael Amador on 31-36-1942MLMH (RBC) [Mass/Vol]34.2 g/dL32.5-35.6 [facility], BeachwoodMCV Auto (RBC) [Entitic vol]Ordered By: Michael Amador on 47-37-9151QRJ (RBC) [Entitic vol]94.7 fL83.5-101[facility], BeachwoodMonocyte distribution width [Entitic volume] in Blood by Automated Ordered By: Michael Amador on 28-52-7414Rjpddsgg distribution width Auto (Bld) [Entitic vol]19.23 %0.00-20.00[facility], BeachwoodMonocytes Auto (Bld) [#/Vol]Ordered By: Michael Amador on 87-13-1928Envejoqnc (Bld) [#/Vol]0.9 10*3/uL0.0-0.8[facility], BeachwoodMonocytes/100 WBC Auto (Bld) Ordered By: Michael Amador on 44-80-9998Noockvodp/100 WBC (Bld)9.6 %.[facility], BeachwoodNeutrophils Auto (Bld) [#/Vol]Ordered By: Michael Amador on 47-80-5179Izlihzzbiee (Bld) [#/Vol]7.2 10*3/uL1.8-7.7FKettering Health SpringfieldNeutrophils/100 WBC Auto (Bld)Ordered By: Michael Amador on 92-36-9160Fjpmvkaxjxu/100 WBC (Bld)79.0 %.[facility], BeachwoodNo Panel InformationOrdered By: Michael Amador on 64-80-1844Tzjxzotri GFR (CKD-EPI) 34.364 mL/MinSelect Medical Cleveland Clinic Rehabilitation Hospital, BeachwoodPharmacy Creatinine Clearance (Chem35.87[facility], BeachwoodNucleated erythrocytes [Presence] in Blood by Automated countOrdered By: Michael Amador on 23-43-1051Kcfxttyoj RBC Auto Ql (Bld)0.0 /100{WBC}0-0.5FKettering Health SpringfieldPartial Thromboplastin Timeon 32-59-6884lNAQ Coag (Bld) [Time]31.2 pQmrkkh93.1-36.5 [facility], BeachwoodComment on above:Result Comment: A hematocrit value greater than 55% may lead to inaccurate results in coagulation testing. Patients having hematocrit values >55% require a special collection tube for coagulation studies. Please contact the laboratory at [phone] for redraw instructions. PERFORMED BY: [place] [address] PATHOLOGIST LAPPING MACHINE OPERATOR DAVID VERA M.D.Performed By: #### PTT, CUBLD, CBC, LACTIC, CMP, PT #### [place] [address] USAPlatelet mean volume Auto (Bld) [Entitic vol]Ordered By: Michael Amador on 74-04-8336Fmqdzvri mean volume (Bld) [Entitic vol]7.0 fL 6.6-10.1FKettering Health SpringfieldPlatelets Auto (Bld) [#/Vol]Ordered By: Michael Amador on 10-00-2169Mfgcrgjcf (Bld) [#/Vol]202 10*3/yP657-479LtywzrtiuSelect Medical [facility] Clinic Rehabilitation Hospital, BeachwoodPotassium [Moles/volume] in Serum or PlasmaOrdered By: Michael Amador on 47-67-3109Yllgiotwi [Moles/Vol]3.7 mmol/L3.5-5.1FKettering Health SpringfieldProtein [Mass/volume] in Serum or PlasmaOrdered By: Michael Amador on 96-30-9656Ydkolde [Mass/Vol]7.6 g/dL6.4-8.9[facility], BeachwoodProthrombin Time INRon 08-15-3448VLP Coag (PPP) [Relative time]1.4 {INR}NormalSelect Medical Cleveland Clinic Rehabilitation Hospital, BeachwoodComment on above:Result Comment: INR Therapeutic Range A) Pre- and [...] patients with mechanical heart valves: 3 - 4.5Performed By: #### PTT, CUBLD, CBC, LACTIC, CMP, PT #### [facility] [address] [place] [address] USAPT Coag (PPP) [Time]16.6 sHigh9.0-12.9[facility], BeachwoodComment on above:Result Comment: A hematocrit value greater than 55% may lead to inaccurate results in coagulation testing. Patients having hematocrit values >55% require a special collection tube for coagulation studies. Please contact the laboratory at [phone] for redraw instructions.Performed By: #### PTT, CUBLD, CBC, LACTIC, CMP, PT #### [facility] [address] [place] [address] USAProthrombin time (PT)Ordered By: Michael Amador on 12-20-1894ZZ Coag (PPP) [Time]16.6 s9.0-12.9[facility] [place] Comment on above:A hematocrit value greater than 55% may lead to inaccurate results in coagulation testing. Patientshaving hematocrit values >55% require a special collection tube for coagulation studies. Please contact the laboratory at [phone] for redraw instructions.RBC Auto (Bld) [#/Vol]Ordered By: Michael Amador on 76-15-5441WBZ (Bld) [#/Vol]3.15 10*6/uL3.90-5.60Fire[facility] Regional Medical CenterSerum or plasma albumin/globulin mass ratioOrdered By: Michael Amador on 23-62-1288Qftivzq/Globulin [Mass ratio]1.1 {ratio}[facility] Medical Centererum or plasma anion gap determinationOrdered By: Michael Amador on 43-03-3251Eneqg gap [Moles/Vol]9.8 mmol/L6.0-15.0[facility] Medical Centerodium [Moles/volume] in Serum or PlasmaOrdered By: Michael Amador on 79-84-0710Folggf [Moles/Vol]135 mmol/Y943-367LhojfuqztUniversity Hospitals Elyria Medical Centeruperficial Wound Cultureon 70-30-0646Nldbkxouwvo Wound CultureORGANISM: Staphylococcus aureus (O:STAAUR) Quantity of Growth Light Growth Aerobic DRE Charge (PCMIC38) SUSCEPTIBILITY ORGANISM: O:STAAUR ANTIBIOTIC INTERPRETATION DRE Azithromycin R >4 Ceftaroline S <0.5 Ciprofloxacin S <1 Clindamycin S 0.5 Levofloxacin S <1 Linezolid S 2 Oxacillin S 0.5 Penicillin JAMIE >2 Tetracycline S <4 Trimethoprim/Sulfamethoxazole S <0.5 Vancomycin S 1 S = [...] RESISTANT TO ALL B-LACTAM DRUGS. PERFORMED BY: [place] [address] PATHOLOGIST LAPPING MACHINE OPERATOR DAVID VERA M.D.[facility] Cleveland Medical CenterComment on above: Performed By: #### CUSUP #### [place] [address] USAUrea nitrogen [Mass/volume] in Serum or PlasmaOrdered By: Michael Amador on [id number] nitrogen [Mass/Vol]31 mg/dL7-25[facility], BeachwoodWBC Auto (Bld) [#/Vol]Ordered By: Michael Amador on [id number] (Bld) [#/Vol]9.1 10*3/uL4.1-10.5FKettering Health Springfield BNPon 80-72-1647Ojsqvldemin peptide B (Bld) [Mass/Vol]4309.0 pg/mLCritically high<=1,800.0The [facility], IncComment on above:Performed By: #### CBC #### [facility] [address] [place] [address] Dr. Kelsea ThomasC AUTO DIFFon [id number] #0.0 103/ulNormal0.0-0.1The [facility], IncComment on above:Performed By: #### CBC #### [facility] [address] [place] [address] Dr. Kelsea GuillermoBasophils/100 WBC (Bld)0.4 %Normal0.2-2.0[facility] Comment on above:Performed By: #### CBC #### [facility] [address] [place] [address] Dr. Kelsea Morris #0.5 103/ulNormal0.0-0.7The [facility], IncComment on above: Performed By: #### CBC #### [facility] [address] [place] [address] Dr. Kelsea Mederososinophils/100 WBC (Bld)6.4 %Normal0.9-7.0The [facility] Comment on above:Performed By: #### CBC #### [facility] [address] [place] [address] Dr. Kelsea Mederosrythrocyte distribution width (RBC) [Ratio]13.3 %Uumgnw07.0-15.0 The [facility], IncComment on above:Performed By: #### CBC #### [facility] [address] [place] [address] Dr. Kelsea GuillermoHematocrit (Bld) [Volume fraction]33.9 %Critically low42.0-54.0 The [facility], IncComment on above:Performed By: #### CBC #### [facility] [address] [place] [address] Dr. Kelsea GuillermoHemoglobin (Bld) [Mass/Vol]11.6 g/dLCritically low14.0-18.0The [facility], IncComment on above:Performed By: #### CBC #### [facility] [address] [place] [address] Dr. Kelsea Nix #0.02 10e3/ulNormal0.00-0.03The [facility], IncComment on above:Performed By: #### CBC #### [facility] [address] [place] [address] Dr. Kelsea Nix %0.3 %Normal0.0-0.5The [facility], IncComment on above: Performed By: #### CBC #### [facility] [address] [place] [address] Dr. Kelsea Martel #1.0 103/ulCritically low1.2-3.8The [facility] Comment on above:Performed By: #### CBC #### [facility] [address] [place] [address] Dr. Kelsea Garyhocytes/100 WBC (Bld)14.0 %Critically low20.5-60.0The [facility], IncComment on above:Performed By: #### CBC #### [facility] [address] [place] [address] Dr. Kelsea ReedUAL DIFF REQNONormalThe [facility], IncComment on above: Performed By: #### CBC #### [facility] [address] [place] [address] Dr. Kelsea Salomon (RBC) [Entitic mass]32.5 dnUcblyd65.9-34.0The [facility], IncComment on above:Performed By: #### CBC #### [facility] [address] [place] [address] Dr. Kelsea PalaciosHC (RBC) [Mass/Vol]34.2 g/qUOxcrof47.9-35.2The [facility], IncComment on above:Performed By: #### CBC #### [facility] [address] [place] [address] Dr. Kelsea PalaciosV (RBC) [Entitic vol]95.0 fLCritically high80.0-94.0The [facility], IncComment on above:Performed By: #### CBC #### [facility] [address] [place] [address] Dr. Kelsea Brown #0.6 103/ulNormal0.3-0.8The [facility], IncComment on above:Performed By: #### CBC #### [facility] [address] [place] [address] Dr. Kelsea Oliveiraocytes/100 WBC (Bld)8.7 %Normal1.7-12.0The [facility] Comment on above:Performed By: #### CBC #### [facility] [address] [place] [address] Dr. Kelsea Wilson #5.0 103/ulNormal1.4-6.5The [facility], IncComment on above:Performed By: #### CBC #### [facility] [address] [place] [address] Dr. Kelsea Luqueutrophils/100 WBC (Bld)70.2 %Mifpcl48.0-75.0The [facility], IncComment on above:Performed By: #### CBC #### [facility] [address] [place] [address] Dr. Kelsea Echeverria mean volume (Bld) [Entitic vol]9.1 fLCritically low 9.5-13.5The [facility], IncComment on above:Performed By: #### CBC #### [facility] [address] [place] [address] Dr. Kelsea MuñizT171 103/vjKikzlv416-728Ypr [facility], IncComment on above: Performed By: #### CBC #### [facility] [address] [place] [address] Dr. Kelsea GuillermoRBC3.57 106/ulCritically low4.70-6.10The [facility], IncComment on above:Performed By: #### CBC #### [facility] [address] [address] [address] Kelsea GuillermoWBC7.2 103/ulNormal4.0-11.0The [facility] IncComment on above: Performed By: #### CBC #### [facility] [address] [address] [address] Kelsea GuillermoCT HEAD WO CONon [id number] HEAD WO CONCT SCAN OF THE HEAD WITHOUT CONTRAST, 10/30/2022 [...] Electronically authenticated by: Truong MCCANN Date: 2022-10-30 21:14NoJ.W. Ruby Memorial HospitalCovid-19 PCR (CVDTBH)on [id number]-CoV-2 (COVID-19) RNA SHALA+probe Ql (Unsp spec)Not detectedNormalNOT DETECTEDThe [facility] Comment on above:Result Comment: When diagnostic testing is negative, the [...] for this test is supported by the Paper Roll Machine Operator of Health and Human Service's declaration that circumstances exist to justify the emergency use of in vitro diagnostics for the detection and/or diagnosis of the virus that causes COVID-19. This EUA will remain in effect for the duration of the COVID-19 declaration justifying emergency of IVDs, unless it is terminated or revoked by the FDA (after which the test may no longer be used).Performed By: #### CVDTBH #### [facility] [address] [place] [address] Dr. Kelsea Monique AND B AGon [id number] Valley Surgical Hospital on above:Result Comment: Negative for Flu A protein angiten. Infection due to Flu A cannot be ruled out. FluA angiten in the sample may be below the detection limit of the test.Performed By: #### CBC #### [facility] [address] [place] [address] Dr. Kelsea FerroUBNEGKIANA [facility] on above: Result Comment: Negative for Flu B protein antigen. Infection due to Flu B cannot be ruled out. FluB antigen in the sample may be below the detection limit of the test.Performed By: #### CBC #### [facility] [address] [place] [address] Dr. Kelsea Monique AGNegativeNormalNEGATIVE SEE COMMENTThe Greensboro HospitalComment on above:Performed By: #### CBC #### [facility] [address] [place] [address] Dr. Kelsea Brewer AGNegativeNormalNEGATIVE SEE COMMENTThe [facility], IncComment on above:Performed By: #### CBC #### [facility] [address] [place] [address] Dr. Kelsea GuillermoPROF 14(COMP METB)on [id number] [Mass/Vol]3.7 g/dLNormal 3.4-5.0The [facility] IncComment on above:Performed By: #### CBC #### [facility] [address] [place] [address] Dr. Kelsea GuillermoAlbumin/Globulin [Mass ratio]0.9 {ratio}NormalThe [facility], IncComment on above:Performed By: #### CBC #### [facility] [address] [place] [address] Dr. Kelsea Torres [Catalytic activity/Vol]110 U/AVcgskp41-129Xox [facility], IncComment on above:Performed By: #### CBC #### [facility] [address] [place] [address] Dr. Kelsea Elkins [Catalytic activity/Vol]12 U/LCritically rpt27-95Dlg [facility] IncComment on above:Performed By: #### CBC #### [facility] [address] [place] [address] Dr. Kelsea Berry gap [Moles/Vol]12.3 mmol/LNormalThe [facility] Comment on above:Performed By: #### CBC #### [facility] [address] [place] [address] Dr. Kelsea Gatica [Catalytic activity/Vol]18 U/GWkkjwp10-33Tmz [facility] IncComment on above:Performed By: #### CBC #### [facility] [address] [place] [address] Dr. Kelsea GuillermoBilirubin [Mass/Vol]0.3 mg/dLNormal0.2-1.0The [facility] Comment on above:Performed By: #### CBC #### [facility] [address] [address] [address] Kelsea GuillermoCalcium [Mass/Vol]8.4 mg/dLCritically low8.5-10.1The [facility] IncComment on above:Performed By: #### CBC #### [facility] [address] [address] [address] Kelsea GuillermoChloride [Moles/Vol]100 mmol/GKacwbo78-319Ifg [facility] Comment on above:Performed By: #### CBC #### [facility] [address] [address] [address] Kelsea GuillermoCO2 [Moles/Vol]26.7 mmol/FOctxgv32.0-32.0The [facility] Comment on above:Performed By: #### CBC #### [facility] [address] [address] [address] Kelsea GuillermoCreatinine [Mass/Vol]2.01 mg/dLCritically high0.70-1.30The [facility] IncComment on above:Performed By: #### CBC #### [facility] [address] [address] [address] Kelsea MederosGFR-AF DEKIXLCP46 mL/min/1.17s9Wpmgpmmtpq low>=60The [facility] IncComment on above:Performed By: #### CBC #### [facility] [address] [address] [address] Kelsea MederosGFR-NON AF XJPEBXNH28 mL/min/1.30t6Umfwctzflm low>=60The [facility] IncComment on above:Performed By: #### CBC #### [facility] [address] [address] [address] Kelsea GuillermoGlobulin (S) [Mass/Vol]3.9 g/dLNormalThe [facility] IncComment on above:Performed By: #### CBC #### [facility] [address] [address] [address] Kelsea GuillermoGlucose [Mass/Vol]108 mg/dLCritically otqu31-238Ayy [facility] IncComment on above:Performed By: #### CBC #### [facility] [address] [address] [address] Kelsea GuillermoPotassium [Moles/Vol]3.0 mmol/LCritically low3.5-5.1The [facility]al Medical Centerment on above:Performed By: #### CBC #### [facility] [address] [address] [address] Kelsea GuillermoProtein [Mass/Vol]7.6 g/dLNormal6.4-8.2[facility] Comment on above:Performed By: #### CBC #### [facility] [address] [address] [address] Kelsea GuillermoSodium [Moles/Vol]136 mmol/HTyedds178-773WzdPremier Health [facility] Comment on above:Performed By: #### CBC #### [facility] [address] [address] [address] Kelsea GuillermoUrea nitrogen [Mass/Vol]24.0 mg/dLCritically high7.0-18.0The [facility], IncCombeaumont hospital on above:Performed By: #### CBC #### [facility] [address] [address] [address] Kelsea Davis nitrogen/Creatinine [Mass ratio]11.9 mg/mgNoJ.W. Ruby Memorial HospitalComment on above:Performed By: #### CBC #### [facility] [address] [address] [address] Kelsea GuillermoPROTIMEon 16-63-1886LHM Coag (PPP) [Relative time]2.35 {INR} NormalThe [facility], IncCombeaumont hospital on above:Performed By: #### PT, PTT #### [facility] [address] [address] [address] Kelsea Nicole GUIDELINESSEE BELOWLicking Memorial HospitalComment on above:Result Comment: DESIRED INR: 2.0 - 3.0 CONDITIONS NOT LISTED BELOW 2.5 - 3.5 FOR PROSTHETIC HEART VALVE REPLACEMENT 2.5 - 3.5 RECURRENT THROMBOSIS Performed By: #### PT, PTT #### [facility] [address] [place] [address] Dr. Kelsea GuillermoPT Coag (PPP) [Time]24.0 sCritically high9.0-11.6The [facility] IncComment on above:Performed By: #### PT, PTT #### [facility] [address] [place] [address] Dr. Kelsea GuillermoPTTon [id number] Coag (Bld) [Time]47.8 sCritically high 22.3-36.2The [facility], IncComment on above:Performed By: #### PT, PTT #### [facility] [address] [place] [address] Dr. Kelsea Fregoso, HIGH SENSITIVITYon 70-56-5624JIMGFR50.8 pg/mLNormal 4.0-76.1The [facility] IncComment on above:Result Comment: CUT-OFF POINTS HAVE BEEN ESTABLISHED BASED ON THE FOURTH UNIVERSAL DEFINITIONS OF MYOCARDIAL INFARCTION. THE UPPER REFERENCE LIMIT (URL) OF TROPONIN, DEFINED THE 99TH PERCENTILE OF cTnI DISTRIBUTION IN A REFERENCE POPULATION, HAS BEEN CONFIRMED THE DECISION THRESHOLD FOR CA DIAGNOSIS.Performed By: #### CBC #### [facility] [address] [place] [address] Dr. Kelsea GuillermoXR CHEST 1 Von [id number] CHEST 1 VEXAMINATION: XR CHEST 1 V HISTORY: SHORTNESS OF BREATH COMPARISON: 05/13/2022 TECHNIQUE: AP erect FINDINGS: LUNGS: No significant pulmonary parenchymal abnormalities. VASCULATURE: No increased pulmonary vasculature. PLEURA: No pneumothorax, effusion, or pleural thickening. CARDIAC: No cardiomegaly or cardiac silhouette abnormality. MEDIASTINUM: No visible mass or adenopathy. BONES: No fracture or visible bone lesion. OTHER: Negative. IMPRESSION: No acute disease. Electronically authenticated by: MIKA MARI Date: 2022-10-30 20:10NoJ.W. Ruby Memorial HospitalPROTIMEon [id number] Coag (PPP) [Relative time]2.04 {INR} NormalThe [facility], IncComment on above:Performed By: #### CBC #### [facility] [address] [place] [address] Dr. Kelsea Niocle [facility] SYSTEME JACKSON MEDICAL CENTERNoJ.W. Ruby Memorial HospitalComment on above:Result Comment: DESIRED INR: 2.0 - 3.0 CONDITIONS NOT LISTED BELOW 2.5 - 3.5 FOR PROSTHETIC HEART VALVE REPLACEMENT 2.5 - 3.5 RECURRENT THROMBOSIS Performed By: #### CBC #### [facility] [address] [place] [address] Dr. Kelsea GuillermoPT Coag (PPP) [Time]21.0 sCritically high9.0-11.6The [facility] IncComment on above:Performed By: #### CBC #### [facility] [address] [place] [address] Dr. Kelsea Cheng ISIDRO 3-6on [id number] [Catalytic activity/Vol]62 U/L Ubagby97-433EqmPremier Health Miami Valley HospitalComment on above:Performed By: #### CMREP #### [facility] [address] [place] [address] Dr. Kelsea Corbin.MB [Mass/Vol]1.28 ng/mLNormal<=3.60[facility] Comment on above:Performed By: #### CMREP #### [facility] [address] [place] [address] Dr. Kelsea GuillermoHSTROP19.5 pg/mLNormal4.0-76.1[facility] HospitalCombeaumont hospital on above:Result Comment: CUT-OFF POINTS HAVE BEEN ESTABLISHED BASED ON THE FOURTH UNIVERSAL DEFINITIONS OF MYOCARDIAL INFARCTION. THE UPPER REFERENCE LIMIT (URL) OF TROPONIN, DEFINED THE 99TH PERCENTILE OF cTnI DISTRIBUTION IN A REFERENCE POPULATION, HAS BEEN CONFIRMED THE DECISION THRESHOLD FOR CA DIAGNOSIS.Performed By: #### CMREP #### [facility] [address] [place] [address] Dr. Kelsea GuillermoCT ABD/PELVIS WO CONon [id number] ABD/PELVIS WO CONSTUDY: CT abdomen pelvis noncontrast TECHNIQUE: Axial slices were obtained from [...] Electronically authenticated by: SARY RIGGS Date: 2022-05-13 22:51Licking Memorial HospitalLACTATE/LACTIC ACIDon [id number] [Moles/Vol]0.5 mmol/L Normal0.4-1.9The [facility], IncComment on above:Performed By: #### LACT #### [facility] [address] [address] [address] Kelsea Cheng ISIDRO ADMITon [id number] [Catalytic activity/Vol]71 U/L Uvzmfy95-214Qch [facility], IncComment on above:Performed By: #### CMP, CMADM #### [facility] [address] [place], [place] [address] Dr. Kelsea Corbin.MB [Mass/Vol]1.26 ng/mLNormal<=3.60The [facility] Comment on above:Performed By: #### CMP, CMADM #### [facility] [address] [address] [address] Kelsea GuillermoHSTROP17.5 pg/mLNormal4.0-76.1[facility] HospitalComment on above:Result Comment: CUT-OFF POINTS HAVE BEEN ESTABLISHED BASED ON THE FOURTH UNIVERSAL DEFINITIONS OF MYOCARDIAL INFARCTION. THE UPPER REFERENCE LIMIT (URL) OF TROPONIN, DEFINED THE 99TH PERCENTILE OF cTnI DISTRIBUTION IN A REFERENCE POPULATION, HAS BEEN CONFIRMED THE DECISION THRESHOLD FOR CA DIAGNOSIS.Performed By: #### CMP, CMADM #### [facility] [address] [address] [address] Kelsea FloresO115 ng/mLCritically lvzh30-56GqpPremier Health [facility] Valley HospitalComment on above:Performed By: #### CMP, CMADM #### [facility] [address] [place] [address] Dr. Kelsea Scott AUTO DIFFon [id number] #0.0 103/ulNormal0.0-0.1[facility] HospitalComment on above:Performed By: #### CBC #### [facility] [address] [address] [address] Kelsea GuillermoBasophils/100 WBC (Bld)0.5 %Normal0.2-2.0[facility] Comment on above:Performed By: #### CBC #### [facility] [address] [address] [address] Kelsea Morris #0.4 103/ulNormal0.0-0.7The [facility] IncComment on above: Performed By: #### CBC #### [facility] [address] [address] [address] Kelsea Mederososinophils/100 WBC (Bld)5.3 %Normal0.9-7.0The [facility] Comment on above:Performed By: #### CBC #### [facility] [address] [place] [address] Dr. Kelsea Mederosrythrocyte distribution width (RBC) [Ratio]14.0 %Ditdqe04.0-15.0 [facility] HospitalComment on above:Performed By: #### CBC #### [facility] [address] [place] [address] Dr. Kelsea GuillermoHematocrit (Bld) [Volume fraction]36.7 %Critically low42.0-54.0 The [facility], IncComment on above:Performed By: #### CBC #### [facility] [address] [place] [address] Dr. Kelsea GuillermoHemoglobin (Bld) [Mass/Vol]11.8 g/dLCritically low14.0-18.0The [facility] IncComment on above:Performed By: #### CBC #### [facility] [address] [place] [address] Dr. Kelsea Nix #0.09 10e3/ulCritically high0.00-0.03The [facility] Comment on above:Performed By: #### CBC #### [facility] [address] [place] [address] Dr. Kelsea Nix %1.2 %Critically high0.0-0.5The [facility] IncComment on above:Performed By: #### CBC #### [facility] [address] [place] [address] Dr. Kelsea Martel #1.6 103/ulNormal1.2-3.8The [facility] IncComment on above:Performed By: #### CBC #### [facility] [address] [place] [address] Dr. Kelsea Garyhocytes/100 WBC (Bld)21.9 %Fkttgw57.5-60.0[facility] HospitalComment on above:Performed By: #### CBC #### [facility] [address] [place] [address] Dr. Kelsea ReedUAL DIFF REQNONormalThe [facility], IncComment on above: Performed By: #### CBC #### [facility] [address] [place] [address] Dr. Kelsea Salomon (RBC) [Entitic mass]31.7 ihJotnou32.9-34.0The [facility] IncComment on above:Performed By: #### CBC #### [facility] [address] [place] [address] Dr. Kelsea Palacios (RBC) [Mass/Vol]32.2 g/vWVoruzr44.9-35.2The [facility] IncComment on above:Performed By: #### CBC #### [facility] [address] [place] [address] Dr. Kelsea Palacios (RBC) [Entitic vol]98.7 fLCritically high80.0-94.0The [facility] IncComment on above:Performed By: #### CBC #### [facility] [address] [place] [address] Dr. Kelsea Brown #0.7 103/ulNormal0.3-0.8The [facility], IncComment on above:Performed By: #### CBC #### [facility] [address] [place] [address] Dr. Kelsea Oliveiraocytes/100 WBC (Bld)9.4 %Normal1.7-12.0The [facility] Comment on above:Performed By: #### CBC #### [facility] [address] [place] [address] Dr. Kelsea Wilson #4.5 103/ulNormal1.4-6.5The [facility], IncComment on above:Performed By: #### CBC #### [facility] [address] [place] [address] Dr. Kelsea Luqueutrophils/100 WBC (Bld)61.7 %Wllljh77.0-75.0The [facility], IncComment on above:Performed By: #### CBC #### [facility] [address] [place] [address] Dr. Kelsea Longlet mean volume (Bld) [Entitic vol]9.3 fLCritically low 9.5-13.5The [facility], IncComment on above:Performed By: #### CBC #### [facility] [address] [place] [address] Dr. Kelsea GuillermoPLT207 103/qiNvdshm712-940WxdMount St. Mary Hospitalment on above: Performed By: #### CBC #### [facility] [address] [place] [address] Dr. Kelsea GuillermoRBC3.72 106/ulCritically low4.70-6.10The [facility], IncCombeaumont hospital on above:Performed By: #### CBC #### [facility] [address] [address] [address] Kelsea GuillermoWBC7.4 103/ulNormal4.0-11.0Mount [facility]. Mary Hospitalment on above: Performed By: #### CBC #### [facility] [address] [place] [address] Dr. Kelsea Mtz URINE PROFILEon 10-65-9360Raypajtqb Ql (U)NegativeNormal NEGATIVEPremier Health Miami Valley HospitalComment on above:Performed By: #### CBC #### [facility] [address] [place] [address] Dr. Kelsea Merazarity (U)CLEARNormalCLEARPremier Health Miami Valley HospitalComment on above: Performed By: #### CBC #### [facility] [address] [place] [address] Dr. Kelsea Salgado (U)LT[address] YELLOWNormalYELLOWWilson Street Hospital on above:Performed By: #### CBC #### [facility] [address] [place] [address] Dr. Kelsea Cortez micrscopic examination will be performed if indicated. NormalPremier Health Miami Valley HospitalComment on above:Performed By: #### CBC #### [facility] [address] [place] [address] Dr. Kelsea GuillermoGlucose Ql (U)NegativeNormalNEGATIVEMount St. Mary Hospitalment on above:Performed By: #### CBC #### [facility] [address] [place] [address] Dr. Kelsea GuillermoHemoglobin Ql (U)NegativeNormalNEGATIVEBlanchard Valley [facility] on above:Performed By: #### CBC #### [facility] [address] [place] [address] Dr. Kelsea Graham Ql (U)NegativeNormalNEGATIVEPremier Health Miami Valley HospitalComment on above:Performed By: #### CBC #### [facility] [address] [place] [address] Dr. Kelsea GuillermoLEUKOCYTESNegativeNormalNEGATIVEPremier Health Miami Valley HospitalComment on above:Performed By: #### CBC #### [facility] [address] [place] [address] Dr. Kelsea Troncosotrhossein Ql (U)NegativeNormalNEGATIVEThe [facility] HospitalComment on above:Performed By: #### CBC #### [facility] [address] [place] [address] Dr. Kelsea GuillermopH (U)5.5 [pH]Normal5-9The [facility], IncComment on above: Performed By: #### CBC #### [facility] [address] [place] [address] Dr. Kelsea GuillermoProtein (U) [Mass/Vol]30 mg/dLAbnormalNEGATIVE/ TRACEThe [facility], IncComment on above:Performed By: #### CBC #### [facility] [address] [place] [address] Dr. Kelsea GuillermoSPEC GRAVITY1.719Fhnkjg0.005-<=1.025The [facility], IncComment on above:Performed By: #### CBC #### [facility] [address] [place] [address] Dr. Kelsea Lopez MICRO INDNOT INDICATEDNoAvita Health System Galion Hospitale [facility], IncComment on above:Performed By: #### CBC #### [facility] [address] [place] [address] Dr. Kelsea Workmanbilinogen Qn (U)0.2 {Jennifer'U}/dLNormal0.2 - 1.0The [facility], IncComment on above:Performed By: #### CBC #### [facility] [address] [place] [address] Dr. Kelsea DailyCTATE/LACTIC ACIDon 52-65-4637Tubwpfx [Moles/Vol]0.8 mmol/L Normal0.4-1.9The [facility], IncComment on above:Performed By: #### CBC #### [facility] [address] [address] [address] Kelsea Bellamy 14(COMP METB)on 65-78-9487Rglxpce [Mass/Vol]3.7 g/dLNormal 3.4-5.0The [facility], IncComment on above:Performed By: #### CMP, CMADM #### [facility] [address] [address] [address] Kelsea GuillermoAlbumin/Globulin [Mass ratio]0.9 {ratio}NormalThe [facility], IncComment on above:Performed By: #### CMP, CMADM #### [facility] [address] [place] [address] Dr. Kelsea SelfP [Catalytic activity/Vol]133 U/LCritically jnqy28-798Kew [facility], IncComment on above:Performed By: #### CMP, CMADM #### [facility] [address] [address] [address] Kelsea Elkins [Catalytic activity/Vol]18 U/ZOpufvn86-62Aek [facility], IncComment on above:Performed By: #### CMP, CMADM #### [facility] [address] [place] [address] Dr. Kelsea Berry gap [Moles/Vol]12.5 mmol/LNormalThe [facility] Comment on above:Performed By: #### CMP, CMADM #### [facility] [address] [place] [address] Dr. Kelsea GuillermoAST [Catalytic activity/Vol]14 U/LCritically xtj94-16Iah [facility], IncComment on above:Performed By: #### CMP, CMADM #### [facility] [address] [place] [address] Dr. Kelsea GuillermoBilirubin [Mass/Vol]0.3 mg/dLNormal0.2-1.0The [facility] Comment on above:Performed By: #### CMP, CMADM #### [facility] [address] [address] [address] Kelsea GuillermoCalcium [Mass/Vol]9.0 mg/dLNormal8.5-10.1The [facility] Comment on above:Performed By: #### CMP, CMADM #### [facility] [address] [address] [address] Kelsea GuillermoChloride [Moles/Vol]102 mmol/DMdcdif69-823Ijm [facility] Comment on above:Performed By: #### CMP, CMADM #### [facility] [address] [place] [address] Dr. Kelsea GuillermoCO2 [Moles/Vol]27.7 mmol/IPthver02.0-32.0The [facility] Comment on above:Performed By: #### CMP, CMADM #### [facility] [address] [place] [address] Dr. Kelsea GuillermoCreatinine [Mass/Vol]1.83 mg/dLCritically high0.70-1.30The [facility], IncComment on above:Performed By: #### CMP, CMADM #### [facility] [address] [place] [address] Dr. Kelsea MederosGFR-AF TPSQFFLC95 mL/min/1.23l5Ceiakvfycj low>=60The [facility], IncComment on above:Performed By: #### CMP, CMADM #### [facility] [address] [place] [address] Dr. Kelsea MederosGFR-NON AF BDSKTBQO18 mL/min/1.36b6Xouhmeuawa low>=60The [facility], IncComment on above:Performed By: #### CMP, CMADM #### [facility] [address] [place] [address] Dr. Kelsea GuillermoGlobulin (S) [Mass/Vol]4.2 g/dLNormalThe [facility], IncComment on above:Performed By: #### CMP, CMADM #### [facility] [address] [place] [address] Dr. Kelsea GuillermoGlucose [Mass/Vol]101 mg/rPMqgzai41-302JtaPremier Health Miami [facility] Hospital Comment on above:Performed By: #### CMP, CMADM #### [facility] [address] [place] [address] Dr. Kelsea GuillermoPotassium [Moles/Vol]4.2 mmol/LNormal3.5-5.1[facility] Comment on above:Performed By: #### CMP, CMADM #### [facility] [address] [place] [address] Dr. Kelsea GuillermoProtein [Mass/Vol]7.9 g/dLNormal6.4-8.2The [facility] Comment on above:Performed By: #### CMP, CMADM #### [facility] [address] [place] [address] Dr. Kelsea GuillermoSodium [Moles/Vol]138 mmol/GPxuqgw111-750BicPremier Health [facility] Hospital Comment on above:Performed By: #### CMP, CMADM #### [facility] [address] [place] [address] Dr. Kelsea GuillermoUrea nitrogen [Mass/Vol]24.0 mg/dLCritically high7.0-18.0Prem[facility] HospitalComment on above:Performed By: #### CMP, CMADM #### [facility] [address] [place] [address] Dr. Kelsea Davis nitrogen/Creatinine [Mass ratio]13.1 mg/mgNormalThe [facility], IncComment on above:Performed By: #### CMP, CMADM #### [facility] [address] [place] [address] Dr. Kelsea GuillermoXR CHEST 1 Von [id number] CHEST 1 VEXAM: XR CHEST 1 V at 1957 hours HISTORY: Pain COMPARISON: 02/23/2021 TECHNIQUE: [...] Electronically authenticated by: DEVENDRA GUTIERREZ Date: 2022-05-13 20:48No[facility] 2 VWS WITH PELVISon [id number] LEFT 1 OR 2 VWS WITH PELVISWVUMedicine Harrison Community Hospital Department of Radiology [address] [place] [id number] Patient Name: NIELS MCCULLOUGH : 1945 [...] arthroplasty. Electronically signed: Mika Bolaños. Transcribed by: [email or web address], User Resident: Electronically Signed by: MIKA BOLAÑOS @ 02/18/2022 11:21 AMNormalThe [facility] HospitalComment on above:Order Comment: evaluate for AspirationBASIC METABOLIC PANELon 97-89-4076Ojfqbag [Mass/Vol]7.7 mg/dLLow 8.6-10.3The [facility] HospitalComment on above:Order Comment: No: Do not add to previous drawPerformed By: #### [id number] ####[facility] [place] [address], USAChloride [Moles/Vol]106 mmol/KNvlemi88-611Vpt [facility] HospitalComment on above:Order Comment: No: Do not add to previous drawPerformed By: #### [id number] ####[facility] [place] [address], USACO2 [Moles/Vol] 24 mmol/THjxtiz19-36Ugg [facility] HospitalComment on above: Order Comment: No: Do not add to previous drawPerformed By: #### [id number] ####[facility] [place] [address], [place] Creatinine [Mass/Vol]1.56 mg/dLHigh0.70-1.30The [facility] HospitalComment on above:Order Comment: No: Do not add to previous drawPerformed By: #### [id number] ####[facility] [place] [address], USAeGFR- Ncglcrlt82 ml/min/1.73sq mAbnormal>60The [facility] HospitalComment on above:Order Comment: No: Do not add to previous drawResult Comment: Calculation may not be valid for patients over 70 yearsPerformed By: #### [id number] ####[facility] [place] [address], USAeGFR- non- Nmvkjhrz66 ml/min/1.73sq m Abnormal>60The [facility] HospitalComment on above:Order Comment: No: Do not add to previous drawResult Comment: Calculation may not be valid for patients over 70 yearsPerformed By: #### 11071 ####[facility] [place] [address], USAGlucose [Mass/Vol] 104 mg/aNXgrl58-804Mlt [facility] HospitalComment on above:Order Comment: No: Do not add to previous drawPerformed By: #### [id number] ####[facility] [place] [address], USAPotassium [Moles/Vol]3.8 mmol/LNormal3.5-5.1The [facility] HospitalComment on above:Order Comment: No: Do not add to previous drawPerformed By: #### [id number] ####[facility] [place] [address], [place] Sodium [Moles/Vol]137 mmol/AFtvpdd918-944Oyo [facility] Comment on above:Order Comment: No: Do not add to previous drawPerformed By: #### [id number] ####[facility] [facility] [address], USAUrea nitrogen [Mass/Vol]27 mg/dLHigh7-25The [facility] HospitalComment on above:Order Comment: No: Do not add to previous draw Performed By: #### [id number] ####[facility] [place] [address], USACBC COMPLETE BLOOD COUNTon 43-91-9759Ulpfsdjccxe distribution width (RBC) [Ratio]14.5 %Rnkxql88.5-15.0The [facility] HospitalComment on above:Order Comment: LEFT HIP SCREW HEAD TISSUE Performed By: #### [id number] #### [facility] [address] [place] [address], USAHematocrit (Bld) [Volume fraction]24.7 %Low39.0-50.0The [facility] HospitalComment on above:Order Comment: LEFT HIP SCREW HEAD TISSUEPerformed By: #### [id number] #### [facility] [address] [place] [address], [facility] CARE CORPORATIONHemoglobin (Bld) [Mass/Vol]8.1 g/dLLow13.0-17.0The [facility] HospitalComment on above:Order Comment: LEFT HIP SCREW HEAD TISSUEPerformed By: #### [id number] #### [facility] [address] [place] [address], [facility]MONDH (RBC) [Entitic mass]32.5 upBuksev37.0-33.0The [facility] HospitalComment on above:Order Comment: LEFT HIP SCREW HEAD TISSUEPerformed By: #### [id number] #### [facility] [address] [place] [address], [facility] CARE CORPORATIONMCHC (RBC) [Mass/Vol]32.8 g/bKHvhjtj97.0-35.0The [facility] HospitalComment on above:Order Comment: LEFT HIP SCREW HEAD TISSUEPerformed By: #### [id number] #### [facility] [address] [place] [address], [facility] CORPORATIONMCV (RBC) [Entitic vol]99.2 oZVbmh23.0-98.0The [facility] HospitalComment on above:Order Comment: LEFT HIP SCREW HEAD TISSUEPerformed By: #### [id number] #### [facility] [address] [place] [address], USANucleated RBC/100 WBC (Bld) [Ratio]0 %Normal0-0The [facility] HospitalComment on above:Order Comment: LEFT HIP SCREW HEAD TISSUEPerformed By: #### [id number] #### [facility] [address] [place] [address], USAPLAT OFB315 10*3/oLFuaxhf411-676Lzh [facility] HospitalComment on above:Order Comment: LEFT HIP SCREW HEAD TISSUE Performed By: #### [id number] #### [facility] [address] [facility] [place] [id number], USARBC (Bld) [#/Vol]2.49 10*6/uLLow4.20-5.70The [facility] HospitalComment on above:Order Comment: LEFT HIP SCREW HEAD TISSUE Performed By: #### [id number] #### [facility] [address] [place] [id number], [facility] HEALTH CARE CORPORATIONWBC (Bld) [#/Vol]10.19 10*3/uLNormal4.00-10.60The [facility] HospitalComment on above:Order Comment: LEFT HIP SCREW HEAD TISSUEPerformed By: #### [id number] #### [facility] [address] [facility] [place] [address], [facility] CORPORATIONPROTHROMBIN TIMEon 23-10-4220WBR Coag (PPP) [Relative time] 1.25 {INR}High0.91-1.16The [facility] HospitalComment on above: Order Comment: LEFT HIP FLUID #2Result Comment: ACCCP RECOMMENDED INR FOR WARFARIN THERAPY ------- CONDITION INR PROPHYLAXIS OF VENOUS THROMBOSIS 2-3 (HIGH-RISK SURGERY) TREATMENT OF VENOUS THROMBOSIS 2-3 TREATMENT OF PULMONARY EMBOLISM 2-3 PREVENTION OF SYSTEMIC EMBOLISM: 2-3 ACUTE MYOCARDIAL INFARCTION TISSUE HEART VALVES VALVULAR HEART DISEASE ATRIAL FIBRILLATION RECURRENT SYSTEMIC EMBOLISM MECHANICAL HEART VALVE 2.5-3.5 FROM: ORAL ANTICOAGULANTS. MECHANISM OF ACTION, CLINICAL EFFECTIVENESS, AND OPTIMAL THERAPEUTIC RANGE. CHEST 1995;108:231S-246S.Performed By: #### [id number] #### [facility] [address] [place] [address], USAPT Coag (PPP) [Time]15.7 sHigh12.3-14.8The [facility] HospitalComment on above:Order Comment: LEFT HIP FLUID #2Result Comment: ALL RESULTS MUST BE INTERPRETED WITH RESPECT TO BLOOD DRAWING ARTIFACT OR DILUTION ERROR OF ANTICOAGULANT AT THE TIME OF SAMPLING.Performed By: #### [id number] #### [facility] [address] [place] [address], USABASIC METABOLIC PANELon 39-22-2522Cdbvisx [Mass/Vol]7.9 mg/dLLow8.6-10.3The [facility] HospitalComment on above:Order Comment: evaluate for AspirationPerformed By: #### [id number] ####[facility] [place] [address], USAChloride [Moles/Vol]104 mmol/XJvsreu09-782Orv [facility] HospitalComment on above:Order Comment: evaluate for AspirationPerformed By: #### 24249 ####[facility] [place] [address], [place] CO2 [Moles/Vol]27 mmol/PSwkknc29-66Pcj [facility] Comment on above:Order Comment: evaluate for AspirationPerformed By: #### [id number] ####[facility] [place] [address], [place] Creatinine [Mass/Vol]1.78 mg/dLHigh0.70-1.30The [facility] HospitalComment on above:Order Comment: evaluate for AspirationPerformed By: #### [id number] ####[facility] [place] [address], USAeGFR- Acktljrl20 ml/min/1.73sq mAbnormal>60The [facility] HospitalComment on above:Order Comment: evaluate for Aspiration Result Comment: Calculation may not be valid for patients over 70 yearsPerformed By: #### 54135 ####[facility] [facility] [address], USAeGFR- non- Tdglthpy82 ml/min/1.73sq mAbnormal>60 The [facility] HospitalComment on above:Order Comment: evaluate for AspirationResult Comment: Calculation may not be valid for patients over 70 yearsPerformed By: #### [id number] ####[facility] [facility] [address], USAGlucose [Mass/Vol]115 mg/nYNfgd08-453Hpu [facility] HospitalComment on above:Order Comment: evaluate for AspirationPerformed By: #### [id number] ####[facility] [facility] [place] [address], USAPotassium [Moles/Vol]3.6 mmol/LNormal3.5-5.1 The [facility] HospitalComment on above:Order Comment: evaluate for AspirationPerformed By: #### [id number] ####[facility] [facility] [address], USASodium [Moles/Vol]136 mmol/LNormal 136-145The [facility] HospitalComment on above:Order Comment: evaluate for AspirationPerformed By: #### [id number] ####[facility] [facility] [address], USAUrea nitrogen [Mass/Vol]35 mg/dL High7-25The [facility] HospitalComment on above:Order Comment: evaluate for AspirationPerformed By: #### 16511 ####[facility] [facility] [place] [address], USACBC W/DIFFon 69-71-7439LZW IMM GRANS0.1 10*3/uLNormal0.0-0.2The [facility] HospitalComment on above:Order Comment: No: Do not add to previous drawPerformed By: #### [id number] #### [facility] [address] [place] [address], USAABS NEUTROPHILS9.3 10*3/uLHigh1.6-7.6The [facility] HospitalComment on above:Order Comment: No: Do not add to previous drawPerformed By: #### 51554 #### [facility] [address] [place] [address], USABasophils (Bld) [#/Vol]0.0 10*3/uLNormal0.0-0.2The [facility] HospitalComment on above:Order Comment: No: Do not add to previous drawPerformed By: #### [id number] #### [facility] [address] [place] [address], USABasophils/100 WBC (Bld)0.3 %Normal0.0-1.0The [facility] HospitalComment on above:Order Comment: No: Do not add to previous drawPerformed By: #### 28665 #### [facility] [address] [facility] [place] [address], USAEosinophils (Bld) [#/Vol]0.1 10*3/uLNormal0.0-0.5The [facility] HospitalComment on above:Order Comment: No: Do not add to previous drawPerformed By: #### [id number] #### [facility] [address] [place] [address], USAEosinophils/100 WBC (Bld)0.4 %Normal0.0-6.0The [facility] HospitalComment on above:Order Comment: No: Do not add to previous drawPerformed By: #### [id number] #### [facility] [address] [place] [address], USAErythrocyte distribution width (RBC) [Ratio]14.6 %Normal 11.5-15.0The [facility] HospitalComment on above:Order Comment: No: Do not add to previous drawPerformed By: #### 11849 #### [facility] [address] [place] [address], USAHematocrit (Bld) [Volume fraction]25.3 %Low39.0-50.0The [facility] HospitalComment on above:Order Comment: No: Do not add to previous drawPerformed By: #### [id number] #### [facility] [address] [place] [address], USAHemoglobin (Bld) [Mass/Vol]8.3 g/dLLow13.0-17.0The [facility] HospitalComment on above:Order Comment: No: Do not add to previous drawPerformed By: #### [id number] #### [facility] [address] [place] [address], USAIMMATURE GRANS0.6 %Normal0.0-1.0The [facility] HospitalComment on above:Order Comment: No: Do not add to previous draw Performed By: #### [id number] #### [facility] [address] [place] [address], USALymphocytes (Bld) [#/Vol]1.3 10*3/uLNormal1.2-4.0The [facility] HospitalComment on above:Order Comment: No: Do not add to previous drawPerformed By: #### [id number] #### [facility] [address] [place] [address], USALymphocytes/100 WBC (Bld)10.8 %Low20.0-45.0The [facility] HospitalComment on above:Order Comment: No: Do not add to previous drawPerformed By: #### [id number] #### [facility] [address] [place] [address], USAMCH (RBC) [Entitic mass]31.8 hfNeyigv26.0-33.0The [facility] HospitalComment on above:Order Comment: No: Do not add to previous drawPerformed By: #### [id number] #### [facility] [address] [place] [address], USAMCHC (RBC) [Mass/Vol]32.8 g/sJKrcmvc69.0-35.0The [facility] HospitalComment on above:Order Comment: No: Do not add to previous drawPerformed By: #### [id number] #### [facility] [address] [place] [address], [facility] CORPORATIONMCV (RBC) [Entitic vol]96.9 gAUlduhi83.0-98.0The [facility] HospitalComment on above:Order Comment: No: Do not add to previous drawPerformed By: #### [id number] #### [facility] [address] [place] [address], USAMonocytes (Bld) [#/Vol]1.1 10*3/uLHigh0.1-1.0The [facility] [facility] HospitalComment on above:Order Comment: No: Do not add to previous drawPerformed By: #### [id number] #### [facility] [address] [place] [address], USAMONOS9.1 %Normal5.0-12.0The [facility] HospitalComment on above:Order Comment: No: Do not add to previous drawPerformed By: #### [id number] #### [facility] [address] [place] [address], USANeutrophils/100 WBC (Bld)78.8 %High40.0-72.0The [facility] HospitalComment on above:Order Comment: No: Do not add to previous drawPerformed By: #### 59062 #### [facility] [address] [place] [address], USANucleated RBC/100 WBC (Bld) [Ratio]0 %Normal0-0The [facility] HospitalComment on above:Order Comment: No: Do not add to previous drawPerformed By: #### 11949 #### [facility] [address] [place] [address], USAPLAT RKS724 10*3/nCIhjrca190-566Jtr [facility] HospitalComment on above:Order Comment: No: Do not add to previous draw Performed By: #### [id number] #### [facility] [address] [place] [address], USARBC (Bld) [#/Vol]2.61 10*6/uLLow4.20-5.70The [facility] HospitalComment on above:Order Comment: No: Do not add to previous drawPerformed By: #### [id number] #### [facility] [address] [place] [address], USAWBC (Bld) [#/Vol]11.78 10*3/uLHigh4.00-10.60The [facility] HospitalComment on above:Order Comment: No: Do not add to previous drawPerformed By: #### 78821 #### [facility] [address] [place] [address], USAPROTHROMBIN TIMEon [id number] Coag (PPP) [Relative time] 1.18 {INR}High0.91-1.16The [facility] HospitalComment on above: Order Comment: No: Do not add to previous drawResult Comment: ACCCP RECOMMENDED INR FOR WARFARIN THERAPY ------- CONDITION INR PROPHYLAXIS OF VENOUS THROMBOSIS 2-3 (HIGH-RISK SURGERY) TREATMENT OF VENOUS THROMBOSIS 2-3 TREATMENT OF PULMONARY EMBOLISM 2-3 PREVENTION OF SYSTEMIC EMBOLISM: 2-3 ACUTE MYOCARDIAL INFARCTION TISSUE HEART VALVES VALVULAR HEART DISEASE ATRIAL FIBRILLATION RECURRENT SYSTEMIC EMBOLISM MECHANICAL HEART VALVE 2.5-3.5 FROM: ORAL ANTICOAGULANTS. MECHANISM OF ACTION, CLINICAL EFFECTIVENESS, AND OPTIMAL THERAPEUTIC RANGE. CHEST 1995;108:231S-246S.Performed By: #### [id number] ####[facility] [place] [address], USAPT Coag (PPP) [Time]15.1 sHigh 12.3-14.8The [facility] HospitalComment on above:Order Comment: No: Do not add to previous drawResult Comment: ALL RESULTS MUST BE INTERPRETED WITH RESPECT TO BLOOD DRAWING ARTIFACT OR DILUTION ERROR OF ANTICOAGULANT AT THE TIME OF SAMPLING.Performed By: #### [id number] ####[facility] [place] [address], USAUA,MICROSCOPIC REQUIREDon 95-51-3615Pzuddibceg (U)SL CLOUDYAbnormal CLEARThe [facility] HospitalComment on above:Order Comment: No: Do not add to previous drawPerformed By: #### 76196 #### [facility] [address] [place] [address], USABilirubin Ql (U)NegativeNormalNEGATIVEThe [facility] HospitalComment on above:Order Comment: No: Do not add to previous drawPerformed By: #### [id number] #### [facility] [address] [place] [address], USAColor (U)YELLOWNormalYELLOWThe [facility] HospitalComment on above:Order Comment: No: Do not add to previous drawPerformed By: #### [id number] #### [facility] [address] [place] [address], USAEPISNONE SEENNormalFEW,OCC,NONE SEENThe [facility] HospitalComment on above:Order Comment: No: Do not add to previous drawPerformed By: #### [id number] #### [facility] [address] [place] [address], USAGlucose Ql (U)NegativeNormalNEGATIVEThe [facility] HospitalComment on above:Order Comment: No: Do not add to previous drawPerformed By: #### 79510 #### [facility] [address] [place] [address], USAHemoglobin Ql (U)SMALLAbnormalNEGATIVEThe [facility] HospitalComment on above:Order Comment: No: Do not add to previous drawPerformed By: #### 06639 #### [facility] [address] [place] [address], USAKETONENegativeNormalNEGATIVEThe [facility] HospitalComment on above:Order Comment: No: Do not add to previous draw Performed By: #### 53630 #### [facility] [address] [place] [address], USALEUK ESTERNegativeNormalNEGATIVEThe [facility] HospitalComment on above:Order Comment: No: Do not add to previous draw Performed By: #### 75052 #### [facility] [address] [place] [address], USANitrite Ql (U)NegativeNormalNEGATIVEThe [facility] HospitalComment on above:Order Comment: No: Do not add to previous drawPerformed By: #### [id number] #### [facility] [address] [place] [address], USApH (U)5.0 [pH]Normal5.0-8.0The [facility] HospitalComment on above:Order Comment: No: Do not add to previous drawPerformed By: #### [id number] #### [facility] [address] [place] [address], USAProtein Ql (U)30 mg/dLAbnormalNEGATIVEThe [facility] HospitalComment on above:Order Comment: No: Do not add to previous drawPerformed By: #### 05255 #### [facility] [address] [place] [address], USARBC3-5AbnormalNONE SEENThe [facility] HospitalComment on above:Order Comment: No: Do not add to previous drawPerformed By: #### 85922 #### [facility] [address] [place] [address], USASPEC GRAV1.825Kccmso7.015-1.020The [facility] HospitalComment on above:Order Comment: No: Do not add to previous draw Performed By: #### 87399 #### [facility] [address] [place] [address], USAWBC UA0-2AbnormalNONE SEENThe [facility] HospitalComment on above:Order Comment: No: Do not add to previous drawPerformed By: #### 82219 #### [facility] [address] [place] [address], [facility] CARE CORPORATIONAPTTon 19-56-5500cINV Coag (Bld) [Time]34.1 sNormal 25.0-35.0The [facility] HospitalComment on above:Order Comment: if not already doneNo: Do not add to previous drawResult Comment: ALL RESULTS MUST BE INTERPRETED WITH RESPECT TO BLOOD DRAWING ARTIFACT OR DILUTION ERROR OF ANTICOAGULANT AT THE TIME OF SAMPLING. THE APTT SHOULD NOT BE USED TO MONITOR UNFRACTIONATED HEPARIN THERAPY, THIS LABORATORY NO LONGER HAS AN ESTABLISHED THERAPEUTIC RANGE BASED ON THE APTT. IT IS RECOMMENDED THAT THE UFH - HEPARIN ASSAY (ANTI-XA ACTIVITY) BE USED FOR THIS PURPOSE.Performed By: #### 30405, [id number] ####[facility] [place] [address], [facility] BASIC METABOLIC PANELon 90-66-5807Slvuwga [Mass/Vol]8.2 mg/dLLow8.6-10.3The [facility] HospitalComment on above:Order Comment: evaluate for AspirationPerformed By: #### 22058 ####[facility] [place] [address], USAChloride [Moles/Vol]108 mmol/DXgyw80-975Dbz [facility] HospitalComment on above:Order Comment: evaluate for AspirationPerformed By: #### 41756 ####[facility] [place] [address], USACO2 [Moles/Vol]22 mmol/BQxdjuj10-26Cps [facility] HospitalComment on above:Order Comment: evaluate for AspirationPerformed By: #### 41102 ####[facility] [place] [address], USACreatinine [Mass/Vol]1.64 mg/dLHigh0.70-1.30 The [facility] HospitalComment on above:Order Comment: evaluate for AspirationPerformed By: #### 11207 ####[facility] [place] [address], USAeGFR- Eebedpvx97 ml/min/1.73sq mAbnormal>60The [facility] HospitalComment on above:Order Comment: evaluate for AspirationResult Comment: Calculation may not be valid for patients over 70 yearsPerformed By: #### 28507 ####[facility] [place] [address], USAeGFR- non- Fbzyvmek29 ml/min/1.73sq mAbnormal>60The [facility] Comment on above:Order Comment: evaluate for AspirationResult Comment: Calculation may not be valid for patients over 70 yearsPerformed By: #### 38655 ####[facility] [place] [address], [place] Glucose [Mass/Vol]145 mg/sXLhop47-552Pee [facility] Comment on above:Order Comment: evaluate for AspirationPerformed By: #### 22394 ####[facility] [place] [address], [place] Potassium [Moles/Vol]3.9 mmol/LNormal3.5-5.1The [facility] HospitalComment on above:Order Comment: evaluate for AspirationPerformed By: #### 24850 ####[facility] [place] [address], USASodium [Moles/Vol]137 mmol/PTufmse667-010Vli [facility] HospitalComment on above:Order Comment: evaluate for AspirationPerformed By: #### 25494 ####[facility] [address], USAUrea nitrogen [Mass/Vol]27 mg/dLHigh7-25The [facility] HospitalComment on above:Order Comment: evaluate for AspirationPerformed By: #### 88793 ####[facility] [place] [address], USAOperative Reporton [id number] ReportMR#: [id number] [facility] Pt. Name: Niels Mccullough Jr Room #: [id number] Discharge Date: Birthdate: 1945 OPERATIVE REPORT DATE OF SURGERY: 02/04/2022 SURGEON: Vineet Garza M.D. PRIMARY CARE PHYSICIAN: Thee Mcguire D.O. ASSISTANTS: 1. Pauilno Elliott M.D., resident orthopedic surgery. 2. first Kristen [...] blood loss requiring f (more content not included)...NormalThe [facility] HospitalPROTHROMBIN TIMEon 00-06-2030EBW Coag (PPP) [Relative time]1.27 {INR}High0.91-1.16The [facility] HospitalComment on above:Order Comment: if not already doneNo: Do not add to previous drawResult Comment: ACCCP RECOMMENDED INR FOR WARFARIN THERAPY ------- CONDITION INR PROPHYLAXIS OF VENOUS THROMBOSIS 2-3 (HIGH-RISK SURGERY) TREATMENT OF VENOUS THROMBOSIS 2-3 TREATMENT OF PULMONARY EMBOLISM 2-3 PREVENTION OF SYSTEMIC EMBOLISM: 2-3 ACUTE MYOCARDIAL INFARCTION TISSUE HEART VALVES VALVULAR HEART DISEASE ATRIAL FIBRILLATION RECURRENT SYSTEMIC EMBOLISM MECHANICAL HEART VALVE 2.5-3.5 FROM: ORAL ANTICOAGULANTS. MECHANISM OF ACTION, CLINICAL EFFECTIVENESS, AND OPTIMAL THERAPEUTIC RANGE. CHEST 1995;108:231S-246S.Performed By: #### 60045, 03811 ####[facility] [place] [address], [facility] CARE CORPORATIONPT Coag (PPP) [Time]15.9 s High12.3-14.8The [facility] HospitalComment on above:Order Comment: if not already doneNo: Do not add to previous drawResult Comment: ALL RESULTS MUST BE INTERPRETED WITH RESPECT TO BLOOD DRAWING ARTIFACT OR DILUTION ERROR OF ANTICOAGULANT AT THE TIME OF SAMPLING.Performed By: #### 55029, 91651 ####[facility]*ANAEROBIC CULTUREon 02-04-2022*ANAEROBIC CULTUREClinical Report: (D) Specimen/Source: TISSUE/INTRAOP SPEC Collected: 02/04/2022 17:29 Status: Final Last Updated: 02/09/2022 07:31 (1) LEFT HIP SCREW HEAD TISSUE CULT RES (Final) No Anaerobes Isolated 5 DaysNoProMedica Bay Park HospitalComment on above:Order Comment: No: Do not add to previous drawPerformed By: #### [id number] #### [facility] [address] [facility]. [address]*ANAEROBIC CULTUREClinical Report: (D) Specimen/Source: TISSUE/INTRAOP SPEC Collected: 02/04/2022 17:28 Status: Final Last Updated: 02/09/2022 07:31 (1) LEFT HIP NAIL HEAD CULT RES (Final) No Anaerobes Isolated 5 DaysNoProMedica Bay Park HospitalComment on above:Order Comment: LEFT HIP SCREW HEAD TISSUEPerformed By: #### 85112 #### [facility] [address] [place] [address], [facility]*ANAEROBIC CULTUREClinical Report: (D) Specimen/Source: FLUID/INTRAOP SPEC Collected: 02/04/2022 17:28 Status: Final Last Updated: 02/09/2022 07:31 (1) LEFT HIP FLUID #2 CULT RES (Final) No Anaerobes Isolated 5 DaysPremier HealthComment on above:Order Comment: LEFT HIP SCREW HEAD TISSUEPerformed By: #### [id number] #### [facility] [address] [place] [address], [facility]*ANAEROBIC CULTUREClinical Report: (D) Specimen/Source: FLUID/INTRAOP SPEC Collected: 02/04/2022 17:26 Status: Final Last Updated: 02/09/2022 07:31 (1) LEFT HIP FLUID #1 CULT RES (Final) No Anaerobes Isolated 5 DaysPremier HealthComment on above:Order Comment: LEFT HIP FLUID #2Performed By: #### [id number] #### [facility] [address] [place] [address], [facility]*ANAEROBIC CULTUREClinical Report: (D) Specimen/Source: TISSUE/INTRAOP SPEC Collected: 02/04/2022 17:25 Status: Final Last Updated: 02/09/2022 07:31 (1) LEFT HIP CULT RES (Final) No Anaerobes Isolated 5 DaysPremier HealthComment on above:Order Comment: No: Do not add to previous drawPerformed By: #### [id number] #### [facility] [address] [facility] [place] [address], [facility]*BODY FLUID CULTUREon 02-04-2022*BODY FLUID CULTUREClinical Report: (D) Specimen/Source: FLUID/INTRAOP SPEC Collected: 02/04/2022 17:28 Status: Final Last Updated: 02/09/2022 06:34 (1) LEFT HIP FLUID #2 GRAM (Final) Moderate Polys No Bacteria Seen CULT RES (Final) No Growth Day [address] [place], [place] [address]Comment on above: Order Comment: LEFT HIP FLUID #2Performed By: #### [id number] #### [facility] [address] [place] [address], [facility]*BODY FLUID CULTUREClinical Report: (D) Specimen/Source: FLUID/INTRAOP SPEC Collected: 02/04/2022 17:26 Status: Final Last Updated: 02/09/2022 06:34 (1) LEFT HIP FLUID #1 GRAM (Final) Moderate Polys No Bacteria Seen CULT RES (Final) No Growth Day 5NoProMedica Bay Park HospitalComment on above: Order Comment: LEFT HIP SCREW HEAD TISSUEPerformed By: #### [id number] #### [facility] [address] [place] [address], [facility]*FUNGAL CULTUREon 02-04-2022*FUNGAL CULTUREClinical Report: (D) Specimen/Source: TISSUE/INTRAOP SPEC Collected: 02/04/2022 17:29 Status: Final Last Updated: 04/10/2022 08:13 (1) LEFT HIP SCREW HEAD TISSUE FS (Final) No Yeast or Fungal Elements Seen CULT RES (Final) Culture negative for fungusPremier HealthComment on above:Order Comment: LEFT HIP SCREW HEAD TISSUEPerformed By: #### [id number] #### [facility] [address] [place] [address], [facility]*FUNGAL CULTUREClinical Report: (D) Specimen/Source: FLUID/INTRAOP SPEC Collected: 02/04/2022 17:28 Status: Final Last Updated: 04/10/2022 08:13 (1) LEFT HIP FLUID #2 FS (Final) No Yeast or Fungal Elements Seen CULT RES (Final) Culture negative for fungusPremier HealthComment on above:Order Comment: LEFT HIP FLUID #2Performed By: #### 44551 #### [facility] [address] [facility] [place] [address], [facility]*FUNGAL CULTUREClinical Report: (D) Specimen/Source: TISSUE/INTRAOP SPEC Collected: 02/04/2022 17:28 Status: Final Last Updated: 04/10/2022 08:13 (1) LEFT HIP NAIL HEAD FS (Final) No Yeast or Fungal Elements Seen CULT RES (Final) Culture negative for fungusPremier HealthComment on above:Order Comment: LEFT HIP SCREW HEAD TISSUEPerformed By: #### 53936 #### [facility] [address] [place] [address], [facility]*FUNGAL CULTUREClinical Report: (D) Specimen/Source: FLUID/INTRAOP SPEC Collected: 02/04/2022 17:26 Status: Final Last Updated: 04/10/2022 08:13 (1) LEFT HIP FLUID #1 FS (Final) No Yeast or Fungal Elements Seen CULT RES (Final) Culture negative for fungusPremier HealthComment on above:Order Comment: LEFT HIP FLUID #2Performed By: #### [id number] #### [facility] [address] [place] [address], [facility]*FUNGAL CULTUREClinical Report: (D) Specimen/Source: TISSUE/INTRAOP SPEC Collected: 02/04/2022 17:25 Status: Final Last Updated: 04/10/2022 08:13 (1) LEFT HIP FS (Final) No Yeast or Fungal Elements Seen CULT RES (Final) Culture negative for fungusPremier HealthComment on above:Order Comment: LEFT HIPPerformed By: #### [id number] #### [facility] [address] [place] [address], [facility]*TISSUE CULTUREon 02-04-2022*TISSUE CULTUREClinical Report: (D) Specimen/Source: TISSUE/INTRAOP SPEC Collected: 02/04/2022 17:29 Status: Final Last Updated: 02/09/2022 06:34 (1) LEFT HIP SCREW HEAD TISSUE GRAM (Final) Moderate Polys No Bacteria Seen CULT RES (Final) No Growth Day 5Premier HealthComment on above: Order Comment: LEFT HIP SCREW HEAD TISSUEPerformed By: #### [id number] #### [facility] [address] [place] [address], [facility]*TISSUE CULTUREClinical Report: (D) Specimen/Source: TISSUE/INTRAOP SPEC Collected: 02/04/2022 17:28 Status: Final Last Updated: 02/09/2022 06:33 (1) LEFT HIP NAIL HEAD GRAM (Final) Moderate Polys No Bacteria Seen CULT RES (Final) No Growth Day 5Premier HealthComment on above: Order Comment: LEFT HIP FLUID #2Performed By: #### 11610 #### [facility] [address]*TISSUE CULTUREClinical Report: (D) Specimen/Source: TISSUE/INTRAOP SPEC Collected: 02/04/2022 17:25 Status: Final Last Updated: 02/09/2022 06:33 (1) LEFT HIP GRAM (Final) Many Polys No Bacteria Seen CULT RES (Final) No Growth Day 5Premier HealthComment on above: Order Comment: LEFT HIP SCREW HEAD TISSUEPerformed By: #### [id number] #### [facility] [address] [place] [address], [facility] CORPORATIONAPTTon 04-92-1829pNXG Coag (Bld) [Time]43.4 sHigh25.0-35.0 The [facility] HospitalComment on above:Order Comment: No: Do not add to previous drawResult Comment: ALL RESULTS MUST BE INTERPRETED WITH RESPECT TO BLOOD DRAWING ARTIFACT OR DILUTION ERROR OF ANTICOAGULANT AT THE TIME OF SAMPLING. THE APTT SHOULD NOT BE USED TO MONITOR UNFRACTIONATED HEPARIN THERAPY, THIS LABORATORY NO LONGER HAS AN ESTABLISHED THERAPEUTIC RANGE BASED ON THE APTT. IT IS RECOMMENDED THAT THE UFH - HEPARIN ASSAY (ANTI-XA ACTIVITY) BE USED FOR THIS PURPOSE.Performed By: #### 12449, 24684 ####[facility] ARTERIAL BLOOD GAS W/COOXon 41-90-3992CHRW EXCESS-2 mmol/DEwudnn-1-5Nwc [facility] HospitalComment on above:Performed By: #### 38979 #### [facility] [address]COHB1.5 %Normal0.0-1.5The [facility] HospitalComment on above:Performed By: #### 94267 #### [facility] [address] [place] [address], USADELIVERY SYSTEMSOR [facility] Regional Medical CenterComment on above:Performed By: #### 81728 #### [facility] [address] [place] [address], USAHCO3 (Bld) [Moles/Vol]22 mmol/JDnyqml31-20Kiq [facility] HospitalComment on above:Performed By: #### 48883 #### [facility] [address] [facility] [place] [address], USAMETHB0.6 %Normal0.0-1.5The [facility] HospitalComment on above:Performed By: #### 24126 #### [facility] [address] [facility] [address], USAMODALITYOR [facility] Medical CenterComment on above:Performed By: #### 00600 #### [facility] [address] [facility] [place] [address], USAOxygen (Bld) [Partial pressure]203 mm[Hg]Critically high 83-108The [facility] HospitalComment on above:Performed By: #### 75150 #### [facility] [address] [facility] [place] [address], USAOxygen saturation in Blood97.8 %High94.0-97.0The [facility] HospitalComment on above:Performed By: #### 40434 #### [facility] [address] [facility] [place] [address], SCWPSN387 qeBkEriyzf17-19Vhw [facility] HospitalComment on above:Performed By: #### 31109 #### [facility] [address] [place] [address], USApH (Bld)7.41 [pH]Normal7.35-7.45The [facility] HospitalComment on above:Performed By: #### 52939 #### [facility] [address] [place] [address], YYHGIG57.0 g/dLLow12.0-16.3The [facility] HospitalComment on above:Performed By: #### 48007 #### [facility] [address] [place] [address], USABASIC METABOLIC PANELon 58-03-7731Ndvxope [Mass/Vol]8.6 mg/dLNormal8.6-10.3The [facility] HospitalComment on above:Order Comment: evaluate for AspirationPerformed By: #### 05946, 46730, 85986 ####[facility] [place] [address], [place] Chloride [Moles/Vol]106 mmol/EUemdhk37-948Tjd [facility] HospitalComment on above:Order Comment: evaluate for AspirationPerformed By: #### 63669, 40119, 13609 ####[facility] [place] [address], USACO2 [Moles/Vol]25 mmol/AXkgafj95-89Ucj [facility] HospitalComment on above:Order Comment: evaluate for Aspiration Performed By: #### 09681, 56820, 34338 ####[facility] [place] [address], USACreatinine [Mass/Vol]1.52 mg/dL High0.70-1.30The [facility] HospitalComment on above:Order Comment: evaluate for AspirationPerformed By: #### 05208, 34809, 73771 ####[facility] [place] [address], [place] eGFR- Bayppycu41 ml/min/1.73sq mAbnormal>60The [facility] HospitalComment on above:Order Comment: evaluate for AspirationResult Comment: Calculation may not be valid for patients over 70 yearsPerformed By: #### 02777, 63744, 42107 ####[facility] [place] [address], USAeGFR- non- Cylbgppx23 ml/min/1.73sq mAbnormal>60 The [facility] HospitalComment on above:Order Comment: evaluate for AspirationResult Comment: Calculation may not be valid for patients over 70 yearsPerformed By: #### 76500, 99677, 09246 ####[facility] [place] [address], USAGlucose [Mass/Vol]98 mg/dLNormal 70-100The [facility] HospitalComment on above:Order Comment: evaluate for AspirationPerformed By: #### 21135, 93434, 32781 ####[facility] [place] [address], USAPotassium [Moles/Vol]3.7 mmol/LNormal3.5-5.1The [facility] HospitalComment on above:Order Comment: evaluate for AspirationPerformed By: #### 81329, 54774, 11898 ####[facility] [place] [address], USASodium [Moles/Vol]139 mmol/MOrtivv161-210Znk [facility] HospitalComment on above:Order Comment: evaluate for AspirationPerformed By: #### 44786, 68581, 23985 ####[facility] [place] [address], USAUrea nitrogen [Mass/Vol]25 mg/dLNormal7-25The [facility] HospitalComment on above:Order Comment: evaluate for AspirationPerformed By: #### 26270, 63269, 16508 ####[facility] [place] [address], USACALCIUM IONIZED CBGLon 25-73-2537MNJRCZG CALCIUM1.11 mmol/LLow1.13-1.32The [facility] HospitalComment on above:Performed By: #### 19060 #### [facility] [address] [place] [address], [facility] CORPORATIONCBC COMPLETE BLOOD COUNTon 73-91-6780Mfvpmmlvvvz distribution width (RBC) [Ratio]14.4 %Pocpxp55.5-15.0The [facility] HospitalComment on above:Order Comment: LEFT HIP SCREW HEAD TISSUE Performed By: #### 03880 #### [facility] [address] [place] [address], USAHematocrit (Bld) [Volume fraction]34.1 %Low39.0-50.0The [facility] HospitalComment on above:Order Comment: LEFT HIP SCREW HEAD TISSUEPerformed By: #### 63404 #### [facility] [address] [facility] [place] [address], USAHemoglobin (Bld) [Mass/Vol]11.3 g/dLLow13.0-17.0The [facility] HospitalComment on above:Order Comment: LEFT HIP SCREW HEAD TISSUEPerformed By: #### 77332 #### [facility] [address] [facility] [place] [address], [facility]ARE CORPORATIONMCH (RBC) [Entitic mass]32.1 hgEwtter92.0-33.0The [facility] HospitalComment on above:Order Comment: LEFT HIP SCREW HEAD TISSUEPerformed By: #### [id number] #### [facility] [address] [facility] [place] [address], [facility]ARE CORPORATIONMCHC (RBC) [Mass/Vol]33.1 g/hQSmrcih02.0-35.0The [facility] HospitalComment on above:Order Comment: LEFT HIP SCREW HEAD TISSUEPerformed By: #### [id number] #### [facility] [address] [facility] [place] [place] [address], [facility] CARE CORPORATIONMCV (RBC) [Entitic vol]96.9 wOCujroe84.0-98.0The [facility] HospitalComment on above:Order Comment: LEFT HIP SCREW HEAD TISSUEPerformed By: #### [id number] #### [facility] [address] [place] [address], USANucleated RBC/100 WBC (Bld) [Ratio]0 %Normal0-0The [facility] HospitalComment on above:Order Comment: LEFT HIP SCREW HEAD TISSUEPerformed By: #### 50385 #### [facility] [address] [place] [address], USAPLAT SOI682 10*3/uEGefezk255-965Obk [facility] HospitalComment on above:Order Comment: LEFT HIP SCREW HEAD TISSUE Performed By: #### 90129 #### [facility] [address] [place] [address], USARBC (Bld) [#/Vol]3.52 10*6/uLLow4.20-5.70The [facility] HospitalComment on above:Order Comment: LEFT HIP SCREW HEAD TISSUE Performed By: #### [id number] #### [facility] [address] [place] [address], USAWBC (Bld) [#/Vol]8.15 10*3/uLNormal4.00-10.60The [facility] HospitalComment on above:Order Comment: LEFT HIP SCREW HEAD TISSUEPerformed By: #### 60863 #### [facility] [address] [place] [address], USAMAGNESIUM BLOODon 57-07-0852Zuqouklks [Mass/Vol]2.2 mg/dL Normal1.9-2.7The [facility] HospitalComment on above:Order Comment: evaluate for AspirationPerformed By: #### 57540, 32046, 01098 ####[facility] [place] [address], [place] PHOSPHORUS BLOODon 85-54-9597Jxhsyeujw [Mass/Vol]3.0 mg/dLNormal2.5-5.0The [facility] HospitalComment on above:Order Comment: No: Do not add to previous drawPerformed By: #### 42451, 45618, 86570 ####[facility] [facility] [place] [address], USAPOC GLUCOSE LABon 46-88-4527Kivlnqp [Mass/Vol]99 mg/gKTzwhgv97-334Mzb [facility] HospitalComment on above:Performed By: #### 36699 ####[facility] [facility] [place] [address], [facility] CORPORATIONPO SARS COV2 IDon [id number]-CoV-2 (COVID-19) RNA SHALA+probe Ql (Unsp spec)NegativeNormal NEGATIVEThe [facility] HospitalComment on above:Result Comment: ID NOW COVID-19 assay performed on the The [employer] NOW Instrument is a rapid molecular in [...] Waiver, Certificate of Compliance, or Certificate of Accreditation.Performed By: #### [id number] #### [facility] [address] [facility] [place] [place] [address], USAPORTABLE HIP LEFT 1 OR 2 VWS WITH PELVISon 02-04-2022 PORTABLE HIP LEFT 1 OR 2 VWS WITH PELVISUnSheltering Arms Hospital Department of Radiology [address] [place] [address] Patient Name: NIELS MCCULLOUGH : 1945 Sex: M Age: Race: White Pt. Location: [id number] Patient Status: I Ordered Date: 02/04/2022 8:00:00 [...] fracture Electronically signed: Nohemi Graves. Transcribed by: [email or web address], User Resident: Electronically Signed by: NOHEMI GRAVES @ 02/04/2022 09:32 [facility] Medical CenterComment on above:Order Comment: evaluate for AspirationPOTASSIUM WHOLE BLOOD CBGLon 55-62-1222Lbgkpbtnm [Moles/Vol]3.5 mmol/L Normal3.4-5.2The [facility] HospitalComment on above:Performed By: #### 07384 #### [facility] [address] [place] [address], USAPROTHROMBIN TIMEon 84-44-7565RBB Coag (PPP) [Relative time] 1.70 {INR}High0.91-1.16The [facility] HospitalComment on above: Order Comment: No: Do not add to previous drawResult Comment: ACCCP RECOMMENDED INR FOR WARFARIN THERAPY ------- CONDITION INR PROPHYLAXIS OF VENOUS THROMBOSIS 2-3 (HIGH-RISK SURGERY) TREATMENT OF VENOUS THROMBOSIS 2-3 TREATMENT OF PULMONARY EMBOLISM 2-3 PREVENTION OF SYSTEMIC EMBOLISM: 2-3 ACUTE MYOCARDIAL INFARCTION TISSUE HEART VALVES VALVULAR HEART DISEASE ATRIAL FIBRILLATION RECURRENT SYSTEMIC EMBOLISM MECHANICAL HEART VALVE 2.5-3.5 FROM: ORAL ANTICOAGULANTS. MECHANISM OF ACTION, CLINICAL EFFECTIVENESS, AND OPTIMAL THERAPEUTIC RANGE. CHEST 1995;108:231S-246S.Performed By: #### 67448, [id number] ####[facility] [facility] [place] [address], USAPT Coag (PPP) [Time]20.0 s High12.3-14.8The [facility] HospitalComment on above:Order Comment: No: Do not add to previous drawResult Comment: ALL RESULTS MUST BE INTERPRETED WITH RESPECT TO BLOOD DRAWING ARTIFACT OR DILUTION ERROR OF ANTICOAGULANT AT THE TIME OF SAMPLING.Performed By: #### 61041, 83160 ####[facility] [facility] [address], USAINR Coag (PPP) [Relative time]2.90 {INR}High0.91-1.16The [facility] HospitalComment on above:Order Comment: 12 hours post vitamin K administration/pre-procedure warfarin reversalNo: Do not addto previous draw Result Comment: [facility] RECOMMENDED INR FOR WARFARIN THERAPY ------- CONDITION INR PROPHYLAXIS OF VENOUS THROMBOSIS 2-3 (HIGH-RISK SURGERY) TREATMENT OF VENOUS THROMBOSIS 2-3 TREATMENT OF PULMONARY EMBOLISM 2-3 PREVENTION OF SYSTEMIC EMBOLISM: 2-3 ACUTE MYOCARDIAL INFARCTION TISSUE HEART VALVES VALVULAR HEART DISEASE ATRIAL FIBRILLATION RECURRENT SYSTEMIC EMBOLISM MECHANICAL HEART VALVE 2.5-3.5 FROM: ORAL ANTICOAGULANTS. MECHANISM OF ACTION, CLINICAL EFFECTIVENESS, AND OPTIMAL THERAPEUTIC RANGE. CHEST 1995;108:231S-246S.Performed By: #### 23062 ####[facility] [facility] [place] [address], USAPT Coag (PPP) [Time]30.1 sHigh 12.3-14.8The [facility] HospitalComment on above:Order Comment: 12 hours post vitamin K administration/pre-procedure warfarin reversalNo: Do not addto previous drawResult Comment: ALL RESULTS MUST BE INTERPRETED WITH RESPECT TO BLOOD DRAWING ARTIFACT OR DILUTION ERROR OF ANTICOAGULANT AT THE TIME OF SAMPLING.Performed By: #### 07799 ####[facility] [facility] [address], USARBC'S 1 UNITon [id number] INTERP [address] [place], [place] [address]Comment on above:Performed By: #### 99494 ####[facility] [place] [address], USAPRODUCT CODE 1 [id number] HealthComment on above:Performed By: #### 03975 ####[facility] [place] [address], USAPRODUCT STATUS 1RUniversity Hospitals Beachwood [facility] Comment on above:Result Comment: Result changed by IF on 02/08/2022 07:21. The previous value was XM.Performed By: #### 71039 ####[facility] [facility] [address], USAUNIT ABO [address] [place], [place] [address]Comment on above:Performed By: #### 02813 ####[facility] [place] [address], USAUNIT ID 1 [id number] HealthComment on above: Performed By: #### 63357 ####[facility] [facility] [address], USAUNIT RH 1NegaSouthview Medical CenterComment on above:Performed By: #### 17584 ####[facility] [place] [address], USASODIUM WHOLE BLOOD CBGLon 44-12-0905Ljuihk [Moles/Vol]136.0 mmol/NFqdxiz721.0-146.0The [facility] HospitalComment on above:Performed By: #### 24434 #### [facility] [address] [place] [address], USATYPE AND SCREENon 29-70-7839KZX INTERPRETATIONGreen Cross HospitalComment on above:Performed By: #### 42638 #### [facility] [address] [place] [address], USARH INTERPRETATIONNegativeNormalThe [facility] HospitalComment on above:Performed By: #### 75631 #### [facility] [address] [place] [address], [facility] CORPORATIONAPTTon 54-56-5848zAHI Coag (Bld) [Time]64.0 sHigh25.0-35.0 The [facility] HospitalComment on above:Result Comment: ALL RESULTS MUST BE INTERPRETED WITH RESPECT TO BLOOD DRAWING ARTIFACT OR DILUTION ERROR OF ANTICOAGULANT AT THE TIME OF SAMPLING. THE APTT SHOULD NOT BE USED TO MONITOR UNFRACTIONATED HEPARIN THERAPY, THIS LABORATORY NO LONGER HAS AN ESTABLISHED THERAPEUTIC RANGE BASED ON THE APTT. IT IS RECOMMENDED THAT THE UFH - HEPARIN ASSAY (ANTI-XA ACTIVITY) BE USED FOR THIS PURPOSE.Performed By: #### 66680, 14643 ####[facility] [place] [address], [facility] CBC W/DIFFon [id number] IMM GRANS0.0 10*3/uLNormal0.0-0.2The [facility] HospitalComment on above:Performed By: #### 31985 #### [facility] [address] [place] [address], [facility] CORPORATIONABS NEUTROPHILS5.8 10*3/uLNormal1.6-7.6The [facility] HospitalComment on above:Performed By: #### 17188 #### [facility] [address] [place] [address], [facility] CORPORATIONBasophils (Bld) [#/Vol]0.0 10*3/uLNormal0.0-0.2The [facility] HospitalComment on above:Performed By: #### 79306 #### [facility] [address] [place] [address], [facility] CORPORATIONBasophils/100 WBC (Bld)0.5 %Normal0.0-1.0The [facility] HospitalComment on above:Performed By: #### 79926 #### [facility] [address] [place] [address], USAEosinophils (Bld) [#/Vol]0.2 10*3/uLNormal0.0-0.5The [facility] HospitalComment on above:Performed By: #### 07624 #### [facility] [address] [place] [address], USAEosinophils/100 WBC (Bld)2.1 %Normal0.0-6.0The [facility] HospitalComment on above:Performed By: #### 51873 #### [facility] [address] [facility] [place] [address], USAErythrocyte distribution width (RBC) [Ratio]14.2 %Normal 11.5-15.0The [facility] HospitalComment on above:Performed By: #### 57201 #### [facility] [address] [facility] [place] [address], USAHematocrit (Bld) [Volume fraction]33.2 %Low39.0-50.0The [facility] HospitalComment on above:Performed By: #### 89319 #### [facility] [address] [facility] [place] [address], USAHemoglobin (Bld) [Mass/Vol]11.3 g/dLLow13.0-17.0The [facility] HospitalComment on above:Performed By: #### 73509 #### [facility] [address] [facility] [place] [address], USAIMMATURE GRANS0.4 %Normal0.0-1.0The [facility] HospitalComment on above:Performed By: #### 61717 #### [facility] [address] [facility] [place] [place] [address], USALymphocytes (Bld) [#/Vol]1.0 10*3/uLLow1.2-4.0The [facility] HospitalComment on above:Performed By: #### 68201 #### [facility] [address] [place] [address], USALymphocytes/100 WBC (Bld)12.6 %Low20.0-45.0The [facility] HospitalComment on above:Performed By: #### 24677 #### [facility] [address] [place] [address], [facility]MONDH (RBC) [Entitic mass]32.2 xhClhvez69.0-33.0The [facility] HospitalComment on above:Performed By: #### 05257 #### [facility] [address] [place] [address], [facility]ARE CORPORATIONMCHC (RBC) [Mass/Vol]34.0 g/bVUmzeze71.0-35.0The [facility] HospitalComment on above:Performed By: #### 07739 #### [facility] [address] [place] [address], [facility] CORPORATIONMCV (RBC) [Entitic vol]94.6 aHKrgbgg22.0-98.0The [facility] HospitalComment on above:Performed By: #### 78757 #### [facility] [address] [place] [address], USAMonocytes (Bld) [#/Vol]0.7 10*3/uLNormal0.1-1.0The [facility] HospitalComment on above:Performed By: #### 15851 #### [facility] [address] [place] [address], USAMONOS9.2 %Normal5.0-12.0The [facility] HospitalComment on above:Performed By: #### 47994 #### [facility] [address] [place] [address], [facility] CORPORATIONNeutrophils/100 WBC (Bld)75.2 %High40.0-72.0The [facility] HospitalComment on above:Performed By: #### 85521 #### [facility] [address] [place] [address], USANucleated RBC/100 WBC (Bld) [Ratio]0 %Normal0-0The [facility] HospitalComment on above:Performed By: #### 35396 #### [facility] [address] [place] [address], USAPLAT LFQ180 10*3/mIJatcbh272-355Awf [facility] HospitalComment on above:Performed By: #### 09613 #### [facility] [address] [place] [address], USARBC (Bld) [#/Vol]3.51 10*6/uLLow4.20-5.70The [facility] HospitalComment on above:Performed By: #### 94694 #### [facility] [address] [place] [address], USAWBC (Bld) [#/Vol]7.75 10*3/uLNormal4.00-10.60The [facility] HospitalComment on above:Performed By: #### 93883 #### [facility] [address] [place] [address], USACOMP METABOLIC PANELon 33-15-0665Frqutnp [Mass/Vol]3.7 g/dL Normal3.5-5.7The [facility] HospitalComment on above:Performed By: #### 22655 #### [facility] [address] [address], USAALKALINE GTPFUJ54 IU/HMljrrk33-953Lgv [facility] HospitalComment on above:Performed By: #### 65818 #### [facility] [address] [place] [address], USAALT [Catalytic activity/Vol]10 U/LNormal7-52The [facility] HospitalComment on above:Performed By: #### 69743 #### [facility] [address] [place] [address], USAAST [Catalytic activity/Vol]16 U/XGvshsp50-94Ptt [facility] HospitalComment on above:Performed By: #### 15323 #### [facility] [address] [place] [address], USABilirubin [Mass/Vol]0.6 mg/dLNormal0.3-1.0The [facility] HospitalComment on above:Performed By: #### 18130 #### [facility] [address] [place] [address], USACalcium [Mass/Vol]8.6 mg/dLNormal8.6-10.3The [facility] HospitalComment on above:Performed By: #### 66368 #### [facility] [address] [place] [address], USAChloride [Moles/Vol]103 mmol/PQlalqi87-555Yfs [facility] HospitalComment on above:Performed By: #### 53116 #### [facility] [address] [place] [address], USACO2 [Moles/Vol]27 mmol/PNrbhps64-74Brp [facility] HospitalComment on above:Performed By: #### 25002 #### [facility] [address] [place] [address], USACreatinine [Mass/Vol]1.62 mg/dLHigh0.70-1.30The [facility] HospitalComment on above:Performed By: #### 36087 #### [facility] [address] [place] [address], USAeGFR- Fcirmaup55 ml/min/1.73sq mAbnormal>60The [facility] HospitalComment on above:Result Comment: Calculation may not be valid for patients over 70 yearsPerformed By: #### 88809 #### [facility] [address] [place] [address], USAeGFR- non- Dbzsttkb53 ml/min/1.73sq mAbnormal>60The [facility] HospitalComment on above:Result Comment: Calculation may not be valid for patients over 70 yearsPerformed By: #### 77717 #### [facility] [address] [place] [address], USAGlucose [Mass/Vol]90 mg/hUHtbfqo77-970Ngj [facility] HospitalComment on above:Performed By: #### 29177 #### [facility] [address] [place] [address], USAPotassium [Moles/Vol]3.5 mmol/LNormal3.5-5.1The [facility] HospitalComment on above:Performed By: #### 05848 #### [facility] [address] [place] [address], USAProtein [Mass/Vol]6.6 g/dLNormal6.0-8.3The [facility] HospitalComment on above:Performed By: #### 17852 #### [facility] [address] [place] [address], USASodium [Moles/Vol]138 mmol/VKruejf946-769Tjo [facility] HospitalComment on above:Performed By: #### 92255 #### [facility] [address] [place] [address], USAUrea nitrogen [Mass/Vol]23 mg/dLNormal7-25The [facility] HospitalComment on above:Performed By: #### 57167 #### [facility] [address] [place] [address], USAPOC SARS COV2 ANTIGEN NEGATIVEon 80-79-3848RUY SARS COV2 ANTIGEN NEGNegativeNormalNEGATIVEThe [facility] HospitalComment on above:Result Comment: Negative results should be treated as presumptive and [...] antigen from SARS-CoV-2 in direct nasopharyngeal swab (ROUTE PROCESS ADMINISTRATOR) specimens from individuals who are suspected of [...] Waiver, Certificate of Compliance, or Certificate of Accreditation.Performed By: #### [id number] #### [address] [place] [address], USAPORTABLE CHEST 1 VIEWon 66-74-2137BJYROFLU CHEST 1 VIEW [facility] Department of Radiology [address] [place] [id number] Patient Name: NIELS MCCULLOUGH : 1945 Sex: M Age: Race: White Pt. Location: [facility] Patient Status: E Ordered Date: 02/03/2022 [...] failure. Electronically signed: Isidro Nieto. Transcribed by: [email or web address], User Resident: Electronically Signed by: ISIDRO NIETO @ 02/03/2022 08:48 AMNormalThe [facility] HospitalComment on above:Order Comment: evaluate for AspirationPROTHROMBIN TIMEon 75-34-3451YLK Coag (PPP) [Relative time]3.58 {INR} High0.91-1.16The [facility] HospitalComment on above:Order Comment: No: Do not add to previous drawResult Comment: [facility] RECOMMENDED INR FOR WARFARIN THERAPY ------- CONDITION INR PROPHYLAXIS OF VENOUS THROMBOSIS 2-3 (HIGH-RISK SURGERY) TREATMENT OF VENOUS THROMBOSIS 2-3 TREATMENT OF PULMONARY EMBOLISM 2-3 PREVENTION OF SYSTEMIC EMBOLISM: 2-3 ACUTE MYOCARDIAL INFARCTION TISSUE HEART VALVES VALVULAR HEART DISEASE ATRIAL FIBRILLATION RECURRENT SYSTEMIC EMBOLISM MECHANICAL HEART VALVE 2.5-3.5 FROM: ORAL ANTICOAGULANTS. MECHANISM OF ACTION, CLINICAL EFFECTIVENESS, AND OPTIMAL THERAPEUTIC RANGE. CHEST 1995;108:231S-246S.Performed By: #### [id number] ####[facility] [facility] [place] [address], USAPT Coag (PPP) [Time]35.4 sHigh 12.3-14.8The [facility] HospitalComment on above:Order Comment: No: Do not add to previous drawResult Comment: ALL RESULTS MUST BE INTERPRETED WITH RESPECT TO BLOOD DRAWING ARTIFACT OR DILUTION ERROR OF ANTICOAGULANT AT THE TIME OF SAMPLING.Performed By: #### 32388 ####[facility] [facility] [place] [address], USAINR Coag (PPP) [Relative time]3.62 {INR}High0.91-1.16The [facility] HospitalComment on above:Result Comment: [facility] RECOMMENDED INR FOR WARFARIN THERAPY ------- CONDITION INR PROPHYLAXIS OF VENOUS THROMBOSIS 2-3 (HIGH-RISK SURGERY) TREATMENT OF VENOUS THROMBOSIS 2-3 TREATMENT OF PULMONARY EMBOLISM 2-3 PREVENTION OF SYSTEMIC EMBOLISM: 2-3 ACUTE MYOCARDIAL INFARCTION TISSUE HEART VALVES VALVULAR HEART DISEASE ATRIAL FIBRILLATION RECURRENT SYSTEMIC EMBOLISM MECHANICAL HEART VALVE 2.5-3.5 FROM: ORAL ANTICOAGULANTS. MECHANISM OF ACTION, CLINICAL EFFECTIVENESS, AND OPTIMAL THERAPEUTIC RANGE. CHEST 1995;108:231S-246S.Performed By: #### 12985 #### [facility] [address] [place] [address], USAPT Coag (PPP) [Time]35.8 sHigh12.3-14.8The [facility] HospitalComment on above:Result Comment: ALL RESULTS MUST BE INTERPRETED WITH RESPECT TO BLOOD DRAWING ARTIFACT OR DILUTION ERROR OF ANTICOAGULANT AT THE TIME OF SAMPLING.Performed By: #### 99946 #### [facility] [address] [place] [address], USARBC'S 2 UNITSon [id number] INTERP 1CDayton Osteopathic HospitalComment on above:Performed By: #### 16684 ####[facility] [place] [address], [place] CROSSMATCH INTERP 2CDayton Osteopathic HospitalComment on above:Performed By: #### 93851 ####[facility] [place] [address], USAPRODUCT CODE [id number] Bay Park HospitalComment on above:Performed By: #### 49955 ####[facility] [place] [address], USAPRODUCT CODE 2 [id number] Bay Park HospitalComment on above:Performed By: #### 22829 ####[facility] [place] [address], USAPRODUCT STATUS 1RENoProMedica Bay Park Hospital Comment on above:Result Comment: Result changed by IF on 02/04/2022 19:14. The previous value was XM. Result changed by IF on 02/04/2022 20:42. The previous value was IS. Result changed by IF on 02/08/2022 07:21. The previous value was XM.Performed By: #### 31513 ####[facility] [place] [address], USAPRODUCT STATUS 2RUniversity Hospitals Beachwood Medical Center Comment on above:Result Comment: Result changed by IF on 02/04/2022 19:16. The previous value was XM.Performed By: #### 73416 ####[facility] [place] [address], USAUNIT ABO 1ONoProMedica Bay Park HospitalComment on above:Performed By: #### 01407 ####[facility] [place] [address], USAUNIT ABO 2O NormalOhio State East HospitalComment on above:Performed By: #### 09856 ####[facility] [place] [address], USAUNIT ID [id number] State East Hospital Comment on above:Performed By: #### 86137 ####[facility] [place] [address], USAUNIT ID [id number] Bay Park HospitalComment on above:Performed By: #### 35978 ####[facility] [facility] [place] [address], [place] UNIT RH 1NegaSouthview Medical CenterComment on above: Performed By: #### 98447 ####[facility] [facility] [place] [address], USAUNIT RH 2NegaSouthview Medical CenterComment on above:Performed By: #### 61675 ####[facility] [place] [address], USAUA w/Reflex Cultureon 14-80-0593Dsadlwtgsxf Acid,UrNegativeNormalNEGMercy University Hospitals St. John Medical CenterComment on above:Performed By: #### UAX, UMICAO ####[place] [address] [facility] [place] [address] Bilirubin, SemiQt,UrNegativeNormalNEG [facility], IncComment on above:Performed By: #### UAX, UMICAO ####[address] [place] [address] ColorYELLOWNormalYELMercy University Hospitals St. John Medical CenterComment on above:Performed By: #### UAX, UMICAO ####[address] [place] [address] Glucose,Semi-qnt,UrNegativeNormalNEGMercy [facility] Hospitals St. [facility] Comment on above:Performed By: #### UAX, UMICAO ####[address] [place] [address] Hemoglobin, UrNegative NormalNEGMerParkview Health Bryan HospitalComment on above:Performed By: #### UAX, UMICAO ####[address] [place] [phone] EsteraseNegativeNormalNEGMercy University Hospitals St. John Medical CenterCombeaumont hospital on above:Performed By: #### UAX, UMICAO ####[address] [place] [address] Nitrite,UrNegativeNormalNEGMercy University Hospitals St. John Medical CenterComment on above:Performed By: #### UAX, UMICAO ####[address] [place] [address] PH,Ur7.0Zmkfga9.0-8.0Mercy [facility] St. John Medical CenterComment on above:Performed By: #### UAX, UMICAO ####[address] [place] [address] Protein, Semi-qnt,UrNegativeNormalNEGMercy Stephens HospitalCombeaumont hospital on above:Performed By: #### UASylvia UMDEEPTHIO ####[address] [phone]. [place],Ur1.718Qppqyl5.000-1.030MerParkview Health Bryan HospitalComment on above:Performed By: #### ERIC KILGOREICAO ####[address] [id number] CLEARSelect Medical Specialty [facility], IncCombeaumont hospital on above:Performed By: #### DICK KILGOREO ####[address] [address] Urobilinogen,UrNormalNormalNORMSelect Medical [facility], IncCombeaumont hospital on above: Performed By: #### ALYSSIA KILGORE ####[address] [address] CommentNOT REPORTEDNormalMerParkview Health Bryan HospitalCombeaumont hospital on above:Performed By: #### DICK KILGOREO ####[address] [phone],Microon 08-19-2018-----NormalSelect Medical Specialty [facility], IncCombeaumont hospital on above:Performed By: #### ERIC KILGOREICAO ####[address] [id number]ercTrinity Health SystemCom[facility] on above:Performed By: #### MOONXERICICAO ####[address] [phone] cells0 TO 2NormalSelect Medical Specialty Hospital - Boardman, IncComment on above:Performed By: #### ERIC KILGOREICAO ####[address] [phone] Test strip #/vol (U)0 TO 2NormalMercy University Hospitals St. John Medical CenterCombeaumont hospital on above:Performed By: #### UAX, UMICAO ####[address] [phone] WBC's0 TO 2NormalMercy University Hospitals St. John Medical CenterComment on above: Performed By: #### UAX, UMICAO ####[address] [phone] SedimentNOT REPORTEDNormalNONEMeSamaritan North Health CenterCombeaumont hospital on above:Performed By: #### UAX, UMICAO ####[address] [phone] REPORTEDNormalMercy University Hospitals St. John Medical CenterComment on above:Performed By: #### MAGUI, UMICAO ####[address] [phone] REPORTEDNormalNONEMercy University Hospitals St. John Medical CenterCombeaumont hospital on above: Performed By: #### UAX, UMICAO ####[address] [phone], RenalNOT UHELBUFCCkskpf7Ctgfk Stephens HospitalComment on above:Performed By: #### UAX, UMICAO ####[address] [phone] StrandsNOT REPORTEDNormalNONEMeSamaritan North Health CenterCombeaumont hospital on above:Performed By: #### UAX, UMICAO ####[address] [phone] ObservationsNOT REPORTEDNormalNREQMercy Stephens HospitalComment on above:Performed By: #### UAX, UMICAO ####[facility] [facility] [place] [address] TrichomonasNOT REPORTED NormalNONEMercBarnesville Hospital HospitalComment on above:Performed By: #### MAGUI, ALYSSIA ####[facility] [facility] [place] [phone] REPORTEDNormalNONEMercBarnesville Hospital HospitalComment on above: Performed By: #### ALYSSIA KILGORE ####[facility] [facility] [place] [address] Acetaminophenon 65-16-5150Fmvvlzsqlukdl mass conc<8Cnb62-58Xnsec [facility] HospitalComment on above:Performed By: #### ABA STUART, BMP ####[address] [place] [address] CBC with Diffon [id number]. Basophil0.03 k/uLNormal0.00-0.20MerUniversity Hospitals Samaritan Medical Center HospitalComment on above:Performed By: #### ABA STUART, BMP ####[address] [place] [address] Abs.Imm.Granulocyte<0.03 Normal0.00-0.30MerUniversity Hospitals Samaritan Medical Center HospitalComment on above:Performed By: #### SADE, CDP, BMP ####[address] [place] [phone].Neutrophil (Seg)3.19 k/uLNormal1.50-8.10MerUniversity Hospitals Samaritan Medical Center HospitalComment on above:Performed By: #### SADE, CDP, BMP ####[address] [place] [address] Basophils/100 WBC Auto (Bld)1 %Normal 0-2[facility] HospitalComment on above:Performed By: #### TSH, CDP, BMP ####[address] [place] [address] Eosinophils Auto #/vol (Bld)0.17 10*3/uLNormal0.00-0.44[facility] Comment on above:Performed By: #### SADE, CDP, BMP ####[address] [place] [address] Eosinophils/100 WBC Auto (Bld)3 % Normal1-4[facility] HospitalComment on above:Performed By: #### SADE, CDP, BMP ####[address] [place] [address] Erythrocyte distribution width Auto Ratio (RBC)12.6 %Oyophn80.8-14.4[facility] HospitalComment on above:Performed By: #### ABA STUART, BMP ####[address] [place] [address] Hematocrit Auto Volume Fraction (Bld)39.4 %Low40.7-50.3MercKettering Memorial Hospital HospitalComment on above:Performed By: #### ABA STUART, BMP ####[address] [place] [address] Hemoglobin mass conc (Bld)13.5 g/zNLuwtoq50.0-17.0[facility] HospitalComment on above:Performed By: #### SADE, CDP, BMP ####[address] [place] [address] Immature granulocytes #/vol (Bld)0 %Paayxa9GrooqCincinnati Shriners HospitalComment on above:Performed By: #### SADE, CDP, BMP ####[address] [place] [address] Lymphocytes Auto #/vol (Bld)1.54 10*3/uLNormal1.10-3.70[facility] HospitalComment on above:Performed By: #### TSH, CDP, BMP ####[address] , [place] [address] Lymphocytes/100 WBC Auto (Bld)28 %Docwae96-17Qlfyw [facility] HospitalComment on above:Performed By: #### TSH, CDP, BMP ####[address] , [place] [address] MCH Auto Entitic mass (RBC)33.4 pxLtljef23.2-33.5[facility] HospitalComment on above:Performed By: #### TSH, CDP, BMP ####[address] [place] [address] MCHC Auto mass conc (RBC)34.3 g/aSXacoao28.4-34.8MerUniversity Hospitals Samaritan Medical Center HospitalComment on above:Performed By: #### TSH, CDP, BMP ####[address] [place] [address] MCV Auto Entitic volume (RBC)97.5 eQKxqeng29.6-102.9[facility] HospitalComment on above:Performed By: #### SADE, CDP, BMP ####[address] , [place] [address] Monocytes Auto #/vol (Bld)0.66 10*3/uLNormal0.10-1.20[facility] HospitalComment on above: Performed By: #### TSH, CDP, BMP ####[address] [place] [address] Monocytes/100 WBC Auto (Bld)12 %Normal3-12[facility] HospitalComment on above:Performed By: #### TSH, CDP, BMP ####[address] [place] [address] Neutrophil (Seg) 56 %Bfekez98-60Zcrer [facility] HospitalComment on above:Performed By: #### TSH, CDP, BMP ####[address] [place] [phone] Automated0.0 per 100 WBCNormal0.0[facility] HospitalComment on above:Performed By: #### TSH, CDP, BMP ####[address] [place] [phone] Platelet mean volume Auto Entitic volume (Bld) 8.7 fLNormal8.1-13.5[facility] HospitalComment on above:Performed By: #### TSH, CDP, BMP ####[address] [place] [address] Platelets Auto #/vol (Bld)163 10*3/jBImjsxb366-933Mgexo [facility] HospitalComment on above:Performed By: #### SADE, CDP, BMP ####[address] [place] [address] RBC Auto #/vol (Bld)4.04 10*6/uLLow4.21-5.77MerUniversity Hospitals [facility] Center HospitalComment on above:Performed By: #### SADE, ABA, BMP ####[address] [place] [address] WBC Auto #/vol (Bld)5.6 10*3/uLNormal3.5-11.3[facility] HospitalComment on above:Performed By: #### TSH, CDP, BMP ####[address] [place] [address] Auto Diff PerformedNOT REPORTEDNormalTrihealth [facility] HospitalComment on above:Performed By: #### TSH, CDP, BMP ####[address] [place] [address] Platelets Auto #/vol (Bld)NOT REPORTEDNormalTrihealth [facility] HospitalComment on above:Performed By: #### TSH, CDP, BMP ####[address] [place] [address] RBC morphology finding Nom (Bld)NOT REPORTED [facility] HospitalComment on above:Performed By: #### ABA STUART, BMP ####[address] [place] [address] WBC MorphologyNOT REPORTEDNormalCincinnati Shriners HospitalComment on above:Performed By: #### ABA STUART, BMP ####[address] , [facility]83 Comp Metabolic Profon 08-16-2018(cont.)NormalCincinnati Shriners HospitalComment on above:Result Comment: Average GFR for 70 or more years old: 75 mL/min/1.73sq mChronic Kidney Disease: <60 mL/min/1.73sq mKidney failure: <15 mL/min/1.73sq meGFR calculated using average adult body mass. Additional eGFR calculator available at:http://www.EVRGR/multiple_crcl_2012.htmPerformed By: #### ABA STUART, BMP ####[address] [place] [address] Albumin mass conc4.0 g/dLNormal3.5-5.2MOhio State East Hospital Comment on above:Performed By: #### ABA STUART, BMP ####[address] [place] [address] Albumin/Globulin mass ratio1.7 {ratio}Normal1.0-2.5[facility] HospitalComment on above:Performed By: #### ABA STUART, BMP ####[address] [place] [address] Alkaline Phos71 U/SSsyljf03-912MzzdrCincinnati Shriners HospitalComment on above:Performed By: #### SADE, ABA, BMP ####[address] [place] [address] ALT enzyme act/vol10 U/LNormal5-41[facility] HospitalComment on above:Performed By: #### TSH, CDP, BMP ####[address] [place] [address] Anion gap 3 molar conc10 mmol/LNormal9-17[facility] HospitalComment on above:Performed By: #### TSH, CDP, BMP ####[address] [place] [phone] enzyme act/vol14 U/LNormal<40[facility] HospitalComment on above: Performed By: #### TSH, CDP, BMP ####[address] [place] [address]([facility])[phone] Ql (U)0.57 mg/dLNormal0.3-1.2[facility] HospitalComment on above:Performed By: #### SADE, ABA, BMP ####[address] [place] [address]([facility])[phone]/CRE Ratio9 Normal9-20[facility] HospitalComment on above:Performed By: #### SADE, CDP, BMP ####[address] [place] [address] Calcium mass conc8.9 mg/dLNormal8.6-10.4MerUniversity Hospitals [facility] HospitalComment on above: Performed By: #### TSH, CDP, BMP ####[address] [place] [address] Chloride molar conc95 mmol/OEkq91-508Elbax [facility]iffin HospitalComment on above:Performed By: #### TSH, CDP, BMP ####[address] [place] [address]([facility])[phone] molar conc29 mmol/IGpdsml55-94Gfjxo [facility] HospitalComment on above:Performed By: #### TSH, CDP, BMP ####[address] [place] [phone] mass conc1.42 mg/dLHigh0.70-1.20[facility] HospitalComment on above:Performed By: #### ABA STUART, BMP ####[address] [place] [address] GFR, Amer60 mL/minLow>60[facility] HospitalComment on above:Performed By: #### ABA STUART, BMP ####[address] [place] [address] GFR,non Amer49 mL/minLow>60[facility] HospitalComment on above:Performed By: #### ABA STUART, BMP ####[address] [place] [address] Glucose mass urxe636 mg/dQYacm97-00OsvtzOhio State East HospitalComment on above: Performed By: #### ABA STUART, BMP ####[address] [place] [address] Potassium molar conc4.0 mmol/LNormal3.7-5.3MOhio State East HospitalComment on above:Performed By: #### ABA STUART, BMP ####[address] [place] [address] Protein mass conc 6.4 g/dLNormal6.4-8.3MOhio State East HospitalComment on above:Performed By: #### ABA STUART, BMP ####[address] [place] [address] Sodium molar vrcb998 mmol/KYpp130-366XhzkyCincinnati Shriners Hospital Comment on above:Performed By: #### ABA STUART, BMP ####[address] [place] [address] Staging:NormalCincinnati Shriners Hospital Comment on above:Result Comment: Stage 1: Some kidney damage normal GFRStage 2: Mild kidney damage GFR 60-89Stage 3:Moderate kidney damage GFR 30-59Stage 4: Severe kidney damage GFR 15-29Stage 5: Severe kidney damage GFR <15ESRD - chronic treatment by dialysis or transplantPerformed By: #### ABA STUART, BMP ####[address] , [place] [address] Urea nitrogen mass conc13 mg/dLNormal8-23[facility] HospitalComment on above: Performed By: #### TSH, CDP, BMP ####[address] , [place] [address] Drug Scr, Abuse, Uron 08-16-2018 Amphetamine(s),UrNegativeNormalNEGMercy East Granby HospitalComment on above: Performed By: #### ABA STUART, BMP ####[address] , [place] [address] Barbiturate(s),UrNegativeNormalNEGMercy East Granby HospitalComment on above:Performed By: #### ABA STUART, BMP ####[address] , [place] [address] Base excess Calculated molar conc (Bld)NegativeNormalNEGTrihealth Mccullough-Hyde Memorial Hospital HospitalComment on above:Performed By: #### SADE, CDP, BMP ####[address] , [place] [address] Benzodiazepine(s)PositiveAbnormalNEGTrihealth Mccullough-Hyde Memorial Hospital Hospital Comment on above:Performed By: #### TSH, CDP, BMP ####[address] , [place] [address] Buprenorphrine, UrNegativeNormalNEG [facility] HospitalComment on above:Performed By: #### TSH, CDP, BMP ####[address] [place] [address] Cannabinoid(s),UrNegativeNormalNEGMercy East Granby HospitalComment on above: Performed By: #### TSH, CDP, BMP ####[address] [place] [address] Methadone Ql (U)NegativeNormalNEGMercy East Granby HospitalComment on above:Performed By: #### TSH, CDP, BMP ####[address] [place] [address] Methamphetamine, Ur NegativeNormalNEGMercy East Granby HospitalComment on above:Performed By: #### TSH, CDP, BMP ####[address] [place] [phone](s), UrNegativeNormalNEGMercy East Granby HospitalComment on above: Performed By: #### TSH, CDP, BMP ####[address] [place] [address] Oxycodone, UrineNegativeNormalNEGMercy East Granby HospitalComment on above:Performed By: #### TSH, CDP, BMP ####[address] [place] [address] Phencyclidine, Ur NegativeNormalNEGMercy East Granby HospitalComment on above:Performed By: #### TSH, CDP, BMP ####[address] [place] [phone],UrineNegativeNormalNEGMercy East Granby HospitalComment on above: Performed By: #### TSH, CDP, BMP ####[address] [place] [phone] Tricyclic antidepressants Screen Ql (U)Negative NormalNEGMercy East Granby HospitalComment on above:Result Comment: Drug screen results are to be used for medical purposes only. All positive results are unconfirmed. Testing for employment or legal uses should be sent to a reference laboratory for confirmation.Performed By: #### TSH, CDP, BMP ####[address] [place] [address] Interpretive InfoNOT REPORTEDNormalMercy East Granby HospitalComment on above:Performed By: #### TSH, CDP, BMP ####[employer] [address] [place] [address] MDMA, UrineNOT REPORTEDNormalNEGMercy East Granby HospitalComment on above:Performed By: #### TSH, CDP, BMP ####[facility] [address] [place] [address] ED Noteon [id number] IP Note OR TranscriptionNormalMercy East Granby HospitalHIM IP Note OR TranscriptionNormalMercy East Granby HospitalHI IP Note OR TranscriptionNormalMercy East Granby HospitalHI IP Note OR Casting Assistant NormalMercy East Granby HospitalHI IP Note OR TranscriptionNormalMercy East Granby HospitalHI IP Note OR TranscriptionNormalMercy East [facility] HospitalHI IP Note OR TranscriptionNormalMercy East Granby HospitalHI IP Note OR TranscriptionNormalMercy East Granby HospitalHI IP Note OR TranscriptionNormalMercy East [facility]by HospitalHI IP Note OR TranscriptionNormalMercy East [facility]by HospitalHI IP Note OR Casting Assistant NormalMercy East Granby HospitalHI IP Note OR TranscriptionNormalMercy East Granby HospitalHI IP Note OR TranscriptionNormalMercy East Granby HospitalHI IP Note OR TranscriptionNormalMercy East Granby HospitalHI IP Note OR TranscriptionNormalMercy East Granby HospitalHI IP Note OR TranscriptionNormalMercy East Granby HospitalHI IP Note OR TranscriptionNormalMercy East Granby HospitalHI IP Note OR Casting Assistant NormalMercy East Granby HospitalHI IP Note OR TranscriptionNormalMercy East Granby HospitalED Provider Noteon [id number] IP Note OR TranscriptionNormalMercy East Granby HospitalEthanol Alcoholon 50-70-4115Tsloihg mass concmg/dLNormal<10[facility] HospitalComment on above:Performed By: #### TSH, CDP, BMP ####[employer] [address] [place] [address] Ethanol percent <0.010NormalMercy East Granby HospitalComment on above:Performed By: #### TSH, CDP, BMP ####[address] [place] [address] Salicylateon 34-05-0893Vlfeuwztpl<9Ybp9-20RquxgCincinnati Shriners HospitalComment on above: Performed By: #### TSH CDP, BMP ####[address] [place] [address] Thyroid Stim. Horm.on 27-97-3381Qbfnififeec Qn 0.80 m[IU]/LNormal0.30-5.00[facility] HospitalComment on above:Performed By: #### ABA STUART, BMP ####[address] [place] [address] Thyroxine, Freeon 19-80-1832Axyeouyec, Free1.43 ng/dLNormal 0.93-1.70[facility] HospitalComment on above:Performed By: #### ABA STUART, BMP ####[address] [place] [address] Urinalysis w/ Microon 08-16-2018-----NormalTrihealth Mccullough-Hyde [facility] HospitalComment on above:Performed By: #### ABA STUART, BMP ####[address] [place] [address] Acetaminophen mass concNegativeNormalNEGTrihealth Mccullough-Hyde Memorial Hospital HospitalComment on above:Performed By: #### TSH, CDP, BMP ####[address] [place] [address] BacteriaTRACE AbnormalNONEMercKettering Memorial Hospital HospitalComment on above:Performed By: #### TSH, CDP, BMP ####[address] [place] [phone] Bilirubin, SemiQt,UrNegativeNormalNEGTrihealth Mccullough-Hyde Memorial Hospital HospitalComment on above: Performed By: #### TSH, CDP, BMP ####[address] [place] [address] ColorYELLOWNormalYELMercy East Granby HospitalComment on above:Performed By: #### TSH, CDP, BMP ####[address] [place] [address] Epithelial cells0 TO 1Nlnkmh3-9Nrkbs [facility] [place] HospitalComment on above:Performed By: #### TSH, CDP, BMP ####[address] , [place] [address] Glucose,Semi-qnt,UrNegativeNormalNEGMercy East Granby HospitalComment on above: Performed By: #### TSH, CDP, BMP ####[address] [place] [address] Hemoglobin, UrNegativeNormalNEGMercy East Granby HospitalComment on above:Performed By: #### TSH, CDP, BMP ####[address] [place] [address] Leuckocyte Esterase NegativeNormalNEGMercy East Granby HospitalComment on above:Performed By: #### TSH, CDP, BMP ####[address] [place] [address]([facility])45 5-7000Nitrite,UrNegativeNormalNEGMercy East Granby HospitalComment on above:Performed By: #### TSH, CDP, BMP ####[address] [place] [address] PH,Ur7.7Zjebuq9.0-9.0MerUniversity Hospitals Samaritan Medical Center HospitalComment on above: Performed By: #### TSH, CDP, BMP ####[address] [place] [address]([facility])[phone] mass concNegativeNormalNEGMerUniversity Hospitals Samaritan Medical Center HospitalComment on above:Performed By: #### TSH, CDP, BMP ####[address] [place] [address] RBC Test strip #/vol (U) 0 TO 0Itmjno5-6Hckcm [facility] [place] HospitalComment on above:Performed By: #### TSH, CDP, BMP ####[address] [place] [phone]. [place],Ur<1.230Bmf0.010-1.020[facility] HospitalComment on above: Performed By: #### TSH, CDP, BMP ####[address] [place] [address] TurbidityCLEARNormalCLEARCincinnati Shriners Hospital Comment on above:Performed By: #### TSH, CDP, BMP ####[address] [place] [address]([facility])[phone] WBC's0 TO 1Csdkuk1-0Ytcji [facility] HospitalComment on above:Performed By: #### TSH, CDP, BMP ####[address] [place] [address]([facility])[phone],Ur NormalNormalNORMTrihealth Mccullough-Hyde Memorial Hospital HospitalComment on above:Performed By: #### TSH, CDP, BMP ####[address] [place] [address]([facility])[phone] SedimentNOT REPORTEDNormalNONEMeMerit Health Madison HospitalComment on above:Performed By: #### TSH, CDP, BMP ####[facility]cle[facility] [address] [place] [address]([facility])[phone] REPORTEDNormalCincinnati Shriners Hospital Comment on above:Performed By: #### TSH, CDP, BMP ####[address] [place] [address] CommentNOT REPORTEDNormalTrihealth Mccullough-Hyde Memorial Hospital HospitalComment on above:Performed By: #### TSH, CDP, BMP ####[address] [place] [address] CrystalsNOT REPORTEDNormalNONEMeMerit Health Madison HospitalComment on above:Performed By: #### TSH, CDP, BMP ####[address] , [place] [phone], RenalNOT REPYPHQDSgesiv5Bqiaw [facility] [place] HospitalComment on above: Performed By: #### TSH, CDP, BMP ####[address] [place], [place] [phone] StrandsNOT REPORTEDNormalNONEMercy East Granby HospitalComment on above:Performed By: #### TSH, CDP, BMP ####[address] [place], [place] [phone] ObservationsNOT REPORTEDNormalNREQMercy East Granby HospitalComment on above:Performed By: #### TSH, CDP, BMP ####[address] [place], [place] [phone] REPORTEDNormalNONEMeMerit Health Madison HospitalComment on above: Performed By: #### TSH, CDP, BMP ####[address] [place] [address] YeastNOT REPORTEDNormalNONEMeMerit Health Madison Hospital Comment on above:Performed By: #### TSH, CDP, BMP ####[address] [place] [address] APTTon 81-00-0780iOLS Coag time (Bld)28.4 yYgmube00.2-34.4MerUniversity Hospitals Samaritan Medical Center HospitalComment on above:Performed By: #### TSH, CDP, BMP ####[address] [place] [address] CBC with Diffon [id number]. Basophil0.03 k/uLNormal 0.00-0.20MerUniversity Hospitals Samar[facility] HospitalComment on above:Performed By: #### TSH, CDP, BMP ####[address] [place] [address] Abs.Imm.Granulocyte<0.66Notjzb2.00-0.30[facility] HospitalComment on above: Performed By: #### ABA STUART, BMP ####[address] [place] [address] Abs.Neutrophil (Seg)4.25 k/uLNormal1.50-8.10 [facility] HospitalComment on above:Performed By: #### SADE, ABA, BMP ####[address] [place] [address] Basophils/100 WBC Auto (Bld)1 %Normal0-2MOhio State East HospitalComment on above:Performed By: #### ABA STUART, BMP ####[address] [place] [address] Eosinophils Auto #/vol (Bld)0.20 10*3/uLNormal0.00-0.44[facility] HospitalComment on above:Performed By: #### ABA STUART, BMP ####[address] [place] [address] Eosinophils/100 WBC Auto (Bld)3 %Normal1-4[facility] HospitalComment on above:Performed By: #### ABA STUART, BMP ####[address] [place] [address] Erythrocyte distribution width Auto Ratio (RBC)12.2 %Normal 11.8-14.4[facility] HospitalComment on above:Performed By: #### ABA STUART, BMP ####[address] [place] [address] Hematocrit Auto Volume Fraction (Bld)39.4 %Low40.7-50.3MOhio State East Hospital Comment on above:Performed By: #### SADE, CDP, BMP ####[address] [place] [address] Hemoglobin mass conc (Bld)13.7 g/dL Rywuin95.0-17.0[facility] HospitalComment on above:Performed By: #### SADE, CDP, BMP ####[address] [place] [phone] granulocytes #/vol (Bld)0 %Mexuml8SwygaCincinnati Shriners HospitalComment on above:Performed By: #### TSH, CDP, BMP ####[address] [place] [address] Lymphocytes Auto #/vol (Bld)1.12 10*3/uLNormal 1.10-3.70[facility] HospitalComment on above:Performed By: #### SADE, ABA, BMP ####[address] [place] [address] Lymphocytes/100 WBC Auto (Bld)18 %Qfd84-11CjidgCincinnati Shriners HospitalComment on above: Performed By: #### SADE, CDP, BMP ####[address] [place] [address] MCH Auto Entitic mass (RBC)33.6 zcJegt12.2-33.5 [facility] HospitalComment on above:Performed By: #### SADE, CDP, BMP ####[address] [place] [address] MCHC Auto mass conc (RBC)34.8 g/zLRavdts87.4-34.8[facility] HospitalComment on above: Performed By: #### TSH, CDP, BMP ####[address] [place] [address] MCV Auto Entitic volume (RBC)96.6 fLNormal 82.6-102.9[facility] HospitalComment on above:Performed By: #### TSH, CDP, BMP ####[address] [place] [address] Monocytes Auto #/vol (Bld)0.61 10*3/uLNormal0.10-1.20[facility] Comment on above:Performed By: #### ABA STUART, BMP ####[address] [place] [address] Monocytes/100 WBC Auto (Bld)10 % Normal3-12[facility] HospitalComment on above:Performed By: #### ABA STUART, BMP ####[address] [place] [address] Neutrophil (Seg)68 %Gwjv63-18UgglxCincinnati Shriners HospitalComment on above:Performed By: #### ABA STUART, BMP ####[address] [place] [address] NRBC Automated0.0 per 100 WBCNormal0.0[facility] Comment on above:Performed By: #### ABA STUART, BMP ####[address] [place] [address] Platelet mean volume Auto Entitic volume (Bld)8.7 fLNormal8.1-13.5[facility] HospitalComment on above:Performed By: #### ABA STUART, BMP ####[address] [place] [address] Platelets Auto #/vol (Bld)192 10*3/tYYxphzs942-101IczsrCincinnati Shriners HospitalComment on above:Performed By: #### ABA STUART, BMP ####[address] [place] [address] RBC Auto #/vol (Bld)4.08 10*6/uLLow4.21-5.77[facility] HospitalComment on above:Performed By: #### ABA STUART, BMP ####[address] [place] [address] WBC Auto #/vol (Bld)6.2 10*3/uLNormal3.5-11.3[facility] HospitalComment on above:Performed By: #### SADE, CDP, BMP ####[address] [place] [address] Auto Diff PerformedNOT REPORTEDNormalMercy East Granby HospitalComment on above:Performed By: #### TSH, CDP, BMP ####[address] [place] [address] Platelets Auto #/vol (Bld)NOT REPORTEDNormalMercy East Granby HospitalComment on above:Performed By: #### SADE, ABA, BMP ####[address] [place] [address] RBC morphology finding Nom (Bld)NOT REPORTED NormalMercy East Granby HospitalComment on above:Performed By: #### SADE, ABA, BMP ####[address] [place] [address] WBC MorphologyNOT REPORTEDNormalMercy East Granby HospitalComment on above:Performed By: #### SADE, ABA, BMP ####[address] [place], [place] [id number] CT ABDOMEN PELVIS WO CONTRASTon [id number] ABDOMEN PELVIS WO CONTRASTEXAMINATION:CT OF THE ABDOMEN AND PELVIS WITHOUT CONTRAST 08/06/2018 1:08 pmTECHNIQUE:CT of the abdomen and pelvis was performed without the administration ofintravenous contrast. Multiplanar reformatted images are provided for review.Dose modulation, iterative reconstruction, and/or weight based adjustment ofthe mA/kV was utilized to reduce the radiation dose to as low as reasonablyachievable.COMPARISON:03/12/2018HISTORY:ORDERING SYSTEM PROVIDED HISTORY: ABD painTECHNOLOGIST PROVIDED HISTORY:FINDINGS:Lower Chest: Bibasilar peripheral reticular septal thickening consistent withmild fibrosis. U nchangedOrgans:The liver, spleen, pancreas and adrenal glands show [...] Urinary bladder grossly normal. No suspicious pelvic mass.Peritoneum/Retroperitoneum: No free intraperitoneal fluid or significantlymphadenopathy. IVC filter with the proximal and 3 cm caudad to the rightrenal vein.Bones/Soft Tissues: Dextrocurvature of the lumbar spine. Diffusedegenerative changes. No evidence for umbilical hernia or inguinal herniaIMPRESSION: 1. There is a 2 mm nonobstructing calculuslower pole left kidney. Noureteric calculi.2. No acute infective or inflammatory process.3. Minor bibasilar fibrosis unchanged.Interpreted by:FARRAH Arredondoigned by:Ketan Hartley MD08/06/inal resultNormalMerBristol HospitalCT HEAD WO CONTRASTon [id number] HEAD WO CONTRASTEXAMINATION:CT OF THE HEAD WITHOUT CONTRAST 08/06/2018 1:05 pmTECHNIQUE:CT of the head was performed without the administration of intravenouscontrast. Dose modulation, iterative reconstruction, and/or weight basedadjustment of the mA/kV was utilized to reduce the radiation dose to as lowas reasonably achievable.COMPARISON:None.HISTORY:ORDERING SYSTEM PROVIDED HISTORY: weaknessTECHNOLOGIST PROVIDED HISTORY:FINDINGS:BRAIN/VENTRICLES: There is no acute intracranial hemorrhage, mass effect ormidline shift. No abnormal extra- axial fluid collection. The ray-whitedifferentiation is maintained without evidence of an acute infarct. There isno evidence of hydrocephalus. Scattered hypodensities are present in thewhite matter likely related to chronic microvascular change.ORBITS: The visualized portion of the orbits demonstrate no acute abnormality.SINUSES: Mild inflammatory changes are present the ethmoid air cells.Remainder of the paranasal sinuses are adequately aerated. Mastoid air cellsareadequately aerated.SOFT TISSUES/SKULL: No acute abnormality of the visualized skull or softtissues.IEstimated biologic radiation dose for this procedure:1381.76 mGy/cm2.IMPRESSION: No acute intracranial abnormality. Senescent changes including chronicmicrovascular change.Interpreted by:FARRAH Robbinsigned by:Ayanna Abrams MD08/06/inal resultNormalCincinnati Shriners Hospital Comp Metabolic Profon 08-06-2018(cont.)NormalCincinnati Shriners HospitalComment on above:Result Comment: Average GFR for 70 or more years old: 75 mL/min/1.73sq mChronic Kidney Disease: <60 mL/min/1.73sq mKidney failure: <15 mL/min/1.73sq meGFR calculated using average adult body mass. Additional eGFR calculator available at:http://www.EVRGR/multiple_crcl_2012.htmPerformed By: #### ABA STUART, BMP ####[address] [place] [address]([facility])[phone] mass conc4.0 g/dLNormal3.5-5.2MOhio State East Hospital Comment on above:Performed By: #### ABA STUART, BMP ####[address] [place] [address] Albumin/Globulin mass ratio1.4 {ratio}Normal1.0-2.5[facility]riners HospitalComment on above:Performed By: #### ABA STUART, BMP ####[address] [place] [address] Alkaline Phos79 U/IHplkkb88-954HwukfCincinnati Shriners HospitalComment on above:Performed By: #### ABA STUART, BMP ####[address] [place] [address] ALT enzyme act/vol11 U/LNormal5-41[facility]riners HospitalComment on above:Performed By: #### ABA STUART, BMP ####[address] [place] [phone] Anion gap 3 molar conc12 mmol/LNormal9-17[facility]ers HospitalComment on above:Performed By: #### ABA STUART, BMP ####[address] , [place] [phone] enzyme act/vol15 U/LNormal<40[facility] HospitalComment on above: Performed By: #### ABA STUART, BMP ####[address] , [place] [address] Bilirubin Ql (U)0.41 mg/dLNormal0.3-1.2MercKettering Memorial Hospital HospitalComment on above:Performed By: #### ABA STUART, BMP ####[address] , [place] [address] BUN/CRE Dyreo4Mhv 9-20[facility] HospitalComment on above:Performed By: #### ABA STUART, BMP ####[address] , [place] [address] Calcium mass conc9.1 mg/dLNormal8.6-10.4MerUniversity Hospitals [facility]ar[facility] HospitalComment on above:Performed By: #### ABA STUART, BMP ####[address] , [place] [address] Chloride molar conc96 mmol/KIki61-000FzatlCincinnati Shriners Hospital Comment on above:Performed By: #### ABA STUART, BMP ####[address] , [place] [address] ZI0 molar conc25 mmol/KAzlbmt91-78 [facility] HospitalComment on above:Performed By: #### ABA STUART, BMP ####[address] , [facility]83 Creatinine mass conc1.45 mg/dLHigh0.70-1.20[facility] HospitalComment on above:Performed By: #### SADE, CDP, BMP ####[address] , [facility]83 GFR, Amer58 mL/minLow>60MerUniversity Hospitals Samaritan Medical Center HospitalComment on above:Performed By: #### SADE, CDP, BMP ####[address] [place] [address] GFR,non Amer48 mL/minLow>60[facility] HospitalComment on above:Performed By: #### TSH, CDP, BMP ####[address] [place] [address] Glucose mass unqc942 mg/cVItod79-88Lzscz East [facility] HospitalComment on above:Performed By: #### SADE, CDP, BMP ####[address] [place] [address] Potassium molar conc3.7 mmol/LNormal3.7-5.3Msalem regional medical centery East Granby HospitalComment on above:Performed By: #### SADE, CDP, BMP ####[address] [place] [address] Protein mass conc6.8 g/dLNormal6.4-8.3[facility] HospitalComment on above:Performed By: #### SADE, CDP, BMP ####[address] [place] [address] Sodium molar conc 133 mmol/ZVmo830-795Iawcp [facility] HospitalComment on above:Performed By: #### SADE, CDP, BMP ####[address] [place] [address] Staging:NormalTrihealth Mccullough-Hyde Memorial Hospital HospitalComment on above:Result Comment: Stage 1: Some kidney damage normal GFRStage 2: Mild kidney damage GFR 60-89Stage 3:Moderate kidney damage GFR 30-59Stage 4: Severe kidney damage GFR 15-29Stage 5: Severe kidney damage GFR <15ESRD - chronic treatment by dialysis or transplantPerformed By: #### TSH, CDP, BMP ####[address] , [facility]83 Urea nitrogen mass conc11 mg/dLNormal 8-23MerUniversity Hospitals [facility]ar[facility] HospitalComment on above:Performed By: #### TSH, CDP, BMP ####[address] [place] [address] ED Provider Noteon [id number] IP Note OR TranscriptionNormalMercy East Granby HospitalLactic Acidon [id number] molar conc0.8 mmol/LNormal0.5-2.2[facility] HospitalComment on above:Performed By: #### ABA STUART, BMP ####[address] [place] [address] Lactic Acid,Whole BlNOT REPORTEDNormal0.7-2.1[facility] HospitalComment on above:Performed By: #### ABA STUART, SHERRY ####[address] [place] [phone] [id number] Coag RelTime (PPP)1.0 {INR}Normal0.9-1.2 [facility] HospitalComment on above:Performed By: #### ABA STUART, BMP ####[address] [place] [address] Prothrombin time (PT) Coag time (PPP)10.6 sNormal9.7-12.2MMercer County Community Hospital HospitalComment on above: Performed By: #### ABA STUART, BMP ####[address] [place] [address] Thyroid Stim. Horm.on [id number] Qn 0.37 m[IU]/LNormal0.30-5.00[facility] HospitalComment on above:Performed By: #### ABA STUART, BMP ####[address] [place] [address] Urinalysis, Routineon [id number] mass conc NegativeNormalNEGTrihealth Mccullough-Hyde Memorial Hospital HospitalComment on above:Performed By: #### ABA STUART, BMP ####[address] [place] [phone], SemiQt,UrNegativeNormalNEGMercy East Granby HospitalComment on above:Performed By: #### TSH, CDP, BMP ####[address] [place] [address] ColorYELLOWNormalYELMercy East Granby HospitalComment on above:Performed By: #### TSH, CDP, BMP ####[address] , [place] [address] Glucose,Semi-qnt,UrNegativeNormalNEG [facility] HospitalComment on above:Performed By: #### TSH, CDP, BMP ####[address] [place] [address] Hemoglobin, Ur TRACEAbnormalNEGMercy East Granby HospitalComment on above:Performed By: #### TSH, CDP, BMP ####[address] [place] [phone] EsteraseNegativeNormalNEGMercy East Granby HospitalComment on above: Performed By: #### TSH, CDP, BMP ####[address] [place] [address] Nitrite,UrNegativeNormalNEGMercy East Granby Hospital Comment on above:Performed By: #### TSH, CDP, BMP ####[address] [place] [address] PH,Ur7.8Zfnzof2.0-9.0Mer[facility] HospitalComment on above:Performed By: #### TSH, CDP, BMP ####[address] [place] [address] Protein mass conc NegativeNormalNEGMercy East Granby HospitalComment on above:Performed By: #### TSH, CDP, BMP ####[address] [place] [phone]. [place],Ur<1.950Pgi9.010-1.020[facility] HospitalComment on above: Performed By: #### ABA STUART, BMP ####[address] [place] [address] TurbidityCLEARNormalCLEARTrihealth Mccullough-Hyde Memorial Hospital Hospital Comment on above:Performed By: #### SADE, CDP, BMP ####[address] , [place] [address] Urobilinogen,UrNormalNormalNORM [facility] HospitalComment on above:Performed By: #### ABA STUART, BMP ####[address] [place] [address]([facility])[phone] REPORTEDNormalCincinnati Shriners HospitalComment on above:Performed By: #### ABA STUART, BMP ####[address] [place] [address] Urinalysis,Microon 08-06-2018-----NormalCincinnati Shriners HospitalComment on above: Performed By: #### ABA STUART, BMP ####[address] [place] [address]([facility])[phone] cells0 TO 6Fgaepc8-0UreqnCincinnati Shriners HospitalComment on above:Performed By: #### SADE, ABA, BMP ####[address] [place] [address]([facility])[phone] Test strip #/vol (U) 0 TO 4Kiykdk6-4Siyss [facility] HospitalComment on above:Performed By: #### SADE, ABA, BMP ####[address] [place] [address]([facility])[phone] 5-7000Urine WBC's0 TO 3Xpgjry8-8Lwwgg [facility] HospitalComment on above:Performed By: #### TSH, CDP, BMP ####[address] [place] [address] Amorphous SedimentNOT REPORTEDSaint John'S Health SystemalNONEMeGaylord Hospital Comment on above:Performed By: #### TSH, CDP, BMP ####[address] [place] [address] BacteriaNOT REPORTEDNormalNONEMeMerit Health Madison HospitalComment on above:Performed By: #### TSH, CDP, BMP ####[address] [place] [address] CastsNOT REPORTED NormalMercy East Granby HospitalComment on above:Performed By: #### TSH, CDP, BMP ####[address] [place] [address] CrystalsNOT REPORTEDNormalNONEMey East Granby HospitalComment on above:Performed By: #### TSH, CDP, BMP ####[address] [place] [address] Epithelial, RenalNOT WTIODTRVEwerof7AdlnaCincinnati Shriners Hospital Comment on above:Performed By: #### TSH, CDP, BMP ####[address] [place] [address] Mucus StrandsNOT REPORTEDNormalNONE [facility] HospitalComment on above:Performed By: #### TSH, CDP, BMP ####[address] [place] [address] Other ObservationsNOT REPORTEDNormalNREQMercy East Granby HospitalComment on above: Performed By: #### TSH, CDP, BMP ####[address] [place] [address] TrichomonasNOT REPORTEDNormalNONEMercy East Granby HospitalComment on above:Performed By: #### TSH, CDP, BMP ####[address] [place] [address] YeastNOT REPORTEDNormal NONEMercy East Granby HospitalComment on above:Performed By: #### TSH, CDP, BMP ####[address] , [place] [address] UA w/Reflex Cultureon [id number] Acid,UrNegativeNormalNEGMerUniversity Hospitals Samaritan Medical Center HospitalComment on above:Performed By: #### TSH, CDP, BMP ####[address] , [facility]83 Bilirubin, SemiQt,Ur NegativeNormalNEGMerUniversity Hospitals Samaritan Medical Center HospitalComment on above:Performed By: #### TSH, CDP, BMP ####[address] [place] [phone]y East Granby HospitalComment on above:Performed By: #### TSH, CDP, BMP ####[address] , [facility]83 Glucose,Semi-qnt,UrNegativeNormalNEGCincinnati Shriners Hospital Comment on above:Performed By: #### TSH, CDP, BMP ####[address] , [facility]83 Hemoglobin, UrNegativeNormalNEG [facility] HospitalComment on above:Performed By: #### TSH, CDP, BMP ####[address] , [facility]83 Leuckocyte EsteraseNegativeNormalNEGMerUniversity Hospitals Samaritan [facility] Center HospitalComment on above:Performed By: #### TSH, CDP, BMP ####[address] , [place] [address] Nitrite,UrNegativeNormalNEGMerUniversity Hospitals Samaritan Medical Center HospitalComment on above:Performed By: #### TSH, CDP, BMP ####[address] , [facility]83 PH,Ur7.0Rhljau2.0-9.0[facility] Comment on above:Performed By: #### TSH, CDP, BMP ####[address] [place], [place] [phone], Semi-qnt,UrNegativeNormal NEGTrihealth Mccullough-Hyde Memorial Hospital HospitalComment on above:Performed By: #### TSH, CDP, BMP ####[address] [place] [phone]. [place],Ur<1.343Sdk0.010-1.020[facility] HospitalComment on above:Performed By: #### TSH, CDP, BMP ####[address] , [phone]RTrihealth Mccullough-Hyde [facility] Hospital HospitalComment on above:Performed By: #### TSH, CDP, BMP ####[address] [place] [phone],UrNormalNormalNORMTrihealth Mccullough-Hyde Memorial Hospital HospitalComment on above:Performed By: #### TSH, CDP, BMP ####[address] , [place] [phone] REPORTED NormalTrihealth Mccullough-Hyde Memorial Hospital HospitalComment on above:Performed By: #### TSH, CDP, BMP ####[address] [place] [address] Urinalysis,Microon 08-03-2018-----NormalLouis Stokes Cleveland Va Medical Centercy East [facility] HospitalComment on above: Performed By: #### TSH, CDP, BMP ####[address] [place], [place] [phone] cells0 TO 1Qryill2-5Xenxi [facility] HospitalComment on above:Performed By: #### TSH, CDP, BMP ####[address] , [phone] Test strip #/vol (U) 0 TO 9Ysvbes3-8Hyvra [facility] HospitalComment on above:Performed By: #### TSH, CDP, BMP ####[address] [place] [phone] WBC's0 TO 7Bvijmn5-5Mppww [facility] [place] HospitalComment on above:Performed By: #### TSH, CDP, BMP ####[address] [place] [address] Amorphous SedimentNOT REPORTEDNormalNONEMeGaylord Hospital Comment on above:Performed By: #### TSH, CDP, BMP ####[address] [place] [address] BacteriaNOT REPORTEDNormalNONEMeMerit Health Madison HospitalComment on above:Performed By: #### TSH, CDP, BMP ####[address] [place] [address] CastsNOT REPORTED NormalMercy East Granby HospitalComment on above:Performed By: #### TSH, CDP, BMP ####[address] [place] [address] CrystalsNOT REPORTEDNormalNONEMeMerit Health Madison HospitalComment on above:Performed By: #### TSH, CDP, BMP ####[address] [place] [address] Epithelial, RenalNOT VAAYVSKVKfjeep0MtjzsCincinnati Shriners Hospital Comment on above:Performed By: #### TSH, CDP, BMP ####[address] [place] [address] Mucus StrandsNOT REPORTEDNormalNONE [facility] HospitalComment on above:Performed By: #### TSH, CDP, BMP ####[address] [place] [address] Other ObservationsNOT REPORTEDNormalNREQTrihealth Mccullough-Hyde [facility] Hospital HospitalComment on above: Performed By: #### TSH, CDP, BMP ####[address] [place] [address] TrichomonasNOT REPORTEDNormalNONEMercy East Granby HospitalComment on above:Performed By: #### ABA STUART, BMP ####[address] [place] [address] YeastNOT REPORTEDNormal NONEMerUniversity Hospitals Samaritan Medical Center HospitalComment on above:Performed By: #### ABA STUART, BMP ####[address] [place] [address] CBC with Diffon [id number]. Basophil<0.22Yqucxy0.00-0.20MerUniversity Hospitals Samar[facility] Center Hospital Comment on above:Performed By: #### ABA STUART, BMP ####[address] [place] [address] Abs.Imm.Granulocyte0.03 k/uLNormal 0.00-0.30MerUniversity Hospitals Samaritan Medical Center HospitalComment on above:Performed By: #### ABA STUART, BMP ####[address] [place] [address] Abs.Neutrophil (Seg)3.87 k/uLNormal1.50-8.10[facility] HospitalComment on above:Performed By: #### ABA STUART, BMP ####[address] [place] [address] Basophils/100 WBC Auto (Bld)0 %Normal0-2[facility] HospitalComment on above:Performed By: #### SADE, ABA, BMP ####[address] [place] [address] Eosinophils Auto #/vol (Bld)0.34 10*3/uLNormal0.00-0.44MerUniversity Hospitals Samaritan Medical Center HospitalComment on above: Performed By: #### ABA STUART, BMP ####[address] [place] [address] Eosinophils/100 WBC Auto (Bld)6 %High1-4[facility] HospitalComment on above:Performed By: #### SADE CDP, BMP ####[address] [place] [address] Erythrocyte distribution width Auto Ratio (RBC)12.9 %Xkoief74.8-14.4[facility] Comment on above:Performed By: #### SADE, CDP, BMP ####[address] [place] [address] Hematocrit Auto Volume Fraction (Bld)40.4 %Low40.7-50.3[facility] HospitalComment on above:Performed By: #### ABA STUART, BMP ####[address] [place] [address] Hemoglobin mass conc (Bld)14.0 g/qZNqezfs44.0-17.0[facility] HospitalComment on above:Performed By: #### SADE, CDP, BMP ####[address] [place] [address] Immature granulocytes #/vol (Bld)1 %Rhav3DjmgpTrihealth Mccullough-Hyde Memorial Hospital HospitalComment on above:Performed By: #### SADE, CDP, BMP ####[address] [place] [phone] Auto #/vol (Bld)1.24 10*3/uLNormal1.10-3.70[facility] HospitalComment on above:Performed By: #### TSH, CDP, BMP ####[address] [place] [address] Lymphocytes/100 WBC Auto (Bld)21 %Dle82-96Nmles [facility] HospitalComment on above:Performed By: #### TSH, CDP, BMP ####[address] [place] [phone] 5-7000MCH Auto Entitic mass (RBC)33.7 vdXpro05.2-33.5[facility] Comment on above:Performed By: #### TSH, CDP, BMP ####[address] , [facility]83 MCHC Auto mass conc (RBC)34.7 g/dL Wwrnuu77.4-34.8[facility] HospitalComment on above:Performed By: #### TSH, CDP, BMP ####[address] , [place] [phone] 5-7000MCV Auto Entitic volume (RBC)97.1 mGWgscup70.6-102.9[facility] Comment on above:Performed By: #### TSH, CDP, BMP ####[address] , [place] [address] Monocytes Auto #/vol (Bld)0.46 10*3/uLNormal0.10-1.20MerBristol HospitalComment on above:Performed By: #### TSH, CDP, BMP ####[address] , [place] [address] Monocytes/100 WBC Auto (Bld)8 %Normal3-12[facility] Comment on above:Performed By: #### TSH, CDP, BMP ####[address] , [facility]83 Neutrophil (Seg)64 %Niisnk01-32 [facility] HospitalComment on above:Performed By: #### TSH, CDP, BMP ####[address] , [place] [address] NRBC Automated 0.0 per 100 WBCNormal0.0[facility] HospitalComment on above:Performed By: #### TSH, CDP, BMP ####[address] [place] [address] Platelet mean volume Auto Entitic volume (Bld)9.0 fLNormal 8.1-13.5[facility] HospitalComment on above:Performed By: #### TSH, CDP, BMP ####[address] , [place] [address] Platelets Auto #/vol (Bld)157 10*3/uHCoxanv748-978Kcpfi [facility]in HospitalComment on above:Performed By: #### TSH, CDP, BMP ####[address] , [facility]83 RBC Auto #/vol (Bld)4.16 10*6/uLLow 4.21-5.77[facility] HospitalComment on above:Performed By: #### TSH, CDP, BMP ####[address] , [facility]83 WBC Auto #/vol (Bld)6.0 10*3/uLNormal3.5-11.3[facility] HospitalComment on above: Performed By: #### TSH, CDP, BMP ####[address] , [place] [address] Auto Diff PerformedNOT REPORTEDNormalMercy East Granby HospitalComment on above:Performed By: #### TSH, CDP, BMP ####[address] , [place] [address] Platelets Auto #/vol (Bld)NOT REPORTEDNormalMercy East Granby HospitalComment on above:Performed By: #### TSH, CDP, BMP ####[address] , [place] [address] RBC morphology finding Nom (Bld)NOT REPORTEDNormalMercy East Granby HospitalComment on above:Performed By: #### TSH, CDP, BMP ####[address] [place] [address] WBC MorphologyNOT REPORTEDNormalMercy East Granby HospitalComment on above:Performed By: #### TSH, CDP, BMP ####[address] [place] [address] Comp Metabol,Fastingon 06-15-2018(cont.)NormalCincinnati Shriners HospitalComment on above:Result Comment: Average GFR for 70 or more years old: 75 mL/min/1.73sq mChronic Kidney Disease: <60 mL/min/1.73sq mKidney failure: <15 mL/min/1.73sq meGFR calculated using average adult body mass. Additional eGFR calculator available at:http://www.EVRGR/multiple_crcl_2012.htmPerformed By: #### ABA STUART, BMP ####[address] [place] [address] Albumin mass conc4.0 g/dLNormal3.5-5.2MOhio State East Hospital Comment on above:Performed By: #### ABA STUART, BMP ####[address] [place] [address] Albumin/Globulin mass ratio1.5 {ratio}Normal1.0-2.5[facility] HospitalComment on above:Performed By: #### ABA STUART, BMP ####[address] [place] [address] Alkaline Phos74 U/JUdvmgc57-466IlgskCincinnati Shriners HospitalComment on above:Performed By: #### ABA STUART, BMP ####[address] [place] [address] ALT enzyme act/vol10 U/LNormal5-41[facility] HospitalComment on above:Performed By: #### ABA STUART, BMP ####[address] [place] [address] Anion gap 3 molar conc11 mmol/LNormal9-17[facility] HospitalComment on above:Performed By: #### ABA STUART, BMP ####[address] [place] [phone] enzyme act/vol15 U/LNormal<40MerUniversity Hospitals Samaritan [facility] HospitalComment on above: Performed By: #### ABA STUART, BMP ####[address] [place] [address] Bilirubin Ql (U)0.50 mg/dLNormal0.3-1.2[facility] HospitalComment on above:Performed By: #### ABA STUART, BMP ####[address] [place] [address] BUN/CRE Ratio9 Normal9-20MerUniversity Hospitals Samaritan Medical Center HospitalComment on above:Performed By: #### ABA STUART, BMP ####[address] [place] [address] Calcium mass conc9.6 mg/dLNormal8.6-10.4MerUniversity Hospitals Samaritan Medical Center HospitalComment on above: Performed By: #### ABA STUART, BMP ####[address] [place] [address] Chloride molar ylar147 mmol/FAkgykc59-070Hcrio [facility] HospitalComment on above:Performed By: #### ABA STUART, BMP ####[address] [place] [address] EK8 molar conc28 mmol/OQjyciw42-67Bexxi [facility] HospitalComment on above:Performed By: #### ABA STUART, BMP ####[address] [place] [phone] mass conc1.71 mg/dLHigh0.70-1.20MerUniversity [facility] HospitalComment on above:Performed By: #### ABA STUART, BMP ####[address] [place] [address] GFR, Amer48 mL/minLow>60MerUniversity Hospitals Samaritan Medical Center HospitalComment on above:Performed By: #### SADEABA, BMP ####[address] [place] [address] GFR,non Amer40 mL/minLow>60[facility] HospitalComment on above:Performed By: #### TSH, CDP, BMP ####[address] [place] [address] Glucose mass conc95 mg/uOGurcoo69-08AqepiOhio State East HospitalComment on above: Performed By: #### SADE, CDP, BMP ####[address] [place] [address] Potassium molar conc4.3 mmol/LNormal3.7-5.3MOhio State East HospitalComment on above:Performed By: #### SADE, CDP, BMP ####[address] [place] [address] Protein mass conc 6.7 g/dLNormal6.4-8.3MMercer County Community Hospital HospitalComment on above:Performed By: #### SADE, CDP, BMP ####[address] [place] [address] Sodium molar giif417 mmol/QMwnfno366-762GcjjhCincinnati Shriners Hospital Comment on above:Performed By: #### SADE, CDP, BMP ####[address] [place] [address] Staging:NormalCincinnati Shriners Hospital Comment on above:Result Comment: Stage 1: Some kidney damage normal GFRStage 2: Mild kidney damage GFR 60-89Stage 3:Moderate kidney damage GFR 30-59Stage 4: Severe kidney damage GFR 15-29Stage 5: Severe kidney damage GFR <15ESRD - chronic treatment by dialysis or transplantPerformed By: #### TSH, CDP, BMP ####[address] [place] [address] Urea nitrogen mass conc15 mg/dLNormal8-23[facility] HospitalComment on above: Performed By: #### TSH, CDP, BMP ####[address] [place] [address] Lipid Prof, Fastingon 50-62-4470Pzsgtsroxuu in HDL mass conc53 mg/dLNormal>40[facility] HospitalComment on above:Result Comment: HDL Guidelines: <40 Undesirable 40-59 Borderline >59 DesirablePerformed By: #### TSH, CDP, BMP ####[address] [place] [address] Cholesterol in LDL mass conc55 mg/dLNormal0-130[facility] HospitalComment on above:Result Comment: LDL Guidelines: <100 Desirable 100-129 Near to/above Desirable 130-159 Borderline >159 UndesirableDirect (measured) LDL and calculated LDL are not interchangeable tests.Performed By: #### TSH, CDP, BMP ####[address] [place] [address] Cholesterol mass lduu493 mg/dLNormal<200MerUniversity Hospitals [facility] HospitalComment on above: Result Comment: Cholesterol Guidelines: <200 Desirable 200-240 Borderline >240 UndesirablePerformed By: #### SADE, ABA, BMP ####[address] [place] [address] Cholesterol.total/Cholesterol in HDL mass ratio2.6 {ratio}Normal<5[facility] HospitalComment on above:Performed By: #### TSH, CDP, BMP ####[address] [place] [address] Triglyceride,Jcrkeyb841 mg/dLNormal<150[facility] Comment on above:Result Comment: Triglyceride Guidelines: <150 Desirable 150-199 Borderline 200-499 High >499 Very high Based on AHA Guidelines for fasting triglyceride, July 2012.Performed By: #### TSH, CDP, BMP ####[address] [place] [address] Cholesterol in VLDL mass concNOT REPORTEDNormal1-30MerUniversity Hospitals [facility] HospitalComment on above:Performed By: #### TSH, CDP, BMP ####[address] [place] [address] Thyroid Stim. Horm.on 00-14-2058Aphfxyfzvij Qn0.43 m[IU]/L Normal0.30-5.00[facility] HospitalComment on above:Performed By: #### TSH, CDP, BMP ####[address] [place] [phone], Freeon 39-03-9540Rwzyzamnt, Free1.37 ng/dLNormal0.93-1.70[facility] HospitalComment on above:Performed By: #### TSH, CDP, BMP ####[address] [place] [phone] A Strep DNA on 77-19-5332Zoiys A Strep DNASpecimen Description .THROAT SWABSpecial Requests NOT REPORTEDDirect Exam Negative: Specimen negative for Streptococcus pyogenes by DNA amplification.Report Status FINAL 05/05/2018[facility] Comment on above:Performed By: #### GASDNA ####[facility] [address] [place], [place] [phone] [place] [address] Strep Gr A Direct Agon 05-04-2018S. pyogenes Ag IA Ql (Unsp spec)Specimen Description .THROATSpecial Requests NOT REPORTEDDirect Exam Rapid Strep A negative. A negative Rapid Group A Strep Screen result does not rule out the possibility of Group A Streptococci in the specimen. A Group A strep DNA test will be performed. Report Status FINAL 05/04/2018[facility] HospitalComment on above:Performed By: #### SGPA ####[address] [place] [address] XR CHEST (2 VW)on 05-04-2018 Thyrotropin QnREPORT: Chest, 2 views.INDICATION: Cough.FINDINGS: PA and lateral views of the chest show the heartto be normal in size. There may be mild underlying COPD. The lung lorenzo and costophrenic angles are clear. There is no evidence of a pneumothorax or free air beneath the diaphragm.Final report electr onically signed by Bijan Miranda on 05/04/2018 10:57 AMIMPRESSION: NO ACTIVE INFILTRATE OR VASCULAR CONGESTION.Interpreted by:FARRAH Shresthaigned by:Bijan Miranda MD05/04/inal resultNormalMagruder Hospital. pylori Antigenon 03-31-2018H. pylori AntigenSpecimen Description .FECES Performed at [address] [place] [address] [phone] Special Requests NOT REPORTEDDirect Exam NEGATIVE Performed at [facility] [address] [place], [place] [id number] [phone] Report Status FINAL 03/31/2018 [facility] HospitalComment on above:Performed By: #### FHPY ####[address] [place], [place] [phone] [place] [address] CT ABDOMEN PELVIS W IV CONTRASTon 65-70-7055TL ABDOMEN PELVIS W IV CONTRASTREPORT: CT abdomen and pelvis with contrastTECHNIQUE: Contiguous thin axial slices through the abdomen and pelvis obtained after administration of 100 mL Isovue-300 IV as per protocol. Axial, coronaland sagittal reformats were made from the source images.INDICATION: Abdominal pain, generalizedFINDINGS: Compared to 09/13/2017ABDOMEN: Chronic changes in the lung bases. The liver is normal in size and contour. No focal hepatic lesion is identified. Gallbladder is surgically absent. No intra-or ext rahepatic biliary ductal dilation. Normal symmetric enhancement of [...] 03/13/2018 9:14 AMInterpreted by:FARRAH Zelayaigned by:Jessa Garcia MD03/13/18Final resultNormalCincinnati Shriners HospitalBasic Metabolic Profon 03-12-2018(cont.)NormalCincinnati Shriners HospitalComment on above:Result Comment: Average GFR for 70 or more years old: 75 mL/min/1.73sq mChronic Kidney Disease: <60 mL/min/1.73sq mKidney failure: <15 mL/min/1.73sq meGFR calculated using average adult body mass. Additional eGFR calculator available at:http://www.EVRGR/multiple_crcl_2011.htmPerformed By: #### BMP ####[address] [place] [address] Anion gap 3 molar conc12 mmol/LNormal9-17[facility] HospitalComment on above: Performed By: #### BMP ####[address] [place] [address] BUN/CRE Ztypn28Vhunxf1-59Pdvim [place] HospitalComment on above:Performed By: #### BMP ####[address] [place] [address] Calcium mass conc9.2 mg/dLNormal8.6-10.4[facility] HospitalComment on above:Performed By: #### BMP ####[address] [place] [address] Chloride molar conc98 mmol/LNormal 98-107[facility] HospitalComment on above:Performed By: #### BMP ####[address] [place] [address] MY9 molar conc27 mmol/HWjpzcw20-13KockcCincinnati Shriners HospitalComment on above:Performed By: #### BMP ####[address] [place] [address] Creatinine mass conc1.44 mg/dLHigh0.70-1.20[facility] HospitalComment on above:Performed By: #### BMP ####[address] [place] [address] GFR, Amer59 mL/minLow>60[facility] Hospital Comment on above:Performed By: #### BMP ####[address] , [place] [phone],non Amer48 mL/minLow>60[facility] HospitalComment on above:Performed By: #### BMP ####[address] [place] [address] Glucose mass conc98 mg/iSYwxtga33-32 [facility] HospitalComment on above:Performed By: #### BMP ####[address] [place] [address] Potassium molar conc4.4 mmol/LNormal3.7-5.3MMercer County Community Hospital HospitalComment on above:Performed By: #### BMP ####[address] [place] [address] Sodium molar glwp250 mmol/JXmdxxm007-749RbduaCincinnati Shriners HospitalComment on above:Performed By: #### BMP ####[address] [place] [address] Staging:NormalTrihealth Mccullough-Hyde Memorial Hospital HospitalComment on above:Result Comment: Stage 1: Some kidney damage normal GFRStage 2: Mild kidney damage GFR 60-89Stage 3:Moderate kidney damage GFR 30-59Stage 4: Severe kidney damage GFR 15-29Stage 5: Severe kidney damage GFR <15ESRD - chronic treatment by dialysis or transplantPerformed at [address] [place] [address] Performed By: #### BMP ####[address] [place] [address] Urea nitrogen mass conc18 mg/dL Normal8-23[facility] HospitalComment on above:Performed By: #### BMP ####[address] [place] [address] Basic Metabolic Profon 10-14-2017(cont.)NormalCincinnati Shriners HospitalComment on above:Result Comment: Average GFR for 70 or more years old: 75 mL/min/1.73sq mChronic Kidney Disease: <60 mL/min/1.73sq mKidney failure: <15 mL/min/1.73sq meGFR calculated using average adult body mass. Additional eGFR calculator available at:http://www.EVRGR/multiple_crcl_2012.htmPerformed By: #### TSH, CDP, BMP ####[address] [place] [address] Anion gap 3 molar conc13 mmol/LNormal9-17[facility] HospitalComment on above: Performed By: #### TSH, CDP, BMP ####[address] [place] [address] BUN/CRE Kwmuj06Pgauwe3-38Fwrbd [place] [facility] Comment on above:Performed By: #### TSH, CDP, BMP ####[address] [place] [address] Calcium mass conc9.2 mg/dLNormal 8.6-10.4[facility] HospitalComment on above:Performed By: #### TSH, CDP, BMP ####[address] [place] [address] Chloride molar conc94 mmol/KYxa96-950RuzavCincinnati Shriners HospitalComment on above: Performed By: #### TSH, CDP, BMP ####[address] [place] [address] KD5 molar conc26 mmol/JRssysy06-23Lrlbp [place] HospitalComment on above:Performed By: #### ABA STUART, BMP ####[address] [place] [address] Creatinine mass conc1.60 mg/dLHigh0.70-1.20MerUniversity Hospitals [facility] HospitalComment on above:Performed By: #### ABA STUART, BMP ####[address] [place] [phone], Amer52 mL/minLow>60[facility] HospitalComment on above: Performed By: #### ABA STUART, BMP ####[address] [place] [address] GFR,non Amer43 mL/minLow>60[facility] HospitalComment on above:Performed By: #### ABA STUART, BMP ####[address] [place] [address] Glucose mass lxwo946 mg/rBQqox93-90Knzbh [place] HospitalComment on above:Performed By: #### ABA STUART, BMP ####[address] [place] [address] Potassium molar conc3.9 mmol/LNormal3.7-5.3MMercer County Community Hospital HospitalComment on above:Performed By: #### ABA STUART, BMP ####[address] [place] [address] Sodium molar lzrj812 mmol/TAdn945-644Dddfu [place] HospitalComment on above:Performed By: #### ABA STUART, BMP ####[address] [place] [address] Staging:Normal [facility] HospitalComment on above:Result Comment: Stage 1: Some kidney damage normal GFRStage 2: Mild kidney damage GFR 60-89Stage 3:Moderate kidney damage GFR 30-59Stage 4: Severe kidney damage GFR 15-29Stage 5: Severe kidney damage GFR <15ESRD - chronic treatment by dialysis or transplantPerformed at [address] [place], [place] [address] Performed By: #### ABA STUART, BMP ####[address] , [place] [address] Urea nitrogen mass conc25 mg/dLHigh8-23MerUniversity Hospitals [facility] HospitalComment on above:Performed By: #### ABA STUART, BMP ####[address] [place] [address] CBC with Diffon 82-42-0119Zfk. Basophil0.00 k/uLNormal0.0-0.2MercK[facility] Hospital HospitalComment on above:Performed By: #### ABA STUART, BMP ####[address] [place] [address] Abs.Neutrophil (Seg)8.99 k/uLHigh1.8-7.7MerUniversity Hospitals [facility] HospitalComment on above:Performed By: #### ABA STUART, BMP ####[address] [place] [address] Basophils/100 WBC Auto (Bld)0 %Normal0-2MercKettering Memorial Hospital HospitalComment on above:Performed By: #### ABA STUART, BMP ####[address] [place] [address] Eosinophils Auto #/vol (Bld)0.21 10*3/uLNormal0.0-0.4[facility] HospitalComment on above:Performed By: #### ABA STUART, BMP ####[address] [place] [address] Eosinophils/100 WBC Auto (Bld)2 %Normal0-8MerUniversity Hospitals [facility] HospitalComment on above:Performed By: #### ABA STUART, BMP ####[address] [place] [address] Lymphocytes Auto #/vol (Bld)1.18 10*3/uLNormal1.0-4.8[facility] HospitalComment on above:Performed By: #### TSH, CDP, BMP ####[address] , [facility]83 Lymphocytes/100 WBC Auto (Bld)11 %Tua93-86Cewot [place] HospitalComment on above:Performed By: #### TSH, CDP, BMP ####[address] [place] [address] Monocytes Auto #/vol (Bld)0.32 10*3/uLNormal0.0-1.0[facility] HospitalComment on above:Performed By: #### TSH, CDP, BMP ####[address] [place] [address] Monocytes/100 WBC Auto (Bld)3 %Normal0-12[facility] HospitalComment on above:Performed By: #### TSH, CDP, BMP ####[address] [place] [address] Morphology Interp Azar (Bld)NormalNormalCincinnati Shriners Hospital Comment on above:Result Comment: Performed at [address] [place] [address] Performed By: #### TSH, CDP, BMP ####[address] , [facility]83 Neutrophil (Seg)84 %Citp68-57MaruzCincinnati Shriners HospitalComment on above:Performed By: #### TSH, CDP, BMP ####[address] [place] [address] Erythrocyte distribution width Auto Ratio (RBC)14.0 %Normal 12.1-15.2[facility] HospitalComment on above:Performed By: #### TSH, CDP, BMP ####[address] , [place] [address] Hematocrit Auto Volume Fraction (Bld)44.7 %Bnmcyg00-56YjzwlUniversity Hospitals Geauga Medical Center on above:Performed By: #### TSH, CDP, BMP ####[address] , [place] [address] Hemoglobin mass conc (Bld)14.6 g/dL Avleyl06.5-17.0[facility] HospitalComment on above:Performed By: #### TSH, CDP, BMP ####[address] [place] [phone] Auto Entitic mass (RBC)32.2 enYntmuw03-10Ivvnf [place] HospitalComment on above:Performed By: #### TSH, CDP, BMP ####[address] [place] [address] MCHC Auto mass conc (RBC)32.6 g/dL Hcvqfd85-12XsrjdCincinnati Shriners HospitalComment on above:Performed By: #### TSH, CDP, BMP ####[address] [place] [address] MCV Auto Entitic volume (RBC)98.7 oHAoemnx76-909DkbquCincinnati Shriners HospitalComment on above:Performed By: #### TSH, CDP, BMP ####[address] , [place] [address] Platelet mean volume Auto Entitic volume (Bld) 7.3 fLNormal6.0-12.0[facility] HospitalComment on above:Performed By: #### TSH, CDP, BMP ####[address] [place] [address] Platelets Auto #/vol (Bld)216 10*3/xULflypc589-692Wvyvx [place] HospitalComment on above:Performed By: #### TSH, CDP, BMP ####[address] [place] [address] RBC Auto #/vol (Bld)4.53 10*6/uLNormal4.5-5.9[facility] HospitalComment on above:Performed By: #### TSH, CDP, BMP ####[address] [place] [address] WBC Auto #/vol (Bld)10.7 10*3/uLNormal3.5-11.0[facility] HospitalComment on above:Performed By: #### TSH, CDP, BMP ####[address] [place] [address] Abs.Imm.GranulocyteNOT REPORTEDNormal0.00-0.30[facility] HospitalComment on above:Performed By: #### TSH, CDP, BMP ####[address] [place] [address] Auto Diff PerformedNOT REPORTEDNormalTrihealth Mccullough-[facility] Hospital Comment on above:Performed By: #### TSH, CDP, BMP ####[address] [place] [address] Immature granulocytes #/vol (Bld) NOT QETKCPCJTrperg3Tpwgd [place] HospitalComment on above:Performed By: #### TSH, CDP, BMP ####[address] [place] [phone] Auto #/vol (Bld)NOT REPORTEDNormalTrihealth Mccull[facility] HospitalComment on above:Performed By: #### TSH, CDP, BMP ####[address] [place] [address] RBC morphology finding Nom (Bld)NOT REPORTEDNormalTrihealth Mccull[facility] HospitalComment on above:Performed By: #### TSH, CDP, BMP ####[address] [place] [address] WBC MorphologyNOT REPORTEDNormalMerBristol HospitalComment on above:Performed By: #### TSH, CDP, BMP ####[address] [address] Thyroid Stim. Horm.on 58-68-8528Dcgflznmsth Qn0.23 m[IU]/LLow 0.30-5.00[facility] HospitalComment on above:Result Comment: Performed at [address] [place] [phone]. Performed By: #### TSH, CDP, BMP ####[address] [address] PSA, Diagnosticon 04-09-7123Rrjddxskd Spec. Ag 0.42 ug/LNormal<4.1MercGriffin HospitalComment on above:Result Comment: The Deonte ECLIA assay is used. Results obtained with different assay methods canno t be used interchangeably.Performed at [address] [place] [id number] Performed By: #### PSAD ####[address] [address]83 Vital Signs Date TimeVital SignValuePerforming YkvbfhvhyXskltuqj35-21-5713 12:55-0500Body cinjbm087.4 cmSmith Munguia DPM Work Phone: [facility] SpringsWvitdvnlgn94-30-0374 12:55-0500Body mass index (BMI) [Ratio]26.39 kg/t8YftizuthSmith Munguia DPM Work Phone: [facility] SpringsKezlskjybm30-20-0288 12:55-0500Body tgeine70.72 kgSmith Munguia DPM Work Phone: [facility] SpringsSuagthzskz87-27-8092 12:55-0500Respiratory rate18 /minSmith Munguia DPM Work Phone: [facility] SpringsOkghcrrksn86-93-0537 09:32-0400Body yhsbvc263.4 cmNicholas Brown DPM Work Phone: [facility] SpringsPjquqzoyxy29-23-8823 09:32-0400Body mass index (BMI) [Ratio]26.39 kg/r7Xuihmdeg Brown DPM Work Phone: [phone] [place], [place] [address]Smmgurdvkj56-18-4716 09:32-0400Body vkwnad86.72 kgNicholas Brown DPM Work Phone: [phone] [place], [place] [address]Kvywjhhkoh60-45-0106 09:32-0400Respiratory rate18 /minNicholas Brown DPM Work Phone: [phone] [place], [place] [address]Uauswifeob18-01-5468 09:45-0400Body avdmmz105.4 cmNicholas Brown DPM Work Phone: [phone] [place], [place] [address]Ietbkoveqk37-47-8170 09:45-0400Body mass index (BMI) [Ratio]26.39 kg/t6Ybcxttwt Brown DPM Work Phone: [phone] [place], [place] [address]Pjtnspiior85-64-2153 09:45-0400Body howikj63.72 kgNicholas Brown DPM Work Phone: [phone] [place], [place] [address]Crjovjjhwy72-74-3574 09:45-0400Respiratory rate18 /minNicholas Brown DPM Work Phone: [phone] [place], [place] [address]Kuonkypsbl81-78-3536 11:44-0400Body wuzmts063.4 cmNicholas Brown DPM Work Phone: [phone] [place], [place] [address]Ogfmdqariw53-18-3019 11:44-0400Body mass index (BMI) [Ratio]26.39 kg/j2Mdapgvxs Brown DPM Work Phone: [phone] [place], [place] [address]Tyuabfwubv29-39-8854 11:44-0400Body mgqtax67.72 kgNicholas Brown DPM Work Phone: [phone] [place], [place] [address]Izhpdzynzt39-63-9850 11:44-0400Respiratory rate18 /minNicholas Brown DPM Work Phone: [phone] [place], [place] [address]Fuwajomhxn53-03-5351 09:05-0500Body .4 cmNicholas Brown DPM Work Phone: [facility] SpringsChccmpmnau40-72-9440 09:05-0500Body mass index (BMI) [Ratio]26.39 kg/u5QtlfkqcmSmith Munguia DPM Work Phone: [facility] SpringsUhhjttlnyx56-12-2549 09:05-0500Body zwezhj27.72 kgSmith Munguia DPM Work Phone: [facility] SpringsDixutjhgcr68-74-5954 09:05-0500Respiratory rate16 /minSmith Munguia DPM Work Phone: [facility] SpringsXfihuenxim31-98-0266 08:30-0400Blood Pressure LocationAlysha Galea [facility]10-17-2024 08:30-0400Diastolic blood yubtwwhg60 mm[Hg]Elizabeth Galea [facility]10-17-2024 08:30-0400Heart rate70 /minAlysha Galea [facility]10-17-2024 08:30-0400Systolic blood mwogsuyl702 mm[Hg]Elizabeth Galea [facility]12-23-2023 12:16-0500Heart rate84 /[facility] 10-18-2023 11:43-0500Body iaivln367.42 cm[facility] 10-18-2023 11:43-0500Body .3 [degF][facility]12-23-2023 11:43-0500Body iwxifg66.9 kgSelect [facility] [place] 10-18-2023 11:43-0500Diastolic blood mm[Hg][facility]12-23-2023 11:43-0500Respiratory rate21 /minSelect Medical [facility] [place]12-23-2023 11:43-9477ZsD1% (BldA) [Mass fraction]97 %[facility]12-23-2023 11:43-0500Systolic blood kfmikrri038 mm[Hg][facility]12-23-2023 10:20-0500Body ywlcdk690.42 Davy Amador Other [facility] [employer] Other 12-23-2023 10:20-0500Body mass index (BMI) [Ratio] 26.36 kg/h9UhgqxkBrittany Amador Other [facility] [employer] Other 12-23-2023 10:20-0500Body lzkorqhrwvf08.9 [degF]Brittany Adenmond Other [employer] Other 12-23-2023 10:20-0500Body .[address] [facility] Other 12-23-2023 10:20-0500Respiratory rate18 /minBrittany Amador Other [employer] Other 12-23-2023 10:20-5286TaZ1% (BldA) [Mass fraction]99 % Brittany Adenmond Other [employer] [employer] Other Encounters Encounter DateEncounter TypeCare ProviderFacilityStart: 09-01-2025 End: 32-77-2385Ahsxhi Toño Munguia DPM Work Phone: [facility] PODIATRYStart: 09-01-2025 End: 38-42-6761Mreobk Toño Munguia DPM Work Phone: [facility] PODIATRYStart: 09-01-2025 End: 68-79-8346Vwrhdr outpatient visit 15 minutesSmith Munguia DPM Work Phone: [facility] CI PODIATRYComment on above:Xerosis cutis (Primary Dx); Hav (hallux abducto valgus), left; Hav (hallux abducto valgus), right; Plantar fasciitis; Heel spur, rightStart: 09-01-2025 End: 27-66-6835mrspylvtynNJDVITJY A EZRANot AvailableStart: 07-14-2025 End: 89-80-3144Hxbzqh flowsheetNicholas A Brown DPM Work Phone: [facility] PODIATRYStart: 07-14-2025 End: 97-17-0749Biajjq flowsheetNicholas A Brown DPM Work Phone: [facility] PODIATRYStart: 07-14-2025 End: 38-41-1750Ptsaacn encounter procedureNicholas A Brown DPM Work Phone: [facility] CI PODIATRYComment on above:Pain due to onychomycosis of toenails of both feet (Primary Dx)Start: 07-14-2025 End: 68-63-8184hmadxlfyhuXVWFQBTZ A BROWNNot AvailableStart: 04-14-2025 End: 43-35-7627Yhduzo flowsheetNicholas A Brown DPM Work Phone: [facility] PODIATRYStart: 04-14-2025 End: 73-86-0197Cwvgxh flowsheetNicholas A Brown DPM Work Phone: [facility] PODIATRYStart: 04-14-2025 End: 29-30-1797Comnhhs encounter procedureNicholas A Brown DPM Work Phone: [facility] CI PODIATRYComment on above:Pain due to onychomycosis of toenails of both feet (Primary Dx); Xerosis cutis; Hav (hallux abducto valgus), left; Hav (hallux abducto valgus), rightStart: 04-14-2025 End: 26-20-0659qfznqplchuGDVNILRJ Kayden MUNGUIANot AvailableStart: 03-11-2025 End: 41-82-8259xyaikzehxmEsnlppu R WATERSFacility:EU BellevueStart: 03-11-2025 End: 86-00-4786Utauskp encounter procedureADRY TYLER [facility] start: 01-20-2025 End: 52-12-1844Nzlcab Toño Munguia DPM Work Phone: [facility] CI PODIATRYStart: 01-20-2025 End: 94-37-0148Wotfjn flowsheetNicarelis Munguia DPM Work Phone: [facility] CI PODIATRYStart: 01-20-2025 End: 64-99-7883Mhlercz encounter procedureSmith Munguia DPM Work Phone: [facility] CI PODIATRYComment on above:Pain due to onychomycosis of toenails of both feet (Primary Dx); Xerosis cutis; Hav (hallux abducto valgus), left; Hav (hallux abducto valgus), rightStart: 01-20-2025 End: 40-61-3125nkgatovilhNQHLYLZL A BROWNNot AvailableStart: 11-09-2024 End: 79-45-7243vxlydpjjrzNhxqjhg R WATERSFacility:FTMCStart: 11-09-2024 End: 66-40-6557Zyizhfa encounter Jonel YARBROUHG [facility] Start: 10-14-2024 End: 81-34-2722Mvjwob flowsArt Munguia DPM Work Phone: [facility] CI PODIATRYStart: 10-14-2024 End: 63-82-7078Rdvvjx flowsArt Munguia DPM Work Phone: n[facility] CI PODIATRYStart: 10-14-2024 End: 75-23-0237Byibizz encounter procedureSmith Munguia DPM Work Phone: [facility] CI PODIATRYComment on above:Pain due to onychomycosis of toenails of both feet (Primary Dx); Xerosis cutis; Hav (hallux abducto valgus), left; Hav (hallux abducto valgus), rightStart: 10-14-2024 End: 25-80-8044chdfyfxedoKCUUTOJA A BROWNNot AvailableStart: 09-10-2024 End: 01-47-6008euxjrrcqtuJqchrak R WATERSFacility:EU evueStart: 09-10-2024 End: 62-24-4973Njpmvfu encounter procedurePajohana YARBROUGH [facility] start: 09-07-2024 End: 63-13-5580tuoteimzbhXbhjnm J GaleaFacility:EU tart: 09-07-2024 End: 61-34-3080Vjcqxvp encounter procedureAlysha J Julien [facility] start: 61-39-4468cjdyfuyabaSfxvdx Qamar GaleaFacility:EU ueStart: 08-18-2024 End: 05-41-6893cagdmvbdhyRgmzyr J GaleaFacility:EU ueStart: 08-18-2024 End: 73-92-4323Bhxzlkl encounter procedureAlysha J Gallula [facility] start: 08-12-2024 End: 39-76-7392hruxirgqgsDfiezn J GaleaFacility:EU ueStart: 08-12-2024 End: 56-76-8332Ydelglu encounter procedureAlysha J Galea [facility] start: 17-97-0222dxhephjqhsDxwslx GaleaFacility:EU [place]Start: 10-18-2023 End: 02-79-7032cbafqixuexWeefwz Dymond Other [employer] Other Start: 77-19-5587Xmgqoxl encounter procedureBrittany AmadorFPG Urgent Care ClydeStart: 10-18-2023 End: 52-28-6891Antzoczar department patient visitMichael Amador [facility]art: 10-18-2023 End: 96-86-2315Trmkjxhlj department [facility]South[facility] Work Phone: Start: 01-81-0611mtnteyomahYW THEE MCGUIRE Facility:R2Svlmx: 10-30-2022 End: 31-91-8377zonbwsmyywWM THEE MCGUIREFacility:N4Hlkgs: 09-10-2022 End: 61-44-7247sxociazkbsNN THEE MCGUIREFacility:C5Exaci: 05-13-2022 End: 56-72-1982ircaxuyfygCK THEE MCGUIREFacility:V4Hpfyc: 02-03-2022 End: 11-81-3773Fggpkjcnfl and management of inpatientPHYSICIAN UNKNOWN Facility:UTMCStart: 08-17-2018 End: 89-18-3111Tszyxwpbtt and management of inpatientAHMED JANJUAMercy Stephens HospitalStart: 08-16-2018 End: 05-32-1216Mablgurxv department patient visitMARK FRANKY Patricia HospitalStart: 08-06-2018 End: 56-11-5958Oijmkqlbc department patient visitMARK FRANKY [facility] HospitalStart: 08-03-2018 End: 54-34-6349Pkdwmlu encounterMARK FRANKY Patricia HospitalStart: 06-15-2018 End: 42-48-6632Utqdlvo encounterMARK FRANKY Patricia HospitalStart: 05-04-2018 End: 00-70-4740Fkpsxvqmu department patient visitMARC SHIRA Rossi [facility]Start: 03-30-2018 End: 66-67-7909Ipfxzhc encounterMARC SHIRA [facility] HospitalStart: 03-27-2018 End: 11-76-6426Xsjivrr encounterMARC SHIRA [facility] HospitalStart: 03-12-2018 End: 29-18-0824Xgpdqef encounterMARC SHIRA [facility] HospitalStart: 10-14-2017 End: 16-48-1755Xgrqvzd encounterMARC SHIRA [facility] HospitalStart: 10-01-2017 End: 12-01-1604Fslfzmv encounterPATRICK R [facility]enB[facility] Procedures DateProcedureProcedure DetailPerforming ClinicianStart: 30-95-3136JT of paranasal sinus without contrastStart: 42-79-9136Spputnth screenPHYSICIAN UNKNOWNComment on above:Performed By: #### [id number] #### [address] [address], USAStart: 47-94-6143QNIJJEADI PATIENTAHMED JANJUAStart: 56-13-5048Nzqzyqiohkr urinalysisAHMED JANJUAStart: 03-12-2291XRODL RT REFLEX TO CULTUREAHMED JANJUAStart: 31-73-5337LHMUEQL NUTRITION SUPPLEMENTSAHMED EDD Start: 76-20-1760AAIBYNT STATUS (FROM ED OR OR/PROCEDURAL)AHMED JANJUAStart: 97-25-4039DG CONSULT TO INTERNAL MEDICINEAHMED JANJUAStart: 24-22-7219MHAS GENERALAHMED JANJUAStart: 21-10-7853JD CONSULT TO DIETITIANAHMED JANJUAStart: 12-21-6400XP CONSULT TO HISTORY AND PHYSICALAHMED JANJUAStart: 08-17-2018 MISCELLANEOUS NURSING CARE ORDER (SPECIFY)AHMED JANJUAStart: 60-46-1311NP EVAL AND TREATAHMED JANJUAStart: 92-81-2551CL EVAL AND TREATAHMED JANJUAStart: 67-84-9149OZES CODEAHMED JANJUAStart: 04-08-2795ZUUYKAEJBNAX JANJUAStart: 89-64-3500MBOWR DRUG SCREENPATRICK WATERSStart: 30-04-2862Outcy dip stick/tablet reagent auto microscopyPATRICK WATERSStart: 76-08-7379OFM 12-LEADPATRICK YARBROUGH Start: 39-14-9040DZNXHQPBJOWXZ LEVELPATRICK WATERSStart: 85-55-0614Zworv of free thyroxinePAFLAGET MEMORIAL HOSPITALK WATERSStart: 90-93-5113Zxbid of thyroid stimulating hormone tsh CLARITZA WATERSStart: 82-38-6100Hmfor count complete auto&auto difrntl wbcPATRICK WATERSStart: 21-45-6183Fhrjrlngusjxa metabolic panelPATRICK WATERSStart: 53-78-0111ADFKVLQVUGAKAM WATERSStart: 45-39-7936OWAWICRGFO LEVELPATRICK YARBROUGH Start: 83-39-1177TLJAXRKKJ MONITORINGPATRICK WATERSStart: 64-35-1236SCIAF SIGNS CLARITZA WATERSStart: 46-31-2651XHADJOU PRECAUTIONSPATRICK WATERSStart: 11-15-5855Ov abdomen & pelvis w/o contrast materialPATRICK WATERSStart: 52-21-7530Ql head/brain w/o contrast materialPATRICK WATERSStart: 08-06-2018 Microscopic urinalysisPATRICK WATERSStart: 85-40-3267Cslhl dip stick/tablet rgnt auto w/o microscopyPATRICK WATERSStart: 44-31-2019UYYWSF PERIPHERAL IVPATRICK WATERSStart: 81-67-8614XNG 12-LEADPATRICK WATERSStart: 17-98-6530Ksmmm count complete auto&auto difrntl wbcPATRICK WATERSStart: 32-49-5879Hupohjtgiboyj metabolic panelPATRICK WATERSStart: 88-56-6626AWSTXO ACID, PLASMAPATRICK YARBROUGH Start: 05-30-8646Pycclhcupxz timePATRICK WATERSStart: 06-70-3719Ikwnockpmwaije time partial plasma/whole bloodPATRICK WATERSStart: 32-48-4194Mxpcy of thyroid stimulating hormone tshPAFLAGET MEMORIAL HOSPITALK WATERSStart: 01-26-8163Mupatttfyea urinalysis CLARITZA WATERSStart: 26-60-9390MKTZI RT REFLEX TO CULTUREPATRICK WATERSStart: 52-89-0898Ahhee of free thyroxinePAFLAGET MEMORIAL HOSPITALK WATERSStart: 73-14-3593Agccn of thyroid stimulating hormone tshPAFLAGET MEMORIAL HOSPITALK WATERSStart: 57-65-0798Jonhd count complete auto&auto difrntl wbcPATRICK WATERSStart: 78-47-0919Bgpheglayuerx metabolic panelPATRICK WATERSStart: 98-15-8914Lrbxb panelPATRICK WATERSStart: 05-04-2018 Radiologic exam chest 2 viewsPATRICK WATERSStart: 62-08-2883QHNZW A DNA PROBE, AMPLIFICATIONPAFLAGET MEMORIAL HOSPITALK WATERSStart: 42-57-3135KJOOA SCREEN GROUP A THROATPATRICK WATERSStart: 03-30-2018H. PYLORI ANTIGENPATRICK WATERSStart: 03-43-4368Gy abdomen & pelvis w/contrast materialPATRICK WATERSStart: 08-27-9367Rfavp metabolic panel calcium totalPATRICK WATERSStart: 38-29-3772Buvwv metabolic 2000 panel - Serum or PlasmaPATRICK WATERSStart: 83-21-2484NEZ WITH AUTO DIFFERENTIAL CLARITZA [facility]OSPITALStart: 09-78-9565NFT WITHOUT REFLEXPATRICK WATERSStart: 10-01-2017 PSA, DIAGNOSTICPAFLAGET MEMORIAL HOSPITALK WATERSStart: 42-00-3842Laxofbwsplv of scrotumPatrick YARBROUGH Comment on above:Right hemiscrotal exploration/excision of r hemiscrotal abscess cavity/drainiageStart: 58-72-3160Rjrws total orchidectomyCasstown [employer] AS Start: 40-60-1160Btquxvgeynfey prostatectomyCasey County HospitalBusiness [employer] International Start: 79-78-4035CasobipufxQuwzvhz WATERS Start: 69-25-1578Fiahpijext studiesCasstown [employer] AS Start: 66-32-3333TcplfumzmaJvsvant WATERS Start: 06-11-6744Khuikysxlxlj by transurethral approach Claritza YARBROUGH appendectomyCasey County HospitalBusiness Monitor International Cardiac catheterizationCasey County HospitalBusiness [employer] International ColonoscopyIaSeeker-Industries Education about postoperative care after adenotonsillectomyPatrick YARBROUGH HemorrhoidectomyPatrick YARBROUGH Insertion of inferior vena caval filterPathe medical centerk YARBROUGH Operative procedure on footPatrick YARBROUGH Procedure on wristPatrick YARBROUGH Repair of inguinal herniaCasey County Hospitalk YARBROUGH Plan of Treatment DateCare ActivityDetailAuthorStart: 10-13-2025 End: 73-41-7781Lfaokms encounter mhzxhpqib62/18/2025 9:30 AM EST Procedure Visit [facility] [address] [phone] Smith Munguia, DPM [address] [address] [facility] CI PODIATRYStart: 09-01-2025 End: 15-46-3769Kfhirga encounter ujckwsdjk92/06/2025 1:40 PM EST Office Visit [facility] [address] [phone] Smith Munguia, DPM [address] [address] Xerosis cutis (Primary Dx); Hav (hallux abducto valgus), left; Hav (hallux abducto valgus), rightNOMS CI PODIATRYComment on above:Xerosis cutis (Primary Dx); Hav (hallux abducto valgus), left; Hav (hallux abducto valgus), rightStart: 07-14-2025 End: 21-84-6951Pybtqlh encounter procedureNOMS CI PODIATRYComment on above:Pain due to onychomycosis of toenails of both feet (Primary Dx)Start: 06-27-2025 COVID-19 Vaccine (2024- season)COVID-19 Vaccine ( season)[facility] HealthcareStart: 80-75-8676Xjzyxpadc vaccinationNOMS HealthcareStart: 04-14-2025 End: 96-87-0556Iehimec encounter iplrwqidw57/19/2025 10:10 AM EDT Procedure Visit [facility] [address] [facility] [address] [place] [address] Smith Munguia, DPM [address] [address] Pain due to onychomycosis of toenails of both feet (Primary Dx); Xerosis cutis; Hav (hallux abducto valgus), left; Hav (hallux abducto valgus), rightNOMS CI PODIATRYComment on above:Pain due to onychomycosis of toenails of both feet (Primary Dx); Xerosis cutis; Hav (hallux abducto valgus), left; Hav (hallux abducto valgus), rightStart: 03-31-2025 End: 12-60-2934Jvttvrl encounter wggjiqmnw00/05/2025 11:30 AM EDT Procedure Visit [facility] [address] [facility] [address] [place] [address] Smith Munguia, DPM [address] [address] [facility] CI PODIATRYStart: 01-06-2025 End: 47-74-9525Mcnjzcq encounter daqkhmpxu30/13/2025 9:20 AM EDT Procedure Visit [facility] [address] [facility] [address] [place] [address] Smith Munguia, DPM [address] [address] [facility] CI PODIATRYStart: 10-14-2024 End: 24-18-9963Wifhydb encounter ciayorymo72/19/2024 9:20 AM EST Procedure Visit [facility] [address] [facility] [address] [place] [address] Smith Munguia DPM [address] [facility] [place] [address] Pain due to onychomycosis of toenails of both feet (Primary Dx); Xerosis cutis; Hav (hallux abducto valgus), left; Hav (hallux abducto valgus), rightNOMS CI PODIATRYComment on above:Pain due to onychomycosis of toenails of both feet (Primary Dx); Xerosis cutis; Hav (hallux abducto valgus), left; Hav (hallux abducto valgus), rightStart: 79-37-6958Jbshtvcav vaccination Influenza Vaccine (#1)[facility] HealthcareStart: 21-50-6270Efwamdfk identified in Blood by CultureUniversity Hospitals Elyria Medical Centertart: 22-96-4731Musdswaawpr Wound CultureSuperficial Wound CultureUniversity Hospitals Elyria Medical Centertart: 69-29-2946Ytqrebbkooxd Vaccine: 65+ Years (2 of 2 - PPSV23 or PCV20)Pneumococcal Vaccine: 65+ Years (2 of 2 - PPSV23 or PCV20)[facility] HealthcareStart: 06-27-2018 Pneumococcal Vaccine: 65+ Years (2 of 2 - PPSV23)Pneumococcal Vaccine: 65+ Years (2 of 2 - PPSV23)[facility] HealthcareStart: 81-63-8392Boqpcldgmqkk Vaccine: 65+ Years (2 of 2 - PCV20 or PCV21)Pneumococcal Vaccine: 65+ Years (2 of 2 - PCV20 or PCV21)[facility] SpringsBacteria identified in Unspecified specimen by Aerobe cultureSelect Medical Cleveland Clinic Rehabilitation Hospital, BeachwoodPatient EducationCellulitis (Skin Infection), Adult (DC)[facility] Work Phone: Patient referralAvita Health System Bucyrus [facility]tr Work Phone: Immunizations Immunization DateImmunizationNotesCare VhrqipqhJgmeixdr67-66-8762wwoprvfya virus vaccine, unspecified formulationSmith Munguia DPM Work Phone: [facility] Payers DatePayer CategoryPayerPolicy [id number] [id number] 2023 [id number] [id number] Health Insurance [id number]9[id number] 1998Medicare1.2.840.785956.1.13.693.2.7.9.478079.455011. [id number] 1960Private Health [id number] [id number] 2.0.1.120039.3.57[id number] 2.0.1.051979.3.57[id number] 2.0.1.114928.3.57[id number] 2.16840.1.559015.3.57[id number] 2.16840.1.753592.3.57[id number] 2.16840.1.622103.3.57[id number] 2.16840.1.231137.3.579.[id number] 2.16.840.1.032346.3.579.[id number] 2.16.840.1.556731.3.579.2.[id number] 2.16.840.1.817709.3.57[id number] 2.16840.1.919799.3.57[id number] 2.16840.1.378996.3.57[id number] 2.16840.1.186498.3.57[id number] 2.840.1.373336.3.579.[id number] 2.840.1.657181.3.579.[id number] 2.840.1.635922.3.579.[id number] 2.840.1.690870.3.57[id number] 2.840.1.076200.3.579.2.65301-81-2142Yqgjqhl90028145 2.16840.1.105537.3.579.2.13849-17-3231Wzqkwfj17536018 2.16840.1.644300.3.579.[id number] 2.16840.1.271296.3.579.2.38639-16-1636Nbhbmfb90449913 2.16840.1.381792.3.579.[id number] 2.16.840.1.132644.3.579.2.49841-72-5606Dmblrtz93667059 2.16.840.1.851061.3.57[id number] 2.16.840.1.274922.3.579.2.783773-43-3020Mghqlaa97653938 2.16.840.1.294936.3.579.2.088502-38-9451Lohlyzh89650545 2.16.840.1.338731.3.579.2.203532-52-6866Gskhmed3844662 2.16.840.1.574683.3.579.2.653318-35-3698Uysgdgy1436716 2.16.840.1.050482.3.579.2.1259UnknownAnthem /[id number] 2n0556e6-52d1-1702-4461-197ff3356k1cErqbfllASSU/HFA/FAP Active 7490b410-vw51-3884-750x-az00o2tfqa0zVsnylya90151677 2.16.840.1.588059.3.579.2.531 Social History DateTypeDetailFacilityStart: 10-18-2023 End: 75-53-4958Eyzacbv smoking status NHISNever smoked tobacco (finding) [facility] Centertart: 41-04-0848Vjy Assigned At [facility] Centertart: 06-10-2024 End: 75-17-1366Ikb Assigned At [facility] Hospitaltart: 24-33-4406Vfebjvc smoking statusNeverExecutive Urology of [facility] BellevueStart: 17-10-3172Tzkhuwy use and exposureSmokeless tobacco non-userNOCA HealthcareStart: 10-14-2024 End: 77-38-2723Jeleoewug beverage intakeDeferNOCA HealthcareStart: 06-10-2024 End: 09-14-1055Hsjwzja of Social functionNOCA HealthcareStart: 03-76-5589Njd assigned at birthNot on fileSTEWARD HEALTH CARE SYSTEM HealthcareSexual OrientationExec[facility] start: 68-56-7105TmxZgfz (finding)[facility] Functional Status GwuuIgrtcinpgrGpsbbbNgmfmabi51-69-8840Jdvifzdvey StatusN/AFisher Kennedy Krieger InstituteVfglft86-69-9445Luqqsyavdl StatusN/AExecutive [facility]rology of [facility] Clinical Notes 02-07-2022 to 08-04-2025 Note Date & KwgaKdwbRahtorwd38-13-1818 History of Present illness Narrative* Smith Munguia, DPM - 09/01/2025 1:40 PM EST Patient: Niels Mccullough Jr. : 1945 PCP: Thee Mcguire MD SUBJECTIVE This is a 79-year-old male [...] a day (HOLD IF BP IS LESS [id number]), Disp: , Rfl: liothyronine (Cytomel) 5 MCG [...] This is the patients 1st injection Smith Munguia DPM documented in this encounterSaint Mary's Hospital of Blue SpringsZxauljehai16-18-3942 History of Present illness Narrative* Smith Munguia DPM - 09/01/2025 1:40 PM EST Patient: Niels Monique Jamel Perez. : 1945 PCP: Thee Mcguire MD SUBJECTIVE This is a 79-year-old male [...] a day (HOLD IF BP IS LESS [id number]), Disp: , Rfl: liothyronine (Cytomel) 5 MCG [...] This is the patients 1st injection Smith Munguia DPM documented in this encounterSaint Mary's Hospital of Blue SpringsSobqsxicsz28-68-8811 History of Present illness Narrative* Smith Munguia DPM - 07/14/2025 9:30 AM EDT Patient: Niels Mccullough Jr. : 1945 PCP: [...] a day (HOLD IF BP IS LESS [id number]), Disp: , Rfl: liothyronine (Cytomel) 5 MCG tablet, TAKE 4 TABLETS BY MOUTH MON,WED,AND,FRI, SUN AND 3 TABLETS TU,,SAT, Disp: , Rfl: magnesium oxide (Mag-Ox) 400 [...] 10. Negative hair growth b/l feet. . diminished Dry and scaly skin noted to bilateral [...] to onychomycosis of toenails of both feet PLAN Discussed proper foot care with patient today. Debride nails in length and thickness digits 1 through 10 Patient education on condition and treatment of condition. Patient encouraged to use creams daily and patient continue with home health applying weekly Smith Munguia DPM documented in this encounterSaint Mary's Hospital of Blue SpringsChjfosacaf60-31-7658 History of Present illness Narrative* Smith Munguia DPM - 04/14/2025 10:10 AM EDT Patient: Niels Mccullough Jr. : 1945 PCP: [...] a day (HOLD IF BP IS LESS [id number]), Disp: , Rfl: liothyronine (Cytomel) 5 MCG tablet, TAKE 4 TABLETS BY MOUTH MON,WED,AND,FRI, SUN AND 3 TABLETS TUES,,SAT, Disp: , Rfl: magnesium oxide (Mag-Ox) 400 [...] 10. Negative hair growth b/l feet. . diminished Dry and scaly skin noted to bilateral [...] weekly Smith Munguia DPM documented in this encounterSaint Mary's Hospital of Blue SpringsWtntemvtdq64-92-1856 History of Present illness Narrative* Smith Munguia DPM - 01/20/2025 11:50 AM EDT Patient: Niels Mccullough Jr. : 1945 PCP: [...] a day (HOLD IF BP IS LESS UCXH166), Disp: , Rfl: liothyronine (Cytomel) 5 MCG tablet, TAKE 4 TABLETS BY MOUTH MON,WED,AND,FRI, SUN AND 3 TABLETS TU,,SAT, Disp: , Rfl: magnesium oxide (Mag-Ox) 400 [...] weekly Smith Munguia DPM documented in this encounterSaint Mary's Hospital of Blue SpringsBrhamwzgxv41-86-1431 Hospital Discharge instructions Patient Education 11/09/2024 11:17:58 [...] Up Care 09/13/2024 15:33:51 With:Claritza YARBROUGH Address: [address] [place], [place] [address]- Business (1) When:03/09/2025 11:16:19 Comments:With a PA or nurse practitioner [facility] 01-14-2025 NotePatient Education Custom Cystoscopy ??? Voiding after the [...] if you have a fever over 100 degrees.[facility] 10-14-2024 History of Present illness Narrative* Smith Monique Ezra, DPM - 10/14/2024 9:20 AM EST Patient: Niels Monique Claus Perez. : 1945 PCP: Thee Mcguire MD SUBJECTIVE [...] a day (HOLD IF BP IS LESS [id number]), Disp: , Rfl: liothyronine (Cytomel) 5 MCG tablet, TAKE 4 TABLETS BY MOUTH MON,WED,AND,FRI, SUN AND 3 TABLETS TU,,SAT, Disp: , Rfl: magnesium oxide (Mag-Ox) 400 [...] weekly Smith Munguia DPM documented in this encounterSaint Mary's Hospital of Blue SpringsUjhwvvstmd71-52-7595 NoteUrology Office/Clinic Note Chief Complaint referral- urinary retention- has [...] he found he could not urinate, so [facility]went [facility] ER[facility], they cathed him and filled a [...] Skin: No rashes or suspicious lesions Assessment/Plan 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 Pt has augustin today from [facility] ER on 08/03/24.Previous Dr. Yarbrough pt. 08/03/24 - BUN 31, Cre 2.51, GFR 25 1. Urinary retention (R33.9: Retention of urine, unspecified) 08/03/24 CT abd/pelvis w/o con - stable 4.8mm Bosniak 2 R renal cyst, 3.1, nonobstructive L renal calculus, circumferential thickening of the wall of the urinary bladder Pt here for ER f/u and referral from PCP for urinary retention. Pt went to [facility] ER on 08/03 for inability to urinate and abdominal pain. Pt was found to be severely constipated and had over 600ml urinereturn with augustin placement. Urine was not infected [...] up and would like to go to cheondoism without the large augustin bag. Advised pt we could change it to leg bag today and teach him how to switch to large bag at night. Pt agreeable. Discussed bowel management with patient and not being able to remove foleyuntil he is having regular bowel movements. Pt [...] among others. The patient, after being informed ofprocedural details and after questions have been answered, wishes to proceed. Full informed consenthas been obtained. Will order Local anesthesia. -Augustin [...] E&M of New Patient Moderate 45-59 Min 22353 2. Constipation (K59.00: Constipation, unspecified) 08/03/24 CT abd/pelvis w/o con - large amount of stool within the colon -See #1 Ordered: E&M of New Patient Moderate 45-59 Min 41335 3. 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 Kidney stone (N20.0: Calculus of kidney) 08/03/24 CT abd/pelvis w/o con - 3.1mm nonobstructive L renal calculus Ordered: E&M of New Patient Moderate 45-59 Min 87382 5. Renal cyst (N28.1: Cyst of kidney, acquired) 08/03/24 CT abd/pelvis w/o con - stable 4.8mm Bosniak 2 R renal cyst -BRIDGER in 6-12 months for surveillance Ordered: E&M of (more content not included)...[facility] HospitalComment on above:Result Comment: Electronically Signed By: Elizabeth Stallworth\.gilberto\Date and Time Signed: 09/13/24 15:28 VUH82-03-1710 Hospital Discharge instructions Patient Education 09/10/2024 10:34:28 [...] or stopping your regular medicines. This is especiallyimportant if you are taking diabetes medicines or blood thinners. You may be asked to avoid urinating before coming to the test so that you arrive with a full bladder. Tell a health care provider about: ?Any allergies you have. ?All medicines you are taking, including vitamins, herbs, eye drops, creams, and rtzp-phd-kvwbvrz medicines. ?Whether you are or may be [...] flexible tube (catheter) into your bladder after youurinate. The remaining urine will be removed through [...] bladder will be filled with warm, germ-free (sterile)water. Pressure measurements will be taken: ?As your bladder fills. ?When you feel the need to urinate. ?As your bladder is emptied. You may be asked to cough or bear down to check for leakage. In some cases, your bladder may be filled with a material that shows up on X- rays (contrast material) so that X-ray pictures can [...] (warm compresses) may relieve any discomfort near yoururethra. What do the results mean? Talk with [...] provider. Document Revised: 06/26/2022 Document Reviewed: 05/18/2021 [email or web address] Patient Education 2023 [employer]. 09/10/2024 10:34:17 Cystoscopy Cystoscopy Cystoscopy is a [...] including vitamins, herbs, eye drops, creams, and rtfo-ddt-pkkiipx medicines. Any problems you or family members [...] provider tells you to take them. Taking hlva-bcu-poxxsoh medicines, vitamins, herbs, and supplements. Tests You [...] Follow these instructions at home: Medicines Take iady-hkg-unjngvg and prescription medicines only as told by your health care provider. If you were prescribed an antibiotic medicine, take it as told by your health care provider. Do notstop taking the antibiotic even if you start [...] blood in your urine increases, call your healthcare provider. Follow instructions from your health care provider about eating or drinking restrictions. If a tissue sample was removed for testing (biopsy) during your procedure, it is up to you to get your test results. Ask your health care provider, or the department that is doing the test, when yourresults will be ready. Drink enough fluid to [...] blood in your urine increases, call your healthcare provider. If you were prescribed an antibiotic medicine, take it as told by your health care provider. Do notstop taking the antibiotic even if you start to feel better. This information is not intended to replace advice given to you by your health care provider. Make sure you discuss any questions you have with your health care provider. Document Revised: 06/26/2022 Document Reviewed: 05/25/2021 [email or web address] Patient Education 2023 [employer]. [facility] 11-15-2024 NotePatient Education Procedures Urodynamic Testing Urodynamic tests are [...] including vitamins, herbs, eye drops, creams, and dava-lne-rfqylhc medicines. ? Whether you are or may [...] thin, flexible tube (catheter) into your bladder afteryou urinate. The remaining urine will be removed through the catheter so it can be measured. ??? Remaining urine will be measured in milliliters (mL). If you have more than 100 mL left in yourbladder after you urinate, your bladder is not [...] into your bladder and used to empty yourbladder completely. ??? A measuring catheter will be [...] your health care provide (more content not included)...[facility]10-17-2024 Hospital Discharge instructions Patient Education 08/12/2024 09:55:24 Benign Prostatic Hyperplasia Benign Prostatic Hyperplasia Benign prostatic hyperplasia (BPH) is an enlarged prostate gland that is caused by the normal agingprocess. The prostate may get bigger as a man gets older. The condition is not caused by cancer. The prostate is a walnut-sized gland that is involved in the production of semen. It is located in front of the rectum and below the bladder. The bladder stores urine. The urethra carries stored urine ou t of the body. An enlarged prostate can press on the urethra. This can make it harder to pass urine. The buildup of urine in the bladder can cause infection. Back pressure and infection may progress to bladder damage and kidney (renal) failure. What are the causes? This condition is part of the normal aging process. However, not all men develop problems from thiscondition. If the prostate enlarges away from the [...] urethra. Follow these instructions at home: Take sdla-mjg-cncdxat and prescription medicines only as told by [...] provider. Document Revised: 05/01/2022 Document Reviewed: 05/01/2022 [email or web address] Patient Education 2023 [employer]. Follow Up Care 08/09/2024 13:41:59 With:LINNEA PICKARD, Claritza Cee, URL Address: [address] [place], [place] [id number]- When: Unknown Comments:pending fill/pull [facility] 10-17-2024 NotePatient Education Urology Benign Prostatic Hyperplasia Benign prostatic hyperplasia (BPH) is an enlarged prostate gland that is caused by the normal agingprocess. The prostate may get bigger as a man gets older. The condition is not caused by cancer. The prostate is a walnut-sized gland that is involved in the production of semen. It is located in front of the rectum and below the bladder. The bladder stores urine. The urethra carries stored urine ou t of the body. An enlarged prostate can press on the urethra. This can make it harder to pass urine. The buildup of urine in the bladder can cause infection. Back pressure and infection may progress to bladder damage and kidney (renal) failure. What are the causes? This condition is part of the normal aging process. However, not all men develop problems from thiscondition. If the prostate enlarges away from the [...] urine that may remain in your bladder afteryou finish urinating. ? A digital rectal exam. [...] this procedure, a tool is inserted through theopening at the tip of the penis (urethra). [...] procedure uses radio frequencies to destroy and removea small amount of prostate tissue. ? Interstitial laser coagulation (ILC). This procedure uses a laser to destroy and remove a small amount of prostate tissue. ? Transurethral electrovaporization (TUVP). This procedure uses electrodes to destroy and remove a small amount of prostate tissue. ? Prostatic urethral lift. This procedure inserts an implant to push the lobes of the prostate awayfrom the urethra. Follow these instructions at home: ? Take fsfq-pmu-vvpxlue and prescription medicines only as told by [...] You develop side effec (more content not included)...[facility]12-23-2023 Evaluation note* Encounter Date Diagnosis Assessment Notes Treatment Notes Treatment Clinical Notes Sep, Facial swelling (ICD-10 - R22.0) Patient is referred to the emergency room due to failed outpatient therapy of 2 different antibiotics, worsening swelling of his face. [employer] Other 04-14-2022 NoteMR#: [id number] I [facility] Pt. Name: Niels Mccullough Jr [...] who presented to the emergency department at [facility] as a transfer from [...] patient was discharged in stable condition to long-term facility on February 07, 2022. Plan of [...] Yost MD Date Trans: 02/07/2022 12:59 P/mmo [id number] cc: Thee Mcguire D.O. [address] [place] [address] [place] [address] Future Appointments Appointment Date:09/02/2024 08:30:00 AM Scheduled Provider: Location:[facility] Appointment Type:URO Nurse Visit [facility] evaluation + Plan note Future Appointments Appointment Date:09/10/2024 09:30:00 AM Scheduled Provider: Location:[facility] Appointment Type:URO Nurse Visit [facility] evaluation + Plan note Future Appointments Appointment Date:03/11/2025 11:20:00 AM Scheduled Provider:ADRY TYLER PA-C Location:[facility] Appointment Type:URO Office Visit [facility] Evzgimlvim noteNo assessment information available [facility] Work Phone: Evaluation note* Diagnosis Pain due to onychomycosis of toenails of both feet- Primary Xerosis cutis Other specified disease of sebaceous glands Hav (hallux abducto valgus), left Hav (hallux abducto valgus), right [facility] Diagnosis Pain due to onychomycosis of toenails of both feet- Primary [facility]* Diagnosis Xerosis cutis- Primary Other specified disease of sebaceous glands Hav (hallux abducto valgus), left Hav (hallux abducto valgus), right Plantar fasciitis Plantar fascial fibromatosis Heel spur, right [facility] this [facility] Narrative - Reported* Type Description Date Medical History prostatism Medical HistoryHypothyroidismMedical Historychronic depressionMedical History hypertensionSurgical HistoryTONSILLECTOMYSurgical HistoryHEMORRHOIDSSurgical HistoryINGUINAL HERNIA X2 RIGHT AND LEFTSurgical HistoryRIGHT TESTICLE REMOVED/[id number] HistoryCHOLECYSTECTOMY/INFECTIONSurgical History APPENDECTOMYSurgical HistoryPROSTATE TURPSurgical HistoryFEET INGROWN TOENAILS AND WARTSHospitalization HistorySEE ABOVEHospitalization HistoryADMITTED FOR LOW [id number] [employer] Other Hospital course Narrative No data available for this section [facility] No data available for this section [facility] [place] progress note No data available for this section [facility] [place] Summary Purpose Family History No Family History [...] for this section No Family History Records FoundNo Family History [...] section and content) DATE CREATED AUTHOR 09/15/2018 [facility] DATE CREATED AUTHOR AUTHOR'S ORGANIZ ATION 10/03/2018 [facility] DATE CREATED AUTHOR AUTHOR'S ORGANIZ ATION 04/10/2022 [facility] DATE CREATED AUTHOR AUTHOR'S ORGANIZ ATION 03/11/2023 [facility] DATE CREATED AUTHOR AUTHOR'S ORGANIZ ATION 12/05/2023 [facility] DATE CREATED AUTHOR AUTHOR'S ORGANIZ ATION 03/25/2025 [facility] DATE CREATED AUTHOR AUTHOR'S ORGANIZ ATION 09/03/2025 [facility] EPIC Care Teams (unrecognized sec tion and content) Team Status: Active Member Role Status Dates NON STAFF Primary Care Provider Active Team Status: Inactive Member Role Status Dates NON STAFF Primary Care Provider Active Michael Pacheco ProviderActiveTeam MemberRelationshipSpecialty Start DateEnd Date Thee Mcguire MD [facility] [place] [address] PCP - GeneralInternal Medicine11/20/23Team MemberRelationshipSpecialtyStart Date End Date Thee Mcguire MD [address] [place] [address] PCP - GeneralInternal Medicine11/20/23Team MemberRelationshipSpecialtyStart Date End Date Thee Mcguire MD [facility] [place] [address] PCP - GeneralInternal Medicine11/20/23Team MemberRelationshipSpecialtyStart Date End Date Thee Mcguire MD [facility] [place] [address] PCP - GeneralInternal Medicine11/20/23Team MemberRelationshipSpecialtyStart Date End Date Thee Mcguire MD [facility] [place] [address] PCP - GeneralInternal Medicine11/20/23Team MemberRelationshipSpecialtyStart Date End Date Thee Mcguire MD [address] [facility] [place] [address] PCP - GeneralInternal Medicine11/20/23Team MemberRelationshipSpecialtyStart Date End Date Thee Mcguire MD [address] [place] [address] PCP - GeneralInternal Medicine11/20/23 Goals (unrecognized section and content) Goals may be documented in a n alternate sectionNo Information No data available for this section No data available for this section No data available for this section No data available for this section No data available for this section No data available for this section REASON FOR VISIT (unrecogniz ed section and content) ReasonCommentsToenail CareReasonCommentsToenail CareNon dm nail careReason CommentsToenail ProblemNon dm nail careReasonCommentsHeel Pain FOR RECORDS PERTAINING TO PATIENTS WHO ARE [...] BE BASED ON THE PRIMARY CLINICAL RECORDS. [facility] [facility]. provides no warranty or guarantee of the accuracy or completeness of information in this document.
--- OUTSIDE RECORDS SUMMARY | 2025-09-11 19:18 | XMS_ITS | Clinical Summary ---
Author Organization [facility] Address [address] [place] [address] Care Team Providers Care Package Drier Name Role Phone Thee Burdick MD Primary Care Provider + [phone] Allergies Active AllergyReactionsCriticalityNoted ZesaPzinopwuLinjcwmMeayXyk89/25/2024 AzstilignaXahoKxk10/25/9506HdffhzmNinadux95/25/5978YglbhtqcexjtBaacprc93/25/2024 TobbevxtqocfXjikdzd66/25/6808EmbvzyiuettagjMvemnxg17/25/2024MinocyclineUnknown 11/20/2023enicillin LQcjteqd55/25/2024Sulfamethoxazole-TrimethoprimUnknown 11/20/20235210UfujmnfvolqvXrzekkn43/25/2024 Medications MedicationSigDispense QuantityRefillsLast FilledStart DateEnd DateStatus baclofen (Lioresal) 10 MG tablet Take 10 mg by mouth at qgvolsf8610/31/2023ctive carvedilol (Coreg) 6.25 MG tablet Take 6.25 mg by mouth in the morning.Active DULoxetine (Cymbalta) [address] capsule Take 60 mg by mouth in the morning.Active dutasteride (Avodart) 0.5 MG capsule Take 0.5 mg by mouth in the morning.08/28/2023ctive furosemide (Lasix) 40 MG tablet Take 40 mg by mouth in the morning.11/12/2023ctive hydrALAZINE (Apresoline) 100 MG tablet take 1 tablet by mouth twice a day (HOLD IF BP IS LESS THAN 110)09/16/2023ctive polyethylene glycol, PEG, 3350 (MiraLax) 17 g packet 1 (one) time each day at the same timeActive montelukast (Singulair) 10 MG tablet Take 10 mg by mouth in the morning.Active pantoprazole (ProtoNix) 40 MG EC tablet Take 40 mg by mouth in the morning.Active magnesium oxide (Mag-Ox) 400 (240 Mg) MG tablet Take 400 mg by mouth in the morning.10/28/2023ctive liothyronine (Cytomel) 5 MCG tablet TAKE 4 TABLETS BY MOUTH FRI,WED,AND,FRI, FRI AND 3 TABLETS ,,SATActive Constulose 10 GM/15ML solution TAKE 15 MLS THREE TO FOUR TIMES A DAY11/11/2023ctive Active Problems No known active problems Encounters DateTypeDepartmentCare BzjaTykapiiszsy94/06/2025 1:40 PM ESTOffice Visit [facility] [address] [address] [place] [phone] Smith Collier DPM Xerosis cutis (Primary Dx); Hav (hallux abducto valgus), left; Hav (hallux abducto valgus), right; Plantar fasciitis; Heel spur, right09/01/2025amboo flowsheet [facility] [address] [address] [place] [phone] Smith Collier DPM 09/01/20257595Apjfzt04/18/2025 9:30 AM EDTProcedure Visit [facility] [address] [address] [place] [phone] Smith Collier DPM Pain due to onychomycosis of toenails of both feet (Primary Dx)07/14/2025amboo flowsheet [facility] [address] [address] [place] [phone] Smith Collier DPM 07/14/2025Travelfrom Last 3 Months Family History Medical HistoryRelationNameCommentsHeart diseaseFatherHeart diseaseMother RelationNameStatusCommentsFatherDeceasedMotherDeceased Social History Tobacco UseTypesPacks/DayYears UsedDateSmoking Tobacco: NeverSmokeless Tobacco: Never Tobacco Cessation:Counseling Given: Yes Alcohol UseStandard Drinks/WeekCommentsDefer0 (1 standard drink = 0.6 oz pure alcohol)Sex and Gender InformationValueDate RecordedSex Assigned at BirthNot on fileLegal BulNcne7601/08/2023 6:51 PM EDTGender IdentityNot on fileSexual OrientationNot on file Last Filed Vital Signs Vital SignReadingTime TakenCommentsBlood Utxybevp795/8308 3:08 PM EDT Ufasz437806/10/2024 3:08 PM EDTTemperature--Respiratory Ltzz044311/01/2024 12:55 PM ESTOxygen Saturation--Inhaled Oxygen Concentration--Gpdaly21.7 kg (200 lb) 09/01/2025 12:55 PM FQEWhnlyh359.4 cm (6' 1 )09/01/2025 12:55 PM ESTBody Mass Index26.39111/01/2024 12:55 PM EST Plan of Treatment DateTypeDepartmentCare Team (Latest Contact Info)Ispmjabzggt67/20/2025 11:00 AM ESTOffice Visit [facility] [address] [facility] [address] [place] [address] Smith Collier DPM [address] [address] 10/13/2025 9:30 AM ESTProcedure Visit [facility] [address] [facility] [address] [place] [address] Smith Collier DPM [address] [address] Health MaintenanceDue DateLast DoneCommentsPneumococcal Vaccine: 65+ Years (2 of 2 - PCV20 or PCV21)COVID-19 Vaccine ( - 2024- season) 5110/27/2020, 12/26/2020, 11/29/2020Influenza Vaccine (#1)2025 08/06/2022, 08/17/2018, 03/14/2017, Additional history exists Insurance Care Teams Team MemberRelationshipSpecialtyStart DateEnd Date Thee Burdick MD [address] [place] [address] PCP - GeneralInternal Medicine11/20/23
--- OUTSIDE RECORDS SUMMARY | 2025-09-11 19:18 | XMS_ITS | Clinical Summary ---
Author Organization [facility] Address [address] [place] [address] Care Team Providers Care Wad Compressor Operator Adjuster Name Role Phone Unavailable Primary Care Provider Unavailabl e Social History Tobacco UseTypesPacks/DayYears UsedDateSmoking Tobacco: Never AssessedSex and Gender InformationValueDate RecordedSex Assigned at BirthNot on fileLegal Sex Male09/27/2012 8:30 AM ESTGender IdentityNot on fileSexual OrientationNot on file Plan of Treatment Health MaintenanceDue DateLast DoneCommentsAnxiety Mpukzjvba59/02/1965Depression Idarmrqff48/02/1965Hepatitis C Ntweswkvb29/02/1965DTaP,Tdap,Td Vaccine (1 - Tdap)1965Diabetes Cpfxfhneq02/02/1992Pneumococcal Vaccine: 50+ (1 of 1 - PCV)1996Shingrix Vaccine (1 of 2)1996RSV Vaccine (1 - 1-dose 75+ series)2021dvance Directive Orpptmzzqb90/01/2025ovid-19 Vaccine (1 - 2024-26 season)2025Influenza Vaccine (#1)2025 Insurance
--- OUTSIDE RECORDS SUMMARY | 2025-09-11 19:18 | XMS_ITS | Encounter Summary ---
Author Organization [facility] Address [address] [place] [address] Care Team Providers Care Supervisor [employer] Dietary Service Name Role Phone Thee Burdick MD Primary Care Provider + [phone] Encounter Details DateTypeDepartmentCare Team (Latest Contact Info)Ojujpzcjkyn47/06/2025amboo flowsheet [facility] [address] [address] Smith Collier, DPM [address] [address] Social History Tobacco UseTypesPacks/DayYears UsedDateSmoking Tobacco: NeverSmokeless Tobacco: NeverAlcohol UseStandard Drinks/WeekCommentsDefer0 (1 standard drink = 0.6 oz pure alcohol)Sex and Gender InformationValueDate RecordedSex Assigned at Not on fileLegal NqfUgkt5901/08/2023 6:51 PM EDTGender IdentityNot on fileSexual OrientationNot on filedocumented as of this encounter Plan of Treatment DateTypeDepartmentCare Team (Latest Contact Info)Yudmqvhgonv03/20/2025 11:00 AM ESTOffice Visit [facility] [address] [address] Smith Collier DPM [address] [address] 10/13/2025 9:30 AM ESTProcedure Visit [facility] [address] [place] [address] [place] [address] [place] [address] Smith Collier, DPLane 3[address] [facility] [address] [place] [address] documented as of this encounter Visit Diagnoses Not on filedocumented in this encounter Care Teams Team MemberRelationshipSpecialtyStart DateEnd Date Thee Burdick MD [facility]3 [place] [address] PCP - GeneralInternal Medicine11/20/23documented as of this encounter
--- OUTSIDE RECORDS SUMMARY | 2025-09-11 19:18 | XMS_ITS | Clinical Summary ---
Author Organization [employer] Address [id number] [address] [place] [address] Care Team Providers Care Space And Missile Operations Spacelift Name Role Phone Heavenly Garza DO, Charles L Primary Care Provider Allergies Active AllergyReactionsCriticalityNoted PupzIjxblcnxDbvaqhh45/03/2019Codeine 05/29/20196607Hkuzsudvbbmp54/03/0375Wyapqnhbxg31/03/2012Imhzalpmyfx58/03/2019 Wkkipysmbtpc79/03/2019 Medications MedicationSigDispense QuantityRefillsLast FilledStart DateEnd DateStatus docusate sodium 100 mg capsule Take 100 mg by mouth daily.Active tamsulosin (FLOMAX) 0.4 mg capsule Take 0.4 mg by mouth daily.Active ALPRAZolam (XANAX) 1 mg tablet Take 1 mg by mouth 3 (three) times a day as needed.Active polyethylene glycol (MIRALAX) 17 gram packet Take 17 g by mouth 2 (two) times a day. PRNActive memantine (NAMENDA) 10 mg tablet Take 10 mg by mouth 2 (two) times a day.Active DULoxetine (CYMBALTA) 60 mg capsule Take 60 mg by mouth daily.Active montelukast (SINGULAIR) 10 mg tablet Take 10 mg by mouth nightly.Active clopidogrel (PLAVIX) 75 mg tablet Take 75 mg by mouth daily.Active pantoprazole (PROTONIX) 40 mg EC tablet Take 40 mg by mouth daily.Active cholecalciferol, vitamin D3, 2,000 units capsule Take 2,000 Units by mouth daily.Active calcium carbonate (OS-JEANNINE) 600 mg (1,500 mg) tablet Take 600 mg by mouth 2 (two) times a day with meals.Active ferrous sulfate 325 (65 FE) mg tablet Take 65 mg by mouth daily with breakfast.Active furosemide (LASIX) 40 mg tablet Take by mouth daily. ONLY TO TAKE IF WEIGHT GAIN OF 3 LBS. PT HAS TAKEN IT TODAY BUT DID NOT TAKE IT FOR A MONTH PRIORActive Active Problems ProblemNoted DateDiagnosed DateDepression, major, recurrent, mild06/02/2019 Muicwln2306/02/2019Congestive heart failure (CHF)05/29/2019Long term (current) use of dyyerryyrzgtni84/16/2019Deep venous thrombosis of lower ohrdxbvzi50/16/2019 Family History Medical HistoryRelationNameCommentsHeart diseaseFatherHeart diseaseMotherHeart failureMotherRelationNameStatusCommentsFatherDeceasedMotherDeceased Social History Tobacco UseTypesPacks/DayYears UsedDateSmoking Tobacco: NeverSmokeless Tobacco: NeverAlcohol UseStandard Drinks/WeekCommentsNot Currently0 (1 standard drink = 0.6 oz pure alcohol)ChildcareAnswerDate KfqfcrtmCrnqxgphcPjbfekc34/12/2019 EmploymentAnswerDate LmszmavzKjnejibxawKsrvcyy47/12/2019Purpose - LifeAnswerDate RecordedPurpose and direction in wmkiJkglsas74/11/2021Sex and Gender Information ValueDate RecordedSex Assigned at BirthNot on fileLegal HbkZwez6706/01/2015 11:30 AM EDTGender IdentityNot on fileSexual OrientationNot on file Last Filed Vital Signs Vital SignReadingTime TakenCommentsBlood Zkhusnau560/7003 8:35 PM EST Eyqhs082712/31/2019 8:35 PM GEPWpreqonisdw82.2 ??C (98.9 ??F)12/31/2019 6:09 PM ESTRespiratory Znlk955612/31/2019 8:35 PM ESTOxygen Lbddpvouom81%12/31/2019 8:35 PM ESTInhaled Oxygen Concentration--Hquxmu75.6 kg (177 lb 11.2 oz)07/09/2019 6:45 PM XNYVwqtcs859.4 cm (6' 1 )07/09/2019 6:45 PM EDTBody Mass Index23.44 07/09/2019 6:45 PM EDT Plan of Treatment Health MaintenanceDue DateLast DoneCommentsDepression Xdprkwhld00/02/1959Tobacco Trmuixrmp97/02/1959DTaP,Tdap and Td Vaccines (1 - Tdap)1965Fall Risk Erbqltajd97/02/2012Zoster (Shingles) Vaccine (2 of 3)RSV ( or age 60+ yrs) (1 - 1-dose 75+ series)2021Influenza Vaccine 06/27/2025 [employer] Not on file Insurance Advance Directives * Full Code (Latest Code Status on File) Date ActivatedDate InactivatedComments05/30/2019 12:28 PM06/03/2019 7:11 PM Care Teams Team MemberRelationshipSpecialtyStart DateEnd Date Thee Burdick Jr., [address] [place] [address] PCP - GeneralInternal Medicine02/23/19
--- OUTSIDE RECORDS SUMMARY | 2025-09-11 19:18 | XMS_ITS | Encounter Summary ---
Author Organization [facility] Address [address] [place] [address] Care Team Providers Care Manager Library Name Role Phone Thee Burdick MD Primary Care Provider + [phone] Encounter Details DateTypeDepartmentCare Team (Latest Contact Info)Fixsaiigqen30/06/2025Travel Social History Tobacco UseTypesPacks/DayYears UsedDateSmoking Tobacco: NeverSmokeless Tobacco: NeverAlcohol UseStandard Drinks/WeekCommentsDefer0 (1 standard drink = 0.6 oz pure alcohol)Sex and Gender InformationValueDate RecordedSex Assigned at Not on fileLegal TagDopf4001/08/2023 6:51 PM EDTGender IdentityNot on fileSexual OrientationNot on filedocumented as of this encounter Plan of Treatment DateTypeDepartmentCare Team (Latest Contact Info)Eiueuimaxsi69/20/2025 11:00 AM ESTOffice Visit [facility] [address] [phone] Smith Collier DPM [address] [address] 10/13/2025 9:30 AM ESTProcedure Visit [facility] [address] [address] Smith Collier DPM [address] [address] documented as of this encounter Visit Diagnoses Not on filedocumented in this encounter Care Teams Team MemberRelationshipSpecialtyStart DateEnd Date Thee Burdick MD [facility] [place] [address] PCP - GeneralInternal Medicine11/20/23documented as of this encounter
--- NOTE | 2025-09-11 19:22 | ED.GENADUL1 ---
HPI HPI - General Adult General Chief complaint: Chest Pain Stated complaint: CHEST PAIN Time Seen by Provider: 09/11/25 18:58 Source: patient, EMR and medical record Mode of arrival: ambulance Limitations: no limitations History of Present Illness HPI narrative: 79-year-old male presents for chest pain. On the right side of his chest and is been there continuously since 3:00, about 4 hours ago. No trauma or fever or cough or complaints of shortness of breath. No abdominal pain or vomiting. He has a remote history of CHF and states he has never had a heart attack. He states he had a heart catheterization but does not have any stents. Related Data Home Medications ?Medication ?Instructions ?Recorded ?Confirmed carvedilol 6.25 mg tablet 6.25 mg PO DAILY 06/02/23 12/25/24 duloxetine 60 mg capsule,delayed 60 mg PO QAM 06/02/23 12/25/24 release dutasteride 0.5 mg capsule 0.5 mg PO DAILY 06/02/23 12/25/24 liothyronine 5 mcg tablet 5 mcg PO DAILY 06/02/23 12/25/24 magnesium oxide 400 mg (241.3 mg 400 mg PO DAILY 06/02/23 12/25/24 magnesium) tablet montelukast 10 mg tablet 10 mg PO DAILY 06/02/23 12/25/24 pantoprazole 20 mg tablet,delayed 20 mg PO DAILY 06/02/23 12/25/24 release rosuvastatin 5 mg tablet 5 mg PO DAILY 06/02/23 12/25/24 tamsulosin 0.4 mg capsule 0.4 mg PO BID 06/02/23 12/25/24 furosemide 40 mg tablet 40 mg PO DAILY 11/28/23 12/25/24 trazodone 50 mg tablet 50 mg PO BEDTIME 03/21/24 12/25/24 hydralazine 100 mg tablet 100 mg PO BID 12/25/24 12/25/24 Previous Rx's ?Medication ?Instructions ?Recorded hydroxyzine HCl 25 mg tablet 25 mg PO TID PRN itching #20 tabs 05/25/23 azithromycin 250 mg tablet See Rx Instructions PO .COMPLEX #6 12/25/24 tabs Allergies Allergy/AdvReac Type Severity Reaction Status Date / Time aspirin Allergy Unknown Unknown Verified 09/11/25 18:45 cephalexin (From Keflex) Allergy Unknown Unknown Verified 09/11/25 18:45 codeine Allergy Unknown Unknown Verified 09/11/25 18:45 indomethacin (From Indocin) Allergy Unknown Unknown Verified 09/11/25 18:45 metoclopramide (From Reglan) Allergy Unknown Unknown Verified 09/11/25 18:45 minocycline Allergy Unknown Unknown Verified 09/11/25 18:45 Penicillins Allergy Unknown Unknown Verified 09/11/25 18:45 Sulfa (Sulfonamide Allergy Unknown Unknown Verified 09/11/25 18:45 Antibiotics) tetracycline Allergy Unknown Unknown Verified 09/11/25 18:45 erytromycin ethylsuccinate Allergy Unknown Unknown Uncoded 09/11/25 18:45 Opioid HPI Opioid Management Most Recent Opioid Data: Last Pain Scale 7 Today, 18:57 Review of Systems ROS Narrative A ten point review of systems is negative except as noted above. PFSH PFSH Social History Smoking status: Never smoker Little interest or pleasure in doing things: not at all Feeling down, depressed, or hopeless: not at all Exam Narrative Exam Narrative: Nurses note and vital signs reviewed General:The patient appears well and in no apparent distress.Patient is resting comfortably on cart. Skin:Warm, dry, no pallor noted.There is no rash noted. Head:Normocephalic, atraumatic Eye: Normal conjunctiva, no drainage Ears, Nose, Mouth, and Throat: oral mucosa is moist. Nares patent. Cardiovascular:Regular Rate and Rhythm Respiratory:Patient is in no distress, no accessory muscle use, lungs are clear to auscultation, no wheezing, rales or rhonchi Back:non-tender GI: Soft nontender including the right upper quadrant. Musculoskeletal: The patient has no evidence of calf tenderness, no pitting edema, symmetrical pulses noted bilaterally Neurological:A&O, normal speech Psychiatric:Cooperative Constitutional Vital Signs, click to edit/add: Last Vital Signs Temp 98.3 F 09/11/25 18:46 Pulse 70 09/11/25 21:03 Resp 16 09/11/25 21:03 BP 170/88 H 09/11/25 21:03 Pulse Ox 98 09/11/25 21:03 O2 Del Method Room Air 09/11/25 21:03 Course Vital Signs Vital signs: Vital Signs Temperature 98.3 F 09/11/25 18:46 Pulse Rate 61 09/11/25 18:46 Respiratory Rate 16 09/11/25 18:46 Blood Pressure 180/92 H 09/11/25 18:46 Pulse Oximetry 98 09/11/25 18:46 Oxygen Delivery Method Room Air 09/11/25 18:46 Temperature 98.3 F 09/11/25 18:46 Pulse Rate 70 09/11/25 21:03 Respiratory Rate 16 09/11/25 21:03 Blood Pressure 170/88 H 09/11/25 21:03 Pulse Oximetry 98 09/11/25 21:03 Oxygen Delivery Method Room Air 09/11/25 21:03 Medical Decision Making MDM Narrative Medical decision making narrative: His workup including 2 sets of troponin is negative. CTA shows no evidence of PE. Radiologist suggested the possibility of mild interstitial prominence of ground glass opacity raising the possibility of edema but he has got no shortness of breath and clinically I have no clinical suspicion of CHF or pulmonary edema. He will be discharged home and he will follow-up with his doctor, he has an appointment in 4 days. Treatment diagnosis and follow-up were discussed with the patient. Differential Diagnosis Differential Diagnosis: [place], PE, pneumothorax, pneumonia Lab Data Lab results reviewed: Yes I reviewed the patient's lab results Labs: Lab Results 09/11/25 09/11/25 Range/Units 18:50 19:34 WBC 6.4 (4.0-11.0) 10^3/uL RBC 2.98 L (4.70-6.10) 10^6/uL Hgb 9.4 L (14.0-18.0) g/dL Hct 28.5 L (42.0-54.0) % MCV 95.6 H (80.0-94.0) fL MCH 31.5 (25.9-34.0) pg MCHC 33.0 (29.9-35.2) g/dL RDW 16.6 H (11.0-15.0) % Plt Count 141 L (150-450) 10^3/uL MPV 9.9 (9.5-13.5) fL Neut % (Auto) 64.7 (43.0-75.0) % Lymph % (Auto) 20.8 (20.5-60.0) % Ocean % (Auto) 8.8 (1.7-12.0) % Eos % (Auto) 5.2 (0.9-7.0) % Baso % (Auto) 0.3 (0.2-2.0) % Neut # (Auto) 4.1 (1.4-6.5) 10^3/uL Lymph # (Auto) 1.3 (1.2-3.8) 10^3/uL Ocean # (Auto) 0.6 (0.3-0.8) 10^3/uL Eos # (Auto) 0.3 (0.0-0.7) 10^3/uL Baso # (Auto) 0.0 (0.0-0.1) 10^3/uL Abs Immat Gran (auto) 0.01 (0.00-0.03) 10^3/uL Imm/Tot Granulo (auto) 0.2 (0.0-0.5) % D-Dimer 0.63 H* (<=0.59) mg/L FEU Sodium 139 (136-145) mmol/L Potassium 3.6 (3.5-5.1) mmol/L Chloride 102 (98-107) mmol/L Carbon Dioxide 27.7 (21.0-32.0) mmol/L Anion Gap 12.9 BUN 28.0 H (7.0-18.0) mg/dL Creatinine 1.88 H (0.70-1.30) mg/dL Est GFR ( Amer) 42 L (>=60 mL/min/1.73m^2) Est GFR (Non-Af Amer) 35 L (>=60 mL/min/1.73m^2) BUN/Creatinine Ratio 14.9 Glucose 121 H (74-106) mg/dL Calcium 8.7 (8.5-10.1) mg/dL Total Bilirubin 0.2 (0.2-1.0) mg/dL Direct Bilirubin 0.1 (0.0-0.2) mg/dL AST 11 L (15-37) U/L ALT 14 L (16-63) U/L Alkaline Phosphatase 85 (46-116) U/L Troponin I High Sens 18.4 18.9 (4.0-76.1) pg/mL NT-Pro-B Natriuret Pep 1610.0 (<=1800.0) pg/mL Total Protein 6.6 (6.4-8.2) g/dL Albumin 3.3 L (3.4-5.0) g/dL Globulin 3.3 g/dL Albumin/Globulin Ratio 1.0 Amylase 23 L (25-115) U/L Lipase 19.0 (16.0-77.0) U/L Imaging Data CT scan - chest: Radiologist's impression: No pulmonary embolus Discharge Plan Discharge Chief Complaint: Chest Pain Clinical Impression: Chest pain Patient Disposition: Home, Self-Care Time of Disposition Decision: 21:37 Condition: Good Mode of Transportation: Private Vehicle Prescriptions / Home Meds: No Action trazodone 50 mg tablet 50 mg PO BEDTIME hydroxyzine HCl 25 mg tablet 25 mg PO TID PRN (Reason: itching) Qty: 20 0RF carvedilol 6.25 mg tablet 6.25 mg PO DAILY duloxetine 60 mg capsule,delayed release(DR/EC) 60 mg PO QAM dutasteride 0.5 mg capsule 0.5 mg PO DAILY liothyronine 5 mcg tablet 5 mcg PO DAILY magnesium oxide 400 mg (241.3 mg magnesium) tablet 400 mg PO DAILY montelukast 10 mg tablet 10 mg PO DAILY pantoprazole 20 mg tablet,delayed release (DR/EC) 20 mg PO DAILY rosuvastatin 5 mg tablet 5 mg PO DAILY tamsulosin 0.4 mg capsule 0.4 mg PO BID furosemide 40 mg tablet 40 mg PO DAILY hydralazine 100 mg tablet 100 mg PO BID azithromycin 250 mg tablet See Rx Instructions .ROUTE .COMPLEX Qty: 6 0RF Rx Instructions: For 250 mg dose pack: take 500 mg today (day 1), then 250 mg for 4 days (days 2-5) Print Language: Malawian Instructions: Chest Pain (ED) Referrals: TAHIR MCGUIRE DO [Primary Care Provider, Family Practice] - 1 week
[2025-09-11 19:26] LABS: Anion Gap 12.9; Blood Urea Nitrogen 28.0 mg/dL (7.0-18.0); Calcium 8.7 mg/dL (8.5-10.1); Carbon Dioxide 27.7 mmol/L (21.0-32.0); Chloride 102 mmol/L (98-107); Estimated GFR (African America 42 (>=60 mL/min/1.73m^2); Estimated GFR (Non-African Ame 35 (>=60 mL/min/1.73m^2); Glucose 121 mg/dL (74-106); NT Pro B Type Natriuretic Pept 1610.0 pg/mL (<=1800.0); Potassium 3.6 mmol/L (3.5-5.1); Sodium 139 mmol/L (136-145)
[2025-09-11 20:27] LABS: Alanine Aminotransferase 14 U/L (16-63); Albumin Globulin Ratio 1.0; Albumin Level 3.3 g/dL (3.4-5.0); Alkaline Phosphatase 85 U/L (46-116); Amylase 23 U/L (25-115); Aspartate Amino Transferase 11 U/L (15-37); Globulin 3.3 g/dL; Lipase 19.0 U/L (16.0-77.0); Total Protein 6.6 g/dL (6.4-8.2)
[2025-09-11 21:03] VITALS: BP 170/88; PULSE 70; O2SAT 98
== END 2025-09-11 22:09 | disposition home or self-care (01) ==
PROVIDERS: Emergency Medicine; Emergency Provider Emergency Medicine; PCP Internal Medicine
DX: R07.9 Chest pain, unspecified (principal); I50.9 Heart failure, unspecified
CPT/HCPCS: 36415; 71045; 71275; 80048; 80076; 82150; 83690; 83880; 84484; 85025; 85378; 93005; 99285; Q9967